=== PATIENT | female | born 1960 | race Caucasian/White ===

== ENCOUNTER 2018-07-21 08:32 | Emergency (ER) | payer BC ==
--- OUTSIDE RECORDS SUMMARY | 2018-07-21 08:48 | XMS REPORT | Clinical Summary ---
:1960 Author Organization [facility] Address [address] [place] [address] Care Team Providers Name Role Phone Joshua Garcia MD Primary Care Provider Allergies Active Allergy Reactions Severity Noted Date Comments Cephalosporins Anaphylaxis High 03/02/2016 Most likely Keflex 500mg per patient. Facial rash, hives, admitted to ICU Codeine Itching 03/02/2016 Latex 01/22/2017 blisters Eszopiclone 01/22/2017 Metallic taste in mouth, tachycardia Penicillins Rash Low 03/02/2016 Tetracycline Anaphylaxis High 03/02/2016 Current Medications Prescription Sig. Disp. Refills Start Date End Date Status zolpidem (AMBIEN) 10 mg Take 10 mg by Active tablet mouth nightly as needed for sleep. zolpidem 10 mg tablet traZODone (DESYREL) 100 Take 150 mg by Active MG tablet mouth nightly. traMADol (ULTRAM) 50 mg Take 50 mg by Active tablet mouth every 6 (six) hours as needed for moderate pain. tiotropium (SPIRIVA) 18 Place 1 capsule Active mcg per inhalation into inhaler and capsule inhale daily as needed. montelukast (SINGULAIR) Take 10 mg by Active 10 mg tablet mouth every evening. dexmethylphenidate Take 20 mg by Active (FOCALIN) 10 MG tablet mouth daily. At 2pm buPROPion XL (WELLBUTRIN Take 150 mg by Active XL) 300 MG 24 hr tablet mouth every morning. ursodiol (ACTIGALL) 300 Take 300 mg by 1 02/21/2016 Active mg capsule mouth 2 (two) times a day. ARIPiprazole (ABILIFY) 5 Take 5 mg by Active MG tablet mouth daily. clonAZEPAM (KlonoPIN) 1 Take 1 mg by Active MG tablet mouth 2 (two) times a day as needed for anxiety. dexmethylphenidate XR Take 40 mg by Active (FOCALIN XR) 40 mg 24 hr mouth every capsule morning. DULoxetine (CYMBALTA) 60 Take 60 mg by Active MG capsule mouth daily. fluticasone (FLONASE) 50 2 sprays by Each Active mcg/actuation nasal Nare route spray daily. hydroxychloroquine Take 200 mg by Active (PLAQUENIL) 200 mg mouth 2 (two) tablet times a day. levothyroxine Take 100 mcg by Active (SYNTHROID, LEVOXYL) 100 mouth every mcg tablet evening. 50mg omeprazole (PriLOSEC) 40 Take 40 mg by Active MG capsule mouth daily. sulfamethoxazole-trimeth Take 1 tablet by Active oprim (BACTRIM SS) mouth 2 (two) 400-80 mg per tablet times a day with meals. BYSTOLIC 10 mg tablet 5 mg daily. Pt 5 03/11/2017 Active was prescribed 10 mg but when pressure or heart rate is low pt takes 5 mg prazosin (MINIPRESS) 1 1 mg. 3x nightly 1 03/11/2017 Active MG capsule SODIUM OXYBATE (XYREM Take by mouth. Active ORAL) azithromycin (ZITHROMAX) Take 1 packet (1 1 packet 0 08/15/2017 1 gram powder g total) by 7 mouth once for 1 dose. hydrocortisone Insert into the 30 g 0 09/26/2017 (PROCTOZONE-HC) 2.5 % rectum 2 (two) 7 rectal cream times a day for 10 days. 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 PTSD (post-traumatic stress disorder) 03/08/2016 HLD (hyperlipidemia) 03/08/2016 Hypertension 03/02/2016 Hypothyroidism 03/02/2016 GERD (gastroesophageal reflux disease) Encounters Date Type Specialty Care Team Description 11/24/2017 Emergency Emergency Medicine 09/26/2017 Office Visit General Surgery Alagugurusamy, Internal hemorrhoids without complication (Primary Dx); Key Hickey, Condyloma acuminata INTEGRATION TECHNICIAN-C 08/15/2017 Office Visit General Surgery Ceja, Noe Internal hemorrhoids without complication (Primary Dx); MD Daniel Condyloma acuminata; Alagugurusamy, Drug-induced constipation Key Hickey, INTEGRATION TECHNICIAN-C 08/01/2017 Telephone Cardiology Carroll Avendano MA Results (holter monitor) 07/25/2017 Office Visit Cardiology Royce Escobar MD Palpitations ( Primary Dx) after 07/20/2017 Family History Medical History Relation Name Comments Drug abuse Brother Tee Tomas Cancer Father Lupillo tomas Diabetes Maternal Grandfather VERONA Depression Mother [place] COPD Paternal Grandfather Lupillo D Kevin Hypertension Paternal Grandmother Syeda Tomas Relation Name Status Comments Brother Tee Tomas Father Lupillo tomas Maternal Grandfather VERONA Mother [place] Paternal Grandfather Lupillo Evelio Kevin Paternal Grandmother Syeda Tomas Social History Tobacco Use Types Packs/Day Years Used Date Never Smoker Alcohol Use Drinks/Week oz/Week Comments No Sex Assigned at Date Recorded Not on file Last Filed Vital Signs Vital Sign Reading Time Taken Blood Pressure 159/118 11/24/2017 4:44 PM CLERICAL ADMINISTRATIVE ASSISTANT Pulse 102 11/24/2017 4:44 PM CLERICAL ADMINISTRATIVE ASSISTANT Temperature 37.1 C (98.7 F) 11/24/2017 4:44 PM CLERICAL ADMINISTRATIVE ASSISTANT Respiratory Rate 16 11/24/2017 4:44 PM CLERICAL ADMINISTRATIVE ASSISTANT Oxygen Saturation 99% 11/24/2017 4:44 PM CLERICAL ADMINISTRATIVE ASSISTANT Inhaled Oxygen Concentration - - Weight 89.8 kg (198 lb) 07/25/2017 9:12 AM CDT Height 170.2 cm (5' 7") 11/24/2017 4:44 PM CLERICAL ADMINISTRATIVE ASSISTANT Body Mass Index 31.01 07/25/2017 9:12 AM CDT Plan of Treatment Date Type Specialty Care Team Description 07/24/2018 Office Visit Cardiology Royce Escobar MD [address] [place], [place] [id number] 09/24/2018 Office Visit General Surgery Noe Ceja MD [address] [place] [address] Health Maintenance Due Date Last Done Comments COLON CANCER SCREENING 2010 SHINGRIX VACCINE (#1) 2010 BREAST CANCER SCREENING 11/10/2015 11/10/2013 CERVICAL CANCER SCREENING 11/10/2016 11/10/2013 INFLUENZA VACCINE 06/10/2018 Procedures Procedure Name Priority Date/Time Associated Comments Diagnosis ESTIMATED GFR STAT 11/24/2017 4:48 Results for this PM CLERICAL ADMINISTRATIVE ASSISTANT procedure are in the results section. PARTIAL THROMBOPLASTIN STAT 11/24/2017 4:48 Results for this TIME (PTT) PM CLERICAL ADMINISTRATIVE ASSISTANT procedure are in the results section. PROTHROMBIN TIME WITH STAT 11/24/2017 4:48 Results for this INR PM CLERICAL ADMINISTRATIVE ASSISTANT procedure are in the results section. COMPREHENSIVE METABOLIC STAT 11/24/2017 4:48 Results for this PANEL PM CLERICAL ADMINISTRATIVE ASSISTANT procedure are in the results section. HC COMPLETE BLD COUNT STAT 11/24/2017 4:48 Results for this W/AUTO DIFF PM CLERICAL ADMINISTRATIVE ASSISTANT procedure are in the results section. ECG 12-LEAD STAT 11/24/2017 4:19 Results for this PM CLERICAL ADMINISTRATIVE ASSISTANT procedure are in the results section. after 07/20/2017 Results Estimated GFR (11/24/2017 4:48 PM) GFR Non Af Amer 51 (A) mL/min/1.73 m2 [facility] DEPARTMENT OF PATHOLOGY AND GENOMIC MEDICINE GFR Af Amer 62 mL/min/1.73 m2 [facility] DEPARTMENT OF Comment: PATHOLOGY AND GENOMIC Chronic kidney disease: <60 mL/min/1.73m2 MEDICINE Kidney failure: <15 mL/min/1.73m2 The estimated GFR is calculated from the IDMS-traceable Modification of Diet in Renal Disease Equation. The accuracy of the calculation is poor when the creatinine is normal. Calculated values >90 mL/min/1.73m2 are not reported. This equation has not been validated in children (<18 years), women, the elderly (>70 years), or ethnic groups other than Caucasians and Americans. Specimen Plasma specimen Performing Organization Address City/[facility] Phone Number [facility] DEPARTMENT OF PATHOLOGY AND [address] [place] [address] Partial thromboplastin time, activated (11/24/2017 4:48 PM) PTT 27.9 23.0 - 36.0 sec [facility] DEPARTMENT OF PATHOLOGY Comment: AND [facility] PTT therapeutic range for unfractionated heparin is 61.0-112.0 seconds which corresponds to Anti-Xa 0.3-0.7 U/ml. Specimen Blood Performing Organization Address City/[facility] Phone Number [facility] DEPARTMENT OF PATHOLOGY AND [address] [place], [place] [phone] [facility] Prothrombin time with INR (11/24/2017 4:48 PM) Prothrombin time 13.5 12.0 - 15.0 sec [facility] DEPARTMENT OF PATHOLOGY AND GENOMIC MEDICINE INR 1.0 [facility] DEPARTMENT OF Comment: PATHOLOGY AND GENOMIC The International Normalized Ratio (INR) is a therapeutic MEDICINE monitoring tool for patients who are stable on oral anticoagulant therapy. An INR of 2.0-3.0 is suggested for deep vein thrombosis/pulmonary embolism. Specimen Blood Performing Organization Address [facility] Phone Number [facility] DEPARTMENT OF PATHOLOGY AND [address] [place] [address] CBC with platelet and differential (11/24/2017 4:48 PM) WBC 7.59 4.50 - 11.00 k/uL [facility] DEPARTMENT OF PATHOLOGY AND GENOMIC MEDICINE RBC 4.24 4.20 - 5.50 m/uL [facility] DEPARTMENT OF PATHOLOGY AND GENOMIC MEDICINE HGB 13.4 12.0 - 16.0 g/dL [facility] DEPARTMENT OF PATHOLOGY AND GENOMIC MEDICINE HCT 40.0 37.0 - 47.0 % [facility] DEPARTMENT OF PATHOLOGY AND GENOMIC MEDICINE MCV 94.3 82.0 - 100.0 fL [facility] DEPARTMENT OF PATHOLOGY AND GENOMIC MEDICINE MCH 31.6 27.0 - 34.0 pg [facility] DEPARTMENT OF PATHOLOGY AND GENOMIC MEDICINE MCHC 33.5 31.0 - 37.0 g/dL [facility] DEPARTMENT OF PATHOLOGY AND GENOMIC MEDICINE RDW - SD 42.8 37.0 - 55.0 fL [facility] DEPARTMENT OF PATHOLOGY AND GENOMIC MEDICINE MPV 10.2 8.8 - 13.2 fL [facility] DEPARTMENT OF PATHOLOGY AND GENOMIC MEDICINE Platelet count 218 150 - 400 k/uL [facility] DEPARTMENT OF PATHOLOGY AND GENOMIC MEDICINE Nucleated RBC 0.00 /100 WBC [facility] DEPARTMENT OF PATHOLOGY AND GENOMIC MEDICINE Neutrophils 64.2 39.0 - 69.0 % [facility] DEPARTMENT OF PATHOLOGY AND GENOMIC MEDICINE Lymphocytes 27.9 25.0 - 45.0 % [facility] DEPARTMENT OF PATHOLOGY AND GENOMIC MEDICINE Monocytes 5.3 0.0 - 10.0 % [facility] DEPARTMENT OF PATHOLOGY AND GENOMIC MEDICINE Eosinophils 1.1 0.0 - 5.0 % [facility] DEPARTMENT OF PATHOLOGY AND GENOMIC MEDICINE Basophils 0.7 0.0 - 1.0 % [facility] DEPARTMENT OF PATHOLOGY AND GENOMIC MEDICINE Immature granulocytes 0.8Comment: 0.0 - 1.0 % [facility] DEPARTMENT OF "Immature PATHOLOGY AND GENOMIC granulocytes" MEDICINE (promyelocytes, myelocytes, metamyelocytes) Specimen Blood Performing Organization Address City/State/Zipcode Phone Number [facility] DEPARTMENT OF PATHOLOGY [address] [address] GENOMIC MEDICINE Comprehensive metabolic panel (11/24/2017 4:48 PM) Sodium 139 135 - 148 mEq/L [facility] DEPARTMENT OF PATHOLOGY AND GENOMIC MEDICINE Potassium 3.7 3.5 - 5.0 mEq/L [facility] DEPARTMENT OF PATHOLOGY AND GENOMIC MEDICINE Chloride 96 (L) 98 - 112 mEq/L [facility] DEPARTMENT OF PATHOLOGY AND GENOMIC MEDICINE CO2 30 24 - 31 mEq/L [facility] DEPARTMENT OF PATHOLOGY AND GENOMIC MEDICINE Anion gap 13 7 - 15 mEq/L [facility] DEPARTMENT OF Comment: PATHOLOGY AND GENOMIC Starting from February , anion gap calculation MEDICINE no longer incorporates potassium. Please note the change. BUN 9 6 - 20 mg/dL [facility] DEPARTMENT OF PATHOLOGY AND GENOMIC MEDICINE Creatinine 1.1 (H) 0.5 - 0.9 mg/dL [facility] DEPARTMENT OF PATHOLOGY AND GENOMIC MEDICINE Glucose 82 65 - 99 mg/dL [facility] DEPARTMENT OF PATHOLOGY AND GENOMIC MEDICINE Calcium 9.8 8.3 - 10.2 mg/dL [facility] DEPARTMENT OF PATHOLOGY AND GENOMIC MEDICINE Protein 8.0 6.3 - 8.3 g/dL [facility] DEPARTMENT OF Comment: PATHOLOGY AND GENOMIC 4.6-7.0 g/dL MEDICINE 1 week 4.4-7.6 g/dL 7 months-1year5.1-7.3 g/dL 1-2 years5.6-7.5 g/dL >3 years6.0-8.0 g/dL 18-150 6.3-8.3 g/dL Albumin 4.1 3.5 - 5.0 g/dL [facility] DEPARTMENT OF PATHOLOGY AND GENOMIC MEDICINE A/G ratio 1.1 0.7 - 3.8 [facility] DEPARTMENT OF PATHOLOGY AND GENOMIC MEDICINE Alkaline phosphatase 122 (H) 35 - 104 U/L [facility] DEPARTMENT OF PATHOLOGY AND GENOMIC MEDICINE AST 26 10 - 35 U/L [facility] DEPARTMENT OF PATHOLOGY AND GENOMIC MEDICINE ALT 23 5 - 50 U/L [facility] DEPARTMENT OF PATHOLOGY AND GENOMIC MEDICINE Total bilirubin 0.4 0.0 - 1.2 mg/dL [facility] DEPARTMENT OF PATHOLOGY AND GENOMIC MEDICINE Specimen Plasma specimen Performing Organization Address City/[facility] Phone Number [facility] DEPARTMENT OF PATHOLOGY AND [address] [place] [address] [facility] ECG 12 lead (11/24/2017 4:19 PM) Ventricular rate 110 [facility] Atrial rate 110 [facility] [place] interval 168 [facility] QRSD interval 76 [facility] QT interval 320 [facility] QTC interval 433 [facility] P axis 1 52 [facility] QRS axis 1 17 [facility] T wave axis 34 [facility] EKG impression Sinus tachycardia-Otherwise normal ECG-In [facility] automated comparison with ECG of 14-FEB-2017 08:57,-Vent. rate has increased BY 43 BPM-Questionable change in QRS axis- Performing Organization Address City/[facility] Phone Number [facility] [place] [place] [address] [place] [address] after 07/20/2017 Insurance Payer Benefit Plan / Group Subscriber ID Type Phone Address BCBS BCBS CHOICE PPO/F[employer]ER[employer] EMPL PPO xxxxxxxxxxxx PPO Home: [id number] [phone] [address]
--- NOTE | 2018-07-21 09:42 | RAD REPORT ---
EXAM DESCRIPTION: CT - Head Brain Wo Cont - 07/21/2018 9:34 am CLINICAL HISTORY: PAIN Headache COMPARISON: No comparisons TECHNIQUE: All CT scans are performed using dose optimization technique as appropriate and may inclu de automated exposure control or mA/KV adjustment according to patient size. FINDINGS: No intracranial hemorrhage, hydrocephalus or extra-axial fluid collection.Mild generalized brain atrophy is present with mild periventricular and deep white matter chronic microvascular ische pradip changes.No areas of brain edema or evidence of midline shift. The paranasal sinuses and mastoids are clear. The calvarium is intact. IMPRESSION: No acute intracranial abnormality.
[2018-07-21 10:02] LABS: Absolute Lymphocytes (CBC) 1.4 K/uL (0.7-4.9); Absolute Monocytes 0.3 K/uL (0.1-1.3); Basophils % 0.3 % (0-1.3); Eosinophils % 0.7 % (0-4.4); Hematocrit 39.2 % (36.0-45.0); MCH 32.2 pg (27.0-35.0); MCV 94.8 fL (80-100); MPV 7.4 fL (7.6-11.3); Monocytes % 4.8 % (3.3-12.3); RBC Red Blood Cell Count 4.13 M/uL (3.86-4.86)
[2018-07-21 10:06] LABS: Protime INR 0.97
--- NOTE | 2018-07-21 10:11 | RAD REPORT ---
EXAM DESCRIPTION: Tracy Single View07/21/2018 9:59 am CLINICAL HISTORY: Chest pain COMPARISON: 2016 FINDINGS: The lungs appear clear of acute infiltrate. The heart is normal size IMPRESSION: No acute abnormalities displayed
[2018-07-21 10:18] LABS: ALT/SGPT 25 U/L (12-78); AST/SGOT 17 U/L (15-37); Albumin 3.8 g/dL (3.4-5.0); Alkaline Phosphatase 89 U/L (45-117); BUN Blood Urea Nitrogen 13 mg/dL (7-18); Bicarbonate 31 mmol/L (21-32); Bilirubin Direct 0.2 mg/dL (0-0.2); Bilirubin Total 0.5 mg/dL (0.2-1.0); CKMB Creatine Kinase MB 1.3 ng/mL (0.3-3.6); Creatine Phosphokinase 159 U/L (26-192); Glucose Level 87 mg/dL (74-106); Magnesium 2.4 mg/dL (1.8-2.4); NT PRO-BNP 22 pg/mL (<125); Potassium 4.3 mmol/L (3.5-5.1); Protein, Total 7.2 g/dL (6.4-8.2); Sodium Level 143 mmol/L (136-145); Troponin (Emerg Dept Use Only) < 0.02 ng/mL (0.0-0.045)
[2018-07-21 10:38] LABS: Urine Blood NEGATIVE (NEG); Urine Glucose NEGATIVE (NEG); Urine Protein NEGATIVE (NEG); Urine pH 8.5 (5.0-7.0)
--- NOTE | 2018-07-21 11:00 | EKG ---
Test Date: 2018-07-21 Test Time: 09:20:00 Movable [employer] Installer: RIANA MEASUREMENT RESULTS: Intervals: Rate: 64 MS: 196 QRSD: 84 QT: 390 QTc: 402 [place]: P: 57 MS: 196 QRS: 20 T: 28 INTERPRETIVE STATEMENTS: Normal sinus rhythm Normal ECG Compared to ECG 11/11/2003 16:34:00 No significant changes Electronically Signed On 07-21-18 10:59:51 CDT by Elliott Moon
--- NOTE | 2018-07-21 12:35 | RAD REPORT ---
EXAM DESCRIPTION: MRI - Brain Wo Cont - 07/21/2018 11:19 am CLINICAL HISTORY: Right numbness COMPARISON: 2011 TECHNIQUE: Axial, sagittal, and coronal magnetic resonance images of the brain were obtained. Contra st was not requested FINDINGS: No abnormal signal is present within the brain. Diffusion-weighted/ADC mapping does not reveal evidence of acute infarction. The ventricles are normal caliber. An extra-axial fluid collection is not present The sinuses and mastoids are clear. IMPRESSION: Unremarkable unenhanced brain MRI
--- NOTE | 2018-07-21 12:49 | EDPHYS ---
Physician Documentation [facility] Name: Lydia Hanson Age: 58 yrs Sex: Female : 1960 Arrival Date: 07/21/2018 Time: 08:37 Bed 6 Private MD: Joshua Garcia ED Physician Cipriano Resendez HPI: 07/21 10:00 This 58 yrs old Female presents to ER via Wheelchair with complaints of pm1 Shoulder Pain, Leg Pain, Facial Swelling. 10:00 The patient presents to the emergency department with right shoulder and right rib pm1 pain, right root pain and numbness, and right facial swelling. Onset: The symptoms/episode began/occurred this morning, at 05:00. Context: occurred at home, occurred while the patient was woke up with pain to right rib shoulder and foot. Associated signs and symptoms: Pertinent negatives: fever, headache, loss of vision, weakness, chest pain, shortness of breath. Patient's baseline: Neuro: alert and fully oriented, Motor: no deficits, Ambulation: walks without assistance, Speech: normal. The patient has not experienced similar symptoms in the past. The patient has not recently seen a physician, the patient's primary care provider is Dr. Garcia. Historical: - Allergies: 09:01 CEPHALOSPORINS; iw 09:01 TETRACYCLINES; iw 09:01 PENICILLINS; iw 09:01 Latex, Natural Rubber; iw - PMHx: 09:55 V-tach; Hypertension; Hyperlipidemia; Thyroid problem; Narcolepsy; Depression; aa5 - PSHx: 09:55 Hysterectomy; Appendectomy; Cholecystectomy; breast augmentation; Carpal Tunnel Repair; aa5 L hand; - Ebola Screening: : Patient negative for fever greater than or equal to 101.5 degrees Fahrenheit, and additional compatible Ebola Virus Disease symptoms Patient denies exposure to infectious person Patient denies travel to an Ebola-affected area in the 21 days before illness onset No symptoms or risks identified at this time. ROS: 10:00 Constitutional: Negative for fever, chills, and weight loss, Eyes: Negative for injury, pm1 pain, redness, and discharge, ENT: Negative for injury, pain, and discharge, Neck: Negative for injury, pain, and swelling, Cardiovascular: Negative for palpitations, and edema, Positive for right lateral righ pain Respiratory: Negative for shortness of breath, cough, wheezing, and pleuritic chest pain, Abdomen/GI: Negative for abdominal pain, nausea, vomiting, diarrhea, and constipation, Back: Negative for injury and pain. 10:00 : Negative for injury, bleeding, discharge, and swelling. 10:00 Skin: Negative for injury, rash, and discoloration. 10:00 MS/extremity: Positive for right foot pain. 10:00 Neuro: Positive for numbness, of the right foot. Exam: 10:00 Constitutional: This is a well developed, well nourished patient who is awake, alert, pm1 and in no acute distress. Head/Face: Normocephalic, atraumatic. Eyes: Pupils equal round and reactive to light, extra-ocular motions intact. Lids and lashes normal. Conjunctiva and sclera are non-icteric and not injected. Cornea within normal limits. Periorbital areas with no swelling, redness, or edema. 10:00 Neuro: Orientation: is normal, Mentation: is normal, Memory: is normal, Cranial nerves: CN II- XII are normal as tested, Cerebellar function: normal finger to nose testing, bilateral, heel to rondon testing is normal, bilateral, Motor: moves all fours, strength is normal, strength is 5/5 in all extremities, Sensation: is normal, no obvious gross deficits. Vital Signs: 09:00 BP 154 / 96; Pulse 64; Resp 16; Temp 98.2; Pulse Ox 100% on R/A; Pain 5/10; iw 10:39 BP 139 / 81; Pulse 63; Resp 16; Pulse Ox 100% on R/A; Pain 5/10; sg 12:06 BP 130 / 79; Pulse 62; Resp 20 S; Pulse Ox 98% on R/A; Pain 3/10; aa5 NIH Stroke Scale Scores: 09:12 NIHSS Score: 1 aa5 10:00 NIHSS Score: 0 pm1 MDM: 08:53 Patient medically screened. pm1 12:45 ED course: Patient was not administered TPA due to patient not having a CVA. Patient pm1 presented to ER after 3 hours of onset of symptoms. 12:47 Data reviewed: vital signs. Data interpreted: Pulse oximetry: on room air is 98 %. pm1 Interpretation: normal. Counseling: I had a detailed discussion with the patient and/or guardian regarding: the historical points, exam findings, and any diagnostic results supporting the discharge/admit diagnosis, lab results, radiology results, the need for outpatient follow up, to return to the emergency department if symptoms worsen or persist or if there are any questions or concerns that arise at home. 07/21 09:10 Order name: Basic Metabolic Panel pm07/21 09:10 Order name: CBC with Diff pm1 07/21 09:10 Order name: Ckmb; Complete Time: 10:20 pm07/21 09:10 Order name: CPK; Complete Time: 10:20 pm07/21 09:10 Order name: LFT's; Complete Time: 10:20 pm07/21 09:10 Order name: Magnesium; Complete Time: 10:20 pm07/21 09:10 Order name: NT PRO-BNP; Complete Time: 10:20 pm07/21 09:10 Order name: PT-INR; Complete Time: 10:20 pm07/21 09:10 Order name: Ptt, Activated; Complete Time: 10:20 pm07/21 09:10 Order name: Troponin (emerg Dept Use Only); Complete Time: 10:20 pm07/21 09:10 Order name: XRAY Chest (1 view); Complete Time: 10:20 pm07/21 09:10 Order name: Basic Metabolic Panel; Complete Time: 10:20 EDMS 07/21 09:10 Order name: CBC with Automated Diff; Complete Time: 10:20 EDMS 07/21 10:12 Order name: Urine Dipstick--Ancillary (enter results); Complete Time: 10:49 bd 07/21 09:10 Order name: EKG; Complete Time: :11 pm07/21 09:10 Order name: Cardiac monitoring; Complete Time: 09:12 pm07/21 09:10 Order name: EKG - Nurse/Tech; Complete Time: :22 pm07/21 09:10 Order name: IV Saline Lock; Complete Time: :30 pm07/21 09:10 Order name: Labs collected and sent; Complete Time: 09:30 pm1 07/21 09:10 Order name: O2 Per Protocol; Complete Time: 09:12 pm07/21 09:10 Order name: O2 Sat Monitoring; Complete Time: :12 pm07/21 09:10 Order name: Urine Dipstick-Ancillary (obtain specimen); Complete Time: 10:33 pm1 07/21 09:10 Order name: CT Head Brain wo Cont; Complete Time: 09:59 pm1 07/21 11:09 Order name: Brain Wo Cont; Complete Time: 12:36 EDMS Administered Medications: No medications were administered Disposition: 07/22 06:52 Co-signature as Attending Physician, Cipriano Resendez MD I agree with the assessment and danilo plan of care. Disposition: 07/21/18 12:48 Discharged to Home. Impression: Paresthesia of skin. - Condition is Stable. - Discharge Instructions: Paresthesia. - Medication Reconciliation Form, Thank You Letter, Antibiotic Education form. - Follow up: Emergency Department; When: As needed; Reason: Worsening of condition. Follow up: Private Physician; When: 2 - 3 days; Reason: Recheck today's complaints, Continuance of care, Re-evaluation by your physician. - Problem is new. - Symptoms have improved. NIH Stroke Scale - NIH Stroke Score Date: 07/21/2018 Time: 09:12 Total Score = 1 1a. Level of Consciousness (LOC) - 0(Alert) 1b. Level of Consciousness (LOC) (Year \T\ Age) - 0(Both) 1c. LOC Commands (Open \T\ Closes Eyes/Tandem Mill Sticker) - 0(Both) 2. Best Gaze (Lateral Gaze Paresis) - 0(Normal) 3. Visual Field Loss - 0(No visual loss) 4. Facial Palsy - 0(Normal) 5a. Left Arm: Motor (10-second hold) - 0(No drift) 5b. Right Arm: Motor (10-second hold) - 0(No drift) 6a. Left Leg: Motor (5-second hold - always test supine) - 0(No drift) 6b. Right Leg: Motor (5-second hold - always test supine) - 0(No drift) 7. Limb Ataxia (finger/nose \T\ heel/rondon - test with eyes open) - 0(Absent) 8. Sensory Loss (pinprick arms/legs/face) - 1(Mild to moderate loss) 9. Best Language: Aphasia (description/naming/reading) - 0(No aphasia) 10. Dysarthria (speech clarity - read or repeat words) - 0(Normal) 11. Extinction and Inattention (visual/tactile/auditory/spatial/personal) - 0(No abnormality) Initials: aa5 NIH Stroke Scale - NIH Stroke Score Date: 07/21/2018 Time: 10:00 Total Score = 0 1a. Level of Consciousness (LOC) - 0(Alert) 1b. Level of Consciousness (LOC) (Year \T\ Age) - 0(Both) 1c. LOC Commands (Open \T\ Closes Eyes/Tandem Mill Sticker) - 0(Both) 2. Best Gaze (Lateral Gaze Paresis) - 0(Normal) 3. Visual Field Loss - 0(No visual loss) 4. Facial Palsy - 0(Normal) 5a. Left Arm: Motor (10-second hold) - 0(No drift) 5b. Right Arm: Motor (10-second hold) - 0(No drift) 6a. Left Leg: Motor (5-second hold - always test supine) - 0(No drift) 6b. Right Leg: Motor (5-second hold - always test supine) - 0(No drift) 7. Limb Ataxia (finger/nose \T\ heel/rondon - test with eyes open) - 0(Absent) 8. Sensory Loss (pinprick arms/legs/face) - 0(Normal) 9. Best Language: Aphasia (description/naming/reading) - 0(No aphasia) 10. Dysarthria (speech clarity - read or repeat words) - 0(Normal) 11. Extinction and Inattention (visual/tactile/auditory/spatial/personal) - 0(No abnormality) Initials: pm1 Signatures: Dispatcher [employer] [facility] Valerie Andrews RN RN dm5 Cipriano Resendez MD MD cha Williams, Irene, RN RN iw Calderon, Audri, RN RN aa5 Baljeet De La Rosa, TREV ENVIRONMENTAL SCIENCE PROFESSOR pm1 Corrections: (The following items were deleted from the chart) 07/21 10:33 09:10 Urine Test ordered. pm1 aa5 11:09 10:25 MR STROKE PROTOCOL+MRI.RAD.SPENCER ordered. [facility] 13:23 12:48 07/21/2018 12:48 Discharged to Home. Impression: Paresthesia of skin. dm5 Condition is Stable. Forms are Medication Reconciliation Form, Thank You Letter, Antibiotic Education, Prescription Opioid Use. Follow up: Emergency Department; When: As needed; Reason: Worsening of condition. Follow up: Private Physician; When: 2 - 3 days; Reason: Recheck today's complaints, Continuance of care, Re-evaluation by your physician. Problem is new. Symptoms have improved. pm1
--- NOTE | 2018-07-21 12:49 | ER ---
Nurse's Notes [facility] Name: Lydia Hanson Age: 58 yrs Sex: Female : 1960 Arrival Date: 07/21/2018 Time: 08:37 Bed 6 Private MD: Joshua Garcia Diagnosis: Paresthesia of skin Presentation: 07/21 08:56 Presenting complaint: Patient states: woke up with pain to right shoulder blade, pain iw radiates to right ribs, felt like she couldn't breathe, pain moved to right leg and bottom of her foot felt numb, also feel like her right side of her face is swollen and droopy, also had midsternal chest pain that has gotten better, pt states she has hx of Vtach, states her watch showed that her HR was up to 170s this morning. HR=64 SR on monitor. Transition of care: patient was not received from another setting of care. Onset of symptoms was July 21, 2018. Risk Assessment: Do you want to hurt yourself or someone else? Patient reports no desire to harm self or others. Initial Sepsis Screen: Does the patient meet any 2 criteria? No. Patient's initial sepsis screen is negative. Does the patient have a suspected source of infection? No. Patient's initial sepsis screen is negative. Care prior to arrival: None. 08:56 Method Of Arrival: Wheelchair iw 08:56 Acuity: RIA 3 iw Historical: - Allergies: 09:01 CEPHALOSPORINS; iw 09:01 TETRACYCLINES; iw 09:01 PENICILLINS; iw 09:01 Latex, Natural Rubber; iw - PMHx: 09:55 V-tach; Hypertension; Hyperlipidemia; Thyroid problem; Narcolepsy; Depression; aa5 - PSHx: 09:55 Hysterectomy; Appendectomy; Cholecystectomy; breast augmentation; Carpal Tunnel Repair; aa5 L hand; - Ebola Screening: : Patient negative for fever greater than or equal to 101.5 degrees Fahrenheit, and additional compatible Ebola Virus Disease symptoms Patient denies exposure to infectious person Patient denies travel to an Ebola-affected area in the 21 days before illness onset No symptoms or risks identified at this time. Screenin:12 Abuse screen: Denies threats or abuse. Nutritional screening: No deficits noted. aa5 Tuberculosis screening: No symptoms or risk factors identified. Fall Risk None identified. Assessment: 09:12 General: Appears comfortable, Behavior is calm, cooperative. Pain: Complains of pain in aa5 right shoulder, right hip and mid-sternal area Pain currently is 5 out of 10 on a pain scale. Pain began Pt states "I woke up with the pain" Is continuous. Neuro: Level of Consciousness is awake, alert, obeys commands, Oriented to person, place, time, situation, Appropriate for age Bulk System Operator are equal bilaterally Moves all extremities. Speech is normal, Facial symmetry appears normal, Pupils are PERRLA, Pt reports numbness to bottom of right foot, pt denies numbness or tingling to arms or legs. Pt states "my right leg just feels weird you touch it and the right side of my face as well". Pt states "I woke up and saw that the right side of my face is droopy". . Denies weakness dizziness, headache. Cardiovascular: Reports chest pain, Heart tones S1 S2 present Rhythm is sinus rhythm. Respiratory: Reports cough that is non-productive, since 3 days ago. Pt reports SOB when she woke up today, currently denies SOB. Airway is patent Respiratory effort is even, unlabored, Respiratory pattern is regular, symmetrical, Breath sounds are clear bilaterally. GI: Abdomen is round non-distended, Bowel sounds present X 4 quads. Abd is soft and non tender X 4 quads. Patient currently denies nausea, vomiting. : No signs and/or symptoms were reported regarding the genitourinary system. EENT: No signs and/or symptoms were reported regarding the EENT system. Derm: Skin is pink, warm \\T\\ dry. Musculoskeletal: Range of motion: intact in all extremities. 10:12 Reassessment: Patient and/or family updated on plan of care and expected duration. Pain aa5 level reassessed. Patient is alert, oriented x 3, equal unlabored respirations, skin warm/dry/pink. Patient states symptoms have not improved. Pain: Pain currently is 5 out of 10 on a pain scale. 10:12 Cardiovascular: Rhythm is sinus rhythm. aa5 10:45 Reassessment: Patient is alert, oriented x 3, equal unlabored respirations, skin aa5 warm/dry/pink. Pt taken to MRI . 12:00 Reassessment: Patient and/or family updated on plan of care and expected duration. Pain aa5 level reassessed. Patient is alert, oriented x 3, equal unlabored respirations, skin warm/dry/pink. Patient states feeling better. Pain: Pain currently is 3 out of 10 on a pain scale. Cardiovascular: Rhythm is sinus rhythm. 13:20 Reassessment: Patient is alert, oriented x 3, equal unlabored respirations, skin aa5 warm/dry/pink. Vital Signs: 09:00 BP 154 / 96; Pulse 64; Resp 16; Temp 98.2; Pulse Ox 100% on R/A; Pain 5/10; iw 10:39 BP 139 / 81; Pulse 63; Resp 16; Pulse Ox 100% on R/A; Pain 5/10; sg 12:06 BP 130 / 79; Pulse 62; Resp 20 S; Pulse Ox 98% on R/A; Pain 3/10; aa5 NIH Stroke Scale Scores: 09:12 NIHSS Score: 1 aa5 10:00 NIHSS Score: 0 pm1 ED Course: 08:37 Patient arrived in ED. mr 08:37 Joshua Garcia MD is Private Physician. mr 08:51 Baljeet De La Rosa NP is PHCP. pm1 08:51 Cipriano Resendez MD is Attending Physician. pm1 09:00 Triage completed. iw 09:00 Arm band placed on. iw 09:08 Michelle Arauz, MARITA is Primary Nurse. aa5 09:10 Patient has correct armband on for positive identification. Placed in gown. Bed in low aa5 position. Call light in reach. Side rails up X2. playground monitor on. Pulse ox on. NIBP on. 09:10 Initial lab(s) drawn, by co, sent to lab. Inserted saline lock: 20 gauge in right aa5 antecubital area, using aseptic technique. Blood collected. 09:24 EKG done, by environmental engineering technician. reviewed by Baljeet De La Rosa NP. at1 09:32 CT completed. Patient tolerated procedure well. Patient moved to CT via stretcher. jg6 Patient moved back from CT. 09:34 CT Head Brain wo Cont In Process Unspecified. EDMS 09:55 X-ray completed. Portable x-ray completed in exam room. jr1 09:57 XRAY Chest (1 view) In Process Unspecified. EDMS 10:38 Urine collected: clean catch specimen, clear, sabine colored. jb1 10:45 Patient moved to MRI. sg 11:09 Brain Wo Cont In Process Unspecified. EDMS 11:18 MRI completed. Patient tolerated well. Patient moved back from MRI. em2 12:35 Basic Metabolic Panel Sent. dm5 12:35 CBC with Diff Sent. dm5 13:22 No provider procedures requiring assistance completed. IV discontinued, intact, dm5 bleeding controlled, No redness/swelling at site. Pressure dressing applied. Administered Medications: No medications were administered Outcome: 12:48 Discharge ordered by MD. pm1 13:20 Discharged to home ambulatory, with family. aa5 13:20 Condition: stable 13:20 Discharge instructions given to patient, Instructed on discharge instructions, follow up and referral plans. Demonstrated understanding of instructions, follow-up care. 13:23 Patient left the ED. dm5 NIH Stroke Scale - NIH Stroke Score Date: 07/21/2018 Time: 09:12 Total Score = 1 1a. Level of Consciousness (LOC) - 0(Alert) 1b. Level of Consciousness (LOC) (Year \\T\\ Age) - 0(Both) 1c. LOC Commands (Open \\T\\ Closes Eyes/Solution Engineer) - 0(Both) 2. Best Gaze (Lateral Gaze Paresis) - 0(Normal) 3. Visual Field Loss - 0(No visual loss) 4. Facial Palsy - 0(Normal) 5a. Left Arm: Motor (10-second hold) - 0(No drift) 5b. Right Arm: Motor (10-second hold) - 0(No drift) 6a. Left Leg: Motor (5-second hold - always test supine) - 0(No drift) 6b. Right Leg: Motor (5-second hold - always test supine) - 0(No drift) 7. Limb Ataxia (finger/nose \\T\\ heel/rondon - test with eyes open) - 0(Absent) 8. Sensory Loss (pinprick arms/legs/face) - 1(Mild to moderate loss) 9. Best Language: Aphasia (description/naming/reading) - 0(No aphasia) 10. Dysarthria (speech clarity - read or repeat words) - 0(Normal) 11. Extinction and Inattention (visual/tactile/auditory/spatial/personal) - 0(No abnormality) Initials: aa5 NIH Stroke Scale - NIH Stroke Score Date: 07/21/2018 Time: 10:00 Total Score = 0 1a. Level of Consciousness (LOC) - 0(Alert) 1b. Level of Consciousness (LOC) (Year \\T\\ Age) - 0(Both) 1c. LOC Commands (Open \\T\\ Closes Eyes/Solution Engineer) - 0(Both) 2. Best Gaze (Lateral Gaze Paresis) - 0(Normal) 3. Visual Field Loss - 0(No visual loss) 4. Facial Palsy - 0(Normal) 5a. Left Arm: Motor (10-second hold) - 0(No drift) 5b. Right Arm: Motor (10-second hold) - 0(No drift) 6a. Left Leg: Motor (5-second hold - always test supine) - 0(No drift) 6b. Right Leg: Motor (5-second hold - always test supine) - 0(No drift) 7. Limb Ataxia (finger/nose \\T\\ heel/rondon - test with eyes open) - 0(Absent) 8. Sensory Loss (pinprick arms/legs/face) - 0(Normal) 9. Best Language: Aphasia (description/naming/reading) - 0(No aphasia) 10. Dysarthria (speech clarity - read or repeat words) - 0(Normal) 11. Extinction and Inattention (visual/tactile/auditory/spatial/personal) - 0(No abnormality) Initials: pm1 Signatures: Dispatcher [employer] Drew Molina jb1 Valerie Andrews, MARITA KIRKLAND dm5 Kevan Quiñones, RN RN sg Florence Raines mr Tez, Gissel jr1 Graciela Jackson, Michelle Galvez RN, RN RN aa5 Gomez Rose em2 Emilie Benoit, ict teacher EKG Tat1 Baljeet De La Rosa, TREV ASSISTANT PURCHASING MANAGER pm1 Lolly Markham6
[2018-07-21 13:39] VITALS: TEMP 98.2
[2018-07-21 13:43] VITALS: BP 130/79; O2SAT 98
== END 2018-07-21 13:23 | disposition home or self-care (01) ==
LOC: ER 08:32
DX: R20.2 Paresthesia of skin (principal); I10 Essential (primary) hypertension; Z88.0 Allergy status to penicillin; Z88.3 Allergy status to other anti-infective agents; Z91.040 Latex allergy status; Z91.048 Other nonmedicinal substance allergy status; Z98.82 Breast implant status
CPT/HCPCS: 36415; 70450; 70551; 71045; 80048; 80076; 81003; 82550; 82553; 83735; 83880; 84484; 85025; 85610; 85730; 93005; 99285

== ENCOUNTER 2018-08-10 11:01 | Observation (INO) | payer BC ==
--- OUTSIDE RECORDS SUMMARY | 2018-08-10 11:05 | XMS REPORT | Clinical Summary ---
:1960 Author Organization [facility] Address [address] [place] [address] Care Team Providers Name Role Phone Joshua [...] Current Medications Prescription Sig. Disp. Refills Start End Date Status Date zolpidem (AMBIEN) 10 mg Take 10 mg by Active tablet mouth nightly as needed for sleep. zolpidem 10 mg tablet tiotropium (SPIRIVA) 18 Place 1 capsule Active mcg per inhalation into inhaler capsule and inhale daily as needed. montelukast (SINGULAIR) Take 10 mg by Active 10 mg tablet mouth every evening. ursodiol (ACTIGALL) 300 Take 300 mg by 1 Active mg capsule mouth 2 (two) 6 times a day. ARIPiprazole (ABILIFY) Take 5 mg by Active 5 MG tablet mouth daily. clonAZEPAM (KlonoPIN) 1 Take 1 mg by Active MG tablet mouth 2 (two) times a day as needed for anxiety. dexmethylphenidate XR Take 40 mg by Active (FOCALIN XR) 40 mg 24 mouth every hr capsule morning. DULoxetine (CYMBALTA) Take 60 mg by Active 60 MG capsule mouth daily. hydroxychloroquine Take 200 mg by Active (PLAQUENIL) 200 mg mouth 2 (two) tablet times a day. omeprazole (PriLOSEC) Take 40 mg by Active 40 MG capsule mouth daily. BYSTOLIC 10 mg tablet 5 mg daily. Pt 5 Active was prescribed 7 10 mg but when pressure or heart rate is low pt takes 5 mg prazosin (MINIPRESS) 1 1 mg. 3x 1 Active MG capsule nightly 7 SODIUM OXYBATE (XYREM Take by mouth. Active ORAL) valsartan-hydrochloroth Take 1 tablet 3 Active iazide (DIOVAN-HCT) by mouth daily. 8 80-12.5 mg per tablet CRESTOR 5 mg tablet Take 5 mg by 3 Active mouth daily. 8 levothyroxine Take 50 mcg by 6 Active (SYNTHROID, LEVOXYL) 50 mouth daily. 8 mcg tablet DULoxetine (CYMBALTA) Take 90 mg by 2 Active 30 MG capsule mouth daily. 8 dexmethylphenidate XR TAKE 1 CAPSULE 0 Active (FOCALIN XR) 20 MG 24 BY MOUTH EVERY 8 hr capsule AFTERNOON RESTASIS MULTIDOSE 0.[address] 1 DROP IN 11 Active % drops EACH EYE TWICE 8 DAILY buPROPion XL TAKE 1 TABLET 2 Active (WELLBUTRIN XL) 150 MG BY MOUTH EACH 8 24 hr tablet MORNING. traZODone (DESYREL) 100 Take 150 mg by 07/31/20 Discontinued MG tablet mouth nightly. 18 traMADol (ULTRAM) 50 mg Take 50 mg by 07/31/20 Discontinued tablet mouth every 6 18 (six) hours as needed for moderate pain. dexmethylphenidate Take 20 mg by 07/31/20 Discontinued (FOCALIN) 10 MG tablet mouth daily. At 18 2pm buPROPion XL Take 150 mg by 07/31/20 Discontinued (WELLBUTRIN XL) 300 MG mouth every 18 24 hr tablet morning. fluticasone (FLONASE) 2 sprays by 07/31/20 Discontinued 50 mcg/actuation nasal Each Nare route 18 spray daily. levothyroxine Take 100 mcg by 07/31/20 Discontinued (SYNTHROID, LEVOXYL) mouth every 18 100 mcg tablet evening. 50mg sulfamethoxazole-trimet Take 1 tablet 07/31/20 Discontinued hoprim (BACTRIM SS) by mouth 2 18 400-80 mg per tablet (two) times a day with meals. azithromycin Take 1 packet 1 packet 0 08/15/20 (ZITHROMAX) 1 gram (1 g total) by 7 17 powder mouth once for 1 dose. hydrocortisone Insert into the 30 g 0 10/06/20 (PROCTOZONE-HC) 2.5 % rectum 2 (two) 7 17 rectal cream times a day for 10 days. 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+ Under the a=care of Dr Ceja Chronic kidney disease, stage III (moderate) (HCC) 03/08/2016 Gastroparesis 03/08/2016 Major depressive disorder, recurrent episode, moderate (HCC) 03/08/2016 Overview: Depression for most of her [...] Encounters Date Type Specialty Care Team Description 07/31/2018 Office Visit Cardiology Royce Escobar MD Essential hypertension (Primary Dx); Palpitations 11/24/2017 Emergency Emergency Medicine 09/26/2017 Office Visit General Surgery Alagugurusamy, Internal hemorrhoids without complication (Primary Dx); Key Hickey, Condyloma acuminata CYCLE REPAIRER-C 08/15/2017 Office Visit General Surgery Noe Ceja Internal hemorrhoids without complication (Primary Dx); MD Daniel Condyloma acuminata; Alagugurusamy, Drug-induced constipation Key Hickey NP-C after 08/09/2017 Family History Medical History Relation Name Comments Drug abuse Brother Tee Tomas Cancer Father Lupillo tomas Diabetes Maternal Grandfather VERONA Depression Mother [place] COPD Paternal Grandfather Lupillo Tomas Hypertension Paternal Grandmother Syeda Tomas Relation Name Status Comments Brother Tee Tomas Father Lupillo tomas Maternal Grandfather VERONA Mother [place] Paternal Grandfather Lupillo Tomas Paternal Grandmother Syeda Tomas Social History Tobacco Use Types Packs/Day Years Used Date Never Smoker Smokeless Tobacco: Never Used Alcohol Use Drinks/Week oz/Week Comments No Sex Assigned at Date Recorded Not on file Last Filed Vital Signs Vital Sign Reading Time Taken Blood Pressure 137/63 07/31/2018 9:58 AM CDT Pulse 64 07/31/2018 9:58 AM CDT Temperature 37.1 C (98.7 F) 11/24/2017 4:44 PM [employer]M BUILDING SUPER[employer]OR Respiratory Rate 18 07/31/2018 9:58 AM CDT Oxygen Saturation 99% 11/24/2017 4:44 PM [employer]M BUILDING SUPERVISOR Inhaled Oxygen Concentration - - Weight 85.7 kg (189 lb) 07/31/2018 9:58 AM CDT Height 170.2 cm (5' 7") 07/31/2018 9:58 AM CDT Body Mass Index 29.6 07/31/2018 9:58 AM CDT Plan of Treatment Date Type Specialty Care Team Description 09/24/2018 Office Visit General Surgery Noe Ceja MD [address] [address] Health Maintenance Due Date Last Done Comments COLON CANCER SCREENING 2010 SHINGRIX VACCINE (#1) 2010 BREAST CANCER SCREENING 11/10/2015 11/10/2013 CERVICAL CANCER SCREENING 11/10/2016 11/10/2013 INFLUENZA VACCINE 06/10/2018 Procedures Procedure Name Priority Date/Time Associated Diagnosis Comments ECG 12-LEAD Routine 07/31/2018 9:50 Essential Results for this AM CDT hypertension procedure are in the results section. ZZESTIMATED GFR STAT 11/24/2017 4:48 Results for this PM [employer] BUILDING [employer]PERVISOR procedure are in the results section. PARTIAL THROMBOPLASTIN STAT 11/24/2017 4:48 Results for this TIME (PTT) PM [employer]M BUILDING SUPERVISOR procedure are in the results section. PROTHROMBIN TIME WITH STAT 11/24/2017 4:48 Results for this INR PM [employer]M BUILDING SUPERVISOR procedure are in the results section. COMPREHENSIVE STAT 11/24/2017 4:48 Results for this METABOLIC PANEL PM [employer]M BUILDING SUPERVISOR procedure are in the results section. HC COMPLETE BLD COUNT STAT 11/24/2017 4:48 Results for this W/AUTO DIFF PM [employer]M BUILDING SUPERVISOR procedure are in the results section. ECG 12-LEAD STAT 11/24/2017 4:19 Results for this PM [employer]M BUILDING SUPERVISOR procedure are in the results section. after 08/09/2017 Results ECG 12 lead (07/31/2018 9:50 AM)Only the most recent of2 resultswithin the time period is included. Ventricular rate 62 [facility] Atrial rate 62 [facility] TN interval 200 [facility] QRSD interval 84 [facility] QT interval 390 [facility] QTC interval 395 [facility] P axis 1 73 [facility] QRS axis 1 70 [facility] T wave axis 68 [facility] EKG impression Normal sinus rhythm-Normal ECG-In automated [facility] MUSE comparison with ECG of 24-NOV-2017 16:19,-Vent. rate has decreased BY 48 BPM- Performing Organization Address City/[facility] Phone Number [facility] MUSE [address] [place] [address] Estimated GFR (11/24/2017 4:48 PM) GFR Non Af Amer 51 (A) mL/min/1.73 m2 [facility] DEPARTMENT OF PATHOLOGY AND GENOMIC MEDICINE GFR Af Amer 62 mL/min/1.73 m2 [facility] DEPARTMENT OF Comment: PATHOLOGY AND GENOMIC [...] Americans. Specimen Plasma specimen Performing Organization Address City/[facility]/Zipcode Phone Number [facility] DEPARTMENT OF PATHOLOGY AND [address] [place] [address] [facility] Partial thromboplastin time, activated (11/24/2017 4:48 PM) PTT 27.9 23.0 - 36.0 sec [facility] DEPARTMENT OF PATHOLOGY Comment: AND GENOMIC MEDICINE PTT therapeutic range for unfractionated heparin is 61.0-112.0 seconds which corresponds to Anti-Xa 0.3-0.7 U/ml. Specimen Blood Performing Organization Address [facility]ode Phone Number [facility] DEPARTMENT OF PATHOLOGY AND [address] [place] [address] Prothrombin time with INR (11/24/2017 4:48 PM) Prothrombin time 13.5 12.0 - 15.0 sec [facility] DEPARTMENT OF PATHOLOGY AND GENOMIC MEDICINE INR 1.0 [facility] DEPARTMENT OF Comment: PATHOLOGY AND GENOMIC The International Normalized Ratio (INR) is a therapeutic MEDICINE monitoring tool for patients who are stable on oral anticoagulant therapy. An INR of 2.0-3.0 is suggested for deep vein thrombosis/pulmonary embolism. Specimen Blood Performing Organization Address [facility] Phone Number [facility] OF PATHOLOGY AND [address] [place] [address] CBC with platelet and differential (11/24/2017 4:48 PM) WBC 7.59 4.50 - 11.00 k/uL [facility] DEPARTMENT OF PATHOLOGY AND GENOMIC MEDICINE RBC 4.24 4.20 - 5.50 m/uL [facility] DEPARTMENT OF PATHOLOGY AND GENOMIC MEDICINE HGB 13.4 12.0 - 16.0 g/dL [facility] DEPARTMENT OF PATHOLOGY AND GENOMIC MEDICINE HCT 40.0 37.0 - 47.0 % [facility] DEPARTMENT OF PATHOLOGY AND GENOMIC MEDICINE MCV 94.3 82.0 - 100.0 fL [facility] DEPARTMENT OF PATHOLOGY AND GENOMIC MEDICINE MCH 31.6 27.0 - 34.0 pg [facility] DEPARTMENT OF PATHOLOGY AND GENOMIC MEDICINE MCHC 33.5 31.0 - 37.0 g/dL [facility] DEPARTMENT OF PATHOLOGY AND GENOMIC MEDICINE RDW - SD 42.8 37.0 - 55.0 fL [facility] DEPARTMENT OF PATHOLOGY AND GENOMIC MEDICINE MPV 10.2 8.8 - 13.2 fL [facility] DEPARTMENT OF PATHOLOGY AND GENOMIC MEDICINE Platelet count 218 150 - 400 k/uL [facility] DEPARTMENT OF PATHOLOGY AND GENOMIC MEDICINE Nucleated RBC 0.00 /100 WBC [facility] DEPARTMENT OF PATHOLOGY AND GENOMIC MEDICINE Neutrophils 64.2 39.0 - 69.0 % [facility] DEPARTMENT OF PATHOLOGY AND GENOMIC MEDICINE Lymphocytes 27.9 25.0 - 45.0 % [facility] DEPARTMENT OF PATHOLOGY AND GENOMIC MEDICINE Monocytes 5.3 0.0 - 10.0 % [facility] DEPARTMENT OF PATHOLOGY AND GENOMIC MEDICINE Eosinophils 1.1 0.0 - 5.0 % [facility] DEPARTMENT OF PATHOLOGY AND GENOMIC MEDICINE Basophils 0.7 0.0 - 1.0 % [facility] DEPARTMENT OF PATHOLOGY AND GENOMIC MEDICINE Immature granulocytes 0.8Comment: 0.0 - 1.0 % [facility] DEPARTMENT OF "Immature PATHOLOGY AND GENOMIC granulocytes" MEDICINE (promyelocytes, myelocytes, metamyelocytes) Specimen Blood Performing Organization Address City/State/Zipcode Phone Number [facility] DEPARTMENT OF PATHOLOGY AND [address] [place] [address] GENOMIC MEDICINE Comprehensive metabolic panel (11/24/2017 4:48 PM) Sodium 139 135 - 148 mEq/L [facility] DEPARTMENT OF PATHOLOGY AND GENOMIC MEDICINE Potassium 3.7 3.5 - 5.0 mEq/L [facility] DEPARTMENT OF PATHOLOGY AND GENOMIC MEDICINE Chloride 96 (L) 98 - 112 mEq/L [facility] DEPARTMENT OF PATHOLOGY AND GENOMIC MEDICINE CO2 30 24 - 31 mEq/L [facility] DEPARTMENT OF PATHOLOGY AND GENOMIC MEDICINE Anion gap 13 7 - 15 mEq/L [facility] DEPARTMENT OF Comment: PATHOLOGY AND GENOMIC Starting from February , anion gap calculation MEDICINE no longer incorporates potassium. Please note the change. BUN 9 6 - 20 mg/dL [facility] DEPARTMENT OF PATHOLOGY AND GENOMIC MEDICINE Creatinine 1.1 (H) 0.5 - 0.9 mg/dL [facility] DEPARTMENT OF PATHOLOGY AND GENOMIC MEDICINE Glucose 82 65 - 99 mg/dL [facility] DEPARTMENT OF PATHOLOGY AND GENOMIC MEDICINE Calcium 9.8 8.3 - 10.2 mg/dL [facility] DEPARTMENT OF PATHOLOGY AND GENOMIC MEDICINE Protein 8.0 6.3 - 8.3 g/dL [facility] DEPARTMENT OF Comment: PATHOLOGY AND GENOMIC 4.6-7.0 g/dL MEDICINE 1 week 4.4-7.6 g/dL 7 months-1year5.1-7.3 g/dL 1-2 years5.6-7.5 g/dL >3 years6.0-8.0 g/dL 18-150 6.3-8.3 g/dL Albumin 4.1 3.5 - 5.0 g/dL [facility] DEPARTMENT OF PATHOLOGY AND GENOMIC MEDICINE A/G ratio 1.1 0.7 - 3.8 [facility] DEPARTMENT OF PATHOLOGY AND GENOMIC MEDICINE Alkaline phosphatase 122 (H) 35 - 104 U/L [facility] DEPARTMENT OF PATHOLOGY AND GENOMIC MEDICINE AST 26 10 - 35 U/L [facility] DEPARTMENT OF PATHOLOGY AND GENOMIC MEDICINE ALT 23 5 - 50 U/L [facility] DEPARTMENT OF PATHOLOGY AND GENOMIC MEDICINE Total bilirubin 0.4 0.0 - 1.2 mg/dL [facility] DEPARTMENT OF PATHOLOGY AND GENOMIC MEDICINE Specimen Plasma specimen Performing Organization Address City/State/Zipcode Phone Number [facility] DEPARTMENT OF PATHOLOGY AND [address] [place] [id number] [employer] MEDICINE after 08/09/2017 Insurance Payer Benefit Plan / Group Subscriber ID Type Phone Address BCBS BCBS CHOICE PPO/FEDERAL EMPL PPO xxxxxxxxxxxx PPO Home: [id number] [phone] [address]
[2018-08-10] MEDS ORDERED: LEVALBUTEROL 1.25 MG/3 ML NEB ONE (11:46)
[2018-08-10 12:39] LABS: Absolute Lymphocytes (CBC) 1.5 K/uL (0.7-4.9); Absolute Monocytes 0.4 K/uL (0.1-1.3); Absolute Neutrophil 6.1 K/uL (1.8-8.0); Basophils % 0.4 % (0-1.3); Eosinophils % 0.7 % (0-4.4); Hematocrit 34.6 % (36.0-45.0); Lymphocytes % 18.9 % (15.3-44.8); MCH 32.8 pg (27.0-35.0); MCV 93.5 fL (80-100); MPV 7.6 fL (7.6-11.3); Monocytes % 4.7 % (3.3-12.3)
[2018-08-10 12:52] LABS: Potassium 3.9 mmol/L (3.5-5.1)
--- NOTE | 2018-08-10 13:14 | EKG ---
Test Date: 2018-08-10 Test Time: 11:49:56 Script Supervisor: RIANA MEASUREMENT RESULTS: Intervals: Rate: 78 SC: 178 QRSD: 82 QT: 364 QTc: 414 [place]: P: 52 SC: 178 QRS: 16 T: 22 INTERPRETIVE STATEMENTS: Normal sinus rhythm Normal ECG Compared to ECG 07/21/2018 09:20:00 No significant changes Electronically Signed On 08-10-18 13:13:42 CDT by Kayode Ortiz
--- NOTE | 2018-08-10 13:35 | RAD REPORT ---
EXAM DESCRIPTION: CT - Chest For Pe Angio - 08/10/2018 1:25 pm CLINICAL HISTORY: Dyspnea, fever, shortness of breath, recent shoulder surgery COMPARISON: Chest films same date TECHNIQUE: Dynamically enhanced 3 mm thick images of the chest were obtained during administration o f approximately 150mL Isovue 370 IV contrast. Coronal and oblique MIP reconstruction images were gene rated and reviewed. Exam utilizes a protocol to evaluate the pulmonary arterial tree. All CT scans are performed using dose optimization technique as appropriate and may include automated exposure control or mA/KV adjustment according to patient size. FINDINGS: No pulmonary emboli are identified. The aorta as imaged shows no acute or suspicious finding. No pericardial thickening or effusion. Trace amounts of bilateral pleural effusion present. There is atelectasis change in each posterior gu tter. Minimal prominence of the interstitial markings in the mid and lower right lung field. Patient has interstitial prominence on the left as well. Airspace opacities are present in the left upper lob e and in the superior aspect of the left lower lobe. No pneumothorax. No pleural based mass. No endo bronchial lesion. No mediastinal or hilar suspicious masses. No chest wall masses or abnormal axillary lymphadenopathy. Bilateral breast implants are in place. There is evidence for postsurgical change around the left sh oulder that is not fully imaged on this study. IMPRESSION: No pulmonary emboli identified. Left lung parenchymal opacification suspicious for pneumonia. This could be infectious or aspiration related given the proximity to surgery. Asymmetric atelectasis is unlikely. No cavitation or other aggressive lung parenchymal process.
--- NOTE | 2018-08-10 13:49 | RAD REPORT ---
EXAM DESCRIPTION: RAD - Chest Single View - 08/10/2018 1:00 pm CLINICAL HISTORY: Shortness of breath, fever, recent left shoulder surgery COMPARISON: July 21 TECHNIQUE: AP portable chest image was obtained 1246 hours . FINDINGS: Inspiratory effort is shallow compared to the prior study. Interstitial and alveolar opaci ties are present in the mid and lower left lung field and minimally at the right base. Pulmonary vasc ulature is within normal limits. Accentuated heart size is believed to be portable technique, shallow inspiration and body habitus artifact rather than failure. Early pneumonia changes should be conside red. Asymmetric alveolar edema or atelectasis would be possible. No measurable pleural effusion and n o pneumothorax. No gross bony abnormality seen. No acute aortic findings suspected. IMPRESSION: Minimal lower left lung field interstitial and alveolar opacification and right base opa cification. Findings are concerning for early pneumonia. Asymmetric alveolar edema or atelectasis are lesser cons iderations.
[2018-08-10] MEDS ORDERED: Levofloxacin 750mg IV 750 MG/150 ML BAG IV ONE (14:23)
--- NOTE | 2018-08-10 15:33 | ER ---
Nurse's Notes [facility] Name: Lydia Hanson Age: 58 yrs Sex: Female : 1960 Arrival Date: 08/10/2018 Time: 11:07 Bed 6 Private MD: Joshua Garcia Diagnosis: Pneumonia Presentation: 08/10 11:10 Presenting complaint: Patient states: Worsening SOB and fever x 3 days. TMAX 100.7. Pt hb is 4 days s/p left shoulder surgery, told by Dr. Green to come to ED. Transition of care: patient was not received from another setting of care. Onset of symptoms was August 10, 2018. Risk Assessment: Do you want to hurt yourself or someone else? Patient reports no desire to harm self or others. Care prior to arrival: None. 11:10 Method Of Arrival: Ambulatory hb 11:10 Acuity: RIA 3 hb 11:35 Initial Sepsis Screen: Does the patient meet any 2 criteria? RR > 20 per min. Does the sg patient have a suspected source of infection? No. Patient's initial sepsis screen is negative. Historical: - Allergies: 11:14 CEPHALOSPORINS; hb 11:14 Latex, Natural Rubber; hb 11:14 PENICILLINS; hb 11:14 TETRACYCLINES; hb 11:14 Codeine; hb - PMHx: 11:14 Depression; Hyperlipidemia; Hypertension; narcolepsy; Thyroid problem; V-tach; hb - PSHx: 11:14 Hysterectomy; Appendectomy; Cholecystectomy; breast augmentation; Carpal Tunnel Repair; hb L hand; Shoulder - Left; - Immunization history:: Adult Immunizations up to date. - Social history:: Smoking status: Patient/guardian denies using tobacco. - Ebola Screening: : No symptoms or risks identified at this time. - Family history:: not pertinent. - Hospitalizations: : No recent hospitalization is reported. Screenin:00 Abuse screen: Denies threats or abuse. Denies injuries from another. Nutritional sg screening: No deficits noted. Tuberculosis screening: No symptoms or risk factors identified. Never had TB. Fall Risk None identified. Assessment: 11:35 General: Appears in no apparent distress. comfortable, well groomed, well developed, sg well nourished, Behavior is calm, cooperative, appropriate for age. Pain: Complains of pain in anterior aspect of left shoulder and posterior aspect of left shoulder Quality of pain is described as pt reports having hurt her left shoulder lifting weights several weeks ago, a shoulder immobilizer remains in place per order pt reports. Neuro: Level of Consciousness is awake, alert, obeys commands, Oriented to person, place, time, Network Professional are equal bilaterally Moves all extremities. Full function Speech is normal. Cardiovascular: Patient's skin is warm and dry. Respiratory: Reports shortness of breath at rest Airway is patent Respiratory effort is even, labored, Respiratory pattern is regular, symmetrical, Breath sounds with wheezes. GI: Abdomen is flat, non-distended. : No signs and/or symptoms were reported regarding the genitourinary system. EENT: No signs and/or symptoms were reported regarding the EENT system. Derm: Skin is pink, warm \T\ dry. 13:00 Reassessment: Patient appears in no apparent distress at this time. Patient and/or sg family updated on plan of care and expected duration. Pain level reassessed. Patient is alert, oriented x 3, equal unlabored respirations, skin warm/dry/pink. 14:00 Reassessment: Patient appears in no apparent distress at this time. Patient and/or sg family updated on plan of care and expected duration. Pain level reassessed. Patient is alert, oriented x 3, equal unlabored respirations, skin warm/dry/pink. 15:00 Reassessment: Patient appears in no apparent distress at this time. Patient and/or sg family updated on plan of care and expected duration. Pain level reassessed. Patient is alert, oriented x 3, equal unlabored respirations, skin warm/dry/pink. awaiting dispo orders at this time, pt and pt family remain in the room at bedside, no new orders received, IV infusion of abx continues, no IV related issues noted, will continue to monitor. 15:46 Reassessment: Patient appears in no apparent distress at this time. Patient is alert, sg oriented x 3, equal unlabored respirations, skin warm/dry/pink. pt assisted to the ER restroom, even steady gait, pt reports increased shortness of breath with ambulation to restroom, pt assisted back to ER stretcher, pt reports feeling hungry, an order for dietary has been submitted, pt stated understanding. Vital Signs: 11:13 BP 161 / 81; Pulse 82; Resp 20; Temp 99.5(TE); Pulse Ox 99% on R/A; Pain 5/10; hb 15:48 BP 133 / 79; Pulse 80; Resp 19; Pulse Ox 99% on R/A; sg 16:53 BP 121 / 85; Pulse 82; Resp 19; Temp 99.0; Pulse Ox 95% on R/A; Pain 6/10; sg 16:53 pt reports it is past time for her PO demerol, pt family bringing home medications at this time ED Course: 11:07 Patient arrived in ED. sb2 11:07 Joshua Garcia MD is Private Physician. sb2 11:13 Triage completed. hb 11:14 Arm band placed on right wrist. hb 11:25 Michi Diaz MD is Attending Physician. rn 11:38 Kevan Quiñones RN is Primary Nurse. sg 12:12 EKG done, by unit aide tech. reviewed by Michi Diaz MD. at1 12:57 X-ray completed. Portable x-ray completed in exam room. Patient tolerated procedure mh1 well. 13:00 Chest Single View In Process Unspecified. EDMS 13:22 Note: UPON ARRIVING AT PT ED ROOM PT WAS NOT CONNECTED TO ANYTHING (BP CUFF, O2, OR sw HEART MONITOR) . Patient moved to CT via stretcher. 13:26 CT Chest For PE Angio In Process Unspecified. EDMS 13:35 Patient has correct armband on for positive identification. Bed in low position. Call sg light in reach. Side rails up X2. 15:32 Joshua Garcia MD is Hospitalizing Provider. rn 17:18 No provider procedures requiring assistance completed. Patient admitted, IV remains in sg place. intact, No redness/swelling at site. 17:18 Initial lab(s) drawn, by hi, sent to lab. Blood cultures obtained prior to abx sg administration. 17:22 Flu and/or RSV swab sent to lab. Strep swab sent to lab. sg Administered Medications: 11:43 Drug: Xopenex 1.25 mg Route: Inhalation; sg 14:26 Drug: LevaQUIN 750 mg Volume: 150 ml; Route: IVPB; Infused Over: 90 mins; Site: right sg antecubital; 15:50 Follow up: Response: No adverse reaction; IV Status: Completed infusion sg Outcome: 15:32 Decision to Hospitalize by Provider. rn 17:18 Admitted to Med/surg accompanied by tech, family with patient, via wheelchair, room sg 228, with chart, Report called to Marcos KIRKLAND 17:18 Condition: stable 17:18 Instructed on the need for admit, safety practices, Demonstrated understanding of instructions. 17:36 Patient left the ED. Signatures: Dispatcher [employer] EDMS Kevan Quiñones RN RN Raiza Rodriguez 1 Michi Diaz MD MD rn Smirch, Shelby, RN RN Emilie Benoit, rubber goods tester EKG Tat1 Corrina Melvin Heather, RN RN hb Billeau, Sheri sb2 Corrections: (The following items were deleted from the chart) 19:26 15:30 Response: No adverse reaction; IV Status: Completed [facility]
--- NOTE | 2018-08-10 15:33 | EDPHYS ---
Physician Documentation [facility] Name: Lydia Hanson Age: 58 yrs Sex: Female : 1960 Arrival Date: 08/10/2018 Time: 11:07 Bed 6 Private MD: Joshua Garcia ED Physician Michi Diaz HPI: 08/10 11:37 This 58 yrs old Female presents to ER via Ambulatory with complaints of rn Shortness Of Breath, Postsurgical swelling, fever. 11:37 Onset: The symptoms/episode began/occurred 3 day(s) ago. Duration: The symptoms are rn intermittent. The patient's shortness of breath is aggravated by nothing, is alleviated by nothing. Severity of symptoms: At their worst the symptoms were moderate in the emergency department the symptoms have improved. The patient has not experienced similar symptoms in the past. The patient has been recently seen by a physician:. Reports 4 days post-op from elective shoulder surgery, shoulder feels fine, reports cough/sob/low grade fever, + hx of asthma, no hx of blood clots, sent by her doctor for eval. Has stayed in circumferential brace around her chest since surgery. . Historical: - Allergies: 11:14 CEPHALOSPORINS; hb 11:14 Latex, Natural Rubber; hb 11:14 PENICILLINS; hb 11:14 TETRACYCLINES; hb 11:14 Codeine; hb - PMHx: 11:14 Depression; Hyperlipidemia; Hypertension; narcolepsy; Thyroid problem; V-tach; hb - PSHx: 11:14 Hysterectomy; Appendectomy; Cholecystectomy; breast augmentation; Carpal Tunnel Repair; hb L hand; Shoulder - Left; - Immunization history:: Adult Immunizations up to date. - Social history:: Smoking status: Patient/guardian denies using tobacco. - Ebola Screening: : No symptoms or risks identified at this time. - Family history:: not pertinent. - Hospitalizations: : No recent hospitalization is reported. ROS: 11:39 Constitutional: + fever Eyes: Negative for injury, pain, redness, and discharge, Neck: rn Negative for injury, pain, and swelling, Cardiovascular: Negative for chest pain, palpitations, and edema, Respiratory: + cough and sob Abdomen/GI: Negative for abdominal pain, nausea, vomiting, diarrhea, and constipation, Back: Negative for injury and pain, MS/Extremity: + post surgical pain of left shoulder Neuro: Negative for headache, weakness, numbness, tingling, and seizure. Exam: 11:39 Constitutional: This is a well developed, well nourished patient who is awake, alert, rn and in no acute distress., ambulated to room without difficulty Head/Face: Normocephalic, atraumatic. Eyes: Pupils equal round and reactive to light, extra-ocular motions intact. Lids and lashes normal. Conjunctiva and sclera are non-icteric and not injected. Cornea within normal limits. Periorbital areas with no swelling, redness, or edema. ENT: no stridor Cardiovascular: Regular rate and rhythm with a normal S1 and S2. No gallops, murmurs, or rubs. Normal PMI, no JVD. No pulse deficits. Respiratory: mild tachypnea, diminished breath sounds laterally and at bases, no wheezing Skin: Warm, dry with normal turgor. Normal color with no rashes, no lesions, and no evidence of cellulitis. MS/ Extremity: Pulses equal, no cyanosis. Neurovascular intact. Left shoulder with appropriate post-op pain, no swelling no skin changes. Neuro: Awake and alert, GCS 15, oriented to person, place, time, and situation. Cranial nerves II-XII grossly intact. Motor strength 5/5 in all extremities. Sensory grossly intact. Cerebellar exam normal. Normal gait. Vital Signs: 11:13 BP 161 / 81; Pulse 82; Resp 20; Temp 99.5(TE); Pulse Ox 99% on R/A; Pain 5/10; hb 15:48 BP 133 / 79; Pulse 80; Resp 19; Pulse Ox 99% on R/A; sg 16:53 BP 121 / 85; Pulse 82; Resp 19; Temp 99.0; Pulse Ox 95% on R/A; Pain 6/10; sg 16:53 pt reports it is past time for her PO demerol, pt family bringing home medications at this time MDM: 11:25 Patient medically screened. rn 15:32 Differential diagnosis: pneumonia, Pneumothorax pulmonary edema, Pulmonary Embolism. rn Data reviewed: vital signs, nurses notes, lab test result(s), EKG, radiologic studies, CT scan, plain films, and as a result, I will admit patient. Counseling: I had a detailed discussion with the patient and/or guardian regarding: the historical points, exam findings, and any diagnostic results supporting the discharge/admit diagnosis, lab results, radiology results, the need for further work-up and treatment in the hospital. Response to treatment: the patient's symptoms have mildly improved after treatment. Admission orders: after a detailed discussion of the patient's condition and case, the admit orders are written by me. 08/10 11:36 Order name: CBC with Diff rn 08/10 11:36 Order name: Basic Metabolic Panel; Complete Time: 12:52 rn 08/10 11:36 Order name: D-Dimer; Complete Time: 13:04 rn 08/10 11:36 Order name: Procalcitonin; Complete Time: 13:37 rn 08/10 11:36 Order name: Strep; Complete Time: 13:37 rn 08/10 11:36 Order name: Flu; Complete Time: 13:37 rn 08/10 11:36 Order name: CBC with Automated Diff; Complete Time: 13:04 EDOH 08/10 11:39 Order name: Blood Culture Adult (2) rn 08/10 12:59 Order name: Chest Single View; Complete Time: 14:18 EDOH 08/10 13:05 Order name: CT Chest For PE Angio; Complete Time: 13:37 rn 08/10 13:15 Order name: Throat Culture EDOH 08/10 15:46 Order name: Urine Dipstick--Ancillary (enter results) bd 08/10 11:36 Order name: IV Start; Complete Time: 14:27 rn 08/10 11:36 Order name: EKG; Complete Time: 11:37 rn 08/10 11:36 Order name: EKG - Nurse/Tech; Complete Time: 14:09 rn 08/10 15:35 Order name: Diet Regular; Complete Time: 15:35 ss Administered Medications: 11:43 Drug: Xopenex 1.25 mg Route: Inhalation; sg 14:26 Drug: LevaQUIN 750 mg Volume: 150 ml; Route: IVPB; Infused Over: 90 mins; Site: right sg antecubital; 15:50 Follow up: Response: No adverse reaction; IV Status: Completed infusion sg Disposition: 08/10/18 15:32 Hospitalization ordered by Joshua Garcia for Inpatient Admission. Preliminary diagnosis is Pneumonia. - Bed requested for Telemetry/MedSurg (Inpatient). - Status is Inpatient Admission. ss - Condition is Stable. - Problem is new. - Symptoms have improved. UTI on Admission? No Signatures: Dispatcher [employer] [facility] Masha Hendrickson, RN RN Kevan Quiñones, RN MARITA Michi Diaz MD MD rn Smirch, Shelby, RN RN Rolanda Darden, RN MARITA Corrections: (The following items were deleted from the chart) 12:59 11:37 Chest Pa And Lat (2 Views)+[email or web address] ordered. [facility] 16:38 15:32 Hospitalization Ordered by Joshua Garcia MD for Inpatient Admission. Preliminary dw diagnosis is Pneumonia. Bed requested for Telemetry/MedSurg (Inpatient). Status is Inpatient Admission. Condition is Stable. Problem is new. Symptoms have improved. UTI on Admission? No. rn 16:39 16:38 08/10/2018 15:32 Hospitalization Ordered by Joshua Garcia MD for Inpatient dw Admission. Preliminary diagnosis is Pneumonia. Bed requested for Telemetry/MedSurg (Inpatient). Status is Inpatient Admission. Condition is Stable. Problem is new. Symptoms have improved. UTI on Admission? No. dw 17:36 16:39 08/10/2018 15:32 Hospitalization Ordered by Joshua Garcia MD for Inpatient ss Admission. Preliminary diagnosis is Pneumonia. Bed requested for Telemetry/MedSurg (Inpatient). Status is Inpatient Admission. Condition is Stable. Problem is new. Symptoms have improved. UTI on Admission? No. dw
[2018-08-10] MEDS ORDERED: ALBUTEROL 2.5 MG/3 ML NEB SOL NEB PRN (17:43)
[2018-08-10] MEDS ORDERED: ACETAMINOPHEN 500 MG TAB PO PRN (17:43)
[2018-08-10] MEDS ORDERED: ONDANSETRON 4 MG/2 ML VIAL IV PRN (17:43)
[2018-08-10 18:07] VITALS: BMI 27.8
[2018-08-10] MEDS: ALBUTEROL 2.5 MG/3 ML NEB SOL NEB PRN (20:41)
[2018-08-10] MEDS: IPRATROPIUM BROM 0.5MG/2.5ML NEB PRN (20:41)
[2018-08-10 20:48] VITALS: O2SAT 98
[2018-08-10] MEDS ORDERED: CLONAZEPAM 1 MG PO PRN (21:27)
[2018-08-10] MEDS ORDERED: MEPERIDINE HCL 50 MG PO PRN (21:27)
[2018-08-11] MEDS: IPRATROPIUM BROM 0.5MG/2.5ML NEB PRN (05:38)
[2018-08-11] MEDS: ALBUTEROL 2.5 MG/3 ML NEB SOL NEB PRN (05:38)
[2018-08-11] MEDS ORDERED: HOME MED 1 EA UNK (Levothyroxine [Synthroid*] 50 MCG) PO SCH (06:00)
[2018-08-11 06:05] LABS: Absolute Lymphocytes (CBC) 1.2 K/uL (0.7-4.9); Absolute Monocytes 0.5 K/uL (0.1-1.3); Absolute Neutrophil 5.1 K/uL (1.8-8.0); Basophils % 0.3 % (0-1.3); Eosinophils % 0.5 % (0-4.4); Hematocrit 29.4 % (36.0-45.0); Lymphocytes % 17.6 % (15.3-44.8); MCV 93.7 fL (80-100); MPV 7.3 fL (7.6-11.3); Monocytes % 6.6 % (3.3-12.3); RBC Red Blood Cell Count 3.13 M/uL (3.86-4.86)
[2018-08-11] MEDS ORDERED: VITAMIN E PO SCH (09:00)
[2018-08-11] MEDS ORDERED: VALSARTAN PO SCH (09:00)
[2018-08-11] MEDS ORDERED: HOME MED 1 EA UNK (Omeprazole [Prilosec] 40 MG) PO SCH (09:00)
[2018-08-11] MEDS ORDERED: ARIPIPRAZOLE 5 MG PO SCH (09:00)
[2018-08-11] MEDS ORDERED: NEBIVOLOL HCL 5 MG PO SCH (09:00)
[2018-08-11] MEDS ORDERED: BUPROPION HCL 150 MG PO SCH (09:00)
[2018-08-11] MEDS ORDERED: IBUPROFEN 800 MG PO SCH (09:00)
[2018-08-11] MEDS ORDERED: HYDROCHLOROTHIAZIDE PO SCH (09:00)
[2018-08-11] MEDS ORDERED: [UNRECOGNIZED DRUG - OTHER] PO SCH (09:00)
[2018-08-11] MEDS ORDERED: DULOXETINE HCL 90 MG PO SCH (09:00)
[2018-08-11] MEDS ORDERED: HYDROXYCHLOROQUINE 200 MG PO SCH (09:00)
[2018-08-11] MEDS ORDERED: HOME MED 1 EA UNK (Montelukast [Singulair*] 10 MG) PO SCH (09:00)
[2018-08-11] MEDS ORDERED: UBIDECARENONE PO SCH (09:00)
[2018-08-11] MEDS ORDERED: DEXMETHYLPHENIDATE HCL 40 MG PO SCH (09:00)
[2018-08-11] MEDS ORDERED: URSODIOL 300 MG PO SCH (09:00)
[2018-08-11] MEDS ORDERED: HOME MED 1 EA UNK (Rosuvastatin [Crestor*] 5 MG) PO SCH (09:00)
[2018-08-11] MEDS ORDERED: Levofloxacin500mg IV 500 MG/100 ML BAG IV SCH (14:00)
[2018-08-11 17:49] VITALS: BP 130/66; TEMP 97.7
[2018-08-11] MEDS ORDERED: DEXMETHYLPHENIDATE HCL 20 MG PO SCH (18:00)
[2018-08-11] MEDS ORDERED: SODIUM OXYBATE PO SCH (21:00)
[2018-08-11] MEDS ORDERED: ONDANSETRON 4 MG PO SCH (21:00)
[2018-08-11] MEDS ORDERED: HOME MED 1 EA UNK (Zolpidem Tartrate [Ambien*] 10 MG) PO SCH (21:00)
[2018-08-11] MEDS ORDERED: PRAZOSIN HCL 3 MG PO SCH (21:00)
== END 2018-08-11 12:28 | disposition home or self-care (01) ==
LOC: ER 11:01 → INTOOBSV 15:37 → ERHOLD 15:37 → 2ND 17:08
PROVIDERS: ADMIT Internal Medicine; ATTEND Internal Medicine
DX: J18.9 Pneumonia, unspecified organism (principal); I10 Essential (primary) hypertension; F32.9 Major depressive disorder, single episode, unspecified; Z88.0 Allergy status to penicillin; Z91.040 Latex allergy status
CPT/HCPCS: 36415; 71045; 71275; 80048; 84145; 85025; 85379; 87040; 87070; 87081; 87804; 93005; 94760; 96365; 99285; G0378; Q9967

== ENCOUNTER 2019-01-13 08:28 | Inpatient (IN) | payer BC ==
--- OUTSIDE RECORDS SUMMARY | 2019-01-13 08:31 | XMS REPORT | Clinical Summary ---
:1960 Author Organization [facility] Address [address] [place] [address] Care Team Providers Name Role Phone Joshua Garcia MD Primary Care Provider Allergies Active Allergy Reactions Severity Noted Date Comments Cephalosporins Anaphylaxis High 03/02/2016 Most likely Keflex 500mg per patient. Facial rash, hives, admitted to ICU Codeine Itching 03/02/2016 Latex 01/22/2017 blisters Eszopiclone 01/22/2017 Metallic taste in mouth, tachycardia Penicillins Rash Low 03/02/2016 Tetracycline Anaphylaxis High 03/02/2016 Medications Medication Sig Dispensed Refills Start End Date Status Date zolpidem (AMBIEN) 10 mg Take 10 mg by 0 Active tablet mouth nightly as needed for sleep. zolpidem 10 mg tablet tiotropium (SPIRIVA) 18 Place 1 0 Active mcg per inhalation capsule into capsule inhaler and inhale daily as needed. montelukast (SINGULAIR) Take 10 mg by 0 Active 10 mg tablet mouth every evening. ursodiol (ACTIGALL) 300 Take 300 mg by 1 Active mg capsule mouth 2 (two) 6 times a day. ARIPiprazole (ABILIFY) Take 5 mg by 0 Active 5 MG tablet mouth daily. clonAZEPAM (KlonoPIN) 1 Take 1 mg by 0 Active MG tablet mouth 2 (two) times a day as needed for anxiety. dexmethylphenidate XR Take 40 mg by 0 Active (FOCALIN XR) 40 mg 24 mouth every hr capsule morning. DULoxetine (CYMBALTA) Take 60 mg by 0 Active 60 MG capsule mouth daily. hydroxychloroquine Take 200 mg by 0 Active (PLAQUENIL) 200 mg mouth 2 (two) tablet times a day. omeprazole (PriLOSEC) Take 40 mg by 0 Active 40 MG capsule mouth daily. BYSTOLIC 10 mg tablet 5 mg daily. Pt 5 Active was prescribed 7 10 mg but when pressure or heart rate is low pt takes 5 mg prazosin (MINIPRESS) 1 1 mg. 3x 1 Active MG capsule nightly 7 SODIUM OXYBATE (XYREM Take by mouth. 0 Active ORAL) valsartan-hydrochloroth Take 1 tablet 3 Active iazide (DIOVAN-HCT) by mouth 8 80-12.5 mg per tablet daily. CRESTOR 5 mg tablet Take 5 mg [...] AFTERNOON RESTASIS MULTIDOSE 0.[address] 1 DROP 11 Active % drops IN EACH EYE 8 TWICE DAILY buPROPion XL TAKE 1 TABLET 2 Active (WELLBUTRIN XL) 150 MG BY MOUTH EACH 8 24 hr tablet MORNING. traZODone (DESYREL) 100 Take 150 mg by 0 07/31/20 Discontinued MG tablet mouth nightly. 18 traMADol (ULTRAM) 50 mg Take 50 mg by 0 07/31/20 Discontinued tablet mouth every 6 18 (six) hours as needed for moderate pain. dexmethylphenidate Take 20 mg by 0 07/31/20 Discontinued (FOCALIN) 10 MG tablet mouth daily. 18 At 2pm buPROPion XL Take 150 mg by 0 07/31/20 Discontinued (WELLBUTRIN XL) 300 MG mouth every 18 24 hr tablet morning. fluticasone (FLONASE) 2 sprays by 0 07/31/20 Discontinued 50 mcg/actuation nasal Each Nare 18 spray route daily. levothyroxine Take 100 mcg 0 07/31/20 Discontinued (SYNTHROID, LEVOXYL) by mouth every 18 100 mcg tablet evening. 50mg sulfamethoxazole-trimet Take 1 tablet 0 07/31/20 Discontinued hoprim (BACTRIM SS) by mouth 2 18 400-80 mg per tablet (two) times a day with meals. Active Problems Problem Noted Date Palpitations 07/28/2017 [...] 2008) Dr Sherine Umaña therapist Dr Corrina Brown LILIA on CPAP 03/08/2016 Hypersomnolence 03/08/2016 Bronchospasm 03/08/2016 Overview: About 6 months ago when she has an infections bronchitis; she was dx with "asthma" and was given spiriva and singulair, no pft's done. PTSD (post-traumatic stress disorder) 03/08/2016 HLD (hyperlipidemia) 03/08/2016 Hypertension 03/02/2016 Hypothyroidism 03/02/2016 GERD (gastroesophageal reflux disease) Encounters Date Type Specialty Care Team Description 10/20/2018 Orders Only Cardiology Royce Escobar MD Tachycardia (Primary Dx) 09/30/2018 Office Visit General Surgery Noe Ceja, Condyloma acuminata (Primary Dx) [place], [employer] 07/31/2018 Office Visit Cardiology Royce Escobar MD Essential hypertension (Primary Dx); Palpitations after 01/12/2018 Family History Medical History Relation Name Comments Drug abuse Brother Tee Brown Cancer Father Lupillo brown Diabetes Maternal Grandfather VERONA Depression Mother [place] COPD Paternal Grandfather Lupillo Barnes Brown Hypertension Paternal Grandmother Syeda Brown Relation Name Status Comments Brother Tee Brown Father Lup[place] brown Maternal Grandfather [place]ONA Mother [place] Paternal Grandfather Lupillo D Brown Paternal Grandmother Syeda Brown Social History Tobacco Use Types Packs/Day Years Used Date Never Smoker Smokeless Tobacco: Never Used Alcohol Use Drinks/Week oz/Week Comments No Sex Assigned at Date Recorded Not on file Job Start Date Occupation Industry Not on file Not on file Not on file Travel History Travel Start Travel End No recent travel history available. Last Filed Vital Signs Vital Sign Reading Time Taken Blood Pressure 139/94 09/30/2018 11:06 AM DESIGN AGENT Pulse 64 09/30/2018 11:06 AM DESIGN AGENT Temperature - - Respiratory Rate 18 07/31/2018 9:58 AM CDT Oxygen Saturation - - Inhaled Oxygen Concentration - - Weight 85.7 kg (189 lb) 07/31/2018 9:58 AM CDT Height 170.2 cm (5' 7") 07/31/2018 9:58 AM CDT Body Mass Index 29.6 07/31/2018 9:58 AM CDT Plan of Treatment Date Type Specialty Care Team Description 10/06/2019 Office Visit General Surgery [place], TREV-C [id number] [address] Health Maintenance Due Date Last Done Comments COLON CANCER SCREENING 2010 SHINGLES VACCINES (#1) 2010 BREAST CANCER SCREENING 11/10/2015 11/10/2013 CERVICAL CANCER SCREENING 11/10/2016 11/10/2013 INFLUENZA VACCINE 06/10/2018 Procedures Procedure Name Priority Date/Time Associated Diagnosis Comments ECG 12-LEAD Routine 07/31/2018 9:50 AM Essential hypertension Results for this CDT procedure are in the results section. after 01/12/2018 Results ECG 12 lead (07/31/2018 9:50 AM CDT) Ventricular rate 62 [facility] Atrial rate 62 [facility] TN interval 200 [facility] QRSD interval 84 [facility] QT interval 390 [facility] QTC interval 395 [facility] P axis 1 73 [facility] QRS axis 1 70 [facility] T wave axis 68 [facility] EKG impression Normal sinus rhythm-Normal ECG-In automated [facility] comparison with ECG of 24-NOV-2017 16:19,-Vent. rate has decreased BY 48 BPM- Performing Organization Address City/State/Zipcode Phone Number [facility] [address] [place] [address] after 01/12/2018 Insurance Payer Benefit Plan / Group Subscriber ID Type Phone Address BCBS BCBS CHOICE PPO/FEDERAL EMPL PPO xxxxxxxxxxxx PPO Advance Directives Patient has advance care planning documents, and code status on file. For more information, please contact:Baldemar Willett[address] [place] [address] Code Status Date Activated Date Inactivated Comments Full Code 01/22/2017 6:05 PM 01/24/2017 7:39 PM Code Status decision reached by: Patient
--- NOTE | 2019-01-13 09:06 | RAD REPORT ---
EXAM DESCRIPTION: RAD - Chest Single View - 01/13/2019 8:54 am CLINICAL HISTORY: DYSPNEA Chest pain. COMPARISON: Chest Pa And Lat (2 Views) dated 08/14/2018; Chest Single View dated 08/10/2018; Chest Sin gle View dated 07/21/2018; CHEST PA AND LAT 2 VIEW dated 01/20/2016 FINDINGS: Portable technique limits examination quality. Moderately severe bilateral pulmonary opacities are present, greater on the left which may represent pneumonia or pulmonary edema. The heart is mildly enlarged in size. No displaced fractures.
[2019-01-13 09:07] LABS: Arterial Blood Carboxyhemoglob 1.1 % (0-1.5); Blood O2 Saturation 97.8 % (92-98.5)
[2019-01-13 09:10] LABS: Absolute Lymphocytes (CBC) 0.5 K/uL (0.7-4.9); Absolute Monocytes 0.1 K/uL (0.1-1.3); Absolute Neutrophil 5.6 K/uL (1.8-8.0); Basophils % 0.3 % (0-1.3); Hematocrit 40.7 % (36.0-45.0); Lymphocytes % 8.5 % (15.3-44.8); MPV 8.5 fL (7.6-11.3); Monocytes % 1.9 % (3.3-12.3); RBC Red Blood Cell Count 4.37 M/uL (3.86-4.86)
[2019-01-13] MEDS ORDERED: VANCOMYCIN/NS 1 gm 1 GM/250 ML BAG IV ONE (09:15)
[2019-01-13 09:17] LABS: Protime INR 1.2
[2019-01-13] MEDS ORDERED: Levofloxacin500mg IV 500 MG/100 ML BAG IV ONE (09:21)
[2019-01-13 09:35] LABS: Blood Morphology Comment NOT SEEN (NOT SEEN); Platelet Estimate DECR; Urine White Blood Cell Casts OK
[2019-01-13 10:34] LABS: Albumin 3.4 g/dL (3.4-5.0); Bilirubin Direct 0.2 mg/dL (0-0.2); Bilirubin Total 0.6 mg/dL (0.2-1.0); CKMB Creatine Kinase MB 3.1 ng/mL (0.3-3.6); Potassium 3.2 mmol/L (3.5-5.1); Protein, Total 6.9 g/dL (6.4-8.2); Troponin (Emerg Dept Use Only) 0.03 ng/mL (0.0-0.045)
[2019-01-13] MEDS ORDERED: NA CHLORIDE 0.9% 1,000 ML ONE (10:39)
--- NOTE | 2019-01-13 11:19 | RAD REPORT ---
EXAM DESCRIPTION: CT - Chest For Pe Angio - 01/13/2019 11:04 am CLINICAL HISTORY: sob COMPARISON: January 13, 2019 chest x-ray TECHNIQUE: Dynamically enhanced axial 3 mm thick images of the chest were obtained during administra tion of <100> mL Isovue 370 IV contrast. Coronal and oblique reconstruction images were generated and reviewed. Exam utilizes a protocol for optimal evaluation of pulmonary arterial tree. Maximum intensity projections 3D imaging was utilized All CT scans are performed using dose optimization technique as appropriate and may include automated exposure control or mA/KV adjustment according to patient size. FINDINGS: A pulmonary embolus is not seen. A thoracic aortic aneurysm is not noted. A minimal left pleural effusion is present. A pericardial effusion is not seen. Extensive bilateral alveolar lung opacities 11 millimeter right thyroid nodule IMPRESSION: Negative for a pulmonary embolism. Extensive bilateral alveolar lung opacities probably represent pneumonia 11 millimeter right thyroid nodule. Nonemergent ultrasound recommended
--- NOTE | 2019-01-13 11:44 | EDPHYS ---
Physician Documentation [facility] Name: Lydia Hanson Age: 58 yrs Sex: Female : 1960 Arrival Date: 01/13/2019 Time: 08:34 Bed 2 Private MD: ED Physician Akil Bull HPI: 01/13 10:29 This 58 yrs old Female presents to ER via Wheelchair with complaints of jr8 Shortness Of Breath, Respiratory Distress. 10:29 The patient has shortness of breath at rest. Onset: The symptoms/episode began/occurred jr8 acutely, today. Duration: The symptoms are continuous. The patient's shortness of breath is aggravated by talking, walking. Associated signs and symptoms: Pertinent positives: non-productive cough, fever. Severity of symptoms: At their worst the symptoms were moderate in the emergency department the symptoms are unchanged. The patient has not experienced similar symptoms in the past. The patient has been recently seen by a physician:. Patient recently seen by PCP and diagnosed with influenza. Was started on Tamiflu. Came to ED today for severe sudden onset shortness of breath . Historical: - Allergies: 08:40 CEPHALOSPORINS; iw 08:40 Codeine; iw 08:40 Latex, Natural Rubber; iw 08:40 PENICILLINS; iw 08:40 TETRACYCLINES; iw - Home Meds: 08:55 montelukast 10 mg oral tab 1 tab once daily [Active]; levothyroxine 50 mcg tab 1 tab 6 iw days per week, skip 7th day [Active]; Bystolic 5 mg oral tab 1 tab once daily [Active]; prazosin 1 mg Oral cap 1 cap 3 times per day [Active]; ursodiol 300 mg Oral cap 3 times per day [Active]; Ambien 10 mg Oral tab 1 tab once daily [Active]; duloxetine oral 90 mg oral once daily [Active]; aripiprazole 5 mg oral tab 1 tab once daily [Active]; bupropion HCl 150 mg Oral TbER 1 tab once daily [Active]; omeprazole 40 mg Oral cpDR 1 cap once daily [Active]; dexmethylphenidate 20 mg oral BP50 1 cap once daily [Active]; ondansetron HCl 4 mg Oral tab nightly [Active]; Xyrem oral 4.5 GM oral 2 times per day [Active]; Co Q-10 oral oral daily [Active]; Crestor 5 mg oral tab 1 tab once daily [Active]; clonazepam 1 mg Oral tab as needed [Active]; hydroxychloroquine 200 mg oral tab 2 tabs once daily [Active]; valsartan-hydrochlorothiazide 80-12.5 mg oral tab 1 tab once daily [Active]; Restasis 0.05 % ophthalmic dpet 1 drop 2 times per day [Active]; - PMHx: 08:40 Depression; Hyperlipidemia; Hypertension; narcolepsy; Thyroid problem; V-tach; iw - Immunization history:: Adult Immunizations up to date. - Ebola Screening: : Patient negative for fever greater than or equal to 101.5 degrees Fahrenheit, and additional compatible Ebola Virus Disease symptoms Patient denies exposure to infectious person Patient denies travel to an Ebola-affected area in the 21 days before illness onset No symptoms or risks identified at this time. - Social history:: Smoking status: unknown. ROS: 10:29 Eyes: Negative for injury, pain, redness, and discharge, ENT: Negative for injury, jr8 pain, and discharge, Neck: Negative for injury, pain, and swelling, Cardiovascular: Negative for chest pain, palpitations, and edema, Abdomen/GI: Negative for abdominal pain, nausea, vomiting, diarrhea, and constipation, Back: Negative for injury and pain, MS/Extremity: Negative for injury and deformity, Skin: Negative for injury, rash, and discoloration, Neuro: Negative for headache, weakness, numbness, tingling, and seizure. 10:29 Constitutional: Positive for fever. 10:29 Respiratory: Positive for cough, dyspnea on exertion, orthopnea, shortness of breath. Exam: 10:29 Eyes: Pupils equal round and reactive to light, extra-ocular motions intact. Lids and jr8 lashes normal. Conjunctiva and sclera are non-icteric and not injected. Cornea within normal limits. Periorbital areas with no swelling, redness, or edema. ENT: Nares patent. No nasal discharge, no septal abnormalities noted. Tympanic membranes are normal and external auditory canals are clear. Oropharynx with no redness, swelling, or masses, exudates, or evidence of obstruction, uvula midline. Mucous membranes moist. Neck: Trachea midline, no thyromegaly or masses palpated, and no cervical lymphadenopathy. Supple, full range of motion without nuchal rigidity, or vertebral point tenderness. No Meningismus. Cardiovascular: Regular rate and rhythm with a normal S1 and S2. No gallops, murmurs, or rubs. Normal PMI, no JVD. No pulse deficits. Abdomen/GI: Soft, non-tender, with normal bowel sounds. No distension or tympany. No guarding or rebound. No evidence of tenderness throughout. Back: No spinal tenderness. No costovertebral tenderness. Full range of motion. MS/ Extremity: Pulses equal, no cyanosis. Neurovascular intact. Full, normal range of motion. Neuro: Awake and alert, GCS 15, oriented to person, place, time, and situation. Cranial nerves II-XII grossly intact. Motor strength 5/5 in all extremities. Sensory grossly intact. Cerebellar exam normal. Normal gait. 10:29 Respiratory: severe repiratory distress is noted, Respirations: labored breathing, tachypnea, Breath sounds: rales, that are mild, are located in both bases, Respiratory rate: 40 10:29 Skin: Appearance: Color: dusky, pale, Temperature: cool, Moisture: diaphoretic. Vital Signs: 08:35 BP 140 / 87; Pulse 117; Resp 40 S; Pulse Ox 37% on R/A; Weight 87.54 kg; bp 08:44 BP 120 / 64; Pulse 89; Resp 34; Pulse Ox 100% on BiPAP; bp 09:10 Temp 98.9(TE); iw 09:15 BP 121 / 59; Pulse 88; Resp 38; Pulse Ox 97% ; bp 09:30 BP 118 / 61; Pulse 89; Resp 20; Pulse Ox 98% on BiPAP; bp 10:00 BP 105 / 54; Pulse 85; Resp 30; Pulse Ox 92% on BiPAP; bp 11:00 BP 115 / 53; Pulse 82; Resp 29; Pulse Ox 93% on BiPAP; bp 13:00 BP 133 / 60; Pulse 83; Resp 38; Pulse Ox 92% ; bp MDM: 08:40 Patient medically screened. [facility] 11:41 Data reviewed: vital signs, nurses notes, lab test result(s), EKG, radiologic studies, jr8 CT scan, plain films, ultrasound, and as a result, I will admit patient. Data interpreted: Pulse oximetry: on room air is 37 %. Interpretation: hypoxia. Plan: O2 by Mask applied. Counseling: I had a detailed discussion with the patient and/or guardian regarding: the historical points, exam findings, and any diagnostic results supporting the discharge/admit diagnosis, lab results, radiology results, the need for further work-up and treatment in the hospital. Response to treatment: the patient's symptoms have mildly improved after treatment. Physician consultation: A Radha SCHMIDT was called at 11:41, was contacted at 11:41, regarding admission, to the ICU, consult, patient's condition, and will see patient. 03 08:41 Order name: ABG; Complete Time: 10:04 01/13 08:41 Order name: Basic Metabolic Panel 01/13 08:41 Order name: Blood Culture Adult (2) 01/13 08:41 Order name: CBC with Diff; Complete Time: 10:04 01/13 08:41 Order name: Ckmb; Complete Time: 10:41 01/13 08:41 Order name: CPK; Complete Time: 10:41 01/13 08:41 Order name: Lactate; Complete Time: 10:23 01/13 08:41 Order name: LFT's; Complete Time: 10:41 01/13 08:41 Order name: Lipase; Complete Time: 10:41 01/13 08:41 Order name: Procalcitonin; Complete Time: 10:04 01/13 08:41 Order name: Protime (+inr); Complete Time: 10:04 01/13 08:41 Order name: Ptt, Activated; Complete Time: 10:04 01/13 08:41 Order name: Troponin (emerg Dept Use Only); Complete Time: 10:41 01/13 08:41 Order name: Urine Microscopic Only 01/13 08:41 Order name: Chest Single View XRAY; Complete Time: 09:13 01/13 08:41 Order name: Accucheck; Complete Time: 08:52 jr01/13 08:41 Order name: Flu; Complete Time: 09:24 jr01/13 08:41 Order name: BIPAP 01/13 08:42 Order name: Basic Metabolic Panel; Complete Time: 10:41 EDMS 01/13 08:56 Order name: Echo w/ Doppler 8 01/13 09:11 Order name: CBC Smear Scan; Complete Time: 10:04 EDID 01/13 10:42 Order name: BNP; Complete Time: 11:12 8 01/13 10:43 Order name: CT Chest For PE Angio; Complete Time: 11:28 jr8 01/13 11:28 Order name: Lactate; Complete Time: 12:12 8 01/13 11:48 Order name: CONS Physician Consult EDID 01/13 08:41 Order name: Cardiac monitoring; Complete Time: 08:52 jr8 01/13 08:41 Order name: EKG - Nurse/Tech; Complete Time: 08:52 jr8 01/13 08:41 Order name: IV Saline Lock - Large Bore; Complete Time: 08:52 jr8 01/13 08:41 Order name: Labs collected and sent; Complete Time: 08:52 jr8 01/13 08:41 Order name: O2 Per Protocol; Complete Time: 08:52 8 01/13 08:41 Order name: O2 Sat Monitoring; Complete Time: 08:52 Administered Medications: 08:42 CANCELLED (Physician Discretion): NS 0.9% (30 ml/kg) 30 ml/kg IV at bolus once; Sepsis [facility] Protocol 09:00 Drug: LevaQUIN 500 mg Volume: 100 ml; Route: IVPB; Infused Over: 60 mins; Site: right bp antecubital; 10:00 Follow up: IV Status: Completed infusion; IV Intake: 100ml bp 10:00 Drug: vancoMYCIN 1 grams Route: IVPB; Infused Over: 2 hrs; Site: right antecubital; bp 12:00 Follow up: IV Status: Completed infusion; IV Intake: 250ml bp 10:30 Drug: NS 0.9% 1000 ml Route: IV; Rate: 1000 ml; Site: right antecubital; bp 11:30 Follow up: IV Status: Completed infusion; IV Intake: 1000ml bp 11:45 Drug: NS 0.9% (30 ml/kg) 30 ml/kg Route: IV; Rate: bolus; Site: right antecubital; bp 14:01 Follow up: IV Status: Infusion continued upon admission bp Disposition: 01/14 07:23 Co-signature as Attending Physician, Akil Bull MD I agree with the assessment and kdr plan of care. Disposition: 01/13/19 11:42 Hospitalization ordered by Santosh Garcia for Inpatient Admission. Preliminary diagnosis are Pneumonia due to other specified bacteria, Sepsis, Influenza due to identified novel influenza A virus, Acute respiratory failure with hypoxia. - Bed requested for Intensive Care Unit. - Status is Inpatient Admission. bp - Condition is Fair. - Problem is new. - Symptoms have improved. UTI on Admission? No Signatures: Dispatcher [employer] EDMS Cipriano Resendez MD MD cha Rittger, Kevin, MD MD kdr Williams, Irene, MARITA RN Noe Adrian em1 David Landaverde PA PA jr8 Ziyad Zamora, RN RN bp Corrections: (The following items were deleted from the chart) 03 08:42 08:41 NS 0.9% (30 ml/kg) 30 ml/kg IV at bolus once; Sepsis Protocol ordered. jr8 jr8 12:06 11:42 Hospitalization Ordered by A Radha SCHMIDT for Inpatient Admission. Preliminary em1 diagnosis is Pneumonia due to other specified bacteria; Sepsis; Influenza due to identified novel influenza A virus; Acute respiratory failure with hypoxia. Bed requested for Intensive Care Unit. Status is Inpatient Admission. Condition is Fair. Problem is new. Symptoms have improved. UTI on Admission? No. jr8 14:17 12:06 01/13/2019 11:42 Hospitalization Ordered by A Radha SCHMIDT for Inpatient Admission. bp Preliminary diagnosis is Pneumonia due to other specified bacteria; Sepsis; Influenza due to identified novel influenza A virus; Acute respiratory failure with hypoxia. Bed requested for Intensive Care Unit. Status is Inpatient Admission. Condition is Fair. Problem is new. Symptoms have improved. UTI on Admission? No. em1
--- NOTE | 2019-01-13 11:44 | ER ---
Nurse's Notes [facility] Name: Lydia Hanson Age: 58 yrs Sex: Female : 1960 Arrival Date: 01/13/2019 Time: 08:34 Bed 2 Private MD: Diagnosis: Pneumonia due to other specified bacteria;Sepsis;Influenza due to identified novel influenza A virus;Acute respiratory failure with hypoxia Presentation: 01/13 08:32 Presenting complaint: Patient states: was diagnosed with flu yesterday, today was iw extremely SOB, weak, fever, pt arrives to ER, pale , tachypneic 37% on RA, RT called to bedside for BiPAP, pt placed on NRB up to 90%, MICHELLE Hernandez at beside. Transition of care: patient was not received from another setting of care. Onset of symptoms was January 12, 2019. Risk Assessment: Do you want to hurt yourself or someone else? Patient reports no desire to harm self or others. Initial Sepsis Screen: Does the patient meet any 2 criteria? RR > 20 per min. HR > 90 bpm. Yes. Care prior to arrival: None. 08:32 Method Of Arrival: Wheelchair iw 08:32 Acuity: RIA 2 iw 08:40 Initial Sepsis Screen: Does the patient have a suspected source of infection? Yes: bp Productive cough/pneumonia If YES to both, name of provider notified: David MARTINEZ. Triage Assessment: 08:40 General: Appears distressed, uncomfortable, obese, Behavior is appropriate for age. bp Respiratory: Reports shortness of breath cough that is Onset: The symptoms/episode began/occurred this morning, the patient has severe shortness of breath. Historical: - Allergies: 08:40 CEPHALOSPORINS; iw 08:40 Codeine; iw 08:40 Latex, Natural Rubber; iw 08:40 PENICILLINS; iw 08:40 TETRACYCLINES; iw - Home Meds: 08:55 montelukast 10 mg oral tab 1 tab once daily [Active]; levothyroxine 50 mcg tab 1 tab 6 iw days per week, skip day [Active]; Bystolic 5 mg oral tab 1 tab once daily [Active]; prazosin 1 mg Oral cap 1 cap 3 times per day [Active]; ursodiol 300 mg Oral cap 3 times per day [Active]; Ambien 10 mg Oral tab 1 tab once daily [Active]; duloxetine oral 90 mg oral once daily [Active]; aripiprazole 5 mg oral tab 1 tab once daily [Active]; bupropion HCl 150 mg Oral TbER 1 tab once daily [Active]; omeprazole 40 mg Oral cpDR 1 cap once daily [Active]; dexmethylphenidate 20 mg oral BP50 1 cap once daily [Active]; ondansetron HCl 4 mg Oral tab nightly [Active]; Xyrem oral 4.5 GM oral 2 times per day [Active]; Co Q-10 oral oral daily [Active]; Crestor 5 mg oral tab 1 tab once daily [Active]; clonazepam 1 mg Oral tab as needed [Active]; hydroxychloroquine 200 mg oral tab 2 tabs once daily [Active]; valsartan-hydrochlorothiazide 80-12.5 mg oral tab 1 tab once daily [Active]; Restasis 0.05 % ophthalmic dpet 1 drop 2 times per day [Active]; - PMHx: 08:40 Depression; Hyperlipidemia; Hypertension; narcolepsy; Thyroid problem; V-tach; iw - Immunization history:: Adult Immunizations up to date. - Ebola Screening: : Patient negative for fever greater than or equal to 101.5 degrees Fahrenheit, and additional compatible Ebola Virus Disease symptoms Patient denies exposure to infectious person Patient denies travel to an Ebola-affected area in the 21 days before illness onset No symptoms or risks identified at this time. - Social history:: Smoking status: unknown. Screenin:44 Abuse screen: Denies threats or abuse. Denies injuries from another. Nutritional bp screening: No deficits noted. On no prescribed diet. Tuberculosis screening: No symptoms or risk factors identified. Fall Risk None identified. Assessment: 08:40 General: Appears distressed, uncomfortable, obese, Behavior is cooperative, appropriate bp for age, drowsy. Pain: Denies pain. Neuro: Level of Consciousness is obeys commands, lethargic, Oriented to person, place, time, situation, Appropriate for age. Cardiovascular: Capillary refill is > 3 seconds Rhythm is sinus rhythm. Respiratory: Airway is patent Respiratory effort is labored, Respiratory pattern is tachypnea Breath sounds are coarse Breath sounds with crackles. GI: No signs and/or symptoms were reported involving the gastrointestinal system. : No signs and/or symptoms were reported regarding the genitourinary system. EENT: No deficits noted. Derm: Skin is clammy, Skin is pale, Skin temperature is cool. Musculoskeletal: Circulation, motion, and sensation intact. Range of motion: intact in all extremities. 09:15 Reassessment: ECHO AT B/S. bp 10:58 Reassessment: PT TO RADIOLOGY ON NRB. bp 11:12 Reassessment: PT RETURNED FROM CT, ALL CURRENT ORDERS COMPLETED, BIPAP IN PLACE. bp Vital Signs: 08:35 BP 140 / 87; Pulse 117; Resp 40 S; Pulse Ox 37% on R/A; Weight 87.54 kg; bp 08:44 BP 120 / 64; Pulse 89; Resp 34; Pulse Ox 100% on BiPAP; bp 09:10 Temp 98.9(TE); iw 09:15 BP 121 / 59; Pulse 88; Resp 38; Pulse Ox 97% ; bp 09:30 BP 118 / 61; Pulse 89; Resp 20; Pulse Ox 98% on BiPAP; bp 10:00 BP 105 / 54; Pulse 85; Resp 30; Pulse Ox 92% on BiPAP; bp 11:00 BP 115 / 53; Pulse 82; Resp 29; Pulse Ox 93% on BiPAP; bp 13:00 BP 133 / 60; Pulse 83; Resp 38; Pulse Ox 92% ; bp ED Course: 08:34 Patient arrived in ED. em1 08:40 Triage completed. iw 08:40 Ziyad Zamroa, RN is Primary Nurse. bp 08:40 David Landaverde PA is PHCP. jr8 08:40 Akil Bull MD is Attending Physician. jr8 08:44 Patient has correct armband on for positive identification. Placed in gown. Bed in low bp position. Call light in reach. Side rails up X2. 08:44 Inserted saline lock: 20 gauge in right antecubital area, using aseptic technique. bp Blood collected. 08:47 X-ray completed. Portable x-ray completed in exam room. Patient tolerated procedure jb2 well. 08:47 Chest Single View XRAY In Process Unspecified. EDMS 09:05 EKG done, by aircraft engine technician. reviewed by David MARTINEZ. at1 10:07 Notified Nurse Practitioner and/or Physician [employer] Experimental Mechanic of a critical lab result(s), iw Lactate=7.9. 11:01 CT completed. Patient tolerated procedure well. Patient moved to CT via stretcher. sj Patient moved back from CT. 11:05 CT Chest For PE Angio In Process Unspecified. EDMS 11:42 Santosh Garcia MD is Hospitalizing Provider. jr8 13:36 No provider procedures requiring assistance completed. Patient admitted, IV remains in bp place. 13:38 Arm band placed on. bp Administered Medications: 08:42 CANCELLED (Physician Discretion): NS 0.9% (30 ml/kg) 30 ml/kg IV at bolus once; Sepsis jr8 Protocol 09:00 Drug: LevaQUIN 500 mg Volume: 100 ml; Route: IVPB; Infused Over: 60 mins; Site: right bp antecubital; 10:00 Follow up: IV Status: Completed infusion; IV Intake: 100ml bp 10:00 Drug: vancoMYCIN 1 grams Route: IVPB; Infused Over: 2 hrs; Site: right antecubital; bp 12:00 Follow up: IV Status: Completed infusion; IV Intake: 250ml bp 10:30 Drug: NS 0.9% 1000 ml Route: IV; Rate: 1000 ml; Site: right antecubital; bp 11:30 Follow up: IV Status: Completed infusion; IV Intake: 1000ml bp 11:45 Drug: NS 0.9% (30 ml/kg) 30 ml/kg Route: IV; Rate: bolus; Site: right antecubital; bp 14:01 Follow up: IV Status: Infusion continued upon admission bp Intake: 10:00 IV: 100ml; Total: 100ml. bp 11:30 IV: 1000ml; Total: 1100ml. bp 12:00 IV: 250ml; Total: 1350ml. bp Outcome: 11:42 Decision to Hospitalize by Provider. jr8 13:36 Admitted to ICU accompanied by nurse, accompanied by tech, family with patient, via bp stretcher, room 1, with oxygen, on monitor, with chart, Report called to MADISON GARCIA RN 13:37 Condition: stable bp 13:37 Instructed on the need for admit. 14:17 Patient left the ED. bp Signatures: Dispatcher [employer] EDMS Russell Forrester Susan sj Williams, Irene, RN RN Noe Adrian em1 David Landaverde, MICHELLE PA jr8 Emilie Benoit, dynamics ax technical architect EKG Tat1 Sera, Ziyad, RN RN bp Corrections: (The following items were deleted from the chart) 08:50 08:35 BP 140 / 87; Pulse 117bpm; Resp 40bpm; Spontaneous; Pulse Ox 37% RA; iw bp 08:50 08:44 BP 120 / 64; Pulse 87bpm; Resp 37bpm; Spontaneous; Pulse Ox 100% BiPAP; iw bp 08:50 08:44 BP 120 / 64; Pulse 89bpm; Resp 34bpm; Pulse Ox 100%; bp bp
--- NOTE | 2019-01-13 11:48 | ECHO ---
HEIGHT: 5 ft 7 in WEIGHT: 193 lb oz DATE OF STUDY: 01/13/[address]: Cecil Landaverde 2-DIMENSIONAL: YES M.MODE: YES DOPPLER: YES COLOR FLOW: YES TDS: NO PORTABLE: YES DEFINITY: NO BUBBLE STUDY: NO DIAGNOSIS: NEW ONSET HEART FAILURE CARDIAC HISTORY: CATHERIZATION: NO SURGERY: NO PROSTHETIC VALVE: NO PACEMAKER: NO MEASUREMENTS (cm) DIASTOLIC (NORMALS) SYSTOLIC (NORMALS) IVSd 1.2 (0.6-1.2) LA Diam (1.9-4.0) LVEF 77% LVIDd 3.6 (3.5-5.7) LVIDs 2.0 (2.0-3.5) %FS 45% LVPWd 1.3 (0.6-1.2) Ao Diam 2.5 (2.0-3.7) 2 DIMENSIONAL ASSESSMENT: RIGHT ATRIUM: NORMAL LEFT ATRIUM: NORMAL RIGHT VENTRICLE: NORMAL LEFT VENTRICLE: NORMAL TRICUSPID VALVE: NORMAL MITRAL VALVE: NORMAL PULMONIC VALVE: NORMAL AORTIC VALVE: NORMAL PERICARDIAL EFFUSION: NONE AORTIC ROOT: NORMAL LEFT VENTRICULAR WALL MOTION: NORMAL. DOPPLER/COLOR FLOW: NORMAL. COMMENTS: NORMAL 2D ECHO WITH DOPPLER. TECHNOLOGIST: ALMA MCKEE
[2019-01-13] MEDS ORDERED: NA CHLORIDE 0.9% 2,000 ML ONE (11:50)
[2019-01-13] MEDS ORDERED: ONDANSETRON 4 MG/2 ML VIAL IV PRN (13:33)
[2019-01-13] MEDS ORDERED: ACETAMINOPHEN 500 MG TAB PO PRN (13:33)
[2019-01-13] MEDS ORDERED: NA CHLORIDE 0.9% 1,000 ML IV SCH (13:33)
[2019-01-13] MEDS ORDERED: MORPHINE 2 MG/ML SYR IV PRN (13:33)
[2019-01-13] MEDS ORDERED: VANCOMYCIN 500 MG in NA CHLORIDE 0.9% 100 ML IVPB ONE (15:00)
[2019-01-13] MEDS ORDERED: FUROSEMIDE 20 MG/ 2ML VIAL IV ONE (16:00)
[2019-01-13] MEDS: OSELTAMIVIR 75 MG CAP PO SCH ×2 (16:04→21:00)
[2019-01-13] MEDS: METHYLPREDNISOLONE 40 MG INJ IV SCH (16:11)
--- NOTE | 2019-01-13 17:20 | P.CNS ---
Date of Consult: 01/13/19 Chief Complaint: Respiratory failure pneumonia History of Present Illness: Patient is 58 years of age well known to me with a history of asthma and sleep apnea in addition to possible narcolepsy admitted with a 4 day history of influenza a became progressively worse admitted here was hypoxic currently on BiPAP she complains of some chest discomfort diarrhea dry cough and was found to have bilateral pulmonary infiltrates Allergies codeine Allergy (Verified 01/19/16 14:48) Itching/Hives/Rash Cephalosporins Adverse Reaction (Verified 01/19/16 14:48) Anaphylaxis Penicillins Adverse Reaction (Verified 01/19/16 14:34) Itching/Hives/Rash tetracycline Adverse Reaction (Verified 01/19/16 14:48) Anaphylaxis Home Medications: Dexmethylphenidate HCl [Dexmethylphenidate HCl ER] 20 mg PO SEECOM 01/19/16 Dexmethylphenidate HCl [Dexmethylphenidate HCl Xr] 40 mg PO DAILY 01/19/16 ARIPiprazole [Abilify] 5 mg PO DAILY 08/10/18 Duloxetine HCl [Cymbalta] 90 mg PO DAILY 08/10/18 Hydroxychloroquine [Plaquenil] 400 mg PO DAILY 08/10/18 Levothyroxine [Synthroid] 50 mcg PO [id number] 08/10/18 Montelukast [Singulair] 10 mg PO DAILY 08/10/18 Nebivolol HCl [Bystolic] 5 mg PO BID 08/10/18 Omeprazole [Prilosec] 40 mg PO DAILY 08/10/18 Ondansetron [Zofran] 4 mg PO BEDTIME PRN 08/10/18 Prazosin HCl [Minipress] 3 mg PO BEDTIME 08/10/18 Rosuvastatin [Crestor] 5 mg PO DAILY 08/10/18 Sodium Oxybate [Xyrem] 4.5 gm PO BEDTIME 08/10/18 Ubidecarenone/Vitamin E [Co Q-10 50 mg Softgel] 1 each PO DAILY 08/10/18 Ursodiol [Actigall] 300 mg PO BID 08/10/18 Valsartan/Hydrochlorothiazide [Valsartan-Hctz 80-12.5 mg Tab] 1 each PO DAILY Zolpidem Tartrate [Ambien] 10 mg PO BEDTIME 08/10/18 buPROPion HCl [Bupropion HCl Sr] 150 mg PO DAILY 08/10/18 clonazePAM [Klonopin] 1 mg PO TIDP PRN 08/10/18 Oseltamivir [Tamiflu] 75 mg PO BID 01/13/19 - Past Medical/Surgical History Diabetic: No -: depression -: reflux -: high cholesterol -: htn -: ckd #3 -: Sleep apnea -: breast implants -: cholecystectomy -: hysterectomy -: carpal tunnel surgery - Family History Mother Medical History: Diabetes, Cancer Father Medical History: Heart disease, Other (see notes) Notes: asbestosis exposure, of mesothelioma - Social History Smoking Status: Unknown if ever smoked Alcohol use: Yes CD- Drugs: No Caffeine use: Yes Place of Residence: Home Review of Systems General: Weakness Respiratory: Cough, Shortness of Breath Gastrointestinal: Diarrhea Physical Examination Temp Pulse Resp BP Pulse Ox 98.9 F 81 26 H 111/54 L 98 01/13/19 09:10 01/13/19 16:11 01/13/19 16:00 01/13/19 16:11 01/13/19 16:00 General: Alert, Oriented x3 HEENT: Atraumatic Neck: Supple Respiratory: Clear to auscultation bilaterally Cardiovascular: No edema, Regular rate/rhythm, Normal S1 S2 Gastrointestinal: Normal bowel sounds, Soft and benign Laboratory Data (last 24 hrs) 01/13/19 08:50: PT 14.1 H, INR 1.20, APTT 31.7 01/13/19 08:50: WBC 6.2, Hgb 13.8, Hct 40.7, Plt Count 136 L 01/13/19 08:50: Sodium 137, Potassium 3.2 L, BUN 13, Creatinine 1.32 H, Glucose 131 H, Total Bilirubin 0.6, AST 94 H, ALT 32, Alkaline Phosphatase 84, Lipase 81 - Problems (1) ARDS (adult respiratory distress syndrome) Current Visit: Yes Status: Acute Plan: Patient is 58 years of age admitted with influenza infection and by bilateral pulmonary infiltrates ARDS continue with antibiotics I have adjusted her BiPAP machine Dc IV fluids at Lasix steroids patient's white count is normal patient is influenza A positive blood cultures pending patient has a history of obstructive airways disease
[2019-01-13] MEDS: ENOXAPARIN 40 MG/0.4 ML SQ SCH (17:36)
[2019-01-13 17:40] LABS: Urine Appearance CLEAR; Urine Bilirubin NEGATIVE (NEG); Urine Blood 3+ (NEG); Urine Color YELLOW; Urine Glucose NEGATIVE (NEG); Urine Protein TRACE (NEG); Urine Specific Gravity 1.015 (1.005-1.030); Urine Urobilinogen 0.2 mg/dL (0.2-1.0); Urine pH 6.5 (5.0-7.0)
[2019-01-13 17:59] LABS: Troponin I 0.09 ng/mL (0.0-0.045)
[2019-01-13 18:02] VITALS: BMI 30.2
[2019-01-13 18:36] LABS: Urine Bacteria <20 /HPF (<20); Urine Culture Reflex Order NOT NEEDED
--- NOTE | 2019-01-13 19:09 | EKG ---
Test Date: 2019-01-13 Test Time: 08:42:26 Multifocal Lens Assembler: RIANA MEASUREMENT RESULTS: Intervals: Rate: 86 UT: 154 QRSD: 82 QT: 342 QTc: 409 [place]: P: 53 UT: 154 QRS: 43 T: 34 INTERPRETIVE STATEMENTS: Normal sinus rhythm Nonspecific ST and T wave abnormality Abnormal ECG Compared to ECG 08/10/2018 11:49:56 ST (T wave) deviation now present Electronically Signed On 01-13-19 19:08:19 WAGE ADJUSTER by Kayode Ortiz
[2019-01-13 19:45] LABS: Magnesium 1.5 mg/dL (1.8-2.4); Potassium 3.2 mmol/L (3.5-5.1)
[2019-01-13] MEDS: ARFORMOTEROL TARTRATE 15 MCG/2 ML VIAL.NEB NEB SCH (20:18)
[2019-01-13] MEDS: IPRATROPIUM BROM 0.5MG/2.5ML NEB PRN (20:18)
[2019-01-13] MEDS: ALBUTEROL 2.5 MG/3 ML NEB SOL NEB PRN (20:18)
[2019-01-13] MEDS ORDERED: VANCOMYCIN/NS 1 gm 1 GM/250 ML BAG IVPB SCH (23:00)
[2019-01-14] MEDS: METHYLPREDNISOLONE 40 MG INJ IV SCH ×3 (01:51→17:28)
[2019-01-14] MEDS: ALBUTEROL 2.5 MG/3 ML NEB SOL NEB PRN ×3 (04:04→14:00)
[2019-01-14] MEDS: IPRATROPIUM BROM 0.5MG/2.5ML NEB PRN ×3 (04:04→14:00)
[2019-01-14 05:19] LABS: Absolute Lymphocytes (CBC) 0.3 K/uL (0.7-4.9); Absolute Monocytes 0.1 K/uL (0.1-1.3); Hematocrit 33.2 % (36.0-45.0); Lymphocytes % 7.7 % (15.3-44.8); Monocytes % 3.3 % (3.3-12.3); RBC Red Blood Cell Count 3.62 M/uL (3.86-4.86)
[2019-01-14 05:36] LABS: Potassium 3.2 mmol/L (3.5-5.1)
--- NOTE | 2019-01-14 06:21 | HP ---
Date of Admission: 01/13/2019 Chief Complaint: Shortness of breath. History Of Present Illness: DICTATION ENDS HERE INDER/MODL Voice ID: [id number]
--- NOTE | 2019-01-14 06:42 | HP ---
Date of Admission: 01/13/2019 Chief Complaint: Shortness of breath and diarrhea. History Of Present Illness: This is a 58-year-old female patient, who came in to see me yesterday evening at the office with complaints of not feeling good. She was out of town and came back home last week on Friday and as of Friday, she started to have problem with cough, sore throat, clear nasal discharge, fevers, chills. No vomiting. No diarrhea. No abdominal pain. No shortness of breath. After I evaluated her at office, I determined that the patient had signs and symptoms of influenza and she was started on Tamiflu 75 mg twice a day and the patient did start to take this medication yesterday evening and was advised to take [id number]-hszkext cough medicine and Tylenol and/or Motrin for fever or body ache. The patient was also advised to drink 1 bottle of Gatorade yesterday evening and another bottle today on top of her other food and liquids to avoid any problem with dehydration. The patient came into emergency room this morning with shortness of breath and diarrhea after she was evaluated in the emergency room. She was admitted to intensive care unit with ARDS problem. The patient was placed on BiPAP after her evaluation in the ER and she has responded well to BiPAP. She had significant hypoxia when she came into the emergency room this morning. When I saw her, hemodynamically, she was stable. Oxygen saturation around 94% on BiPAP. She received 1 dose of Lasix IV after she came into ICU per Dr. Hagen and she has already diuresed about 1400 cc of urine after this 20 mg of Lasix and there is another approximately 400 cc of urine present in the bag. She is feeling better this evening compared to earlier this morning when she came in. Her and sister were present at bedside. Medications: List reviewed. Review of Systems: Respiratory: As mentioned above. Constitutional: As mentioned above. GI: As mentioned above. All other systems reviewed and negative. Allergies: SHE IS LISTED ALLERGIC TO CEPHALOSPORIN, CODEINE, MINOCYCLINE, PENICILLIN, NUCYNTA AND TETRACYCLINE. Family History: Significant for hyperlipidemia and lupus. Social History: Negative for smoking and alcohol use. Past Surgical History: Breast augmentation, cholecystectomy, hysterectomy, and tonsillectomy. Past Medical History: Significant for anxiety, depression, hyperlipidemia, hypothyroidism, thrombocytopenia, sleep apnea, hypertension and narcolepsy. Physical Examination: Vital Signs: Height 5 feet 7 inches, weight 192 pounds, respiratory rate 40, blood pressure 140/87, pulse 117, oxygen saturation 37%. General: Awake, alert, oriented, not in distress. HEENT: Head atraumatic, normocephalic. Conjunctivae nonerythematous. Sclerae white. Mouth, no thrush or edema noted. Ears/Nose, no mass, lesion, discharge noted. Neck: Supple. No JVD, lymph nodes, bruit, thyromegaly noted. Lungs: Bilateral good equal air entry. Presence of diminished air entry in lower lung draper with some rales in lower lung draper. Heart: Normal heart sounds, no murmur or gallop. Abdomen: Soft, bowel sounds normal. No guarding, rigidity, tenderness, mass, hepatosplenomegaly, distention, or bruit noted. Extremities: No leg edema. No calf tenderness. Skin: No rash, ulcer, cellulitis. Lymphatics: No lymph node enlargement in neck, supraclavicular, infraclavicular region. Neuro: No focal neurological deficit. Chest: Unremarkable. External Genitalia: Deferred. Rectal: Deferred. Laboratory Data: White count 6.2, hemoglobin 13.8, platelets 136. Blood gas; pH 7.46, pCO2 33.9, pO2 104, saturation 97% on 100% FiO2. Sodium 137, potassium 3.2, chloride 100, bicarb 22, BUN 13, creatinine 1.32, glucose 131, lactic acid 7.9, SGOT 94, SGPT 32. CPK 1712. Procalcitonin 0.74. Lipase 81. Urinalysis, 5-10 rbc, leukocyte esterase negative, bacteria less than 20. Chest x-ray, moderate to severe bilateral pulmonary opacities, greater on the left than the right side. CT scan of the chest per PE protocol, negative for pulmonary embolism, 11 mm right thyroid nodule, extensive bilateral pulmonary opacity. EKG, sinus rhythm, nonspecific ST-T changes. Echocardiogram showed normal ejection fraction 77%. Normal echocardiogram. Impression: 1. Acute respiratory distress syndrome. 2. Influenza type A with pneumonia. 3. Hypertension. 4. Hyperlipidemia. 5. Hypothyroidism. 6. Narcolepsy. 7. Sleep apnea. 8. Anxiety. 9. Depression. 10. Thrombocytopenia. Plan: Admit the patient to hospital for further evaluation and management of this problem. The patient is appropriate for inpatient and is expected to spend 2 midnights in hospital. DVT prophylaxis with Lovenox will be given. Empiric antibiotics will be given at this point until at least for next couple of days or so and maybe longer depending on her condition. At this point, the patient's ARDS problem that we see is due to underlying influenza type A and she has taken so far 3 doses of Tamiflu, 1 dose last night, 1 dose this morning before she came into the ER and 3rd dose was given in ICU. We will continue Tamiflu. Pulmonary consultation from Dr. Hagen was requested and he has evaluated the patient as well and will continue to follow up with him. Mejía catheter was placed. Intake and output records will be monitored. We will repeat blood work this evening for followup on electrolytes and replace electrolyte per protocol. Today, she was not able to take the BiPAP off long enough to eat and drink anything. We are hoping that once her condition improves, maybe by tomorrow, then she might be able to tolerate some diet by mouth. We will keep her in ICU until her condition improves. Details and plan of treatment discussed with the patient and her family members. INDER/MARIA Voice ID: [id number]
[2019-01-14] MEDS ORDERED: FUROSEMIDE 20 MG/ 2ML VIAL IV ONE (07:43)
--- NOTE | 2019-01-14 08:02 | RAD REPORT ---
EXAM DESCRIPTION: RAD - Chest Single View - 01/14/2019 6:48 am CLINICAL HISTORY: Respiratory failure COMPARISON: January 13 TECHNIQUE: AP portable chest image was obtained 0642 hours . FINDINGS: Lung volumes remain relatively low. Pulmonary edema pattern has progressed with worsening alveolar opacification throughout the lung draper. Heart size is stable. Trachea is midline. No pneum othorax or large pleural effusion. No acute bony abnormality seen. No acute aortic findings suspected . IMPRESSION: Worsening of the pulmonary edema pattern since prior imaging.
[2019-01-14] MEDS: ARFORMOTEROL TARTRATE 15 MCG/2 ML VIAL.NEB NEB SCH ×2 (08:05→20:00)
--- NOTE | 2019-01-14 08:15 | P.PN ---
Subjective Date of Service: 01/14/19 Chief Complaint: Respiratory failure pneumonia Subjective: Improving (Patient is doing better still requiring BiPAP significant desaturation off BiPAP patient still has diarrhea) Review of Systems Respiratory: Cough, Shortness of Breath Physical Examination - Vital Signs Temperature: 98.4 F Blood Pressure: 128/65 Pulse: 75 Respirations: 31 Pulse Ox (%): 91 - Physical Exam General: Alert, Mild distress Respiratory: Clear to auscultation bilaterally Cardiovascular: No edema, Regular rate/rhythm - Studies Laboratory Data (last 24 hrs) 01/13/19 08:50: PT 14.1 H, INR 1.20, APTT 31.7 01/13/19 08:50: WBC 6.2, Hgb 13.8, Hct 40.7, Plt Count 136 L 01/13/19 08:50: Sodium 137, Potassium 3.2 L, BUN 13, Creatinine 1.32 H, Glucose 131 H, Total Bilirubin 0.6, AST 94 H, ALT 32, Alkaline Phosphatase 84, Lipase 81 Microbiology Data (last 24 hrs): 01/13/19 08:50 Nasopharnyx Influenza Type A Antigen Screen - Final 01/13/19 08:50 Nasopharnyx Influenza Type B Antigen Screen - Final Assessment & Plan - Problems (Diagnosis) (1) ARDS (adult respiratory distress syndrome) Current Visit: Yes Status: Acute Plan: Patient is improving chest x-ray looks better Tor[place] to wean off the BiPAP I have added vitamin-C thiamin continue with steroids Dc vancomycin increase levofloxacin to 750 mg daily CRP level
[2019-01-14 08:31] LABS: Magnesium 1.8 mg/dL (1.8-2.4); Phosphorus 2.3 mg/dL (2.5-4.9)
[2019-01-14] MEDS: ENOXAPARIN 40 MG/0.4 ML SQ SCH (08:31)
[2019-01-14] MEDS: ASCORBIC ACID 500 MG TABLET PO SCH ×2 (08:33→21:04)
[2019-01-14] MEDS: OSELTAMIVIR 75 MG CAP PO SCH ×2 (08:33→21:02)
[2019-01-14] MEDS: Levofloxacin 750mg IV 750 MG/150 ML BAG IV SCH (08:35)
[2019-01-14] MEDS ORDERED: Levofloxacin500mg IV 500 MG/100 ML BAG IV SCH (09:00)
[2019-01-14 09:29] LABS: Arterial Blood Carboxyhemoglob 1.3 % (0-1.5); Blood Gas Oxyhemoglobin 78.3 % (94-97); Blood O2 Saturation 79.6 % (92-98.5)
[2019-01-14] MEDS ORDERED: MAGNESIUM SULFATE 1 gm IVPB 1 GM/100 ML BAG IV ONE (09:51)
[2019-01-14] MEDS ORDERED: POTASSIUM CL SA 10 MEQ TAB PO ONE (09:51)
[2019-01-14] MEDS: ENSURE ENLIVE 237 ML CAN PO SCH ×2 (10:30→21:02)
[2019-01-14] MEDS: POTASS/SODIUM PHOSPHATE 1 PKT POWD.PACK PO SCH ×3 (10:41→15:34)
[2019-01-14] MEDS: THIAMINE 200 MG/2 ML INJ IVP SCH ×2 (10:41→21:03)
[2019-01-14] MEDS ORDERED: VANCOMYCIN 1.5 GM in NA CHLORIDE 0.9% 500 ML IVPB SCH (15:00)
[2019-01-14] MEDS: clonazePAM 1 MG TAB PO PRN ×2 (15:34→21:04)
[2019-01-14] MEDS: DIPHENOX/ATROP SULF 1 TAB PO PRN (17:45)
[2019-01-14] MEDS ORDERED: POTASSIUM 25 MEQ EFFERV TAB PO ONE (23:18)
[2019-01-14] MEDS ORDERED: KCL 20 MEQ/100 mL IVPB 20 MEQ/100 ML BAG IV SCH (23:45)
[2019-01-15] MEDS: METHYLPREDNISOLONE 40 MG INJ IV SCH ×3 (00:12→16:51)
[2019-01-15] MEDS: LEVOTHYROXINE SOD 0.05 MG TABLET PO SCH (05:35)
[2019-01-15 05:50] LABS: Magnesium 2.4 mg/dL (1.8-2.4); Phosphorus 2.5 mg/dL (2.5-4.9); Potassium 3.9 mmol/L (3.5-5.1)
[2019-01-15] MEDS: ARFORMOTEROL TARTRATE 15 MCG/2 ML VIAL.NEB NEB SCH ×2 (07:51→20:50)
[2019-01-15] MEDS ORDERED: POTASSIUM CL SA 10 MEQ TAB PO ONE (08:00)
--- NOTE | 2019-01-15 08:23 | RAD REPORT ---
EXAM DESCRIPTION: RAD - Chest Single View - 01/15/2019 6:36 am CLINICAL HISTORY: Respiratory failure Chest pain. COMPARISON: Chest Single View dated 01/14/2019; Chest Single View dated 01/13/2019; Chest Pa And Lat (2 Views) dated 08/14/2018; Chest Single View dated 08/10/2018; Chest For Pe Angio dated 01/13/2019 FINDINGS: Portable technique limits examination quality. Mild improvement in the bilateral pulmonary opacities noted since the comparative study, particularly on the right. The heart is upper limit of normal in size. No displaced fractures. IMPRESSION: Mild improvement lung aeration is noted since comparative study, particularly on the rig ht.
--- NOTE | 2019-01-15 10:05 | P.PN ---
Subjective Date of Service: 01/15/19 Chief Complaint: Respiratory failure pneumonia Subjective: Improving (Patient's condition is steadily improving very alert responsive cooperative still on a BiPAP) Review of Systems General: Weakness Respiratory: Shortness of Breath Physical Examination - Vital Signs Temperature: 96.7 F Blood Pressure: 126/58 Pulse: 62 Respirations: 21 Pulse Ox (%): 99 - Physical Exam General: Alert, Oriented x3 Neck: Supple Respiratory: Clear to auscultation bilaterally, Diminished Cardiovascular: No edema, Normal S1 S2 Assessment & Plan - Problems (Diagnosis) (1) ARDS (adult respiratory distress syndrome) Current Visit: Yes Status: Acute Plan: Patient admitted with ARDS presume secondary to influenza continue with steroids home medications reconciled cultures and negative C. difficile is negative continue with levofloxacin titrate sat to 90% do ABGs advanced nutrition chest x-ray shows slight improvement echocardiogram normal
[2019-01-15] MEDS: THIAMINE 200 MG/2 ML INJ IVP SCH ×2 (10:15→20:06)
[2019-01-15] MEDS: POTASS/SODIUM PHOSPHATE 1 PKT POWD.PACK PO SCH ×3 (10:15→13:19)
[2019-01-15] MEDS: ENOXAPARIN 40 MG/0.4 ML SQ SCH (10:15)
[2019-01-15] MEDS: ASCORBIC ACID 500 MG TABLET PO SCH ×2 (10:15→20:07)
[2019-01-15] MEDS: ENSURE ENLIVE 237 ML CAN PO SCH ×3 (10:16→20:06)
[2019-01-15] MEDS: Levofloxacin 750mg IV 750 MG/150 ML BAG IV SCH (10:16)
[2019-01-15] MEDS: OSELTAMIVIR 75 MG CAP PO SCH ×2 (10:16→20:06)
[2019-01-15 10:51] LABS: Arterial Blood Carboxyhemoglob 1.4 % (0-1.5); Blood Gas Oxyhemoglobin 85.2 % (94-97); Blood O2 Saturation 86.8 % (92-98.5)
[2019-01-15] MEDS: BUPROPRION HCL S.R. 150MG TAB PO SCH (10:51)
[2019-01-15] MEDS: DIPHENOX/ATROP SULF 1 TAB PO PRN (10:52)
[2019-01-15] MEDS: ARIPiprazole 5 MG TAB PO SCH (10:52)
[2019-01-15] MEDS: DULOXETINE 30 MG CAP PO SCH (10:52)
[2019-01-15] MEDS: clonazePAM 1 MG TAB PO PRN ×2 (12:39→20:07)
--- NOTE | 2019-01-15 13:06 | PN ---
Date of Progress Note: 01/14/2019 Subjective: The patient was seen this morning for followup. She was lying in bed in ICU, not in dis tress, was on BiPAP with 60% oxygen. Diarrhea continues. No nausea. No vomiting. No abdominal criss n. Objective: Vital signs: Reviewed. HEENT: Unremarkable. Lungs: Bilateral equal entry. Rales in the lower lung field, unchanged from yesterday. Heart: Sounds normal. Abdomen: Soft. Bowel sounds normal. No guarding, rigidity, tenderness, or distention. Extremities: No leg edema. Laboratory Data: White count 3.3, hemoglobin 11.4, platelets 117. Sodium 143, potassium 3.2, chlori de 109, bicarb 26, BUN 14, creatinine 0.88, glucose 182. Impression: 1.Acute respiratory distress syndrome. 2.Acute respiratory failure. 3.Influenza type A. 4.Diarrhea. Plan: We will go ahead and continue current support with BiPAP oxygen, nebulizer treatment, and cont inue to follow up with Dr. Hagen. We will continue current Levaquin. The patient is on IV steroi d, IV thiamine. We will go ahead and start her anxiety medication and thyroid medications per order, and consider to start her other antidepressant medication either today or tomorrow. The patient is currently critically ill, but stable. Chest x-ray today shows worsening of lung infiltrate compared to yesterday. I did talk to her about nutritional support and she is not able to keep the BiPAP off long enough to finish a meal, so we will try to give her Ensure 1 can 3 times a day to see if she can at least get that to get some nutritional support. Details were discussed with nursing staff to help her with that. INDER/MODL Voice ID: [id number] Report ID: [id number]
[2019-01-15] MEDS: ZOLPIDEM TARTRATE 10 MG TABLET PO SCH (20:07)
[2019-01-15] MEDS: ALBUTEROL 2.5 MG/3 ML NEB SOL NEB PRN (20:50)
[2019-01-15] MEDS: IPRATROPIUM BROM 0.5MG/2.5ML NEB PRN (20:50)
--- NOTE | 2019-01-15 22:52 | PN ---
Date of Progress Note: 01/15/2019 Subjective: The patient was seen this morning for followup. She was lying in bed, not in any distre ss. Her was with her at bedside. She was on BiPAP with 45% FiO2 this morning. Yesterday, s he was on 60% FiO2. Objective: Vital Signs: Reviewed. HEENT Examination: Unremarkable. Lungs: Bilateral equal air entry. No rales. No rhonchi. Heart: Sounds normal. Abdomen: Soft. Bowel sounds normal. No guarding, rigidity, tenderness, or distention. Extremities: No leg edema. Laboratory Data: Sodium 142, potassium 3.9, chloride 106, bicarb 29, BUN 20, creatinine 0.82, glucos e 195. Chest x-ray shows improvement in bilateral pulmonary infiltrate. Impression: 1.Acute respiratory distress syndrome. 2.Acute respiratory failure. 3.Influenza. 4.Diarrhea. 5.Depression. 6.Anxiety. Plan: Patient is requesting some of her home medications to be resumed. Yesterday, we started her o n anxiety and thyroid medication. Today, we will start her on antidepressant medication. Lovenox wi ll be continued per order for DVT prophylaxis. We will continue Levaquin and Tamiflu. Dr. Hagen is managing the patient's pulmonary condition and today, after I saw her, Dr. Hagen was able to we an her off the BiPAP and she is on oxygen per face mask. She is tolerating that well. Yesterday, sh e tolerated Ensure very well and we will continue diet and nutritional supplement with Ensure. Physi nikos therapy consultation was requested today. Chest x-ray shows improvement and details were discuss ed with the patient's . Depending on her condition and x-ray tomorrow, we will decide if we can move her out of ICU to regula r room or not. INDER/MODL Voice ID: [id number] Report ID: [id number]
[2019-01-16] MEDS: METHYLPREDNISOLONE 40 MG INJ IV SCH ×3 (01:34→16:17)
[2019-01-16] MEDS: ALBUTEROL 2.5 MG/3 ML NEB SOL NEB PRN (01:55)
[2019-01-16] MEDS: IPRATROPIUM BROM 0.5MG/2.5ML NEB PRN (01:55)
[2019-01-16] MEDS: PANTOPRAZOLE 40MG TABLET PO SCH (06:10)
[2019-01-16] MEDS: clonazePAM 1 MG TAB PO PRN ×3 (06:10→20:22)
[2019-01-16] MEDS: LEVOTHYROXINE SOD 0.05 MG TABLET PO SCH (06:11)
[2019-01-16 06:45] LABS: Magnesium 2.3 mg/dL (1.8-2.4); Phosphorus 2.6 mg/dL (2.5-4.9); Potassium 4.4 mmol/L (3.5-5.1)
--- NOTE | 2019-01-16 08:02 | RAD REPORT ---
EXAM DESCRIPTION: RAD - Chest Single View - 01/16/2019 6:28 am CLINICAL HISTORY: Respiratory failure COMPARISON: January 15 TECHNIQUE: AP portable chest image was obtained 0536 hours . FINDINGS: Lung volumes are slightly shallow compared to prior imaging. Interstitial and alveolar opa cification similar to prior imaging. Heart and vasculature are normal. No measurable pleural effusion and no pneumothorax. No acute bony abnormality seen. No acute aortic findings suspected. IMPRESSION: Lung parenchymal opacification stable from prior day study. No new or progressive findin g.
[2019-01-16] MEDS: ENSURE ENLIVE 237 ML CAN PO SCH ×3 (09:00→20:22)
[2019-01-16] MEDS: ARIPiprazole 5 MG TAB PO SCH (09:23)
[2019-01-16] MEDS: BUPROPRION HCL S.R. 150MG TAB PO SCH (09:23)
[2019-01-16] MEDS: ENOXAPARIN 40 MG/0.4 ML SQ SCH (09:24)
[2019-01-16] MEDS: ASCORBIC ACID 500 MG TABLET PO SCH ×2 (09:24→20:22)
[2019-01-16] MEDS: Levofloxacin 750mg IV 750 MG/150 ML BAG IV SCH (09:24)
[2019-01-16] MEDS: OSELTAMIVIR 75 MG CAP PO SCH ×2 (09:24→20:21)
[2019-01-16] MEDS: DULOXETINE 30 MG CAP PO SCH (09:24)
[2019-01-16] MEDS: THIAMINE 200 MG/2 ML INJ IVP SCH ×2 (09:26→21:26)
[2019-01-16 09:37] LABS: Absolute Lymphocytes (CBC) 0.4 K/uL (0.7-4.9); Absolute Monocytes 0.3 K/uL (0.1-1.3); Absolute Neutrophil 4.5 K/uL (1.8-8.0); Basophils % 0.1 % (0-1.3); Hematocrit 32.4 % (36.0-45.0); Lymphocytes % 7.6 % (15.3-44.8); MPV 8.4 fL (7.6-11.3); Monocytes % 5.2 % (3.3-12.3); RBC Red Blood Cell Count 3.53 M/uL (3.86-4.86)
[2019-01-16] MEDS: ARFORMOTEROL TARTRATE 15 MCG/2 ML VIAL.NEB NEB SCH ×2 (10:10→20:00)
[2019-01-16] MEDS ORDERED: OXYBUTYNIN CHLORIDE 5 MG TAB PO ONE (10:27)
--- NOTE | 2019-01-16 17:35 | PN ---
Date of Progress Note: 01/16/2019 Subjective: The patient was seen this morning for followup. No new complaints or problems reported by the patient. She was lying in bed in ICU, not in any distress. She appears little depressed this morning. She is tolerating diet well. Diarrhea has improved. She is complaining of some left lowe r quadrant discomfort when she has bowel movement, otherwise, no abdominal pain, no nausea, no vomiti ng. She is tolerating diet well. She is no longer on BiPAP. Currently, she is on oxygen per nasal cannula, maintaining adequate amount of oxygenation. Intake and output records reviewed. Objective: Vital Signs: Reviewed. HEENT: Unremarkable. Lungs: Clear to auscultation. Heart: Sounds normal. Abdomen: Soft. Bowel sounds normal. No guarding, rigidity, tenderness, or distention. Extremities: No leg edema. Laboratory Data: Sodium 138, potassium 4.4, chloride 100, bicarb 21, creatinine 0.90, glucose 209. CBC, pending. Chest x-ray, unchanged from yesterday. Impression: 1.Acute respiratory distress syndrome. 2.Acute respiratory failure. 3.Influenza. 4.Anxiety. 5.Depression. 6.Hypertension. Plan: The patient's blood pressure was around 140/60 range today. She is maintaining adequate amoun t of oxygenation with nasal cannula oxygen, not in any respiratory distress. The patient has not amb ulated. Physical therapy consultation was requested yesterday, but as I understand from nursing floraf f, therapist has not started working with the patient yet. I have advised ICU nurse to go ahead and assist the patient to get out of bed, to sit at bedside in the chair and have therapist work with her . Remove Mejía catheter and the patient is requesting some medication prior to removal of Mejía to a void bladder spasm problem. Oxybutynin 5 mg 1 time dose was ordered for that reason. I will see her tomorrow for followup and we will consider transfer out of ICU to regular room either later today or tomorrow. Details, plan of treatment discussed with the patient and her . INDER/MODL Voice ID: [id number] Report ID: [id number]
[2019-01-16] MEDS: ZOLPIDEM TARTRATE 10 MG TABLET PO SCH (20:22)
[2019-01-17] MEDS: METHYLPREDNISOLONE 40 MG INJ IV SCH ×2 (00:40→09:02)
[2019-01-17] MEDS: LEVOTHYROXINE SOD 0.05 MG TABLET PO SCH (06:39)
[2019-01-17] MEDS: clonazePAM 1 MG TAB PO PRN ×3 (06:39→20:49)
[2019-01-17] MEDS: PANTOPRAZOLE 40MG TABLET PO SCH (06:39)
[2019-01-17] MEDS: ARFORMOTEROL TARTRATE 15 MCG/2 ML VIAL.NEB NEB SCH ×2 (08:02→19:15)
[2019-01-17] MEDS: Levofloxacin 750mg IV 750 MG/150 ML BAG IV SCH (08:52)
[2019-01-17] MEDS: ENSURE ENLIVE 237 ML CAN PO SCH ×3 (08:57→20:51)
[2019-01-17] MEDS: BUPROPRION HCL S.R. 150MG TAB PO SCH (08:58)
[2019-01-17] MEDS: ARIPiprazole 5 MG TAB PO SCH (08:59)
[2019-01-17] MEDS ORDERED: VALSARTAN PO SCH (09:00)
[2019-01-17] MEDS ORDERED: HYDROCHLOROTHIAZIDE PO SCH (09:00)
[2019-01-17] MEDS ORDERED: [UNRECOGNIZED DRUG - OTHER] PO SCH (09:00)
[2019-01-17] MEDS: DULOXETINE 30 MG CAP PO SCH (09:01)
[2019-01-17] MEDS: ASCORBIC ACID 500 MG TABLET PO SCH ×2 (09:01→20:50)
[2019-01-17] MEDS: ENOXAPARIN 40 MG/0.4 ML SQ SCH (09:02)
[2019-01-17] MEDS: OSELTAMIVIR 75 MG CAP PO SCH ×2 (09:02→20:49)
[2019-01-17] MEDS: NEBIVOLOL HCL 5 MG TAB PO SCH ×2 (09:17→20:50)
--- NOTE | 2019-01-17 11:18 | RAD REPORT ---
EXAM DESCRIPTION: RAD - Chest Single View - 01/17/2019 10:50 am CLINICAL HISTORY: ARDS Chest pain. COMPARISON: Chest Single View dated 01/16/2019; Chest Single View dated 01/15/2019; Chest Single View da holley 01/14/2019; Chest Single View dated 01/13/2019 FINDINGS: Portable technique limits examination quality. Bilateral pulmonary opacities are again noted, unchanged since comparative study. The heart is mildly prominent size. No displaced fractures. IMPRESSION: Stable chest since 01/16/2019 study.
--- NOTE | 2019-01-17 11:24 | P.PN ---
Subjective Date of Service: 01/17/19 Chief Complaint: Respiratory failure pneumonia Subjective: Improving (Patient is doing much better still complaining of some shortness of breath has been stable) Review of Systems General: Weakness Respiratory: Cough, Shortness of Breath Physical Examination - Vital Signs Temperature: 97.8 F Blood Pressure: 166/72 Pulse: 61 Respirations: 21 Pulse Ox (%): 93 - Physical Exam General: Alert, In no apparent distress, Oriented x3 Respiratory: Clear to auscultation bilaterally Cardiovascular: No edema, Regular rate/rhythm Assessment & Plan - Problems (Diagnosis) (1) ARDS (adult respiratory distress syndrome) Current Visit: Yes Status: Acute Plan: Patient is 58 years of age admitted with ARDS presume secondary to an influenza a infection currently doing much better off BiPAP chest x-rays also improved reduce dose of steroids exchange underwriting consultant to p.o. levofloxacin give her 1 dose of Lasix today stable to be transferred to the floor titrate sat to 90 per
[2019-01-17] MEDS: levoFLOXacin 500 MG TAB PO SCH (12:00)
[2019-01-17] MEDS ORDERED: FUROSEMIDE 20 MG/ 2ML VIAL IV ONE (12:00)
[2019-01-17] MEDS: VALSARTAN 80 MG TAB PO SCH (12:47)
[2019-01-17] MEDS: predniSONE 20 MG TAB PO SCH ×2 (12:48→20:49)
[2019-01-17] MEDS: THIAMINE 200 MG/2 ML INJ IVP SCH ×2 (13:27→20:47)
--- NOTE | 2019-01-17 15:58 | PN ---
Date of Progress Note: 01/17/2019 Subjective: Patient was seen this morning for followup. No new complaints or problems reported by h er. She is on nasal cannula oxygen. Her is present with her at bedside. Overall feeling mu ch better. Yesterday, she did get out of bed and was sitting in the chair. Has not ambulated yet in ICU. Had a bowel movement yesterday. Denies any nausea, vomiting. She does have hiccups, which is still going on for last 2-3 days. She is tolerating diet well. Objective: Vital Signs: Reviewed. HEENT: Examination unremarkable. Lungs: Clear to auscultation. Heart: No rhonchi. No rales. Improved air entry. Heart sounds normal. Abdomen: Soft. Bowel sounds normal. No guarding, rigidity, tenderness, or distention. Extremities: No leg edema. Laboratory Data: Chest x-ray ordered, results pending from today. Yesterday's blood work results re viewed. Impression: 1.Acute respiratory distress syndrome. 2.Acute respiratory failure. 3.Influenza. 4.Hypertension. 5.Depression. 6.Anxiety. 7.Hiccups. Plan: We will go ahead and continue current medications, which is current antibiotic Levaquin and Ta miflu. We will restart her antihypertensive medication today which is her Bystolic, prazosin, and va lsartan/HCTZ. Continue her current anxiety and depression medications. Continue DVT prophylaxis usi ng Lovenox per order. I did talk to Dr. Hagen and he has given me his okay to transfer patient to floor. I will make that decision regarding transfer after reviewing her today's chest x-ray results . Details and plan of treatment discussed with the patient and her . She is improving well a nd we expect her to continue to improve over a period of next few days in order for her to return ricardo pilo INDER/MODL Voice ID: [id number] Report ID: [id number]
[2019-01-17] MEDS: IPRATROPIUM BROM 0.5MG/2.5ML NEB PRN (19:15)
[2019-01-17] MEDS: ALBUTEROL 2.5 MG/3 ML NEB SOL NEB PRN (19:15)
[2019-01-17] MEDS: PRAZOSIN HCL 1 MG CAP PO SCH (20:48)
[2019-01-17] MEDS: ZOLPIDEM TARTRATE 10 MG TABLET PO SCH (20:49)
[2019-01-17] MEDS ORDERED: THIAMINE 200 MG/2 ML INJ ONE (20:50)
[2019-01-18] MEDS: LEVOTHYROXINE SOD 0.05 MG TABLET PO SCH (05:07)
[2019-01-18 05:35] LABS: Absolute Lymphocytes (CBC) 0.7 K/uL (0.7-4.9); Absolute Monocytes 0.5 K/uL (0.1-1.3); Absolute Neutrophil 8.1 K/uL (1.8-8.0); Basophils % 0.2 % (0-1.3); Eosinophils % 0.1 % (0-4.4); Lymphocytes % 7.9 % (15.3-44.8); MPV 8.1 fL (7.6-11.3); RBC Red Blood Cell Count 3.65 M/uL (3.86-4.86)
[2019-01-18 05:46] LABS: Magnesium 2.5 mg/dL (1.8-2.4)
[2019-01-18] MEDS: PANTOPRAZOLE 40MG TABLET PO SCH (05:49)
[2019-01-18 06:41] LABS: Blood Morphology Comment NOT SEEN (NOT SEEN); Platelet Estimate ADEQ
[2019-01-18] MEDS: FUROSEMIDE 20 MG/ 2ML VIAL IV ONE ×2 (07:44→09:43)
[2019-01-18] MEDS: ARFORMOTEROL TARTRATE 15 MCG/2 ML VIAL.NEB NEB SCH ×2 (08:07→20:00)
--- NOTE | 2019-01-18 08:25 | RAD REPORT ---
EXAM DESCRIPTION: RAD - Chest Single View - 01/18/2019 6:27 am CLINICAL HISTORY: ARDS Chest pain. COMPARISON: Chest Single View dated 01/17/2019; Chest Single View dated 01/16/2019; Chest Single View d ated 01/15/2019; Chest Single View dated 01/14/2019 FINDINGS: Portable technique limits examination quality. Mild improvement is seen in bilateral pulmonary opacities since preceding day's examination. The hear t is upper limit normal in size. No displaced fractures. IMPRESSION: Mild improvement lung aeration since preceding day's study.
[2019-01-18] MEDS ORDERED: VALSARTAN PO SCH (09:00)
[2019-01-18] MEDS: THIAMINE 200 MG/2 ML INJ IVP SCH ×2 (09:00→21:00)
[2019-01-18] MEDS ORDERED: HYDROCHLOROTHIAZIDE PO SCH (09:00)
[2019-01-18] MEDS ORDERED: [UNRECOGNIZED DRUG - OTHER] PO SCH (09:00)
[2019-01-18] MEDS: OSELTAMIVIR 75 MG CAP PO SCH (09:00)
[2019-01-18] MEDS: ASCORBIC ACID 500 MG TABLET PO SCH ×2 (09:44→20:31)
[2019-01-18] MEDS: NEBIVOLOL HCL 5 MG TAB PO SCH ×2 (09:44→20:30)
[2019-01-18] MEDS: hydroCHLOROthiazide 12.5 MG CAP PO SCH (09:44)
[2019-01-18] MEDS: levoFLOXacin 500 MG TAB PO SCH (09:45)
[2019-01-18] MEDS: ENOXAPARIN 40 MG/0.4 ML SQ SCH (09:45)
[2019-01-18] MEDS: predniSONE 20 MG TAB PO SCH ×2 (09:45→20:30)
[2019-01-18] MEDS: ARIPiprazole 5 MG TAB PO SCH (09:45)
[2019-01-18] MEDS: VALSARTAN 80 MG TAB PO SCH (09:46)
[2019-01-18] MEDS: DULOXETINE 30 MG CAP PO SCH (09:46)
[2019-01-18] MEDS: BUPROPRION HCL S.R. 150MG TAB PO SCH (09:46)
[2019-01-18] MEDS: ENSURE ENLIVE 237 ML CAN PO SCH ×3 (09:49→21:00)
[2019-01-18] MEDS ORDERED: FUROSEMIDE 40 MG TABLET PO ONE (11:07)
--- NOTE | 2019-01-18 12:10 | PN ---
Date of Progress Note: 01/18/2019 Subjective: The patient was seen this morning for followup. No new complaints or problems reported by the patient, lying in bed, not in any distress, on nasal cannula oxygen, in ICU. Denied any nause a or vomiting. Tolerating diet well. Objective: Vital Signs: Reviewed. HEENT: Unremarkable. Lungs: Bilateral good equal air entry. Presence of rales noted in the right lung base, not using an y accessory muscles of respiration. Heart: Sounds normal. Abdomen: Soft. Bowel: Sounds normal. No guarding, rigidity, tenderness, distention. Extremities: No leg edema. Laboratory Data: White count 9.3, hemoglobin 11.5, platelets 232, sodium 138, potassium 4, chloride 101, bicarb 30, BUN 17, creatinine 0.82, glucose 197, magnesium 2.5. Impression: 1.Acute respiratory distress syndrome. 2.Acute respiratory failure, resolved. 3.Influenza. 4.Hypertension. 5.Anxiety. 6.Depression. Plan: We will go ahead and move the patient out of ICU to regular room. Chest x-ray, reviewed, done this morning, and still has bilateral opacity, unchanged. Official Radiology report is pending. Th e patient is clinically doing much better. We will go ahead and plan to transfer her out of ICU to r egular room today, and I have instructed her to limit her fluid intake up to 1500 cc per day. Lasix 20 mg IV will be given x1 dose today, and she did receive Lasix yesterday as well. We will continue the current medical management, and I will see her tomorrow for followup. INDER/MODL Voice ID: [id number] Report ID: [id number]
[2019-01-18] MEDS: clonazePAM 1 MG TAB PO PRN (17:32)
[2019-01-18] MEDS: PRAZOSIN HCL 1 MG CAP PO SCH (20:31)
--- NOTE | 2019-01-18 21:19 | RAD REPORT ---
EXAM DESCRIPTION: RAD - Chest Single View - 01/18/2019 8:58 pm CLINICAL HISTORY: PICC line placement COMPARISON: Margin left FINDINGS: Portable chest was obtained following placement of a left upper extremity PICC line. The c atheter tip is in the mid SVC.
[2019-01-18] MEDS ORDERED: IBUPROFEN 400 MG TAB PO ONE (22:16)
[2019-01-18] MEDS: ZOLPIDEM TARTRATE 10 MG TABLET PO SCH (22:25)
[2019-01-19 04:41] LABS: Absolute Lymphocytes (CBC) 0.8 K/uL (0.7-4.9); Absolute Monocytes 0.3 K/uL (0.1-1.3); Absolute Neutrophil 6.2 K/uL (1.8-8.0); Basophils % 0.2 % (0-1.3); Hematocrit 34.9 % (36.0-45.0); Lymphocytes % 11.1 % (15.3-44.8); MPV 7.6 fL (7.6-11.3); Monocytes % 4.2 % (3.3-12.3); RBC Red Blood Cell Count 3.85 M/uL (3.86-4.86)
[2019-01-19 05:08] LABS: Magnesium 2.5 mg/dL (1.8-2.4); Potassium 3.8 mmol/L (3.5-5.1)
[2019-01-19] MEDS: LEVOTHYROXINE SOD 0.05 MG TABLET PO SCH (05:29)
[2019-01-19] MEDS: PANTOPRAZOLE 40MG TABLET PO SCH (05:29)
[2019-01-19] MEDS: ARFORMOTEROL TARTRATE 15 MCG/2 ML VIAL.NEB NEB SCH ×2 (08:30→20:00)
[2019-01-19] MEDS: ENSURE ENLIVE 237 ML CAN PO SCH ×3 (09:00→20:35)
[2019-01-19] MEDS: DULOXETINE 30 MG CAP PO SCH (09:37)
[2019-01-19] MEDS: levoFLOXacin 500 MG TAB PO SCH (09:37)
[2019-01-19] MEDS: ENOXAPARIN 40 MG/0.4 ML SQ SCH (09:37)
[2019-01-19] MEDS: VALSARTAN 80 MG TAB PO SCH (09:38)
[2019-01-19] MEDS: ASCORBIC ACID 500 MG TABLET PO SCH ×2 (09:38→20:32)
[2019-01-19] MEDS: predniSONE 20 MG TAB PO SCH ×2 (09:38→20:34)
[2019-01-19] MEDS: BUPROPRION HCL S.R. 150MG TAB PO SCH (09:39)
[2019-01-19] MEDS: hydroCHLOROthiazide 12.5 MG CAP PO SCH (09:39)
[2019-01-19] MEDS: ARIPiprazole 5 MG TAB PO SCH (09:39)
[2019-01-19] MEDS: CLOTRIMAZOLE 1% CREAM 15 GM TOP SCH ×2 (09:41→20:35)
[2019-01-19] MEDS: ACETAMINOPHEN 500 MG TAB PO SCH ×3 (09:45→20:32)
[2019-01-19] MEDS: NEBIVOLOL HCL 5 MG TAB PO SCH ×2 (09:48→20:33)
[2019-01-19 11:30] LABS: Arterial Blood Carboxyhemoglob 1.7 % (0-1.5); Blood Gas Oxyhemoglobin 89.8 % (94-97); Blood O2 Saturation 91.8 % (92-98.5)
[2019-01-19] MEDS: ACYCLOVIR 400 MG TABLET PO SCH ×3 (12:09→20:33)
[2019-01-19] MEDS: IBUPROFEN 200 MG TAB PO SCH ×2 (12:10→16:53)
--- NOTE | 2019-01-19 12:34 | P.PN ---
Subjective Date of Service: 01/19/19 Chief Complaint: Respiratory failure pneumonia Subjective: Improving (The doing much better wants to go home oxygen a rondon satisfactory) Review of Systems General: Weakness Respiratory: Cough, Shortness of Breath Physical Examination - Vital Signs Temperature: 97.6 F Blood Pressure: 104/59 Pulse: 60 Respirations: 22 Pulse Ox (%): 95 - Physical Exam General: Alert, In no apparent distress, Oriented x3 Respiratory: Clear to auscultation bilaterally - Studies Microbiology Data (last 24 hrs): 01/13/19 08:50 Blood - Blood Aerobic Blood Culture - Final No growth in 5 days. 01/13/19 08:50 Blood - Blood Anaerobic Blood Culture - Final No growth in 5 days. 01/13/19 08:50 Blood - Blood Aerobic Blood Culture - Final No growth in 5 days. 01/13/19 08:50 Blood - Blood Anaerobic Blood Culture - Final No growth in 5 days. Assessment & Plan - Problems (Diagnosis) (1) ARDS (adult respiratory distress syndrome) Current Visit: Yes Status: Resolved Plan: Patient is 58 years of age admitted with ARDS presume secondary to an influenza a infection currently doing much better off BiPAP chest x-rays also improved reduce dose of steroids twisting frame changer to p.o. levofloxacin give her 1 dose of Lasix today stable to be transferred to the floor titrate sat to 90 per (2) Pneumonia Onset Date: 08/11/18 Current Visit: No Status: Acute Plan: Patient is 58 years of age admitted with the ARDS which has improved this packed viral pneumonia she is currently doing better patient can be discharged home on prednisone 10 mg twice a day and some levofloxacin he does not qualify for home O2 follow-up with me in 2 weeks Qualifiers: Pneumonia type: due to unspecified organism
[2019-01-19] MEDS: THIAMINE 200 MG/2 ML INJ IVP SCH ×2 (12:44→20:34)
--- NOTE | 2019-01-19 14:20 | PN ---
Date of Progress Note: 01/19/2019 Subjective: The patient was seen this morning for followup. Last night nurse contacted me, informed me that the patient was breaking out with rash that she normally gets with her herpes lesions breako ut in the right posterior upper buttock area and she was complaining of pain. She is allergic to cod eine, and Tylenol was given and 1 dose of Motrin 600 mg was given. This morning, she tells me this m edications did help her pain. Overall, her breathing is better. She was noted to be on 2 L nasal ca nnula oxygen and about couple of days ago she was on 5 L nasal cannula oxygen. Yesterday, she did am bulate well. She had a bowel movement this morning. Denies any abdominal pain, nausea, vomiting. Objective: Vital signs: Reviewed. HEENT: Unremarkable. Lungs: Clear to auscultation. Very good air entry in the left lung field. Clear to auscultation. Right lung air entry is very good with minimum rales in the right lung basal region. Heart: Sounds normal. Abdomen: Soft. Bowel sounds normal. No guarding, rigidity, tenderness, distention. Extremities: No leg edema. Skin: The patient has 2 type of rash on her buttocks, 1 is a pink macular rash on both buttocks. Th is is likely due to some contact dermatitis type of problem and she has a small blister type of rash. Most of the blisters have healed up. This is in the right upper posterior buttock and this is what she gets from time to time. Laboratory Data: White count 7.4, hemoglobin 12, platelets 293. Sodium 139, potassium 3.8, chloride 99, bicarb 33, BUN 20, creatinine 0.79, glucose 143. Impression: 1.Herpes simplex, recurrent. 2.Contact dermatitis. 3.Acute respiratory distress syndrome, improved. 4.Acute respiratory failure, resolved. 5.Influenza, type A. 6.Hypertension. 7.Depression. 8.Anxiety. Plan: We will go ahead and start acyclovir per order. Give Tylenol and Motrin 3 times a day with fo od per order for pain. We will also use some Lotrisone cream topically for contact dermatitis type o f rash. The patient remains on oral prednisone and oral antibiotics. Oxygen is at 2 L/minute. Hope fully, we can continue to wean her off oxygen and possible discharge to go home this week probably ne xt 2-3 days depending on her condition. I will see her tomorrow for followup and we will continue cu rrent antihypertensive medications. INDER/MODL Voice ID: [id number] Report ID: [id number]
[2019-01-19] MEDS: ZOLPIDEM TARTRATE 10 MG TABLET PO SCH (20:32)
[2019-01-19] MEDS: PRAZOSIN HCL 1 MG CAP PO SCH (20:34)
[2019-01-20 04:47] LABS: Absolute Lymphocytes (CBC) 0.6 K/uL (0.7-4.9); Absolute Monocytes 0.2 K/uL (0.1-1.3); Absolute Neutrophil 5.2 K/uL (1.8-8.0); Basophils % 0.3 % (0-1.3); Eosinophils % 0.6 % (0-4.4); Hematocrit 36.9 % (36.0-45.0); Lymphocytes % 9.7 % (15.3-44.8); MPV 7.1 fL (7.6-11.3); RBC Red Blood Cell Count 4.06 M/uL (3.86-4.86)
[2019-01-20 05:00] LABS: Magnesium 2.2 mg/dL (1.8-2.4); Potassium 3.8 mmol/L (3.5-5.1)
[2019-01-20] MEDS ORDERED: POTASSIUM 25 MEQ EFFERV TAB PO ONE (05:06)
[2019-01-20] MEDS: LEVOTHYROXINE SOD 0.05 MG TABLET PO SCH (05:32)
[2019-01-20] MEDS: PANTOPRAZOLE 40MG TABLET PO SCH (05:32)
[2019-01-20] MEDS: ARFORMOTEROL TARTRATE 15 MCG/2 ML VIAL.NEB NEB SCH (08:22)
--- NOTE | 2019-01-20 08:23 | RAD REPORT ---
EXAM DESCRIPTION: RAD - Chest Pa And Lat (2 Views) - 01/20/2019 8:18 am CLINICAL HISTORY: ARDS Chest pain. COMPARISON: Chest Single View dated 01/18/2019; Chest Single View dated 01/18/2019; Chest Single View dated 01/17/2019; Chest Single View dated 01/16/2019 FINDINGS: Mild bilateral interstitial pulmonary opacities appear unchanged since comparative study. The heart is upper limit normal in size. Left-sided PICC line remains unchanged in position. IMPRESSION: Stable chest since 01/18/2019.
[2019-01-20 08:49] VITALS: TEMP 97.9
[2019-01-20] MEDS: ENSURE ENLIVE 237 ML CAN PO SCH (09:00)
[2019-01-20] MEDS: VALSARTAN 80 MG TAB PO SCH (09:00)
[2019-01-20] MEDS: hydroCHLOROthiazide 12.5 MG CAP PO SCH (09:00)
[2019-01-20] MEDS: NEBIVOLOL HCL 5 MG TAB PO SCH (09:00)
[2019-01-20] MEDS: THIAMINE 200 MG/2 ML INJ IVP SCH (09:03)
[2019-01-20] MEDS: ACETAMINOPHEN 500 MG TAB PO SCH (09:03)
[2019-01-20] MEDS: DULOXETINE 30 MG CAP PO SCH (09:03)
[2019-01-20] MEDS: IBUPROFEN 200 MG TAB PO SCH ×2 (09:03→12:47)
[2019-01-20] MEDS: ASCORBIC ACID 500 MG TABLET PO SCH (09:04)
[2019-01-20] MEDS: ACYCLOVIR 400 MG TABLET PO SCH (09:04)
[2019-01-20] MEDS: levoFLOXacin 500 MG TAB PO SCH (09:04)
[2019-01-20] MEDS: ENOXAPARIN 40 MG/0.4 ML SQ SCH (09:04)
[2019-01-20] MEDS: BUPROPRION HCL S.R. 150MG TAB PO SCH (09:05)
[2019-01-20] MEDS: predniSONE 20 MG TAB PO SCH (09:05)
[2019-01-20] MEDS: ARIPiprazole 5 MG TAB PO SCH (09:06)
[2019-01-20] MEDS: CLOTRIMAZOLE 1% CREAM 15 GM TOP SCH (09:09)
[2019-01-20] MEDS ORDERED: NA CHLORIDE 0.9% 250 ML IV ONE (10:36)
[2019-01-20] MEDS ORDERED: NA CHLORIDE 0.9% 0 ML ONE (10:52)
[2019-01-20 11:12] VITALS: O2SAT 91
[2019-01-20 11:39] VITALS: BP 107/84
--- NOTE | 2019-01-25 02:42 | DS ---
Date of Discharge: 01/20/2019 Disposition: Discharged to go home. Physical Examination: HEENT: Unremarkable except presence of thrush in the mouth present. Lungs: Clear to auscultation. Heart: Sounds normal. Abdomen: Soft. Bowel sounds normoactive. No guarding, rigidity, tenderness, or distention. Extremities: No leg edema. Discharge Medications And Instructions: Continue all prior home medication. Follow up at my office in 2 weeks. Take new medications as below: 1.Levaquin 500 mg p.o. daily for 1 week. 2.Acyclovir 800 mg 3 times a day for 1 week. 3.Mycelex Robin 10 mg, take 1 tablet by mouth 4 times a day for 10 days, suck on this tablet in mary jo th until it is dissolved. 4.Prednisone 10 mg, take 1 tablet by mouth 2 times a day for 5 days, then 1 tablet by mouth daily fo r 5 days, then half tablet by mouth daily for 5 days, then half tab by mouth every other day for 5 da ys, then stop. 5.Use [id number] Tylenol 500 mg 3 times a day and Motrin 200 mg 3 tablets by mouth 3 times a d ay with food as needed for back pain, take it for 1 to 2 weeks. Hospital Course: This is a 58-year-old pleasant female patient who came into emergency room with com plaints of shortness of breath and diarrhea. Please see dictated H and P for more information. Afte r patient was evaluated in the emergency room, she was admitted to hospital with significant hypoxia problem. She was admitted to intensive care unit with ARDS problem. She had significant bilateral p ulmonary infiltrate type of changes and this was thought to be due to influenza type A. Her influenz a type A test was positive, which was done in the emergency room. In fact, the patient saw me a day before she came into emergency room at office with flu-like illness and she was started on Tamiflu, s o she had already taken 2 doses of Tamiflu but then her condition deteriorated with onset of shortnes s of breath problem and diarrhea so that is why she came into emergency room with worsening condition . The patient did not require ventilator support but she stayed on BiPAP and Pulmonary consultation was obtained from Dr. Hagen. Dr. Hagen started her on thiamine and IV steroids. Empiric IV an tibiotics were given. Tamiflu was continued. The patient's condition slowly improved in ICU and as her ARDS improved, chest x-ray started to show improvement. Her hypoxia improved and we were able to discontinue BiPAP and she was placed on oxygen, and we were able to reduce oxygen delivery as her re quirement kept on getting better. Once her condition was stable, we transferred [facility] where her condition remained stable. She started ambulating well, started tolerating diet very well and the patient was discharged to go home in stable condition. Her diarrhea problem had r esolved. Final Diagnoses: 1.Acute respiratory distress syndrome. 2.Acute respiratory failure. 3.Influenza type A with pneumonia. 4.Hypertension. 5.Hyperlipidemia. 6.Hypothyroidism. 7.Narcolepsy. 8.Sleep apnea. 9.Anxiety. 10.Depression. 11.Thrombocytopenia. Laboratory Data: Labs done during this hospitalization: Initial white count 6.2, hemoglobin 13.8, p latelets 136. Last white count on day of discharge 6.1, hemoglobin 12.6, platelets 285. Initial blo od gas pH 7.46, pCO2 of 33.9, pO2 of 104, saturation 97% on 100% FiO2. Last blood gas pH 7.50, pCO2 was 39.4, PO2 was 61 on room air with 91% saturation. Last chemistry on day of discharge; sodium 136, potassium 3.8, chloride 99, bicarb 28, BUN 20, creati nine 0.86, glucose 198, magnesium 2.2. Her lowest potassium was 3.2 when she came in and creatinine was 1.32 when she came in. Blood culture remained negative. Stool C. diff was negative a nd stool culture was negative. INDER/MODL Voice ID: [id number] Report ID: [id number]
== END 2019-01-20 13:34 | disposition home or self-care (01) | DRG 193 ==
LOC: ER 08:28 → ERHOLD 11:46 → 3RD-ICU 13:36 → 4TH 01-18 20:50
PROVIDERS: ADMIT Internal Medicine; ATTEND Internal Medicine
PROC: 5A09457 Assistance with Respiratory Ventilation, 24-96 Consecutive Hours, Continuous Positive Airway Pressure (ICD-10-PCS; 2019-01-13)
PROC: 02HV33Z Insertion of Infusion Device into Superior Vena Cava, Percutaneous Approach (ICD-10-PCS; principal; 2019-01-18)
PROC: B548ZZA Ultrasonography of Superior Vena Cava, Guidance (ICD-10-PCS; 2019-01-18)
DX: J09.X1 Influenza due to identified novel influenza A virus with pneumonia (principal); J96.01 Acute respiratory failure with hypoxia; J80 Acute respiratory distress syndrome; J18.8 Other pneumonia, unspecified organism; E78.5 Hyperlipidemia, unspecified; E03.9 Hypothyroidism, unspecified; G47.30 Sleep apnea, unspecified; F41.9 Anxiety disorder, unspecified; F32.9 Major depressive disorder, single episode, unspecified; D69.6 Thrombocytopenia, unspecified; I10 Essential (primary) hypertension; G47.419 Narcolepsy without cataplexy; R19.7 Diarrhea, unspecified; R06.6 Hiccough; J12.9 Viral pneumonia, unspecified; B00.9 Herpesviral infection, unspecified; L25.9 Unspecified contact dermatitis, unspecified cause
CPT/HCPCS: 36415; 71045; 71046; 71275; 80048; 80076; 81001; 82550; 82553; 82805; 83605; 83690; 83735; 83880; 84100; 84132; 84145; 84484; 85025; 85610; 85730; 86140; 87040; 87045; 87046; 87086; 87088; 87493; 87804; 93005; 93306; 94660; 94760; 96365; 96366; 96367; 96368; 97116; 97163; 97530; 99285; J1650; J1940; J2270; J2405; J2920; J3370; J3411; J3475; J7030; J7512; J7605; Q9967

== ENCOUNTER 2019-08-03 20:43 | Emergency (ER) | payer BC, OTHER ==
[2019-08-03] MEDS ORDERED: LEVALBUTEROL 1.25 MG/3 ML NEB ONE (21:33)
[2019-08-03] MEDS ORDERED: FUROSEMIDE 40 MG/4 ML VIAL ONE (21:33)
[2019-08-03] MEDS ORDERED: MEPERIDINE HCL 25 MG/0.5 ML ONE (22:28)
[2019-08-03 22:31] LABS: Absolute Lymphocytes (CBC) 2.1 K/uL (0.7-4.9); Basophils % 0.9 % (0-1.3); Hematocrit 33.2 % (36.0-45.0); Lymphocytes % 44.6 % (15.3-44.8); MPV 7.6 fL (7.6-11.3); RBC Red Blood Cell Count 3.56 M/uL (3.86-4.86)
[2019-08-03 22:44] LABS: ALT/SGPT 35 U/L (12-78); AST/SGOT 26 U/L (15-37); Albumin 3.9 g/dL (3.4-5.0); Alkaline Phosphatase 93 U/L (45-117); BUN Blood Urea Nitrogen 15 mg/dL (7-18); Bicarbonate 26 mmol/L (21-32); Bilirubin Direct 0.1 mg/dL (0-0.2); Bilirubin Total 0.4 mg/dL (0.2-1.0); Glucose Level 102 mg/dL (74-106); NT PRO-BNP 229 pg/mL (<125); Potassium 3.6 mmol/L (3.5-5.1); Protein, Total 6.6 g/dL (6.4-8.2); Sodium Level 144 mmol/L (136-145); Troponin (Emerg Dept Use Only) < 0.02 ng/mL (0.0-0.045)
--- NOTE | 2019-08-04 00:59 | EDPHYS ---
Physician Documentation [facility] Name: Lydia Hanson Age: 59 yrs Sex: Female : 1960 Arrival Date: 08/03/2019 Time: 20:48 Bed 4 Private MD: ED Physician Michi Diaz HPI: 08/03 21:23 This 59 yrs old Female presents to ER via Wheelchair with complaints of rn Shortness Of Breath, body swelling. 21:23 The patient has shortness of breath with light activity. rn 21:24 Onset: The symptoms/episode began/occurred 5 day(s) ago. Duration: The symptoms are rn continuous. The patient's shortness of breath is aggravated by exertion, light activity, supine position. Severity of symptoms: in the emergency department the symptoms are unchanged. The patient has experienced similar episodes in the past. The patient has not recently seen a physician. 21:24 Reports fever, productive cough with pink sputum, and generalized swelling. Takes 120mg rn lasix at home. States has never been this swollen in past. . Historical: - Allergies: 21:00 PENICILLINS; lp1 21:00 CEPHALOSPORINS; lp1 21:00 TETRACYCLINES; lp1 21:00 Codeine; lp1 21:00 Latex, Natural Rubber; lp1 - Home Meds: 21:00 Lasix 60 mg Oral 2 times per day [Active]; Ambien 10 mg Oral tab 1 tab once daily lp1 [Active]; aripiprazole 5 mg Oral tab 1 tab once daily [Active]; bupropion HCl 150 mg Oral TbER 1 tab once daily [Active]; Bystolic 5 mg Oral tab 1 tab once daily [Active]; clonazepam 1 mg Oral tab as needed [Active]; Co Q-10 Oral daily [Active]; Crestor 5 mg Oral tab 1 tab once daily [Active]; dexmethylphenidate 20 mg Oral BP50 1 cap once daily [Active]; duloxetine 90 mg Oral once daily [Active]; hydroxychloroquine 200 mg Oral tab 2 tabs once daily [Active]; levothyroxine 50 mcg tab 1 tab 6 days per week, skip 7th day [Active]; montelukast 10 mg Oral tab 1 tab once daily [Active]; omeprazole 40 mg Oral cpDR 1 cap once daily [Active]; ondansetron HCl 4 mg Oral tab nightly [Active]; prazosin 1 mg Oral cap 1 cap 3 times per day [Active]; Restasis 0.05 % ophthalmic dpet 1 drop 2 times per day [Active]; ursodiol 300 mg Oral cap 3 times per day [Active]; valsartan-hydrochlorothiazide 80-12.5 mg Oral tab 1 tab once daily [Active]; Xyrem 4.5 GM Oral 2 times per day [Active]; - PMHx: 21:00 Sleep Apnea; Depression; Hyperlipidemia; Hypertension; narcolepsy; Thyroid problem; lp1 V-tach; - PSHx: 21:00 Hysterectomy; breast augmentation; carpel tunnel; nephrectomy; Tonsillectomy; lp1 Cholecystectomy; - Immunization history:: Adult Immunizations up to date. - Social history:: Smoking status: Patient/guardian denies using tobacco. - Ebola Screening: : No symptoms or risks identified at this time. - Family history:: not pertinent. - Hospitalizations: : No recent hospitalization is reported. ROS: 21:24 Constitutional: Negative for fever, chills, and weight loss, Eyes: Negative for injury, rn pain, redness, and discharge, Neck: Negative for injury, pain, and swelling, Cardiovascular: Negative for chest pain, palpitations Respiratory: Negative for pleuritic chest pain, Abdomen/GI: Negative for abdominal pain, nausea, vomiting, diarrhea, and constipation, MS/Extremity: Negative for injury and deformity, Skin: Negative for injury, rash, and discoloration, Neuro: Negative for headache, numbness, tingling, and seizure. Exam: 21:26 Constitutional: This is a well developed, well nourished patient who is awake, alert, rn mild tachypnea Head/Face: Normocephalic, atraumatic. Eyes: Pupils equal round and reactive to light, extra-ocular motions intact. Lids and lashes normal. Conjunctiva and sclera are non-icteric and not injected. Cornea within normal limits. Periorbital areas with no swelling, redness, or edema. Neck: Trachea midline, no thyromegaly or masses palpated, and no cervical lymphadenopathy. Supple, full range of motion without nuchal rigidity, or vertebral point tenderness. No Meningismus. Cardiovascular: Regular rate and rhythm. No pulse deficits. Respiratory: + mild tachypnea, diminished breath sounds left lung base Abdomen/GI: soft, non-tender MS/ Extremity: Pulses equal, no cyanosis. Neurovascular intact. Full, normal range of motion. Equal circumference. 2+ pitting edema bilateral lower ext Neuro: Awake and alert, GCS 15, oriented to person, place, time, and situation. Cranial nerves II-XII grossly intact. Motor strength 5/5 in all extremities. Sensory grossly intact. Cerebellar exam normal. 22:07 ECG was reviewed by the Attending Physician. rn Vital Signs: 20:57 BP 154 / 75; Pulse 77; Resp 18; Temp 98.2(O); Pulse Ox 99% on R/A; Weight 94.35 kg (R); lp1 Height 5 ft. 7 in. (170.18 cm); Pain 7/10; 22:16 BP 119 / 52; Pulse 78; Resp 17 S; Pulse Ox 100% on R/A; Pain 7/10; jd3 23:02 BP 120 / 61; Pulse 74; Resp 15 S; Pulse Ox 96% on R/A; Pain 4/10; jd3 08/04 00:18 BP 113 / 64; Pulse 72; Resp 16 S; Pulse Ox 99% on R/A; Pain 4/10; jd3 08/03 20:57 Body Mass Index 32.58 (94.35 kg, 170.18 cm) lp1 MDM: 08/03 21:09 Patient medically screened. rn 08/04 00:54 Differential diagnosis: Anxiety Reaction Bronchitis CHF exacerbation, Myocardial rn Infarction pneumonia, Pneumothorax pulmonary edema, Pulmonary Embolism. Data reviewed: vital signs, nurses notes, lab test result(s), EKG, radiologic studies, CT scan, plain films, and as a result, I will discharge patient. Counseling: I had a detailed discussion with the patient and/or guardian regarding: the historical points, exam findings, and any diagnostic results supporting the discharge/admit diagnosis, lab results, radiology results, the need for outpatient follow up, to return to the emergency department if symptoms worsen or persist or if there are any questions or concerns that arise at home. Response to treatment: the patient's symptoms have markedly improved after treatment, and as a result, I will discharge patient. ED course: Pt improved, 100% oxygen on RA, stable vitals, trop neg, No ischemia on ECG. Patient more concerned about swelling of legs and body. Recommend increasing her lasix for next 3 days and f/u with her pcp and trackman. BNP WNL. . 08/03 21:22 Order name: Blood Culture Adult (2) rn 08/03 21:22 Order name: BMP; Complete Time: 22:47 rn 08/03 21:22 Order name: CBC with Diff; Complete Time: 22:40 rn 08/03 21:22 Order name: Hepatic Function; Complete Time: 22:47 rn 08/03 21:22 Order name: NT PRO-BNP; Complete Time: 22:47 rn 08/03 21:22 Order name: Troponin (emerg Dept Use Only); Complete Time: 22:47 rn 08/03 21:22 Order name: XRAY CXR (1 view) rn 08/03 21:22 Order name: Flu; Complete Time: 22:40 rn 08/03 21:22 Order name: Procalcitonin; Complete Time: 23:06 rn 08/03 21:22 Order name: Lactate; Complete Time: 22:47 rn 08/03 23:03 Order name: CT Chest For PE Angio rn 08/03 21:22 Order name: EKG; Complete Time: 21:24 rn 08/03 21:22 Order name: Cardiac monitoring; Complete Time: 21:28 rn 08/03 21:22 Order name: EKG - Nurse/Tech; Complete Time: 21:29 rn 08/03 21:22 Order name: IV Saline Lock; Complete Time: 22:15 rn 08/03 21:22 Order name: Labs collected and sent; Complete Time: 22:15 rn 08/03 21:22 Order name: O2 Per Protocol; Complete Time: 21:29 rn 08/03 21:22 Order name: O2 Sat Monitoring; Complete Time: 21:29 rn EC/24 22:07 Rate is 74 beats/min. Rhythm is regular. QRS [place] is Normal. CT interval is normal. QRS rn interval is normal. QT interval is normal. No Q waves. T waves are Normal. No ST changes noted. Clinical impression: Normal ECG. Interpreted by me. Reviewed by me. Administered Medications: 21:37 Drug: Xopenex 1.25 mg Route: Inhalation; jd3 22:15 Follow up: Response: No adverse reaction jd3 22:15 Drug: Lasix 40 mg Route: IVP; Site: right antecubital; jd3 23:15 Follow up: Response: No adverse reaction jd3 22:28 Drug: Demerol 25 mg Route: IVP; Site: right antecubital; jd3 23:25 Follow up: Response: No adverse reaction; RASS: Alert and Calm (0) jd3 Disposition: 08/04/19 00:56 Discharged to Home. Impression: Dyspnea, unspecified, Edema, unspecified. - Condition is Stable. - Discharge Instructions: Edema, Shortness of Breath, Peripheral Edema. - Medication Reconciliation Form, Thank You Letter, Antibiotic Education, Prescription Opioid Use form. - Follow up: Private Physician; When: 2 - 3 days; Reason: Recheck today's complaints, Re-evaluation by your physician. - Problem is new. - Symptoms have improved. Signatures: Dispatcher [employer] EDMS Michi Diaz MD MD rn Odalys Franks RN RN lp1 Roel Nguyen RN RN jd3 Corrections: (The following items were deleted from the chart) 21:26 21:24 Constitutional: Negative for fever, chills, and weight loss, rn rn 08/04 01:08 00:56 08/04/2019 00:56 Discharged to Home. Impression: Dyspnea, unspecified; Edema, jd3 unspecified. Condition is Stable. Forms are Medication Reconciliation Form, Thank You Letter, Antibiotic Education, Prescription Opioid Use. Follow up: Private Physician; When: 2 - 3 days; Reason: Recheck today's complaints, Re-evaluation by your physician. Problem is new. Symptoms have improved. rn
--- NOTE | 2019-08-04 00:59 | ER ---
Nurse's Notes [facility] Name: Lydia Hanson Age: 59 yrs Sex: Female : 1960 Arrival Date: 08/03/2019 Time: 20:48 Bed 4 Private MD: Diagnosis: Dyspnea, unspecified;Edema, unspecified Presentation: 08/03 20:56 Presenting complaint: Patient states: Shortness of breath, arm and leg swelling that lp1 she noticed on , worsening; States cannot lay flat at night without feeling short of breath. Transition of care: patient was not received from another setting of care. Onset of symptoms was August 03, 2019. Risk Assessment: Do you want to hurt yourself or someone else? Patient reports no desire to harm self or others. Initial Sepsis Screen: Does the patient meet any 2 criteria? No. Patient's initial sepsis screen is negative. Does the patient have a suspected source of infection? No. Patient's initial sepsis screen is negative. Care prior to arrival: None. 20:56 Method Of Arrival: Wheelchair lp1 20:56 Acuity: RIA 3 lp1 Triage Assessment: 21:22 Respiratory: Onset: The symptoms/episode began/occurred X5 days ago, the patient has jd3 mild shortness of breath. Historical: - Allergies: 21:00 PENICILLINS; lp1 21:00 CEPHALOSPORINS; lp1 21:00 TETRACYCLINES; lp1 21:00 Codeine; lp1 21:00 Latex, Natural Rubber; lp1 - Home Meds: 21:00 Lasix 60 mg Oral 2 times per day [Active]; Ambien 10 mg Oral tab 1 tab once daily lp1 [Active]; aripiprazole 5 mg Oral tab 1 tab once daily [Active]; bupropion HCl 150 mg Oral TbER 1 tab once daily [Active]; Bystolic 5 mg Oral tab 1 tab once daily [Active]; clonazepam 1 mg Oral tab as needed [Active]; Co Q-10 Oral daily [Active]; Crestor 5 mg Oral tab 1 tab once daily [Active]; dexmethylphenidate 20 mg Oral BP50 1 cap once daily [Active]; duloxetine 90 mg Oral once daily [Active]; hydroxychloroquine 200 mg Oral tab 2 tabs once daily [Active]; levothyroxine 50 mcg tab 1 tab 6 days per week, skip day [Active]; montelukast 10 mg Oral tab 1 tab once daily [Active]; omeprazole 40 mg Oral cpDR 1 cap once daily [Active]; ondansetron HCl 4 mg Oral tab nightly [Active]; prazosin 1 mg Oral cap 1 cap 3 times per day [Active]; Restasis 0.05 % ophthalmic dpet 1 drop 2 times per day [Active]; ursodiol 300 mg Oral cap 3 times per day [Active]; valsartan-hydrochlorothiazide 80-12.5 mg Oral tab 1 tab once daily [Active]; Xyrem 4.5 GM Oral 2 times per day [Active]; - PMHx: 21:00 Sleep Apnea; Depression; Hyperlipidemia; Hypertension; narcolepsy; Thyroid problem; lp1 V-tach; - PSHx: 21:00 Hysterectomy; breast augmentation; carpel tunnel; nephrectomy; Tonsillectomy; lp1 Cholecystectomy; - Immunization history:: Adult Immunizations up to date. - Social history:: Smoking status: Patient/guardian denies using tobacco. - Ebola Screening: : No symptoms or risks identified at this time. - Family history:: not pertinent. - Hospitalizations: : No recent hospitalization is reported. Screenin:00 Abuse screen: Denies threats or abuse. Denies injuries from another. Nutritional lp1 screening: No deficits noted. Tuberculosis screening: No symptoms or risk factors identified. Fall Risk None identified. Assessment: 21:20 General: Appears in no apparent distress. uncomfortable, Behavior is cooperative, jd3 appropriate for age, anxious. Pain: Complains of pain in right leg and left leg Quality of pain is described as crampy, pressure. Neuro: Level of Consciousness is awake, alert, obeys commands, Oriented to person, place, time, situation. Cardiovascular: Heart tones S1 S2 present Capillary refill < 3 seconds Patient's skin is warm and dry. Rhythm is regular. Respiratory: Reports shortness of breath at rest cough that is non-productive, Airway is patent Respiratory effort is even, unlabored, Respiratory pattern is regular, symmetrical, Breath sounds are clear bilaterally. GI: No signs and/or symptoms were reported involving the gastrointestinal system. Patient currently denies diarrhea, nausea, vomiting. : No signs and/or symptoms were reported regarding the genitourinary system. EENT: No signs and/or symptoms were reported regarding the EENT system. Derm: Skin is intact, Skin is dry, Skin is normal, Skin temperature is warm. Musculoskeletal: Circulation, motion, and sensation intact. Range of motion: intact in all extremities, Swelling present in right foot, left foot, right leg and left leg. 22:16 Reassessment: Patient appears in no apparent distress at this time. No changes from jd3 previously documented assessment. Patient and/or family updated on plan of care and expected duration. Pain level reassessed. Patient is alert, oriented x 3, equal unlabored respirations, skin warm/dry/pink. 23:02 Reassessment: Patient appears in no apparent distress at this time. Patient and/or jd3 family updated on plan of care and expected duration. Pain level reassessed. Patient is alert, oriented x 3, equal unlabored respirations, skin warm/dry/pink. awaiting results. pt reported minor relief from pain medication. 08/04 00:18 Reassessment: Patient appears in no apparent distress at this time. No changes from jd3 previously documented assessment. Patient and/or family updated on plan of care and expected duration. Pain level reassessed. Patient is alert, oriented x 3, equal unlabored respirations, skin warm/dry/pink. 01:07 Reassessment: Patient appears in no apparent distress at this time. Patient and/or jd3 family updated on plan of care and expected duration. Pain level reassessed. Patient is alert, oriented x 3, equal unlabored respirations, skin warm/dry/pink. reported understanding of discharge instructions. Patient states feeling better. Vital Signs: 08/03 20:57 BP 154 / 75; Pulse 77; Resp 18; Temp 98.2(O); Pulse Ox 99% on R/A; Weight 94.35 kg (R); lp1 Height 5 ft. 7 in. (170.18 cm); Pain 7/10; 22:16 BP 119 / 52; Pulse 78; Resp 17 S; Pulse Ox 100% on R/A; Pain 7/10; jd3 23:02 BP 120 / 61; Pulse 74; Resp 15 S; Pulse Ox 96% on R/A; Pain 4/10; jd3 08/04 00:18 BP 113 / 64; Pulse 72; Resp 16 S; Pulse Ox 99% on R/A; Pain 4/10; jd3 08/03 20:57 Body Mass Index 32.58 (94.35 kg, 170.18 cm) lp1 ED Course: 08/03 20:48 Patient arrived in ED. mr 20:57 Triage completed. lp1 20:57 Arm band placed on left wrist. lp1 21:08 Michi Diaz MD is Attending Physician. rn 21:09 Roel Nguyen RN is Primary Nurse. jd3 21:22 Patient has correct armband on for positive identification. Placed in gown. Bed in low jd3 position. Call light in reach. Side rails up X2. 21:57 XRAY CXR (1 view) In Process Unspecified. EDMS 22:15 Accessed peripheral vein via ultrasound, utilizing dynamic ultrasound technique Blood jd3 collected. using ,sterile technique, Clean \T\ dry. Dressing intact. Good blood return. Flushes easily. placed by Tracy KIRKLAND. 22:15 First set of blood cultures drawn by me. bb 23:55 CT completed. Patient tolerated procedure well. Patient moved to CT via stretcher. Patient moved back from CT. 08/04 00:16 CT Chest For PE Angio In Process Unspecified. EDMS 01:06 No provider procedures requiring assistance completed. IV discontinued, intact, jd3 bleeding controlled, No redness/swelling at site. Pressure dressing applied. Administered Medications: 08/03 21:37 Drug: Xopenex 1.25 mg Route: Inhalation; jd3 22:15 Follow up: Response: No adverse reaction jd3 22:15 Drug: Lasix 40 mg Route: IVP; Site: right antecubital; jd3 23:15 Follow up: Response: No adverse reaction jd3 22:28 Drug: Demerol 25 mg Route: IVP; Site: right antecubital; jd3 23:25 Follow up: Response: No adverse reaction; RASS: Alert and Calm (0) jd3 Outcome: 08/04 00:56 Discharge ordered by . rn 01:06 Discharged to home ambulatory, with family. jd3 01:06 Condition: stable 01:06 Discharge instructions given to patient, Instructed on discharge instructions, follow up and referral plans. Demonstrated understanding of instructions, follow-up care. 01:08 Patient left the ED. jd3 Signatures: Dispatcher [employer] EDNY Lydia Raines mr AppleZhang campos Brenda, RN RN bb Michi Diaz MD MD rn FranksOdalys, RN RN lp1 Roel Nguyen RN RN jd3
[2019-08-04 03:23] VITALS: TEMP 98.2
[2019-08-04 03:26] VITALS: BP 113/64; O2SAT 99
--- NOTE | 2019-08-04 09:22 | EKG ---
Test Date: 2019-08-03 Test Time: 21:26:07 Explosive Man: JANINA MEASUREMENT RESULTS: Intervals: Rate: 74 IN: 174 QRSD: 82 QT: 400 QTc: 444 [place]: P: 47 IN: 174 QRS: 22 T: 27 INTERPRETIVE STATEMENTS: Normal sinus rhythm Normal ECG Compared to ECG 01/13/2019 08:42:26 ST (T wave) deviation no longer present Electronically Signed On 08-04-19 09:21:43 CDT by Kayode Ortiz
--- NOTE | 2019-08-04 10:43 | RAD REPORT ---
EXAM DESCRIPTION: Chest For Pe Angio CLINICAL HISTORY: 59 years Female DYSPNEA COMPARISON: Radiograph of the chest performed on the same day. TECHNIQUE: Images were obtained in axial, sagittal, and coronal planes. Intravenous contrast was adm inistered. Coronal oblique images also obtained. This exam was performed according to our departmental dose-optimization program which includes use of Automated Exposure Control, adjustment of the mA and/or kV according to patient size and/or use of i terative reconstruction technique. FINDINGS: No filling defects pulmonary arteries bilaterally. No aortic dissection or dilatation. Enlarged heart. No pericardial or pleural effusions bilaterally. Increased pulmonary vascularity. No lung parenchymal infiltrates or nodules seen. No acute osseous abnormality. Bilateral breast implants. No abnormality upper abdomen. 1.8 cm peripherally enhancing low-attenuation nodule inferior right lobe of thyroid. IMPRESSION: No evidence for pulmonary embolus. No aortic dissection or dilatation. Enlarged heart with marked increased pulmonary vascularity. Suspected 1.8 cm nodule inferior right lobe of thyroid. Correlation with ultrasound of the thyroid gl and needed for further characterization. Electronically signed by: Jessica Medina MD 08/04/2019 12:17 AM CDT Due to temporary technical issues with the PACS/Fluency reporting system, reports are being signed by the in house radiologist as a courtesy to ensure prompt reporting. The interpreting radiologist is f ully responsible for the content of the report.
--- NOTE | 2019-08-04 11:46 | RAD REPORT ---
EXAM DESCRIPTION: Chest Single View TECHNIQUE: Portable AP chest x-ray. Comparison: None. CLINICAL HISTORY: Cough;Dyspnea. Heart size: Borderline enlarged. No vascular congestion. Lungs: No acute consolidation. Pleura: No pleural effusion. No pneumothorax. Mediastinum and kimberly: Unremarkable. Skeletal: Resection or resorption distal left clavicle. Support tubings: None. IMPRESSION: 1. No acute findings in the chest. Electronically signed by: Jeremy Diego MD 08/03/2019 10:26 PM CDT Due to temporary technical issues with the PACS/Fluency reporting system, reports are being signed by the in house radiologist as a courtesy to ensure prompt reporting. The interpreting radiologist is f ully responsible for the content of the report.
== END 2019-08-04 01:08 | disposition home or self-care (01) ==
LOC: ER 20:43
DX: R60.9 Edema, unspecified (principal); I10 Essential (primary) hypertension; F32.9 Major depressive disorder, single episode, unspecified; E78.5 Hyperlipidemia, unspecified; E07.9 Disorder of thyroid, unspecified; Z98.82 Breast implant status; Z88.0 Allergy status to penicillin; Z88.3 Allergy status to other anti-infective agents; Z88.5 Allergy status to narcotic agent; Z91.040 Latex allergy status; Z91.048 Other nonmedicinal substance allergy status
CPT/HCPCS: 93005; 87040 ×2; 85025; 80048; 36415; 80076; 83605; 84484; 84145; 83880; 87804 ×2; 71275; 71045; 96375; 96374; 99285; Q9967; J1940; J2175

== ENCOUNTER 2019-09-18 18:24 | Emergency (ER) | payer BC, OTHER ==
[2019-09-18] MEDS ORDERED: HYDROCODONE/APAP 10/325 TAB ONE (19:20)
--- NOTE | 2019-09-18 20:18 | EDPHYS ---
Physician Documentation [facility] Name: Lydia Hanson Age: 59 yrs Sex: Female : 1960 Arrival Date: 09/18/2019 Time: 18:26 Bed 19 Private MD: Joshua Garcia ED Physician Cipriano Resendez HPI: 09/18 19:12 This 59 yrs old Female presents to ER via Ambulatory with complaints of Right pm1 Wrist Pain. 19:12 The patient or guardian reports pain. The complaints affect the right wrist diffusely. pm1 Context: resulted from diagnosed with carpal tunnel syndrome by Dr. Green and pending surgery once cleared medically by her PCP. Patient reports that her pain was worse last night to her right hand. She reports some swelling to there right hand and contacted Dr. Green over the phone. Dr Green told her to go to the ER because he was concerned that she might have a blood clot. Compartment Syndrome negative for numbness, tingling. Historical: - Allergies: 18:32 CEPHALOSPORINS; la1 18:32 Codeine; la1 18:32 Latex, Natural Rubber; la1 18:32 PENICILLINS; la1 18:32 TETRACYCLINES; la1 - PMHx: 18:32 Depression; Hyperlipidemia; Hypertension; narcolepsy; Sleep Apnea; Thyroid problem; la1 V-tach; - Immunization history:: Adult Immunizations up to date. - Social history:: Smoking status: Patient/guardian denies using tobacco. - Ebola Screening: : No symptoms or risks identified at this time. ROS: 19:12 Constitutional: Negative for fever, chills, and weight loss, Eyes: Negative for injury, pm1 pain, redness, and discharge, ENT: Negative for injury, pain, and discharge, Neck: Negative for injury, pain, and swelling, Cardiovascular: Negative for chest pain, palpitations, and edema, Respiratory: Negative for shortness of breath, cough, wheezing, and pleuritic chest pain, Abdomen/GI: Negative for abdominal pain, nausea, vomiting, diarrhea, and constipation, Back: Negative for injury and pain. 19:12 Skin: Negative for injury, rash, and discoloration, Neuro: Negative for headache, weakness, numbness, tingling, and seizure. 19:12 MS/extremity: Positive for pain, of the right wrist and right hand, Negative for decreased range of motion, deformity. Exam: 19:12 Hand exam: is negative for decreased range of motion, deformity, Exam is positive for pm1 Phalens Tinnels right wrist. 19:12 Constitutional: This is a well developed, well nourished patient who is awake, alert, and in no acute distress. Head/Face: Normocephalic, atraumatic. Neck: Trachea midline, no thyromegaly or masses palpated, and no cervical lymphadenopathy. Supple, full range of motion without nuchal rigidity, or vertebral point tenderness. No Meningismus. Chest/axilla: Normal chest wall appearance and motion. Nontender with no deformity. No lesions are appreciated. Cardiovascular: Regular rate and rhythm with a normal S1 and S2. No gallops, murmurs, or rubs. Normal PMI, no JVD. No pulse deficits. Respiratory: Lungs have equal breath sounds bilaterally, clear to auscultation and percussion. No rales, rhonchi or wheezes noted. No increased work of breathing, no retractions or nasal flaring. Back: No spinal tenderness. No costovertebral tenderness. Full range of motion. Skin: Warm, dry with normal turgor. Normal color with no rashes, no lesions, and no evidence of cellulitis. 19:12 Neuro: Orientation: is normal, Motor: is normal, moves all fours. Vital Signs: 18:32 BP 152 / 80; Pulse 64; Resp 16; Temp 98.6; Pulse Ox 100% on R/A; Weight 96.16 kg; la1 Height 5 ft. 7 in. (170.18 cm); 18:32 Body Mass Index 33.20 (96.16 kg, 170.18 cm) la1 MDM: 18:35 Patient medically screened. danilo 20:16 Data reviewed: vital signs. Data interpreted: Pulse oximetry: on room air is 100 %. pm1 Interpretation: normal. Counseling: I had a detailed discussion with the patient and/or guardian regarding: the historical points, exam findings, and any diagnostic results supporting the discharge/admit diagnosis, radiology results, the need for outpatient follow up, a hand specialist, a orthopedic surgeon, to return to the emergency department if symptoms worsen or persist or if there are any questions or concerns that arise at home. 09/18 18:53 Order name: Extremity Venous Uni Ltd pm1 Administered Medications: 19:23 Drug: Canterbury 10 mg-325 mg 1 tabs {Note: Pt states she is not alergic to NORCO RASS 0.} Route: PO; 20:37 Follow up: Response: Pain is decreased; RASS: Alert and Calm (0) lp1 Disposition: 09/19 13:26 Co-signature as Attending Physician, Cipriano Resendez MD I agree with the assessment and danilo plan of care. Disposition: 09/18/19 20:17 Discharged to Home. Impression: Carpal tunnel syndrome, right upper limb. - Condition is Stable. - Discharge Instructions: Carpal Tunnel Syndrome, Wrist Splint. - Prescriptions for Tramadol 50 mg Oral Tablet - take 1 tablet by ORAL route every 8 hours as needed; 12 tablet. - Medication Reconciliation Form, Thank You Letter, Antibiotic Education, Prescription Opioid Use form. - Follow up: Emergency Department; When: As needed; Reason: Worsening of condition. Follow up: Alexi Villatoro MD; When: 2 - 3 days; Reason: Recheck today's complaints, Continuance of care, Re-evaluation by your physician. - Problem is new. - Symptoms have improved. Signatures: Dispatcher [employer] EDCipriano Benjamin MD MD cha Pena, Laura RN RN lp1 Elvin Baca RN RN la1 Baljeet De La Rosa NP WASTEWATER ANALYST pm1 Nerissa Baird Corrections: (The following items were deleted from the chart) 09/18 20:36 20:17 09/18/2019 20:17 Discharged to Home. Impression: Carpal tunnel syndrome, right lp1 upper limb. Condition is Stable. Forms are Medication Reconciliation Form, Thank You Letter, Antibiotic Education, Prescription Opioid Use. Follow up: Emergency Department; When: As needed; Reason: Worsening of condition. Follow up: Alexi Villatoro; When: 2 - 3 days; Reason: Recheck today's complaints, Continuance of care, Re-evaluation by your physician. Problem is new. Symptoms have improved. pm1
--- NOTE | 2019-09-18 20:18 | ER ---
Nurse's Notes [facility] Name: Lydia Hanson Age: 59 yrs Sex: Female : 1960 Arrival Date: 09/18/2019 Time: 18:26 Bed 19 Private MD: Joshua Aragon Diagnosis: Carpal tunnel syndrome, right upper limb Presentation: 09/18 18:31 Presenting complaint: Patient states: I saw Dr sorto two weeks ago and he thinks I la1 have carpal tunnel in my right hand/wrist and I need to have sx but I am waiting for Dr aragon to send over my pre op stuff. My pain is much worse today. Transition of care: patient was not received from another setting of care. Onset of symptoms was September 18, 2019. Risk Assessment: Do you want to hurt yourself or someone else? Patient reports no desire to harm self or others. Initial Sepsis Screen: Does the patient meet any 2 criteria? No. Patient's initial sepsis screen is negative. Does the patient have a suspected source of infection? No. Patient's initial sepsis screen is negative. Care prior to arrival: None. 18:31 Method Of Arrival: Ambulatory la1 18:31 Acuity: RIA 4 la1 Historical: - Allergies: 18:32 CEPHALOSPORINS; la1 18:32 Codeine; la1 18:32 Latex, Natural Rubber; la1 18:32 PENICILLINS; la1 18:32 TETRACYCLINES; la1 - PMHx: 18:32 Depression; Hyperlipidemia; Hypertension; narcolepsy; Sleep Apnea; Thyroid problem; la1 V-tach; - Immunization history:: Adult Immunizations up to date. - Social history:: Smoking status: Patient/guardian denies using tobacco. - Ebola Screening: : No symptoms or risks identified at this time. Screenin:02 Abuse screen: Denies threats or abuse. Denies injuries from another. Nutritional lp1 screening: No deficits noted. Tuberculosis screening: No symptoms or risk factors identified. 20:35 Fall Risk None identified. lp1 Assessment: 19:15 General: Appears in no apparent distress. Behavior is calm, cooperative, appropriate lp1 for age. Pain: Complains of pain in right wrist Pain currently is 8 out of 10 on a pain scale. Aggravated by increased activity, repositioning. Neuro: No deficits noted. Cardiovascular: No deficits noted. Respiratory: No deficits noted. GI: No deficits noted. : No deficits noted. EENT: No signs and/or symptoms were reported regarding the EENT system. Derm: Skin is pink, warm \T\ dry. Musculoskeletal: Circulation, motion, and sensation intact. Reports pain in right wrist. 20:35 Reassessment: Patient appears in no apparent distress at this time. Some relief with lp1 medication administered Patient states symptoms have improved. Vital Signs: 18:32 BP 152 / 80; Pulse 64; Resp 16; Temp 98.6; Pulse Ox 100% on R/A; Weight 96.16 kg; la1 Height 5 ft. 7 in. (170.18 cm); 18:32 Body Mass Index 33.20 (96.16 kg, 170.18 cm) la1 ED Course: 18:26 Patient arrived in ED. mr 18:26 Joshua Aragon MD is Private Physician. mr 18:32 Triage completed. la1 18:32 Arm band placed on left wrist. la1 18:34 Baljeet Quintero NP is PHCP. pm1 18:34 Cipriano Resendez MD is Attending Physician. pm1 18:35 Ramon Agudelo LVN is Primary Nurse. em 20:17 Alexi Villatoro MD is Referral Physician. pm1 20:17 Ultrasound completed. Patient tolerated well. Notified OVERLOCK COLLAR SETTER/MICHELLE quintero. sg3 20:35 Patient has correct armband on for positive identification. lp1 20:35 No provider procedures requiring assistance completed. Patient did not have IV access lp1 during this emergency room visit. Administered Medications: 19:23 Drug: Josephine 10 mg-325 mg 1 tabs {Note: Pt states she is not alergic to NORCO RASS 0.} wh Route: PO; 20:37 Follow up: Response: Pain is decreased; RASS: Alert and Calm (0) lp1 Outcome: 20:17 Discharge ordered by MD. pm1 20:35 Discharged to home ambulatory. lp1 20:35 Condition: good 20:35 Discharge instructions given to patient, Instructed on discharge instructions, follow up and referral plans. medication usage, Demonstrated understanding of instructions, follow-up care, medications, Prescriptions given X 1. 20:36 Patient left the ED. lp1 Signatures: Lydia Raines mr Ramon Agudelo LVN LVN em Odalys Franks RN RN lp1 Elvin Baca RN RN la1 Baljeet Quintero, OVERLOCK COLLAR SETTER OVERLOCK COLLAR SETTER pm1 Nerissa Baird Sarah sg3 Corrections: (The following items were deleted from the chart) 18:33 18:31 Presenting complaint: Patient states: I saw Dr sorto two weeks ago and he la1 thinks I have carpal tunnel and I need to have sx but I am waiting for Dr aragon to send over my pre op stuff. My pain is much worse today. la1
--- NOTE | 2019-09-18 20:53 | RAD REPORT ---
EXAM DESCRIPTION: US - Extremity Venous Uni Ltd - 09/18/2019 8:17 pm CLINICAL HISTORY: Right arm pain and swelling COMPARISON: None. TECHNIQUE: Real-time sonographic evaluation of the right upper extremity deep venous systems was per formed. FINDINGS: Normal compressibility, flow augmentation, phasic flow and spontaneous flow are identified in the right upper extremity deep venous system. No intraluminal filling defects seen. Internal jugu lar and subclavian veins are normal as well. IMPRESSION: No DVT in the right upper extremity.
[2019-09-18 21:51] VITALS: BP 152/80; TEMP 98.6; O2SAT 100
== END 2019-09-18 20:36 | disposition home or self-care (01) ==
LOC: ER 18:24
DX: G56.01 Carpal tunnel syndrome, right upper limb (principal); I10 Essential (primary) hypertension; Z88.0 Allergy status to penicillin; Z88.1 Allergy status to other antibiotic agents; Z88.5 Allergy status to narcotic agent; Z91.040 Latex allergy status; Z91.048 Other nonmedicinal substance allergy status
CPT/HCPCS: 93971; 99283

== ENCOUNTER 2020-04-27 15:13 | Emergency (ER) | payer BC, OTHER ==
--- NOTE | 2020-04-27 17:11 | RAD REPORT ---
EXAM DESCRIPTION: Tracy Single View04/27/2020 4:57 pm CLINICAL HISTORY: sob COMPARISON: January 2020 FINDINGS: The lungs appear clear of acute infiltrate. The heart is normal size IMPRESSION: No acute abnormalities displayed
[2020-04-27] MEDS ORDERED: ALBUTEROL INHALER 60 PUFF/8 GM IH ONE (17:33)
[2020-04-27] MEDS ORDERED: METHYLPREDNISOLONE 125 MG INJ ONE (17:33)
[2020-04-27 17:50] LABS: Absolute Lymphocytes (CBC) 0.9 K/uL (0.7-4.9); Basophils % 0.8 % (0-1.3); Hematocrit 38.4 % (36.0-45.0); Lymphocytes % 34.8 % (15.3-44.8); MPV 7.5 fL (7.6-11.3); RBC Red Blood Cell Count 4.01 M/uL (3.86-4.86)
[2020-04-27 18:11] LABS: Protime INR 0.98
[2020-04-27 18:15] LABS: ALT/SGPT 37 U/L (12-78); AST/SGOT 26 U/L (15-37); Alkaline Phosphatase 121 U/L (45-117); BUN Blood Urea Nitrogen 8 mg/dL (7-18); Bicarbonate 26 mmol/L (21-32); Bilirubin Direct 0.1 mg/dL (0-0.2); Bilirubin Total 0.3 mg/dL (0.2-1.0); Glucose Level 83 mg/dL (74-106); Magnesium 2.1 mg/dL (1.8-2.4); NT PRO-BNP 75 pg/mL (<125); Potassium 4.2 mmol/L (3.5-5.1); Sodium Level 138 mmol/L (136-145); Troponin (Emerg Dept Use Only) < 0.02 ng/mL (0.0-0.045)
--- NOTE | 2020-04-27 18:44 | EDPHYS ---
Physician Documentation [facility] Name: Lydia Hanson Age: 59 yrs Sex: Female : 1960 Arrival Date: 04/27/2020 Time: 15:14 Bed 16 Private MD: ED Physician Akil Bull HPI: 04/27 17:26 This 59 yrs old Female presents to ER via Ambulatory with complaints of jr8 Shortness Of Breath, Cough, Fever, + COVID. 17:26 The patient has shortness of breath at rest, with light activity. Onset: The jr8 symptoms/episode began/occurred gradually, 2 day(s) ago. Duration: The symptoms are continuous. The patient's shortness of breath is aggravated by nothing, is alleviated by nothing. Associated signs and symptoms: Pertinent positives: non-productive cough, fever. Severity of symptoms: At their worst the symptoms were moderate in the emergency department the symptoms are unchanged. The patient has not experienced similar symptoms in the past. The patient has not recently seen a physician. Patient stated that she was tested for COVID for preop this past Friday. Came back Positive on Friday. Starting this past Friday started to become symptomatic with cough, fever. Now with chest tightness and shortness of breath . Historical: - Allergies: 15:20 CEPHALOSPORINS; ss 15:20 Codeine; ss 15:20 Latex, Natural Rubber; ss 15:20 PENICILLINS; ss 15:20 TETRACYCLINES; ss - PMHx: 15:20 Hyperlipidemia; Hypertension; narcolepsy; Sleep Apnea; Thyroid problem; V-tach; ss Depression; - Immunization history:: Adult Immunizations up to date. - Social history:: Smoking status: Patient denies any tobacco usage or history of. ROS: 17:26 Eyes: Negative for injury, pain, redness, and discharge, ENT: Negative for injury, jr8 pain, and discharge, Neck: Negative for injury, pain, and swelling, Abdomen/GI: Negative for abdominal pain, nausea, vomiting, diarrhea, and constipation, Back: Negative for injury and pain, MS/Extremity: Negative for injury and deformity, Skin: Negative for injury, rash, and discoloration, Neuro: Negative for headache, weakness, numbness, tingling, and seizure. 17:26 Cardiovascular: Positive for chest pain, Negative for edema, orthopnea, palpitations, paroxysmal nocturnal dyspnea. 17:26 Respiratory: Positive for cough, dyspnea on exertion, shortness of breath, wheezing. Exam: 17:26 Eyes: Pupils equal round and reactive to light, extra-ocular motions intact. Lids and jr8 lashes normal. Conjunctiva and sclera are non-icteric and not injected. Cornea within normal limits. Periorbital areas with no swelling, redness, or edema. ENT: Nares patent. No nasal discharge, no septal abnormalities noted. Tympanic membranes are normal and external auditory canals are clear. Oropharynx with no redness, swelling, or masses, exudates, or evidence of obstruction, uvula midline. Mucous membranes moist. Neck: Trachea midline, no thyromegaly or masses palpated, and no cervical lymphadenopathy. Supple, full range of motion without nuchal rigidity, or vertebral point tenderness. No Meningismus. Cardiovascular: Regular rate and rhythm with a normal S1 and S2. No gallops, murmurs, or rubs. Normal PMI, no JVD. No pulse deficits. Abdomen/GI: Soft, non-tender, with normal bowel sounds. No distension or tympany. No guarding or rebound. No evidence of tenderness throughout. Back: No spinal tenderness. No costovertebral tenderness. Full range of motion. Skin: Warm, dry with normal turgor. Normal color with no rashes, no lesions, and no evidence of cellulitis. MS/ Extremity: Pulses equal, no cyanosis. Neurovascular intact. Full, normal range of motion. Neuro: Awake and alert, GCS 15, oriented to person, place, time, and situation. Cranial nerves II-XII grossly intact. Motor strength 5/5 in all extremities. Sensory grossly intact. Cerebellar exam normal. Normal gait. 17:26 Respiratory: the patient does not display signs of respiratory distress, Respirations: normal, Breath sounds: wheezing: expiratory that is mild, is heard diffusely. Vital Signs: 15:18 BP 129 / 62; Pulse 68; Resp 16; Pulse Ox 99% on R/A; Weight 88 kg; Height 5 ft. 7 in. ss (170.18 cm); Pain 0/10; 17:49 BP 121 / 55; Pulse 59; Resp 18; Pulse Ox 99% on R/A; Pain 0/10; ls4 15:18 Body Mass Index 30.38 (88.00 kg, 170.18 cm) ss MDM: 15:30 Patient medically screened. jr8 18:40 Data reviewed: vital signs, nurses notes, lab test result(s), EKG, radiologic studies, jr8 plain films. Data interpreted: Pulse oximetry: on room air is 99 %. Interpretation: normal. Counseling: I had a detailed discussion with the patient and/or guardian regarding: the historical points, exam findings, and any diagnostic results supporting the discharge/admit diagnosis, lab results, radiology results, the need for outpatient follow up, a family practitioner, to return to the emergency department if symptoms worsen or persist or if there are any questions or concerns that arise at home. Response to treatment: the patient's symptoms have markedly improved after treatment. ED course: Patient feeling much better post treatment. Will send home on albuterol HFA and Decadron since it is COVID related. Explained to her that she needs to remain in isolation. If her breathing gets worse to come back. Otherwise would advise to get another nasal PCR done in 14 days. 04/27 16:25 Order name: Basic Metabolic Panel; Complete Time: 18:20 04/27 16:25 Order name: CBC with Diff 04/27 16:25 Order name: LFT's; Complete Time: 18:20 04/27 16:25 Order name: Magnesium; Complete Time: 18:20 04/27 16:25 Order name: NT PRO-BNP; Complete Time: 18:20 04/27 16:25 Order name: PT-INR; Complete Time: 18:25 04/27 16:25 Order name: Troponin (emerg Dept Use Only); Complete Time: 18:20 04/27 16:25 Order name: XRAY Chest (1 view); Complete Time: 17:26 04/27 16:25 Order name: EKG; Complete Time: 16:26 04/27 16:25 Order name: Cardiac monitoring; Complete Time: 17:46 04/27 16:25 Order name: EKG - Nurse/Tech; Complete Time: 19:12 04/27 16:25 Order name: DD; Complete Time: 18:25 04/27 16:25 Order name: IV Saline Lock; Complete Time: 17:46 04/27 16:25 Order name: Labs collected and sent; Complete Time: 17:46 jr8 04/27 16:25 Order name: O2 Per Protocol; Complete Time: 17:46 8 04/27 16:25 Order name: O2 Sat Monitoring; Complete Time: 17:46 8 Administered Medications: 17:40 Drug: Albuterol HFA Inhaler 2 puffs Route: Inhalation; ls4 18:11 Follow up: Response: No adverse reaction ls4 17:40 Drug: SOLU-Medrol 125 mg Route: IVP; Site: right antecubital; ls4 18:10 Follow up: Response: No adverse reaction; Marked relief of symptoms ls4 Disposition: 04/28 14:56 Co-signature as Attending Physician, Akil Bull MD I agree with the assessment and kdr plan of care. Disposition: 04/27/20 18:44 Discharged to Home. Impression: Acute bronchitis due to other specified organisms - COVID-19 Viral illness. - Condition is Stable. - Discharge Instructions: Acute Bronchitis, Adult, COVID-19. - Prescriptions for dexamethasone 4 mg Oral tablet - take 4 tablet by ORAL route once daily for 2 days; 8 tablet. Albuterol Sulfate 90 mcg/actuation Inhalation - inhale 2 puff by INHALATION route every 4-6 hours; 1 Inhaler. - Medication Reconciliation Form, Thank You Letter, Antibiotic Education, Prescription Opioid Use form. - Follow up: Private Physician; When: As needed; Reason: Recheck today's complaints, Continuance of care, Re-evaluation by your physician. - Problem is new. - Symptoms have improved. Signatures: Dispatcher [employer] EDFL Akil Bull MD MD [facility] Corinne Alfred RN RN David Camarillo PA PA jr8 Karie Woodward, RN RN ls4 Corrections: (The following items were deleted from the chart) 04/27 19:48 18:44 04/27/2020 18:44 Discharged to Home. Impression: Acute bronchitis due to other ls4 specified organisms - COVID-19 Viral illness. Condition is Stable. Forms are Medication Reconciliation Form, Thank You Letter, Antibiotic Education, Prescription Opioid Use. Follow up: Private Physician; When: As needed; Reason: Recheck today's complaints, Continuance of care, Re-evaluation by your physician. Problem is new. Symptoms have improved. jr8
--- NOTE | 2020-04-27 18:44 | ER ---
Nurse's Notes [facility] Name: Lydia Hanson Age: 59 yrs Sex: Female : 1960 Arrival Date: 04/27/2020 Time: 15:14 Bed 16 Private MD: Diagnosis: Acute bronchitis due to other specified [id number] Viral illness Presentation: 04/27 15:18 Chief complaint: Patient states: Recently tested positive for Covid. Pt reports she ss originally had no symptoms, but now she has chest tightness, cough and fever. Coronavirus screen: Surgical mask placed on patient. Patient moved to private room, placed in contact and droplet isolation with eye protection until further assessment. Ebola Screen: Patient denies exposure to infectious person. Patient denies travel to an Ebola-affected area in the 21 days before illness onset. Initial Sepsis Screen: Does the patient meet any 2 criteria? No. Patient's initial sepsis screen is negative. Does the patient have a suspected source of infection? No. Patient's initial sepsis screen is negative. Risk Assessment: Do you want to hurt yourself or someone else? Patient reports no desire to harm self or others. Onset of symptoms was April 25, 2020. 15:18 Method Of Arrival: Ambulatory ss 15:18 Acuity: RIA 3 ss Triage Assessment: 15:57 General: Appears in no apparent distress. Behavior is calm, cooperative. Respiratory: ls4 Reports shortness of breath at rest on exertion cough that is non-productive, dry, hacking, persistent Onset: The symptoms/episode began/occurred yesterday, the patient has mild shortness of breath. Historical: - Allergies: 15:20 CEPHALOSPORINS; ss 15:20 Codeine; ss 15:20 Latex, Natural Rubber; ss 15:20 PENICILLINS; ss 15:20 TETRACYCLINES; ss - PMHx: 15:20 Hyperlipidemia; Hypertension; narcolepsy; Sleep Apnea; Thyroid problem; V-tach; ss Depression; - Immunization history:: Adult Immunizations up to date. - Social history:: Smoking status: Patient denies any tobacco usage or history of. Screenin:57 Abuse screen: Denies threats or abuse. Denies injuries from another. Nutritional ls4 screening: No deficits noted. Tuberculosis screening: No symptoms or risk factors identified. Fall Risk None identified. Assessment: 15:55 General: Appears in no apparent distress. uncomfortable. Pain: Denies pain. Neuro: No ls4 deficits noted. Level of Consciousness is awake, alert, obeys commands, Oriented to person, place, time, situation. Cardiovascular: Denies diaphoresis, fatigue, lightheadedness, nausea, palpitations, syncope, vomiting, Heart tones S1 S2 Capillary refill < 3 seconds Patient's skin is warm and dry. Rhythm is regular Chest pain is denied. Respiratory: Reports shortness of breath on exertion cough that is non-productive, dry, hacking, persistent since 2 days Airway is patent Respiratory effort is even, unlabored, Respiratory pattern is regular, Breath sounds are clear bilaterally. GI: No deficits noted. No signs and/or symptoms were reported involving the gastrointestinal system. : No deficits noted. No signs and/or symptoms were reported regarding the genitourinary system. EENT: No deficits noted. No signs and/or symptoms were reported regarding the EENT system. Derm: No deficits noted. No signs and/or symptoms reported regarding the dermatologic system. Musculoskeletal: No deficits noted. No signs and/or symptoms reported regarding the musculoskeletal system. Vital Signs: 15:18 BP 129 / 62; Pulse 68; Resp 16; Pulse Ox 99% on R/A; Weight 88 kg; Height 5 ft. 7 in. ss (170.18 cm); Pain 0/10; 17:49 BP 121 / 55; Pulse 59; Resp 18; Pulse Ox 99% on R/A; Pain 0/10; ls4 15:18 Body Mass Index 30.38 (88.00 kg, 170.18 cm) ED Course: 15:14 Patient arrived in ED. ss 15:19 Triage completed. ss 15:20 Arm band placed on right wrist. ss 15:30 David Landaverde PA is PHCP. jr8 15:30 Akil Bull MD is Attending Physician. jr8 15:30 Karie Woodward, MARITA is Primary Nurse. ls4 15:57 No apparent distress. ls4 15:57 Patient has correct armband on for positive identification. Bed in low position. Call ls4 light in reach. Side rails up X 1. shipfitter on. Pulse ox on. NIBP on. Verbal reassurance given. Diet: Patient is NPO. 15:57 No provider procedures requiring assistance completed. ls4 16:57 XRAY Chest (1 view) In Process Unspecified. EDMS 17:40 No apparent distress. ls4 17:40 Initial lab(s) drawn, by me, held in ED. ls4 17:40 Inserted saline lock: 18 gauge in right antecubital area, using aseptic technique. ls4 Blood collected. Patient maintains SpO2 saturation greater than 95% on room air. Administered Medications: 17:40 Drug: Albuterol HFA Inhaler 2 puffs Route: Inhalation; ls4 18:11 Follow up: Response: No adverse reaction ls4 17:40 Drug: SOLU-Medrol 125 mg Route: IVP; Site: right antecubital; ls4 18:10 Follow up: Response: No adverse reaction; Marked relief of symptoms ls4 Outcome: 18:44 Discharge ordered by . isaak 19:48 Patient left the ED. ls4 Signatures: Dispatcher [employer] EDWI Corinne Alfred RN RN ss Roszak, Josh, PA PA jr8 Stewart, Lisa RN RN ls4
[2020-04-27 19:57] VITALS: O2SAT 99
[2020-04-27 19:58] VITALS: BP 121/55
[2020-04-27 20:26] LABS: Urine White Blood Cell Casts OK
[2020-04-27 20:27] LABS: Blood Morphology Comment NOT SEEN (NOT SEEN); Platelet Estimate DECR
--- NOTE | 2020-04-28 06:38 | EKG ---
Test Date: 2020-04-27 Test Time: 18:30:55 Media Developer: IVÁN MEASUREMENT RESULTS: Intervals: Rate: 63 FL: 196 QRSD: 82 QT: 404 QTc: 413 [place]: P: 57 FL: 196 QRS: 36 T: 46 INTERPRETIVE STATEMENTS: Normal sinus rhythm Normal ECG Compared to ECG 09/06/2019 11:03:45 No significant changes Electronically Signed On 04-28-20 06:37:36 CDT by Elliott Moon
== END 2020-04-27 19:48 | disposition home or self-care (01) ==
LOC: ER 15:13
DX: U07.1 COVID-19 (principal); J20.8 Acute bronchitis due to other specified organisms; I10 Essential (primary) hypertension; Z88.0 Allergy status to penicillin; Z88.1 Allergy status to other antibiotic agents; Z88.3 Allergy status to other anti-infective agents; Z88.5 Allergy status to narcotic agent; Z91.040 Latex allergy status; Z91.048 Other nonmedicinal substance allergy status
CPT/HCPCS: 93005; 85025; 80048; 36415; 83735; 85610; 85379; 80076; 84484; 83880; 71045; 96374; 99285; J2930

== ENCOUNTER 2020-04-30 18:52 | Emergency (ER) | payer BC, OTHER ==
--- OUTSIDE RECORDS SUMMARY | 2020-04-30 18:55 | XMS REPORT | Clinical Summary ---
:1960 Author Organization [facility] Address [address] [place] [address] Care Team Providers Name Role Phone Gio Garcia MD Primary Care Provider Allergies Active Allergy Reactions Severity Noted Date Comments Cephalosporins Anaphylaxis High 03/02/2016 Most likely K eflex 500mg per patient. Facial rash, hi ves, admitted to ICU Codeine Itching 03/02/2016 Latex 01/22/2017 blisters Eszopiclone 01/22/2017 Metallic taste in mouth, tachycardia Penicillins Rash Low 03/02/2016 Tetracycline Anaphylaxis High 03/02/2016 Medications Medication Sig Dispensed Refills Start Date End Date Status zolpidem (AMBIEN) 10 mg Take 10 mg by 0 Active tablet mouth nightly as needed for sleep. zolpidem 10 mg tablet tiotropium (SPIRIVA) 18 Place 1 capsule 0 Active mcg per inhalation into inhaler and capsule inhale daily as needed. montelukast (SINGULAIR) Take 10 mg by 0 Active 10 mg tablet mouth every evening. ursodiol (ACTIGALL) 300 Take 300 mg by 1 02/21/2016 Active mg capsule mouth 2 (two) times a day. ARIPiprazole (ABILIFY) 5 Take 5 mg by 0 Active MG tablet mouth daily. clonAZEPAM (KlonoPIN) 1 Take 1 mg by 0 Active MG tablet mouth 2 (two) times a day as needed for anxiety. dexmethylphenidate XR Take 40 mg by 0 Active (FOCALIN XR) 40 mg 24 hr mouth every capsule morning. DULoxetine (CYMBALTA) 60 Take 60 mg by 0 Active MG capsule mouth daily. hydroxychloroquine Take 200 mg by 0 Active (PLAQUENIL) 200 mg mouth 2 (two) tablet times a day. omeprazole (PriLOSEC) 40 Take 40 mg by 0 Active MG capsule mouth daily. BYSTOLIC 10 mg tablet 5 mg daily. Pt 5 03/11/2017 Active was prescribed 10 mg but when pressure or heart rate is low pt takes 5 mg prazosin (MINIPRESS) 1 1 mg. 3x nightly 1 03/11/2017 Active MG capsule SODIUM OXYBATE (XYREM Take by mouth. 0 Active ORAL) valsartan-hydrochlorothi Take 1 tablet by 3 05/07/20 18 Active azide (DIOVAN-HCT) mouth daily. 80-12.5 mg per tablet CRESTOR 5 mg tablet Take 5 mg by 3 05/07/2018 Active mouth daily. levothyroxine Take 50 mcg by 6 05/07/2018 Active (SYNTHROID, LEVOXYL) 50 mouth daily. mcg tablet DULoxetine (CYMBALTA) 30 Take 90 mg by 2 05/07/2018 Active MG capsule mouth daily. dexmethylphenidate XR TAKE 1 CAPSULE 0 07/06/2018 Active (FOCALIN XR) 20 MG 24 hr BY MOUTH EVERY capsule AFTERNOON RESTASIS MULTIDOSE 0.[address] 1 DROP IN 11 05/07/2018 Active % drops EACH EYE TWICE DAILY buPROPion XL (WELLBUTRIN TAKE 1 TABLET BY 2 05/07/20 18 Active XL) 150 MG 24 hr tablet MOUTH EACH MORNING. magnesium sulfate 100 mg Take 100 mg by 0 Active capsule mouth daily. potassium chloride Take 10 mEq by 0 Active (KLOR-CON) 10 MEQ CR mouth 2 (two) tablet times a day. furosemide (LASIX) 20 mg Take 20 mg by 0 Active tablet mouth 2 (two) times a day. levoFLOXacin (LEVAQUIN) Take 750 mg by 0 Active 750 MG tablet mouth daily. ondansetron ODT Take 4 mg by 0 A ctive (ZOFRAN-ODT) 4 MG mouth every 8 disintegrating tablet (eight) hours as needed for nausea or vomiting. 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 PTSD (post-traumatic stress disorder) 03/08/2016 HLD (hyperlipidemia) 03/08/2016 Hypertension 03/02/2016 Hypothyroidism 03/02/2016 GERD (gastroesophageal reflux disease) Encounters Date Type Specialty Care Team Description 04/24/2020 Travel 04/14/2020 Travel 09/29/2019 Office Visit General Surgery Noe Ceja Change in sinan wel habits (Primary Dx); MD Daniel HPV in female 09/15/2019 Telephone General Surgery Yesenia Lacy MA after 04/30/2019 Family History Medical History Relation Name Comments Drug abuse Brother Tee Tomas Cancer Father Lupillo tomas Diabetes Maternal Grandfather VERONA Depression Mother [place] COPD Paternal Grandfather Lupillo D Tomas Hypertension Paternal Grandmother Syeda Tomas Relation [...] Travel End No recent travel history available. COVID-19 Exposure Response Date Recorded In the last month, have you been in contact with Yes 04/24/2020 1:45 PM CDT someone who was confirmed or suspected to have Coronavirus / COVID-19? Last Filed Vital Signs Vital Sign Reading Time Taken Comments Blood Pressure 147/74 09/29/2019 8:10 AM [employer] Pulse 68 09/29/2019 8:10 AM [employer] Temperature 36.3 C (97.4 F) 09/29/2019 8:10 AM [employer] Respiratory Rate - - Oxygen Saturation - - Inhaled Oxygen Concentration - - Weight - - Height - - Body Mass Index - - Plan of Treatment Date Type Specialty Care Team Description 05/09/2020 Telemedicine Cardiology Royce Escobar [facility] [address] [facility] [address] [place], [place] [address] [phone] Health Maintenance Due Date Last Done Comments COLONOSCOPY SCREENING 2010 SHINGLES VACCINES (#1) 2010 BREAST CANCER SCREENING 11/10/2015 11/10/2013 INFLUENZA VACCINE 06/10/2020 08/24/2019 CERVICAL CANCER SCREENING 03/30/2022 03/30/2019, 11/10/2013 Results Not on fileafter 04/30/2019 Advance Directives For more information, please contact: [phone] Type Date Recorded Patient Psychologist Personnel Explanati on Advance Directives, Living Will 01/22/2017 9:47 AM and Medical Power of Green Chain Operator Code Status Date Activated Date Inactivated Comments Full Code 01/22/2017 6:05 PM 01/24/2017 7:39 PM Code Status decision reached by: Patient
--- OUTSIDE RECORDS SUMMARY | 2020-04-30 18:56 | XMS REPORT | Summary of Care ---
:1960 Author Name Paris Singh Address Unavailable Unavailable , Care Team Providers Name Role Phone YESY Cline Unavailable Unavailable MIKE SCHMIDT UT Unavailable Unavailable JACQUELIN SCHMIDT Unavailable Unavailable YESY SCHMIDT [place] Unavailable Unavailable Unavailable Unavailable Unavailable Functional Status Name Dates Details Functional status health issues are not documented Status: Name Dates Details Cognitive status health issues are not documented Status: Problems Name Dates Details Visit for screening mammogram (V76.12, Z12.31) Status: Active Right lower quadrant abdominal tenderness (789.63, R10.813) Status: Active Vaginal discharge (623.5, N89.8) Status: Active Breast mass (611.72, N63.0) Status: Acti ve Incontinence in female (625.6, R32) Stat us: Active Mixed stress and urge urinary incontinence (788.33, N39.46) Status: Active Urinary frequency (788.41, R35.0) Status : Active Urinary urgency (788.63, R39.15) Status: Active Vaginal atrophy (627.3, N95.2) Status: A ctive Breast pain in female (611.71, N64.4) St atus: Active Medications Name Dates Details Crestor 5 MG Oral Tablet Refills: 0 Active Bystolic 10 MG Oral Tablet Refills: 0 Active Prazosin HCl - 1 MG Oral Capsule Refills: 0 Active Montelukast Sodium 10 MG Oral Tablet Refills: 0 Active Levothyroxine Sodium 50 MCG Oral Tablet Refills: 0 Active Ambien 10 MG Oral Tablet Refills: 0 Active DULoxetine HCl - 60 MG Oral Capsule Delayed Release Particles Refills: 0 Active ARIPiprazole 10 MG Oral Tablet Disintegrating Refills: 0 Active Wellbutrin TABS Refills: 0 Active Dexmethylphenidate HCl ER 40 MG Oral Capsule Extended Release 24 Hour Refills: 0 Active Xyrem SOLN Refills: 0 Active Co Q 10 CAPS Refills: 0 Active clonazePAM 1 MG Oral Tablet Refills: 0 Active Hydroxychloroquine Sulfate 200 MG Oral Tablet Refills: 0 Active Ondansetron HCl - 4 MG Oral Tablet Refills: 0 Active Restasis EMUL Refills: 0 Active Urodol TABS Refills: 0 Active Allergies and Adverse Reactions Name Dates Details Cephalosporins (Allergy) Status: Active Codeine Derivatives (Allergy) Status: Ac tive Penicillins (Allergy) Status: Active tetracycline (Allergy) Status: Active Latex (Allergy) Status: Active Past Medical History Name Dates Details History of anxiety disorder (V11.8, Z86.59) Status: Resolved History of asthma (V12.69, Z87.09) Statu s: Resolved History of Benign hypertension with CKD (chronic kidney disease) stage III (403.10, I12.9) Status: Resolved History of depression (V11.8, Z86.59) St atus: Resolved History of Gastric reflux (530.81, K21.9) Status: Resolved History of High triglycerides (272.1, E78.1) Status: Resolved History of hyperlipidemia (V12.29, Z86.39) Status: Resolved History of hypertension (V12.59, Z86.79) Status: Resolved History of hyperthyroidism (V12.29, Z86.39) Status: Resolved History of kidney problems (V13.09, Z87.448) Status: Resolved History of pneumonia (V12.61, Z87.01) St atus: Resolved History of psychiatric treatment (V15.89, Z92.89) Status: Resolved History of rheumatoid arthritis (V13.4, Z87.39) Status: Resolved History of Skin cancer of face (V10.83, Z85.828) Status: Resolved Procedures Procedure Dates Details History of Total Abdominal Hysterectomy Completed History of Breast augmentation Completed History of Ostectomy of calcaneus for spur Completed History of Tonsillectomy Completed History of Adenoidectomy Completed History of Cholecystectomy Completed History of Shoulder Surgery Completed History of Complete Colonoscopy Complete d History of Colonic polypectomy Completed Immunization Name Dates Details Immunizations not documented Family History Name Dates Details Family history of diabetes mellitus (V18.0, Z83.3) Status: Active Name Dates Details Family history of Mesothelioma (199.1, C45.9) Status: Active Name Dates Details Family history of hypertension (V17.49, Z82.49) Status: Active Name Dates Details Family history of malignant melanoma (V16.8, Z80.8) Status: Active Family history of hypertension (V17.49, Z82.49) Status: Active Social History Name Dates Details - Status: Name Dates Details Never smoked tobacco (finding) Vital Signs Date Test Result Details 14-Apr-20208:32 Systolic blood pressure 138 mm[Hg] Status: Comments: Location: LUE; Position: Sitting Diastolic blood pressure 77 mm[Hg] Status: Comment s: Location: LUE; Position: Sitting Body height 67 in Status: Weight 200 lb Status: Body mass index (BMI) [Ratio] 31.32 kg/m2 Status: Body surface area Derived from formula 2.02 m2 S tatus: Body temperature 97.8 f Status: Comments: Me thod: Temporal Heart Rate 70 /min Status: Results Date Description Value Details Results not documented Plan of Care Name Dates Details Planned Observations Planned Goals not documented Planned Encounters Appointment; KARIN HAYWARD M.D. On: 17-Apr-2020 1 5:40 Instructions Name Dates Details Instructions not documented Encounters Appointment; LUCAS MCKEON M.D. On: 09-Aug-2019 10:30 Encounter Diagnosis: Problem not documented Appointment; ELIOT ROPER M.D. On: 18-Aug-2019 15:40 Encounter Diagnosis: Problem not documented Appointment; ELIOT ROPER M.D. On: 15-Sep-2019 11:20 Encounter Diagnosis: Problem not documented Appointment; ELIOT ROPER M.D. On: 16-Sep-2019 9:50 Encounter Diagnosis: Problem not documented Appointment; KARIN HAYWARD M.D. On: 14-Apr-2020 8 :30 Encounter Diagnosis: Problem not documented
--- OUTSIDE RECORDS SUMMARY | 2020-04-30 18:56 | XMS REPORT | Continuity of Care Document ---
:1960 Author Organization [facility] t Address [address] [place] [address] Care Team Providers Name Role Phone Gio Garcia MD Primary Care Physician YESY Attending Clinician Unavailable Daniel Ceja MD Attending Clinician JACQUELIN Attending Clinician Unavailable Regino CASTRO Attending Clinician Unavailable MIKE Attending Clinician Unavailable Payers Payer Name Policy Type Policy Number Effective Date Expiration Date S ree [id number] xxxxxxxxxxxx 2015 [place] CHOICE 00:00:00 [facility] PPO/FEDERAL EMPL PPOxxxxxxxxxxx x1 2014-Pre sentPPO Problems Condition Condition Condition Status Onset Resolution Last Treating Co mments Source Name Details Category Date Date Treatment Clinician Date Palpitatio Palpitatio Disease Active [place] ns ns 9-18 Methodi 00:00: st 00 SOB SOB Disease Active [place] (shortness (shortness 4-07 Me thodi of breath) of breath) 00:00: st 00 Tachycardi Tachycardi Disease Active [place] a a 3-15 Methodi 00:00: st 00 Disorder Disorder Disease Active [place] of liver of liver 3-15 Method i 00:00: st 00 Internal Internal Disease Active [place] hemorrhoid hemorrhoid - Me thodi s s 00:00: st 00 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 Methodi 00:00: grade st 00 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 pyHPV+Und er the a=care of Dr Ceja Chronic Chronic Disease Active [place] kidney kidney 4-29 Methodi disease, disease, 00:00: st stage III stage III 00 (moderate) (moderate) 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 03-08 Methodi 00:00: st 00 Major Major Disease Active Overview: [place] depressive depressive 03-08 Depressio Methodi disorder, disorder, 00:00: n for st recurrent recurrent 00 most of episode, episode, her life, moderate moderate initially diagnosed in 1988rechector ellison in 2008 2 prior suicide attempts (1984 and 2008)Dr Sherine Umaña therapist Dr Corrina Brown LILIA on LILIA on Disease Active [place] CPAP CPAP 03-08 Methodi 00:00: st 00 Hypersomno Hypersomno Disease Active [place] lence lence 03-08 Methodi 00:00: st 00 Bronchospa Bronchospa Disease Active Overview : [place] sm sm 03-08 About 6 Methodi 00:00: months st 00 ago when she has an infection s bronchiti s; she was dx with "asthma" and was given spiriva and singulair , no pft's done. PTSD PTSD Disease Active [place] (post-trau (post-trau 03-08 Me thodi matic matic 00:00: st stress stress 00 disorder) disorder) HLD HLD Disease Active [place] (hyperlipi (hyperlipi 03-08 Me thodi demia) demia) 00:00: st 00 Hypertensi Hypertensi Disease Active [place] on on 03-02 Methodi 00:00: st 00 Hypothyroi Hypothyroi Disease Active [place] dism dism 03-02 Methodi 00:00: st 00 LOW BACK Condition Active 2014-07-22 M emoria PAIN 07-22 08:35:31 l LOW BACK 00:00: Jairon n PAIN 00 Active 07/22/2014 Condition 4 [facility] LUMBAR Condition Active 2014-07-22 Mem oria RADICULOPA 07-22 08:35:31 l THY LUMBAR 00:00: Demarcus RADICULOPA 00 THY Active 07/22/2014 Condition 4 [facility] LUMBAR HNP Condition Active 2014-07-22 Memoria 07-22 08:35:31 l LUMBAR 00:00: Demarcus HNP 00 Active 07/22/2014 Condition 4 [facility] History of History of Problem Resolve Univers depression depression d it y of [place] [facility] ans History of History of Problem Resolve Univers asthma asthma d ity of [place] [facility] ans History of History of Problem Resolve Univers Benign Benign d ity of hypertensi hypertensi [place] with on with Physici CKD CKD ans (chronic (chronic kidney kidney disease) disease) stage III stage III History of History of Problem Resolve Univers Gastric Gastric d ity of reflux reflux [place] [facility] ans History of History of Problem Resolve Univers High High d ity of triglyceri triglyceri [place] rebekah rebekah Physici ans History of History of Problem Resolve Univers hyperthyro hyperthyro d it y of idism idism [place] [facility] ans History of History of Problem Resolve Univers hypertensi hypertensi d it y of on on [place] [facility] ans History of History of Problem Resolve Univers kidney kidney d ity of problems problems [place] [facility] History of History of Problem Resolve Univers pneumonia pneumonia d ity of [place] [facility] ans History of History of Problem Resolve Univers psychiatri psychiatri d it y of c c [place] treatment treatment Phys ici ans History of History of Problem Resolve Univers rheumatoid rheumatoid d [place] y of arthritis arthritis [place] Physici ans History of History of Problem Resolve Univers Skin 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 [place] face face Physici ans Visit for Visit for Problem Active Uni vers screening screening it[place] of mammogram mammogram [place] Right Right Problem Active Univers lower lower ity of quadrant quadrant [place] abdominal abdominal Phys ici tenderness tenderness an s Vaginal Vaginal Problem Active Univers discharge discharge ity of [place] Phys[facility] ans Breast Breast Problem Active Univers mass mass ity of [place] [facility] ans Incontinen Incontinen Problem Active U nivers ce in ce in ity of female female [place] [facility] ans Mixed Mixed Problem Active Univers stress and stress and it y of urge urge [place] urinary urinary Physici incontinen incontinen an s ce ce Urinary Urinary Problem Active Univers frequency frequency ity of [place] [facility] ans Urinary Urinary Problem Active Univers urgency urgency ity of [place] [facility] ans Vaginal Vaginal Problem Active Univers atrophy atrophy ity of [place] [facility] ans Breast Breast Problem Active Univers pain in pain in ity of female female [place] [facility] ans GERD GERD Disease Active [place] (gastroeso (gastroeso Me thodi phageal phageal st reflux reflux disease) disease) Allergies, Adverse Reactions, Alerts Allergy Allergy Status Severity Reaction(s) Onset Inactive Treating Comm ents Source Name Type Date Date Clinician Latex Propensi Active blisters [place] ty to 315 Methodi adverse 00:00: st reaction 00 s to drug Eszopicl Propensi Active Metallic [place] one ty to 01-22 taste in Methodi adverse 00:00: mouth, st reaction 00 tachycard s to ia drug Cephalos Propensi Active Anaphylaxis Most [place] porins ty to 03-02 likely Methodi adverse 00:00: Keflex st reaction 00 500mg per s to patient. drug Facial rash, hives, admitted to ICU Codeine Propensi Active Itching [place] ty to 03-02 Methodi adverse 00:00: st reaction 00 s to drug Penicill Propensi Active Rash [place] ins ty to 03-02 Methodi adverse 00:00: st reaction 00 s to drug Tetracyc Propensi Active Anaphylaxis [place] line ty to 03-02 Methodi adverse 00:00: st reaction 00 s to drug CODEINE CODEINE Active Memoria 9-12 l 00:00: Demarcus 00 Cephalos Allergy Active Univers porins to drug ity of (finding [place] ) Physici ans Codeine Allergy Active Univers Derivati to drug ity of ves (finding [place] ) Physici ans Penicill Allergy Active Univers ins to drug ity of (finding [place] ) Physici ans tetracyc Allergy Active Univers line to drug ity of (finding [place] ) Physici ans Latex Allergy Active Univers to ity of substanc [place] e Physici (finding ans ) Family History Family Member Diagnosis Comments Start Date Stop Date Source Mother Family history of Univers ity of diabetes mellitus [place] P hysicians Father Family history of Univers ity of Mesothelioma [place] Physic ians Brother Family history of Univers ity of malignant melanoma [place] [facility] Brother Family history of Univers ity of hypertension [place] Physic ians Sister Family history of Univers ity of hypertension [place] Physic ians Natural brother Drug abuse [place] M ethodist Natural father Cancer [place] Me thodist Maternal Diabetes [place] Method ist grandfather Natural mother Depression [place] Me thodist Paternal COPD [place] Method ist grandfather Paternal Hypertension [place] Meth odist grandmother Social History Social Habit Start Date Stop Date Quantity Comments Source Sex Assigned At [place] M ethodist Exposure to Yes [place] Metho dist SARS-CoV-2 (event) Alcohol intake 2019-09-29 2019-09-29 Current [place] Me thodist 00:00:00 00:00:00 non-drinker of alcohol (finding) Smoking Status Start Date Stop Date Source Never smoker [place] Methodis t Medications Ordered Filled Start Stop Current Ordering Indication Dosage Frequency Signature Comments Components Source Medication Medication Date Date Medication? Clinician (SIG) Name Name Nystatin-Tr Nystatin-Tr Yes SUBHRATHA APPLY [facility] iainolone 605 YESY SPARINGLY ity of 887469-7.1 [id number] 00:00: M.D. TO [place] UNIT/GM-% UNIT/GM-% 00 AFFECTED P hysici External External AREA(S) ans Cream Cream TWICE DAILY x 7 DAYS zolpidem Yes 10mg QD Take 10 mg Ranjana ston (AMBIEN) 10 5-21 by mouth Meth анна mg tablet 10:04: nightly as st 43 needed for sleep. zolpidem 10 mg tablet tiotropium Yes 1{capsu Q24H Place 1 [place] (SPIRIVA) 5-21 le} capsule Methodi 18 mcg per 10:04: into st inhalation 43 inhaler capsule and inhale daily as needed. montelukast Yes 10mg QD Take 10 mg [place] (SINGULAIR) 5-21 by mouth Meth анна 10 mg 10:04: every st tablet 43 evening. ARIPiprazol 2019 Yes 5mg QD Take 5 mg [place] e (ABILIFY) 5-21 by mouth Meth анна 5 MG tablet 10:04: daily. st 43 clonAZEPAM 2018-0 Yes 1mg Q.5D Take 1 mg [place] (KlonoPIN) 5-21 by mouth 2 Met hodi 1 MG tablet 10:04: (two) st 43 times a day as needed for anxiety. dexmethylph 2019- Yes 40mg QD Take 40 mg [place] enidate XR 5-21 by mouth Metho di (FOCALIN 10:04: every st XR) 40 mg 43 morning. 24 hr capsule DULoxetine 2019-0 Yes 60mg QD Take 60 mg [place] (CYMBALTA) 5-21 by mouth Metho di 60 MG 10:04: daily. st capsule 43 hydroxychlo 2019-0 Yes 200mg Q.5D Take 200 [place] roquine 5-21 mg by Methodi (PLAQUENIL) 10:04: mouth 2 st 200 mg 43 (two) tablet times a day. omeprazole 2019-0 Yes 40mg QD Take 40 mg [place] (PriLOSEC) 5-21 by mouth Metho di 40 MG 10:04: daily. st capsule 43 SODIUM 2019-0 Yes Take by [place] OXYBATE 5-21 mouth. Methodi (XYREM 10:04: st ORAL) 43 magnesium 2019-0 Yes 100mg QD Take 100 Ranjana ston sulfate 100 5-21 mg by Methodi mg capsule 10:04: mouth st 43 daily. potassium 2019-0 Yes 10meq Q.5D Take 10 [place] chloride 5-21 mEq by Methodi (KLOR-CON) 10:04: mouth 2 st 10 MEQ CR 43 (two) tablet times a day. furosemide 2019-0 Yes 20mg Q.5D Take 20 mg [place] (LASIX) 20 5-21 by mouth 2 Met hodi mg tablet 10:04: (two) st 43 times a day. levoFLOXaci 2019-0 Yes 750mg QD Take 750 [place] n 5-21 mg by Methodi (LEVAQUIN) 10:04: mouth st 750 MG 43 daily. tablet ondansetron 2019-0 Yes 4mg Q8H Take 4 mg [place] ODT 5-21 by mouth Methodi (ZOFRAN-ODT 10:04: every 8 st ) 4 MG 43 (eight) disintegrat hours as ing tablet needed for nausea or vomiting. dexmethylph 2017-0 Yes TAKE 1 [place] enidate XR 8-27 CAPSULE BY Met josefi (FOCALIN 00:00: MOUTH st XR) 20 MG 00 EVERY 24 hr AFTERNOON capsule valsartan-h 2018-0 Yes 1{tbl} QD Take 1 [place] ydrochlorot 6-28 tablet by Met jose fi hiazide 00:00: mouth st (DIOVAN-HCT 00 daily. ) 80-12.5 mg per tablet CRESTOR 5 2018-0 Yes 5mg QD Take 5 mg Ranjana ston mg tablet 6-28 by mouth Method i 00:00: daily. st 00 levothyroxi Yes 50ug QD Take 50 Ranjana ston ne 6-28 mcg by Methodi (SYNTHROID, 00:00: mouth st LEVOXYL) 50 00 daily. mcg tablet DULoxetine Yes 90mg QD Take 90 mg [place] (CYMBALTA) 6-28 by mouth Metho di 30 MG 00:00: daily. st capsule [address] 1 [place] MULTIDOSE 6- DROP IN Methodi 0.05 % 00:00: EACH EYE st drops 00 TWICE DAILY buPROPion Yes TAKE 1 [place] XL 6-28 TABLET BY Methodi (WELLBUTRIN 00:00: MOUTH EACH st XL) 150 MG 00 MORNING. 24 hr tablet BYSTOLIC 10 Yes 5mg QD 5 mg [place] mg tablet -02 daily. Pt Metho di 00:00: was st 00 prescribed 10 mg but when pressure or heart rate is low pt takes 5 mg prazosin Yes 1mg 1 mg. 3x [place] (MINIPRESS) 5-02 nightly Metho di 1 MG 00:00: st capsule 00 ursodiol Yes 300mg Q.5D Take 300 [place] (ACTIGALL) 4-13 mg by Methodi 300 mg 00:00: mouth 2 st capsule 00 (two) times a day. MOBIC 15 MG 2013-0 Yes 1 tab po Me moria TABS 9-12 qd l 00:00: Demarcus 00 LIDODERM 5 Yes apply to Mem oria % PTCH 9-12 affected l 00:00: area 12h Canones 00 on 12h off per 24h prn pain COMPOUND 2013-0 Yes apply 2-3 Reji zia PAIN CREAM 9-12 pumps to l 00:00: the 00 affected area 3-4 times daily. Prazosin Prazosin Yes Univers HCl - 1 MG HCl - 1 MG ity of Oral Oral [place] Capsule Capsule Physici ans Montelukast Montelukast Yes U nivers Sodium 10 Sodium 10 ity o f MG Oral MG Oral [place] Tablet Tablet Physici ans DULoxetine DULoxetine Yes Uni vers HCl - 60 MG HCl - 60 MG i ty of Oral Oral [place] Capsule Capsule Physici Delayed Delayed ans Release Release Particles Particles ARIPiprazol ARIPiprazol Yes U nivers e 10 MG e 10 MG ity of Oral Tablet Oral Tablet [place] Disintegrat Disintegrat P hysici ing ing ans Wellbutrin Wellbutrin Yes Uni vers TABS TABS ity of [place] Physici ans Xyrem SOLN Xyrem SOLN Yes Uni vers ity of [place] Physici ans Co Q 10 Co Q 10 Yes Univers CAPS CAPS ity of [place] ans Restasis Restasis Yes Univers EMUL EMUL ity of [place] [facility] ans Crestor 5 Crestor 5 Yes Unive rs MG Oral MG Oral ity of Tablet Tablet [place] [facility] ans Bystolic 10 Bystolic 10 Yes U nivers MG Oral MG Oral ity of Tablet Tablet [place] Physici ans Levothyroxi Levothyroxi Yes U nivers ne Sodium ne Sodium ity o f 50 MCG Oral 50 MCG Oral [place] Tablet Tablet Physici ans Ambien 10 Ambien 10 Yes Unive rs MG Oral MG Oral ity of Tablet Tablet [place] Physici ans Dexmethylph Dexmethylph Yes U nivers enidate HCl enidate HCl i ty of ER 40 MG ER 40 MG [place] Oral Oral Physici Capsule Capsule ans Extended Extended Release 24 Release 24 Hour Hour clonazePAM clonazePAM Yes Uni vers 1 MG Oral 1 MG Oral ity o f Tablet Tablet [place] Physici ans Hydroxychlo Hydroxychlo Yes U nivers roquine roquine ity of Sulfate 200 Sulfate 200 [place] MG Oral MG Oral Physici Tablet Tablet ans Ondansetron Ondansetron Yes U nivers HCl - 4 MG HCl - 4 MG ity of Oral Tablet Oral Tablet [place] Physici ans Urodol TABS Urodol TABS Yes U nivers ity of [place] Physici ans Vital Signs Vital Name Observation Time Observation Value Comments Source Systolic blood 2020-04-14 138 mm[Hg] Location: [facility] 08:32:00 Position: [place] Physician s Sitting Diastolic blood 2020-04-14 77 mm[Hg] Location: [facility] 08:32:00 Position: [place] Physician s Sitting Body height 2020-04-14 67 [in_us] [facility] 08:32:00 [place] Phys[place] s Weight 2020-04-14 200 [lb_av] [facility] 08:32:00 [place] Physician s Body mass index 2020-04-14 31.32 kg/m2 University o f (BMI) [Ratio] 08:32:00 [place] Physicia ns Body temperature 2020-04-14 97.8 [degF] Method: [facility] 08:32:00 Temporal [place] Physician s Heart Rate 2020-04-14 70 /min [facility] 08:32:00 [place] Phys[place] s Systolic blood 2019-09-29 147 mm[Hg] [place] pressure 08:10:00 [facility] Diastolic blood 2019-09-29 74 mm[Hg] [place] pressure 08:10:00 [facility] Heart rate 2019-09-29 68 /min [place] 08:10:00 [facility] Body temperature 2019-09-29 36.33 Kaylynn [place] 08:10:00 [facility] BP Systolic 2019-08-18 136 mm[Hg] Location: [facility] 15:52:00 Position: [place] Physician s Sitting BP Diastolic 2019-08-18 80 mm[Hg] Location: [facility] 15:52:00 Position: [place] Physician s Sitting Height 2019-08-18 67 [in_us] [facility] 15:52:00 [place] Physician s Weight 2019-08-18 216.375 [lb_av] University o 15:52:00 [place] Phys[facility] s Body Mass Index 2019-08-18 33.89 kg/m2 University o f Calculated 15:52:00 [place] Phys[place] s Temperature 2019-08-18 98.7 [degF] University 15:52:00 [place] Physician s BP Systolic 2019-08-09 119 mm[Hg] Location: [facility] 10:10:00 Position: [place] Physician s Sitting BP Diastolic 2019-08-09 74 mm[Hg] Location: [facility] 10:10:00 Position: [place] Physician s Sitting Height 2019-08-09 67 [in_us] University 10:10:00 [place] Phys[facility] s Weight 2019-08-09 214.375 [lb_av] University o f 10:10:00 [place] Phys[facility] s Body Mass Index 2019-08-09 33.58 kg/m2 University o f Calculated 10:10:00 [place] Phys[facility] s Weight 2014-07-22 Radha Casean n 13:35:31 Height 2014-07-22 [facility] Jairon n 13:35:31 Temperature Oral 2014-07-22 96.4 F [facility] Aidan moseley (F) 13:35:31 Respitory Rate 2014-07-22 [facility] Evie grady 13:35:31 Heart Rate 2014-07-22 [facility] Jairon n 13:35:31 Systolic (mm Hg) 2014-07-22 [facility] He rmann 13:35:31 Diastolic (mm Hg) 2014-07-22 [facility] H ermann 13:35:31 Procedures Procedure Date / Time Performing Clinician Source Performed [QL] TSH, 3RD GENERATION 2020-04-14 00:00:00 [facility] Phys[facility] [QL] PROLACTIN 2020-04-14 00:00:00 [facility] o f [place] [facility] MA Digital Mammo DX Elbert w 2020-04-14 00:00:00 [facility] ed [id number] [place] [id number] 2019-08-23 00:00:[address] [facility] Physicians [QLH] CULTURE, URINE, 2019-08-18 00:00:00 [facility] ROUTINE Physicians MA Digital Mammo DX [place] 2019-08-13 00:00:00 Univ [facility] [id number] Physicians US Breast Bilat [id number] 2019-08-13 00:00:00 [facility] MA Digital Mammo Screening 2019-08-09 00:00:00 [facility] [place] [id number] Physicians US Pelvis with Pelvis 2019-08-09 00:00:00 [facility] Transvaginal [id number] Physicians . [facility] - Affirm VPIII 2019-08-09 00:00:00 [facility] (BV Panel) Physicians . [facility] - GC/Chlamydia 2019-08-09 00:00:00 [facility] Physicians History of Total Abdominal Unive [facility] Hysterectomy Physicians History of Breast [facility] augmentation Physicians [facility] of [facility] for spur Physicians History of Tonsillectomy Univers [facility] Physicians History of Adenoidectomy [facility] Physicians History of Cholecystectomy Unive [facility] Physicians History of Shoulder University o f [place] Surgery Physicians History of Complete University o [facility] Colonoscopy Physicians History of Colonic [facility] polypectomy Physicians Plan of Care Planned Activity Planned Date Details Comments Source Future Scheduled 2022-03-30 Screening for [facility] thodist Test 00:00:00 malignant neoplasm of cervix (procedure) [code = 253046872] Future Scheduled 2020-06-10 INFLUENZA VACCINE [place] [facility] Test 00:00:00 [code = INFLUENZA VACCINE] Future Scheduled 2015-11-10 BREAST CANCER [place] Me thodist Test 00:00:00 SCREENING [code = BREAST CANCER SCREENING] Future Scheduled 2010 COLONOSCOPY SCREENING Rex murillo [facility] Test 00:00:00 [code = COLONOSCOPY SCREENING] Future Scheduled 2010 SHINGLES VACCINES [place] [facility] Test 00:00:00 (#1) [code = SHINGLES VACCINES (#1)] Encounters Start End Encounter Admission Attending Care Care Encounter Source Date/Time Date/Time Type Type Clinicians Facility Department ID 2020-04-14 2020-04-14 Appointmen FERNANDO HAYWARD [facility] [id number] Univers 08:30:00 08:30:00 t; Sonia FRAZIER M.D. [place] SUBHRATHA, Physi ci M.D. ans 2019-09-16 2019-09-16 Appointmen FERNANDO ROPER [id number] Univers 09:50:00 09:50:00 t; ELIOT ROPER [facility] M.D. Physici ans 2019-09-15 2019-09-15 Appointmen FERNANDO ROPER [facility] [id number] Univers 11:20:00 11:20:00 t; ELIOT ROPER ity of [place], M.D. [place] M.D. Physici ans 2019-08-18 2019-08-18 Appointmen FERNANDO ROPER [facility] [id number] Univers 15:40:00 15:40:00 t; ELIOT ROPER [facility] - ity of [place], M.D. [place] M.D. Physici ans 2019-08-09 2019-08-09 Appointmen FERNANDO MCKEON [facility] [id number] Univers 10:30:00 10:30:00 t; LUCAS MCKEON M.D. Center Kristi Padilla M.D. Physici ans Results Test Description Test Time Test Comments Results Result Sourc e Comments US Pelvis with 2019-08-10 STUDY: Pelvis w Unive rsity of Pelvis 4 Pelvis Transvaginal [place] Transvaginal 09:51:00 USCOMPARISON: Physician s [id number] None.HISTORY: - Right lower quadrant abdominal tenderness.FINDINGS: Transvaginal and transabdominal ultrasound images of the pelvis were obtained.Uterus: Has been removed.Ovaries: Have been removed.Pelvic fluid: None.IMPRESSION:Stat us post hysterectomy and bilateral salpingooophorectomy .Otherwise no significant abnormality.--Read by: Dixie Lewis MDDictated Date/time: 08/23/19 10:39Electronically Signed by: Dixie Lewis MD 08/23/1910:40FINAL REPORT US Breast [id number] 2019-08-10 COMPLETE ULTRASOUND [place] [id number] OF LEFT BREAST AND [place] 08:22:00 AXILLA: Physicians 08/23/2019CLINICAL: /N63.0 Unspecified Lump In Unspecified Breast. COMPARISON:Compariso n is made to exam dated: 08/23/2019 mammogram - [facility]. TECHNIQUE: Color flow and real-time ultrasound of the left breast fourquadrants and axilla regions were performed on the areas of interest. FINDINGS:No sonographic features of malignancy are identified in the area of initialpalpable concern in the upper outer quadrant left breast, which the patientstated was the area (as best she could remember) of the dimpling detected byher physician, nor remainder of the left breast.No lymphadenopathy seen. IMPRESSION: BENIGNRECOMMENDATION :Clinical follow-up for the area of palpable concern is recommended.Continue d breast self-examination is encouraged.There is no sonographic evidence of malignancy. A 1 year screening mammogram is recommended.( 020) These results were personally discussed with the patient. Professional services are provided by the [facility] [place] [facility] Anderson[facility]ision of Diagnostic Imaging.Bashir Esparza M.D. levi/:08/23/2019 09:14:30 Maintenance Manager(s): Alyx Almaraz RDMS, [facility] Imagingletter sent: BI-RADS 1/2 Ultrasound BI-RADS: 2 Benign--Read by: Bashir Esparza MDDictated Date/time: 08/23/19 09:14Electronically Signed by: Bashir Esparza MD 08/23/1909:14FINAL REPORT MA Digital Mammo 2019-08- BILATERAL DIGITAL U niversity of DX [place] w ed 4 DIAGNOSTIC MAMMOGRAM T cherie [id number] 07:40:00 3D/2D WITH CAD: Physician s 08/23/2019CLINICAL: N63.0 Unspecified Lump In Unspecified Breast/N63.0. Current study was evaluated with a Computer Aided Detection (CAD) system. COMPARISON:No previous mammograms available for comparison at time of imageinterpretation. These have been requested. TECHNIQUE: Digital Breast Tomosynthesis was performed and utilized forInterpretation. Current study was also evaluated with a Computer AidedDetection (CAD) system.FINDINGS:Ther e are scattered fibroglandular densities in both breasts. Bilateral prepectoral saline implants are present. The area of palpableconcern was dimpling in the left breast detected by the patient's caregiver,which the patient could not specifically point to at the technologist at thetime of the mammogram. No significant masses, calcifications, or other findings are seen in eitherbreast. IMPRESSION: INCOMPLETE: NEEDS ADDITIONAL IMAGING EVALUATIONRECOMMENDA TION:There is no abnormality seen in the left breast to correspond with the paincentral to the nipple, however, clinical correlation, clinical followup, andultrasound are recommended. The area of palpable concern was dimpling in the left breast detected by thepatient's caregiver, which the patient could not specifically point to thetechnologist at the time of the mammogram. There is no gross abnormality seenin the left breast to correspond with the palpable abnormality, however,clinical correlation, clinical followup, and ultrasound are recommended. Professional services are provided by the [facility] Son KingstonDivision of Diagnostic Imaging.Bashir Esparza M.D. levi/:08/23/2019 09:13:09 Maintenance Manager(s): Rad[facility] [facility] Imaging[facility] BI-RADS: 0 Indeterminate--Read by: Bashir Esparzaictated Date/time: 08/23/19 09:13Electronically Signed by: Bashir Esparza MD 08/23/1909:13FINAL REPORT [[facility]] CULTURE, URINE, ROUTINE 2019-08-18 16:33:01 Test Item Value Reference Range Interpretation Comme nts FINAL REPORT (test code = FINAL REPORT) No Growth [facility][O] Urine Dipstick (In Office)2019-08-18 16:32:00 Test Item Value Reference Range Interpretation Comments Glucose (test code = Glucose) neg N LEUKOCYTES (test code = LEUKOCYTES) neg N NITRITE; Normal (test code = 04603-5) neg N UROBILINOGEN; Normal (test code = 0.2 N 75866-7) PROTEIN; Normal (test code = 63960-2) neg N pH (test code = pH) 7.5 N URINE BLOOD; Normal (test code = neg N 41167-1) SPECIFIC GRAVITY; Normal (test code = 1.020 N 2965-2) KETONES; Normal (test code = 47058-6) neg N BILIRUBIN; Normal (test code = 56818-8) neg N [facility]. [facility] - Affirm VPIII (BV Panel)2019-08-09 00:00:00 Test Item Value Reference Range Interpretation Comments Affirm VPIII (BV Panel) REPORT See Comment (test code = Affirm VPIII (BV Panel) REPORT) [facility]. [facility] - GC/[id number] 00:00:00 Test Item Value Reference Range Interpretation Comments GC REPORT (test code = GC REPORT) Negative Chlamydia REPORT (test code = Negative 31061-0) [facility]
--- OUTSIDE RECORDS SUMMARY | 2020-04-30 18:57 | XMS REPORT | Summary of Care ---
[...] 0 Active Urodol TABS Refills: 0 Active Nystatin-Triamcinolone 338278-0.1 UNIT/GM-% External Cream APPLY SPARINGLY TO AFFECTED AREA(S) TWICE DAILY x 7 DAYS Quantity: 30 Refills: 0 YESY M.D., SUBHRATHA Start : 14-Apr-2020 Active Allergies and Adverse Reactions Name Dates [...] Z85.828) Status: Resolved Procedures Procedure Dates Details [QL] TSH, 3RD GENERATION W/REFLEX TO FT4 Date: 14-Apr-2020 [QL] PROLACTIN Date: 14-Apr-2020 MA Digital Mammo DX Elbert w ed G0204 Date: 14-Apr-2020 History of Total Abdominal Hysterectomy Completed History [...] KARIN HAYWARD M.D. On: 17-Apr-2020 1 5:40 Interventions Provided Labs/Procedures/Imaging[QL] PROLACTIN; To Be Done: 14 Apr 2020[QL] TSH, 3RD GENERATION W/REFLEX TO FT4; To Be Done: 14 Apr 2020MA Digital Mammo DX Elbert w ed G0204; To Be Done: 14 Apr 2020 Instructions Name Dates Details Instructions not documented [...]
--- OUTSIDE RECORDS SUMMARY | 2020-04-30 18:57 | XMS REPORT | Summary of Care ---
:1960 Author Name Artemio Singh Address Unavailable Unavailable , Care Team [...] Active Urodol TABS Refills: 0 Active Nystatin-Triamcinolone 787657-4.1 UNIT/GM-% External Cream APPLY SPARINGLY TO AFFECTED [...] ed G0204; To Be Done: 14 Apr 2020Discussion/[id number] F here for breast pain and discharge- dx mammo of R breast- TSH, PRL- Yeast infx of breast-- nystatin- triamcinolone cream rx- recommend avoiding diet supplements for a few days to see if this may be cause of pain- Tylenol, ice packs PRN- RTO PRN. Instructions Name Dates Details Instructions not documented [...]
--- OUTSIDE RECORDS SUMMARY | 2020-04-30 18:57 | XMS REPORT | Summary of Care ---
:1960 Author Name Artemio Singh Address Unavailable Unavailable , Care Team Providers Name Role Phone YESY Cline Unavailable Unavailable Artemio Singh Unavailable Unavailable MIKE SCHMIDT [place] Unavailable Unavailable [...] Active Urodol TABS Refills: 0 Active Nystatin-Triamcinolone 253456-2.1 UNIT/GM-% External Cream APPLY SPARINGLY TO AFFECTED [...] M.D. On: 17-Apr-2020 1 5:40 Interventions Provided Medication ChangesNystatin-Triamcinolone 672305-8.1 UNIT/GM-% External Cream - Start Instructions Name Dates Details Instructions not documented Encounters Appointment; LUCAS MCKEON M.D. On: 09-Aug-2019 10:30 Encounter Diagnosis: Problem not documented Appointment; ELIOT ROPER M.D. On: 18-Aug-2019 15:40 Encounter Diagnosis: Problem not documented Appointment; ELIOT ROPER M.D. On: 15-Sep-2019 11:20 Encounter Diagnosis: Problem not documented Appointment; ELIOT ROPER M.D. On: 16-Sep-2019 9:50 Encounter Diagnosis: Problem not documented
[2020-04-30] MEDS ORDERED: METHYLPREDNISOLONE 125 MG INJ ONE (20:22)
[2020-04-30] MEDS ORDERED: ALBUTEROL INHALER 60 PUFF/8 GM IH ONE (20:22)
--- NOTE | 2020-04-30 20:55 | RAD REPORT ---
EXAM DESCRIPTION: Tracy Single View04/30/2020 7:57 pm CLINICAL HISTORY: Chest pain COMPARISON: 04/27/2020 FINDINGS: The left lung base is mildly hazy Right lung appears clear. The heart is normal size IMPRESSION: Left lung base is mildly hazy suspicious for a mild pneumonia
[2020-04-30 20:57] LABS: Absolute Lymphocytes (CBC) 1.6 K/uL (0.7-4.9); Basophils % 0.5 % (0-1.3); Hematocrit 37.2 % (36.0-45.0); Lymphocytes % 19.7 % (15.3-44.8); MPV 7.4 fL (7.6-11.3); RBC Red Blood Cell Count 3.94 M/uL (3.86-4.86)
[2020-04-30 21:04] LABS: Protime INR 0.94
[2020-04-30 21:18] LABS: ALT/SGPT 44 U/L (12-78); AST/SGOT 25 U/L (15-37); Albumin 3.6 g/dL (3.4-5.0); Alkaline Phosphatase 106 U/L (45-117); BUN Blood Urea Nitrogen 15 mg/dL (7-18); Bicarbonate 27 mmol/L (21-32); Bilirubin Direct 0.1 mg/dL (0-0.2); Bilirubin Total 0.3 mg/dL (0.2-1.0); Glucose Level 113 mg/dL (74-106); NT PRO-BNP 216 pg/mL (<125); Potassium 3.1 mmol/L (3.5-5.1); Protein, Total 6.7 g/dL (6.4-8.2); Sodium Level 140 mmol/L (136-145); Troponin (Emerg Dept Use Only) < 0.02 ng/mL (0.0-0.045)
[2020-04-30] MEDS ORDERED: levoFLOXacin 750 MG TAB ONE (22:47)
--- NOTE | 2020-04-30 23:07 | ER ---
Nurse's Notes [facility] Name: Lydia Hanson Age: 59 yrs Sex: Female : 1960 Arrival Date: 04/30/2020 Time: 19:06 Bed 20 Private MD: Diagnosis: Pneumonia, unspecified organism Presentation: 04/30 19:31 Chief complaint: Patient states: I have a positive COVID result, I have been in isolation and taking care of myself at home for 2-3 days now and then earlier today I started having chest pain, increasingly getting worse. Reports cough that has been making the pain worse. Coronavirus screen: Prior COVID test positive but no documentation provided at this time. Ebola Screen: Patient negative for fever greater than or equal to 101.5 degrees Fahrenheit, and additional compatible Ebola Virus Disease symptoms Patient denies exposure to infectious person. Patient denies travel to an Ebola-affected area in the 21 days before illness onset. No symptoms or risks identified at this time. Initial Sepsis Screen: Does the patient meet any 2 criteria? No. Patient's initial sepsis screen is negative. Does the patient have a suspected source of infection? Yes: Productive cough/pneumonia. Risk Assessment: Do you want to hurt yourself or someone else? Patient reports no desire to harm self or others. Onset of symptoms was April 30, 2020. Care prior to arrival: None. 19:31 Method Of Arrival: Ambulatory 19:31 Acuity: RIA 3 Triage Assessment: 21:30 General: Appears in no apparent distress. comfortable, well groomed, well developed, ch2 well nourished, Behavior is calm, cooperative, appropriate for age. 21:30 Pain: Complains of pain in left lateral anterior chest Pain currently is 5 out of 10 on ch2 a pain scale. Quality of pain is described as aching. EENT: No deficits noted. No signs and/or symptoms were reported regarding the EENT system. Denies pain blurred vision nasal congestion, difficulty swallowing. Neuro: No deficits noted. Level of Consciousness is awake, alert, obeys commands, Oriented to person, place, time, Fabrication Welder are equal bilaterally Moves all extremities. Full function Gait is steady, Speech is normal, Facial symmetry appears normal, Pupils are PERRLA. Cardiovascular: No deficits noted. Reports chest pain, Denies nausea, palpitations, syncope, vomiting, Rhythm is regular. Respiratory: No deficits noted. Reports cough that is non-productive, dry, persistent. GI: No deficits noted. No signs and/or symptoms were reported involving the gastrointestinal system. : No deficits noted. No signs and/or symptoms were reported regarding the genitourinary system. Derm: No deficits noted. No signs and/or symptoms reported regarding the dermatologic system. Skin is intact, is healthy with good turgor, Skin is pink, warm \T\ dry. normal. Musculoskeletal: No deficits noted. No signs and/or symptoms reported regarding the musculoskeletal system. Amputation of Circulation, motion, and sensation intact. Range of motion: intact in all extremities. Historical: - Allergies: 19:35 CEPHALOSPORINS; sg 19:35 Codeine; sg 19:35 Latex, Natural Rubber; sg 19:35 PENICILLINS; sg 19:35 TETRACYCLINES; sg - PMHx: 19:35 Depression; Hyperlipidemia; Hypertension; narcolepsy; Sleep Apnea; Thyroid problem; sg V-tach; - Immunization history:: Adult Immunizations up to date. - Social history:: Smoking status: Patient denies any tobacco usage or history of. Screenin:20 Abuse screen: Denies threats or abuse. Denies injuries from another. Nutritional ch2 screening: No deficits noted. Tuberculosis screening: No symptoms or risk factors identified. Fall Risk None identified. No fall in past 12 months (0 pts). No secondary diagnosis (0 pts). IV access (20 points). Ambulatory Aid- None/Bed Rest/Nurse Assist (0 pts). Gait- Normal/Bed Rest/Wheelchair (0 pts) Mental Status- Oriented to own ability (0 pts). Assessment: 20:30 General: Appears in no apparent distress. uncomfortable, ill, well groomed, well ch2 developed, well nourished, Behavior is calm, cooperative, appropriate for age, Reports feeling ill for fatigue for 1-2 days. Pain: Complains of pain in left lateral anterior chest Pain does not radiate. Quality of pain is described as aching, Pain began 1 day ago. Aggravated by cough. Neuro: No deficits noted. Level of Consciousness is awake, alert, obeys commands, Oriented to person, place, time, situation, Appropriate for age Fabrication Welder are equal bilaterally Moves all extremities. Full function Gait is steady, Speech is normal, Facial symmetry appears normal, Pupils are PERRLA, Denies blurred vision dizziness, difficulty swallowing, numbness headache. 20:30 Cardiovascular: No deficits noted. Reports chest pain, Denies lightheadedness, nausea, ch2 palpitations, syncope, vomiting, Capillary refill < 3 seconds in bilateral fingers Patient's skin is warm and dry. Rhythm is regular. Respiratory: Reports shortness of breath on exertion pain with cough Airway is patent Trachea midline Respiratory effort is even, unlabored, Respiratory pattern is regular, symmetrical, Breath sounds with wheezes bilaterally. GI: No deficits noted. No signs and/or symptoms were reported involving the gastrointestinal system. : No deficits noted. No signs and/or symptoms were reported regarding the genitourinary system. EENT: No deficits noted. No signs and/or symptoms were reported regarding the EENT system. Derm: No deficits noted. No signs and/or symptoms reported regarding the dermatologic system. Skin is intact, is healthy with good turgor, Skin is dry, Skin is pink, warm \T\ dry. normal. Musculoskeletal: No deficits noted. No signs and/or symptoms reported regarding the musculoskeletal system. Circulation, motion, and sensation intact. Range of motion: intact in all extremities. 21:30 Reassessment: Patient appears in no apparent distress at this time. No changes from ch2 previously documented assessment. Patient and/or family updated on plan of care and expected duration. Pain level reassessed. Patient is alert, oriented x 3, equal unlabored respirations, skin warm/dry/pink. Patient states feeling better. Patient states symptoms have improved. 21:30 Respiratory: Respiratory effort is even, unlabored, Respiratory pattern is regular, ch2 symmetrical. 22:30 Reassessment: Patient appears in no apparent distress at this time. No changes from ch2 previously documented assessment. Patient and/or family updated on plan of care and expected duration. Pain level reassessed. Patient is alert, oriented x 3, equal unlabored respirations, skin warm/dry/pink. 23:30 Reassessment: Patient appears in no apparent distress at this time. No changes from ch2 previously documented assessment. Patient and/or family updated on plan of care and expected duration. Pain level reassessed. Patient is alert, oriented x 3, equal unlabored respirations, skin warm/dry/pink. Patient states feeling better. Patient states symptoms have improved. 23:30 Cardiovascular: Denies chest pain, shortness of breath. ch2 Vital Signs: 19:31 BP 140 / 77; Pulse 89; Resp 20; Temp 98.9; Pulse Ox 97% on R/A; Pain 6/10; sg 20:58 BP 130 / 64; Pulse 62; Resp 18; Pulse Ox 99% on R/A; Pain 4/10; ch2 21:00 BP 117 / 64; Pulse 61; Resp 20; Pulse Ox 98% on R/A; Pain 3/10; ch2 21:30 BP 112 / 64; Pulse 61; Resp 20; Pulse Ox 98% on R/A; ch2 22:00 BP 106 / 61; Pulse 64; Resp 18; Pulse Ox 100% on R/A; Pain 0/10; ch2 22:30 BP 106 / 60; Pulse 67; Resp 18; Pulse Ox 98% on R/A; Pain 0/10; ch2 23:00 BP 131 / 77; Pulse 64; Resp 18; Pulse Ox 98% on R/A; Pain 0/10; ch2 23:30 BP 137 / 57; Pulse 67; Resp 18; Pulse Ox 99% on R/A; Pain 0/10; ch2 Vitals: 23:30 Cardiac Rhythm Assessment Regular. ch2 ED Course: 19:06 Patient arrived in ED. ss 19:17 Baljeet De La Rosa NP is PHCP. pm1 19:34 Triage completed. sg 19:35 Arm band placed on. sg 19:59 XRAY Chest (1 view) In Process Unspecified. EDMS 20:52 Inserted saline lock: 22 gauge in left hand, using aseptic technique. Blood collected. ll1 20:56 Patient placed on clinical counselor, on pulse oximetry, Patient notified of wait time. ch2 EKG completed in triage. Results shown to MD. 20:57 Accessed Missed attempt(s): 20 gauge in left forearm. ch2 20:57 Missed attempt(s): 22 gauge in right forearm. ch2 21:17 Cipriano Resendez MD is Attending Physician. pm1 21:30 Patient has correct armband on for positive identification. Bed in low position. Call [facility] light in reach. Side rails up X 1. 21:30 laboratory monitor on. Pulse ox on. NIBP on. Door closed. Noise minimized. Lights dimmed. ch2 Warm blanket given. 23:23 No provider procedures requiring assistance completed. ch2 05/01 00:20 IV discontinued, intact, bleeding controlled, No redness/swelling at site. Pressure ch2 dressing applied. 00:31 Patient maintains SpO2 saturation greater than 95% on room air. ch2 Administered Medications: 04/30 20:55 Drug: Albuterol HFA Inhaler 2 puffs Route: Inhalation; ch2 20:55 Drug: SOLU-Medrol 125 mg Route: IVP; Site: left hand; ch2 22:09 CANCELLED (Physician Discretion; Aron): LevaQUIN 750 mg 150 ml IVPB once over 90 mins pm1 23:14 Drug: LevaQUIN 750 mg Route: PO; ch2 05/01 00:34 Follow up: Response: No adverse reaction ch2 Outcome: 04/30 23:06 Discharge ordered by . pm1 05/01 00:19 Discharged to home ambulatory. ch2 Condition: improved Discharge instructions given to patient, Instructed on discharge instructions, follow up and referral plans. medication usage, Demonstrated understanding of instructions, follow-up care, medications, Prescriptions given X 2. 00:35 Patient left the ED. ch2 Signatures: Dispatcher [employer] EDMS Kevan Quiñones RN RN sg Corinne Alfred RN RN ss Baljeet De La Rosa, TREV MANAGER ENROLLMENT pm1 Kindra Domingo RN RN ch2 Anastasiia Lagos RN RN ll1
--- NOTE | 2020-04-30 23:07 | EDPHYS ---
Physician Documentation [facility] Name: Lydia Hanson Age: 59 yrs Sex: Female : 1960 Arrival Date: 04/30/2020 Time: 19:06 Bed 20 Private MD: ED Physician Cipriano Resendez HPI: 04/30 19:41 This 59 yrs old Female presents to ER via Ambulatory with complaints of Chest pm1 Pain - COVID-19 Positive. 19:41 The patient or guardian reports chest pain that is located primarily in the left pm1 lateral anterior chest. Onset: 6 day(s) ago. The pain does not radiate. Associated signs and symptoms: Pertinent positives: cough, shortness of breath, wheezing, diarrhea, Pertinent negatives: abdominal pain, vomiting. The chest pain is described as sharp. Duration: The patient or guardian reports a single episode. Modifying factors: The symptoms are alleviated by nothing. the symptoms are aggravated by cough, deep breath. The patient has been recently seen at the [facility] Emergency Department, for similar complaints labs were performed, X-rays were performed, diagnosed with acute viral bronchitis. Patient with positive covid19 test and patient has been in quarantine at home. Patient reports same symptoms as prior ER visit 3 days ago but reports onset of left lateral chest pain today. Historical: - Allergies: 19:35 CEPHALOSPORINS; sg 19:35 Codeine; sg 19:35 Latex, Natural Rubber; sg 19:35 PENICILLINS; sg 19:35 TETRACYCLINES; sg - PMHx: 19:35 Depression; Hyperlipidemia; Hypertension; narcolepsy; Sleep Apnea; Thyroid problem; sg V-tach; - Immunization history:: Adult Immunizations up to date. - Social history:: Smoking status: Patient denies any tobacco usage or history of. ROS: 19:41 Constitutional: Negative for fever, chills, and weight loss, Eyes: Negative for injury, pm1 pain, redness, and discharge. 19:41 Neck: Negative for injury, pain, and swelling. 19:41 Back: Negative for injury and pain, : Negative for injury, bleeding, discharge, and swelling, MS/Extremity: Negative for injury and deformity, Skin: Negative for injury, rash, and discoloration, Neuro: Negative for headache, weakness, numbness, tingling, and seizure. 19:41 ENT: Positive for sore throat, Negative for ear pain, difficulty swallowing, difficulty handling secretions, hoarseness. 19:41 Cardiovascular: Positive for chest pain, Negative for edema, palpitations. 19:41 Respiratory: Positive for cough, shortness of breath, wheezing. 19:41 Abdomen/GI: Positive for diarrhea, Negative for abdominal pain, nausea and vomiting, constipation. Exam: 19:41 Constitutional: This is a well developed, well nourished patient who is awake, alert, pm1 and in no acute distress. Head/Face: Normocephalic, atraumatic. Eyes: Pupils equal round and reactive to light, extra-ocular motions intact. Lids and lashes normal. Conjunctiva and sclera are non-icteric and not injected. Cornea within normal limits. Periorbital areas with no swelling, redness, or edema. ENT: Nares patent. No nasal discharge, no septal abnormalities noted. Tympanic membranes are normal and external auditory canals are clear. Oropharynx with no redness, swelling, or masses, exudates, or evidence of obstruction, uvula midline. Mucous membranes moist. Neck: Trachea midline, no thyromegaly or masses palpated, and no cervical lymphadenopathy. Supple, full range of motion without nuchal rigidity, or vertebral point tenderness. No Meningismus. 19:41 Abdomen/GI: Soft, non-tender. No guarding or rebound. No evidence of tenderness throughout. Back: No spinal tenderness. No costovertebral tenderness. Full range of motion. Skin: Warm, dry with normal turgor. Normal color with no rashes, no lesions, and no evidence of cellulitis. MS/ Extremity: Pulses equal, no cyanosis. Neurovascular intact. Full, normal range of motion. 19:41 Chest/axilla: Inspection: normal, Palpation: crepitus, is not appreciated, tenderness, of the left lateral anterior chest, focal point mid axillary to the left of breast, that totally reproduces the patient's complaints. 19:41 Cardiovascular: Exam negative for acute changes, Rate: normal, Rhythm: regular, Pulses: no pulse deficits are appreciated. 19:41 Respiratory: Exam negative for acute changes, respiratory distress, shortness of breath. 19:41 Neuro: Exam negative for acute changes, Orientation: is normal, Mentation: is normal, Motor: is normal, moves all fours. Vital Signs: 19:31 BP 140 / 77; Pulse 89; Resp 20; Temp 98.9; Pulse Ox 97% on R/A; Pain 6/10; sg 20:58 BP 130 / 64; Pulse 62; Resp 18; Pulse Ox 99% on R/A; Pain 4/10; ch2 21:00 BP 117 / 64; Pulse 61; Resp 20; Pulse Ox 98% on R/A; Pain 3/10; ch2 21:30 BP 112 / 64; Pulse 61; Resp 20; Pulse Ox 98% on R/A; ch2 22:00 BP 106 / 61; Pulse 64; Resp 18; Pulse Ox 100% on R/A; Pain 0/10; ch2 22:30 BP 106 / 60; Pulse 67; Resp 18; Pulse Ox 98% on R/A; Pain 0/10; ch2 23:00 BP 131 / 77; Pulse 64; Resp 18; Pulse Ox 98% on R/A; Pain 0/10; ch2 23:30 BP 137 / 57; Pulse 67; Resp 18; Pulse Ox 99% on R/A; Pain 0/10; ch2 MDM: 19:17 Patient medically screened. pm1 21:18 Data reviewed: vital signs. Data interpreted: Pulse oximetry: on room air is 99 %. pm1 Interpretation: normal. 22:10 Special discussion: I discussed with the patient/guardian in detail that at this point pm1 there is no indication for admission to the hospital. It is understood, however, that if the symptoms persist or worsen the patient needs to return immediately for re-evaluation. 22:10 Counseling: I had a detailed discussion with the patient and/or guardian regarding: the pm1 historical points, exam findings, and any diagnostic results supporting the discharge/admit diagnosis, lab results, radiology results, the need for outpatient follow up, to return to the emergency department if symptoms worsen or persist or if there are any questions or concerns that arise at home. 22:15 ED course: Patient reports improvement in shortness of breath and pain with steroids. pm1 She also reported wheezing, therefore will prescribe the patient abx and steroids. No evidence on use of steroids for covid, however patient with wheezing and showed improvement in ER today and in prior visit. PSI port score = 49, class II, recommended outpatient treatment. 22:15 ED course: Patient without any supplemental oxygen requirements. pm04/30 19:41 Order name: Basic Metabolic Panel; Complete Time: 21:30 pm04/30 19:41 Order name: CBC with Diff; Complete Time: 21:10 pm04/30 19:41 Order name: LFT's; Complete Time: 21:30 pm04/30 19:41 Order name: Magnesium; Complete Time: 21:30 pm04/30 19:41 Order name: NT PRO-BNP; Complete Time: 21:30 pm04/30 19:41 Order name: PT-INR; Complete Time: 21:10 pm04/30 19:41 Order name: Troponin (emerg Dept Use Only); Complete Time: 21:30 pm04/30 19:41 Order name: XRAY Chest (1 view); Complete Time: 21:10 pm04/30 19:41 Order name: EKG; Complete Time: 19:42 pm04/30 21:32 Order name: Blood Culture Adult (2) pm04/30 19:41 Order name: Cardiac monitoring; Complete Time: 20:56 pm04/30 19:41 Order name: EKG - Nurse/Tech; Complete Time: 20:56 pm04/30 19:41 Order name: IV Saline Lock; Complete Time: 20:56 pm04/30 19:41 Order name: Labs collected and sent; Complete Time: 20:56 pm04/30 19:41 Order name: O2 Per Protocol pm04/30 19:41 Order name: O2 Sat Monitoring; Complete Time: 20:56 pm1 Administered Medications: 20:55 Drug: Albuterol HFA Inhaler 2 puffs Route: Inhalation; ch2 20:55 Drug: SOLU-Medrol 125 mg Route: IVP; Site: left hand; ch2 22:09 CANCELLED (Physician Discretion; Sharp): LevaQUIN 750 mg 150 ml IVPB once over 90 mins pm1 23:14 Drug: LevaQUIN 750 mg Route: PO; ch2 05/01 00:34 Follow up: Response: No adverse reaction ch2 Disposition: 07:38 Co-signature as Attending Physician, Cipriano Resendez MD I agree with the assessment and danilo plan of care. Disposition: 04/30/20 23:06 Discharged to Home. Impression: Pneumonia, unspecified organism. - Condition is Stable. - Discharge Instructions: Community-Acquired Pneumonia, Adult. - Prescriptions for Levaquin 750 mg Oral Tablet - take 1 tablet by ORAL route once daily for 10 days; 10 tablet. Medrol (Jethro) 4 mg Oral Tablets, Dose Pack - take 1 tablet by ORAL route as directed - follow package instructions; 1 packet. - Medication Reconciliation Form, Thank You Letter, Antibiotic Education, Prescription Opioid Use form. - Follow up: Emergency Department; When: As needed; Reason: Worsening of condition. Follow up: Private Physician; When: 2 - 3 days; Reason: Recheck today's complaints, Continuance of care, Re-evaluation by your physician. - Problem is new. - Symptoms have improved. Signatures: Dispatcher [employer] EDMS Kevan Quiñones RN RN sg Cipriano Resendez MD MD cha Marinas, Patrick, NP VENDING MANAGER pm1 Kindra Domingo RN RN ch2 Corrections: (The following items were deleted from the chart) 04/30 22:09 21:32 LevaQUIN 750 mg 150 ml IVPB once over 90 mins ordered. pm1 pm1 05/01 00:35 04/30 23:06 04/30/2020 23:06 Discharged to Home. Impression: Pneumonia, unspecified ch2 organism. Condition is Stable. Forms are Medication Reconciliation Form, Thank You Letter, Antibiotic Education, Prescription Opioid Use. Follow up: Emergency Department; When: As needed; Reason: Worsening of condition. Follow up: Private Physician; When: 2 - 3 days; Reason: Recheck today's complaints, Continuance of care, Re-evaluation by your physician. Problem is new. Symptoms have improved. pm1
[2020-05-01 00:42] VITALS: TEMP 98.9
[2020-05-01 00:52] VITALS: BP 137/57; O2SAT 99
== END 2020-05-01 00:35 | disposition home or self-care (01) ==
LOC: ER 18:52
DX: J18.9 Pneumonia, unspecified organism (principal); U07.1 COVID-19; I10 Essential (primary) hypertension; Z88.0 Allergy status to penicillin; Z88.1 Allergy status to other antibiotic agents; Z88.5 Allergy status to narcotic agent; Z91.040 Latex allergy status; Z91.048 Other nonmedicinal substance allergy status
CPT/HCPCS: 93005; 87040; 85025; 80048; 36415; 83735; 85610; 80076; 84484; 83880; 71045; 96374; 99285; J2930

== ENCOUNTER 2020-05-04 13:09 | Inpatient (IN) | payer BC, OTHER ==
[2020-05-04] MEDS ORDERED: Levofloxacin500mg IV 500 MG/100 ML BAG IV ONE (14:08)
[2020-05-04 14:17] LABS: Protime INR 1.12
[2020-05-04 14:24] LABS: ALT/SGPT 50 U/L (12-78); AST/SGOT 26 U/L (15-37); Albumin 3.6 g/dL (3.4-5.0); Alkaline Phosphatase 117 U/L (45-117); Amylase 36 U/L (25-115); BUN Blood Urea Nitrogen 15 mg/dL (7-18); Bicarbonate 25 mmol/L (21-32); Bilirubin Direct 0.1 mg/dL (0-0.2); Bilirubin Total 0.5 mg/dL (0.2-1.0); CKMB Creatine Kinase MB < 1.0 ng/mL (0.3-3.6); Creatine Phosphokinase 57 U/L (26-192); Glucose Level 89 mg/dL (74-106); Lipase 87 U/L (73-393); Potassium 3.8 mmol/L (3.5-5.1); Protein, Total 7.6 g/dL (6.4-8.2); Sodium Level 136 mmol/L (136-145); Troponin (Emerg Dept Use Only) < 0.02 ng/mL (0.0-0.045)
[2020-05-04 14:36] LABS: Absolute Lymphocytes (CBC) 0.8 K/uL (0.7-4.9); Basophils % 0.2 % (0-1.3); Lymphocytes % 10.9 % (15.3-44.8); MPV 7.5 fL (7.6-11.3)
--- NOTE | 2020-05-04 14:38 | RAD REPORT ---
[facility]14 pm CLINICAL HISTORY: Cough COMPARISON: April 30, 2020 FINDINGS: Lung bases are hazy Upper lobes are clear. . The heart is normal size IMPRESSION: Lung bases are hazy. This could be secondary to overlying soft tissue or infiltrates. PA and lateral chest series recommended
[2020-05-04] MEDS ORDERED: ACETAMINOPHEN 500 MG TAB ONE (14:48)
--- OUTSIDE RECORDS SUMMARY | 2020-05-04 15:04 | XMS REPORT | Clinical Summary ---
:1960 Author Organization [facility] Address [address] [place] [address] Care Team Providers Name Role Phone Gio [...] Telephone General Surgery Yesenia Lacy MA after 05/04/2019 Family History Medical History Relation Name Comments Drug abuse Brother eTe Tomas Cancer Father Lupillo tomas Diabetes Maternal [...] Comments Blood Pressure 147/74 09/29/2019 8:10 AM [place] Pulse 68 09/29/2019 8:10 AM [place] Temperature 36.3 C (97.4 F) 09/29/2019 8:10 AM [place] Respiratory Rate - - Oxygen Saturation - - Inhaled Oxygen Concentration - - Weight - - Height - - Body Mass Index - - Plan of Treatment Date Type Specialty Care Team Description 05/15/2020 Telemedicine Cardiology Royce Escobar [facility] [address] [facility] [address] [place], [place] [address] [phone] Health Maintenance Due Date Last Done Comments COLONOSCOPY SCREENING 2010 SHINGLES VACCINES (#1) 2010 BREAST CANCER SCREENING 11/10/2015 11/10/2013 INFLUENZA VACCINE 06/10/2020 08/24/2019 CERVICAL CANCER SCREENING 03/30/2022 03/30/2019, 11/10/2013 Results Not on fileafter 05/04/2019 Advance Directives For more information, please contact: [phone] Type Date Recorded Patient Chief Controller Tower Explanati on Advance Directives, Living Will 01/22/2017 9:47 AM and Medical Power of Patternmaker Code Status Date Activated Date Inactivated Comments Full Code 01/22/2017 6:05 PM 01/24/2017 7:39 PM Code Status decision reached by: Patient
--- OUTSIDE RECORDS SUMMARY | 2020-05-04 15:05 | XMS REPORT | Continuity of Care Document ---
:1960 Author Organization [facility] t Address [address] [place] [address] Care Team Providers Name Role Phone Gio Garcia MD Primary Care Physician YESY Attending Clinician Unavailable Daniel Ceja MD Attending Clinician JACQUELIN Attending Clinician Unavailable Regino CASTRO Attending Clinician Unavailable MIKE Attending Clinician Unavailable Payers Payer Name Policy Type Policy Number Effective Date Expiration Date S ree [id number] xxxxxxxxxxxx 2015 [facility] CHOICE 00:00:00 [employer] PPO/[employer]ER[employer]PL PPOxxxxxxxxxxx x1 2014-Pre sentPPO Problems Condition Condition Condition Status Onset Resolution Last Treating Co mments Source Name Details Category Date Date Treatment Clinician Date Palpitatio Palpitatio Disease Active [facility] ns ns 9-18 Methodi 00:00: st 00 SOB SOB Disease Active [facility] (shortness (shortness 4-07 Me thodi of breath) of breath) 00:00: st 00 Tachycardi Tachycardi Disease Active [place] a a 3-15 Methodi 00:00: st 00 Disorder Disorder Disease Active [place] of liver of liver 3-15 Method i 00:00: st 00 Internal Internal Disease Active [place] hemorrhoid hemorrhoid - Me thodi s s 00:00: st 00 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 03-08 High Methodi 00:00: grade st 00 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 pyHPV+Und er the a=care of Dr Ceja Chronic Chronic Disease Active [facility] kidney kidney 4-29 [facility] disease, disease, 00:00: st stage III stage III 00 (moderate) (moderate) 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 03-08 Methodi 00:00: st 00 Major Major Disease Active Overview: Cristin[place] n depressive depressive 03-08 Depressio Methodi disorder, disorder, 00:00: n for st recurrent recurrent 00 most of episode, episode, her life, moderate moderate initially diagnosed in 1988rechector ellison in 2008 2 prior suicide attempts (1984 and 2008)Dr Sherine Umaña therapist Dr Corrina Brown LILIA on LILIA on Disease Active [facility] CPAP CPAP 03-08 Methodi 00:00: st 00 Hypersomno Hypersomno Disease Active [facility] lence lence 03-08 [facility]i 00:00: st 00 Bronchospa Bronchospa Disease Active Overview : [facility] sm sm 03-08 About 6 Methodi 00:00: months st 00 ago when she has an infection s bronchiti s; she was dx with "asthma" and was given spiriva and singulair , no pft's done. PTSD PTSD Disease Active [facility] (post-trau (post-trau 03-08 Me [facility] matic matic 00:00: st stress stress 00 disorder) disorder) HLD HLD Disease Active [facility] (hyperlipi (hyperlipi 03-08 Me thodi demia) demia) 00:00: st 00 Hypertensi Hypertensi Disease Active H [place] on on 03-02 Methodi 00:00: st 00 Hypothyroi Hypothyroi Disease Active [facility] dism dism 03-02 Methodi 00:00: st 00 LOW BACK Condition Active 2014-07-22 M emoria PAIN 07-22 08:35:31 l LOW BACK 00:00: Jairno n PAIN 00 Active 07/22/2014 Condition 4 [facility] LUMBAR Condition Active 2014-07-22 Mem oria RADICULOPA 07-22 08:35:31 l THY LUMBAR 00:00: [place] RADICULOPA 00 THY Active 07/22/2014 Condition 4 [...] Resolve Univers pneumonia pneumonia d ity of [place] Physici ans History of History of Problem Resolve Univers psychiatri psychiatri d it y of c c [place] treatment treatment Phys ici ans History of [...] Univers lower lower ity of quadrant quadrant [place] abdominal abdominal Phys ici tenderness tenderness an s Vaginal Vaginal Problem Active Univers discharge discharge ity of [place] Physici ans Breast Breast Problem Active Univers mass mass ity of [place] Physici ans Incontinen Incontinen Problem Active U nivers ce in ce in ity of female female [place] Physici ans Mixed Mixed Problem Active Univers stress and stress and it y of urge urge [place] urinary urinary Physici incontinen incontinen an s [...] [place] Physici [facility] GERD GERD Disease Active [facility] (gastroeso (gastroeso Me thodi phageal phageal st [...] Propensi Active Itching [place] ty to 4 Methodi adverse 00:00: st reaction 00 s [...] Univers porins to drug ity of (finding [place] ) Physici ans Codeine Allergy Active Univers Derivati to drug ity of ves (finding [place] ) Physici ans Penicill Allergy Active Univers ins to drug ity of (finding [place] ) Physici ans tetracyc Allergy Active Univers line to drug ity of (finding [place] ) Physici ans Latex Allergy Active Univers to ity of substanc [place] e Physici (finding ans ) Family History Family Member Diagnosis Comments Start Date Stop Date Source Mother Family history of Univers ity of diabetes mellitus [place] P hysicians Father Family history of Univers ity of Mesothelioma [place] Physic ians Brother Family history of Univers ity of malignant melanoma [place] Phys[facility] Brother Family history of Univers ity of hypertension [place] Physic ians Sister Family history of Univers ity of hypertension [place] Physic ians Natural brother Drug abuse [facility] M ethodist Natural father Cancer [facility] Me thodist Maternal Diabetes [facility] Method ist grandfather Natural mother Depression [facility] Me thodist Paternal COPD [facility] Method ist grandfather Paternal Hypertension [facility] Meth odist grandmother Social History Social Habit Start Date Stop Date Quantity Comments Source Sex Assigned At [facility] M ethodist Exposure to Yes [place] Metho dist SARS-CoV-2 (event) Alcohol intake 2019-09-29 2019-09-29 Current [facility] Me thodist 00:00:00 00:00:00 non-drinker of alcohol (finding) Smoking Status Start Date Stop Date Source Never smoker [facility] Methodis t Medications Ordered Filled Start Stop Current Ordering Indication Dosage Frequency Signature Comments Components Source Medication Medication Date Date Medication? Clinician (SIG) Name Name Nystatin-Tr Nystatin-Tr Yes SUBHRATHA APPLY Univers [facility] iainolone 6-05 YESY SPARINGLY ity of 601060-6.1 994794-2.1 00:00: M.D. TO [place] UNIT/GM-% UNIT/GM-% [...] MG tablet 10:04: daily. st 43 clonAZEPAM 2018- Yes 1mg Q.5D Take 1 mg [place] (KlonoPIN) 5-21 by mouth 2 Met hodi 1 MG tablet 10:04: (two) st 43 times a day as needed for anxiety. dexmethylph 2019 Yes 40mg QD Take 40 mg [place] [...] ton enidate XR 8-27 CAPSULE BY Met hodi (FOCALIN 00:00: MOUTH st XR) 20 MG 00 EVERY 24 hr AFTERNOON capsule valsartan-h 2017-0 Yes 1{tbl} QD Take 1 [place] ydrochlorot 6-28 tablet by Met hodi hiazide 00:00: mouth st (DIOVAN-HCT 00 daily. [...] RESTASIS Yes PLACE 1 [place] MULTIDOSE 6-28 DROP IN Methodi 0.05 % 00:00: EACH EYE st drops 00 TWICE DAILY buPROPion Yes TAKE 1 [place] XL 6-28 TABLET BY Methodi (WELLBUTRIN 00:00: MOUTH EACH st XL) 150 MG 00 MORNING. 24 hr tablet BYSTOLIC 10 Yes 5mg QD 5 mg [place] mg tablet 5-02 daily. Pt Metho di 00:00: was st [...] Me moria TABS 9-12 qd l 00:00: 00 LIDODERM 5 Yes apply to Mem oria % PTCH 9-12 affected l 00:00: area 12h [place] 00 on 12h off per 24h prn pain COMPOUND 2013-0 Yes apply 2-3 Reji zia PAIN CREAM 9-12 pumps to l 00:00: the affected area 3-4 times daily. Prazosin Prazosin [...] Yes Uni vers TABS TABS ity of [place] Physici ans Xyrem SOLN Xyrem SOLN Yes Uni vers ity of [place] Physici ans Co Q 10 Co Q 10 Yes Univers CAPS CAPS ity of [place] [facility]ici ans Restasis Restasis Yes Univers EMUL EMUL ity of [place] Physici ans Crestor 5 Crestor 5 Yes [...] Oral MG Oral ity of Tablet Tablet [place] Physici ans Dexmethylph Dexmethylph Yes U nivers enidate HCl enidate HCl i ty of ER 40 MG ER 40 MG [place] Oral Oral Physici Capsule Capsule ans Extended Extended Release 24 Release 24 Hour Hour clonazePAM clonazePAM Yes Uni vers 1 MG Oral 1 MG Oral ity o f Tablet Tablet [place] Physici ans Hydroxychlo Hydroxychlo Yes U nivers roquine roquine ity of Sulfate 200 Sulfate 200 [place] MG Oral MG Oral Physici Tablet Tablet ans Ondansetron Ondansetron Yes U nivers HCl - 4 MG HCl - 4 MG ity of Oral Tablet Oral Tablet [place] Physici ans Urodol TABS Urodol TABS Yes U nivers ity of [place] Physic ans Vital Signs Vital Name Observation Time Observation Value Comments Source Systolic blood 2020-04-14 138 mm[Hg] Location: [facility] 08:32:00 Position: [place] Physician s Sitting Diastolic blood 2020-04-14 77 mm[Hg] Location: [facility] 08:32:00 Position: [place] Physician s Sitting Body height 2020-04-14 67 [in_us] [facility] 08:32:00 [place] Physician s Weight 2020-04-14 200 [lb_av] [facility] 08:32:00 [place] Physician s Body mass index 2020-04-14 31.32 kg/m2 University o f (BMI) [Ratio] 08:32:00 [place] Physicia ns Body temperature 2020-04-14 97.8 [degF] Method: [facility] 08:32:00 Temporal [place] Physician s Heart Rate 2020-04-14 70 /min [facility] 08:32:00 [place] Physician s Systolic blood 2019-09-29 147 mm[Hg] [facility] pressure 08:10:00 [facility] Diastolic blood 2019-09-29 74 mm[Hg] [facility] pressure 08:10:00 [facility] Heart rate 2019-09-29 68 /min [facility] 08:10:00 [facility] Body temperature 2019-09-29 36.33 Kaylynn [facility] 08:10:00 [facility] BP Systolic 2019-08-18 136 mm[Hg] Location: [facility] 15:52:00 Position: [place] Physician s Sitting BP Diastolic 2019-08-18 80 mm[Hg] Location: [facility] 15:52:00 Position: [place] Physician s Sitting Height 2019-08-18 67 [in_us] University 15:52:00 [place] Physician s Weight 2019-08-18 216.375 [lb_av] University o 15:52:00 [place] Physician s Body Mass Index 2019-08-18 33.89 kg/m2 University o f Calculated 15:52:00 [place] Physician s Temperature 2019-08-18 98.7 [degF] University 15:52:00 [place] Physician s BP Systolic 2019-08-09 119 mm[Hg] Location: [facility] 10:10:00 Position: [place] Physician s Sitting BP Diastolic 2019-08-09 74 mm[Hg] Location: [facility] 10:10:00 Position: [place] Physician s Sitting Height 2019-08-09 67 [in_us] University 10:10:00 [place] Physician s Weight 2019-08-09 214.375 [lb_av] University o f 10:10:00 [place] Physician s Body Mass Index 2019-08-09 33.58 kg/m2 University o f Calculated 10:10:00 [place] Physician s Weight 2014-07-22 [facility] 13:35:31 Height 2014-07-22 [facility] 13:35:31 Temperature Oral 2014-07-22 96.4 F [facility] lorelei (F) 13:35:31 Respitory Rate 2014-07-22 [facility] Evie grady 13:35:31 Heart Rate 2014-07-22 [facility] 13:35:31 Systolic (mm Hg) 2014-07-22 [facility] He rmann 13:35:31 Diastolic (mm Hg) 2014-07-22 [facility] H ermann 13:35:31 Procedures Procedure Date / Time Performing Clinician Source Performed [QL] TSH, 3RD GENERATION 2020-04-14 00[facility]00[facility] Phys[facility] [QL] PROLACTIN 2020-04-14 00:00:00 [facility] [place] Physicians MA Digital Mammo DX Elbert w 2020-04-14 00:00:00 U [facility] ed [id number] [place] [id number] 2019-08-23 00:00:00 Unive [facility] Physicians [QLH] CULTURE, URINE, 2019-08-18 00:00:00 [facility] ROUTINE Physicians MA Digital Mammo DX Elbert 2019-08-13 00:00:00 [id number] US Breast Bilat [id number] 2019-08-13 00:00:00 [facility] MA Digital Mammo Screening 2019-08-09 00:00:00 U [facility] Elbert G0202 Physicians US Pelvis with Pelvis 2019-08-09 00:00:00 [facility] Transvaginal [id number] Physicians . [facility] - Affirm VPIII 2019-08-09 00:00:00 [facility] (BV Panel) Physicians . [facility] - GC/Chlamydia 2019-08-09 00:00:00 Univ [facility] Physicians History of Total Abdominal Unive [facility] Hysterectomy Physicians History of Breast [facility] augmentation Physicians History of [facility] [place] calcaneus for spur Physicians History of [facility] Physicians History of [facility] Physicians History of Cholecystectomy Unive [facility] Physicians History of Shoulder University o f [place] Surgery Physicians History of Complete University o [facility] Colonoscopy Physicians History of Colonic University [facility] polypectomy Physicians Plan of Care Planned Activity Planned Date Details Comments Source Future Scheduled 2022-03-30 Screening for [facility] thodist Test 00:00:00 malignant neoplasm of cervix (procedure) [code = 484966654] Future Scheduled 2020-06-10 INFLUENZA VACCINE [place] [facility] Test 00:00:00 [code = INFLUENZA VACCINE] Future Scheduled 2015-11-10 BREAST CANCER [place] [facility] thodist Test 00:00:00 SCREENING [code = BREAST CANCER SCREENING] Future Scheduled 2010 COLONOSCOPY SCREENING Rex murillo [facility] Test 00:00:00 [code = COLONOSCOPY SCREENING] Future Scheduled 2010 SHINGLES VACCINES [place] [facility] Test 00:00:00 (#1) [code = SHINGLES VACCINES (#1)] Encounters Start End Encounter Admission Attending Care Care Encounter Source Date/Time Date/Time Type Type Clinicians Facility Department ID 2020-04-14 2020-04-14 Appointmen YESY [facility] Women's [id number] Univers 08:30:00 08:30:00 t; Sonia FRAZIER M.D. [place] SUBHRATHA, Physi ci M.D. ans 2019-09-16 2019-09-16 Appointmen FERNANDO ROPER [facility] [id number] Univers 09:50:00 09:50:00 t; ELIOT ROPER [facility] Son Cota M.D. Physici ans 2019-09-15 2019-09-15 Appointmen FERNANDO ROPER [facility] [id number] Univers 11:20:00 11:20:00 t; ELIOT ROPER ity of [place], M.D. [place] M.D. Physici ans 2019-08-18 2019-08-18 Appointmen FERNANDO ROPER [facility]ne[facility] [id number] Univers 15:40:00 15:40:00 t; ELIOT ROPER gy Center - ity [place], M.D. [place] M.D. Physici ans 2019-08-09 2019-08-09 Appointmen FERNANDO MCKEON Women's [id number] Univers 10:30:00 10:30:00 t; LUCAS MCKEON M.D. Center Kristi Padilla M.D. Physici ans Results Test Description Test Time Test Comments Results Result Sourc e Comments US Pelvis with 2019-08-10 STUDY: Pelvis w Unive rsity of Pelvis 4 Pelvis Transvaginal [place] Transvaginal 09:51:00 USCOMPARISON: Physician s [id number] None.HISTORY: - Right lower quadrant abdominal tenderness.FINDINGS: Transvaginal and transabdominal ultrasound images of the pelvis were obtained.Uterus: Has been removed.Ovaries: Have been removed.Pelvic fluid: None.IMPRESSION:Stat us post hysterectomy and bilateral salpingooophorectomy .Otherwise no significant abnormality.--Read by: Dixie Lewis MDDictated Date/time: 08/23/19 10:39Electronically Signed by: Dixie Lewis MD 08/23/1910:40FINAL REPORT US Breast [id number] 2019-08-10 COMPLETE ULTRASOUND [place] [id number] OF LEFT BREAST AND [place] 08:22:00 AXILLA: Physicians 08/23/2019CLINICAL: /N63.0 Unspecified Lump In Unspecified Breast. COMPARISON:Compariso n is made to exam dated: 08/23/2019 mammogram - [facility]. TECHNIQUE: Color flow and real-time [...] of Diagnostic Imaging.Bashir Esparza M.D. levi/:08/23/2019 09:14:30 Loading Dock Helper(s): Alyx Almaraz RDMS, [facility] Imagingletter sent: BI-RADS 1/2 Ultrasound BI-RADS: 2 Benign--Read by: Bashir Esparza MDDictated Date/time: 08/23/19 09:14Electronically Signed by: Bashri Esparza MD 08/23/1909:14FINAL REPORT MA Digital Mammo [...] recommended. Professional services are provided by the University [facility] Son NewportDivision of Diagnostic Imaging.Bashir Esparza M.D. levi/:08/23/2019 09:13:09 Loading Dock Helper(s): Radha Bernard [facility] BI-RADS: 0 Indeterminate--Read by: Bashir Esparzaictated Date/time: 08/23/19 09:13Electronically Signed by: Bashir Esparza MD 08/23/1909:13FINAL REPORT [[facility]] CULTURE, URINE, ROUTINE 2019-08-18 16:33:01 Test Item Value Reference Range Interpretation Comme nts FINAL REPORT (test code = FINAL REPORT) No Growth [facility] Physicians[O] Urine Dipstick (In Office)2019-08-18 16:32:00 Test Item Value Reference Range Interpretation Comments Glucose (test code = Glucose) neg N LEUKOCYTES (test code = LEUKOCYTES) neg N NITRITE; Normal (test code = 41210-0) neg N UROBILINOGEN; Normal (test code = 0.2 N 95207-3) PROTEIN; Normal (test code = 34696-4) neg N pH (test code = pH) 7.5 N URINE BLOOD; Normal (test code = neg N 01369-1) SPECIFIC GRAVITY; Normal (test code = 1.020 N 2965-2) KETONES; Normal (test code = 19933-6) neg N BILIRUBIN; Normal (test code = 05539-6) neg N [facility] Physicians. [facility] - Affirm VPIII (BV Panel)2019-08-09 00:00:00 Test Item Value Reference Range Interpretation Comments Affirm VPIII (BV Panel) REPORT See Comment (test code = Affirm VPIII (BV Panel) REPORT) [facility] Physicians. [facility] - GC/[id number] 00:00:00 Test Item Value Reference Range Interpretation Comments GC REPORT (test code = GC REPORT) Negative Chlamydia REPORT (test code = Negative 59356-2) [facility] Physicians
--- NOTE | 2020-05-04 15:11 | EDPHYS ---
Physician Documentation [facility] Name: Lydia Hanson Age: 59 yrs Sex: Female : 1960 Arrival Date: 05/04/2020 Time: 13:12 Bed 7 Private MD: ED Physician Larry Guzman HPI: 05/04 16:33 This 59 yrs old Female presents to ER via Ambulatory with complaints of jr8 Cough, Breathing Difficulty, Covid positive. 16:33 The patient or guardian reports cough, that is intermittent, described as moderate, jr8 difficulty breathing. Onset: The symptoms/episode began/occurred gradually, 1 week(s) ago, and became worse and became persistent. Severity of symptoms: At their worst the symptoms were moderate, in the emergency department the symptoms are unchanged. Modifying factors: The symptoms are alleviated by nothing, the symptoms are aggravated by exertion. Associated signs and symptoms: Pertinent positives: fever. The patient has not experienced similar symptoms in the past. The patient has been recently seen by a physician:. Patient diagnosed with COVID about a week ago. Third time coming to hospital since then for increased breathing problems. Stated that its to the point now where she cannot get around the house without becoming dizzy and with moderate difficulty with breathing . Historical: - Allergies: 13:22 CEPHALOSPORINS; ll1 13:22 Codeine; ll1 13:22 PENICILLINS; ll1 13:22 TETRACYCLINES; ll1 13:22 Latex, Natural Rubber; ll1 - Home Meds: 13:22 dexmethylphenidate 20 mg Oral BP50 1 cap once daily [Active]; ll1 - PMHx: 13:22 Thyroid problem; narcolepsy; Hypertension; Hyperlipidemia; Depression; Sleep Apnea; ll1 V-tach; - Immunization history:: Flu vaccine is not up to date. - Social history:: Smoking status: Patient denies any tobacco usage or history of. Patient/guardian denies using alcohol, street drugs, tobacco products. ROS: 16:33 Eyes: Negative for injury, pain, redness, and discharge, ENT: Negative for injury, jr8 pain, and discharge, Neck: Negative for injury, pain, and swelling, Cardiovascular: Negative for chest pain, palpitations, and edema, Abdomen/GI: Negative for abdominal pain, nausea, vomiting, diarrhea, and constipation, Back: Negative for injury and pain, MS/Extremity: Negative for injury and deformity, Skin: Negative for injury, rash, and discoloration, Neuro: Negative for headache, weakness, numbness, tingling, and seizure. 16:33 Constitutional: Positive for body aches, chills, fever. 16:33 Respiratory: Positive for cough, shortness of breath. Exam: 16:33 Eyes: Pupils equal round and reactive to light, extra-ocular motions intact. Lids and jr8 lashes normal. Conjunctiva and sclera are non-icteric and not injected. Cornea within normal limits. Periorbital areas with no swelling, redness, or edema. ENT: Nares patent. No nasal discharge, no septal abnormalities noted. Tympanic membranes are normal and external auditory canals are clear. Oropharynx with no redness, swelling, or masses, exudates, or evidence of obstruction, uvula midline. Mucous membranes moist. Neck: Trachea midline, no thyromegaly or masses palpated, and no cervical lymphadenopathy. Supple, full range of motion without nuchal rigidity, or vertebral point tenderness. No Meningismus. Cardiovascular: Regular rate and rhythm with a normal S1 and S2. No gallops, murmurs, or rubs. Normal PMI, no JVD. No pulse deficits. Respiratory: Lungs have equal breath sounds bilaterally, clear to auscultation and percussion. No rales, rhonchi or wheezes noted. No increased work of breathing, no retractions or nasal flaring. Abdomen/GI: Soft, non-tender, with normal bowel sounds. No distension or tympany. No guarding or rebound. No evidence of tenderness throughout. Back: No spinal tenderness. No costovertebral tenderness. Full range of motion. Skin: Warm, dry with normal turgor. Normal color with no rashes, no lesions, and no evidence of cellulitis. MS/ Extremity: Pulses equal, no cyanosis. Neurovascular intact. Full, normal range of motion. Neuro: Awake and alert, GCS 15, oriented to person, place, time, and situation. Cranial nerves II-XII grossly intact. Motor strength 5/5 in all extremities. Sensory grossly intact. Cerebellar exam normal. Normal gait. Vital Signs: 13:19 BP 151 / 88; Pulse 91; Resp 20; Temp 102.9; Pulse Ox 93% ; Pain 8/10; ll1 14:20 BP 133 / 84; Pulse 82; Resp 26; Pulse Ox 97% on R/A; Weight 88 kg; Height 5 ft. 7 in. sv (170.18 cm); 14:45 BP 133 / 93; Pulse 82; Resp 28; Pulse Ox 96% ; sv 15:38 BP 107 / 84; Pulse 75; Resp 22; Pulse Ox 96% on R/A; sv 16:15 BP 120 / 80; Pulse 68; Resp 18; Pulse Ox 97% on 2 lpm NC; sv 17:21 BP 126 / 78; Pulse 65; Resp 20; Temp 100.5(O); Pulse Ox 98% on 2 lpm NC; mh5 17:45 BP 109 / 71; Pulse 75; Resp 20; Pulse Ox 96% on 2 lpm NC; sv 18:29 BP 123 / 77; Pulse 72; Resp 24; Pulse Ox 97% on 2 lpm NC; sv 19:30 BP 109 / 72; Pulse 70; Resp 19; Temp 100; Pulse Ox 100% 2 lpm ; rr5 20:47 BP 109 / 72; Pulse 70; Resp 23; Pulse Ox 99% on 2 lpm NC; rr5 14:20 Body Mass Index 30.39 (88.00 kg, 170.18 cm) sv 15:38 David MARTINEZ wanted pt on 2L NC. Placed on pt. sv MDM: 13:29 Patient medically screened. jr8 15:04 Data reviewed: vital signs, nurses notes, lab test result(s), EKG, radiologic studies, jr8 plain films. Data interpreted: Pulse oximetry: on room air is 92 %. Interpretation: borderline. Counseling: I had a detailed discussion with the patient and/or guardian regarding: the historical points, exam findings, and any diagnostic results supporting the discharge/admit diagnosis, lab results, radiology results, the need for further work-up and treatment in the hospital. Physician consultation: A Radha SCHMIDT was called at 15:05, was contacted at 15:05, regarding admission, to the telemetry unit. consult, patient's condition, and will see patient in inpatient room. 05/04 13:26 Order name: Amylase, Serum; Complete Time: 14:36 sv 05/04 13:26 Order name: Basic Metabolic Panel; Complete Time: 14:36 sv 05/04 13:26 Order name: Blood Culture Adult (2) sv 05/04 13:26 Order name: CBC with Diff; Complete Time: 16:22 sv 05/04 13:26 Order name: Ckmb; Complete Time: 14:36 sv 05/04 13:26 Order name: CPK; Complete Time: 14:36 sv 05/04 13:26 Order name: Lactate; Complete Time: 14:57 sv 05/04 13:26 Order name: LFT's; Complete Time: 14:36 sv 05/04 13:26 Order name: Lipase; Complete Time: 14:36 sv 05/04 13:26 Order name: Procalcitonin; Complete Time: 15:00 sv 05/04 13:26 Order name: Protime (+inr); Complete Time: 14:36 sv 05/04 13:26 Order name: Ptt, Activated; Complete Time: 14:36 sv 05/04 13:26 Order name: Troponin (emerg Dept Use Only); Complete Time: 14:36 05/04 13:26 Order name: Urine Microscopic Only 05/04 13:26 Order name: Chest Single View XRAY; Complete Time: 14:57 sv 05/04 13:26 Order name: Cardiac monitoring; Complete Time: 13:55 sv 05/04 13:26 Order name: EKG - Nurse/Tech; Complete Time: 13:55 sv 05/04 13:26 Order name: IV Saline Lock - Large Bore; Complete Time: 13:55 sv 05/04 13:26 Order name: Labs collected and sent; Complete Time: 13:55 sv 05/04 13:26 Order name: O2 Per Protocol; Complete Time: 13:56 05/04 13:57 Order name: COVID-19 05/04 13:58 Order name: Ferritin; Complete Time: 16:22 sv 05/04 13:58 Order name: LDH; Complete Time: 16:22 sv 05/04 13:58 Order name: Fibrinogen; Complete Time: 14:36 sv 05/04 13:58 Order name: C-Reactive Protein; Complete Time: 16:22 sv 05/04 15:23 Order name: CONS Physician Consult; Complete Time: 17:45 EDMS 05/04 15:32 Order name: Manual Differential; Complete Time: 16:22 EDMS 05/04 16:37 Order name: Diet Heart Healthy; Complete Time: 16:38 sv 05/04 13:26 Order name: O2 Sat Monitoring; Complete Time: 13:56 sv Administered Medications: 14:19 Drug: LevaQUIN 500 mg Volume: 100 ml; Route: IVPB; Infused Over: 60 mins; Site: right sv wrist; 15:30 Follow up: Response: No adverse reaction; IV Status: Completed infusion; IV Intake: sv 100ml 19:50 Drug: Tylenol 1000 mg Route: PO; rr5 20:40 Follow up: Response: No adverse reaction rr5 Disposition: 05/04/20 15:10 Hospitalization ordered by Santosh Garcia for Inpatient Admission. Preliminary diagnosis are COVID-19, Dyspnea, Acute respiratory failure with hypoxia. - Bed requested for Telemetry/MedSurg (Inpatient). - Status is Inpatient Admission. rr5 - Condition is Stable. - Problem is new. - Symptoms have improved. Addendum: 05/06/2020 05:35 Co-signature as Attending Physician, Larry Guzman MD. m Signatures: Dispatcher [employer] Cortney Smith RN MARITA Ramon Agudelo RN RN em Roszak, Josh, PA PA jr8 Trupti Markham RN RN Yudelka Vergara Raymond RN RN rr5 Anastasiia Lagos RN RN ll1 Larry Guzman MD MD 7 Corrections: (The following items were deleted from the chart) 05/04 18:49 15:10 Hospitalization Ordered by A Radha SCHMIDT for Inpatient Admission. Preliminary eb diagnosis is COVID-19; Dyspnea; Acute respiratory failure with hypoxia. Bed requested for Telemetry/MedSurg (Inpatient). Status is Inpatient Admission. Condition is Stable. Problem is new. Symptoms have improved. jr8 19:20 18:49 05/04/2020 15:10 Hospitalization Ordered by A Radha SCHMITD for Inpatient Admission. cg Preliminary diagnosis is COVID-19; Dyspnea; Acute respiratory failure with hypoxia. Bed requested for Telemetry/MedSurg (Inpatient). Status is Inpatient Admission. Condition is Stable. Problem is new. Symptoms have improved. eb 20:34 19:20 05/04/2020 15:10 Hospitalization Ordered by A Radha SCHMIDT for Inpatient Admission. cg Preliminary diagnosis is COVID-19; Dyspnea; Acute respiratory failure with hypoxia. Bed requested for Telemetry/MedSurg (Inpatient). Status is Inpatient Admission. Condition is Stable. Problem is new. Symptoms have improved. cg 21:12 20:34 05/04/2020 15:10 Hospitalization Ordered by A Radha SCHMIDT for Inpatient Admission. rr5 Preliminary diagnosis is COVID-19; Dyspnea; Acute respiratory failure with hypoxia. Bed requested for Telemetry/MedSurg (Inpatient). Status is Inpatient Admission. Condition is Stable. Problem is new. Symptoms have improved. cg
--- NOTE | 2020-05-04 15:11 | ER ---
Nurse's Notes [facility] Name: Lydia Hanson Age: 59 yrs Sex: Female : 1960 Arrival Date: 05/04/2020 Time: 13:12 Bed 7 Private MD: Diagnosis: COVID-19;Dyspnea;Acute respiratory failure with hypoxia Presentation: 05/04 13:19 Chief complaint: Patient states: SOB and cough for 3 days. Covid positive and ll1 15th. High fever with chills. Coronavirus screen: Surgical mask placed on patient. Patient moved to private room, placed in contact and droplet isolation with eye protection until further assessment. Patient reports a cough. Patient reports shortness of breath or difficulty breathing. Patient reports a measured and/or subjective temperature greater than 100.4F. Patient denies travel on a cruise ship or to a country the [facility] currently lists as an affected area. Patient denies contact with known and/or suspected case of COVID-19. Ebola Screen: Patient denies travel to an Ebola-affected area in the 21 days before illness onset. Initial Sepsis Screen: Does the patient meet any 2 criteria? RR > 20 per min. Temp <36.0*C (96.8*F)) or > 38.3*C (100.9*F). Yes Does the patient have a suspected source of infection? Yes: Productive cough/pneumonia. Risk Assessment: Do you want to hurt yourself or someone else? Patient reports no desire to harm self or others. Onset of symptoms was April 25, 2020. 13:19 Method Of Arrival: Ambulatory ll1 13:19 Acuity: RIA 2 ll1 Historical: - Allergies: 13:22 CEPHALOSPORINS; ll1 13:22 Codeine; ll1 13:22 PENICILLINS; ll1 13:22 TETRACYCLINES; ll1 13:22 Latex, Natural Rubber; ll1 - Home Meds: 13:22 dexmethylphenidate 20 mg Oral BP50 1 cap once daily [Active]; ll1 - PMHx: 13:22 Thyroid problem; narcolepsy; Hypertension; Hyperlipidemia; Depression; Sleep Apnea; ll1 V-tach; - Immunization history:: Flu vaccine is not up to date. - Social history:: Smoking status: Patient denies any tobacco usage or history of. Patient/guardian denies using alcohol, street drugs, tobacco products. Screenin:56 Abuse screen: Denies threats or abuse. Denies injuries from another. Nutritional sv screening: No deficits noted. Tuberculosis screening: No symptoms or risk factors identified. Fall Risk None identified. Assessment: 13:25 Reassessment: Code Sepsis called. sv 13:40 General: Appears in no apparent distress. uncomfortable, well developed, Behavior is sv calm, cooperative, appropriate for age. Pain: Complains of pain in anterior aspect of left upper chest, left lateral anterior chest and left breast Pain currently is 8 out of 10 on a pain scale. Quality of pain is described as sharp, Is intermittent, episodic, Aggravated by increased activity, coughing or deep breathing Also complains of sleeplessness, shortness of breath. Neuro: Level of Consciousness is awake, alert, obeys commands, Oriented to person, place, time, situation, Moves all extremities. Full function Gait is steady. Cardiovascular: Patient's skin is warm and dry. Rhythm is sinus rhythm. Respiratory: Reports shortness of breath at rest on exertion cough that is non-productive, persistent Airway is patent Respiratory effort is even, unlabored, Respiratory pattern is symmetrical, tachypnea. Derm: Skin is pink, warm \T\ dry. Musculoskeletal: Range of motion: intact in all extremities. 14:19 Reassessment: Patient appears in no apparent distress at this time. No changes from sv previously documented assessment. Patient and/or family updated on plan of care and expected duration. Pain level reassessed. Patient is alert, oriented x 3, equal unlabored respirations, skin warm/dry/pink. 15:30 Reassessment: Patient appears in no apparent distress at this time. Patient and/or sv family updated on plan of care and expected duration. Pain level reassessed. Patient is alert, oriented x 3, equal unlabored respirations, skin warm/dry/pink. 17:32 Reassessment: Patient appears in no apparent distress at this time. Patient and/or sv family updated on plan of care and expected duration. Pain level reassessed. Patient is alert, oriented x 3, equal unlabored respirations, skin warm/dry/pink. 18:20 Reassessment: Patient appears in no apparent distress at this time. Patient and/or sv family updated on plan of care and expected duration. Pain level reassessed. Patient is alert, oriented x 3, equal unlabored respirations, skin warm/dry/pink. 19:30 General: Appears in no apparent distress. uncomfortable, Behavior is calm, cooperative, rr5 appropriate for age, for transfer to 4th floor awaiting for acceptance. 19:30 Pain: Complains of pain in head. Neuro: Level of Consciousness is awake, alert, obeys rr5 commands, Oriented to person, place, time, situation. Respiratory: Reports shortness of breath at rest on exertion cough that is non-productive, persistent Airway is patent Respiratory effort is even, unlabored, Respiratory pattern is regular, symmetrical. GI: No signs and/or symptoms were reported involving the gastrointestinal system. Musculoskeletal: Circulation, motion, and sensation intact. Capillary refill < 3 seconds. 20:47 Reassessment: Patient appears in no apparent distress at this time. Patient is alert, rr5 oriented x 3, equal unlabored respirations, skin warm/dry/pink. for transfer to 4th floor awake conscious and coherent with IV cannula intact. vitally stable. 21:00 Reassessment: dr aragon seen and examined the patient at bedside. rr5 Vital Signs: 13:19 BP 151 / 88; Pulse 91; Resp 20; Temp 102.9; Pulse Ox 93% ; Pain 8/10; ll1 14:20 BP 133 / 84; Pulse 82; Resp 26; Pulse Ox 97% on R/A; Weight 88 kg; Height 5 ft. 7 in. sv (170.18 cm); 14:45 BP 133 / 93; Pulse 82; Resp 28; Pulse Ox 96% ; sv 15:38 BP 107 / 84; Pulse 75; Resp 22; Pulse Ox 96% on R/A; sv 16:15 BP 120 / 80; Pulse 68; Resp 18; Pulse Ox 97% on 2 lpm NC; sv 17:21 BP 126 / 78; Pulse 65; Resp 20; Temp 100.5(O); Pulse Ox 98% on 2 lpm NC; mh5 17:45 BP 109 / 71; Pulse 75; Resp 20; Pulse Ox 96% on 2 lpm NC; sv 18:29 BP 123 / 77; Pulse 72; Resp 24; Pulse Ox 97% on 2 lpm NC; sv 19:30 BP 109 / 72; Pulse 70; Resp 19; Temp 100; Pulse Ox 100% 2 lpm ; rr5 20:47 BP 109 / 72; Pulse 70; Resp 23; Pulse Ox 99% on 2 lpm NC; rr5 14:20 Body Mass Index 30.39 (88.00 kg, 170.18 cm) sv 15:38 David MARTINEZ wanted pt on 2L NC. Placed on pt. sv ED Course: 13:12 Patient arrived in ED. mr 13:21 Triage completed. ll1 13:22 Arm band placed on Patient placed in an exam room, on a stretcher. ll1 13:24 Cortney Mena, MARITA is Primary Nurse. sv 13:29 David Landaverde PA is PHCP. jr8 13:29 Larry Guzman MD is Attending Physician. jr8 13:35 Patient has correct armband on for positive identification. Placed in gown. Bed in low sv position. Call light in reach. Adult w/ patient. wedding day coordinator on. Pulse ox on. NIBP on. Door closed. Head of bed elevated. 13:40 First set of blood cultures drawn by lab staff. sv 13:45 Second set of blood cultures drawn by me. Inserted saline lock: 22 gauge in right sv wrist, using aseptic technique. Blood collected. Flushed right with 5 ml normal saline. 13:55 X-ray(s) taken. sv 14:14 Chest Single View XRAY In Process Unspecified. EDMS 14:27 Awaiting lab results, Awaiting radiology results. Awaiting re-evaluation by ER provider.sv 14:40 EKG done, by ED staff, reviewed by David MARTINEZ COVID-19. mh5 14:49 Nurse Practitioner and/or Physician [employer] Developer to see patient. sv 15:05 Santosh Aragon MD is Hospitalizing Provider. jr8 18:28 Awaiting bed assignment. sv 19:04 Report given to Wang KIRKLAND and Fareed KIRKLAND. sv 19:05 Primary Nurse role handed off by Cortney Mena RN sv 19:11 Fareed Mcmullen RN is Primary Nurse. rr5 20:29 No provider procedures requiring assistance completed. Patient admitted, IV remains in rr5 place. intact, No redness/swelling at site. Administered Medications: 14:19 Drug: LevaQUIN 500 mg Volume: 100 ml; Route: IVPB; Infused Over: 60 mins; Site: right sv wrist; 15:30 Follow up: Response: No adverse reaction; IV Status: Completed infusion; IV Intake: sv 100ml 19:50 Drug: Tylenol 1000 mg Route: PO; rr5 20:40 Follow up: Response: No adverse reaction rr5 Intake: 15:30 IV: 100ml; Total: 100ml. sv Outcome: 15:10 Decision to Hospitalize by Provider. jr8 20:48 Admitted to Tele accompanied by tech, via stretcher, room 415, with oxygen, with chart, rr5 Report called to marshal 20:48 Condition: stable 20:48 Instructed on the need for admit. 21:12 Patient left the ED. rr5 Signatures: Dispatcher [employer] EDMS Cortney Mena RN RN sv Olu, Lydia mr Akhil, MICHELLE Hernandez PA jr8 Florence Oakes Fareed Howard RN RN rr5 Anastasiia Lagos RN RN ll1 Corrections: (The following items were deleted from the chart) 14:34 14:20 BP 133 / 84; Pulse 82bpm; Resp 26bpm; Pulse Ox 97% RA; sv sv 15:22 14:41 Tylenol 1000 mg PO sv sv
[2020-05-04 15:31] LABS: Platelet Estimate ADEQ
[2020-05-04 15:32] LABS: Blood Morphology Comment NOT SEEN (NOT SEEN)
[2020-05-04 15:33] LABS: C-Reactive Protein 32.7 mg/L (<3.00); Ferritin 116.3 ng/mL (8-388)
[2020-05-04] MEDS ORDERED: ONDANSETRON 4 MG/2 ML VIAL IV PRN (21:41)
[2020-05-04] MEDS: dexAMETHasone 10 MG/ML VIAL IV SCH (21:41)
[2020-05-04] MEDS ORDERED: ACETAMINOPHEN 500 MG TAB PO PRN (21:41)
[2020-05-05] MEDS: dexAMETHasone 10 MG/ML VIAL IV SCH ×2 (00:25→07:58)
[2020-05-05 02:15] VITALS: BMI 30.4
[2020-05-05 06:29] LABS: Absolute Lymphocytes (CBC) 0.7 K/uL (0.7-4.9); Basophils % 0.2 % (0-1.3); Hematocrit 41.6 % (36.0-45.0); Lymphocytes % 15.2 % (15.3-44.8); MPV 7.2 fL (7.6-11.3)
[2020-05-05 06:45] LABS: Potassium 3.7 mmol/L (3.5-5.1)
--- NOTE | 2020-05-05 09:21 | RAD REPORT ---
EXAM DESCRIPTION: RAD - Chest Single View - 05/05/2020 9:10 am CLINICAL HISTORY: COVID 19, fever COMPARISON: Portable May 04 TECHNIQUE: AP portable chest image was obtained 05/05/2020 9:10 am . FINDINGS: Lung volumes are improved but still low. Patchy alveolar opacities are scattered in both l zuleyka draper. This is a pattern consistent with the COVID-19 infection history. No diffuse pulmonary ed clare. Heart and vasculature are normal. No measurable pleural effusion and no pneumothorax. No acute bony abnormality seen. No acute aortic findings suspected. IMPRESSION: Patchy bilateral airspace disease consistent with the history of COVID-19 infection. Lung findings may be slightly worse. The prior study was very limited making comparison difficult.
[2020-05-05] MEDS ORDERED: ONDANSETRON 4 MG (ODT) TAB PO PRN (09:30)
[2020-05-05] MEDS ORDERED: clonazePAM 1 MG TAB PO PRN (09:30)
[2020-05-05] MEDS ORDERED: HYDROXYCHLOROQUINE 200MG TAB PO SCH (10:00)
[2020-05-05 11:02] VITALS: O2SAT 97
--- NOTE | 2020-05-05 11:11 | P.CNS ---
Date of Consult: 05/05/20 Reason for Consult: ISABEL ramirezonia Chief Complaint: SOB History of Present Illness: Pt is 59 yrs of age with asthma using albuterol prn .rested COVID pos 12 days ago AW SOB cough and fever for 3 days. Febrile. feels fine now. SOb has improved. No diarhea or vomiting Allergies codeine Allergy (Verified 05/05/20 02:42) Itching/Hives/Rash Latex, Natural Rubber Allergy (Verified 05/05/20 02:42) Itching/Hives/Rash Cephalosporins Adverse Reaction (Verified 05/05/20 02:42) Anaphylaxis Penicillins Adverse Reaction (Verified 05/05/20 02:42) Itching/Hives/Rash tetracycline Adverse Reaction (Verified 05/05/20 02:42) Anaphylaxis Home Medications: Dexmethylphenidate HCl [Dexmethylphenidate HCl Xr] 40 mg PO DAILY 01/19/16 ARIPiprazole [Abilify] 5 mg PO DAILY 08/10/18 Duloxetine HCl [Cymbalta] 120 mg PO DAILY 08/10/18 Hydroxychloroquine [Plaquenil] 200 mg PO BID 08/10/18 Levothyroxine [Synthroid] 50 mcg PO [id number] 08/10/18 Montelukast [Singulair] 10 mg PO DAILY 08/10/18 Nebivolol HCl [Bystolic] 10 mg PO BID 08/10/18 Omeprazole [Prilosec] 40 mg PO DAILY 08/10/18 Ondansetron [Zofran] 4 mg PO BEDTIME PRN 08/10/18 Prazosin HCl [Minipress] 3 mg PO BEDTIME 08/10/18 Rosuvastatin [Crestor] 5 mg PO DAILY 08/10/18 Sodium Oxybate [Xyrem] 4.5 gm PO BEDTIME 08/10/18 Ubidecarenone/Vitamin E [Co Q-10 50 mg Softgel] 1 each PO DAILY 08/10/18 Zolpidem Tartrate [Ambien] 10 mg PO BEDTIME 08/10/18 clonazePAM [Klonopin] 1 mg PO TIDP PRN 08/10/18 ursodioL [Actigall] 300 mg PO TID 08/10/18 Cyclosporine [Restasis] 1 drop OPTH BID 05/05/20 Furosemide [Lasix*] 80 mg PO BID 05/05/20 - Past Medical/Surgical History Diabetic: No -: depression -: reflux -: HLD -: HTN -: CKD 3 -: Sleep apnea -: RA -: narcolepsy on Xyrem -: anxiety -: hypothyroidism -: Asthma -: breast implants -: cholecystectomy -: hysterectomy -: carpal tunnel surgery - Family History Mother Medical History: Diabetes, Cancer Father Medical History: Heart disease, Other (see notes) Notes: asbestosis exposure, of mesothelioma - Social History Smoking Status: Unknown if ever smoked Alcohol use: Yes CD- Drugs: No Caffeine use: Yes Place of Residence: Home Review of Systems 10-point ROS is otherwise unremarkable General: Weakness Respiratory: Cough, Shortness of Breath Physical Examination Temp Pulse Resp BP Pulse Ox 96.9 F 57 18 131/64 93 05/05/20 07:51 05/05/20 10:10 05/05/20 07:51 05/05/20 10:10 05/05/20 07:51 General: Alert, In no apparent distress, Oriented x3 Neck: Supple Respiratory: Clear to auscultation bilaterally Cardiovascular: No edema, Regular rate/rhythm, Normal S1 S2 Gastrointestinal: Normal bowel sounds, Soft and benign Laboratory Data (last 24 hrs) 05/04/20 13:45: PT 13.2 H, INR 1.12, APTT 27.6 05/04/20 13:45: WBC 7.2 D, Hgb 15.1 H, Hct 44.0 D, Plt Count 168 05/04/20 13:45: Sodium 136, Potassium 3.8, BUN 15, Creatinine 1.20, Glucose 89, Total Bilirubin 0.5, AST 26, ALT 50, Alkaline Phosphatase 117, Amylase 36, Lipase 87 - Problems (1) COVID-19 virus infection Current Visit: Yes Status: Acute Plan: pt is 59 yrs of age with asthma and narcolepsy AW COVID 19 infection. Duing well. Hxof asthma CXRY mild ILD. Can D/C ricardo daniel pred 10 mg BID for 10 days. No Ab needed. NE of bacterial sepsis. ALbs rev. SAt's normal on RA. Add Advair VS stable,
[2020-05-05 13:28] VITALS: BP 114/64; TEMP 98.7
[2020-05-05] MEDS ORDERED: ursodioL 300 MG CAP PO SCH (14:00)
[2020-05-05] MEDS ORDERED: FUROSEMIDE 40 MG TABLET PO SCH (17:00)
--- NOTE | 2020-05-05 18:15 | EKG ---
Test Date: 2020-05-04 Test Time: 13:49:52 Personnel Worker: MIKEY MEASUREMENT RESULTS: Intervals: Rate: 84 MT: 158 QRSD: 82 QT: 344 QTc: 406 [place]: P: 51 MT: 158 QRS: 36 T: 50 INTERPRETIVE STATEMENTS: Normal sinus rhythm with sinus arrhythmia Normal ECG Compared to ECG 04/30/2020 20:40:20 T-wave abnormality no longer present Electronically Signed On 05-05-20 18:12:54 CDT by Elliott Moon
[2020-05-05] MEDS ORDERED: dexAMETHasone 10 MG/ML VIAL IV SCH (19:00)
[2020-05-05] MEDS ORDERED: SODIUM OXYBATE PO SCH (21:00)
[2020-05-05] MEDS ORDERED: HOME MED 1 EA UNK (Cyclosporine [Restasis] 1 DROP) OPTH SCH (21:00)
[2020-05-05] MEDS ORDERED: NEBIVOLOL HCL 5 MG TAB PO SCH ×2 (21:00)
[2020-05-05] MEDS ORDERED: ZOLPIDEM TARTRATE 10 MG TABLET PO SCH (21:00)
--- NOTE | 2020-05-05 23:43 | HP ---
Date of Admission: 05/04/2020 Chief Complaint: Fever, shortness of breath, cough. History Of Present Illness: This is a 59-year-old pleasant female patient with multiple medical problems, was diagnosed as having COVID-19 about 10 days ago. Patient has been having some cough with this, but in last 2-3 days she is having increasing symptoms with cough associated shortness of breath and fever. She came into emergency room. Her initial temperature was 102.9. After she was evaluated in the ER, her COVID test was repeated, chest x-ray, blood work were done and the patient was admitted to the hospital. Her oxygen saturation when she came into emergency room was 93%. I saw her in the emergency room. She was lying in bed not in distress. Allergies: TO PENICILLIN, TETRACYCLINE, CODEINE, NUCYNTA AND CEPHALEXIN. PENICILLIN CAUSING RASH AND CEPHALEXIN CAUSING RASH AND ITCHING. TETRACYCLINE CAUSING RASH. CODEINE CAUSING ITCHING AND NUCYNTA CAUSING RASH AND ITCHING. Medications: List reviewed. Review of Systems: Respiratory: As mentioned above. Constitutional: As mentioned above. All other systems reviewed and negative. Past Medical History: SIGNIFICANT FOR HYPOTHYROIDISM, ASTHMA, OBSTRUCTIVE SLEEP APNEA, HYPERTENSION, HYPERLIPIDEMIA, LEG EDEMA, CHRONIC KIDNEY DISEASE STAGE 2 TO STAGE 3, RHEUMATOID ARTHRITIS, THROMBOCYTHEMIA, DEPRESSION. Past Surgical History: Tonsillectomy, cholecystectomy, hysterectomy, removal of squamous cell carcinoma, and breast augmentation. Family History: Father due to mesothelioma. Brother with hyperlipidemia. Sister with hyperlipidemia and lupus. Social History: Negative for smoking and negative for alcohol use. Physical Examination: Vital Signs: Blood pressure 151/88, pulse 91, respiratory rate 20, temperature 102.9, oxygen saturation 93%. Weight 88 kg, height 5 feet 7 inches. General: Awake, alert, oriented, not in distress. HEENT: Head atraumatic, normocephalic. Conjunctivae nonerythematous. Sclerae white. Mouth, no thrush or edema noted. Ears/Nose, no mass, lesion, discharge noted. Neck: Supple. No JVD, lymph nodes, bruit, thyromegaly noted. Lungs: Bilateral good equal air entry. Clear to auscultation. No rhonchi. No rales. Heart: Normal heart sounds, no murmur or gallop. Abdomen: Soft, bowel sounds normal. No guarding, rigidity, tenderness, mass, hepatosplenomegaly, distention, or bruit noted. Extremities: No leg edema. No calf tenderness. Skin: No rash, ulcer, cellulitis. Lymphatics: No lymph node enlargement in neck, supraclavicular, infraclavicular region. Neuro: No focal neurological deficit. Chest: Unremarkable. External Genitalia: Deferred. Rectal: Deferred. Laboratory Data: White count 7.2, hemoglobin 15.1, platelets 168. Sodium 136, potassium 3.8, chloride 101, bicarb 25, BUN 15, creatinine 1.20, glucose 89. Liver function tests unremarkable. Lactic acid 1.4. Procalcitonin less than 0.05. Troponin less than 0.02. C-reactive protein 32.7, LDH 360. INR 1.12. Fibrinogen 473. Chest x-ray show some increase marking in the left lung base. Impression: 1. Coronavirus disease 2019 with lower respiratory tract infection. 2. Mild persistent asthma. 3. Hypertension. 4. Hypothyroidism. 5. Obstructive sleep apnea. 6. Hyperlipidemia. 7. Rheumatoid arthritis. 8. Depression. Plan: Patient will be admitted to the hospital for further evaluation, management of this problem. We will keep her in isolation for COVID19. Consult Dr. Hagen from Pulmonary. Home medications will be continued per order. We will continue oxygen. Monitor vital signs, oxygen saturation, and followup. Details of plan of treatment discussed with the patient. We will give IV steroid to oral dexamethasone as per order. Patient was taking IV Solu-Medrol which was prescribed to her during her recent ER visit since the diagnosis of COVID-19. INDER/MODL Voice ID: [id number] [facility]
--- NOTE | 2020-05-06 00:13 | DS ---
Date of Discharge: 05/05/2020 Disposition: Discharged to go home. Final Diagnoses: 1.Coronavirus disease 2019 with lower respiratory infection. 2.Mild persistent asthma. 3.Hypertension. 4.Hyperlipidemia. 5.Hypothyroidism. 6.Depression. 7.Obstructive sleep apnea. 8.Rheumatoid arthritis. 9.Depression. Hospital Course: A 59-year-old very pleasant female patient who was admitted to the hospital. Deysi corbin see dictated H and P for more information. Patient was diagnosed as having COVID-19 about 10-11 da ys ago and she came into emergency room with worsening of symptoms with cough, shortness of breath an d fever of 102.9 in the emergency room. After she was evaluated, she was admitted to the hospital. Overnight, she remained in isolation and her temperature has remained normal. This morning, no other complaints reported by her. Dr. Hagen evaluated her and after he evaluated, he noted the patient was stable for discharge. Medically, she was stable. I evaluated the patient today through telemed icine through video conferencing and details were discussed with her. Patient did not have any other new complaints. She appeared to be in no respiratory distress. Dr. Hagen recommended for minnie garcia to go home with oral prednisone and Advair type of inhaler and prescription was sent to her pharmac y. Patient was advised to continue all her previous home medication except steroid medication that s he was taking at home. She was instructed not to take that and to start a new prescription for predn isone was prescribed today. New medication includes 1.Prednisone 10 mg, patient to take 3 tablets by mouth daily for 3 days, then 2 tablets by mouth sanya ly for 3 days then 1 tablet by mouth daily for 3 days then stop. 2.Advair 250/50 one puff by mouth 2 times a day. 3.Patient to follow up at my office next week on Friday and the patient will call for appointment a nd I did call the patient's and details were discussed with him as well on the phone today. Patient's is asymptomatic. He informs me that he was tested negative already a week ago or s o and I have advised him to get retested next week. INDER/MODL Voice ID: [id number] Report ID: [id number]
[2020-05-06] MEDS ORDERED: LEVOTHYROXINE SOD 0.05 MG TABLET PO SCH (06:00)
[2020-05-06] MEDS ORDERED: MONTELUKAST 10 MG TAB PO SCH (09:00)
[2020-05-06] MEDS ORDERED: ARIPiprazole 5 MG TAB PO SCH (09:00)
[2020-05-06] MEDS ORDERED: PANTOPRAZOLE 40MG TABLET PO SCH (09:00)
[2020-05-06] MEDS ORDERED: ROSUVASTATIN 10 MG TAB PO SCH (09:00)
[2020-05-06] MEDS ORDERED: DULOXETINE 30 MG CAP PO SCH (09:00)
[2020-05-06] MEDS ORDERED: HOME MED 1 EA UNK (Omeprazole [Prilosec] 40 MG) PO SCH (09:00)
== END 2020-05-05 14:19 | disposition home or self-care (01) | DRG 178 ==
LOC: ER 13:09 → ERHOLD 15:21 → 4TH 20:42
PROVIDERS: ADMIT Internal Medicine; ATTEND Internal Medicine
PROC: 8E0ZXY6 Isolation (ICD-10-PCS; principal; 2020-05-04)
DX: U07.1 COVID-19 (principal); J84.9 Interstitial pulmonary disease, unspecified; J45.30 Mild persistent asthma, uncomplicated; E78.5 Hyperlipidemia, unspecified; E03.9 Hypothyroidism, unspecified; N18.3 Chronic kidney disease, stage 3 (moderate); I12.9 Hypertensive chronic kidney disease with stage 1 through stage 4 chronic kidney disease, or unspecified chronic kidney disease; F32.9 Major depressive disorder, single episode, unspecified; G47.33 Obstructive sleep apnea (adult) (pediatric); J22 Unspecified acute lower respiratory infection; K21.9 Gastro-esophageal reflux disease without esophagitis; M06.9 Rheumatoid arthritis, unspecified; Z88.5 Allergy status to narcotic agent; Z88.0 Allergy status to penicillin; Z90.49 Acquired absence of other specified parts of digestive tract; Z90.710 Acquired absence of both cervix and uterus; Z98.82 Breast implant status; Z91.040 Latex allergy status; Z79.890 Hormone replacement therapy; Z79.899 Other long term (current) drug therapy
CPT/HCPCS: 36415; 71045; 80048; 80076; 82150; 82550; 82553; 82728; 83605; 83615; 83690; 84145; 84484; 85025; 85384; 85610; 85730; 86140; 87040; 93005; 94760; 96365; 99285; J1100; U0002

== ENCOUNTER 2020-05-15 14:41 | Emergency (ER) | payer BC, OTHER ==
--- OUTSIDE RECORDS SUMMARY | 2020-05-15 16:18 | XMS REPORT | Clinical Summary ---
:1960 Author Organization [facility] Address [address] [place] [address] Care Team Providers Name Role Phone Gio [...] Telephone General Surgery Yesenia Lacy MA after 05/15/2019 Family History Medical History Relation Name Comments [...] Comments Blood Pressure 147/74 09/29/2019 8:10 AM LIAISON ENGINEER Pulse 68 09/29/2019 8:10 AM LIAISON ENGINEER Temperature 36.3 C (97.4 F) 09/29/2019 8:10 AM LIAISON ENGINEER Respiratory Rate - - Oxygen Saturation - - Inhaled Oxygen Concentration - - Weight - - Height - - Body Mass Index - - Plan of Treatment Health Maintenance Due Date Last Done Comments COLONOSCOPY SCREENING 2010 SHINGLES VACCINES (#1) 2010 BREAST CANCER SCREENING 11/10/2015 11/10/2013 INFLUENZA VACCINE 06/10/2020 08/24/2019 CERVICAL CANCER SCREENING 03/30/2022 03/30/2019, 11/10/2013 Results Not on fileafter 05/15/2019 Advance Directives For more information, please contact: [phone] Type Date Recorded Patient Safety Analyst Explanati on Advance Directives, Living Will 01/22/2017 9:47 AM and Medical Power of Rn Circulating Code Status Date Activated Date Inactivated Comments Full Code 01/22/2017 6:05 PM 01/24/2017 7:39 PM Code Status decision reached by: Patient
--- OUTSIDE RECORDS SUMMARY | 2020-05-15 16:20 | XMS REPORT | Continuity of Care Document ---
:1960 Author Organization [facility] t Address [address] [place] [address] Care Team Providers Name Role Phone Gio Garcia MD Primary Care Physician YESY Attending Clinician Unavailable Daniel Ceja MD Attending Clinician JACQUELIN Attending Clinician Unavailable Regino CASTRO Attending Clinician Unavailable MIKE Attending Clinician Unavailable Payers Payer Name Policy Type Policy Number Effective Date Expiration Date S ree [id number] xxxxxxxxxxxx 2015 [place] CHOICE 00:00:00 [facility] PPO/[employer] PPOxxxxxxxxxxx x1 2014-Pre sentPPO Problems Condition Condition Condition Status Onset Resolution Last Treating Co mments Source Name Details Category Date Date Treatment Clinician Date Palpitatio Palpitatio Disease Active [place] ns 9-18 Methodi 00:00: st 00 SOB SOB Disease Active [place] (shortness (shortness 4-07 Me thodi of breath) of breath) 00:00: st 00 Tachycardi Tachycardi Disease Active [place] a a 3-15 Methodi 00:00: st 00 Disorder Disorder Disease Active [place] of liver of liver 3-15 Method i 00:00: st 00 Internal Internal Disease Active [place] hemorrhoid hemorrhoid - Me thodi s s 00:00: st 00 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 PTSD PTSD Disease Active [place] (post-trau (post-trau 03-08 Me thodi matic matic 00:00: st stress stress 00 disorder) disorder) HLD HLD Disease Active [place] (hyperlipi (hyperlipi 03-08 Me thodi demia) demia) [...] Resolve Univers pneumonia pneumonia d [facility]y of [place] Physici ans History of History of Problem Resolve Univers psychiatri psychiatri d it y of c c [place] treatment treatment Phys ici ans History of [...] Univers lower lower ity of quadrant quadrant [place] abdominal abdominal Phys ici tenderness tenderness an s Vaginal Vaginal Problem Active Univers discharge discharge ity of [place] Physici ans Breast Breast Problem Active Univers mass mass ity of [place] [facility] ans Incontinen Incontinen Problem Active U nivers ce in ce in ity of female female [place] Physici ans Mixed Mixed Problem Active Univers stress and stress and it y of urge urge [place] urinary urinary Physici incontinen incontinen an s [...] [place] [facility] GERD GERD Disease Active [place] (gastroeso (gastroeso Me thodi phageal phageal st [...] Univers porins to drug ity of (finding [place] ) Physici ans Codeine Allergy Active Univers Derivati to drug ity of ves (finding [place] ) Physici ans Penicill Allergy Active Univers ins to drug ity of (finding [place] ) Physici ans tetracyc Allergy Active Univers line to drug ity of (finding [place] ) Physici ans Latex Allergy Active Univers to ity of substanc [place] e Physici (finding ans ) Family History Family Member Diagnosis Comments Start Date Stop Date Source Mother Family history of Univers ity of diabetes mellitus [place] P hysicians Father Family history of Univers ity of Mesothelioma [place] Physic ians Brother Family history of Univers ity of malignant melanoma [place] [facility] Brother Family history of Univers ity of hypertension [place] Physic ians Sister Family history of Univers ity of hypertension [place] Physic ians Natural brother Drug abuse [place] M ethodist Natural father Cancer [place] Me thodist Maternal Diabetes [place] Method ist grandfather Natural mother Depression [place] Me thodist Paternal COPD [place] Method ist grandfather Paternal Hypertension [place] Meth odist grandmother Social History Social Habit Start Date Stop Date Quantity Comments Source Sex Assigned At [place] M ethodist Exposure to Yes [facility] SARS-CoV-2 (event) Alcohol intake 2019-09-29 2019-09-29 Current [place] Me thodist 00:00:00 00:00:00 non-drinker of alcohol (finding) Smoking Status Start Date Stop Date Source Never smoker [place] Methodis t Medications Ordered Filled Start Stop Current Ordering Indication Dosage Frequency Signature Comments Components Source Medication Medication Date Date Medication? Clinician (SIG) Name Name Nystatin-Tr Nystatin-Tr Yes SUBHRATHA APPLY Univers [facility] iainolone 605 YESY SPARINGLY ity of 652726-3.1 462231-3.1 00:00: M.D. TO [place] UNIT/GM-% UNIT/GM-% [...] ton enidate XR 8-27 CAPSULE BY Met jose fi (FOCALIN 00:00: MOUTH st XR) 20 MG [...] PTCH 9-12 affected l 00:00: area 12h [place] 00 on 12h off per 24h prn [...] Yes Uni vers TABS TABS [facility] [place] [facility] Xyrem SOLN Xyrem SOLN Yes Uni vers it[facility] [place] [facility] ans Co Q 10 Co Q [...] Oral MG Oral ity of Tablet Tablet [place] Physici ans Dexmethylph Dexmethylph Yes U nivers enidate HCl enidate HCl i ty of ER 40 MG ER 40 MG [place] Oral Oral Physici Capsule Capsule ans Extended Extended Release 24 Release 24 Hour Hour clonazePAM clonazePAM Yes Uni vers 1 MG Oral 1 MG Oral ity o f Tablet Tablet [place] Physici ans Hydroxychlo Hydroxychlo Yes U nivers roquine roquine ity of Sulfate 200 Sulfate 200 [place] MG Oral MG Oral Physici Tablet Tablet ans Ondansetron Ondansetron Yes U nivers HCl - 4 MG HCl - 4 MG ity of Oral Tablet Oral Tablet [place] Physici ans Urodol TABS Urodol TABS Yes U nivers it[facility] of [place] Physici ans Vital Signs Vital Name Observation Time Observation Value Comments Source Systolic blood 2020-04-14 138 mm[Hg] Location: [facility] 08:32:00 Position: [place] Physician s Sitting Diastolic blood 2020-04-14 77 mm[Hg] Location: [facility] 08:32:00 Position: [place] Physician s Sitting Body height 2020-04-14 67 [in_us] [facility] 08:32:00 [place] Physician s Weight 2020-04-14 200 [lb_av] [facility] 08:32:00 [place] Physician s Body mass index 2020-04-14 31.32 kg/m2 University o f (BMI) [Ratio] 08:32:00 [place] Physicia ns Body temperature 2020-04-14 97.8 [degF] Method: [facility] 08:32:00 Temporal [place] Physician s Heart Rate 2020-04-14 70 /min [facility] 08:32:00 [place] Physician s Systolic blood 2019-09-29 147 mm[Hg] [place] pressure 08:10:00 [facility] Diastolic blood 2019-09-29 74 mm[Hg] [place] pressure 08:10:00 [facility] Heart rate 2019-09-29 68 /min [place] 08:10:00 [facility] Body temperature 2019-09-29 36.33 Kaylynn [place] 08:10:00 [facility] BP Systolic 2019-08-18 136 mm[Hg] Location: [facility] 15:52:00 Position: [place] Physician s Sitting BP Diastolic 2019-08-18 80 mm[Hg] Location: [facility] 15:52:00 Position: [place] Physician s Sitting Height 2019-08-18 67 [in_us] [facility] 15:52:00 [place] Physician s Weight 2019-08-18 216.375 [lb_av] University o 15:52:00 [place] Phys[facility] s Body Mass Index 2019-08-18 33.89 kg/m2 University o f Calculated 15:52:00 [place] Physician s Temperature 2019-08-18 98.7 [degF] University 15:52:00 [place] Physician s BP Systolic 2019-08-09 119 mm[Hg] Location: [facility] 10:10:00 Position: [place] Physician s Sitting BP Diastolic 2019-08-09 74 mm[Hg] Location: [facility] 10:10:00 Position: [place] Physician s Sitting Height 2019-08-09 67 [in_us] University 10:10:00 [place] Physician s Weight 2019-08-09 214.375 [lb_av] University o f 10:10:00 [place] [facility] s Body Mass Index 2019-08-09 33.58 kg/m2 University o f Calculated 10:10:00 [place] Physician s Weight 2014-07-22 Radha Casean n 13:35:31 Height 2014-07-22 [facility] Jairon n 13:35:31 Temperature Oral 2014-07-22 96.4 F [facility] Aidan moseley (F) 13:35:31 Respitory Rate 2014-07-22 [facility] Evie grady 13:35:31 Heart Rate 2014-07-22 [facility] Jairon n 13:35:31 Systolic (mm Hg) 2014-07-22 [facility] He rmann 13:35:31 Diastolic (mm Hg) 2014-07-22 [facility] H ermann 13:35:31 Procedures Procedure Date / Time Performing Clinician Source Performed [QL] TSH, 3RD GENERATION 2020-04-14 [facility]00[facility] [QL] PROLACTIN 2020-04-14 00:00:00 [facility] [place] [facility] MA Digital Mammo DX Elbert w 2020-04-14 00:00:00 U [facility] ed [id number] [place] [id number] 2019-08-23 00:00:00 Unive [facility] Physicians [QLH] CULTURE, URINE, 2019-08-18 00:00:00 [facility] ROUTINE Physicians MA Digital Mammo DX Elbert 2019-08-13 00:00:00 Univ [facility] [id number] Physicians US Breast Bilat [id number] 2019-08-13 00:00[facility] Digital Mammo Screening 2019-08-09 00:00:00 U [facility] Elbert G0202 Physicians US Pelvis with Pelvis 2019-08-09 00:00:00 [facility] Transvaginal [id number] Physicians . [facility] - Affirm VPIII 2019-08-09 00:00:00 [facility] (BV Panel) Physicians . [facility] - GC/Chlamydia 2019-08-09 00:00:00 Univ [facility] Physicians History of Total Abdominal Unive [facility] Hysterectomy Physicians History of Breast [facility] augmentation Physicians [facility] calcane[facility] for spur Physicians History of Tonsillectomy Univers [facility] Physicians History of Adenoidectomy [facility] Physicians History of Cholecystectomy Unive [facility] Physicians History of Shoulder [facility] o [facility] [place] [facility] Physicians History of Complete University o [facility] Colonoscopy Physicians History of Colonic [facility] polypectomy Physicians Plan of Care Planned Activity Planned Date Details Comments Source Future Scheduled 2022-03-30 Screening for [facility] thodist Test 00:00:00 malignant neoplasm of cervix (procedure) [code = 654963174] Future Scheduled 2020-06-10 INFLUENZA VACCINE [place] [facility] Test 00:00:00 [code = INFLUENZA VACCINE] Future Scheduled 2015-11-10 BREAST CANCER [place] thodist Test 00:00:00 SCREENING [code = BREAST CANCER SCREENING] Future Scheduled 2010 COLONOSCOPY SCREENING Rex murillo [facility] Test 00:00:00 [code = COLONOSCOPY SCREENING] Future Scheduled 2010 SHINGLES VACCINES [place] [facility] Test 00:00:00 (#1) [code = SHINGLES VACCINES (#1)] Encounters Start End Encounter Admission Attending Care Care Encounter Source Date/Time Date/Time Type Type Clinicians Facility Department ID 2020-04-14 2020-04-14 Appointmen FERNANDO HAYWARD [facility] [id number] Univers 08:30:00 08:30:00 t; Sonia FRAZIER M.D. [place] SUBHRATHA, Physi ci M.D. ans 2019-09-16 2019-09-16 Appointmen FERNANDO ROPER [facility] [id number] Univers 09:50:00 09:50:00 t; ELIOT ROPER [facility] M.D. Physici ans 2019-09-15 2019-09-15 Appointmen FERNANDO ROPER [facility] [id number] Univers 11:20:00 11:20:00 t; ELIOT ROPER ity of [place], M.D. [place] M.D. Physici ans 2019-08-18 2019-08-18 Appointmen FERNANDO ROPER Urogynecolo [id number] Univers 15:40:00 15:40:00 t; ELIOT ROPER gy Center - ity [facility] [place], [place].D. [place] M.D. Physici ans 2019-08-09 2019-08-09 Appointmen FERNANDO MCKEON [facility] [id number] Univers 10:30:00 10:30:00 t; LUCAS MCKEON M.D. Center Kristi Padilla M.D. Physici ans Results Test Description Test Time Test Comments Results Result Sourc e Comments US Pelvis with 2019-08-10 STUDY: Pelvis w Unive rsity of Pelvis 4 Pelvis Transvaginal [place] Transvaginal 09:51:00 USCOMPARISON: Physician s [id number] None.HISTORY: - Right lower quadrant abdominal tenderness.FINDINGS: Transvaginal and transabdominal ultrasound images of the pelvis were obtained.Uterus: Has been removed.Ovaries: Have been removed.Pelvic fluid: None.IMPRESSION:Stat us post hysterectomy and bilateral salpingooophorectomy .Otherwise no significant abnormality.--Read by: Dixie Lewis MDDictated Date/time: 08/23/19 10:39Electronically Signed by: Dixie Lewis MD 08/23/1910:40FINAL [place]PORT [place] Breast [id number] 2019-08-10 COMPLETE ULTRASOUND [place] [id number] OF LEFT BREAST AND [place] 08:22:00 AXILLA: Physicians 08/23/2019CLINICAL: /N63.0 Unspecified Lump In Unspecified Breast. COMPARISON:Compariso n is made to exam dated: 08/23/2019 mammogram - [facility] [place] [facility]. TECHNIQUE: Color flow and real-time ultrasound [...] of Diagnostic Imaging.Bashir Esparza M.D. levi/:08/23/2019 09:14:30 Professor Of Special Education(s): Alyx Almaraz RDMS, [place] [facility] Imagingletter sent: BI-RADS 1/2 Ultrasound BI-RADS: 2 [...] recommended. Professional services are provided by the [facility] Son DexterDivision of Diagnostic Imaging.Bashir Esparza M.D. levi/:08/23/2019 09:13:09 Professor Of Special Education(s): [facility] ImagingMammogram BI-RADS: 0 Indeterminate--Read by: Bashir Esparzaictated Date/time: 08/23/19 09:13Electronically Signed by: Bashir Esparza MD 08/23/1909:13FINAL REPORT [[facility]] CULTURE, URINE, ROUTINE 2019-08-18 16:33:01 Test Item Value Reference Range Interpretation Comme nts FINAL REPORT (test code = FINAL REPORT) No Growth [facility] Physicians[O] Urine Dipstick (In Office)2019-08-18 16:32:00 Test Item Value Reference Range Interpretation Comments Glucose (test code = Glucose) neg N LEUKOCYTES (test code = LEUKOCYTES) neg N NITRITE; Normal (test code = 72355-1) neg N UROBILINOGEN; Normal (test code = 0.2 N 77862-8) PROTEIN; Normal (test code = 95448-5) neg N pH (test code = pH) 7.5 N URINE BLOOD; Normal (test code = neg N 05417-0) SPECIFIC GRAVITY; Normal (test code = 1.020 N 2965-2) KETONES; Normal (test code = 28137-0) neg N BILIRUBIN; Normal (test code = 28210-4) neg N [facility] Physicians. [facility] - Affirm VPIII (BV Panel)2019-08-09 00:00:00 Test Item Value Reference Range Interpretation Comments Affirm VPIII (BV Panel) REPORT See Comment (test code = Affirm VPIII (BV Panel) REPORT) [facility] Physicians. [facility] - GC/[id number] 00:00:00 Test Item Value Reference Range Interpretation Comments GC REPORT (test code = GC REPORT) Negative Chlamydia REPORT (test code = Negative 05443-6) [facility] Physicians
[2020-05-15] MEDS ORDERED: ONDANSETRON 4 MG/2 ML VIAL ONE (18:25)
[2020-05-15] MEDS ORDERED: FENTANYL CITR 100 MCG/2 ML ONE (18:25)
[2020-05-15 18:47] LABS: Absolute Lymphocytes (CBC) 1.8 K/uL (0.7-4.9); Basophils % 1.1 % (0-1.3); Hematocrit 40.7 % (36.0-45.0); Lymphocytes % 31.4 % (15.3-44.8); RBC Red Blood Cell Count 4.32 M/uL (3.86-4.86)
[2020-05-15 18:56] LABS: Protime INR 0.88
[2020-05-15 19:15] LABS: BUN Blood Urea Nitrogen 17 mg/dL (7-18); Bicarbonate 31 mmol/L (21-32); Glucose Level 93 mg/dL (74-106); NT PRO-BNP 40 pg/mL (<125); Potassium 4.1 mmol/L (3.5-5.1); Sodium Level 142 mmol/L (136-145); Troponin (Emerg Dept Use Only) < 0.02 ng/mL (0.0-0.045)
--- NOTE | 2020-05-15 19:54 | RAD REPORT ---
EXAM DESCRIPTION: RAD - Chest Single View - 05/15/2020 7:43 pm CLINICAL HISTORY: CHEST PAIN COMPARISON: Portable May 05 TECHNIQUE: AP portable chest image was obtained 05/15/2020 7:43 pm . FINDINGS: Lung volumes are relatively low. No dense mass or consolidation. The patchy alveolar opaci ty seen on the May 05 study are partially resolved. No progressive process. No failure or volume ove rload. Heart size is upper normal. Vasculature within normal limits. No measurable pleural effusion and no pneumothorax. No acute bony abnormality seen. No acute aortic findings suspected. IMPRESSION: Limited low lung volume examination shows partial resolution of the lung parenchymal opa city seen May 05. No new or progressive finding identifiable.
--- NOTE | 2020-05-15 20:16 | RAD REPORT ---
EXAM DESCRIPTION: CT - Chest For Pe Angio - 05/15/2020 8:08 pm CLINICAL HISTORY: Chest pain;Dyspnea, history of 2 positive COVID-19 tests April 21 and April 29 COMPARISON: Chest For Pe Angio dated 08/03/2019; Chest Single View dated 05/15/2020; Chest Single View dated 05/05/2020; Chest Single View dated 05/04/2020 TECHNIQUE: Dynamically enhanced 3 mm thick images of the chest were obtained during administration o f approximately 150mL Isovue 370 IV contrast. Coronal and oblique MIP reconstruction images were gene rated and reviewed. Exam utilizes a protocol to evaluate the pulmonary arterial tree. All CT scans are performed using dose optimization technique as appropriate and may include automated exposure control or mA/KV adjustment according to patient size. FINDINGS: No pulmonary emboli are identified. The aorta as imaged shows no acute or suspicious finding. No pericardial thickening or effusion. Scattered ground-glass opacities are present in the mid and lower lung draper. Upper lung draper are mostly spared. No dense consolidation. Lung parenchymal pattern is consistent with a COVID-19 pneumon ia. No pleural effusion or pleural thickening. Small mediastinal and hilar reactive type lymph nodes are present. No chest wall masses or abnormal a xillary lymphadenopathy. Bilateral breast implants in place. No acute bone findings seen. IMPRESSION: No pulmonary emboli identified. Mid and lower lung field bilateral airspace opacities consistent with COVID-19 pneumonia. Bilateral hilar lymphadenopathy typical for reactive lymph nodes.
--- NOTE | 2020-05-15 20:43 | ER ---
Nurse's Notes [facility] Name: Lydia Hanson Age: 59 yrs Sex: Female : 1960 Arrival Date: 05/15/2020 Time: 14:45 Bed 15 Private MD: Santosh Garcia C Diagnosis: Pleurisy Presentation: 05/15 15:02 Chief complaint: Patient states: SOB x 36 hours ago, reports she had pneumonia a few sv weeks ago. "I feel like something is stabbing me in the left side. I think I have pleurisy." c/o non-productive cough, fever Tmax 100.8. Coronavirus screen: Prior COVID test collected on: 04/21/20, COVID +, tested here again on 04/29/20 and was still +. Maude Adler. Ebola Screen: No symptoms or risks identified at this time. Risk Assessment: Do you want to hurt yourself or someone else? Patient reports no desire to harm self or others. Onset of symptoms was May 13, 2020. 15:02 Method Of Arrival: Ambulatory sv 15:02 Acuity: RIA 3 sv 15:06 Initial Sepsis Screen: Does the patient meet any 2 criteria? No. Patient's initial sv sepsis screen is negative. Does the patient have a suspected source of infection? No. Patient's initial sepsis screen is negative. Historical: - Allergies: 15:06 CEPHALOSPORINS; sv 15:06 Codeine; sv 15:06 Latex, Natural Rubber; sv 15:06 PENICILLINS; sv 15:06 TETRACYCLINES; sv - PMHx: 15:06 Depression; Sleep Apnea; Hyperlipidemia; Thyroid problem; Hypertension; narcolepsy; sv V-tach; - Immunization history:: Adult Immunizations up to date. - Social history:: Smoking status: Patient denies any tobacco usage or history of. Screenin:27 Abuse screen: Denies threats or abuse. Denies injuries from another. Nutritional ca1 screening: No deficits noted. Tuberculosis screening: No symptoms or risk factors identified. Fall Risk IV access (20 points). Assessment: 17:35 General: Appears in no apparent distress. comfortable, Behavior is calm, cooperative, ca1 appropriate for age. Pain: Complains of pain in right lateral posterior chest and right lateral anterior chest Pain radiates to back Pain currently is 6 out of 10 on a pain scale. Pain began 2-3 days ago. Is intermittent. Neuro: Level of Consciousness is awake, alert, obeys commands, Oriented to person, place, time, situation, Appropriate for age. Cardiovascular: Heart tones S1 S2 present Capillary refill < 3 seconds Patient's skin is warm and dry. Rhythm is. Respiratory: Reports shortness of breath at rest cough that is Airway is patent Respiratory effort is even, unlabored, Respiratory pattern is regular, symmetrical, Breath sounds are clear bilaterally. GI: Abdomen is round non-distended, Bowel sounds present X 4 quads. Abd is soft and non tender X 4 quads. : No signs and/or symptoms were reported regarding the genitourinary system. EENT: No signs and/or symptoms were reported regarding the EENT system. Derm: Skin is intact, is healthy with good turgor, Skin is pink, warm \\T\\ dry. Musculoskeletal: Circulation, motion, and sensation intact. Capillary refill < 3 seconds. 18:30 Reassessment: Patient appears in no apparent distress at this time. Patient and/or ca1 family updated on plan of care and expected duration. Pain level reassessed. Patient is alert, oriented x 3, equal unlabored respirations, skin warm/dry/pink. 19:06 Reassessment: CRITICAL LAB: [id number]. Notified provider. ca1 20:13 Reassessment: Patient appears in no apparent distress at this time. Patient and/or ca1 family updated on plan of care and expected duration. Pain level reassessed. Patient is alert, oriented x 3, equal unlabored respirations, skin warm/dry/pink. 21:03 Reassessment: Patient appears in no apparent distress at this time. Patient is alert, ca1 oriented x 3, equal unlabored respirations, skin warm/dry/pink. Vital Signs: 15:06 BP 116 / 81; Pulse 80; Resp 20; Temp 98.7(O); Pulse Ox 99% ; Weight 87.09 kg; Height 5 sv ft. 7 in. (170.18 cm); 18:30 BP 104 / 69; Pulse 70; Resp 18 S; Pulse Ox 95% on R/A; ca1 19:30 BP 119 / 66; Pulse 64; Resp 15 S; Pulse Ox 96% on R/A; ca1 20:13 BP 104 / 55; Pulse 66; Resp 14 S; Pulse Ox 99% on R/A; ca1 21:03 BP 116 / 67; Pulse 75; Resp 15 S; Pulse Ox 100% on R/A; ca1 15:06 Body Mass Index 30.07 (87.09 kg, 170.18 cm) sv ED Course: 14:45 Patient arrived in ED. as 14:45 Santosh Garcia MD is Private Physician. as 15:02 Arm band placed on. sv 15:05 Triage completed. sv 17:25 David Landaverde PA is PHCP. jr8 17:25 Cipriano Resendez MD is Attending Physician. jr8 17:26 Anastasiya Gee, MARITA is Primary Nurse. ca1 17:27 Patient has correct armband on for positive identification. Placed in gown. Bed in low ca1 position. Call light in reach. Side rails up X 1. pvc monitor on. Pulse ox on. NIBP on. Warm blanket given. 18:18 No provider procedures requiring assistance completed. Initial lab(s) drawn, by ok, ca1 sent to lab. Inserted saline lock: 20 gauge in right antecubital area, using aseptic technique. Blood collected. 19:43 XRAY Chest (1 view) In Process Unspecified. EDMS 20:08 CT Chest For PE Angio In Process Unspecified. EDMS 20:42 Santosh Garcia MD is Referral Physician. jr8 21:03 IV discontinued, intact, bleeding controlled, No redness/swelling at site. Pressure ca1 dressing applied. Administered Medications: 18:20 Drug: Zofran (Ondansetron) 4 mg Route: IVP; Site: right antecubital; ca1 19:30 Follow up: Response: No adverse reaction; Nausea is decreased ca1 18:22 Drug: fentaNYL (PF) 50 mcg {Note: rass 0.} Route: IVP; Site: right antecubital; ca1 19:30 Follow up: Response: No adverse reaction; Pain is decreased; RASS: Alert and Calm (0) ca1 Outcome: 20:43 Discharge ordered by . jr8 21:03 Discharged to home ambulatory. ca1 21:03 Condition: stable 21:03 Discharge instructions given to patient, Instructed on discharge instructions, follow up and referral plans. no drinking with medication, no driving heavy equipment, medication usage, Demonstrated understanding of instructions, follow-up care, medications, Prescriptions given X 1. 21:04 Patient left the ED. ca1 Signatures: Dispatcher [employer] Cortney Smith, MARITA RN Luzmaria Diaz Josh, PA PA jr8 Anastasiya Gee RN RN ca1
--- NOTE | 2020-05-15 20:44 | EDPHYS ---
Physician Documentation [facility] Name: Lydia Hanson Age: 59 yrs Sex: Female : 1960 Arrival Date: 05/15/2020 Time: 14:45 Bed 15 Private MD: Santosh Garcia C ED Physician Cipriano Resendez HPI: 05/15 18:26 This 59 yrs old Female presents to ER via Ambulatory with complaints of Lung jr8 Pain, Shortness Of Breath. 18:26 The patient or guardian reports chest pain that is located primarily in the anterior jr8 chest wall, left. Onset: gradually, 2 day(s) ago. The pain does not radiate. Associated signs and symptoms: Pertinent positives: shortness of breath. The chest pain is described as burning, stabbing. Duration: The patient or guardian reports multiple episodes, that are intermittent. Modifying factors: The symptoms are alleviated by nothing. the symptoms are aggravated by deep breath. Severity of pain: At its worst the pain was moderate in the emergency department the pain is unchanged. The patient has not experienced similar symptoms in the past. The patient has been recently seen by a physician:. Patient admitted last week for Shortness of breath secondary to COVID 19. Stated that she has been doing better but now having significant chest pain on left side. Historical: - Allergies: 15:06 CEPHALOSPORINS; sv 15:06 Codeine; sv 15:06 Latex, Natural Rubber; sv 15:06 PENICILLINS; sv 15:06 TETRACYCLINES; sv - PMHx: 15:06 Depression; Sleep Apnea; Hyperlipidemia; Thyroid problem; Hypertension; narcolepsy; sv V-tach; - Immunization history:: Adult Immunizations up to date. - Social history:: Smoking status: Patient denies any tobacco usage or history of. ROS: 18:26 Eyes: Negative for injury, pain, redness, and discharge, ENT: Negative for injury, jr8 pain, and discharge, Neck: Negative for injury, pain, and swelling, Abdomen/GI: Negative for abdominal pain, nausea, vomiting, diarrhea, and constipation, Back: Negative for injury and pain, MS/Extremity: Negative for injury and deformity, Skin: Negative for injury, rash, and discoloration, Neuro: Negative for headache, weakness, numbness, tingling, and seizure. 18:26 Cardiovascular: Positive for chest pain, Negative for edema, orthopnea, palpitations, paroxysmal nocturnal dyspnea. 18:26 Respiratory: Positive for shortness of breath. Exam: 18:29 Eyes: Pupils equal round and reactive to light, extra-ocular motions intact. Lids and jr8 lashes normal. Conjunctiva and sclera are non-icteric and not injected. Cornea within normal limits. Periorbital areas with no swelling, redness, or edema. ENT: Nares patent. No nasal discharge, no septal abnormalities noted. Tympanic membranes are normal and external auditory canals are clear. Oropharynx with no redness, swelling, or masses, exudates, or evidence of obstruction, uvula midline. Mucous membranes moist. Neck: Trachea midline, no thyromegaly or masses palpated, and no cervical lymphadenopathy. Supple, full range of motion without nuchal rigidity, or vertebral point tenderness. No Meningismus. Cardiovascular: Regular rate and rhythm with a normal S1 and S2. No gallops, murmurs, or rubs. Normal PMI, no JVD. No pulse deficits. Respiratory: Lungs have equal breath sounds bilaterally, clear to auscultation and percussion. No rales, rhonchi or wheezes noted. No increased work of breathing, no retractions or nasal flaring. Abdomen/GI: Soft, non-tender, with normal bowel sounds. No distension or tympany. No guarding or rebound. No evidence of tenderness throughout. Back: No spinal tenderness. No costovertebral tenderness. Full range of motion. Skin: Warm, dry with normal turgor. Normal color with no rashes, no lesions, and no evidence of cellulitis. MS/ Extremity: Pulses equal, no cyanosis. Neurovascular intact. Full, normal range of motion. Neuro: Awake and alert, GCS 15, oriented to person, place, time, and situation. Cranial nerves II-XII grossly intact. Motor strength 5/5 in all extremities. Sensory grossly intact. Cerebellar exam normal. Normal gait. 18:29 Chest/axilla: Palpation: tenderness, that is mild, of the anterior aspect of left upper chest, left lateral anterior chest and left breast, that does not reproduce the patient's complaints. Vital Signs: 15:06 BP 116 / 81; Pulse 80; Resp 20; Temp 98.7(O); Pulse Ox 99% ; Weight 87.09 kg; Height 5 sv ft. 7 in. (170.18 cm); 18:30 BP 104 / 69; Pulse 70; Resp 18 S; Pulse Ox 95% on R/A; ca1 19:30 BP 119 / 66; Pulse 64; Resp 15 S; Pulse Ox 96% on R/A; ca1 20:13 BP 104 / 55; Pulse 66; Resp 14 S; Pulse Ox 99% on R/A; ca1 21:03 BP 116 / 67; Pulse 75; Resp 15 S; Pulse Ox 100% on R/A; ca1 15:06 Body Mass Index 30.07 (87.09 kg, 170.18 cm) sv MDM: 17:27 Patient medically screened. jr8 20:21 Data reviewed: vital signs, nurses notes, lab test result(s), EKG, radiologic studies, [facility] CT scan, plain films, and as a result, I will discharge patient. Data interpreted: Pulse oximetry: on room air is 99 %. Interpretation: normal. Counseling: I had a detailed discussion with the patient and/or guardian regarding: the historical points, exam findings, and any diagnostic results supporting the discharge/admit diagnosis, lab results, radiology results, the need for outpatient follow up, a family practitioner, to return to the emergency department if symptoms worsen or persist or if there are any questions or concerns that arise at home. ED course: Discussed case with Dr. Garcia. Both of us agree patient is able to go home and stable to go home. Will have her f/u. If worse knows to come back . 05/15 18:02 Order name: Basic Metabolic Panel; Complete Time: 19:38 05/15 18:02 Order name: CBC with Diff; Complete Time: 18:54 05/15 18:02 Order name: NT PRO-BNP; Complete Time: 19:38 05/15 18:02 Order name: Troponin (emerg Dept Use Only); Complete Time: 19:38 05/15 18:28 Order name: DD; Complete Time: 19:13 05/15 18:02 Order name: XRAY Chest (1 view); Complete Time: 20:06 05/15 18:02 Order name: EKG; Complete Time: 18:03 05/15 18:02 Order name: Cardiac monitoring; Complete Time: 18:56 05/15 18:02 Order name: EKG - Nurse/Tech; Complete Time: 18:56 [facility] 05/15 18:50 Order name: Protime (+INR); Complete Time: 19:13 [facility] 05/15 19:13 Order name: CT Chest For PE Angio; Complete Time: 20:18 [facility] 05/15 18:02 Order name: IV Saline Lock; Complete Time: 18:56 [facility] 05/15 18:02 Order name: Labs collected and sent; Complete Time: 18:56 [facility] 05/15 18:02 Order name: O2 Per Protocol; Complete Time: 18:56 [facility] 05/15 18:02 Order name: O2 Sat Monitoring; Complete Time: 18:56 [facility] Administered Medications: 18:20 Drug: Zofran (Ondansetron) 4 mg Route: IVP; Site: right antecubital; ca1 19:30 Follow up: Response: No adverse reaction; Nausea is decreased ca1 18:22 Drug: fentaNYL (PF) 50 mcg {Note: rass 0.} Route: IVP; Site: right antecubital; ca1 19:30 Follow up: Response: No adverse reaction; Pain is decreased; RASS: Alert and Calm (0) ca1 Disposition: 05/15/20 20:43 Discharged to Home. Impression: Pleurisy. - Condition is Stable. - Discharge Instructions: Pleurisy. - Prescriptions for Tramadol 50 mg Oral Tablet - take 1 tablet by ORAL route every 8 hours as needed; 20 tablet. - Medication Reconciliation Form, Thank You Letter, Antibiotic Education, Prescription Opioid Use form. - Follow up: Santosh Garcia MD; When: 7 - 10 days; Reason: Recheck today's complaints, Continuance of care, Re-evaluation by your physician. - Problem is new. - Symptoms have improved. Addendum: 05/18/2020 06:01 Co-signature as Attending Physician, Cipriano Resendez MD I agree with the assessment and c short plan of care. Signatures: Dispatcher [employer] [facility] Cortney Mena, RN RN Cipriano Mosquera MD MD cha Roszak, Josh, PA PA jr8 Anastasiya Gee RN RN ca1 Corrections: (The following items were deleted from the chart) 05/15 18:52 18:03 PROTIME (+INR)+COAG.LAB.BRZ ordered. EDMS EDMS 21:04 20:43 05/15/2020 20:43 Discharged to Home. Impression: Pleurisy. Condition is Stable. ca1 Forms are Medication Reconciliation Form, Thank You Letter, Antibiotic Education, Prescription Opioid Use. Follow up: Santosh Garcia; When: 7 - 10 days; Reason: Recheck today's complaints, Continuance of care, Re-evaluation by your physician. Problem is new. Symptoms have improved. jr8
[2020-05-15 21:15] VITALS: TEMP 98.7
[2020-05-15 21:36] VITALS: BP 116/67; O2SAT 100
--- NOTE | 2020-05-16 10:56 | EKG ---
Test Date: 2020-05-15 Test Time: 18:24:31 Shake Out Worker: DENA MEASUREMENT RESULTS: Intervals: Rate: 66 CT: 174 QRSD: 92 QT: 382 QTc: 400 [place]: P: 53 CT: 174 QRS: 39 T: 49 INTERPRETIVE STATEMENTS: Normal sinus rhythm Normal ECG Compared to ECG 05/04/2020 13:49:52 Sinus arrhythmia no longer present Electronically Signed On 05-16-20 10:53:59 CDT by Elliott Moon
== END 2020-05-15 21:04 | disposition home or self-care (01) ==
LOC: ER 14:41
DX: R09.1 Pleurisy (principal); I10 Essential (primary) hypertension; Z88.0 Allergy status to penicillin; Z88.1 Allergy status to other antibiotic agents; Z88.3 Allergy status to other anti-infective agents; Z88.5 Allergy status to narcotic agent; Z91.040 Latex allergy status; Z91.048 Other nonmedicinal substance allergy status
CPT/HCPCS: 93005; 85025; 80048; 36415; 85610; 85379; 84484; 83880; 71275; 71045; 96375; 96374; 99284; Q9967; J3010; J2405

== ENCOUNTER 2021-01-23 03:00 | Emergency (ER) | payer BC, OTHER ==
--- OUTSIDE RECORDS SUMMARY | 2021-01-23 03:05 | XMS REPORT | Continuity of Care Document ---
:1960 Author Organization [facility] t Address [address] [place] [address] Care Team Providers Name Role Phone WOOD Attending Clinician Unavailable ROMERO Attending Clinician Unavailable Lab, Fam Pob I Attending Clinician Unavailable Doctor Unassigned, Name Attending Clinician Unavailable MIKE Attending Clinician Unavailable EDWIGE Attending Clinician Unavailable OBIE Attending Clinician Unavailable YESY Attending Clinician Unavailable JACQUELIN Attending Clinician Unavailable EDWIGE Admitting Clinician Unavailable Problems Condition Condition Condition Status Onset Resolution Last Treating Co mments Source Name Details Category Date Date Treatment Clinician Date LOW BACK Condition Active 2014-07-22 M emoria [...] Resolve Univers pneumonia pneumonia d ity of [place] Physici ans History of History of Problem Resolve Univers psychiatri psychiatri d it y of c c [place] treatment treatment Phys ici ans History of History of Problem Resolve Univers rheumatoid rheumatoid d it y of arthritis arthritis Carlos duncan Physici ans History of History of Problem Resolve Univers Skin 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 [place] duncan face face Physici ans Visit for Visit for Problem Active Uni vers screening screening ity of mammogram mammogram [place] duncan Physici ans Right Right Problem Active Univers lower lower ity of quadrant quadrant [place] abdominal abdominal Phys ici tenderness tenderness an s Vaginal Vaginal Problem Active Univers discharge discharge ity of [place] Physici ans Breast Breast Problem Active Univers mass mass ity of [place] Physici ans Incontinen Incontinen Problem Active U nivers ce in ce in ity of female female [place] Physici ans Mixed Mixed Problem Active Univers stress and stress and it y of urge urge [place] urinary urinary Physici incontinen incontinen an s ce ce Urinary Urinary Problem Active Univers frequency frequency ity of [place] Physici ans Urinary Urinary Problem Active Univers urgency urgency ity of [place] Physici ans Vaginal Vaginal Problem Active Univers atrophy atrophy ity of [place] Physici ans Breast Breast Problem Active Univers pain in pain in ity of female female [place] Physici ans Well Well Problem Active Univers female female ity of exam with exam with [facility] routine routine Physici gynecologi gynecologi an s nikos exam nikos exam Allergies, Adverse Reactions, Alerts Allergy Allergy Status Severity Reaction(s) Onset Inactive Treating Comm ents Source Name Type Date Date Clinician CODEINE CODEINE Active Memoria 07-22 l 00:00: [place] 00 Cephalos Allergy Active Univers porins to drug ity of (finding [place] ) Physici ans Codeine Allergy Active Univers Derivati to drug ity of ves (finding [place] ) Physici ans Penicill Allergy Active Univers ins to drug ity of (finding [place] ) Physici ans Latex Allergy Active Univers to ity of substanc [place] e Physici (finding ans ) tetracyc Allergy Active Univers line to drug ity of (finding [place] ) Physici ans Family History Family Member Diagnosis Comments Start Date Stop Date Source Mother Family history of Univers ity of [place] diabetes mellitus Physici ans Father Family history of Univers ity of [place] Mesothelioma Physicians Brother Family history of Univers ity of [place] malignant melanoma Physic ians Brother Family history of Univers ity of [place] hypertension Physicians Sister Family history of Univers ity of [place] hypertension Physicians Social History Smoking Status Start Date Stop Date Source Never smoked tobacco (finding) U [facility] Physicians Medications Ordered Filled Start Stop Current Ordering Indication Dosage Frequency Signature Comments Components Source Medication Medication Date Date Medication? Clinician (SIG) Name Name Nystatin-Tr Nystatin-Tr 0 Yes SUBHRATHA APPLY Univers iamcinolone iamcinolone 6-05 YESY SPARINGLY ity of 675208-3.1 223876-1.1 00:00: M.D. [place] UNIT/GM-% UNIT/GM-% 00 AFFECTED P hysici External External AREA(S) ans Cream Cream TWICE DAILY X 10 DAYS MOBIC 15 MG Yes 1 tab po Me moria TABS 9-12 qd l 00:00: [place] 00 LIDODERM 5 Yes apply to Mem oria % PTCH 9-12 affected l 00:00: area 12h [place] 00 on 12h off per 24h prn pain COMPOUND Yes apply 2-3 Reji zia PAIN CREAM 9-12 pumps to l 00:00: the [place] 00 affected area 3-4 times daily. MOBIC 15 MG Yes 1 tab po Me moria TABS 9-12 qd l 00:00: [place] 00 LIDODERM 5 Yes apply to Mem oria % PTCH 9-12 affected l 00:00: area 12h Demarcus 00 on 12h off per 24h prn pain COMPOUND Yes apply 2-3 Reji zia PAIN CREAM 9-12 pumps to l 00:00: the [place] 00 affected area 3-4 times daily. Prazosin Prazosin Yes M.A. Univers HCl - 1 MG HCl - 1 MG ity of Oral Oral [place] Capsule Capsule Physici ans Montelukast Montelukast Yes M.A. U nivers Sodium 10 Sodium 10 ity o f MG Oral MG Oral [place] Tablet Tablet Physici ans DULoxetine DULoxetine Yes M.A. Uni vers HCl - 60 MG HCl - 60 MG i ty of Oral Oral [place] Capsule Capsule Physici Delayed Delayed ans Release Release Particles Particles ARIPiprazol ARIPiprazol Yes M.A. U nivers e 10 MG e 10 MG ity of Oral Tablet Oral Tablet [place] Disintegrat Disintegrat P hysici ing ing ans Wellbutrin Wellbutrin Yes M.A. Uni vers TABS TABS ity of [facility] ans Co Q 10 Co Q 10 Yes M.A. Univers CAPS CAPS ity of [facility] ans Restasis Restasis Yes M.A. [facility] EMUL EMUL ity of [facility] ans Crestor 5 Crestor 5 Yes M.A. Unive rs MG Oral MG Oral ity of Tablet Tablet [facility] ans Bystolic 10 Bystolic 10 Yes M.A. U nivers MG Oral MG Oral ity [facility] Levothyroxi Levothyroxi Yes M.A. U nivers ne Sodium ne Sodium ity o f 50 MCG Oral 50 MCG Oral [place] Tablet Tablet Physic ans Ambien 10 Ambien 10 Yes M.A. Unive rs MG Oral MG Oral ity of Tablet Tablet [facility] ans Dexmethylph Dexmethylph Yes M.A. U nivers enidate HCl enidate HCl i ty of ER 40 MG ER 40 MG [place] Oral Oral Physici Capsule Capsule ans Extended Extended Release 24 Release 24 Hour Hour clonazePAM clonazePAM Yes M.A. Uni vers 1 MG Oral 1 MG Oral ity o f Tablet [facility] ans Hydroxychlo Hydroxychlo Yes M.A. U nivers roquine roquine ity of Sulfate 200 Sulfate 200 [place] MG Oral MG Oral Physici Tablet Tablet ans Ondansetron Ondansetron Yes M.A. U nivers HCl - 4 MG HCl - 4 MG ity of Oral Tablet Oral Tablet [place] [facility] Urodol TABS Urodol TABS Yes M.A. U nivers ity of [facility] ans Xyrem SOLN Xyrem SOLN Yes M.A. Uni vers ity of [facility] ans Immunizations Ordered Immunization Filled Immunization Date Status Commen ts Source Name Name Flublok Quadrivalent 2020-07-11 Completed Univ ersity of 0.5 ML Intramuscular 00:00:00 [place] [facility] Solution Prefilled Syringe Vital Signs Vital Name Observation Time Observation Value Comments Source Systolic blood 2020-09-25 127 mm[Hg] Location: JACK; [facility] 09:23:00 Position: [place] Physician s Sitting Diastolic blood 2020-09-25 80 mm[Hg[facility] Position: [place] Physician s Sitting Body height 2020-09-25 67 [in_us] University 09:23:00 [place] Physician s Weight 2020-09-25 218.375 [lb_av] University o f 09:23:00 [place] Physician s Body mass index 2020-09-25 34.2 kg/m2 University o f (BMI) [Ratio] 09:23:00 [place] Physicia ns Body temperature 2020-09-25 96.3 [degF] Method: [facility] 09:23:00 Temporal [place] Physician s Systolic blood 2020-04-14 138 mm[Hg] Location: NATTY [facility] 08:32:00 Position: [place] Physician s Sitting Diastolic blood 2020-04-14 77 mm[Hg] [facility] 08:32:[facility] Position: [place] Physician s Sitting Body height 2020-04-14 67 [in_us] [facility] 08:32:00 [place] Physician s Weight 2020-04-14 200 [lb_av] [facility] 08:32:00 [place] Physician s Body mass index 2020-04-14 31.32 kg/m2 University o f (BMI) [Ratio] 08:32:00 [place] Physicia ns Body temperature 2020-04-14 97.8 [degF] Method: [facility] 08:32:00 Temporal [place] Physician s Heart Rate 2020-04-14 70 /min [facility] 08:32:00 [place] Physician s BP Systolic 2019-08-18 136 mm[Hg] [facility] Position: [place] Physician s Sitting BP Diastolic 2019-08-18 80 mm[Hg] Location: JACK; [facility] 15:52:00 Position: [place] Physician s Sitting Height 2019-08-18 67 [in_us] [facility] 15:52:00 [place] Physician s Weight 2019-08-18 216.375 [lb_av] University o f 15:52:00 [place] Physician s Body Mass Index 2019-08-18 33.89 kg/m2 University o Calculated 15:52:00 [place] Physician s Temperature 2019-08-18 98.7 [degF] [facility] 15:52:00 [place] Physician s BP Systolic 2019-08-09 119 mm[Hg] [facility] 10:10:00 Position: [place] Physician s Sitting BP Diastolic 2019-08-09 74 mm[Hg] [facility] 10:10:00 Position: [place] Physician s Sitting Height 2019-08-09 67 [in_us] [facility] 10:10:00 [place] Physician s Weight 2019-08-09 214.375 [lb_av] Theodore o 10:10:00 [place] Physician s Body Mass Index 2019-08-09 33.58 kg/m2 Theodore o Calculated 10:10:00 [place] Physician s Weight 2014-07-22 Radha Casean n 13:35:31 Height 2014-07-22 [facility] Jairon n 13:35:31 Temperature Oral 2014-07-22 96.4 F [facility] rmann (F) 13:35:31 Respitory Rate 2014-07-22 [facility] Herm grady 13:35:31 Heart Rate 2014-07-22 [facility] Jairon n 13:35:31 Systolic (mm Hg) 2014-07-22 [facility] rmann 13:35:31 Diastolic (mm Hg) 2014-07-22 [facility] ermann 13:35:31 Procedures Procedure Date / Time Performing Clinician Source Performed [place] Digital Mammo Screening 2020-09-25 00:00[facility] [QL] TSH, 3RD GENERATION 2020-04-14 00:00[facility] Phys[facility] [QL] PROLACTIN 2020-04-14 00:00:00 University o f [place] Physicians MA Digital Mammo DX [place] w 2020-04-14 00:00[facility]00 [facility] G[facility]4 [place] [id number] 2019-08-23 00:00[facility]00 [facility] [QLH] CULTURE, URINE, 2019-08-18 00:00:00 Univer zeferinoy [facility] ROUTINE Physicians MA Digital Mammo DX [place] 2019-08-13 00:00:00 Univ ersity [facility] G0204 Physicians US Breast Bilat [id number] 2019-08-13 00:00:00 Unive [facility] Physicians MA Digital Mammo Screening 2019-08-09 00:00:00 [facility] [place] G[facility] Phys[facility] US Pelvis with Pelvis 2019-08-09 00:00:00 Univer [facility] Transvaginal [id number] Physicians . [facility] - Affirm VPIII 2019-08-09 00:00:00 Univ [facility] (BV Panel) Physicians . [facility] - GC/Chlamydia 2019-08-09 00:00:00 Univ [facility] Physicians History of Total Abdominal Unive [facility] Hysterectomy Physicians History of Breast [facility] augmentation Physicians History of Ostectomy of [facility] calcaneus for spur Physicians History of Tonsillectomy [facility] Physicians History of Adenoidectomy [facility] Physicians History of Cholecystectomy Unive [facility] Physicians History of Shoulder University o f [place] Surgery Physicians History of Complete University o f [place] Colonoscopy Physicians History of Colonic [facility] polypectomy Physicians Encounters Start End Encounter Admission Attending Care Care Encounter Source Date/Time Date/Time Type Type Clinicians Facility Department ID 2021-01-22 2021-01-22 Outpatient [facility] [id number] [place] 00:00:00 00:00:00 067 Method i 2021-01-22 2021-01-22 Outpatient [facility] [id number] [place] 00:00:00 00:00:00 WOJCIECH 510 Method i 2021-01-22 2021-01-22 Outpatient [facility] [id number] [place] 00:00:00 00:00:00 WOJCIECH 539 Method i 2021-01-20 2021-01-20 Emergency ROMERO, [facility] [id number] [place] 00:00:00 00:00:00 UVALDO [address] 2020-10-16 2020-10-16 Laboratory Lab, [facility] [id number] 16:55:10 17:15:10 Only Fam Pob I Health [id number] [place] [id number] Professio [id number] nal [address] One 2020-10-16 2020-10-16 Letter Doctor BENY [id number] 00:00:00 00:00:00 (Out) Unassigned, TERESA [id number] [facility] [id number] 2020-09-25 2020-09-25 Appointmen MIKE [facility] Women's [id number] Univers 09:00:00 09:00:00 t; LUCAS MCKEON M.D. Center - ity of BRIAN, [place] M.D. Physici ans 2020-08-03 2020-08-03 Outpatient GIBBONS, [facility] [id number] [place] 00:00:00 00:00:00 LIUDMILA 912 Method i 2020-08-02 2020-08-02 Outpatient GIBBONS, [facility] [id number] [place] 00:00:00 00:00:[address] LIUD[address]IL[address] 2020-08-01 2020-08-01 Outpatient GIBBONS, [facility] [id number] [place] 00:00:00 00:00:00 LIUDMILA 442 Method i 2020-08-01 2020-08-01 Outpatient GIBBONS, [facility] [id number] [place] 00:00:00 00:00:00 LIUDMILA 703 Method i 2020-07-31 2020-07-31 Outpatient GIBBONS, [facility] [id number] [place] 00:00:00 00:00:00 LIUDMILA 438 Method i 2020-07-25 2020-07-25 Outpatient GIBBONS, [facility] [id number] [place] 00:00:00 00:00:00 LIUDMILA 149 Method i 2020-06-22 2020-06-22 Outpatient STADNYK, [facility] [id number] [place] 00:00:00 00:00:00 SIL [address] 2020-04-17 2020-04-17 Appointmen YESY [facility] [id number] Univers 15:40:00 15:40:00 t; Ty FRAZIER M.D. [place] SUBHRATHA, Physi ci M.D. ans 2020-04-14 2020-04-14 Veronicamen YESY [facility] Women's [id number] Univers 08:30:00 08:30:00 t; Sonia FRAZIER M.D. [place] SUBHRATHJaskaran Frost Son ans 2019-09-16 2019-09-16 Appointmen FERNANDO ROPER Urogynecolo [id number] Univers 09:50:00 09:50:00 t; ELIOT ROPER gy [facility] Son MCCABE M.D. Physici ans 2019-09-15 2019-09-15 Appointmen FERNANDO ROPER [facility] [id number] Univers 11:20:00 11:20:00 t; ELIOT ROPER Son [place] M.D. Physici ans 2019-08-18 2019-08-18 Appointmen FERNANDO ROPER Urogynecolo [id number] Univers 15:40:00 15:40:00 t; ELIOT ROPER gy [facility] Son MCCABE M.D. Physici ans 2019-08-09 2019-08-09 Appointmen FERNANDO MCKEON Women's [id number] Univers 10:30:00 10:30:00 t; LUCAS MCKEON M.D. [facility] Kristi ZAVALA M.D. Physici ans Results Test Description Test Time Test Comments Results Result Sour e Comments US Pelvis with 2019-08-10 STUDY: Pelvis w Unive rsity of Pelvis 4 Pelvis Transvaginal [place] Transvaginal 09:51:00 USCOMPARISON: Physician s [id number] None.HISTORY: - Right lower quadrant abdominal tenderness.FINDINGS: Transvaginal and transabdominal ultrasound images of the pelvis were obtained.Uterus: Has been removed.Ovaries: Have been removed.Pelvic fluid: None.IMPRESSION:Stat us post hysterectomy and bilateral salpingooophorectomy .Otherwise no significant abnormality.--Read by: Dixie Lewis MDDictated Date/time: 08/23/19 10:39Electronically Signed by: Dixie Lewis MD 08/23/1910:40FINAL [place] Breast [id number] 2019-08-10 COMPLETE ULTRASOUND [facility] OF LEFT BREAST AND [place] 08:22:00 AXILLA: Physicians 08/23/2019CLINICAL: /N63.0 Unspecified Lump In Unspecified Breast. COMPARISON:Compariso n is made to exam dated: 08/23/2019 mammogram - [facility]. TECHNIQUE: Color flow and real-time ultrasound [...] patient. Professional services are provided by the [facility] [place]enin [place].Bashir Esparza M.D. levi/:08/23/2019 09:14:30 Store Stock Help(s): Alyx Almaraz RDMS, [facility]ney[facility] Imagingletter sent: BI-RADS 1/2 Ultrasound BI-RADS: 2 Benign--Read by: Bashir Esparza MDDictated Date/time: 08/23/19 09:14Electronically Signed by: Bashir Esparza MD 08/23/1909:14FINAL REPORT MA Digital Mammo 2018--1 BILATERAL DIGITAL U niversity of DX [place] w ed 4 DIAGNOSTIC MAMMOGRAM [place] G0204 07:40:00 3D/2D WITH CAD: Physician s [...] provided by the [facility] Ashok Cline [place].Bashir Esparza M.D. levi/:08/23/2019 09:13:09 Store Stock Help(s): Viky Paige [facility] ImagingMammogram BI-RADS: 0 Indeterminate--Read by: Bashir Esparzaictated Date/time: 08/23/19 09:13Electronically Signed by: Bashir Esparza MD 08/23/1909:13FINAL REPORT [QL] CULTURE, URINE, ROUTINE 2019-08-18 16:33:01 Test Item Value Reference Range Interpretation Comme nts FINAL REPORT (test code = FINAL REPORT) No Growth [facility] Physicians[O] Urine Dipstick (In Office)2019-08-18 16:32:00 Test Item Value Reference Range Interpretation Comments Glucose (test code = Glucose) neg N LEUKOCYTES (test code = LEUKOCYTES) neg N NITRITE; Normal (test code = 45780-8) neg N UROBILINOGEN; Normal (test code = 0.2 N 04405-5) PROTEIN; Normal (test code = 62326-2) neg N pH (test code = pH) 7.5 N URINE BLOOD; Normal (test code = neg N 22005-4) SPECIFIC GRAVITY; Normal (test code = 1.020 N 2965-2) KETONES; Normal (test code = 44576-9) neg N BILIRUBIN; Normal (test code = 74612-4) neg N [facility] Physicians. [facility] - Affirm VPIII (BV Panel)2019-08-09 00:00:00 Test Item Value Reference Range Interpretation Comments Affirm VPIII (BV Panel) REPORT See Comment (test code = Affirm VPIII (BV Panel) REPORT) [facility] Physicians. [facility] - GC/[id number] 00:00:00 Test Item Value Reference Range Interpretation Comments GC REPORT (test code = GC REPORT) Negative Chlamydia REPORT (test code = Negative 85478-8) [facility] Physicians
[2021-01-23] MEDS ORDERED: TRAMADOL HCL 50 MG TAB ONE ×2 (06:32→09:43)
--- NOTE | 2021-01-23 07:30 | ER ---
Nurse's Notes [facility] Name: Lydia Hanson Age: 60 yrs Sex: Female : 1960 Arrival Date: 01/23/2021 Time: 03:05 Bed 5 Private MD: Diagnosis: Strain of muscle, fascia and tendon of left hip Presentation: 01/23 04:40 Chief complaint: Patient states: Left leg and left groin pain x 1 week. states the pain sg feels like a tourniquet has been applied to the leg for several hours, states has no known hx of DVT or vascular problems. 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 Coronavirus screen: Client denies travel out of the [place] in the last 14 days. Initial Sepsis Screen: Does the patient meet any 2 criteria? Does the patient have a suspected source of infection?. Onset of symptoms was January 23, 2021. Care prior to arrival: None. Transition of care: patient was not received from another setting of care. 04:40 Method Of Arrival: Ambulatory sg 04:40 Acuity: RIA 3 sg 04:49 Ebola Screen: No symptoms or risks identified at this time. ea 04:50 Initial Sepsis Screen: Does the patient meet any 2 criteria? No. Patient's initial ea sepsis screen is negative. Does the patient have a suspected source of infection? No. Patient's initial sepsis screen is negative. 04:50 Coronavirus screen: At this time, the client does not indicate any symptoms associated ea with coronavirus-19. 04:50 Method Of Arrival: Ambulatory ea 04:50 Risk Assessment: Do you want to hurt yourself or someone else? Patient reports no ea desire to harm self or others. Historical: - Allergies: 03:35 CEPHALOSPORINS; sg 03:35 Codeine; sg 03:35 Latex, Natural Rubber; sg 03:35 PENICILLINS; sg 03:35 TETRACYCLINES; sg - PMHx: 03:35 Depression; Hyperlipidemia; Hypertension; narcolepsy; Sleep Apnea; Thyroid problem; sg V-tach; - Immunization history:: Adult Immunizations unknown. - Social history:: Smoking status: unknown. Screenin:49 Abuse screen: Denies threats or abuse. Nutritional screening: No deficits noted. ea Tuberculosis screening: No symptoms or risk factors identified. Fall Risk IV access (20 points). Assessment: 05:22 Reassessment: Provider at bedside updating pt on plan of care. ea 06:50 Reassessment: Patient and/or family updated on plan of care and expected duration. Pain ea level reassessed. Patient is alert, oriented x 3, equal unlabored respirations, skin warm/dry/pink. 08:00 Reassessment: Attempted to discharge pt, pt reports no results have been relayed to her jl7 and would like an update and reports pain is unchanged. ERD notified. 09:10 Reassessment: Dr. Bull at bedside discussing results and POC. jl7 Vital Signs: 04:56 BP 96 / 45; Pulse 63; Resp 18; Temp 97.6; Pulse Ox 100% ; ea 07:33 BP 96 / 57; Pulse 59; Resp 17; Pulse Ox 100% on R/A; tw2 09:30 BP 108 / 71; Pulse 60; Resp 15; Pulse Ox 100% ; jl7 ED Course: 03:05 Patient arrived in ED. ag3 03:35 Arm band placed on. sg 04:48 Phi Gomez MD is Attending Physician. tw4 04:49 Vida Lockett, MARITA is Primary Nurse. ea 04:50 Patient has correct armband on for positive identification. Bed in low position. Call ea light in reach. 04:51 Triage completed. sg 06:57 Extremity Venous Uni Ltd US In Process Unspecified. EDMS 09:30 No provider procedures requiring assistance completed. Patient did not have IV access jl7 during this emergency room visit. Administered Medications: 06:29 Drug: traMADol 50 mg Route: PO; em 07:00 Follow up: Response: No adverse reaction jl7 09:25 Drug: predniSONE 60 mg Route: PO; jl7 09:34 Follow up: Response: Medication administered at discharge. jl7 09:25 Drug: Pepcid 20 mg Route: PO; jl7 09:34 Follow up: Response: Medication administered at discharge. jl7 09:25 Drug: traMADol 50 mg Route: PO; jl7 09:34 Follow up: Response: Medication administered at discharge. jl7 09:25 Drug: Robaxin 750 mg Route: PO; jl7 09:34 Follow up: Response: Medication administered at discharge. jl7 Outcome: 07:30 Discharge ordered by . tw4 09:30 Discharged to home ambulatory, with family. jl7 09:30 Condition: stable 09:30 Discharge instructions given to patient, Instructed on discharge instructions, follow up and referral plans. medication usage, Demonstrated understanding of instructions, follow-up care, medications, Prescriptions given X 4. 09:40 Patient left the ED. jl7 Signatures: Dispatcher [employer] Kevan Newman RN RN Ramon Agudelo RN Afshan Piña RN RN tw2 Roberto Singh RN RN jl7 Vida Lockett RN RN ea Wadley, Terrence, MD MD tw4 Ada Durham3
--- NOTE | 2021-01-23 07:30 | EDPHYS ---
Physician Documentation [facility] Name: Lydia Hanson Age: 60 yrs Sex: Female : 1960 Arrival Date: 01/23/2021 Time: 03:05 Bed 5 Private MD: ED Physician Phi Gomez HPI: 01/23 05:57 This 60 yrs old Female presents to ER via Ambulatory with complaints of Leg tw4 Pain. 05:57 The patient presents with pain. The complaints affect the left upper thigh. Context: tw4 The problem was sustained at home. Onset: The symptoms/episode began/occurred 1 week(s) ago. Modifying factors: The symptoms are alleviated by nothing. the symptoms are aggravated by nothing. Severity of symptoms: At their worst the symptoms were moderate, in the emergency department the symptoms are unchanged. The patient has not experienced similar symptoms in the past. Historical: - Allergies: 03:35 CEPHALOSPORINS; sg 03:35 Codeine; sg 03:35 Latex, Natural Rubber; sg 03:35 PENICILLINS; sg 03:35 TETRACYCLINES; sg - PMHx: 03:35 Depression; Hyperlipidemia; Hypertension; narcolepsy; Sleep Apnea; Thyroid problem; sg V-tach; - Immunization history:: Adult Immunizations unknown. - Social history:: Smoking status: unknown. ROS: 05:57 Constitutional: Negative for fever, chills, and weight loss, Cardiovascular: Negative tw4 for chest pain, palpitations, and edema, Respiratory: Negative for shortness of breath, cough, wheezing, and pleuritic chest pain, Abdomen/GI: Negative for abdominal pain, nausea, vomiting, diarrhea, and constipation, Back: Negative for injury and pain. 05:57 MS/extremity: Positive for pain, swelling, tenderness. Exam: 06:00 Constitutional: This is a well developed, well nourished patient who is awake, alert, tw4 and in no acute distress. Head/Face: Normocephalic, atraumatic. Chest/axilla: Normal chest wall appearance and motion. Nontender with no deformity. No lesions are appreciated. Cardiovascular: Regular rate and rhythm with a normal S1 and S2. No gallops, murmurs, or rubs. Normal PMI, no JVD. No pulse deficits. Respiratory: Lungs have equal breath sounds bilaterally, clear to auscultation and percussion. No rales, rhonchi or wheezes noted. No increased work of breathing, no retractions or nasal flaring. Abdomen/GI: Soft, non-tender, with normal bowel sounds. No distension or tympany. No guarding or rebound. No evidence of tenderness throughout. Back: No spinal tenderness. No costovertebral tenderness. Full range of motion. Skin: Warm, dry with normal turgor. Normal color with no rashes, no lesions, and no evidence of cellulitis. 06:00 Musculoskeletal/extremity: Extremities: noted in the left upper thigh and left quadriceps: Vital Signs: 04:56 BP 96 / 45; Pulse 63; Resp 18; Temp 97.6; Pulse Ox 100% ; ea 07:33 BP 96 / 57; Pulse 59; Resp 17; Pulse Ox 100% on R/A; tw2 09:30 BP 108 / 71; Pulse 60; Resp 15; Pulse Ox 100% ; jl7 MDM: 07:30 Patient medically screened. tw4 09:20 Data reviewed: vital signs, nurses notes, radiologic studies. Counseling: I had a kdr detailed discussion with the patient and/or guardian regarding: the historical points, exam findings, and any diagnostic results supporting the discharge/admit diagnosis, radiology results, the need for outpatient follow up. 01/23 04:49 Order name: Extremity Venous Uni Ltd ; Complete Time: 09:03 tw4 Administered Medications: 06:29 Drug: traMADol 50 mg Route: PO; em 07:00 Follow up: Response: No adverse reaction jl7 09:25 Drug: predniSONE 60 mg Route: PO; jl7 09:34 Follow up: Response: Medication administered at discharge. jl7 09:25 Drug: Pepcid 20 mg Route: PO; jl7 09:34 Follow up: Response: Medication administered at discharge. jl7 09:25 Drug: traMADol 50 mg Route: PO; jl7 09:34 Follow up: Response: Medication administered at discharge. jl7 09:25 Drug: Robaxin 750 mg Route: PO; jl7 09:34 Follow up: Response: Medication administered at discharge. jl7 Disposition: 01/23/21 07:30 Discharged to Home. Impression: Strain of muscle, fascia and tendon of left hip. - Condition is Stable. - Discharge Instructions: Adductor Muscle Strain, Lumbosacral Radiculopathy, Muscle Strain, Sciatica, Hip Pain. - Prescriptions for Pepcid 20 mg Oral Tablet - take 1 tablet by ORAL route every 12 hours for 10 days; 20 tablet. Cyclobenzaprine 10 mg Oral Tablet - take 1 tablet by ORAL route every 8 hours As needed; 30 tablet. Tramadol 50 mg Oral Tablet - take 1 tablet by ORAL route every 8 hours as needed; 12 tablet. Medrol (Jethro) 4 mg Oral Tablets, Dose Pack - take 1 tablet by ORAL route as directed - follow package instructions; 1 packet. - Medication Reconciliation Form, Thank You Letter, Prescription Opioid Use form. - Follow up: Private Physician; When: Upon discharge from the Emergency Department; Reason: Recheck today's complaints, Continuance of care, Re-evaluation by your physician. - Problem is an ongoing problem. - Symptoms have improved. Signatures: Dispatcher [employer] EDKevan Tomas RN RN sg Rittger, Kevin, MD MD kdr Munoz, Edgar RN Roberto Kang RN RN jl7 Vida Lockett RN Phi العلي ea, MD MD tw4 Corrections: (The following items were deleted from the chart) 09:40 07:30 01/23/2021 07:30 Discharged to Home. Impression: Strain of muscle, fascia and jl7 tendon of left hip. Condition is Stable. Forms are Medication Reconciliation Form, Thank You Letter, Antibiotic Education, Prescription Opioid Use. Follow up: Private Physician; When: Upon discharge from the Emergency Department; Reason: Recheck today's complaints, Continuance of care, Re-evaluation by your physician. Problem is an ongoing problem. Symptoms have improved. tw4
--- NOTE | 2021-01-23 08:11 | RAD REPORT ---
EXAM DESCRIPTION: USExtremity Venous Uni Ltd01/23/2021 6:58 am CLINICAL HISTORY: left leg pain COMPARISON: None. FINDINGS: Left common femoral, superficial femoral, popliteal and posterior tibial veins are compre ssible and demonstrate augmentation. Doppler demonstrates good flow. IMPRESSION: No evidence of deep venous thrombosis involving the left lower extremity.
[2021-01-23] MEDS ORDERED: methocarbamoL 500 MG TAB ONE (09:40)
[2021-01-23] MEDS ORDERED: predniSONE 20 MG TAB ONE (09:40)
[2021-01-23] MEDS ORDERED: FAMOTIDINE 20 MG TAB ONE (09:41)
[2021-01-23 09:45] VITALS: TEMP 97.6; O2SAT 100
[2021-01-23 09:48] VITALS: BP 108/71
== END 2021-01-23 09:40 | disposition home or self-care (01) ==
LOC: ER 03:00
DX: S76.012A Strain of muscle, fascia and tendon of left hip, initial encounter (principal); I10 Essential (primary) hypertension; Z88.0 Allergy status to penicillin; Z88.1 Allergy status to other antibiotic agents; Z88.3 Allergy status to other anti-infective agents; Z88.5 Allergy status to narcotic agent; Z91.040 Latex allergy status; Z91.048 Other nonmedicinal substance allergy status
CPT/HCPCS: 93971; 99283; J7512

== ENCOUNTER 2021-02-05 06:56 | Inpatient (IN) | payer BC, OTHER ==
--- OUTSIDE RECORDS SUMMARY | 2021-02-05 06:59 | XMS REPORT | Continuity of Care Document ---
:1960 Author Organization [facility] t Address [address] [place] [address] Care Team Providers Name Role Phone WOOD [...] psychiatri d it y of c c [place] treatment treatment Phys ici ans History of [...] Univers lower lower ity of quadrant quadrant [place] abdominal abdominal Phys ici tenderness tenderness an s Vaginal Vaginal Problem Active Univers discharge discharge ity of [place] Physici ans Breast Breast Problem Active Univers mass mass ity of [place] Physici ans Incontinen Incontinen Problem Active U nivers ce in ce in ity of female female [place] Physici ans Mixed Mixed Problem Active Univers stress and stress and it y of urge urge [place] urinary urinary Physici incontinen incontinen an s ce ce Urinary Urinary Problem Active Univers frequency frequency ity of [place] Physici ans Urinary Urinary Problem Active Univers urgency urgency ity of [place] Physici ans Vaginal Vaginal Problem Active Univers atrophy atrophy ity of [place] Physici ans Breast Breast Problem Active Univers pain in pain in ity of female female [place] Physici ans Well Well Problem Active Univers female female ity of exam with exam with [facility] routine routine Physici gynecologi gynecologi an s nikos exam nikos exam Allergies, Adverse Reactions, Alerts Allergy Allergy Status Severity Reaction(s) Onset Inactive Treating Comm ents Source Name Type Date Date Clinician CODEINE CODEINE Active Memoria 07-22 l 00:00: Cable 00 Cephalos Allergy Active Univers porins to drug ity of (finding [place] ) Physici ans Codeine Allergy Active Univers Derivati to drug ity of ves (finding [place] ) Physici ans Penicill Allergy Active Univers ins to drug ity of (finding [place] ) Physici ans Latex Allergy Active Univers to ity of substanc [place] e Physici (finding ans ) tetracyc Allergy Active Univers line to drug ity of (finding [place] ) Physici ans Family History Family Member Diagnosis Comments Start Date Stop Date Source Mother Family history of Univers ity of [place] diabetes mellitus Physici ans Father Family history of Univers ity of [place] Mesothelioma Physicians Brother Family history of Univers ity of [place] malignant melanoma Physic ians Brother Family history of Univers ity of [place] hypertension Physicians Sister Family history of Univers ity of [place] hypertension Physicians Social History Smoking Status Start Date Stop Date Source Never smoked tobacco (finding) U [facility] Physicians Medications Ordered Filled Start Stop Current Ordering Indication Dosage Frequency Signature Comments Components Source Medication Medication Date Date Medication? Clinician (SIG) Name Name Nystatin-Tr Nystatin-Tr 0 Yes SUBHRATHA APPLY Univers iamcinolone iamcinolone 6-05 YESY SPARINGLY ity of 584744-6.1 997027-4.1 00:00: M.D. [place] UNIT/GM-% UNIT/GM-% 00 AFFECTED P hysici External External AREA(S) ans Cream Cream TWICE DAILY X 10 DAYS MOBIC 15 MG Yes 1 tab po Me moria TABS 9-12 qd l 00:00: Demarcus 00 LIDODERM 5 Yes apply to Mem oria % PTCH 9-12 affected l 00:00: area 12h Cable 00 on 12h off per 24h prn pain COMPOUND Yes apply 2-3 Reji zia PAIN CREAM 9-12 pumps to l 00:00: the Cable 00 affected area 3-4 times daily. MOBIC 15 MG Yes 1 tab po Me moria TABS 9-12 qd l 00:00: Cable 00 LIDODERM 5 Yes apply to Mem oria % PTCH 9-12 affected l 00:00: area 12h Demarcus 00 on 12h off per 24h prn pain COMPOUND Yes apply 2-3 Reji zia PAIN CREAM 9-12 pumps to l 00:00: the Cable 00 affected area 3-4 times daily. Prazosin [...] M.A. Uni vers TABS TABS ity of [facility] ans Co Q 10 Co Q 10 Yes M.A. Univers CAPS CAPS ity of [facility] ans Restasis Restasis Yes M.A. [facility] EMUL EMUL ity of [facility] ans Crestor 5 Crestor 5 Yes M.A. Unive rs MG Oral MG Oral ity of Tablet Tablet [facility] ans Bystolic 10 Bystolic 10 Yes M.A. U nivers MG Oral MG Oral ity [facility] Table[facility] ans Levothyroxi Levothyroxi Yes M.A. U nivers ne Sodium ne Sodium ity o f 50 MCG Oral 50 MCG Oral [place] Tablet Tablet Physic ans Ambien 10 Ambien 10 Yes M.A. Unive rs MG Oral MG Oral ity of Tablet Tablet [facility] ans Dexmethylph Dexmethylph Yes M.A. U nivers enidate HCl enidate HCl i ty of ER 40 MG ER 40 MG [place] Oral Oral Physici Capsule Capsule ans Extended Extended Release 24 Release 24 Hour Hour clonazePAM clonazePAM Yes M.A. Uni vers 1 MG Oral 1 MG Oral ity o f Tablet Tablet [facility] ans Hydroxychlo Hydroxychlo Yes M.A. U nivers roquine roquine ity of Sulfate 200 Sulfate 200 [place] MG Oral MG Oral Physici Tablet Tablet ans Ondansetron Ondansetron Yes M.A. U nivers HCl - 4 MG HCl - 4 MG ity of Oral Tablet Oral Tablet [place] [facility] ans Urodol TABS Urodol TABS Yes M.A. U nivers ity of [facility] ans Xyrem SOLN Xyrem SOLN Yes M.A. Uni vers ity of [facility] ans Immunizations Ordered Immunization Filled Immunization Date Status Commen ts Source Name Name Flublok Quadrivalent 2020-07-11 Completed Univ ersity of 0.5 ML Intramuscular 00:00:00 [place] [facility]icians Solution Prefilled Syringe Vital Signs Vital Name Observation Time Observation Value Comments Source Systolic blood 2020-09-25 127 mm[Hg] Location: JACK; [facility] 09:23:00 Position: [place] Physician s Sitting Diastolic blood 2020-09-25 80 mm[Hg] [facility] Position[facility] [place] Physician s Sitting Body height 2020-09-25 67 [in_us] University 09:23:00 [place] Physician s Weight 2020-09-25 218.375 [lb_av] University o f 09:23:00 [place] Physician s Body mass index 2020-09-25 34.2 kg/m2 University o f (BMI) [Ratio] 09:23:00 [place] Physicia ns Body temperature 2020-09-25 96.3 [degF] Method: [facility] 09:23:00 Temporal [place] Physician s Systolic blood 2020-04-14 138 mm[Hg] Location: NATTY [facility] 08:32:00 Position: [place] Physician s Sitting Diastolic blood 2020-04-14 77 mm[Hg] [facility] 08:[facility] Position: [place] Physician s Sitting Body height 2020-04-14 67 [in_us] [facility] 08:32:00 [place] Physician s Weight 2020-04-14 200 [lb_av] [facility] 08:32:00 [place] Physician s Body mass index 2020-04-14 31.32 kg/m2 University o f (BMI) [Ratio] 08:32:00 [place] Physicia ns Body temperature 2020-04-14 97.8 [degF] Method: [facility] 08:32:00 Temporal [place] Physician s Heart Rate 2020-04-14 70 /min [facility] 08:32:00 [place] Physician s BP Systolic 2019-08-18 136 mm[Hg] [facility] 15:[facility] Position: [place] Physician s Sitting BP Diastolic 2019-08-18 80 mm[Hg] Location: JACK; [facility] 15:52:00 Position: [place] Physician s Sitting Height 2019-08-18 67 [in_us] [facility] 15:52:00 [place] Physician s Weight 2019-08-18 216.375 [lb_av] University o f 15:52:00 [place] Physician s Body Mass Index 2019-08-18 33.89 kg/m2 University o Calculated 15:52:00 [place] Physician s Temperature 2019-08-18 98.7 [degF] [facility] 15:52:00 [place] Physician s BP Systolic 2019-08-09 119 mm[Hg] Location: [facility] 10:10:00 Position: [place] Physician s Sitting BP Diastolic 2019-08-09 74 mm[Hg] Location: [facility] 10:10:00 Position: [place] Physician s Sitting Height 2019-08-09 67 [in_us] [facility] 10:10:00 [place] Physician s Weight 2019-08-09 214.375 [lb_av] [place] o 10:10:00 [place] Physician s Body Mass Index 2019-08-09 33.58 kg/m2 [place] o Calculated 10:10:00 [place] Physician s Weight 2014-07-22 Radha Casean n 13:35:31 Height 2014-07-22 [facility] Jairon n 13:35:31 Temperature Oral 2014-07-22 96.4 F [facility] rmann (F) 13:35:31 Respitory Rate 2014-07-22 [facility] Herm grady 13:35:31 Heart Rate 2014-07-22 [facility] Jairon n 13:35:31 Systolic (mm Hg) 2014-07-22 [facility] rmann 13:35:31 Diastolic (mm Hg) 2014-07-22 [facility] ermann 13:35:31 Procedures Procedure Date / Time Performing Clinician Source Performed [place] Digital Mammo Screening 2020-09-25 [facility]00[id number] [QL] TSH, 3RD GENERATION 2020-04-14 00:00[facility]00 [facility] Physicians [QL] PROLACTIN 2020-04-14 00:00:00 University o f [place] Physicians MA Digital Mammo DX [place] w 2020-04-14 00:00:00 [facility] ed G0204 [place] [id number] 2019-08-23 00:00:00 [facility] [QLH] CULTURE, URINE, 2019-08-18 00:00:00 Univer zeferinoy [facility] ROUTINE Physicians MA Digital Mammo DX [place] 2019-08-13 00:00:00 Univ ersity [facility] G0204 Physicians US Breast Bilat [id number] 2019-08-13 00:00:00 Unive [facility] Physicians MA Digital Mammo Screening 2019-08-09 00:00[facility] [place] G[facility] Physicians US Pelvis with Pelvis 2019-08-09 00:00:00 Univer [facility] Transvaginal [id number] Physicians . [facility] - Affirm VPIII 2019-08-09 00:00:00 Univ [facility] (BV Panel) Physicians . [facility] - GC/Chlamydia 2019-08-09 00:00:00 Univ [facility] Physicians History of Total Abdominal Unive [facility] Hysterectomy Physicians History of Breast [facility] augmentation Physicians History of Ostectomy of [facility] calcaneus for spur Physicians History of Tonsillectomy [facility] Physicians History of Adenoidectomy [facility] Physicians History of Cholecystectomy Unive [facility] Physicians History of Shoulder [facility] [place] Surgery Physicians History of Complete [facility] [place] Colonoscopy Physicians History of Colonic [facility] polypectomy Physicians Encounters Start End Encounter Admission Attending Care Care Encounter Source Date/Time Date/Time Type Type Clinicians Facility Department ID 2021-01-22 2021-01-22 Outpatient [facility] [id number] [place] 00:00:00 00:00:00 067 Method i 2021-01-22 2021-01-22 Outpatient [facility] [id number] [place] 00:00:00 00:00:00 WOJCIECH 510 Method i 2021-01-22 2021-01-22 Outpatient [facility] [id number] [place] 00:00:00 00:00:00 WOJCIECH 539 Method i 2021-01-20 2021-01-20 Emergency ROMERO, [facility] [id number] [place] 00:00:00 00:00:00 UVALDO [address] 2020-10-16 2020-10-16 Laboratory Lab, [facility] [id number] 16:55:10 17:15:10 Only Fam Pob I Health [id number] [place] [id number] Professio [id number] nal 0[address] One 2020-10-16 2020-10-16 Letter Doctor BENY [id number] 00:00:00 00:00:00 (Out) Unassigned, TERESA [id number] [facility] [id number] 2020-09-25 2020-09-25 Appointmen MIKE [facility] Women's [id number] Univers 09:00:00 09:00:00 t; LUCAS MCKEON M.D. Center - ity of B[place]AN, [place] M.D. Physici ans 2020-08-03 2020-08-03 Outpatient GIBBONS, [facility] [id number] [place] 00:00:00 00:00:00 LIUDMILA 912 Method i 2020-08-02 2020-08-02 Outpatient GIBBONS, [facility] [id number] [place] 00:00:00 00:00:[address] LIUD[address]IL[address] 2020-08-01 2020-08-01 Outpatient GIBBONS, [facility] [id number] [place] 00:00:00 00:00:00 LIUDMILA 442 Method i 2020-08-01 2020-08-01 Outpatient GIBBONS, [facility] [id number] [place] 00:00:00 00:00:00 LIUDMILA 703 Method i 2020-07-31 2020-07-31 Outpatient GIBBONS, [facility] [id number] [place] 00:00:00 00:00:00 LIUDMILA 438 Method i 2020-07-25 2020-07-25 Outpatient GIBBONS, [facility] [id number] [place] 00:00:00 00:00:00 LIUDMILA 149 Method i 2020-06-22 2020-06-22 Outpatient STADNYK, [facility] [id number] [place] 00:00:00 00:00:00 SIL [address] 2020-04-17 2020-04-17 Appointmen YESY [facility] [id number] Univers 15:40:00 15:40:00 t; Ty FRAZIER M.D. [place] SUBHRATHA, Physi ci M.D. ans 2020-04-14 2020-04-14 Veronicamen YESY [facility] Women's [id number] Univers 08:30:00 08:30:00 t; Sonia FRAZIER M.D. [place] SUBHRATHJaskaran Frost Son ans 2019-09-16 2019-09-16 Appointmen FERNANDO ROPER Urogynecolo [id number] Univers 09:50:00 09:50:00 t; ELIOT ROPER gy [facility] Son MCCABE M.D. Physici ans 2019-09-15 2019-09-15 Appointmen FERNANDO ROPER [facility] [id number] Univers 11:20:00 11:20:00 t; ELIOT ROPER Son [place] M.D. Physici ans 2019-08-18 2019-08-18 Appointmen FERNANDO ROPER Urogynecolo [id number] Univers 15:40:00 15:40:00 t; ELIOT ROPER gy [facility] Son MCCABE M.D. Physici ans 2019-08-09 2019-08-09 Appointmen FERNANDO MCKEON Women's [id number] Univers 10:30:00 10:30:00 t; LUCAS MCKEON M.D. [facility] Kristi ZAVALA M.D. Physici ans Results Test Description Test Time Test Comments Results Result Sour e Comments US Pelvis with 2019-08-10 STUDY: Pelvis w Unive rsity of Pelvis 4 Pelvis Transvaginal [place] Transvaginal 09:51:00 USCOMPARISON: Physician s [id number] None.HISTORY: - Right lower quadrant abdominal tenderness.FINDINGS: Transvaginal and transabdominal ultrasound images of the pelvis were obtained.Uterus: Has been removed.Ovaries: Have been removed.Pelvic fluid: None.IMPRESSION:Stat us post hysterectomy and bilateral salpingooophorectomy .Otherwise no significant abnormality.--Read by: Dixie Lewis MDDictated Date/time: 08/23/19 10:39Electronically Signed by: Dixie Lewis MD 08/23/1910:40FINAL REPORT US Breast [id number] 2019-08-10 COMPLETE ULTRASOUND [facility] OF LEFT BREAST AND [place] 08:22:00 AXILLA: Physicians 08/23/2019CLINICAL: /N63.0 Unspecified Lump In Unspecified Breast. COMPARISON:Compariso n is made to exam dated: 08/23/2019 mammogram - [facility]. TECHNIQUE: Color flow and real-time [...] patient. Professional services are provided by the [facility] MLenin [place] [facility].Bashir Esparza M.D. levi/:08/23/2019 09:14:30 Pizza Chef(s): Alyx Almaraz RDMS, [facility] Planopatient Imagingletter sent: BI-RADS 1/2 Ultrasound BI-RADS: 2 [...] recommended. Professional services are provided by the [facility] Ashok Cline [place] [facility].Bashir Esparza M.D. levi/:08/23/2019 09:13:09 Pizza Chef(s): Viky Paige [facility] Planopatient ImagingMammogram BI-RADS: 0 Indeterminate--Read by: Bashir Esparzaictated Date/time: 08/23/19 09:13Electronically Signed by: Bashir Esparza MD 08/23/1909:13FINAL REPORT [QL] CULTURE, URINE, ROUTINE 2019-08-18 16:33:01 Test Item Value Reference Range Interpretation Comme nts FINAL REPORT (test code = FINAL REPORT) No Growth [facility] Physicians[O] Urine Dipstick (In Office)2019-08-18 16:32:00 Test Item Value Reference Range Interpretation Comments Glucose (test code = Glucose) neg N LEUKOCYTES (test code = LEUKOCYTES) neg N NITRITE; Normal (test code = 39902-8) neg N UROBILINOGEN; Normal (test code = 0.2 N 08244-1) PROTEIN; Normal (test code = 22276-4) neg N pH (test code = pH) 7.5 N URINE BLOOD; Normal (test code = neg N 81154-7) SPECIFIC GRAVITY; Normal (test code = 1.020 N 2965-2) KETONES; Normal (test code = 42810-4) neg N BILIRUBIN; Normal (test code = 45222-6) neg N [facility] Physicians. [facility] - Affirm VPIII (BV Panel)2019-08-09 00:00:00 Test Item Value Reference Range Interpretation Comments Affirm VPIII (BV Panel) REPORT See Comment (test code = Affirm VPIII (BV Panel) REPORT) [facility] Physicians. [facility] - GC/[id number] 00:00:00 Test Item Value Reference Range Interpretation Comments GC REPORT (test code = GC REPORT) Negative Chlamydia REPORT (test code = Negative 47820-2) [facility] Physicians
[2021-02-05] MEDS ORDERED: NA CHLORIDE 0.9% 1,000 ML ONE (07:53)
[2021-02-05 08:13] LABS: Absolute Lymphocytes (CBC) 1.7 K/uL (0.7-4.9); Basophils % 0.7 % (0-1.3); Hematocrit 35.9 % (36.0-45.0); Lymphocytes % 28.3 % (15.3-44.8); RBC Red Blood Cell Count 3.67 M/uL (3.86-4.86)
[2021-02-05 08:32] LABS: Albumin 3.8 g/dL (3.4-5.0); Bilirubin Total 0.5 mg/dL (0.2-1.0); Protein, Total 7.1 g/dL (6.4-8.2)
[2021-02-05] MEDS ORDERED: CIPROFLOXACIN 400mg IV 400 MG/200 ML BAG IV ONE (08:51)
[2021-02-05 08:57] LABS: Urine Bacteria <20 /HPF (<20)
[2021-02-05 09:01] LABS: Calcium Oxalate Crystals- Ur FEW (NONE SEEN)
--- NOTE | 2021-02-05 09:07 | ER ---
Nurse's Notes [facility] Name: Lydia Hanson Age: 60 yrs Sex: Female : 1960 Arrival Date: 02/05/2021 Time: 06:58 Bed 4 Private MD: Diagnosis: Dehydration-with HANNAH;Acute cystitis without hematuria;Hypokalemia Presentation: 02/05 07:14 Chief complaint: Patient states: over the last 2-3 days has been very thirsty and going iw to the bathroom a lot, is on a diet for fatty liver, it's just shakes , BS reading this morning was 360 and her urine was tea colored, pt is not diabetic. Coronavirus screen: At this time, the client does not indicate any symptoms associated with coronavirus-19. Ebola Screen: Patient negative for fever greater than or equal to 101.5 degrees Fahrenheit, and additional compatible Ebola Virus Disease symptoms Patient denies exposure to infectious person. Patient denies travel to an Ebola-affected area in the 21 days before illness onset. No symptoms or risks identified at this time. Initial Sepsis Screen: Does the patient meet any 2 criteria? No. Patient's initial sepsis screen is negative. Does the patient have a suspected source of infection? No. Patient's initial sepsis screen is negative. Risk Assessment: Do you want to hurt yourself or someone else? Patient reports no desire to harm self or others. Onset of symptoms was February 01, 2021. 07:14 Method Of Arrival: Ambulatory iw 07:14 Acuity: RIA 3 iw Historical: - Allergies: 07:23 CEPHALOSPORINS; iw 07:23 Codeine; iw 07:23 Latex, Natural Rubber; iw 07:23 PENICILLINS; iw 07:23 TETRACYCLINES; iw - Home Meds: 07:23 Abilify 15 mg oral tab 1 tab once daily [Active]; Focalin XR 40 mg oral BP50 1 cap once iw daily [Active]; duloxetine 60 mg oral cpDR 1 cap once daily [Active]; bupropion HCl 300 mg Oral Tb24 1 tab once daily [Active]; omeprazole 40 mg Oral cpDR 1 cap once daily [Active]; valsartan-hydrochlorothiazide 80-12.5 mg oral tab 1 tab once daily [Active]; Prazosin Oral 3 times per day [Active]; ursodiol 300 mg Oral cap 1 cap 2 times per day [Active]; trazodone 100 mg Oral tab 2 tabs nightly [Active]; Bystolic 5 mg oral tab 1 tab once daily [Active]; hydroxychloroquine 200 mg oral tab 2 tabs once daily [Active]; levothyroxine 50 mcg tab 1 tab once daily [Active]; montelukast 10 mg oral tab 1 tab once daily [Active]; amlodipine oral once daily [Active]; Hydralazine Oral [Active]; dexmethylphenidate 40 mg oral BP50 1 cap once daily [Active]; valacyclovir Oral [Active]; aripiprazole 15 mg oral TbDL 1 tab once daily [Active]; - PMHx: 07:23 Depression; Hyperlipidemia; Hypertension; narcolepsy; Sleep Apnea; Thyroid problem; iw V-tach; - Immunization history:: Adult Immunizations up to date, Client reports receiving the 2nd dose of the Covid vaccine. - Social history:: Smoking status: Patient denies any tobacco usage or history of. Patient/guardian denies using alcohol, street drugs, The patient lives with family. - Family history:: not pertinent. Screenin:22 Abuse screen: Denies threats or abuse. Denies injuries from another. Nutritional ld1 screening: No deficits noted. Tuberculosis screening: No symptoms or risk factors identified. Fall Risk IV access (20 points). Total Gallagher Fall Scale indicates No Risk (0-24 pts). Assessment: 08:13 General: Appears in no apparent distress. comfortable, well groomed, Behavior is calm, ld1 cooperative, appropriate for age, Reports fatigue for. Pain: Denies pain. Neuro: Level of Consciousness is awake, alert, obeys commands, Oriented to person, place, time, situation, Reports blurred vision Reported blurred vision this morning at home around 0400. Denies current blurred vision. Cardiovascular: Denies chest pain, Patient's skin is warm and dry. Respiratory: Airway is patent Respiratory effort is even, unlabored, Respiratory pattern is regular, symmetrical, Denies shortness of breath. : Urine is clear, Reports urinary frequency. Derm: Skin is pink, warm \T\ dry. 09:15 Reassessment: Dr. Garcia at bedside assessing patient. ld1 10:42 Reassessment: Patient appears in no apparent distress at this time. No changes from jl7 previously documented assessment. Patient and/or family updated on plan of care and expected duration. Pain level reassessed. Patient is alert, oriented x 3, equal unlabored respirations, skin warm/dry/pink. Vital Signs: 07:14 BP 112 / 71; Pulse 72; Resp 16; Temp 98.1; Pulse Ox 100% on R/A; Weight 87.09 kg; iw Height 5 ft. 7 in. (170.18 cm); 08:17 BP 109 / 66; Pulse 70; Resp 18; Pulse Ox 100% ; Pain 0/10; ld1 09:30 BP 126 / 67; Pulse 67; Resp 18; Pulse Ox 100% ; Pain 00/10; ld1 10:42 BP 114 / 68; Pulse 60; Resp 17; Pulse Ox 99% ; jl7 10:43 BP 114 / 68; Pulse 62; Resp 17; Pulse Ox 100% ; Pain 0/10; ld1 07:14 Body Mass Index 30.07 (87.09 kg, 170.18 cm) iw ED Course: 06:58 Patient arrived in ED. as 07:17 Triage completed. iw 07:24 Arm band placed on. iw 07:27 Halie Olvera RN is Primary Nurse. ld1 07:30 Cooper Luong MD is Attending Physician. ma2 08:00 Initial lab(s) drawn, by ED staff, sent to lab. Urine collected: clean catch specimen, ld1 clear. Inserted saline lock: 24 gauge in right wrist, using aseptic technique. Blood collected. Inserted by MARITA Mejia. 08:22 Patient has correct armband on for positive identification. Placed in gown. Bed in low ld1 position. Call light in reach. Side rails up X 1. Pulse ox on. NIBP on. Warm blanket given. 08:30 Hemoglobin A1c Sent. ld1 09:06 Joshua Garcia MD is Hospitalizing Provider. ma2 09:12 First set of blood cultures drawn by ne. ld1 09:21 Accessed Port-a-Cath. using accessed w/ # 20 Mckee needle, ,sterile technique, per [facility] hospital protocol. Clean \T\ dry. Dressing intact. Good blood return. Flushes easily. 09:47 COVID swab sent to lab. jl7 12:20 No provider procedures requiring assistance completed. Patient admitted, IV remains in jl7 place. intact, No redness/swelling at site. Administered Medications: 08:29 Not Given (Other Intervention Used): NS 0.9% 1000 ml IV at 125 ml/hr continuous ld1 08:29 Drug: NS 0.9% 1000 ml Route: IV; Rate: 1 bolus; Site: right wrist; ld1 10:23 Follow up: Response: No adverse reaction; IV Status: Completed infusion; IV Intake: ld1 1000ml 08:40 Drug: Ciprofloxacin 400 mg Volume: 200 ml; Route: IVPB; Infused Over: 60 mins; Site: ld1 right wrist; 09:40 Follow up: IV Status: Completed infusion ld1 10:44 Follow up: Response: No adverse reaction ld1 09:23 Drug: Potassium Chloride 20 mEq Route: IV; Rate: calculated rate; Site: Port-a-cath; ld1 10:23 Follow up: IV Status: Completed infusion ld1 10:43 Follow up: BP 114 / 68; Pulse 62 bpm; Resp 17 bpm; Pulse Ox 100% ; Pain 0/10 Adult ld1 10:44 Follow up: Response: No adverse reaction ld1 10:45 Follow up: Response: No adverse reaction ld1 Intake: 10:23 IV: 1000ml; Total: 1000ml. ld1 Outcome: 09:06 Decision to Hospitalize by Provider. ma2 12:20 Admitted to Tele accompanied by tech, via wheelchair, room 221, with chart, Report jl7 called to MARITA ORTEGA 12:20 Condition: stable 12:20 Discharge instructions given to patient, Instructed on the need for admit, Demonstrated understanding of instructions. 12:21 Patient left the ED. jl7 Signatures: Luzmaria Oakes Irene, RN MARITA Roberto Singh RN RN jl7 Cooper Luong MD MD ok2 Halie Olvera RN RN ld1
--- NOTE | 2021-02-05 09:07 | EDPHYS ---
Physician Documentation [facility] Name: Lydia Hanson Age: 60 yrs Sex: Female : 1960 Arrival Date: 02/05/2021 Time: 06:58 Bed 4 Private MD: ED Physician Cooper Luong HPI: 02/05 09:03 This 60 yrs old Female presents to ER via Ambulatory with complaints of High ma2 Blood Sugar. 09:03 This 60 yrs old Female presents to ER via Ambulatory with complaints of High ma2 Blood Sugar. 09:03 This 60 yrs old Female presents to ER via Ambulatory with complaints of High ma2 Blood Sugar. 09:03 Onset: The symptoms/episode began/occurred gradually, 1 day(s) ago. Associated signs ma2 and symptoms: Pertinent negatives: anorexia, diarrhea, hair loss, ketones in urine. The patient has not experienced similar symptoms in the past. Historical: - Allergies: 07:23 CEPHALOSPORINS; iw 07:23 Codeine; iw 07:23 Latex, Natural Rubber; iw 07:23 PENICILLINS; iw 07:23 TETRACYCLINES; iw - Home Meds: 07:23 Abilify 15 mg oral tab 1 tab once daily [Active]; Focalin XR 40 mg oral BP50 1 cap once iw daily [Active]; duloxetine 60 mg oral cpDR 1 cap once daily [Active]; bupropion HCl 300 mg Oral Tb24 1 tab once daily [Active]; omeprazole 40 mg Oral cpDR 1 cap once daily [Active]; valsartan-hydrochlorothiazide 80-12.5 mg oral tab 1 tab once daily [Active]; Prazosin Oral 3 times per day [Active]; ursodiol 300 mg Oral cap 1 cap 2 times per day [Active]; trazodone 100 mg Oral tab 2 tabs nightly [Active]; Bystolic 5 mg oral tab 1 tab once daily [Active]; hydroxychloroquine 200 mg oral tab 2 tabs once daily [Active]; levothyroxine 50 mcg tab 1 tab once daily [Active]; montelukast 10 mg oral tab 1 tab once daily [Active]; amlodipine oral once daily [Active]; Hydralazine Oral [Active]; dexmethylphenidate 40 mg oral BP50 1 cap once daily [Active]; valacyclovir Oral [Active]; aripiprazole 15 mg oral TbDL 1 tab once daily [Active]; - PMHx: 07:23 Depression; Hyperlipidemia; Hypertension; narcolepsy; Sleep Apnea; Thyroid problem; iw V-tach; - Immunization history:: Adult Immunizations up to date, Client reports receiving the 2nd dose of the Covid vaccine. - Social history:: Smoking status: Patient denies any tobacco usage or history of. Patient/guardian denies using alcohol, street drugs, The patient lives with family. - Family history:: not pertinent. ROS: 09:03 Constitutional: Negative for fever, chills, and weight loss, Cardiovascular: Negative ma2 for chest pain, palpitations, and edema, Respiratory: Negative for shortness of breath, cough, wheezing, and pleuritic chest pain, Abdomen/GI: Negative for abdominal pain, nausea, diarrhea, and constipation. 09:03 All other systems are negative. Exam: 09:03 Constitutional: This is a well developed, well nourished patient who is awake, alert, ma2 and in no acute distress. Neck: Trachea midline, no thyromegaly or masses palpated, and no cervical lymphadenopathy. Supple, full range of motion without nuchal rigidity, or vertebral point tenderness. No Meningismus. Chest/axilla: Normal chest wall appearance and motion. Nontender with no deformity. No lesions are appreciated. Cardiovascular: Regular rate and rhythm with a normal S1 and S2. No gallops, murmurs, or rubs. Normal PMI, no JVD. No pulse deficits. Respiratory: Lungs have equal breath sounds bilaterally, clear to auscultation and percussion. No rales, rhonchi or wheezes noted. No increased work of breathing, no retractions or nasal flaring. Abdomen/GI: Soft, non-tender, with normal bowel sounds. No distension or tympany. No guarding or rebound. No evidence of tenderness throughout. Skin: Warm, dry with normal turgor. Normal color with no rashes, no lesions, and no evidence of cellulitis. Neuro: Awake and alert, GCS 15, oriented to person, place, time, and situation. Cranial nerves II-XII grossly intact. Motor strength 5/5 in all extremities. Sensory grossly intact. Cerebellar exam normal. Normal gait. Vital Signs: 07:14 BP 112 / 71; Pulse 72; Resp 16; Temp 98.1; Pulse Ox 100% on R/A; Weight 87.09 kg; iw Height 5 ft. 7 in. (170.18 cm); 08:17 BP 109 / 66; Pulse 70; Resp 18; Pulse Ox 100% ; Pain 0/10; ld1 09:30 BP 126 / 67; Pulse 67; Resp 18; Pulse Ox 100% ; Pain 00/10; ld1 10:42 BP 114 / 68; Pulse 60; Resp 17; Pulse Ox 99% ; jl7 10:43 BP 114 / 68; Pulse 62; Resp 17; Pulse Ox 100% ; Pain 0/10; ld1 07:14 Body Mass Index 30.07 (87.09 kg, 170.18 cm) iw MDM: 07:30 Patient medically screened. ny2 09:03 Differential diagnosis: hyperglycemia, new onset diabetes, has uti on UA, and HANNAH and ma2 hypokalemia. Data reviewed: vital signs, nurses notes. Counseling: I had a detailed discussion with the patient and/or guardian regarding: the historical points, exam findings, and any diagnostic results supporting the discharge/admit diagnosis, the presence of at least one elevated blood pressure reading (>120/80) during this emergency department visit, the need for further work-up and treatment in the hospital. Admission orders: after a detailed discussion of the patient's condition and case, the admit orders are written by me. 02/05 07:12 Order name: CBC with Diff; Complete Time: 08:39 [facility] 02/05 07:12 Order name: CMP; Complete Time: 08:39 [facility] 02/05 07:43 Order name: Glucose, Ancillary Testing; Complete Time: 08:39 [facility] 02/05 08:13 Order name: Urine Microscopic Only aa5 02/05 08:17 Order name: Hemoglobin A1c [facility] 02/05 08:42 Order name: Blood Culture Adult (2) ny2 02/05 08:42 Order name: Lactate [facility] 02/05 08:44 Order name: Urine Dipstick--Ancillary (enter results) 02/05 09:02 Order name: Urine Culture [facility] 02/05 09:32 Order name: COVID-19 : Document "Date of Symptom Onset" if Symptomatic. 02/05 09:57 Order name: CORONAVIRUS [facility] 02/05 10:48 Order name: SARS-COV-2 RT PCR [facility] 02/05 07:12 Order name: Urine Dipstick-Ancillary (obtain specimen); Complete Time: 08:10 ma2 Administered Medications: : Not Given (Other Intervention Used): NS 0.9% 1000 ml IV at 125 ml/hr continuous ld1 08:29 Drug: NS 0.9% 1000 ml Route: IV; Rate: 1 bolus; Site: right wrist; ld1 10:23 Follow up: Response: No adverse reaction; IV Status: Completed infusion; IV Intake: ld1 1000ml 08:40 Drug: Ciprofloxacin 400 mg Volume: 200 ml; Route: IVPB; Infused Over: 60 mins; Site: ld1 right wrist; 09:40 Follow up: IV Status: Completed infusion ld1 10:44 Follow up: Response: No adverse reaction ld1 09:23 Drug: Potassium Chloride 20 mEq Route: IV; Rate: calculated rate; Site: Port-a-cath; ld1 10:23 Follow up: IV Status: Completed infusion ld1 10:43 Follow up: BP 114 / 68; Pulse 62 bpm; Resp 17 bpm; Pulse Ox 100% ; Pain 0/10 Adult ld1 10:44 Follow up: Response: No adverse reaction ld1 10:45 Follow up: Response: No adverse reaction ld1 Disposition: 02/05/21 09:06 Hospitalization ordered by Joshua Garcia for Inpatient Admission. Preliminary diagnosis are Dehydration - with HANNAH, Acute cystitis without hematuria, Hypokalemia. - Bed requested for Telemetry/MedSurg (Inpatient). - Status is Inpatient Admission. jl7 - Condition is Stable. - Problem is new. - Symptoms are unchanged. Signatures: Dispatcher [employer] [facility] Masha Hendrickson RN RN dw Graciela Jackson RN RN iw Leal, Jahala, RN RN jl7 Cooper Luong MD MD ma2 Halie Olvera RN RN ld1 Corrections: (The following items were deleted from the chart) 07:42 07:42 HEMOGLOBIN A1C+CHEM A1C.LAB.BRZ ordered. [facility] 11:24 09:06 Hospitalization Ordered by Joshua Garcia MD for Inpatient Admission. Preliminary dw diagnosis is Dehydration - with HANNAH; Acute cystitis without hematuria; Hypokalemia. Bed requested for Telemetry/MedSurg (Inpatient). Status is Inpatient Admission. Condition is Stable. Problem is new. Symptoms are unchanged. ma2 12:21 11:24 02/05/2021 09:06 Hospitalization Ordered by Joshua Garcia MD for Inpatient jl7 Admission. Preliminary diagnosis is Dehydration - with HANNAH; Acute cystitis without hematuria; Hypokalemia. Bed requested for Telemetry/MedSurg (Inpatient). Status is Inpatient Admission. Condition is Stable. Problem is new. Symptoms are unchanged. dw
[2021-02-05] MEDS ORDERED: KCL 20 MEQ/100 mL IVPB 20 MEQ/100 ML BAG IV ONE (09:10)
[2021-02-05] MEDS: D5.45NS W/KCL 20MEQ 1,000 ML IV SCH ×2 (10:00→12:50)
[2021-02-05 12:28] VITALS: BMI 29.6
--- NOTE | 2021-02-05 14:28 | HP ---
Date of Admission: 02/05/2021 Chief Complaint: High blood sugar and low blood pressure. History Of Present Illness: This is a 60-year-old very pleasant female patient, who has lost approximately 30 pounds with strict diet control as recommended by her missile control pilot, Dr. Kelly and that actually has helped her to improve her chronic leg swelling problem. She was doing fine in her normal usual state of health until early this morning she checked her blood sugar was 300 and she is not diabetic, not on any diabetes medication and her blood pressure was 80/40 at home, so she came to emergency room. After she was evaluated in the ER, she was admitted to the hospital when I saw her in the emergency room. The patient was noted to have urinary tract infection with acute kidney injury. When I saw her in the ER, she denied any nausea, vomiting, diarrhea. No fever. No chills. No bleeding. Allergies: TO PENICILLIN CAUSING RASH, CEPHALEXIN CAUSING RASH AND ITCHING, TETRACYCLINE CAUSING RASH, CODEINE CAUSING ITCHING, AND NUCYNTA CAUSING RASH. Medications: List reviewed. Review of Systems: Endocrine: As mentioned above. Constitutional: As mentioned above. All other systems reviewed and negative. Past Medical History: Significant for hypothyroidism, asthma, obstructive sleep apnea, hypertension, hyperlipidemia, leg edema, rheumatoid arthritis, thrombocytopenia, and depression. Past Surgical History: Tonsillectomy, cholecystectomy, hysterectomy, removal of squamous cell carcinoma, and breast augmentation. Family History: Father due to mesothelioma. Brother has hyperlipidemia. Sister hyperlipidemia and lupus. Social History: Negative for smoking and alcohol. Physical Examination: Vital Signs: Her blood pressure 109/66, pulse 70, respiratory rate 18, oxygen saturation 100%. Weight 87.09 kg, height 5 feet 7 inches. General: Awake, alert, oriented, not in distress. HEENT: Head atraumatic, normocephalic. Conjunctivae nonerythematous. Sclerae white. Mouth, no thrush or edema noted. Ears/Nose, no mass, lesion, discharge noted. Neck: Supple. No JVD, lymph nodes, bruit, thyromegaly noted. Lungs: Bilateral good equal air entry. Clear to auscultation. No rhonchi. No rales. Heart: Normal heart sounds, no murmur or gallop. Abdomen: Soft, bowel sounds normal. No guarding, rigidity, tenderness, mass, hepatosplenomegaly, distention, or bruit noted. Extremities: No leg edema. No calf tenderness. Skin: No rash, ulcer, cellulitis. Lymphatics: No lymph node enlargement in neck, supraclavicular, infraclavicular region. Neuro: No focal neurological deficit. Chest: Unremarkable. External Genitalia: Deferred. Rectal: Deferred. Laboratory Data: Urinalysis; 10-20 WBC, nitrite negative, leukocyte esterase 3+, bacteria less than 20, and RBC 5-10. White count 6.10, hemoglobin 12.4, platelets 180. Sodium 138, potassium 3, chloride 97, bicarb 34, BUN 30, creatinine 1.70, glucose 88. Liver function tests unremarkable. Alkaline phosphatase 123. Impression: 1. Acute kidney injury. 2. Urinary tract infection. 3. Hypothyroidism. 4. Asthma. 5. Obstructive sleep apnea. 6. Hypertension. 7. Hyperlipidemia. 8. Rheumatoid arthritis. 9. Thrombocytopenia. 10. Depression. Plan: Admit the patient to hospital for further evaluation and management of this problem. The patient is appropriate for inpatient and is expected to spend 2 midnights in hospital. We will go ahead and continue home medications per order. IV fluid bolus was given in the emergency room and then we will continue IV fluid at 100 cc/hour. Empiric antibiotic, Cipro was started. We will continue that. Follow up on urine culture results and depending on the culture results, we will decide about any culture specific antibiotics. DVT prophylaxis will be given per order and we will repeat blood work tomorrow. Details and plan of treatment discussed with her. The patient reports that she had asbestosis screening done through some outside farm and she was told to have a spot in her lung or enlarged mediastinal node, she is not quite clear on that. We will go ahead and get a CAT scan of the chest without contrast for evaluation. She reports that she had such tests done, but she does not know the results on that. I will see her tomorrow for followup. INDER/MARIA Voice ID: [id number] JASVIR
[2021-02-05 15:56] LABS: Urine Blood TRACE (Negative); Urine Glucose NEGATIVE (Negative); Urine Protein NEGATIVE (NEG); Urine pH 5.5 (5.0-7.0)
[2021-02-05] MEDS ORDERED: CLONAZEPAM 1 MG PO PRN (16:51)
[2021-02-05] MEDS: TRAMADOL HCL 50 MG PO SCH (17:00)
[2021-02-05] MEDS: NA CHLORIDE 0.9% 1,000 ML IV SCH (17:41)
[2021-02-05] MEDS: POTASSIUM 25 MEQ EFFERV TAB PO SCH (20:22)
[2021-02-05] MEDS: CYCLOBENZAPRINE 10 MG PO SCH (20:26)
[2021-02-05] MEDS: Levofloxacin 750mg IV 750 MG/150 ML BAG IV SCH (20:28)
[2021-02-05] MEDS: Gabapentin 300 MG Capsule PO SCH (20:29)
[2021-02-05] MEDS: NEBIVOLOL HCL 5 MG PO SCH (20:30)
[2021-02-05] MEDS: Omeprazole [Prilosec] 40 MG Capsule.Dr PO SCH (20:31)
[2021-02-05] MEDS: SODIUM OXYBATE PO SCH (20:33)
[2021-02-05] MEDS: PREGABALIN 75 MG PO SCH (20:33)
[2021-02-05] MEDS: HYDROXYCHLOROQUINE 200 MG PO SCH (20:34)
[2021-02-05] MEDS: CYCLOSPORINE OPTH SCH (20:37)
[2021-02-05] MEDS: ZOLPIDEM TARTRATE 10 MG PO SCH (21:00)
[2021-02-06] MEDS: TRAMADOL HCL 50 MG PO SCH ×4 (00:14→16:42)
[2021-02-06 01:50] VITALS: O2SAT 97
[2021-02-06] MEDS: LEVOTHYROXINE 0.05 MG PO SCH (05:39)
[2021-02-06 07:50] LABS: Absolute Lymphocytes (CBC) 1.4 K/uL (0.7-4.9); Basophils % 0.8 % (0-1.3); Lymphocytes % 39.8 % (15.3-44.8); MPV 7.4 fL (7.6-11.3); RBC Red Blood Cell Count 3.09 M/uL (3.86-4.86)
[2021-02-06 08:05] LABS: Magnesium 1.9 mg/dL (1.8-2.4); Potassium 3.9 mmol/L (3.5-5.1)
[2021-02-06] MEDS: PREGABALIN 75 MG PO SCH ×2 (09:00→20:50)
[2021-02-06] MEDS ORDERED: MONTELUKAST 10 MG PO SCH (09:00)
[2021-02-06] MEDS: POTASSIUM 25 MEQ EFFERV TAB PO SCH ×2 (09:00→20:55)
[2021-02-06] MEDS: CYCLOBENZAPRINE 10 MG PO SCH ×3 (09:00→21:16)
[2021-02-06] MEDS ORDERED: VALACYCLOVIR 500 MG PO SCH (09:00)
[2021-02-06] MEDS ORDERED: ENOXAPARIN 40 MG/0.4 ML SQ SCH (09:00)
[2021-02-06] MEDS ORDERED: DEXMETHYLPHENIDATE HCL 40 MG PO SCH (09:00)
[2021-02-06] MEDS: NEBIVOLOL HCL 5 MG PO SCH ×2 (09:00→20:49)
[2021-02-06] MEDS: SODIUM OXYBATE PO SCH ×2 (09:00→21:00)
[2021-02-06] MEDS: Gabapentin 300 MG Capsule PO SCH ×2 (09:00→21:18)
[2021-02-06] MEDS ORDERED: POTASSIUM CL 8 MEQ PO SCH (09:00)
[2021-02-06] MEDS ORDERED: ROSUVASTATIN 10 MG PO SCH (09:00)
[2021-02-06] MEDS: CYCLOSPORINE OPTH SCH ×2 (09:00→21:00)
[2021-02-06] MEDS: Omeprazole [Prilosec] 40 MG Capsule.Dr PO SCH ×2 (09:00→21:00)
[2021-02-06] MEDS ORDERED: DULOXETINE HCL 30 MG PO SCH (09:00)
[2021-02-06] MEDS ORDERED: BUPROPION 150 MG PO SCH (09:00)
[2021-02-06] MEDS ORDERED: ARIPIPRAZOLE 5 MG PO SCH (09:00)
[2021-02-06 09:39] LABS: Blood Morphology Comment NOT SEEN (NOT SEEN); Platelet Estimate DECR
[2021-02-06] MEDS: HYDROXYCHLOROQUINE 200 MG PO SCH ×2 (14:07→21:16)
[2021-02-06] MEDS: NA CHLORIDE 0.9% 1,000 ML IV SCH ×2 (14:20→21:34)
[2021-02-06] MEDS: Levofloxacin 750mg IV 750 MG/150 ML BAG IV SCH (20:56)
[2021-02-06] MEDS: ZOLPIDEM TARTRATE 10 MG PO SCH (21:17)
[2021-02-07] MEDS: TRAMADOL HCL 50 MG PO SCH (01:00)
[2021-02-07] MEDS: LEVOTHYROXINE 0.05 MG PO SCH (06:00)
--- NOTE | 2021-02-07 07:02 | PN ---
Date of Progress Note: 02/06/2021 Subjective: Patient was seen this morning for followup. No new complaints or problems reported by h er. No nausea, vomiting. No abdominal pain. Objective: VITAL SIGNS: Reviewed. HEENT: Unremarkable. LUNGS: Clear to auscultation. CARDIAC: Heart sounds normal. ABDOMEN: Soft. Bowel sounds normal. No guarding, rigidity, tenderness, or distention. EXTREMITIES: No leg edema. Laboratory Data: White count 3.5, hemoglobin 10.4 platelets 140. Sodium 144, potassium 3.9, chlorid e 110, bicarb 30, BUN 15, creatinine 0.90, glucose 100, magnesium 1.9. Blood culture negative. Urin e culture pending. Impression: 1.Urinary tract infection. 2.Anemia, unspecified. 3.Hypertension. Plan: We will continue current medication. Continue current empiric antibiotic. Once we get the fi nal results on the urine culture, then we will decide about discharging home with culture specific an tibiotics. Continue current medical management and DVT prophylaxis. I will see her tomorrow for fol lowup, possible discharge tomorrow. INDER/MODL Voice ID: [id number] Report ID: [id number]
[2021-02-07 08:49] VITALS: BP 110/56; TEMP 97.4
--- NOTE | 2021-02-07 20:47 | DS ---
Date of Discharge: 02/07/2021 Disposition: Discharged to go home. Physical Examination: HEENT: Unremarkable. Lungs: Clear to auscultation. Heart: Sounds normal. Abdomen: Soft. Bowel sounds normal. No guarding, rigidity, tenderness, distention. Extremities: No leg edema. Discharge Medications And Instructions: Continue all prior home medications except do not take any losartan and do not take any Bystolic. Check blood pressure 2 to 3 times a day and bring home blood pressure machine and readings to office at the time of followup visit and patient to follow up at my office next week on Friday, which is 02/13/2021. The patient to take Bystolic 10 mg and patient to take half a tablet by mouth once a day only if systolic blood pressure is higher than 130. Take Levaquin 500 mg daily for 1 week. Hospital Course: A 60-year-old pleasant female patient admitted to hospital with low blood sugar and low blood pressure. Please see dictated H and P for more information. The patient was evaluated in ER. She was admitted to the hospital with acute kidney injury and urinary tract infection. She was given IV fluid. Her renal function improved. Urinalysis showed evidence of urinary tract infection and empiric antibiotic was started Levaquin. Urine culture and blood culture were done. Blood culture remained negative. Urine culture came back no growth. Symptomatically, patient has improved very well. She is feeling much better. Her blood pressure has remained either normal or on lower side with systolic blood pressure around 100 to 110 range. She has lost weight with some diet program that she is following, and I have instructed her to discontinue losartan completely and not to take her Bystolic that she takes normally 10 mg 2 times a day and instead of that she will monitor her blood pressure and if systolic blood pressure is higher than 130, then on that particular day she will take only 5 mg dose of Bystolic. I will see her at office next week for followup. Final Diagnoses: 1. Acute kidney injury. 2. Urinary tract infection. 3. Hypertension. 4. Hypothyroidism. 5. Asthma, mild, intermittent. 6. Obstructive sleep apnea. 7. Hyperlipidemia. 8. Rheumatoid arthritis. 9. Thrombocytopenia. 10. Depression. Laboratory Data: Urinalysis; 10-20 WBC, nitrite negative, leukocyte esterase 3+, bacteria less than 20, and RBC 5-10. White count 6.10, hemoglobin 12.4, platelets 180. Sodium 138, potassium 3, chloride 97, bicarb 34, BUN 30, creatinine 1.70, glucose 88. Liver function tests unremarkable. Alkaline phosphatase 123. INDER/MODL Voice ID: [id number] Report ID: [id number]
== END 2021-02-07 09:56 | disposition home or self-care (01) | DRG 683 ==
LOC: ER 06:56 → ERHOLD 09:08 → 2ND 12:02
PROVIDERS: ADMIT Internal Medicine; ATTEND Internal Medicine
DX: N17.9 Acute kidney failure, unspecified (principal); N39.0 Urinary tract infection, site not specified; E78.5 Hyperlipidemia, unspecified; I10 Essential (primary) hypertension; F32.9 Major depressive disorder, single episode, unspecified; D69.6 Thrombocytopenia, unspecified; M06.9 Rheumatoid arthritis, unspecified; G47.33 Obstructive sleep apnea (adult) (pediatric); J45.909 Unspecified asthma, uncomplicated; D64.9 Anemia, unspecified; E03.9 Hypothyroidism, unspecified; Z88.0 Allergy status to penicillin; Z88.8 Allergy status to other drugs, medicaments and biological substances; Z88.1 Allergy status to other antibiotic agents; Z91.040 Latex allergy status; Z88.5 Allergy status to narcotic agent; Z79.890 Hormone replacement therapy; Z79.899 Other long term (current) drug therapy; Z90.49 Acquired absence of other specified parts of digestive tract; Z90.710 Acquired absence of both cervix and uterus; Z20.822 Contact with and (suspected) exposure to COVID-19
CPT/HCPCS: 36415; 80048; 80053; 81003; 81015; 82947; 83036; 83605; 83735; 85025; 87040; 87086; 87088; 99285; J0744; J1650; J3480; J7030; U0003

== ENCOUNTER 2021-02-10 19:41 | Emergency (ER) | payer BC, OTHER ==
--- OUTSIDE RECORDS SUMMARY | 2021-02-10 19:45 | XMS REPORT | Continuity of Care Document ---
:[address] [facility] t Address [address] [place] [address] Care Team Providers Name Role Phone WOOD [...] 2014-07-22 Memoria 07-22 08:35:31 l LUMBAR 00:00: [place] HNP 00 Active 07/22/2014 Condition 4 Mischer [...] psychiatri d it y of c c [place] treatment treatment Phys ici ans History of [...] Univers lower lower ity of quadrant quadrant [place] abdominal abdominal Phys ici tenderness tenderness an s Vaginal Vaginal Problem Active Univers discharge discharge ity of [place] Physici ans Breast Breast Problem Active Univers mass mass ity of [place] Physici ans Incontinen Incontinen Problem Active U nivers ce in ce in ity of female female [place] Physici ans Mixed Mixed Problem Active Univers stress and stress and it y of urge urge [place] urinary urinary Physici incontinen incontinen an s ce ce Urinary Urinary Problem Active Univers frequency frequency ity of [place] Physici ans Urinary Urinary Problem Active Univers urgency urgency ity of [place] Physici ans Vaginal Vaginal Problem Active Univers atrophy atrophy ity of [place] Physici ans Breast Breast Problem Active Univers pain in pain in ity of female female [place] Physici ans Well Well Problem Active Univers female female ity of exam [facility] routine routine Physici gynecologi gynecologi an s nikos exam nikos exam Allergies, Adverse Reactions, Alerts Allergy Allergy Status Severity Reaction(s) Onset Inactive Treating Comm ents Source Name Type Date Date Clinician CODEINE CODEINE Active Memoria 07-22 l 00:00: Demarcus 00 Cephalos Allergy Active Univers porins to drug ity of (finding [place] ) Physici ans Codeine Allergy Active Univers Derivati to drug ity of ves (finding [place] ) Physici ans Penicill Allergy Active Univers ins to drug ity of (finding [place] ) Physici ans Latex Allergy Active Univers to ity of substanc [place] e Physici (finding ans ) tetracyc Allergy Active Univers line to drug ity of (finding [place] ) Physici ans Family History Family Member Diagnosis Comments Start Date Stop Date Source Mother Family history of Univers ity of [place] diabetes mellitus Physici ans Father Family history of Univers ity of [place] Mesothelioma Physicians Brother Family history of Univers ity of [place] malignant melanoma Physic ians Brother Family history of Univers ity of [place] hypertension Physicians Sister Family history of Univers ity of [place] hypertension Physicians Social History Social Habit Start Date Stop Date Quantity Comments Source Sex Assigned At [facility] Smoking Status Start Date Stop Date Source Never smoked tobacco (finding) [facility] Medications Ordered Filled Start Stop Current Ordering Indication Dosage Frequency Signature Comments Components Source Medication Medication Date Date Medication? Clinician (SIG) Name Name Nystatin-Tr Nystatin-Tr 2019-0 Yes SUBHRATHA APPLY Univers iamcinolone iamcinolone 6-05 YESY SPARINGLY ity of 357608-1.1 747930-7.1 00:00: M.D. TO [place] UNIT/GM-% UNIT/GM-% [...] CREAM 9-12 pumps to l 00:00: the Demarcus 00 affected area 3-4 times daily. MOBIC 15 MG Yes 1 tab po Me moria TABS 9-12 qd l 00:00: Demarcus 00 LIDODERM 5 Yes apply to Mem oria % PTCH 9-12 affected l 00:00: area 12h Demarcus 00 on 12h off per 24h prn pain COMPOUND Yes apply 2-3 Reji zia PAIN CREAM 9-12 pumps to l 00:00: the [place] 00 affected area 3-4 times daily. Prazosin [...] M.A. Uni vers TABS TABS ity of [facility] [place] ans Co Q 10 Co Q 10 Yes M.A. Univers CAPS CAPS ity of [facility] [place] ans Restasis Restasis Yes M.A. Univers EMUL EMUL ity of [facility] [place] ans Crestor 5 Crestor 5 Yes M.A. Unive rs MG Oral MG Oral ity of Tablet Tablet [facility] [place] ans Bystolic 10 Bystolic 10 Yes M.A. U nivers MG Oral MG Oral ity of Tablet Tablet [facility] ans Levothyroxi Levothyroxi Yes M.A. U nivers ne Sodium ne Sodium ity o f 50 MCG Oral 50 MCG Oral [place] Tablet Tablet [facility] ans Ambien 10 Ambien 10 Yes M.A. Unive rs MG Oral MG Oral ity of Tablet Tablet [facility] [place] ans Dexmethylph Dexmethylph Yes M.A. U nivers enidate HCl enidate HCl i ty of ER 40 MG ER 40 MG [place] Oral Oral [facility] Capsule Capsule ans Extended Extended Release 24 Release 24 Hour Hour clonazePAM clonazePAM Yes M.A. Uni vers 1 MG Oral 1 MG Oral ity o f Tablet Tablet [facility] ans Hydroxychlo Hydroxychlo Yes M.A. U nivers roquine roquine ity of Sulfate 200 Sulfate 200 [place] MG Oral MG Oral Physic Tablet Tablet ans Ondansetron Ondansetron Yes M.A. U nivers HCl - 4 MG HCl - 4 MG ity of Oral Tablet Oral Tablet [place] Physici ans Urodol TABS Urodol TABS Yes M.A. U nivers ity of [facility] [place] ans Xyrem SOLN Xyrem SOLN Yes M.A. Uni vers ity of [place] Physici ans Immunizations Ordered Immunization Filled Immunization Date Status Commen ts Source Name Name Amos Quadrivalent 2020-07-11 Completed Univ ersity of 0.5 ML Intramuscular 00:00:00 Carlos duncan Physicians Solution Prefilled Syringe Vital Signs Vital Name Observation Time Observation Value Comments Source Systolic blood 2020-09-25 127 mm[Hg] Location: JACK; [facility] 09:23:00 Position: [place] Physician s Sitting Diastolic blood 2020-09-25 80 mm[Hg] [facility] 09:23:00 Position: [place] Physician s Sitting Body height 2020-09-25 67 [in_us] [facility] 09:23:00 [place] Physician s Weight 2020-09-25 218.375 [lb_av] University o f 09:23:00 [place] Physician s Body mass index 2020-09-25 34.2 kg/m2 University o f (BMI) [Ratio] 09:23:00 [place] Physicnc ns Body temperature 2020-09-25 96.3 [degF] Method: [facility] 09:23:00 Temporal [place] Physician s Systolic blood 2020-04-14 138 mm[Hg] [facility] 08:32:00 Position: [place] Physician s Sitting Diastolic blood 2020-04-14 77 mm[Hg] [facility] 08:[facility] Position: [place] Physician s Sitting Body height 2020-04-14 67 [in_us] [facility] 08:32:00 [place] Physician s Weight 2020-04-14 200 [lb_av] [facility] 08:32:00 [place] Physician s Body mass index 2020-04-14 31.32 kg/m2 University o f (BMI) [Ratio] 08:32:00 [place] Physicia ns Body temperature 2020-04-14 97.8 [degF] Method: [facility] 08:32:00 Temporal [place] Physician s Heart Rate 2020-04-14 70 /min [facility] 08:32:00 [place] Physician s BP Systolic 2019-08-18 136 mm[Hg] [facility] Position: [place] Physician s Sitting BP Diastolic 2019-08-18 80 mm[Hg] Location: JACK; [facility] 15:52:00 Position: [place] Physician s Sitting Height 2019-08-18 67 [in_us] [facility] 15:52:00 [place] Physician s Weight 2019-08-18 216.375 [lb_av] University o 15:52:00 [place] Physician s Body Mass Index 2019-08-18 33.89 kg/m2 University o Calculated 15:52:00 [place] Physician s Temperature 2019-08-18 98.7 [degF] [facility] 15:52:00 [place] Physician s BP Systolic 2019-08-09 119 mm[Hg] Location: [facility] 10:10:00 Position: [place] Physician s Sitting BP Diastolic 2019-08-09 74 mm[Hg] Location: [facility] 10:10:00 Position: [place] Physician s Sitting Height 2019-08-09 67 [in_us] [facility] 10:10:00 [place] Physician s Weight 2019-08-09 214.375 [lb_av] [place] o 10:10:00 [place] Physician s Body Mass Index 2019-08-09 33.58 kg/m2 [place] o Calculated 10:10:00 [place] Physician s Weight 2014-07-22 [facility] Jairon n 13:35:31 Height 2014-07-22 [facility] Jairon n 13:35:31 Temperature Oral 2014-07-22 96.4 F [facility] rmann (F) 13:35:31 Respitory Rate 2014-07-22 [facility] grady 13:35:31 Heart Rate 2014-07-22 [facility] Jairon n 13:35:31 Systolic (mm Hg) 2014-07-22 [facility] rmann 13:35:31 Diastolic (mm Hg) 2014-07-22 [facility] ermann 13:35:31 Procedures Procedure Date / Time Performing Clinician Source Performed [place] Digital Mammo Screening 2020-09-25 00:00:00 [facility] Elbert G0202 Physicians SARS-COV2/RT-PCR ([facility] & 2020-05-04 14:00:00 [facility] - REF LABS) [facility] [QL] TSH, 3RD GENERATION 2020-04-14 00:00:00 Uni versity of [place] W/REFLEX TO FT4 Physicians [QL] PROLACTIN 2020-04-14 00:00:00 University o f [place] Physicians [place] Digital Mammo DX Elbert w 2020-04-14 00:00:00 [facility] ed G0204 [place] [id number] 2019-08-23 00:00:00 Unive rsity [facility] Physicians [QLH] CULTURE, URINE, 2019-08-18 00:00:00 [facility] ROUTINE Physicians [place] Digital Mammo DX El[place] 2019-08-13 00:00:00 Univ [facility] G0204 Physicians US Breast Bilat [id number] 2019-08-13 00:00:00 Unive [facility] Physicians [place] Digital Mammo Screening 2019-08-09 00:00[facility] G[facility]2 Physicians US Pelvis with Pelvis 2019-08-09 00:00:00 [facility] Transvaginal [id number] Physicians . [facility] - Affirm VPIII 2019-08-09 00:00:00 [facility] (BV Panel) Physicians . [facility] - GC/Chlamydia 2019-08-09 00:00:00 [facility] Physicians History of Total Abdominal Unive [facility] Hysterectomy Physicians History of Breast [facility] augmentation Physicians History of Ostectomy of [facility] calcaneus for spur Physicians History of Tonsillectomy [facility] Physicians History of Adenoidectomy [facility] Physicians History of Cholecystectomy Unive [facility] Physicians History of Shoulder University o f [place] Surgery Physicians History of Complete University o f [place] Colonoscopy Physicians History of Colonic [facility] polypectomy Physicians Encounters Start End Encounter Admission Attending Care Care Encounter Source Date/Time Date/Time Type Type Clinicians Facility Department ID 2021-01-22 2021-01-22 Outpatient [facility] [id number] 00:00:00 00:00:00 067 Method i 2021-01-22 2021-01-22 Outpatient [facility] [id number] 00:00:00 00:00:00 WOJCIECH 510 Method i 2021-01-22 2021-01-22 Outpatient [facility] [id number] 00:00:00 00:00:00 WOJCIECH 539 Method i 2021-01-20 2021-01-20 Emergency [facility], [facility] [id number] [place] 00:00:00 00:00:00 UVALDO [address] 2020-10-16 2020-10-16 Laboratory Lab, Adc RUST [id number] 16:55:10 17:15:10 Only Fam Pob I [facility] [id number] [place] [id number] [place] [id number] nal [address] 2020-10-16 2020-10-16 Letter Doctor BENY [id number] 00:00:00 00:00:00 (Out) Unassigned, TERESA [id number] [place] [facility] [id number] 2020-09-25 2020-09-25 Appointmen FERNANDO MCKEON Women's [id number] Univers 09:00:00 09:00:00 t; LUCAS MCKEON M.D. [facility] stacy Kristi ZAVALA M.D. Physici ans 2020-08-03 2020-08-03 Outpatient GIBBONS, [facility] [id number] 00:00:00 00:00:00 LIUDMILA [address] 2020-08-02 2020-08-02 Outpatient [place], [facility] [id number] [place] 00:00:00 00:00:00 LIUDMILA [address] 2020-08-01 2020-08-01 Outpatient [place], [facility] [id number] 00:00:00 00:00:00 LIUDMILA [address] 2020-08-01 2020-08-01 Outpatient [place], [facility] [id number] 00:00:00 00:00:00 LIUDMILA [address] 2020-07-31 2020-07-31 Outpatient [place], [facility] [id number] [place] 00:00:00 00:00:00 LIUDMILA [address] 2020-07-25 2020-07-25 Outpatient [place], [facility] [id number] [place] 00:00:00 00:00:00 LIUDMILA [address] 2020-06-22 2020-06-22 Outpatient STADNYK, [facility] [id number] 00:00:00 00:00:00 SIL [address] 2020-04-17 2020-04-17 Appointmen FERNANDO HAYWARD UTP [id number] Univers 15:40:00 15:40:00 t; Ty FRAZIER M.D. [place] Jaskaran FRAZIER M.D. ans 2020-04-14 2020-04-14 Appointmen FERNANDO HAYWARD Women's [id number] Univers 08:30:00 08:30:00 t; KARIN [facility] y lorena HAYWARD M.D. Kristi Gonzalez s KARIN [facility] Son ans 2019-09-16 2019-09-16 Appointmen FERNANDO ROPER Urogynecolo [id number] Univers 09:50:00 09:50:00 t; ELIOT ROPER gy [facility] lorena MCCABE M.D. [place] [facility] Son Physici ans 2019-09-15 2019-09-15 Appointmen FERNANDO ROPER [facility] [id number] Univers 11:20:00 11:20:00 t; ELIOT ROPER ity of [place], M.D. [place] M.D. Physici ans 2019-08-18 2019-08-18 Appointmen JACQUELIN, FERNANDO Urogynecolo [id number] Univers 15:40:00 15:40:00 t; ELIOT ROPER gy [facility] Son [place] Carlos duncan M.D. Physici ans 2019-08-09 2019-08-09 Appointmen MIKEFERNANDO Women's [id number] Univers 10:30:00 10:30:00 t; LUCAS MCKEON M.D. [facility] Kristi ZAVALA M.D. Physici [facility] Results Test Description Test Time Test Comments Results Result Comments Source SARS-CoV2/RT-PCR ([facility] & Ref Labs) 2020-05-04 18:46:00 Test Item Value Reference Range Interpretation Comme nts SARS-COV2/RT-PCR (test code = Detected Not Detected, Negative A A 96130-6) SARS-COV-2 PERFORMING LAB [facility] (test code = 67606-5) MIKAYLA (test code = MIKAYLA) Results are for the detection of SARS-CoV-2 RNA. The SARS-CoV-2 RNA is generally detectable in nasopharyngeal swab specimens during the acute phase of infection. Positive results are indicative of active infection with SARS-CoV-2; clinical correlation with patient history and other diagnostic information is necessary to determine patient infection status. Positive results do not rule out bacterial infection or co-infection with other viruses. The agent detected may not be the definite cause of disease. The limit of detection for this assay is 250 copies/mL. This SARS CoV-2 test is a rapid, real-time RT-PCR test intended for the qualitative detection of nucleic acid from SARS-CoV-2 in a nasopharyngeal swab specimen collected from individuals suspected of COVID-19 by their healthcare provider. This test has not been Food and Drug Administration (FDA) cleared or approved and has been authorized by FDA under an Emergency Use Authorization (EUA). This EUA will be effective until the declaration that circumstances exist justifying the authorization of the emergency use of in vitro diagnostic tests for detection and/or diagnosis of COVID-19 is terminated under Section 564(b)(2) of the Act or the EUA is revoked under Section 564(g) of the Act. Fact Sheet for Healthcare Providers:https://www.otelz.com/Documents/Xpert%20Xpre ss%20SARS%20CoV-2/Fact%20She ets/3023802%26FSLP-GDU-3%20 HEALTHCARE%20PROVIDERS%20FAC T%20SHEET.pdf Fact Sheet for Healthcare Patients:https://www.ScoreStream/Documents/Xpert%20Xpres s%20SARS%20CoV-2/Fact%20Shee ts/3023801%21RLPS-KOQ-7%20P ATIENT%20FACT%20SHEET.pdf Performing Laboratory:[facility] [place] [address] Lab Interpretation (test code Abnormal = 37378-7) [facility] & REF LABS)2020-05-04 18:46:00 Test Item Value Reference Range Interpretation Comments SARS-COV2/RT-PCR (test code = Detected Not Detected, Negative A A 1060768) SARS-COV-2 PERFORMING LAB [facility] (test code = 7585013) Results are for the detection of SARS-CoV-2 RNA. The SARS-CoV-2 RNA is generally detectable in nasopharyngeal swab specimens during the acute phase of infection. Positive results are indicative of active infection with SARS-CoV-2; clinical correlation with patient history and other diagnostic information is necessary to determine patient infection status. Positive results do not rule out bacterial infection or co-infection with other viruses. The agent detected may not be the definite cause of disease. The limit of detection for this assay is 250 copies/mL.This SARS CoV-2 test is a rapid, rckg-kwqxPN-VGA test intended for the qualitative detection of nucleic acid from SARS-CoV-2 in a nasopharyngea l swab specimen collected from individuals suspected of COVID-19 by their healthcare provider.This test has not been Food and Drug Administration (FDA) cleared or approved and has been authorized by FDA under an Emergency Use Authorization (EUA). This EUA will be effective until the declaration that ci rcumstances exist justifying the authorization of the emergency use of in vitro diagnostic tests fordetection and/or diagnosis of COVID-19 is terminated under Section 564(b)(2) of the Act or the EUA is revoked under Section 564(g) of the Act.Fact Sheet for Healthcare Providers:https://www.Social Games Herald/ Documents/Xpert%20Xpress%20SARS%20CoV-2/Fact%20Sheets/302-3802%98PYKL-FKJ-4%20HE ALTHCARE%20PROVIDERS%20FACT%20SHEET.pdfFact Sheet for Healthcare Patients:https://www.Social Games Herald/Documents/Xpert%20Xpress %20SARS%20CoV-2/Fact%20Sheets/302-3801%18BXIT-LPK-6%20PATIENT%20FACT%20SHEET.pdf Performing Laboratory:[facility], [place] [address]QC Pelvis with Pelvis Transvaginal [id number] 09:51:00STUDY: Pelvis w Pelvis Transvaginal USCOMPARISON: None.HISTORY: - Right lower quadrant abdominal tenderness.FINDINGS:Transvaginal and transabdominal ultrasound images of the pelvis were obtained.Uterus: Has been removed.Ovaries: Have been removed.Pelvic fluid: None.IMPRESSION:Status post hysterectomy and bilateral salpingooophorectomy.Otherwise no significant abnormality.--Read by: Kelvin Lewis MDDictated Date/time: 08/23/19 10:39Electronically Signed by: Yuecandis Dixieprakash Bull 08/23/1910:40FINAL REPORTUnDavis Hospital and Medical Center PhysiciansUS Breast [id number] 08:22:00COMPLETE ULTRASOUND OF LEFT BREAST AND AXILLA: 08/23/2019CLINICAL: /N63.0 Unspecified Lump In Unspecified Breast. COMPARISON:Comparison is made to exam dated: 08/23/2019 mammogram - [place] [facility]. TECHNIQUE: Color flow and real- time ultrasound of the left breast fourquadrants and axilla regions were performed on the areas of interest. FINDINGS:No sonographic features of malignancy are identified in the area of initialpalpable concern in the upper outer quadrant left breast, which the patientstated was the area (as best she could remember) of the dimpling detected byher physician, nor remainder of the left breast.No lymphadenopathy seen. IMPRESSION: BENIGNRECOMMENDATION:Clinical follow-up for the area of palpable concern is recommended.Continued breast self-examination is encouraged.There is no sonographic evidence of malignancy. A 1 year screening mammogram is recommended.(08/23/2020) These results were personally discussed with the patient. Professional services are provided by the [facility].Bashir Esparza M.D. levi/:08/23/2019 09:14:30 Spare Person(s): Alyx Almaraz RDMS, [facility] Imagingletter sent: BI-RADS 1/2 Ultrasound BI-RADS: 2 Benign--Read by: Bashir Esparzaictated Date/time: 08/23/19 09:14Electronically Signed by: Bashir Esparza MD 08/23/1909:14FINAL REPORT [facility] Digital Mammo DX Elbert w ed [id number] 07:40:00BILATERAL DIGITAL DIAGNOSTIC MAMMOGRAM 3D/2D WITH CAD: 08/23/2019CLINICAL: N63.0 Unspecified Lump InUnspecified Breast/N63.0. Current study was evaluated with a Computer Aided Detection (CAD) system. COMPARISON:No previous mammograms available for comparison at time of imageinterpretation. These have been requested. TECHNIQUE: Digital Breast Tomosynthesis was performed and utilized forInterpretation. Current study was also evaluated with a Computer AidedDetection (CAD) system.FINDINGS:There are scattered fibroglandular densities in both breasts. Bilateral prepectoral saline implants are present. The area of palpableconcern was dimpling in the left breast detected by the patient's caregiver,which the patient could not specifically point to at the technologist at thetime of the mammogram. No significant masses, calcifications, or other findings are seen in eitherbreast. IMPRESSION: INCOMPLETE:NEEDS ADDITIONAL IMAGING EVALUATIONRECOMMENDATION:There is no abnormality seen in the left breast tocorrespond with the paincentral to the nipple, however, clinical correlation, clinical followup, andultrasound are recommended. The area of palpable concern was dimpling in the left breast detected by thepatient's caregiver, which the patient could not specifically point to thetechnologist at the timeof the mammogram. There is no gross abnormality seenin the left breast to correspond with the palpable abnormality, however,clinical correlation, clinical followup, and ultrasound are recommended. Professional services are provided by the [facility] of Diagnostic Imaging.Bashir Esparza M.D. levi/:08/23/2019 09:13:09 Spare Person(s): [facility] ImagingMammogram BI-RADS: 0 Indeterminate--Read by: Bashir Esparza MDDictated Date/time: 08/23/19 09:13Electronically Signed by: Bashir Esparza NV9:13FINAL REPORTUnDavis Hospital and Medical Center Physicians[[facility]] CULTURE, URINE, [id number] 16:33:01 Test Item Value Reference Range Interpretation Comments FINAL REPORT (test code = FINAL No Growth REPORT) [facility] Physicians[O] Urine Dipstick (In Office)2019-08-18 16:32:00 Test Item Value Reference Range Interpretation Comments Glucose (test code = Glucose) neg N LEUKOCYTES (test code = LEUKOCYTES) neg N NITRITE; Normal (test code = 09634-6) neg N UROBILINOGEN; Normal (test code = 0.2 N 52167-2) PROTEIN; Normal (test code = 23133-3) neg N pH (test code = pH) 7.5 N URINE BLOOD; Normal (test code = neg N 33014-0) SPECIFIC GRAVITY; Normal (test code = 1.020 N 2965-2) KETONES; Normal (test code = 61719-5) neg N BILIRUBIN; Normal (test code = 34019-5) neg N [facility] Physicians. [facility] - Affirm VPIII (BV Panel)2019-08-09 00:00:00 Test Item Value Reference Range Interpretation Comments Affirm VPIII (BV Panel) REPORT See Comment (test code = Affirm VPIII (BV Panel) REPORT) [facility] Physicians. [facility] - GC/[id number] 00:00:00 Test Item Value Reference Range Interpretation Comments GC REPORT (test code = GC REPORT) Negative Chlamydia REPORT (test code = Negative 98704-2) [facility] Physicians
[2021-02-10] MEDS ORDERED: NA CHLORIDE 0.9% 1,000 ML ONE (20:14)
[2021-02-10 20:15] LABS: Urine Blood Negative (Negative); Urine Glucose Negative (Negative); Urine Protein Negative (Negative)
[2021-02-10 20:29] LABS: Absolute Lymphocytes (CBC) 2.1 K/uL (0.7-4.9); Basophils % 0.5 % (0-1.3); Hematocrit 33.8 % (36.0-45.0); Lymphocytes % 30.2 % (15.3-44.8); MPV 7.5 fL (7.6-11.3); RBC Red Blood Cell Count 3.46 M/uL (3.86-4.86)
[2021-02-10] MEDS ORDERED: MORPHINE 4 MG/ML SYR ONE (20:33)
[2021-02-10] MEDS ORDERED: ONDANSETRON 4 MG/2 ML VIAL ONE (20:33)
[2021-02-10 20:39] LABS: Albumin 3.7 g/dL (3.4-5.0); Bilirubin Direct 0.1 mg/dL (0-0.2); Bilirubin Total 0.4 mg/dL (0.2-1.0); Potassium 3.6 mmol/L (3.5-5.1); Protein, Total 7.2 g/dL (6.4-8.2)
--- NOTE | 2021-02-10 21:05 | EDPHYS ---
Physician Documentation [facility] Name: Lydia Hanson Age: 60 yrs Sex: Female : 1960 Arrival Date: 02/10/2021 Time: 19:45 Bed 23 Private MD: Joshua Garcia ED Physician Phi Gomez HPI: 02/10 20:18 This 60 yrs old Female presents to ER via Ambulatory with complaints of tw4 Kidney infection. 20:18 The patient presents with pain that is acute. The symptoms are located in the left low tw4 back and left mid back. Onset: The symptoms/episode began/occurred yesterday. The pain radiates to the left gluteal fold and left hamstring. Associated signs and symptoms: Pertinent positives: abdominal pain, fever, nausea, Pertinent negatives: chest pain, constipation, dysuria, headache, hematuria, incontinence, numbness, tingling, urinary retention, vomiting, weakness. The problem was sustained from unknown cause. Severity of symptoms: At their worst the symptoms were moderate, in the emergency department the symptoms are unchanged. The patient has experienced a previous episode. The patient has been recently been admitted at [facility], was discharged last week. 20:18 The patient has been recently been admitted at [facility], for tw4 similar complaints, but despite evaluation and treatment the patient now has worsening symptoms, and was told to return for re-evaluation. Historical: - Allergies: 19:51 CEPHALOSPORINS; ca1 19:51 Codeine; ca1 19:51 Latex, Natural Rubber; ca1 19:51 PENICILLINS; ca1 19:51 TETRACYCLINES; ca1 - PMHx: 19:51 Depression; Hyperlipidemia; Hypertension; narcolepsy; Sleep Apnea; Thyroid problem; ca1 V-tach; 19:51 CKD; ca1 - PSHx: 19:51 Hysterectomy; Cholecystectomy; Appendectomy; ca1 19:51 Carpal Tunnel Repair; ca1 - Immunization history:: Adult Immunizations up to date, Client reports receiving the 2nd dose of the Covid vaccine, Client reports receiving the 1st dose of the Covid vaccine, Pneumococcal vaccine is up to date, Flu vaccine is up to date. - Social history:: Smoking status: Patient denies any tobacco usage or history of. ROS: 20:18 Constitutional: Negative for fever, chills, and weight loss, Eyes: Negative for injury, tw4 pain, redness, and discharge, Cardiovascular: Negative for chest pain, palpitations, and edema, Respiratory: Negative for shortness of breath, cough, wheezing, and pleuritic chest pain, Abdomen/GI: Negative for abdominal pain, nausea, vomiting, diarrhea, and constipation, MS/Extremity: Negative for injury and deformity, Skin: Negative for injury, rash, and discoloration, Neuro: Negative for headache, weakness, numbness, tingling, and seizure. 20:18 Back: Positive for pain at rest, pain with movement, flank pain, radiated pain, Negative for injury or acute deformity. Exam: 20:18 Constitutional: This is a well developed, well nourished patient who is awake, alert, tw4 and in no acute distress. Head/Face: Normocephalic, atraumatic. Chest/axilla: Normal chest wall appearance and motion. Nontender with no deformity. No lesions are appreciated. Cardiovascular: Regular rate and rhythm with a normal S1 and S2. No gallops, murmurs, or rubs. Normal PMI, no JVD. No pulse deficits. Respiratory: Lungs have equal breath sounds bilaterally, clear to auscultation and percussion. No rales, rhonchi or wheezes noted. No increased work of breathing, no retractions or nasal flaring. Abdomen/GI: Soft, non-tender, with normal bowel sounds. No distension or tympany. No guarding or rebound. No evidence of tenderness throughout. Skin: Warm, dry with normal turgor. Normal color with no rashes, no lesions, and no evidence of cellulitis. MS/ Extremity: Pulses equal, no cyanosis. Neurovascular intact. Full, normal range of motion. Neuro: Awake and alert, GCS 15, oriented to person, place, time, and situation. Cranial nerves II-XII grossly intact. Motor strength 5/5 in all extremities. Sensory grossly intact. Cerebellar exam normal. Normal gait. 20:18 Back: pain, that is mild, ROM is painful. Vital Signs: 19:47 Pulse 80; Resp 16 S; Temp 99.6(O); Pulse Ox 100% on R/A; Weight 86.64 kg (R); Height 5 ca1 ft. 7 in. (170.18 cm) (R); Pain 6/10; 19:51 BP 120 / 69; ca1 20:51 BP 107 / 53; Pulse 75; Resp 18; Pulse Ox 98% ; rr5 21:26 BP 115 / 62; Pulse 70; Resp 16; Pulse Ox 98% ; rr5 19:47 Body Mass Index 29.91 (86.64 kg, 170.18 cm) ca1 MDM: 21:05 Patient medically screened. 4 02/11 03:48 Data reviewed: vital signs, nurses notes. Data interpreted: Pulse oximetry: tw4 Interpretation: normal. Counseling: I had a detailed discussion with the patient and/or guardian regarding: the historical points, exam findings, and any diagnostic results supporting the discharge/admit diagnosis, lab results, radiology results. Medication response: Response to treatment: and as a result, I will discharge patient. Special discussion: I discussed with the patient/guardian in detail that at this point there is no indication for admission to the hospital. It is understood, however, that if the symptoms persist or worsen the patient needs to return immediately for re-evaluation. 02/10 19:54 Order name: Basic Metabolic Panel [facility] 02/10 19:54 Order name: CBC with Diff [facility] 02/10 19:54 Order name: Hepatic Function 4 02/10 19:54 Order name: Lipase [facility] 02/10 19:55 Order name: Basic Metabolic Panel; Complete Time: 20:59 EDMS 02/10 20:59 Interpretation: Normal except: GLUC 73; NA 135; GFR 50. 4 02/10 19:55 Order name: CBC with Automated Diff; Complete Time: 20:59 EDMS 02/10 21:00 Interpretation: Normal except: WBC 7.10; RBC 3.46; HCT 33.8; PLT 235; MPV 7.5. [facility] 02/10 19:55 Order name: Liver (Hepatic) Function; Complete Time: 20:59 EDMS 02/10 21:00 Interpretation: Normal except: ALK 129. [facility] 02/10 19:55 Order name: Lipase; Complete Time: 20:59 EDMS 02/10 21:00 Interpretation: Within normal limits: LIP 66. 02/10 20:15 Order name: Urine Dipstick-Ancillary; Complete Time: 20:59 EDMS 02/10 21:00 Interpretation: Within normal limits. 02/10 20:17 Order name: Urine --Ancillary; Complete Time: 20:59 EDNV 02/10 20:20 Order name: Urine Microscopic Only rr5 02/10 19:54 Order name: IV Saline Lock; Complete Time: 20:21 tw4 02/10 19:54 Order name: Labs collected and sent; Complete Time: 20:21 tw4 02/10 19:54 Order name: Urine Dipstick-Ancillary (obtain specimen); Complete Time: 20:21 tw4 Administered Medications: 02/10 20:15 Drug: NS 0.9% 1000 ml Route: IV; Rate: 1 bolus; Site: right forearm; rr5 21:25 Follow up: Response: No adverse reaction; IV Status: Completed infusion; IV Intake: rr5 1000ml 20:15 Drug: Zofran (Ondansetron) 4 mg Route: IVP; Site: right forearm; rr5 21:10 Follow up: Response: No adverse reaction rr5 20:17 Drug: morphine 4 mg {Note: rass 0.} Route: IVP; Site: right forearm; rr5 21:10 Follow up: Response: No adverse reaction; Pain is decreased; RASS: Alert and Calm (0) rr5 21:10 Drug: fentaNYL (PF) 25 mcg {Note: rass 0.} Route: IVP; Site: right forearm; rr5 21:28 Follow up: Response: No adverse reaction; Pain is decreased; RASS: Alert and Calm (0) rr5 Disposition: 02/10/21 21:05 Discharged to Home. Impression: Sciatica, left side, Chronic back pain. - Condition is Stable. - Discharge Instructions: Sciatica, Microdiskectomy, Care After, Radicular Pain. - Prescriptions for Tramadol 50 mg Oral Tablet - take 1 tablet by ORAL route every 8 hours as needed; 12 tablet. Cyclobenzaprine 5 mg Oral Tablet - take 1 tablet by ORAL route 3 times per day As needed; 15 tablet. - Medication Reconciliation Form, Thank You Letter, Antibiotic Education, Prescription Opioid Use form. - Follow up: Joshua Garcia MD; When: Upon discharge from the Emergency Department; Reason: Recheck today's complaints, Continuance of care, Re-evaluation by your physician. - Problem is an ongoing problem. - Symptoms have improved. Signatures: Dispatcher [employer] [facility] Phi Gomez MD MD tw4 Fareed Mcmullen RN RN rr5 Anastasiya Gee RN RN ca1 Corrections: (The following items were deleted from the chart) 21:28 21:05 02/10/2021 21:05 Discharged to Home. Impression: Sciatica, left side; Chronic rr5 back pain. Condition is Stable. Forms are Medication Reconciliation Form, Thank You Letter, Antibiotic Education, Prescription Opioid Use. Follow up: Joshua Garcia; When: Upon discharge from the Emergency Department; Reason: Recheck today's complaints, Continuance of care, Re-evaluation by your physician. Problem is an ongoing problem. Symptoms have improved. tw4
--- NOTE | 2021-02-10 21:05 | ER ---
Nurse's Notes [facility] Name: Lydia Hanson Age: 60 yrs Sex: Female : 1960 Arrival Date: 02/10/2021 Time: 19:45 Bed 23 Private MD: Joshua Garcia Diagnosis: Sciatica, left side;Chronic back pain Presentation: 02/10 19:47 Chief complaint: Patient states: Was admitted here for kidney infection, was discharged ca1 and feeling better . Yesterday, I started hurting in my back again, it hurts to walk and it feels like just the way it did when I first got here. Coronavirus screen: Client denies travel out of the [place] in the last 14 days. At this time, the client does not indicate any symptoms associated with coronavirus-19. Ebola Screen: Patient negative for fever greater than or equal to 101.5 degrees Fahrenheit, and additional compatible Ebola Virus Disease symptoms Patient denies exposure to infectious person. Patient denies travel to an Ebola-affected area in the 21 days before illness onset. No symptoms or risks identified at this time. Initial Sepsis Screen: Does the patient meet any 2 criteria? No. Patient's initial sepsis screen is negative. Does the patient have a suspected source of infection? No. Patient's initial sepsis screen is negative. Risk Assessment: Do you want to hurt yourself or someone else? Patient reports no desire to harm self or others. Onset of symptoms was February 10, 2021. 19:47 Method Of Arrival: Ambulatory ca1 19:47 Acuity: RIA 3 ca1 Historical: - Allergies: 19:51 CEPHALOSPORINS; ca1 19:51 Codeine; ca1 19:51 Latex, Natural Rubber; ca1 19:51 PENICILLINS; ca1 19:51 TETRACYCLINES; ca1 - PMHx: 19:51 Depression; Hyperlipidemia; Hypertension; narcolepsy; Sleep Apnea; Thyroid problem; ca1 V-tach; 19:51 CKD; ca1 - PSHx: 19:51 Hysterectomy; Cholecystectomy; Appendectomy; ca1 19:51 Carpal Tunnel Repair; ca1 - Immunization history:: Adult Immunizations up to date, Client reports receiving the 2nd dose of the Covid vaccine, Client reports receiving the 1st dose of the Covid vaccine, Pneumococcal vaccine is up to date, Flu vaccine is up to date. - Social history:: Smoking status: Patient denies any tobacco usage or history of. Screenin:10 Abuse screen: Denies threats or abuse. Denies injuries from another. Nutritional rr5 screening: No deficits noted. Tuberculosis screening: No symptoms or risk factors identified. Fall Risk IV access (20 points). Total Gallagher Fall Scale indicates No Risk (0-24 pts). Assessment: 20:05 General: Appears in no apparent distress. uncomfortable, Behavior is calm, cooperative, rr5 appropriate for age. 20:05 Pain: Complains of pain in back and left leg and left hamstring and left gluteal fold rr5 and left mid back and left low back Pain radiates to left leg Pain currently is 6 out of 10 on a pain scale. Quality of pain is described as aching, Pain began gradually, Is intermittent. Neuro: Level of Consciousness is awake, alert, obeys commands, Oriented to person, place, time, situation. Cardiovascular: Capillary refill < 3 seconds Patient's skin is warm and dry. Respiratory: Airway is patent Respiratory effort is even, unlabored, Respiratory pattern is regular, symmetrical. GI: No signs and/or symptoms were reported involving the gastrointestinal system. : Reports have kidney infection. EENT: No signs and/or symptoms were reported regarding the EENT system. Derm: Skin is intact, is healthy with good turgor, Skin temperature is warm. Musculoskeletal: Capillary refill < 3 seconds, Reports pain in back. 21:15 Reassessment: Patient appears in no apparent distress at this time. Patient is alert, rr5 oriented x 3, equal unlabored respirations, skin warm/dry/pink. Patient states symptoms have improved. 21:26 Reassessment: Patient appears in no apparent distress at this time. discharge rr5 instruction given and explained without complaints made Patient states feeling better. Patient states symptoms have improved. Vital Signs: 19:47 Pulse 80; Resp 16 S; Temp 99.6(O); Pulse Ox 100% on R/A; Weight 86.64 kg (R); Height 5 ca1 ft. 7 in. (170.18 cm) (R); Pain 6/10; 19:51 BP 120 / 69; ca1 20:51 BP 107 / 53; Pulse 75; Resp 18; Pulse Ox 98% ; rr5 21:26 BP 115 / 62; Pulse 70; Resp 16; Pulse Ox 98% ; rr5 19:47 Body Mass Index 29.91 (86.64 kg, 170.18 cm) ca1 ED Course: 19:45 Patient arrived in ED. es 19:45 Joshua Garcia MD is Private Physician. es 19:49 Triage completed. ca1 19:51 Arm band placed on right wrist. ca1 19:53 Phi Gomez MD is Attending Physician. tw4 19:55 Fareed Mcmullen, MARITA is Primary Nurse. rr5 20:15 Inserted saline lock: 20 gauge in right forearm, using aseptic technique. Blood rr5 collected. 20:21 Urine collected: clean catch specimen, clear. rr5 20:50 Allergy band placed. Bed in low position. Call light in reach. Pulse ox on. NIBP on. rr5 21:04 Joshua Garcia MD is Referral Physician. tw4 21:26 No provider procedures requiring assistance completed. IV discontinued, intact, rr5 bleeding controlled, No redness/swelling at site. Pressure dressing applied. Administered Medications: 20:15 Drug: NS 0.9% 1000 ml Route: IV; Rate: 1 bolus; Site: right forearm; rr5 21:25 Follow up: Response: No adverse reaction; IV Status: Completed infusion; IV Intake: rr5 1000ml 20:15 Drug: Zofran (Ondansetron) 4 mg Route: IVP; Site: right forearm; rr5 21:10 Follow up: Response: No adverse reaction rr5 20:17 Drug: morphine 4 mg {Note: rass 0.} Route: IVP; Site: right forearm; rr5 21:10 Follow up: Response: No adverse reaction; Pain is decreased; RASS: Alert and Calm (0) rr5 21:10 Drug: fentaNYL (PF) 25 mcg {Note: rass 0.} Route: IVP; Site: right forearm; rr5 21:28 Follow up: Response: No adverse reaction; Pain is decreased; RASS: Alert and Calm (0) rr5 Intake: 21:25 IV: 1000ml; Total: 1000ml. rr5 Outcome: 21:05 Discharge ordered by . tw4 21:26 Discharged to home via wheelchair. rr5 21:26 Condition: stable 21:26 Discharge instructions given to patient, Instructed on discharge instructions, follow up and referral plans. medication usage, Demonstrated understanding of instructions, follow-up care, medications, Prescriptions given X 2. 21:28 Patient left the ED. rr5 Signatures: Gracie Goodman Terrence, MD MD tw4 Fareed Mcmullen RN RN rr5 Anastasiya Gee RN RN ca1
[2021-02-10 21:11] LABS: Urine Bacteria <20 /HPF (<20); Urine RBC <5 /HPF (NONE SEEN)
[2021-02-10] MEDS ORDERED: FENTANYL CITR 100 MCG/2 ML ONE (21:25)
[2021-02-11 00:33] VITALS: TEMP 99.6
[2021-02-11 00:35] VITALS: O2SAT 98
[2021-02-11 00:37] VITALS: BP 115/62
== END 2021-02-10 21:28 | disposition home or self-care (01) ==
LOC: ER 19:41
DX: M54.32 Sciatica, left side (principal); G89.29 Other chronic pain; I10 Essential (primary) hypertension; Z88.0 Allergy status to penicillin; Z88.1 Allergy status to other antibiotic agents; Z88.3 Allergy status to other anti-infective agents; Z88.5 Allergy status to narcotic agent; Z91.040 Latex allergy status; Z91.048 Other nonmedicinal substance allergy status
CPT/HCPCS: 96361; 85025; 80048; 36415; 81025; 80076; 83690; 96375; 96374; 99284; J3010; J7030; J2405; 81003; 81015

== ENCOUNTER 2021-04-06 16:09 | Emergency (ER) | payer BC, OTHER ==
--- OUTSIDE RECORDS SUMMARY | 2021-04-06 16:14 | XMS REPORT | Continuity of Care Document ---
:1960 Author Organization [facility] t Address [address] [place] [address] Care Team Providers Name Role Phone Gio Garcia MD Primary Care Physician Kristian SCHMIDT Attending Clinician ADULT Attending Clinician Unavailable Arpan SCHMIDT, B. Attending Clinician Monika Gamboa Attending Clinician Jena SCHMIDT Attending Clinician Provider Attending Clinician Unavailable Lab, Fam Pob I Attending Clinician Unavailable Doctor Unassigned, Name Attending Clinician Unavailable HEAPS Attending Clinician Unavailable Edwige SCHMIDT, R. Attending Clinician Romana CASTRO Attending Clinician Unavailable Belem SCHMIDT, N. Attending Clinician YESY Attending Clinician Unavailable JACQUELIN Attending Clinician Unavailable EDWIGE Admitting Clinician Unavailable Payers Payer Name Policy Type Policy Effective Date Expiration Date Sour ce Number BCBSBCBS CHOICE [id number] [facility] EM[facility] [id number] 2015-Ervin ntPPO Problems Condition Condition Condition Status Onset Resolution Last Treating Co mments Source Name Details Category Date Date Treatment Clinician Date Angina Angina Disease Active Overview: [place] pectoris pectoris 08-01 Formattin Met redd 00:00: g of this note might be different from the original. 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 Depressio n for most of her life, initially diagnosed in 1988recur terra in 2008 2 prior suicide attempts (1984 and 2008)Dr Sherine Umaña therapist Dr Corrina Brown LILIA on LILIA on Disease Active [place] CPAP CPAP 03-08 Methodi 00:00: st 00 Hypersomno Hypersomno Disease Active [facility] lence lence 03-08 Methodi 00:00: st 00 Bronchospa Bronchospa Disease Active Overview : [place] sm sm 03-08 Formattin Methodi 00:00: g of this note might be different from the original. About 6 months ago when she has an infection s bronchiti s; she was dx with "asthma" and was given spiriva and singulair , no pft's done. PTSD PTSD Disease Active [place] (post-trau (post-trau 03-08 Me giovani webb matic 00:00: st stress stress 00 disorder) disorder) HLD HLD Disease Active [place] (hyperlipi (hyperlipi 03-08 Me giovani demia) demia) 00:00: st 00 Hypertensi Hypertensi Disease Active [place] on on 03-02 Methodi 00:00: st 00 Hypothyroi Hypothyroi Disease Active [place] dism dism 03-02 Methodi 00:00: st 00 [...] Univers depression depression d it y of [place] Phys[facility] ans History of History of Problem Resolve Univers asthma asthma d ity of [place] [facility] History of History of Problem [...] hyperthyro d it y of idism idism [place] [facility] History of History of Problem Resolve Univers hypertensi hypertensi d it y of on on [place] [facility] History of History of Problem Resolve Univers kidney kidney d ity of problems problems [place] [facility] History of History of Problem Resolve Univers pneumonia pneumonia d ity of [place] [facility] ans History of History of Problem Resolve Univers psychiatri psychiatri d it y of c c [place] treatment treatment Phys ici ans History of History of Problem Resolve Univers Skin 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 [place] s face face Physici ans History of History of Problem Resolve Univers Mixed Mixed d ity of stress [place] urge urge Physici urinary urinary ans incontinen incontinen ce ce History of History of Problem Resolve Univers Vaginal Vaginal d ity of atrophy atrophy [place] [facility] Rheumatoid Rheumatoid Problem Active U nivers arthritis arthritis ity of [place] [facility] ans CKD CKD Problem Active Univers (chronic (chronic ity of kidney kidney [place] disease), disease), Phys ici stage III stage III ans 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 infection [place] Phys[place] History of History of Problem Resolve Univers breast breast d ity of lump lump [place] [facility] History of History of Problem Active U nivers DVT of DVT of ity of lower lower [place] extremity extremity Phys ici ans History of History of Problem Resolve Univers 3 3 d ity of para 3 para 3 [place] [facility] History of History of Problem Resolve Univers iron iron d [place] of deficiency deficiency [place] anemia anemia Physici ans History of History of Problem Resolve Univers Narcolepsy Narcolepsy d it y of [place] [facility] 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 [place] [facility] GERD GERD Disease Active [place] (gastroeso (gastroeso Me thodi phageal phageal st reflux reflux disease) disease) Allergies, Adverse Reactions, Alerts Allergy Allergy Status Severity Reaction(s) Onset Inactive Treating Comm ents Source Name Type Date Date Clinician Penicill DA Active [facility] ins 03-15 [facility]: [facility]ope [facility] Cephalos DA Active [facility] porins 03-15 [place] 00:00: Orthope 00 [facility] codeine DA Active [facility] 03-15 [place] 00:00: Orthope 00 [facility] tetracyc DA Active [facility] line 03-15 [place] 00:00: Orthope 00 dic Hospita l latex DA Active MO 0 [facility] 5- [place] 00:00: Orthope 00 [facility] Hosp[facility] Cephalos DA Active [facility] porins 4-30 Clear 00:00: Saleem [address] [facility] tetracyc DA Active [facility] line 4-30 Clear 00:00: Saleem 00 [facility] latex DA Active [facility] 4-30 Clear 00:00: Saleem [facility] Latex Propensi Active Other (See blisters [place] ty to Comments) 3-15 Methodi adverse 00:00: st reaction 00 s to drug Eszopicl Propensi Active Other (See Metallic [place] one ty to Comments) 3-15 taste in Metho di adverse 00:00: mouth, st reaction 00 tachycard s to ia drug Cephalos Propensi Active Anaphylaxis Most [place] porins ty to 423 likely Methodi adverse 00:00: Keflex st reaction 00 500mg per s to patient. drug Facial rash, hives, admitted to ICU Codeine Propensi Active Itching [place] ty to 423 Methodi adverse 00:00: st reaction 00 s to drug Penicill Propensi Active Itching, [place] ins ty to Rash 03-02 Methodi adverse 00:00: st reaction 00 s to drug Tetracyc Propensi Active Anaphylaxis [place] line ty to 4 Methodi adverse 00:00: st reaction 00 s to drug CODEINE CODEINE Active [place] 9-12 l 00:00: [place] 00 Penicill DA Active [facility] ins 9-27 Clear 00:00: Saleem 00 [facility] codeine DA Active [facility] 9-27 Clear 00:00: Saleem 00 [facility] Cephalos Allergy Active Univers porins to drug ity of (finding [place] ) Physici ans Codeine Allergy Active Univers Derivati to drug ity of ves (finding [place] ) Physici ans Penicill Allergy Active Univers ins to drug ity of (finding [place] ) Physici ans Latex Allergy Active Univers to ity of substanc [place] e Physici (finding ans ) tetracyc Allergy Active Univers line to drug ity of (finding [place] ) Physici ans Family History Family Member Diagnosis Comments Start Date Stop Date Source Mother Family history of Univers ity of diabetes mellitus [place] P hysicians Father Family history of Univers ity of Mesothelioma [place] Physic ians Brother Family history of Univers ity of malignant melanoma [place] [facility] Brother Family history of Univers ity of hypertension [place] [facility] ians Sister Family history of Univers ity of hypertension [place] [facility]ic ians Sister Family history of Univers ity of systemic lupus [place] [facility] erythematosus Sister Family history of Univers ity of deep venous [place] [facility] thrombosis Natural brother Drug abuse [facility] Rojas ethodist Natural father Cancer [place] Me thodist Maternal Diabetes [place] Method ist grandfather Natural mother Depression [place] Me thodist Paternal COPD [place] Method ist grandfather Paternal Hypertension [place] Meth odist grandmother Social History Social Habit Start Date Stop Date Quantity Comments Source Exposure to Not sure [place] Metho dist SARS-CoV-2 (event) Tobacco use and 2021-01-23 2021-01-23 Never used [facility]emar Rojas ethodist exposure 00:00:00 00:00:00 Alcohol intake 2021-01-23 2021-01-23 Current [place] Me thodist 00:00:00 00:00:00 non-drinker of alcohol (finding) Sex [birth year] At [birth year] Baldemar Rojas ethodist 00:00:00 00:00:00 Smoking Status Start Date Stop Date Source Never smoker [place] Methodis t Medications Ordered Filled Start Stop Current Ordering Indication Dosage Frequency Signature Comments Components Source Medication Medication Date Date Medication? Clinician (SIG) Name Name gabapentin 2020- No Degeneratio 300mg Q.5D Take 1 [place] (NEURONTIN) 3-19 04-18 n of L4-L5 capsule Methodi 300 mg 00:00: 23:59 interverteb ([address] capsule 00 :00 ral disc total) by mouth 2 (two) times a day for 30 days. meloxicam 2020- No [facility]D [facility] 3-15 04-14 tablet (15 Me thodi mg tablet 00:00: 23:59 mg total) st 00 :00 by mouth daily for 30 days. Start after medrol dosepack. traMADoL 2020- No acute pain 25mg Q6H Take 0.5 Baldemar (ULTRAM) 50 3-13 03-18 tablets Meth анна mg tablet 00:00: 23:59 ([address] 00 :00 total) by mouth every 6 (six) hours as needed for moderate pain for up to 5 days .acute pain. methylPREDN 2020- No follow Ranjana ston ISolone 3-13 03-18 package Methodi (MEDROL 00:00: 23:[address] DOSEPAK) 4 00 :00 mg tablet omeprazole 2020-0 Yes 40mg QD Take 40 mg [place] (PriLOSEC) 9-24 by mouth Metho di 40 MG 20:04: daily. st capsule 22 SODIUM 2020-0 Yes Take by [place] OXYBATE 9-24 mouth. 4.5 Method i (XYREM 20:04: grams at st ORAL) 22 2100 and 4.5 grams at 0100 potassium 2020-0 Yes 10meq Q.5D Take 10 [place] chloride 9-24 mEq by Methodi (KLOR-CON) 20:04: mouth 2 st 10 MEQ CR 22 (two) tablet times a day. ondansetron 2020-0 Yes 4mg Q8H Take 4 mg [place] ODT 9-24 by mouth Methodi (ZOFRAN-ODT 20:04: every 8 st ) 4 MG 22 (eight) disintegrat hours as ing tablet needed for nausea or vomiting. furosemide 2020-0 Yes 80mg Q.5D Take 80 mg [place] (LASIX) 80 9-24 by mouth 2 Met hodi mg tablet 20:04: (two) st 22 times a day. albuterol 2020-0 Yes 2{puff} Q6H Inhale 2 [place] (Ventolin 9-24 puffs Methodi HFA) 90 20:04: every 6 st mcg/actuati 22 (six) on inhaler hours as needed for wheezing. zolpidem 2020-0 Yes 10mg QD Take 10 mg Rajnana ston (AMBIEN) 10 9-24 by mouth Meth анна mg tablet 20:04: nightly. st 22 zolpidem 10 mg tablet tiotropium 2020-0 Yes 1{capsu Q24H Place 1 [place] (SPIRIVA) 9-24 le} capsule Methodi 18 mcg per 20:04: into st inhalation 22 inhaler capsule and inhale daily as needed. montelukast 2020-0 Yes 10mg QD Take 10 mg [place] (SINGULAIR) 9-24 by mouth Meth анна 10 mg 20:04: every st tablet 22 evening. ARIPiprazol 2020-0 Yes 15mg QD Take 15 mg [place] e (ABILIFY) 9-24 by mouth Meth анна 15 MG 20:04: daily. st tablet 22 clonAZEPAM 2020-0 Yes 1mg Q.5D Take 1 mg [place] (KlonoPIN) -24 by mouth 2 Met hodi 1 MG tablet 20:04: (two) st 22 times a day as needed for anxiety. dexmethylph 2020-0 Yes 40mg QD Take 40 mg [place] enidate XR 24 by mouth Metho di (FOCALIN 20:04: every st XR) 40 mg 22 morning. 24 hr capsule hydroxychlo 2020-0 Yes 200mg QD Take 200 [place] roquine 9-24 mg by Methodi (PLAQUENIL) 20:04: mouth st 200 mg 22 daily. tablet magnesium 2020-0 2020- No 100mg QD Take 100 [place] sulfate 100 08-02- mg by Method i mg capsule 13:07: 00:[address] 03 :00 daily. levoFLOXaci 2020-0 2020- No 750mg QD Take 750 [place] n 08-02- mg by Methodi (LEVAQUIN) 13:03: 00:[address] 750 MG 47 :00 daily. tablet furosemide 2020-0 2020- No 20mg Q.5D Take 20 mg [place] (LASIX) 20 08-01 by mouth 2 Me thodi mg tablet 13:25: 00:00 (two) st 19 :00 times a day. DULoxetine 2019-0 2020- No 60mg QD Take 60 mg [place] (CYMBALTA) 08-01 by mouth Meth анна 60 MG 13:25: 00:[address] capsule 19 :00 Nystatin-Tr Nystatin-Tr 2019-0 Yes SUBHRATHA APPLY [facility] 04-14 YESY SPARINGLY ity of 440680-4.1 [id number] 00:00: M.D. TO [place] UNIT/GM-% UNIT/GM-% 00 AFFECTED P hysici External External AREA(S) ans Cream Cream TWICE DAILY X 10 DAYS duloxetine 2017-11 Yes 120mg QD Take 120 [place] HCl 0-01 mg by Methodi (DULOXETINE 00:00: mouth st ORAL) 00 daily. sodium 2017-11 2020- No AT BEDTIME [place] oxybate 500 0-01 09-23 Methodi mg/mL 00:00: 00:00 st solution 00 :00 dexmethylph 2020- No TAKE 1 Ranjana ston enidate XR 07-06 CAPSULE BY Me matute (FOCALIN 00:00: 00:[address] XR) 20 MG 00 :00 EVERY 24 hr AFTERNOON capsule CRESTOR 5 Yes 5mg QD Take 5 mg Ranjana ston mg tablet 05-07 by mouth Method i 00:00: daily. st 00 levothyroxi Yes 50ug QD Take 50 Ranjana ston ne 6-28 mcg by Methodi (SYNTHROID, 00:00: mouth st LEVOXYL) 50 00 daily. mcg tablet RESTASIS Yes 1[drp] Q.5D Administer [place] MULTIDOSE 05-07 1 drop to Metho di 0.05 % 00:00: both eyes st drops 00 2 (two) times a day. buPROPion Yes 150mg QD Take 150 Ranjana ston XL 6-28 mg by Methodi (WELLBUTRIN 00:00: mouth st XL) 150 MG 00 every 24 hr morning. tablet valsartan-h 2020- No 1{tbl} QD Take 1 [place] ydrochlorot 05-07 tablet by Me matute hiazide 00:00: 00:[address] (DIOVAN-HCT 00 :00 daily. ) 80-12.5 mg per tablet DULoxetine 2019- No 90mg QD Take 90 mg [place] (CYMBALTA) 05-07 by mouth Meth анна 30 MG 00:00: 00:[address] capsule 00 :00 BYSTOLIC 10 Yes 10mg QD Take 10 mg [place] mg tablet - by mouth Method i 00:00: daily. st 00 prazosin Yes 3mg QD Take 3 mg [place] (MINIPRESS) 5-02 by mouth Meth анна 1 MG 00:00: nightly. st capsule 00 3x nightly ursodiol Yes 300mg Q.5D Take 300 [place] (ACTIGALL) 4-13 mg by Methodi 300 mg 00:00: mouth 2 st capsule 00 (two) times a day. MOBIC 15 MG 2013- Yes 1 tab po Me moria TABS 9-12 qd l 00:00: [place] 00 LIDODERM 5 Yes apply to Mem oria % PTCH 9-12 affected l 00:00: area 12h on 12h off per 24h prn pain COMPOUND Yes apply 2-3 Reji zia PAIN CREAM 9-12 pumps to l 00:00: the affected area 3-4 times daily. MOBIC 15 MG Yes 1 tab po Me moria TABS 9-12 qd l 00:00: LIDODERM 5 Yes apply to Mem oria % PTCH 9-12 affected l 00:00: area 12h on 12h off per 24h prn pain [...] Yes Uni vers TABS TABS ity of [place] [facility]ici ans Co Q 10 Co Q 10 Yes Univers CAPS CAPS ity of [place] [facility] Restasis Restasis Yes Univers EMUL EMUL ity of [place] [facility] Crestor 5 Crestor 5 Yes Unive rs MG Oral MG Oral ity of Tablet Tablet [place] [facility] Bystolic 10 Bystolic 10 Yes U nivers MG Oral MG Oral ity of Tablet Tablet [place] [facility] Levothyroxi Levothyroxi Yes U nivers ne Sodium ne Sodium ity o f 50 MCG Oral 50 MCG Oral [place] Tablet Tablet Physici ans Ambien 10 Ambien 10 Yes Unive rs MG Oral MG Oral ity of Tablet Tablet [place] [facility]ici ans Dexmethylph Dexmethylph Yes U nivers enidate HCl enidate HCl i ty of ER 40 MG ER 40 MG [place] Oral Oral Physici Capsule Capsule ans Extended Extended Release 24 Release 24 Hour Hour clonazePAM clonazePAM Yes Uni vers 1 MG Oral 1 MG Oral ity o f Tablet Tablet [place] [facility]ici ans Hydroxychlo Hydroxychlo Yes U nivers roquine roquine ity of Sulfate 200 Sulfate 200 [place] MG Oral MG Oral Physici Tablet Tablet ans Ondansetron Ondansetron Yes U nivers HCl - 4 MG HCl - 4 MG ity of Oral Tablet Oral Tablet [place] Physici ans Urodol TABS Urodol TABS Yes U nivers ity of [place] [facility]ici ans Xyrem SOLN Xyrem SOLN Yes Uni vers ity of [place] [facility] Immunizations Ordered Immunization Filled Immunization Date Status Commen ts Source Name Name Flublok Quadrivalent 2020-07-11 Completed Univ ersity of 0.5 ML Intramuscular 00:00:00 [place] [facility] Prefilled Syringe Vital Signs Vital Name Observation Time Observation Value Comments Source Systolic blood 2021-03-13 118 mm[Hg] [facility] 13:26:00 [place] [facility] Diastolic blood 2021-03-13 75 mm[Hg] University o f pressure 13:26:00 [place] [facility] Body height 2021-03-13 67 [in_us] [facility] 13:26:00 [place] [facility] s Weight 2021-03-13 92.08 kg [facility] 13:26:00 [place] [facility] Body mass index 2021-03-13 31.79 kg/m2 [place] o (BMI) [Ratio] 13:26:00 [facility] Body temperature 2021-03-13 97.7 [degF] [facility] 13:26:00 [place] [facility] Heart Rate 2021-03-13 82 /min [facility] 13:26:00 [place] [facility] Respiratory rate 2021-03-13 18 /min [facility] 13:26:00 [place] [facility] s Body height 2021-01-23 170.2 cm [place] 18:53:00 Religion Body weight 2021-01-23 89.359 kg [place] 18:53:00 Religion BMI 2021-01-23 30.85 kg/m2 [place] 18:53:00 Religion Body temperature 2021-01-20 36.5 Kaylynn [place] 16:22:00 Religion Systolic blood 2021-01-20 144 mm[Hg] [place] pressure 16:17:00 Religion Diastolic blood 2021-01-20 81 mm[Hg] [place] pressure 16:17:00 Religion Heart rate 2021-01-20 66 /min [place] 16:17:00 Religion Respiratory rate 2021-01-20 13 /min [place] 16:17:00 Religion Oxygen saturation 2021-01-20 100 /min [place] in Arterial blood 16:17:00 Religion by Pulse oximetry Systolic blood 2020-09-25 127 mm[Hg] Location: [facility]; [facility] 09:23:00 Position: [place] Physician s Sitting Diastolic blood 2020-09-25 80 mm[Hg] Location: [facility]; [facility] 09:23:00 Position: [place] Physician s Sitting Body height 2020-09-25 67 [in_us] [facility] 09:23:00 [place] Physician s Weight 2020-09-25 218.375 [lb_av] University o f 09:23:00 [place] [facility] s Body mass index 2020-09-25 34.2 kg/m2 University o f (BMI) [Ratio] 09:23:00 [place] [facility] Body temperature 2020-09-25 96.3 [degF] Method: [facility] 09:23:00 Temporal [place] [facility] s Systolic blood 2020-04-14 138 mm[Hg] Location: [facility]; [facility] 08:32:00 Position: [place] Physician s Sitting Diastolic blood 2020-04-14 77 mm[Hg] Location: [facility]; [facility] 08:32:00 Position: [place] Physician s Sitting Body height 2020-04-14 67 [in_us] [facility] 08:32:00 [place] Physician s Weight 2020-04-14 200 [lb_av] [facility] 08:32:00 [place] [facility] s Body mass index 2020-04-14 31.32 kg/m2 University o f (BMI) [Ratio] 08:32:00 [place] Physicia ns Body temperature 2020-04-14 97.8 [degF] Method: [facility] 08:32:00 Temporal [place] [facility] s Heart Rate 2020-04-14 70 /min [facility] 08:32:00 [place] Physician s BP Systolic 2019-08-18 136 mm[Hg] Location: [facility]; [facility] 15:52:00 Position: [place] Physician s Sitting BP Diastolic 2019-08-18 80 mm[Hg] Location: [facility]; [facility] 15:52:00 Position: [place] Physician s Sitting Height 2019-08-18 67 [in_us] [facility] 15:52:00 [place] Physician s Weight 2019-08-18 216.375 [lb_av] University o f 15:52:00 [place] Physician s Body Mass Index 2019-08-18 33.89 kg/m2 University o Calculated 15:52:00 [place] Physician s Temperature 2019-08-18 98.7 [degF] [facility] 15:52:00 [place] Physician s BP Systolic 2019-08-09 119 mm[Hg] Location: [facility] 10:10:00 Position: [place] Physician s Sitting BP Diastolic 2019-08-09 74 mm[Hg] Location: [facility] 10:10:00 Position: [place] Physician s Sitting Height 2019-08-09 67 [in_us] [facility] 10:10:00 [place] Physician s Weight 2019-08-09 214.375 [lb_av] University o f 10:10:00 [place] [facility] s Body Mass Index 2019-08-09 33.58 kg/m2 University o f Calculated 10:10:00 [place] Phys[facility] s Weight 2014-07-22 [facility] Jairon n 13:35:31 [facility] 2014[facility]07[facility]22 [facility] 13:35:31 Temperature Oral 2014-07-22 96.4 F [facility] rmann (F) 13:35:31 Respitory Rate 2014-07-22 [facility] grady 13:35:31 Heart Rate 2014-07-22 [facility] Jairon n 13:35:31 Systolic (mm Hg) 2014-07-22 [facility] rmann 13:35:31 Diastolic (mm Hg) 2014-07-22 [facility] ermann 13:35:31 Procedures Procedure Date / Time Performing Clinician Source Performed [QL] CBC (INCLUDES 2021-03-13 [facility] DIFF/PLT) Physicians [Q] PATHOLOGIST REVIEW OF 2021-03-13 00:00:00 [facility] PERIPHERAL S[facility]AR Physicians [QL] PROTEIN, TOTAL AND 2021-03-13 00:00:00 [facility] PROTEIN ELECTROPHORESIS Physicia ns [QL] IMMUNOGLOBULINS 2021-03-13 00:00:00 [facility] ity [facility] Physicians [QL] BETA 2 GLYCOPROTEIN I 2021-03-13 00:00:00 [facility] AB (IGG,IGA,IGM) Physicians [QL] CARDIOLIPIN AB 2021-03-13 00:00:00 [facility] (IGA,IGG,IGM) Physicians [Q] MISCELLANEOUS REFERRAL 2021-03-13 00:00:00 U [facility] Physicians [QL] FACTOR V (LEIDEN) 2021-03-13 00:00:00 Unive [facility] MUTATION ANALYSIS Physicians [QL] PROTHROMBIN (FACTOR 2021-03-13 00:00:00 Uni [facility] II) [id number] MUTATION Physicians ANALYSIS MRI SPINE EXTERNAL STUDY 2021-01-08 17:18:00 Robert Antony MA Digital Mammo Screening 2020-09-25 00:00:00 U [facility] Elbert [id number] Physicians POTASSIUM LEVEL 2020-08-03 18:10:00 Royce Gbibons CV LEFT HEART CATH 2020-08-03 17:03:02 Royce Gibbons ethodist ESTIMATED GFR 2020-08-03 13:13:00 Royce Gibbons POC PANEL 2020-08-03 13:13:00 Royce Gibbons BASIC METABOLIC PANEL 2020-08-03 01:10:00 Royce Gibbons ESTIMATED GFR 2020-08-03 01:10:00 Royce Gibbons COVID-19 QUALITATIVE PCR 2020-08-02 14:13:00 Royce Gibbons CBC WITH PLATELET AND 2020-08-01 14:10:00 Royce Gibbons DIFFERENTIAL PT AND PTT 2020-08-01 14:10:00 Royce Gibbons COMPREHENSIVE METABOLIC 2020-08-01 14:10:00 Royce Gibbons Religion PANEL PARTIAL THROMBOPLASTIN 2020-08-01 14:10:00 Royce Gibbons on Religion TIME (PTT) ECG 12-LEAD 2020-08-01 01:14:48 Royce Gibbons TTE COMPLETE, WO CONTRAST, 2020-07-31 11:58:28 Royce Gibbons W DOPPLER ([id number]) ANTIBODY SCREEN (GEL) 2020-06-22 12:27:00 Som Patricia N. SARS-COV2/RT-PCR ([facility] & 2020-05-04 14:00:[address] [facility] - REF LABS) [facility] [QL] TSH, 3RD GENERATION 2020-04-14 00:00:00 [facility] W/REFLEX TO FT4 Physicians [QL] PROLACTIN 2020-04-14 00:00:00 University o f [place] Physicians MA Digital Mammo DX [place] w 2020-04-14 00:00:00 [facility] [id number] [place] [id number] 2019-08-23 00:00:00 [facility] Phys[facility] [QLH] CULTURE, URINE, 2019-08-18 00:00:00 [facility] MA Digital Mammo DX [place] 2019-08-13 00:00:00 [facility] [id number] Physicians US Breast Bilat [id number] 2019-08-13 00:00:00 [facility] MA Digital Mammo Screening 2019-08-09 00:00:00 U [facility] Elbert [id number] Physicians US Pelvis with Pelvis 2019-08-09 00:00:00 [facility] Transvaginal 10053 Physicians . [facility] - Affirm VPIII 2019-08-09 00:00:00 [facility] (BV Panel) Physicians . [facility] - GC/Chlamydia 2019-08-09 00:00:00 Univ [facility] Physicians History of Total Abdominal Unive [facility] Hysterectomy Physicians History of Breast [facility] augmentation Physicians History of Ostectomy of [facility] calcaneus for spur Physicians History of Tonsillectomy Univers [facility] Physicians History of Adenoidectomy [facility] Physicians History of Cholecystectomy Unive [facility] Physicians History of Shoulder [facility] [place] [facility] Physicians History of Complete [facility] [place] Colonoscopy Physicians History of Colonic [facility] polypectomy Physicians Plan of Care Planned Activity Planned Date Details Comments Source Future Scheduled 2022-03-30 Screening for [facility] thodist Test 00:00:00 malignant neoplasm of cervix (procedure) [code = 558829222] Future Scheduled 2021-06-10 INFLUENZA VACCINE [place] [facility] 00:00:00 [code = INFLUENZA VACCINE] Future Scheduled 2015-11-10 BREAST CANCER [facility] thodist Test 00:00:00 SCREENING [code = BREAST CANCER SCREENING] Future Scheduled 2010 COLONOSCOPY SCREENING [place] [facility] 00:00:00 [code = COLONOSCOPY SCREENING] Future Scheduled 2010 SHINGLES VACCINES [place] [facility] 00:00:00 (#1) [code = SHINGLES VACCINES (#1)] Future Scheduled 1978 Hepatitis C screening [place] [facility] 00:00:00 (procedure) [code = 441109157] Future Scheduled 1972 COVID-19 VACCINE (1) Ranjanamarah baxter [facility] Test 00:00:00 [code = COVID-19 VACCINE (1)] Encounters Start End Encounter Admission Attending Care Care Encounter Source Date/Time Date/Time Type Type Clinicians Facility Department ID 2021-04-03 2021-04-03 Telephone Townsend, [facility] 4 [id number] 00:00:00 00:00:00 Steve [id number] 4 2021-03-13 2021-03-13 Appointmen ADULT, UTP [facility] [id number] [facility] 13:00:00 13:00:00 t; ADULT, THROMBOSIS Hemophilia ity of THROMBOSIS and [place] Thrombophil Phys ici ia Center - ans [facility] 2021-01-22 2021-01-22 Outpatient [facility] [id number] [address] [place] 00:00:00 00:00:00 067 Method i 2021-01-22 2021-01-22 Outpatient [facility] [id number] [address] [place] 00:00:00 00:00:00 ROBERT 510 Method i 2021-01-22 2021-01-22 Outpatient [facility] [id number] [address] [place] 00:00:00 00:00:00 ROBERT 539 Method i 2021-01-20 2021-01-20 Emergency ROMERO, [facility] [id number] [place] 00:00:00 00:00:00 UVALDO 109 Method i 2020-10-16 2020-10-16 Laboratory Lab, [facility] [id number] 16:55:10 17:15:10 Only Fam Pob I Health 350.1.13.10 [place] [id number] Profted [id number] nal [address] One 2020-10-16 2020-10-16 Letter Doctor BENY [id number] 00:00:00 00:00:00 (Out) Unassigned, TERESA 350.1.13.10 [facility] [id number] [id number] 044 2020-09-25 2020-09-25 Appointmen FERNANDO MCKEON Women's [id number] Univers 09:00:00 09:00:00 t; LUCAS MCKEON M.D. [facility] Kristi Padilla M.D. Physici ans 2020-08-03 2020-08-03 Outpatient GIBBONS, [facility] [id number] [address] [place] 00:00:00 00:00:00 ROYCE 912 Method i 2020-08-02 2020-08-02 Outpatient GIBBONS, [facility] [id number] [address] [place] 00:00:00 00:00:00 ROYCE 863 Method i 2020-08-01 2020-08-01 Outpatient GIBBONS, [facility] [id number] [address] [place] 00:00:00 00:00:00 ROYCE 442 Method i 2020-08-01 2020-08-01 Outpatient GIBBONS, [facility] [id number] [address] [place] 00:00:00 00:00:00 ROYCE [address] 2020-07-31 2020-07-31 Outpatient GIBBONS, [facility] [id number] [address] [place] 00:00:00 00:00:00 ROYCE 438 Method i 2020-07-25 2020-07-25 Outpatient GIBBONS, [facility] [id number] [address] [place] 00:00:00 00:00:00 ROYCE [address] 2020-06-22 2020-06-22 Outpatient STAYVONNE, [facility] [id number] [place] 00:00:00 00:00:00 SOM [address] 2020-04-17 2020-04-17 Appointmen FERNANDO HAYWARD UTP [id number] 60 Univers 15:40:00 15:40:00 t; Ty FRAZIER M.D. [place] Jaskaran FRAZIER M.D. ans 2020-04-14 2020-04-14 Appointmen YESY [facility] Women's [id number] 95 Univers 08:30:00 08:30:00 t; Sonia FRAZIER - it y lorena HAYWARD M.D. [place] Physi min M.Michael ans 2019-09-16 2019-09-16 Appointmen FERNANDO ROPER [facility] [id number] Univers 09:50:00 09:50:00 t; ELIOT ROPER gy [facility] Son Vasquez M.D. Physici ans 2019-09-15 2019-09-15 Appointmen FERNANDO ROPER [facility] [id number] Univers 11:20:00 11:20:00 t; ELIOT ROPER ity of [place], M.D. [place] M.D. Physici ans 2019-08-18 2019-08-18 Appointmen FERNANDO ROPER [facility] [id number] Univers 15:40:00 15:40:00 t; ELIOT ROPER gy [facility] lorena MCCABE M.D. LymanJoselo duncan M.D. Physici ans 2019-08-09 2019-08-09 Appointmen FERNANDO MCKEON Women's [id number] Univers 10:30:00 10:30:00 t; LUCAS MCKEON M.D. [facility] Kristi Huizar M.D. Physici ans Results Test Description Test Time Test Comments Results Result [facility] e Comments - XR PELVIS 11/112021-03-16 VIEWS 14:31:00 [facility] : 1960 Sex: F Patient Name: YIN IBRAHIM Unit No: [id number] EXAMS: CPT CODE: [id number] XR PELVIS 1/2 VIEWS 05255 AP VIEW OF THE PELVIS. COMMENT: In progress total left hip arthroplasty. AP view of the pelvis COMMENT: COMPARISON: No prior exams available. Completed total left hip arthroplasty. Prosthesis appears to be in good position. at 1431 Reported and signed by: Jeremy Seth M.D. CC: Yahir Hendrix MD Technologist: Robert Aiken(R) Transcribed D/ (0311) Dinah [facility] NAME: YIN IBRAHIM [address] [place] [address] PHYS: MATZAK.Arianna - Yahir Hendrix : 1960 AGE: 60 SEX: F [place] [address] LOC: Y.307 A PHONE #: [phone] EXAM DATE: 03/15/2021 STATUS: DIS IN FAX #: [phone] RAD #: D/C DT 03/16/2021 PAGE 1 Signed Report Patient Name: YIN IBRAHIM Unit No: [id number] EXAMS: CPT CODE: [id number] XR PELVIS 1/2 VIEWS 75771 <Continued> Orig Print D/T: S: 03/16/2021 (6734) [facility] NAME: YIN IBRAHIM [address] [place] [address] PHYS: MATZAK.01 - Yahir Hendrix : 1960 AGE: 60 SEX: F [place] [address] LOC: Y.307 A PHONE #: [phone] EXAM DATE: 03/15/2021 STATUS: DIS IN FAX #: [phone] RAD #: D/C DT 03/16/2021 PAGE 2 Signed Report - XR PELVIS 1/2 2021-03-16 VIEWS 14:31:00 [facility] 1960 Sex: F Patient Name: YIN IBRAHIM Unit No: [id number] EXAMS: CPT CODE: [id number] XR PELVIS 1/2 VIEWS 72658 AP VIEW OF THE PELVIS. COMMENT: In progress total left hip arthroplasty. AP view of the pelvis COMMENT: COMPARISON: No prior exams available. Completed total left hip arthroplasty. Prosthesis appears to be in good position. at 1431 Reported and signed by: Jeremy Seth M.D. CC: Yahir Hendrix MD Technologist: CONOR DALTON (RT.R) Transcribed D/ (1431) AntonySLJ [facility] NAME: YIN IBRAHIM [address] [facility] PHYS: Yahir Nix : 1960 AGE: 60 SEX: F [place] [address] LOC: Y.307 A PHONE #: [phone] EXAM DATE: 03/15/2021 STATUS: DIS IN FAX #: [phone] RAD #: D/C DT 03/16/2021 PAGE 1 Signed Report Patient Name: YIN IBRAHIM Unit No: [id number] EXAMS: CPT CODE: [id number] XR PELVIS 1/2 VIEWS 06269 <Continued> Orig Print D/T: S: 03/16/2021 (1434) [facility] NAME: YIN IBRAHIM [address] [facility] PHYS: Arianna - Yahir Hendrix Crystal : 1960 AGE: 60 SEX: F [place] [address] LOC: Y.307 A PHONE #: [phone] EXAM DATE: 03/15/2021 STATUS: DIS IN FAX #: [phone] RAD #: D/C DT 03/16/2021 PAGE 2 Signed Report BASIC METABOLIC PANEL 2021-03-16 06:32:00 Test Item Value Reference Range Interpretation Comme nts SODIUM (test code = NA) 139 mmol/L 136-145 N POTASSIUM (test code = K) 4.3 mmol/L 3.5-5.1 N CHLORIDE (test code = CL) 102.0 mmol/L 98-107 N CARBON DIOXIDE (test code = 26.0 mmol/L 21-32 N CO2) GLUCOSE (test code = GLU) 133 mg/dL 70-110 H BLOOD UREA NITROGEN (test code 14 mg/dL 7-18 N = BUN) GLOMERULAR FILTRATION RATE 54.7 >60 U nit of measure: (test code = GFR) mL/min/1.7 3 [id number] Range:Healthy A dults >90 mL/min/1.73 m2 For Chronic Kidney Disease: Stage II Mi ld Decrease in GFR 60-9 0 Stage III Moderate Decrease in GFR 30-59 Stage IV Severe Decrease in GFR 15-29 Stage V Kidney Failure <15 CREATININE (test code = CREAT) 1.03 mg/dL 0.55-1.30 N CALCIUM (test code = CA) 8.2 mg/dL 8.2-10.1 N HGB [id number] 06:07:00 Test Item Value Reference Range Interpretation Comments HEMOGLOBIN (test code = HGB) 9.9 g/dL 12-16 L HEMATOCRIT (test code = HCT) 29.0 % 37-47 L SPECIMEN COMMENT: POD #1[QL] CBC (INCLUDES DIFF/PLT)2021-03-13 14:49:00 Test Item Value Reference Range Interpretation Comments WBC (test code = WBC) 6.7 {K/CMM} 3.7-10.4 RBC (test code = RBC) 3.57 {M/CMM} 4.20-5.40 HGB (test code = HGB) 12.0 g/dl 12.0-16.0 HCT (test code = HCT) 35.2 % 36.0-48.0 MCV (test code = MCV) 98.7 fL 80.0-98.0 MCH (test code = MCH) 33.5 pg 27.0-31.0 MCHC (test code = MCHC) 34.0 g/dl 32.0-36.0 RDW (test code = RDW) 13.8 % 11.5-14.5 PLATELET (test code = PLATELET) 180 {K/CMM} 133-450 MPV (test code = MPV) 7.2 fL 7.4-10.4 SEGS (test code = SEGS) 66.4 % 45.0-75.0 MONOCYTES (test code = 5.8 % 2.0-12.0 MONOCYTES) LYMPHOCYTES (test code = 26.2 % 20.0-40.0 LYMPHOCYTES) EOSINOPHILS (test code = 1.3 % 0.0-4.0 EOSINOPHILS) BASOPHILS (test code = 0.3 % 0.0-1.0 BASOPHILS) NEUTROPHILS # (test code = 4.5 {K/CMM} 1.5-8.1 NEUTROPHILS #) LYMPHOCYTES # (test code = 1.8 {K/CMM} 1.0-5.5 LYMPHOCYTES #) MONOCYTES # (test code = 0.4 {K/CMM} 0.0-0.8 MONOCYTES #) EOSINOPHILS # (test code = 0.1 {K/CMM} 0.0-0.5 EOSINOPHILS #) [facility] Physicians[QL] [id number] 14:49:00 Test Item Value Reference Range Interpretation Comments IMMUNOGLOBULIN A (test code = 137 mg/dl 47-310 N IMMUNOGLOBULIN A) IMMUNOGLOBULIN G (test code = 708 mg/dl 600-1640 N IMMUNOGLOBULIN G) IMMUNOGLOBULIN M (test code = 68 mg/dl 50-300 N IMMUNOGLOBULIN M) [facility] Physicians[QL] PROTEIN, TOTAL AND PROTEIN ELECTROPHORESIS 2021-03-13 14:49:00 Test Item Value Reference Range Interpretation Comments PROTEIN, TOTAL (test 6.5 g/dl 6.1-8.1 N code = PROTEIN, TOTAL) ALBUMIN (test code = 3.9 g/dl 3.8-4.8 N ALBUMIN) IMERA-4-UIDCRCTSV 0.4 g/dl 0.2-0.3 (test code = YVKEZ-2-EGYSELTLI) [id number]-7-[id number] 0.9 g/dl 0.5-0.9 N (test code = TUGLI-4-PPZTPZAQN) BETA 1 GLOBULIN (test 0.4 g/dl 0.4-0.6 N code = BETA 1 GLOBULIN) BETA 2 GLOBULIN (test 0.3 g/dl 0.2-0.5 N code = BETA 2 GLOBULIN) GAMMA GLOBULINS (test 0.7 g/dl 0.8-1.7 code = GAMMA GLOBULINS) INTERPRETATION (test See Comment Consist ent with code = hypogammaglobul inemia INTERPRETATION) . Serum free light chains or urine immunofixation should be considered i f plasma cell dyscrasias are a possible clinic al diagnosis. Alp short-1 globulin increa se noted. [facility] Coronavirus 2018 [id number] 11:21:00 Test Item Value Reference Range Interpretation Comments Novel Coronavirus Negative Negative Positive r esults are 2019 Inhouse (test indicativ e of the presence code = COVNONPUI) ofSARS-CoV -2 RNA, clinical correlation wit h patient historyand othe r diagnostic info rmation is necessary to determinepatien t infection status. Positiv e results do not rule out bacterial infection or co -infection with other viru ses. Negative result s do not preclude SARS-C oV-2 infection andsh ould not be used as the samreen e basis for patient managementdecis ions. Negative result s must be combined with otherclinical observations, p atient history, and epidemiological information . Detection of SARS-CoV-2 RNA may be affe cted bysample collec tion methods, storag e conditions, and /or stageof infection. Viktoria l RNA mutations, vacc inations, antiviraltherap eutics, antibiotics, chemotherapeuti c orimmunosuppres jaime drugs have not been e valuated for effectson d etection. Results are for the identification of SARS-CoV-2 RNA usingthe [employer] M2000 Sy stem under the FDA Emergen cy UseAuthorizatio n. The testing is perf ormed by personneltrachucky d in the procedures for the [employer]ardo M2000 molecular diagnostic SARS-CoV-2 assa y in vitro. Novel Coronavirus 2018 [id number] 11:21:00 Test Item Value Reference Range Interpretation Comments Novel Coronavirus Negative Negative Positive r esults are 2019 Inhouse (test indicativ e of the presence code = COVNONPUI) ofSARS-CoV -2 RNA, clinical correlation wit h patient historyand othe r diagnostic info rmation is necessary to determinepatien t infection status. Positiv e results do not rule out bacterial infection or co -infection with other viru ses. Negative result s do not preclude SARS-C oV-2 infection andsh ould not be used as the samreen e basis for patient managementdecis ions. Negative result s must be combined with otherclinical observations, p atient history, and epidemiological information . Detection of SARS-CoV-2 RNA may be affe cted bysample collec tion methods, storag e conditions, and /or stageof infection. Viktoria l RNA mutations, vacc inations, antiviraltherap eutics, antibiotics, chemotherapeuti c orimmunosuppres jaime drugs have not been e valuated for effectson d etection. Results are for the identification of SARS-CoV-2 RNA usingthe [employer] M2000 Sy stem under the FDA Emergen cy UseAuthorizatio n. The testing is perf ormed by personneltraine d in the procedures for the [employer] M2000 molecular diagnostic SARS-CoV-2 assa y in vitro. AB HIV 1 16:09:00 Test Item Value Reference Range Interpretation Comments AB HIV 1 2 (test NONREACTIVE NONREACTIVE Done by Janis Castro code = FSF75GG) 4th Gen HIV Ag/Ab Combo Screen AB HIV 16:09:00 Test Item Value Reference Range Interpretation Comments AB HIV 1 (test code NONREACTIVE NONREACTIVE DONE AT: [facility] = HIV1AB) [place] [id number] [place], [place] [address]Done by [employer] 4th Gen HIV Ag/Ab C ombo Screen COMPREHENSIVE METABOLIC [id number] 13:20:00 Test Item Value Reference Range Interpretation Comments SODIUM (test code = 140 mmol/L 136-145 N NA) POTASSIUM (test code = 4.5 mmol/L 3.5-5.1 N K) CHLORIDE (test code = 102.0 mmol/L 98-107 N CL) CARBON DIOXIDE (test 31.1 mmol/L 21-32 N code = CO2) GLUCOSE (test code = 119 mg/dL 70-110 H GLU) BLOOD UREA NITROGEN 25 mg/dL 7-18 H (test code = BUN) GLOMERULAR FILTRATION 46.7 >60 Unit o f measure: RATE (test code = GFR) mL/mi n/1.73 [id number] Range:Healthy Adults >90 mL/min/1.73 m2 For Chronic Kidney Disease: St age II Mild Decrease in GFR 60-90 St age III Moderate Decrease in GFR 30-59 Stage IV Severe Decre ase in GFR 15- 29 Stage V Kidney Failure <15 CREATININE (test code 1.18 mg/dL 0.55-1.30 N = CREAT) TOTAL PROTEIN (test 6.4 g/dL 6.4-8.2 N code = PROT) ALBUMIN (test code = 3.5 g/dL 3.4-5.0 N ALB) GLOBULIN (test code = 2.9 g/dL 2.2-4.2 N GLOB) ALBUMIN/GLOBULIN RATIO 1.2 0.7-2.0 N (test code = A/G) CALCIUM (test code = 8.7 mg/dL 8.2-10.1 N CA) BILIRUBIN TOTAL (test 0.30 mg/dL 0.2-1.00 N code = BILT) SGOT/AST (test code = 15.0 U/L 15-37 N AST) SGPT/ALT (test code = 45.0 U/L 12-78 N Please note new ALT) normal range. ALKALINE PHOSPHATASE 141 U/L 46-116 H TOTAL (test code = ALKP) PROTHROMBIN [id number] 13:20:00 Test Item Value Reference Range Interpretation Comments PROTHROMBIN TIME 10.8 secs 10.1-12.5 N PATIENT (test code = PTP) INTERNATIONAL NORMAL 0.95 <2.0 RECOMME NDED THERAPEUTIC RATIO (test code = RANGE FOR ORAL INR) ANTICOAGULANTTR EATMENT: CONDI TION INRProphylaxis of venous thrombos is in 2.0 - 3.0 high-risk medic al or surgical patientsTreatme nt of venous thrombos is 2.0 - 3.0Prevention o f embolism 2.0 - 3.0Prevention o f recurrent embol ism, or 3.0 - 4. 5 patients with mechanical pros thetic intravascular v dempsey IS PATIENT ON ANTICOAGULANTS ? NHas Lab been notified if Patient is on Heparin Drip? NOIf Yes, orderCBC, OCCULT BLOOD, PT every other day NTHROMBOPLASTIN TIME [id number] 13:20:00 Test Item Value Reference Range Interpretation Comments PTT ACTIVATED (test code = APTT) 31.1 secs 24.9-37.0 N IS PATIENT ON ANTICOAGULANTS ? NVas Lab been notified if Patient is on Heparin Drip? NOIf Yes, orderCBC, OCCULT BLOOD, PT every other day NCBC W/AUTO DIFF 2021-03-09 13:03:00 Test Item Value Reference Range Interpretation Comments WHITE BLOOD CELL (test code = WBC) 8.8 K/mm3 5.8-11.0 N RED BLOOD CELL (test code = RBC) 3.62 M/mm3 4.2-5.4 L HEMOGLOBIN (test code = HGB) 12.1 g/dL 12-16 N HEMATOCRIT (test code = HCT) 36.3 % 37-47 L MEAN CELL VOLUME (test code = MCV) 100 fL 80-98 H MEAN CELL HGB (test code = MCH) 33.4 pg 27-34 N MEAN CELL HGB CONCENTRATION (test 33.3 g/dL 30.8-34.1 N code = MCHC) RED CELL DISTRIBUTION WIDTH (test 12.8 % 11-16 N code = RDW) PLT (test code = PLT) 180 K/mm3 130-400 N MEAN PLATELET VOLUME (test code = 9.2 fL 8.9-12.1 N MPV) NEUTROPHIL % (test code = NT%) 59.6 % 45-70 N LYMPHOCYTE % (test code = LY%) 28.7 % 20-40 N MONOCYTE % (test code = MO%) 3.9 % 3-10 N EOSINOPHIL % (test code = EO%) 1.9 % 1-5 N BASOPHIL % (test code = BA%) 0.9 % 0.0-1.1 N NEUTROPHIL # (test code = NT#) 5.27 K/mm3 2.00-7.50 N LYMPHOCYTE # (test code = LY#) 2.53 K/mm3 1.50-4.00 N MONOCYTE # (test code = MO#) 0.34 K/mm3 0.2-0.8 N EOSINOPHIL # (test code = EO#) 0.17 K/mm3 0.04-0.4 N BASOPHIL # (test code = BA#) 0.08 K/mm3 0.02-0.10 N MANUAL DIFF REQUIRED (test code = NO MANUAL DIFF MDIFF) NUCLEATED RED BLOOD CELL (test 0 % 0-0 N code = NRBC) - MRI JNT W/O CONT [id number] 08:45:00 [facility] : 1960 Sex: F Patient Name: YIN IBRAHIM Unit No: [id number] EXAMS: CPT CODE: [id number] MRI [facility] W/O CONT [id number] TECHNIQUE: Multiplanar, multisequence MRI of the pelvis/left hip without contrast. COMPARISON: None available. 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 There is collapse of the articular surface by approximately 2 m m with severe bone marrow edema extending throughout the femoral head and neck. A left hip joint effusion is present. Avascular necrosis is also visualized throughout the right femoral head. No definite articular surface collapse is visualized. No significant adjacent edema. The gluteal and hamstring tendons are within normal limits. Musculature is normal in size and signal intensity. Lower lumbar facet hypertrophy is noted. The sacroiliac joints are within normal limits. IMPRESSION: 1. Avascular necrosis of the left femoral head with collapse of the articular surface and pronounced adjacent edema. 2. Additional avascular necrosis of the right femoral head without definite articular surface collapse. at 0845 Reported and signed by:Jeremy Seth M.D. CC: Felix Bliss MD Technologist: EVAN TIM.MRI,CT Transcribed D/ (0845) AntonySLJ [facility] NAME: YIN IBRAHIM [address] [facility] PHYS: Felix Das : 1960 AGE: 60 SEX: F [place], [place] [address] LOC: Y.MRI PHONE #: [phone] EXAM DATE: 03/06/2021 STATUS: DEP CLI FAX #: [phone] RAD #: D/C DT PAGE 1 Signed Report Patient Name: YIN IBRAHIM Unit No: [id number] EXAMS: CPT CODE: [id number] MRI LW JNT W/[place] [address] <Continued> Orig Print D/T: S: 03/07/2021 (0848) [facility] NAME: YIN IBRAHIM [address] [facility] PHYS: Felix Das : 1960 AGE: 60 SEX: F [place] [address] LOC: Y.MRI PHONE #: [phone] EXAM DATE: 03/06/2021 STATUS: DEP CLI FAX #: [phone] RAD #: D/C DT PAGE 2 Signed ReportI Spine External [id number] 17:19:00This exam was not acquired at a Religion facility and has not been interpreted by a Religion Provider. The exam was imported into our imaging system.[place] [facility] [id number] 06:28:48FINDINGS:LM: Angiographically free of significant disease. LAD: Proximal LAD 30% stenosis. Diagonal branches are patent. LAD wraps around the apex. LCx: Left dominant circulation. Angiographically freeof significant stenosis. Large OM branches are patent. RCA: Small caliber, non-dominant vessel. Angio graphically free of significant stenosis. LVEDP: 10 mm Hg. No gradient on pull- back. CONCLUSION:- Non-obstructive coronary artery disease. RECOMMENDATIONS:1. Aspirin 81mg daily and high intensity statin. 2. Cardiac medical therapy and aggressive risk factor modification. 3. Transferred in stable condition PROCEDURE DETAILS:ATTENDING: Dr. Royce Gibbons MD EQUIPMENT/ANTICOAGULATION: Right Radial Artery 6Fr SheathFL3.5 Catheter FR4 CatheterJ wire PROCEDURAL DETAILS: The patient was brought to the cardiac catheterization laboratory in a fasting state. Informed consent was obtained prior to procedure.The patient was prepped and draped in the usual sterile fashion. Intravenous Midazolam and Fentanyl were administered for conscious sedation. Skin was infiltrated with 1% lidocaine for local anesthesia. Arterial access was obtained using modified Seldinger technique. 6 Fr sheath was inserted into the right radial artery. Selective coronary angiogram was performed thereafter in a standard fashion using FL 3.5 and FR 4 catheters. The catheter crossed the Aortic Valve so LVEDP was measured. The patient tolerated the procedure well and there were no immediate complications. HEMOSTASIS: TR Band inflated to 12ccs ANESTHESIA:Under my supervision, 4 mg of Midazolam was administered intravenously for moderate sedation. Pulse oximetry, heart rate and blood pressure were continuously measured by an independent trained observer present. I spent 22 minutes of face to face attendance time with the patientduring sedation. ATTENDING:I was scrubbed and present for the entire procedure and agree with the note as documented above.[facility] [id number] 04:14:00 Test Item Value Reference Interpretation Comments Range Glucose (test code 116 mg/dL 65-99 H Fasting = 2345-7) reference inter angella For someone wit hout known diabetes, a glucose valuebe tween 100 and 125 mg/ dL is consistent withprediabetes and should be confi rmed with afollow-up test. BUN (test code = 14 mg/dL 7-25 3094-0) Creatinine (test 1.07 mg/dL 0.50-0.99 H For patient s >49 code = 2160-0) years of age, the reference limit for Creatinine is approximately 1 3% higher for peopleidentifie d as -Emily n. EGFR Non-Afr. 56 See_Comment L [Automated me ssage] Macedonian (test code The syst em which = 8915) generated this result transmit holley reference range : > OR = 60 mL/min/1.73m2. The reference range was not used to interpret this result as normal/abnormal . EGFR 65 See_Comment [Automated mes luz] Macedonian (test code The syst em which = 75669-1) generated this result transmit holley reference range : > OR = 60 mL/min/1.73m2. The reference range was not used to interpret this result as normal/abnormal . BUN/creatinine 13 See_Comment [Automated m essage] ratio (test code = The syste m which 3097-3) generated this result transmit holley reference range : 6 - 22 (calc). The reference range was not used to interpret this result as normal/abnormal . Sodium (test code = 141 mmol/L 167-706 8062-2) Potassium (test 3.0 mmol/L 3.5-5.3 L code = 2823-3) Chloride (test code 95 mmol/L 98-110 L = 2075-0) CO2 (test code = 37 mmol/L 20-32 H 8-9) Calcium (test code 9.8 mg/dL 8.6-10.4 = 70455-7) Protein (test code 7.2 g/dL 6.1-8.1 = 2885-2) Albumin, S (test 4.5 g/dL 3.6-5.1 code = 1751-7) Globulin, total 2.7 See_Comment [Automated message] (test code = The [place] [facility] [place] [address]-3) generated this result transmit holley reference range : 1.9 - 3.7 g/dL (nikos c). The reference r lyudmila was not used to interpret this result as normal/abnormal . Albumin/globulin 1.7 See_Comment [Automated message] ratio (test code = The [employer] which 1759-0) generated this result transmit holley reference range : 1.0 - 2.5 (calc). T he reference range was not used to interpret this result as normal/abnormal . Total bilirubin 0.4 mg/dL 0.2-1.2 (test code = 1974-2) Alkaline 131 U/L 37-153 phosphatase (test code = 6768-6) AST (test code = 24 U/L 10-35 1920-8) ALT (test code = 23 U/L - 1742-6) RAC (test code = Performing RAC) Organization Information: Site ID: RGA Name: [facility] Address: [address] [place] [phone] Director: Peter Valencia Lab Interpretation Abnormal (test code = 69195-9) [facility] with platelet and [id number] 04:14:00 Test Item Value Reference Range Interpretation Comments WBC (test code = 5.9 See_Comment [Automated 6690-2) message] The system which generated this result transmitted reference range : 3.8 - 10.8 Thousand/uL. Th e reference range was not used to interpret this result as normal/abnormal . RBC (test code = 4.28 See_Comment [Automated 789-8) message] The system which generated this result transmitted reference range : 3.80 - 5.10 Million/uL. The reference range was not used to interpret this result as normal/abnormal . HGB (test code = 13.9 g/dL 11.7-15.5 718-7) HCT (test code = 39.8 % 35.0-45.0 4544-3) MCV (test code = 93.0 fL 80.0-100.0 787-2) MCH (test code = 32.5 pg 27.0-33.0 785-6) MCHC (test code = 34.9 g/dL 32.0-36.0 786-4) RDW (test code = 12.4 % 11.0-15.0 788-0) Platelet count 241 See_Comment [Automated (test code = message] The 777-3) system which generated this result transmitted reference range : 140 - 400 Thousand/uL. Th e reference range was not used to interpret this result as normal/abnormal . MPV (test code = 9.3 fL 7.5-12.5 776-5) Neutrophils, 3334 See_Comment [Automated absolute (test message] The code = 751-8) system which generated this result transmitted reference range : 1,500 - 7,800 cells/uL. The reference range was not used to interpret this result as normal/abnormal . Lymphocytes, 2083 See_Comment [Automated absolute (test message] The code = 731-0) system which generated this result transmitted reference range : 850 - 3,900 cells/uL. The reference range was not used to interpret this result as normal/abnormal . Monocytes, 330 See_Comment [Automated absolute (test message] The code = 742-7) system which generated this result transmitted reference range : 200 - 950 cells/uL. The reference range was not used to interpret this result as normal/abnormal . Eosinophils, 112 See_Comment [Automated absolute (test message] The code = 711-2) system which generated this result transmitted reference range : 15 - 500 cells/uL. The reference range was not used to interpret this result as normal/abnormal . Basophils, 41 See_Comment [Automated absolute (test message] The code = 704-7) system which generated this result transmitted reference range : 0 - 200 cells/u L. The reference range was not used to interpr et this result as normal/abnormal . Neutrophils (test 56.5 % code = 770-8) Lymphocytes (test 35.3 % code = 736-9) Monocytes (test 5.6 % code = 5905-5) Eosinophils (test 1.9 % code = 713-8) Basophils + RC 0.7 % (test code = 706-2) RAC (test code = Performing RAC) Organization Information: Site ID: RGA [facility]: [facility] Address: [address] [place] [phone] Director: Peter Mcdermott MethodistPT and [id number] 04:14:00 Test Item Value Reference Interpretation Comments Range PTT (test code 27 See_Comment This test short s not been = 91265-3) validated for monitoringunfra ctionated heparin therapy . For testing thatis validated for this type o f therapy, please referto the Heparin Anti-Xa assay ( test code 63363). For add itional information, pl ease refer tohttp://educat ion.Concept.io/fa q/DUH342(Thi s link is being provided for informational/e ducational purposes only.) [Automated message] The sy stem which generated this result transmitted ref erence range: 22 - 34 sec. The reference range was not used to interpr et this result as noel l/abnormal. INR (test code 1.0 Reference Ran ge = 6301-6) 0.9-1.1Moderate -intensity Warfarin Therap y 2.0-3.0Higher-i ntensity Warfarin Therap y 3.0-4.0 Prothrombin 10.1 See_Comment [Automated mes luz] The time (test code system which generated this = 5902-2) result transmit holley reference range : 9.0 - 11.5 sec. The refere nce range was not used to interpret this result as normal/abnormal . RAC (test code Performing = RAC) Organization Information: Site ID: [facility] Name: [facility] Address: [address] [place] [phone] Director: Peter Mcdermott MethodistProthrombin time with [id number] 04:12:00 Test Item Value Reference Range Interpretation Comments INR (test code = 1.0 Reference R lyudmila 6301-6) 0.9-1.1Moderate -i ntensity Warfar in Therapy 2.0-3.0Higher-i nt ensity Warfarin Therapy 3.0-4 .0 Prothrombin time 10.1 See_Comment [Automated (test code = message] The 5902-2) system which generated this result transmitted reference range : 9.0 - 11.5 sec. The reference range was not used to interpr et this result as normal/abnormal . RAC (test code = Performing RAC) Organization Information: Site ID: [facility] Name: [facility] Address: [address] [place] [address] Director: Peter Valencia [place] MethodistPartial thromboplastin time, [id number] 04:12:00 Test Item Value Reference Interpretation Comments Range PTT (test 27 See_Comment This test has not been code = [place] [address]-4) monitoringunfra ctionated heparin therapy . For testing thatis validate d for this type of therapy , please referto the Hep lenin Anti-Xa assay (test [place] e [address]). For additional info rmation, please refer tohttp://educat ion.[employer].Dynamighty/faq/ VIK057(This link is being p rovided for informational/e ducational purposes only.) [Automated message] The sy stem which generated this result transmitted ref erence range: 22 - 34 sec. Th e reference range was not u sed to interpret this result as normal/abnormal . RAC (test Performing code = Organization RAC) Information: Site ID: [place] Name: [facility] Address: [address] [place] [phone] Director: Peter Valencia [place] MethodistECG 12 [id number] 20:15:27 Test Item Value Reference Range Interpretation Comments Ventricular rate (test 64 code = 253) Atrial rate (test code 64 = 255) ME interval (test code 184 = 266) QRSD interval (test 88 code = 260) QT interval (test code 432 = 264) QTC interval (test code 445 = 265) P axis 1 (test code = 72 267) QRS axis 1 (test code = 58 268) T wave axis (test code 54 = 270) EKG impression (test Normal sinus code = 273) rhythm-Normal ECG-In automated comparison with ECG of 08-MAR-2019 15:49,-No significant change was found- Baldemar KennyARS-CoV2/RT-PCR ([facility])2020-05-04 18:46:00 Test Item Value Reference Range Interpretation Comments SARS-COV2/RT-PCR (test Detected Not Detected, AA code = 36245-4) Negative SARS-COV-2 PERFORMING [facility] (test code = 63467-8) MIKAYLA (test code = MIKAYLA) Results are [...] of the Act. Fact Sheet for Healthcare Providers:https://www. Mavent/Documents/ Xpert%20Xpress%20SARS% 20CoV-2/Fact%20Sheets/ 302-3802%71OLQZ-HBN-9% 20HEALTHCARE%20PROVIDE RS%20FACT%20SHEET.pdf Fact Sheet for Healthcare Patients:https://www.CrowdStar/Documents/X pert%20Xpress%20SARS%2 0CoV-2/Fact%20Sheets/3 02-3801%78EDUE-ATN-3%2 0PATIENT%20FACT%20SHEE T.pdf Performing Laboratory:[place] [address] [place] [address] Lab Interpretation Abnormal (test code = 07522-2) [facility])2020-05-04 18:46:00 Test Item Value Reference Range Interpretation Comments SARS-COV2/RT-PCR (test code = Detected Not Detected, Negative A A 7063339) SARS-COV-2 PERFORMING LAB [facility] (test code = 1605265) Results are for the detection of SARS-CoV-2 [...] copies/mL.This SARS CoV-2 test is a rapid, pwhj-uruwIZ-BXO test intended for the qualitative detection of [...] 564(g) of the Act.Fact Sheet for Healthcare Providers:https://www.Mavent/ Documents/Xpert%20Xpress%20SARS%20CoV-2/Fact%20Sheets/3023802%56XLLB-FXS-8%20HE ALTHCARE%20PROVIDERS%20FACT%20SHEET.pdfFact Sheet for Healthcare Patients:https://www.Mavent/Documents/Xpert%20Xpress %20SARS%20CoV-2/Fact%20Sheets/3023801%41WIHU-KXY-7%20PATIENT%20FACT%20SHEET.pdf Performing Laboratory:[facility], [place] [address]ZM Pelvis with Pelvis Transvaginal [id number] 09:51:00STUDY: Pelvis w Pelvis Transvaginal USCOMPARISON: None.HISTORY: - Right lower quadrant abdominal tenderness.FINDINGS:Transvaginal and transabdominal ultrasound images of the pelvis were obtained.Uterus: Has been removed.Ovaries: Have been removed.Pelvic fluid: None.IMPRESSION:Status post hysterectomy and bilateral salpingooophorectomy.Otherwise no significant abnormality.--Read by: Kelvin Lewis MDDictated Date/time: 08/23/19 10:39Electronically Signed by: Dixie Lewis 08/23/1910:40FINAL REPORTUnMoab Regional Hospital PhysiciansUS Breast [id number] 08:22:00COMPLETE ULTRASOUND OF LEFT BREAST AND AXILLA: [...] are provided by the [facility]Division of Diagnostic Imaging.Bashir Esparza M.D. levi/:08/23/2019 09:14:30 Waste Examiner(s): Alyx Almaraz RDMS, [facility] Imagingletter sent: BI-RADS 1/2 Ultrasound BI-RADS: 2 Benign--Read by: Bashir Esparza MDDictated Date/time: 08/23/19 09:14Electronically Signed by: Bashir Esparza MD 08/23/1909:14FINAL REPORT [facility] Digital Mammo DX Elbert w ed [id number] 07:40:00BILATERAL DIGITAL DIAGNOSTIC MAMMOGRAM 3D/2D WITH CAD: [...] recommended. Professional services are provided by the [facility].Bashir Esparza M.D. levi/:08/23/2019 09:13:09 Waste Examiner(s): [facility] ImagingMammogram BI-RADS: 0 Indeterminate--Read by: Bashir Esparza MDDictated Date/time: 08/23/19 09:13Electronically Signed by: Bashir Esparza MD9:13FINAL REPORTUnMoab Regional Hospital Physicians[[facility]] CULTURE, URINE, [id number] 16:33:01 Test Item Value Reference Range Interpretation Comments FINAL REPORT (test code = FINAL No Growth REPORT) [facility][O] Urine Dipstick (In Office)2019-08-18 16:32:00 Test Item Value Reference Range Interpretation Comments Glucose (test code = Glucose) neg N LEUKOCYTES (test code = LEUKOCYTES) neg N NITRITE; Normal (test code = 42145-4) neg N UROBILINOGEN; Normal (test code = 0.2 N 08026-0) PROTEIN; Normal (test code = 26902-0) neg N pH (test code = pH) 7.5 N URINE BLOOD; Normal (test code = neg N 97460-2) SPECIFIC GRAVITY; Normal (test code = 1.020 N 2965-2) KETONES; Normal (test code = 02054-2) neg N BILIRUBIN; Normal (test code = 90554-2) neg N [facility]. [facility] - Affirm VPIII (BV Panel)2019-08-09 00:00:00 Test Item Value Reference Range Interpretation Comments Affirm VPIII (BV Panel) REPORT See Comment (test code = Affirm VPIII (BV Panel) REPORT) [facility]. [facility] - GC/[id number] 00:00:00 Test Item Value Reference Range Interpretation Comments GC REPORT (test code = GC REPORT) Negative Chlamydia REPORT (test code = Negative 26052-7) [facility]
--- NOTE | 2021-04-06 17:39 | RAD REPORT ---
EXAM DESCRIPTION: USExtrem Venous W Compress Bil04/06/2021 5:24 pm CLINICAL HISTORY: Leg swelling COMPARISON: January 2021 FINDINGS: The common femoral, superficial femoral, popliteal and posterior tibial veins bilaterally are compressible and demonstrate augmentation. Doppler demonstrates good flow. IMPRESSION: No evidence of deep venous thrombosis involving either lower extremity.
--- NOTE | 2021-04-06 17:49 | RAD REPORT ---
EXAM DESCRIPTION: Tracy Single View04/06/2021 5:30 pm CLINICAL HISTORY: Shortness of breath COMPARISON: 2019 FINDINGS: The lungs appear clear of acute infiltrate. The heart is normal size. 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
[2021-04-06] MEDS ORDERED: FUROSEMIDE 100 MG/10 ML VIAL IV ONE (19:07)
[2021-04-06 19:27] LABS: Absolute Lymphocytes (CBC) 1.9 K/uL (0.7-4.9); Hematocrit 25.9 % (36.0-45.0); Lymphocytes % 24.7 % (15.3-44.8); MPV 6.7 fL (7.6-11.3); RBC Red Blood Cell Count 2.79 M/uL (3.86-4.86)
[2021-04-06 19:33] LABS: Protime INR 1.04
[2021-04-06 19:41] LABS: Urine Blood Negative (Negative); Urine Glucose Negative (Negative); Urine Protein Negative (Negative); Urine Specific Gravity 1.015 (1.005-1.030)
[2021-04-06 19:49] LABS: ALT/SGPT 21 U/L (12-78); AST/SGOT 17 U/L (15-37); Albumin 3.1 g/dL (3.4-5.0); Alkaline Phosphatase 137 U/L (45-117); BUN Blood Urea Nitrogen 11 mg/dL (7-18); Bicarbonate 27 mmol/L (21-32); Bilirubin Direct < 0.1 mg/dL (0-0.2); Bilirubin Total 0.2 mg/dL (0.2-1.0); Glucose Level 127 mg/dL (74-106); NT PRO-BNP 221 pg/mL (<125); Potassium 3.5 mmol/L (3.5-5.1); Protein, Total 6.2 g/dL (6.4-8.2); Sodium Level 141 mmol/L (136-145); Troponin (Emerg Dept Use Only) < 0.02 ng/mL (0.0-0.045)
--- NOTE | 2021-04-06 21:20 | EDPHYS ---
Physician Documentation [facility] Name: Lydia Hanson Age: 60 yrs Sex: Female : 1960 Arrival Date: 04/06/2021 Time: 16:11 Bed 4 Private MD: ED Physician Larry Guzman HPI: 04/06 18:29 This 60 yrs old Female presents to ER via Ambulatory with complaints of kdr Shortness Of Breath, Feet Swelling. 18:29 The patient has shortness of breath with light activity. Onset: The symptoms/episode kdr began/occurred gradually, yesterday. Duration: The symptoms are continuous, and are steadily getting worse. The patient's shortness of breath is aggravated by exertion, is alleviated by prescription meds. Associated signs and symptoms: Pertinent positives: bilateral lower extremity swelling. Severity of symptoms: At their worst the symptoms were mild moderate just prior to arrival, in the emergency department the symptoms are unchanged. The patient has experienced similar episodes in the past, multiple times, Occurs every 4-6 months. The patient has not recently seen a physician. Historical: - Allergies: 16:29 CEPHALOSPORINS; ll1 16:29 Codeine; ll1 16:29 Latex, Natural Rubber; ll1 16:29 PENICILLINS; ll1 16:29 TETRACYCLINES; ll1 16:29 Adhesives; ll1 - PMHx: 16:29 CKD; V-tach; Sleep Apnea; narcolepsy; Hyperlipidemia; Hypertension; Thyroid problem; ll1 Depression; L hip replacement; - PSHx: 16:29 Hysterectomy; Cholecystectomy; Appendectomy; Carpal Tunnel Repair; ll1 - Immunization history:: Client reports receiving the 2nd dose of the Covid vaccine, Flu vaccine is up to date. - Social history:: Smoking status: Patient denies any tobacco usage or history of. ROS: 18:29 Constitutional: Negative for fever, chills, and weight loss, Eyes: Negative for injury, kdr pain, redness, and discharge, ENT: Negative for injury, pain, and discharge, Neck: Negative for injury, pain, and swelling, Cardiovascular: Negative for chest pain, palpitations, and edema, Abdomen/GI: Negative for abdominal pain, nausea, vomiting, diarrhea, and constipation, Back: Negative for injury and pain, : Negative for injury, bleeding, discharge, and swelling, MS/Extremity: Negative for injury and deformity, Skin: Negative for injury, rash, and discoloration. 18:29 Neuro: Negative for headache, weakness, numbness, tingling, and seizure activity. Psych: Negative for depression, anxiety, suicide ideation, homicidal ideation, and hallucinations, Allergy/Immunology: Negative for hives, rash, and allergies, Endocrine: Negative for neck swelling, polydipsia, polyuria, polyphagia, and marked weight changes. 18:29 Cardiovascular: Positive for edema. 18:29 Respiratory: Positive for shortness of breath, on exertion. Exam: 18:29 Constitutional: This is a well developed, well nourished patient who is awake, alert, kdr and in no acute distress. Head/Face: Normocephalic, atraumatic. Eyes: Pupils equal round and reactive to light, extra-ocular motions intact. Lids and lashes normal. Conjunctiva and sclera are non-icteric and not injected. Cornea within normal limits. Periorbital areas with no swelling, redness, or edema. Neck: Trachea midline, no thyromegaly or masses palpated, and no cervical lymphadenopathy. Supple, full range of motion without nuchal rigidity, or vertebral point tenderness. No Meningismus. Chest/axilla: Normal chest wall appearance and motion. Nontender with no deformity. No lesions are appreciated. Cardiovascular: Regular rate and rhythm with a normal S1 and S2. No gallops, murmurs, or rubs. Normal PMI, no JVD. No pulse deficits. Abdomen/GI: Soft, non-tender, with normal bowel sounds. No distension or tympany. No guarding or rebound. No evidence of tenderness throughout. Back: No spinal tenderness. No costovertebral tenderness. Full range of motion. Skin: Warm, dry with normal turgor. Normal color with no rashes, no lesions, and no evidence of cellulitis. MS/ Extremity: Pulses equal, no cyanosis. Neurovascular intact. Full, normal range of motion. Neuro: Awake and alert, GCS 15, oriented to person, place, time, and situation. Cranial nerves II-XII grossly intact. Motor strength 5/5 in all extremities. Sensory grossly intact. Cerebellar exam normal. Normal gait. Psych: Awake, alert, with orientation to person, place and time. Behavior, mood, and affect are within normal limits. 18:29 Cardiovascular: Edema: 3+ edema to level of left upper thigh, left lower thigh, left knee, left midcalf, left ankle, right upper thigh, right lower thigh, right knee, right midcalf, right ankle, right foot and right toes, pedal edema, that is moderate, that is marked. 18:29 Respiratory: the patient does not display signs of respiratory distress, Respirations: normal, Breath sounds: rales, that are mild, are located in both bases. 21:15 Abdomen/GI: Rectal exam: rectal tone normal, Stool: brown, guaiac negative, mh7 hemorrhoid(s), are not appreciated, mass, is not appreciated, swelling, is not appreciated, tenderness, is not appreciated, fecal impaction, is not appreciated, the exam is chaperoned by the nurse. Vital Signs: 16:25 BP 136 / 75; Pulse 110; Resp 18; Temp 99.5; Pulse Ox 99% ; Weight 88.45 kg; Height 5 ll1 ft. 7 in. (170.18 cm); Pain 4/10; 19:00 BP 114 / 63; Pulse 91; Resp 21; Pulse Ox 99% ; bp 19:42 BP 127 / 89; Pulse 75; Resp 18; Pulse Ox 99% ; rr5 20:30 BP 131 / 89; Pulse 76; Resp 16; Pulse Ox 99% ; rr5 21:10 BP 125 / 89; Pulse 70; Resp 16; Pulse Ox 98% ; rr5 21:59 BP 116 / 89; Pulse 79; Resp 18; Pulse Ox 100% ; rr5 16:25 Body Mass Index 30.54 (88.45 kg, 170.18 cm) ll1 MDM: 21:15 Differential diagnosis: Anemia Anxiety Reaction asthma, Bronchitis CHF exacerbation, mh7 Chronic Obstructive Pulmonary Disease Myocardial Infarction pneumonia, Pneumothorax Psychogenic pulmonary edema, reactive airway disease, pedal edema. Data reviewed: vital signs, nurses notes, old medical records, lab test result(s), cardiac enzymes, CBC, electrolytes, urinalysis, EKG, radiologic studies, plain films, ultrasound. Data interpreted: Pulse oximetry: on room air is 99 %. Interpretation: normal. Counseling: I had a detailed discussion with the patient and/or guardian regarding: the historical points, exam findings, and any diagnostic results supporting the discharge/admit diagnosis, lab results, radiology results, to return to the emergency department if symptoms worsen or persist or if there are any questions or concerns that arise at home. Refusal of service: The patient/guardian displays adequate decision making capability and despite a detailed discussion of alternatives, benefits, risks, and consequences refuses: Admission to the hospital for further work-up and treatment. 21:19 Patient medically screened. 7 04/06 16:13 Order name: CBC with Diff; Complete Time: 19:43 [facility] 04/06 17:10 Order name: LFT's [facility] 04/06 17:10 Order name: Magnesium [facility] 04/06 17:10 Order name: NT PRO-BNP [facility] 04/06 17:10 Order name: PT-INR; Complete Time: 19:43 [facility] 04/06 16:13 Order name: US Extremity Venous W Compression Elbert; Complete Time: 18:57 [facility] 04/06 17:10 Order name: Troponin (emerg Dept Use Only); Complete Time: 20:47 [facility] 04/06 17:10 Order name: XRAY Chest (1 view); Complete Time: 18:57 [facility] 04/06 17:11 Order name: Liver (Hepatic) Function; Complete Time: 19:52 [facility] 04/06 17:11 Order name: Magnesium; Complete Time: 20:47 [facility] 04/06 17:11 Order name: NT PRO-BNP; Complete Time: 20:47 [facility] 04/06 19:24 Order name: Basic Metabolic Panel; Complete Time: 19:51 [facility] 04/06 19:40 Order name: Urine Dipstick-Ancillary; Complete Time: 19:43 [facility] 04/06 17:10 Order name: EKG; Complete Time: 17:11 [facility] 04/06 17:10 Order name: Cardiac monitoring; Complete Time: 18:31 [facility] 04/06 17:10 Order name: EKG - Nurse/Tech; Complete Time: 18:31 [facility] 04/06 17:10 Order name: IV Saline Lock; Complete Time: 19:15 [facility] 04/06 17:10 Order name: Labs collected and sent; Complete Time: 19:15 [facility] 04/06 17:10 Order name: O2 Per Protocol; Complete Time: 18:36 [facility] 04/06 17:10 Order name: O2 Sat Monitoring; Complete Time: 18:36 [facility] 04/06 19:44 Order name: Urine Dipstick-Ancillary (obtain specimen); Complete Time: 19:44 rr5 Administered Medications: 19:10 Drug: Lasix (furosemide) 100 mg Route: IVP; Site: Port-a-cath; bp 20:15 Follow up: Response: No adverse reaction rr5 21:35 Drug: HEParin Flush (100 units/mL) 500 units Route: IVP; Site: Port-a-cath; rr5 21:57 Follow up: Response: No adverse reaction rr5 Point of Care Testing: Guaiac: 21:10 Stool Guaiac: Negative; Stool Hemoccult Control: Pass; rr5 Disposition: 04/06/21 21:19 Discharged to Home. Impression: Dyspnea on Exertion, Pedal Edema, Anemia. - Condition is Stable. - Discharge Instructions: Anemia, Nonspecific, Shortness of Breath, Esfw-fp-[id number], Peripheral Edema. - Prescriptions for Lasix 40 mg Oral Tablet - take 1 tablet by ORAL route 2 times per day .; 10 tablet. - Medication Reconciliation Form, Thank You Letter, Antibiotic Education, Prescription Opioid Use form. - Follow up: Private Physician; When: 1 - 2 days; Reason: Worsening of condition, Recheck today's complaints, Continuance of care, Re-evaluation by your physician. - Problem is an acute exacerbation. - Symptoms are resolved. Signatures: Dispatcher [employer] [facility] Akil Bull MD MD [facility] Elvin Baca, [employer] ASSEMBLER-C [employer] ASSEMBLER-Cla1 Ziyad Zamora, RN RN bp Fareed Mcmullen RN RN rr5 Anastasiia Lagos RN RN ll1 Larry Guzman MD MD 7 Corrections: (The following items were deleted from the chart) 19:23 16:13 BASIC METABOLIC PANEL+C.LAB.BRZ ordered. [facility] 22:00 21:19 04/06/2021 21:19 Discharged to Home. Impression: Dyspnea on Exertion; Pedal rr5 Edema; Anemia. Condition is Stable. Forms are Medication Reconciliation Form, Thank You Letter, Antibiotic Education, Prescription Opioid Use. Follow up: Private Physician; When: 1 - 2 days; Reason: Worsening of condition, Recheck today's complaints, Continuance of care, Re-evaluation by your physician. Problem is an acute exacerbation. Symptoms are resolved. 7
--- NOTE | 2021-04-06 21:20 | ER ---
Nurse's Notes [facility] Name: Lydia Hanson Age: 60 yrs Sex: Female : 1960 Arrival Date: 04/06/2021 Time: 16:11 Bed 4 Private MD: Diagnosis: Dyspnea on Exertion;Pedal Edema;Anemia Presentation: 04/06 16:25 Chief complaint: Patient states: SOB for 2 days. Bilateral leg swelling for 2 days. Low ll1 grade fever for 2 days. Had L hip replacement 1 month ago. Coronavirus screen: Client denies travel out of the [place] in the last 14 days. cough unrelated to allergies, difficulty breathing, fever, Client presents with at least one sign or symptom that may indicate coronavirus-19. Standard/surgical mask placed on the client. Ebola Screen: Patient denies travel to an Ebola-affected area in the 21 days before illness onset. Initial Sepsis Screen: Does the patient meet any 2 criteria? No. Patient's initial sepsis screen is negative. Does the patient have a suspected source of infection? No. Patient's initial sepsis screen is negative. Risk Assessment: Do you want to hurt yourself or someone else? Patient reports no desire to harm self or others. Onset of symptoms was April 05, 2021. 16:25 Method Of Arrival: Ambulatory 1 16:25 Acuity: RIA 3 ll1 Triage Assessment: 18:00 General: Appears in no apparent distress. uncomfortable, Behavior is cooperative, bp appropriate for age, anxious. Pain: Complains of pain in right leg and left leg. EENT: No deficits noted. Neuro: No deficits noted. Cardiovascular: Rhythm is sinus tachycardia. Respiratory: Reports shortness of breath Airway is patent Respiratory effort is even, labored, Onset: The symptoms/episode began/occurred yesterday, the patient has mild shortness of breath. GI: No signs and/or symptoms were reported involving the gastrointestinal system. : No signs and/or symptoms were reported regarding the genitourinary system. Derm: No deficits noted. Musculoskeletal: Swelling present in right leg and left leg. Historical: - Allergies: 16:29 CEPHALOSPORINS; ll1 16:29 Codeine; ll1 16:29 Latex, Natural Rubber; ll1 16:29 PENICILLINS; ll1 16:29 TETRACYCLINES; ll1 16:29 Adhesives; ll1 - PMHx: 16:29 CKD; V-tach; Sleep Apnea; narcolepsy; Hyperlipidemia; Hypertension; Thyroid problem; ll1 Depression; L hip replacement; - PSHx: 16:29 Hysterectomy; Cholecystectomy; Appendectomy; Carpal Tunnel Repair; ll1 - Immunization history:: Client reports receiving the 2nd dose of the Covid vaccine, Flu vaccine is up to date. - Social history:: Smoking status: Patient denies any tobacco usage or history of. Screenin:00 Abuse screen: Denies threats or abuse. Denies injuries from another. Nutritional bp screening: No deficits noted. Tuberculosis screening: No symptoms or risk factors identified. Fall Risk None identified. Assessment: 18:00 General: SEE TRIAGE NOTE. bp 19:40 General: Appears in no apparent distress. comfortable, Behavior is calm, cooperative, rr5 appropriate for age, went to restroom steady gait noted. Pain: Denies pain. Neuro: Level of Consciousness is awake, alert, obeys commands, Oriented to person, place, time. Cardiovascular: Capillary refill < 3 seconds Patient's skin is warm and dry. Edema lower extremities. Cardiovascular: Reports shortness of breath. Respiratory: Reports shortness of breath Airway is patent Respiratory effort is Respiratory pattern is regular, symmetrical, GI: Abdomen is round. : No signs and/or symptoms were reported regarding the genitourinary system. EENT: No signs and/or symptoms were reported regarding the EENT system. Derm: Skin is intact, is healthy with good turgor, Skin temperature is warm. Musculoskeletal: Capillary refill < 3 seconds. 21:00 Reassessment: Patient appears in no apparent distress at this time. Patient is alert, rr5 oriented x 3, equal unlabored respirations, skin warm/dry/pink. awaiting for review. 21:57 Reassessment: Patient appears in no apparent distress at this time. Patient is alert, rr5 oriented x 3, equal unlabored respirations, skin warm/dry/pink. discharge instruction given and explained without complaints made. Vital Signs: 16:25 BP 136 / 75; Pulse 110; Resp 18; Temp 99.5; Pulse Ox 99% ; Weight 88.45 kg; Height 5 ll1 ft. 7 in. (170.18 cm); Pain 4/10; 19:00 BP 114 / 63; Pulse 91; Resp 21; Pulse Ox 99% ; bp 19:42 BP 127 / 89; Pulse 75; Resp 18; Pulse Ox 99% ; rr5 20:30 BP 131 / 89; Pulse 76; Resp 16; Pulse Ox 99% ; rr5 21:10 BP 125 / 89; Pulse 70; Resp 16; Pulse Ox 98% ; rr5 21:59 BP 116 / 89; Pulse 79; Resp 18; Pulse Ox 100% ; rr5 16:25 Body Mass Index 30.54 (88.45 kg, 170.18 cm) ll1 ED Course: 16:11 Patient arrived in ED. bp1 16:12 Akil Bull MD is Attending Physician. kdr 16:28 Triage completed. ll1 16:29 Arm band placed on. ll1 17:24 US Extremity Venous W Compression Elbert In Process Unspecified. EDMS 17:29 XRAY Chest (1 view) In Process Unspecified. EDMS 18:00 Patient has correct armband on for positive identification. Bed in low position. Call bp light in reach. Side rails up X2. 18:24 Ziyad Zamora, MARITA is Primary Nurse. bp 18:31 Patient has correct armband on for positive identification. Fall risk band placed. mh5 Placed in gown. Side rails up X2. Adult w/ patient. Warm blanket given. Pillow given. night monitor on. Pulse ox on. NIBP on. 18:43 Initial lab(s) drawn, by ED staff, sent to lab. EKG done, by ED staff, reviewed by [facility] Akil Bull MD. 18:52 Missed attempt(s): 22 gauge in right antecubital area. Bleeding controlled, band aid ca1 applied, catheter tip intact. 19:07 Attending Physician role handed off by Akil Bull MD [facility] 19:07 Larry Guzman MD is Attending Physician. [facility] 19:10 Accessed Port-a-Cath. using accessed w/ #19 Mckee needle, ,sterile technique, per hospital protocol. Clean \T\ dry. Dressing intact. Good blood return. Flushes easily. 21:56 No provider procedures requiring assistance completed. IV discontinued, intact, rr5 bleeding controlled, No redness/swelling at site. Pressure dressing applied. Administered Medications: 19:10 Drug: Lasix (furosemide) 100 mg Route: IVP; Site: Port-a-cath; bp 20:15 Follow up: Response: No adverse reaction rr5 21:35 Drug: HEParin Flush (100 units/mL) 500 units Route: IVP; Site: Port-a-cath; rr5 21:57 Follow up: Response: No adverse reaction rr5 Point of Care Testing: Guaiac: 21:10 Stool Guaiac: Negative; Stool Hemoccult Control: Pass; rr5 Intake: 19:44 voided post lasix rr5 Output: 19:44 Other: 1; Total: 0ml. rr5 19:44 voided post lasix rr5 Outcome: 21:19 Discharge ordered by . edinson 21:56 Discharged to home ambulatory. rr5 21:56 Condition: stable 21:56 Discharge instructions given to patient, Instructed on discharge instructions, follow up and referral plans. medication usage, Demonstrated understanding of instructions, follow-up care, medications, Prescriptions given X 1. 22:00 Patient left the ED. rr5 Signatures: Dispatcher [employer] EDMS Akil Bull MD MD kdr Martinez, Maria 5 Ziyad Zamora, RN RN bp Fareed Mcmullen RN RN rr5 Anastasiya Gee RN RN ca1 Anastasiia Lagos RN RN ll1 Elham Stout Maurice, MD MD 7
[2021-04-06] MEDS ORDERED: HEPARIN 500 UNIT/5 ML SYR IV ONE (21:53)
[2021-04-06 22:07] VITALS: TEMP 99.5
[2021-04-06 22:13] VITALS: BP 116/89; O2SAT 100
--- NOTE | 2021-04-07 07:47 | EKG ---
Test Date: 2021-04-06 Test Time: 18:38:55 Shape Brick Molder: MIKEY MEASUREMENT RESULTS: Intervals: Rate: 85 DC: 192 QRSD: 84 QT: 362 QTc: 430 [place]: P: 55 DC: 192 QRS: 33 T: 42 INTERPRETIVE STATEMENTS: Normal sinus rhythm Low voltage QRS Borderline ECG Compared to ECG 05/15/2020 18:24:31 Low QRS voltage now present Electronically Signed On 04-07-21 07:46:17 CDT by Elliott Moon
== END 2021-04-06 22:00 | disposition home or self-care (01) ==
LOC: ER 16:09
DX: R60.9 Edema, unspecified (principal); D64.9 Anemia, unspecified; I12.9 Hypertensive chronic kidney disease with stage 1 through stage 4 chronic kidney disease, or unspecified chronic kidney disease; N18.9 Chronic kidney disease, unspecified; Z88.0 Allergy status to penicillin; Z88.1 Allergy status to other antibiotic agents; Z88.3 Allergy status to other anti-infective agents; Z88.5 Allergy status to narcotic agent; Z91.040 Latex allergy status; Z91.048 Other nonmedicinal substance allergy status
CPT/HCPCS: 93005; 85025; 80048; 36415; 83735; 85610; 80076; 81003; 84484; 83880; 71045; 93970; 96375; 96374; 99285; J1642

== ENCOUNTER 2021-08-03 17:33 | Emergency (ER) | payer BC, OTHER ==
[2021-08-03 18:49] LABS: Protime INR 1.2
[2021-08-03 19:14] LABS: ALT/SGPT 19 U/L (12-78); AST/SGOT 26 U/L (15-37); Albumin 3.1 g/dL (3.4-5.0); Alkaline Phosphatase 143 U/L (45-117); BUN Blood Urea Nitrogen 22 mg/dL (7-18); Bicarbonate 27 mmol/L (21-32); Bilirubin Direct 0.1 mg/dL (0-0.2); Bilirubin Total 0.5 mg/dL (0.2-1.0); Glucose Level 80 mg/dL (74-106); NT PRO-BNP 1629 pg/mL (<125); Potassium 4.5 mmol/L (3.5-5.1); Protein, Total 6.5 g/dL (6.4-8.2); Sodium Level 139 mmol/L (136-145); Troponin (Emerg Dept Use Only) < 0.02 ng/mL (0.0-0.045)
--- NOTE | 2021-08-03 19:14 | RAD REPORT ---
EXAM DESCRIPTION: RAD - Chest Single View - 08/03/2021 6:54 pm CLINICAL HISTORY: dizziness COMPARISON: Chest Single View dated 04/06/2021; Chest Pa And Lat (2 Views) dated 09/21/2020; Chest Si ngle View dated 05/15/2020; Chest Single View dated 05/05/2020 FINDINGS: Lines: Right IJ approach Port-A-Cath with tip overlying the right atrium. Lungs: Diffuse increased prominence of the pulmonary interstitium. Pleural: No significant pleural effusions or pneumothorax. Cardiac: Cardiomegaly appear Bones: No acute fractures. Other: IMPRESSION: Mild pulmonary edema.
--- NOTE | 2021-08-03 19:15 | RAD REPORT ---
EXAM DESCRIPTION: CT - Head Brain Wo Cont - 08/03/2021 7:02 pm CLINICAL HISTORY: DIZZINESS COMPARISON: Head Brain Wo Cont dated 07/21/2018 TECHNIQUE: All CT scans are performed using dose optimization technique as appropriate and may inclu de automated exposure control or mA/KV adjustment according to patient size. FINDINGS: No intracranial hemorrhage, hydrocephalus or extra-axial fluid collection.No areas of brai n edema or evidence of midline shift. Chronic small vessel ischemic changes. The paranasal sinuses and mastoids are clear. The calvarium is intact. IMPRESSION: No acute intracranial abnormality.
[2021-08-03] MEDS ORDERED: NA CHLORIDE 0.9% 500 ML ONE ×2 (20:12→21:29)
[2021-08-03 20:14] LABS: Absolute Lymphocytes (CBC) 1.4 K/uL (0.7-4.9); Basophils % 0.4 % (0-1.3); Hematocrit 25.3 % (36.0-45.0); Lymphocytes % 27.8 % (15.3-44.8); MPV 7.3 fL (7.6-11.3); RBC Red Blood Cell Count 2.92 M/uL (3.86-4.86)
[2021-08-03 20:17] LABS: Urine Blood Negative (Negative); Urine Glucose Negative (Negative); Urine Protein Negative (Negative); Urine Specific Gravity 1.015 (1.005-1.030)
[2021-08-03] MEDS ORDERED: KETOROLAC 30 MG/ML INJ ONE (20:18)
[2021-08-03 20:56] LABS: Urine Bacteria 20-50 /HPF (<20)
[2021-08-03 20:57] LABS: Urine Mucus 1+ /HPF (NONE SEEN)
--- NOTE | 2021-08-03 23:10 | ER ---
Nurse's Notes [facility] Name: Lydia Hanson Age: 61 yrs Sex: Female : 1960 Arrival Date: 08/03/2021 Time: 17:47 Bed 18 Private MD: Diagnosis: Volume depletion, unspecified;UTI/ Urinary tract infection, site not specified;Pain in right hip Presentation: 08/03 18:09 Chief complaint: Patient states: weakness, rt hip pain. rt hip replacement revision 3 tc5 weeks ago due to infection. pt reports she has been dizzy and feels like her equalibrium is off. 18:09 Method Of Arrival: EMS tc5 18:12 Coronavirus screen: Vaccine status: Patient reports receiving the 2nd dose of the covid tc5 vaccine. moderna. Ebola Screen: Patient negative for fever greater than or equal to 101.5 degrees Fahrenheit, and additional compatible Ebola Virus Disease symptoms Patient denies exposure to infectious person. Patient denies travel to an Ebola-affected area in the 21 days before illness onset. No symptoms or risks identified at this time. Risk Assessment: Do you want to hurt yourself or someone else? Patient reports no desire to harm self or others. 18:12 Acuity: RIA 3 tc5 18:13 Onset of symptoms was August 01, 2021. tc5 19:30 Initial Sepsis Screen: Does the patient meet any 2 criteria? No. Patient's initial dc2 sepsis screen is negative. 19:30 Initial Sepsis Screen: Does the patient have a suspected source of infection? No. dc2 Patient's initial sepsis screen is negative. Triage Assessment: 18:21 General: Appears distressed, obese, well groomed, Behavior is calm, cooperative, tc5 appropriate for age, drowsy. Pain: Complains of pain in pelvis Quality of pain is described as 7/10. Historical: - Allergies: 19:30 Adhesives; dc2 19:30 Codeine; dc2 19:30 Latex, Natural Rubber; dc2 19:30 CEPHALOSPORINS; dc2 19:30 TETRACYCLINES; dc2 19:30 PENICILLINS; dc2 - PMHx: 19:30 CKD; Depression; Hyperlipidemia; Hypertension; L hip replacement; Sleep Apnea; dc2 narcolepsy; Thyroid problem; V-tach; - Immunization history:: Adult Immunizations up to date, Client reports receiving the 2nd dose of the Covid vaccine, Last tetanus immunization: up to date. - Social history:: Smoking status: Patient/guardian denies using tobacco products. Screenin:22 Abuse screen: Denies threats or abuse. Denies injuries from another. Nutritional tc5 screening: No deficits noted. Tuberculosis screening: No symptoms or risk factors identified. Fall Risk Fall in past 12 months (25 points). IV access (20 points). Ambulatory Aid- Crutches/Cane/Walker (15 pts). Assessment: 20:21 Reassessment: 15 mg of toradol was administered, prior to cancelling, Provider notified.lh3 21:30 Reassessment: Patient appears in no apparent distress at this time. Patient states dc2 feeling better. Patient states symptoms have improved. 22:45 Reassessment: Walker obtained and pt demonstrate ambulation in room with walker. Pt dc2 states she feels that she will be ok to go home. Will notify provider. Vital Signs: 18:11 BP 97 / 52; Pulse 79; Resp 22; Temp 98.4; Pulse Ox 99% ; Weight 92.99 kg; Height 5 ft. tc5 7 in. (170.18 cm); Pain 7/10; 18:13 BP 103 / 56; Pulse 72; Resp 16; Temp 98.4; Pulse Ox 99% ; Weight 92.99 kg; Height 5 ft. tc5 7 in. (170.18 cm); Pain 7/10; 19:45 BP 110 / 52; Pulse 61; Resp 17; Pulse Ox 98% on R/A; Pain 7/10; dc2 21:00 BP 110 / 55; Pulse 67; Resp 18; Temp 98.1; Pulse Ox 97% ; Pain 2/10; dc2 23:00 BP 107 / 52; Pulse 62; Resp 18; Pulse Ox 97% on R/A; Pain 4/10; dc2 23:30 BP 111 / 57; Pulse 67; Resp 17; Temp 97.5; Pulse Ox 99% on R/A; Pain 4/10; dc2 18:13 Body Mass Index 32.11 (92.99 kg, 170.18 cm) tc5 ED Course: 17:47 Patient arrived in ED. ss 17:49 Serenity Emery, RN is Primary Nurse. tc5 17:49 Serenity Emery, RN is Primary Nurse. tc5 17:58 Cipriano Hernandez PA is PHCP. cp 17:58 Akil Bull MD is Attending Physician. cp 18:13 Triage completed. tc5 18:36 Inserted saline lock: 20 gauge in right forearm, using aseptic technique. tc5 18:54 XRAY Chest (1 view) In Process Unspecified. EDMS 19:02 CT Head Brain wo Cont In Process Unspecified. EDMS 19:18 Report given to loida KIRKLAND. tc5 19:30 Arm band placed on. dc2 19:30 Patient has correct armband on for positive identification. Allergy band placed. Fall dc2 risk band placed. Bed in low position. Side rails up X 1. monitor worker on. Pulse ox on. NIBP on. Door closed. Lights dimmed. 23:30 IV discontinued, intact, bleeding controlled, No redness/swelling at site. Pressure dc2 dressing applied. 23:30 No provider procedures requiring assistance completed. dc2 Administered Medications: 19:49 Drug: NS 0.9% 500 ml Route: IV; Rate: bolus; Site: right forearm; lh3 20:00 CANCELLED (Patient ): Ketorolac 15 mg IVP once cp 20:36 CANCELLED (Physician Discretion): fentaNYL (PF) 25 mcg IVP once; RASS on ADMIN: cp Combtv4, Very Agttd3, Agttd2, Rstlss1, AlertClm0, Drwsy-1, Lt Sdtn-2, Mod Sdtn-3, Dp Sdtn-4, UnArsble-5 21:15 Drug: NS 0.9% 500 ml Route: IV; Rate: bolus; Infused Over: 30 mins; Site: right dc2 antecubital; Delivery: Primary tubing; 23:38 Follow up: IV Status: Completed infusion dc2 23:10 Drug: Rocephin (cefTRIAXone) 1 grams Route: IV; Rate: calculated rate; Site: right dc2 forearm; 23:35 Follow up: IV Status: Completed infusion dc2 Outcome: 23:10 Discharge ordered by . cp 23:36 Discharged to home via wheelchair. dc2 23:36 Condition: improved 23:36 Discharge instructions given to patient, Demonstrated understanding of instructions, medications, Prescriptions given X 1. 23:39 Patient left the ED. dc2 Signatures: Dispatcher [employer] EDCorinne Browne RN RN ss Cipriano Hernandez PA PA cp Hardee, Latisha, RN RN 3 Loida Chou RN RN dc2 Serenity Emery RN RN tc5 Corrections: (The following items were deleted from the chart) 23:58 00:00 BP 111 / 57; Pulse 67bpm; Resp 17bpm; Pulse Ox 99% RA; Temp 97.5F; Pain 4/10; dc2 dc2
--- NOTE | 2021-08-03 23:11 | EDPHYS ---
Physician Documentation [facility] Name: Lydia Hanson Age: 61 yrs Sex: Female : 1960 Arrival Date: 08/03/2021 Time: 17:47 Bed 18 Private MD: ED Physician Akil Bull HPI: 08/03 18:20 This 61 yrs old Female presents to ER via EMS with complaints of Weakness, cp Hip Pain. 18:20 The patient presents to the emergency department with weakness of the entire body, cp generalized weakness, difficult walking, increased pain to right hip. 18:20 Onset: The symptoms/episode began/occurred today. cp 18:20 Associated signs and symptoms: Pertinent positives: dizziness, Pertinent negatives: cp altered mental status, fever, headache, syncope. Patient's baseline: Neuro: alert and fully oriented, Motor: no deficits, Ambulation: walks with assist only, uses walker, Speech: normal. Patient reports she is currently receiving IV Vancomycin for right hip infection after hip replacement surgery. Patient reports second surgery to right hip occurred 3 weeks ago. Historical: - Allergies: 19:30 Adhesives; dc2 19:30 Codeine; dc2 19:30 Latex, Natural Rubber; dc2 19:30 CEPHALOSPORINS; dc2 19:30 TETRACYCLINES; dc2 19:30 PENICILLINS; dc2 - PMHx: 19:30 CKD; Depression; Hyperlipidemia; Hypertension; L hip replacement; Sleep Apnea; dc2 narcolepsy; Thyroid problem; V-tach; - Immunization history:: Adult Immunizations up to date, Client reports receiving the 2nd dose of the Covid vaccine, Last tetanus immunization: up to date. - Social history:: Smoking status: Patient/guardian denies using tobacco products. ROS: 18:30 Constitutional: Negative for body aches, chills, fever, poor PO intake. cp 18:30 Eyes: Negative for injury, pain, redness, and discharge. cp 18:30 ENT: Negative for ear pain, sore throat, difficulty swallowing, difficulty handling secretions. 18:30 Cardiovascular: Positive for edema, Negative for chest pain, palpitations. 18:30 Respiratory: Negative for cough, shortness of breath, wheezing. 18:30 Abdomen/GI: Negative for abdominal pain, nausea, vomiting, and diarrhea, constipation, black/tarry stool, rectal bleeding. 18:30 Back: Negative for pain at rest, pain with movement. 18:30 MS/extremity: Positive for pain, of the right hip. 18:30 Neuro: Positive for dizziness, weakness, Negative for altered mental status, headache, syncope. 18:30 All other systems are negative. Exam: 18:33 Constitutional: The patient appears in no acute distress, alert, awake, cp non-diaphoretic, non-toxic, well developed, well nourished, obese. 18:33 Head/Face: Normocephalic, atraumatic. cp 18:33 Eyes: Periorbital structures: appear normal, Pupils: equal, round, and reactive to light and accomodation, Extraocular movements: intact throughout, Conjunctiva: normal, no exudate, no injection, Sclera: no appreciated abnormality, Lids and lashes: appear normal, bilaterally. 18:33 ENT: External ear(s): are unremarkable, Nose: is normal, Mouth: Lips: dry, Oral mucosa: moist, Posterior pharynx: Airway: no evidence of obstruction, patent. 18:33 Neck: ROM/movement: is normal, is supple, without pain, no range of motions limitations. 18:33 Chest/axilla: Inspection: normal, Palpation: is normal, no crepitus, no tenderness. 18:33 Cardiovascular: Rate: normal, Rhythm: regular, Edema: ankle edema, that is mild, JVD: is not appreciated. 18:33 Respiratory: the patient does not display signs of respiratory distress, Respirations: normal, no use of accessory muscles, no retractions, labored breathing, is not present, Breath sounds: are clear throughout, no decreased breath sounds, no stridor, no wheezing. 18:33 Abdomen/GI: Inspection: abdomen appears normal, Palpation: abdomen is soft and non-tender, in all quadrants. 18:33 Skin: surgical incision of right hip appears w/o erythema, swelling and/or dehiscence. Emily in place. 18:33 Neuro: Orientation: to person, place \T\ time. Mentation: able to follow commands, slow to respond, Motor: moves all fours, general weakness with no focal deficits, Sensation: no obvious gross deficits. Vital Signs: 18:11 BP 97 / 52; Pulse 79; Resp 22; Temp 98.4; Pulse Ox 99% ; Weight 92.99 kg; Height 5 ft. tc5 7 in. (170.18 cm); Pain 7/10; 18:13 BP 103 / 56; Pulse 72; Resp 16; Temp 98.4; Pulse Ox 99% ; Weight 92.99 kg; Height 5 ft. tc5 7 in. (170.18 cm); Pain 7/10; 19:45 BP 110 / 52; Pulse 61; Resp 17; Pulse Ox 98% on R/A; Pain 7/10; dc2 21:00 BP 110 / 55; Pulse 67; Resp 18; Temp 98.1; Pulse Ox 97% ; Pain 2/10; dc2 23:00 BP 107 / 52; Pulse 62; Resp 18; Pulse Ox 97% on R/A; Pain 4/10; dc2 23:30 BP 111 / 57; Pulse 67; Resp 17; Temp 97.5; Pulse Ox 99% on R/A; Pain 4/10; dc2 18:13 Body Mass Index 32.11 (92.99 kg, 170.18 cm) tc5 MDM: 18:00 Patient medically screened. cp 23:10 Data reviewed: vital signs, nurses notes, lab test result(s), radiologic studies, CT cp scan, plain films. 23:10 Test interpretation: by ED physician or midlevel provider: plain radiologic studies. cp Counseling: I had a detailed discussion with the patient and/or guardian regarding: the historical points, exam findings, and any diagnostic results supporting the discharge/admit diagnosis, lab results, radiology results, to return to the emergency department if symptoms worsen or persist or if there are any questions or concerns that arise at home. ED course: VSS. Patient reports symptoms markedly improved and observed ambulating in ED with use of walker. Will discharge to home for continued monitoring. 08/03 18:16 Order name: Basic Metabolic Panel; Complete Time: 19:17 cp 08/03 19:17 Interpretation: Normal except: BUN 22; CRE 1.72; GFR 30. cp 08/03 18:16 Order name: CBC with Diff; Complete Time: 20:37 cp 08/03 20:37 Interpretation: Normal except: RBC 2.92; HGB 8.3; HCT 25.3; MCV 86.5; MCH 28.5; RDW cp 15.3; MPV 7.3. 08/03 18:16 Order name: LFT's; Complete Time: 19:17 cp 08/03 21:51 Interpretation: Normal except: ALK 143; ALB 3.1; A/G 0.9. 08/03 18:16 Order name: Magnesium; Complete Time: 19:17 08/03 18:16 Order name: NT PRO-BNP; Complete Time: 19:17 08/03 19:18 Interpretation: Abnormal: NT PRO-BNP 1629. 08/03 18:16 Order name: PT-INR; Complete Time: 19:17 08/03 21:51 Interpretation: Abnormal: PT 13.8. 08/03 18:16 Order name: CT Head Brain wo Cont; Complete Time: 19:17 08/03 18:16 Order name: Troponin (emerg Dept Use Only); Complete Time: 19:17 08/03 18:16 Order name: XRAY Chest (1 view); Complete Time: 19:17 08/03 18:16 Order name: Procalcitonin; Complete Time: 19:48 08/03 18:16 Order name: Urine Microscopic Only; Complete Time: 21:49 08/03 21:49 Interpretation: Normal except: UWBC 5-10; URBC 5-10; UBACT 20-50. 08/03 20:17 Order name: Urine Dipstick-Ancillary; Complete Time: 20:37 EDPA 08/03 20:58 Order name: Urine Culture [facility] 08/03 18:16 Order name: EKG; Complete Time: 18:17 08/03 18:16 Order name: Cardiac monitoring 08/03 18:16 Order name: EKG - Nurse/Tech 08/03 18:16 Order name: IV Saline Lock; Complete Time: 18:36 08/03 18:16 Order name: Labs collected and sent; Complete Time: 18:36 08/03 18:16 Order name: O2 Per Protocol 08/03 18:16 Order name: O2 Sat Monitoring 08/03 18:16 Order name: Cath; Complete Time: 20:20 08/03 18:16 Order name: Urine Dipstick-Ancillary (obtain specimen); Complete Time: 20:20 08/03 18:50 Order name: Labs - recollect needed; Complete Time: 19:48 mn 08/03 21:48 [place] [facility] [place] ambulate patient; Complete Time: 23:19 cp Administered Medications: 19:49 Drug: NS 0.9% 500 ml Route: IV; Rate: bolus; Site: right forearm; 3 20:00 CANCELLED (Patient ): Ketorolac 15 mg IVP once cp 20:36 CANCELLED (Physician Discretion): fentaNYL (PF) 25 mcg IVP once; RASS on ADMIN: cp Combtv4, Very Agttd3, Agttd2, Rstlss1, AlertClm0, Drwsy-1, Lt Sdtn-2, Mod Sdtn-3, Dp Sdtn-4, UnArsble-5 21:15 Drug: NS 0.9% 500 ml Route: IV; Rate: bolus; Infused Over: 30 mins; Site: right dc2 antecubital; Delivery: Primary tubing; 23:38 Follow up: IV Status: Completed infusion dc2 23:10 Drug: Rocephin (cefTRIAXone) 1 grams Route: IV; Rate: calculated rate; Site: right dc2 forearm; 23:35 Follow up: IV Status: Completed infusion dc2 Disposition: 08/04 17:02 Co-signature as Attending Physician, Akil Bull MD I agree with the assessment and kdr plan of care. Disposition Summary: 08/03/21 23:10 Discharge Ordered Location: Home cp Problem: new cp Symptoms: have improved cp Condition: Stable cp Diagnosis - Volume depletion, unspecified cp - UTI/ Urinary tract infection, site not specified cp - Pain in right hip cp Followup: cp - With: Private Physician - When: 2 - 3 days - Reason: Recheck today's complaints Discharge Instructions: - Discharge Summary Sheet cp - Dehydration, Adult cp - Urinary Tract Infection, Adult cp - Hip Pain cp Forms: - Medication Reconciliation Form cp - Thank You Letter cp - Antibiotic Education cp - Prescription Opioid Use cp Prescriptions: - cefpodoxime 200 mg Oral Tablet - take 1 tablet by ORAL route every 12 hours for 7 days with food; 14 tablet; cp Refills: 0, Product Selection Permitted Signatures: Dispatcher [employer] Akil Gant MD MD kdr Page, Corey, PA PA cp Thompson, Moriah mt Hardee, Latisha, RN RN 3 Jovanna Chou RN RN wa2 Serenity Emery RN RN tc5 Corrections: (The following items were deleted from the chart) 08/03 20:00 19:49 Ketorolac 15 mg IVP once ordered. cp cp 20:36 20:01 fentaNYL (PF) 25 mcg IVP once; RASS on ADMIN: Combtv4, Very Agttd3, Agttd2, cp Rstlss1, AlertClm0, Drwsy-1, Lt Sdtn-2, Mod Sdtn-3, Dp Sdtn-4, UnArsble-5 ordered. cp
[2021-08-03] MEDS ORDERED: CEFTRIAXONE 1000 MG/VIAL ONE (23:31)
[2021-08-03] MEDS ORDERED: NA CHLORIDE 0.9% 50 ML ONE (23:32)
[2021-08-04 00:28] VITALS: TEMP 98.1; O2SAT 97
[2021-08-04 00:29] VITALS: BP 107/52
== END 2021-08-03 23:39 | disposition home or self-care (01) ==
LOC: ER 17:33
DX: E86.9 Volume depletion, unspecified (principal); N39.0 Urinary tract infection, site not specified; M25.551 Pain in right hip; I10 Essential (primary) hypertension; Z88.0 Allergy status to penicillin; Z88.1 Allergy status to other antibiotic agents; Z88.3 Allergy status to other anti-infective agents; Z88.5 Allergy status to narcotic agent; Z91.040 Latex allergy status; Z91.048 Other nonmedicinal substance allergy status
CPT/HCPCS: 96365; 96361; 87088; 85025; 87086; 80048; 36415; 83735; 85610; 80076; 84484; 84145; 83880; 70450; 71045; 99284; J7040 ×2; 81003; 81015

== ENCOUNTER 2021-08-04 07:36 | Emergency (ER) | payer BC, OTHER ==
[2021-08-04] MEDS ORDERED: MORPHINE 4 MG/ML SYR ONE ×3 (08:34→13:30)
[2021-08-04] MEDS ORDERED: ONDANSETRON 4 MG/2 ML VIAL ONE ×2 (08:34→13:30)
--- NOTE | 2021-08-04 09:49 | RAD REPORT ---
EXAM DESCRIPTION: RAD - Pelvis - 08/04/2021 9:13 am CLINICAL HISTORY: right hip pain Fall, hip pain and swelling COMPARISON: Hip Bilateral With Pelvis dated 08/24/2018; Knee Right 3 View dated 08/04/2021; Hip Right 2 View dated 08/04/2021 FINDINGS: Bilateral total hip arthroplasties are present. No evidence of hardware loosening or infec tion. Skin shaan are present on the right. Obliquely oriented fracture of the proximal right femur is seen. This is better visualized on the dedicated right hip radiographs.
--- NOTE | 2021-08-04 09:51 | RAD REPORT ---
EXAM DESCRIPTION: RAD - Knee Right 3 View - 08/04/2021 8:50 am CLINICAL HISTORY: PAIN COMPARISON: No comparisons FINDINGS: Limited examination in nonstandard anatomic positioning are submitted. No fracture or disl ocation of the knee. No joint effusion.
--- NOTE | 2021-08-04 09:52 | RAD REPORT ---
EXAM DESCRIPTION: RAD - Hip Right 2 View - 08/04/2021 8:50 am CLINICAL HISTORY: PAIN COMPARISON: No comparisons FINDINGS: Oblique fracture of the proximal right femur is present with moderate angulation. Right to bernadette hip hardware is in place. Skin shaan are present laterally.
--- NOTE | 2021-08-04 10:18 | ER ---
Nurse's Notes [facility] Name: Lydia Hanson Age: 61 yrs Sex: Female : 1960 Arrival Date: 08/04/2021 Time: 07:37 Bed 27 Private MD: Diagnosis: Closed oblique fracture of right femur Presentation: 08/04 07:49 Chief complaint: Patient states: c/o right hip pain s/p fall today. denies loc. states kh1 just recently had bilateral hip repalcement. Care prior to arrival: Medication(s) given: 100 mcg fentyal. Mechanism of Injury: Fall from standing position. 07:49 Acuity: RIA 3 07:49 Method Of Arrival: EMS: [facility] 12:07 Coronavirus screen: Vaccine status: Patient reports receiving the 2nd dose of the covid kh1 vaccine. Ebola Screen: No symptoms or risks identified at this time. Initial Sepsis Screen: Does the patient meet any 2 criteria? No. Patient's initial sepsis screen is negative. Does the patient have a suspected source of infection? No. Patient's initial sepsis screen is negative. Risk Assessment: Do you want to hurt yourself or someone else? Patient reports no desire to harm self or others. Onset of symptoms was August 04, 2021. Historical: - Allergies: 07:54 Adhesives; ss 07:54 CEPHALOSPORINS; ss 07:54 Codeine; ss 07:54 Latex, Natural Rubber; ss 07:54 PENICILLINS; ss 07:54 TETRACYCLINES; ss - PMHx: 07:54 CKD; Depression; Hyperlipidemia; Hypertension; L hip replacement; narcolepsy; Sleep ss Apnea; Thyroid problem; V-tach; - Immunization history:: Adult Immunizations up to date. - Immunization history: Last tetanus immunization: - up to date. - Social history:: Smoking status: Patient denies any tobacco usage or history of. Patient/guardian denies using alcohol, street drugs, tobacco products. - Code Status:: Full code. Screenin:00 Abuse screen: Denies threats or abuse. Tuberculosis screening: No symptoms or risk [facility] factors identified. 12:11 Nutritional screening: No deficits noted. Fall Risk Fall in past 12 months (25 points). kh1 Secondary diagnosis (15 points) impaired mobility, IV access (20 points). Ambulatory Aid- Crutches/Cane/Walker (15 pts). Gait- Weak (10 pts.). Primary Survey: 07:58 NO uncontrolled hemorrhage observed. Breathing/Chest: Respiratory pattern: regular, kh1 Respiratory effort: spontaneous, Breath sounds: clear, Chest inspection: symmetrical rise and fall of the chest. Circulation: Cardiac rhythm: sinus rhythm Heart tones present. Pulses: palpable right radial artery, right posterior tibial artery, left radial artery and left posterior tibial artery. Disability Alert. Exposure/Environment: All clothing and personal items were removed. Forensic evidence collection is not deemed to be indicated at this time. Items placed in patient belonging bag. 12:07 Reassessment Breathing/Chest Respiratory pattern Regular Respiratory effort Spontaneous kh1 Unlabored Breath sounds Clear Chest inspection Symmetrical. Assessment: 07:56 General: Appears in no apparent distress. uncomfortable, Behavior is cooperative, kh1 appropriate for age, crying. Pain: Complains of pain in right hip pain. Neuro: Level of Consciousness is awake, alert, obeys commands, Oriented to person, place, time, situation, Cotton Picker are equal bilaterally Cardiovascular: Reports None. Respiratory: No deficits noted. Reports Airway is patent Respiratory effort is even, unlabored, Respiratory pattern is regular. Musculoskeletal: Tenderness present in right hip Reports pain in right hip. 09:09 Reassessment: Patient appears in no apparent distress at this time. No changes from [facility] previously documented assessment. Patient and/or family updated on plan of care and expected duration. Pain level reassessed. Patient is alert, oriented x 3, equal unlabored respirations, skin warm/dry/pink. Vital Signs: 07:59 BP 123 / 62; Pulse 83 MON; Resp 18 S; Temp 98.3; Pulse Ox 100% on R/A; Weight 92.99 kg; 1 Height 5 ft. 7 in. (170.18 cm); Pain 10/10; 09:09 BP 115 / 61; Pulse 80; Resp 20; Pulse Ox 95% ; kh1 12:05 BP 121 / 64; Pulse 84; Resp 18; Temp 98.1; Pulse Ox 92% on R/A; 1 07:59 Body Mass Index 32.11 (92.99 kg, 170.18 cm) [facility] [place] Coma Score: 07:59 Eye Response: spontaneous(4). Verbal Response: oriented(5). Motor Response: obeys kh1 commands(6). Total: 15. Trauma Score (Adult): 07:59 Eye Response: spontaneous(1); Verbal Response: oriented(1); Motor Response: obeys kh1 commands(2); Systolic BP: > 89 mm Hg(4); Respiratory Rate: 10 to 29 per min(4); Arlet Score: 15; Trauma Score: 12 ED Course: 07:37 Patient arrived in ED. ss 07:39 Baljeet De La Rosa NP is PHCP. pm1 07:39 Cooper Luong MD is Attending Physician. pm1 07:49 Dariana Ortiz is Primary Nurse. kh1 07:55 Triage completed. kh1 08:00 Patient has correct armband on for positive identification. Fall risk band placed. kh1 Placed in gown. Bed in low position. Call light in reach. Side rails up X2. 08:00 Patient maintains SpO2 saturation greater than 95% on room air. kh1 08:50 Hip Right 2 View XRAY In Process Unspecified. EDMS 08:50 Knee Right 3 View XRAY In Process Unspecified. EDMS 09:[address] Yahir Hendrix paged at [phone]/ per answering service if the instructor of education eb does not call back within 15 minutes to call back. 09:[address] Hendrix at [phone]. eb 09:13 Pelvis XRAY In Process Unspecified. EDMS 09:16 connected Enid the instructor of education for Dr. Hendrix with Baljeet Lyon for patient consultation. eb 10:06 initiated a transfer with Donita from the [facility] transfer center. eb 11:30 administrative approval given by Heike Castillo Supervisor/ patient has been eb accepted to the [facility] Rm 515/ Dr. Lydia Hendrix has accepted the patient in transfer/ report to be called to [phone]. 12:06 Assist provider with fracture care Immobilized with splint traction. kh1 12:13 Splint/sling/ice applied as appropriate. EKG completed in triage. Results shown to . kh1 12:13 Thermoregulation: none. kh1 Administered Medications: 08:15 Drug: Zofran (Ondansetron) 4 mg Route: IVP; Site: PICC; kh1 08:35 Drug: morphine 4 mg Route: IVP; Site: PICC; [facility] 09:38 Drug: morphine 4 mg Route: IVP; Site: PIC; [facility] 12:50 Drug: morphine 4 mg Route: IVP; Site: PICC; [facility] 12:50 Drug: NS 0.9% 1000 ml Route: IV; Rate: 100 ml/hr; Site: PICC; [facility] 12:50 Drug: Zofran (Ondansetron) 4 mg Route: IVP; Site: PIC; [facility] Outcome: 10:17 ER care complete, transfer ordered by . pm1 12:12 Patient's length of stay was not longer than 2 hours. Patient's length of stay in the [facility] Emergency Department was greater than 2 hours. transferring to other facilityPatient's length of stay extended due to 13:34 Patient left the ED. [facility] 13:35 Transferred by ground EMS X-rays sent w/ patient. Note: [place] [id number] 13:36 Condition: stable [facility] Signatures: Dispatcher [employer] EDMS Corinne Alfred RN RN Baljeet Betancourt NP MANAGER [employer] pm1 Yudelka Vergara [facility] Corrections: (The following items were deleted from the chart) 11:39 10:51 CORONAVIRUS+ drawn and sent. [facility] EDWI
--- NOTE | 2021-08-04 10:18 | EDPHYS ---
Physician Documentation [facility] Name: Lydia Hanson Age: 61 yrs Sex: Female : 1960 Arrival Date: 08/04/2021 Time: 07:37 Bed 27 Private MD: ED Physician Cooper Luong HPI: 08/04 07:51 This 61 yrs old Female presents to ER via EMS with complaints of Fall Injury, pm1 Hip Pain. 07:51 Details of fall: The patient fell from an upright position, while walking, and struck a pm1 concrete surface. Onset: The symptoms/episode began/occurred just prior to arrival. Associated injuries: The patient sustained right hip . Severity of symptoms: in the emergency department the symptoms are unchanged. The patient has been recently seen at the [facility] Emergency Department, yesterday, dizziness and weakness, discharged home with dx of UTI, dehydration and prescribed antibiotics, vantin. Patient presenting to ER today with complaints of right hip pain status post fall while using walker in the garage. Patient reports losing her balance and falling backwards. She landed on her right hip area. No headache, head injury, neck pain, LOC. Historical: - Allergies: 07:54 Adhesives; ss 07:54 CEPHALOSPORINS; ss 07:54 Codeine; ss 07:54 Latex, Natural Rubber; ss 07:54 PENICILLINS; ss 07:54 TETRACYCLINES; ss - PMHx: 07:54 CKD; Depression; Hyperlipidemia; Hypertension; L hip replacement; narcolepsy; Sleep ss Apnea; Thyroid problem; V-tach; - Immunization history:: Adult Immunizations up to date. - Immunization history: Last tetanus immunization: - up to date. - Social history:: Smoking status: Patient denies any tobacco usage or history of. Patient/guardian denies using alcohol, street drugs, tobacco products. - Code Status:: Full code. ROS: 07:59 Constitutional: Negative for fever, chills, and weight loss, Neck: Negative for injury, pm1 pain, and swelling, Cardiovascular: Negative for chest pain, palpitations, and edema, Respiratory: Negative for shortness of breath, cough, wheezing, and pleuritic chest pain, Abdomen/GI: Negative for abdominal pain, nausea, vomiting, diarrhea, and constipation, Back: Negative for injury and pain. 07:59 Skin: Negative for injury, rash, and discoloration, Neuro: Negative for headache, weakness, numbness, tingling, and seizure. 07:59 MS/extremity: Positive for pain, of the lateral aspect of right thigh and right hip. 07:59 All other systems are negative. Exam: 07:59 Constitutional: This is a well developed, well nourished patient who is awake, alert, pm1 and in no acute distress. Head/Face: Normocephalic, atraumatic, nontender Chest/axilla: Normal chest wall appearance and motion. Nontender with no deformity. No lesions are appreciated. 07:59 Skin: Warm, dry with normal turgor. Normal color with no rashes, no lesions, and no evidence of cellulitis. 07:59 Neck: External neck: no acute changes, C-spine: vertebral tenderness, is not appreciated, ROM/movement: no acute changes. 07:59 Cardiovascular: Rate: normal, Rhythm: regular, Pulses: no pulse deficits are appreciated, Heart sounds: normal, Edema: pedal edema, that is moderate, bilaterallu. 07:59 Respiratory: Exam negative for acute changes, the patient does not display signs of respiratory distress, Respirations: normal, Breath sounds: are clear throughout. 07:59 Abdomen/GI: Inspection: obese Palpation: abdomen is soft and non-tender, in all quadrants. 07:59 Musculoskeletal/extremity: Extremities: grossly normal except: noted in the right hip pm1 and right distal lateral femur tenderness: There is no evidence of laceration, puncture, the right foot Sensation intact. 07:59 Neuro: Exam negative for acute changes, Orientation: is normal, Mentation: is normal, Sensation: is normal, no obvious gross deficits. Vital Signs: 07:59 BP 123 / 62; Pulse 83 MON; Resp 18 S; Temp 98.3; Pulse Ox 100% on R/A; Weight 92.99 kg; 1 Height 5 ft. 7 in. (170.18 cm); Pain 10/10; 09:09 BP 115 / 61; Pulse 80; Resp 20; Pulse Ox 95% ; kh1 12:05 BP 121 / 64; Pulse 84; Resp 18; Temp 98.1; Pulse Ox 92% on R/A; kh1 07:59 Body Mass Index 32.11 (92.99 kg, 170.18 cm) kh1 Arlet Coma Score: 07:59 Eye Response: spontaneous(4). Verbal Response: oriented(5). Motor Response: obeys kh1 commands(6). Total: 15. Trauma Score (Adult): 07:59 Eye Response: spontaneous(1); Verbal Response: oriented(1); Motor Response: obeys kh1 commands(2); Systolic BP: > 89 mm Hg(4); Respiratory Rate: 10 to 29 per min(4); Braithwaite Score: 15; Trauma Score: 12 Procedures: 09:50 Performed Martinez's Traction placed to right leg. Patient tolerated procedure well and pm1 reported some relief in pain. MDM: 07:44 Patient medically screened. pm1 07:47 ED course: Patient and refusing blood work since she was discharge here from pm1 the hospital yesterday at approximately 11:30 PM. 08:35 Counseling: I had a detailed discussion with the patient and/or guardian regarding: the pm1 historical points, exam findings, and any diagnostic results supporting the discharge/admit diagnosis, radiology results, the need to transfer to another facility, for higher level of care, Patient and family request transfer to her orthopedic surgeon, Yahir Hendrix MD. Right Hip surgery 3 weeks ago. 08:45 ED course: Discussed case with attending physician, Dr. Leyva. Recommended martinez's pm1 traction and transfer to her orthopedic surgeon. 08:45 ED course: Patient and family continued refusal of blood work. Discussed with attending pm1 MD. Prior labs reviewed with MD. Since patient with recent labs drawn in ER should be sufficient for transfer. 09:11 Data reviewed: vital signs. Data interpreted: Pulse oximetry: on room air is 100 %. pm1 Interpretation: normal. 09:20 ED course: Discuss case with Enid RN, RN for Dr. Hendrix, and sent xray results. She pm1 will contact Dr. Hendrix and call us back. 10:09 ED course: Enid called back and has contacted Dr. Hendrix. Patient to be accepted to [address] We will need to contact transfer center and fax patient information. 08/04 08:33 Order name: CMP pm1 08/04 07:47 Order name: Hip Right 2 View XRAY; Complete Time: 10:17 pm1 08/04 07:47 Order name: Knee Right 3 View XRAY; Complete Time: 10:17 pm1 08/04 12:34 Order name: SARS-COV-2 RT PCR; Complete Time: 12:59 EDMS 08/04 08:33 Order name: EKG; Complete Time: 08:33 pm1 08/04 08:45 Order name: Pelvis XRAY; Complete Time: 09:50 pm1 08/04 07:47 Order name: IV Saline Lock pm1 08/04 08:33 Order name: EKG - Nurse/Tech; Complete Time: 08:50 pm1 08/04 08:45 Order name: Traction Splint-Apply; Complete Time: 11:20 pm1 08/04 08:46 Order name: NPO; Complete Time: 09:17 pm1 Administered Medications: 08:15 Drug: Zofran (Ondansetron) 4 mg Route: IVP; [facility] 08:35 Drug: morphine 4 mg Route: IVP; [facility]: PICC; [facility] 09:38 Drug: morphine 4 mg Route: IVP; Site: PICC; [facility] 12:50 Drug: morphine 4 mg Route: IVP; Site: PICC; [facility] 12:50 Drug: NS 0.9% 1000 ml Route: IV; Rate: 100 ml/hr; Site: PICC; [facility] hospital 12:50 Drug: Zofran (Ondansetron) 4 mg Route: IVP; Site: PICC; [facility] hospital Disposition: 17:42 Co-signature as Attending Physician, Cooper Luong MD PA/SUPERVISOR [employer]'s history reviewed, ma2 patient interviewed, and examined. I agree with assessment and care plan and confirm the diagnosis (es) above. Disposition Summary: 08/04/21 10:17 Transfer Ordered Transfer Location: Other Acute Care Facility pm1 Reason: Higher level of care pm1 Condition: Stable pm1 Problem: new pm1 Symptoms: have improved pm1 Accepting Physician: Dr. Hendrix(08/04/21 13:34) greg1 Diagnosis - Closed oblique fracture of right femur pm1 Forms: - Medication Reconciliation Form pm1 - SBAR form pm1 Signatures: Dispatcher [employer] EDMS Corinne Alfred RN RN Baljeet Betancourt, SUPERVISOR [employer]AD[employer] SUPERVISOR [employer] pm1 Cooper Luong MD MD ma2 [facility] Corrections: (The following items were deleted from the chart) 11:39 09:40 CORONAVIRUS+MR.LAB.SPENCER ordered. EDMS EDMS 13:12 08:33 CBC+H.LAB.SPENCER ordered. EDMS EDMS 13:34 10:17 Dr. Hendrix pm1 kh1
[2021-08-04] MEDS ORDERED: NA CHLORIDE 0.9% 1,000 ML ONE (13:30)
[2021-08-04 13:57] VITALS: BP 121/64; TEMP 98.1; O2SAT 92
== END 2021-08-04 13:34 ==
LOC: ER 07:36
DX: S72.91XA Unspecified fracture of right femur, initial encounter for closed fracture (principal); W18.30XA Fall on same level, unspecified, initial encounter; Y93.9 Activity, unspecified; Y92.9 Unspecified place or not applicable; Z88.0 Allergy status to penicillin; Z88.6 Allergy status to analgesic agent; Z91.040 Latex allergy status
CPT/HCPCS: 93005; 72170; 73502; 73562; 96375; 96374; 99285; U0003; J7030; J2405 ×2

== ENCOUNTER 2022-02-09 15:30 | Emergency (ER) | payer BC, OTHER ==
--- OUTSIDE RECORDS SUMMARY | 2022-02-09 15:38 | XMS REPORT | Continuity of Care Document ---
:1960 Author Organization [facility] t Address [address] [place] [address] Dr. Lozano [address] [place] [address] Care Team Providers Name Role Phone Gio Garcia Primary Care Physician FRANCOIS Attending Clinician Unavailable Simeon Attending Clinician Unavailable Abbie Epperson Attending Clinician Unavailable Ag CASTRO Attending Clinician Unavailable Crystal Langford MD. Attending Clinician Elvin Epperson MD Attending Clinician Lina Oneal Attending Clinician Helga Burks MD Attending Clinician Romana CASTRO Attending Clinician Unavailable Gabriele Escobar MD Attending Clinician Kristian SCHMIDT Attending Clinician ADULT Attending Clinician Unavailable Vasyl Bliss Attending Clinician Unavailable Chilango Antony MD Attending Clinician Monika Gamboa Attending Clinician Jena SCHMIDT Attending Clinician Provider Attending Clinician Unavailable Lab, Fam Pob I Attending Clinician Unavailable Andrea FIELD MARKETING DIRECTOR Attending Clinician GREEN Attending Clinician Unavailable Doctor Unassigned, Name Attending Clinician Unavailable HELOUANN Attending Clinician Unavailable YESY Attending Clinician Unavailable JACQUELIN Attending Clinician Unavailable Simeon Admitting Clinician Unavailable Abbie Epperson Admitting Clinician Unavailable ANASTASIYA Admitting Clinician Unavailable UNDEFINED Admitting Clinician Unavailable Payers Payer Name Policy Type Policy Number Effective Date Expiration Date Janis keenan BCBSTX PPO [id number] 2016 00:00:00 Problems Condition Condition Condition Status Onset Resolution Last Treating Co mments Source Name Details Category Date Date Treatment Clinician Date Periprosth Periprosth Disease Active M ethodi etic etic 08-06 st fracture fracture 00:00: Hospit a of shaft of shaft 00 l of femur of femur CAD in CAD in Disease Active Methodi iroquois iroquois 04-24 st artery artery 00:00: Hospita 00 l Angina Angina Disease Active Overview: Method i pectoris pectoris 08-[address] 00:00: g of this Hospita 00 note l might be different from the original. Added automatic ally from request for surgery [id number] Palpitatio Palpitatio Disease Active M ethodi ns ns 07-28 st 00:00: Hospita 00 l SOB SOB Disease Active Methodi (shortness (shortness 02-14 st of breath) of breath) 00:00: Ho spita 00 l Tachycardi Tachycardi Disease Active M ethodi a a 01-22 00:00: Hospita 00 l Disorder Disorder Disease Active Metho di of liver of liver 01-22 00:00: Hospita 00 l Internal Internal Disease Active Metho di hemorrhoid hemorrhoid 03-08 st s s 00:00: Hospita 00 l Dysplasia Dysplasia Disease Active Overview: Methodi of anus of anus 03-[address] 00:00: g of this Hospita 00 note l might be different from the original. 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 Depressmichele n for most of her life, initially diagnosed in 1988recur terra in 2008 2 prior suicide attempts (1984 and 2008)Dr Sherine Umaña therapist Dr Corrina Brown LILIA on LILIA on Disease Active Methodi CPAP CPAP 03-08 00:00: Hospita 00 l Hypersomno Hypersomno Disease Active M ethodi lence lence 03-08 00:00: Hospita 00 l Bronchospa Bronchospa Disease Active Overview : Methodi sm sm 03-[address] 00:00: g of this Hospita 00 note l might be different from the original. About 6 months ago when she has an infection s bronchiti s; she was dx with "asthma" and was given spiriva and singulair , no pft's done. PTSD PTSD Disease Active Methodi (post-trau (post-trau 03-08 matic matic 00:00: Hospita stress stress 00 l disorder) disorder) HLD HLD Disease Active Methodi (hyperlipi (hyperlipi 03-08 demia) demia) 00:00: Hospita 00 l Hypertensi Hypertensi Disease Active M ethodi on on 03-02 00:00: Hospita 00 l Hypothyroi Hypothyroi Disease Active M ethodi dism dism 03-02 00:00: Hospita 00 l History of History of Problem Resolve Univers [...] hyperthyro hyperthyro d it y of idism idi [place] [facility] History of History of [...] psychiatri d it y of c c [place] treatment treatment Phys ici ans History of History of Problem Resolve Univers Skin 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 Carlos s face face Physici ans History of [...] Univers (chronic (chronic ity of kidney kidney [place] disease), disease), Phys ici stage III stage III ans 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 infection [facility] s Physici ans History of History of Problem Resolve Univers breast breast d ity of lump lump [place] [facility] History of History of Problem Active U nivers DVT of DVT of ity of lower lower [place] extremity extremity Phys ici ans History of [...] [place] [facility] GERD GERD Disease Active Methodi (gastroeso (gastroeso st phageal phageal Hospita reflux reflux l disease) disease) Allergies, Adverse Reactions, Alerts Allergy Allergy Status Severity Reaction(s) Onset Inactive Treating Comm ents Source Name Type Date Date Clinician Penicill DA Active SV [facility] ins 8 [facility] 00:[facility]: [facility] [place] Cephalos DA Active SV [facility] porins 07-09 [facility] 00:[facility]: [facility] [place] codeine DA Active SV [facility] 830 [facility] 00[facility]00: [facility] [place] tetracyc DA Active SV 2021-0 [facility] line 8-30 [facility] 00:00: [facility]ospita 00 l [facility] [place] adhesive DA Active SV 1-0 H[facility] tape 8-30 [facility] 00:00: [facility]ospita 00 [facility] [place] latex DA Active MO 2021-0 [facility] 8-30 [facility] 00:00: [facility] 00 [facility] [place] Penicill DA Active SV RASH 1-0 [facility] ins 8-30 [facility] 00:00: [facility]ospita 00 [facility] [place] Cephalos DA Active SV ANAPHYLAXIS 1-0 H[facility] porins 8-30 [facility] 00:00: [facility]ospita 00 l [facility] [place] codeine DA Active SV ITCHING 1-0 HCA 8-30 [facility] 00:00: [facility]ita 00 [facility] [place] tetracyc DA Active SV ANAPHYLAXIS 1-0 H[facility] line 8-30 Woman[facility] 00:00: [facility]ospita 00 l of [place] adhesive DA Active SV RASH,BLISTER 1-0 HC A tape S 8-30 Woman[facility] 00:00: [facility]ospita 00 l of [place] latex DA Active MO BLISTERING; 1-0 HCA RASH 8-30 [facility] 00:00: [facility]ita 00 [facility] [place] STEROID DA Active SV DEPRESSION 1-0 HCA 8-26 [facility] 00:00: [facility]ospita 00 [facility] [place] Penicill DA Active SV 1-0 H[facility] ins 7-12 Clear 00:00: Saleem 00 [facility] Cephalos DA Active SV 1-0 HCA porins 7-12 Clear 00:00: Saleem 00 [facility] codeine DA Active SV 1-0 HCA 7-12 Clear 00:00: Saleem 00 [facility] tetracyc DA Active SV 1-0 HCA line 7-12 Clear 00:00: Saleem 00 [facility] adhesive DA Active SV 1-0 HCA tape 7-12 Clear 00:00: Saleem 00 [facility] Penicill DA Active SV RASH 1-0 H[facility] ins 7-12 Clear 00:00: Saleem 00 [facility] Cephalos DA Active SV ANAPHYLAXIS 1-0 HCA porins 7-12 Clear 00:00: Saleem 00 [facility] codeine DA Active SV ITCHING 1-0 HCA 7-12 Clear 00:00: Saleem 00 [facility] tetracyc DA Active SV ANAPHYLAXIS 1-0 HCA line 7-12 Clear 00:00: Saleem 00 [facility] adhesive DA Active SV RASH,BLISTER 2020-0 HC A tape S 7-12 Clear 00:00: [facility] adhesive DA Active SV 2020-0 HCA tape 6-18 Clear 00:00: [facility] STEROID DA Active SV MENTAL 2020-0 [facility] ISSUES 6-18 Clear 00:00: [facility] adhesive DA Active SV RASH,BLISTER 2020-0 HC A tape S 6-18 Clear 00:00: [facility] Penicill DA Active SV 2020-0 [facility] ins 5-06 Clear 00:00: [facility] Cephalos DA Active SV 2020-0 [facility] porins 5-06 Clear 00:00: [facility] codeine DA Active SV 2020-0 HCA 5-06 Clear 00:00: [facility] tetracyc DA Active SV 2020-0 H[facility] line 5-06 Clear 00:00: [facility] latex DA Active MO 2020-0 HCA 5-06 Clear 00:00: [facility] Penicill DA Active SV RASH 2020-0 [facility] ins 5-06 Clear 00:00: [facility] Cephalos DA Active SV ANAPHYLAXIS 2020-0 HCA porins 5-06 Clear 00:00: [facility] codeine DA Active SV ITCHING 2020-0 HCA 5-06 Clear 00:00: [facility] tetracyc DA Active SV ANAPHYLAXIS 2020-0 HCA line 5-06 Clear 00:00: [facility] latex DA Active MO BLISTERING; 2020-0 HCA RASH 5-06 Clear 00:00: [facility] Cephalos DA Active SV 2020-0 HCA porins 4-30 Clear 00:00: [facility] Cephalos DA Active SV ANAPHYLAXIS 2020-0 HCA porins 4-30 Clear 00:00: [facility] tetracyc DA Active SV ANAPHYLAXIS 2020-0 HCA line 4-30 Clear 00:00: [facility] latex DA Active MO BLISTERING; 2020-0 H[facility] RASH 4-30 Clear 00:00: [facility] tetracyc DA Active SV 2021-0 HCA line 4-30 Clear 00:00: Sale[facility] latex DA Active MO HCA 4-30 Clear 00:00: [facility] Latex Propensi Active Other (See blisters Me thodi ty to Comments) 3-15 st adverse 00:00: Hospita reaction 00 l s to drug Eszopicl Propensi Active Other (See Metallic Methodi one ty to Comments) 3-[address] adverse 00:00: mouth, Hospita reaction 00 tachycard l s to ia drug Cephalos Propensi Active Anaphylaxis Most M ethodi porins ty to 03-[address] adverse 00:00: Keflex Hospita reaction 00 500mg per l s to patient. drug Facial rash, hives, admitted to ICU Codeine Propensi Active Itching Method i ty to 03-02 st adverse 00:00: Hospita reaction 00 l s to drug Penicill Propensi Active Rash Method i ins ty to 03-02 adverse 00:00: Hospita reaction 00 l s to drug Tetracyc Propensi Active Anaphylaxis M ethodi line ty to 03-02 adverse 00:00: Hospita reaction 00 l s to drug Penicill DA Active SV [facility] ins 9-27 Clear 00:00: [facility] Penicill DA Active SV RASH HCA ins 9-27 Clear 00:00: [facility] codeine DA Active SV ITCHING HCA 9-27 Clear 00:00: [facility] codeine DA Active SV HCA 9-27 Clear 00:00: Saleem [facility] NO KNOWN Drug Active Univers ALLERGIE Class ity of S [facility] Cephalos Allergy Active Univers porins to [...] history of Univers ity of deep venous [place] [facility] thrombosis [facility] father Cancer [facility] M[facility] Natural mother Depression [facility] Paternal COPD [facility]ension [facility] Social History Social Habit Start Date Stop Date Quantity Comments Source Exposure to Not sure [facility] of SARS-CoV-2 [place] [facility] (event) Branch History SDOH Buddhism Alcohol Frequency Hospita l History SDOH [facility] Alcohol Std Hospital Drinks History SDOH [facility] Alcohol Binge Hospital Alcohol intake 2021-08-24 2021-08-24 Current drinker Metho dist 00:00:00 00:00:00 of [facility] (finding) Alcohol Comment 2021-08-06 2021-08-06 pt states about 4 [facility] 00:00:00 00:00:00 drinks a month Hospital Tobacco use and 2016-02-12 2016-02-12 Smokeless tobacco [facility] exposure 00:00:00 00:00:00 non-user Hospital Sex Assigned At [birth year] [facility] 00:00:00 00:00:00 Hospital Smoking Status Start Date Stop Date Source Tobacco smoking consumption unknown [facility] Never smoked tobacco [facility] H ospital Medications Ordered Filled Start Stop Current Ordering Indication Dosage Frequency Signature Comments Components Source Medication Medication Date Date Medication? Clinician (SIG) Name Name zolpidem 2020-11 No 10mg QD Take 10 mg Me thodi (AMBIEN) 10 0-07 10-[address] mg tablet 15:08: 00:00 nightly. [facility] 58 :00 zolpidem l 10 mg tablet dexmethylph 2020-11 No 40mg QD Take 40 mg Methodi enidate XR 0-07 10-[address] (FOCALIN 15:08: 00:00 every Hospita XR) 40 mg 58 :00 morning. l 24 hr capsule SODIUM 2020-11- No Take by Methodi OXYBATE 0-07 10-[address] (XYREM 15:08: 00:00 grams at Hospit a ORAL) 58 :00 2100 and l 4.5 grams at 0100 montelukast 2020-11 Yes 10mg QD Take 10 mg Methodi (SINGULAIR) 0-[address] 10 mg 15:08: every Hospita tablet 53 evening. l ARIPiprazol 2020-11 Yes 15mg QD Take 15 mg Methodi e (ABILIFY) 0-[address] 15 MG 15:08: daily. Hospita tablet 53 l clonAZEPAM 2020-11 Yes 1mg Q.5D Take 1 mg Me thodi (KlonoPIN) 0-[address] 1 MG tablet 15:08: (two) Hospi ta 53 times a l day as needed for anxiety. hydroxychlo 2020-11 Yes 200mg QD Take 200 M ethodi roquine 0-[address] (PLAQUENIL) 15:08: mouth Hospi ta 200 mg 53 daily. l tablet omeprazole 2020-11 Yes 40mg QD Take 40 mg M ethodi (PriLOSEC) 0-[address] 40 MG 15:08: daily. Hospita capsule 53 l potassium 2020-11 Yes 10meq Q.5D Take 10 Meth анна chloride 0-[address] (KLOR-CON) 15:08: mouth 2 Hosp symone 10 MEQ CR 53 (two) l tablet times a day. ondansetron 2020-11 Yes 4mg Q8H Take 4 mg M ethodi ODT 0-[address] (ZOFRAN-ODT 15:08: every 8 [facility] ) 4 MG 53 (eight) l disintegrat hours as ing tablet needed for nausea or vomiting. albuterol 2020-11 Yes 2{puff} Q6H Inhale 2 M ethodi (Ventolin 0-[address] HFA) 90 15:08: every 6 Hospita mcg/actuati 53 (six) l on inhaler hours as needed for wheezing. salmeteroL 2020-11 Yes 1{puff} Q.5D Inhale 1 Methodi (Serevent 0-[address] Diskus) 50 00:00: (two) Hospit a mcg/dose 00 times a l diskus day. inhaler ipratropium 2020-11 Yes [id number] .5mg Q.[id number] Take 2.5 Methodi (ATROVENT) 0 [id number] mL (0.[address] 0.02 % 00:00: 3D total) by Hospit a nebulizer 00 nebulizati l solution on 3 (three) times a day. budesonide 2020-11 No [id number] .5mg QD Take 2 mL Methodi (PULMICORT) 09-16 (0.[address] 0.5 mg/2 mL 00:00: 04:59 total) by Hospita nebulizer 00 :00 nebulizati l solution on once daily for 30 days. ondansetron 2020-11 No 4mg Q8H Take 1 Met hodi ODT 09-16 tablet (4 st (ZOFRAN-ODT 00:00: 04:59 mg total) Hospita ) 4 MG 00 :00 by mouth l disintegrat every 8 ing tablet (eight) hours as needed for nausea or vomiting for up to 30 days. sennosides- 2020-11- No 1{tbl} Q.5D Take 1 M ethodi docusate 09-[address] sodium 00:00: 04:59 mouth 2 Hospita (SENOKOT-S) 00 :00 (two) l 8.6-50 mg times a per tablet day for 30 days. modafiniL 2020-11 No 200mg QD Take 1 Meth анна (PROVIGIL) 009-[address] 200 MG 00:00: 04:59 (200 mg Hospita tablet 00 :00 total) by l mouth daily for 30 days. gabapentin 2020-11- No 100mg Q.5D Take 1 Met hodi (NEURONTIN) 009-[address] 100 mg 00:00: 04:59 (100 mg Hospita capsule 00 :00 total) by l mouth 2 (two) times a day for 30 days. fexofenadin 2020-11- No 60mg Q.5D Take 1 Met hodi e (MARTHA) 009-16 tablet (60 s t 60 MG 00:00: 04:59 mg total) Hospit a tablet 00 :00 by mouth 2 l (two) times a day as needed (itching) for up to 30 days. aztreonam 2020-11 No 500mg Q8H Infuse 500 Methodi 500 mg in 0 10-[address] dextrose 5% 00:00: 04:59 venous [facility] 50 mL IVPB 00 :00 catheter l every 8 (eight) hours for 40 doses. zolpidem 2020-11 No 5mg QD Take 1 Method i (AMBIEN) 5 -18 tablet (5 st MG tablet 00:00: 04:59 mg total) Ho spita 00 :00 by mouth l nightly as needed for sleep for up to 10 days. HYDROcodone 2020-11 No [id number] 1{tbl} Q4H Take 1 Methodi -acetaminop 0-[address] hen (NORCO) 00:00: 04:59 mouth Hosp symone 10-325 mg 00 :00 every 4 l per tablet (four) hours as needed for severe pain for up to 10 days .acute pain. Max Daily Amount: 6 tablets clindamycin 2020-11- No 300mg Q.[id number] Take 1 Methodi (CLEOCIN) 0-[id number] 300 MG 00:00: 04:59 3D (300 mg Hospita capsule 00 :00 total) by l mouth 3 (three) times a day for 10 days. vancomycin 2020-11- No 1000mg Q24H Infuse Me thodi 1,000 mg in 0 10-14 1,[address] sodium 00:00: 04:59 into a Hospita chloride 00 :00 venous l 0.9% 250 mL catheter IVPB daily for 6 days. tiotropium 2020- No 1{capsu Q24H Place 1 Methodi (SPIRIVA) 04-24 06-15 le} capsule st 18 mcg per 09:01: 00:00 into Hospit a inhalation 43 :00 inhaler l capsule and inhale daily as needed. furosemide 2020- No 80mg Q.5D Take 80 mg Methodi (LASIX) 80 6-15 06-[address] mg tablet 09:01: 00:00 (two) Hospit a 43 :00 times a l day. gabapentin 2020- No [id number] 300mg Q.5D Take 1 Methodi (NEURONTIN) 01-[address] 300 mg 00:00: 04:59 (300 mg Hospita capsule 00 :00 total) by l mouth 2 (two) times a day for 30 days. meloxicam 2020- No 15mg QD Take 1 Metho di (MOBIC) 15 01-22 tablet (15 st mg tablet 00:00: 04:59 mg total) Ho spita 00 :00 by mouth l daily for 30 days. Start [place] [id number] 25mg Q6H Take 0.5 Met hodi (ULTRAM) 50 01-[address] mg tablet 00:00: 04:59 (25 mg Hospi ta 00 :00 total) by l mouth every 6 (six) hours as needed for moderate pain for up to 5 days .acute pain. methylPREDN 2020- No follow Met hodi ISolone 01-[address] (MEDROL 00:00: 04:59 directions [facility] DOSEPAK) 4 00 :00 l mg tablet Nystatin-Tr Nystatin-Tr Yes SUBHRATHA APPLY [facility] YESY SPARINGLY ity of 142843-0.1 822024-5.1 00:00: M.D. TO [place] UNIT/GM-% UNIT/GM-% 00 AFFECTED P hysici External External AREA(S) ans Cream Cream TWICE DAILY X 10 DAYS duloxetine 2017-11 Yes 120mg QD Take 120 Me thodi HCl 0-[address] (DULOXETINE 00:00: mouth Hospi ta ORAL) 00 daily. l CRESTOR 5 Yes 5mg QD Take 5 mg Met hodi mg tablet 6-[address] 00:00: daily. Hospita 00 l levothyroxi Yes 50ug QD Take 50 Met hodi ne 6-[address] (SYNTHROID, 00:00: mouth Hospi ta LEVOXYL) 50 00 daily. l mcg tablet RESTASIS Yes 1[drp] Q.5D Administer M ethodi MULTIDOSE 6-[address] 0.05 % 00:00: both eyes Hospit a drops 00 2 (two) l times a day. buPROPion Yes 150mg QD Take 150 Met hodi XL 6-[address] (WELLBUTRIN 00:00: mouth Hospi ta XL) 150 MG 00 every l 24 hr morning. tablet prazosin No 3mg QD Take 3 mg Met hodi (MINIPRESS) 03-11-[address] 1 MG 00:00: 00:00 nightly. Hospita capsule 00 :00 3x nightly l BYSTOLIC 10 No 10mg QD Take 10 mg Methodi mg tablet 03-[address] 00:00: 00:00 daily. Hospita 00 :00 l ursodiol Yes 300mg Q.5D Take 300 Meth анна (ACTIGALL) 4-[address] 300 mg 00:00: mouth 2 Hospita capsule 00 (two) l times a day. Prazosin Prazosin Yes Univers HCl - 1 [...] Yes Uni vers TABS TABS [facility] [place] [facility] Co Q 10 Co Q 10 Yes Univers CAPS CAPS [facility] [place] [facility] Restasis Restasis Yes Univers EMUL EMUL [facility] [place] [facility] Crestor 5 Crestor 5 Yes Unive rs MG Oral MG Oral ity of Tablet Tablet [place] [facility] Bystolic 10 Bystolic 10 Yes [...] Name Observation Time Observation Value Comments Source Heart rate 2021-08-16 89 /min [facility] 18:49:00 [facility] Respiratory rate 2021-08-16 18 /min [facility] 18:49:00 [facility] Oxygen saturation 2021-08-16 93 /min [facility] in Arterial blood 18:39:00 Hospital by Pulse oximetry Systolic blood 2021-08-16 132 mm[Hg] [facility] pressure 17:02:17 [facility] Diastolic blood 2021-08-16 63 mm[Hg] [facility] pressure 17:02:17 Hospital Body temperature 2021-08-16 36.06 Kaylynn [facility] 17:02:17 [facility] Body weight 2021-08-15 91 kg [facility] 11:00:00 Hospital BMI 2021-08-15 31.42 kg/m2 [facility] 11:00:00 Hospital Body height 2021-04-24 170.2 cm [facility] 14:01:00 [facility] Systolic blood 2021-03-13 118 mm[Hg] University of pressure 13:26:00 [place] [facility] Diastolic blood 2021-03-13 75 mm[Hg] University o f pressure 13:26:00 [place] [facility] Body height 2021-03-13 67 [in_us] [facility] 13:26:00 [place] [facility] Weight 2021-03-13 92.08 kg [facility] 13:26:00 [place] [facility] Body mass index 2021-03-13 31.79 kg/m2 University o f (BMI) [Ratio] 13:26:00 [place] [facility] Body temperature 2021-03-13 97.7 [degF] [facility] 13:26:00 [place] [facility] Heart Rate 2021-03-13 82 /min University 13::00 [place] [facility] Respiratory rate 2021-03-13 18 /min [facility] 13:26:00 [place] [facility] Systolic blood 2020-09-25 127 mm[Hg] Location: HÉCTOR; [facility] 09:23:00 Position: [place] [facility] Sitting Diastolic blood 2020-09-25 80 mm[Hg] Location: JACK; [facility] 09:23:00 Position: [place] [facility] Sitting Body height 2020-09-25 67 [in_us] [facility] 09:23:00 [place] [facility] Weight 2020-09-25 218.375 [lb_av] University o f 09:23:00 [place] [facility] Body mass index 2020-09-25 34.2 kg/m2 University o f (BMI) [Ratio] 09:23:00 [place] [facility] Body temperature 2020-09-25 96.3 [degF] Method: [facility] 09:23:00 Temporal [place] [facility] Systolic blood 2020-04-14 138 mm[Hg] [facility]: [place] [facility] Diastolic blood 2020-04-14 77 mm[Hg] [facility] Position: [place] [facility] S[facility] Body height 2020-04-14 67 [in_us] [facility] 08:32:00 [place] [facility] Weight 2020-04-14 200 [lb_av] [facility] 08:32:00 [place] [facility] Body mass index 2020-04-14 31.32 kg/m2 University o f (BMI) [Ratio] 08:32:00 [place] [facility] Body temperature 2020-04-14 97.8 [degF] Method: [facility] 08:32:00 Temporal [place] [facility] Heart Rate 2020-04-14 70 /min [facility] 08:32:00 [place] [facility] BP Systolic 2019-08-18 136 mm[Hg] [facility] Position: [place] [facility] S[facility] BP Diastolic 2019-08-18 80 mm[Hg] [facility] Position: [place] [facility] S[facility] Height 2019-08-18 67 [in_us] University 15:52:00 [place] [facility] Weight 2019-08-18 216.375 [lb_av] University o f 15:52:00 [place] [facility] Body Mass Index 2019-08-18 33.89 kg/m2 University o f Calculated 15:52:00 [place] [facility] Temperature 2019-08-18 98.7 [degF] University 15:52:00 [place] [facility] BP Systolic 2019-08-09 119 mm[Hg] [facility] Position: [place] [facility] Sitting BP Diastolic 2019-08-09 74 mm[Hg] [facility] Position: [place] [facility] Sitting Height 2019-08-09 67 [in_us] University 10:10:00 [place] [facility] Weight 2019-08-09 214.375 [lb_av] University o 10:10:00 [place] [facility] Body Mass Index 2019-08-09 33.58 kg/m2 University o Calculated 10:10:00 [place] [facility] Procedures Procedure Date / Time Performing Clinician Source Performed CBC WITH PLATELET AND 2021-08-16 10:40:00 Adam Blake [facility] DIFFERENTIAL COMPREHENSIVE METABOLIC 2021-08-16 10:40:00 Adam Blake [facility] PANEL MAGNESIUM LEVEL 2021-08-16 10:40:00 Adam Blake [facility] PHOSPHORUS LEVEL 2021-08-16 10:40:00 Adam Blake [facility] B NATRIURETIC PEPTIDE 2021-08-16 10:40:00 Mayco Langford [facility] ESTIMATED GFR 2021-08-16 10:40:00 Adam Blake [facility] MANUAL DIFFERENTIAL 2021-08-16 10:40:00 Adam Blake [facility] CBC WITH PLATELET AND 2021-08-15 11:36:00 Adam Blake [facility] DIFFERENTIAL COMPREHENSIVE METABOLIC 2021-08-15 11:36:00 Adam Blake [facility] PANEL MAGNESIUM LEVEL 2021-08-15 11:36:00 Adam Blake [facility] PHOSPHORUS LEVEL 2021-08-15 11:36:00 Adam Blake [facility] ESTIMATED GFR 2021-08-15 11:36:00 Adam Blake [facility] MANUAL DIFFERENTIAL 2021-08-15 11:36:00 Adam Blake [facility] COMPREHENSIVE METABOLIC 2021-08-14 14:58:00 Adam Blake [facility] PANEL ESTIMATED GFR 2021-08-14 14:58:00 Adam Blake [facility] CBC WITH PLATELET AND 2021-08-14 09:59:00 OMayco Schroeder [facility] DIFFERENTIAL B NATRIURETIC PEPTIDE 2021-08-14 09:59:00 Mayco Langford [facility] BASIC METABOLIC PANEL 2021-08-14 09:59:00 OMayco Schroeder [facility] ESTIMATED GFR 2021-08-14 09:59:00 Mayco Langford [facility] MANUAL DIFFERENTIAL 2021-08-14 09:59:00 OMayco Schroeder [facility] XR CHEST 1 VW PORTABLE 2021-08-13 19:39:00 [facility] R POC GLUCOSE 2021-08-13 19:08:00 [facility] ARTERIAL BLOOD GAS 2021-08-13 18:38:00 [facility] R HEMOGLOBIN & HEMATOCRIT 2021-08-13 18:38:00 Jeremy Bills [facility] Maximino POC GLUCOSE 2021-08-13 18:08:00 OElda [facility] XR FEMUR 2 VW RIGHT 2021-08-13 17:55:00 [facility] XR PELVIS 1 OR 2 VW 2021-08-13 17:40:00 [facility] SURGICAL PATHOLOGY REQUEST 2021-08-13 17:14:00 O'Corina [facility] POC GLUCOSE 2021-08-13 17:13:00 O'Corina [facility] OR FL > 1 HOUR 2021-08-13 16:07:00 Jonathan Meng spital XR PELVIS 1 OR 2 VW 2021-08-13 16:01:00 [facility] C[facility] 2021-08-13 15:03:00 [facility] SODIUM LEVEL, SYRINGE 2021-08-13 15:03:00 [facility] ARTERIAL BLOOD GAS, 2021-08-13 15:03:00 O'Mayco Arriaga [facility] CORRECTED HEMOGLOBIN, SYRINGE 2021-08-13 15:03:00 O'Mayco Arriaga [facility] POTASSIUM, SYRINGE 2021-08-13 15:03:00 O'Mayco Arriaga [facility] IONIZED CALCIUM, ARTERIAL 2021-08-13 15:03:00 O'Corina [facility] GLUCOSE LEVEL, SYRINGE 2021-08-13 15:03:00 [facility] LEVEL 2021-08-13 15:03:00 O'Corina [facility] TRANSFUSE RED BLOOD CELLS 2021-08-13 15:03:00 Chip Oneal [facility] [employer] CULTURE 2021-08-13 14:50:00 [facility] 2 VW 2021-08-13 14:50:00 [facility] C[facility] 2021-08-13 14:41:00 [facility] 2021-08-13 14:35:00 [facility] 2021-08-13 14:30:00 [facility] ARTERIAL BLOOD GAS, 2021-08-13 14:07:00 O'Mayco Arriaga [facility] CORRECTED SODIUM LEVEL, SYRINGE 2021-08-13 14:07:00 [facility] [place] HEMOGLOBIN, SYRINGE 2021-08-13 14:07:00 O'Mayco Arriaga [facility] POTASSIUM, SYRINGE 2021-08-13 14:07:00 O'Mayco Arriaga [facility] IONIZED CALCIUM, ARTERIAL 2021-08-13 14:07:00 Corina [facility] GLUCOSE LEVEL, SYRINGE 2021-08-13 14:07:00 Mayco Arriaga [facility] MAGNESIUM LEVEL 2021-08-13 14:07:00 [facility] ANAEROBIC CULTURE 2021-08-13 14:03:00 [facility] 2021-08-13 14:03[facility] 2021-08-13 14:03[facility]00 [facility] ST[facility] 2021-08-13 14:03:00 [facility] TISSUE C[facility] 2021-08-13 14:03:00 [facility] ANAEROBIC C[facility] 2021-08-13 13:50:00 [facility] FUN[facility] 2021-08-13 13:50:00 [facility] FUN[facility]US SMEAR 2021-08-13 13:50:00 [facility] ST[facility] 2021-08-13 13:50:00 [facility] TISSUE CULT[facility] 2021-08-13 13:50:00 [facility] ANAEROBIC CULTURE 2021-08-13 13:41:00 [facility] FUN[facility]US [facility] 2021-08-13 13:41:00 [facility] GR[facility] STAIN 2021-08-13 13:41:00 [facility] ST[facility] 2021-08-13 13:41:00 [facility] TISSUE CULTURE 2021-08-13 13:41:00 [facility] ANAEROBIC CULTURE 2021-08-13 13:35:00 [facility] FUNGUS C[facility] 2021-08-13 13:35:00 [facility] GR[facility] STAIN 2021-08-13 13:35:00 [facility] ST[facility] 2021-08-13 13:35:00 [facility] TISSUE CULTURE 2021-08-13 13:35:00 [facility] ANAEROBIC CULTURE 2021-08-13 13:30:00 Zhou, [facility] FUNGUS CULTURE 2021-08-13 13:30:00 Zhou, [facility] GRAM STAIN 2021-08-13 13:30:00 Zhou, [facility] [employer] STAIN 2021-08-13 13:30:00 Zhou, [facility] TISSUE CULTURE 2021-08-13 13:30:00 Zhou, [facility] ARTERIAL BLOOD GAS, 2021-08-13 13:21:00 Mayco Langford [facility] CORRECTED POTASSIUM, SYRINGE 2021-08-13 13:21:00 RaúlCorina [facility] SODIUM LEVEL, SYRINGE 2021-08-13 13:21:00 [facility] [place] IONIZED CALCIUM, ARTERIAL 2021-08-13 13:21:00 Anastasiya [facility] HEMOGLOBIN, SYRINGE 2021-08-13 13:21:00 Mayco Langford [facility] GLUCOSE LEVEL, SYRINGE 2021-08-13 13:21:00 Mayco Langford [facility] ARTERIAL LINE 2021-08-13 13:05:10 [facility] R DC AN ELECTIVE 2021-08-13 13:04:21 [facility] ENDOTRACHEAL AIRWAY R REVISION, ARTHROPLASTY, 2021-08-13 12:19:00 Zhou [facility] HIP CLOSURE, WOUND, LOWER 2021-08-13 12:19:00 Jonathan Meng [facility] EXTREMITY, USING ROTATION FLAP POC GLUCOSE 2021-08-13 11:40:00 O'Corina [facility] HC COMPLETE BLD COUNT 2021-08-13 08:03:00 Raúl'Mayco Arriaga [facility] W/AUTO DIFF XR FEMUR 2 VW RIGHT 2021-08-13 05:48:17 Zhou [facility] XR HIPS BILATERAL AP 2021-08-13 05:47:01 [facility] LATERAL W AP PELVIS TYPE AND SCREEN 2021-08-12 21:57:[address] [facility] PREPARE RBC 2021-08-12 18:37:00 Jeremy Bills ospibernadette [facility] BASIC METABOLIC PANEL 2021-08-12 12:59:00 Yusra [facility] ESTIMATED GFR 2021-08-12 12:59:[address] [facility] B NATRIURETIC PEPTIDE 2021-08-12 10:19:00 [facility] HC COMPLETE BLD COUNT 2021-08-12 10:19:00 [facility] W/AUTO DIFF [facility] BASIC METABOLIC PANEL 2021-08-12 01:21:00 Yusra [facility] ESTIMATED GFR 2021-08-12 01:21:00 [facility] CBC WITH PLATELET AND 2021-08-11 09:08:00 [facility] DIFFERENTIAL [facility] BASIC METABOLIC PANEL 2021-08-11 09:08:00 Mayco Arriaga [facility] B NATRIURETIC PEPTIDE 2021-08-11 09:08:00 [facility] [place] ESTIMATED GFR 2021-08-11 09:08:00 [facility] MAGNESIUM LEVEL 2021-08-11 01:16:00 Jonathan Meng spital BASIC METABOLIC PANEL 2021-08-11 01:16:00 [facility] ESTIMATED GFR 2021-08-11 01:16:00 [facility] CBC WITH PLATELET AND 2021-08-10 09:31:00 Mayco Arriaga [facility] DIFFERENTIAL BASIC METABOLIC PANEL 2021-08-10 09:31:00 [facility] buck [facility] HEPATIC FUNCTION PANEL 2021-08-10 09:31:00 [facility] ESTIMATED GFR 2021-08-10 09:31:00 [facility] MAGNESIUM LEVEL 2021-08-10 04:07:00 Jonathan Meng spital BASIC METABOLIC PANEL 2021-08-10 04:07:00 Jonathan Meng [facility] ESTIMATED GFR 2021-08-10 04:07:00 [facility]ST 1 VW PORTABLE 2021-08-09 17:42:43 [facility] BASIC METABOLIC PANEL 2021-08-09 15:29:00 [facility] MAGNESIUM LEVEL 2021-08-09 15:29:00 Jonathan Meng spital ESTIMATED GFR 2021-08-09 15:29:[address] [facility] CBC WITH PLATELET AND 2021-08-09 08:56:00 [facility] DIFFERENTIAL [facility] CREATINE KINASE, TOTAL 2021-08-09 08:56:00 [facility] Poly COMPREHENSIVE METABOLIC 2021-08-09 08:56:00 [facility] PANEL B NATRIURETIC PEPTIDE 2021-08-09 08:56:00 [facility] [place] ESTIMATED GFR 2021-08-09 08:56:[address] [facility] TROPONIN 2021-08-09 05:22:00 [facility] ANTI-NEUTROPHILIC 2021-08-09 05:22:00 [facility] CYTOPLASMIC ABS PANEL Poly RHEUMATOID FACTOR 2021-08-09 05:22:00 [facility] Poly BASIC METABOLIC PANEL 2021-08-09 01:55:00 [facility] MAGNESIUM LEVEL 2021-08-09 01:55:00 Jonathan Meng Ho spital ESTIMATED GFR 2021-08-09 01:55:[address] [facility] BASIC METABOLIC PANEL 2021-08-08 23:41:00 [facility] MAGNESIUM LEVEL 2021-08-08 23:41:00 Jonathan Meng Buddhism Ho spital TROPONIN 2021-08-08 23:41:00 CalistaFormerly [facility] HIV AG/AB COMBINATION 2021-08-08 23:41:00 Mayra Kellyugo [facility] Poly ESTIMATED GFR 2021-08-08 23:41:00 Mayco Langford [facility] US CAROTID DUPLEX 2021-08-08 21:10:00 Gerardo Rivas [facility] RESPIRATORY PATHOGEN PANEL 2021-08-08 19:41:00 [facility] WITH COVID-19 RT-PCR [facility] VANCOMYCIN LEVEL, TROUGH 2021-08-08 19:36:00 Shannan Escobar [facility] TROPONIN 2021-08-08 19:36:00 Calista [facility] LACTIC ACID LEVEL 2021-08-08 19:36:00 Jose Grigsby [facility] ECG 12-LEAD 2021-08-08 18:54:16 Calista [facility] XR CHEST 1 VW PORTABLE 2021-08-08 16:55:00 Jose Grigsby [facility] ARTERIAL BLOOD GAS 2021-08-08 13:50:00 Anyi Ruby [facility] ECG 12-LEAD 2021-08-08 13:40:55 Calista [facility] RHEUMATOID FACTOR 2021-08-08 13:40:00 Calista [facility] ALY 2021-08-08 13:40:00 Calista [facility] CYCLIC CITRULLINATED 2021-08-08 13:40:00 Jose Grigsby [facility] PEPTIDE AB, IGG [facility] LACTIC ACID LEVEL 2021-08-08 13:37:00 Calista [facility] HEPATIC FUNCTION PANEL 2021-08-08 13:37:00 Jose Grigsby [facility] TROPONIN 2021-08-08 13:37:00 [facility] T4, FREE 2021-08-08 13:37:00 [facility] T3 2021-08-08 13:37:00 [facility] POC GLUCOSE 2021-08-08 13:30:00 Mayco Langford [facility] B NATRIURETIC PEPTIDE 2021-08-08 09:28:00 Macyo Langford [facility] FOLATE LEVEL 2021-08-08 09:28:00 [facility] HEMOGLOBIN A1C 2021-08-08 09:28:00 [facility] VITAMIN B12 LEVEL 2021-08-08 09:28:00 [facility] VITAMIN D 25 HYDROXY LEVEL 2021-08-08 09:28:00 [facility] BASIC METABOLIC PANEL 2021-08-08 09:28:00 [facility] COMPLETE BLD COUNT 2021-08-08 09:28:00 [facility] W/AUTO DIFF [facility] MAGNESIUM LEVEL 2021-08-08 09:28:00 [facility] ESTIMATED GFR 2021-08-08 09:28:00 [facility] POC GLUCOSE 2021-08-08 05:02:[address] [facility] CT LOWER EXTREMITY WO 2021-08-08 01:40:14 Cecilia Robison [facility] CONTRAST RIGHT MAGNESIUM LEVEL 2021-08-08 01:00:00 [facility] BASIC METABOLIC PANEL 2021-08-08 01:00:00 [facility] ESTIMATED GFR 2021-08-08 01:00:00 [facility] US DUPLEX VENOUS LOWER 2021-08-07 19:45:00 Patti Ratliff [facility] EXTREMITY LEFT Amber TTE COMPLETE, W CONTRAST, 2021-08-07 19:19:00 Mayco Langford [facility] W DOPPLER ([id number]) COVID-19 QUALITATIVE 2021-08-07 19:04:00 Unique Burks [facility] RT-PCR Helga CT ANGIOGRAM PE CHEST 2021-08-07 17:34:00 Geetha Ratliff [facility] HC COMPLETE BLD COUNT 2021-08-07 10:35:00 Mayco Langford [facility] W/AUTO DIFF BASIC METABOLIC PANEL 2021-08-07 10:35:00 OMayco Schroeder [facility] B NATRIURETIC PEPTIDE 2021-08-07 10:35:00 Mayco Langford [facility] THYROID STIMULATING 2021-08-07 10:35:00 Mayco Langford [facility] HORMONE TYPE AND SCREEN 2021-08-07 10:35:00 Mayco Langford [facility] ESTIMATED GFR 2021-08-07 10:35:00 Mayco Langford [facility] XR CHEST 1 VW PORTABLE 2021-08-07 06:40:28 Mayco Langford [facility] COVID-19 ANTI-SPIKE IGG 2021-08-07 06:14:00 May[facility] ANTIBODY TITER COVID-19 SEROLOGY PATIENT 2021-08-07 06:14:00 Mayco Langford [facility] SURVEILLANCE CBC WITH PLATELET AND 2021-08-07 06:14:00 Mayco Langford [facility] DIFFERENTIAL PROTHROMBIN TIME WITH INR 2021-08-07 06:14:00 Anastasiya [facility] BASIC METABOLIC PANEL 2021-08-07 06:14:00 Mayco Langford [facility] MAGNESIUM LEVEL 2021-08-07 06:14:00 Mayco Langford [facility] TROPONIN 2021-08-07 06:14:00 Brennon Tate spibernadette Hammer A PHOSPHORUS LEVEL 2021-08-07 06:14:00 Brennon Tate ospital Jose ESTIMATED GFR 2021-08-07 06:14:00 Mayco Langford [facility] ECG 12-LEAD 2021-08-07 05:43:53 Mayco Langford [facility] [id number] 2021-07-10 00:00:00 JONST.02 [facility] [id number] 2021-07-09 00:00:00 MATVA.01 [facility] [id number] 2021-07-09 00:00:00 MATVA.01 [facility] [id number] 2021-07-09 00:00:00 MATVA.01 [facility] [id number] 2021-07-09 00:00:00 AGUSTINA [facility] [id number] 2021-07-09 00:00:00 AGUSTINA [facility] [id number] 2021-05-21 00:00:00 MATVA.01 [facility] US DUPLEX ARTERIAL LOWER 2021-05-15 21:18:49 Royce Escobar [facility] EXTREMITY BILATERAL [id number] 2021-03-15 00:00:00 MATVA.01 [facility] [QL] CBC (INCLUDES 2021-03-13 00:00:00 [facility] DIFF/PLT) Physicians [Q] PATHOLOGIST REVIEW OF 2021-03-13 00:00[facility]00 [facility] [QL] PROTEIN, TOTAL AND 2021-03-13 00:00:00 [facility] PROTEIN ELECTROPHORESIS Physicia ns [QL] IMMUNOGLOBULINS 2021-03-13 00:00:00 [facility] Physicians [QL] BETA 2 GLYCOPROTEIN I 2021-03-13 00:00:00 U [facility] AB (IGG,IGA,IGM) Physicians [QL] CARDIOLIPIN AB 2021-03-13 00:00:00 [facility] (IGA,IGG,IGM) Physicians [Q] MISCELLANEOUS REFERRAL 2021-03-13 00:00:00 U [facility] Physicians [QL] FACTOR V (LEIDEN) 2021-03-13 00:00:00 Unive [facility] MUTATION ANALYSIS Physicians [QL] PROTHROMBIN (FACTOR 2021-03-13 00:00:00 Uni [facility] II) [id number]>A MUTATION Physicians ANALYSIS MRI SPINE EXTERNAL STUDY 2021-01-08 23:18:00 Robert Antony [facility] MA Digital Mammo Screening 2020-09-25 00:00:00 U [facility] Elbert G0202 Physicians [QL] TSH, 3RD GENERATION 2020-04-14 00:00:00 Uni [facility] W/REFLEX TO FT4 Physicians [QL] PROLACTIN 2020-04-14 00:00:00 [facility] MA Digital Mammo DX Elbert w 2020-04-14 00:00:00 U [facility] ed G0204 [place] [id number] 2019-08-23 00:00:00 Unive [facility] Physicians [QLH] CULTURE, URINE, 2019-08-18 00:00[facility] MA Digital Mammo DX Elbert 2019-08-13 00:00:00 Univ [facility] G0204 Physicians US Breast Bilat [id number] 2019-08-13 00:00:00 Unive [facility] Physicians MA Digital Mammo Screening 2019-08-09 00:00:00 U [facility] Elbert G0202 Physicians US Pelvis with Pelvis 2019-08-09 00:00:00 [facility] Transvaginal [id number] Physicians . [facility] - Affirm VPIII 2019-08-09 00:00:00 [facility] (BV Panel) Physicians . [facility] - GC/Chlamydia 2019-08-09 00:00:00 Univ [facility] Physicians History of Total Abdominal Unive [facility] Hysterectomy Physicians History of Breast [facility] augmentation Physicians History of Ostectomy of [facility] calcaneus for spur Physicians History of Tonsillectomy [facility] Physicians History of Adenoidectomy [facility] Physicians History of Cholecystectomy Unive [facility] Physicians History of Shoulder [facility] Physicians History of Complete [facility] Colonoscopy Physicians History of [facility] polypectomy Physicians Plan of Care Planned Activity Planned Date Details Comments Source Future Scheduled 2021-12-12 Hepatitis C screening [facility] Test 09:07:24 (procedure) [code = 299369759] Future Scheduled 2021-12-12 COLONOSCOPY SCREENING [facility] Test 09:07:24 [code = COLONOSCOPY SCREENING] Future Scheduled 2021-12-12 SHINGLES VACCINES Method [facility] Test 09:07:24 (#1) [code = SHINGLES VACCINES (#1)] Future Scheduled 2021-12-12 BREAST CANCER [facility] Test 09:07:24 SCREENING [code = BREAST CANCER SCREENING] Future Scheduled 2021-12-12 INFLUENZA VACCINE Method [facility] Test 09:07:24 [code = INFLUENZA VACCINE] Future Scheduled 2021-12-12 COVID-19 VACCINE (3 - Me [facility] Test 09:07:24 Booster for Moderna series) [code = COVID-19 VACCINE (3 - Booster for Moderna series)] Future Scheduled 2021-12-12 Screening for [facility] Test 09:07:24 malignant neoplasm of cervix (procedure) [code = 255966359] Encounters Start End Encounter Admission Attending Care Care Encounter Source Date/Time Date/Time Type Type Clinicians Facility Department ID 2021-11-16 Outpatient [facility] [id number] [place] 15:45:02 [facility] 2021-08-04 Inpatient SANTI Hendrix, LIA ADMI [id number] [facility] 14:51:00 [facility]ahir [id number] [facility] 2021-03-19 Inpatient SANTI Hendrix, LIA ADMI [id number] [facility] 11:36:00 Yahir [id number] [facility] 2021-03-15 Inpatient SANTI Hendrix, NADINETO SURG [id number] [facility] 11:41:00 Yahir [id number] [facility] 2021-11-20 2021-11-20 Outpatient YANIRA Epperson LABO [id number] [facility] 18:40:00 18:40:00 [place] [id number] [facility] 2021-11-20 2021-11-20 Outpatient LIA Abreu [id number] [facility] 13:14:00 13:14:00 [place] 64 [facility] 2021-11-20 2021-11-20 Outpatient LIA Abreu RADI [id number] [facility] 13:14:00 13:14:00 [place] [id number] [facility] 2021-08-21 2021-08-21 Telephone Akiko Luong 6410 1.2.840. 114 [id number] [place] 00:00:00 00:00:[address] [id number] [facility] [id number] [id number] 2021-08-06 2021-08-16 [facility], 1.2.840.1 [id number] Methodi 20:50:00 15:08:00 Encounter Mayco Keenan 73164.1.[address] 3.430.2.7 Hospit a .3.212468 l .8 2021-08-13 2021-08-13 Surgery Zhou, 1.2.840.1 [id number] Methodi 07:15:00 12:35:00 [place] Elvin 84357.1.[address] 3.430.2.7 Hospit a .3.379768 l .8 2021-08-13 2021-08-13 Anesthesia Deny Oneal 1.2.840. 1 [id number] Methodi 07:20:00 12:14:00 Event Unique Burks 73593.1.[address] 3.430.2.7 Hospit a .3.536838 l .8 2021-08-04 2021-08-06 Inpatient LIA Zheng ADMI [id number] [facility] 14:51:00 20:45:00 Yahir 52 [facility] 2021-08-04 2021-08-04 Outpatient NADINE HendrixWH SIST [id number] [facility] 22:10:00 22:10:00 Yahir [id number] [facility] 2021-07-09 2021-07-13 Inpatient LIA Zheng SURG [id number] [facility] 09:31:00 19:36:00 Yahir [id number] [facility] 2021-07-09 2021-07-13 Inpatient NADINE ZhengTO SURG [id number] [facility] 09:31:00 19:36:00 Yahir 66 [facility] 2021-07-05 2021-07-05 Outpatient NADINE HendrixCL LABO [id number] [facility] 18:29:00 18:29:00 Yahir [id number] [facility] 2021-07-05 2021-07-05 Outpatient NADINE ZhengCL LABO [id number] [facility] 18:29:00 18:29:00 Yahir 89 [facility] 2021-07-05 2021-07-05 Inpatient NADINE ZhengTO SURG [id number] [facility] 08:10:00 08:10:00 Yahir [id number] [facility] 2021-06-27 2021-06-27 Telephone Carroll Avendano 1.2.840.1 [id number] Methodi 00:00:00 00:00:[address] 3.430.2.7 Hospit a .3.836359 l .8 2021-06-22 2021-06-22 Outpatient Simeon HCACL LABO [id number] [facility] 18:09:00 18:09:00 Yahir [id number] [facility] 2021-06-22 2021-06-22 Outpatient NADINE ZhengCL LABO [id number] [facility] 18:09:00 18:09:00 Yahir 07 [facility] 2021-06-22 2021-06-22 Outpatient SANTI Hendrix HCATO RADI [id number] [facility] 10:16:00 10:16:00 Yahir [id number] [facility] 2021-06-22 2021-06-22 Outpatient SANTI Hendrix HCATO RADI [id number] [facility] 10:16:00 10:16:00 Yahir 84 [facility] 2021-05-21 2021-05-22 Inpatient NADINE ZhengTO ADMI [id number] [facility] 10:04:00 13:24:00 Yahir [id number] [facility] 2021-05-17 2021-05-17 Telephone Shawn 1.2.840.1 [id number] Methodi 00:00:00 00:00:00 Royce Suazo [address].1.[address] 3.430.2.7 Hospit a .3.193714 l .8 2021-05-15 2021-05-15 Travel 1.2.840.1 [id number] [id number] Methodi 00:00:00 00:00:[address] 3.430.2.7 0.2.7.3.698 Ho spita .3.267887 084.8 l .8 2021-04-27 2021-04-27 Outpatient YANIRA Hendrix LABO [id number] [facility] 18:17:00 18:17:00 Yahir [id number] [facility] 2021-04-24 2021-04-24 Office Escobar 1.2.840.1 [id number] Methodi 08:55:49 11:43:07 Visit Royce Suazo 69698.1.[address] 3.430.2.7 Hospit a .3.614167 l .8 2021-04-24 2021-04-24 Travel 1.2.840.1 [id number] [id number] Methodi 00:00:00 00:00:[address] 3.430.2.7 0.2.7.3.698 Ho spita .3.035858 084.8 l .8 2021-04-19 2021-04-19 Outpatient LIA Zheng RADI [id number] 2-20 [facility] 10:32:00 10:32:00 Yahir [id number] [place] [facility] [facility] 2021-04-03 2021-04-03 Telephone FERNANDO Townsend [facility] 4 1.2.840.114 1 [id number] 00:00:00 00:00:00 Steve 350.1.13.58 9.2.7.2.686 [id number] 4 2021-04-03 2021-04-03 Telephone Townsend, [facility] 4 1.2.840.114 1 [id number] [place] 00:00:00 00:00:00 Steve 350.1.13.58 He alth 9.2.7.2.686 [id number] 4 2021-03-30 2021-03-30 Travel 1.2.840.1 1.2.608.732 4457 [id number] Methodi 00:00:00 00:00:[address] 3.430.2.7 0.2.7.3.698 Ho spita .3.266895 084.8 l .8 2021-03-13 2021-03-13 Appointmen ADULT, UTP [facility] [id number] [id number] [facility] 13:00:00 13:00:00 t; ADULT, THROMBOSIS Hemophilia ity of THROMBOSIS and [place] [facility] - [facility] 2021-03-09 2021-03-09 Outpatient YANIRA Hendrix LABO [id number] 2-20 [facility] 17:53:00 17:53:00 Yahir [id number] [facility] 2021-03-09 2021-03-09 Outpatient NADINE Hendrix SIST [id number] 2-20 [facility] 13:36:00 13:36:00 Yahir [id number] [facility] 2021-03-06 2021-03-06 Outpatient LIA Bliss RADI [id number] 2-20 [facility] 15:00:00 15:00:00 Felix [id number] [facility] 2021-01-26 2021-01-26 [facility], 1.2.840.1 [id number] 0531 Methodi 00:00:00 00:00:00 Only Robert Kee 74269.1.1 082 s t 3.430.2.7 Hospit a .3.779109 l .8 2021-01-22 2021-01-22 Aliyah Antony, 1.2.840.1 [id number] 79138 84115 Methodi 17:08:49 23:59:00 Encounter Robert B. 37685.1.[address] 3.430.2.7 Hospit a .3.092618 l .8 2021-01-22 2021-01-22 [facility], 1.2.840.1 [id number] 33593 Methodi 17:08:23 23:59:00 Encounter Robert Kee 98463.1.[address] 3.430.2.7 Hospit a .3.348552 l .8 2021-01-22 2021-01-22 Office [facility], 1.2.840.1 [id number] 918002 2461 Methodi 14:40:52 16:01:45 Visit Marissa Frank 01055.1.1 067 s t 3.430.2.7 Hospit a .3.990995 l .8 2021-01-22 2021-01-22 Travel 1.2.840.1 1.2.138.245 4672 768127 Methodi 00:00:00 00:00:[address] 3.430.2.7 0.2.7.3.698 Ho spita .3.089404 084.8 l .8 2021-01-20 2021-01-20 Emergency Bella, 1.2.840.1 [id number] 2 [id number] Methodi 16:16:00 16:58:[address] 3.430.2.7 Hospit a .3.204227 l .8 2021-01-20 2021-01-20 Travel 1.2.840.1 1.2.327.951 0179 750131 Methodi 00:00:00 00:00:[address] 3.430.2.7 0.2.7.3.698 Ho spita .3.687628 084.8 l .8 2021-01-20 2021-01-20 Documentat Provider, 1.2.840.1 [id number] 2 [id number] Methodi 00:00:00 00:00:00 ion Unknown 88044.1.[address] 3.430.2.7 Hospit a .3.548723 l .8 2021-01-16 2021-01-16 Travel 1.2.840.1 1.2.824.197 3486 [id number] Methodi 00:00:00 00:00:[address] 3.430.2.7 0.2.7.3.698 Ho spita .3.920736 084.8 l .8 2020-10-16 2020-10-16 Laboratory Lab, [facility] Fam Pob I [facility] 1.2. 840.114 [id number] Univers 16:55:10 17:15:10 Only Andrea [facility] 350.1.13.10 ity of [place] 4.2.7.2.686 Jairo as Professio [phone] Wi dical [address] Office Building [address] 2020-10-16 2020-10-16 Laboratory Lab, [facility] 1.2.840.114 80 [id number] 16:55:10 17:15:10 Only [facility] I Health 350.1.13.10 [place] 4.2.7.2.686 Professio [phone] [place] [address] Office [address] 2020-10-16 2020-10-16 Outpatient R ANDREA [facility] [id number] Univers 16:40:00 16:40:00 MAX ity of [facility] 2020-10-16 2020-10-16 Letter Doctor BENY 1.2.840.114 [id number] Univers 00:00:00 00:00:00 (Out) Unassigned, TERESA 350.1.13.10 ity of Veteran [facility] 4.2.7.2.686 Jairo as [phone] [address] 2020-10-16 2020-10-16 Letter Doctor BENY 1.2.840.114 [id number] 00:00:00 00:00:00 (Out) Unassigned, TERESA 350.1.13.10 Veteran [facility] [id number] [facility] 2020-09-25 2020-09-25 Appointmen FERNANDO MCKEON [facility] [id number] Univers 09:00:00 09:00:00 t; LUCAS MCKEON M.D. [place] - ity of Kristi ZAVALA M.D. Physici ans 2020-04-17 2020-04-17 Appointmen YESY, [facility] [id number] Univers 15:40:00 15:40:00 t; SUBHRATHA, ity of Son [place] SUBHRATHA, Physi ci M.DConrad ans 2020-04-14 2020-04-14 Appointmen YESY [facility] Women's [id number] 95 Univers 08:30:00 08:30:00 t; SUBHRATHA, [place] of [place] SUB[place]ATHA, Physi ci M.DConrad ans 2019-09-16 2019-09-16 Appointmen JACQUELINFERNANDO [facility] [id number] [id number] Univers 09:50:00 09:50:00 t; ELIOT ROPER gy [place] - it lorena MCCABE M.D. [place] duncan M.D. Physici ans 2019-09-15 2019-09-15 Appointmen JCAQUELIN [facility] [id number] Univers 11:20:00 11:20:00 t; ELIOT ROPER ity of [place], M.D. [place] M.D. Physici ans 2019-08-18 2019-08-18 Appointmen FERNANDO ROPER [facility] [id number] Univers 15:40:00 15:40:00 t; ELIOT ROPER gy [facility] it lorena MCCABE M.D. [place] duncan M.D. Physici ans 2019-08-09 2019-08-09 Appointmen MIKE [facility] [id number] Univers 10:30:00 10:30:00 t; LUCAS MCKEON M.D. [place] - ity Kristi ZAVALA M.D. Physici ans Results Test Description Test Time Test Comments Results Result [facility] e Comments - XR FLUORO NDL 2021-11-21 12:48:[address] [facility] : 1960 Sex: F Patient Name: YIN IBRAHIM Unit No: [id number] EXAMS: CPT CODE: [id number] XR FLUORO NDL 62816 Fluoroscopically guided right hip aspiration FINDINGS: After informed consent was obtained a 22-gauge needle is inserted into the right hip under fluoroscopic guidance using sterile technique. 1.5 mL of thin red fluid was aspirated. This is sent to the lab for analysis. The patient tolerated the procedure well. 40 seconds of fluoroscopy time was used on this exam. IMPRESSION: Fluoroscopically guided right hip aspiration. at 1244 Reported and signed by: Jeremy Kruse M.D. CC: Baldemar Epperson II, MD Technologist: RT Anthony.(R) Transcribed D/ (8096) AntonySLIgnacio [facility] NAME: YIN IBRAHIM [address] [place] [address] PHYS: Baldemar Britt II, MD : 1960 AGE: 61 SEX: F [place] [address] LOC: Y.RAD PHONE #: [phone] EXAM DATE: 11/20/2021 STATUS: DEP CLI FAX #: [phone] RAD #: D/C DT PAGE 1 Signed Report Patient Name: YIN IBRAHIM Unit No: [id number] EXAMS: CPT CODE: [id number] XR FLUORO NDL 50431 <Continued> Orig Print D/T: S: 11/21/2021 (3475) [facility] NAME: YIN IBRAHIM Arianna [facility] PHYS: SUNNYKATY Baldemar Jj II, MD : 1960 AGE: 61 SEX: F [place] [address] LOC: Y.RAD PHONE #: [phone] EXAM DATE: 11/20/2021 STATUS: ZANE CLI FAX #: [phone] RAD #: D/C DT PAGE 2 Signed Report - CT LOWER EXTRM 2021-11-21 W/O C RT 05:19:00 [facility] : 1960 Sex: F Patient Name: YIN IBRAHIM Unit No: [id number] EXAMS: CPT CODE: [id number] CT LOWER EXTRM W/[place] [address] TECHNIQUE: Volumetric CT data of the right femur was obtained without use of intravenous contrast. Images were then viewed in the axial, coronal and sagittal planes. CT radiation dose optimization is achieved for this examination by the use of a CT protocol in accordance with ACR practice standards and adherence to senior regulatory affairs specialist's recommendations. INDICATION: ASSESS HEALING COMPARISON: CT dated 06/22/2021 FINDINGS: Right total hip arthroplasty is demonstrated as well as plate and screw fixation of the lateral aspect of the femoral shaft. Hardware appears intact. An obliquely oriented fracture of the mid femoral shaft is present with incomplete healing. The mid to lateral aspect of the fracture demonstrates persistent lucency. The medial component of the fracture is less well demonstrated and possibly partially healed. Callus formation is seen about the proximal femoral shaft. No other fracture is identified. IMPRESSION: Incomplete healing of the right mid femoral shaft fracture. at 0519 Reported and signed by: Jeremy Kruse M.D. CC: Baldemar Epperson II, MD Technologist: Robert Samuel(R) CTDI: DLP: Trnscrpt: 11/21/2021 (0519) AntonySLJ [facility] NAME: YIN IBRAHIM [address] [place] [address] PHYS: KEYONA EppersonBaldemar Leiva II, MD : 1960 AGE: 61 SEX: F [place] [phone] LOC: Y.RAD PHONE #: [phone] EXAM DATE: 11/20/2021 STATUS: DEP CLI FAX #: [phone] RAD #: D/C DT PAGE 1 Signed Report Patient Name: YIN IBRAHIM Unit No: [id number] EXAMS: CPT CODE: [id number] CT LOWER EXTRM W/[place] [address] <Continued> Orig Print D/T: S: 11/21/2021 (0522) [facility] NAME: YIN IBRAHIM [address] [place] [address] PHYS: KEYONA EppersonBaldemar Leiva II, MD : 1960 AGE: 61 SEX: F [place] [address] LOC: Y.RAD PHONE #: [phone] EXAM DATE: 11/20/2021 STATUS: DEP CLI FAX #: [phone] RAD #: D/C DT PAGE 2 Signed Report SYNOVIAL FLD CELL CT/DIFF 2021-11-20 21:41:00 Test Item Value Reference Range Interpretation Comme nts SYNOVIAL FLD COLOR (test BLOODY LT. YELLOW A code = COLSY) SYNOVIAL FLD APPEARANCE CLOUDY CLEAR A (test code = APPSY) SYNOVIAL FLD VOLUME (test < 0.5 mL code = VOLSY) SYNOVIAL FLD WBC (test 188.000 /MM3 0-200 N code = WBCSY) SYNOVIAL FLD RBC (test 009579.000 /mm3 0-2 H NO TE: An automated method is code = RBCSY) now being used to determinesynovi al fluid WBC and RBC counts. The differential willstill be pe rformed manually. SYNOVIAL FLD POLY (test 58 % 0-25 H code = POLYSY) SYNOVIAL FLD LYMPHOCYTE 31 % 0-78 N (test code = LYMPHSY) SYNOVIAL FLD MONOCYTE 9 % 0-71 N (test code = MONOSY) SYNOVIAL FLD MACROPHAGE 2 % 0-3 N (test code = MACSY) SPECIMEN COMMENT: ASPIRATION RT HIP DONE BY DR KRUSE, SAVE ASP FOR 2 WKSAFB [id number] 06:13:25 Test Item Value Reference Range Interpretation Comments AFB culture No growth Specimen isolate (test after 6 weeks InformationSp ecimen code = 543-9) of Source: Tissue Specimen incubation. Site: Hip: Righ t hip deep tissue #4 [facility] [id number] 05:15:15 Test Item Value Reference Range Interpretation Comments Fungus culture No growth Specimen isolate (test after 4 weeks InformationSp ecimen code = 1441) of Source: TissueS pecimen incubation. Site: Hip: Righ t hip deep tissue #4 [facility] HospitalAnaerobic [id number] 13:21:21 Test Item Value Reference Range Interpretation Comments Anaerobic No anaerobic Specimen culture isolate organisms InformationS pecimen (test code = isolated. Source: TissueS pecimen 552) Site: Hip: Righ t hip deep tissue #4 [facility] HospitalAFB [id number] 02:09:34 Test Item Value Reference Range Interpretation Comments AFB stain No acid fast Specimen (test code = bacilli (AFB) InformationSpe cimen 676-7) seen. Source: TissueS pecimen Site: Hip: Righ t hip deep tissue #4 [facility] HospitalTissue [id number] 02:09:34 Test Item Value Reference Range Interpretation Comments Tissue culture No growth Specimen isolate (test after 3 days. InformationSp ecimen code = 87628-7) Source: Tiss ueSpecimen Site: Hip: Righ t hip deep tissue #4 [facility] HospitalFungus [id number] 02:09:34 Test Item Value Reference Range Interpretation Comments Fungus smear No fungi Specimen (test code = observed. InformationSpec imen Source: 1443) TissueSpecimen Site: Hip: Right hip deep tissue #4 [facility] HospitalGram [id number] 02:09:34Gram stain isolateRare WBC'sNo organisms seen Comment: Specimen InformationSpecimen Source: TissueSpecimen Site: Hip: Right hip deep tissue #4 [facility] Surgical pathology [id number] 01:45:48 Test Item Value Reference Range Interpretation Comments Case number (test code = [id number]) Surgical pathology See link below for report (test code = PDF Lab Report 8133) Result status (test code This is Final Report = [id number]) for [id number] [facility] RBC, 2 [id number] 20:45:00 Test Item Value Reference Range Interpretation Comments Product name (test code Apheresis -1 LR #2 = 25) Unit number (test code = [id number]) Product code (test code F7710E27 = 3092) Dispense status (test Returned to not code = 24) transfused Blood expiration date (test code = 302) Blood type code (test code = 308) Blood type (test code = O POSITIVE 1314) Compatibility (test code Compatible = 6400) [facility] [id number] 19:11:33 Test Item Value Reference Range Interpretation Comments POC glucose (test code 226 mg/dL 65-99 H Opera tor Name: = 40913-5) Ryan Escobar I D: [id number] able: No Action Neede d Lab Interpretation Abnormal (test code = 16359-5) [facility] CenterArterial blood gas, [id number] 15:16:19 Test Item Value Reference Range Interpretation Comments pH, arterial (test code 7.35-7.45 L = 2744-1) pCO2, arterial (test See_Comment H [Autom ated message] code = 2019-8) The system [facility] generated this result transmitted ref erence range: 35 - 45 mmHg. The reference r lyudmila was not used to interpret this result as normal/abnor mal. pO2, arterial (test code See_Comment H [A utomated message] = 2703-7) The system [employer] generated this result transmitted ref erence range: 80 - 90 mmHg. The reference r lyudmila was not used to interpret this result as normal/abnor mal. Temperature, Celsius Degrees C (test code = 8310-5) O2 saturation, arterial 99 % 95-100 (test code = 2708-6) pH, arterial corrected (test code = 31743-5) pCO2, arterial corrected mmHg (test code = 26039-5) pO2, arterial corrected mmHg (test code = 86822-8) Base excess, arterial See_Comment L [Auto mated message] (test code = 1924-7) The s tem which generated this result transmitted ref erence range: -2 - 2 m Eq/L. The reference r lyudmila was not used to interpret this result as normal/abnor mal. Lab Interpretation (test Abnormal code = 34253-7) [facility] CenterGlucose level, [id number] 15:16:19 Test Item Value Reference Range Interpretation Comments Glucose, syringe (test code = 284 mg/dL 65-99 H 2345-7) Lab Interpretation (test code = Abnormal 25553-9) [facility] CenterHemoglobin, [id number] 15:16:19 Test Item Value Reference Range Interpretation Comments Hemoglobin, syringe (test code = 9.9 g/dL 12.0-16.0 L 718-7) Lab Interpretation (test code = Abnormal 25771-3) [facility] CenterIonized calcium, [id number] 15:16:19 Test Item Value Reference Range Interpretation Comments Ionized calcium, arterial (test 1.19 mmol/L 1.11-1.32 code = 39078-3) [facility] CenterPotassium, [id number] 15:16:19 Test Item Value Reference Range Interpretation Comments Potassium, syringe See_Comment [Automat ed message] The (test code = 2007) system [facility] generated this result tra nsmitted reference range : 3.5 - 5.0 mEq/L. The refe rence range was not used to interpret this result as normal/abnormal . [facility] Servicesodium level, [id number] 15:16:19 Test Item Value Reference Range Interpretation Comments Sodium, syringe (test See_Comment L [Auto mated message] code = 2947-0) The system [employer] generated this result transmitted ref erence range: 135 - 14 8 mEq/L. The refe rence range was not u sed to interpret this result as normal/abnor mal. Lab Interpretation (test Abnormal code = 18957-0) [facility] HospitalType and [id number] 00:29:00 Test Item Value Reference Range Interpretation Comments ABO grouping (test code = 883-9) O Rh type (test code = 71349-1) POS Antibody screen (gel) (test code = NEG 890-4) [facility] HospitalECG 12 [id number] 21:11:17 Test Item Value Reference Range Interpretation Comments Ventricular rate (test code = 253) Atrial rate (test code = 255) DC interval (test code = 266) QRSD interval (test code = 260) QT interval (test code = 264) QTC interval (test code = 265) P axis 1 (test code = 267) QRS axis 1 (test code = 268) T wave axis (test code = 270) EKG impression (test Normal sinus code = 273) rhythm-Prolonged QT-Abnormal ECG-In automated comparison with ECG of 08-AUG-2021 08:40,-No significant change was found- [facility] [id number] 16:13:00 Test Item Value Reference Range Interpretation Comments SODIUM (test code = NA) 144 mEq/L 135-145 POTASSIUM (test code = 4.6 mEq/L 3.5-5.0 K) CHLORIDE (test code = 106 mEq/L 100-115 CL) CARBON DIOXIDE (test 29 mEq/L 22-31 code = CO2) GLUCOSE (test code = mg/dL 70-110 GLU) BLOOD UREA NITROGEN 21 mg/dL 7-18 H (test code = BUN) GLOMERULAR FILTRATION 32.8 >60 Unit o f measure: RATE (test code = GFR) mL/mi n/1.73 w1Buyzpcjrf Range:Healthy Adults >90 mL/min/1.73 m2 For Chronic Kidney Disease: St age II Mild Decrease in GFR 60-90 St age III Moderate Decrease in GFR 30-59 Stage IV Severe Decre ase in GFR 15- 29 Stage V Kidney Failure <15Uni t of measure: mL/min/1.73 a8Ugswbdlev Range:Healthy Adults >90 mL/min/1 .73 m2 For Chronic Kidney Disease: Stage II Mi ld Decrease in GFR 60-90 St age III Moderate Decrease in GFR 30-59 Stage IV Severe Decre ase in GFR 15- 29 Stage V Kidney Failure <15 CREATININE (test code = 1.6 mg/dL 0.5-1.0 H CREAT) TOTAL PROTEIN (test 5.5 gm/dL 6.3-8.2 L code = PROT) ALBUMIN (test code = 2.9 gm/dL 3.4-4.8 L ALB) GLOBULIN (test code = 2.6 g/dL 2.2-4.2 N GLOB) ALBUMIN/GLOBULIN RATIO 1.12 (test code = A/G) CALCIUM (test code = 8.1 mg/dL 8.4-10.2 L CA) BILIRUBIN TOTAL (test mg/dL 0.2-1.00 code = BILT) SGOT/AST (test code = 35 units/L 15-37 AST) SGPT/ALT (test code = 21 units/L 12-78 ALT) ALKALINE PHOSPHATASE 143 units/L 46-116 H TOTAL (test code = ALKP) PROTHROMBIN [id number] 16:12:00 Test Item Value Reference Range Interpretation Comments PROTHROMBIN TIME 14.1 secs 10.1-12.5 PATIENT (test code = PTP) INTERNATIONAL NORMAL 1.27 See_Comment The INR is to be used RATIO (test code = only for monitoring INR) oral anticoagulantth erapy. INDICATION INR VALUE 1. Prophylaxis inc luding high risk ren rgery 2 .0 - 2.52. Deep augustus ous thrombosis. Pu lmonary embolism. A trial fibrillation or bioprosthetic h eart valves 2.0 - 3.03. Mechanical hear t valves or recurrent syste pradip embolism. 3.0 - 3.5DUPLICATE [Automated mess age] The system [employer] generated this result transmitted ref erence range: (). The reference range was not used to int erpret this result as normal/abnormal . IS PATIENT ON ANTICOAGULANTS ? PAas Lab been notified if Patient is on Heparin Drip? YESAdd'l Lab Tests to be ordered if Y. NPROTHROMBIN [id number] 16:12:00 Test Item Value Reference Interpretation Comments Range PROTHROMBIN TIME PATIENT (test code = PTP) INTERNATIONAL TEST NOT DUPLICATEPrevi ously NORMAL RATIO (test PERFORMED reported result: 1.27 code = INR) Edited by: SYDNI OLVERA on 08/04/21:2232IN R prev. reported as:1.2 7 . . IS PATIENT ON ANTICOAGULANTS ? PAas Lab been notified if Patient is on Heparin Drip? YESAdd'l Lab Tests to be ordered if Y. [id number] 16:12:00 Test Item Value Reference Range Interpretation Comments SODIUM (test code = NA) 144 mEq/L 135-145 N [id number] 16:12:00 Test Item Value Reference Range Interpretation Comments POTASSIUM (test code = K) 4.6 mEq/L 3.5-5.0 N [id number] 16:12:00 Test Item Value Reference Range Interpretation Comments CHLORIDE (test code = CL) 106 mEq/L 100-115 N CARBON [id number] 16:12:00 Test Item Value Reference Range Interpretation Comments CARBON DIOXIDE (test code = CO2) 29 mEq/L 22-31 N BLOOD UREA [id number] 16:12:00 Test Item Value Reference Range Interpretation Comments BLOOD UREA NITROGEN (test code = 21 mg/dL 7-18 H BUN) GLOMERULAR FILTRATION [id number] 16:12:00 Test Item Value Reference Range Interpretation Comments GLOMERULAR FILTRATION RATE (test 33 ml/min >60 L code = GFR) [id number] 16:12:00 Test Item Value Reference Range Interpretation Comments CREATININE (test code = CREAT) 1.6 mg/dL 0.5-1.0 H TOTAL [id number] 16:12:00 Test Item Value Reference Range Interpretation Comments TOTAL PROTEIN (test code = PROT) 5.5 gm/dL 6.3-8.2 L [id number] 16:12:00 Test Item Value Reference Range Interpretation Comments ALBUMIN (test code = ALB) 2.9 gm/dL 3.4-4.8 L [id number] 16:12:00 Test Item Value Reference Range Interpretation Comments CALCIUM (test code = CA) 8.1 mg/dL 8.4-10.2 L [id number] 16:12:00 Test Item Value Reference Range Interpretation Comments SGOT/AST (test code = AST) 35 units/L 15-37 N [id number] 16:12:00 Test Item Value Reference Range Interpretation Comments SGPT/ALT (test code = ALT) 21 units/L 12-78 N ALKALINE PHOSPHATASE [id number] 16:12:00 Test Item Value Reference Range Interpretation Comments ALKALINE PHOSPHATASE TOTAL (test 143 units/L 46-116 H code = ALKP) ALBUMIN/GLOBULIN [id number] 16:12:00 Test Item Value Reference Range Interpretation Comments ALBUMIN/GLOBULIN RATIO TEST NOT PERFORMED (test code = A/G) THROMBOPLASTIN TIME [id number] 10:19:00 Test Item Value Reference Range Interpretation Comments PTT ACTIVATED (test code = APTT) 39.1 secs 24.9-37.0 IS PATIENT ON ANTICOAGULANTS ? PAas Lab been notified if Patient is on Heparin Drip? YESAdd'l Lab Tests to be ordered if Y. NTHYROID STIMULATING HORMONE 2021-08-06 07:22:00 Test Item Value Reference Range Interpretation Comments THYROID STIMULATING 2.69 0.36-3.74 Test Per formed in HORMONE (test code = MicroIn ternational Units/mL TSH) THYROID STIMULATING [id number] 07:21:00 Test Item Value Reference Range Interpretation Comments THYROID STIMULATING 2.69 0.36-3.74 N Test Per formed in HORMONE (test code = MicroIn ternational Units/mL TSH) B-TYPE NATRIURETIC [id number] 07:18:00 Test Item Value Reference Range Interpretation Comments B-TYPE NATRIURETIC PEPTIDE (test 344.28 pg/mL 0-100 H code = BNP) B-TYPE NATRIURETIC [id number] 07:18:00 Test Item Value Reference Range Interpretation Comments B-TYPE NATRIURETIC PEPTIDE (test 344.28 pg/mL 0-100 H code = BNP) CREATINE KINASE (CK)2021-08-06 07:17:00 Test Item Value Reference Range Interpretation Comments CREATINE KINASE (CK) (test code = 837 Units/L 26-192 H CK) CREATINE KINASE (CK)2021-08-06 07:16:00 Test Item Value Reference Range Interpretation Comments CREATINE KINASE (CK) (test code = 837 Units/L 26-192 H CK) BASIC METABOLIC [id number] 06:56:00 Test Item Value Reference Range Interpretation Comments SODIUM (test code = 145 mmol/L 136-145 N NA) POTASSIUM (test code = 4.3 mmol/L 3.5-5.1 N K) CHLORIDE (test code = 108.0 mmol/L 98-107 H CL) CARBON DIOXIDE (test 25.7 mmol/L 21-32 N code = CO2) GLUCOSE (test code = 83 mg/dL 70-110 N GLU) BLOOD UREA NITROGEN 18 mg/dL 7-18 N (test code = BUN) GLOMERULAR FILTRATION 49.0 >60 Unit o f measure: RATE (test code = GFR) mL/mi n/1.73 e4Curuffzty Range:Healthy Adults >90 mL/min/1.73 m2 For Chronic Kidney Disease: St age II Mild Decrease in GFR 60-90 St age III Moderate Decrease in GFR 30-59 Stage IV Severe Decre ase in GFR 15- 29 Stage V Kidney Failure <15 CREATININE (test code 1.13 mg/dL 0.55-1.30 N = CREAT) CALCIUM (test code = 8.0 mg/dL 8.2-10.1 L CA) CBC W/AUTO [id number] 06:31:00 Test Item Value Reference Range Interpretation Comments WHITE BLOOD CELL (test code = WBC) 7.2 K/mm3 5.8-11.0 N RED BLOOD CELL (test code = RBC) 2.67 M/mm3 4.2-5.4 L HEMOGLOBIN (test code = HGB) 7.5 g/dL 12-16 L HEMATOCRIT (test code = HCT) 23.8 % 37-47 L MEAN CELL VOLUME (test code = MCV) 89 fL 80-98 N MEAN CELL HGB (test code = MCH) 28.1 pg 27-34 N MEAN CELL HGB CONCENTRATION (test 31.5 g/dL 30.8-34.1 N code = MCHC) RED CELL DISTRIBUTION WIDTH (test 14.9 % 11-16 N code = RDW) PLT (test code = PLT) 199 K/mm3 130-400 N MEAN PLATELET VOLUME (test code = 9.4 fL 8.9-12.1 N MPV) NEUTROPHIL % (test code = NT%) 79.9 % 45-70 H LYMPHOCYTE % (test code = LY%) 12.5 % 20-40 L MONOCYTE % (test code = MO%) 4.4 % 3-10 N EOSINOPHIL % (test code = EO%) 1.5 % 1-5 N BASOPHIL % (test code = BA%) 0.3 % 0.0-1.1 N NEUTROPHIL # (test code = NT#) 5.76 K/mm3 2.00-7.50 N LYMPHOCYTE # (test code = LY#) 0.90 K/mm3 1.50-4.00 L MONOCYTE # (test code = MO#) 0.32 K/mm3 0.2-0.8 N EOSINOPHIL # (test code = EO#) 0.11 K/mm3 0.04-0.4 N BASOPHIL # (test code = BA#) 0.02 K/mm3 0.02-0.10 N MANUAL DIFF REQUIRED (test code = NO MANUAL DIFF MDIFF) NUCLEATED RED BLOOD CELL (test 0 % 0-0 N code = NRBC) HGB [id number] 23:44:00 Test Item Value Reference Range Interpretation Comments HEMOGLOBIN (test code = 6.5 g/dL 10.1-13.8 LL RESU LTS CALLED TO HGB) SRAVANIZULEIMA NARAYANAN AD BACK & CONFIRMED? YE CallMinerY F.LAB.IR1 08/04 2342Results jaylen ified by repeat maryjane sis HEMATOCRIT (test code = 21.2 % 32.5-41.8 L HCT) HGB [id number] 23:43:00 Test Item Value Reference Range Interpretation Comments HEMOGLOBIN (test code = 6.5 g/dL 10.1-13.8 LL RESU LTS CALLED TO HGB) SRAVANIZULEIMA NARAYANAN AD BACK & CONFIRMED? ELIZABETH CallMinerY F.LAB.IR1 08/04 2342Results jaylen ified by repeat maryjane sis HEMATOCRIT (test code = 21.2 % 32.5-41.8 L HCT) [id number] 23:24:00 Test Item Value Reference Range Interpretation Comments GLUCOSE (test code = GLU) BILIRUBIN [id number] 23:24:00 Test Item Value Reference Range Interpretation Comments BILIRUBIN TOTAL (test code = BILT) mg/dL 0.2-1.0 COVID 19 Asymptomatic IH [id number] 23:06:00 Test Item Value Reference Range Interpretation Comments COVID 19 Asymptomatic IH AG (test NEGATIVE NEGATIVE code = COVNONPUIAG) THROMBOPLASTIN TIME [id number] 22:32:00 Test Item Value Reference Range Interpretation Comments THROMBOPLASTIN TIME PARTIAL (test code = PTT) IS PATIENT ON ANTICOAGULANTS ? PAas Lab been notified if Patient is on Heparin Drip? YESAdd'l Lab Tests to be ordered if Y. NPROTHROMBIN [id number] 22:31:00 Test Item Value Reference Range Interpretation Comments PROTHROMBIN TIME 14.1 secs 10.1-12.3 H PATIENT (test code = PTP) INTERNATIONAL NORMAL 1.27 The INR is to be used RATIO (test code = only for monitoring INR) oral anticoagulantth erapy. INDICATION INR VALUE 1. Prophylaxis inc luding high risk ren rgery 2 .0 - 2.52. Deep augustus ous thrombosis. Pu lmonary embolism. A trial fibrillation or bioprosthetic h eart valves 2.0 - 3.03. Mechanical hear t valves or recurrent syste pradip embolism. 3.0 - 3.5 THROMBOPLASTIN TIME [id number] 22:31:00 Test Item Value Reference Range Interpretation Comments THROMBOPLASTIN TIME PARTIAL (test 39.1 secs 22-38 H code = PTT) CBC W/AUTO [id number] 22:27:00 Test Item Value Reference Range Interpretation Comments WHITE BLOOD CELL 4.6 K/mm3 6.5-12.3 L DONE AT: [facility] (test code = WBC) [facility] [address] [place] [address] RED BLOOD CELL (test 2.32 M/mm3 3.51-4.69 L code = RBC) HEMOGLOBIN (test code 6.5 g/dL 10.1-13.8 LL RESULT S VERIFIED BY = HGB) REPEAT ANALYSIS RESULTS CALLED TO YOUSIF MCGHEE/[facility] EREAD BACK & CONF IRMED? YBY F.LAB.RV 1730 HEMATOCRIT (test code 21.3 % 32.5-41.8 L = HCT) MEAN CELL VOLUME 91.8 fL 84.6-96.6 (test code = MCV) MEAN CELL HGB (test 28.0 pg 27.3-33.9 code = MCH) MEAN CELL HGB 30.5 gm/dL 32.0-34.2 L CONCENTRATION (test code = MCHC) RED CELL DISTRIBUTION 13.7 % 12.2-16.3 WIDTH (test code = RDW) PLT (test code = PLT) 192 K/mm3 134-363 MEAN PLATELET VOLUME 9.5 fL 9.2-12.7 (test code = MPV) NEUTROPHIL % (test 71.1 % 57.9-77.3 code = NT%) LYMPHOCYTE % (test 19.4 % 14.5-29.7 code = LY%) MONOCYTE % (test code 7.3 % 3.6-10.2 = MO%) EOSINOPHIL % (test 0.9 % 0.0-3.0 code = EO%) BASOPHIL % (test code 0.4 % 0.1-0.9 = BA%) NEUTROPHIL # (test 3.3 K/mm3 See_Comment [Automat ed message] code = NT#) The system [employer] generated this result transmitted ref erence range: (). The reference range was not used to int erpret this result as normal/abnormal . LYMPHOCYTE # (test 0.9 K/mm3 See_Comment [Automat ed message] code = LY#) The system [employer] generated this result transmitted ref erence range: (). The reference range was not used to int erpret this result as normal/abnormal . MONOCYTE # (test code 0.3 K/mm3 See_Comment [Auto mated message] = MO#) The system [employer] generated this result transmitted ref erence range: (). The reference range was not used to int erpret this result as normal/abnormal . EOSINOPHIL # (test 0.04 K/mm3 See_Comment [Automat ed message] code = EO#) The system [employer] generated this result transmitted ref erence range: (). The reference range was not used to int erpret this result as normal/abnormal . BASOPHIL # (test code 0 K/mm3 See_Comment [Auto mated message] = BA#) The system [employer] generated this result transmitted ref erence range: (). The reference range was not used to int erpret this result as normal/abnormal . PLATELET MORPHOLOGY NORMAL NORMAL REQUIRED (test code = PLTMR) CBC W/AUTO [id number] 22:26:00 Test Item Value Reference Range Interpretation Comments WHITE BLOOD CELL 4.6 K/mm3 6.5-12.3 L (test code = WBC) RED BLOOD CELL (test 2.32 M/mm3 3.51-4.69 L code = RBC) HEMOGLOBIN (test 6.5 g/dL 10.1-13.8 LL RESULTS JAYLNE IFIED BY code = HGB) REPEAT ANALYSIS RESULTS CALLED TO YOUSIF MCGHEE/[facility] NURSEREAD BACK & CONFIRMED? MAXINE DiazLAB.RV 08/04/21 9183 HEMATOCRIT (test 21.3 % 32.5-41.8 L code = HCT) MEAN CELL VOLUME 91.8 fL 84.6-96.6 N (test code = MCV) MEAN CELL HGB (test 28.0 pg 27.3-33.9 N code = MCH) MEAN CELL HGB 30.5 gm/dL 32.0-34.2 L CONCETRATION (test code = MCHC) RED CELL 13.7 % 12.2-16.3 N DISTRIBUTION WIDTH (test code = RDW) PLATELET COUNT (test 192 K/mm3 134-363 N code = PLT) MEAN PLATELET VOLUME 9.5 fL 9.2-12.7 N (test code = MPV) NEUTROPHIL % (test 71.1 % 57.9-77.3 N code = NT%) LYMPHOCYTE % (test 19.4 % 14.5-29.7 N code = LY%) MONOCYTE % (test 7.3 % 3.6-10.2 N code = MO%) EOSINOPHIL % (test 0.9 % 0.0-3.0 N code = EO%) BASOPHIL % (test 0.4 % 0.1-0.9 N code = BA%) NEUTROPHIL # (test 3.3 K/mm3 code = NT#) LYMPHOCYTE # (test 0.9 K/mm3 code = LY#) MONOCYTE # (test 0.3 K/mm3 code = MO#) EOSINOPHIL # (test 0.04 K/mm3 code = EO#) BASOPHIL # (test 0.0 K/mm3 code = BA#) RBC MORPHOLOGY NORMAL NORMAL REQUIRED (test code = RBCM) PLATELET MORPHOLOGY NORMAL NORMAL REQUIRED (test code = PLTMR) - XR CHEST 1 [id number] 17:44:00 [facility] 1960 Sex: F Patient Name: YIN IBRAHIM Unit No: [id number] EXAMS: CPT CODE: [id number] XR CHEST 1 V 37405 IMAGES PROVIDED: One frontal view of the chest is provided. COMPARISON:07/10/2021 FINDINGS: Left PICC line is in place with tip overlying the lower SVC. Right IJ catheter remains in place. Bilateral airspace opacities are increased, suggestive of pulmonary edema. The cardiac silhouette is enlarged. Pulmonary vasculature is mostly obscured IMPRESSION: 1. Probable pulmonary edema. Pneumonia is not excluded. 2. Left PICC line as above. Electronically Signedby Son Kruse on 08/04/2021 at 1744 Reported and signed by: Jeremy Kruse M.D. CC: Yahir Hendrix MD Technologist: RIVER HARTMANN, RT(R)Transcribed D/ (5655) tANGELJ [facility] NAME: YIN IBRAHIM [address] [place] [address] PHYS: Yahir Wilks : 1960 AGE: 61 SEX: F [place], [place] [address] LOC: Y.516 A PHONE #: [phone] EXAM DATE: 08/04/2021 STATUS: ADM IN FAX #: [phone] RAD #: D/C DT PAGE 1 Signed Report Patient Name: YIN IBRAHIM Unit No: [id number] EXAMS: CPT CODE: [id number] XR CHEST 1 V 94349 <Continued> Orig Print D/T: S: 08/04/2021 (6614) [facility] NAME: IYN IBRAHIM [address] [place] [address] PHYS: Arianna Yahir Sanz : 1960 AGE: 61 SEX: F [place], [place] [address] LOC: Y.516 A PHONE #: [phone] EXAM DATE: 08/04/2021 STATUS: ADM IN FAX #: [phone] RAD #: D/C DT PAGE 2 Signed ReportISTAT BLOOD GAS 2021-07-31 09:46:00 Test Item Value Reference Range Interpretation Comments POC PH ARTERIAL (test 7.369 7.35-7.45 N See CR ITICAL RESULTS code = PHAP) Form for documentation. POC PCO2 ARTERIAL 42.9 mmHg 35-45 N (test code = PCO2AP) POC-TCO2 ARTERIAL 26 mmol/L 23-27 N (test code = TCO2AP) POC-PO2 ARTERIAL (test 38 mmHg 80-105 LL code = PO2AP) POC-HCO3 ARTERIAL 24.7 mmol/L 22-26 N (test code = HCO3AP) POC-BASE EXCESS -1 mmol/L -2-3 N ARTERIAL (test code = BEAP) POC-SO2 ARTERIAL (test 70 % 95-98 L code = SO2AP) POC HEMOGLOBIN (test 6.5 g/dL 12-16 LL See CRI TICAL RESULTS code = HBP) Form for documentation. POC HEMATOCRIT (test 19 % 38-51 LL See CRI TICAL RESULTS code = HCTP) Form for documentation. SODIUM POC (test code 140 mmol/L 138-146 N = NAP) POTASSIUM POC (test 5.5 mmol/L 3.5-4.9 H code = KP) GLUCOSE POC (test code 178 mg/dL 70-105 H = GLUP) CALCIUM IONIZED (test 1.14 mmol/L 1.12-1.32 N code = SARITHA) CBC W/MANUAL [id number] 09:03:00 Test Item Value Reference Range Interpretation Comments WHITE BLOOD CELL 4.7 K/mm3 5.8-11.0 L (test code = WBC) RED BLOOD CELL (test 2.58 M/mm3 4.2-5.4 L code = RBC) HEMOGLOBIN (test 7.6 g/dL 12-16 L code = HGB) HEMATOCRIT (test 23.4 % 37-47 L code = HCT) MEAN CELL VOLUME 91 fL 80-98 N (test code = MCV) MEAN CELL HGB (test 29.5 pg 27-34 N code = MCH) MEAN CELL HGB 32.5 g/dL 30.8-34.1 N CONCENTRATION (test code = MCHC) RED CELL 14.1 % 11-16 N DISTRIBUTION WIDTH (test code = RDW) PLT (test code = 144 K/mm3 130-400 N PLT) MEAN PLATELET VOLUME 9.7 fL 8.9-12.1 N (test code = MPV) STAIN ACCEPTABILITY STAIN ACCEPTABLE (test code = STN ACCEPTABLE) CELLS COUNTED (test 100 See_Comment [Automa holley code = TCC) message] The system which generated this result transmitted reference range : 100. The reference range was not used to interpret this result as normal/abnormal . SEGMENTED 65 % 50-65 N NEUTROPHILS (test code = SEG) LYMPHOCYTE (test 28 % 20-40 N code = LYMPH) MONOCYTE (test code 2 % 2-9 N = MON) EOSINOPHIL (test 4 % 1-3 H code = EOS) BASOPHIL (test code 1 % 0.3-1.0 N = BASO) NUCLEATED RED BLOOD 0 % 0-0 N CELL (test code = NRBC) CBC W/MANUAL [id number] 05:56:00 Test Item Value Reference Range Interpretation Comments WHITE BLOOD CELL (test 4.7 K/mm3 5.8-11.0 L code = WBC) RED BLOOD CELL (test 2.58 M/mm3 4.2-5.4 L code = RBC) HEMOGLOBIN (test code = 7.6 g/dL 12-16 L HGB) HEMATOCRIT (test code = 23.4 % 37-47 L HCT) MEAN CELL VOLUME (test 91 fL 80-98 N code = MCV) MEAN CELL HGB (test 29.5 pg 27-34 N code = MCH) MEAN CELL HGB 32.5 g/dL 30.8-34.1 N CONCENTRATION (test code = MCHC) RED CELL DISTRIBUTION 14.1 % 11-16 N WIDTH (test code = RDW) PLT (test code = PLT) 144 K/mm3 130-400 N MEAN PLATELET VOLUME 9.7 fL 8.9-12.1 N (test code = MPV) STAIN ACCEPTABILITY (test code = STN ACCEPTABLE) CELLS COUNTED (test See_Comment [Automa holley message] code = TCC) The system whic h generated this result transmit holley reference range : 100. The refere nce range was not u sed to interpret th is result as normal/abnormal . SEGMENTED NEUTROPHILS % 50-65 (test code = SEG) LYMPHOCYTE (test code = % 20-40 LYMPH) NUCLEATED RED BLOOD 0 % 0-0 N CELL (test code = NRBC) CBC W/AUTO [id number] 05:56:00 Test Item Value Reference Range Interpretation Comments WHITE BLOOD CELL (test 4.7 K/mm3 5.8-11.0 L code = WBC) RED BLOOD CELL (test 2.58 M/mm3 4.2-5.4 L code = RBC) HEMOGLOBIN (test code = 7.6 g/dL 12-16 L HGB) HEMATOCRIT (test code = 23.4 % 37-47 L HCT) MEAN CELL VOLUME (test 91 fL 80-98 N code = MCV) MEAN CELL HGB (test code 29.5 pg 27-34 N = MCH) MEAN CELL HGB 32.5 g/dL 30.8-34.1 N CONCENTRATION (test code = MCHC) RED CELL DISTRIBUTION 14.1 % 11-16 N WIDTH (test code = RDW) PLT (test code = PLT) 144 K/mm3 130-400 N MEAN PLATELET VOLUME 9.7 fL 8.9-12.1 N (test code = MPV) NEUTROPHIL % (test code 57.9 % 45-70 N = NT%) LYMPHOCYTE % (test code 31.3 % 20-40 N = LY%) MONOCYTE % (test code = 6.6 % 3-10 N MO%) EOSINOPHIL % (test code 1.7 % 1-5 N = EO%) BASOPHIL % (test code = 0.4 % 0.0-1.1 N BA%) NEUTROPHIL # (test code 2.72 K/mm3 2.00-7.50 N = NT#) LYMPHOCYTE # (test code 1.47 K/mm3 1.50-4.00 L = LY#) MONOCYTE # (test code = 0.31 K/mm3 0.2-0.8 N MO#) EOSINOPHIL # (test code 0.08 K/mm3 0.04-0.4 N = EO#) BASOPHIL # (test code = 0.02 K/mm3 0.02-0.10 N BA#) MANUAL DIFF REQUIRED YES MANUAL DIFF MANUAL DIFF (test code = MDIFF) REQUIRED . NUCLEATED RED BLOOD CELL 0 % 0-0 N (test code = NRBC) CBC W/MANUAL [id number] 05:56:00 Test Item Value Reference Range Interpretation Comments STAIN ACCEPTABILITY (test code = STN ACCEPTABLE) CELLS COUNTED (test code See_Comment [A utomated message] = TCC) The system [employer] generated this result transmitted ref erence range: 100. The reference range was not used to interpr et this result as normal/abnormal . SEGMENTED NEUTROPHILS % 50-65 (test code = SEG) LYMPHOCYTE (test code = % 20-40 LYMPH) HGB [id number] 14:30:00 Test Item Value Reference Range Interpretation Comments HEMOGLOBIN (test code = 7.7 g/dL 12-16 L HGB) HEMATOCRIT (test code = 16.2 % 37-47 LL VERI FIED BY REPEAT HCT) ANALYSIS.CRITIC AL VALUE CALLED TO MARIAM RN/LILIBETH RN PCUREAD BACK & CONFIRMED? YESB Y [id number] CBC W/MANUAL [id number] 10:21:00 Test Item Value Reference Range Interpretation Comments WHITE BLOOD CELL 5.8 K/mm3 5.8-11.0 N (test code = WBC) RED BLOOD CELL (test 2.47 M/mm3 4.2-5.4 L code = RBC) HEMOGLOBIN (test 7.3 g/dL 12-16 L code = HGB) HEMATOCRIT (test 22.5 % 37-47 L code = HCT) MEAN CELL VOLUME 91 fL 80-98 N (test code = MCV) MEAN CELL HGB (test 29.6 pg 27-34 N code = MCH) MEAN CELL HGB 32.4 g/dL 30.8-34.1 N CONCENTRATION (test code = MCHC) RED CELL 14.3 % 11-16 N DISTRIBUTION WIDTH (test code = RDW) PLT (test code = 119 K/mm3 130-400 L PLT) MEAN PLATELET VOLUME 9.6 fL 8.9-12.1 N (test code = MPV) STAIN ACCEPTABILITY STAIN ACCEPTABLE (test code = STN ACCEPTABLE) CELLS COUNTED (test 100 See_Comment [Automa holley code = TCC) message] The system which generated this result transmitted reference range : 100. The reference range was not used to interpret this result as normal/abnormal . SEGMENTED 66 % 50-65 H NEUTROPHILS (test code = SEG) LYMPHOCYTE (test 31 % 20-40 N code = LYMPH) MONOCYTE (test code 2 % 2-9 N = MON) EOSINOPHIL (test 1 % 1-3 N code = EOS) NUCLEATED RED BLOOD 0 % 0-0 N CELL (test code = NRBC) BASIC METABOLIC [id number] 06:45:00 Test Item Value Reference Range Interpretation Comments SODIUM (test code = 145 mmol/L 136-145 N NA) POTASSIUM (test code = 3.8 mmol/L 3.5-5.1 N K) CHLORIDE (test code = 109.0 mmol/L 98-107 H CL) CARBON DIOXIDE (test 27.5 mmol/L 21-32 N code = CO2) GLUCOSE (test code = 95 mg/dL 70-110 N GLU) BLOOD UREA NITROGEN 13 mg/dL 7-18 N (test code = BUN) GLOMERULAR FILTRATION 64.5 >60 Unit o f measure: RATE (test code = GFR) mL/mi n/1.73 [id number] Range:Healthy Adults >90 mL/min/1.73 m2 For Chronic Kidney Disease: St age II Mild Decrease in GFR 60-90 St age III Moderate Decrease in GFR 30-59 Stage IV Severe Decre ase in GFR 15- 29 Stage V Kidney Failure <15 CREATININE (test code 0.89 mg/dL 0.55-1.30 N = CREAT) CALCIUM (test code = 7.6 mg/dL 8.2-10.1 L CA) CBC W/MANUAL [id number] 06:21:00 Test Item Value Reference Range Interpretation Comments WHITE BLOOD CELL (test 5.8 K/mm3 5.8-11.0 N code = WBC) RED BLOOD CELL (test 2.47 M/mm3 4.2-5.4 L code = RBC) HEMOGLOBIN (test code = 7.3 g/dL 12-16 L HGB) HEMATOCRIT (test code = 22.5 % 37-47 L HCT) MEAN CELL VOLUME (test 91 fL 80-98 N code = MCV) MEAN CELL HGB (test 29.6 pg 27-34 N code = MCH) MEAN CELL HGB 32.4 g/dL 30.8-34.1 N CONCENTRATION (test code = MCHC) RED CELL DISTRIBUTION 14.3 % 11-16 N WIDTH (test code = RDW) PLT (test code = PLT) 119 K/mm3 130-400 L MEAN PLATELET VOLUME 9.6 fL 8.9-12.1 N (test code = MPV) STAIN ACCEPTABILITY (test code = STN ACCEPTABLE) CELLS COUNTED (test See_Comment [Automa holley message] code = TCC) The system [employer] generated this result transmit holley reference range : 100. The refere nce range was not u sed to interpret th is result as normal/abnormal . SEGMENTED NEUTROPHILS % 50-65 (test code = SEG) LYMPHOCYTE (test code = % 20-40 LYMPH) NUCLEATED RED BLOOD 0 % 0-0 N CELL (test code = NRBC) CBC W/AUTO [id number] 06:21:00 Test Item Value Reference Range Interpretation Comments WHITE BLOOD CELL (test 5.8 K/mm3 5.8-11.0 N code = WBC) RED BLOOD CELL (test 2.47 M/mm3 4.2-5.4 L code = RBC) HEMOGLOBIN (test code = 7.3 g/dL 12-16 L HGB) HEMATOCRIT (test code = 22.5 % 37-47 L HCT) MEAN CELL VOLUME (test 91 fL 80-98 N code = MCV) MEAN CELL HGB (test code 29.6 pg 27-34 N = MCH) MEAN CELL HGB 32.4 g/dL 30.8-34.1 N CONCENTRATION (test code = MCHC) RED CELL DISTRIBUTION 14.3 % 11-16 N WIDTH (test code = RDW) PLT (test code = PLT) 119 K/mm3 130-400 L MEAN PLATELET VOLUME 9.6 fL 8.9-12.1 N (test code = MPV) NEUTROPHIL % (test code 61.2 % 45-70 N = NT%) LYMPHOCYTE % (test code 30.3 % 20-40 N = LY%) MONOCYTE % (test code = 6.1 % 3-10 N MO%) EOSINOPHIL % (test code 1.2 % 1-5 N = EO%) BASOPHIL % (test code = 0.3 % 0.0-1.1 N BA%) NEUTROPHIL # (test code 3.54 K/mm3 2.00-7.50 N = NT#) LYMPHOCYTE # (test code 1.75 K/mm3 1.50-4.00 N = LY#) MONOCYTE # (test code = 0.35 K/mm3 0.2-0.8 N MO#) EOSINOPHIL # (test code 0.07 K/mm3 0.04-0.4 N = EO#) BASOPHIL # (test code = 0.02 K/mm3 0.02-0.10 N BA#) MANUAL DIFF REQUIRED YES MANUAL DIFF MANUAL DIFF (test code = MDIFF) REQUIRED . NUCLEATED RED BLOOD CELL 0 % 0-0 N (test code = NRBC) CBC W/MANUAL [id number] 06:21:00 Test Item Value Reference Range Interpretation Comments STAIN ACCEPTABILITY (test code = STN ACCEPTABLE) CELLS COUNTED (test code See_Comment [A utomated message] = TCC) The system [employer] generated this result transmitted ref erence range: 100. The reference range was not used to interpr et this result as normal/abnormal . SEGMENTED NEUTROPHILS % 50-65 (test code = SEG) LYMPHOCYTE (test code = % 20-40 LYMPH) VANCOMYCIN [id number] 07:33:00 Test Item Value Reference Range Interpretation Comments VANCOMYCIN TROUGH 13.20 mcg/mL 10-20 N THERAPEUTI C RANGE: (test code = VANCT) PE AK: 30-40 mcg/mL TROUGH: 10-20 m cg/mL TOXIC RANGE: 80 -100 mcg/mL DATE OF LAST DOSE: 07/10/21TIME OF LAST DOSE: 0500HGB [id number] 06:08:00 Test Item Value Reference Range Interpretation Comments HEMOGLOBIN (test code = 6.0 g/dL 12-16 LL VERI FIED BY REPEAT HGB) ANALYSIS.CRITIC AL VALUE CALLED TO ROXI Duncan/PAULY LYONS BACK & CONFIRME D? [facility] Y.[facility] 07/11 0608 HEMATOCRIT (test code = 18.4 % 37-47 LL VERI FIED BY REPEAT HCT) ANALYSIS.CRITIC AL VALUE CALLED TO ROXI Duncan/PAULY LYONS BACK & CONFIRME D? [facility] Y.LAB.[facility] 07/11 0608 SPECIMEN COMMENT: POD #2- XR CHEST 1 [id number] 13:45:[address] [facility] : 1960 Sex: F Patient Name: YIN IBRAHIM Unit No: [id number] EXAMS: CPT CODE: [id number] XR CHEST 1 [id number] IMAGES PROVIDED: One frontal view of the chest is provided. COMPARISON: 07/10/2021 FINDINGS: The left PICC line has been adjusted with tip now overlying the SVC. No other significant interval change. IMPRESSION: Successful revision of left PICC line as above. at 1345 Reported and signed by: Jeremy Kruse M.D. CC: Yahir Hendrix MD; Shannan Escobar MD Technologist: KADY DIETZ RT(R) Transcribed D/ (8558) [facility]: [facility] [address] [facility] PHYS: Shannan Valera MD : 1960 AGE: 61 SEX: [place] [address] LOC: Y.521 A PHONE #: [phone] EXAM DATE: 07/10/2021 STATUS: ADM IN FAX #: [phone] RAD #: D/C DT PAGE 1 Signed Report Patient Name: YIN IBRAHIM Unit No: [id number] EXAMS: CPT CODE: [id number] XR CHEST 1 V 16969 <Continued> Orig Print D/T: S: 07/10/2021 (7207) [facility] NAME: YIN IBRAHIM [address] [facility] PHYS: Shannan Valera MD : 1960 AGE: 61 SEX: F [place], [place] [address] LOC: Y.521 A PHONE #: [phone] EXAM DATE: 07/10/2021 STATUS: ADM IN FAX #: [phone] RAD #: D/C DT PAGE 2 Signed Report- XR CHEST 1 [id number] 13:37:00 [facility] : 1960 Sex: F Patient Name: YIN IBRAHIM Unit No: [id number] EXAMS: CPT CODE: [id number] XR CHEST 1 [id number] IMAGES PROVIDED: One frontal view of the chest is provided. COMPARISON: None FINDINGS: Right-sided Port-A-Cath is in place with tip at the cavoatrial junction. A left PICC line is in place with tip terminating superiorly out of view. No focal consolidation. The cardiac silhouette is mildly enlarged. No pneumothorax or pleural effusion. IMPRESSION: Malpositioned left PICC line, as above. at 1337 Reported and signed by: Jeremy Kruse M.D. CC: Yahir Hendrix MD; Shannan Escobar MD Technologist: KADY DIETZ RT(R) Transcribed D/ (3627) AntonyIgnacio [facility] NAME: YIN IBRAHIM [address] [facility] PHYS: Shannan Valera MD : 1960 AGE: 61 SEX: F [place] [address] LOC: Y.521 A PHONE #: [phone] EXAM DATE: 07/10/2021 STATUS: ADM IN FAX #: [phone] RAD #: D/C DT PAGE 1 Signed Report Patient Name: YIN IBRAHIM Unit No: [id number] EXAMS: CPT CODE: [id number] XR CHEST 1 V 54564 <Continued> Orig Print D/T: S: 07/10/2021 (1340) [facility] NAME: YIN IBRAHIM [address] [facility] PHYS: Shannan Valera MD : 1960 AGE: 61 SEX: F [place] [address] LOC: Y.521 A PHONE #: [phone] EXAM DATE: 07/10/2021 STATUS: ADM IN FAX #: [phone] RAD #: D/C DT PAGE 2 Signed Report- XR PELVIS 1/2 [id number] 09:19:[address] [facility] : 1960 Sex: F Patient Name: YIN IBRAHIM Unit No: [id number] EXAMS: CPT CODE: [id number] XR PELVIS 1/2 [id number] INTRAOPERATIVE LEG LENGTH FILM COMMENT: COMPARIS ON: No prior exams available. In progress right hip replacement is noted. AP portable right hip COMMENT: The patient is status post joint replacement which is articulating normally. at 0919 Reported and signed by: Robert Cornelius MD CC: Yahir Hendrix MD Technologist: RIVER HARTMANN, RT(R) Transcribed D/ (0919) tYEFRIL [facility] NAME: YIN IBRAHIM [address] [facility] PHYS: MATVA.01 - Yahir Hendrix : 1960 AGE: 61 SEX: F [place], [place] [address] LOC: Y.521 A PHONE #: [phone] EXAM DATE:07/09/2021 STATUS: ADM IN FAX #: [phone] RAD #: D/C DT PAGE 1 Signed Report Patient Name: YIN IBRAHIM Unit No: [id number] EXAMS: CPT CODE: [id number] XR PELVIS 1/2 VIEWS 09619 <Cont inued> Orig Print D/T: S: 07/10/2021 (09) [facility] NAME: YNI IBRAHIM [address] [facility] PHYS: MATVA.01 - Yahir Hendrix : 1960 AGE: 61 SEX: F [place], [place] [address] LOC: Y.521 A PHONE #: [phone] EXAM DATE: 07/09/2021 STATUS: ADM IN FAX #: [phone] RAD #: D/C DT PAGE 2 Signed Report- XR PELVIS 1/2 VIEWS 2021-07-10 09:19:[address] [facility] : 1960 Sex: F Patient Name: YIN IBRAHIM Unit No: [id number] EXAMS: CPT CODE: [id number] XR PELVIS 1/2 [id number] INTRAOPERATIVE LEG LENGTH FILM COMMENT: COMPARIS ON: No prior exams available. In progress right hip replacement is noted. AP portable right hip COMMENT: The patient is status post joint replacement which is articulating normally. at 0919 Reported and signed by: Robert Cornelius MD CC: Yahir Hendrix MD Technologist: CONOR DALTON (RT.R) Transcribed D/ (918) Jesse [facility] NAME: YIN IBRAHIM [address] [facility] PHYS: MATZAK.01 - Yahir Hendrix : 1960 AGE: 61 SEX: F [place], [place] [address] LOC: Y.521 A PHONE #: [phone] EXAM DATE:07/09/2021 STATUS: ADM IN FAX #: [phone] RAD #: D/C DT PAGE 1 Signed Report Patient Name: YIN IBRAHIM Unit No: [id number] EXAMS: CPT CODE: [id number] XR PELVIS 1/2 VIEWS 64729 <Cont inued> Orig Print D/T: S: 07/10/2021 (0922) [facility] NAME: YIN IBRAHIM [address] [facility] PHYS: MATVA.01 - Yahir Hendrix : 1960 AGE: 61 SEX: F [place] [address] LOC: Y.521 A PHONE #: [phone] EXAM DATE: 07/09/2021 STATUS: ADM IN FAX #: [phone] RAD #: D/C DT PAGE 2 Signed ReportBASIC METABOLIC PANEL 2021-07-10 06:46:00 Test Item Value Reference Range Interpretation Comments SODIUM (test code = 140 mmol/L 136-145 N NA) POTASSIUM (test code = 4.8 mmol/L 3.5-5.1 N K) CHLORIDE (test code = 106.0 mmol/L 98-107 N CL) CARBON DIOXIDE (test 24.2 mmol/L 21-32 N code = CO2) GLUCOSE (test code = 158 mg/dL 70-110 H GLU) BLOOD UREA NITROGEN 16 mg/dL 7-18 N (test code = BUN) GLOMERULAR FILTRATION 46.6 >60 Unit o f measure: RATE (test code = GFR) mL/mi n/1.73 [id number] Range:Healthy Adults >90 mL/min/1.73 m2 For Chronic Kidney Disease: St age II Mild Decrease in GFR 60-90 St age III Moderate Decrease in GFR 30-59 Stage IV Severe Decre ase in GFR 15- 29 Stage V Kidney Failure <15 CREATININE (test code 1.18 mg/dL 0.55-1.30 N = CREAT) CALCIUM (test code = 7.7 mg/dL 8.2-10.1 L CA) SPECIMEN COMMENT: POD #1HGB [id number] 06:00:00 Test Item Value Reference Range Interpretation Comments HEMOGLOBIN (test code = HGB) 8.8 g/dL 12-16 L HEMATOCRIT (test code = HCT) 28.9 % 37-47 L SPECIMEN COMMENT: POD #1Novel Coronavirus 2019 [id number] 22:57:00 Test Item Value Reference Range Interpretation Comments [...] assa y in vitro. Novel Coronavirus 2018 [id number] 22:56:00 Test Item Value Reference Range Interpretation Comments [...] for the identification of SARS-CoV-2 RNA usingthe [employer] M2000 Sy stem under the FDA Emergen cy UseAuthorizatio n. The testing is perf ormed by carlos fraser in the procedures for the [employer] molecular diagnostic SARS-CoV-2 assa y in vitro. PROTHROMBIN [id number] 11:14:00 Test Item Value Reference Range Interpretation Comments PROTHROMBIN TIME 12.4 secs 10.1-12.5 N PATIENT (test code = PTP) INTERNATIONAL NORMAL 1.09 <2.0 RECOMME NDED THERAPEUTIC RATIO (test code [...] v dempsey IS PATIENT ON ANTICOAGULANTS ? PAas Lab been notified if Patient is on Heparin Drip? NOIf Yes, orderCBC, OCCULT BLOOD, PT every other day NTHROMBOPLASTIN TIME [id number] 11:14:00 Test Item Value Reference Range Interpretation Comments PTT ACTIVATED (test code = APTT) 33.3 secs 24.9-37.0 N IS PATIENT ON ANTICOAGULANTS ? PAas Lab been notified if Patient is on Heparin Drip? NOIf Yes, orderCBC, OCCULT BLOOD, PT every other day NCBC W/AUTO DIFF 2021-07-05 11:14:00 Test Item Value Reference Range Interpretation Comments WHITE BLOOD CELL (test code = WBC) 6.6 K/mm3 5.8-11.0 N RED BLOOD CELL (test code = RBC) 3.53 M/mm3 4.2-5.4 L HEMOGLOBIN (test code = HGB) 9.9 g/dL 12-16 L HEMATOCRIT (test code = HCT) 31.3 % 37-47 L MEAN CELL VOLUME (test code = MCV) 89 fL 80-98 N MEAN CELL HGB (test code = MCH) 28.0 pg 27-34 N MEAN CELL HGB CONCENTRATION (test 31.6 g/dL 30.8-34.1 N code = MCHC) RED CELL DISTRIBUTION WIDTH (test 12.9 % 11-16 N code = RDW) PLT (test code = PLT) 233 K/mm3 130-400 N MEAN PLATELET VOLUME (test code = 9.5 fL 8.9-12.1 N MPV) NEUTROPHIL % (test code = NT%) 68.1 % 45-70 N LYMPHOCYTE % (test code = LY%) 24.7 % 20-40 N MONOCYTE % (test code = MO%) 5.3 % 3-10 N EOSINOPHIL % (test code = EO%) 1.1 % 1-5 N BASOPHIL % (test code = BA%) 0.5 % 0.0-1.1 N NEUTROPHIL # (test code = NT#) 4.52 K/mm3 2.00-7.50 N LYMPHOCYTE # (test code = LY#) 1.64 K/mm3 1.50-4.00 N MONOCYTE # (test code = MO#) 0.35 K/mm3 0.2-0.8 N EOSINOPHIL # (test code = EO#) 0.07 K/mm3 0.04-0.4 N BASOPHIL # (test code = BA#) 0.03 K/mm3 0.02-0.10 N MANUAL DIFF REQUIRED (test code = NO MANUAL DIFF MDIFF) NUCLEATED RED BLOOD CELL (test 0 % 0-0 N code = NRBC) COMPREHENSIVE METABOLIC [id number] 11:13:00 Test Item Value Reference Range Interpretation Comments SODIUM (test code = 143 mmol/L 136-145 N NA) POTASSIUM (test code = 3.8 mmol/L 3.5-5.1 N K) CHLORIDE (test code = 104.0 mmol/L 98-107 N CL) CARBON DIOXIDE (test 30.7 mmol/L 21-32 N code = CO2) GLUCOSE (test code = 96 mg/dL 70-110 N GLU) BLOOD UREA NITROGEN 6 mg/dL 7-18 L (test code = BUN) GLOMERULAR FILTRATION 50.0 >60 Unit o f measure: RATE (test code = GFR) mL/mi n/1.73 [id number] Range:Healthy Adults >90 mL/min/1.73 m2 For Chronic Kidney Disease: St age II Mild Decrease in GFR 60-90 St age III Moderate Decrease in GFR 30-59 Stage IV Severe Decre ase in GFR 15- 29 Stage V Kidney Failure <15 CREATININE (test code 1.11 mg/dL 0.55-1.30 N = CREAT) TOTAL PROTEIN (test 6.7 g/dL 6.4-8.2 N code = PROT) ALBUMIN (test code = 3.7 g/dL 3.4-5.0 N ALB) GLOBULIN (test code = 3.0 g/dL 2.2-4.2 N GLOB) ALBUMIN/GLOBULIN RATIO 1.2 0.7-2.0 N (test code = A/G) CALCIUM (test code = 9.1 mg/dL 8.2-10.1 N CA) BILIRUBIN TOTAL (test 0.30 mg/dL 0.2-1.00 N code = BILT) SGOT/AST (test code = 16.0 U/L 15-37 N AST) SGPT/ALT (test code = 19.0 U/L 12-78 N Please note new ALT) normal range. ALKALINE PHOSPHATASE 187 U/L 46-116 H TOTAL (test code = ALKP) SYNOVIAL FLD CELL [id number] 18:42:00 Test Item Value Reference Range Interpretation Comments SYNOVIAL FLD XANTHOCHROMIC LT. YELLOW A COLOR (test code = COLSY) SYNOVIAL FLD OPAQUE CLEAR SLIGHT APPEARANCE (test code = APPSY) SYNOVIAL FLD 1.5 mL VOLUME (test code = VOLSY) SYNOVIAL FLD WBC 1048.000 /MM3 0-200 H (test code = WBCSY) SYNOVIAL FLD RBC 39424.000 /mm3 0-2 H NOTE: An automated (test code = method is now b eing RBCSY) used to determinesynovi al fluid WBC and RBC cou nts. The differential wi llstill be performed ma blake. SYNOVIAL FLD POLY 77 % 0-25 H (test code = POLYSY) SYNOVIAL FLD 11 % 0-78 N LYMPHOCYTE (test code = LYMPHSY) SYNOVIAL FLD 12 % 0-71 N MONOCYTE (test code = MONOSY) SPECIMEN COMMENT: ASP.RT.HIP- XR FLUORO [id number] 13:27:[address] [facility] 1960 Sex: F Patient Name: YIN IBRAHIM Unit No: [id number] EXAMS: CPT CODE: [id number] XR FLUORO [id number] FLUOROSCOPICALLY GUIDED ASPIRATION OF THE RIGHT HIP COMMENT: After informed consent was obtained a needle was placed in the hip joint with fluoroscopic guidance. Its position was confirmed with an AP radiograph. 0.2 minutes of fluoroscopy time was utilized. 3 mL of clear pink fluid was aspirated and sent for analysis. No immediate complications were encountered. at 1327 Reported and signed by: Robert Cornelius MD CC: Yahir Hendrix MD Technologist: Darshana Briceño RT.(R) Transcribed D/ (1327) t.[facility] NAME: YIN IBRAHIM [address] [facility] PHYS: MATVA.01 - Yahir Hendrix : 1960 AGE: 61 SEX: F [place], [place] [address] LOC: Y.RAD PHONE #: [phone] EXAM DATE: 06/22/2021 STATUS: REG CLI FAX #: [phone] RAD #: D/C DT PAGE 1 Signed Report PatientName: YIN IBRAHIM Unit No: [id number] EXAMS: CPT CODE: [id number] XR FLUORO NDL 14940 <Continued> Orig Print D/T: S: 06/22/2021 (1330) [facility] NAME: YIN IBRAHIM [address] [facility] PHYS: Yahir Nix : 1960 AGE: 61 SEX: F [place], [place] [address] LOC: Y.RAD PHONE #: [phone] EXAM DATE: 06/22/2021 STATUS: REG CLI FAX #: [phone] RAD #: D/C DT PAGE [id number] 13:11:00 Test Item Value Reference Range Interpretation Comments SYNOVIAL FLD COLOR (test code = XANTHOCHROMIC LT. YELLOW A COLSY) SYNOVIAL FLD APPEARANCE (test OPAQUE CLEAR SLIGHT code = APPSY) SYNOVIAL FLD VOLUME (test code 1.5 mL = VOLSY) SYNOVIAL FLD WBC (test code = /MM3 0-200 WBCSY) SYNOVIAL FLD RBC (test code = /mm3 0-2 RBCSY) SPECIMEN COMMENT: ASP.RT.HIP- CT LOWER EXTRM W/O C [id number] 11:26:00 [facility] : 1960 Sex: F Patient Name: YIN IBRAHIM Unit No: [id number] EXAMS: CPT CODE: [id number] CT LOWER EXTRM W/[place] [address] CT SCAN RIGHT HIP WITH RECONSTRUCTION DIAGNOSIS: 1. Patient status post total right hip arthroplasty. The prosthesis is articulating normally. There is no evidence of periprosthetic fracture. Bony lucency adjacent the acetabular component represents a screw tract. TECHNIQUE: Volumetric CT data of the right hip was obtained without use of intravenous contrast. Images were then viewed in the axial, coronal and sagittal planes. CT radiation dose optimization is achieved for this examination by the use of a CT protocol in accordance with ACR practice standards and adherence to senior regulatory affairs specialist's recommendations. INDICATION: RIGHT HIP R/O FRACTURE COMPARISON: None. FINDINGS: Findings are as described above. at 1126 Reported and signed by: Nabeel Matias MD CC: Yahir Hendrix MD Technologist: Baljeet Reddy,RT(R) CTDI: DLP: Trnscrpt: 06/22/2021 (1665) tANGELGVG [facility] NAME: YIN IBRAHIM [address] [place] [address] PHYS: ALBERTO.Arianna Randall Yahir Hendrix : 1960 AGE: 61 SEX: F [place] [address] LOC: Y.RAD PHONE #: [phone] EXAM DATE: 06/22/2021 STATUS: REG CLI FAX #: [phone] RAD #: D/C DT PAGE 1 Signed Report Patient Name: YIN IBRAHIM Unit No: [id number] EXAMS: CPT CODE: [id number] CT LOWER EXTRM W/[place] [address] <Continued> Orig Print D/T: S:06/22/2021 (1795) [facility] NAME: YIN IBRAHIM [address] [place] [address] PHYS: [place] Randall Yahir Hendrix Crystal : 1960 AGE: 61 SEX: F [place] [address] LOC: Y.RAD PHONE #: [phone] EXAM DATE: 06/22/2021 STATUS: REG CLI FAX #: [phone] RAD#: D/C DT PAGE 2 Signed Report- XR PELVIS 11/11 [id number] 08:44:00[facility] : 1960 Sex: F Patient Name: YIN IBRAHIM Unit No: [id number] EXAMS: CPT CODE: [id number] XR PELVIS 1/2 [id number] INTRAOPERATIVE LEG LENGTH FILM COMMENT: COMPARIS ON: No prior exams available. In progress right hip replacement is noted. AP portable right hip COMMENT: The patient is status post joint replacement which is articulating normally. at 0844 Reported and signed by: Robert Cornelius MD CC: Yahir Hendrix MD Technologist: FERNANDO ALEMAN RT(R) Transcribed D/ (0844) tMARIARConradL [facility] NAME: YIN IBRAHIM [address] [place] [address] PHYS: Yahir Nix : 1960 AGE: 60 SEX: F [place] [address] LOC: Y.502 A PHONE #: [phone] EXAM DATE:05/21/2021 STATUS: ADM IN FAX #: [phone] RAD #: D/C DT PAGE 1 Signed Report Patient Name: YIN IBRAHIM Unit No: [id number] EXAMS: CPT CODE: [id number] XR PELVIS 1/2 VIEWS 56649 <Cont inued> Orig Print D/T: S: 05/22/2021 (0847) [facility] NAME: YIN IBRAHIM [address] [place] [address] PHYS: Arianna Yahir Sanz Crystal : 1960 AGE: 60 SEX: F [place] [address] LOC: Y.502 A PHONE #: [phone] EXAM DATE: 05/21/2021 STATUS: ADM IN FAX #: [phone] RAD #: D/C DT PAGE 2 Signed Report- XR PELVIS 1/2 VIEWS 2021-05-22 08:44:[address] : 1960 Sex: F Patient Name: YIN IBRAHIM Unit No: [id number] EXAMS: CPT CODE: [id number] XR PELVIS 1/2 [id number] INTRAOPERATIVE LEG LENGTH FILM COMMENT: COMPARIS ON: No prior exams available. In progress right hip replacement is noted. AP portable right hip COMMENT: The patient is status post joint replacement which is articulating normally. at 0844 Reported and signed by: Robert Cornelius MD CC: Yahir Hendrix MD Technologist: CONOR DALTON (RT.R) Transcribed D/ (0844) tANGELJCL [facility] NAME: YIN IBRAHIM [address] [facility] PHYS: MATVA.01 - Yahir Hendrix : 1960 AGE: 60 SEX: F [place], [place] [address] LOC: Y.502 A PHONE #: [phone] EXAM DATE:05/21/2021 STATUS: ADM IN FAX #: [phone] RAD #: D/C DT PAGE 1 Signed Report Patient Name: YIN IBRAHIM Unit No: [id number] EXAMS: CPT CODE: [id number] XR PELVIS 1/2 VIEWS 70212 <Cont inued> Orig Print D/T: S: 05/22/2021 (0847) [facility] NAME: YIN IBRAHIM [address] [facility] PHYS: LASHONDAZAKBhavna Yahir Sanz : 1960 AGE: 60 SEX: F [place], [place] [address] LOC: YConrad502 A PHONE #: [phone] EXAM DATE: 05/21/2021 STATUS: ADM IN FAX #: [phone] RAD #: D/C DT PAGE 2 Signed ReportHGB [id number] 06:02:00 Test Item Value Reference Range Interpretation Comments HEMOGLOBIN (test code = HGB) 9.9 g/dL 12-16 L HEMATOCRIT (test code = HCT) 29.4 % 37-47 L SPECIMEN COMMENT: POD #1PROTHROMBIN [id number] 13:39:00 Test Item Value Reference Range Interpretation Comments PROTHROMBIN TIME 11.0 secs 10.1-12.5 N PATIENT (test code = PTP) INTERNATIONAL NORMAL 0.96 <2.0 RECOMME NDED THERAPEUTIC RATIO (test code [...] BLOOD, PT every other day NTHROMBOPLASTIN TIME [id number] 13:39:00 Test Item Value Reference Range Interpretation Comments PTT ACTIVATED (test code = APTT) 29.2 secs 24.9-37.0 N IS PATIENT ON ANTICOAGULANTS ? NHas Lab been notified if Patient is on Heparin Drip? NOIf Yes, orderCBC, OCCULT BLOOD, PT every other day NCOMPREHENSIVE METABOLIC [id number] 13:19:00 Test Item Value Reference Range Interpretation Comments SODIUM (test code = 141 mmol/L 136-145 N NA) POTASSIUM (test code = 4.2 mmol/L 3.5-5.1 N K) CHLORIDE (test code = 101.0 mmol/L 98-107 N CL) CARBON DIOXIDE (test 28.4 mmol/L 21-32 N code = CO2) GLUCOSE (test code = 113 mg/dL 70-110 H GLU) BLOOD UREA NITROGEN 16 mg/dL 7-18 N (test code = BUN) GLOMERULAR FILTRATION 48.1 >60 Unit o f measure: RATE (test code = GFR) mL/mi n/1.73 [id number] Range:Healthy Adults >90 mL/min/1.73 m2 For Chronic Kidney Disease: St age II Mild Decrease in GFR 60-90 St age III Moderate Decrease in GFR 30-59 Stage IV Severe Decre ase in GFR 15- 29 Stage V Kidney Failure <15 CREATININE (test code 1.15 mg/dL 0.55-1.30 N = CREAT) TOTAL PROTEIN (test 7.5 g/dL 6.4-8.2 N code = PROT) ALBUMIN (test code = 4.2 g/dL 3.4-5.0 N ALB) GLOBULIN (test code = 3.3 g/dL 2.2-4.2 N GLOB) ALBUMIN/GLOBULIN RATIO 1.3 0.7-2.0 N (test code = A/G) CALCIUM (test code = 8.7 mg/dL 8.2-10.1 N CA) BILIRUBIN TOTAL (test 0.30 mg/dL 0.2-1.00 N code = BILT) SGOT/AST (test code = 16.0 U/L 15-37 N AST) SGPT/ALT (test code = 24.0 U/L 12-78 N Please note new ALT) normal range. ALKALINE PHOSPHATASE 197 U/L 46-116 H TOTAL (test code = ALKP) CBC W/AUTO [id number] 12:40:00 Test Item Value Reference Range Interpretation Comments WHITE BLOOD CELL (test code = WBC) 5.1 K/mm3 5.8-11.0 L RED BLOOD CELL (test code = RBC) 4.03 M/mm3 4.2-5.4 L HEMOGLOBIN (test code = HGB) 12.3 g/dL 12-16 N HEMATOCRIT (test code = HCT) 37.9 % 37-47 N MEAN CELL VOLUME (test code = MCV) 94 fL 80-98 N MEAN CELL HGB (test code = MCH) 30.5 pg 27-34 N MEAN CELL HGB CONCENTRATION (test 32.5 g/dL 30.8-34.1 N code = MCHC) RED CELL DISTRIBUTION WIDTH (test 12.6 % 11-16 N code = RDW) PLT (test code = PLT) 209 K/mm3 130-400 N MEAN PLATELET VOLUME (test code = 9.8 fL 8.9-12.1 N MPV) NEUTROPHIL % (test code = NT%) 54.7 % 45-70 N LYMPHOCYTE % (test code = LY%) 33.1 % 20-40 N MONOCYTE % (test code = MO%) 4.5 % 3-10 N EOSINOPHIL % (test code = EO%) 5.9 % 1-5 H BASOPHIL % (test code = BA%) 1.2 % 0.0-1.1 H NEUTROPHIL # (test code = NT#) 2.79 K/mm3 2.00-7.50 N LYMPHOCYTE # (test code = LY#) 1.69 K/mm3 1.50-4.00 N MONOCYTE # (test code = MO#) 0.23 K/mm3 0.2-0.8 N EOSINOPHIL # (test code = EO#) 0.30 K/mm3 0.04-0.4 N BASOPHIL # (test code = BA#) 0.06 K/mm3 0.02-0.10 N MANUAL DIFF REQUIRED (test code = NO MANUAL DIFF MDIFF) NUCLEATED RED BLOOD CELL (test 0 % 0-0 N code = NRBC) - MRI LW JNT W/O CONT [id number] 12:32:[address] : 1960 Sex: F Patient Name: YIN IBRAHIM Unit No: [id number] EXAMS: CPT CODE: [id number] MRI LW JNT W/O CONT [id number] MRI OF THE PELVIS AND HIPS WITH SPECIAL ATTENTION TO THE RIGHT HIP DIAGNOSIS: 1. Avascular necrosis is seen involving the entire right femoral head without collapse. Mild bone marrow edema is present 2. The patient is status post lefthip arthroplasty and there is a joint effusion which communicates with the trochanteric bursa. Edema is present in the left adductor muscles consistent with recent prior surgery. COMMENT: COMPARISON: No prior exams available. Scans were performed in the sagittal, axial and coronal planes utilizing T1, spin density with fat saturation,inversion recovery and T2-weighted pulse sequences. Bony abnormalities are present as noted. No tendon tears are seen. No muscle tears are identified. at 1232 Reported and signed by: Robert Cornelius MD CC: Yahir Hendrix MD Technologist: Crissy Hopkins, RT(R) Transcribed D/ (6657) Jesse [facility] NAME: YIN IBRAHIM [address] [facility] PHYS: MATVA. - Yahir Hendrix : 1960 AGE: 60 SEX: F [place] [address] LOC: Y.MRI PHONE #: [phone] EXAM DATE: 04/19/2021 STATUS: REG CLI FAX #: [phone] RAD #: D/C DT PAGE 1 Signed Report Patient Name: YIN IBRAHIM Unit No: [id number] EXAMS: CPT CODE: [id number] MRI LW JNT W/[place] [address] <Continued> Orig Print D/T: S: 04/19/2021 (8464) [facility] NAME: YIN IBRAHIM [address] [facility] PHYS: MATVA.Arianna - Yahir Hendrix : 1960 AGE: 60 SEX: F [place] [address] LOC: Y.MRI PHONE #: [phone] EXAM DATE: 04/19/2021 STATUS: REG CLI FAX #: [phone] RAD #: D/C DT PAGE 2 Signed Report- XR PELVIS 1/2 [id number] 14:31[facility]00[facility] 1960 Sex: F Patient Name: YIN IBRAHIM Unit No: [id number] EXAMS: CPT CODE: [id number] XR PELVIS 1/2 [id number] AP VIEW OF THE PELVIS. COMMENT: In progr ess total left hip arthroplasty. AP view of the pelvis COMMENT: COMPARISON: No prior exams available. Completed total left hip arthroplasty. Prosthesis appears to be in good position. at 1431 Reported and signed by: Jeremy Kruse M.D. CC: Yahir Hendrix MD Technologist: Robert Aiken(R) Transcribed D/ (1431) [facility] NAME:YIN IBRAHIM [address] [facility] PHYS: MATVA.01 - Yahir Hendrix : 1960 AGE: 60 SEX: F [place], [place] [address] LOC: Y.307 A PHONE #: [phone] EXAM DATE: 03/15/2021 STATUS: DIS IN FAX #: [phone] RAD #: D/C DT 03/16/2021 PAGE 1 Signed Report Patient Name: YIN IBRAHIM Unit No: [id number] EXAMS: CPT CODE: [id number] XR PELVIS 1/2 VIEWS 44619 <Continued> Orig Print D/T: S: 03/16/2021 (8731) [facility] NAME: YIN IBRAHIM [address] [facility] PHYS: MATVA.Arianna - Yahir Hendrix Crystal : 1960 AGE: 60 SEX: F [place], [place] [address] : Y.307 A PHONE #: [phone] EXAM DATE: 03/15/2021 STATUS: DIS IN FAX #: [phone] RAD #: D/C DT 03/16/2021 PAGE 2 Signed Report- XR PELVIS 1/2 [id number] 14:31:[address] : 1960 Sex: F Patient Name: YIN IBRAHIM Unit No: [id number] EXAMS: CPT CODE: [id number] XR PELVIS 1/2 [id number] AP VIEW OF THE PELVIS. COMMENT: In progr ess total left hip arthroplasty. AP view of the pelvis COMMENT: COMPARISON: No prior exams available. Completed total left hip arthroplasty. Prosthesis appears to be in good position. at 1431 Reported and signed by: Jeremy Kruse M.D. CC: Yahir Hendrix MD Technologist: CONOR DALTON (RT.R) Transcribed D/ (8641) AntonyJ [facility] NAME:YIN IBRAHIM [address] [facility] PHYS: MATArianna - Yahir Hendrix : 1960 AGE: 60 SEX: F [place], [place] [address] LOC: Y.307 A PHONE #: [phone] EXAM DATE: 03/15/2021 STATUS: DIS IN FAX #: [phone] RAD #: D/C DT 03/16/2021 PAGE 1 Signed Report Patient Name: YIN IBRAHIM Unit No: [id number] EXAMS: CPT CODE: [id number] XR PELVIS 1/2 VIEWS 76809 <Continued> Orig Print D/T: S: 03/16/2021 (1434) [facility] NAME: YIN IBRAHIM [address] [facility] PHYS: MATVA.01 - Yahir Hendrix : 1960 AGE: 60 SEX: F [place] [id number] : Y.307 A PHONE #: [phone] EXAM DATE: 03/15/2021 STATUS: DIS IN FAX #: [phone] RAD #: D/C DT 03/16/2021 PAGE 2 Signed ReportBASI METABOLIC [id number] 06:32:00 Test Item Value Reference Range Interpretation Comments SODIUM (test code = 139 mmol/L 136-145 N NA) POTASSIUM (test code = 4.3 mmol/L 3.5-5.1 N K) CHLORIDE (test code = 102.0 mmol/L 98-107 N CL) CARBON DIOXIDE (test 26.0 mmol/L 21-32 N code = CO2) GLUCOSE (test code = 133 mg/dL 70-110 H GLU) BLOOD UREA NITROGEN 14 mg/dL 7-18 N (test code = BUN) GLOMERULAR FILTRATION 54.7 >60 Unit o f measure: RATE (test code = GFR) mL/mi n/1.73 g0Cggudcych Range:Healthy Adults >90 mL/min/1.73 m2 For Chronic Kidney Disease: St age II Mild Decrease in GFR 60-90 St age III Moderate Decrease in GFR 30-59 Stage IV Severe Decre ase in GFR 15- 29 Stage V Kidney Failure <15 CREATININE (test code 1.03 mg/dL 0.55-1.30 N = CREAT) CALCIUM (test code = 8.2 mg/dL 8.2-10.1 N CA) HGB [id number] 06:07:00 Test Item Value Reference Range Interpretation [...] code = 0.1 {K/CMM} 0.0-0.5 EOSINOPHILS #) [facility][QL] [id number] 14:49:00 Test Item Value Reference Range Interpretation Comments IMMUNOGLOBULIN A (test code = 137 mg/dl 47-310 N IMMUNOGLOBULIN A) IMMUNOGLOBULIN G (test code = 708 mg/dl 600-1640 N IMMUNOGLOBULIN G) IMMUNOGLOBULIN M (test code = 68 mg/dl 50-300 N IMMUNOGLOBULIN M) [facility][QL] PROTEIN, TOTAL AND PROTEIN ELECTROPHORESIS 2021-03-13 14:49:00 Test Item Value Reference Range Interpretation Comments PROTEIN, TOTAL (test 6.5 g/dl 6.1-8.1 N code = PROTEIN, TOTAL) ALBUMIN (test code = 3.9 g/dl 3.8-4.8 N ALBUMIN) EEOLZ-5-PRSBXNLKA 0.4 g/dl 0.2-0.3 (test code = PFITH-1-YLGJMOMKG) ZYBFA-1-UBJANLUEQ 0.9 g/dl 0.5-0.9 N (test code = FEMCF-0-UQACCETZF) BETA 1 GLOBULIN (test 0.4 g/dl 0.4-0.6 [...] diagnosis. Alp short-1 globulin increa se noted. [facility] Coronavirus 2019 [id number] 11:21:00 Test Item Value Reference Range Interpretation [...] usingthe [employer] M2000 Sy stem under the [facility] Emergen cy UseAuthorizatio n. The testing is perf ormed by personneltraine d in the procedures for the [employer] M2000 molecular diagnostic SARS-CoV-2 assa y in vitro. Novel Coronavirus 2018 [id number] 11:21:00 Test Item Value Reference Range Interpretation [...] SARS-CoV-2 assa y in vitro. AB HIV [id number] 16:09:00 Test Item Value Reference Range Interpretation Comments AB HIV 1 (test code NONREACTIVE NONREACTIVE DONE AT: [facility] = HIV1AB) [address] [place], [place] [address]Done by [employer] [facility] 4th Gen HIV Ag/Ab C ombo Screen AB HIV 1 16:09:00 Test Item Value Reference Range Interpretation Comments AB HIV 1 2 (test NONREACTIVE NONREACTIVE Done by Janis hector [facility] code = [id number]) 4th Gen HIV Ag/Ab Combo Screen COMPREHENSIVE METABOLIC [id number] 13:20:00 Test Item Value Reference Range Interpretation [...] RATE (test code = GFR) mL/mi n/1.73 g4Zjcuimfcf Range:Healthy Adults >90 mL/min/1.73 m2 For Chronic [...] H TOTAL (test code = ALKP) PROTHROMBIN [id number] 13:20:00 Test Item Value Reference Range Interpretation [...] v dempsey IS PATIENT ON ANTICOAGULANTS ? PAas Lab been notified if Patient is on Heparin Drip? NOIf Yes, orderCBC, OCCULT BLOOD, PT every other day NTHROMBOPLASTIN TIME [id number] 13:20:00 Test Item Value Reference Range Interpretation Comments PTT ACTIVATED (test code = APTT) 31.1 secs 24.9-37.0 N IS PATIENT ON ANTICOAGULANTS ? NHas Lab [...] = NRBC) - MRI JNT W/O CONT [id number] 08:45:[address] : 1960 Sex: F Patient Name: YIN IBRAHIM Unit No: [id number] EXAMS: CPT CODE: [id number] MRI [facility] W/O CONT [id number] TECHNIQUE: Multiplanar, multisequence MRI of the pelvis/left [...] collapse. at 0845 Reported and signed by:Jeremy Kruse M.D. CC: Felix Bliss MD Technologist: EVAN TIM.MRI,CT Transcribed D/ (0845) [facility] [address] [facility] PHYS: Felix Das : 1960 AGE: 60 SEX: F [place] [address] LOC: Y.MRI PHONE #: [phone] EXAM DATE: 03/06/2021 STATUS: DEP CLI FAX #: [phone] RAD #: D/C DT PAGE 1 Signed Report Patient Name: YIN IBRAHIM Unit No: [id number] EXAMS: CPT CODE: [id number] MRI LW JNT [place] [id number] <Continued> Orig Print D/T: S: 03/07/2021 (0848) [facility] NAME: YIN IBRAHIM [address] [place] [address] PHYS: RODY ZuñigauckeyFelix Crystal : 1960 AGE: 60 SEX: F [place] [address] LOC: Y.MRI PHONE #: [phone] EXAM DATE: 03/06/2021 STATUS: DEP CLI FAX #: [phone] RAD #: D/C DT PAGE 2 Signed Report SARS-COV2/RT-PCR ([facility])2020-05-04 18:46:00 Test Item Value Reference Range Interpretation Comments SARS-COV2/RT-PCR (test code = Detected Not Detected, Negative A A [id number]) SARS-COV-2 PERFORMING LAB [facility] (test code = 8186018) Results are for the detection of SARS-CoV-2 [...] copies/mL.This SARS CoV-2 test is a rapid, fkkb-jhttFE-YJZ test intended for the qualitative detection of [...] 564(g) of the Act.Fact Sheet for Healthcare Providers:https://www.Heatmaps.FookyZ/ Documents/Xpert%20Xpress%20SARS%20CoV-2/Fact%20Sheets/747-9012%48REDF-ZRW-8%20HE ALTHCARE%20PROVIDERS%20FACT%20SHEET.pdfFact Sheet for Healthcare Patients:https://www.Heatmaps.FookyZ/Documents/Xpert%20Xpress %20SARS%20CoV-2/Fact%20Sheets/302-5901%69RXCK-ECH-0%20PATIENT%20FACT%20SHEET.pdf Performing [place] [place], [place] [address] Pelvis with Pelvis Transvaginal [id number] 09:51:00STUDY: Pelvis w Pelvis Transvaginal USCOMPARISON: None.HISTORY: - Right lower quadrant abdominal tenderness.FINDINGS:Transvaginal and transabdominal ultrasound images of the pelvis were obtained.Uterus: Has been removed.Ovaries: Have been removed.Pelvic fluid: None.IMPRESSION:Status post hysterectomy and bilateral salpingooophorectomy.Otherwise no significant abnormality.--Read by: Kelvin Lewis MDDictated Date/time: 08/23/19 10:39Electronically Signed by: Dixie Lewis 08/23/1910:40FINAL REPORTUnSevier [facility] PhysiciansUS Breast [id number] 08:22:00COMPLETE ULTRASOUND OF LEFT BREAST AND AXILLA: 08/23/2019CLINICAL: /N63.0 Unspecified Lump In Unspecified Breast. COMPARISON:Comparison is made to exam dated: 08/23/2019 mammogram - [facility]. TECHNIQUE: Color flow and real- [...] Professional services are provided by the [facility].Bashir Esparza M.D. levi/:08/23/2019 09:14:30 [employer] Installer(s): Alyx Almaraz RDMS, [facility] Fallspatient Imagingletter sent: BI-RADS 1/2 Ultrasound BI-RADS: 2 Benign--Read by: Bashir Esparza MDDictated Date/time: 08/23/19 09:14Electronically Signed by: Bashir Esparza MD 08/23/1909:14FINAL REPORT [facility] Digital Mammo DX Elbert w ed [id number] 07:40:00BILATERAL DIGITAL DIAGNOSTIC MAMMOGRAM 3D/2D WITH CAD: [...] recommended. Professional services are provided by the [facility].Bashir Esparza M.D. levi/:08/23/2019 09:13:09 Electric Mil[employer] Installer(s): [facility]Lo[facility] Hospitalpatient ImagingMammogram BI-RADS: 0 Indeterminate--Read by: Bashir Esparza MDDictated Date/time: 08/23/19 09:13Electronically Signed by: Bashir Esparza MD08/23/1909:13FINAL [facility]PORT[facility]] CULTURE, URINE, [id number] 16:33:01 Test Item Value Reference Range Interpretation Comments FINAL REPORT (test code = FINAL No Growth REPORT) [facility][O] Urine Dipstick (In Office)2019-08-18 16:32:00 Test Item Value Reference Range Interpretation Comments Glucose (test code = Glucose) neg N LEUKOCYTES (test code = LEUKOCYTES) neg N NITRITE; Normal (test code = 17789-7) neg N UROBILINOGEN; Normal (test code = 0.2 N 14593-1) PROTEIN; Normal (test code = 40638-6) neg N pH (test code = pH) 7.5 N URINE BLOOD; Normal (test code = neg N 73339-9) SPECIFIC GRAVITY; Normal (test code = 1.020 N 2965-2) KETONES; Normal (test code = 16066-0) neg N BILIRUBIN; Normal (test code = 61535-7) neg N [facility]. [facility] - Affirm VPIII (BV Panel)2019-08-09 00:00:00 Test Item Value Reference Range Interpretation Comments Affirm VPIII (BV Panel) REPORT See Comment (test code = Affirm VPIII (BV Panel) REPORT) [facility]. [facility] - GC/[id number] 00:00:00 Test Item Value Reference Range Interpretation Comments GC REPORT (test code = GC REPORT) Negative Chlamydia REPORT (test code = Negative 60674-3) [facility]
[2022-02-09 16:26] LABS: Absolute Lymphocytes (CBC) 1.6 K/uL (0.7-4.9); Hematocrit 32.4 % (36.0-45.0); Lymphocytes % 29.5 % (15.3-44.8); MPV 6.8 fL (7.6-11.3); RBC Red Blood Cell Count 3.54 M/uL (3.86-4.86)
--- NOTE | 2022-02-09 17:11 | ER ---
Nurse's Notes [facility] Name: Lydia Hanson Age: 61 yrs Sex: Female : 1960 Arrival Date: 02/09/2022 Time: 15:35 Bed 7 Private MD: Joshua Garcia Diagnosis: Cellulitis of left upper limb Presentation: 02/09 15:37 Chief complaint: Patient states: I had an IV inserted this past - now I am ld1 having redness, swelling and pain to my left wrist/forearm. Coronavirus screen: At this time, the client does not indicate any symptoms associated with coronavirus-19. Ebola Screen: No symptoms or risks identified at this time. Initial Sepsis Screen: Does the patient meet any 2 criteria? No. Patient's initial sepsis screen is negative. Does the patient have a suspected source of infection? No. Patient's initial sepsis screen is negative. Risk Assessment: Do you want to hurt yourself or someone else? Patient reports no desire to harm self or others. Onset of symptoms was February 09, 2022. 15:37 Method Of Arrival: Ambulatory ld1 15:37 Acuity: RIA 3 ld1 Triage Assessment: 15:39 General: Appears in no apparent distress. comfortable, Behavior is calm, cooperative, ld1 appropriate for age. Pain: Complains of pain in dorsal aspect of left forearm and left wrist Pain does not radiate. Pain currently is 8 out of 10 on a pain scale. Quality of pain is described as throbbing, Pain began gradually, Is continuous. EENT: No signs and/or symptoms were reported regarding the EENT system. Neuro: Level of Consciousness is awake, alert, obeys commands, Oriented to person, place, time, situation. Respiratory: Airway is patent Respiratory effort is even, unlabored, Respiratory pattern is regular, symmetrical. Derm: redness, swelling to left wrist/forearm. Historical: - Allergies: 15:39 Adhesives; ld1 15:39 CEPHALOSPORINS; ld1 15:39 Codeine; ld1 15:39 Latex, Natural Rubber; ld1 15:39 PENICILLINS; ld1 15:39 TETRACYCLINES; ld1 - PMHx: 15:39 CKD; Hyperlipidemia; V-tach; Thyroid problem; Hypertension; Depression; Sleep Apnea; ld1 narcolepsy; L hip replacement; - PSHx: 15:39 hysterectomy; Cholecystectomy; ld1 - Immunization history:: Adult Immunizations up to date, Client reports receiving the 2nd dose of the Covid vaccine. - Social history:: Smoking status: Patient denies any tobacco usage or history of. Patient/guardian denies using alcohol. Screenin:46 Abuse screen: Denies threats or abuse. Denies injuries from another. Nutritional short screening: No deficits noted. Tuberculosis screening: No symptoms or risk factors identified. Fall Risk None identified. Assessment: 15:46 General: Appears in no apparent distress. Behavior is calm, cooperative. Pain: short Complains of pain in left arm. Derm: Skin is flushed. Vital Signs: 15:37 BP 179 / 85; Pulse 63; Resp 17; Temp 97.0; Pulse Ox 98% on R/A; Weight 89.81 kg; Height ld1 5 ft. 7 in. (170.18 cm); Pain 8/10; 15:37 Body Mass Index 31.01 (89.81 kg, 170.18 cm) ld1 ED Course: 15:35 Patient arrived in ED. am2 15:35 Naye Nieto FNP-C is [facility]. kb 15:35 Michi Diaz MD is Attending Physician. kb 15:35 Joshua Garcia MD is Private Physician. am2 15:39 Triage completed. ld1 15:39 Arm band placed on right wrist. ld1 15:46 Rolanda Godoy, RN is Primary Nurse. short 15:46 Patient has correct armband on for positive identification. Bed in low position. short 15:46 No provider procedures requiring assistance completed. short 16:08 Accessed [facility]. short 16:15 CBC with Diff Sent. mb7 16:15 Basic Metabolic Panel Sent. mb7 16:16 Lactate Sent. mb7 17:06 US Extremity Venous Unilateral Ltd In Process Unspecified. EDMS 17:11 Joshua Garcia MD is Referral Physician. kb 17:31 IV discontinued, intact. ss Administered Medications: 17:30 Drug: Bactrim (trimethoprim-sulfamethoxazole) (160 mg-800 mg (DS) 1 tablet Route: PO; ss 17:30 Follow up: Response: No adverse reaction ss Outcome: 17:11 Discharge ordered by . kb 17:31 Discharged to home ss 17:31 Condition: good 17:31 Discharge instructions given to Prescriptions given X 1. 17:32 Patient left the ED. Signatures: Dispatcher [employer] EDMS Naye Nieto, PENELOPE SILVERIO-Corinne Vieyra RN RN Emilie Victor Lauren, RN RN ld1 Lydia Ayala mb7 Rolanda Godoy RN RN short
--- NOTE | 2022-02-09 17:11 | EDPHYS ---
Physician Documentation [facility] Name: Lydia Hanson Age: 61 yrs Sex: Female : 1960 Arrival Date: 02/09/2022 Time: 15:35 Bed 7 Private MD: Joshua Garcia ED Physician Michi Diaz HPI: 02/09 16:34 This 61 yrs old Female presents to ER via Ambulatory with complaints of Arm Problem - kb swelling. 16:35 The patient presents with cellulitis of the left forearm. Description: erythematous, kb swollen. Onset: The symptoms/episode began/occurred yesterday. Possible cause(s): iv insertion. Associated signs and symptoms: Pertinent positives: erythema, swelling, Pertinent negatives: discharge, drainage, foreign body sensation, fever, headache, nausea, shortness of breath, vomiting. Modifying factors: the symptoms are alleviated by nothing, the symptoms are aggravated by nothing. Severity of symptoms: At their worst the symptoms were mild, in the emergency department the symptoms are unchanged. The patient has not experienced similar symptoms in the past. The patient has not recently seen a physician. Pt states she had an IV infusion of ketamine on . STates they had trouble with the IV insertion. Woke up Friday with redness, swelling and pain to left forearm where IV was inserted. States the redness has been moving up the forearm. . Historical: - Allergies: 15:39 Adhesives; ld1 15:39 CEPHALOSPORINS; ld1 15:39 Codeine; ld1 15:39 Latex, Natural Rubber; ld1 15:39 PENICILLINS; ld1 15:39 TETRACYCLINES; ld1 - PMHx: 15:39 CKD; Hyperlipidemia; V-tach; Thyroid problem; Hypertension; Depression; Sleep Apnea; ld1 narcolepsy; L hip replacement; - PSHx: 15:39 hysterectomy; Cholecystectomy; ld1 - Immunization history:: Adult Immunizations up to date, Client reports receiving the 2nd dose of the Covid vaccine. - Social history:: Smoking status: Patient denies any tobacco usage or history of. Patient/guardian denies using alcohol. ROS: 16:33 Constitutional: Negative for fever, chills, and weight loss. kb 16:33 MS/extremity: Positive for erythema, pain, swelling, tenderness, of the dorsal aspect of left forearm. 16:33 Skin: Positive for erythema, swelling, of the left forearm. 16:33 All other systems are negative. Exam: 16:34 Constitutional: This is a well developed, well nourished patient who is awake, alert, kb and in no acute distress. Head/Face: Normocephalic, atraumatic. ENT: Moist Mucous membranes Respiratory: Respirations even and unlabored. No increased work of breathing. Talking in full sentences MS/ Extremity: Pulses equal, no cyanosis. Neurovascular intact. Full, normal range of motion. Neuro: Awake and alert, GCS 15, oriented to person, place, time, and situation. Moves all extremities. Normal gait. Psych: Awake, alert, with orientation to person, place and time. Behavior, mood, and affect are within normal limits. 16:34 Skin: cellulitis, that is mild, on the left forearm. Vital Signs: 15:37 BP 179 / 85; Pulse 63; Resp 17; Temp 97.0; Pulse Ox 98% on R/A; Weight 89.81 kg; Height ld1 5 ft. 7 in. (170.18 cm); Pain 8/10; 15:37 Body Mass Index 31.01 (89.81 kg, 170.18 cm) ld1 MDM: 15:35 Patient medically screened. kb 16:34 Data reviewed: vital signs, nurses notes. Data interpreted: Pulse oximetry: on room air kb is 98 %. Interpretation: normal. 17:10 Counseling: I had a detailed discussion with the patient and/or guardian regarding: the kb historical points, exam findings, and any diagnostic results supporting the discharge/admit diagnosis, lab results, radiology results, the need for outpatient follow up, a family practitioner, to return to the emergency department if symptoms worsen or persist or if there are any questions or concerns that arise at home. Physician consultation: Joshua Garcia MD was contacted at 17:10, regarding consult, patient's condition, and will see patient in office. 02/09 15:40 Order name: CBC with Diff; Complete Time: 16:31 kb 02/09 15:40 Order name: Basic Metabolic Panel; Complete Time: 16:38 kb 02/09 15:40 Order name: Blood Culture Adult (2) kb 02/09 15:40 Order name: Procal; Complete Time: 17:00 kb 02/09 15:40 Order name: Lactate; Complete Time: 16:38 kb 02/09 15:40 Order name: US Extremity Venous Unilateral Ltd; Complete Time: 17:17 kb 02/09 15:40 Order name: IV Start; Complete Time: 16:56 kb Administered Medications: 17:30 Drug: Bactrim (trimethoprim-sulfamethoxazole) (160 mg-800 mg (DS) 1 tablet Route: PO; ss 17:30 Follow up: Response: No adverse reaction ss Disposition: 18:08 Co-signature as Attending Physician, Michi Diaz MD. rn Disposition Summary: 02/09/22 17:11 Discharge Ordered Location: Home kb Condition: Stable kb Diagnosis - Cellulitis of left upper limb kb Followup: kb - With: Emergency Department - When: As needed - Reason: Worsening of condition Followup: kb - With: Joshua Garcia MD - When: 2 - 3 days - Reason: Recheck today's complaints, Continuance of care, Re-evaluation by your physician Discharge Instructions: - Discharge Summary Sheet kb - Cellulitis, Adult, [id number] kb Forms: - Medication Reconciliation Form kb - Thank You Letter kb - Antibiotic Education kb - Prescription Opioid Use kb Prescriptions: - Bactrim DS 800-160 mg Oral Tablet - take 1 tablet by ORAL route every 12 hours for 7 days; 14 tablet; Refills: 0, kb Product Selection Permitted Signatures: Dispatcher [employer] Naye Martinez, HEAD ROSE GROWER-C HEAD ROSE GROWER-Ckb Michi Diaz MD MD rn Smirch, Shelby, RN RN ss Halie Olvera RN RN ld1
--- NOTE | 2022-02-09 17:15 | RAD REPORT ---
EXAM DESCRIPTION: US - Extremity Venous Uni Ltd - 02/09/2022 5:04 pm CLINICAL HISTORY: Left arm pain and swelling COMPARISON: None. TECHNIQUE: Real-time sonographic evaluation of the left upper extremity deep venous systems was perf ormed. FINDINGS: Normal compressibility, flow augmentation, phasic flow and spontaneous flow are identified in the left upper extremity deep venous system. No intraluminal filling defects seen. Internal jugul ar and subclavian veins are normal as well. IMPRESSION: No DVT in the left upper extremity.
[2022-02-09] MEDS ORDERED: SMZ./TMP. 800/160 MG TABLET ONE (17:22)
[2022-02-09 17:36] VITALS: BP 179/85; TEMP 97; O2SAT 98
== END 2022-02-09 17:32 | disposition home or self-care (01) ==
LOC: ER 15:30
DX: L03.114 Cellulitis of left upper limb (principal); I12.9 Hypertensive chronic kidney disease with stage 1 through stage 4 chronic kidney disease, or unspecified chronic kidney disease; N18.9 Chronic kidney disease, unspecified; Z88.0 Allergy status to penicillin; Z88.1 Allergy status to other antibiotic agents; Z88.3 Allergy status to other anti-infective agents; Z91.040 Latex allergy status; Z91.048 Other nonmedicinal substance allergy status
CPT/HCPCS: 36415; 80048; 83605; 84145; 85025; 87040; 93971; 99284

== ENCOUNTER 2022-10-01 14:28 | Inpatient (IN) | payer BC, OTHER ==
[2022-10-01 15:16] LABS: SARS-CoV-2 Antigen Rapid Res Negative (Negative)
--- OUTSIDE RECORDS SUMMARY | 2022-10-01 15:38 | XMS REPORT | Continuity of Care Document ---
:1960 Author Organization [facility] t Address [address] [place] [address] Care Team Providers Name Role Phone Joshua Garcia Primary Care Physician Felix Bliss Attending Clinician Unavailable JOAQUIM PARRISH Attending Clinician Unavailable Raphael Padilla RN Attending Clinician Unavailable MIKA SONI Attending Clinician Unavailable Mika Soni MD Attending Clinician Mary Ryan MA Attending Clinician Unavailable Briseida Lopez MD Attending Clinician Lolly Allen MA Attending Clinician Unavailable Todd Travis MD Attending Clinician [phone] Martha Attending Clinician Unavailable Chase Peters RN Attending Clinician Unavailable Remi Garcia MD Attending Clinician Doc Mccabe DO Attending Clinician [phone] Felix Bliss Attending Clinician [phone] Baldemar Epperson Attending Clinician [phone] Sebastián Attending Clinician Unavailable Baldemar Del Cid MD Attending Clinician Baldemar Epperson Attending Clinician Unavailable Akiko Luong MA Attending Clinician Unavailable Mayco Langford MD Attending Clinician Deny Oneal Attending Clinician Vitaliy SCHMIDT, Unique Partida Attending Clinician MD MAYCO LANGFORD Attending Clinician Unavailable Yahir Hendrix Attending Clinician Unavailable Carroll Avendano MA Attending Clinician Unavailable Shawn SCHMIDT, Royce Suazo Attending Clinician Steve Townsend MD Attending Clinician ADULT, THROMBOSIS Attending Clinician Unavailable Arpan SCHMIDT, Robert Kee Attending Clinician Marissa Gamboa Attending Clinician Deon Bella MD Attending Clinician Provider, Unknown Attending Clinician Unavailable Lab, Adc Fam Pob I Attending Clinician Unavailable Max Bowser Attending Clinician MAX MENDEZ Attending Clinician Unavailable Doctor Unassigned, [place] Attending Clinician Unavailable LUCAS MCKEON M.D. Attending Clinician Unavailable MD ROYCE GIBBONS Attending Clinician Unavailable SIL RAGLAND Attending Clinician Unavailable KARIN HAYWARD M.D. Attending Clinician Unavailable ELIOT ROPER M.D. Attending Clinician Unavailable Felix Bliss Admitting Clinician Unavailable MIKA SONI Admitting Clinician Unavailable Mika Soni MD Admitting Clinician MADISON_Zhou_Skylar Admitting Clinician Unavailable MADISON_Chani Admitting Clinician Unavailable Baldemar Epperson Admitting Clinician Unavailable Yahir Hendrix Admitting Clinician Unavailable MAYCO LANGFORD Admitting Clinician Unavailable MD MAYCO LANGFORD Admitting Clinician Unavailable UNDEFINED Admitting Clinician Unavailable ROYCE GIBBONS Admitting Clinician Unavailable MD ROYCE GIBBONS Admitting Clinician Unavailable Payers Payer Name Policy Type Policy Number Effective Date [facility]piration Date [id number] 2016 00:00:00 [place] [id number] 2016 [place] 00:[place]:00 [place] [id number] 2017 [place] [employer] 00:00:00 Problems Condition Condition Condition Status Onset Resolution Last Treating Co mments Source Name Details Category Date Date Treatment Clinician Date Coronary Coronary Disease Active 2021-11 Overview: Un raymundo artery artery 11-28 Formattin ity of disease disease 00:00: g of this [place] involving involving 00 note Medi nikos pokagon pokagon might be Branch coronary coronary different artery of artery of from the pokagon pokagon original. heart heart 2019:Sangeeta without without nary angina angina Findings pectoris pectoris Diagnosti c Dominance : LeftLeft Anterior Descendin g: Prox LAD lesion is 30% stenosed. CAP CAP Disease Active 2021-11 Univers (community (community -19 it y of acquired acquired 00:00: [place] pneumonia) pneumonia) 00 Me dical Branch SOB SOB Disease Active 2021-11 Univers (shortness (shortness -19 it y of of breath[place] breath[place] Mild Mild Disease Recurre 2021-11 Univers persistent persistent nce 19 it y of asthma asthma 00:00: [place] without without 00 Medical complicati complicati Br anch on on Pain in Pain in Problem Active 2021-11 Nathalie right hip Right Hip 0-25 Orth ope joint Joint 00:00: dic 00 Sports Medicin e Stenosis Stenosis Problem Active [facility] a of of 7-20 Orthope interverte Interverte 00:00: di c bral bral 00 Sports foramina Foramina Medici n e Lumbar Lumbar Problem Active Nathalie radiculopa Radiculopa 7-20 Or thope thy thy 00:00: dic 00 Sports Medicin e Lumbar Lumbar Problem Active Nathalie spondylosi Spondylosi 7-13 Or thope s s 00:00: dic 00 Sports Medicin e Low back Low Back Problem Active [facility] a pain Pain 7-13 Orthope 00:00: dic 00 Sports Medicin e Osteoarthr Osteoarthr Problem Active A zalea itis of itis of 5-03 Orthope right knee Right Knee 00:00: di c joint Joint 00 Sports Medicin e Localized, Localized, Problem Active A zalea primary Primary 2-14 Orthope osteoarthr Osteoarthr 00:00: di c itis itis 00 Sports Medicin e Prosthetic Prosthetic Problem Active 2020-11 A [facility]alea arthroplas Arthroplas 0-19 Or thope ty of the ty of the 00:00: dic hip Hip 00 Sports Medicin e Closed Closed Problem Active 2020-11 Nathalie fracture Fracture 0-04 Orthop e of shaft of Shaft 00:00: dic of right of Right 00 Sports femur Femur Medicin e Community- Community- Problem Active A [facility]alea acquired acquired 9-30 Orthop e methicilli Methicilli 00:00: di c n-resistan n-resistan 00 Sp orts t t Medicin Staphyloco Staphyloco e ccus ccus aureus Aureus infection Infection Infection Infection Problem Active Aza yeni associated Associated 9-30 Or thope with with 00:00: dic prosthesis Prosthesis 00 Sp orts of right of Right Medici n knee joint Knee Joint e Infected Infected Problem Active [facility] a prosthesis Prosthesis 9-30 Or thope of right of Right 00:00: dic hip Hip 00 Sports Medicin e Periprosth Periprosth Disease Active M ethodi etic etic 9-27 st fracture fracture 00:00: Hospit a of shaft of shaft 00 l of femur of femur Greater Greater Problem Active Nathalie trochanter Trochanter 8-30 Or thope ic pain ic Pain 00:00: dic syndrome Syndrome 00 Sports Medicin e Dehiscence Dehiscence Problem Active A zalea of of 8-30 Orthope internal Internal 00:00: dic surgical Surgical 00 Sports wound Wound Medicin e Hip pain Hip Pain Problem Active [facility] a 8-19 Orthope 00:00: dic 00 Sports Medicin e Situation Situation Problem Active Aza yeni with with 7-27 Orthope explicit Explicit 00:00: dic context Context 00 Sports Medicin e Osteoarthr Osteoarthr Problem Active A zalea itis of itis of 7-12 Orthope hip Hip 00:00: dic 00 Sports Medicin e CAD in CAD in Disease Active Methodi pokagon pokagon 6-15 st artery artery 00:00: Hospita 00 l Stenosis Stenosis Problem Active [facility] a of spinal of Spinal 6- Orth ope canal due Canal Due 00:00: dic to bone to Bone 00 Sports Medicin e Stenosis Stenosis Problem Active [facility] a of spinal of Spinal 04-10 Orth ope canal due Canal Due 00:00: dic to to 00 Sports connective Connective Me dicin tissue Tissue e 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 5-21 Orthop e of head of Head 00:00: dic AND/OR AND/OR 00 Sports neck of Neck of Medicin femur Femur e Implantati Implantati Problem Active A zalea on of on of 03-30 Orthope joint Joint 00:00: dic prosthesis Prosthesis 00 Sp orts Medicin e Situation Situation Problem Active Aza yeni with with 5-21 Orthope explicit Explicit 00:00: dic context Context 00 Sports Medicin e Hypertensi Hypertensi Problem Active A zalea ve ve 4-27 Orthope disorder Disorder 00:00: dic 00 Sports Medicin e Pain of Pain of Problem Active Nathalie right Right 4-20 Orthope shoulder Shoulder 00:00: dic joint Joint 00 Sports Medicin e Angina Angina Disease Active Overview: Method i pectoris pectoris 08-[address] 00:00: g of this Hospita 00 note l might be different from the original. 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 03-08 00:00: Hospita 00 l Major Major Disease Active Overview: Method i depressive depressive 03-08tin st disorder, disorder, 00:00: g of this [...] dism dism 03-02 00:00: Hospita 00 l Injury of Injury of Problem Active 2012-11 Aza yeni cutaneous Cutaneous 11-16 Orth ope sensory Sensory 00:00: dic nerve of Nerve of 00 Sports upper limb Upper Limb Me dicin e Carpal Carpal Problem Active Nathalie tunnel Tunnel 07-27 Orthope syndrome Syndrome 00:00: dic 00 Sports Medicin e Synovitis Synovitis Problem Active Aza yeni 07-27 Orthope 00:00: dic 00 Sports Medicin e Sprain of Sprain of Problem Active Aza yeni radiocarpa Radiocarpa 07-27 Or thope l ligament l Ligament 00:00: di c 00 Sports Medicin e GERD GERD Disease Active Methodi (gastroeso (gastroeso st phageal phageal Hospita reflux reflux l disease) disease) History of History of Problem Resolve [facility] depression depression d Ph ysici ans History of History of Problem Resolve [facility] asthma asthma d Physici ans History of History of Problem Resolve [facility] Benign Benign d Physici hypertensi hypertensi an s on with on with CKD CKD (chronic (chronic kidney kidney disease) disease) stage III stage III History of History of Problem Resolve UT Gastric Gastric d Physici reflux reflux ans History of History of Problem Resolve UT High High d Physici triglyceri triglyceri an s rebekah rebekah History of History of Problem Resolve UT hyperthyro hyperthyro d Ph ysici idism idism ans History of History of Problem Resolve UT hypertensi hypertensi d Ph ysici on on ans History of History of Problem Resolve UT kidney kidney d Physici problems problems ans History of History of Problem Resolve UT pneumonia pneumonia d Phys ici ans History of History of Problem Resolve UT psychiatri psychiatri d Ph ysici c c ans treatment treatment History of History of Problem Resolve UT Skin Skin d Physici cancer of cancer of ans face face History of History of Problem Resolve UT Mixed Mixed d Physici stress and stress and an s urge urge urinary urinary incontinen incontinen ce ce History of History of Problem Resolve UT Vaginal Vaginal d Physici atrophy atrophy ans Rheumatoid Rheumatoid Problem Active U T arthritis arthritis Phys ici ans CKD CKD Problem Active UT (chronic (chronic Physic i kidney kidney ans disease), disease), stage III stage III Recurrent Recurrent Problem Active UT bacterial bacterial Phys ici infection infection ans History of History of Problem Resolve UT breast breast d Physici lump lump ans History of History of Problem Active U T DVT of DVT of Physici lower lower ans extremity extremity History of History of Problem Resolve UT 3 3 d Phys ici para 3 para 3 ans History of History of Problem Resolve UT iron iron d Physici deficiency deficiency an s anemia anemia History of History of Problem Resolve UT Narcolepsy Narcolepsy d Ph ysici ans Avascular Avascular Problem Active UT necrosis necrosis Physic i of hip of hip ans Allergies, Adverse Reactions, Alerts Allergy Allergy Status Severity Reaction(s) Onset Inactive Treating Comm ents Source Name Type Date Date Clinician CEPHALOS Drug Active Unknown-Cmnt 2021-11 Un raymundo PORINS Class -19 ity of 00:00: [place] 00 Medical Branch CODEINE DRUG Active Unknown-Cmnt 2021-11 Uni vers INGREDI 11-28 ity of 00:00: 00 Medical Branch PENICILL DRUG Active Rash 2021-11 Univers IN INGREDI 11-28 ity of 00:00: [place] 00 Medical Branch TETRACYC DRUG Active Anaphylaxis 2021-11 Uni vers LINE INGREDI 11-28 ity of 00:00: 00 Medical Branch Cephalos Propensi Active Unknown - 2021-11 Anaphylac Univers porins ty to See comments 1-19 tic ity of adverse 00:00: Reaction [place] reaction 00 Medical s Branch Codeine Propensi Active Unknown - 2021-11 Univ ers ty to See comments -19 ity of adverse 00:00: [place] reaction 00 Medical s Branch Penicill Propensi Active Rash 2021-11 Univer s in ty to 11-28 ity of adverse 00:00: [place] reaction 00 Medical s Branch Tetracyc Propensi Active Anaphylaxis 2021-11 U nivers line ty to 11-28 ity of adverse 00:00: [place] reaction 00 Medical s Branch Penicill DA Active SV RASH [facility] ins 07-04 [place] 00:00: Orthope 00 dic Hospita l Cephalos DA Active SV ANAPHYLAXIS 2-0 [facility] porins 07-04 [place] 00:00: Orthope 00 dic Hospita l codeine DA Active SV ITCHING 2-0 [facility] 07-04 [place] 00:00: Orthope 00 dic Hospita l tetracyc DA Active SV ANAPHYLAXIS 2-0 [facility] line 07-04 [place] 00:00: Orthope 00 dic Hospita l adhesive DA Active SV RASH,BLISTER 2021-0 HC A tape S 07-04 [place] 00:00: Orthope 00 dic Hospita l latex DA Active MO BLISTERING; 2021-0 [facility] RASH 07-04 [place] 00:00: Orthope 00 dic Hospita l Penicill DA Active SV 2020-0 [facility] ins 8 [facility] 00:00: Hospita 00 l of [place] Cephalos DA Active SV 1-0 [facility] porins 07-09 [facility] 00:00: Hospita 00 l of [place] codeine DA Active SV 1-0 [facility] 07-09 [facility] 00:00: Hospita 00 l of [place] tetracyc DA Active SV 1-0 [facility] line 07-09 Woman's 00:00: Hospita 00 l of [place] adhesive DA Active SV 1-0 [facility] tape 07-09 Woman[facility] 00:00: Hospita 00 l of [place] latex DA Active MO 1-0 HCA 8- Woman's 00:00: Hospita 00 l of [place] Penicill DA Active SV RASH 1-0 [facility] ins 8 Woman's 00:00: Hospita 00 l of [place] Cephalos DA Active SV ANAPHYLAXIS 1-0 [facility] porins 07-09 Woman's 00:00: Hospita 00 l of [place] codeine DA Active SV ITCHING 1-0 H[facility] 8-30 Woman's 00:00: Hospita 00 l of [place] tetracyc DA Active SV ANAPHYLAXIS 1-0 H[facility] line 8 Woman's 00:00: Hospita 00 l of [place] adhesive DA Active SV RASH,BLISTER 1-0 HC A tape S 07-09 Woman's 00:00: Hospita 00 l of [place] latex DA Active MO BLISTERING; 2020-0 [facility] RASH 30 Woman's 00:00: Hospita 00 l of [place] STEROID DA Active SV DEPRESSION 1-0 [facility] 8- Woman's 00:00: Hospita 00 l of [place] Penicill DA Active SV 2020-0 [facility] ins 7-12 Clear 00:00: [facility] Cephalos DA Active SV 1-0 HCA porins 7-12 Clear 00:00: [facility] codeine DA Active SV 1-0 HCA 7-12 Clear 00:00: [facility] tetracyc DA Active SV 2020-0 [facility] line 7-12 Clear 00:00: [facility] adhesive DA Active SV 2020-0 HCA tape 7-12 Clear 00:00: [facility] Penicill DA Active SV RASH 2020-0 [facility] ins 7-12 Clear 00:00: [facility] Cephalos DA Active SV ANAPHYLAXIS 2020-0 H[facility] porins 7-12 Clear 00:00: [facility] codeine DA Active SV ITCHING 2020-0 H[facility] 7-12 Clear 00:00: [facility] tetracyc DA Active SV ANAPHYLAXIS 2020-0 [facility] line 7-12 Clear 00:00: [facility] adhesive DA Active SV RASH,BLISTER 2020-0 HC A tape S 7-12 Clear 00:00: [facility] adhesive DA Active SV 2020-0 HCA tape 6-18 Clear 00:00: [facility] STEROID DA Active SV MENTAL 2020-0 [facility] ISSUES 6-18 Clear 00:00: [facility] adhesive DA Active SV RASH,BLISTER 1-0 HC A tape S 6-18 Clear 00:00: [facility] Penicill DA Active SV 1-0 H[facility] ins 5-06 Clear 00:00: [facility] Cephalos DA Active SV 1-0 HCA porins 5-06 Clear 00:00: [facility] codeine DA Active SV 1-0 HCA 5-06 Clear 00:00: [facility] tetracyc DA Active SV 1-0 HCA line 5-06 Clear 00:00: [facility] latex DA Active MO 1-0 HCA 5-06 Clear 00:00: [facility] Penicill DA Active SV RASH 1-0 [facility] ins 5-06 Clear 00:00: [facility]rim 00 [facility] Cephalos DA Active SV ANAPHYLAXIS HCA porins 5-06 Clear 00:00: Saleem 00 [facility] codeine DA Active SV ITCHING 2020- [facility] 5-06 Clear 00:00: Saleem 00 [facility] tetracyc DA Active SV ANAPHYLAXIS 2020-0 [facility] line 5-06 Clear 00:00: [facility] latex DA Active MO BLISTERING; H[facility] RASH 5-06 Clear 00:00: Saleem 00 [facility] Cephalos DA Active SV 2020- H[facility] porins 4-30 Clear 00:00: [facility] Cephalos DA Active SV ANAPHYLAXIS HCA porins 4-30 Clear 00:00: [facility] tetracyc DA Active SV ANAPHYLAXIS HCA line 4-30 Clear 00:00: [facility] latex DA Active MO BLISTERING; H[facility] RASH 4-30 Clear 00:00: [facility] tetracyc DA Active SV 2020- [facility] line 4-30 Clear 00:00: [facility] latex DA Active MO 2020- HCA 4-30 Clear 00:00: [facility] Adhesive Propensi Active Rash 2019-11 Port site Met hodi ty to 0-[address] adverse 00:00: with Hospita reaction 00 Tegaderm l s to Film drug dressing, site red and irritated . Patient reports blister type formation had formed and since broken open. Film carefully removed and covered with telfa dressing. Redness diminishi ng patient states feels much improved after observing her for 10 min. CEPHALOS Allergy Active Nathalie PORINS to 07-29 Orthope substanc 00:00: dic e 00 Sports Medicin e Codeine Allergy Active Nathalie to 07-29 Orthope substanc 00:00: dic e 00 Sports Medicin e Penicill Allergy Active Nathalie in g to 07-29 Orthope substanc 00:00: dic e 00 Sports Medicin e Tetracyc Allergy Active Nathalie line to 07-29 Orthope substanc 00:00: dic e 00 Sports Medicin e Latex Propensi Active Other (See 2017-0 blisters Me thodi ty to Comments) 3-15 [...] Active Itching Method i ty to 03-02 adverse 00:00: Hospita reaction 00 l s to drug Penicill Propensi Active Rash Method i ins ty to 03-02 adverse 00:00: Hospita reaction 00 l s to drug Tetracyc Propensi Active Anaphylaxis 2015- M ethodi line ty to 03-02 adverse 00:00: Hospita reaction 00 l s to drug Cephalos Propensi Active Anaphylaxis 2015- Most M ethodi porins ty to 03-02 likely adverse 00:00: Keflex Hospita reaction 00 500mg per l s to patient. drug Facial rash, hives, admitted to ICU Penicill Propensi Active Rash Method i ins ty to 03-02 adverse 00:00: Hospita reaction 00 l s to drug Minocycl Allergy Active 2012-11 Nathalie ine to 11-17 Orthope substanc 00:00: dic e 00 Sports Medicin e Nucynta Allergy Active 2012-11 Nathalie to 11-17 Orthope substanc 00:00: dic e 00 Sports Medicin e Penicill DA Active SV [facility] ins 08-06 Clear 00:00: [facility] Penicill DA Active SV RASH [facility] ins 08-06 Clear 00:00: [facility] codeine DA Active SV ITCHING HCA 08-06 Clear 00:00: [facility] codeine DA Active SV HCA 08-06 Clear 00:00: [facility] PENICILL Allergy Active Nathalie IN to 07-27 Orthope substanc 00:00: dic e 00 Sports Medicin e Cephalos Allergy Active UT porins to drug Physici (finding ans ) Codeine Allergy Active UT Derivati to drug Physici ves (finding ans ) Penicill Allergy Active UT ins to drug Physici (finding ans ) Latex Allergy Active UT to Physici substanc ans e (finding ) tetracyc Allergy Active UT line to drug Physici (finding ans ) NO KNOWN Drug Active Univers ALLERGIE Class ity of S [place] [facility] Family History Family Member Diagnosis Comments Start Date Stop Date Source Mother Family history of [facility] Phys icians diabetes mellitus Father Family history of [facility] Phys icians Mesothelioma Brother Family history of [facility] Phys icians malignant melanoma Brother Family history of [facility] Phys icians hypertension Sister Family history of [facility] Phys icians hypertension Sister Family history of [facility] Phys icians systemic lupus erythematosus Sister Family history of [facility] Phys icians deep venous thrombosis Natural brother Drug abuse [facility] Natural father Cancer [facility] Natural mother Depression [facility] Paternal COPD [facility] Social History Social Habit Start Date Stop Date Quantity Comments Source Exposure to Not sure University of SARS-CoV-2 [facility] [place] [facility] (event) Branch History SDOH [facility] l [facility] Drinks History SDOH [facility] Alcohol intake 2022-09-17 2022-09-17 Current drinker [facility] dist 00:00:00 00:00:00 [facility] (finding) Tobacco use and 2022-08-14 2022-08-14 Smokeless tobacco [facility] exposure 00:00:[facility]:00 non-user Hospital Alcohol Comment 2021-08-06 2021-08-06 pt states about 4 [facility] 00:00:00 00:00:00 drinks a month Hospital Sex Assigned At [birth year] [facility] 00[facility] Smoking Status Start Date Stop Date Source Never smoked tobacco [facility] Medications Ordered Filled Start Stop Current Ordering Indication Dosage Frequency Signature Comments Components Source Medication Medication Date Date Medication? Clinician (SIG) Name Name predniSONE 2021-11 Yes [id number] 40mg Take 2 Univers 20 mg 1-21 tablets by ity of tablet 00:00: mouth in [place] 00 the Medical morning. Branch predniSONE 2021-11 Yes [id number] 40mg Take 2 Univers 20 mg 1-21 tablets by ity of tablet 00:00: mouth in [place] [address] the Medical morning. Branch fluticasone 2021-11 Yes 2{puff} 2 Puff, Univers propionate 1-20 Inhalation ity of (FLOVENT 15:30: , Q12H, [facility]) 220 00 First dose Medic al mcg/actuati on Sun Branch on inhaler 09/29/22 2 Puff at 0930, Until Discontinu ed, Routine
Is this order for a patient with suspected or confirmed COVID-19 infection? No
Does this order have Pulmonary/ Critical Care approval? Yes predniSONE 2021-11- Yes 40mg 40 mg, Univ ers (DELTASONE) 1-20 - Oral, ity of tablet 40 15:30: 14:59 DAILY, 3 Jairo as mg 00 :00 doses, Medical First dose Branch on 09/29/22 at 0930, Last dose on Fri10/01/22 at 0900, Routine montelukast 2021-11 Yes 10mg Take 10 mg Univers 10 mg 1-20 by mouth. ity of tablet 15:19: [place] [address] Medical Branch levothyroxi 2021-11 Yes 50ug Take 50 Uni vers ne (LEVO-T) 1-20 mcg by ity of 50 mcg 15:19: mouth [facility] 26 every Medical morning. Branch nebivoloL 2021-11 Yes 5mg Take 5 mg Uni vers (BYSTOLIC) 1-20 by mouth ity o f 5 mg tablet 15:19: in the [facility] morning. Medical Branch prazosin 1 2021-11 Yes 1mg Take 1 mg Un raymundo mg capsule 1-20 by mouth ity o f 15:19: every 8 [place] [address] (eight) Medical hours. Branch zolpidem 2021-11 Yes 10mg Take 10 mg Uni vers (AMBIEN) 10 1-20 by mouth ity of mg tablet 15:19: [place] needed Medical for Branch Insomnia. DULoxetine 2021-11 Yes 120mg Take 120 Un raymundo 60 mg CDRS 1-20 mg by ity of 15:19: mouth. [place] [address] Medical Branch ARIPIPRAZOL 2021-11 Yes 5mg Take 5 mg U nivers E ORAL 1-20 by mouth. ity of 15:19: [place] [address] Medical Branch BUPROPION 2021-11 Yes 150mg Take 150 Uni vers HCL ORAL 1-20 mg by ity of 15:19: mouth. [place] [address] Medical Branch omeprazole 2021-11 Yes 40mg Take 40 mg U nivers 20 mg 1-20 by mouth ity of capsule 15:19: in the [place] [address] morning. Medical Branch ondansetron 2021-11 Yes 4mg Take 4 mg U nivers (ZOFRAN) 4 1-20 by mouth ity o f mg tablet 15:19: every 8 [place] [address] (eight) Medical hours as Branch needed. rosuvastati 2021-11 Yes Take by Uni vers n (CRESTOR) 1-20 mouth ity of 5 mg tablet 15:19: daily. [place] [address] Medical Branch hydroxychlo 2021-11 Yes 200mg Take 200 U nivers roquine 1-20 mg by ity of sulfate 15:19: mouth 2 [place] ([place] [id number] (two) Medical OROQUINE times Branch ORAL) daily. ezetimibe 2021-11 Yes 10mg Take 10 mg Un raymundo 10 mg 1-20 by mouth ity of tablet 15:19: in the [place] [address] morning. Medical Branch montelukast 2021-11 Yes 10mg Take 10 mg Univers 10 mg 1-20 by mouth. ity of tablet 15:19: [place] [address] Medical Branch levothyroxi 2021-11 Yes 50ug Take 50 Uni vers ne (LEVO-T) 1-20 mcg by ity of 50 mcg 15:19: mouth [place] [id number] every Medical morning. Branch nebivoloL 2021-11 Yes 5mg Take 5 mg Uni vers (BYSTOLIC) 1-20 by mouth ity o f 5 mg tablet 15:19: in the [place] [address] morning. Medical Branch prazosin 1 2021-11 Yes 1mg Take 1 mg Un raymundo mg capsule 1-20 by mouth ity o f 15:19: every 8 [place] [address] (eight) Medical hours. Branch zolpidem 2021-11 Yes 10mg Take 10 mg Uni vers (AMBIEN) 10 1-20 by mouth ity of mg tablet 15:19: at bedtime [facility] as needed Medical for Branch Insomnia. DULoxetine 2021-11 Yes 120mg Take 120 Un raymundo 60 mg CDRS 1-20 mg by ity of 15:19: mouth. [address] Branch ARIPIPRAZOL 2021-11 Yes 5mg Take 5 mg U nivers E ORAL 1-20 by mouth. ity of 15:19: [address] Branch BUPROPION 2021-11 Yes 150mg Take 150 Uni vers HCL ORAL 1-20 mg by ity of 15:19: mouth. [address] Branch omeprazole 2021-11 Yes 40mg Take 40 mg U nivers 20 mg 1-20 by mouth ity of capsule 15:19: in the [place] [address] morning. Medical Branch ondansetron 2021-11 Yes 4mg Take 4 mg U nivers (ZOFRAN) 4 1-20 by mouth ity o f mg tablet 15:19: every 8 [place] [address] (eight) Medical hours as Branch needed. rosuvastati 2021-11 Yes Take by Uni vers n (CRESTOR) 1-20 mouth ity of 5 mg tablet 15:19: daily. [address] Branch hydroxychlo 2021-11 Yes 200mg Take 200 U nivers roquine 1-20 mg by ity of sulfate 15:19: mouth 2 [place] ([place] [id number] (two) Medical OROQUINE times Branch ORAL) daily. ezetimibe 2021-11 Yes 10mg Take 10 mg Un raymundo 10 mg 1-20 by mouth ity of tablet 15:19: in the [place] [address] morning. Medical Branch rosuvastati 2021-11 Yes 5mg 5 mg, Unive rs n (CRESTOR) 1-20 Oral, ity of tablet 5 mg 15:00: DAILY, [facility] First dose Medical on [facility] 09/29/22 at 0900, Until Discontinu ed, Routine omeprazole 2021-11 Yes 40mg 40 mg, Unive rs (PRILOSEC) 1-20 Oral, ity of capsule 40 15:00: DAILY, [place] mg 00 First dose Medical on [facility] 09/29/22 at 0900, Until Discontinu ed, Routine montelukast 2021-11 Yes 10mg 10 mg, Univ ers (SINGULAIR) 1-20 Oral, ity of tablet 10 15:00: DAILY, [place] mg 00 First dose Medical on [facility] 09/29/22 at 0900, Until Discontinu ed, Routine ezetimibe 2021-11 Yes 10mg 10 mg, Univer s (ZETIA) 1-20 Oral, ity of tablet 10 15:00: DAILY, [place] mg 00 First dose Medical on [place] [facility] 09/29/22 at 0900, Until Discontinu ed, Routine ARIPiprazol 2021-11 Yes 5mg 5 mg, Unive rs e (ABILIFY) 1-20 Oral, ity of tablet 5 mg 15:00: DAILY, [place] First dose Medical on [facility] 09/29/22 at 0900, Until Discontinu ed levothyroxi 2021-11 Yes 50ug 50 mcg, Uni vers ne 1-20 Oral, ity of (SYNTHROID) 12:00: QAM-0600, [place] tablet 50 00 First dose Medi nikos mcg on [facility] 09/29/22 at 0600, Until Discontinu ed, Routine levoFLOXaci 2021-11 Yes 750mg 750 mg, IV Univers n in D5W -20 Piggyback, ity o f (LEVAQUIN) 06:00: Q24H ABX[place] mg/150 00 First dose Med ical mL on [facility] Piggyback 09/29/22 750 mg at 0000, Until Discontinu ed, Administer over 90 Minutes, 150 mL
Reas on for Anti-Infec tive: Empiric Therapy for Suspected Infection< br>Empiric Therapy Site: Respirator y
Durat ion of therapy: 72 hours hydrOXYchlo 2021-11 Yes 200mg 200 mg, Un raymundo roQUINE 1-20 Oral, BID, ity of (PLAQUENIL) 02:00: First dose [place] tablet 200 00 on [facility] Medical mg 09/28/22 Branch at 2000, Until Discontinu ed
Gerri cation: Rheumatic disorder benzonatate 2021-11 Yes [id number] 100mg Take 1 Univers 100 mg 1-20 capsule by ity of capsule 00:00: mouth [place] 00 every 8 Medical (eight) Branch hours. guaiFENesin 2021-11 Yes [id number] 600mg Take 1 Univers (MUCINEX) 1-20 tablet by ity o f 600 mg 00:00: mouth [place] tablet 00 every 12 Medical (twelve) Branch hours. Fluticasone 2021-11 Yes [id number] 1{puff} Inhale 1 Univers -Salmeterol 1-20 Puff every it y of (ADVAIR 00:00: 12 [place] DISKUS) 00 (twelve) Medical 500-50 hours. Branch mcg/dose inhalation disk benzonatate 2021-11 Yes [id number] 100mg Take 1 Univers 100 mg 1-20 capsule by ity of capsule 00:00: mouth [place] 00 every 8 Medical (eight) Branch hours. guaiFENesin 2021-11 Yes [id number] 600mg Take 1 Univers (MUCINEX) 1-20 tablet by ity o f 600 mg 00:00: mouth [place] tablet 00 every 12 Medical (twelve) Branch hours. Fluticasone 2021-11 Yes [id number] 1{puff} Inhale 1 Univers -Salmeterol 1-20 Puff every it y of (ADVAIR 00:00: 12 [place] DISKUS) 00 (twelve) Medical 500-50 hours. Branch mcg/dose inhalation disk levoFLOXaci 2021-11- Yes [id number] 750mg Take 1.5 Univers n 500 mg 1-20 11-26 tablets by ity of tablet 00:00: 05:59 mouth [place] 00 :00 every 24 Medical (twenty-fo Branch ur) hours for 5 days. levoFLOXaci 2021-11- Yes [id number] 750mg Take 1.5 Univers n 500 mg 1-20 11-26 tablets by ity of tablet 00:00: 05:59 mouth [place] 00 :00 every 24 Medical (twenty-fo Branch ur) hours for 5 days. enoxaparin 2021-11 Yes 40mg 40 mg, Unive rs (LOVENOX) 11-28 Subcutaneo ity of injection 23:00: [place], DAILY, [place] 40 mg 00 First dose Medical on [facility] 09/28/22 at 1700, Until Discontinu ed, Routine lidocaine 2021-11- No 1{patch 1 Patch, Univers (LIDODERM) 11-28 } Topical, ity of 5 % (700 22:30: 11:12 Administer [place] mg/patch) 00 :00 over 12 Medical patch 1 Hours, Branch Patch ONCE, 1 dose, On [facility] 09/28/22 at 1630, Routine HYDROcodone 2021-11 Yes 1{tbl} 1 tablet, Univers -acetaminop 11-28 Oral, ity of hen (NORCO 22:18: Q6HPRN, [place] 5) 5-325 mg 59 Starting Medi nikos tablet 1 on [facility] tablet 09/28/22 at 1618, Until Discontinu ed, Routine, Pain (scale 7-10) buPROPion 2021-11 Yes 150mg 150 mg, Univ ers XL - Oral, ity of (WELLBUTRIN 21:45: DAILY, [place] XL) tablet 00 First dose Med ical 150 mg (after Branch last modificati on) on [facility] 09/28/22 at 1545, Until Discontinu ed DULoxetine 2021-11 Yes 60mg 60 mg, Unive rs (CYMBALTA) 11-28 Oral, ity of capsule 60 21:45: DAILY, [place] mg 00 First dose Medical on [facility] Branch 09/28/22 at 1545, Until Discontinu ed albuterol 2021-11 Yes 2{puff} 2 Puff, Un raymundo (VENTOLIN) 11-28 Inhalation ity of inhaler 2 21:43: , Q4HPRN, [place] as Puff 13 Starting Medical on [facility] Branch 09/28/22 at 1543, Until Discontinu ed, Routine, Wheezing, Shortness of Breath ipratropium 2021-11 Yes 3mL 3 mL, Unive rs -albuteroL 11-28 Inhalation ity of (DUONEB) 17:30: , Q4H, [place] 0.5 mg-3 00 First dose Medic al mg(2.5 mg on [facility] base)/3 mL 09/28/22 nebulizer at 1130, solution 3 Until mL Discontinu ed, Routine guaiFENesin 2021-11 Yes 200mg 200 mg, Un raymundo 100 mg/5 mL 11-28 Oral, ity of solution 17:27: Q6HPRN, [place] 200 mg 27 Starting Medical on [facility] Branch 09/28/22 at 1127, Until Discontinu ed, Routine, Cough acetaminoph 2021-11 Yes 650mg 650 mg, Un raymundo en - Oral, ity of (TYLENOL) 17:27: Q6HPRN, [place] tablet 650 27 Starting Medic al mg on [facility] Branch 09/28/22 at 1127, Until Discontinu ed, Routine, Pain (scale 1-3) ezetimibe 2021-11- Yes 10mg QD Take 1 Metho di (ZETIA) 10 1-11 11-12 tablet (10 st mg tablet 00:00: 05:59 mg total) Ho spita 00 :00 by mouth l daily. montelukast 2021-11 Yes 10mg QD Take 10 mg [facility] (SINGULAIR) 1-[address] 10 mg 09:08: every Hospita tablet 17 evening. l ARIPiprazol 2021-11 Yes 10mg Q.5D Take 10 mg Methodi e (ABILIFY) 1-[address] 15 MG 09:08: (two) Hospita tablet 17 times a l day. clonAZEPAM 2021-11 Yes 1mg Q.5D Take 1 mg [facility] (KlonoPIN) 1-[address] 1 MG tablet 09:08: (two) Hospi ta 17 times a l day as needed for anxiety. hydroxychlo 2021-11 Yes 200mg QD Take 1 Met hodi roquine 1-[address] (PLAQUENIL) 09:08: (200 mg [facility] [place] 200 mg 17 total) by l tablet mouth daily. omeprazole 2021-11 Yes 40mg QD Take 1 Metho di (PriLOSEC) 1-[address] 40 MG 09:08: (40 mg Hospita capsule 17 total) by l mouth daily. potassium 2021-11 Yes 8meq Q.5D Take 8 mEq [facility] chloride 1-[address] (KLOR-CON) 09:08: (two) Hospit a 10 MEQ CR 17 times a l tablet day. ondansetron 2021-11 Yes 4mg Q8H Take 4 mg M ethodi ODT 1-[address] (ZOFRAN-ODT 09:08: every 8 [facility] [place] ) 4 MG 17 (eight) l disintegrat hours as ing tablet needed for nausea or vomiting. albuterol 2021-11 Yes 2{puff} Q6H Inhale 2 M ethodi (PROAIR 1-[address] HFA) 90 09:08: every 6 Hospita mcg/actuati 17 (six) l on inhaler hours as needed for wheezing. armodafiniL 2021-11 Yes 50mg QD 50 mg Metho di 50 mg 1-[address] tablet 09:08: Hospita 17 l folic acid 2021-11 Yes 1mg QD 1 tablet Met hodi (FOLVITE) 1 1-08 ([address] MG tablet 09:08: total) Hospit a 17 daily. 2 l tabs daily sucralfate 2021-11 Yes 1g Q.5D Take 1 Metho di (CARAFATE) 1-08 tablet (1 st 1 gram 09:08: g total) Hospita tablet 17 by mouth 2 l (two) times a day. methocarbam 2021-11 Yes 750mg Q.25D Take 1 [facility] oL 1-[address] (ROBAXIN) 09:08: (750 mg Hospi ta 750 MG 17 total) by l tablet mouth 4 (four) times a day. HYDROCODONE 2021-11 Yes Take by Met hodi -ACETAMINOP 1-[address] HEN ORAL 09:08: Hospita 17 l aspirin 2021-11 Yes 81mg QD Take 1 [facility] (ECOTRIN) 1-08 tablet (81 st 81 MG 09:08: mg total) Hospita enteric 17 by mouth l coated daily. tablet telmisartan 2021-11- Yes 1{tbl} QD Take 1 M ethodi -hydrochlor 0-11 10-[address] othiazid 00:00: 04:59 mouth Hospita (Micardis 00 :00 daily. l HCT) 80-12.5 mg per tablet enalapril 2021-11- No 10mg QD Take 1 Metho di (VASOTEC) 0-11 11-11 tablet (10 st 10 MG 00:00: 05:59 mg total) Hospit a tablet 00 :00 by mouth l daily for 30 days. furosemide 2021-11- No 40mg Q.5D Take 1 Meth анна (LASIX) 40 0-11 10-26 tablet (40 st mg tablet 00:00: 00:00 mg total) Ho spita 00 :00 by mouth 2 l (two) times a day for 30 days. nebivoloL 2021-11 Yes 10mg QD Take 1 Method i (BYSTOLIC) 0-05 tablet (10 st 10 MG 00:00: mg total) Hospita tablet 00 by mouth l daily. atorvastati 2021-11- Yes 20mg QD Take 1 Met hodi n (LIPITOR) 0-05 10- tablet (20 s t 20 mg 00:00: 04:59 mg total) Hospit a tablet 00 :00 by mouth l daily. Default OP ins amLODIPine 2021-11 5mg QD Take 1 Meth анна (NORVASC) 5 - tablet (5 st mg tablet 00:00: 00:00 mg total) Ho spita 00 :00 by mouth l daily. famotidine No 40mg QD Take 1 Meth анна (PEPCID) 40 04-30 tablet (40 s t MG tablet 00:00: 04:59 mg total) Ho spita 00 :00 by mouth l nightly as needed for heartburn for up to 30 days. triamcinolo Q.5D Apply Meth анна ne 04-[address] (KENALOG) 00:00: 04:59 2 (two) Hosp symone 0.1 % cream 00 :00 times a l day for 10 days. zolpidem 2020-11 No 10mg QD Take 10 mg [facility] (AMBIEN) 10 0- 10-[address] mg tablet 15:08: 00:00 nightly. [facility] [place] 58 :00 zolpidem l 10 mg tablet dexmethylph 2020-11 No 40mg QD Take 40 mg [facility] enidate XR 0-07 10-[address] (FOCALIN 15:08: 00:00 every Hospita XR) 40 mg 58 :00 morning. l 24 hr capsule SODIUM 2020-11 Take by [facility] OXYBATE 0-07 10-[address] (XYREM 15:08: 00:00 grams at Hospit a ORAL) 58 :00 2100 and l 4.5 grams at 0100 zolpidem 2020-11 No 10mg QD Take 10 mg [facility] (AMBIEN) 10 0-07 10-[address] mg tablet 15:08: 00:00 nightly. [facility] [place] 58 :00 zolpidem l 10 mg tablet dexmethylph 2020-11 No 40mg QD Take 40 mg [facility]i enidate XR 0-07 10-[address] (FOCALIN 15:08: 00:00 every Hospita XR) 40 mg 58 :00 morning. l 24 hr capsule SODIUM 2020-11 Take by [facility] OXYBATE 0-07 10-07 mouth. [...] on inhaler hours as needed for wheezing. montelukast 2020-11 Yes 10mg QD Take 10 [...] l diskus day. inhaler ipratropium 2020-11 Yes [id number] .5mg Q.[id number] Take 2.5 Methodi (ATROVENT) 0-07 [id number] mL (0.[address] 0.02 % 00:00: 3D total) by Hospit a nebulizer 00 nebulizati l solution on 3 (three) times a day. salmeteroL 2020-11 Yes 1{puff} Q.5D Inhale 1 [facility] (Serevent 0-[address] Diskus) 50 00:00: (two) Hospit a mcg/dose 00 times a l diskus day. inhaler ipratropium 2020-11 Yes [id number] .5mg Q.[id number] Take 2.5 [facility] (ATROVENT) 0-07 [id number] mL (0.[address] 0.02 % 00:00: 3D total) by Hospit a nebulizer 00 nebulizati l solution on 3 (three) times a day. salmeteroL 2020-11 Yes 1{puff} Q.5D Inhale 1 [facility] (Serevent 0-[address] Diskus) 50 00:00: (two) Hospit a mcg/dose 00 times a l diskus day. inhaler ipratropium 2020-11 Yes [id number] .5mg Q.[id number] Take 2.5 [facility] (ATROVENT) 0-07 [id number] mL (0.[address] 0.02 % 00:00: 3D total) by Hospit a nebulizer 00 nebulizati l solution on 3 (three) times a day. budesonide 2020-11 No [id number] .5mg QD Take 2 mL [facility] (PULMICORT) 09-16 (0.[address] 0.5 mg/2 mL 00:00: 04:59 total) by Hospita nebulizer 00 :00 nebulizati l solution on once daily for 30 days. ondansetron 2020-11- No 4mg Q8H Take 1 Met hodi ODT 09-16 tablet (4 st (ZOFRAN-ODT 00:00: 04:59 mg total) [facility] ) 4 MG 00 :00 by mouth [...] 200mg QD Take 1 Meth анна (PROVIGIL) 09-[address] 200 MG 00:00: 04:59 (200 mg Hospita tablet 00 :00 total) by l mouth daily for 30 days. gabapentin 2020-11 No 100mg Q.5D Take 1 Met hodi (NEURONTIN) 09-[address] 100 mg 00:00: 04:59 (100 mg Hospita capsule 00 :00 total) by l mouth 2 (two) times a day for 30 days. fexofenadin 2020-11 No 60mg Q.5D Take 1 Met hodi e (MARTHA) 09-16 tablet (60 s t 60 MG 00:00: 04:59 mg total) Hospit a tablet 00 :00 by mouth 2 l (two) times a day as needed (itching) for up to 30 days. budesonide 2020-11 [id number] .5mg QD Take 2 mL [facility] (PULMICORT) [...] vomiting for up to 30 days. sennosides- 2020-11 No 1{tbl} Q.5D Take 1 M ethodi docusate 09-[address] sodium 00:00: 04:59 mouth 2 Hospita (SENOKOT-S) 00 :00 (two) l 8.6-50 mg times a per tablet day for 30 days. modafiniL 2021-1 2021- No 200mg QD Take 1 Meth анна [...] (itching) for up to 30 days. aztreonam 2020-11- No 500mg Q8H Infuse 500 [facility] 500 mg in 0- 10-[address] dextrose 5% 00:00: 04:59 venous [facility] [place] 50 mL IVPB 00 :00 catheter l every 8 (eight) hours for 40 doses. aztreonam 2020-11- No 500mg Q8H Infuse 500 [facility] 500 mg in 0-07 10-[address] dextrose 5% 00:00: 04:59 venous [facility] [place] 50 mL IVPB 00 :00 catheter l every 8 (eight) hours for 40 doses. zolpidem 2020-11 No 5mg QD Take 1 Method i (AMBIEN) 5 08-27 tablet (5 st MG tablet 00:00: 04:59 mg total) Ho spita 00 :00 by mouth l nightly as needed for sleep for up to 10 days. HYDROcodone 2020-11- No [id number] 1{tbl} Q4H Take 1 [facility]i -acetaminop 0-05 19-[address] hen (NORCO) 00:00: 04:59 mouth Hosp symone 10-325 mg 00 :00 every 4 l per tablet (four) hours as needed for severe pain for up to 10 days .acute pain. Max Daily Amount: 6 tablets clindamycin 2020-11- No 300mg Q.[id number] Take 1 [facility] (CLEOCIN) 0- 10-[id number] 300 MG 00:00: 04:59 3D (300 mg Hospita capsule 00 :00 total) by l mouth 3 (three) times a day for 10 days. zolpidem 2020-11- No 5mg QD Take 1 Method i (AMBIEN) 5 0-18 tablet (5 st MG tablet 00:00: 04:59 mg total) Ho spita 00 :00 by mouth l nightly as needed for sleep for up to 10 days. HYDROcodone 2020-11- No [id number] 1{tbl} Q4H Take 1 Methodi -acetaminop 0-05 19-[address] hen (NORCO) 00:00: 04:59 mouth Hosp symone 10-325 mg 00 :00 every 4 l per tablet (four) hours as needed for severe pain for up to 10 days .acute pain. Max Daily Amount: 6 tablets clindamycin 2020-11 No 300mg Q.[id number] Take 1 [facility] (CLEOCIN) 0-05 19-[id number] 300 MG 00:00: 04:59 3D (300 mg Hospita capsule 00 :00 total) by l mouth 3 (three) times a day for 10 days. vancomycin 2020-11- No 1000mg Q24H Infuse [facility] 1,000 mg in 0- 10-14 1,[address] sodium 00:00: 04:59 into a Hospita chloride 00 :00 venous l 0.9% 250 mL catheter IVPB daily for 6 days. vancomycin 2020-11- No 1000mg Q24H Infuse [facility] 1,000 mg in 0-07 10-14 1,[address] sodium 00:00: 04:59 into a Hospita chloride 00 :00 venous l 0.9% 250 mL catheter IVPB daily for 6 days. tiotropium 2020- No 1{capsu Q24H Place 1 [facility] (SPIRIVA) 6-15 06-15 le} capsule st 18 mcg per 09:01: 00:00 into Hospit a inhalation 43 :00 inhaler l capsule and inhale daily as needed. furosemide 2020- No 80mg Q.5D Take 80 mg [facility] (LASIX) 80 6-15 06-[address] mg tablet 09:01: 00:00 (two) Hospit a 43 :00 times a l day. tiotropium 2020- No 1{capsu Q24H Place 1 [facility]i (SPIRIVA) 6-15 06-15 le} capsule st 18 mcg per 09:01: 00:00 into Hospit a inhalation 43 :00 inhaler l capsule and inhale daily as needed. furosemide No 80mg Q.5D Take 80 mg [facility] (LASIX) 80 6-15 06-[address] mg tablet 09:01: 00:00 (two) Hospit a 43 :00 times a l day. clonazepam clonazepam No clonazepam Nathalie 0.5 mg 0.5 mg 6-10 0.5 mg [facility] tablet RX tablet RX 00:00: tablet RX dic by other MD by other MD 00 by other Sports Medicjoanna corbin levothyroxi levothyroxi No levothyrox Nathalie ne 50 mcg ne 50 mcg 6-10 ine 50 mcg [facility] tablet RX tablet RX 00:00: tablet RX dic by other MD by other MD 00 by other Sports MD Tamera corbin Multiple Multiple No Multiple A [place] Vitamin Vitamin 6-10 Vitamin Orthop e 00:00: dic 00 Sports Medicin e omeprazole omeprazole No omeprazole Nathalie 20 mg 20 mg 6-10 20 mg [facility] capsule,del capsule,del 00:00: capsule,de dic ayed ayed 00 layed Sports release release release Medici n e Restasis Restasis No Restasis A [place] MultiDose MultiDose 6-10 MultiDose Orthope 0.05 % eye 0.05 % eye 00:00: 0.05 % eye dic drops drops 00 drops Sports Medicin e ursodiol ursodiol No ursodiol A [place] 300 mg 300 mg 6-10 300 mg [facility] capsule RX capsule RX 00:00: capsule RX dic by other MD by other 00 by other Sports Medicin e Zofran 4 mg Zofran 4 mg No Zofran 4 Nathalie tablet RX tablet RX 6-10 mg tablet Orthope by other MD by other MD 00:00: RX by dic 00 other Sports Tamera e Abilify 5 Abilify 5 No Abilify 5 Nathalie mg tablet mg tablet 6-10 mg tablet Orthope 00:00: dic 00 Sports Medicin e bupropion bupropion No bupropion Nathalie HCl SR 150 HCl SR 150 6-10 HCl SR 150 Orthope mg mg 00:00: mg dic tablet,12 tablet,12 00 tablet,12 Sports hr hr hr Medicin sustained-r sustained-r sustained- e elease RX elease RX release RX by other by other MD by other clonazepam clonazepam No clonazepam Nath[place]ie 0.5 mg 0.5 mg 6-10 0.5 mg [facility] tablet RX tablet RX 00:00: tablet RX dic by other MD by other 00 by other Sports Medicjoanna e levothyroxi levothyroxi No levothyrox Nathalie ne 50 mcg ne 50 mcg 6-10 ine 50 mcg [facility] tablet RX tablet RX 00:00: tablet RX dic by other MD by other 00 by other Sports MD Tamera corbin Multiple Multiple No Multiple A [place] Vitamin Vitamin 6-10 Vitamin Orthop e 00:00: dic 00 Sports Medicin e omeprazole omeprazole No omeprazole Nathalie 20 mg 20 mg 6-10 20 mg [facility] capsule,del capsule,del 00:00: capsule,de dic ayed ayed 00 layed Sports release release release Medici n e Restasis Restasis No Restasis A [place] MultiDose MultiDose 6-10 MultiDose Orthope 0.05 % eye 0.05 % eye 00:00: 0.05 % eye dic drops drops 00 drops Sports Medicin e ursodiol ursodiol No ursodiol A z[place] 300 mg 300 mg 6-10 300 mg [facility] capsule RX capsule RX 00:00: capsule RX dic by other MD by other 00 by other Sports Medicjoanna e Zofran 4 mg Zofran 4 mg No Zofran 4 Nathalie tablet RX tablet RX 6-10 mg tablet Orthope by other MD by other MD 00:00: RX by dic 00 other Sports Medicin e Abilify 5 Abilify 5 No Abilify 5 Nathalie mg tablet mg tablet 6-10 mg tablet Orthope 00:00: dic 00 Sports Medicin e bupropion bupropion No bupropion Nath[place]ie HCl SR 150 HCl SR 150 6-10 HCl SR 150 Orthope mg mg 00:00: mg dic tablet,12 tablet,12 00 tablet,12 Sports hr hr hr Medicin sustained-r sustained-r sustained- e elease RX elease RX release RX by other by other MD by other Bystolic 5 Bystolic 5 No Bystolic 5 Nathalie mg tablet mg tablet 4-27 mg tablet [facility] RX by other RX by other 00:00: RX by dic MD SCHMIDT 00 dulce maria SCHMIDT Sports Medicin e Co Q-10 Co Q-10 No Co Q-10 Azal ea (with Vit (with Vit 4-27 (with Vit Orthope E) 100 mg-5 E) 100 mg-5 00:00: E) 100 dic unit unit 00 mg-5 unit Sports capsule RX capsule RX capsule RX Medicin by other MD by other by other e dexmedetomi dexmedetomi No dexmedetom Nathalie dine 400 dine 400 4-27 idine 400 Or thope mcg/100 mL mcg/100 mL 00:00: mcg/100 mL dic (4 mcg/mL) (4 mcg/mL) 00 (4 mcg/mL) Sports in 0.9 % in 0.9 % in 0.9 % Med icin sodium sodium sodium e chloride IV chloride IV chloride RX by other RX by other IV RX by MD MD dulce maria SCHMIDT duloxetine duloxetine No duloxetine Nathalie HCl (bulk) HCl (bulk) 4-27 HCl (bulk) Orthope 100 % 100 % 00:00: 100 % dic powder RX powder RX 00 powder RX Sports by other MD by other MD by other Medicin MD corbin omeprazole omeprazole No omeprazole Nathalie 40 mg 40 mg 4-27 40 mg [facility] capsule,del capsule,del 00:00: capsule,de dic ayed ayed 00 layed Sports release RX release RX release RX Medicin by other MD by other MD by other e Restasis Restasis No Restasis A zalea 0.05 % eye 0.05 % eye 4-27 0.05 % eye [facility] drops in a drops in a 00:00: drops in a dic dropperette dropperette 00 dropperett Sports RX by other RX by other e RX by Tamera corbin aripiprazol aripiprazol No aripiprazo Nathalie e 2 mg e 2 mg 4-27 le 2 mg [facility] tablet RX tablet RX 00:00: tablet RX dic by other MD by dulce maria SCHMIDT 00 by other Sports MD Tamera corbin Bystolic 5 Bystolic 5 No Bystolic 5 Nathalie mg tablet mg tablet 4-27 mg tablet Orthope RX by other RX by other 00:00: RX by nelly SCHMIDT MD 00 other MD Kim Medicin e Co Q-10 Co Q-10 No Co Q-10 Azal ea (with Vit (with Vit 4-27 (with Vit Orth[facility] E) 100 mg-5 E) 100 mg-5 00:00: E) 100 dic unit unit 00 mg-5 unit Sports capsule RX capsule RX capsule RX Medicin by other by other MD by other e dexmedetomi dexmedetomi No dexmedetom Nathalie dine 400 dine 400 4-27 idine 400 Or thope mcg/100 mL mcg/100 mL 00:00: mcg/100 mL dic (4 mcg/mL) (4 mcg/mL) 00 (4 mcg/mL) Sports in 0.9 % in 0.9 % in 0.9 % Med icin sodium sodium sodium e chloride IV chloride IV chloride RX by other RX by other IV RX by MD MD dulce maria SCHMIDT duloxetine duloxetine No duloxetine Nathalie HCl (bulk) HCl (bulk) 4-27 HCl (bulk) Orthope 100 % 100 % 00:00: 100 % dic powder RX powder RX 00 powder RX Sports by other MD by other MD by other Tamera corbin omeprazole omeprazole No omeprazole Nathalie 40 mg 40 mg 4-27 40 mg [facility] capsule,del capsule,del 00:00: capsule,de dic ayed ayed 00 layed Sports release RX release RX release RX Medicin by other by other MD by other e Restasis Restasis No Restasis A zalea 0.05 % eye 0.05 % eye 4-27 0.05 % eye [facility] drops in a drops in a 00:00: drops in a dic dropperette dropperette 00 dropperett Sports RX by other RX by other e RX by Tamera corbin aripiprazol aripiprazol No aripiprazo Nathalie e 2 mg e 2 mg 4-27 le 2 mg [facility] tablet RX tablet RX 00:00: tablet RX dic by other MD by other MD 00 by other Sports MD Tamera corbin bupropion bupropion No bupropion Nathalie HCl SR 150 HCl SR 150 4-27 HCl SR 150 Orthope mg mg 00:00: mg dic tablet,12 tablet,12 00 tablet,12 Sports hr hr hr Medicin sustained-r sustained-r sustained- e elease RX elease RX release RX by other MD by other MD by other MD Bystolic 5 Bystolic 5 No Bystolic 5 Nathalie mg tablet mg tablet 4-27 mg tablet [facility] RX by other RX by other 00:00: RX by dic MD SCHMIDT 00 other MD Kim Medicin e Co Q-10 Co Q-10 No Co Q-10 Azal ea (with Vit (with Vit 4-27 (with Vit [facility] E) 100 mg-5 E) 100 mg-5 00:00: E) 100 dic unit unit 00 mg-5 unit Sports capsule RX capsule RX capsule RX Medicin by other MD by other MD by other e dexmedetomi dexmedetomi No dexmedetom Nathalie dine 400 dine 400 4-27 idine 400 Or thope mcg/100 mL mcg/100 mL 00:00: mcg/100 mL dic (4 mcg/mL) (4 mcg/mL) 00 (4 mcg/mL) Sports in 0.9 % in 0.9 % in 0.9 % Med icin sodium sodium sodium e chloride IV chloride IV chloride RX by other RX by other IV RX by MD MD dulce maria SCHMIDT duloxetine duloxetine No duloxetine Nathalie HCl (bulk) HCl (bulk) 4-27 HCl (bulk) Orthope 100 % 100 % 00:00: 100 % dic powder RX powder RX 00 powder RX Sports by other MD by other MD by other Tamera corbin levothyroxi levothyroxi No levothyrox Nathalie ne 50 mcg ne 50 mcg 4-27 ine 50 mcg [facility] tablet RX tablet RX 00:00: tablet RX dic by other MD by other MD 00 by other Sports Medicjoanna corbin omeprazole omeprazole No omeprazole Nathalie 40 mg 40 mg 4-27 40 mg [facility] capsule,del capsule,del 00:00: capsule,de dic ayed ayed 00 layed Sports release RX release RX release RX Medicin by other MD by other MD by other e ondansetron ondansetron No ondansetro Nathalie HCl 4 mg HCl 4 mg 4-27 n HCl 4 mg O [facility] tablet RX tablet RX 00:00: tablet RX dic by other MD by other MD 00 by other Sports Medicin e Restasis Restasis No Restasis A zalea 0.05 % eye 0.05 % eye 4-27 0.05 % eye [facility] drops in a drops in a 00:00: drops in a dic dropperette dropperette 00 dropperett Sports RX by other RX by other e RX by Tamera corbin ursodiol ursodiol No ursodiol A zalea 300 mg 300 mg 4-27 300 mg [facility] capsule RX capsule RX 00:00: capsule RX dic by other MD by other MD 00 by other Sports Medicin e aripiprazol aripiprazol No aripiprazo Nathalie e 2 mg e 2 mg 4-27 le 2 mg [facility] tablet RX tablet RX 00:00: tablet RX dic by other MD by other MD 00 by other Sports MD Tamera corbin bupropion bupropion No bupropion Nathalie HCl SR 150 HCl SR 150 4-27 HCl SR 150 [facility] mg mg 00:00: mg dic tablet,12 tablet,12 00 tablet,12 Sports hr hr hr Medicin sustained-r sustained-r sustained- e elease RX elease RX release RX by other MD by other MD by other MD Bystolic 5 Bystolic 5 No Bystolic 5 Nathalie mg tablet mg tablet 4-27 mg tablet [facility] RX by other RX by other 00:00: RX by dic MD SCHMIDT 00 other MD Kim Medicin e Co Q-10 Co Q-10 No Co Q-10 Azal ea (with Vit (with Vit 4-27 (with Vit [facility] E) 100 mg-5 E) 100 mg-5 00:00: E) 100 dic unit unit 00 mg-5 unit Sports capsule RX capsule RX capsule RX Medicin by other MD by other MD by other e dexmedetomi dexmedetomi No dexmedetom Nathalie dine 400 dine 400 4-27 idine 400 Or [facility] mcg/100 mL mcg/100 mL 00:00: mcg/100 mL dic (4 mcg/mL) (4 mcg/mL) 00 (4 mcg/mL) Sports in 0.9 % in 0.9 % in 0.9 % Med icin sodium sodium sodium e chloride IV chloride IV chloride RX by other RX by other IV RX by MD MD dulce maria SCHMIDT duloxetine duloxetine No duloxetine Nathalie HCl (bulk) HCl (bulk) 4-27 HCl (bulk) [facility] 100 % 100 % 00:00: 100 % dic powder RX powder RX 00 powder RX Sports by other MD by other MD by other Medicin MD corbin levothyroxi levothyroxi No levothyrox Nathalie ne 50 mcg ne 50 mcg 4-27 ine 50 mcg [facility] tablet RX tablet RX 00:00: tablet RX dic by other MD by other MD 00 by other Sports MD Tamera corbin omeprazole omeprazole No omeprazole Nathalie 40 mg 40 mg 4-27 40 mg [facility] capsule,del capsule,del 00:00: capsule,de dic ayed ayed 00 layed Sports release RX release RX release RX Medicin by other MD by other MD by other e ondansetron ondansetron No ondansetro Nathalie HCl 4 mg HCl 4 mg 4-27 n HCl 4 mg [facility] tablet RX tablet RX 00:00: tablet RX dic by other MD by dulce maria SCHMIDT 00 by other Sports Medicin e Restasis Restasis No Restasis A zalea 0.05 % eye 0.05 % eye 4-27 0.05 % eye [facility] drops in a drops in a 00:00: drops in a dic dropperette dropperette 00 dropperett Sports RX by other RX by other e RX by Tamera corbin ursodiol ursodiol No ursodiol A zalea 300 mg 300 mg 4-27 300 mg [facility] capsule RX capsule RX 00:00: capsule RX dic by other MD by dulce maria SCHMIDT 00 by other Julio corbin aripiprazol aripiprazol No aripiprazo Nathalie e 2 mg e 2 mg 4-27 le 2 mg [facility] tablet RX tablet RX 00:00: tablet RX dic by other MD by dulce maria SCHMIDT 00 by other Julio corbin bupropion bupropion No bupropion Nathalie HCl SR 150 HCl SR 150 4-27 HCl SR 150 [facility] mg mg 00:00: mg dic tablet,12 tablet,12 00 tablet,12 Sports hr hr hr Medicin sustained-r sustained-r sustained- e elease RX elease RX release RX by other MD by other MD by other Bystolic 5 Bystolic 5 No Bystolic 5 Nathalie mg tablet mg tablet 4-27 mg tablet [facility] RX by other RX by other 00:00: RX by dic MD SCHMIDT 00 dulce maria Kim Medicin e Co Q-10 Co Q-10 No Co Q-10 Azal ea (with Vit (with Vit 4-27 (with Vit [facility] E) 100 mg-5 E) 100 mg-5 00:00: E) 100 dic unit unit 00 mg-5 unit Sports capsule RX capsule RX capsule RX Medicin by other MD by other MD by other e dexmedetomi dexmedetomi No dexmedetom Nathalie dine 400 dine 400 4-27 idine 400 Or [facility] mcg/100 mL mcg/100 mL 00:00: mcg/100 mL dic (4 mcg/mL) (4 mcg/mL) 00 (4 mcg/mL) Sports in 0.9 % in 0.9 % in 0.9 % Med icin sodium sodium sodium e chloride IV chloride IV chloride RX by other RX by other IV RX by MD MD dulce maria SCHMIDT duloxetine duloxetine No duloxetine Nathalie HCl (bulk) HCl (bulk) 4-27 HCl (bulk) [facility] 100 % 100 % 00:00: 100 % dic powder RX powder RX 00 powder RX Sports by other MD by other MD by other Tamera corbin levothyroxi levothyroxi No levothyrox Nathalie ne 50 mcg ne 50 mcg 4-27 ine 50 mcg [facility] tablet RX tablet RX 00:00: tablet RX dic by other MD by other MD 00 by other Sports MD Tamera corbin omeprazole omeprazole No omeprazole Nathalie 40 mg 40 mg 4-27 40 mg [facility] capsule,del capsule,del 00:00: capsule,de dic ayed ayed 00 layed Sports release RX release RX release RX Medicin by other MD by other MD by other e ondansetron ondansetron No ondansetro Nathalie HCl 4 mg HCl 4 mg 4-27 n HCl 4 mg [facility] tablet RX tablet RX 00:00: tablet RX dic by other MD by other MD 00 by other Sports MD Philip e Restasis Restasis No Restasis A zalea 0.05 % eye 0.05 % eye 4-27 0.05 % eye [facility] drops in a drops in a 00:00: drops in a dic dropperette dropperette 00 dropperett Sports RX by other RX by other e RX by Tamera corbin ursodiol ursodiol No ursodiol A zalea 300 mg 300 mg 4-27 300 mg [facility] capsule RX capsule RX 00:00: capsule RX dic by other MD by other MD 00 by other Sports MD Tamera corbin aripiprazol aripiprazol No aripiprazo Nathalie e 2 mg e 2 mg 4-27 le 2 mg [facility] tablet RX tablet RX 00:00: tablet RX dic by other MD by other 00 by other Sports MD Tamera corbin bupropion bupropion No bupropion Nathalie HCl SR 150 HCl SR 150 4-27 HCl SR 150 [facility] mg mg 00:00: mg dic tablet,12 tablet,12 00 tablet,12 Sports hr hr hr Medicin sustained-r sustained-r sustained- e elease RX elease RX release RX by other MD by other MD by other MD Bystolic 5 Bystolic 5 No Bystolic 5 Nathalie mg tablet mg tablet 4-27 mg tablet [facility] RX by other RX by other 00:00: RX by dic MD SCHMIDT 00 other MD Kim Medicin e Co Q-10 Co Q-10 No Co Q-10 Azal ea (with Vit (with Vit 4-27 (with Vit [facility] E) 100 mg-5 E) 100 mg-5 00:00: E) 100 dic unit unit 00 mg-5 unit Sports capsule RX capsule RX capsule RX Medicin by other MD by other MD by other e dexmedetomi dexmedetomi No dexmedetom Nathalie dine 400 dine 400 4-27 idine 400 Or [facility] mcg/100 mL mcg/100 mL 00:00: mcg/100 mL dic (4 mcg/mL) (4 mcg/mL) 00 (4 mcg/mL) Sports in 0.9 % in 0.9 % in 0.9 % Med icin sodium sodium sodium e chloride IV chloride IV chloride RX by other RX by other IV RX by MD MD dulce maria SCHMIDT duloxetine duloxetine No duloxetine Nathalie HCl (bulk) HCl (bulk) 4-27 HCl (bulk) [facility] 100 % 100 % 00:00: 100 % dic powder RX powder RX 00 powder RX Sports by other MD by other MD by other Tamera corbin levothyroxi levothyroxi No levothyrox Nathalie ne 50 mcg ne 50 mcg 4-27 ine 50 mcg [facility] tablet RX tablet RX 00:00: tablet RX dic by other MD by other 00 by other Sports MD Tamera corbin omeprazole omeprazole No omeprazole Nathalie 40 mg 40 mg 4-27 40 mg [facility] capsule,del capsule,del 00:00: capsule,de dic ayed ayed 00 layed Sports release RX release RX release RX Medicin by other MD by other MD by other shaquille SCHMIDT ondansetron ondansetron No ondansetro Nathalie HCl 4 mg HCl 4 mg 4-27 n HCl 4 mg [facility] tablet RX tablet RX 00:00: tablet RX dic by other MD by dulce maria SCHMIDT 00 by other Sports MD Tamera corbin Restasis Restasis No Restasis A zalea 0.05 % eye 0.05 % eye 4-27 0.05 % eye [facility] drops in a drops in a 00:00: drops in a dic dropperette dropperette 00 dropperett Sports RX by other RX by other e RX by Tamera corbin ursodiol ursodiol No ursodiol A zalea 300 mg 300 mg 4-27 300 mg [facility] capsule RX capsule RX 00:00: capsule RX dic by other MD by other MD 00 by other Sports MD Tamera corbin aripiprazol aripiprazol No aripiprazo Nathalie e 2 mg e 2 mg 4-27 le 2 mg [facility] tablet RX tablet RX 00:00: tablet RX dic by other MD by other 00 by other Sports MD Tamera corbin valACYclovi Yes 500mg QD 1 tablet M ethodi r (VALTREX) 3-29 ([address] 500 MG 00:00: total) [facility] tablet 00 daily. l gabapentin No [id number] 300mg Q.5D Take 1 [facility] (NEURONTIN) 19 -[address] 300 mg 00:00: 04:59 (300 mg [facility] capsule 00 :00 total) by l mouth 2 (two) times a day for 30 days. gabapentin 2020- No [id number] 300mg Q.5D Take 1 [facility] (NEURONTIN) 3-19 -[address] 300 mg 00:00: 04:59 (300 mg [facility] capsule 00 :00 total) by l mouth 2 (two) times a day for 30 days. meloxicam No 15mg QD Take 1 [facility] (MOBIC) 15 3-15 04-15 tablet (15 st mg tablet 00:00: 04:59 mg total) [facility] 00 :00 by mouth l daily for 30 days. Start after medrol dosepack. meloxicam No 15mg QD Take 1 [facility] (MOBIC) 15 3-15 04-15 tablet (15 st mg tablet 00:00: 04:59 mg total) [facility] 00 :00 by mouth l daily for 30 days. Start after medrol dosepack. traMADoL 2020- No [id number] 25mg Q6H Take 0.5 [facility] (ULTRAM) 50 -13 -[address] mg tablet 00:00: 04:59 (25 mg Hospi ta 00 :00 total) by l mouth every 6 (six) hours as needed for moderate pain for up to 5 days .acute pain. methylPREDN 2020- No follow [facility] ISolone 01-[address] (MEDROL 00:00: 04:59 directions Hos garrett DOSEPAK) 4 00 :00 l mg tablet traMADoL [id number] 25mg Q6H Take 0.5 [facility] (ULTRAM) [...] 00 :00 l mg tablet Nystatin-Tr Nystatin-Tr 2019-0 Yes SUBHRATHA APPLY UT iamcinolone iamcinolone 6-05 YESY SPARINGLY [facility] [id number] 00:00: M.D. TO a ns UNIT/GM-% UNIT/GM-% 00 AFFECTED External External AREA(S) Cream Cream TWICE DAILY X 10 DAYS duloxetine 2017-11 Yes 120mg QD Take 120 [facility] HCl 0-[address] (DULOXETINE 00:00: mouth Hospi ta ORAL) 00 daily. l duloxetine 2017-11 Yes 120mg QD Take 120 [facility] HCl 0-[address] (DULOXETINE 00:00: mouth Hospi ta ORAL) 00 daily. l duloxetine 2017-11 Yes 120mg QD Take 120 [facility] HCl 0-[address] (DULOXETINE 00:00: mouth Hospi ta ORAL) 00 daily. l zolpidem 2017-11 Yes 10mg QD 1 tablet [facility] (AMBIEN) 10 0-01 ([address] mg tablet 00:00: total) Hospit a 00 daily. l nebivoloL 2018-1 2022- No 5mg 1 tablet [facility] (BYSTOLIC) 0 10-05 ([address] 5 MG tablet 00:00: 00:00 total) as [facility]ospita 00 :00 needed. l bupropion bupropion No bupropion Nathalie HCl XL 300 HCl XL 300 9-19 HCl XL 300 [facility] mg 24 hr mg 24 hr 00:00: mg 24 hr d ic tablet, tablet, 00 tablet, Sports extended extended extended Med icin release release release e Bystolic Bystolic No Bystolic A zalea 2.5 mg 2.5 mg 9-19 2.5 mg [facility] tablet RX tablet RX 00:00: tablet RX dic by other MD by other MD 00 by other Sports MD Tamera corbin CoQ10 10 mg CoQ10 10 mg No CoQ10 10 Nathalie capsule capsule 9-19 mg capsule [facility] 00:00: dic 00 Sports Medicin e Crestor 10 Crestor 10 No Crestor 10 Nathalie mg tablet mg tablet 9-19 mg tablet [facility] RX by other RX by other 00:00: RX by dic MD SCHMIDT 00 other Sports Medicin e hydrochloro hydrochloro No hydrochlor Nathalie thiazide 25 thiazide 25 9-19 othiazide [facility] mg tablet mg tablet 00:00: 25 mg di c 00 tablet Sports Medicin e levothyroxi levothyroxi No levothyrox Nathalie ne 75 mcg ne 75 mcg 9-19 ine 75 mcg [facility] tablet tablet 00:00: tablet dic 00 Sports Medicin e Medrol 4 mg Medrol 4 mg No Medrol 4 Nathalie tablet tablet 9-19 mg tablet [facility] e 00:00: dic 00 Sports Medicin e Ambien 5 mg Ambien 5 mg No Ambien 5 Nathalie tablet tablet 9-19 mg tablet [facility] e 00:00: dic 00 Sports Medicin e bupropion bupropion No bupropion Nathalie HCl XL 300 HCl XL 300 9-19 HCl XL 300 [facility] mg 24 hr mg 24 hr 00:00: mg 24 hr d ic tablet, tablet, 00 tablet, Sports extended extended extended Med icin release release release e Bystolic Bystolic No Bystolic A zalea 2.5 mg 2.5 mg 9-19 2.5 mg [facility] tablet RX tablet RX 00:00: tablet RX dic by other MD by other MD 00 by other Sports MD Tamera corbin CoQ10 10 mg CoQ10 10 mg No CoQ10 10 Nathalie capsule capsule 9-19 mg capsule [facility] 00:00: dic 00 Sports Medicjoanna e Crestor 10 Crestor 10 No Crestor 10 Nathalie mg tablet mg tablet 9-19 mg tablet [facility] RX by other RX by other 00:00: RX by nelly SCHMIDT MD 00 other MD Julio corbin hydrochloro hydrochloro No hydrochlor Nathalie thiazide 25 thiazide 25 9-19 othiazide [facility] mg tablet mg tablet 00:00: 25 mg di c 00 [facility] levothyroxi No levothyrox Nathalie ne 75 mcg ne 75 mcg 9-19 ine 75 mcg [facility] tablet tablet 00:00: tablet dic 00 Sports Medicjoanna e Medrol 4 mg Medrol 4 mg No Medrol 4 Nathalie tablet tablet 9-19 mg tablet [facility] e 00:00: dic 00 Sports Tamera e Ambien 5 mg Ambien 5 mg No Ambien 5 Nathalie tablet tablet 9-19 mg tablet [facility] e 00:00: dic 00 Julio corbin CRESTOR 5 Yes 5mg QD Take 5 [...] 00 every l 24 hr morning. tablet CRESTOR 5 Yes 5mg QD Take 5 mg [facility] mg tablet 6-[address] 00:00: daily. [facility]osp[facility] 00 l levothyroxi 2018-0 Yes 50ug QD Take 50 [facility] ne 6-[address] (SYNTHROID, 00:00: mouth Hospi ta LEVOXYL) 50 00 daily. l mcg tablet RESTASIS 2018-0 Yes 1[drp] Q.5D Administer M ethodi MULTIDOSE 6-[address] 0.05 % 00:00: both eyes Hospit a drops 00 2 (two) l times a day. buPROPion 2018- Yes 150mg QD Take 150 [facility] XL 6-[address] (WELLBUTRIN 00:00: mouth Hospi ta XL) 150 MG 00 every l 24 hr morning. tablet levothyroxi 2018-0 Yes 25ug QD Take 25 [facility] ne 6-[address] (SYNTHROID, 00:00: mouth Hospi ta LEVOXYL) 50 00 daily. l mcg tablet RESTASIS 2018-0 Yes 1[drp] Q.5D Administer M ethodi MULTIDOSE 6-[address] 0.05 % 00:00: both eyes Hospit a drops 00 2 (two) l times a day. buPROPion 2018-0 Yes 150mg QD Take 150 [facility] XL 6-[address] (WELLBUTRIN 00:00: mouth Hospi ta XL) 150 MG 00 every l 24 hr morning. tablet CRESTOR 5 2021- No 5mg QD Take 5 mg [facility] mg tablet 05-[address] 00:00: 00:00 daily. [facility]osp[facility] 00 :00 l prazosin 2020- No 3mg QD Take 3 mg [facility] (MINIPRESS) 03-[address] 1 MG 00:00: 00:00 nightly. [facility] capsule 00 :00 3x nightly l prazosin 2020- No 3mg QD Take 3 mg [facility] (MINIPRESS) 03-[address] 1 MG 00:00: 00:00 nightly. [facility] capsule 00 :00 3x nightly l BYSTOLIC 10 2020- No 10mg QD Take 10 mg [facility] mg tablet 03-[address] 00:00: 00:00 daily. [facility]osp[facility] 00 :00 l BYSTOLIC 10 2020- No 10mg QD Take 10 mg [facility] mg tablet 5-02 06-[address] 00:00: 00:00 daily. [facility]osp[facility] 00 :00 l ursodiol 2015-0 Yes 300mg Q.5D Take 300 Meth анна (ACTIGALL) 4-[address] 300 mg 00:00: mouth 2 [facility] capsule 00 (two) l times a day. ursodiol 0 Yes 300mg Q.5D Take 300 Meth анна (ACTIGALL) 4-[address] 300 mg 00:00: mouth 2 [facility] capsule 00 (two) l times a day. ursodiol 2015-0 Yes 300mg Q.5D Take 300 Meth анна (ACTIGALL) 4-[address] 300 mg 00:00: mouth 2 [facility] capsule 00 (two) l times a day. promethazin promethazin No promethazi Nathalie e 12.5 mg e 12.5 mg 9-27 ne 12.5 mg [facility] tablet i tablet i 00:00: tablet i d ic p.o. Q 6H p.o. Q 6H 00 p.o. Q 6H Sports prn nausea prn nausea prn nausea Medicin e promethazin promethazin No promethazi Nathalie e 12.5 mg e 12.5 mg 9-27 ne 12.5 mg [facility] tablet i tablet i 00:00: tablet i d ic p.o. Q 6H p.o. Q 6H 00 p.o. Q 6H Sports prn nausea prn nausea prn nausea Medicin e promethazin promethazin No promethazi Nathalie e 12.5 mg e 12.5 mg 9-27 ne 12.5 mg [facility] tablet i tablet i 00:00: tablet i d ic p.o. Q 6H p.o. Q 6H 00 p.o. Q 6H Sports prn nausea prn nausea prn nausea Medicin e promethazin promethazin No promethazi Nathalie e 12.5 mg e 12.5 mg 9-27 ne 12.5 mg [facility] tablet i tablet i 00:00: tablet i d ic p.o. Q 6H p.o. Q 6H 00 p.o. Q 6H Sports prn nausea prn nausea prn nausea Medicin e promethazin promethazin No promethazi Nathalie e 12.5 mg e 12.5 mg 9-27 ne 12.5 mg [facility] tablet i tablet i 00:00: tablet i d ic p.o. Q 6H p.o. Q 6H 00 p.o. Q 6H Sports prn nausea prn nausea prn nausea Medicin e promethazin promethazin No promethazi Nathalie e 12.5 mg e 12.5 mg 9-27 ne 12.5 mg [facility] tablet i tablet i 00:00: tablet i d ic p.o. Q 6H p.o. Q 6H 00 p.o. Q 6H Sports prn nausea prn nausea prn nausea Medicin e Focalin 2.5 Focalin 2.5 No Focalin Nathalie mg tablet mg tablet 9-17 2.5 mg [facility] RX by other RX by other 00:00: tablet RX dic MD SCHMIDT 00 by other Sports MD Tamera corbin gemfibrozil gemfibrozil No gemfibrozi Nathalie 600 mg 600 mg 9-17 l 600 mg [facility] tablet RX tablet RX 00:00: tablet RX dic by other MD by other MD 00 by other Sports MD Tamera corbin Pristiq 50 Pristiq 50 No Pristiq 50 Nathalie mg mg 9-17 mg [facility] tablet,exte tablet,exte 00:00: tablet,ext dic nded nded 00 ended Sports release RX release RX release RX Medicin by other MD by other MD by other e Ritglenis HIGHTOWER Ritalin LA No Ritalin LA Nathalie 20 mg 20 mg 9-17 20 mg [facility] capsule,ext capsule,ext 00:00: capsule,ex dic ended ended 00 tended Sports release RX release RX release RX Medicin by other by other MD by other e MD Nguyen 20 Marisalify 20 No Abilify 20 Nathalie mg tablet mg tablet 9-17 mg tablet [facility] RX by other RX by other 00:00: RX by nelly SCHMIDT MD 00 dulce maria Bedollalify 30 Marisalify 30 No Abilify 30 Nathalie mg tablet mg tablet 9-17 mg tablet [facility] RX by other RX by other 00:00: RX by nelly SCHMIDT MD 00 other MD Julio corbin amlodipine amlodipine No amlodipine Nathalie 2.5 mg 2.5 mg 9-17 2.5 mg [facility] tablet RX tablet RX 00:00: tablet RX dic by other MD by other 00 by other Sports MD Tamera corbin Focalin 2.5 Focalin 2.5 No Focalin Nathalie mg tablet mg tablet 9-17 2.5 mg [facility] RX by other RX by other 00:00: tablet RX dic MD SCHMIDT 00 by other Sports MD Tamera corbin gemfibrozil gemfibrozil No gemfibrozi Nathalie 600 mg 600 mg 9-17 l 600 mg [facility] tablet RX tablet RX 00:00: tablet RX dic by other MD by other 00 by other Sports MD Tamera corbin Pristiq 50 Pristiq 50 No Pristiq 50 Nathalie mg mg 9-17 mg [facility] tablet,exte tablet,exte 00:00: tablet,ext dic nded nded 00 ended Sports release RX release RX release RX Medicin by other MD by other MD by other e Ritglenis LA Ritalin LA No Ritalin LA Nathalie 20 mg 20 mg 9-17 20 mg [facility] capsule,ext capsule,ext 00:00: capsule,ex dic ended ended 00 tended Sports release RX release RX release RX Medicin by other MD by other MD by other shaquille Nguyen 20 Abilify 20 No Abilify 20 Nathalie mg tablet mg tablet 9-17 mg tablet [facility] RX by other RX by other 00:00: RX by dic MD SCHMIDT 00 other MD Julio corbin Abilify 30 Abilify 30 No Abilify 30 Nathalie mg tablet mg tablet 9-17 mg tablet [facility] RX by other RX by other 00:00: RX by nelly SCHMIDT MD 00 other MD Julio corbin amlodipine amlodipine No amlodipine Nathalie 2.5 mg 2.5 mg 9-17 2.5 mg [facility] tablet RX tablet RX 00:00: tablet RX dic by other MD by dulce maria SCHMIDT 00 by other Sports MD Tamera corbin Bystolic Bystolic No Bystolic A zalea 2.5 mg 2.5 mg 9-17 2.5 mg [facility] tablet RX tablet RX 00:00: tablet RX dic by other MD by other 00 by other Sports MD Tamera corbin clonazepam clonazepam No clonazepam Nathalie 0.5 mg 0.5 mg 9-17 0.5 mg [facility] tablet RX tablet RX 00:00: tablet RX dic by other MD by other 00 by other Sports MD Tamera corbin Crestor 10 Crestor 10 No Crestor 10 Nathalie mg tablet mg tablet 9-17 mg tablet [facility] RX by other RX by other 00:00: RX by nelly SCHMIDT MD 00 other MD Julio corbin Focalin 2.5 Focalin 2.5 No Focalin Nathalie mg tablet mg tablet 9-17 2.5 mg [facility] RX by other RX by other 00:00: tablet RX dic MD SCHMIDT 00 by other Sports MD Tamera corbin gemfibrozil gemfibrozil No gemfibrozi Nathalie 600 mg 600 mg 9-17 l 600 mg [facility] tablet RX tablet RX 00:00: tablet RX dic by other MD by other 00 by other Sports MD Tamera corbin Pristiq 50 Pristiq 50 No Pristiq 50 Nathalie mg mg 9-17 mg [facility] tablet,exte tablet,exte 00:00: tablet,ext dic nded nded 00 ended Sports release RX release RX release RX Medicin by other MD by other MD by other e Ritglenis LA Ritalin LA No Ritalin LA Nathalie 20 mg 20 mg 9-17 20 mg [facility] capsule,ext capsule,ext 00:00: capsule,ex dic ended ended 00 tended Sports release RX release RX release RX Medicin by other MD by other MD by other shaquille Nguyen 20 Abilify 20 No Abilify 20 Nathalie mg tablet mg tablet 9-17 mg tablet [facility] RX by other RX by other 00:00: RX by nelly SCHMIDT MD 00 other MD Julio corbin Abilify 30 Abilify 30 No Abilify 30 Nathalie mg tablet mg tablet 9-17 mg tablet [facility] RX by other RX by other 00:00: RX by nelly SCHMIDT MD 00 other MD Julio corbin amlodipine amlodipine No amlodipine Nathalie 2.5 mg 2.5 mg 9-17 2.5 mg [facility] tablet RX tablet RX 00:00: tablet RX dic by other MD by other 00 by other Sports MD Tamera corbin Bystolic Bystolic No Bystolic A zalea 2.5 mg 2.5 mg 9-17 2.5 mg [facility] tablet RX tablet RX 00:00: tablet RX dic by other MD by other 00 by other Sports MD Tamera corbin clonazepam clonazepam No clonazepam Nathalie 0.5 mg 0.5 mg 9-17 0.5 mg [facility] tablet RX tablet RX 00:00: tablet RX dic by other MD by other 00 by other Sports MD Tamera corbin Crestor 10 Crestor 10 No Crestor 10 [place] mg tablet mg tablet 9-17 mg tablet [facility] RX by other RX by other 00:00: RX by dic MD SCHMIDT 00 other MD Julio corbin Focalin 2.5 Focalin 2.5 No Focalin Nathalie mg tablet mg tablet 9-17 2.5 mg [facility] RX by other RX by other 00:00: tablet RX dic MD SCHMIDT 00 by other Sports MD Tamera corbin gemfibrozil gemfibrozil No gemfibrozi Nathalie 600 mg 600 mg 9-17 l 600 mg [facility] tablet RX tablet RX 00:00: tablet RX dic by other MD by other 00 by other Sports MD Tamera corbin Pristiq 50 Pristiq 50 No Pristiq 50 Nathalie mg mg 9-17 mg [facility] tablet,exte tablet,exte 00:00: tablet,ext dic nded nded 00 ended Sports release RX release RX release RX Medicin by other MD by other MD by other e Ritglenis LA Ritalin LA No Ritalin LA Nathalie 20 mg 20 mg 9-17 20 mg [facility] capsule,ext capsule,ext 00:00: capsule,ex dic ended ended 00 tended Sports release RX release RX release RX Medicin by other MD by other MD by other e MD Nguyen 20 Patrick 20 No Abilify 20 Nathalie mg tablet mg tablet 9-17 mg tablet [facility] RX by other RX by other 00:00: RX by dic MD SCHMIDT 00 other MD [facility] Medicin e Abilify 30 Abilify 30 No Abilify 30 Nathalie mg tablet mg tablet 9-17 mg tablet [facility] RX by other RX by other 00:00: RX by dic MD SCHMIDT 00 other MD Julio corbin amlodipine amlodipine No amlodipine Nathalie 2.5 mg 2.5 mg 9-17 2.5 mg [facility] tablet RX tablet RX 00:00: tablet RX dic by other MD by other 00 by other Sports MD Tamera corbin Bystolic Bystolic No Bystolic A zalea 2.5 mg 2.5 mg 9-17 2.5 mg [facility] tablet RX tablet RX 00:00: tablet RX dic by other MD by other 00 by other Sports MD Tamera corbin clonazepam clonazepam No clonazepam Nathalie 0.5 mg 0.5 mg 9-17 0.5 mg [facility] tablet RX tablet RX 00:00: tablet RX dic by other MD by other 00 by other Sports MD Tamera corbin Crestor 10 Crestor 10 No Crestor 10 Nathalie mg tablet mg tablet 9-17 mg tablet [facility] RX by other RX by other 00:00: RX by dic MD SCHMIDT 00 other MD Julio corbin Focalin 2.5 Focalin 2.5 No Focalin Nathalie mg tablet mg tablet 9-17 2.5 mg [facility] RX by other RX by other 00:00: tablet RX dic MD SCHMIDT 00 by other Sports MD Tamera corbin gemfibrozil gemfibrozil No gemfibrozi Nathalie 600 mg 600 mg 9-17 l 600 mg [facility] tablet RX tablet RX 00:00: tablet RX dic by other MD by other 00 by other Sports MD Tamera corbin Pristiq 50 Pristiq 50 No Pristiq 50 Nathalie mg mg 9-17 mg [facility] tablet,exte tablet,exte 00:00: tablet,ext dic nded nded 00 ended Sports release RX release RX release RX Medicin by other MD by other MD by other e MD Lali HIGHTOWER Ritalin LA No Ritalin LA Nathalie 20 mg 20 mg 9-17 20 mg [facility] capsule,ext capsule,ext 00:00: capsule,ex dic ended ended 00 tended Sports release RX release RX release RX Medicin by other MD by other MD by other e MD Nguyen 20 Abilify 20 No Abilify 20 Nathalie mg tablet mg tablet 9-17 mg tablet [facility] RX by other RX by other 00:00: RX by dic MD SCHMIDT 00 other MD Julio corbin Abilify 30 Abilify 30 No Abilify 30 Nathalie mg tablet mg tablet 9-17 mg tablet [facility] RX by other RX by other 00:00: RX by dic MD SCHMIDT 00 other MD Julio corbin amlodipine amlodipine No amlodipine Nathalie 2.5 mg 2.5 mg 9-17 2.5 mg [facility] tablet RX tablet RX 00:00: tablet RX dic by other MD by other MD 00 by other Sports MD Tamera corbin Bystolic Bystolic No Bystolic A zalea 2.5 mg 2.5 mg 9-17 2.5 mg [facility] tablet RX tablet RX 00:00: tablet RX dic by other MD by other MD 00 by other Sports MD Tamera corbin clonazepam clonazepam No clonazepam Nathalie 0.5 mg 0.5 mg 9-17 0.5 mg [facility] tablet RX tablet RX 00:00: tablet RX dic by other MD by other 00 by other Sports MD Tamera corbin Crestor 10 Crestor 10 No Crestor 10 N[place]ie mg tablet mg tablet 9-17 mg tablet [facility] RX by other RX by other 00:00: RX by nelly SCHMIDT MD 00 other MD Julio corbin Focalin 2.5 Focalin 2.5 No Focalin Nathalie mg tablet mg tablet 9-17 2.5 mg [facility] RX by other RX by other 00:00: tablet RX dic MD SCHMIDT 00 by other Sports MD Tamera corbin gemfibrozil gemfibrozil No gemfibrozi Nathalie 600 mg 600 mg 9-17 l 600 mg [facility] tablet RX tablet RX 00:00: tablet RX dic by other MD by dulce maria SCHMIDT 00 by other Sports MD Tamera corbin Pristiq 50 Pristiq 50 No Pristiq 50 N[facility]ie mg mg 9-17 mg [facility] tablet,exte tablet,exte 00:00: tablet,ext dic nded nded 00 ended Sports release RX release RX release RX Medicin by other by other MD by other e Ritglensi LA Ritalin LA No Ritalin LA Nathalie 20 mg 20 mg 9-17 20 mg [facility] capsule,ext capsule,ext 00:00: capsule,ex dic ended ended 00 tended Sports release RX release RX release RX Medicin by other MD by other MD by other e MD Nguyen 20 Abilify 20 No Abilify 20 N[place]ie mg tablet mg tablet 9-17 mg tablet [facility] RX by other RX by other 00:00: RX by dic MD SCHMIDT other Sports Medicin e Abilify 30 Abilify 30 No Abilify 30 N[place]ie mg tablet mg tablet 9-17 mg tablet [facility] RX by other RX by other 00:00: RX by dic MD SCHMIDT other Sports Medicin [place] amlodipine amlodipine No amlodipine Nathalie 2.5 mg 2.5 mg 9-17 2.5 mg [facility] tablet RX tablet RX 00:00: tablet RX dic by other MD by other MD 00 by other Sports Medicin e metronidazo metronidazo No metronidaz Nathalie le 1 % le 1 % ole 1 % [facility] topical gel topical gel topical dic gel Sports Medicin e montelukast montelukast No montelukas Nathalie 10 mg 10 mg t 10 mg [facility] tablet TAKE tablet TAKE tablet dic 1 TABLET BY 1 TABLET BY TAKE 1 Sports MOUTH EVERY MOUTH EVERY TABLET BY Medicin DAY DAY MOUTH e EVERY DAY nebivolol nebivolol No nebivolol Nathalie 10 mg 10 mg 10 mg [facility] tablet tablet tablet dic Sports Medicin e nitrofurant nitrofurant No nitrofuran Nath[place]ie oin oin toin [facility] monohydrate monohydrate monohydrat dic /macrocryst /macrocryst e/macrocry Sports als 100 mg als 100 mg stals 100 Medicin capsule capsule mg capsule e TAKE ONE TAKE ONE TAKE ONE (1) (1) (1) CAPSULE(S) CAPSULE(S) CAPSULE(S) BY MOUTH BY MOUTH BY MOUTH EVERY EVERY EVERY TWELVE TWELVE TWELVE HOURS FOR HOURS FOR HOURS FOR SEVEN DAYS. SEVEN DAYS. SEVEN DAYS. nystatin nystatin No nystatin Aza yeni 100,000 100,000 100,000 [facility] e unit/gram unit/gram unit/gram dic topical topical topical Sports cream cream cream Medicin e ondansetron ondansetron No ondansetro Nathalie 4 mg 4 mg n 4 mg [facility] disintegrat disintegrat disintegra dic ing tablet ing tablet ting Spo rts tablet Medicin e pantoprazol pantoprazol No pantoprazo Nath[place]ie e 40 mg e 40 mg le 40 mg Orth[facility] pe tablet,tommie tablet,tommie tablet,del dic yed release yed release ayed S ports release Medicin e potassium potassium No potassium [place] chloride ER chloride ER chloride [facility] 8 mEq 8 mEq ER 8 mEq dic tablet,exte tablet,exte tablet,ext Sports nded nded ended Medicin release release release e TAKE 1 TAKE 1 TAKE 1 TABLET BY TABLET BY TABLET BY MOUTH TWICE MOUTH TWICE MOUTH DAILY DAILY TWICE DAILY prazosin 1 prazosin 1 No prazosin 1 [place]ie mg capsule mg capsule mg capsule [facility] TAKE 3 TAKE 3 TAKE 3 dic CAPSULES BY CAPSULES BY CAPSULES Sports MOUTH AT MOUTH AT BY MOUTH Med icin BEDTIME. BEDTIME. AT e BEDTIME. prednisone prednisone No prednisone Nath[place]ie 10 mg 10 mg 10 mg [facility] tablet tablet tablet dic Sports Medicin e Rasuvo (PF) Rasuvo (PF) No Rasuvo Nathalie 15 mg/0.3 15 mg/0.3 (PF) 15 Or [facility] mL mL mg/0.3 mL dic subcutaneou subcutaneou subcutaneo Sports s s us Medicin auto-inject auto-inject auto-injec e or or tor Serevent Serevent No Serevent Aza yeni Diskus 50 Diskus 50 Diskus 50 [facility] mcg/dose mcg/dose mcg/dose dic powder for powder for powder for Sports inhalation inhalation inhalation Medicin e sucralfate sucralfate No sucralfate Nathalie 1 gram 1 gram 1 gram [facility] tablet tablet tablet dic Sports Medicin e sulfamethox sulfamethox No sulfametho Nath[place]ie azole 800 azole 800 xazole 800 [facility] mg-trimetho mg-trimetho mg-trimeth dic prim 160 mg prim 160 mg oprim 160 Sports tablet TAKE tablet TAKE mg tablet Medicin 1 TABLET BY 1 TABLET BY TAKE 1 e MOUTH EVERY MOUTH EVERY TABLET BY 12 HOURS 12 HOURS MOUTH FOR 7 DAYS FOR 7 DAYS EVERY 12 HOURS FOR 7 DAYS telmisartan telmisartan No telmisarta Nathalie 80 80 n 80 [facility] mg-hydrochl mg-hydrochl mg-hydroch dic orothiazide orothiazide lorothiazi Sports 12.5 mg 12.5 mg de 12.5 mg Med icin tablet tablet tablet e tizanidine tizanidine No tizanidine Nathalie 4 mg tablet 4 mg tablet 4 mg [facility] TAKE 1 TAKE 1 tablet dic TABLET BY TABLET BY TAKE 1 Spo rts MOUTH TWICE MOUTH TWICE TABLET BY Medicin A DAY A DAY MOUTH e NEEDED NEEDED TWICE A DAY NEEDED tramadol 50 tramadol 50 No tramadol Nathalie mg tablet mg tablet 50 mg [facility] TAKE 1 TAKE 1 tablet dic TABLET BY TABLET BY TAKE 1 Spo rts MOUTH EVERY MOUTH EVERY TABLET BY Medicin SIX HOURS SIX HOURS MOUTH e NEEDED NEEDED EVERY SIX FOR PAIN FOR PAIN HOURS NEEDED FOR PAIN triamcinolo triamcinolo No triamcinol Nathalie ne ne one [facility] acetonide acetonide acetonide dic 0.1 % 0.1 % 0.1 % Sports topical topical topical Medici n cream cream cream e valacyclovi valacyclovi No valacyclov Nathalie r 500 mg r 500 mg ir 500 mg Or [facility]ope tablet TAKE tablet TAKE tablet dic 1 TABLET BY 1 TABLET BY TAKE 1 Sports MOUTH DAILY MOUTH DAILY TABLET BY Medicin MOUTH e DAILY voriconazol voriconazol No voriconazo Nathalie e 200 mg e 200 mg le 200 mg [facility] tablet tablet tablet dic Sports Medicin e Xarelto 10 Xarelto 10 No Xarelto 10 N[place]ie mg tablet mg tablet mg tablet [facility] dic Sports Medicin e Xyrem 500 Xyrem 500 No Xyrem 500 Nath[place]ie mg/mL oral mg/mL oral mg/mL oral [facility] solution RX solution RX solution dic by other MD by other MD RX by Sports other Medicin e zolpidem 10 zolpidem 10 No zolpidem Nathalie mg tablet mg tablet 10 mg [facility] TAKE 1 TAKE 1 tablet dic TABLET BY TABLET BY TAKE 1 Spo rts MOUTH AT MOUTH AT TABLET BY Wa dicin BEDTIME BEDTIME MOUTH AT e BEDTIME amlodipine amlodipine No amlodipine Nathalie 5 mg tablet 5 mg tablet 5 mg [facility] tablet dic Sports Medicin e aripiprazol aripiprazol No aripiprazo Nathalie e 10 mg e 10 mg le 10 mg [facility] pe tablet tablet tablet dic Sports Medicin e aripiprazol aripiprazol No aripiprazo Nathalie e 15 mg e 15 mg le 15 mg [facility] pe tablet TAKE tablet TAKE tablet dic 1 TABLET BY 1 TABLET BY TAKE 1 Sports MOUTH EVERY MOUTH EVERY TABLET BY Medicin DAY DAY MOUTH e EVERY DAY armodafinil armodafinil No armodafini Nathalie 200 mg 200 mg l 200 mg [facility] tablet tablet tablet dic Sports Medicin e armodafinil armodafinil No armodafini Nathalie 250 mg 250 mg l 250 mg [facility] tablet tablet tablet dic Sports Medicin e armodafinil armodafinil No armodafini Nathalie 50 mg 50 mg l 50 mg [facility] tablet tablet tablet dic Sports Medicin e aspirin 81 aspirin 81 No aspirin 81 [place]ie mg chewable mg chewable mg [facility] tablet tablet chewable dic tablet Sports Medicin e aspirin 81 aspirin 81 No aspirin 81 [place] mg mg mg [facility] tablet,tommie tablet,tommie tablet,del dic yed release yed release ayed S ports TAKE 1 TAKE 1 release Medicin TABLET BY TABLET BY TAKE 1 e MOUTH TWICE MOUTH TWICE TABLET BY A DAY A DAY MOUTH TWICE A DAY atorvastati atorvastati No atorvastat Nathalie n 20 mg n 20 mg in 20 mg [facility] pe tablet tablet tablet dic Sports Medicin e budesonide budesonide No budesonide Nathalie 0.5 mg/2 mL 0.5 mg/2 mL 0.5 mg/2 [facility] suspension suspension mL dic for for suspension Sports nebulizatio nebulizatio for M edicin n n nebulizati e on bupropion bupropion No bupropion Nath[place]ie HCl XL 150 HCl XL 150 HCl XL 150 [facility] mg 24 hr mg 24 hr mg 24 hr dic tablet, tablet, tablet, Sports extended extended extended Med icin release release release e TAKE 1 TAKE 1 TAKE 1 TABLET BY TABLET BY TABLET BY MOUTH EVERY MOUTH EVERY MOUTH MORNING MORNING EVERY MORNING ciprofloxac ciprofloxac No ciprofloxa Nathalie in 500 mg in 500 mg jimmy 500 mg [facility] tablet tablet tablet dic Sports Medicin e clonazepam clonazepam No clonazepam Nath[place]ie 1 mg tablet 1 mg tablet 1 mg [facility] TAKE 1 TAKE 1 tablet dic TABLET BY TABLET BY TAKE 1 Spo rts MOUTH TWICE MOUTH TWICE TABLET BY Medicin DAILY DAILY MOUTH e TWICE DAILY clotrimazol clotrimazol No clotrimazo Nath[place]ie e-betametha e-betametha le-betamet [facility] sone 1 sone 1 hasone 1 dic %-0.05 % %-0.05 % %-0.05 % Spo rts topical topical topical Medici n cream APPLY cream APPLY cream e TO AFFECTED TO AFFECTED APPLY TO AREA OF AREA OF AFFECTED SKIN TWO SKIN TWO AREA OF TIMES A DAY TIMES A DAY SKIN TWO TIMES A DAY Crestor 5 Crestor 5 No Crestor 5 Nathalie mg tablet mg tablet mg tablet [facility] TAKE 1 TAKE 1 TAKE 1 dic TABLET BY TABLET BY TABLET BY Sports MOUTH DAILY MOUTH DAILY MOUTH Medicin DAILY e dexmethylph dexmethylph No dexmethylp Nathalie enidate ER enidate ER henidate [facility] 40 mg 40 mg ER 40 mg dic capsule,ext capsule,ext capsule,ex Sports ended ended tended Medicin release release release e [id number] TAKE 1 50 TAKE 1 -50 TAKE 1 CAPSULE (40 CAPSULE (40 CAPSULE MG) BY MG) BY (40 MG) BY MOUTH DAILY MOUTH DAILY MOUTH IN THE IN THE DAILY IN MORNING MORNING THE MORNING dextroamphe dextroamphe No dextroamph Nathalie tamine-amph tamine-amph etamine-am [facility] etamine 10 etamine 10 phetamine dic mg tablet mg tablet 10 mg Spor ts tablet Medicin e dextroamphe dextroamphe No dextroamph Nathalie tamine-amph tamine-amph etamine-am [facility] etamine 15 etamine 15 phetamine dic mg tablet mg tablet 15 mg Spor ts tablet Medicin e duloxetine duloxetine No duloxetine Nathalie 60 mg 60 mg 60 mg [facility] capsule,del capsule,del capsule,de dic ayed ayed layed Sports release release release Medici n e famotidine famotidine No famotidine Nath[place]ie 40 mg 40 mg 40 mg [facility] tablet tablet tablet dic Sports Medicin e ferrous ferrous No ferrous Nath[place]ie fumarate fumarate fumarate [facility] 324 mg (106 324 mg (106 324 mg dic mg iron) mg iron) (106 mg Spor ts tablet TAKE tablet TAKE iron) Medicin 1 TABLET BY 1 TABLET BY tablet e MOUTH DAILY MOUTH DAILY TAKE 1 TABLET BY MOUTH DAILY Flowflex Flowflex No Flowflex Aza yeni COVID-19 COVID-19 COVID-19 [facility] Antigen Antigen Antigen dic Home Test Home Test Home Test Sports kit kit kit Medicin e fluconazole fluconazole No fluconazol Nathalie 150 mg 150 mg e 150 mg [facility] tablet TAKE tablet TAKE tablet dic 1 TABLET BY 1 TABLET BY TAKE 1 Sports MOUTH ONCE MOUTH ONCE TABLET BY Medicin A WEEK A WEEK MOUTH ONCE e A WEEK fluconazole fluconazole No fluconazol Nathalie 200 mg 200 mg e 200 mg [facility] tablet TAKE tablet TAKE tablet dic 1 TABLET BY 1 TABLET BY TAKE 1 Sports MOUTH EVERY MOUTH EVERY TABLET BY Medicin DAY DAY MOUTH e EVERY DAY folic acid folic acid No folic acid Nathalie 1 mg tablet 1 mg tablet 1 mg [facility] TAKE 2 TAKE 2 tablet dic TABLETS BY TABLETS BY TAKE 2 S ports MOUTH EVERY MOUTH EVERY TABLETS BY Medicin DAY DAY MOUTH e EVERY DAY furosemide furosemide No furosemide Nathalie 40 mg 40 mg 40 mg [facility] tablet TAKE tablet TAKE tablet dic 1 TABLET BY 1 TABLET BY TAKE 1 Sports MOUTH TWICE MOUTH TWICE TABLET BY Medicin DAILY DAILY MOUTH e TWICE DAILY gabapentin gabapentin No gabapentin Nathalie 100 mg 100 mg 100 mg [facility] capsule capsule capsule dic [facility] Medicin e glycopyrrol glycopyrrol No glycopyrro Nathalie ate 1 mg ate 1 mg late 1 mg [facility] tablet tablet tablet dic Sports Medicin e hydrocodone hydrocodone No hydrocodon Nathalie 10 10 e 10 [facility] mg-acetamin mg-acetamin mg-acetami dic ophen 325 ophen 325 nophen 325 Sports mg tablet mg tablet mg tablet Medicin Take 1 Take 1 Take 1 e tablet tablet tablet every 6 every 6 every 6 hours by hours by hours by oral route oral route oral route as needed. as needed. as needed. hydrocodone hydrocodone No hydrocodon Nathalie 5 5 e 5 [facility] mg-acetamin mg-acetamin mg-acetami dic ophen 325 ophen 325 nophen 325 Sports mg tablet mg tablet mg tablet Medicin Take 1 Take 1 Take 1 e tablet tablet tablet every 6 every 6 every 6 hours by hours by hours by oral route. oral route. oral route. hydrocodone hydrocodone No hydrocodon Nathalie 7.5 7.5 e 7.5 [facility] mg-acetamin mg-acetamin mg-acetami dic ophen 325 ophen 325 nophen 325 Sports mg tablet mg tablet mg tablet Medicin TAKE 1 TAKE 1 TAKE 1 e TABLET BY TABLET BY TABLET BY MOUTH EVERY MOUTH EVERY MOUTH 4 TO 6 4 TO 6 EVERY 4 TO HOURS HOURS 6 HOURS NEEDED FOR NEEDED FOR NEEDED FOR PAIN PAIN PAIN hydrocortis hydrocortis No hydrocorti Nathalie one 2.5 % one 2.5 % sone 2.5 % [facility] topical topical topical dic cream with cream with cream with Sports perineal perineal perineal Med icin applicator applicator applicator e APPLY TO APPLY TO APPLY TO AFFECTED AFFECTED AFFECTED AREA(S) AREA(S) AREA(S) TWICE DAILY TWICE DAILY TWICE DAILY hydroxychlo hydroxychlo No hydroxychl Nathalie roquine 200 roquine 200 oroquine [facility] mg tablet mg tablet 200 mg dic TAKE 1 TAKE 1 tablet Sports TABLET BY TABLET BY TAKE 1 Med icin ORAL ROUTE ORAL ROUTE TABLET BY e 2 TIMES 2 TIMES ORAL ROUTE EVERY DAY EVERY DAY 2 TIMES FOR RIGHT FOR RIGHT EVERY DAY ARM ARM FOR RIGHT ARM ID NOW ID NOW No ID NOW [place] COVID-19 COVID-19 COVID-19 [facility] [place] Test Kit Test Kit Test Kit dic TEST TEST TEST Sports DIRECTED DIRECTED DIRECTED Med icin TODAY TODAY TODAY e ipratropium ipratropium No ipratropiu Nathalie bromide bromide m bromide [facility] 0.02 % 0.02 % 0.02 % dic solution solution solution Spo rts for for for Medicin inhalation inhalation inhalation e leucovorin leucovorin No leucovorin Nath[place]ie calcium 5 calcium 5 calcium 5 [facility] mg tablet mg tablet mg tablet dic Sports Medicin e levofloxaci levofloxaci No levofloxac Nathalie n 500 mg n 500 mg in 500 mg [facility] tablet tablet tablet dic Sports Medicin e levothyroxi levothyroxi No levothyrox Nathalie ne 25 mcg ne 25 mcg ine 25 mcg [facility] tablet RX tablet RX tablet RX dic by other MD by other MD by other Sports MD Medicin e losartan 50 losartan 50 No losartan Nath[place]ie mg tablet mg tablet 50 mg [facility] tablet dic Sports Medicin e meclizine meclizine No meclizine Nathalie 25 mg 25 mg 25 mg [facility] tablet tablet tablet dic Sports Medicin e meloxicam meloxicam No meloxicam Nath[place]ie 15 mg 15 mg 15 mg [facility] tablet TAKE tablet TAKE tablet dic 1 TABLET BY 1 TABLET BY TAKE 1 Sports MOUTH ONCE MOUTH ONCE TABLET BY Medicin A DAY FOR A DAY FOR MOUTH ONCE e INFLAMMATIO INFLAMMATIO A DAY FOR N N INFLAMMATI ON methocarbam methocarbam No methocarba Nathalie ol 500 mg ol 500 mg mol 500 mg [facility] tablet TAKE tablet TAKE tablet dic 1 TABLET BY 1 TABLET BY TAKE 1 Sports MOUTH EVERY MOUTH EVERY TABLET BY Medicin 6-8 HOURS 6-8 HOURS MOUTH e NEEDED NEEDED EVERY 6-8 MUSCLE MUSCLE HOURS SPASMS SPASMS NEEDED MUSCLE SPASMS methocarbam methocarbam No methocarba Nathalie ol 750 mg ol 750 mg mol 750 mg [facility] tablet Take tablet Take tablet dic 1 tablet 3 1 tablet 3 Take 1 S ports times a day times a day tablet 3 Medicin by oral by oral times a e route. route. day by oral route. methotrexat methotrexat No methotrexa Nathalie e sodium e sodium te sodium [facility] 2.5 mg 2.5 mg 2.5 mg dic tablet tablet tablet Sports Medicin e metolazone metolazone No metolazone Nath[place]ie 2.5 mg 2.5 mg 2.5 mg [facility] tablet TAKE tablet TAKE tablet dic 1 TABLET BY 1 TABLET BY TAKE 1 Sports MOUTH ONCE MOUTH ONCE TABLET BY Medicin A WEEK A WEEK MOUTH ONCE e (TAKE 30 (TAKE 30 A WEEK MINUTES MINUTES (TAKE 30 BEORE BEORE MINUTES FUROSEMIDE) FUROSEMIDE) BEORE FUROSEMIDE ) metolazone metolazone No metolazone Nathalie 5 mg tablet 5 mg tablet 5 mg [facility] tablet dic Sports Medicin e metronidazo metronidazo No metronidaz Nathalie le 1 % le 1 % ole 1 % [facility] topical gel topical gel topical dic gel Sports Medicin e montelukast montelukast No montelukas Nathalie 10 mg 10 mg t 10 mg [facility] tablet TAKE tablet TAKE tablet dic 1 TABLET BY 1 TABLET BY TAKE 1 Sports MOUTH EVERY MOUTH EVERY TABLET BY Medicin DAY DAY MOUTH e EVERY DAY nebivolol nebivolol No nebivolol Nathalie 10 mg 10 mg 10 mg [facility] tablet tablet tablet dic Sports Medicin e nitrofurant nitrofurant No nitrofuran Nath[place]ie oin oin toin [facility] monohydrate monohydrate monohydrat dic /macrocryst /macrocryst e/macrocry Sports als 100 mg als 100 mg stals 100 Medicin capsule capsule mg capsule e TAKE ONE TAKE ONE TAKE ONE (1) (1) (1) CAPSULE(S) CAPSULE(S) CAPSULE(S) BY MOUTH BY MOUTH BY MOUTH EVERY EVERY EVERY TWELVE TWELVE TWELVE HOURS FOR HOURS FOR HOURS FOR SEVEN DAYS. SEVEN DAYS. SEVEN DAYS. nystatin nystatin No nystatin Aza yeni 100,000 100,000 100,000 [facility] e unit/gram unit/gram unit/gram dic topical topical topical Sports cream cream cream Medicin e ondansetron ondansetron No ondansetro Nathalie 4 mg 4 mg n 4 mg [facility] disintegrat disintegrat disintegra dic ing tablet ing tablet ting Spo rts tablet Medicin e pantoprazol pantoprazol No pantoprazo Nathalie e 40 mg e 40 mg le 40 mg [facility] pe tablet,tommie tablet,tommie tablet,del dic yed release yed release ayed S ports release Medicin e potassium potassium No potassium N[place] chloride ER chloride ER chloride [facility] 8 mEq 8 mEq ER 8 mEq dic tablet,exte tablet,exte tablet,ext Sports nded nded ended Medicin release release release e TAKE 1 TAKE 1 TAKE 1 TABLET BY TABLET BY TABLET BY MOUTH TWICE MOUTH TWICE MOUTH DAILY DAILY TWICE DAILY prazosin 1 prazosin 1 No prazosin 1 [place]ie mg capsule mg capsule mg capsule [facility] TAKE 3 TAKE 3 TAKE 3 dic CAPSULES BY CAPSULES BY CAPSULES Sports MOUTH AT MOUTH AT BY MOUTH Med icin BEDTIME. BEDTIME. AT e BEDTIME. prednisone prednisone No prednisone Nathalie 10 mg 10 mg 10 mg [facility] tablet tablet tablet dic Sports Medicin e Rasuvo (PF) Rasuvo (PF) No Rasuvo Nathalie 15 mg/0.3 15 mg/0.3 (PF) 15 [facility] mL mL mg/0.3 mL dic subcutaneou subcutaneou subcutaneo Sports s s us Medicin auto-inject auto-inject auto-injec e or or tor Serevent Serevent No Serevent Aza yeni Diskus 50 Diskus 50 Diskus 50 [facility] mcg/dose mcg/dose mcg/dose dic powder for powder for powder for Sports inhalation inhalation inhalation Medicin e sucralfate sucralfate No sucralfate Nathalie 1 gram 1 gram 1 gram [facility] tablet tablet tablet dic Sports Medicin e sulfamethox sulfamethox No sulfametho Nath[place]ie azole 800 azole 800 xazole 800 [facility] mg-trimetho mg-trimetho mg-trimeth dic prim 160 mg prim 160 mg oprim 160 Sports tablet TAKE tablet TAKE mg tablet Medicin 1 TABLET BY 1 TABLET BY TAKE 1 e MOUTH EVERY MOUTH EVERY TABLET BY 12 HOURS 12 HOURS MOUTH FOR 7 DAYS FOR 7 DAYS EVERY 12 HOURS FOR 7 DAYS telmisartan telmisartan No telmisarta Nathalie 80 80 n 80 [facility] mg-hydrochl mg-hydrochl mg-hydroch dic orothiazide orothiazide lorothiazi Sports 12.5 mg 12.5 mg de 12.5 mg Med icin tablet tablet tablet e tizanidine tizanidine No tizanidine Nathalie 4 mg tablet 4 mg tablet 4 mg [facility] TAKE 1 TAKE 1 tablet dic TABLET BY TABLET BY TAKE 1 Spo rts MOUTH TWICE MOUTH TWICE TABLET BY Medicin A DAY A DAY MOUTH e NEEDED NEEDED TWICE A DAY NEEDED tramadol 50 tramadol 50 No tramadol Nathalie mg tablet mg tablet 50 mg [facility] TAKE 1 TAKE 1 tablet dic TABLET BY TABLET BY TAKE 1 Spo rts MOUTH EVERY MOUTH EVERY TABLET BY Medicin SIX HOURS SIX HOURS MOUTH e NEEDED NEEDED EVERY SIX FOR PAIN FOR PAIN HOURS NEEDED FOR PAIN triamcinolo triamcinolo No triamcinol Nath[place]ie ne ne one [facility] acetonide acetonide acetonide dic 0.1 % 0.1 % 0.1 % Sports topical topical topical Medici n cream cream cream e valacyclovi valacyclovi No valacyclov Nathalie r 500 mg r 500 mg ir 500 mg [facility] tablet TAKE tablet TAKE tablet dic 1 TABLET BY 1 TABLET BY TAKE 1 Sports MOUTH DAILY MOUTH DAILY TABLET BY Medicin MOUTH e DAILY voriconazol voriconazol No voriconazo Nathalie e 200 mg e 200 mg le 200 mg [facility] tablet tablet tablet dic Sports Medicin e Xarelto 10 Xarelto 10 No Xarelto 10 [place] mg tablet mg tablet mg tablet [facility] dic Sports Medicin e Xyrem 500 Xyrem 500 No Xyrem 500 [place] mg/mL oral mg/mL oral mg/mL oral [facility] solution RX solution RX solution dic by other MD by other MD RX by Sports other Medicin e zolpidem 10 zolpidem 10 No zolpidem Nath[place]ie mg tablet mg tablet 10 mg [facility] TAKE 1 TAKE 1 tablet dic TABLET BY TABLET BY TAKE 1 Spo rts MOUTH AT MOUTH AT TABLET BY Wa dicin BEDTIME BEDTIME MOUTH AT e BEDTIME aripiprazol aripiprazol No aripiprazo Nathalie e 15 mg e 15 mg le 15 mg [facility] pe tablet TAKE tablet TAKE tablet dic 1 TABLET BY 1 TABLET BY TAKE 1 Sports MOUTH EVERY MOUTH EVERY TABLET BY Medicin DAY DAY MOUTH e EVERY DAY armodafinil armodafinil No armodafini Nathalie 200 mg 200 mg l 200 mg [facility] tablet tablet tablet dic Sports Medicin e armodafinil armodafinil No armodafini Nath[place]ie 250 mg 250 mg l 250 mg [facility] tablet tablet tablet dic Sports Medicin e armodafinil armodafinil No armodafini Nath[place]ie 50 mg 50 mg l 50 mg [facility] tablet tablet tablet dic Sports Medicin e aspirin 81 aspirin 81 No aspirin 81 [place] mg chewable mg chewable mg [facility] tablet tablet chewable dic tablet Sports Medicin e aspirin 81 aspirin 81 No aspirin 81 [place] mg mg mg [facility] tablet,tommie tablet,tommie tablet,del dic yed release yed release ayed S ports TAKE 1 TAKE 1 release Medicin TABLET BY TABLET BY TAKE 1 e MOUTH TWICE MOUTH TWICE TABLET BY A DAY A DAY MOUTH TWICE A DAY budesonide budesonide No budesonide Nath[facility]ie 0.5 mg/2 mL 0.5 mg/2 mL 0.5 mg/2 [facility] suspension suspension mL dic for for suspension Sports nebulizatio nebulizatio for M edicin n n nebulizati e on bupropion bupropion No bupropion N[place]ie HCl XL 150 HCl XL 150 HCl XL 150 [facility] mg 24 hr mg 24 hr mg 24 hr dic tablet, tablet, tablet, Sports extended extended extended Med icin release release release e TAKE 1 TAKE 1 TAKE 1 TABLET BY TABLET BY TABLET BY MOUTH EVERY MOUTH EVERY MOUTH MORNING MORNING EVERY MORNING ciprofloxac ciprofloxac No ciprofloxa Nath[place]ie in 500 mg in 500 mg jimmy 500 mg [facility] tablet tablet tablet dic Sports Medicin e clonazepam clonazepam No clonazepam [place]ie 1 mg tablet 1 mg tablet 1 mg [facility] TAKE 1 TAKE 1 tablet dic TABLET BY TABLET BY TAKE 1 Spo rts MOUTH TWICE MOUTH TWICE TABLET BY Medicin DAILY DAILY MOUTH e TWICE DAILY clotrimazol clotrimazol No clotrimazo [place]ie e-betametha e-betametha le-betamet [facility] sone 1 sone 1 hasone 1 dic %-0.05 % %-0.05 % %-0.05 % Spo rts topical topical topical Medici n cream APPLY cream APPLY cream e TO AFFECTED TO AFFECTED APPLY TO AREA OF AREA OF AFFECTED SKIN TWO SKIN TWO AREA OF TIMES A DAY TIMES A DAY SKIN TWO TIMES A DAY Crestor 5 Crestor 5 No Crestor 5 Nath[place]ie mg tablet mg tablet mg tablet [facility] TAKE 1 TAKE 1 TAKE 1 dic TABLET BY TABLET BY TABLET BY Sports MOUTH DAILY MOUTH DAILY MOUTH Medicin DAILY e dexmethylph dexmethylph No dexmethylp [place]ie enidate ER enidate ER henidate [facility] 40 mg 40 mg ER 40 mg dic capsule,ext capsule,ext capsule,ex Sports ended ended tended Medicin release release release e [id number] 50 TAKE 1 50 TAKE 1 -50 TAKE 1 CAPSULE (40 CAPSULE (40 CAPSULE MG) BY MG) BY (40 MG) BY MOUTH DAILY MOUTH DAILY MOUTH IN THE IN THE DAILY IN MORNING MORNING THE MORNING dextroamphe dextroamphe No dextroamph Nath[place]ie tamine-amph tamine-amph etamine-am [facility] etamine 10 etamine 10 phetamine dic mg tablet mg tablet 10 mg Spor ts tablet Medicin e dextroamphe dextroamphe No dextroamph Nath[place]ie tamine-amph tamine-amph etamine-am [facility] etamine 15 etamine 15 phetamine dic mg tablet mg tablet 15 mg Spor ts tablet Medicin e duloxetine duloxetine No duloxetine Nath[place]ie 60 mg 60 mg 60 mg [facility] capsule,del capsule,del capsule,de dic ayed ayed layed Sports release release release Medici n e famotidine famotidine No famotidine [place] 40 mg 40 mg 40 mg [facility] tablet tablet tablet dic Sports Medicin e ferrous ferrous No ferrous [place] fumarate fumarate fumarate [facility] 324 mg (106 324 mg (106 324 mg dic mg iron) mg iron) (106 mg [facility] ts tablet TAKE tablet TAKE iron) Medicin 1 TABLET BY 1 TABLET BY tablet e MOUTH DAILY MOUTH DAILY TAKE 1 TABLET BY MOUTH DAILY fluconazole fluconazole No fluconazol [place] 150 mg 150 mg e 150 mg [facility] tablet TAKE tablet TAKE tablet dic 1 TABLET BY 1 TABLET BY TAKE 1 Sports MOUTH ONCE MOUTH ONCE TABLET BY Medicin A WEEK A WEEK MOUTH ONCE e A WEEK fluconazole fluconazole No fluconazol [facility] 200 mg 200 mg e 200 mg [facility] tablet TAKE tablet TAKE tablet dic 1 TABLET BY 1 TABLET BY TAKE 1 Sports MOUTH EVERY MOUTH EVERY TABLET BY Medicin DAY DAY MOUTH e EVERY DAY folic acid folic acid No folic acid [place] 1 mg tablet 1 mg tablet 1 mg [facility] TAKE 2 TAKE 2 tablet dic TABLETS BY TABLETS BY TAKE 2 S ports MOUTH EVERY MOUTH EVERY TABLETS BY Medicin DAY DAY MOUTH e EVERY DAY furosemide furosemide No furosemide [place] 40 mg 40 mg 40 mg [facility] tablet TAKE tablet TAKE tablet dic 1 TABLET BY 1 TABLET BY TAKE 1 Sports MOUTH TWICE MOUTH TWICE TABLET BY Medicin DAILY DAILY MOUTH e TWICE DAILY gabapentin gabapentin No gabapentin [place] 100 mg 100 mg 100 mg [facility] capsule capsule capsule dic [facility] e glycopyrrol glycopyrrol No glycopyrro N[place] ate 1 mg ate 1 mg late 1 mg [facility] tablet tablet tablet dic [facility] Medicin e hydrocodone hydrocodone No hydrocodon [facility] 10 10 e 10 [facility] mg-acetamin mg-acetamin mg-acetami dic ophen 325 ophen 325 nophen 325 Sports mg tablet mg tablet mg tablet Medicin Take 1 Take 1 Take 1 e tablet tablet tablet every 6 every 6 every 6 hours by hours by hours by oral route oral route oral route as needed. as needed. as needed. hydrocodone hydrocodone No hydrocodon [facility] 7.5 7.5 e 7.5 [facility] mg-acetamin mg-acetamin mg-acetami dic ophen 325 ophen 325 nophen 325 Sports mg tablet mg tablet mg tablet Medicin TAKE 1 TAKE 1 TAKE 1 e TABLET BY TABLET BY TABLET BY MOUTH EVERY MOUTH EVERY MOUTH 4 TO 6 4 TO 6 EVERY 4 TO HOURS HOURS 6 HOURS NEEDED FOR NEEDED FOR NEEDED FOR PAIN PAIN PAIN hydrocortis hydrocortis No hydrocorti [place] one 2.5 % one 2.5 % sone 2.5 % [facility] topical topical topical dic cream with cream with cream with Sports perineal perineal perineal Med icin applicator applicator applicator e APPLY TO APPLY TO APPLY TO AFFECTED AFFECTED AFFECTED AREA(S) AREA(S) AREA(S) TWICE DAILY TWICE DAILY TWICE DAILY hydroxychlo hydroxychlo No hydroxychl [place] roquine 200 roquine 200 oroquine [facility] mg tablet mg tablet 200 mg dic TAKE 1 TAKE 1 tablet Sports TABLET BY TABLET BY TAKE 1 Med icin ORAL ROUTE ORAL ROUTE TABLET BY e 2 TIMES 2 TIMES ORAL ROUTE EVERY DAY EVERY DAY 2 TIMES FOR RIGHT FOR RIGHT EVERY DAY ARM ARM FOR RIGHT ARM ID NOW ID NOW No ID NOW [facility] COVID-19 COVID-19 COVID-19 [facility] Test Kit Test Kit Test Kit dic TEST TEST TEST Sports DIRECTED DIRECTED DIRECTED Med icin TODAY TODAY TODAY e ipratropium ipratropium No ipratropiu [place] bromide bromide m bromide [facility] 0.02 % 0.02 % 0.02 % dic solution solution solution Spo rts for for for Medicin inhalation inhalation inhalation e leucovorin leucovorin No leucovorin N[place] calcium 5 calcium 5 calcium 5 [facility] mg tablet mg tablet mg tablet dic Sports Medicin e levofloxaci levofloxaci No levofloxac [place] n 500 mg n 500 mg in 500 mg [facility] tablet tablet tablet dic Sports Medicin e levothyroxi levothyroxi No levothyrox N[place] ne 25 mcg ne 25 mcg ine 25 mcg [facility] tablet RX tablet RX tablet RX dic by other MD by other MD by other Sports MD Medicin e losartan 50 losartan 50 No losartan [place] mg tablet mg tablet 50 mg [facility] tablet dic Sports Medicin e meloxicam meloxicam No meloxicam N[place] 15 mg 15 mg 15 mg [facility] tablet TAKE tablet TAKE tablet dic 1 TABLET BY 1 TABLET BY TAKE 1 Sports MOUTH ONCE MOUTH ONCE TABLET BY Medicin A DAY FOR A DAY FOR MOUTH ONCE e INFLAMMATIO INFLAMMATIO A DAY FOR N N INFLAMMATI ON methocarbam methocarbam No methocarba [place] ol 500 mg ol 500 mg mol 500 mg [facility] tablet TAKE tablet TAKE tablet dic 1 TABLET BY 1 TABLET BY TAKE 1 Sports MOUTH EVERY MOUTH EVERY TABLET BY Medicin 6-8 HOURS 6-8 HOURS MOUTH e NEEDED NEEDED EVERY 6-8 MUSCLE MUSCLE HOURS SPASMS SPASMS NEEDED MUSCLE SPASMS methotrexat methotrexat No methotrexa [place] e sodium e sodium te sodium [facility] 2.5 mg 2.5 mg 2.5 mg dic tablet tablet tablet Sports Medicin e metolazone metolazone No metolazone [place] 2.5 mg 2.5 mg 2.5 mg [facility] tablet TAKE tablet TAKE tablet dic 1 TABLET BY 1 TABLET BY TAKE 1 Sports MOUTH ONCE MOUTH ONCE TABLET BY Medicin A WEEK A WEEK MOUTH ONCE e (TAKE 30 (TAKE 30 A WEEK MINUTES MINUTES (TAKE 30 BEORE BEORE MINUTES FUROSEMIDE) FUROSEMIDE) BEORE FUROSEMIDE ) metolazone metolazone No metolazone [place] 5 mg tablet 5 mg tablet 5 mg [facility] tablet dic Sports Medicin e metronidazo metronidazo No metronidaz [place] le 1 % le 1 % ole 1 % [facility] topical gel topical gel topical dic gel Sports Medicin e montelukast montelukast No montelukas [place] 10 mg 10 mg t 10 mg [facility] tablet TAKE tablet TAKE tablet dic 1 TABLET BY 1 TABLET BY TAKE 1 Sports MOUTH EVERY MOUTH EVERY TABLET BY Medicin DAY DAY MOUTH e EVERY DAY nebivolol nebivolol No nebivolol N[place] 10 mg 10 mg 10 mg [facility] tablet tablet tablet dic Sports Medicin e nitrofurant nitrofurant No nitrofuran [place] oin oin toin [facility] monohydrate monohydrate monohydrat dic /macrocryst /macrocryst e/macrocry Sports als 100 mg als 100 mg stals 100 [facility] capsule capsule mg capsule e TAKE ONE TAKE ONE TAKE ONE (1) (1) (1) CAPSULE(S) CAPSULE(S) CAPSULE(S) BY MOUTH BY MOUTH BY MOUTH EVERY EVERY EVERY TWELVE TWELVE TWELVE HOURS FOR HOURS FOR HOURS FOR SEVEN DAYS. SEVEN DAYS. SEVEN DAYS. nystatin nystatin No nystatin Aza yeni 100,000 100,000 100,000 [facility] e unit/gram unit/gram unit/gram dic topical topical topical Sports cream cream cream Medicin e ondansetron ondansetron No ondansetro [place] 4 mg 4 mg n 4 mg [facility] disintegrat disintegrat disintegra dic ing tablet ing tablet ting Spo rts tablet Medicin e pantoprazol pantoprazol No pantoprazo [place] e 40 mg e 40 mg le 40 mg [facility] pe tablet,tommie tablet,tommie tablet,del dic yed release yed release ayed S ports release Medicin e potassium potassium No potassium [place] chloride ER chloride ER chloride [facility] 8 mEq 8 mEq ER 8 mEq dic tablet,exte tablet,exte tablet,ext Sports nded nded ended Medicin release release release e TAKE 1 TAKE 1 TAKE 1 TABLET BY TABLET BY TABLET BY MOUTH TWICE MOUTH TWICE MOUTH DAILY DAILY TWICE DAILY prazosin 1 prazosin 1 No prazosin 1 [facility] mg capsule mg capsule mg capsule [facility] TAKE 3 TAKE 3 TAKE 3 dic CAPSULES BY CAPSULES BY CAPSULES Sports MOUTH AT MOUTH AT BY MOUTH Med icin BEDTIME. BEDTIME. AT e BEDTIME. prednisone prednisone No prednisone [facility] 10 mg 10 mg 10 mg [facility] tablet tablet tablet dic Sports Medicin e Rasuvo (PF) Rasuvo (PF) No Rasuvo [facility] 15 mg/0.3 15 mg/0.3 (PF) 15 [facility] mL mL mg/0.3 mL dic subcutaneou subcutaneou subcutaneo Sports s s Medicin auto-inject auto-inject auto-injec e or or tor Serevent Serevent No Serevent Aza yeni Diskus 50 Diskus 50 Diskus 50 [facility] mcg/dose mcg/dose mcg/dose dic powder for powder for powder for Sports inhalation inhalation inhalation Medicin e sucralfate sucralfate No sucralfate [place] 1 gram 1 gram 1 gram [facility] tablet tablet tablet dic Sports Medicin e sulfamethox sulfamethox No sulfametho [place] azole 800 azole 800 xazole 800 [facility] mg-trimetho mg-trimetho mg-trimeth dic prim 160 mg prim 160 mg oprim 160 Sports tablet TAKE tablet TAKE mg tablet Medicin 1 TABLET BY 1 TABLET BY TAKE 1 e MOUTH EVERY MOUTH EVERY TABLET BY 12 HOURS 12 HOURS MOUTH FOR 7 DAYS FOR 7 DAYS EVERY 12 HOURS FOR 7 DAYS tizanidine tizanidine No tizanidine [place] 4 mg tablet 4 mg tablet 4 mg [facility] TAKE 1 TAKE 1 tablet dic TABLET BY TABLET BY TAKE 1 Spo rts MOUTH TWICE MOUTH TWICE TABLET BY Medicin A DAY A DAY MOUTH e NEEDED NEEDED TWICE A DAY NEEDED tramadol 50 tramadol 50 No tramadol [place] mg tablet mg tablet 50 mg [facility] TAKE 1 TAKE 1 tablet dic TABLET BY TABLET BY TAKE 1 Spo rts MOUTH EVERY MOUTH EVERY TABLET BY Medicin SIX HOURS SIX HOURS MOUTH e NEEDED NEEDED EVERY SIX FOR PAIN FOR PAIN HOURS NEEDED FOR PAIN triamcinolo triamcinolo No triamcinol [facility] ne ne one [facility] acetonide acetonide acetonide dic 0.1 % 0.1 % 0.1 % Sports topical topical topical Medici n cream cream cream e valacyclovi valacyclovi No valacyclov [place] r 500 mg r 500 mg ir 500 mg [facility] tablet TAKE tablet TAKE tablet dic 1 TABLET BY 1 TABLET BY TAKE 1 Sports MOUTH DAILY MOUTH DAILY TABLET BY Medicin MOUTH e DAILY voriconazol voriconazol No voriconazo N[place] e 200 mg e 200 mg le 200 mg [facility] tablet tablet tablet dic Sports Medicin e Xarelto 10 Xarelto 10 No Xarelto 10 [place] mg tablet mg tablet mg tablet [facility] dic Sports Medicin e Xyrem 500 Xyrem 500 No Xyrem 500 [facility] mg/mL oral mg/mL oral mg/mL oral [facility] solution RX solution RX solution dic by other MD by other MD RX by Sports other MD Medicin e zolpidem 10 zolpidem 10 No zolpidem [place] mg tablet mg tablet 10 mg [facility] TAKE 1 TAKE 1 tablet dic TABLET BY TABLET BY TAKE 1 Spo rts MOUTH AT MOUTH AT TABLET BY Wa dicin BEDTIME BEDTIME MOUTH AT e BEDTIME aripiprazol aripiprazol No aripiprazo [place] e 15 mg e 15 mg le 15 mg [facility] pe tablet TAKE tablet TAKE tablet dic 1 TABLET BY 1 TABLET BY TAKE 1 Sports MOUTH EVERY MOUTH EVERY TABLET BY Medicin DAY DAY MOUTH e EVERY DAY armodafinil armodafinil No armodafini N[place] 200 mg 200 mg l 200 mg [facility] tablet tablet tablet dic Sports Medicin e armodafinil armodafinil No armodafini N[place] 250 mg 250 mg l 250 mg [facility] tablet tablet tablet dic Sports Medicin e armodafinil armodafinil No armodafini N[place] 50 mg 50 mg l 50 mg [facility] tablet tablet tablet dic Sports Medicin e aspirin 81 aspirin 81 No aspirin 81 [place] mg chewable mg chewable mg [facility] tablet tablet chewable dic tablet Sports Medicin e aspirin 81 aspirin 81 No aspirin 81 [place] mg mg mg [facility] tablet,tommie tablet,tommie tablet,del dic yed release yed release ayed S ports TAKE 1 TAKE 1 release Medicin TABLET BY TABLET BY TAKE 1 e MOUTH TWICE MOUTH TWICE TABLET BY A DAY A DAY MOUTH TWICE A DAY budesonide budesonide No budesonide [facility] 0.5 mg/2 mL 0.5 mg/2 mL 0.5 mg/2 [facility] suspension suspension mL dic for for suspension Sports nebulizatio nebulizatio for M edicin n n nebulizati e on bupropion bupropion No bupropion [place] HCl XL 150 HCl XL 150 HCl XL 150 [facility] mg 24 hr mg 24 hr mg 24 hr dic tablet, tablet, tablet, Sports extended extended extended Med icin release release release e TAKE 1 TAKE 1 TAKE 1 TABLET BY TABLET BY TABLET BY MOUTH EVERY MOUTH EVERY MOUTH MORNING MORNING EVERY MORNING ciprofloxac ciprofloxac No ciprofloxa [place] in 500 mg in 500 mg jimmy 500 mg [facility] tablet tablet tablet dic Sports Medicin e clonazepam clonazepam No clonazepam [place] 1 mg tablet 1 mg tablet 1 mg [facility] TAKE 1 TAKE 1 tablet dic TABLET BY TABLET BY TAKE 1 Spo rts MOUTH TWICE MOUTH TWICE TABLET BY Medicin DAILY DAILY MOUTH e TWICE DAILY clotrimazol clotrimazol No clotrimazo [facility] e-betametha e-betametha le-betamet [facility] sone 1 sone 1 hasone 1 dic %-0.05 % %-0.05 % %-0.05 % Spo rts topical topical topical Medici n cream APPLY cream APPLY cream e TO AFFECTED TO AFFECTED APPLY TO AREA OF AREA OF AFFECTED SKIN TWO SKIN TWO AREA OF TIMES A DAY TIMES A DAY SKIN TWO TIMES A DAY Crestor 5 Crestor 5 No Crestor 5 [facility] mg tablet mg tablet mg tablet [facility] TAKE 1 TAKE 1 TAKE 1 dic TABLET BY TABLET BY TABLET BY Sports MOUTH DAILY MOUTH DAILY MOUTH Medicin DAILY e dexmethylph dexmethylph No dexmethylp [place] enidate ER enidate ER henidate [facility] 40 mg 40 mg ER 40 mg dic capsule,ext capsule,ext capsule,ex Sports ended ended tended Medicin release release release e [id number] 50 TAKE 1 50 TAKE 1 -50 TAKE 1 CAPSULE (40 CAPSULE (40 CAPSULE MG) BY MG) BY (40 MG) BY MOUTH DAILY MOUTH DAILY MOUTH IN THE IN THE DAILY IN MORNING MORNING THE MORNING dextroamphe dextroamphe No dextroamph [facility] tamine-amph tamine-amph etamine-am [facility] etamine 10 etamine 10 phetamine dic mg tablet mg tablet 10 mg Spor ts tablet Medicin e dextroamphe dextroamphe No dextroamph [place] tamine-amph tamine-amph etamine-am [facility] etamine 15 etamine 15 phetamine dic mg tablet mg tablet 15 mg Spor ts tablet Medicin e duloxetine duloxetine No duloxetine [facility] 60 mg 60 mg 60 mg [facility] capsule,del capsule,del capsule,de dic ayed ayed layed Sports release release release Medici n e famotidine famotidine No famotidine [place] 40 mg 40 mg 40 mg [facility] tablet tablet tablet dic Sports Medicin e ferrous ferrous No ferrous [place] fumarate fumarate fumarate [facility] 324 mg (106 324 mg (106 324 mg dic mg iron) mg iron) (106 mg [facility] ts tablet TAKE tablet TAKE iron) Medicin 1 TABLET BY 1 TABLET BY tablet e MOUTH DAILY MOUTH DAILY TAKE 1 TABLET BY MOUTH DAILY fluconazole fluconazole No fluconazol [place] 150 mg 150 mg e 150 mg [facility] tablet TAKE tablet TAKE tablet dic 1 TABLET BY 1 TABLET BY TAKE 1 Sports MOUTH ONCE MOUTH ONCE TABLET BY Medicin A WEEK A WEEK MOUTH ONCE e A WEEK fluconazole fluconazole No fluconazol N[place] 200 mg 200 mg e 200 mg [facility] tablet TAKE tablet TAKE tablet dic 1 TABLET BY 1 TABLET BY TAKE 1 Sports MOUTH EVERY MOUTH EVERY TABLET BY Medicin DAY DAY MOUTH e EVERY DAY folic acid folic acid No folic acid N[place] 1 mg tablet 1 mg tablet 1 mg [facility] TAKE 2 TAKE 2 tablet dic TABLETS BY TABLETS BY TAKE 2 S ports MOUTH EVERY MOUTH EVERY TABLETS BY Medicin DAY DAY MOUTH e EVERY DAY furosemide furosemide No furosemide [place] 40 mg 40 mg 40 mg [facility] tablet TAKE tablet TAKE tablet dic 1 TABLET BY 1 TABLET BY TAKE 1 Sports MOUTH TWICE MOUTH TWICE TABLET BY Medicin DAILY DAILY MOUTH e TWICE DAILY gabapentin gabapentin No gabapentin N[place] 100 mg 100 mg 100 mg [facility] capsule capsule capsule dic Sports Medicin e glycopyrrol glycopyrrol No glycopyrro [place] ate 1 mg ate 1 mg late 1 mg [facility] tablet tablet tablet dic Sports Medicin e hydrocodone hydrocodone No hydrocodon [facility] 10 10 e 10 [facility] mg-acetamin mg-acetamin mg-acetami dic ophen 325 ophen 325 nophen 325 Sports mg tablet mg tablet mg tablet Medicin Take 1 Take 1 Take 1 e tablet tablet tablet every 6 every 6 every 6 hours by hours by hours by oral route oral route oral route as needed. as needed. as needed. hydrocodone hydrocodone No hydrocodon [facility] 7.5 7.5 e 7.5 [facility] mg-acetamin mg-acetamin mg-acetami dic ophen 325 ophen 325 nophen 325 Sports mg tablet mg tablet mg tablet Medicin TAKE 1 TAKE 1 TAKE 1 e TABLET BY TABLET BY TABLET BY MOUTH EVERY MOUTH EVERY MOUTH 4 TO 6 4 TO 6 EVERY 4 TO HOURS HOURS 6 HOURS NEEDED FOR NEEDED FOR NEEDED FOR PAIN PAIN PAIN hydrocortis hydrocortis No hydrocorti [facility] one 2.5 % one 2.5 % sone 2.5 % [facility] topical topical topical dic cream with cream with cream with Sports perineal perineal perineal Med icin applicator applicator applicator e APPLY TO APPLY TO APPLY TO AFFECTED AFFECTED AFFECTED AREA(S) AREA(S) AREA(S) TWICE DAILY TWICE DAILY TWICE DAILY hydroxychlo hydroxychlo No hydroxychl [facility] roquine 200 roquine 200 oroquine [facility] mg tablet mg tablet 200 mg dic TAKE 1 TAKE 1 tablet Sports TABLET BY TABLET BY TAKE 1 Med icin ORAL ROUTE ORAL ROUTE TABLET BY e 2 TIMES 2 TIMES ORAL ROUTE EVERY DAY EVERY DAY 2 TIMES FOR RIGHT FOR RIGHT EVERY DAY ARM ARM FOR RIGHT ARM ID NOW ID NOW No ID NOW [facility] COVID-19 COVID-19 COVID-19 [facility] Test Kit Test Kit Test Kit dic TEST TEST TEST Sports DIRECTED DIRECTED DIRECTED Med icin TODAY TODAY TODAY e ipratropium ipratropium No ipratropiu [place] bromide bromide m bromide [facility] 0.02 % 0.02 % 0.02 % dic solution solution solution Spo rts for for for Medicin inhalation inhalation inhalation e leucovorin leucovorin No leucovorin N[place] calcium 5 calcium 5 calcium 5 [facility] mg tablet mg tablet mg tablet dic Sports Medicin e levofloxaci levofloxaci No levofloxac [place] n 500 mg n 500 mg in 500 mg [facility] tablet tablet tablet dic Sports Medicin e levothyroxi levothyroxi No levothyrox N[place] ne 25 mcg ne 25 mcg ine 25 mcg [facility] tablet RX tablet RX tablet RX dic by other MD by other MD by other Sports MD Medicin e losartan 50 losartan 50 No losartan [facility] mg tablet mg tablet 50 mg [facility] tablet dic Sports Medicin e meloxicam meloxicam No meloxicam N[facility] 15 mg 15 mg 15 mg [facility] tablet TAKE tablet TAKE tablet dic 1 TABLET BY 1 TABLET BY TAKE 1 Sports MOUTH ONCE MOUTH ONCE TABLET BY Medicin A DAY FOR A DAY FOR MOUTH ONCE e INFLAMMATIO INFLAMMATIO A DAY FOR N N INFLAMMATI ON methocarbam methocarbam No methocarba N[facility] ol 500 mg ol 500 mg mol 500 mg [facility] tablet TAKE tablet TAKE tablet dic 1 TABLET BY 1 TABLET BY TAKE 1 Sports MOUTH EVERY MOUTH EVERY TABLET BY Medicin 6-8 HOURS 6-8 HOURS MOUTH e NEEDED NEEDED EVERY 6-8 MUSCLE MUSCLE HOURS SPASMS SPASMS NEEDED MUSCLE SPASMS methotrexat methotrexat No methotrexa [facility] e sodium e sodium te sodium [facility] 2.5 mg 2.5 mg 2.5 mg dic tablet tablet tablet Sports Medicin e metolazone metolazone No metolazone [facility] 2.5 mg 2.5 mg 2.5 mg [facility] tablet TAKE tablet TAKE tablet dic 1 TABLET BY 1 TABLET BY TAKE 1 Sports MOUTH ONCE MOUTH ONCE TABLET BY Medicin A WEEK A WEEK MOUTH ONCE e (TAKE 30 (TAKE 30 A WEEK MINUTES MINUTES (TAKE 30 BEORE BEORE MINUTES FUROSEMIDE) FUROSEMIDE) BEORE FUROSEMIDE ) metolazone metolazone No metolazone [place] 5 mg tablet 5 mg tablet 5 mg [facility] tablet dic Sports Medicin e metronidazo metronidazo No metronidaz [place] le 1 % le 1 % ole 1 % [facility] topical gel topical gel topical dic gel Sports Medicin e montelukast montelukast No montelukas [place] 10 mg 10 mg t 10 mg [facility] tablet TAKE tablet TAKE tablet dic 1 TABLET BY 1 TABLET BY TAKE 1 Sports MOUTH EVERY MOUTH EVERY TABLET BY Medicin DAY DAY MOUTH e EVERY DAY nebivolol nebivolol No nebivolol N[place] 10 mg 10 mg 10 mg [facility] tablet tablet tablet dic Sports Medicin e nitrofurant nitrofurant No nitrofuran [place] oin oin toin [facility] monohydrate monohydrate monohydrat dic /macrocryst /macrocryst e/macrocry Sports als 100 mg als 100 mg stals 100 [facility] capsule capsule mg capsule e TAKE ONE TAKE ONE TAKE ONE (1) (1) (1) CAPSULE(S) CAPSULE(S) CAPSULE(S) BY MOUTH BY MOUTH BY MOUTH EVERY EVERY EVERY TWELVE TWELVE TWELVE HOURS FOR HOURS FOR HOURS FOR SEVEN DAYS. SEVEN DAYS. SEVEN DAYS. nystatin nystatin No nystatin Aza yeni 100,000 100,000 100,000 [facility] e unit/gram unit/gram unit/gram dic topical topical topical Sports cream cream cream Medicin e ondansetron ondansetron No ondansetro [facility] 4 mg 4 mg n 4 mg [facility] disintegrat disintegrat disintegra dic ing tablet ing tablet ting Spo rts tablet Medicin e pantoprazol pantoprazol No pantoprazo [place] e 40 mg e 40 mg le 40 mg [facility] pe tablet,tommie tablet,tommie tablet,del dic yed release yed release ayed S ports release Medicin e potassium potassium No potassium [place] chloride ER chloride ER chloride [facility] 8 mEq 8 mEq ER 8 mEq dic tablet,exte tablet,exte tablet,ext Sports nded nded ended Medicin release release release e TAKE 1 TAKE 1 TAKE 1 TABLET BY TABLET BY TABLET BY MOUTH TWICE MOUTH TWICE MOUTH DAILY DAILY TWICE DAILY prazosin 1 prazosin 1 No prazosin 1 [facility] mg capsule mg capsule mg capsule [facility] TAKE 3 TAKE 3 TAKE 3 dic CAPSULES BY CAPSULES BY CAPSULES Sports MOUTH AT MOUTH AT BY MOUTH Med icin BEDTIME. BEDTIME. AT e BEDTIME. prednisone prednisone No prednisone [facility] 10 mg 10 mg 10 mg [facility] tablet tablet tablet dic Sports Medicin e Rasuvo (PF) Rasuvo (PF) No Rasuvo [facility] 15 mg/0.3 15 mg/0.3 (PF) 15 [facility] mL mL mg/0.3 mL dic subcutaneou subcutaneou subcutaneo Sports s s Medicin auto-inject auto-inject auto-injec e or or tor Serevent Serevent No Serevent Aza yeni Diskus 50 Diskus 50 Diskus 50 [facility] mcg/dose mcg/dose mcg/dose dic powder for powder for powder for Sports inhalation inhalation inhalation Medicin e sucralfate sucralfate No sucralfate [place] 1 gram 1 gram 1 gram [facility] tablet tablet tablet dic Sports Medicin e sulfamethox sulfamethox No sulfametho [place] azole 800 azole 800 xazole 800 [facility] mg-trimetho mg-trimetho mg-trimeth dic prim 160 mg prim 160 mg oprim 160 Sports tablet TAKE tablet TAKE mg tablet Medicin 1 TABLET BY 1 TABLET BY TAKE 1 e MOUTH EVERY MOUTH EVERY TABLET BY 12 HOURS 12 HOURS MOUTH FOR 7 DAYS FOR 7 DAYS EVERY 12 HOURS FOR 7 DAYS tizanidine tizanidine No tizanidine [facility] 4 mg tablet 4 mg tablet 4 mg [facility] TAKE 1 TAKE 1 tablet dic TABLET BY TABLET BY TAKE 1 Spo rts MOUTH TWICE MOUTH TWICE TABLET BY Medicin A DAY A DAY MOUTH e NEEDED NEEDED TWICE A DAY NEEDED tramadol 50 tramadol 50 No tramadol [facility] mg tablet mg tablet 50 mg [facility] TAKE 1 TAKE 1 tablet dic TABLET BY TABLET BY TAKE 1 Spo rts MOUTH EVERY MOUTH EVERY TABLET BY Medicin SIX HOURS SIX HOURS MOUTH e NEEDED NEEDED EVERY SIX FOR PAIN FOR PAIN HOURS NEEDED FOR PAIN triamcinolo triamcinolo No triamcinol [facility] ne ne one [facility] acetonide acetonide acetonide dic 0.1 % 0.1 % 0.1 % Sports topical topical topical Medici n cream cream cream e valacyclovi valacyclovi No valacyclov [place] r 500 mg r 500 mg ir 500 mg [facility] tablet TAKE tablet TAKE tablet dic 1 TABLET BY 1 TABLET BY TAKE 1 Sports MOUTH DAILY MOUTH DAILY TABLET BY Medicin MOUTH e DAILY voriconazol voriconazol No voriconazo N[place] e 200 mg e 200 mg le 200 mg [facility] tablet tablet tablet dic Sports Medicin e Xarelto 10 Xarelto 10 No Xarelto 10 [place] mg tablet mg tablet mg tablet [facility] dic Sports Medicin e Xyrem 500 Xyrem 500 No Xyrem 500 [facility] mg/mL oral mg/mL oral mg/mL oral [facility] solution RX solution RX solution dic by other MD by other RX by Sports other MD Medicin e zolpidem 10 zolpidem 10 No zolpidem [facility] mg tablet mg tablet 10 mg [facility] TAKE 1 TAKE 1 tablet dic TABLET BY TABLET BY TAKE 1 Spo rts MOUTH AT MOUTH AT TABLET BY Wa dicin BEDTIME BEDTIME MOUTH AT e BEDTIME aripiprazol aripiprazol No aripiprazo [place] e 15 mg e 15 mg le 15 mg [facility] pe tablet TAKE tablet TAKE tablet dic 1 TABLET BY 1 TABLET BY TAKE 1 Sports MOUTH EVERY MOUTH EVERY TABLET BY Medicin DAY DAY MOUTH e EVERY DAY armodafinil armodafinil No armodafini N[place] 200 mg 200 mg l 200 mg [facility] tablet tablet tablet dic Sports Medicin e armodafinil armodafinil No armodafini N[place] 250 mg 250 mg l 250 mg [facility] tablet tablet tablet dic Sports Medicin e armodafinil armodafinil No armodafini N[place] 50 mg 50 mg l 50 mg [facility] tablet tablet tablet dic Sports Medicin e aspirin 81 aspirin 81 No aspirin 81 [place] mg chewable mg chewable mg [facility] tablet tablet chewable dic tablet Sports Medicin e aspirin 81 aspirin 81 No aspirin 81 [place] mg mg mg [facility] tablet,tommie tablet,tommie tablet,del dic yed release yed release ayed S ports TAKE 1 TAKE 1 release Medicin TABLET BY TABLET BY TAKE 1 e MOUTH TWICE MOUTH TWICE TABLET BY A DAY A DAY MOUTH TWICE A DAY budesonide budesonide No budesonide [facility] 0.5 mg/2 mL 0.5 mg/2 mL 0.5 mg/2 [facility] suspension suspension mL dic for for suspension Sports nebulizatio nebulizatio for M edicin n n nebulizati e on bupropion bupropion No bupropion [place] HCl XL 150 HCl XL 150 HCl XL 150 [facility] mg 24 hr mg 24 hr mg 24 hr dic tablet, tablet, tablet, Sports extended extended extended Med icin release release release e TAKE 1 TAKE 1 TAKE 1 TABLET BY TABLET BY TABLET BY MOUTH EVERY MOUTH EVERY MOUTH MORNING MORNING EVERY MORNING ciprofloxac ciprofloxac No ciprofloxa [facility] in 500 mg in 500 mg jimmy 500 mg [facility] tablet tablet tablet dic Sports Medicin e clonazepam clonazepam No clonazepam [place] 1 mg tablet 1 mg tablet 1 mg [facility] TAKE 1 TAKE 1 tablet dic TABLET BY TABLET BY TAKE 1 Spo rts MOUTH TWICE MOUTH TWICE TABLET BY Medicin DAILY DAILY MOUTH e TWICE DAILY clotrimazol clotrimazol No clotrimazo N[place] e-betametha e-betametha le-betamet [facility] sone 1 sone 1 hasone 1 dic %-0.05 % %-0.05 % %-0.05 % Spo rts topical topical topical Medici n cream APPLY cream APPLY cream e TO AFFECTED TO AFFECTED APPLY TO AREA OF AREA OF AFFECTED SKIN TWO SKIN TWO AREA OF TIMES A DAY TIMES A DAY SKIN TWO TIMES A DAY Crestor 5 Crestor 5 No Crestor 5 [facility] mg tablet mg tablet mg tablet [facility] TAKE 1 TAKE 1 TAKE 1 dic TABLET BY TABLET BY TABLET BY Sports MOUTH DAILY MOUTH DAILY MOUTH Medicin DAILY e dexmethylph dexmethylph No dexmethylp [place] enidate ER enidate ER henidate [facility] 40 mg 40 mg ER 40 mg dic capsule,ext capsule,ext capsule,ex Sports ended ended tended Medicin release release release e [id number] 50 TAKE 1 50 TAKE 1 -50 TAKE 1 CAPSULE (40 CAPSULE (40 CAPSULE MG) BY MG) BY (40 MG) BY MOUTH DAILY MOUTH DAILY MOUTH IN THE IN THE DAILY IN MORNING MORNING THE MORNING dextroamphe dextroamphe No dextroamph [facility] tamine-amph tamine-amph etamine-am [facility] etamine 10 etamine 10 phetamine dic mg tablet mg tablet 10 mg Spor ts tablet Medicin e dextroamphe dextroamphe No dextroamph [facility] tamine-amph tamine-amph etamine-am [facility] etamine 15 etamine 15 phetamine dic mg tablet mg tablet 15 mg Spor ts tablet Medicin e duloxetine duloxetine No duloxetine [facility] 60 mg 60 mg 60 mg [facility] capsule,del capsule,del capsule,de dic ayed ayed layed Sports release release release Medici n e famotidine famotidine No famotidine [facility] 40 mg 40 mg 40 mg [facility] tablet tablet tablet dic Sports Medicin e ferrous ferrous No ferrous [place] fumarate fumarate fumarate [facility] 324 mg (106 324 mg (106 324 mg dic mg iron) mg iron) (106 mg Spor ts tablet TAKE tablet TAKE iron) Medicin 1 TABLET BY 1 TABLET BY tablet e MOUTH DAILY MOUTH DAILY TAKE 1 TABLET BY MOUTH DAILY fluconazole fluconazole No fluconazol [facility] 150 mg 150 mg e 150 mg [facility] tablet TAKE tablet TAKE tablet dic 1 TABLET BY 1 TABLET BY TAKE 1 Sports MOUTH ONCE MOUTH ONCE TABLET BY Medicin A WEEK A WEEK MOUTH ONCE e A WEEK fluconazole fluconazole No fluconazol [facility] 200 mg 200 mg e 200 mg [facility] tablet TAKE tablet TAKE tablet dic 1 TABLET BY 1 TABLET BY TAKE 1 Sports MOUTH EVERY MOUTH EVERY TABLET BY Medicin DAY DAY MOUTH e EVERY DAY folic acid folic acid No folic acid [facility] 1 mg tablet 1 mg tablet 1 mg [facility] TAKE 2 TAKE 2 tablet dic TABLETS BY TABLETS BY TAKE 2 S ports MOUTH EVERY MOUTH EVERY TABLETS BY Medicin DAY DAY MOUTH e EVERY DAY furosemide furosemide No furosemide [facility] 40 mg 40 mg 40 mg [facility] tablet TAKE tablet TAKE tablet dic 1 TABLET BY 1 TABLET BY TAKE 1 Sports MOUTH TWICE MOUTH TWICE TABLET BY Medicin DAILY DAILY MOUTH e TWICE DAILY gabapentin gabapentin No gabapentin N[facility] 100 mg 100 mg 100 mg [facility] capsule capsule capsule dic Sports Medicin e glycopyrrol glycopyrrol No glycopyrro [facility] ate 1 mg ate 1 mg late 1 mg Or [facility]ope tablet tablet tablet dic Sports Medicin e hydrocodone hydrocodone No hydrocodon [facility] 10 10 e 10 [facility] mg-acetamin mg-acetamin mg-acetami dic ophen 325 ophen 325 nophen 325 Sports mg tablet mg tablet mg tablet Medicin Take 1 Take 1 Take 1 e tablet tablet tablet every 6 every 6 every 6 hours by hours by hours by oral route oral route oral route as needed. as needed. as needed. hydrocodone hydrocodone No hydrocodon [facility] 7.5 7.5 e 7.5 [facility] mg-acetamin mg-acetamin mg-acetami dic ophen 325 ophen 325 nophen 325 Sports mg tablet mg tablet mg tablet Medicin TAKE 1 TAKE 1 TAKE 1 e TABLET BY TABLET BY TABLET BY MOUTH EVERY MOUTH EVERY MOUTH 4 TO 6 4 TO 6 EVERY 4 TO HOURS HOURS 6 HOURS NEEDED FOR NEEDED FOR NEEDED FOR PAIN PAIN PAIN hydrocortis hydrocortis No hydrocorti [facility] one 2.5 % one 2.5 % sone 2.5 % [facility] topical topical topical dic cream with cream with cream with Sports perineal perineal perineal Med icin applicator applicator applicator e APPLY TO APPLY TO APPLY TO AFFECTED AFFECTED AFFECTED AREA(S) AREA(S) AREA(S) TWICE DAILY TWICE DAILY TWICE DAILY hydroxychlo hydroxychlo No hydroxychl [facility] roquine 200 roquine 200 oroquine [facility] mg tablet mg tablet 200 mg dic TAKE 1 TAKE 1 tablet Sports TABLET BY TABLET BY TAKE 1 Med icin ORAL ROUTE ORAL ROUTE TABLET BY e 2 TIMES 2 TIMES ORAL ROUTE EVERY DAY EVERY DAY 2 TIMES FOR RIGHT FOR RIGHT EVERY DAY ARM ARM FOR RIGHT ARM ID NOW ID NOW No ID NOW [facility] COVID-19 COVID-19 COVID-19 [facility] Test Kit Test Kit Test Kit dic TEST TEST TEST Sports DIRECTED DIRECTED DIRECTED Med icin TODAY TODAY TODAY e ipratropium ipratropium No ipratropiu [facility] bromide bromide m bromide [facility] 0.02 % 0.02 % 0.02 % dic solution solution solution Spo rts for for for Medicin inhalation inhalation inhalation e leucovorin leucovorin No leucovorin N[facility] calcium 5 calcium 5 calcium 5 [facility] mg tablet mg tablet mg tablet dic Sports Medicin e levofloxaci levofloxaci No levofloxac [facility] n 500 mg n 500 mg in 500 mg Or thope tablet tablet tablet dic Sports Medicin e levothyroxi levothyroxi No levothyrox N[facility] ne 25 mcg ne 25 mcg ine 25 mcg [facility] tablet RX tablet RX tablet RX dic by other MD by other MD by other Sports MD Medicin e losartan 50 losartan 50 No losartan [facility] mg tablet mg tablet 50 mg [facility] tablet dic Sports Medicin e meloxicam meloxicam No meloxicam N[facility] 15 mg 15 mg 15 mg [facility] tablet TAKE tablet TAKE tablet dic 1 TABLET BY 1 TABLET BY TAKE 1 Sports MOUTH ONCE MOUTH ONCE TABLET BY Medicin A DAY FOR A DAY FOR MOUTH ONCE e INFLAMMATIO INFLAMMATIO A DAY FOR N N INFLAMMATI ON methocarbam methocarbam No methocarba [facility] ol 500 mg ol 500 mg mol 500 mg [facility] tablet TAKE tablet TAKE tablet dic 1 TABLET BY 1 TABLET BY TAKE 1 Sports MOUTH EVERY MOUTH EVERY TABLET BY Medicin 6-8 HOURS 6-8 HOURS MOUTH e NEEDED NEEDED EVERY 6-8 MUSCLE MUSCLE HOURS SPASMS SPASMS NEEDED MUSCLE SPASMS methotrexat methotrexat No methotrexa [facility] e sodium e sodium te sodium Or [facility]ope 2.5 mg 2.5 mg 2.5 mg dic tablet tablet tablet Sports Medicin e metolazone metolazone No metolazone [facility] 2.5 mg 2.5 mg 2.5 mg [facility] tablet TAKE tablet TAKE tablet dic 1 TABLET BY 1 TABLET BY TAKE 1 Sports MOUTH ONCE MOUTH ONCE TABLET BY Medicin A WEEK A WEEK MOUTH ONCE e (TAKE 30 (TAKE 30 A WEEK MINUTES MINUTES (TAKE 30 BEORE BEORE MINUTES FUROSEMIDE) FUROSEMIDE) BEORE FUROSEMIDE ) metolazone metolazone No metolazone [place] 5 mg tablet 5 mg tablet 5 mg [facility] tablet dic Sports Medicin e metronidazo metronidazo No metronidaz [facility] le 1 % le 1 % ole 1 % [facility] topical gel topical gel topical dic gel Sports Medicin e montelukast montelukast No montelukas [facility] 10 mg 10 mg t 10 mg [facility] tablet TAKE tablet TAKE tablet dic 1 TABLET BY 1 TABLET BY TAKE 1 Sports MOUTH EVERY MOUTH EVERY TABLET BY Medicin DAY DAY MOUTH e EVERY DAY nebivolol nebivolol No nebivolol N[facility] 10 mg 10 mg 10 mg [facility] tablet tablet tablet dic Sports Medicin e nitrofurant nitrofurant No nitrofuran [facility] oin oin toin [facility] monohydrate monohydrate monohydrat dic /macrocryst /macrocryst e/macrocry Sports als 100 mg als 100 mg stals 100 Medicin capsule capsule mg capsule e TAKE ONE TAKE ONE TAKE ONE (1) (1) (1) CAPSULE(S) CAPSULE(S) CAPSULE(S) BY MOUTH BY MOUTH BY MOUTH EVERY EVERY EVERY TWELVE TWELVE TWELVE HOURS FOR HOURS FOR HOURS FOR SEVEN DAYS. SEVEN DAYS. SEVEN DAYS. nystatin nystatin No nystatin Aza yeni 100,000 100,000 100,000 [facility] e unit/gram unit/gram unit/gram dic topical topical topical Sports cream cream cream Medicin e ondansetron ondansetron No ondansetro [facility] 4 mg 4 mg n 4 mg [facility] disintegrat disintegrat disintegra dic ing tablet ing tablet ting Spo rts tablet Medicin e pantoprazol pantoprazol No pantoprazo [facility] e 40 mg e 40 mg le 40 mg [facility] pe tablet,tommie tablet,tommie tablet,del dic yed release yed release ayed S ports release Medicin e potassium potassium No potassium [place] chloride ER chloride ER chloride [facility] 8 mEq 8 mEq ER 8 mEq dic tablet,exte tablet,exte tablet,ext Sports nded nded ended Medicin release release release e TAKE 1 TAKE 1 TAKE 1 TABLET BY TABLET BY TABLET BY MOUTH TWICE MOUTH TWICE MOUTH DAILY DAILY TWICE DAILY prazosin 1 prazosin 1 No prazosin 1 [facility] mg capsule mg capsule mg capsule [facility] TAKE 3 TAKE 3 TAKE 3 dic CAPSULES BY CAPSULES BY CAPSULES Sports MOUTH AT MOUTH AT BY MOUTH Med icin BEDTIME. BEDTIME. AT e BEDTIME. prednisone prednisone No prednisone [facility] 10 mg 10 mg 10 mg [facility] tablet tablet tablet dic Sports Medicin e Rasuvo (PF) Rasuvo (PF) No Rasuvo [facility] 15 mg/0.3 15 mg/0.3 (PF) 15 Or [facility] mL mL mg/0.3 mL dic subcutaneou subcutaneou subcutaneo Sports s s us Medicin auto-inject auto-inject auto-injec e or or tor Serevent Serevent No Serevent Aza yeni Diskus 50 Diskus 50 Diskus 50 [facility] mcg/dose mcg/dose mcg/dose dic powder for powder for powder for Sports inhalation inhalation inhalation Medicin e sucralfate sucralfate No sucralfate [facility] 1 gram 1 gram 1 gram [facility] tablet tablet tablet dic Sports Medicin e sulfamethox sulfamethox No sulfametho [facility] azole 800 azole 800 xazole 800 [facility] mg-trimetho mg-trimetho mg-trimeth dic prim 160 mg prim 160 mg oprim 160 Sports tablet TAKE tablet TAKE mg tablet Medicin 1 TABLET BY 1 TABLET BY TAKE 1 e MOUTH EVERY MOUTH EVERY TABLET BY 12 HOURS 12 HOURS MOUTH FOR 7 DAYS FOR 7 DAYS EVERY 12 HOURS FOR 7 DAYS tizanidine tizanidine No tizanidine [facility] 4 mg tablet 4 mg tablet 4 mg [facility] TAKE 1 TAKE 1 tablet dic TABLET BY TABLET BY TAKE 1 Spo rts MOUTH TWICE MOUTH TWICE TABLET BY Medicin A DAY A DAY MOUTH e NEEDED NEEDED TWICE A DAY NEEDED tramadol 50 tramadol 50 No tramadol [facility] mg tablet mg tablet 50 mg [facility] TAKE 1 TAKE 1 tablet dic TABLET BY TABLET BY TAKE 1 Spo rts MOUTH EVERY MOUTH EVERY TABLET BY Medicin SIX HOURS SIX HOURS MOUTH e NEEDED NEEDED EVERY SIX FOR PAIN FOR PAIN HOURS NEEDED FOR PAIN triamcinolo triamcinolo No triamcinol [facility] ne ne one [facility] acetonide acetonide acetonide dic 0.1 % 0.1 % 0.1 % Sports topical topical topical Medici n cream cream cream e valacyclovi valacyclovi No valacyclov [facility] r 500 mg r 500 mg ir 500 mg [facility] tablet TAKE tablet TAKE tablet dic 1 TABLET BY 1 TABLET BY TAKE 1 Sports MOUTH DAILY MOUTH DAILY TABLET BY Medicin MOUTH e DAILY voriconazol voriconazol No voriconazo N[facility] e 200 mg e 200 mg le 200 mg [facility] tablet tablet tablet dic Sports Medicin e Xarelto 10 Xarelto 10 No Xarelto 10 [facility] mg tablet mg tablet mg tablet [facility] dic Sports Medicin e Xyrem 500 Xyrem 500 No Xyrem 500 [facility] mg/mL oral mg/mL oral mg/mL oral [facility] solution RX solution RX solution dic by other MD by other MD RX by Sports other MD Medicin e zolpidem 10 zolpidem 10 No zolpidem [facility] mg tablet mg tablet 10 mg [facility] TAKE 1 TAKE 1 tablet dic TABLET BY TABLET BY TAKE 1 Spo rts MOUTH AT MOUTH AT TABLET BY Wa dicin BEDTIME BEDTIME MOUTH AT e BEDTIME aripiprazol aripiprazol No aripiprazo [facility] e 15 mg e 15 mg le 15 mg [facility] pe tablet TAKE tablet TAKE tablet dic 1 TABLET BY 1 TABLET BY TAKE 1 Sports MOUTH EVERY MOUTH EVERY TABLET BY Medicin DAY DAY MOUTH e EVERY DAY armodafinil armodafinil No armodafini [place] 200 mg 200 mg l 200 mg [facility] tablet tablet tablet dic Sports Medicin e armodafinil armodafinil No armodafini N[place] 250 mg 250 mg l 250 mg [facility] tablet tablet tablet dic Sports Medicin e armodafinil armodafinil No armodafini N[place] 50 mg 50 mg l 50 mg [facility] tablet tablet tablet dic [facility] Medicin e aspirin 81 aspirin 81 No aspirin 81 [place] mg chewable mg chewable mg [facility] tablet tablet chewable dic tablet Sports Medicin e aspirin 81 aspirin 81 No aspirin 81 [place] mg mg mg [facility] tablet,tommie tablet,tommie tablet,del dic yed release yed release ayed S ports TAKE 1 TAKE 1 release Medicin TABLET BY TABLET BY TAKE 1 e MOUTH TWICE MOUTH TWICE TABLET BY A DAY A DAY MOUTH TWICE A DAY budesonide budesonide No budesonide [facility] 0.5 mg/2 mL 0.5 mg/2 mL 0.5 mg/2 [facility] suspension suspension mL dic for for suspension Sports nebulizatio nebulizatio for M edicin n n nebulizati e on bupropion bupropion No bupropion [facility] HCl XL 150 HCl XL 150 HCl XL 150 [facility] mg 24 hr mg 24 hr mg 24 hr dic tablet, tablet, tablet, Sports extended extended extended Med icin release release release e TAKE 1 TAKE 1 TAKE 1 TABLET BY TABLET BY TABLET BY MOUTH EVERY MOUTH EVERY MOUTH MORNING MORNING EVERY MORNING ciprofloxac ciprofloxac No ciprofloxa [facility] in 500 mg in 500 mg jimmy 500 mg [facility] tablet tablet tablet dic Sports Medicin e clonazepam clonazepam No clonazepam [facility] 1 mg tablet 1 mg tablet 1 mg [facility] TAKE 1 TAKE 1 tablet dic TABLET BY TABLET BY TAKE 1 Spo rts MOUTH TWICE MOUTH TWICE TABLET BY Medicin DAILY DAILY MOUTH e TWICE DAILY clotrimazol clotrimazol No clotrimazo [facility] e-betametha e-betametha le-betamet [facility] sone 1 sone 1 hasone 1 dic %-0.05 % %-0.05 % %-0.05 % Spo rts topical topical topical Medici n cream APPLY cream APPLY cream e TO AFFECTED TO AFFECTED APPLY TO AREA OF AREA OF AFFECTED SKIN TWO SKIN TWO AREA OF TIMES A DAY TIMES A DAY SKIN TWO TIMES A DAY Crestor 5 Crestor 5 No Crestor 5 [facility] mg tablet mg tablet mg tablet [facility] TAKE 1 TAKE 1 TAKE 1 dic TABLET BY TABLET BY TABLET BY Sports MOUTH DAILY MOUTH DAILY MOUTH Medicin DAILY e dexmethylph dexmethylph No dexmethylp [place] enidate ER enidate ER henidate [facility] 40 mg 40 mg ER 40 mg dic capsule,ext capsule,ext capsule,ex Sports ended ended tended Medicin release release release e [id number] 50 TAKE 1 50 TAKE 1 -50 TAKE 1 CAPSULE (40 CAPSULE (40 CAPSULE MG) BY MG) BY (40 MG) BY MOUTH DAILY MOUTH DAILY MOUTH IN THE IN THE DAILY IN MORNING MORNING THE MORNING dextroamphe dextroamphe No dextroamph [facility] tamine-amph tamine-amph etamine-am [facility] etamine 10 etamine 10 phetamine dic mg tablet mg tablet 10 mg Spor ts tablet Medicin e dextroamphe dextroamphe No dextroamph [facility] tamine-amph tamine-amph etamine-am [facility] etamine 15 etamine 15 phetamine dic mg tablet mg tablet 15 mg Spor ts tablet Medicin e duloxetine duloxetine No duloxetine [facility] 60 mg 60 mg 60 mg [facility] capsule,del capsule,del capsule,de dic ayed ayed layed Sports release release release Medici n e famotidine famotidine No famotidine [facility] 40 mg 40 mg 40 mg [facility] tablet tablet tablet dic Sports Medicin e ferrous ferrous No ferrous [place] fumarate fumarate fumarate [facility] 324 mg (106 324 mg (106 324 mg dic mg iron) mg iron) (106 mg Spor ts tablet TAKE tablet TAKE iron) Medicin 1 TABLET BY 1 TABLET BY tablet e MOUTH DAILY MOUTH DAILY TAKE 1 TABLET BY MOUTH DAILY fluconazole fluconazole No fluconazol [facility] 150 mg 150 mg e 150 mg [facility] tablet TAKE tablet TAKE tablet dic 1 TABLET BY 1 TABLET BY TAKE 1 Sports MOUTH ONCE MOUTH ONCE TABLET BY Medicin A WEEK A WEEK MOUTH ONCE e A WEEK fluconazole fluconazole No fluconazol [facility] 200 mg 200 mg e 200 mg [facility] tablet TAKE tablet TAKE tablet dic 1 TABLET BY 1 TABLET BY TAKE 1 Sports MOUTH EVERY MOUTH EVERY TABLET BY Medicin DAY DAY MOUTH e EVERY DAY folic acid folic acid No folic acid [facility] 1 mg tablet 1 mg tablet 1 mg [facility] TAKE 2 TAKE 2 tablet dic TABLETS BY TABLETS BY TAKE 2 S ports MOUTH EVERY MOUTH EVERY TABLETS BY Medicin DAY DAY MOUTH e EVERY DAY furosemide furosemide No furosemide [facility] 40 mg 40 mg 40 mg [facility] tablet TAKE tablet TAKE tablet dic 1 TABLET BY 1 TABLET BY TAKE 1 Sports MOUTH TWICE MOUTH TWICE TABLET BY Medicin DAILY DAILY MOUTH e TWICE DAILY gabapentin gabapentin No gabapentin N[facility] 100 mg 100 mg 100 mg [facility] capsule capsule capsule dic Sports Medicin e glycopyrrol glycopyrrol No glycopyrro [facility] ate 1 mg ate 1 mg late 1 mg [facility] tablet tablet tablet dic Sports Medicin e hydrocodone hydrocodone No hydrocodon [facility] 10 10 e 10 [facility] mg-acetamin mg-acetamin mg-acetami dic ophen 325 ophen 325 nophen 325 Sports mg tablet mg tablet mg tablet Medicin Take 1 Take 1 Take 1 e tablet tablet tablet every 6 every 6 every 6 hours by hours by hours by oral route oral route oral route as needed. as needed. as needed. hydrocodone hydrocodone No hydrocodon [facility] 5 5 e 5 [facility] mg-acetamin mg-acetamin mg-acetami dic ophen 325 ophen 325 nophen 325 Sports mg tablet mg tablet mg tablet Medicin Take 1 Take 1 Take 1 e tablet tablet tablet every 6 every 6 every 6 hours by hours by hours by oral route. oral route. oral route. hydrocodone hydrocodone No hydrocodon [facility] 7.5 7.5 e 7.5 [facility] mg-acetamin mg-acetamin mg-acetami dic ophen 325 ophen 325 nophen 325 Sports mg tablet mg tablet mg tablet Medicin TAKE 1 TAKE 1 TAKE 1 e TABLET BY TABLET BY TABLET BY MOUTH EVERY MOUTH EVERY MOUTH 4 TO 6 4 TO 6 EVERY 4 TO HOURS HOURS 6 HOURS NEEDED FOR NEEDED FOR NEEDED FOR PAIN PAIN PAIN hydrocortis hydrocortis No hydrocorti [facility] one 2.5 % one 2.5 % sone 2.5 % [facility] topical topical topical dic cream with cream with cream with Sports perineal perineal perineal Med icin applicator applicator applicator e APPLY TO APPLY TO APPLY TO AFFECTED AFFECTED AFFECTED AREA(S) AREA(S) AREA(S) TWICE DAILY TWICE DAILY TWICE DAILY hydroxychlo hydroxychlo No hydroxychl [facility] roquine 200 roquine 200 oroquine [facility] mg tablet mg tablet 200 mg dic TAKE 1 TAKE 1 tablet Sports TABLET BY TABLET BY TAKE 1 Med icin ORAL ROUTE ORAL ROUTE TABLET BY e 2 TIMES 2 TIMES ORAL ROUTE EVERY DAY EVERY DAY 2 TIMES FOR RIGHT FOR RIGHT EVERY DAY ARM ARM FOR RIGHT ARM ID NOW ID NOW No ID NOW [facility] COVID-19 COVID-19 COVID-19 [facility] Test Kit Test Kit Test Kit dic TEST TEST TEST Sports DIRECTED DIRECTED DIRECTED Med icin TODAY TODAY TODAY e ipratropium ipratropium No ipratropiu [facility] bromide bromide m bromide [facility] 0.02 % 0.02 % 0.02 % dic solution solution solution Spo rts for for for Medicin inhalation inhalation inhalation e leucovorin leucovorin No leucovorin N[facility] calcium 5 calcium 5 calcium 5 [facility] mg tablet mg tablet mg tablet dic Sports Medicin e levofloxaci levofloxaci No levofloxac [facility] n 500 mg n 500 mg in 500 mg [facility] tablet tablet tablet dic Sports Medicin e levothyroxi levothyroxi No levothyrox N[facility] ne 25 mcg ne 25 mcg ine 25 mcg [facility] tablet RX tablet RX tablet RX dic by other MD by other MD by other Sports MD Medicin e losartan 50 losartan 50 No losartan [facility] mg tablet mg tablet 50 mg [facility] tablet dic Sports Medicin e meclizine meclizine No meclizine N[facility] 25 mg 25 mg 25 mg [facility] tablet tablet tablet dic Sports Medicin e meloxicam meloxicam No meloxicam [facility] 15 mg 15 mg 15 mg [facility] tablet TAKE tablet TAKE tablet dic 1 TABLET BY 1 TABLET BY TAKE 1 Sports MOUTH ONCE MOUTH ONCE TABLET BY Medicin A DAY FOR A DAY FOR MOUTH ONCE e INFLAMMATIO INFLAMMATIO A DAY FOR N N INFLAMMATI ON methocarbam methocarbam No methocarba [facility] ol 500 mg ol 500 mg mol 500 mg [facility] tablet TAKE tablet TAKE tablet dic 1 TABLET BY 1 TABLET BY TAKE 1 Sports MOUTH EVERY MOUTH EVERY TABLET BY Medicin 6-8 HOURS 6-8 HOURS MOUTH e NEEDED NEEDED EVERY 6-8 MUSCLE MUSCLE HOURS SPASMS SPASMS NEEDED MUSCLE SPASMS methocarbam methocarbam No methocarba N[facility]ie ol 750 mg ol 750 mg mol 750 mg [facility] tablet Take tablet Take tablet dic 1 tablet 3 1 tablet 3 Take 1 S ports times a day times a day tablet 3 Medicin by oral by oral times a e route. route. day by oral route. methotrexat methotrexat No methotrexa [facility] e sodium e sodium te sodium [facility] 2.5 mg 2.5 mg 2.5 mg dic tablet tablet tablet Sports Medicin e metolazone metolazone No metolazone [facility] 2.5 mg 2.5 mg 2.5 mg [facility] tablet TAKE tablet TAKE tablet dic 1 TABLET BY 1 TABLET BY TAKE 1 Sports MOUTH ONCE MOUTH ONCE TABLET BY Medicin A WEEK A WEEK MOUTH ONCE e (TAKE 30 (TAKE 30 A WEEK MINUTES MINUTES (TAKE 30 BEORE BEORE MINUTES FUROSEMIDE) FUROSEMIDE) BEORE FUROSEMIDE ) metolazone metolazone No metolazone [facility] 5 mg tablet 5 mg tablet 5 mg [facility] tablet dic Sports Medicin e metronidazo metronidazo No metronidaz [facility] le 1 % le 1 % ole 1 % [facility] topical gel topical gel topical dic gel Sports Medicin e montelukast montelukast No montelukas [facility] 10 mg 10 mg t 10 mg [facility] tablet TAKE tablet TAKE tablet dic 1 TABLET BY 1 TABLET BY TAKE 1 Sports MOUTH EVERY MOUTH EVERY TABLET BY Medicin DAY DAY MOUTH e EVERY DAY nebivolol nebivolol No nebivolol N[facility] 10 mg 10 mg 10 mg [facility] tablet tablet tablet dic Sports Medicin e nitrofurant nitrofurant No nitrofuran [facility] oin oin toin [facility] monohydrate monohydrate monohydrat dic /macrocryst /macrocryst e/macrocry Sports als 100 mg als 100 mg stals 100 Medicin capsule capsule mg capsule e TAKE ONE TAKE ONE TAKE ONE (1) (1) (1) CAPSULE(S) CAPSULE(S) CAPSULE(S) BY MOUTH BY MOUTH BY MOUTH EVERY EVERY EVERY TWELVE TWELVE TWELVE HOURS FOR HOURS FOR HOURS FOR SEVEN DAYS. SEVEN DAYS. SEVEN DAYS. nystatin nystatin No nystatin Aza yeni 100,000 100,000 100,000 [facility] e unit/gram unit/gram unit/gram dic topical topical topical Sports cream cream cream Medicin e ondansetron ondansetron No ondansetro [facility] 4 mg 4 mg n 4 mg [facility] disintegrat disintegrat disintegra dic ing tablet ing tablet ting Spo rts tablet Medicin e pantoprazol pantoprazol No pantoprazo [facility] e 40 mg e 40 mg le 40 mg [facility] pe tablet,tommie tablet,tommie tablet,del dic yed release yed release ayed S ports release Medicin e potassium potassium No potassium [place] chloride ER chloride ER chloride [facility] 8 mEq 8 mEq ER 8 mEq dic tablet,exte tablet,exte tablet,ext Sports nded nded ended Medicin release release release e TAKE 1 TAKE 1 TAKE 1 TABLET BY TABLET BY TABLET BY MOUTH TWICE MOUTH TWICE MOUTH DAILY DAILY TWICE DAILY prazosin 1 prazosin 1 No prazosin 1 [facility] mg capsule mg capsule mg capsule [facility] TAKE 3 TAKE 3 TAKE 3 dic CAPSULES BY CAPSULES BY CAPSULES Sports MOUTH AT MOUTH AT BY MOUTH Med icin BEDTIME. BEDTIME. AT e BEDTIME. prednisone prednisone No prednisone [facility] 10 mg 10 mg 10 mg [facility] tablet tablet tablet dic Sports Medicin e Rasuvo (PF) Rasuvo (PF) No Rasuvo [facility] 15 mg/0.3 15 mg/0.3 (PF) 15 [facility] mL mL mg/0.3 mL dic subcutaneou subcutaneou subcutaneo Sports s s Medicin auto-inject auto-inject auto-injec e or or tor Serevent Serevent No Serevent Aza yeni Diskus 50 Diskus 50 Diskus 50 [facility] mcg/dose mcg/dose mcg/dose dic powder for powder for powder for Sports inhalation inhalation inhalation Medicin e sucralfate sucralfate No sucralfate [facility]ie 1 gram 1 gram 1 gram [facility] tablet tablet tablet dic Sports Medicin e sulfamethox sulfamethox No sulfametho [facility] azole 800 azole 800 xazole 800 [facility] mg-trimetho mg-trimetho mg-trimeth dic prim 160 mg prim 160 mg oprim 160 Sports tablet TAKE tablet TAKE mg tablet Medicin 1 TABLET BY 1 TABLET BY TAKE 1 e MOUTH EVERY MOUTH EVERY TABLET BY 12 HOURS 12 HOURS MOUTH FOR 7 DAYS FOR 7 DAYS EVERY 12 HOURS FOR 7 DAYS tizanidine tizanidine No tizanidine [facility] 4 mg tablet 4 mg tablet 4 mg [facility] TAKE 1 TAKE 1 tablet dic TABLET BY TABLET BY TAKE 1 Spo rts MOUTH TWICE MOUTH TWICE TABLET BY Medicin A DAY A DAY MOUTH e NEEDED NEEDED TWICE A DAY NEEDED tramadol 50 tramadol 50 No tramadol [facility] mg tablet mg tablet 50 mg [facility] TAKE 1 TAKE 1 tablet dic TABLET BY TABLET BY TAKE 1 Spo rts MOUTH EVERY MOUTH EVERY TABLET BY Medicin SIX HOURS SIX HOURS MOUTH e NEEDED NEEDED EVERY SIX FOR PAIN FOR PAIN HOURS NEEDED FOR PAIN triamcinolo triamcinolo No triamcinol [facility] ne ne one [facility] acetonide acetonide acetonide dic 0.1 % 0.1 % 0.1 % Sports topical topical topical Medici n cream cream cream e valacyclovi valacyclovi No valacyclov [facility] r 500 mg r 500 mg ir 500 mg Or [facility] tablet TAKE tablet TAKE tablet dic 1 TABLET BY 1 TABLET BY TAKE 1 Sports MOUTH DAILY MOUTH DAILY TABLET BY Medicin MOUTH e DAILY voriconazol voriconazol No voriconazo Nath[facility]ie e 200 mg e 200 mg le 200 mg [facility] tablet tablet tablet dic Sports Medicin e Xarelto 10 Xarelto 10 No Xarelto 10 [facility] mg tablet mg tablet mg tablet [facility] dic Sports Medicin e Xyrem 500 Xyrem 500 No Xyrem 500 [facility] mg/mL oral mg/mL oral mg/mL oral [facility] solution RX solution RX solution dic by other MD by other MD RX by Sports other MD Medicin e zolpidem 10 zolpidem 10 No zolpidem [facility] mg tablet mg tablet 10 mg [facility] TAKE 1 TAKE 1 tablet dic TABLET BY TABLET BY TAKE 1 Spo rts MOUTH AT MOUTH AT TABLET BY Me dicin BEDTIME BEDTIME MOUTH AT e BEDTIME amlodipine amlodipine No amlodipine Nathalie 5 mg tablet 5 mg tablet 5 mg O rthope tablet dic Sports Medicin e aripiprazol aripiprazol No aripiprazo Nathalie e 10 mg e 10 mg le 10 mg Ortho pe tablet tablet tablet dic Sports Medicin e aripiprazol aripiprazol No aripiprazo Nathalie e 15 mg e 15 mg le 15 mg Ortho pe tablet TAKE tablet TAKE tablet dic 1 TABLET BY 1 TABLET BY TAKE 1 Sports MOUTH EVERY MOUTH EVERY TABLET BY Medicin DAY DAY MOUTH e EVERY DAY armodafinil armodafinil No armodafini Nathalie 200 mg 200 mg l 200 mg Orthope tablet tablet tablet dic Sports Medicin e armodafinil armodafinil No armodafini Nathalie 250 mg 250 mg l 250 mg Orth[facility] tablet tablet tablet dic Sports Medicin e armodafinil armodafinil No armodafini Nathalie 50 mg 50 mg l 50 mg [facility] tablet tablet tablet dic Sports Medicin e aspirin 81 aspirin 81 No aspirin 81 Nathalie mg chewable mg chewable mg O rthope tablet tablet chewable dic tablet Sports Medicin e aspirin 81 aspirin 81 No aspirin 81 Nathalie mg mg mg Orth[facility] tablet,tommie tablet,tommie tablet,del dic yed release yed release ayed S ports TAKE 1 TAKE 1 release Medicin TABLET BY TABLET BY TAKE 1 e MOUTH TWICE MOUTH TWICE TABLET BY A DAY A DAY MOUTH TWICE A DAY atorvastati atorvastati No atorvastat Nathalie n 20 mg n 20 mg in 20 mg Ortho pe tablet tablet tablet dic Sports Medicin e budesonide budesonide No budesonide Nathalie 0.5 mg/2 mL 0.5 mg/2 mL 0.5 mg/2 [facility] suspension suspension mL dic for for suspension Sports nebulizatio nebulizatio for M edicin n n nebulizati e on bupropion bupropion No bupropion Nathalie HCl XL 150 HCl XL 150 HCl XL 150 [facility] mg 24 hr mg 24 hr mg 24 hr dic tablet, tablet, tablet, Sports extended extended extended Med icin release release release e TAKE 1 TAKE 1 TAKE 1 TABLET BY TABLET BY TABLET BY MOUTH EVERY MOUTH EVERY MOUTH MORNING MORNING EVERY MORNING Prazosin Prazosin Yes UT HCl - 1 MG HCl - 1 MG Phy sici Oral Oral ans Capsule Capsule Montelukast Montelukast Yes U T Sodium 10 Sodium 10 Physi ci MG Oral MG Oral ans Tablet Tablet DULoxetine DULoxetine Yes UT HCl - 60 MG HCl - 60 MG P hysici Oral Oral ans Capsule Capsule Delayed Delayed Release Release Particles Particles ARIPiprazol ARIPiprazol Yes U T e 10 MG e 10 MG Physici Oral Tablet Oral Tablet a ns Disintegrat Disintegrat ing ing Wellbutrin Wellbutrin Yes UT TABS TABS Physici ans Co Q 10 Co Q 10 Yes UT CAPS CAPS Physici ans Restasis Restasis Yes UT EMUL EMUL Physici ans Crestor 5 Crestor 5 Yes UT MG Oral MG Oral Physici Tablet Tablet ans Bystolic 10 Bystolic 10 Yes U T MG Oral MG Oral Physici Tablet Tablet ans Levothyroxi Levothyroxi Yes U T ne Sodium ne Sodium Physi ci 50 MCG Oral 50 MCG Oral a ns Tablet Tablet Ambien 10 Ambien 10 Yes UT MG Oral MG Oral Physici Tablet Tablet ans Dexmethylph Dexmethylph Yes U T enidate HCl enidate HCl P hysici ER 40 MG ER 40 MG ans Oral Oral Capsule Capsule Extended Extended Release 24 Release 24 Hour Hour clonazePAM clonazePAM Yes UT 1 MG Oral 1 MG Oral Physi ci Tablet Tablet ans Hydroxychlo Hydroxychlo Yes U T roquine roquine Physici Sulfate 200 Sulfate 200 a ns MG Oral MG Oral Tablet Tablet Ondansetron Ondansetron Yes U T HCl - 4 MG HCl - 4 MG Phy sici Oral Tablet Oral Tablet a ns Urodol TABS Urodol TABS Yes U T Physici ans Xyrem SOLN Xyrem SOLN Yes UT Physici ans ciprofloxac ciprofloxac No ciprofloxa Nathalie in 500 mg in 500 mg jimmy 500 mg Orthope tablet tablet tablet dic Sports Medicin e clonazepam clonazepam No clonazepam Nathalie 1 mg tablet 1 mg tablet 1 mg O rthope TAKE 1 TAKE 1 tablet dic TABLET BY TABLET BY TAKE 1 Spo rts MOUTH TWICE MOUTH TWICE TABLET BY Medicin DAILY DAILY MOUTH e TWICE DAILY clotrimazol clotrimazol No clotrimazo Nathalie e-betametha e-betametha le-betamet Orth[facility] sone 1 sone 1 hasone 1 dic %-0.05 % %-0.05 % %-0.05 % Spo rts topical topical topical Medici n cream APPLY cream APPLY cream e TO AFFECTED TO AFFECTED APPLY TO AREA OF AREA OF AFFECTED SKIN TWO SKIN TWO AREA OF TIMES A DAY TIMES A DAY SKIN TWO TIMES A DAY Crestor 5 Crestor 5 No Crestor 5 Nathalie mg tablet mg tablet mg tablet Orthope TAKE 1 TAKE 1 TAKE 1 dic TABLET BY TABLET BY TABLET BY Sports MOUTH DAILY MOUTH DAILY MOUTH Medicin DAILY e dexmethylph dexmethylph No dexmethylp Nathalie enidate ER enidate ER henidate [facility] 40 mg 40 mg ER 40 mg dic capsule,ext capsule,ext capsule,ex Sports ended ended tended Medicin release release release e [id number] 50 TAKE 1 50 TAKE 1 -50 TAKE 1 CAPSULE (40 CAPSULE (40 CAPSULE MG) BY MG) BY (40 MG) BY MOUTH DAILY MOUTH DAILY MOUTH IN THE IN THE DAILY IN MORNING MORNING THE MORNING dextroamphe dextroamphe No dextroamph Nathalie tamine-amph tamine-amph etamine-am [facility] etamine 10 etamine 10 phetamine dic mg tablet mg tablet 10 mg Spor ts tablet Medicin e dextroamphe dextroamphe No dextroamph Nathalie tamine-amph tamine-amph etamine-am [facility] etamine 15 etamine 15 phetamine dic mg tablet mg tablet 15 mg Spor ts tablet Medicin e duloxetine duloxetine No duloxetine Nathalie 60 mg 60 mg 60 mg [facility] capsule,del capsule,del capsule,de dic ayed ayed layed Sports release release release Medici n e famotidine famotidine No famotidine Nathalie 40 mg 40 mg 40 mg [facility] tablet tablet tablet dic Sports Medicin e ferrous ferrous No ferrous Nahtalie fumarate fumarate fumarate [facility] hope 324 mg (106 324 mg (106 324 mg dic mg iron) mg iron) (106 mg Spor ts tablet TAKE tablet TAKE iron) Medicin 1 TABLET BY 1 TABLET BY tablet e MOUTH DAILY MOUTH DAILY TAKE 1 TABLET BY MOUTH DAILY Flowflex Flowflex No Flowflex Aza yeni COVID-19 COVID-19 COVID-19 Ort hope Antigen Antigen Antigen dic Home Test Home Test Home Test Sports kit kit kit Medicin e fluconazole fluconazole No fluconazol Nathalie 150 mg 150 mg e 150 mg [facility] tablet TAKE tablet TAKE tablet dic 1 TABLET BY 1 TABLET BY TAKE 1 Sports MOUTH ONCE MOUTH ONCE TABLET BY Medicin A WEEK A WEEK MOUTH ONCE e A WEEK fluconazole fluconazole No fluconazol Nathalie 200 mg 200 mg e 200 mg [facility] tablet TAKE tablet TAKE tablet dic 1 TABLET BY 1 TABLET BY TAKE 1 Sports MOUTH EVERY MOUTH EVERY TABLET BY Medicin DAY DAY MOUTH e EVERY DAY folic acid folic acid No folic acid Nathalie 1 mg tablet 1 mg tablet 1 mg O rthope TAKE 2 TAKE 2 tablet dic TABLETS BY TABLETS BY TAKE 2 S ports MOUTH EVERY MOUTH EVERY TABLETS BY Medicin DAY DAY MOUTH e EVERY DAY furosemide furosemide No furosemide Nathalie 40 mg 40 mg 40 mg [facility] tablet TAKE tablet TAKE tablet dic 1 TABLET BY 1 TABLET BY TAKE 1 Sports MOUTH TWICE MOUTH TWICE TABLET BY Medicin DAILY DAILY MOUTH e TWICE DAILY gabapentin gabapentin No gabapentin Nathalie 100 mg 100 mg 100 mg [facility] capsule capsule capsule dic Sports Medicin e glycopyrrol glycopyrrol No glycopyrro Nathalie ate 1 mg ate 1 mg late 1 mg Or thope tablet tablet tablet dic Sports Medicin e hydrocodone hydrocodone No hydrocodon Nathalie 10 10 e 10 [facility] mg-acetamin mg-acetamin mg-acetami dic ophen 325 ophen 325 nophen 325 Sports mg tablet mg tablet mg tablet Medicin Take 1 Take 1 Take 1 e tablet tablet tablet every 6 every 6 every 6 hours by hours by hours by oral route oral route oral route as needed. as needed. as needed. hydrocodone hydrocodone No hydrocodon Nathalie 5 5 e 5 [facility] mg-acetamin mg-acetamin mg-acetami dic ophen 325 ophen 325 nophen 325 Sports mg tablet mg tablet mg tablet Medicin Take 1 Take 1 Take 1 e tablet tablet tablet every 6 every 6 every 6 hours by hours by hours by oral route. oral route. oral route. hydrocodone hydrocodone No hydrocodon Nathalie 7.5 7.5 e 7.5 [facility] mg-acetamin mg-acetamin mg-acetami dic ophen 325 ophen 325 nophen 325 Sports mg tablet mg tablet mg tablet Medicin TAKE 1 TAKE 1 TAKE 1 e TABLET BY TABLET BY TABLET BY MOUTH EVERY MOUTH EVERY MOUTH 4 TO 6 4 TO 6 EVERY 4 TO HOURS HOURS 6 HOURS NEEDED FOR NEEDED FOR NEEDED FOR PAIN PAIN PAIN hydrocortis hydrocortis No hydrocorti Nathalie one 2.5 % one 2.5 % sone 2.5 % [facility] topical topical topical dic cream with cream with cream with Sports perineal perineal perineal Med icin applicator applicator applicator e APPLY TO APPLY TO APPLY TO AFFECTED AFFECTED AFFECTED AREA(S) AREA(S) AREA(S) TWICE DAILY TWICE DAILY TWICE DAILY hydroxychlo hydroxychlo No hydroxychl Nathalie roquine 200 roquine 200 oroquine [facility] mg tablet mg tablet 200 mg dic TAKE 1 TAKE 1 tablet Sports TABLET BY TABLET BY TAKE 1 Med icin ORAL ROUTE ORAL ROUTE TABLET BY e 2 TIMES 2 TIMES ORAL ROUTE EVERY DAY EVERY DAY 2 TIMES FOR RIGHT FOR RIGHT EVERY DAY ARM ARM FOR RIGHT ARM ID NOW ID NOW No ID NOW Nathalie COVID-19 COVID-19 COVID-19 [facility] Test Kit Test Kit Test Kit dic TEST TEST TEST Sports DIRECTED DIRECTED DIRECTED Med icin TODAY TODAY TODAY e ipratropium ipratropium No ipratropiu Nathalie bromide bromide m bromide Orth ope 0.02 % 0.02 % 0.02 % dic solution solution solution Spo rts for for for Medicin inhalation inhalation inhalation e leucovorin leucovorin No leucovorin Nathalie calcium 5 calcium 5 calcium 5 [facility] mg tablet mg tablet mg tablet dic Sports Medicin e levofloxaci levofloxaci No levofloxac Nathalie n 500 mg n 500 mg in 500 mg Or thope tablet tablet tablet dic Sports Medicin e levothyroxi levothyroxi No levothyrox Nathalie ne 25 mcg ne 25 mcg ine 25 mcg [facility] tablet RX tablet RX tablet RX dic by other MD by other MD by other Sports MD Medicin e losartan 50 losartan 50 No losartan Nathalie mg tablet mg tablet 50 mg Orth ope tablet dic Sports Medicin e meclizine meclizine No meclizine Nathalie 25 mg 25 mg 25 mg [facility] tablet tablet tablet dic [facility] Medicin e meloxicam meloxicam No meloxicam Nathalie 15 mg 15 mg 15 mg [facility] tablet TAKE tablet TAKE tablet dic 1 TABLET BY 1 TABLET BY TAKE 1 Sports MOUTH ONCE MOUTH ONCE TABLET BY Medicin A DAY FOR A DAY FOR MOUTH ONCE e INFLAMMATIO INFLAMMATIO A DAY FOR N N INFLAMMATI ON methocarbam methocarbam No methocarba Nathalie ol 500 mg ol 500 mg mol 500 mg [facility] tablet TAKE tablet TAKE tablet dic 1 TABLET BY 1 TABLET BY TAKE 1 Sports MOUTH EVERY MOUTH EVERY TABLET BY Medicin 6-8 HOURS 6-8 HOURS MOUTH e NEEDED NEEDED EVERY 6-8 MUSCLE MUSCLE HOURS SPASMS SPASMS NEEDED MUSCLE SPASMS methocarbam methocarbam No methocarba Nathalie ol 750 mg ol 750 mg mol 750 mg [facility] tablet Take tablet Take tablet dic 1 tablet 3 1 tablet 3 Take 1 S ports times a day times a day tablet 3 Medicin by oral by oral times a e route. route. day by oral route. methotrexat methotrexat No methotrexa Nathalie e sodium e sodium te sodium Or thope 2.5 mg 2.5 mg 2.5 mg dic tablet tablet tablet Sports Medicin e metolazone metolazone No metolazone Nathalie 2.5 mg 2.5 mg 2.5 mg [facility] tablet TAKE tablet TAKE tablet dic 1 TABLET BY 1 TABLET BY TAKE 1 Sports MOUTH ONCE MOUTH ONCE TABLET BY Medicin A WEEK A WEEK MOUTH ONCE e (TAKE 30 (TAKE 30 A WEEK MINUTES MINUTES (TAKE 30 BEORE BEORE MINUTES FUROSEMIDE) FUROSEMIDE) BEORE FUROSEMIDE ) metolazone metolazone No metolazone Nathalie 5 mg tablet 5 mg tablet 5 mg O rthope tablet dic Sports Medicin e Immunizations Ordered Immunization Filled Immunization Date Status Commen ts Source Name Name KRISTY ZAYAS 2021-11-23 Completed [facility] KRISTY HALLRebekah 2021-01-31 Completed [facility] 00:00:00 [facility] KRISTY HALLRebekah 2021-01-02 Completed [facility] 00:00:00 [facility] Flubl[place] Quadrivalent 2020-07-11 Completed [facility] 0.5 ML Intramuscular 00:00:00 Solution Prefilled Syringe Vital Signs Vital Name Observation Time Observation Value Comments Source Heart rate 2022-09-29 88 /min [facility] 19:00:00 [facility] Oxygen saturation 2022-09-29 94 /min [facility] Arterial blood 19:00:00 [facility] by Pulse oximetry Branch Systolic blood 2022-09-29 127 mm[Hg] [facility] 18:27:00 [facility] Diastolic blood 2022-09-29 65 mm[Hg] [facility] 18:27:00 [facility] Body temperature 2022-09-29 37.33 Kaylynn [facility] 18:27:00 [facility] Respiratory rate 2022-09-29 18 /min [facility] 18:27:00 [facility] Body weight 2022-09-28 95.851 kg [facility] 16:57:00 [facility] Height 2022-09-03 67 [in_i] Nathalie 00:00:00 [facility] BMI (Body Mass 2022-09-03 30.7 kg/m2 [facility] Index) 00:00:00 [facility] Body Weight 2022-09-03 196 [lb_av] Nathalie 00:00:00 [facility] Height 2022-08-27 67 [in_i] Nathalie 00:00:00 [facility] Height 2022-07-19 67 [in_i] Nathalie 00:00:00 [facility] Systolic blood 2022-09-17 127 mm[Hg] [facility] 15:07:00 [facility] Diastolic blood 2022-09-17 66 mm[Hg] [facility] 15:07:00 [facility] Heart rate 2022-09-17 74 /min [facility] 15:07:00 [facility] Body height 2022-09-17 165.1 cm [facility] 15:07:00 [facility] Body weight 2022-09-17 101.334 kg [facility] 15:07:00 [facility] BMI 2022-09-17 37.18 kg/m2 [facility] 15:07:00 [facility] Oxygen saturation 2022-09-17 100 /min [facility] Arterial blood 15:07:00 [facility] by Pulse oximetry Respiratory rate 2022-08-23 18 /min [facility] 14:58:00 [facility] Body temperature 2022-08-20 37.11 Kaylynn [facility] 03:59:20 [facility] Heart rate 2021-08-16 89 /min [facility] 18:49:00 [facility] Respiratory rate 2021-08-16 18 /min [facility] 18:49:00 [facility] Oxygen saturation 2021-08-16 93 /min [facility] Arterial blood 18:39:00 [facility] by Pulse oximetry Systolic blood 2021-08-16 132 mm[Hg] [facility] 17:02:17 [facility] Diastolic blood 2021-08-16 63 mm[Hg] [facility] 17:02:17 Hospital Body temperature 2021-08-16 36.06 Kaylynn [facility] 17:02:17 [facility] Body weight 2021-08-15 91 kg [facility] 11:00:00 [facility] BMI 2021-08-15 31.42 kg/m2 [facility] 11:00:00 [facility] Body height 2021-04-24 170.2 cm [facility] 14:01:00 [facility] Systolic blood 2021-03-13 118 mm[Hg] [facility] 13:26:00 Diastolic blood 2021-03-13 75 mm[Hg] [facility] 13:26:00 Body height 2021-03-13 67 [in_us] [facility] 13:26:00 Weight 2021-03-13 92.08 kg [facility] 13:26:00 Body mass index 2021-03-13 31.79 kg/m2 [facility] (BMI) [Ratio] 13:26:00 Body temperature 2021-03-13 97.7 [degF] [facility] 13:26:00 Heart Rate 2021-03-13 82 /min [facility] 13:26:00 Respiratory rate 2021-03-13 18 /min [facility] 13:26:00 Systolic blood 2020-09-25 127 mm[Hg] Location: LUE; [facility] 09:23:00 Position: Sitting Diastolic blood 2020-09-25 80 mm[Hg] Location: [facility]; [facility] 09:23:00 Position: Sitting Body height 2020-09-25 67 [in_us] [facility] 09:23:00 Weight 2020-09-25 218.375 [lb_av] [facility] 09:23:00 Body mass index 2020-09-25 34.2 kg/m2 [facility] (BMI) [Ratio] 09:23:00 Body temperature 2020-09-25 96.3 [degF] Method: [facility] 09:23:00 Temporal Systolic blood 2020-04-14 138 mm[Hg] Location: LUE; [facility] 08:32:00 Position: Sitting Diastolic blood 2020-04-14 77 mm[Hg] Location: LUE; [facility] 08:32:00 Position: Sitting Body height 2020-04-14 67 [in_us] [facility] 08:32:00 Weight 2020-04-14 200 [lb_av] [facility] 08:32:00 Body mass index 2020-04-14 31.32 kg/m2 [facility] (BMI) [Ratio] 08:32:00 Body temperature 2020-04-14 97.8 [degF] Method: [facility] 08:32:00 Temporal Heart Rate 2020-04-14 70 /min [facility] 08:32:00 BP Systolic 2019-08-18 136 mm[Hg] Location: L[facility]; [facility] 15:52:00 Position: Sitting BP Diastolic 2019-08-18 80 mm[Hg] Location: LUE; [facility] 15:52:00 Position: Sitting Height 2019-08-18 67 [in_us] [facility] 15:52:00 Weight 2019-08-18 216.375 [lb_av] [facility] 15:52:00 Body Mass Index 2019-08-18 33.89 kg/m2 [facility] Calculated 15:52:00 Temperature 2019-08-18 98.7 [degF] [facility] 15:52:00 BP Systolic 2019-08-09 119 mm[Hg] Location: LUE; [facility] 10:10:00 Position: Sitting BP Diastolic 2019-08-09 74 mm[Hg] Location: LUE; [facility] 10:10:00 Position: Sitting Height 2019-08-09 67 [in_us] [facility] 10:10:00 Weight 2019-08-09 214.375 [lb_av] [facility] 10:10:00 Body Mass Index 2019-08-09 33.58 kg/m2 [facility] Calculated 10:10:00 Procedures Procedure Date / Time Performing Clinician Source Performed CT THORAX WO CONTRAST 2022-09-29 14:48:32 Emmy Montoya [facility] MAGNESIUM 2022-09-29 10:40:00 Jan [facility] BASIC METABOLIC PANEL (NA, 2022-09-29 10:40:00 Emmy Montoya [facility] K, CL, CO2, GLUCOSE, BUN, Medica l Branch CREATININE, CA) CBC WITH DIFF 2022-09-29 10:40:00 Jan [facility] SPUTUM CULTURE 2022-09-29 01:22:00 Jan [facility] PNEUMOCOCCAL ANTIGEN 2022-09-29 01:22:00 Mark Montoyaoja [facility] MRSA / MSSA SCREEN BY PCR, 2022-09-29 00:12:00 Emmy Montoya [facility] BLOOD CULTURE SCREEN 2022-09-29 00:05:00 Mark Montoyaoja [facility] TROPONIN I 2022-09-29 00:04:00 Jan [facility] HEPATIC FUNCTION PANEL 2022-09-29 00:04:00 Emmy Montoya [facility] ([id number]) (ALB,T.PRO,BILI Medical Branch T,BU/BC,ALT,AST,ALK PHOS) BASIC METABOLIC PANEL (NA, 2022-09-29 00:04:00 Mark Montoyaoja [facility] K, CL, CO2, GLUCOSE, BUN, Medica l Branch CREATININE, CA) CBC WITH DIFF 2022-09-29 00:04:00 Jan [facility] PROTHROMBIN TIME / INR 2022-09-29 00:04:00 [facility] 2022-09-29 00:04:00 Jan [facility] N-TERMINAL PRO-BNP 2022-09-29 00:04:00 Jan [facility] PROCALCITONIN 2022-09-29 00:04:00 Jan [facility] HIV 1/2 AG-AB WITH REFLEX 2022-09-29 00:04:00 [facility] 2022-09-29 00:04:00 Jan [facility] XR CHEST 2 VW 2022-09-28 20:10:00 Jan [facility] GALV ONLY - INFLUENZA A B 2022-09-28 18:32:00 Emmy Montoya Un [facility] RSV PCR Medical Branch COVID-19 (MOLECULAR 2022-09-28 18:32:00 Jan Emmy [facility] TESTING [facility] NUCLEIC ACID AMPLIFICATION) LAB ONLY COVID 2022-09-28 18:32:00 Jan Emmy [facility] COMPLETE BLD COUNT 2022-09-17 15:22:00 Briseida Lopez [facility] W/AUTO DIFF FERRITIN LEVEL 2022-09-17 15:22:00 Richard Briseida Conrad [facility] SERUM ELECTROPHORESIS 2022-09-17 15:22:00 Briseida Lopez [facility] BUN LEVEL 2022-09-17 15:22:00 [facility] CREATININE LEVEL 2022-09-17 15:22:00 Briseida Lopez [facility] LDH 2022-09-17 15:22:00 [facility] ESTIMATED GFR 2022-09-17 15:22:00 Briseida Lopez [facility] ECG 12-LEAD 2022-09-04 13:26:07 Todd Travis [facility] Deon XR, femur, 2 or more view 2022-09-03 00:00:00 Kush cagle [facility], lower extremity, w/o 2022-09-03 00:00:00 Mar jaime [facility] Medicine RADEX SPI LUMBOSAC MINIMUM 2022-08-27 00:00:00 Santosh garcia [facility] 4 VIEWS Sports Medicine CV CARDIAC PET STRESS TEST 2022-08-23 16:04:36 [facility] CV CARDIAC PET MYOCARDIAL 2022-08-23 16:04:36 [facility] PERFUSION IMAGING [place] TTE COMPLETE, W CONTRAST, 2022-08-23 14:10:00 [facility] W DOPPLER ([id number]) Deon HC COMPLETE BLD COUNT 2022-08-20 06:26:00 [facility] W/AUTO DIFF [facility] METABOLIC 2022-08-20 06:26:00 [facility] PANEL Peter TROPONIN T 2022-08-20 06:26:00 [facility] Peter B NATRIURETIC PEPTIDE 2022-08-20 06:26:00 [facility] Peter ESTIMATED GFR 2022-08-20 06:26:00 [facility] Peter XR CHEST 2 VW 2022-08-20 04:24:45 [facility] Peter ECG ED PRELIMINARY 2022-08-20 04:09:[address] [facility] INTERPRETATION Peter ECG 12-LEAD 2022-08-20 04:05:32 [facility] Peter LIPID PANEL 2022-08-14 14:37:00 [facility] COMPREHENSIVE METABOLIC 2022-08-14 14:37:00 [facility] PANEL [place] THYROID STIMULATING 2022-08-14 14:37:00 [facility] HORMONE [place] T3 2022-08-14 14:37:00 [facility] T4, FREE 2022-08-14 14:37:00 [facility] NT-PROBNP 2022-08-14 14:37:00 [facility] Deon CBC WITH PLATELET AND 2022-08-14 14:37:[address] [facility] DIFFERENTIAL [place] ECG 12-LEAD 2022-08-14 13:43:21 [facility] Deon RADEX SPI LUMBOSAC MINIMUM 2022-07-19 00:00:00 Santosh garcia Orthopedic 4 VIEWS Sports Medicine [id number] 2022-07-04 00:00:00 [facility] [id number] 2022-07-04 00:00:00 [facility] [id number] 2022-07-04 00:00:00 [facility] [id number] 2022-07-04 00:00:00 [facility] [id number] 2022-07-04 00:00:00 [facility] [id number] 2022-07-04 00:00:00 [facility] XR, knee, 4 or more view 2022-06-04 00:00:00 Mar jaime [facility] RADEX SPI LUMBOSAC MINIMUM 2022-05-22 00:00:00 Santosh garcia [facility]opedic 4 VIEWS Sports Medicine MRI, lumbar spine, w/o 2022-05-22 00:00:00 Odette frost [facility] Medicine LACTIC ACID LEVEL, SEPSIS 2022-04-30 23:08:00 Baldemar Del Cid [facility] - NOW AND REPEAT 2X EVERY 3 HOURS AMMONIA LEVEL 2022-04-30 23:08:00 Baldemar Del Cid [facility] PROTHROMBIN TIME WITH INR 2022-04-30 23:08:00 Baldemar Del Cid [facility] PARTIAL THROMBOPLASTIN 2022-04-30 23:08:00 Baldemar Del Cid [facility] TIME (PTT) CBC WITH PLATELET AND 2022-04-30 21:11:00 Baldemar Del Cid [facility] DIFFERENTIAL COMPREHENSIVE METABOLIC 2022-04-30 21:11:00 Baldemar Del Cid [facility] PANEL ESTIMATED GFR 2022-04-30 21:11:00 Baldemar Del Cid [facility] MANUAL DIFFERENTIAL 2022-04-30 21:11:00 JohnathansonaevelioBaldemar Lydia [facility] CBC WITH PLATELET AND 2021-08-16 10:40:00 Adam Blake [facility] DIFFERENTIAL COMPREHENSIVE METABOLIC 2021-08-16 10:40:00 [facility]NESIUM LEVEL 2021-08-16 10:40:00 Adam Blake [facility] PHOSPHORUS LEVEL 2021-08-16 10:40:00 Adam Blake [facility] B NATRIURETIC PEPTIDE 2021-08-16 10:40:00 Mayco Langford [facility] ESTIMATED GFR 2021-08-16 10:40:00 Adam Blake [facility] MANUAL DIFFERENTIAL 2021-08-16 10:40:00 Adam Blake [facility] CBC WITH PLATELET AND 2021-08-15 11:36:00 Adam Blake [facility] DIFFERENTIAL COMPREHENSIVE METABOLIC 2021-08-15 11:36:00 Adam Blake [facility] PANEL MAGNESIUM LEVEL 2021-08-15 11:36:00 Adam Blake [facility] PHOSPHORUS LEVEL 2021-08-15 11:36:00 Adam Blake [facility] ESTIMATED GFR 2021-08-15 11:36:00 Adam Blake [facility] MANUAL DIFFERENTIAL 2021-08-15 11:36:00 Adam Blake [facility] COMPREHENSIVE METABOLIC 2021-08-14 14:58:00 Adam Blake [facility] PANEL ESTIMATED GFR 2021-08-14 14:58:00 Adam Blake [facility] CBC WITH PLATELET AND 2021-08-14 09:59:00 Mayco Langford [facility] DIFFERENTIAL B NATRIURETIC PEPTIDE 2021-08-14 09:59:00 Mayco Langford [facility] BASIC METABOLIC PANEL 2021-08-14 09:59:00 Mayco Langford [facility] ESTIMATED GFR 2021-08-14 09:59:00 OMayco Schroeder [facility] MANUAL DIFFERENTIAL 2021-08-14 09:59:[address] [facility] XR CHEST 1 VW PORTABLE 2021-08-13 19:39:00 [facility] R POC GLUCOSE 2021-08-13 19:08:00 OMayco Schroeder Conrad [facility] ARTERIAL BLOOD GAS 2021-08-13 18:38:00 [facility] R HEMOGLOBIN & HEMATOCRIT 2021-08-13 18:38:00 Jeremy Bills [facility] Maximino POC GLUCOSE 2021-08-13 18:08:00 [facility] FEMUR 2 VW RIGHT 2021-08-13 17:55:00 [facility] XR PELVIS 1 OR 2 VW 2021-08-13 17:40:00 [facility] SURGICAL PATHOLOGY REQUEST 2021-08-13 17:14:00 O'Mayco Arriaga [facility] POC GLUCOSE 2021-08-13 17:13:00 O'Mayco Arriaga [facility] OR [place] > 1 HOUR 2021-08-13 16:07:00 [facility] X[facility] PELVIS 1 OR 2 VW 2021-08-13 16:01:00 [facility] [employer] CULTURE 2021-08-13 15:03:00 [facility] SODIUM LEVEL, SYRINGE 2021-08-13 15:03:00 OMayco Schroeder [facility] ARTERIAL BLOOD GAS, 2021-08-13 15:03:[address] [facility] CORRECTED HEMOGLOBIN, SYRINGE 2021-08-13 15:03:00 [facility] POTASSIUM, SYRINGE 2021-08-13 15:03:00 OMayco Schroeder [facility] IONIZED CALCIUM, ARTERIAL 2021-08-13 15:03:00 OMayco Schroeder [facility] GLUCOSE LEVEL, SYRINGE 2021-08-13 15:03:00 OMayco Schroeder [facility] MAGNESIUM LEVEL 2021-08-13 15:03:00 O'Arriaga, [facility] TRANSFUSE RED BLOOD CELLS 2021-08-13 15:03:00 Chip Oneal [facility] R AF[employer] CULTURE 2021-08-13 14:50:00 Zhou [facility] XR PELVIS 1 OR 2 VW 2021-08-13 14:50[facility] 2021-08-13 14:41:00 Brakimo, [facility] [employer] CULTURE 2021-08-13 14:35:00 Braly, [facility] [employer] CULTURE 2021-08-13 14:30:00 [facility]LOOD [facility], 2021-08-13 14:07:00 Anastasiya [facility] CORRECTED SODIUM LEVEL, SYRINGE 2021-08-13 14:07:00 Mayco Langford [facility] HEMOGLOBIN, SYRINGE 2021-08-13 14:07:00 Anastasiya [facility] POTASSIUM, SYRINGE 2021-08-13 14:07:00 Anastasiya [facility] IONIZED CALCIUM, ARTERIAL 2021-08-13 14:07:00 Corina [facility] GLUCOSE LEVEL, SYRINGE 2021-08-13 14:07:00 Mayco Langford [facility] MAGNESIUM LEVEL 2021-08-13 14:07:00 RaúlCorina [facility] ANAEROBIC CULTURE 2021-08-13 14:03:00 [facility] 2021-08-13 14:03:00 [facility]AIN 2021-08-13 14:03:00 [facility] ST[facility] 2021-08-13 14:03:00 [facility] TISSUE CULTURE 2021-08-13 14:03:00 [facility] ANAEROBIC CULTURE 2021-08-13 13:50:00 [facility] 2021-08-13 13:50:00 [facility] FUNGUS SMEAR 2021-08-13 13:50:00 Braly, [facility] [employer] STAIN 2021-08-13 13:50:00 Braly, [facility] TISSUE CULTURE 2021-08-13 13:50:00 Braly, [facility] ANAEROBIC CULTURE 2021-08-13 13:41:00 Braly, [facility] FUNGUS CULTURE 2021-08-13 13:41:00 Braly, [facility] GRAM STAIN 2021-08-13 13:41:00 Braly, [facility] [employer] STAIN 2021-08-13 13:41:00 Braly, [facility] TISSUE CULTURE 2021-08-13 13:41:00 Braly, [facility] ANAEROBIC CULTURE 2021-08-13 13:35:00 Braly, [facility] FUNGUS CULTURE 2021-08-13 13:35:00 Braly, [facility] GRAM STAIN 2021-08-13 13:35:00 Braly, [facility] [employer] STAIN 2021-08-13 13:35:00 Braly, [facility] TISSUE CULTURE 2021-08-13 13:35:00 Braly, [facility] ANAEROBIC CULTURE 2021-08-13 13:30:00 Braly, [facility] FUNGUS CULTURE 2021-08-13 13:30:00 Braly, [facility] GRAM STAIN 2021-08-13 13:30:00 Braly, [facility] [employer] STAIN 2021-08-13 13:30:00 Braly, [facility] TISSUE CULTURE 2021-08-13 13:30:00 Zhou, [facility] ARTERIAL BLOOD GAS, 2021-08-13 13:21:00 Mayco Langford [facility] CORRECTED POTASSIUM, SYRINGE 2021-08-13 13:21:00 Anastasiya [facility] SODIUM LEVEL, SYRINGE 2021-08-13 13:21:00 [facility] IONIZED CALCIUM, ARTERIAL 2021-08-13 13:21:00 Corina [facility] HEMOGLOBIN, SYRINGE 2021-08-13 13:21:00 Mayco Arriaga [facility] GLUCOSE LEVEL, SYRINGE 2021-08-13 13:21:00 Mayco Langford [facility] ARTERIAL LINE 2021-08-13 13:05:10 [facility] R MT AN ELECTIVE 2021-08-13 13:04:21 [facility] ENDOTRACHEAL AIRWAY R REVISION, ARTHROPLASTY, 2021-08-13 12:19:00 [facility] H[facility] CLOSURE, WOUND, LOWER 2021-08-13 12:19:00 [facility] EXTREMITY, USING ROTATION FLAP POC GLUCOSE 2021-08-13 11:40:00 Anastasiya [facility] HC COMPLETE BLD COUNT 2021-08-13 08:03:00 Mayco Langford [facility] W/AUTO DIFF XR FEMUR 2 VW RIGHT 2021-08-13 05:48:17 [facility] XR HIPS BILATERAL AP 2021-08-13 05:47:01 [facility] PELVIS TYPE AND SCREEN 2021-08-12 21:57:00 Anastasiya [facility] PREPARE RBC 2021-08-12 18:37:00 Jeremy Bills [facility] Maximino BASIC METABOLIC PANEL 2021-08-12 12:59:00 [facility] ESTIMATED GFR 2021-08-12 12:59:00 Anastasiya [facility] B NATRIURETIC PEPTIDE 2021-08-12 10:19:00 [facility] Muyiwa HC COMPLETE BLD COUNT 2021-08-12 10:19:00 [facility] W/AUTO DIFF Muwa BASIC METABOLIC PANEL 2021-08-12 01:21:00 [facility] ESTIMATED GFR 2021-08-12 01:21:00 CharityArriaga, [facility] CBC WITH PLATELET AND 2021-08-11 09:08:00 [facility] DIFFERENTIAL [facility] BASIC METABOLIC PANEL 2021-08-11 09:08:00 RaúlMayco Arriaga [facility] B NATRIURETIC PEPTIDE 2021-08-11 09:08:00 [facility] ESTIMATED GFR 2021-08-11 09:08:00 [facility], [facility] MAGNESIUM LEVEL 2021-08-11 01:16:00 Jonathan Meng [facility] spital BASIC METABOLIC PANEL 2021-08-11 01:16:00 Ysura [facility] ESTIMATED GFR 2021-08-11 01:16:00 Corina [facility] CBC WITH PLATELET AND 2021-08-10 09:31:00 [facility]co buck Conrad [facility] DIFFERENTIAL BASIC METABOLIC PANEL 2021-08-10 09:31:00 [facility]agaMayco buck Conrad [facility] HEPATIC FUNCTION PANEL 2021-08-10 09:31:00 [facility] ESTIMATED GFR 2021-08-10 09:31:00 [facility], [facility] MAGNESIUM LEVEL 2021-08-10 04:07:00 Jonathan Meng [facility] spital BASIC METABOLIC PANEL 2021-08-10 04:07:00 [facility] ESTIMATED GFR 2021-08-10 04:07:00 [facility], [facility] XR CHEST 1 VW PORTABLE 2021-08-09 17:42:43 RaúlMayco Arrigaa [facility] BASIC METABOLIC PANEL 2021-08-09 15:29:00 [facility] MAGNESIUM LEVEL 2021-08-09 15:29:00 Yusra [facility] spital ESTIMATED GFR 2021-08-09 15:29:00 [facility] CBC WITH PLATELET AND 2021-08-09 08:56:00 [facility] DIFFERENTIAL [facility] CREATINE KINASE, TOTAL 2021-08-09 08:56:00 Kelly Mcghee [facility] (K) Poly COMPREHENSIVE METABOLIC 2021-08-09 08:56:00 Mayco Langford [facility] PANEL B NATRIURETIC PEPTIDE 2021-08-09 08:56:00 aMyco Langford [facility] ESTIMATED GFR 2021-08-09 08:56:00 Mayco Langford [facility] TROPONIN 2021-08-09 05:22:00 [facility] ANTI-NEUTROPHILIC 2021-08-09 05:22:00 Mcghee Kelly [facility] CYTOPLASMIC ABS PANEL Poly RHEUMATOID FACTOR 2021-08-09 05:22:00 [facility] BASIC METABOLIC PANEL 2021-08-09 01:55:00 [facility] MAGNESIUM LEVEL 2021-08-09 01:55:00 Jonathan Meng Ho spital ESTIMATED GFR 2021-08-09 01:55:00 Mayco Langford [facility] BASIC METABOLIC PANEL 2021-08-08 23:41:00 [facility] MAGNESIUM LEVEL 2021-08-08 23:41:00 Jonathan Meng spital TROPONIN 2021-08-08 23:41:00 [facility] HIV AG/AB COMBINATION 2021-08-08 23:41:00 [facility] Poly ESTIMATED GFR 2021-08-08 23:41:00 Mayco Langford [facility] US CAROTID DUPLEX 2021-08-08 21:10:00 [facility] BILATERAL RESPIRATORY PATHOGEN PANEL 2021-08-08 19:41:00 ScandreialaSelma [facility] WITH COVID-19 RT-PCR [facility] VANCOMYCIN LEVEL, TROUGH 2021-08-08 19:36:00 Shannan Gibbons [facility] TROPONIN 2021-08-08 19:36:00 [facility] LACTIC ACID LEVEL 2021-08-08 19:36:00 [facility] ECG 12-LEAD 2021-08-08 18:54:16 Jose Grigsby [facility] XR CHEST 1 VW PORTABLE 2021-08-08 16:55:00 Jose Grigsby [facility] ARTERIAL BLOOD GAS 2021-08-08 13:50:00 Anyi Ruby [facility] ECG 12-LEAD 2021-08-08 13:40:55 Jose Grigsby [facility] RHEUMATOID FACTOR 2021-08-08 13:40:00 Jose Grigsby [facility] ALY 2021-08-08 13:40:00 Calista [facility] CYCLIC CITRULLINATED 2021-08-08 13:40:00 Jose Grigsby [facility] PEPTIDE AB, IGG [facility] LACTIC ACID LEVEL 2021-08-08 13:37:[address] [facility] HEPATIC FUNCTION PANEL 2021-08-08 13:37:00 Jose Grigsby [facility] TROPONIN 2021-08-08 13:37:00 Jose Grigsby [facility] T4, FREE 2021-08-08 13:37:00 Calista [facility] T3 2021-08-08 13:37:00 Calista [facility] POC GLUCOSE 2021-08-08 13:30:00 Mayco Langford [facility] B NATRIURETIC PEPTIDE 2021-08-08 09:28:00 Mayco Langford [facility] FOLATE LEVEL 2021-08-08 09:28:00 [facility] HEMOGLOBIN A1C 2021-08-08 09:28:00 [facility] VITAMIN B12 LEVEL 2021-08-08 09:28:00 [facility] VITAMIN D 25 HYDROXY LEVEL 2021-08-08 09:28:00 [facility] BASIC METABOLIC PANEL 2021-08-08 09:28:00 [facility] HC COMPLETE BLD COUNT 2021-08-08 09:28:00 [facility] W/AUTO DIFF [facility] MAGNESIUM LEVEL 2021-08-08 09:28:00 [facility] ESTIMATED GFR 2021-08-08 09:28:00 Mayco Langford [facility] POC GLUCOSE 2021-08-08 05:02:00 Mayco Langford Conrad [facility] CT LOWER EXTREMITY WO 2021-08-08 01:40:14 Cecilia Robison [facility] CONTRAST RIGHT MAGNESIUM LEVEL 2021-08-08 01:00:00 [facility] BASIC METABOLIC PANEL 2021-08-08 01:00:00 [facility] ESTIMATED GFR 2021-08-08 01:00:00 Mayco Langford [facility] US DUPLEX VENOUS LOWER 2021-08-07 19:45:00 Jose Luis Verenice, [facility] EXTREMITY LEFT Amber TTE COMPLETE, W CONTRAST, 2021-08-07 19:19:00 Mayco Langford [facility] W DOPPLER ([id number]) COVID-19 QUALITATIVE 2021-08-07 19:04:00 Unique Burks [facility] RT-PCR Helga CT ANGIOGRAM PE CHEST 2021-08-07 17:34:00 Geetha Ratliff [facility] HC COMPLETE BLD COUNT 2021-08-07 10:35:00 Mayco Langford [facility] W/AUTO DIFF BASIC METABOLIC PANEL 2021-08-07 10:35:00 Mayco Langford [facility] B NATRIURETIC PEPTIDE 2021-08-07 10:35:00 Mayco Langford [facility] THYROID STIMULATING 2021-08-07 10:35:00 [facility] HORMONE TYPE AND SCREEN 2021-08-07 10:35:00 Mayco Langford [facility] ESTIMATED GFR 2021-08-07 10:35:00 Mayco Langford [facility] XR CHEST 1 VW PORTABLE 2021-08-07 06:40:28 Mayco Langford [facility] COVID-19 ANTI-SPIKE IGG 2021-08-07 06:14:00 Mayco Langford [facility] ANTIBODY TITER COVID-19 SEROLOGY PATIENT 2021-08-07 06:14:00 Mayco Langford [facility] SURVEILLANCE CBC WITH PLATELET AND 2021-08-07 06:14:00 Mayco Langford [facility] DIFFERENTIAL PROTHROMBIN TIME WITH INR 2021-08-07 06:14:00 Mayco Langford [facility] BASIC METABOLIC PANEL 2021-08-07 06:14:00 Mayco Langford [facility] MAGNESIUM LEVEL 2021-08-07 06:14:00 Mayco Langford [facility] TROPONIN 2021-08-07 06:14:00 Brennon Tate spital Jose PHOSPHORUS LEVEL 2021-08-07 06:14:00 Brennon Tate ospital Jose ESTIMATED GFR 2021-08-07 06:14:00 Mayco Langford [facility] ECG 12-LEAD 2021-08-07 05:43:53 Mayco Langford [facility] [id number] 2021-07-10 00:00:00 JONST.02 [facility] [id number] 2021-07-09 00:00:00 MATVA.01 [facility] [id number] 2021-07-09 00:00:00 MATVA.01 [facility] [id number] 2021-07-09 00:00:00 MATVA.01 [facility] [id number] 2021-07-09 00:00:00 AGUSTINA [facility] [id number] 2021-07-09 00:00:00 AGUSTINA [facility] [id number] 2021-05-21 00:00:00 MATVA.01 [facility] US DUPLEX ARTERIAL LOWER 2021-05-15 21:18:49 Royce Gibbons [facility] EXTREMITY BILATERAL [id number] 2021-03-15 00:00:00 MATVA.01 [facility] [QL] CBC (INCLUDES 2021-03-13 00:00:00 [facility] DIFF/PLT) [Q] PATHOLOGIST REVIEW OF 2021-03-13 00:00:00 [facility] PERIPHERAL SMEAR [QL] PROTEIN, TOTAL AND 2021-03-13 00:00:00 [facility] PROTEIN ELECTROPHORESIS [QL] IMMUNOGLOBULINS 2021-03-13 00:00:00 [facility] [QL] BETA 2 GLYCOPROTEIN I 2021-03-13 00:00:00 [facility] AB (IGG,IGA,IGM) [QL] CARDIOLIPIN AB 2021-03-13 00:00:00 [facility] (IGA,IGG,IGM) [Q] MISCELLANEOUS REFERRAL 2021-03-13 00:00:00 [facility] [QL] FACTOR V (LEIDEN) 2021-03-13 00:00:00 [facility] MUTATION ANALYSIS [QL] PROTHROMBIN (FACTOR 2021-03-13 00:00:00 [facility] II) [id number] MUTATION ANALYSIS MRI SPINE EXTERNAL STUDY 2021-01-08 23:18:00 Robert Antony [facility] MA Digital Mammo Screening 2020-09-25 00:00:00 [facility] Elbert [id number] [QL] TSH, 3RD GENERATION 2020-04-14 00:00:00 [facility] W/REFLEX TO FT4 [QL] PROLACTIN 2020-04-14 00:00:00 [facility] MA Digital Mammo DX Elbert w 2020-04-14 00:00:00 [facility] [place] [id number] [place] [id number] 2019-08-23 00:00:00 [facility] [QLH] CULTURE, URINE, 2019-08-18 00:00:00 [facility] ROUTINE MA Digital Mammo DX Elbert 2019-08-13 00:00:00 [facility] G0204 US Breast Bilat [id number] 2019-08-13 00:00:00 [facility] MA Digital Mammo Screening 2019-08-09 00:00:00 [facility] Elbert G0202 US Pelvis with Pelvis 2019-08-09 00:00:00 [facility] Transvaginal [id number] . [facility] - Affirm VPIII 2019-08-09 00:00:00 [facility] (BV Panel) . [facility] - GC/Chlamydia 2019-08-09 00:00:00 [facility] History of Total Abdominal [facility] Hysterectomy History of Breast [facility] augmentation History of Ostectomy of [facility] calcaneus for spur History [facility] Tonsillectomy [facility] History of Adenoidectomy [facility] History of Cholecystectomy [facility] History of Shoulder [facility] Surgery History of Complete [facility] Colonoscopy History of Colonic [facility] polypectomy Plan of Care Planned Activity Planned Date Details Comments Source Future Scheduled Test 2022-10-01 Pneumococcal Vaccine: [facility] 03:44:26 Pediatrics (0 to 5 Years) and At-Risk Patients (6 to 64 Years) (1 - PCV) [code = Pneumococcal Vaccine: Pediatrics (0 to 5 Years) and At-Risk Patients (6 to 64 Years) (1 - PCV)] Future Scheduled Test 2022-10-01 Hepatitis C screening [facility] 03:44:26 (procedure) [code = 130680188] Future Scheduled Test 2022-10-01 SHINGLES VACCINES (1 [facility] 03:44:26 of 2) [code = SHINGLES VACCINES (1 of 2)] Future Scheduled Test 2022-10-01 COLONOSCOPY SCREENING [facility] 03:44:26 [code = COLONOSCOPY SCREENING] Future Scheduled Test 2022-10-[address] [facility] 03:44:26 SCREENING [code = BREAST CANCER SCREENING] Future Scheduled Test 2022-10-[address] [facility] 03:44:26 malignant neoplasm of cervix (procedure) [code = 733056431] Future Scheduled Test 2022-10-01 HEPATITIS B VACCINES [facility] 03:44:26 (1 of 3 - Risk 3-dose series) [code = HEPATITIS B VACCINES (1 of 3 - Risk 3-dose series)] Future Scheduled Test 2022-10-01 COVID-19 VACCINE (4 - [facility] 03:44:26 Booster for Moderna series) [code = COVID-19 VACCINE (4 - Booster for Moderna series)] Future Scheduled Test 2022-10-01 INFLUENZA VACCINE [facility] 03:44:26 [code = INFLUENZA VACCINE] Future Scheduled Test 2021-12-12 Hepatitis C screening [facility] 09:07:24 (procedure) [code = 646436439] Future Scheduled Test 2021-12-12 COLONOSCOPY SCREENING [facility] 09:07:24 [code = COLONOSCOPY SCREENING] Future Scheduled Test 2021-12-12 SHINGLES VACCINES [facility] 09:07:24 (#1) [code = SHINGLES VACCINES (#1)] Future Scheduled Test 2021-12-[address] [facility] 09:07:24 SCREENING [code = BREAST CANCER SCREENING] Future Scheduled Test 2021-12-12 INFLUENZA VACCINE [facility] 09:07:24 [code = INFLUENZA VACCINE] Future Scheduled Test 2021-12-12 COVID-19 VACCINE ([address] [place] [address] 09:07:24 Booster for Moderna series) [code = COVID-19 VACCINE (3 - Booster for Moderna series)] Future Scheduled Test 2021-12-[address] [facility] 09:07:24 malignant neoplasm of cervix (procedure) [code = [id number]] Future Scheduled Test 2021-12-04 Hepatitis C screening [facility] 08:56:23 (procedure) [code = [id number]] Future Scheduled Test 2021-12-04 COLONOSCOPY SCREENING [facility] 08:56:23 [code = COLONOSCOPY SCREENING] Future Scheduled Test 2021-12-04 SHINGLES VACCINES [facility] 08:56:23 (#1) [code = SHINGLES VACCINES (#1)] Future Scheduled Test 2021-12-[address] [facility] 08:56:23 SCREENING [code = BREAST CANCER SCREENING] Future Scheduled Test 2021-12-04 INFLUENZA VACCINE [facility] 08:56:23 [code = INFLUENZA VACCINE] Future Scheduled Test 2021-12-04 COVID-19 VACCINE ([address] [place] [address] 08:56:23 Booster for Moderna series) [code = COVID-19 VACCINE (3 - Booster for Moderna series)] Future Scheduled Test 2021-12-[address] [facility] 08:56:23 malignant neoplasm of cervix (procedure) [code = [id number]] Instructions [facility] Encounters Start End Encounter Admission Attending Care Care Encounter Source Date/Time Date/Time Type Type Clinicians Facility Department ID 2022-07-04 Inpatient NADINE PenaTO SURG [id number] [facility] 07:30:00 Felix [id number] [facility] 2021-11-16 Outpatient FRANCOIS [facility] [id number] [place] 15:45:02 [facility] 2022-10-01 2022-10-01 Transition KEN Padilla [id number] [facility] 00:00:00 00:00:00 of Care Raphael Frost LEYVA [id number] ity [facility] [id number] [place] [id number] [facility] [address] 2022-09-28 2022-09-29 Inpatient U [facility] [id number] Univers 10:56:00 15:19:00 MIKA ity of [facility] 2022-09-28 2022-09-29 [facility] ASIA SoniNIE [id number] Univers 10:56:00 15:19:00 Encounter Mika TERESA [id number] [facility] [id number] Jairo as [id number] [facility] [address] 2022-09-20 2022-09-20 Telephone Ryan 1.2.840.1 [id number] Methodi 00:00:00 00:00:00 , Mary [id number] 3.430.2.7 Hospit a .3.904687 l .8 2022-09-18 2022-09-18 Telephone Ryan 1.2.840.1 [id number] Methodi 00:00:00 00:00:00 , Mary [id number] 3.430.2.7 Hospit a .3.733387 l .8 2022-09-17 2022-09-17 Office Richard 1.2.840.1 [id number] Methodi 09:30:00 10:30:00 Visit Briseida A. [id number] 3.430.2.7 Hospit a .3.527151 l .8 2022-09-17 2022-09-17 Lab Richard, 1.2.840.1 [id number] Methodi 09:30:00 09:35:00 Briseida Frost[address] 3.430.2.7 Hospit a .3.658731 l .8 2022-09-17 2022-09-17 Ramos Allen, 1.2.840.1 [id number] Methodi 00:00:00 00:00:00 Only Lolly 53263.1.[address] 3.430.2.7 Hospit a .3.486726 l .8 2022-09-17 2022-09-17 Travel 1.2.840.1 [id number] Methodi 00:00:00 00:00:[id number] 3.430.2.7 0.2.7.3.698 Ho spita .3.536073 084.8 l .8 2022-09-17 2022-09-17 Outpatient RICHARD, [facility] [id number] [place] 00:00:00 00:00:[address] 2022-09-17 2022-09-17 Outpatient RICHARD, [facility] [id number] [place] 00:00:00 00:00:00 BR[address] 2022-09-13 2022-09-13 Ramos Allen, 1.2.840.1 [id number] Methodi 00:00:00 00:00:00 Only Lolly [address]08.1.[address] 3.430.2.7 Hospit a .3.560112 l .8 2022-09-04 2022-09-04 Office Thaddeus, 1.2.840.1 [id number] 21 [id number] Methodi 08:30:00 09:03:37 Visit Todd 89691.1.[address] Deon 3.430.2.7 Hospit a .3.999789 l .8 2022-09-04 2022-09-04 Travel 1.2.840.1 1.2.875.966 1559 874827 Methodi 00:00:00 00:00:[address] 3.430.2.7 0.2.7.3.698 Ho spita .3.790109 084.8 l .8 2022-09-04 2022-09-04 Outpatient EL-SHERYL, [facility] 656 [id number] [place] 00:00:00 00:00:00 TODD [address] 2022-09-03 2022-09-03 Outpatient FOG_Braly_H AOSM AOSM 567 4941-20 Nathalie 00:00:00 00:00:00 Sharath 343372 Orth ope dic [facility] 2022-09-03 2022-09-03 [place] AOSM [place] - Ortho [id number] 5 Nathalie 00:00:00 00:00:00 EDUARD E[facility]erson [facility] MD: [id number] FOG_Ofc dic [place] [address], [place] [address] , Ph. [phone] 2022-09-02 2022-09-02 Outpatient FOG_Braly_H AOSM AOSM 567 4941-20 Nathalie 00:00:00 00:00:00 Sharath 032390 Orth ope dic Sports Medicin e 2022-09-01 2022-09-01 Outpatient FOG_Braly_H AOSM AOSM 567 4941-20 Nath[place]ie 00:00:00 00:00:00 Sharath 008005 Orth ope dic Sports Medicin e 2022-08-27 2022-08-27 Outpatient FOG_Braly_H AOSM AOSM 567 4941-20 Nathalie 00:00:00 00:00:00 Sharath 641294 Orth ope dic Sports Medicin e 2022-08-27 2022-08-27 Felix Rojas AOSM [place] - Ortho [id number] [place]ie 00:00:00 00:00:00 Cathy Bliss MD: 7401 FOG_Ofc dic [facility] [place] [address] , Ph. [phone] 2022-08-27 2022-08-27 Oncology Peters, 1.2.840.1 [id number] 2100 457461 Methodi 00:00:00 00:00:00 [facility] Chase 32781.1.1 986 s t ip 3.430.2.7 Hospit a .3.105903 l .8 2022-08-26 2022-08-26 Telephone Remi Garcia 1.2.840.1 [id number] Methodi 00:00:00 00:00:[address] 3.430.2.7 Hospit a .3.307053 l .8 2022-08-23 2022-08-23 [facility], 1.2.840.1 [id number] 2 [id number] Methodi 09:32:17 23:59:00 Encounter Todd 36186.1.[address] Deon 3.430.2.7 Hospit a .3.982936 l .8 2022-08-23 2022-08-23 Travel 1.2.840.1 1.2.249.676 9495 302746 Methodi 00:00:00 00:00:[address] 3.430.2.7 0.2.7.3.698 spita .3.378100 084.8 l .8 2022-08-23 2022-08-23 Outpatient [facility] 613 [id number] [place] 00:00:00 00:00:00 TODD 308 Method i 2022-08-23 2022-08-23 Outpatient [facility] 631 [id number] [place] 00:00:00 00:00:00 TODD 713 Method i 2022-08-19 2022-08-20 Emergency Eliot, 1.2.840.1 [id number] Methodi 23:02:00 05:10:[address] Peter 3.430.2.7 Hospit a .3.949444 l .8 2022-08-20 2022-08-20 Telephone Allen, 1.2.840.1 [id number] 2 [id number] Methodi 00:00:00 00:00:[address] 3.430.2.7 Hospit a .3.177503 l .8 2022-08-20 2022-08-20 Travel 1.2.840.1 1.2.288.585 0216 483148 Methodi 00:00:00 00:00:[address] 3.430.2.7 0.2.7.3.698 Ho spita .3.741425 084.8 l .8 2022-08-20 2022-08-20 Telephone Ryan 1.2.840.1 [id number] Methodi 00:00:00 00:00:00 , Mary 35119.1.[address] 3.430.2.7 Hospit a .3.028251 l .8 2022-08-20 2022-08-20 Telephone [facility], 1.2.840.1 [id number] Methodi 00:00:00 00:00:[address] Deon 3.430.2.7 Hospit a .3.343724 l .8 2022-08-19 2022-08-20 Emergency [place] [address] [id number] 250 [place] 00:00:00 00:00:[address] DOC [address] 2022-08-19 2022-08-19 Orders Ryan 1.2.840.1 [id number] 21 [id number] Methodi 00:00:00 00:00:00 Only , Mary 48915.1.[address] 3.430.2.7 Hospit a .3.929441 l .8 2022-08-14 2022-08-14 Office [facility], 1.2.840.1 [id number] 21 [id number] Methodi 08:30:00 09:00:00 Visit Todd 22464.1.[address] Deon 3.430.2.7 Hospit a .3.006218 l .8 2022-08-14 2022-08-14 Telephone Ryan 1.2.840.1 [id number] Methodi 00:00:00 00:00:00 , Mary 94701.1.[address] 3.430.2.7 Hospit a .3.292960 l .8 2022-08-14 2022-08-14 Orders Ryan 1.2.840.1 [id number] Methodi 00:00:00 00:00:00 Only , Mary 75790.1.[address] 3.430.2.7 Hospit a .3.304902 l .8 2022-08-14 2022-08-14 Travel 1.2.840.1 1.2.044.435 9654 642886 Methodi 00:00:00 00:00:[address] 3.430.2.7 0.2.7.3.698 Ho spita .3.328137 084.8 l .8 2022-08-14 2022-08-14 Outpatient [facility], [facility] 951 [id number] [place] 00:00:00 00:00:00 TODD [address] 2022-08-12 2022-08-12 Travel 1.2.840.1 1.2.828.189 5594 984050 Methodi 00:00:00 00:00:[address] 3.430.2.7 0.2.7.3.698 Ho spita .3.678043 084.8 l .8 2022-08-11 2022-08-11 Outpatient FOG_Braly_H AOSM AOSM 567 4941-20 Nath[place]ie 00:00:00 00:00:00 Sharath 345975 Orth ope dic Sports Medicin e 2022-08-01 2022-08-01 Travel 1.2.840.1 1.2.991.933 9772 724857 Methodi 00:00:00 00:00:[address] 3.430.2.7 0.2.7.3.698 Ho spita .3.354439 084.8 l .8 2022-07-19 2022-07-19 Outpatient FOG_Braly_H AOSM AOSM 567 4941-20 Nathalie 00:00:00 00:00:00 Sharath 960897 Orth ope dic Sports Medicin e 2022-07-19 2022-07-19 Outpatient TRITSIAN Bliss AOSM 3bbcdc c6-3 00:00:00 00:00:00 Felix Rojas 04a-11ed-b [id number] 2022-07-19 2022-07-19 Felix Rojas AOSM [place] - Ortho [id number] Nath[place]ie 00:00:00 00:00:00 Cathy Bliss MD: 7401 FOG_Ofc dic [facility], [place] [address] , Ph. [phone] 2022-07-16 2022-07-16 Outpatient FOG_Braly_H AOSM AOSM 567 4941-20 Nathalie 00:00:00 00:00:00 Sharath 607039 Orth ope dic Sports Medicin e 2022-07-08 2022-07-08 Outpatient FOG_Braly_H AOSM AOSM 567 4941-20 Nath[place]ie 00:00:00 00:00:00 Sharath 937903 Orth ope dic Sports Medicin e 2022-07-04 2022-07-05 Inpatient [facility] [id number] [facility] 05:59:00 20:15:00 Felix Pulido Orthope dic Hospita l 2022-07-01 2022-07-01 Outpatient FOG_Braly_H AOSM AOSM 567 4941-20 N[place]ie 00:00:00 00:00:00 Sharath 684619 Orth ope dic Sports Medicin e 2022-06-14 2022-06-14 Outpatient FOG_Braly_H AOSM AOSM 567 4941-20 N[place]ie 00:00:00 00:00:00 Sharath 601145 Orth ope dic Sports Medicin e 2022-06-11 2022-06-11 Outpatient FOG_Braly_H AOSM AOSM 567 4941-20 Nath[place]ie 00:00:00 00:00:00 Sharath 470163 Orth ope dic Sports Medicin e 2022-06-10 2022-06-10 Outpatient FOG_Braly_H AOSM AOSM 567 4941-20 N[place]ie 00:00:00 00:00:00 Sharath 080937 Orth ope dic Sports Medicin e 2022-06-04 2022-06-04 [facility] [id number] [facility] 16:17:00 16:17:00 Felix Lang [facility] 2022-06-04 2022-06-04 Outpatient FOG_Braly_H AOSM AOSM 567 4941-20 Nath[place]ie 03:42:00 03:42:00 Sharath 840541 Orth ope dic Sports Medicin e 2022-06-04 2022-06-04 Outpatient Zhou TRISTIAN AOSM xzk1n4l 4-0 00:00:00 00:00:00 [place] dc2-11ed-b [id number] 1no610 2022-06-04 2022-06-04 [place] AOSM [place] - Ortho [id number] 6 Nathalie 00:00:00 00:00:00 EDUARD [facility] MD: 74822 FOG[facility]Ofc dic [place] [facility] [address] [place] [address] , Ph. [phone] 2022-05-29 2022-05-29 Outpatient FOG_Braly_H AOSM AOSM 567 4941-20 Nath[place]ie 06:47:00 06:47:00 Sharath 169311 Orth ope dic Sports Medicin e 2022-05-29 2022-05-29 Outpatient RuthyTRISTIAN guillermo AOSM 2c6fcc 38-0 00:00:00 00:00:00 Felix Rojas 881-11ed-b [id number] 2022-05-29 2022-05-29 Felix Rojas AOSM [place] - Orth[place] [id number] 0 N[place]ie 00:00:00 00:00:00 Cathy Bliss MD: 7401 FOG_Ofc dic [facility] [place] [address] , Ph. [phone] 2022-05-28 2022-05-28 Outpatient FOG_Braly_H AOSM AOSM 567 4941-20 Nathalie 05:09:00 05:09:00 Sharath 137781 Orth ope dic Sports Medicin e 2022-05-24 2022-05-24 Outpatient FOG_Braly_H AOSM AOSM 567 4941-20 [place]ie 03:57:00 03:57:00 Sharath 894056 Orth ope dic Sports Medicin e 2022-05-22 2022-05-22 Outpatient FOG_Mathews AOSM AOSM 567 4941-20 Nath[place]ie 05:14:00 05:14:00 _Raji 860001 Orth ope dic Sports Medicin e 2022-05-22 2022-05-22 Outpatient TRISTIAN Bliss AOMONICA rj1972 12-0 00:00:00 00:00:00 Felix Rojas 875-11ed-b [id number] 2022-05-22 2022-05-22 Felix Rojas AOSM [place] - Orth[place] [id number] [place]ie 00:00:00 00:00:00 Cathy Bliss MD: 7401 FOG_Ofc dic [facility] [place] [facility] [place] [address] , Ph. [phone] 2022-05-20 2022-05-20 Outpatient FOG_Mathews AOSM AOSM 567 4941-20 Nath[place]ie 01:59:00 01:59:00 _Raji 830951 Orth ope dic Sports Medicin e 2022-05-10 2022-05-10 Outpatient FOG_Mathews AOSM AOSM 567 4941-20 N[place]ie 04:07:00 04:07:00 _Raji 983419 Orth ope dic Sports Medicin e 2022-04-30 2022-04-30 Emergency Mowaevelio, 1.2.840.1 [id number] 2100 864462 Methodi 15:49:00 19:36:[address] Lydia 3.430.2.7 Hospit a .3.806198 l .8 2022-04-30 2022-04-30 Travel 1.2.840.1 1.2.781.468 5649 826070 Methodi 00:00:00 00:00:[address] 3.430.2.7 0.2.7.3.698 Ho spita .3.133215 084.8 l .8 2022-04-30 2022-04-30 Emergency MOWAD, [facility] 064 [id number] 93 [place] 00:00:00 00:00:00 BALDEMAR [address] 2021-11-20 2021-11-20 Outpatient Zhou HCACL LABO [id number] [facility] 18:40:00 18:40:[address] 2021-11-20 2021-11-20 Outpatient NADINE AbreuTO RADI [id number] [facility] 13:14:00 13:14:[address] Orthope dic Hospita l 2021-08-21 2021-08-21 Telephone Akiko Luong [facility] 6410 1.2.840. 114 [id number] [place] 00:00:00 00:00:[address] 350.1.13.58 Health 9.2.7.2.686 [id number] 7 2021-08-06 2021-08-16 [facility] Anastasiya, 1.2.840.1 [id number] 2100 536126 Methodi 20:50:00 15:08:00 Ld Keenan 74122.1.[address] 3.430.2.7 Hospit a .3.224139 l .8 2021-08-13 2021-08-13 Surgery Zhou, 1.2.840.1 [id number] 705809 7921 Methodi 07:15:00 12:35:00 Baldem[address] Oconnor [address] 3.430.2.7 Hospit a .3.682928 l .8 2021-08-13 2021-08-13 Anesthesia Deny Oneal 1.2.840. 1 [id number] Methodi 07:20:00 12:14:00 Unique Beltre [address]40.1.[address] 3.430.2.7 Hospit a .3.236098 l .8 2021-08-04 2021-08-06 Inpatient NADINE ZhengTO ADMI [id number] [facility] 14:51:00 20:45:00 Yahir 52 [place] [facility] 2021-08-04 2021-08-04 [facility] [id number] [facility] 22:10:00 22:10:00 Yahir 80 [facility] 2021-07-09 2021-07-13 Inpatient NADINE ZhengTO SURG [id number] [facility] 09:31:00 19:36:00 Yahir 66 [place] [facility] 2021-07-05 2021-07-05 Outpatient NADNIE ZhengCL LABO [id number] [facility] 18:29:00 18:29:00 Yahir 89 [facility] 2021-06-27 2021-06-27 Telephone Carroll Avendano 1.2.840.1 [id number] 21 [id number] Methodi 00:00:00 00:00:[address] 3.430.2.7 Hospit a .3.190553 l .8 2021-06-22 2021-06-22 Outpatient YANIRA Zheng LABO [id number] [facility] 18:09:00 18:09:00 Yahir 07 [facility] 2021-06-22 2021-06-22 Outpatient NADINE ZhengTO RADI [id number] [facility] 10:16:00 10:16:00 Yahir 84 [place] [facility] 2021-05-21 2021-05-22 Inpatient LIA Zheng ADMI [id number] [facility] 10:04:00 13:24:00 Yahir 68 [place] [facility] 2021-05-17 2021-05-17 Telephone Shawn 1.2.840.1 [id number] 2100 935262 Methodi 00:00:00 00:00:00 [address] 3.430.2.7 Hospit a .3.940465 l .8 2021-05-15 2021-05-15 Travel 1.2.840.1 1.2.671.209 2129 896802 Methodi 00:00:00 00:00:[address] 3.430.2.7 0.2.7.3.698 Ho spita .3.645335 084.8 l .8 2021-05-15 2021-05-15 Outpatient GIBBONS [facility] [id number] [place] 00:00:00 00:00:00 ROYCE [address] 2021-04-27 2021-04-27 Outpatient NADINE Hendrix LABO [id number] [facility] 18:17:00 18:17:00 Yahir 38 [facility] 2021-04-24 2021-04-24 Office Shawn 1.2.840.1 [id number] 0768 Methodi 08:55:49 11:43:07 Visit Royce Suazo 78812.1.[address] 3.430.2.7 Hospit a .3.103240 l .8 2021-04-24 2021-04-24 Travel 1.2.840.1 1.2.572.401 2277 189089 Methodi 00:00:00 00:00:[address] 3.430.2.7 0.2.7.3.698 Ho spita .3.131895 084.8 l .8 2021-04-19 2021-04-19 Outpatient LIA Zheng RADI [id number] [facility] 10:32:00 10:32:00 Yahir 54 [place] [facility] 2021-04-03 2021-04-03 Telephone Kristian [facility] 4 1.2.840.114 1 [id number] 00:00:00 00:00:00 Steve 350.1.13.58 9.2.7.2.686 [id number] 4 2021-04-03 2021-04-03 Telephone Kristian [facility] 4 1.2.840.114 1 [id number] [place] 00:00:00 00:00:00 Steve 350.1.13.58 He alth 9.2.7.2.686 [id number] 4 2021-03-30 2021-03-30 Travel 1.2.840.1 1.2.455.760 0794 452177 Methodi 00:00:00 00:00:[address] 3.430.2.7 0.2.7.3.698 Ho spita .3.143041 084.8 l .8 2021-03-17 2021-03-17 Inpatient EL Simeon LIA MCCOYTO [id number] [facility] 19:18:01 19:18:01 Yahir 28 [place] [facility] 2021-03-13 2021-03-13 Appointmen ADULT, [facility] 743 [id number] [place] 13:00:00 13:00:00 t; ADULT, THROMBOSIS Hemophilia Physici THROMBOSIS and ans Thrombophil or Center [facility] 2021-03-09 2021-03-09 Outpatient NADINE Hendrix LABO [id number] [facility] 17:53:00 17:53:00 Yahir 92 [facility] 2021-03-09 2021-03-09 [facility] [id number] [facility] 13:36:00 13:36:00 [facility]ahir [facility] 2021-03-06 2021-03-06 Outpatient Ruthy LIA MCCOYTO [id number] [facility] 13:56:26 13:56:26 Felix 05 [place] [facility] 2021-01-26 2021-01-26 Ramos Antony, 1.2.840.1 [id number] 8035 Methodi 00:00:00 00:00:00 Only Robert Kee 53486.1.1 082 s t 3.430.2.7 Hospit a .3.793622 l .8 2021-01-22 2021-01-22 [facility], 1.2.840.1 [id number] 91904 28973 Methodi 17:08:49 23:59:00 Encounter Robert Kee 43684.1.[address] 3.430.2.7 Hospit a .3.166976 l .8 2021-01-22 2021-01-22 [facility], 1.2.840.1 [id number] 94402 45119 Methodi 17:08:23 23:59:00 Encounter Robert Kee 33167.1.[address] 3.430.2.7 Hospit a .3.048150 l .8 2021-01-22 2021-01-22 Office Mernoe, 1.2.840.1 [id number] 816194 8444 Methodi 14:40:52 16:01:45 Visit Marissa Frank 83181.1.1 067 s t 3.430.2.7 Hospit a .3.834194 l .8 2021-01-22 2021-01-22 Travel 1.2.840.1 1.2.426.748 5646 017182 Methodi 00:00:00 00:00:[address] 3.430.2.7 0.2.7.3.698 Ho spita .3.399090 084.8 l .8 2021-01-20 2021-01-20 Emergency Bella, 1.2.840.1 [id number] 2 [id number] Methodi 16:16:00 16:58:[address] 3.430.2.7 Hospit a .3.734268 l .8 2021-01-20 2021-01-20 Travel 1.2.840.1 1.2.588.909 3655 163260 Methodi 00:00:00 00:00:[address] 3.430.2.7 0.2.7.3.698 Ho spita .3.099040 084.8 l .8 2021-01-20 2021-01-20 Documentat Provider, 1.2.840.1 [id number] 2 [id number] Methodi 00:00:00 00:00:00 ion Unknown 02440.1.[address] 3.430.2.7 Hospit a .3.078763 l .8 2021-01-16 2021-01-16 Travel 1.2.840.1 1.2.960.874 3773 730626 Methodi 00:00:00 00:00:[address] 3.430.2.7 0.2.7.3.698 Ho spita .3.962354 084.8 l .8 2020-10-16 2020-10-16 Laboratory Lab, [facility] 1.2.840.114 80 [id number] 16:55:10 17:15:10 Only Fam Pob I Health 350.1.13.10 [place] 4.2.7.2.686 Professio [id number] [place] [address] [address] One 2020-10-16 2020-10-16 Laboratory Lab, [facility] Fam Pob I [facility] 1.2. 840.114 [id number] Univers 16:55:10 17:15:10 Only Max Mendez [facility] 350.1.13.10 ity [facility] 4.2.7.2.686 Jairo as Professio [id number] Wa dical [address] Office Building One 2020-10-16 2020-10-16 Outpatient R TORI [facility] [id number] Univers 16:40:00 16:40:00 MAX ity [facility] 2020-10-16 2020-10-16 Letter Doctor BENY 1.2.840.114 [id number] 00:00:00 00:00:00 (Out) Unassigned, TERESA 350.1.13.10 [facility] 4.2.7.2.686 [id number] 044 2020-10-16 2020-10-16 Letter Doctor BENY 1.2.840.114 [id number] Univers 00:00:00 00:00:00 (Out) Unassigned, TERESA 350.1.13.10 ity of [facility] 4.2.7.2.686 Jairo as [id number] [facility] 044 [address] 2020-09-25 2020-09-25 Appointmen FERNANDO MCKEON [facility] [id number] [place] 09:00:00 09:00:00 t; LUCAS MCKEON M.D. [facility] Kristi ZAVALA M.D. 2020-08-03 2020-08-03 Outpatient GIBBONS, [facility] 668 [id number] 364 [place] 00:00:00 00:00:00 ROYCE 912 Method i 2020-08-02 2020-08-02 Outpatient GIBBONS, [facility] [id number] 369 [place] 00:00:00 00:00:00 ROYCE 863 Method i 2020-08-01 2020-08-01 Outpatient GIBBONS, [facility] [id number] 364 [place] 00:00:00 00:00:00 ROYCE 442 Method i 2020-08-01 2020-08-01 Outpatient GIBBONS, [facility] [id number] [place] 00:00:00 00:00:00 ROYCE 703 Method i 2020-07-31 2020-07-31 Outpatient GIBBONS, [facility] [id number] 108 [place] 00:00:00 00:00:00 ROYCE 438 Method i 2020-07-25 2020-07-25 [facility] [id number] [place] 00:00:00 00:00:00 ROYCE 149 Method i 2020-06-28 2020-06-28 Outpatient COH COH PDPFEBW YEG COH 00:00:00 00:00:00 CIGT-05298 123 2020-06-22 2020-06-22 Outpatient STAYVONNE, [facility] [id number] [place] 00:00:00 00:00:00 SIL [address] 2020-04-17 2020-04-17 Appointmen FERNANDO HAYWARD UTP [id number] 60 [place] 15:40:00 15:40:00 t; Lamont FRAZIER M.D. ans SUBHRATHA, M.D. 2020-04-14 2020-04-14 [facility] [id number] 95 [place] 08:30:00 08:30:00 t; Sonia FRAZIER [facility] Son Paiz M.D. 2019-09-16 2019-09-16 Appointmen JACQUELIN [facility] Urogynecolo 583 60003 [place] 09:50:00 09:50:00 t; ELIOT ROPER gy [facility] Son Candelario M.D. 2019-09-15 2019-09-15 Appointmen JACQUELIN [facility] [id number] 3 [place] 11:20:00 11:20:00 t; ELIOT ROPER Phys ici BRANDON, M.D. ans M.D. 2019-08-18 2019-08-18 Appointmen JACQUELIN, [facility] Urogynecolo 574 18142 [place] 15:40:00 15:40:00 t; ELIOT ROPER gy [facility] Son Candelario M.D. 2019-08-09 2019-08-09 [facility] [id number] 5 [place] 10:30:00 10:30:00 t; LUCAS MCKEON M.D. [facility] Kristi ZAVALA M.D. Results Test Description Test Time Test Comments Results Result Comments Source Sputum Culture 2022-09-29 05:33:34 Test Item Value Reference Range Interpretation Comme nts SPUTUM CULTURE (test code = 622-1) Specimen cellular elements do not represent lower respiratory tract. Specimen rejected for routine bacterial culture. Suggest reorder and recollection. Gram stain (test code = 664-3) Numerous Epithelial cells present [facility] 12 [id number] 04:17:29 Test Item Value Reference Range Interpretation Comments Ventricular rate (test code = 253) Atrial rate (test code = 255) MT interval (test code = 266) QRSD interval (test code = 260) QT interval (test code = 264) QTC interval (test code = 265) P axis 1 (test code = 267) QRS axis 1 (test code = 268) T wave axis (test code = 270) EKG impression (test Normal sinus code = 273) rhythm-Normal ECG-In automated comparison with ECG of 19-AUG-2022 23:05,-No significant change was found- [facility] [id number] 16:08:55 Test Item Value Reference Range Interpretation Comments Resting HR (test code = 7606043286) Resting BP (test code 111&56 = 3112224985) Peak MET Achieved (test code = 2926854265) Protocol Name (test Lexiscan code = 3133621825) Time in Exercise 00:01:00 Phase (test code = 6358686515) Max Systolic BP (test code = 3769822017) Max Diastolic BP (test code = 4440779421) Max Heart Rate (test code = 4445834055) Max Predicted Heart Rate (test code = 1225024730) Target HR Formula (220 - Age)*100% (test code = 1790483342) Test Indication (test chest pain code = 9120654372) Arrhy During Ex (test code = 2640975562) ECG Interp Before EX (test code = 7895609247) ECG Interp During Ex (test code = 2300410289) Ex Summary Comment (test code = 4917920727) Overall HR Response to Exercise (test code = 2751952598) Overall BP Response To Exercise (test code = 1787736359) Reason for Protocol Complete Termination (test code = 0141320097) Stress Test -Waveform interpreted in Impression (test code report associated with = 2086911630) image study. No interpretation is provided as part of this Stress ECG report.-Electronically Signed By Rasheeda Garcia MD ([id number]), editorial writer Belgica Pizano ([id number]) on 08/23/2022 11:08:53 AM-Also [facility] Worth[facility] [id number] 20:06:00 Test Item Value Reference Range Interpretation Comments Cholesterol, total 222 mg/dL See_Comment H [Automat ed (test code = 2093-3) message ] The system which generated this result transmitted reference range : <=200. The reference range was not used to interpret this result as normal/abnormal . HDL cholesterol 57 mg/dL See_Comment [Automated (test code = 2085-9) message ] The system which generated this result transmitted reference range : > OR = 50. The reference range was not used to interpret this result as normal/abnormal . Triglycerides (test 162 mg/dL See_Comment H [Automa holley code = 2571-8) message] The system which generated this result transmitted reference range : <=150. The reference range was not used to interpret this result as normal/abnormal . LDL cholesterol mg/dL (calc) H Reference ra nge: calculated (test <100 Desira ble code = 86520-4) range <100 m g/dL for primary prevention; <70 mg/dL for patients with C HD or diabetic patients with > or = 2 CHD risk factors. LDL-C is now calculated using the Krysten calculation, which is a validated novel method providin g better accuracy than the Friedewald equation in the estimation of LDL-C. Guilherme S S et al. KATHLEEN. 2013;310(19): 4065-0748 (http://educati on .[employer] .com/faq/BYC959 ) Cholesterol/HDL See_Comment [Automated ratio (test code = message] The 9830-1) system which generated this result transmitted reference range : <5.0 (calc). Th e reference range was not used to interpret this result as normal/abnormal . Non-HDL cholesterol See_Comment H For osvaldo ents with (test code = diabetes plus 1 17548-6) major ASCVD ris k factor, treatin g to a non-HDL-C goal of <100 mg/dL (LDL-C of <70 mg/dL) is considered a therapeutic option. [Automated message] The system which generated this result transmitted reference range : <130 mg/dL (calc). The reference range was not used to interpret this result as normal/abnormal . MIKAYLA (test code = FASTING:UNKNOWN MIKAYLA) FASTING: UNKNOWN RAC (test code = Performing RAC) Organization Information: Site ID: [facility] Name: [facility] Address: [address] [place] [id number] Director: Peter [facility] Interpretation Abnormal (test code = 30415-6) [facility] WorthTHamilton, [id number] 20:06:00 Test Item Value Reference Range Interpretation Comments T4, free (test code 1.1 ng/dL 0.8-1.8 = 3024-7) MIKAYLA (test code = FASTING:UNKNOWN FASTING: MIKAYLA) UNKNOWN RAC (test code = Performing Organization RAC) Information: Site ID: [facility] Name: [facility] Address: [address] [place] [address] Director: [facility] CenterThyroid stimulating [id number] 20:06:00 Test Item Value Reference Range Interpretation Comments TSH (test See_Comment [Automated mes luz] code = The system whic h 3016-3) generated this result transmit holley reference range : 0.40 - 4.50 mIU /L. The reference r lyudmila was not used to interpret this result as normal/abnormal . MIKAYLA (test FASTING:UNKNOWN code = MIKAYLA) FASTING: UNKNOWN RAC (test Performing code = RAC) Organization Information: Site ID: [facility] Name: [facility] Address: [address] [place] [address] Director: [facility] [id number] 20:06:00 Test Item Value Reference Range Interpretation Comments T3 (test code = 114 ng/dL 76-181 3053-6) MIKAYLA (test code = FASTING:UNKNOWN FASTING: MIKAYLA) UNKNOWN RAC (test code = Performing Organization RAC) Information: [facility] ID: [facility] Name: [facility] Address: [address] [place] [address] Director: [facility] CenterNT-[id number] 20:06:00 Test Item Value Reference Range Interpretation Comments NT-proBNP 35 pg/mL Female Risk: O ptimal (test code = < 372 pg/mL [place] [address]-2) = 372 pg/mL For Heart Failure (HF) diagnosis, referenceranges in patients with d yspnea are based onJan nelson SHAVER, Et al. J Am Nghia Cardiol.2018;71 :1191-1 200. 18-49 year s: <= 300 pg/mL Kaykay l, HF unlikely >= 450 pg/mL High probabilit y of HF50-75 years: <= 300 pg/mL Normal, H F unlikely >= 900 pg/mL High probabilit y of HF>75 years: <= 300 pg/mL Normal, H F unlikely >= 180 0 pg/mL High probabilit y of HF For patients wi th coronary heart disease, theopt imal risk category c ut points for inci dent HFor CVD (<253 pg/mL men, <372 pg/mL women) arebased on Rafita T, et al . J Am Nghia Cardiol.2007:50 :205-14 . For patients with existing HF, th e optimal riskcat egory cut point for H F progression (<3 00 pg/mL)is based on Shawn KB, et al. Clin Biochem.2010;43 :1405-1 0. For addition al information, pl ease refer tohttp://educat ion.[facility] stdiagnostics.c om/faq/ HSH745(This austyn k is being provided for informational/e ducatio nalpurposes onl y.) MIKAYLA (test FASTING:UNKNOWN code = MIKAYLA) FASTING: UNKNOWN RAC (test Performing code = RAC) Organization Information: Site ID: EZ Name: [facility], Address: [address] [place] [id number] Director: Sussy Love MD,PhD,GARRICK [facility] [id number] 06:01:00 Test Item Value Reference Range Interpretation Comments HEMOGLOBIN (test code = HGB) 10.8 g/dL 12-16 L HEMATOCRIT (test code = HCT) 32.3 % 37-47 L Hemoglobin and Hematocrit panel - [id number] 05:00:00 Test Item Value Reference Range Interpretation Comments hemoglobin (test code = hemoglobin) 10.8 g/dL 12-16 L hematocrit (test code = hematocrit) 32.3 % 37-47 L performing lab: (test code = performing lab:) [facility]- XR CHEST 1 [id number] 11:33:00 [facility] 1960 Sex: F Patient Name: YIN IBRAHIM Unit No: [id number] EXAMS: CPT CODE: [id number] XR CHEST 1 V 33264 PORTABLE CHEST July 04, 2022 6:48 AM COMMENT: COMPARISON: August 04, 2021 A right-sided Port-A-Cath is present with the tip atrium. There is no evidence for pneumothorax. at 1133 Reported and signed by: Robert Cornelius MD CC: Felix Bliss MD Technologist: CONOR DALTON (RT.R) Transcribed D/ (1136) t[facility]IARConradL [facility] NAME: YIN IBRAHIM [address] [facility] PHYS: Felix Das MD : 1960 AGE: 62 SEX: F [place] [address] LOC: Y.998 5 PHONE #: [phone] EXAM DATE: 07/04/2022 STATUS: ADM IN FAX #: [phone] RAD #: D/C DT PAGE 1 Signed Report Patient Name: YIN IBRAHIM Unit No: [id number] EXAMS: CPT CODE: [id number] XR CHEST 1 V 23778 (Continued) Orig Print D/T: S: 07/04/2022 (1135) [facility] NAME: YIN IBRAHIM [address] [facility] PHYS:Felix Das MD : 1960 AGE: 62 SEX: F [place], [place] [address] LOC: Y.998 5 PHONE #: [phone] EXAM DATE: 07/04/2022 STATUS: ADM IN FAX #: [phone] RAD #: D/C DT PAGE 2 Signed ReportCBC W/AUTO [id number] 12:43:00 Test Item Value Reference Range Interpretation Comments WHITE BLOOD CELL (test code = WBC) 5.3 K/mm3 5.8-11.0 L RED BLOOD CELL (test code = RBC) 4.21 M/mm3 4.2-5.4 N HEMOGLOBIN (test code = HGB) 12.7 g/dL 12-16 N HEMATOCRIT (test code = HCT) 37.7 % 37-47 N MEAN CELL VOLUME (test code = MCV) 90 fL 80-98 N MEAN CELL HGB (test code = MCH) 30.2 pg 27-34 N MEAN CELL HGB CONCENTRATION (test 33.7 g/dL 30.8-34.1 N code = MCHC) RED CELL DISTRIBUTION WIDTH (test 13.3 % 11-16 N code = RDW) PLT (test code = PLT) 196 K/mm3 130-400 N MEAN PLATELET VOLUME (test code = 8.8 fL 8.9-12.1 L MPV) NEUTROPHIL % (test code = NT%) 61.4 % 45-70 N LYMPHOCYTE % (test code = LY%) 30.1 % 20-40 N MONOCYTE % (test code = MO%) 5.1 % 3-10 N EOSINOPHIL % (test code = EO%) 1.3 % 1-5 N BASOPHIL % (test code = BA%) 0.8 % 0.0-1.1 N NEUTROPHIL # (test code = NT#) 3.27 K/mm3 2.00-7.50 N LYMPHOCYTE # (test code = LY#) 1.60 K/mm3 1.50-4.00 N MONOCYTE # (test code = MO#) 0.27 K/mm3 0.2-0.8 N EOSINOPHIL # (test code = EO#) 0.07 K/mm3 0.04-0.4 N BASOPHIL # (test code = BA#) 0.04 K/mm3 0.02-0.10 N MANUAL DIFF REQUIRED (test code = NO MANUAL DIFF MDIFF) NUCLEATED RED BLOOD CELL (test 0 % 0-0 N code = NRBC) PROTHROMBIN [id number] 12:43:00 Test Item Value Reference Range Interpretation Comments PROTHROMBIN TIME 10.6 secs 9.7-12.5 N Please note new normal PATIENT (test code = range. PTP) INTERNATIONAL NORMAL 0.96 <2.0 RECOMME NDED THERAPEUTIC RATIO (test code = RANGE FOR ORAL INR) ANTICOAGULANTTR EATMENT: CONDITION INRPr ophylaxis of venous throm bosis in 2.0 - 3.0 high- risk medical or surg ical patientsTreatme nt of venous thrombos is 2.0 - 3.0Prevention o f embolism 2.0 - 3.0Prevention o f recurrent embol ism, or 3.0 - 4.5 patie nts with mechanical pros thetic intravascular v dempsey IS PATIENT ON ANTICOAGULANTS ? NHas Lab been notified if Patient is on Heparin Drip? NOTHROMBOPLASTIN TIME [id number] 12:43:00 Test Item Value Reference Range Interpretation Comments PTT ACTIVATED (test 26.0 secs 26.6-34.6 L Please n ote new code = APTT) normal range. IS PATIENT ON ANTICOAGULANTS ? NHas Lab been notified if Patient is on Heparin Drip? NOBASIC METABOLIC [id number] 12:23:00 Test Item Value Reference Range Interpretation Comments SODIUM (test code = 137 mmol/L 136-145 N NA) POTASSIUM (test code = 4.2 mmol/L 3.5-5.1 N K) CHLORIDE (test code = 98.0 mmol/L 98-107 N CL) CARBON DIOXIDE (test 29.4 mmol/L 21-32 N code = CO2) GLUCOSE (test code = 109 mg/dL 70-110 N GLU) BLOOD UREA NITROGEN 12 mg/dL 7-18 N (test code = BUN) GLOMERULAR FILTRATION 54.5 >60 Unit o f measure: RATE (test code = GFR) mL/mi n/1.73 q5Krotjivwn Range:Healthy A dults >90 mL/min/1.73 m2 For Chronic Kid fior Disease: Stage II Mild Decrease i n GFR 60-90 Stage III Moderate Decrea se in GFR 30-59 Stage IV Severe Decrease in GFR 15-29 Stage V Kidney Failure <15 CREATININE (test code 1.03 mg/dL 0.55-1.30 N = CREAT) CALCIUM (test code = 9.1 mg/dL 8.2-10.1 N CA) CBC W Auto Differential panel - [id number] 12:00:00 Test Item Value Reference Range Interpretation Comments white blood cell (test code = 5.3 K/mm3 5.8-11.0 L white blood cell) red blood cell (test code = red 4.21 M/mm3 4.2-5.4 blood cell) hemoglobin (test code = 12.7 g/dL 12-16 hemoglobin) hematocrit (test code = 37.7 % 37-47 hematocrit) mean cell volume (test code = mean 90 fL 80-98 cell volume) mean cell HGB (test code = mean 30.2 pg 27-34 cell HGB) mean cell HGB concentration (test 33.7 g/dL 30.8-34.1 code = mean cell HGB concentration) red cell distribution width (test 13.3 % 11-16 code = red cell distribution width) plt (test code = plt) 196 K/mm3 130-400 mean platelet volume (test code = 8.8 fL 8.9-12.1 L mean platelet volume) neutrophil % (test code = 61.4 % 45-70 neutrophil %) lymphocyte % (test code = 30.1 % 20-40 lymphocyte %) monocyte % (test code = monocyte 5.1 % 3-10 %) eosinophil % (test code = 1.3 % 1-5 eosinophil %) basophil % (test code = basophil 0.8 % 0.0-1.1 %) neutrophil # (test code = 3.27 K/mm3 2.00-7.50 neutrophil #) lymphocyte # (test code = 1.60 K/mm3 1.50-4.00 lymphocyte #) monocyte # (test code = monocyte 0.27 K/mm3 0.2-0.8 #) eosinophil # (test code = 0.07 K/mm3 0.04-0.4 eosinophil #) basophil # (test code = basophil 0.04 K/mm3 0.02-0.10 #) manual diff required (test code = no manual diff manual diff required) nucleated red blood cell (test 0 % 0-0 code = nucleated red blood cell) performing lab: (test code = performing lab:) [facility] MedicineProthrombin time (PT)2022-06-04 12:00:00 Test Item Value Reference Range Interpretation Comments prothrombin time patient (test code 10.6 secs 9.7-12.5 = prothrombin time patient) international normal ratio (test 0.96 <2.0 code = international normal ratio) performing lab: (test code = performing lab:) [facility] [id number] 12:00:00 Test Item Value Reference Range Interpretation Comments PTT activated (test code = PTT 26.0 secs 26.6-34.6 L activated) performing lab: (test code = performing lab:) [facility] Centerbasic metabolic [id number] 11:05:00 Test Item Value Reference Range Interpretation Comments sodium (test code = sodium) 137 mmol/L 136-145 potassium (test code = potassium) 4.2 mmol/L 3.5-5.1 chloride (test code = chloride) 98.0 mmol/L 98-107 carbon dioxide (test code = 29.4 mmol/L 21-32 carbon dioxide) glucose (test code = glucose) 109 mg/dL 70-110 blood urea nitrogen (test code = 12 mg/dL 7-18 blood urea nitrogen) glomerular filtration rate (test 54.5 >60 code = glomerular filtration rate) creatinine (test code = 1.03 mg/dL 0.55-1.30 creatinine) calcium (test code = calcium) 9.1 mg/dL 8.2-10.1 performing lab: (test code = performing lab:) [facility] CenterMethicillin resistant Staphylococcus aureus [Presence] in Specimen by Organism specific [id number] 11:05:00 Test Item Value Reference Range Interpretation Comments MRSA surveillance screen (test code see below = MRSA surveillance screen) performing lab: (test code = performing lab:) [facility] Centermssa PCR surveillance [id number] 11:05:00 Test Item Value Reference Range Interpretation Comments mssa PCR surveillance screen (test see below code = mssa PCR surveillance screen) performing lab: (test code = performing lab:) [facility] CenterISTAT BLOOD [id number] 15:04:00 Test Item Value Reference Range Interpretation Comments POC PH ARTERIAL TEST NOT 7.35-7.45 N See CRITICAL (test code = PHAP) PERFORMED RESULTS F orm for documentation.P rev iously reported result: 7.369 Edited by: Yordan on 02/21/22:850762 / 1504: PHAP previously reported as: 7. 369 See CRITICAL RESULTS Form fo r documentation. POC PCO2 ARTERIAL TEST NOT 35-45 N Previously (test code = PERFORMED mmHg reported resu lt: PCO2AP) 42.9 mmHgEdited by: BarbraAEG o n 02/21/22:984505 1504: PCO2A P previously reported as: 42 .9 mmHg POC-TCO2 ARTERIAL TEST NOT 23-27 N Previously (test code = PERFORMED mmol/L reported re sult: TCO2AP) 26 mmol/LEdited by: BarbraAEG o n 02/21/22:497104 1504: TCO2A P previously reported as: 26 mmol/L POC-PO2 ARTERIAL TEST NOT 80-105 LL Previously (test code = PO2AP) PERFORMED mmHg report ed result: 38 mmHgEdited b y: BarbraAEG on 02/21/22:451753 1504: PO2AP previously reported as: 38 *L mmHg POC-HCO3 ARTERIAL TEST NOT 22-26 N Previously (test code = PERFORMED mmol/L reported re sult: HCO3AP) 24.7 mmol/LEdit ed by: BarbraAEG o n 02/21/22:332847 1504: HCO3A P previously reported as: 24 .7 mmol/L POC-BASE EXCESS TEST NOT -2-3 N Previously ARTERIAL (test code PERFORMED mmol/L repo rted result: = BEAP) -1 mmol/LEdited by: BarbraAEG o n 02/21/22:645516 1504: BEAP previously reported as: -1 mmol/L POC-SO2 ARTERIAL TEST NOT 95-98 L Previously (test code = SO2AP) PERFORMED % reported result: 70 %Edited by: BarbraAEG on 02/21/22:586263 1504: SO2AP previously reported as: 70 L % POC HEMOGLOBIN 6.5 g/dL 12-16 LL See CRITICAL (test code = HBP) RESULTS Fo rm for documentation. POC HEMATOCRIT 19 % 38-51 LL See CRITICAL (test code = HCTP) RESULTS F orm for documentation. SODIUM POC (test 140 mmol/L 138-146 N code = NAP) POTASSIUM POC (test 5.5 mmol/L 3.5-4.9 H code = KP) GLUCOSE POC (test 178 mg/dL 70-105 H code = GLUP) CALCIUM IONIZED 1.14 mmol/L 1.12-1.32 N (test code = SARITHA) - XR FLUORO [id number] 12:48:00 [facility] 1960 Sex: F Patient Name: YIN IBRAHIM Unit No: [id number] EXAMS: CPT CODE: [id number] XR FLUORO NDL [address]174 Fluoroscopicallyguided right hip aspiration FINDINGS: After informed consent was obtained a 22-gauge needle is inserted into the right hip under fluoroscopic guidance using sterile technique. 1.5 mL of thin red fluid was aspirated. This is sent to the lab for analysis. The patient tolerated the procedure well. 40 seconds of fluoroscopy time was used on this exam. IMPRESSION: Fluoroscopically guided right hip aspiration. at 1248 Reported and signed by: Jeremy Kruse M.D. CC: Baldemar Epperson II, MD Technologist: RT. Anthony(R) Transcribed D/ (1248) [facility] NAME: YIN IBRAHIM [address] [facility] [address] PHYS: Baldemar Britt II, MD : 1960 AGE: 61 SEX: F [place] [address] LOC: Y.RAD PHONE #: [phone] EXAM DATE: 11/20/2021 STATUS: DEP CLI FAX #: [phone] RAD #: D/C DT PAGE 1 Signed Report Patient Name: YIN IBRAHIM Unit No: [id number] EXAMS: CPT CODE: [id number] XR FLUORO NDL 96445 (Continued) Orig Print D/T: S: 11/21/2021 (1251) [facility] NAME: YIN IBRAHIM [address] [facility] PHYS: Baldemar Britt Abbie CHAPA MD : 1960 AGE: 61 SEX: F [place], [place] [address] LOC: Y.RAD PHONE #: [phone] EXAM DATE: 11/20/2021 STATUS: DEP CLI FAX #: [phone] RAD #: D/C DT PAGE 2 Signed Report- CT LOWER EXTRM W/O C [id number] 05:19:00 [facility] : 1960 Sex: F Patient Name: YIN IBRAHIM Unit No: [id number] EXAMS: CPT CODE: [id number] CT LOWER EXTRM W/[place] [address] TECHNIQUE: Volumetric CT data of the right femur was obtained without use of intravenous contrast. Images were then viewed in the axial, coronal and sagittal planes. CT radiation dose optimization is achievedfor this examination by the use of a CT protocol in accordance with ACR practice standards and adhere nce to quality assistant's recommendations. INDICATION: ASSESS HEALING COMPARISON: CT dated 06/22/2021 FINDINGS: Right total hip arthroplasty is demonstrated as well as plate and screw fixation of the lateral aspect of the femoral shaft. Hardware appears intact. An obliquely oriented fracture of the mid femoral shaft is present with incomplete healing. The mid to lateral aspect of the fracture demonstratespersistent lucency. The medial component of the fracture is less well demonstrated and possibly partially healed. Callus formation is seen about the proximal femoral shaft. No other fracture is identified. IMPRESSION: Incomplete healing of the right mid femoral shaft fracture. Electronically Signedby Son Kruse on 11/21/2021 at 0519 Reported and signed by: Jeremy Kruse M.D.CC: Baldemar Epperson II, MD Technologist: Robert Samuel(R) CTDI: DLP: Trnscrpt: 11/21/2021 (05) [facility] NAME: YIN IBRAHIM [address] [place] [address] PHYS: Cristina Britt II, MD : 1960 AGE: 61 SEX: F [place] [address] LOC: Y.RAD PHONE #: [phone] EXAM DATE: 11/20/2021 STATUS: DEP CLI FAX #: [phone] RAD #: D/C DT PAGE 1 Signed Report Patient Name: YIN IBRAHIM Unit No: [id number] EXAMS: CPT CODE: [id number] CT LOWER EXTRM W/[place] [address] (Continued) Orig Print D/T: S: 11/21/2021 (05) [facility] NAME: YIN IBRAHIM [address] [place] [address] PHYS: Baldemar Britt II, MD : 1960 AGE: 61 SEX: F [place] [address] LOC: Y.RAD PHONE #: [phone] EXAM DATE: 11/20/2021 STATUS: DEP CLI FAX #: [phone] RAD #: D/C DT PAGE [address] F[address] CE[address]/DIFF 2021-11-20 21:41:00 Test Item Value Reference Range Interpretation Comments SYNOVIAL FLD BLOODY LT. YELLOW A COLOR (test code = COLSY) SYNOVIAL FLD CLOUDY CLEAR A APPEARANCE (test code = APPSY) SYNOVIAL FLD < 0.5 mL VOLUME (test code = VOLSY) SYNOVIAL FLD WBC 188.000 /MM3 0-200 N (test code = WBCSY) SYNOVIAL FLD RBC 476842.000 0-2 H NOTE: An au tomated (test code = /mm3 method is now b eing used RBCSY) to determinesyn ovial fluid WBC and R BC counts. The dif ferential willstill be pe rformed manually. SYNOVIAL FLD POLY 58 % 0-25 H (test code = POLYSY) SYNOVIAL FLD 31 % 0-78 N LYMPHOCYTE (test code = LYMPHSY) SYNOVIAL FLD 9 % 0-71 N MONOCYTE (test code = MONOSY) SYNOVIAL FLD 2 % 0-3 N MACROPHAGE (test code = MACSY) SPECIMEN COMMENT: ASPIRATION RT HIP DONE BY DR KRUSE, SAVE ASP FOR 2 WKSAFB [id number] 06:13:25 Test Item Value Reference Range Interpretation Comments AFB culture No growth Specimen isolate (test after 6 weeks InformationSp ecimen code = 543-9) of Source: Tissue Specimen incubation. Site: Hip: [facility] t hip deep tissue #4 [facility] [id number] 06:13:25 Test Item Value Reference Range Interpretation Comments AFB culture No growth Specimen isolate (test after 6 weeks InformationSp ecimen code = 543-9) of Source: Tissue Specimen incubation. Site: Hip: Rig t hip deep tissue #4 [facility] [id number] 05:15:15 Test Item Value Reference Range Interpretation Comments Fungus culture No growth Specimen isolate (test after 4 weeks InformationSp ecimen code = 1441) of Source: TissueS pecimen incubation. Site: Hip: Righ t hip deep tissue #4 [facility] [id number] 05:15:15 Test Item Value Reference Range Interpretation Comments Fungus culture No growth Specimen isolate (test after 4 weeks InformationSp ecimen code = 1441) of Source: TissueS pecimen incubation. Site: Hip: Righ t hip deep tissue #[address] [facility] [id number] 13:21:21 Test Item Value Reference Range Interpretation Comments Anaerobic No anaerobic Specimen culture isolate organisms InformationS pecimen (test code = isolated. Source: TissueS pecimen 552) Site: Hip: Righ t hip deep tissue #[address] [facility] [id number] 13:21:21 Test Item Value Reference Range Interpretation Comments Anaerobic No anaerobic Specimen culture isolate organisms InformationS pecimen (test code = isolated. Source: TissueS pecimen 552) Site: Hip: Righ t hip deep tissue #4 [facility] [id number] 02:09:34 Test Item Value Reference Range Interpretation Comments AFB stain No acid fast Specimen (test code = bacilli (AFB) InformationSpe cimen 676-7) seen. Source: TissueS pecimen Site: Hip: Righ t hip deep tissue #4 [facility] [id number] 02:09:34 Test Item Value Reference Range Interpretation Comments Tissue culture No growth Specimen isolate (test after 3 days. InformationSp ecimen code = 86880-6) Source: Tiss ueSpecimen Site: Hip: Righ t hip deep tissue #4 [facility] [id number] 02:09:34 Test Item Value Reference Range Interpretation Comments Fungus smear No fungi Specimen (test code = observed. InformationSpec imen Source: 1443) TissueSpecimen Site: Hip: Right hip deep tissue #4 [facility] [id number] 02:09:34 Test Item Value Reference Range Interpretation Comments AFB stain No acid fast Specimen (test code = bacilli (AFB) InformationSpe cimen 676-7) seen. Source: TissueS pecimen Site: Hip: Righ t hip deep tissue #4 [facility] [id number] 02:09:34 Test Item Value Reference Range Interpretation Comments Tissue culture No growth Specimen isolate (test after 3 days. InformationSp ecimen code = 11117-5) Source: Tiss ueSpecimen Site: Hip: Righ t hip deep tissue #4 [facility] [id number] 02:09:34 Test Item Value Reference Range Interpretation Comments Fungus smear No fungi Specimen (test code = observed. InformationSpec imen Source: 1443) TissueSpecimen Site: Hip: Right hip deep tissue #4 [facility] WorthGram [id number] 02:09:34Gram stain isolateRare WBC'sNo organisms seen Comment: Specimen InformationSpecimen Source: TissueSpecimen Site: Hip: Right hip deep tissue #4 [facility] Gram [id number] 02:09:34Gram stain isolateRare WBC'sNo organisms seen Comment: Specimen InformationSpecimen Source: TissueSpecimen Site: Hip: Right hip deep tissue #4 [facility] [id number] 01:45:48 Test Item Value Reference Range Interpretation Comments Case number (test code = [id number]) Surgical pathology See link below for report (test code = PDF Lab Report 2255) Result status (test code This is Final Report = [id number]) [id number] [facility] [id number] 01:45:48 Test Item Value Reference Range Interpretation Comments Case number (test code = [id number]) Surgical pathology See link below for report (test code = PDF Lab Report 2255) Result status (test code This is Final Report = [id number]) for [id number] [facility] WorthPrepare RBC, 2 [id number] 20:45:00 Test Item Value Reference Range Interpretation Comments Product name (test code Apheresis -1 LR #2 = 25) Unit number (test code = [id number]) Product code (test code C2739O54 = 3092) Dispense status (test Returned to BB not code = 24) transfused Blood expiration date (test code = 302) Blood type code (test code = 308) Blood type (test code = O POSITIVE 1314) Compatibility (test code Compatible = 6400) [facility] RBC, 2 [id number] 20:45:00 Test Item Value Reference Range Interpretation Comments Product name (test code Apheresis -1 LR #2 = 25) Unit number (test code = [id number]) Product code (test code I0042J52 = 3092) Dispense status (test Returned to BB not code = 24) transfused Blood expiration date (test code = 302) Blood type code (test code = 308) Blood type (test code = O POSITIVE 1314) Compatibility (test code Compatible = 6400) [facility] [id number] 19:11:33 Test Item Value Reference Range Interpretation Comments POC glucose (test code 226 mg/dL 65-99 H Opera tor Name: = 37207-6) Ryan Escobar I D: [id number] able: No Action Neede d Lab Interpretation Abnormal (test code = 47194-7) [facility] [id number] 19:11:33 Test Item Value Reference Range Interpretation Comments POC glucose (test code 226 mg/dL 65-99 H Opera tor Name: = 58138-6) Ryan Escobar I D: [id number] able: No Action Neede d Lab Interpretation Abnormal (test code = 65001-8) [facility] WorthArterial blood gas, [id number] 15:16:19 Test Item Value Reference Range Interpretation Comments pH, arterial (test code 7.35-7.45 L = 2744-1) pCO2, arterial (test See_Comment H [Autom ated message] code = 2019-) The system [employer] generated this result transmitted ref erence range: 35 - 45 mmHg. The reference r lyudmila was not used to interpret this result as normal/abnor mal. pO2, arterial (test code See_Comment H [A utomated message] = 2703-7) The system [employer] generated this result transmitted ref erence range: 80 - 90 mmHg. The reference r lyudmila was not used to interpret this result as normal/abnor mal. Temperature, Celsius Degrees C (test code = 8310-5) O2 saturation, arterial 99 % 95-100 (test code = 2708-6) pH, arterial corrected (test code = 71489-8) pCO2, arterial corrected mmHg (test code = 40318-3) pO2, arterial corrected mmHg (test code = 43876-4) Base excess, arterial See_Comment L [Auto mated message] (test code = 1925-7) The s tem which generated this result transmitted ref erence range: -2 - 2 m Eq/L. The reference r lyudmila was not used to interpret this result as normal/abnor mal. Lab Interpretation (test Abnormal code = 38944-2) [facility] WorthGlucose level, [id number] 15:16:19 Test Item Value Reference Range Interpretation Comments Glucose, syringe (test code = 284 mg/dL 65-99 H 2345-7) Lab Interpretation (test code = Abnormal 33095-7) [facility] WorthHemoglobin, [id number] 15:16:19 Test Item Value Reference Range Interpretation Comments Hemoglobin, syringe (test code = 9.9 g/dL 12.0-16.0 L 718-7) Lab Interpretation (test code = Abnormal 70375-9) [facility]on[facility] calcium, [id number] 15:16:19 Test Item Value Reference Range Interpretation Comments Ionized calcium, arterial (test 1.19 mmol/L 1.11-1.32 code = 00022-5) [facility] [id number] 15:16:19 Test Item Value Reference Range Interpretation Comments Potassium, syringe See_Comment [Automat ed message] The (test code = 2007) system [facility] generated this result tra nsmitted reference range : 3.5 - 5.0 mEq/L. The refe rence range was not used to interpret this result as normal/abnormal . [facility], [id number] 15:16:19 Test Item Value Reference Range Interpretation Comments Sodium, syringe (test See_Comment L [Auto mated message] code = 2947-0) The system [facility] generated this result transmitted ref erence range: 135 - 14 8 mEq/L. The refe rence range was not u sed to interpret this result as normal/abnor mal. Lab Interpretation (test Abnormal code = 52837-6) [facility] Worth[facility]ter[facility] blood gas, [id number] 15:16:19 Test Item Value Reference Range Interpretation Comments pH, arterial (test code 7.35-7.45 L = 2744-1) pCO2, arterial (test See_Comment H [Autom ated message] code = 2019-8) The system [facility] generated this result transmitted ref erence range: 35 - 45 mmHg. The reference r lyudmila was not used to interpret this result as normal/abnor mal. pO2, arterial (test code See_Comment H [A utomated message] = 4893-7) The system [facility] generated this result transmitted ref erence range: 80 - 90 mmHg. The reference r lyudmila was not used to interpret this result as normal/abnor mal. Temperature, Celsius Degrees C (test code = 8310-5) O2 saturation, arterial 99 % 95-100 (test code = 2708-6) pH, arterial corrected (test code = 36364-8) pCO2, arterial corrected mmHg (test code = 58995-0) pO2, arterial corrected mmHg (test code = 69390-7) Base excess, arterial See_Comment L [Auto mated message] (test code = 1925-7) The [facility] tem which generated this result transmitted ref erence range: -2 - 2 m Eq/L. The reference r lyudmila was not used to interpret this result as normal/abnor mal. Lab Interpretation (test Abnormal code = 52646-1) [facility] Worth[facility] level, [id number] 15:16:19 Test Item Value Reference Range Interpretation Comments Glucose, syringe (test code = 284 mg/dL 65-99 H 2345-7) Lab Interpretation (test code = Abnormal 62900-3) [facility]em[facility], [id number] 15:16:19 Test Item Value Reference Range Interpretation Comments Hemoglobin, syringe (test code = 9.9 g/dL 12.0-16.0 L 718-7) Lab Interpretation (test code = Abnormal 04056-5) [facility] WorthIon[facility] calcium, [id number] 15:16:19 Test Item Value Reference Range Interpretation Comments Ionized calcium, arterial (test 1.19 mmol/L 1.11-1.32 code = 30282-6) [facility] Worth[facility]assium, [id number] 15:16:19 Test Item Value Reference Range Interpretation Comments Potassium, syringe See_Comment [Automat ed message] The (test code = 2007) system [facility] generated this result tra nsmitted reference range : 3.5 - 5.0 mEq/L. The refe rence range was not used to interpret this result as normal/abnormal . [facility], [id number] 15:16:19 Test Item Value Reference Range Interpretation Comments Sodium, syringe (test See_Comment L [Auto mated message] code = 2947-0) The system [facility] generated this result transmitted ref erence range: 135 - 14 8 mEq/L. The refe rence range was not u sed to interpret this result as normal/abnor mal. Lab Interpretation (test Abnormal code = 70452-1) [facility] WorthType and [id number] 00:29:00 Test Item Value Reference Range Interpretation Comments ABO grouping (test code = 883-9) O Rh type (test code = 45041-0) POS Antibody screen (gel) (test code = NEG 890-4) [facility] WorthType and [id number] 00:29:00 Test Item Value Reference Range Interpretation Comments ABO grouping (test code = 883-9) O Rh type (test code = 02291-0) POS Antibody screen (gel) (test code = NEG 890-4) [place] [address] htoz9098-35-17 21:11:17 Test Item Value Reference Range Interpretation Comments Ventricular rate (test code = 253) Atrial rate (test code = 255) MT interval (test code = 266) QRSD interval [...] of 08-AUG-2021 08:40,-No significant change was found- [address]2021-09-30 21:11:17 Test Item Value Reference Range Interpretation Comments Ventricular rate (test code = 253) Atrial rate (test code = 255) MT interval (test code = 266) QRSD interval [...] of 08-AUG-2021 08:40,-No significant change was found- [facility] ([facility]OVID-19) RNA [Presence] in Respiratory specimen by [facility] with probe [id number] 17:59:27 Test Item Value Reference Range Interpretation Comments SARS-CoV-2 (COVID-19) RNA Not detected Not-Detected [Presence] in Respiratory specimen by [facility] with probe detection (test code = 34462-2) Whether patient is employed in a healthcare setting (test code = 83231-8) Whether the patient has symptoms related to condition of interest (test code = 40168-4) Patient was hospitalized because of this condition (test code = 82811-4) Whether the patient was admitted to intensive care unit (ICU) for condition of interest (test code = 63678-4) Whether patient resides in a congregate care setting (test code = 46890-0) [facility] METABOLIC [id number] 16:13:00 Test Item Value Reference Range Interpretation [...] RATE (test code = GFR) mL/mi n/1.73 y4Ilwlokzpi Range:Healthy Adults >90 mL/min/1.73 m2 For Chronic Kidney Disease: Stage II Mild Decrease i n GFR 60-90 Stage III Moderate Decrea se in GFR 30-59 St age IV Severe Decre ase in GFR 15-29 S tage V Kidney Failur e <15Unit of norma ure: mL/min/1.73 a0Svyylwtrg Range:Healthy Adults >90 mL/min/1.73 m2 For Chronic Kidney Disease: Stage II Mild Decrease i n GFR 60-90 Stage III Moderate Decrea se in GFR 30-59 St age IV Severe Decre ase in GFR 15-29 St age V Kidney Failur e <15 CREATININE (test code = 1.6 mg/dL [...] H TOTAL (test code = ALKP) PROTHROMBIN [id number] 16:12:00 Test Item Value Reference Range Interpretation Comments PROTHROMBIN TIME 14.1 secs 10.1-12.5 PATIENT (test code = PTP) INTERNATIONAL NORMAL 1.27 See_Comment The INR is to be used RATIO (test code = only for monitoring INR) oral anticoagulantth erapy. INDICATION INR VALUE 1. Prophylaxis including high risk surgery 2.0 - 2 .52. Deep venous thrombosis. Pul monary embolism. Atria l fibrillation or bioprosthetic h eart valves 2.0 - 3. 03. Mechanical hear t valves or recur rent systemic emboli sm. 3.0 - 3.5DUPLICATE [Automated mess age] The system [employer] generated this result transmitted ref erence range: (). The reference range was not used to int erpret this result as normal/abnormal . IS PATIENT ON ANTICOAGULANTS ? [facility] been notified if Patient is on Heparin Drip? YESAdd'l Lab Tests to be ordered if Y. NPROTHROMBIN [id number] 16:12:00 Test Item Value Reference Interpretation Comments Range PROTHROMBIN TIME PATIENT (test code = PTP) INTERNATIONAL TEST NOT DUPLICATEPrevi ously NORMAL RATIO (test PERFORMED reported result: 1.27 code = INR) Edited by: SYDNI OLVERA on 08/04/21:2232IN R prev. reported as:1.2 7 . . IS PATIENT ON ANTICOAGULANTS ? [facility] been notified if Patient is on Heparin Drip? YESAdd'l Lab Tests to be ordered if Y. [id number] 16:12:00 Test Item Value Reference Range Interpretation Comments SODIUM (test code = NA) 144 mEq/L 135-145 N [id number] 16:12:00 Test Item Value Reference Range Interpretation Comments POTASSIUM (test code = K) 4.6 mEq/L 3.5-5.0 N [id number] 16:12:00 Test Item Value Reference Range Interpretation Comments CHLORIDE (test code = CL) 106 mEq/L 100-115 N CARBON [id number] 16:12:00 Test Item Value Reference Range Interpretation Comments CARBON DIOXIDE (test code = CO2) 29 mEq/L 22-31 N BLOOD UREA [id number] 16:12:00 Test Item Value Reference Range Interpretation Comments BLOOD UREA NITROGEN (test code = 21 mg/dL 7-18 H BUN) GLOMERULAR FILTRATION [id number] 16:12:00 Test Item Value Reference Range Interpretation Comments GLOMERULAR FILTRATION RATE (test 33 ml/min >60 L code = GFR) [id number] 16:12:00 Test Item Value Reference Range Interpretation Comments CREATININE (test code = CREAT) 1.6 mg/dL 0.5-1.0 H TOTAL [id number] 16:12:00 Test Item Value Reference Range Interpretation Comments TOTAL PROTEIN (test code = PROT) 5.5 gm/dL 6.3-8.2 L [id number] 16:12:00 Test Item Value Reference Range Interpretation Comments ALBUMIN (test code = ALB) 2.9 gm/dL 3.4-4.8 L [id number] 16:12:00 Test Item Value Reference Range Interpretation Comments CALCIUM (test code = CA) 8.1 mg/dL 8.4-10.2 L [id number] 16:12:00 Test Item Value Reference Range Interpretation Comments SGOT/AST (test code = AST) 35 units/L 15-37 N [id number] 16:12:00 Test Item Value Reference Range Interpretation Comments SGPT/ALT (test code = ALT) 21 units/L 12-78 N ALKALINE PHOSPHATASE [id number] 16:12:00 Test Item Value Reference Range Interpretation Comments ALKALINE PHOSPHATASE TOTAL (test 143 units/L 46-116 H code = ALKP) ALBUMIN/GLOBULIN [id number] 16:12:00 Test Item Value Reference Range Interpretation Comments ALBUMIN/GLOBULIN RATIO TEST NOT PERFORMED (test code = A/G) THROMBOPLASTIN TIME [id number] 10:19:00 Test Item Value Reference Range Interpretation Comments PTT ACTIVATED (test code = APTT) 39.1 secs 24.9-37.0 IS PATIENT ON ANTICOAGULANTS ? [facility] been notified if Patient is on Heparin Drip? YESAdd'l Lab Tests to be ordered if Y. NTHYROID STIMULATING HORMONE 2021-08-06 07:22:00 Test Item Value Reference Range Interpretation Comments THYROID STIMULATING 2.69 0.36-3.74 Test Per formed in HORMONE (test code = MicroIn ternational Units/mL TSH) THYROID STIMULATING [id number] 07:21:00 Test Item Value Reference Range Interpretation Comments THYROID STIMULATING 2.69 0.36-3.74 N Test Per formed in HORMONE (test code = MicroIn ternational Units/mL TSH) B-TYPE NATRIURETIC [id number] 07:18:00 Test Item Value Reference Range Interpretation Comments B-TYPE NATRIURETIC PEPTIDE (test 344.28 pg/mL 0-100 H code = BNP) B-TYPE NATRIURETIC [id number] 07:18:00 Test Item Value Reference Range Interpretation [...] 837 Units/L 26-192 H CK) BASIC METABOLIC [id number] 06:56:00 Test Item Value Reference Range Interpretation [...] RATE (test code = GFR) mL/mi n/1.73 j3Orkrbpuib Range:Healthy Adults >90 mL/min/1.73 m2 For Chronic Kidney Disease: Stage II Mild Decrease i n GFR 60-90 Stage III Moderate Decrea se in GFR 30-59 St age IV Severe Decre ase in GFR 15-29 St age V Kidney Failur e <15 CREATININE (test code 1.13 mg/dL 0.55-1.30 N = CREAT) CALCIUM (test code = 8.0 mg/dL 8.2-10.1 L CA) CBC W/AUTO [id number] 06:31:00 Test Item Value Reference Range Interpretation [...] % 0-0 N code = NRBC) HGB [id number] 23:44:00 Test Item Value Reference Range Interpretation Comments HEMOGLOBIN (test code = 6.5 g/dL 10.1-13.8 LL RESU LTS CALLED TO HGB) SRAVANIZULEIMA NARAYANAN AD BACK & CONFIRMED? [facility] 08/04 2342Results jaylen ified by repeat maryjane sis HEMATOCRIT (test code = 21.2 % 32.5-41.8 L HCT) HGB [id number] 23:43:00 Test Item Value Reference Range Interpretation Comments HEMOGLOBIN (test code = 6.5 g/dL 10.1-13.8 LL RESU LTS CALLED TO HGB) SRAVANI NARAYANAN AD BACK & CONFIRMED? ELIZABETH BOATENG [facility] 08/04 2342Results jaylen ified by repeat maryjane sis HEMATOCRIT (test code = 21.2 % 32.5-41.8 L HCT) [id number] 23:24:00 Test Item Value Reference Range Interpretation Comments GLUCOSE (test code = GLU) BILIRUBIN [id number] 23:24:00 Test Item Value Reference Range Interpretation Comments BILIRUBIN TOTAL (test code = BILT) mg/dL 0.2-1.0 COVID 19 Asymptomatic IH [id number] 23:06:00 Test Item Value Reference Range Interpretation Comments COVID 19 Asymptomatic IH AG (test NEGATIVE NEGATIVE code = COVNONPUIAG) THROMBOPLASTIN TIME [id number] 22:32:00 Test Item Value Reference Range Interpretation Comments THROMBOPLASTIN TIME PARTIAL (test code = PTT) IS PATIENT ON ANTICOAGULANTS ? [facility] been notified if Patient is on Heparin Drip? YESAdd'l Lab Tests to be ordered if Y. NPROTHROMBIN [id number] 22:31:00 Test Item Value Reference Range Interpretation Comments PROTHROMBIN TIME 14.1 secs 10.1-12.3 H PATIENT (test code = PTP) INTERNATIONAL NORMAL 1.27 The INR is to be used RATIO (test code = only for monitoring INR) oral anticoagulantth erapy. INDICATION INR VALUE 1. Prophylaxis including high risk surgery 2.0 - 2 .52. Deep venous thrombosis. Pul monary embolism. Atria l fibrillation or bioprosthetic h eart valves 2.0 - 3. 03. Mechanical hear t valves or recur rent systemic emboli sm. 3.0 - 3.5 THROMBOPLASTIN TIME [id number] 22:31:00 Test Item Value Reference Range Interpretation Comments THROMBOPLASTIN TIME PARTIAL (test 39.1 secs 22-38 H code = PTT) CBC W/AUTO [id number] 22:27:00 Test Item Value Reference Range Interpretation Comments WHITE BLOOD CELL 4.6 K/mm3 6.5-12.3 L DONE AT: [facility] (test code = WBC) [facility] [address] [place], [place] [address] RED BLOOD CELL (test 2.32 M/mm3 3.51-4.69 L code = RBC) HEMOGLOBIN (test code 6.5 g/dL 10.1-13.8 LL RESULT S VERIFIED BY = HGB) REPEAT ANALYSIS RESULTS CALLED TO YOUSIF MCGHEE/[facility] EREAD BACK & CONF IRMED? YBY F.LAB.RV 9428 HEMATOCRIT (test code 21.3 % 32.5-41.8 L [...] ed message] code = NT#) The system [employer] generated this result transmitted ref erence range: (). The reference range was not used to int erpret this result as normal/abnormal . LYMPHOCYTE # (test 0.9 K/mm3 See_Comment [Automat ed message] code = LY#) The system [employer] generated this result transmitted ref erence range: (). The reference range was not used to int erpret this result as normal/abnormal . MONOCYTE # (test code 0.3 K/mm3 See_Comment [Auto mated message] = MO#) The system [employer] generated this result transmitted ref erence range: (). The reference range was not used to int erpret this result as normal/abnormal . EOSINOPHIL # (test 0.04 K/mm3 See_Comment [Automat ed message] code = EO#) The system [employer] generated this result transmitted ref erence range: (). The reference range was not used to int erpret this result as normal/abnormal . BASOPHIL # (test code 0 K/mm3 See_Comment [Auto mated message] = BA#) The system [employer] generated this result transmitted ref erence range: (). The reference range was not used to int erpret this result as normal/abnormal . PLATELET MORPHOLOGY NORMAL NORMAL REQUIRED (test code = PLTMR) CBC W/AUTO [id number] 22:26:00 Test Item Value Reference Range Interpretation Comments WHITE BLOOD CELL 4.6 K/mm3 6.5-12.3 L (test code = WBC) RED BLOOD CELL (test 2.32 M/mm3 3.51-4.69 L code = RBC) HEMOGLOBIN (test 6.5 g/dL 10.1-13.8 LL RESULTS JAYLEN IFIED BY code = HGB) REPEAT ANALYSIS RESULTS CALLED TO YOUSIF MCGHEE/MEENA OR JOSHUA NURSEREAD BACK & CONFIRMED? MAXINE DiazLAB.RV 08/04/21 6996 HEMATOCRIT (test 21.3 % 32.5-41.8 L code [...] code = PLTMR) - XR CHEST 1 [id number] 17:44:00 [facility] 1960 Sex: F Patient Name: YIN IBRAHIM Unit No: [id number] EXAMS: CPT CODE: [id number] XR CHEST 1 V 56310 IMAGES PROVIDED:One frontal view of the chest is provided. COMPARISON: 07/10/2021 FINDINGS: Left PICC line is in place with tip overlying the lower SVC. Right IJ catheter remains in place. Bilateral airspace opacities are increased, suggestive of pulmonary edema. The cardiac silhouette is enlarged. Pulmonary vasculature is mostly obscured IMPRESSION: 1. Probable pulmonary edema. Pneumonia is not excluded. 2. Left PICC line as above. at 1744 Reported and signed by: Jeremy Kruse M.D. CC: Yahir Hendrix MD Technologist: RIVER HARTMANN, RT(R) Transcribed D/ (7175) [facility] NAME: YIN IBRAHIM [address] [place] [address] PHYS: LASHONDAZAKBhavna Randall Yahir Hendrix : 1960 AGE: 61 SEX: F [place] [address] LOC: Y.516 A PHONE #: [phone] EXAM DATE: 08/04/2021 STATUS: ADM IN FAX #: [phone] RAD #: D/C DT PAGE 1 Signed Report Patient Name: YIN IBRAHIM Unit No: [id number] EXAMS: CPT CODE: [id number] XR CHEST 1 V 42018 (Continued) Orig Print D/T: S: 08/04/2021 (7612) [facility] NAME: YIN IBRAHIM [address] [place] [address] PHYS: ALBERTOBhavna - Yahir Hendrix Crystal : 1960 AGE: 61 SEX: F [place] [address] LOC: Y.516 A PHONE #: [phone] EXAM DATE: 08/04/2021 STATUS: ADM IN FAX #: [phone] RAD #: D/C DT PAGE 2 Signed ReportCBC W/MANUAL [id number] 09:03:00 Test Item Value Reference Range Interpretation [...] CELL (test code = NRBC) CBC W/MANUAL [id number] 05:56:00 Test Item Value Reference Range Interpretation [...] holley message] code = TCC) The system [employer] generated this result transmit holley reference range : 100. The refere nce range was not u sed to interpret th is result as normal/abnormal . SEGMENTED NEUTROPHILS % 50-65 (test code = SEG) LYMPHOCYTE (test code = % 20-40 LYMPH) NUCLEATED RED BLOOD 0 % 0-0 N CELL (test code = NRBC) CBC W/AUTO [id number] 05:56:00 Test Item Value Reference Range Interpretation [...] N (test code = NRBC) CBC W/MANUAL [id number] 05:56:00 Test Item Value Reference Range Interpretation Comments STAIN ACCEPTABILITY (test code = STN ACCEPTABLE) CELLS COUNTED (test code See_Comment [A utomated message] = TCC) The system [employer] generated this result transmitted ref erence range: 100. The reference range was not used to interpr et this result as normal/abnormal . SEGMENTED NEUTROPHILS % 50-65 (test code = SEG) LYMPHOCYTE (test code = % 20-40 LYMPH) HGB [id number] 14:30:00 Test Item Value Reference Range Interpretation Comments HEMOGLOBIN (test code = 7.7 g/dL 12-16 L HGB) HEMATOCRIT (test code = 16.2 % 37-47 LL VERI FIED BY REPEAT HCT) ANALYSIS.CRITIC AL VALUE CALLED TO MARIAM RN/LILIBETH RN PCUREAD BACK & CONFIRMED? YESB Y [id number] 1429 CBC W/MANUAL [id number] 10:21:00 Test Item Value Reference Range Interpretation [...] CELL (test code = NRBC) BASIC METABOLIC [id number] 06:45:00 Test Item Value Reference Range Interpretation [...] RATE (test code = GFR) mL/mi n/1.73 i7Pzdpacvjx Range:Healthy Adults >90 mL/min/1.73 m2 For Chronic Kidney Disease: Stage II Mild Decrease i n GFR 60-90 Stag e III Moderate Decrease in GFR 30-59 Stage IV Severe Decrease in GFR 15-29 Stage V Kidney Failure <15 CREATININE (test code 0.89 mg/dL 0.55-1.30 N = CREAT) CALCIUM (test code = 7.6 mg/dL 8.2-10.1 L CA) CBC W/MANUAL [id number] 06:21:00 Test Item Value Reference Range Interpretation [...] holley message] code = TCC) The system [employer] generated this result transmit holley reference range : 100. The refere nce range was not u sed to interpret th is result as normal/abnormal . SEGMENTED NEUTROPHILS % 50-65 (test code = SEG) LYMPHOCYTE (test code = % 20-40 LYMPH) NUCLEATED RED BLOOD 0 % 0-0 N CELL (test code = NRBC) CBC W/AUTO [id number] 06:21:00 Test Item Value Reference Range Interpretation [...] N (test code = NRBC) CBC W/MANUAL [id number] 06:21:00 Test Item Value Reference Range Interpretation Comments STAIN ACCEPTABILITY (test code = STN ACCEPTABLE) CELLS COUNTED (test code See_Comment [A utomated message] = TCC) The system [employer] generated this result transmitted ref erence range: 100. The reference range was not used to interpr et this result as normal/abnormal . SEGMENTED NEUTROPHILS % 50-65 (test code = SEG) LYMPHOCYTE (test code = % 20-40 LYMPH) VANCOMYCIN [id number] 07:33:00 Test Item Value Reference Range Interpretation Comments VANCOMYCIN TROUGH 13.20 mcg/mL 10-20 N THERAPEUTI C RANGE: (test code = VANCT) PEAK: 30 -40 mcg/mL TROUGH: 10-20 m cg/mL TOXIC RANGE: 80 -100 mcg/mL DATE OF LAST DOSE: 07/10/21TIME OF LAST DOSE: 0500HGB [id number] 06:08:00 Test Item Value Reference Range Interpretation Comments HEMOGLOBIN (test code = 6.0 g/dL 12-16 LL VERI FIED BY REPEAT HGB) ANALYSIS.CRITIC AL VALUE CALLED TO ROXI S/PAULY ALEGRIA AREAD BACK & CONFIRME D? YBY Y.LAB.[facility] 07/11 06 HEMATOCRIT (test code = 18.4 % 37-47 LL VERI FIED BY REPEAT HCT) ANALYSIS.CRITIC AL VALUE CALLED TO ROXI S/PAULY ALEGRIA AREAD BACK & CONFIRME D? YBY Y.LAB.[facility] 07/11 0608 SPECIMEN COMMENT: POD #2- XR CHEST 1 [id number] 13:45:00 [facility] : 1960 Sex: F Patient Name: YIN IBRAHIM Unit No: [id number] EXAMS: CPT CODE: [id number] XR CHEST 1 V 07537 IMAGES PROVIDED: One frontal view of the chest is provided. COMPARISON: 07/10/2021 FINDINGS: The left PICC line has been adjusted with tip now overlying the SVC. No other significant interval change. IMPRESSION:Successful revision of left PICC line as above. at 1345 Reported and signed by: Jeremy Kruse M.D. CC: Yahir Hendrix MD; Shannan Gibbons MD Technologist: KADY DIETZ(R) Transcribed D/ (7976) t.[facility] NAME: YIN IBRAHIM [address] PHYS: Shannan Valera MD : 1960 AGE: 61 SEX: F [place], [place] [address] LOC: Y.521 A PHONE #: [phone] EXAM DATE: 07/10/2021 STATUS: ADM IN FAX #: [phone] RAD #: D/C DT PAGE 1 Signed Report Patient Name: YIN IBRAHIM Unit No: [id number] EXAMS: CPT CODE: [id number] XR CHEST 1 V 78733 (Continued) Orig Print D/T: S: 07/10/2021 (9863) [facility] NAME: YIN IBRAHIM [address] PHYS: Shannan Valera MD : 1960 AGE: 61 SEX: F [place] [address] LOC: Y.521 A PHONE #: [phone] EXAM DATE: 07/10/2021 STATUS: ADM IN FAX #: [phone] RAD #:D/C DT PAGE 2 Signed Report - XR CHEST 1 [id number] 13:37:00 [facility] : 1960 Sex: F Patient Name: YIN IBRAHIM Unit No: [id number] EXAMS: CPT CODE: [id number] XR CHEST 1 V 08099 IMAGES PROVIDED: One frontal view of the chest is provided. COMPARISON: None FINDINGS: Right-sided Port-A-Cath is in place with tip at the cavoatrial junction. A left PICC line is in place with tip terminatingsuperiorly out of view. No focal consolidation. The cardiac silhouette is mildly enlarged. No pneumothorax or pleural effusion. IMPRESSION: Malpositioned left PICC line, as above. at 1337 Reported and signed by: Jeremy Kruse M.D. CC: Yahir Hendrix MD; Shannan Gibbons MD Technologist: KADY DIETZ(R) Transcribed D/ (3658) [facility]: [facility] [address] [facility] [address] PHYS: Shannan Winchester MD : 1960 AGE: 61 SEX: F [place] [address] LOC: Y.521A PHONE #: [phone] EXAM DATE: 07/10/2021 STATUS: ADM IN FAX #: [phone] RAD #: D/C DT PAGE 1 Signed Report Patient Name: YIN IBRAHIM Unit No: [id number] EXAMS: CPT CODE: [id number] XR CHEST 1 V 32388 (Continued) Orig Print D/T: S: 07/10/2021 (1340) [facility] NAME: YIN IBRAHIM [address] [facility] [address] PHYS: Shannan Valera MD : 1960 AGE: 61 SEX: F [place], [place] [address] LOC: Y.521 A PHONE #: [phone] EXAM DATE: 07/10/2021 STATUS: ADM IN FAX #: [phone] RAD #: D/C DT PAGE 2 Signed Report- XR PELVIS 1/2 [id number] 09:19:00 [facility] : 1960 Sex: F Patient Name: YIN IBRAHIM Unit No: [id number] EXAMS: CPT CODE: [id number] XR PELVIS 1/2 VIEWS 43900 INTRAOPERATIVE LEG LENGTH FILM COMMENT: COMPARISON: No prior exams available. In progress right hip replacement is noted. AP portable right hip COMMENT: The patient is status post joint replacement which is articulating normally. at 0919 Reported and signed by: Robert Cornelius MD CC: Yahir Hendrix MD Technologist: RIVER HARTMANN, RT(R) Transcribed D/ (09) [facility] NAME: YIN IBRAHIM [address] [facility] PHYS: MATZAK.Arianna - Yahir Hendrix : 1960 AGE: 61 SEX: F [place], [place] LOC: Y.521 A PHONE #: [phone] EXAM DATE: 07/09/2021 STATUS: ADM INFAX #: [phone] RAD #: D/C DT PAGE 1 Signed Report Patient Name: YIN IBRAHIM Unit No: [id number] EXAMS: CPT CODE: [id number] XR PELVIS 1/2 VIEWS 66150 (Continued) Orig Print D/T: S: 07/10/2021 (09) [facility] NAME: YIN IBRAHIM [address] [facility] PHYS: ALBERTO.Arianna - SimeonRoxannYahir M : 1960 AGE: 61 SEX: F [place], [place] [address] LOC: Y.521 A PHONE #: [phone] EXAM DATE: 07/09/2021 STATUS: ADM IN FAX #: [phone] RAD #: D/C DT PAGE 2 Signed Report- XR PELVIS 1/2 [id number] 09:19:00 [facility] 1960 Sex: F Patient Name: YIN IBRAHIM Unit No: [id number] EXAMS: CPT CODE: [id number] XR PELVIS 1/2 VIEWS 29481 INTRAOPERATIVE LEG LENGTH FILM COMMENT: COMPARISON: No prior exams available. In progress right hip replacement is noted. AP portable right hip COMMENT: The patient is status post joint replacement which is articulating normally. at 0919 Reported and signed by: Robert Cornelius MD CC: Yahir Hendrix MD Technologist: CONOR DALTON (RT.R) Transcribed D/ (918) [facility] NAME: YIN IBRAHIM[address] [place] [address] PHYS: Yahir Nix : 1960 AGE: 61 SEX: F [place] [address] LOC: Y.521 A PHONE #: [phone] EXAM DATE: 07/09/2021 STATUS: ADM IN FAX #: [phone] RAD #: D/C DT PAGE 1 Signed Report Patient Name: YIN IBRAHIM Unit No: [id number] EXAMS: CPT CODE: [id number] XR PELVIS 1/2 VIEWS 66586 (Continued) Orig Print D/T: S: 07/10/2021 (921) [facility] NAME: YIN IBRAHIM [address] [place] [address] PHYS: Yahir Nix : 1960 AGE: 61 SEX: F [place] [address] LOC: Y.521 A PHONE #: [phone] EXAM DATE: 07/09/2021 STATUS: ADM IN FAX #: [phone] RAD #: D/C DT PAGE 2 Signed ReportBASIC METABOLIC [id number] 06:46:00 Test Item Value Reference Range Interpretation [...] RATE (test code = GFR) mL/mi n/1.73 [id number] Range:Healthy Adults >90 mL/min/1.73 m2 For Chronic Kidney Disease: Stage II Mild Decrease i n GFR 60-90 Stage III Moderate Decrea se in GFR 30-59 St age IV Severe Decre ase in GFR 15-29 St age V Kidney Failur e <15 CREATININE (test code 1.18 mg/dL 0.55-1.30 N = CREAT) CALCIUM (test code = 7.7 mg/dL 8.2-10.1 L CA) SPECIMEN COMMENT: POD #1HGB [id number] 06:00:00 Test Item Value Reference Range Interpretation Comments HEMOGLOBIN (test code = HGB) 8.8 g/dL 12-16 L HEMATOCRIT (test code = HCT) 28.9 % 37-47 L SPECIMEN COMMENT: POD #1Novel Coronavirus 2019 [id number] 22:57:00 Test Item Value Reference Range Interpretation [...] for the identification of SARS-CoV-2 RNA usingthe VoiceGem M2000 Sy stem under the FDA Emergen cy UseAuthorizatio n. The testing is perf ormed by personneltraine d in the procedures for the Fajardo M2000 molecular diagnostic SARS-CoV-2 assa y in vitro. Novel Coronavirus 2018 [id number] 22:56:00 Test Item Value Reference Range Interpretation [...] personneltraine d in the procedures for the VoiceGem M2000 molecular diagnostic SARS-CoV-2 assa y in vitro. PROTHROMBIN [id number] 11:14:00 Test Item Value Reference Range Interpretation Comments PROTHROMBIN TIME 12.4 secs 10.1-12.5 N PATIENT (test code = PTP) INTERNATIONAL NORMAL 1.09 <2.0 RECOMME NDED THERAPEUTIC RATIO (test code = RANGE FOR ORAL INR) ANTICOAGULANTTR EATMENT: CONDITION INRPr ophylaxis of venous throm bosis in 2.0 - 3.0 high- risk medical or surg ical patientsTreatme nt of venous thrombos is 2.0 - 3.0Prevention o f embolism 2.0 - 3.0Prevention o f recurrent embol ism, or 3.0 - 4.5 patie nts with mechanical pros thetic intravascular v dempsey IS PATIENT ON ANTICOAGULANTS ? NHas Lab been notified if Patient is on Heparin Drip? NOIf Yes, orderCBC, OCCULT BLOOD, PT every other day NTHROMBOPLASTIN TIME [id number] 11:14:00 Test Item Value Reference Range Interpretation Comments PTT ACTIVATED (test code = APTT) 33.3 secs 24.9-37.0 N IS PATIENT ON ANTICOAGULANTS ? [facility] been notified if Patient is on [...] 0-0 N code = NRBC) COMPREHENSIVE METABOLIC [id number] 11:13:00 Test Item Value Reference Range Interpretation [...] RATE (test code = GFR) mL/mi n/1.73 r8Hydighfiw Range:Healthy Adults >90 mL/min/1.73 m2 For Chronic Kidney Disease: Stage II Mild Decrease i n GFR 60-90 Stage III Moderate Decrea se in GFR 30-59 St age IV Severe Decre ase in GFR 15-29 St age V Kidney Failur e <15 CREATININE (test code 1.11 mg/dL 0.55-1.30 [...] (test code = ALKP) SYNOVIAL FLD CELL [id number] 18:42:00 Test Item Value Reference Range Interpretation Comments SYNOVIAL FLD XANTHOCHROMIC LT. YELLOW A COLOR (test code = COLSY) SYNOVIAL FLD [place] CLEAR SLIGHT APPEARANCE (test code = APPSY) SYNOVIAL FLD 1.5 mL VOLUME (test code = VOLSY) SYNOVIAL FLD WBC 1048.000 /MM3 0-200 H (test code = WBCSY) SYNOVIAL FLD RBC 27765.000 /mm3 0-2 H NOTE: An automated (test code = method is now b eing RBCSY) used to determinesynovi al fluid WBC and RBC cou nts. The differential wi llstill be performed ma nually. SYNOVIAL FLD POLY 77 % 0-25 H (test code = POLYSY) SYNOVIAL FLD 11 % 0-78 N LYMPHOCYTE (test code = LYMPHSY) SYNOVIAL FLD 12 % 0-71 N MONOCYTE (test code = MONOSY) SPECIMEN COMMENT: ASP.RT.HIP- XR FLUORO [id number] 13:27:00 [facility] 1960 Sex: F Patient Name: YIN IBRAHIM Unit No: [id number] EXAMS: CPT CODE: [id number] XR FLUORO NDL 55283 FLUOROSCOPICALLY GUIDED ASPIRATION OF THE RIGHT HIP [...] MD Technologist: Darshana Briceño RT.(R) Transcribed D/ (7677) [facility] NAME: YIN IBRAHIM [address] [place] [address] PHYS: Yhair Nix : 1960 AGE: 61 SEX: F [place] [id number] LOC: Y.RAD PHONE #: [phone] EXAM DATE: 06/22/2021 STATUS: REG CLI FAX #: [phone] RAD #: D/C DT PAGE 1 Signed Report Patient Name: YIN IBRAHIM Unit No: [id number] EXAMS: CPT CODE: [id number] XR FLUORO NDL 01004 (Continued) Orig PrintD/T: S: 06/22/2021 (3320) [facility] NAME: YIN IBRAHIM [address] [place] [address] PHYS: Yahir Nix : 1960 AGE: 61 SEX: F [place] [address] : Y.RAD PHONE #: [phone] EXAM DATE: 06/22/2021 STATUS: REG CLI FAX #: [phone] RAD #: D/C DT PAGE [id number] 13:11:00 Test Item Value Reference Range Interpretation [...] COMMENT: ASP.RT.HIP- CT LOWER EXTRM W/O C [id number] 11:26:00 [facility] 1960 Sex: F Patient Name: YIN IBRAHIM Unit No: [id number] EXAMS: CPT CODE: [id number] [place] L[place]TRM W/[place] [address] [place] SCAN RIGHT HIP WITH RECONSTRUCTION DIAGNOSIS: 1. Patient status post total right hip arthroplasty. The prosthesis is articulating normally. There is no evidence of periprosthetic fracture. Bony lucency adjacent the acetabular component represents a screw tract. TECHNIQUE: Volumetric CT data of theright hip was obtained without use of intravenous contrast. Images were then viewed in the axial, coronal and sagittal planes. CT radiation dose optimization is achieved for this examination by the useof a CT protocol in accordance with ACR practice standards and adherence to quality assistant's recommendations. INDICATION: RIGHT HIP R/O FRACTURE COMPARISON: None. FINDINGS: Findings are as described above. at 1126 Reported and signed by: Nabeel Matias MD CC: Yahir Hendrix MD Technologist: RT Germaine(R) CTDI: DLP: Trnscrpt: 06/22/2021 (1126) t.SDR.GVG [facility] NAME: YIN IBRAHIM [address] [facility] PHYS: MATVA.01 - Yahir Hendrix : 1960 AGE: 61 SEX: F [place], [place] [address] LOC: Y.RAD PHONE #: [phone] EXAM DATE: 06/22/2021 STATUS: REG CLI FAX #: [phone] RAD #: D/C DT PAGE 1 Signed Report Patient Name: YIN IBRAHIM Unit No: [id number] EXAMS: CPT CODE: [id number] LOWER EXTRM W/[place] [address] (Continued) Orig Print D/T: S: 06/22/2021 (1129) [facility] NAME: YIN IBRAHIM [address] PHYS: MATVA.Arianna - Grzegorz Hendrixos Crystal : 1960 AGE: 61 SEX: F [place], [place] [address] LOC: Y.RAD PHONE #: [phone] EXAM DATE: 06/22 STATUS: REG CLI FAX #: [phone] RAD #: D/C DT PAGE 2 Signed Report- XR PELVIS 1/2 [id number] 08:44:00 [facility] 1960 Sex: F Patient Name: YIN IBRAHIM Unit No: [id number] EXAMS: CPT CODE: [id number] XR PELVIS 1/2 VIEWS 83676 INTRAOPERATIVE LEG LENGTH FILM COMMENT: COMPARISON: No prior exams available. In progress right hip replacement is noted. AP portable right hip COMMENT: The patient is status post joint replacement whichis articulating normally. at 0844 Reported and signed by: Robert Cornelius MD CC: Yahir Hendrix MD Technologist: FERNANDO ALEMAN RT(R) Transcribed D/ (0844) tYEFRIL [facility] NAME: YIN IBRAHIM [address] [facility] PHYS: MATZAK.Arianna - Grzegorz Hendrixos Crystal : 1960 AGE: 60 SEX: F [place], [place] [address] LOC: Y.502 A PHONE #: [phone] EXAM DATE: 05/21/2021 STATUS: ADM IN FAX#: [phone] RAD #: D/C DT PAGE 1 Signed Report Patient Name: YIN IBRAHIM Unit No: [id number] EXAMS: CPT CODE: [id number] XR PELVIS 1/2 VIEWS 52218 (Continued) Orig Print D/T: S: 05/22/2021 (0847) [facility] NAME: YIN IBRAHIM [address] [facility] PHYS: MATVA.01 - Yahir Hendrix : 1960 AGE: 60 SEX: F [place], [place] [address] LOC: Y.502 A PHONE #: [phone] EXAM DATE: 05/21/2021 STATUS: ADM IN FAX #: [phone] RAD #: D/C DT PAGE 2 Signed Report- XR PELVIS 1/2 [id number] 08:44:00 [facility] : 1960 Sex: F Patient Name: YIN IBRAHIM Unit No: [id number] EXAMS: CPT CODE: [id number] XR PELVIS 1/2 VIEWS 29164 INTRAOPERATIVE LEG LENGTH FILM COMMENT: COMPARISON: No prior exams available. In progress right hip replacement is noted. AP portable right hip COMMENT: The patient is status post joint replacement whichis articulating normally. at 0844 Reported and signed by: Robert Cornelius MD CC: Yahir Hendrix MD Technologist: CONOR DALTON(RT.R) Transcribed D/ (0844) [facility] NAME: YIN IBRAHIM [address] [facility] PHYS: Yahir Nix : 1960 AGE: 60 SEX: F [place], [place] [address] LOC: Y.502 A PHONE #: [phone] EXAM DATE: 05/21/2021 STATUS: ADM IN FAX #: [phone] RAD #: D/C DT PAGE 1 Signed Report Patient Name: YIN IBARHIM Unit No: [id number] EXAMS: CPT CODE: [id number] XR PELVIS 1/2 VIEWS 33562 (Continued) Orig Print D/T: S: 05/22/2021 (0847) [facility] NAME: YIN IBRAHIM [address] [facility] PHYS: Yahir Nix : 1960 AGE: 60 SEX: F [place] [address] LOC: Y.502 A PHONE#: [phone] EXAM DATE: 05/21/2021 STATUS: ADM IN FAX #: [phone] RAD #: D/C DT PAGE 2 SignedReportHGB [id number] 06:02:00 Test Item Value Reference Range Interpretation Comments HEMOGLOBIN (test code = HGB) 9.9 g/dL 12-16 L HEMATOCRIT (test code = HCT) 29.4 % 37-47 L SPECIMEN COMMENT: POD #1PROTHROMBIN [id number] 13:39:00 Test Item Value Reference Range Interpretation Comments PROTHROMBIN TIME 11.0 secs 10.1-12.5 N PATIENT (test code = PTP) INTERNATIONAL NORMAL 0.96 <2.0 RECOMME NDED THERAPEUTIC RATIO (test code = RANGE FOR ORAL INR) ANTICOAGULANTTR EATMENT: CONDITION INRProphylaxis of venous thrombosis in 2 .0 - 3.0 high-risk medic al or surgical patientsTreatme nt of venous thrombos is 2.0 - 3.0Prevention o f embolism 2.0 - 3.0Prevention o f recurrent embol ism, or 3.0 - 4.5 patie nts with mechanical pros thetic intravascular v dempsey IS PATIENT ON ANTICOAGULANTS ? NHas Lab been notified if Patient is on Heparin Drip? NOIf Yes, orderCBC, OCCULT BLOOD, PT every other day NTHROMBOPLASTIN TIME [id number] 13:39:00 Test Item Value Reference Range Interpretation Comments PTT ACTIVATED (test code = APTT) 29.2 secs 24.9-37.0 N IS PATIENT ON ANTICOAGULANTS ? NHas Lab been notified if Patient is on Heparin Drip? NOIf Yes, orderCBC, OCCULT BLOOD, PT every other day NCOMPREHENSIVE METABOLIC [id number] 13:19:00 Test Item Value Reference Range Interpretation [...] RATE (test code = GFR) mL/mi n/1.73 e9Afvyrcktt Range:Healthy Adults >90 mL/min/1.73 m2 For Chronic Kidney Disease: Stage II Mild Decrease i n GFR 60-90 Stage III Moderate Decrea se in GFR 30-59 St age IV Severe Decre ase in GFR 15-29 S tage V Kidney Failur e <15 CREATININE (test code 1.15 mg/dL 0.55-1.30 [...] TOTAL (test code = ALKP) CBC W/AUTO [id number] 12:40:00 Test Item Value Reference Range Interpretation [...] NRBC) - MRI LW JNT W/O CONT [id number] 12:32:00 [facility] : 1960 Sex: F Patient Name: YIN IBRAHIM Unit No: [id number] EXAMS: CPT CODE: [id number] [place] JNT W/[place] [address] MRI OF THE PELVIS AND HIPS WITH SPECIAL ATTENTION TO THE RIGHT HIP DIAGNOSIS: 1. 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 Mild bone marrow edema is present2. The patient is status post left hip arthroplasty and there is a joint effusion which communicateswith the trochanteric bursa. Edema is present in the left adductor muscles consistent with recent prior surgery. COMMENT: COMPARISON: No prior exams available. Scans were performed in the sagittal, axial and coronal planes utilizing T1, spin density with fat saturation, inversion recovery and T2-weighted pulse sequences. Bony abnormalities are present as noted. No tendon tears are seen. No muscle tears are identified. at 1232 Reported and signed by: Robert Cornelius MD CC: Yahir Hendrix MD Technologist: Crissy Hopkins, RT(R) Transcribed D/ (1232) t.BEBETO.L [facility] NAME: YIN IBRAHIM [address] PHYS: MATVA.01 - Yahir Hendrix : 1960 AGE: 60 SEX: F [place], [place] [address] LOC: Y.MRI PHONE #: [phone] EXAM DATE: 04/19/2021 STATUS: REG CLI FAX #: [phone] RAD #: D/C DT PAGE 1 Signed Report Patient Name: YIN IBRAHIM Unit No: [id number] EXAMS: CPT CODE: [id number] MRI LW JNT W/[place] [address] (Continued) Orig Print D/T: S: 04/19/2021 (1235) [facility] NAME: YIN IBRAHIM [address] [facility] PHYS: MATZAK.Yahir Du : 1960 AGE: 60 SEX: F [place], [place] [address] LOC: Y.MRI PHONE #: [phone] EXAM DATE: 04/19/2021 STATUS: REG CLI FAX #: [phone] RAD #: D/C DT PAGE 2 Signed Report- XR PELVIS 1/2 [id number] 14:31:00 [facility] : 1960 Sex: F Patient Name: YIN IBRAHIM Unit No: [id number] EXAMS: CPT CODE: [id number] XR PELVIS 1/2 VIEWS 61530 AP VIEW OF THE PELVIS. COMMENT: In progress total left hip arthroplasty. AP view of the pelvis COMMENT: COMPARISON: No prior exams available. Completed total left hip arthroplasty. Prosthesis appears to be in good position. at 1431 Reported and signed by: Jeremy Kruse M.D. CC: Yahir Hendrix MD Technologist: Robert Aiken(R) Transcribed D/ (1431) [facility] NAME: YIN IBRAHIM [address] [facility] PHYS: Yahir Nix : 1960 AGE: 60 SEX: F [place], [place] [address] LOC: Y.307 A PHONE #: [phone] EXAM DATE: 03/15/2021 STATUS: DIS IN FAX #: [phone] RAD #: D/C DT 03/16/2021 PAGE 1 Signed Report Patient Name: YIN IBRAHIM Unit No: [id number] EXAMS: CPT CODE: [id number] XR PELVIS 1/2 VIEWS 36018 (Continued) Orig Print D/T: S: 05/2021 (1434) [facility] NAME: YIN IBRAHIM [address] [facility] PHYS: Yahir Nix : 1960 AGE: 60 SEX: F [place], [place] [address] LOC: Y.307A PHONE #: [phone] EXAM DATE: 03/15/2021 STATUS: DIS IN FAX #: [phone] RAD #: D/C DT 03/16/2021 PAGE 2 Signed Report- XR PELVIS 1/2 [id number] 14:31:00 [facility] : 1960 Sex: F Patient Name: YIN IBRAHIM Unit No: [id number] EXAMS: CPT CODE: [id number] XR PELVIS 1/2 VIEWS 97040 APVIEW OF THE PELVIS. COMMENT: In progress total left hip arthroplasty. AP view of the pelvis COMMENT:COMPARISON: No prior exams available. Completed total left hip arthroplasty. Prosthesis appears to be in good position. at 1431 Reported and signed by: Jeremy Kruse M.D. CC: Yahir Hendrix MD Technologist: CONOR DALTON (RT.R) Transcribed D/ (1431) [facility]unR.SLJ [facility] NAME: YIN IBRAHIM [address] [facility] PHYS: INDAINA Randall SimeonGrzegorzYahir Crystal : 1960 AGE: 60 SEX: F [place] [address] LOC: Y.307 A PHONE #: [phone] EXAM DATE: 03/15/2021 STATUS: DIS IN FAX #: [phone] RAD #: D/C DT 03/16/2021 PAGE 1 Signed Report Patient Name: YIN IBRAHIM Unit No: [id number] EXAMS: CPT CODE: [id number] XR PELVIS 1/2 VIEWS 66144 (Continued) Orig Print D/T: S: 03/16/2021 (1434) [facility] NAME: YIN IBRAHIM [address] [facility] PHYS: [place] Randall SimeonGrzegorzYahir Crystal : 1960 AGE: 60 SEX: F [place] [address] LOC: Y.307 A PHONE #: [phone] EXAM DATE: 03/15/2021 STATUS: DIS IN FAX #: [phone] RAD #: D/C DT 03/16/2021 PAGE 2 Signed ReportBASIC METABOLIC [id number] 06:32:00 Test Item Value Reference Range Interpretation [...] RATE (test code = GFR) mL/mi n/1.73 p8Lmnnkpmid Range:Healthy Adults >90 mL/min/1.73 m2 For Chronic Kidney Disease: Stage II Mild Decrease i n GFR 60-90 Stage III Moderate Decrea se in GFR 30-59 St age IV Severe Decre ase in GFR 15-29 St age V Kidney Failur e <15 CREATININE (test code 1.03 mg/dL 0.55-1.30 N = CREAT) CALCIUM (test code = 8.2 mg/dL 8.2-10.1 N CA) HGB [id number] 06:07:00 Test Item Value Reference Range Interpretation [...] code = 0.1 {K/CMM} 0.0-0.5 EOSINOPHILS #) [facility][QL] [id number] 14:49:00 Test Item Value Reference Range Interpretation Comments IMMUNOGLOBULIN A (test code = 137 mg/dl 47-310 N IMMUNOGLOBULIN A) IMMUNOGLOBULIN G (test code = 708 mg/dl 600-1640 N IMMUNOGLOBULIN G) IMMUNOGLOBULIN M (test code = 68 mg/dl 50-300 N IMMUNOGLOBULIN M) [facility][QL] PROTEIN, TOTAL AND PROTEIN [id number] 14:49:00 Test Item Value Reference Range Interpretation Comments PROTEIN, TOTAL (test 6.5 g/dl 6.1-8.1 N code = PROTEIN, TOTAL) ALBUMIN (test code = 3.9 g/dl 3.8-4.8 N ALBUMIN) WLSVI-1-YZJARQGEA 0.4 g/dl 0.2-0.3 (test code = WDWHE-7-RXXFOUKDZ) ANALL-0-TCYYXBXSQ 0.9 g/dl 0.5-0.9 N (test code = LLVJG-1-YIOCNDBGL) BETA 1 GLOBULIN (test 0.4 g/dl 0.4-0.6 [...] dyscrasias are a possible clinic al diagnosis. Alph a-1 globulin increa se noted. [facility] PhysiciansNovel Coronavirus 2019 [id number] 11:21:00 Test Item Value Reference Range Interpretation [...] for the identification of SARS-CoV-2 RNA usingthe VoiceGem M2000 Sy stem under the FDA Emergen cy UseAuthorizatio n. The testing is perf ormed by personneltrachucky d in the procedures for the Fajardo M2000 molecular diagnostic SARS-CoV-2 assa y in vitro. Novel Coronavirus 2018 [id number] 11:21:00 Test Item Value Reference Range Interpretation [...] carlos fraser in the procedures for the Fajardo M2000 molecular diagnostic SARS-CoV-2 assa y in vitro. AB HIV 16:09:00 Test Item Value Reference Range Interpretation Comments AB HIV 1 (test code NONREACTIVE NONREACTIVE DONE AT: [facility] = HIV1AB) [facility] [address] [place], [place] [address]Done by [employer] 4th Gen HIV Ag/Ab C ombo Screen AB HIV 1 16:09:00 Test Item Value Reference Range Interpretation Comments AB HIV 1 2 (test NONREACTIVE NONREACTIVE Done by [employer] code = CRE03SZ) 4th Gen HIV Ag/Ab Combo Screen COMPREHENSIVE METABOLIC [id number] 13:20:00 Test Item Value Reference Range Interpretation [...] RATE (test code = GFR) mL/mi n/1.73 f9Ppuwuthit Range:Healthy Adults >90 mL/min/1.73 m2 For Chronic Kidney Disease: Stage II Mild Decrease i n GFR 60-90 Stage III Moderate Decrea se in GFR 30-59 St age IV Severe Decre ase in GFR 15-29 St age V Kidney Failur e <15 CREATININE (test code 1.18 mg/dL 0.55-1.30 [...] H TOTAL (test code = ALKP) PROTHROMBIN [id number] 13:20:00 Test Item Value Reference Range Interpretation Comments PROTHROMBIN TIME 10.8 secs 10.1-12.5 N PATIENT (test code = PTP) INTERNATIONAL NORMAL 0.95 <2.0 RECOMME NDED THERAPEUTIC RATIO (test code = RANGE FOR ORAL INR) ANTICOAGULANTTR EATMENT: CONDITION INRPr ophylaxis of venous throm bosis in 2.0 - 3.0 high- risk medical or surg ical patientsTreatme nt of venous thrombos is 2.0 - 3.0Prevention o f embolism 2.0 - 3.0Prevention o f recurrent embol ism, or 3.0 - 4.5 patie nts with mechanical pros thetic intravascular v dempsey IS PATIENT ON ANTICOAGULANTS ? NHas Lab been notified if Patient is on Heparin Drip? NOIf Yes, orderCBC, OCCULT BLOOD, PT every other day NTHROMBOPLASTIN TIME [id number] 13:20:00 Test Item Value Reference Range Interpretation [...] NRBC) - MRI LW JNT W/O CONT [id number] 08:45:00 [facility] 1960 Sex: F Patient Name: YIN IBRAHIM Unit No: [id number] EXAMS: CPT CODE: [id number] MRI LW JNT W/O CONT [place] [address]USRWLZQBG: Multiplanar, multisequence MRI of the pelvis/left hip without contrast. COMPARISON: None available. 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 There is collapse of the articular surface by approximately 2 mm with severe bone marrow edema extending throughout [...] surface collapse. at 0845 Reported and signed by: Jeremy Kruse M.D. CC: Felix Bliss MD Technologist: EVAN TIM.MRI,CT Transcribed D/ (0845) [facility] NAME: YIN IBRAHIM[address] [facility] PHYS: Felix Das : 1960 AGE: 60 SEX: F [place], [place] [address] LOC: Y.MRI PHONE #: [phone] EXAM DATE: 03/06/2021 STATUS: DEP CLI FAX#: [phone] RAD #: D/C DT PAGE 1 Signed Report Patient Name: YIN IBRAHIM Unit No: [id number] EXAMS: CPT CODE: [id number] [place] LW JNT W/[place] [address] (Continued) Orig Print D/T: S: 03/07/2021 (0848) [facility] NAME: YIN IBRAHIM [address] [facility] PHYS: Felix Das : 1960 AGE: 60 SEX: F [place], [place] [address] LOC: LONG PHONE #:[phone] EXAM DATE: 03/06/2021 STATUS: DEP CLI FAX #: [phone] RAD #: D/C DT PAGE 2 Signed VitlhbUIPY-BvB-6 (COVID-19) RNA [Presence] in Respiratory specimen by [facility] with probe [id number] 19:23:13 Test Item Value Reference Range Interpretation Comments SARS-CoV-2 (COVID-19) RNA Not detected Not-Detected [Presence] in Respiratory specimen by [facility] with probe detection (test code = 37437-0) [facility] ([facility]) 2020-05-04 18:46:00 Test Item Value Reference Range Interpretation Comments SARS-COV2/RT-PCR (test code = Detected Not Detected, Negative A A [id number]) SARS-COV-2 PERFORMING LAB [facility] (test code = 1023248) Results are for the detection of SARS-CoV-2 [...] copies/mL.This SARS CoV-2 test is a rapid, qxzc-azvyCW-NXW test intended for the qualitative detection of [...] 564(g) of the Act.Fact Sheet for Healthcare Providers:https://www.[employer]/ Documents/Xpert%20Xpress%20SARS%20CoV-2/Fact%20Sheets/302-3802%70RHLH-GVU-0%20HE ALTHCARE%20PROVIDERS%20FACT%20SHEET.pdfFact Sheet for Healthcare Patients:https://www.[employer]/Documents/Xpert%20Xpress %20SARS%20CoV-2/Fact%20Sheets/302-3801%19SFTJ-BXO-3%20PATIENT%20FACT%20SHEET.pdf Performing Laboratory:[id number], [place] [address]YB Pelvis with Pelvis Transvaginal [id number] 09:51:00STUDY: Pelvis w Pelvis Transvaginal USCOMPARISON: None.HISTORY: - Right lower quadrant abdominal tenderness.FINDINGS:Transvaginal and transabdominal ultrasound images of the pelvis were obtained.Uterus: Has been removed.Ovaries: Have been removed.Pelvic fluid: None.IMPRESSION:Status post hysterectomy and bilateral salpingooophorectomy.Otherwise no significant abnormality.--Read by: Dixie Lewis MDDictated Date/time: 08/23/19 10:39Electronically Signed by: Dixie Lewis MD 08/23/1910:40FINAL REPORTUT [facility] [id number] 08:22:00COMPLETE ULTRASOUND OF LEFT BREAST AND AXILLA: 08/23/2019CLINICAL: /N63.0 Unspecified Lump In Unspecified Breast. COMPARISON:Comparison is made to exam dated: 08/23/2019 mammogram - [facility]. TECHNIQUE: Color flow and real- [...] were personally discussed with the patient. Professional servicesare provided by the [facility].Bashir Esparza M.D. levi/:08/23/2019 09:14:30 Physician In Private Practice(s): Alyx Almaraz RDMS, [facility] Imaging[facility] sent: BI-RADS 1/2 Ultrasound BI-RADS: 2 Benign--Read by: Bashir Esparza MDDictated Date/time: 08/23/19 09:14Electronically Signed by: Bashir Esparza MD 08/23/1909:14FINAL REPORTUT [facility] Digital Mammo DX Elbert w ed [id number] 07:40:00BILATERAL DIGITAL DIAGNOSTIC MAMMOGRAM 3D/2D WITH CAD: 08/23/2019CLINICAL: N63.0 Unspecified Lump InUnspecified Breast/N63.0. Current study was evaluated with a Computer Aided Detection (CAD) system. COMPARISON:No previous mammograms available for comparison at time of imageinterpretation. These havebeen requested. TECHNIQUE: Digital Breast Tomosynthesis was performed and utilized forInterpretation. Current study was also evaluated with a Computer AidedDetection (CAD) system.FINDINGS:There are scattered fibroglandular densities in both breasts. Bilateral prepectoral saline implants are present. Th e area of palpableconcern was dimpling in the left breast detected by the patient's caregiver,which the patient could not specifically point to at the technologist at thetime of the mammogram. No significant masses, calcifications, or other findings are seen in eitherbreast. IMPRESSION: INCOMPLETE: NEEDS ADDITIONAL IMAGING EVALUATIONRECOMMENDATION:There is no abnormality seen in the left breast to correspond with the paincentral to the nipple, however, clinical correlation, clinical followup, andultrasound are recommended. The area of palpable concern was dimpling in the left breast detected by thepatient's caregiver, which the patient could not specifically point to thetechnologist at the time ofthe mammogram. There is no gross abnormality seenin the left breast to correspond with the palpable abnormality, however,clinical correlation, clinical followup, and ultrasound are recommended. Professional services are provided by the [facility].Bashir Esparza M.D. levi/:08/23/2019 09:13:09 Physician In Private Practice(s): Viky Paige [facility] ImagingMammogram BI-RADS: 0 Indeterminate--Read by: Bashir Esparzaictated Date/time: 08/23/19 09:13Electronically Signed by: Bashir Esparza MD 08/23/1909:13FINAL [facility]PORT[facility]] CULTURE, URINE, [id number] 16:33:01 Test Item Value Reference Range Interpretation Comments FINAL REPORT (test code = FINAL No Growth REPORT) [facility][O] Urine Dipstick (In Office)2019-08-18 16:32:00 Test Item Value Reference Range Interpretation Comments Glucose (test code = Glucose) neg N LEUKOCYTES (test code = LEUKOCYTES) neg N NITRITE; Normal (test code = 42040-8) neg N UROBILINOGEN; Normal (test code = 0.2 N 38123-0) PROTEIN; Normal (test code = 86968-2) neg N pH (test code = pH) 7.5 N URINE BLOOD; Normal (test code = neg N 58539-7) SPECIFIC GRAVITY; Normal (test code = 1.020 N 2965-2) KETONES; Normal (test code = 74384-1) neg N BILIRUBIN; Normal (test code = 72314-9) neg N [facility]. [facility] - Affirm VPIII (BV Panel)2019-08-09 00:00:00 Test Item Value Reference Range Interpretation Comments Affirm VPIII (BV Panel) REPORT See Comment (test code = Affirm VPIII (BV Panel) REPORT) [facility] - GC/[id number] 00:00:00 Test Item Value Reference Range Interpretation Comments GC REPORT (test code = GC REPORT) Negative Chlamydia REPORT (test code = Negative 45456-5) [facility]
[2022-10-01] MEDS ORDERED: Levofloxacin500mg IV 500 MG/100 ML BAG IV SCH (16:00)
[2022-10-01] MEDS: ALBUTEROL 2.5 MG/3 ML NEB SOL NEB SCH ×3 (16:00→20:00)
[2022-10-01] MEDS: IPRATROPIUM BROM 0.5MG/2.5ML NEB SCH ×3 (16:00→20:00)
--- NOTE | 2022-10-01 16:30 | RAD REPORT ---
EXAM DESCRIPTION: RAD - Chest Pa And Lat (2 Views) - 10/01/2022 4:24 pm CLINICAL HISTORY: pneumonia COMPARISON: Chest Single View dated 08/03/2021; Chest Single View dated 04/06/2021; Chest Pa And Lat ( 2 Views) dated 09/21/2020; Chest Single View dated 05/15/2020 FINDINGS: Lines: Right IJ approach Port-A-Cath with tip overlying the superior cavoatrial junction. Lungs: Developing patchy airspace disease at the right lung base. Background of interstitial prominen ce and coarsening. Pleural: No significant pleural effusions or pneumothorax. Cardiac: Similar size configuration. Mediastinum: Within normal limits. Bones: No acute fractures. Other: None IMPRESSION: Patchy airspace disease at the right lung base which is concerning for pneumonia. Backgr ound coarsening of the interstitial markings that may indicate coexisting edema.
[2022-10-01 16:45] LABS: Absolute Lymphocytes (CBC) 0.5 K/uL (0.7-4.9); Hematocrit 29.1 % (36.0-45.0); MCV 83.3 fL (80-100); MPV 6.7 fL (7.6-11.3)
[2022-10-01 17:00] LABS: Albumin 3.2 g/dL (3.4-5.0); Bilirubin Total 0.6 mg/dL (0.2-1.0); Potassium 3.7 mmol/L (3.5-5.1); Protein, Total 7.5 g/dL (6.4-8.2)
[2022-10-01 17:08] VITALS: BMI 32.7
[2022-10-01 17:35] LABS: Arterial Blood Carboxyhemoglob 1.4 % (0-1.5); Blood Gas Oxyhemoglobin 93.9 % (94-97)
[2022-10-01] MEDS: ENOXAPARIN 40 MG/0.4 ML SQ SCH (17:46)
[2022-10-01] MEDS: Levofloxacin 750mg IV 750 MG/150 ML BAG IV SCH (17:46)
[2022-10-01] MEDS: METHYLPREDNISOLONE 40 MG INJ IV SCH (18:15)
[2022-10-01] MEDS ORDERED: INFLUENZA VACCINE (for 6+ mo) 0.5 ML DOSE IMVAC ONE (18:30)
[2022-10-01] MEDS ORDERED: PNEUMOCOCCAL VACCINE 0.5 ML IMVAC ONE (18:30)
[2022-10-01] MEDS: DULERA 200/5 (MOMETASONE/FORMOTEROL) INHALER IH SCH (20:00)
[2022-10-02] MEDS: METHYLPREDNISOLONE 40 MG INJ IV SCH ×3 (00:01→17:18)
[2022-10-02] MEDS: BENZONATATE 100 MG CAP PO PRN ×2 (00:01→09:28)
[2022-10-02] MEDS: HYDROCODONE/APAP 5/325 MG TAB PO PRN ×2 (00:01→09:27)
[2022-10-02] MEDS: IPRATROPIUM BROM 0.5MG/2.5ML NEB SCH ×5 (01:50→20:45)
[2022-10-02] MEDS: ALBUTEROL 2.5 MG/3 ML NEB SOL NEB SCH ×5 (01:50→20:45)
[2022-10-02] MEDS: DULERA 200/5 (MOMETASONE/FORMOTEROL) INHALER IH SCH ×2 (09:23→21:40)
[2022-10-02] MEDS ORDERED: NEBIVOLOL HCL 5 MG TAB PO PRN (10:54)
[2022-10-02] MEDS ORDERED: [UNRECOGNIZED DRUG - OTHER] PO SCH (12:00)
[2022-10-02] MEDS ORDERED: HOME MED 1 EA UNK (Bupropion Hcl [Wellbutrin Xl] 300 MG Tab.Er.24h) PO SCH (12:00)
[2022-10-02] MEDS ORDERED: DEXMETHYLPHENIDATE HCL 40 MG PO SCH (12:00)
[2022-10-02] MEDS: ARIPiprazole 5 MG TAB PO SCH (12:40)
[2022-10-02] MEDS: hydroCHLOROthiazide 12.5 MG CAP PO SCH (12:40)
[2022-10-02] MEDS: DULOXETINE 30 MG CAP PO SCH (12:41)
[2022-10-02] MEDS: BUPROPION HCL XL 150 MG TAB PO SCH (12:41)
[2022-10-02] MEDS: VALSARTAN 160 MG TAB PO SCH (12:41)
[2022-10-02] MEDS: DEXMETHYLPHENIDATE HCL 40 MG PO SCH (13:00)
[2022-10-02] MEDS: ENOXAPARIN 40 MG/0.4 ML SQ SCH (17:18)
[2022-10-02] MEDS: Levofloxacin 750mg IV 750 MG/150 ML BAG IV SCH (17:18)
--- NOTE | 2022-10-02 18:15 | PN ---
Date of Progress Note: 10/02/2022 Subjective: Patient was seen this morning for followup. No new complaints or problems reported by h er. Overall, the patient reports that she feels a little better today than yesterday. Objective: Vital Signs: Reviewed. HEENT: Examination unremarkable. Lungs: Bilateral good equal air entry, not in any respiratory distr ess at rest. The patient does have bilateral wheezing present, scattered all over the lung draper an d some rales noted in lower lung draper. Heart: Heart sounds normal. Abdomen: Soft, bowel sounds normal. No guarding, rigidity, tenderness, distention. Extremities: No leg edema. Impression: 1.Pneumonia. 2.Acute exacerbation of asthma. 3.Hypertension. Plan: We will go ahead and continue current antibiotic which is Levaquin. We will continue oxygen r eplacement therapy, IV steroids, inhaler per order, and continue current DVT prophylaxis using Loveno x. Home medications will be continued per order. We will see her tomorrow for followup. INDER/MODL Voice ID: [id number] Report ID: [id number]
[2022-10-02] MEDS ORDERED: POTASSIUM CL 8 MEQ PO SCH (21:00)
[2022-10-02] MEDS: POTASSIUM CL 8 MEQ PO SCH (21:38)
[2022-10-02] MEDS: ATORVASTATIN 20 MG TAB PO SCH (21:39)
[2022-10-02] MEDS: ZOLPIDEM TARTRATE 10 MG TABLET PO SCH (21:40)
[2022-10-03] MEDS: METHYLPREDNISOLONE 40 MG INJ IV SCH ×3 (00:46→17:18)
[2022-10-03] MEDS: ALBUTEROL 2.5 MG/3 ML NEB SOL NEB SCH ×4 (01:30→19:55)
[2022-10-03] MEDS: IPRATROPIUM BROM 0.5MG/2.5ML NEB SCH ×4 (01:30→19:55)
[2022-10-03] MEDS: LEVOTHYROXINE SOD 0.025 MG TAB PO SCH (05:57)
[2022-10-03 06:21] LABS: Potassium 3.1 mmol/L (3.5-5.1)
[2022-10-03] MEDS ORDERED: GLUCAGON 1 MG/VIAL IM PRN (07:27)
[2022-10-03] MEDS: INSULIN -REGULAR HUMAN 50 UNIT/0.5 ML ML SQ SCH ×4 (07:30→21:46)
[2022-10-03] MEDS ORDERED: D10W 250 ML BAG IV PRN (07:46)
[2022-10-03] MEDS ORDERED: HOME MED 1 EA UNK (Levothyroxine Sodium [Levothyroxine] 25 MCG Capsule) PO SCH (09:00)
[2022-10-03] MEDS ORDERED: POTASSIUM CL SA 10 MEQ TAB PO ONE (09:00)
[2022-10-03] MEDS: DULERA 200/5 (MOMETASONE/FORMOTEROL) INHALER IH SCH ×2 (09:40→21:48)
[2022-10-03] MEDS: POTASSIUM CL 8 MEQ PO SCH ×2 (09:58→21:47)
[2022-10-03] MEDS: DEXMETHYLPHENIDATE HCL 40 MG PO SCH (09:59)
[2022-10-03] MEDS: VALSARTAN 160 MG TAB PO SCH (10:00)
[2022-10-03] MEDS: BENZONATATE 100 MG CAP PO PRN ×2 (10:00→17:17)
[2022-10-03] MEDS: PANTOPRAZOLE 40MG TABLET PO SCH (10:00)
[2022-10-03] MEDS: hydroCHLOROthiazide 12.5 MG CAP PO SCH (10:01)
[2022-10-03] MEDS: DULOXETINE 30 MG CAP PO SCH (10:01)
[2022-10-03] MEDS: ARIPiprazole 5 MG TAB PO SCH (10:01)
[2022-10-03] MEDS: FOLIC ACID 1 MG TABLET PO SCH (10:01)
[2022-10-03] MEDS: MONTELUKAST 10 MG TAB PO SCH (10:02)
[2022-10-03] MEDS: EZETIMIBE 10 MG TAB PO SCH (10:02)
[2022-10-03] MEDS: BUPROPION HCL XL 150 MG TAB PO SCH (10:03)
--- NOTE | 2022-10-03 15:30 | PN ---
Date of Progress Note: 10/03/2022 Subjective: The patient was seen this morning for followup. No new complaints problems reported by patient. Lying in bed, not in distress. Overall, she feels better than yesterday and she looks a lo t better today than yesterday. Objective: Vital Signs: Reviewed. HEENT: Unremarkable. Lungs: Clear to auscultation. No wheezing. No rales. Not in any respiratory distress. Heart: Sounds normal. Abdomen: Soft. Bowel sounds normal. No guarding, rigidity, tenderness, distention. Extremities: No leg edema. Laboratory Data: Sodium 136, potassium 3.1, chloride 103, bicarb 23, BUN 15, creatinine 1.29, glucos e 442. Impression: 1.Pneumonia. 2.Acute exacerbation of asthma. 3.Hypokalemia. 4.Hypertension. 5.Impaired fasting glucose. Plan: The patient's overall respiratory condition is much better today than yesterday. She appears lot more comfortable, more energetic today. We will continue current oxygen replacement therapy. Co ntinue current antibiotic and we will go ahead and also continue her IV steroid. Nebulizer treatment and inhaler will be continued as well. Continue current DVT prophylaxis. She does not have type 2 diabetes mellitus, but she has impaired fasting glucose, and her elevated blood glucose is due to IV steroid that we are giving it to her. We will manage it with sliding scale insulin. Ambulation was encouraged and I will see her tomorrow for followup. Replace potassium per protocol. Depending on h er condition tomorrow, we will decide about possible discharge. We will repeat blood work tomorrow morning and a chest x-ray also tomorrow morning. Details and plan of treatment discussed with the yesenia joseph and her . INDER/MODL Voice ID: [id number] Report ID: [id number]
[2022-10-03] MEDS: Levofloxacin 750mg IV 750 MG/150 ML BAG IV SCH (17:13)
[2022-10-03] MEDS: ENOXAPARIN 40 MG/0.4 ML SQ SCH (17:18)
[2022-10-03] MEDS: ATORVASTATIN 20 MG TAB PO SCH (21:45)
[2022-10-03] MEDS: ZOLPIDEM TARTRATE 10 MG TABLET PO SCH (21:45)
[2022-10-04] MEDS: METHYLPREDNISOLONE 40 MG INJ IV SCH ×2 (00:46→08:44)
[2022-10-04] MEDS: ALBUTEROL 2.5 MG/3 ML NEB SOL NEB SCH ×2 (02:00→08:00)
[2022-10-04] MEDS: IPRATROPIUM BROM 0.5MG/2.5ML NEB SCH ×2 (02:00→08:00)
[2022-10-04 06:12] LABS: Magnesium 2.3 mg/dL (1.8-2.4)
[2022-10-04] MEDS: LEVOTHYROXINE SOD 0.025 MG TAB PO SCH (06:28)
[2022-10-04] MEDS: INSULIN -REGULAR HUMAN 50 UNIT/0.5 ML ML SQ SCH ×2 (08:39→11:59)
[2022-10-04] MEDS: DULOXETINE 30 MG CAP PO SCH (08:40)
[2022-10-04] MEDS: DULERA 200/5 (MOMETASONE/FORMOTEROL) INHALER IH SCH (08:40)
[2022-10-04] MEDS: ARIPiprazole 5 MG TAB PO SCH (08:40)
[2022-10-04] MEDS: DEXMETHYLPHENIDATE HCL 40 MG PO SCH (08:41)
[2022-10-04] MEDS: FOLIC ACID 1 MG TABLET PO SCH (08:43)
[2022-10-04] MEDS: VALSARTAN 160 MG TAB PO SCH (08:43)
[2022-10-04] MEDS: POTASSIUM CL 8 MEQ PO SCH (08:43)
[2022-10-04] MEDS: hydroCHLOROthiazide 12.5 MG CAP PO SCH (08:43)
[2022-10-04] MEDS: BUPROPION HCL XL 150 MG TAB PO SCH (08:44)
[2022-10-04] MEDS: MONTELUKAST 10 MG TAB PO SCH (08:44)
[2022-10-04] MEDS: PANTOPRAZOLE 40MG TABLET PO SCH (08:44)
[2022-10-04] MEDS: EZETIMIBE 10 MG TAB PO SCH (08:44)
--- NOTE | 2022-10-04 08:50 | RAD REPORT ---
EXAM DESCRIPTION: RADChest Pa And Lat (2 Views)10/04/2022 8:08 am CLINICAL HISTORY: Cough COMPARISON: October 01, 2022 FINDINGS: Partial resolution in the bilateral pulmonary opacities. Heart is mildly enlarged. Central venous catheter distal superior vena cava/atrial junction
[2022-10-04 11:09] VITALS: O2SAT 97
[2022-10-04 12:10] VITALS: BP 172/74; TEMP 98.6
--- NOTE | 2022-10-27 18:40 | HP ---
Date of Admission: 10/01/2022 Chief Complaint: Cough, congestion, shortness of breath. History Of Present Illness: This is a 62-year-old female patient, who came into office today with he r and reported that she went to [facility] on 09/26/2022 where she was kept overnig ht and was sent to [facility] via ambulance for further management of pneumonia. She came home o n 09/29/2022. The patient says that ever since she came home, she has been taking her antibiotic, bu t she is not feeling any better. She continues to have cough, congestion, shortness of breath with a ny activity. Denies any fever. She feels very weak and tired. After I evaluated her, decision was made to admit to our hospital for further management of this ongoing problem with pneumonia. Allergies: TO PENICILLIN CAUSING RASH, TETRACYCLINE CAUSING, CODEINE CAUSING ITCHING, CEPHALEXIN CAU SING RASH AND ITCHING, BACTRIM CAUSING NAUSEA AND VOMITING, AND NUCYNTA CAUSING RASH AND ITCHING. Medications: List reviewed. Review of Systems: Respiratory: As mentioned above. Constitutional: As mentioned above. All other systems reviewed and negative. Past Medical History: Significant for hypothyroidism, impaired fasting glucose, asthma, obstructive sleep apnea, narcolepsy, hypertension, hyperlipidemia, chronic kidney disease, leg edema, rheumatoid arthritis, thrombocytopenia, and depression. Past Surgical History: Tonsillectomy, cholecystectomy, hysterectomy, hip surgery for avascular necro sis on left hip 03/15/2021 and right hip surgery 04/21/2021. 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 Family History: Father , had mesothelioma. Brother has hyperlipidemia. Sister with high choles terol and lupus. Social History: Negative for smoking and alcohol use. Physical Examination: Vital Signs: At office; blood pressure 138/82, pulse 105, temperature 97.5, respiratory rate 20, nabil ght 212 pounds, height 67 inches. Her oxygen saturation at rest at office was 95% to 97%, but walkin g just about 19 seconds, her oxygen saturation dropped down to 85% and the patient was having shortne ss of breath. General: Awake, alert, oriented, not in distress. HEENT: Head atraumatic, normocephalic. Conjunctivae nonerythematous. Sclerae white. Mouth, no thr ush or edema noted. Ears/Nose, no mass, lesion, discharge noted. Neck: Supple. No JVD, lymph nodes, bruit, thyromegaly noted. Lungs: Presence of crackles noted with some bronchial breath sounds. Not using any accessory muscle s of respiration at rest. Heart: Normal heart sounds, no murmur or gallop. Abdomen: Soft, bowel sounds normal. No guarding, rigidity, tenderness, mass, hepatosplenomegaly, dis tention, or bruit noted. Extremities: No leg edema. No calf tenderness. Skin: No rash, ulcer, cellulitis. Lymphatics: No lymph node enlargement in neck, supraclavicular, infraclavicular region. Neuro: No focal neurological deficit. Chest: Unremarkable. External Genitalia: Deferred. Rectal: Deferred. Laboratory Data: Chest x-ray shows patchy airspace disease. White count 7.2, hemoglobin 9.5, platel ets 371. Sodium 139, potassium 3.7, chloride 108, bicarb 27, BUN 10, creatinine 1.05, glucose 136. Liver function tests unremarkable. COVID-19 test negative. Impression: 1.Pneumonia. 2.Mild persistent asthma, with acute exacerbation. 3.Anemia, unspecified. 4.Hypothyroidism. 5.Impaired fasting glucose. 6.Obstructive sleep apnea. 7.Hypertension. 8.Hyperlipidemia. 9.Depression. Plan: We will admit the patient to hospital for further evaluation and management of this problem. The patient is appropriate for inpatient and is expected to spend 2 midnights in hospital. For hyper tension, we will continue her antihypertensive medication. For asthma, we will go ahead and give her nebulizer treatment and also we will start her on some steroid. For pneumonia, we will start her on antibiotics per order, follow up on culture results. DVT prophylaxis will be given per order. For hyperlipidemia, continue statin therapy per order. Other home medications will be continued as per o rder. We will monitor her blood work, replace electrolyte per protocol, and I will see her tomorrow for followup. Details and plan of treatment discussed with her. INDER/MODL Voice ID: [id number]
--- NOTE | 2022-10-27 20:10 | DS ---
Date of Discharge: 10/04/2022 Discharge Medications And Instructions: 1. Continue all prior home medication. 2. Use Dulera inhaler 2 puffs by mouth 2 times a day until you run out and then start Advair 1 puff by mouth 2 times a day, rinse mouth with water after using the inhaler. 3. Use levofloxacin 1 tablet by mouth daily as prescribed from [facility] prior to this admission. 4. Take prednisone 10 mg. The patient to take 2 tablets by mouth 2 times a day for 4 days, then 2 tablets daily for 4 days, then 1 tablet daily for 4 days, then half tablet daily for 4 days, then stop, take it with food. 5. Benzonatate 100 mg, take 1 capsule by mouth 4 times a day as needed for cough. 6. Follow up at my office next week. Physical Examination: HEENT: Unremarkable. Lungs: Clear to auscultation. Heart: Sounds normal. Abdomen: Soft. Bowel sounds normal. No guarding, rigidity, tenderness, distention. Extremities: No leg edema. Laboratory Data: Initial white count 7.2, hemoglobin 9.5, platelets 371. Sodium 139, potassium 3.7, chloride 108, bicarb 27, BUN 10, creatinine 1.05, glucose 136. On 10/03; sodium 136, potassium 3.1, BUN 15, creatinine 1.29, glucose 442. Today on day of discharge; sodium 138, potassium 4, chloride 108, bicarb 28, BUN 20, creatinine 0.99, glucose 223. Repeat chest x-ray done today shows improvement in bilateral lung opacities. Hospital Course: This is a 62-year-old pleasant female patient, who was admitted to the hospital with cough, congestion, shortness of breath. Please see dictated H and P for more information. After the patient was evaluated at office, she was admitted to the hospital with pneumonia and acute exacerbation of asthma. The patient was given IV antibiotic, oxygen nebulizer treatment, IV steroid, and her home medications were continued. Overall, her condition improved and we were able to discharge her to go home in stable condition with above-mentioned medications and instructions. Final Diagnoses: 1. Pneumonia. 2. Acute exacerbation of mild persistent asthma. 3. Anemia. 4. Hypertension. 5. Hyperlipidemia. 6. Impaired fasting glucose. 7. Hypothyroidism. 8. Depression. INDER/MODL Voice ID: [id number] Report ID: [id number] [facility]ITALMolly
== END 2022-10-04 12:53 | disposition home or self-care (01) | DRG 194 ==
LOC: 4TH 15:25
PROVIDERS: ADMIT Internal Medicine; ATTEND Internal Medicine
DX: J18.9 Pneumonia, unspecified organism (principal); J45.31 Mild persistent asthma with (acute) exacerbation; E03.9 Hypothyroidism, unspecified; I12.9 Hypertensive chronic kidney disease with stage 1 through stage 4 chronic kidney disease, or unspecified chronic kidney disease; N18.9 Chronic kidney disease, unspecified; M06.9 Rheumatoid arthritis, unspecified; E78.5 Hyperlipidemia, unspecified; D64.9 Anemia, unspecified; F32.A Depression, unspecified; G47.33 Obstructive sleep apnea (adult) (pediatric); R73.01 Impaired fasting glucose; Z88.0 Allergy status to penicillin; Z88.5 Allergy status to narcotic agent; Z88.1 Allergy status to other antibiotic agents; Z88.8 Allergy status to other drugs, medicaments and biological substances; Z90.49 Acquired absence of other specified parts of digestive tract; Z90.710 Acquired absence of both cervix and uterus; Z20.822 Contact with and (suspected) exposure to COVID-19
CPT/HCPCS: 36415; 71046; 80048; 80053; 82805; 82947; 83735; 85025; 87811; J1650; J1815; J2920; J3535; J7613; J7644

== ENCOUNTER 2022-11-13 13:53 | Emergency (ER) | payer BC, OTHER ==
--- OUTSIDE RECORDS SUMMARY | 2022-11-13 14:08 | XMS REPORT | Continuity of Care Document ---
:1960 Author Organization [facility] t Address [address] [place] [address] Care Team Providers Name Role Phone Joshua Garcia Primary Care Physician Felix Bliss Attending Clinician Unavailable JOAQUIM PARRISH Attending Clinician Unavailable Mary Ryan MA Attending Clinician Unavailable MADISON_Zhou_Baldemar_ Attending Clinician Unavailable Cortney Cerda MA Attending Clinician Unavailable Doctor Unassigned, [place] Attending Clinician Unavailable Raphael Padilla RN Attending Clinician Unavailable MIKA SONI Attending Clinician Unavailable Mika Soni MD Attending Clinician Deuce Lopez MD Attending Clinician Lolly Allen MA Attending Clinician Unavailable Carlos Travis MD Attending Clinician [phone] Chase Peters RN Attending Clinician Unavailable Remi Garcia MD Attending Clinician Doc Mccabe DO Attending Clinician [phone] Felix Bliss Attending Clinician [phone] Baldemar Epperson Attending Clinician [phone] MADISON_Chani Attending Clinician Unavailable Ninfa Del Cid MD Attending Clinician Baldemar Epperson Attending Clinician Unavailable Akiko Luong MA Attending Clinician Unavailable Mayco Langford MD Attending Clinician Deny Oneal Attending Clinician Unique Burks MD Attending Clinician MD MAYCO LANGFORD Attending Clinician Unavailable Yahir Hendrix Attending Clinician Unavailable Carroll Avendano MA Attending Clinician Unavailable Edwige SCHMIDT, Royce Suazo Attending Clinician Steve Townsend MD Attending Clinician ADULT, THROMBOSIS Attending Clinician Unavailable Robert Antony MD Attending Clinician Marissa Gamboa Attending Clinician Deon Bella MD Attending Clinician Provider, Unknown Attending Clinician Unavailable Lab, Adc Fam Pob I Attending Clinician Unavailable Max Bowser Attending Clinician MAX MENDEZ Attending Clinician Unavailable LUCAS MCKEON M.D. Attending Clinician Unavailable MD ROYCE GIBBONS Attending Clinician Unavailable SIL RAGLAND Attending Clinician Unavailable KARIN HAYWARD M.D. Attending Clinician Unavailable ELIOT ROPER M.D. Attending Clinician Unavailable Felix Bliss Admitting Clinician Unavailable Martha Admitting Clinician Unavailable MIKA SONI Admitting Clinician Unavailable Mika Soni MD Admitting Clinician MADISON_Chani Admitting Clinician Unavailable Baldemar Epperson Admitting Clinician Unavailable Yahir Hendrix Admitting Clinician Unavailable MAYCO LANGFORD Admitting Clinician Unavailable MD MAYCO LANGFORD Admitting Clinician Unavailable UNDEFINED Admitting Clinician Unavailable ROYCE GIBBONS Admitting Clinician Unavailable MD ROYCE GIBBONS Admitting Clinician Unavailable Payers Payer Name Policy Type Policy Number Effective Date Expiration Date S ource BCBSTX PPO [id number] 2016 00:00:00 [place] [id number] 2016 [place]:00 [place] [id number] 2017 [employer] 00:00:00 Problems Condition Condition Condition Status Onset Resolution Last Treating Co mments Source Name Details Category Date Date Treatment Clinician Date Arthrofibr Arthrofibr Problem Active 2021-11 A zalea osis osis 1-30 Orthope 00:00: dic 00 Sports Medicin e Coronary Coronary Disease Active 2021-11 Overview: Un raymundo artery artery 11-28 Formattin ity of disease disease 00:00: g of this [place] involving involving 00 note Medi [place] might be Branch coronary coronary different artery of artery of from [place] original. heart heart 2019:S[place] without without nary angina angina Findings pectoris pectoris Diagnosti c Dominance : LeftLeft Anterior Descendin g: Prox LAD lesion is 30% stenosed. CAP CAP Disease Active 2021-11 Univers (community (community - it y of acquired acquired 00:00: [place] pneumonia) pneumonia) 00 Me dical Branch SOB [...] Medicin e Osteoarthr Osteoarthr Problem Active A zalesantosh itis of itis of 7-12 Orthope hip Hip 00:00: dic 00 Sports Medicin e CAD in CAD in Disease Active Methodi [place] 6-15 st artery artery 00:00: Hospita 00 l Stenosis Stenosis Problem Active Azale a of spinal of Spinal 6-01 Orth ope canal due Canal Due 00:00: dic to bone to Bone 00 Sports Medicin e Stenosis Stenosis Problem Active [place]ale a of spinal of Spinal 6-01 Orth ope canal due Canal Due 00:00: dic to to 00 Sports connective Connective Me dicin tissue Tissue e 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 5-21 Orthop e of head of Head 00:00: dic AND/OR AND/OR 00 Sports neck of Neck of Medicin femur Femur e Implantati Implantati Problem Active A jose on of on of -21 Orthope joint Joint 00:00: dic prosthesis Prosthesis 00 Sp orts Medicin e Situation Situation Problem Active Aza yeni with with 5-21 Orthope explicit Explicit 00:00: dic context Context 00 Sports Medicin e Hypertensi Hypertensi Problem Active A jose ve ve 4-27 Orthope disorder Disorder 00:00: [...] Added automatic ally from request for surgery [id number] Fatty Fatty Disease Active Univers liver liver [...] 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 9 Orthope 00:00: dic 00 Sports Medicin e Palpitatio Palpitatio Disease Active M ethodi ns ns 07-28 st 00:00: Hospita 00 l SOB SOB Disease Active Methodi (shortness (shortness 4 st of breath) of breath) 00:00: Ho [...] Active Overview: Methodi of anus of anus 03-08tin 00:00: g of this Hospita 00 note [...] Active Overview: Method i depressive depressive 03-08 st disorder, disorder, 00:00: g of this [...] Carpal Carpal Problem Active Nathalie tunnel Tunnel 9 Orthope syndrome Syndrome 00:00: dic 00 Sports Medicin e Synovitis Synovitis Problem Active Aza yeni 9-17 Orthope 00:00: dic 00 Sports Medicin e [...] Uni vers INGREDI 11-28 ity of 00:00: [place] 00 Medical Branch PENICILL DRUG Active Rash 2021-11 Univers IN INGREDI 11-28 ity of 00:00: [place] 00 Medical Branch TETRACYC DRUG Active Anaphylaxis 2021-11 Uni vers LINE INGREDI 11-28 ity of 00:00: [place] 00 Medical Branch Cephalos Propensi Active Unknown - 2021-11 Anaphylac Univers porins ty to See comments - tic ity of adverse 00:00: Reaction [place] reaction 00 Medical s Branch Codeine Propensi Active Unknown - 2021-11 Univ ers ty to See comments 11-28 ity of adverse 00:00: [place] reaction 00 Medical s Branch Penicill Propensi Active Rash 2021-11 Univer s in ty to 11-28 ity of adverse 00:00: [place] reaction 00 Medical s Branch Tetracyc Propensi Active Anaphylaxis 2022-1 U nivers line ty to 1-19 ity of adverse 00:00: [place] reaction 00 Medical s Branch Penicill DA Active SV RASH 2021-0 [facility] ins 07-04 [place] 00:00: Orthope 00 dic Hospita l Cephalos DA Active SV ANAPHYLAXIS 2021-0 [facility] porins 07-04 [place] 00:00: Orthope 00 dic Hospita l codeine DA Active SV ITCHING 2021-0 [facility] 07-04 [place] 00:00: Orthope 00 dic Hospita l tetracyc DA Active SV ANAPHYLAXIS 2021-0 [facility] line 07-04 [place] 00:00: Orthope 00 dic Hospita l adhesive DA Active SV RASH,BLISTER 2021-0 HC A tape S 07-04 [place] 00:00: Orthope 00 dic Hospita l latex DA Active MO BLISTERING; [facility] RASH 07-04 [place] 00:00: Orthope 00 dic Hospita l Cephalos DA Active SV ANAPHYLAXIS 2020-0 [facility] porins 07-09 [facility] 00:[facility]: Hospita 00 l of [place] codeine DA Active SV ITCHING 2020-0 [facility] 07-09 [facility] 00:[facility]: Hospita 00 l of [place] tetracyc DA Active SV ANAPHYLAXIS 2020-0 [facility] line 07-09 [facility] 00:00: Hospita 00 l of [place] adhesive DA Active SV RASH,BLISTER 2020-0 HC A tape S 07-09 [facility] 00:00: Hospita 00 l of [place] latex DA Active MO BLISTERING; 2020-0 [facility] RASH 07-09 [facility] 00:00: Hospita 00 l of [place] Penicill DA Active SV 2020-0 [facility] ins 07-09 [facility] 00:00: Hospita 00 l of [place] Cephalos DA Active SV 2020-0 [facility] porins 830 [facility] 00:00: Hospita 00 l of [place] codeine DA Active SV 1-0 [facility] 8-30 [facility] 00:00: Hospita 00 l of [place] tetracyc DA Active SV 1-0 [facility] line 830 Woman[facility] 00:00: Hospita 00 l of [place] adhesive DA Active SV 2020-0 [facility] tape 830 [facility] 00:00: Hospita 00 l of [place] latex DA Active MO 1-0 [facility] 8-30 [facility] 00:00: Hospita 00 l of [place] Penicill DA Active SV RASH 2020-0 [facility] ins 8-30 [facility] 00:00: Hospita 00 [facility] STEROID DA Active SV DEPRESSION 2020-0 [facility] 8-26 Woman's 00:00: Hospita 00 [facility] Penicill DA Active SV 1-0 [facility] ins 7-12 Clear 00:00: [place] Cephalos DA Active SV 1-0 [facility] porins 7-12 Clear 00:00: [place] [facility] codeine DA Active SV 1-0 [facility] 7-12 Clear 00:00: [place] [facility] tetracyc DA Active SV 2020-0 [facility] line 7-12 Clear 00:00: [place] [facility] adhesive DA Active SV 2020-0 [facility] tape 7-12 Clear 00:00: [place] [facility] Penicill DA Active SV RASH 2020-0 [facility] ins 7-12 Clear 00:00: [place] [facility] Cephalos DA Active SV ANAPHYLAXIS 2020-0 [facility] porins 7-12 Clear 00:00: [place] [facility] codeine DA Active SV ITCHING 2020-0 [facility] 7-12 Clear 00:00: [place] [facility] tetracyc DA Active SV ANAPHYLAXIS 2020-0 [facility] line 7-12 Clear 00:00: [place] [facility] adhesive DA Active SV RASH,BLISTER 2020-0 HC A tape S 7-12 Clear 00:00: [place] [facility] adhesive DA Active SV 1-0 [facility] tape 6-18 Clear 00:00: [place] [facility] STEROID DA Active SV MENTAL 2020-0 [facility] ISSUES 6-18 Clear 00:00: [place] [facility] adhesive DA Active SV RASH,BLISTER 2020-0 HC A tape S 6-18 Clear 00:00: [place] [facility] Penicill DA Active SV 1-0 [facility] ins 5-06 Clear 00:00: [place] [facility] Cephalos DA Active SV 1-0 [facility] porins 5-06 Clear 00:00: [place] [facility] codeine DA Active SV 2021-0 [facility] 5-06 Clear 00:00: [place] [facility] tetracyc DA Active SV 1-0 [facility] line 5-06 Clear 00:00: [place] latex DA Active MO 2020-0 [facility] 5-06 Clear 00:00: [place] Penicill DA Active SV RASH 2020-0 [facility] ins 5-06 Clear 00:00: [place] [facility] Cephalos DA Active SV ANAPHYLAXIS 2020-0 [facility] porins 5-06 Clear 00:00: [place] [facility] codeine DA Active SV ITCHING 2020-0 [facility] 5-06 Clear 00:00: [place] [facility] tetracyc DA Active SV ANAPHYLAXIS 2020-0 [facility] line 5-06 Clear 00:00: [place] [facility] latex DA Active MO BLISTERING; 2020- [facility] RASH 5-06 Clear 00:00: [place] [facility] Cephalos DA Active SV 2020-0 [facility] porins 4-30 Clear 00:00: [place] [facility] Cephalos DA Active SV ANAPHYLAXIS 2020-0 [facility] porins 4-30 Clear 00:00: [place] [facility] tetracyc DA Active SV ANAPHYLAXIS 2020-0 [facility] line 4-30 Clear 00:00: [place] [facility] latex DA Active MO BLISTERING; [facility] RASH 4-30 Clear 00:00: [place] [facility] tetracyc DA Active SV 2020-0 [facility] line 4-30 Clear 00:00: [place] [facility] latex DA Active MO 2020-0 H[facility] 4-30 Clear 00:00: [place] [facility] Adhesive Propensi Active Rash 2019- Port site Met hodi ty to 0-16 [...] 00 Sports Medicin e Codeine Allergy Active 2017- Nathalie to 07-29 Orthope substanc 00:00: dic [...] to drug Eszopicl Propensi Active Other (See 0 Metallic Methodi one ty to Comments) 3-15 [...] 2015- M ethodi line ty to 03-02 st adverse 00:00: Hospita reaction 00 l s to drug Cephalos Propensi Active Anaphylaxis 2015-0 Most M ethodi porins ty to 03-02 [...] SV [facility] ins 08-06 Clear 00:00: [place] 00 [facility] Penicill DA Active SV RASH [facility] ins 08-06 Clear 00:00: [place] 00 [facility] codeine DA Active SV ITCHING [facility] 08-06 Clear 00:00: [place] [facility] codeine DA Active SV [facility] 9-27 Clear 00:00: [place] 00 [facility] PENICILL Allergy Active Nathalie IN to 17 Orthope substanc 00:00: dic e 00 Sports [...] Active Univers ALLERGIE Class ity of S [place] [facility] Family History Family Member Diagnosis [...] deep venous thrombosis Natural brother Drug abuse [facility] Natural father Cancer [facility] Natural mother Depression [facility] Paternal COPD [facility] Hy[facility] Social History Social Habit Start Date Stop Date Quantity Comments Source Exposure to Not sure University of SARS-CoV-2 [facility] (event) Branch History SDOH Christianity Alcohol Frequency Hospita l History SDOH [facility] Alcohol Std Hospital Drinks History SDOH [facility] Alcohol Binge Hospital Alcohol intake 2022-09-17 2022-09-17 Current drinker [facility] 00:00:00 00:00:00 of alcohol Hospital (finding) Tobacco use and 2022-08-14 2022-08-14 Smokeless tobacco [facility] exposure 00:00:00 00:00:00 non-user Hospital Alcohol Comment 2021-08-06 2021-08-06 pt states about 4 [facility] 00:00:00 00:00:00 drinks a month Hospital Sex Assigned At [birth year] [facility] 00:00:00 00:00:00 Hospital Smoking Status Start Date Stop Date Source Never Smoker [facility] Medications Ordered Filled Start Stop Current Ordering Indication Dosage Frequency Signature Comments Components Source Medication Medication Date Date Medication? Clinician (SIG) Name Name bisoprolol 2021-11- Yes 5mg QD Take 1 Meth анна (ZEBETA) 5 2-27 12-28 tablet (5 st MG tablet 00:00: 05:59 mg total) Ho spita 00 :00 by mouth l daily. predniSONE 2021-11 Yes [id number] 40mg Take 2 Univers 20 mg 1-21 tablets by ity of tablet 00:00: mouth in [place] the Medical morning. Branch predniSONE 2021-11 Yes [id number] 40mg Take 2 Univers 20 mg 1-21 tablets by ity of tablet 00:00: mouth in [place] the Medical morning. Branch predniSONE 2021-11 Yes [id number] 40mg Take 2 Univers 20 mg 1-21 tablets by ity of tablet 00:00: mouth in [place] the Medical morning. Branch fluticasone 2021-11 Yes 2{puff} 2 Puff, Univers propionate 1-20 Inhalation ity of (FLOVENT 15:30: , Q12H, [facility]) 220 00 First dose Medic al mcg/actuati on Fri Branch on inhaler 09/29/22 2 Puff at 0930, Until Discontinu ed, Routine
Is this order for a patient with suspected or confirmed COVID-19 infection? No
Does this order have Pulmonary/ Critical Care approval? Yes predniSONE 2021-11- Yes 40mg 40 mg, Univ ers (DELTASONE) -10-02 Oral, ity of tablet 40 15:30: 14:59 DAILY, 3 [place] as mg 00 :00 doses, Medical First dose Branch on Fri09/29/22 at 0930, Last dose on Fri10/01/22 at 0900, Routine ezetimibe 2021-11 Yes 10mg Take 10 mg Un raymundo 10 mg 1-20 by mouth ity of tablet 15:19: in the [place] morning. Medical Branch montelukast 2021-11 Yes 10mg Take 10 mg Univers 10 mg 1-20 by mouth. ity of tablet 15:19: [place] Medical [facility] levothyroxi 2021-11 Yes 50ug Take 50 Uni vers ne (LEVO-T) 1-20 mcg by ity of 50 mcg 15:19: mouth [place] tablet 26 every Medical morning. Branch nebivoloL 2021-11 Yes 5mg Take 5 mg Uni vers (BYSTOLIC) 1-20 by mouth ity o f 5 mg tablet 15:19: in the [place] [address] morning. Medical Branch prazosin 1 2021-11 Yes 1mg Take 1 mg Un raymundo mg capsule 1-20 by mouth ity o f 15:19: every 8 [place] [address] (eight) Medical hours. Branch zolpidem 2021-11 Yes 10mg Take 10 mg Uni vers (AMBIEN) 10 1-20 by mouth ity of mg tablet 15:19: at bedtime [facility] Medical for Branch Insomnia. DULoxetine 2021-11 Yes 120mg Take 120 Un raymundo 60 mg CDRS 1-20 mg by ity of 15:19: mouth. [place] [address] Medical Branch ARIPIPRAZOL 2021-11 Yes 5mg Take 5 mg U nivers E ORAL 1-20 by mouth. ity of 15:19: [place] [address] Medical Branch BUPROPION 2021-11 Yes 150mg Take 150 Uni vers HCL ORAL 1-20 mg by ity of 15:19: mouth. [place] [address] Medical Branch omeprazole 2021-11 Yes 40mg Take 40 mg U nivers 20 mg 1-20 by mouth ity of capsule 15:19: in the [place] [address] morning. Medical Branch ondansetron 2021-11 Yes 4mg Take 4 mg U nivers (ZOFRAN) 4 1-20 by mouth ity o f mg tablet 15:19: every 8 [place] [address] (eight) Medical hours as Branch needed. rosuvastati 2021-11 Yes Take by Uni vers n (CRESTOR) 1-20 mouth ity of 5 mg tablet 15:19: daily. [address] Branch hydroxychlo 2021-11 Yes 200mg Take 200 U nivers roquine 1-20 mg by ity of sulfate 15:19: mouth 2 [place] [facility] Medical OROQUINE times Branch ORAL) daily. ezetimibe 2021-11 Yes 10mg Take 10 mg Un raymundo 10 mg 1-20 by mouth ity of tablet 15:19: in the [place] [address] morning. Medical Branch montelukast 2021-11 Yes 10mg Take 10 mg Univers 10 mg 1-20 by mouth. ity of tablet 15:19: [place] [address] Medical Branch levothyroxi 2021-11 Yes 50ug Take 50 Uni vers ne (LEVO-T) 1-20 mcg by ity of 50 mcg 15:19: mouth [facility] 26 every Medical morning. Branch nebivoloL 2021-11 Yes 5mg Take 5 mg Uni vers (BYSTOLIC) 1-20 by mouth ity o f 5 mg tablet 15:19: in the [facility] morning. Medical Branch prazosin 1 2021-11 Yes 1mg Take 1 mg Un raymundo mg capsule 1-20 by mouth ity o f 15:19: every 8 [place] [address] (eight) Medical hours. Branch zolpidem 2021-11 Yes 10mg Take 10 mg Uni vers (AMBIEN) 10 1-20 by mouth ity of mg tablet 15:19: [place] needed Medical for Branch Insomnia. DULoxetine 2021-11 Yes 120mg Take 120 Un raymundo 60 mg CDRS 1-20 mg by ity of 15:19: mouth. [place] [address] Medical Branch ARIPIPRAZOL 2021-11 Yes 5mg Take 5 mg U nivers E ORAL 1-20 by mouth. ity of 15:19: [place] [address] Medical Branch BUPROPION 2021-11 Yes 150mg Take 150 Uni vers HCL ORAL 1-20 mg by ity of 15:19: mouth. [place] [address] Medical Branch omeprazole 2021-11 Yes 40mg Take 40 mg U nivers 20 mg 1-20 by mouth ity of capsule 15:19: in the [place] [address] morning. Medical Branch ondansetron 2021-11 Yes 4mg Take 4 mg U nivers (ZOFRAN) 4 1-20 by mouth ity o f mg tablet 15:19: every 8 [place] [address] (eight) Medical hours as Branch needed. rosuvastati 2021-11 Yes Take by Uni vers n (CRESTOR) 1-20 mouth ity of 5 mg tablet 15:19: daily. [place] [address] Medical Branch hydroxychlo 2021-11 Yes 200mg Take 200 U nivers roquine 1-20 mg by ity of sulfate 15:19: mouth 2 [place] (HYDROXYCHL (two) Medical OROQUINE times Branch ORAL) daily. ezetimibe 2021-11 Yes 10mg Take 10 mg Un arymundo 10 mg 1-20 by mouth ity of tablet 15:19: in the [place] [address] morning. Medical Branch montelukast 2022-1 Yes 10mg Take 10 mg Univers 10 mg 1-20 by mouth. ity of tablet 15:19: [place] [address] Medical Branch levothyroxi 2021-11 Yes 50ug Take 50 Uni vers ne (LEVO-T) 1-20 mcg by ity of 50 mcg 15:19: mouth [place] tablet 26 every Medical morning. Branch nebivoloL 2021-11 Yes 5mg Take 5 mg Uni vers (BYSTOLIC) 1-20 by mouth ity o f 5 mg tablet 15:19: in the [facility] morning. Medical Branch prazosin 1 2021-11 Yes 1mg Take 1 mg Un raymundo mg capsule 1-20 by mouth ity o f 15:19: every 8 [place] [address] (eight) Medical hours. Branch zolpidem 2021-11 Yes 10mg Take 10 mg Uni vers (AMBIEN) 10 1-20 by mouth ity of mg tablet 15:19: at bedtime [facility] 26 as needed Medical for Branch Insomnia. DULoxetine 2021-11 Yes 120mg Take 120 Un raymundo 60 mg CDRS 1-20 mg by ity of 15:19: mouth. [place] [address] Medical Branch ARIPIPRAZOL 2021-11 Yes 5mg Take 5 mg U nivers E ORAL 1-20 by mouth. ity of 15:19: [place] [address] Medical Branch BUPROPION 2021-11 Yes 150mg Take 150 Uni vers HCL ORAL 1-20 mg by ity of 15:19: mouth. [place] [address] Medical Branch omeprazole 2021-11 Yes 40mg Take 40 mg U nivers 20 mg 1-20 by mouth ity of capsule 15:19: in the [place] [address] morning. Medical Branch ondansetron 2021-11 Yes 4mg Take 4 mg U nivers (ZOFRAN) 4 1-20 by mouth ity o f mg tablet 15:19: every 8 [place] [address] (eight) Medical hours as Branch needed. rosuvastati 2021-11 Yes Take by Uni vers n (CRESTOR) 1-20 mouth ity of 5 mg tablet 15:19: daily. [address] Branch hydroxychlo 2021-11 Yes 200mg Take 200 U nivers roquine 1-20 mg by ity of sulfate 15:19: mouth 2 [place] (HYDROXYCHL (two) Medical OROQUINE times Branch ORAL) daily. rosuvastati 2022-1 Yes 5mg 5 mg, Unive rs n (CRESTOR) 1-20 Oral, ity of tablet 5 mg 15:00: [place] First [place] Medical on [facility] 09/29/22 at 0900, Until Discontinu ed, Routine omeprazole 2021-11 Yes 40mg 40 mg, Unive rs (PRILOSEC) 1-20 Oral, ity of capsule 40 15:00: DAILY, [place] mg 00 First dose Medical on [facility] 09/29/22 at 0900, Until Discontinu ed, Routine montelukast 2021-11 Yes 10mg 10 mg, Univ ers (SINGULAIR) 1-20 Oral, ity of tablet 10 15:00: DAILY, [place] mg 00 First dose Medical on [facility] 09/29/22 at 0900, Until Discontinu ed, Routine ezetimibe 2021-11 Yes 10mg 10 mg, Univer s (ZETIA) 1-20 Oral, ity of tablet 10 15:00: DAILY, [place] mg 00 First dose Medical on [facility] 09/29/22 at 0900, Until Discontinu ed, Routine ARIPiprazol 2021-11 Yes 5mg 5 mg, Unive rs e (ABILIFY) 1-20 Oral, ity of tablet 5 mg 15:00: DAILY, [place] First dose Medical on [facility] 09/29/22 at 0900, Until Discontinu ed levothyroxi 2021-11 Yes 50ug 50 mcg, Uni vers ne 1-20 Oral, ity of (SYNTHROID) 12:00: QAM-0600, [place] tablet 50 00 First dose Medi nikos mcg on [facility] 09/29/22 at 0600, Until Discontinu ed, Routine levoFLOXaci 2021-11 Yes 750mg 750 mg, IV Univers n in D5W -20 Piggyback, ity o f (LEVAQUIN) 06:00: Q24H ABX, [place] mg/150 00 First dose Med ical mL on [facility] Piggyback 09/29/22 750 mg at 0000, Until Discontinu ed, Administer over 90 Minutes, 150 mL
Reas on for Anti-Infec tive: Empiric Therapy for Suspected Infection< br>Empiric Therapy Site: Respirator y
Durat ion of therapy: 72 hours hydrOXYchlo 2021-11 Yes 200mg 200 mg, Un raymundo roQUINE 1-20 Oral, BID, ity of (PLAQUENIL) 02:00: First dose [place] tablet 200 00 on Sat Medical mg 09/28/22 Branch at 1999, Until Discontinu ed
Gerri cation: Rheumatic disorder Fluticasone 2021-11 Yes [id number] 1{puff} Inhale 1 Univers -Salmeterol 1-20 Puff every it y of (ADVAIR 00:00: 12 [place] DISKUS) 00 (twelve) Medical 500-50 hours. Branch mcg/dose inhalation disk benzonatate 2021-11 Yes [id number] 100mg Take 1 Univers 100 mg 1-20 capsule by ity of capsule 00:00: mouth [place] 00 every 8 Medical (eight) Branch hours. guaiFENesin 2021-11 Yes [id number] 600mg Take 1 Univers (MUCINEX) 1-20 tablet by ity o f 600 mg 00:00: mouth [place] tablet 00 every 12 Medical (twelve) Branch hours. Fluticasone 2021-11 Yes [id number] 1{puff} Inhale 1 Univers -Salmeterol 1-20 Puff every it y of (ADVAIR 00:00: 12 [place] DISKUS) 00 (twelve) Medical 500-50 hours. Branch mcg/dose inhalation disk benzonatate 2021-11 Yes [id number] 100mg Take 1 Univers 100 mg 1-20 capsule by ity of capsule 00:00: mouth [place] 00 every 8 Medical (eight) Branch hours. guaiFENesin 2021-11 Yes [id number] 600mg Take 1 Univers (MUCINEX) 1-20 tablet by ity o f 600 mg 00:00: mouth [place] tablet 00 every 12 Medical (twelve) Branch hours. Fluticasone 2021-11 Yes [id number] 1{puff} Inhale 1 Univers -Salmeterol 1-20 Puff every it y of (ADVAIR 00:00: 12 [place] DISKUS) 00 (twelve) Medical 500-50 hours. Branch mcg/dose inhalation disk benzonatate 2021-11 Yes [id number] 100mg Take 1 Univers 100 mg 1-20 capsule by ity of capsule 00:00: mouth [place] 00 every 8 Medical (eight) Branch hours. guaiFENesin 2021-11 Yes [id number] 600mg Take 1 Univers (MUCINEX) -20 tablet by ity o f 600 mg 00:00: mouth [place] tablet 00 every 12 Medical (twelve) Branch hours. levoFLOXaci 2021-11- Yes [id number] 750mg Take 1.5 Univers n 500 mg -20 - tablets by ity of tablet 00:00: 05:59 mouth [place] 00 :00 every 24 Medical (twenty-fo Branch ur) hours for 5 days. levoFLOXaci 2021-11- Yes [id number] 750mg Take 1.5 Univers n 500 mg -10-05 tablets by ity of tablet 00:00: 05:59 mouth [place] 00 :00 every 24 Medical (twenty-fo Branch ur) hours for 5 days. enoxaparin 2021-11 Yes 40mg 40 mg, Unive rs (LOVENOX) 11-28 Subcutaneo ity of injection 23:00: [place], [place] 40 mg 00 First dose Medical on [facility] Branch 09/28/22 at 1700, Until Discontinu ed, Routine lidocaine 2021-11- No 1{patch 1 Patch, Univers (LIDODERM) 11-28 } Topical, ity of 5 % (700 22:30: 11:12 Administer [place] mg/patch) 00 :00 over 12 Medical patch 1 Hours, Branch Patch ONCE, 1 dose, On [facility] 09/28/22 at 1630, Routine HYDROcodone 2021-11 Yes 1{tbl} 1 tablet, Univers -acetaminop 11-28 Oral, ity of hen (NORCO 22:18: Q6HPRN, [place] 5) 5-325 mg 59 Starting Medi nikos tablet 1 on [facility] Branch tablet 09/28/22 at 1618, Until Discontinu ed, Routine, Pain (scale 7-10) buPROPion 2021-11 Yes 150mg 150 mg, Univ ers XL 11-28 Oral, ity of (WELLBUTRIN 21:45: DAILY, [place] XL[place] tablet 00 First dose Med ical 150 mg (after Branch last modificati on) on 09/28/22 at 1545, Until Discontinu ed DULoxetine 2021-11 Yes 60mg 60 mg, Unive rs (CYMBALTA) 11-28 Oral, ity of capsule 60 21:45: DAILY, [place] mg 00 First dose Medical on [facility] 09/28/22 at 1545, Until Discontinu ed albuterol 2021-11 Yes 2{puff} 2 Puff, Un raymundo (VENTOLIN) 11-28 Inhalation ity of inhaler 2 21:43: , Q4HPRN, [place] as Puff 13 Starting Medical on [facility] 09/28/22 at 1543, Until Discontinu ed, Routine, Wheezing, Shortness of Breath ipratropium 2021-11 Yes 3mL 3 mL, Unive rs -albuteroL 11-28 Inhalation ity of (DUONEB) 17:30: , Q4H, [place] 0.5 mg-3 00 First dose Medic al mg(2.[address] [facility] base)/3 mL 09/28/22 nebulizer at 1130, solution 3 Until mL Discontinu ed, Routine guaiFENesin 2021-11 Yes 200mg 200 mg, Un raymundo 100 mg/5 mL 11-28 Oral, ity of solution 17:27: Q6HPRN, [place] 200 mg 27 Starting Medical on [facility] 09/28/22 at 1127, Until Discontinu ed, Routine, Cough acetaminoph 2021-11 Yes 650mg 650 mg, Un raymundo en 11-28 Oral, ity of (TYLENOL) 17:27: Q6HPRN, [place] tablet 650 27 Starting Medic al mg on [facility] 09/28/22 at 1127, Until Discontinu ed, Routine, Pain (scale 1-3) ezetimibe 2021-11- Yes 10mg QD Take 1 Metho di (ZETIA) 10 11-20 11-12 tablet (10 st mg tablet 00:00: 05:59 mg total) Ho spita 00 :00 by mouth l daily. ezetimibe 2021-11- Yes 10mg QD Take 1 Metho di (ZETIA) 10 - 11-12 tablet (10 st mg tablet 00:00: [...] 17 by mouth l coated daily. tablet montelukast 2021-11 Yes 10mg QD Take 10 [...] M ethodi -hydrochlor 0-11 10-12 tablet by otidazid 00:00: 04:59 mouth Hospita (Micardis 00 :00 daily. l HCT) 80-12.5 mg per tablet telmisartan 2021-11- Yes 1{tbl} QD Take 1 M ethodi -hydrochlor 0-11 10-12 tablet by otidazid 00:00: 04:59 mouth Hospita (Micardis 00 :00 daily. l HCT) 80-12.5 mg per tablet enalapril 2021-11- No 10mg QD Take 1 Metho di (VASOTEC) 0-11 11-11 tablet (10 st 10 MG 00:00: 05:59 mg total) Hospit a tablet 00 :00 by mouth l daily for 30 days. enalapril 2021-11 No 10mg QD Take 1 Metho di (VASOTEC) 0-11 11-11 tablet (10 st 10 MG 00:00: 05:59 mg total) Hospit a tablet 00 :00 by mouth l daily for 30 days. furosemide 2021-11 No 40mg Q.5D Take 1 Meth анна (LASIX) 40 0-11 10-26 tablet (40 st mg tablet 00:00: 00:00 mg total) Ho spita 00 :00 by mouth 2 l (two) times a day for 30 days. furosemide 2021-11 No 40mg Q.5D Take 1 Meth анна (LASIX) 40 0-11 10-26 tablet (40 st mg tablet 00:00: 00:00 mg total) Ho spita 00 :00 by mouth 2 l (two) times a day for 30 days. nebivoloL 2021-11 Yes 10mg QD Take 1 Method i (BYSTOLIC) 0-05 tablet (10 st 10 MG 00:00: mg total) Hospita tablet 00 by mouth l daily. nebivoloL 2021-11 Yes 10mg QD Take 1 Method i (BYSTOLIC) 0-05 tablet (10 st 10 MG 00:00: mg total) Hospita tablet 00 by mouth l daily. atorvastati 2021-11 No 20mg QD Take 1 Met hodi n (LIPITOR) 0-05 10-06 tablet (20 s t 20 mg 00:00: 04:59 mg total) Hospit a tablet 00 :00 by mouth l daily. Default OP ins atorvastati 2021-11 No 20mg QD Take 1 Met hodi n (LIPITOR) 0-05 10-06 tablet (20 s t 20 mg 00:00: 04:59 mg total) Hospit a tablet 00 :00 by mouth l daily. Default OP ins amLODIPine 2021-11 No 5mg QD Take 1 Meth анна (NORVASC) 5 0-05 10-11 tablet (5 st mg tablet 00:00: 00:00 mg total) Ho spita 00 :00 by mouth l daily. amLODIPine 2022-1 2022- No 5mg QD Take 1 Meth анна (NORVASC) 5 0-05 10-11 tablet (5 st mg tablet 00:00: 00:00 mg total) Ho spita 00 :00 by mouth l daily. famotidine No 40mg QD Take 1 Meth анна (PEPCID) 40 04-30-22 tablet (40 s t MG tablet 00:00: 04:59 mg total) Ho spita 00 :00 by mouth l nightly as needed for heartburn for up to 30 days. famotidine No 40mg QD Take 1 Meth анна (PEPCID) 40 04-30 tablet (40 s t MG tablet 00:00: 04:59 mg total) Ho spita 00 :00 by mouth l nightly as needed for heartburn for up to 30 days. triamcinolo 2021- No Q.5D Apply Meth анна ne 04-[address] (KENALOG) 00:00: 04:59 2 (two) Hosp symone 0.1 % cream 00 :00 times a l day for 10 days. triamcinolo 2021- No Q.5D Apply Meth анна ne 04-[address] (KENALOG) 00:00: 04:59 2 (two) Hosp symone 0.1 % cream 00 :00 times a l day for 10 days. zolpidem 2020-11 No 10mg QD Take 10 mg Me [facility]odi (AMBIEN) 10 008-[address] mg tablet 15:08: 00:00 nightly. [facility] [place] 58 :00 zolpidem l 10 mg tablet dexmethylph 2020-11 40mg QD Take 40 mg Methodi enidate XR 008-[address] (FOCALIN 15:08: 00:00 every Hospita XR) 40 mg 58 :00 morning. l 24 hr capsule SODIUM 2020-11 No Take by Methodi OXYBATE 008-[address] (XYREM 15:08: 00:00 grams at Hospit a ORAL) 58 :00 2100 and l 4.5 grams at 0100 zolpidem 2020-11 No 10mg QD Take 10 mg Me [facility] (AMBIEN) 10 0-07 10-[address] mg tablet 15:08: 00:00 nightly. [facility] [place] 58 :00 zolpidem l 10 mg tablet dexmethylph 2020-11 40mg QD Take 40 mg Methodi enidate [...] l diskus day. inhaler ipratropium 2020-11 Yes [id number] .5mg Q.[id number] Take 2.5 Methodi (ATROVENT) 0-07 [id number] mL (0.[address] 0.02 % 00:00: 3D total) by Hospit a nebulizer 00 nebulizati l solution on 3 (three) times a day. salmeteroL 2020-11 Yes 1{puff} Q.5D Inhale 1 [facility]i (Serevent 0-[address] Diskus) 50 00:00: (two) Hospit a mcg/dose 00 times a l diskus day. inhaler ipratropium 2020-11 Yes [id number] .5mg Q.[id number] Take 2.5 [facility] (ATROVENT) 0-07 [id number] mL (0.[address] 0.02 % 00:00: 3D total) by Hospit a nebulizer 00 nebulizati l solution on 3 (three) times a day. salmeteroL 2020-11 Yes 1{puff} Q.5D Inhale 1 [facility]i (Serevent 0-[address] Diskus) 50 00:00: (two) Hospit a mcg/dose 00 times a l diskus day. inhaler ipratropium 2020-11 Yes [id number] .5mg Q.[id number] Take 2.5 [facility] (ATROVENT) 0-07 [id number] mL (0.[address] 0.02 % 00:00: 3D total) by Hospit a nebulizer 00 nebulizati l solution on 3 (three) times a day. salmeteroL 2020-11 Yes 1{puff} Q.5D Inhale 1 [facility]i (Serevent 0-[address] Diskus) 50 00:00: (two) Hospit a mcg/dose 00 times a l diskus day. inhaler ipratropium 2020-11 Yes [id number] .5mg Q.[id number] Take 2.5 [facility]i (ATROVENT) 0-07 [id number] mL (0.[address] 0.02 % 00:00: 3D total) by Hospit a nebulizer 00 nebulizati l solution on 3 (three) times a day. budesonide 2020-11 No [id number] .5mg QD Take 2 mL Methodi (PULMICORT) [...] for up to 30 days. budesonide 2020-11 No [id number] .5mg QD Take 2 mL [facility] (PULMICORT) [...] Q8H Infuse 500 [facility] 500 mg in 10-[address] dextrose 5% [...] QD Take 1 Method i (AMBIEN) 5 0-07 10-18 tablet (5 st MG tablet 00:00: 04:59 mg total) Ho spita 00 :00 by mouth l nightly as needed for sleep for up to 10 days. HYDROcodone 2020-1128 1{tbl} Q4H Take 1 Methodi -acetaminop 0-07 10-[address] hen ([employer]) 00:00: 04:59 mouth Hosp symone 10-325 mg 00 :00 every 4 l per tablet (four) hours as needed for severe pain for up to 10 days .acute pain. Max Daily Amount: 6 tablets clindamycin 2020-11 No 300mg Q.[id number] Take 1 [facility]i (CLEOCIN) 0-07 10-[id number] 300 MG 00:00: 04:59 3D (300 mg Hospita capsule 00 :00 total) by l mouth 3 (three) times a day for 10 days. zolpidem 2020-11 No 5mg QD Take 1 Method i (AMBIEN) 5 0-07 10-18 tablet (5 st MG tablet 00:00: 04:59 mg total) Ho spita 00 :00 by mouth l nightly as needed for sleep for up to 10 days. HYDROcodone 2020-1128 1{tbl} Q4H Take 1 Methodi -acetaminop 0-07 10-[address] hen (NORCO) 00:00: 04:59 mouth Hosp symone 10-325 mg 00 :00 every 4 l per tablet (four) hours as needed for severe pain for up to 10 days .acute pain. Max Daily Amount: 6 tablets clindamycin 2020-11 No 300mg Q.[id number] Take 1 [facility] (CLEOCIN) 0-07 10-[id number] 300 MG 00:00: 04:59 3D [...] a 43 :00 times a l day. Restasis Restasis No Restasis A zalea MultiDose MultiDose 6-10 MultiDose Orthope 0.05 % eye 0.05 % eye 00:00: 0.05 % eye dic drops drops 00 drops Sports Tamera corbin ursodiol ursodiol No ursodiol A zalea 300 mg 300 mg 6-10 300 mg [facility] capsule RX capsule RX 00:00: capsule RX dic by other MD by other MD 00 by other Sports MD Medicin e Abilify 5 Abilify 5 No Abilify 5 [place] mg tablet mg tablet 6-10 mg tablet Orthope 00:00: dic 00 Sports Medicin e Abilify 5 Abilify 5 No Abilify 5 [place] mg tablet mg tablet 6-10 mg tablet Orthope 00:00: dic 00 Sports Medicin e bupropion bupropion No bupropion Anthalie HCl SR 150 HCl SR 150 6-10 HCl SR 150 Orthope mg mg 00:00: mg dic tablet,12 tablet,12 00 tablet,12 Sports hr hr hr Medicin sustained-r sustained-r sustained- e elease RX elease RX release RX by other by other MD by other MD clonazepam clonazepam No clonazepam [place] 0.5 mg 0.5 mg 6-10 0.5 mg Orthope tablet RX tablet RX 00:00: tablet RX dic by other MD by other 00 by other Sports MD Philip e levothyroxi levothyroxi No levothyrox [place]ie ne 50 mcg ne 50 mcg 6-10 ine 50 mcg Orthope tablet RX tablet RX 00:00: tablet RX dic by other MD by other 00 by other Sports MD Philip e Multiple Multiple No Multiple A zalea Vitamin [...] by other 00 by other Sports MD Philip e bupropion bupropion No bupropion [place] HCl SR 150 HCl SR 150 6-10 HCl SR 150 Orthope mg mg 00:00: mg dic tablet,12 tablet,12 00 tablet,12 Sports hr hr hr Medicin sustained-r sustained-r sustained- e elease RX elease RX release RX by other MD by other MD by other MD clonazepam clonazepam No clonazepam N[place]ie 0.5 mg [...] Vitamin Orthop e 00:00: dic 00 Sports Medicjoanna e omeprazole omeprazole No omeprazole [place] 20 mg 20 mg 6-10 20 mg [facility] capsule,del capsule,del 00:00: capsule,de dic ayed ayed 00 layed Sports release release release Medici n e Restasis Restasis No Restasis A z[place] MultiDose MultiDose 6-10 MultiDose Orthope 0.05 % eye 0.05 % eye 00:00: 0.05 % eye dic drops drops 00 drops Sports Medicjoanna e ursodiol ursodiol No ursodiol A zalea 300 mg 300 mg 6-10 300 mg [facility] capsule RX capsule RX 00:00: capsule RX dic by other MD by other 00 by other Sports MD Tamera corbin Zofran 4 mg Zofran 4 mg No Zofran 4 [place] tablet RX tablet RX 6-10 mg tablet Orthope by other MD by other MD 00:00: RX by dic 00 other MD Julio corbin Abilify 5 Abilify 5 No Abilify 5 [place] mg tablet mg tablet 6-10 mg tablet Orthope 00:00: dic 00 Sports Tamera corbin bupropion bupropion No bupropion [place] HCl SR 150 HCl SR 150 6-10 HCl SR 150 Orthope mg mg 00:00: mg dic tablet,12 tablet,12 00 tablet,12 Sports hr hr hr Medicin sustained-r sustained-r sustained- e elease RX elease RX release RX by other MD by other MD by other MD clonazepam clonazepam No clonazepam Nath[place]ie 0.5 mg [...] by other 00 by other Sports MD Philip e Zofran 4 mg Zofran 4 mg No Zofran 4 [place] tablet RX tablet RX 6-10 mg tablet Orthope by other MD by other MD 00:00: RX by dic 00 other MD Julio corbin Abilify 5 Abilify 5 No Abilify 5 [place] mg tablet mg tablet 6-10 mg tablet Orthope 00:00: dic 00 Sports Medicjoanna e bupropion bupropion No bupropion [place] HCl SR 150 HCl SR 150 6-10 HCl SR 150 Orthope mg mg 00:00: mg dic tablet,12 tablet,12 00 tablet,12 Sports hr hr hr Medicin sustained-r sustained-r sustained- e elease RX elease RX release RX by other MD by other MD by other clonazepam clonazepam [...] Sports release release release Medici n e Bystolic 5 Bystolic 5 No Bystolic 5 [place] mg tablet mg tablet 4-27 mg tablet [facility]ope RX by other RX by other 00:00: RX by dic MD SCHMIDT 00 other Sports Medicin e Co Q-10 Co Q-10 [...] other MD by other MD by other Medicjoanna corbin omeprazole omeprazole No omeprazole Nathalie [...] other MD 00 by other Sports Medicjoanna e Bystolic 5 Bystolic 5 No Bystolic 5 [...] RX release RX release RX Medicin by dulce maria MD by other MD by other shaquille [...] dic by other MD by dulce maria MD 00 by other Sports MD Tamera [...] dic MD SCHMIDT 00 other MD Julio Philip e Co Q-10 Co Q-10 No Co [...] MD SCHMIDT 00 other MD Julio corbin Co Q-10 Co Q-10 No Co Q-10 [...] by other MD by other MD by dulce maria corbin levothyroxi levothyroxi No levothyrox [place]ie ne [...] RX release RX release RX Medicin by dulce maria MD by dulce maria MD by other shaquille SCHMIDT ondansetron ondansetron [...] RX by other by other MD by dulce maria SCHMIDT Bystolic 5 Bystolic 5 No Bystolic 5 [place] mg tablet mg tablet 4-27 mg tablet Orthope RX by other RX by other 00:00: RX by nelly SCHMIDT MD 00 other MD Julio Philip e Co Q-10 Co Q-10 No Co [...] other by other MD by other e ondansetron ondansetron No ondansetro [place] HCl 4 mg HCl 4 mg 4-27 n HCl 4 mg O rthope tablet RX tablet RX 00:00: tablet RX dic by other MD by other 00 by other Sports Medicjoanna corbin Restasis Restasis No Restasis A zalea [...] MD 00 by other Sports Medicjoanna corbin aripiprazol aripiprazol No aripiprazo [place]ie e [...] by other MD by other Tamera corbin aripiprazol aripiprazol No aripiprazo Nathalie [...] by other e RX by Tamera corbin valACYclovi Yes 500mg QD 1 tablet M ethodi r (VALTREX) 3-29 ([address] 500 MG 00:00: total) Hospita tablet 00 daily. l valACYclovi Yes 500mg QD 1 tablet M ethodi r (VALTREX) 3-29 ([address] 500 MG 00:00: total) Hospita tablet 00 daily. l gabapentin 2020- No [id number] 300mg Q.5D Take 1 [facility] (NEURONTIN) 01-[address] 300 mg 00:00: 04:59 (300 mg Hospita capsule 00 :00 total) by l mouth 2 (two) times a day for 30 days. gabapentin 2020- No [id number] 300mg Q.5D Take 1 [facility] (NEURONTIN) 01-26 [...] 30 days. Start after medrol dosepack. meloxicam 2020- No 15mg QD Take 1 Metho di (MOBIC) 15 3-15 04-15 tablet (15 st mg tablet 00:00: 04:59 mg total) Ho spita 00 :00 by mouth l daily for 30 days. [place] [id number] 25mg Q6H Take 0.5 Met hodi (ULTRAM) 50 3-13 03-[address] mg tablet 00:00: 04:59 (25 mg Hospi ta 00 :00 total) by l mouth every 6 (six) hours as needed for moderate pain for up to 5 days .acute pain. methylPREDN 2020- No follow Met hodi ISolone 13 -[address] (MEDROL 00:00: 04:59 directions [facility] [place] DOSEPAK) 4 00 :00 l mg tablet traMADoL 2020- No [id number] 25mg Q6H Take 0.5 Met hodi (ULTRAM) 50 3-13 03-[address] mg tablet 00:00: 04:59 (25 mg Hospi ta 00 :00 total) by l mouth every 6 (six) hours as needed for moderate pain for up to 5 days .acute pain. methylPREDN 2020- No follow Met hodi ISolone 13 -[address] (MEDROL 00:00: 04:59 directions [facility] [place] DOSEPAK) 4 00 :00 l mg tablet Nystatin-Tr Nystatin-Tr 2019-0 Yes SUBHRATHA APPLY UT iamcinolone iamcinolone 6-05 YESY SPARINGLY [facility] [id number] 00:00: M.D. TO a ns UNIT/GM-% UNIT/GM-% [...] 00:00: total) Hospit a 00 daily. l duloxetine 2017-11 Yes 120mg QD Take 120 [facility] HCl 0-[address] (DULOXETINE 00:00: mouth Hospi ta ORAL) 00 daily. l zolpidem 2017-11 Yes 10mg QD 1 tablet Metho di (AMBIEN) 10 0-01 ([address] mg tablet 00:00: total) Hospit a 00 daily. l nebivoloL 2017-11- No 5mg 1 tablet Met hodi (BYSTOLIC) 0-05 ([address] 5 MG tablet 00:00: 00:00 total) as Hospita 00 :00 needed. l nebivoloL 2017-11- No 5mg 1 tablet Met hodi (BYSTOLIC) [...] 00 by other Sports MD Philip e CoQ10 10 mg CoQ10 10 mg No [...] mcg Orthope tablet tablet 00:00: tablet dic Sports Medicin e Medrol 4 mg Medrol 4 mg No Medrol 4 Nathalie tablet tablet 9-19 mg tablet Orthop e 00:00: dic Sports Medicin e Ambien 5 mg Ambien 5 mg No Ambien 5 [place]ie tablet tablet 9-19 mg tablet Orthop e 00:00: dic Sports Medicin e bupropion bupropion No bupropion [...] other 00 by other Sports Medicjoanna e CoQ10 10 mg CoQ10 10 mg No CoQ10 10 [place]ie capsule capsule 9-19 mg capsule Ort hope 00:00: dic Sports Medicin e Crestor 10 Crestor 10 No Crestor 10 [place]ie mg tablet mg tablet 9-19 mg tablet [facility]ope RX by other RX by other 00:00: RX by nelly SCHMIDT MD 00 other MD Kim Medicjoanna e hydrochloro hydrochloro No hydrochlor Nathalie thiazide [...] e Ambien 5 mg Ambien 5 mg 2017- No Ambien 5 [place]ie tablet tablet 9-19 mg tablet Orthop e 00:00: dic 00 Sports Medicin e Bystolic Bystolic No Bystolic A zalea [...] SCHMIDT 00 other MD Kim Medicin e hydrochloro hydrochloro No hydrochlor Nathalie [...] e Ambien 5 mg Ambien 5 mg 2017- No Ambien 5 [place] tablet tablet 9-19 mg tablet Orthop e 00:00: dic Sports Medicin e Ambien 5 mg Ambien 5 mg No Ambien 5 [place]ie tablet tablet 9-19 mg tablet Orthop e 00:00: dic 00 Sports Medicin e Bystolic Bystolic No Bystolic A zalea [...] RX by nelly SCHMIDT MD 00 other Sports Medicin e hydrochloro hydrochloro [...] e 00:00: dic 00 Sports Medicin e CRESTOR 5 Yes 5mg QD Take 5 mg Met hodi mg tablet 6-[address] 00:00: daily. Hospita 00 l levothyroxi Yes 50ug QD Take 50 Met hodi ne 6-[address] (SYNTHROID, 00:00: mouth Hospi ta LEVOXYL) 50 00 daily. l mcg tablet RESTASIS 0 Yes 1[drp] Q.5D Administer M ethodi MULTIDOSE [...] st 00:00: daily. Hospita 00 l levothyroxi 2017-0 Yes 50ug QD Take 50 Met hodi ne 6-[address] (SYNTHROID, 00:00: mouth Hospi ta LEVOXYL) 50 00 daily. l mcg tablet RESTASIS 2018-0 Yes 1[drp] Q.5D Administer M ethodi MULTIDOSE 6-[address] 0.05 % 00:00: both eyes Hospit a drops 00 2 (two) l times a day. buPROPion 2017-0 Yes 150mg QD Take 150 Met hodi [...] 5 mg [facility] mg tablet 05-07 10-[address] 00:00: 00:00 daily. Hospita 00 :00 l CRESTOR 5 2021- No 5mg QD Take 5 mg [facility] mg tablet 05-07 10-[address] 00:00: 00:00 daily. Hospita [...] 00:00 daily. Hospita 00 :00 l ursodiol 2015- Yes 300mg Q.5D Take 300 Meth анна (ACTIGALL) 4-[address] 300 mg 00:00: mouth 2 Hospita capsule 00 (two) l times a day. ursodiol Yes 300mg Q.5D Take 300 Meth анна (ACTIGALL) 4-[address] 300 mg 00:00: mouth 2 Hospita capsule 00 (two) l times a day. ursodiol 2015-0 Yes 300mg Q.5D Take 300 Meth анна (ACTIGALL) 4-[address] 300 mg 00:00: mouth 2 Hospita capsule 00 (two) l times a day. ursodiol Yes 300mg Q.5D Take 300 Meth [...] Nathalie e 12.5 mg e 12.5 mg 08-06 ne 12.5 mg [facility] tablet i tablet i 00:00: tablet i d ic p.o. Q 6H p.o. Q 6H 00 p.o. Q 6H Sports prn nausea prn nausea prn nausea Medicin e promethazin promethazin No promethazi Nathalie e 12.5 mg e 12.5 mg 08-06 ne 12.5 mg [facility] tablet i tablet i 00:00: tablet i d ic p.o. Q 6H p.o. Q 6H 00 p.o. Q 6H Sports prn nausea prn nausea prn nausea Medicin e promethazin promethazin No promethazi Nathalie e 12.5 mg e 12.5 mg 08-06 ne 12.5 mg [facility] tablet i tablet i 00:00: tablet i d ic p.o. Q 6H p.o. Q 6H 00 p.o. Q 6H Sports prn nausea prn nausea prn nausea Medicin e promethazin promethazin No promethazi Nathalie e 12.5 mg e 12.5 mg 08-06 ne 12.5 mg [facility] tablet i tablet i 00:00: tablet i d ic p.o. Q 6H p.o. Q 6H 00 p.o. Q 6H Sports prn nausea prn nausea prn nausea Medicin e promethazin promethazin No promethazi Nathalie e 12.5 mg e 12.5 mg 08-06 ne 12.5 mg [facility] tablet i tablet i 00:00: tablet i d ic p.o. Q 6H p.o. Q 6H 00 p.o. Q 6H Sports prn nausea prn nausea prn nausea Medicin e Focalin 2.5 Focalin 2.5 No Focalin Nathalie mg tablet mg tablet 07-27 2.5 mg Ort hope RX by other RX by other 00:00: tablet RX dic MD SCHMIDT 00 by other Sports Medicin e gemfibrozil gemfibrozil No gemfibrozi Nathalie 600 mg [...] 00:00: RX by dic MD SCHMIDT other MD Julio corbin Abilify 30 Abilify 30 No Abilify 30 [place]ie mg tablet mg tablet 9-17 mg tablet [facility] RX by other RX by other 00:00: RX by dic MD SCHMIDT other MD Julio corbin amlodipine amlodipine No [...] other RX by other 00:00: tablet RX nelly SCHMIDT MD 00 by other Sports MD Tamera [...] by dic MD SCHMIDT 00 dulce maria Burks Focalin 2.5 Focalin 2.5 No Focalin Nathalie [...] 00:00: RX by dic MD SCHMIDT other MD Julio corbin Focalin 2.5 Focalin [...] other MD by other shaquille Nguyen 20 Marisalify 20 No Abilify 20 Nathalie mg tablet mg tablet 9-17 mg tablet [facility] RX by other RX by other 00:00: RX by dic MD SCHMIDT 00 other MD Julio corbin Abianitra 30 Abilify 30 No Abilify 30 Nathalie [...] 00:00: RX by dic MD SCHMIDT other MD Julio corbin Focalin 2.5 Focalin [...] by other by other MD by other shaquille Nguyen [...] other MD by other shaquille Nguyen 20 Marisalify 20 No Abilify 20 Nathalie mg tablet mg tablet 9-17 mg tablet [facility] RX by other RX by other 00:00: RX by nelly SCHMIDT MD 00 other MD Julio corbin Abilify 20 Abilify 20 No Abilify 20 Nathalie [...] 00 by other Sports MD Tamera corbin amlodipine amlodipine No amlodipine Nathalie 2.5 [...] MD by other MD by other e ciprofloxac ciprofloxac No ciprofloxa Nathalie in 500 [...] ended tended Medicin release release release e [id number] 50 TAKE 1 50 TAKE 1 -50 [...] mg [facility] capsule capsule capsule dic Sports INWEBTURE Limitedin e glycopyrrol glycopyrrol No glycopyrro Nathalie ate [...] Xarelto 10 Xarelto 10 No Xarelto 10 [place] mg tablet mg tablet mg tablet Orthope [...] rts MOUTH AT MOUTH AT TABLET BY Mn dicin BEDTIME BEDTIME MOUTH AT e BEDTIME [...] ended tended Medicin release release release e [id number] 50 TAKE 1 50 TAKE 1 -50 [...] NEEDED MUSCLE SPASMS methocarbam methocarbam No methocarba Nahtalie ol 750 mg ol 750 mg mol [...] rts MOUTH AT MOUTH AT TABLET BY Mn dicin BEDTIME BEDTIME MOUTH AT e BEDTIME [...] ended tended Medicin release release release e [id number] 50 TAKE 1 50 TAKE 1 -50 [...] 100 mg [facility] capsule capsule capsule dic Tueborain e glycopyrrol glycopyrrol No glycopyrro Nathalie ate 1 mg ate 1 mg late 1 mg Or thope tablet tablet tablet dic [email or web address] Medicin e hydrocodone hydrocodone No hydrocodon Nathalie [...] rts MOUTH AT MOUTH AT TABLET BY Mn dicin BEDTIME BEDTIME MOUTH AT e BEDTIME [...] ended tended Medicin release release release e [id number]- [id number] 50 TAKE 1 50 TAKE 1 -50 [...] NEEDED MUSCLE SPASMS methotrexat methotrexat No methotrexa [place] e sodium e sodium te sodium Or [...] rts MOUTH AT MOUTH AT TABLET BY Mn dicin BEDTIME BEDTIME MOUTH AT e BEDTIME [...] ended tended Medicin release release release e [id number] 50 TAKE 1 50 TAKE 1 -50 [...] 100 mg [facility] capsule capsule capsule dic Tueborain e glycopyrrol glycopyrrol No glycopyrro Nathalie ate 1 mg ate 1 mg late 1 mg Or thope tablet tablet tablet dic [email or web address] Medicin e hydrocodone hydrocodone No hydrocodon Nathalie [...] rts MOUTH AT MOUTH AT TABLET BY Mn dicin BEDTIME BEDTIME MOUTH AT e BEDTIME [...] ended tended Medicin release release release e [id number] 50 TAKE 1 50 TAKE 1 -50 [...] tablet Medicin e dextroamphe dextroamphe No dextroamph [place] tamine-amph tamine-amph etamine-am Orthope etamine 15 etamine [...] dicin BEDTIME BEDTIME MOUTH AT e BEDTIME Advair Advair No Advair Nathalie Diskus 500 Diskus 500 Diskus 500 Orthope mcg-50 mcg-50 mcg-50 dic mcg/dose mcg/dose mcg/dose Spo rts powder for powder for powder for Medicin inhalation inhalation inhalation e albuterol albuterol No albuterol Nathalie sulfate 2.5 sulfate 2.5 sulfate Orthope mg/3 mL mg/3 mL 2.5 mg/3 dic (0.083 %) (0.083 %) mL (0.083 Sports solution solution %) Medicin for for solution e nebulizatio nebulizatio for n n nebulizati on albuterol albuterol No albuterol Nathalie sulfate HFA sulfate HFA sulfate Orthope 90 90 HFA 90 dic mcg/actuati mcg/actuati mcg/actuat Sports on aerosol on aerosol ion Med icin inhaler inhaler aerosol e inhaler amlodipine amlodipine No amlodipine Nathalie 5 mg [...] tablet tablet tablet dic Sports Medicin e azithromyci azithromyci No azithromyc Nathalie n 250 mg n 250 mg in 250 mg Or thope tablet tablet tablet dic Sports Medicin e benzonatate benzonatate No benzonatat Nathalie 100 mg 100 mg e 100 mg [facility] capsule capsule capsule dic TAKE 1 TAKE 1 TAKE 1 Sports CAPSULE BY CAPSULE BY CAPSULE BY Medicin MOUTH FOUR MOUTH FOUR MOUTH FOUR e TIMES DAILY TIMES DAILY TIMES NEEDED NEEDED DAILY FOR COUGH FOR COUGH NEEDED FOR COUGH budesonide budesonide No budesonide Nathalie 0.5 mg/2 [...] MOUTH EVERY MOUTH MORNING MORNING EVERY MORNING bupropion bupropion No bupropion Nathalie HCl XL 300 HCl XL 300 HCl XL 300 [facility] mg 24 hr mg 24 hr mg 24 hr dic tablet, tablet, tablet, Sports extended extended extended Med icin release release release e ciprofloxac ciprofloxac No ciprofloxa Nathalie in 250 mg in 250 mg jimmy 250 mg [facility] tablet tablet tablet dic Sports Medicin e ciprofloxac ciprofloxac No ciprofloxa Nathalie in 500 [...] TWICE DAILY clotrimazol clotrimazol No clotrimazo Nathalie e 10 mg e 10 mg le 10 mg Ortho pe emiliano emiliano emiliano dic Sports Medicin e clotrimazol clotrimazol No clotrimazo Nathalie e-betametha e-betametha [...] ended tended Medicin release release release e [id number] 50 TAKE 1 50 TAKE 1 -50 [...] Sports release release release Medici n e ezetimibe ezetimibe No ezetimibe Nathalie 10 mg 10 mg 10 mg [facility] tablet tablet tablet dic Sports Medicin e famotidine famotidine No famotidine Nathalie 40 [...] tablet ting Spo rts tablet Medicin e ondansetron ondansetron No ondansetro Nathalie HCl 4 mg HCl 4 mg n HCl 4 mg O rthope tablet RX tablet RX tablet RX dic by other MD by other MD by other Sports Medicin e pantoprazol pantoprazol No pantoprazo Nathalie [...] tablet tablet tablet dic Sports Medicin e prednisone prednisone No prednisone Nathalie 20 mg 20 mg 20 mg Orth[facility] tablet tablet tablet dic Sports [...] DAILY TABLET BY Medicin MOUTH e DAILY Vios Vios No Vios Nathalie Aerosol Aerosol Aerosol Orthop e Delivery Delivery Delivery dic System USE System USE System USE Sports DIRECTED DIRECTED M edicin DIRECTED e voriconazol voriconazol No voriconazo Nathalie e 200 [...] rts MOUTH AT MOUTH AT TABLET BY Mn dicin BEDTIME BEDTIME MOUTH AT e BEDTIME Advair Advair No Advair Nathalie Diskus 500 Diskus 500 Diskus 500 [facility] mcg-50 mcg-50 mcg-50 dic mcg/dose mcg/dose mcg/dose Spo rts powder for powder for powder for Medicin inhalation inhalation inhalation e albuterol albuterol No albuterol Nathalie sulfate 2.5 sulfate 2.5 sulfate [facility] mg/3 mL mg/3 mL 2.5 mg/3 dic (0.083 %) (0.083 %) mL (0.083 Sports solution solution %) Medicin for for solution e nebulizatio nebulizatio for n n nebulizati on albuterol albuterol No albuterol Nathalie sulfate HFA sulfate HFA sulfate [facility] 90 90 HFA 90 dic mcg/actuati mcg/actuati mcg/actuat Sports on aerosol on aerosol ion Med icin inhaler inhaler aerosol e inhaler amlodipine amlodipine No amlodipine Nathalie 5 mg [...] aspirin 81 Nathalie mg mg mg [facility] tablet,otmmie tablet,tommie tablet,del dic yed release yed release ayed S ports TAKE 1 TAKE 1 release Medicin TABLET BY TABLET BY TAKE 1 e MOUTH TWICE MOUTH TWICE TABLET BY A DAY A DAY MOUTH TWICE A DAY atorvastati atorvastati No atorvastat Nathalie n 20 mg n 20 mg in 20 mg Ortho pe tablet tablet tablet dic Sports Medicin e azithromyci azithromyci No azithromyc Nathalie n 250 mg n 250 mg in 250 mg Or thope tablet tablet tablet dic [email or web address] Medicin e benzonatate benzonatate No benzonatat Nathalie 100 mg 100 mg e 100 mg [facility] capsule capsule capsule dic TAKE 1 TAKE 1 TAKE 1 Sports CAPSULE BY CAPSULE BY CAPSULE BY Medicin MOUTH FOUR MOUTH FOUR MOUTH FOUR e TIMES DAILY TIMES DAILY TIMES NEEDED NEEDED DAILY FOR COUGH FOR COUGH NEEDED FOR COUGH budesonide budesonide No budesonide Nathalie 0.5 mg/2 [...] MOUTH EVERY MOUTH MORNING MORNING EVERY MORNING bupropion bupropion No bupropion Nathalie HCl XL 300 HCl XL 300 HCl XL 300 [facility] mg 24 hr mg 24 hr mg 24 hr dic tablet, tablet, tablet, Sports extended extended extended Med icin release release release e ciprofloxac ciprofloxac No ciprofloxa Nathalie in 250 mg in 250 mg jimmy 250 mg [facility] tablet tablet tablet dic [email or web address] Medicin e ciprofloxac ciprofloxac No ciprofloxa Nathalie in 500 mg in 500 mg jimmy 500 mg [facility] tablet tablet tablet dic [email or web address] Medicin e clonazepam clonazepam No clonazepam Nathalie 1 mg tablet 1 mg tablet 1 mg O rthope TAKE 1 TAKE 1 tablet dic TABLET BY TABLET BY TAKE 1 Spo rts MOUTH TWICE MOUTH TWICE TABLET BY Medicin DAILY DAILY MOUTH e TWICE DAILY clotrimazol clotrimazol No clotrimazo Nathalie e 10 mg e 10 mg le 10 mg Ortho pe emiliano emiliano emiliano dic [employer] Medicin e clotrimazol clotrimazol No clotrimazo Nathalie e-betametha e-betametha [...] ended tended Medicin release release release e [id number] 50 TAKE 1 50 TAKE 1 -50 [...] Sports release release release Medici n e ezetimibe ezetimibe No ezetimibe Nathalie 10 mg 10 mg 10 mg [facility] tablet tablet tablet dic Sports Medicin e famotidine famotidine No famotidine Nathalie 40 mg 40 mg 40 mg [facility] tablet tablet tablet dic Sports Medicin e amlodipine amlodipine No amlodipine Nathlaie 5 mg tablet 5 mg tablet 5 mg O rthope tablet dic Sports Medicin e ferrous ferrous [...] No ID NOW Nathalie COVID-19 COVID-19 COVID-19 Dct inchelium Test Kit Test Kit Test Kit dic [...] Medicin DAY DAY MOUTH e EVERY DAY levothyroxi levothyroxi No levothyrox Nathalie ne 25 [...] topical Sports cream cream cream Medicin e armodafinil armodafinil No armodafini Nathalie 200 mg 200 mg l 200 mg [facility] tablet tablet tablet dic Sports Medicin e ondansetron ondansetron No ondansetro Nathalie 4 mg 4 mg n 4 mg [facility] disintegrat disintegrat disintegra dic ing tablet ing tablet ting Spo rts tablet Medicin e ondansetron ondansetron No ondansetro Nathalie HCl 4 mg HCl 4 mg n HCl 4 mg O rthope tablet RX tablet RX tablet RX dic by other MD by other MD by other Sports MD Medicin e pantoprazol pantoprazol No pantoprazo Nathalie [...] tablet tablet tablet dic Sports Medicin e prednisone prednisone No prednisone Nathalie 20 mg 20 mg 20 mg [facility] tablet tablet tablet dic Sports Medicin e Rasuvo (PF) Rasuvo (PF) No Rasuvo Nathalie 15 mg/0.3 15 mg/0.3 (PF) 15 Or thope mL mL mg/0.3 mL dic subcutaneou subcutaneou subcutaneo Sports s s us Medicin auto-inject auto-inject auto-injec e or or tor armodafinil armodafinil No armodafini Nathalie 250 mg 250 mg l 250 mg [facility] tablet tablet tablet dic Sports Medicin e Serevent Serevent No Serevent Aza yeni Diskus [...] topical Medici n cream cream cream e armodafinil armodafinil No armodafini Nathalie 50 mg 50 mg l 50 mg [facility] tablet tablet tablet dic Sports Medicin e valacyclovi valacyclovi No valacyclov Nathalie r 500 mg r 500 mg ir 500 mg Or thope tablet TAKE tablet TAKE tablet dic 1 TABLET BY 1 TABLET BY TAKE 1 Sports MOUTH DAILY MOUTH DAILY TABLET BY Medicin MOUTH e DAILY Vios Vios No Vios Nathalie Aerosol Aerosol Aerosol Orthop e Delivery Delivery Delivery dic System USE System USE System USE Sports DIRECTED DIRECTED M edicin DIRECTED e voriconazol voriconazol No voriconazo Nathalie e 200 [...] rts MOUTH AT MOUTH AT TABLET BY dicin BEDTIME BEDTIME MOUTH AT e BEDTIME aspirin 81 aspirin 81 No aspirin 81 [...] TWICE A DAY atorvastati atorvastati No atorvastat Nathlaie n 20 mg n 20 mg in [...] SOLN X[facility]rem [facility]N [facility] Ordered Immunization Filled Immunization Date Status Commen ts Source Name Name KRISTY ZAYAS 2021-11-23 Completed [facility]00 [facility] JODIE ISABELRebekah 2021-11-23 Completed [facility]:00:00 [facility] ISABELRebekah 2021-01-31 Completed [facility]ACC[facility] 00:00:00 [facility] ISABELRebekah 2021-01-31 Completed [facility] 00:00:00 [facility] ISABELRebekah 2021-01-02 Com[facility] 00:00:00 [facility]ublok Quadrivalent 2020-07-11 Completed [facility] 0.5 ML Intramuscular 00:00:00 Solution Prefilled Syringe Vital Signs Vital Name Observation Time Observation Value Comments Source Height 2022-10-09 67 [in_i] Nathalie 00:00:00 [facility] BMI (Body Mass 2022-10-09 30.7 kg/m2 Nathalie Index) 00:00:00 [facility] Body Weight 2022-10-09 196 [lb_av] Nathalie 00:00:00 [facility] Heart rate 2022-09-29 88 /min [facility] 19:00:00 [facility] Oxygen saturation 2022-09-29 94 /min [facility] Arterial blood 19:00:00 [facility] Pulse oximetry [place] Systolic blood 2022-09-29 127 mm[Hg] [facility] pressure 18:27:00 [facility] Diastolic blood 2022-09-29 65 mm[Hg] [place] o f pressure 18:27:00 [facility] Body temperature 2022-09-29 37.33 Kaylynn [facility] 18:27:00 [facility] Respiratory rate 2022-09-29 18 /min [facility] 18:27:00 [facility] Body weight 2022-09-28 95.851 kg [facility] 16:57:00 [facility] Height 2022-09-03 67 [in_i] Nathalie 00:00:00 [facility] BMI (Body Mass 2022-09-03 30.7 kg/m2 Nathalie Index) 00:00:00 [facility] Body Weight 2022-09-03 196 [lb_av] Nathalie 00:00:00 [facility] Height 2022-08-27 67 [in_i] Nathalie 00:00:00 [facility] Height 2022-07-19 67 [in_i] Nathalie 00:00:00 [facility] Systolic blood 2022-09-17 127 mm[Hg] [facility] 15:07:00 Hospital Diastolic blood 2022-09-17 66 mm[Hg] [facility] 15:07:00 [facility] Heart rate 2022-09-17 74 /min [facility] 15:07:00 [facility] Body height 2022-09-17 165.1 cm [facility] 15:07:00 [facility] Body weight 2022-09-17 101.334 kg [facility] 15:07:00 [facility] BMI 2022-09-17 37.18 kg/m2 [facility] 15:07:00 [facility] Oxygen saturation 2022-09-17 100 /min [facility] in Arterial blood 15:07:00 Hospital by Pulse oximetry Respiratory rate 2022-08-23 18 /min [facility] 14:58:00 Hospital Body temperature 2022-08-20 37.11 Kaylynn [facility] 03:59:20 Hospital Heart rate 2021-08-16 89 /min [facility] 18:49:00 Hospital Respiratory rate 2021-08-16 18 /min [facility] 18:49:00 Hospital Oxygen saturation 2021-08-16 93 /min [facility] in Arterial blood 18:39:00 Hospital by Pulse oximetry Systolic blood 2021-08-16 132 mm[Hg] [facility] pressure 17:02:17 Hospital Diastolic blood 2021-08-16 63 mm[Hg] [facility] pressure 17:02:17 Hospital Body temperature 2021-08-16 36.06 Kaylynn [facility] 17:02:17 Hospital Body weight 2021-08-15 91 kg [facility] 11:00:00 [facility] BMI 2021-08-15 31.42 kg/m2 [facility] 11:00:00 Hospital Body height 2021-04-24 170.2 cm [facility] 14:01:00 Hospital Systolic blood 2021-03-13 118 mm[Hg] [facility] [...] Systolic blood 2020-09-25 127 mm[Hg] [facility] 09:23:00 Position: Sitting Diastolic blood 2020-09-25 80 mm[Hg] [place] pressure 09:23:00 Position: Sitting Body height 2020-09-25 67 [in_us] [facility] 09:23:00 Weight 2020-09-25 218.375 [lb_av] [facility] 09:23:00 Body mass index 2020-09-25 34.2 kg/m2 [facility] (BMI) [Ratio] 09:23:00 Body temperature 2020-09-25 96.3 [degF] Method: [facility] 09:23:00 Temporal Systolic blood 2020-04-14 138 mm[Hg] Location[place] [place] [facility] pressure 08:32:00 Position: Sitting Diastolic blood 2020-04-14 77 mm[Hg] Location[facility] [place] pressure 08:32:00 Position: Sitting Body height 2020-04-14 67 [in_us] [facility] 08:32:00 Weight 2020-04-14 200 [lb_av] [facility] 08:32:00 Body mass index 2020-04-14 31.32 kg/m2 [facility] (BMI) [Ratio] 08:32:00 Body temperature 2020-04-14 97.8 [degF] Method: [facility] 08:32:00 Temporal Heart Rate 2020-04-14 70 /min [facility] 08:32:00 BP Systolic 2019-08-18 136 mm[Hg] Location: [place] 15:52:00 Position: Sitting BP Diastolic 2019-08-18 80 mm[Hg] [facility] 15:52:00 Position: Sitting Height 2019-08-18 67 [in_us] [facility] 15:52:00 Weight 2019-08-18 216.375 [lb_av] [facility] 15:52:00 Body Mass Index 2019-08-18 33.89 kg/m2 [facility] Calculated 15:52:00 Temperature 2019-08-18 98.7 [degF] [facility] 15:52:00 BP Systolic 2019-08-09 119 mm[Hg] [facility] 10:10:00 Position: Sitting BP Diastolic 2019-08-09 74 mm[Hg] [facility] 10:10:00 Position: Sitting Height 2019-08-09 67 [in_us] [facility] 10:10:00 Weight 2019-08-09 214.375 [lb_av] [facility] 10:10:00 Body Mass Index 2019-08-09 33.58 kg/m2 [facility] Calculated 10:10:00 Procedures Procedure Date / Time Performing Clinician Source Performed RADEX SPI LUMBOSAC MINIMUM 2022-10-22 00:00:00 A jose [facility] 4 VIEWS Sports Medicine EXTERNAL PROVIDER RECORDS 2022-10-07 06:01:00 Doctor Unassigned, [facility] CT THORAX WO CONTRAST 2022-09-29 14:48:32 Emmy Montoya [facility] MAGNESIUM 2022-09-29 10:40:00 Mark Montoyaoja [facility] BASIC METABOLIC PANEL (NA, 2022-09-29 10:40:00 Emmy Montoya [facility] K, CL, CO2, GLUCOSE, BUN, Medica l Branch CREATININE, CA) CBC WITH DIFF 2022-09-29 10:40:00 Emmy Montoya [facility] SPUTUM CULTURE 2022-09-29 01:22:00 Emmy Montoya [facility] PNEUMOCOCCAL ANTIGEN 2022-09-29 01:22:00 Emmy Montoya [facility] MRSA / MSSA SCREEN BY PCR, 2022-09-29 00:12:00 Emmy Montoya [facility] BLOOD CULTURE SCREEN 2022-09-29 00:05:00 Emmy Montoya [facility] TROPONIN I 2022-09-29 00:04:00 Jan Emmy [facility] HEPATIC FUNCTION PANEL 2022-09-29 00:04:00 Emmy Montoya [facility] ([id number]) (ALB,T.PRO,BILI Medical Branch T,BU/BC,ALT,AST,ALK PHOS) BASIC METABOLIC PANEL (NA, 2022-09-29 00:04:00 Emmy Montoya [facility] K, CL, CO2, GLUCOSE, BUN, Medica l Branch CREATININE, CA) CBC WITH DIFF 2022-09-29 00:04:00 Jan Emmy [facility] PROTHROMBIN TIME / INR 2022-09-29 00:04:00 Mark Montoyaoja [facility] D-DIMER 2022-09-29 00:04:00 Jan Emmy [facility] N-TERMINAL PRO-BNP 2022-09-29 00:04:00 Jan [facility] PROCALCITONIN 2022-09-29 00:04:00 Jan [facility] HIV 1/2 AG-AB WITH REFLEX 2022-09-29 00:04:00 [facility] 2022-09-29 00:04:00 Mark Montoyaoja [facility] XR CHEST 2 VW 2022-09-28 20:10:00 Jan [facility] GALV ONLY - INFLUENZA A B 2022-09-28 18:32:00 Emmy Montoya Un [facility] RSV PCR Medical Branch COVID-19 (MOLECULAR 2022-09-28 18:32:00 Mark Montoyaoja [facility] TESTING [facility] NUCLEIC ACID AMPLIFICATION) LAB ONLY COVID 2022-09-28 18:32:00 Mark Montoyaoja [facility] INTERPRETATION [facility] HC COMPLETE BLD COUNT 2022-09-17 15:22:00 Deuce Lopez [facility] W/AUTO DIFF FERRITIN LEVEL 2022-09-17 15:22:00 [facility] SERUM ELECTROPHORESIS 2022-09-17 15:22:00 Deuce Lopez [facility] BUN LEVEL 2022-09-17 15:22:00 [facility] CREATININE LEVEL 2022-09-17 15:22:00 Deuce Lopez [facility] LDH 2022-09-17 15:22:00 [facility] ESTIMATED GFR 2022-09-17 15:22:00 [facility] ECG 12-LEAD 2022-09-04 13:26:07 [facility] XR, femur, 2 or more view 2022-09-03 00:00:00 Kush gurjit [facility], lower extremity, w/o 2022-09-03 00:00:00 Mar jaime [facility] contrast Sports Medicine RADEX SPI LUMBOSAC MINIMUM 2022-08-27 00:00:00 Santosh garcia [facility] 4 VIEWS Sports Medicine CV CARDIAC PET STRESS TEST 2022-08-23 16:04:36 [facility] CV CARDIAC PET MYOCARDIAL 2022-08-23 16:04:36 [facility] PERFUSION IMAGING Deon TTE COMPLETE, W CONTRAST, 2022-08-23 14:10:00 [facility] W DOPPLER ([id number]) Deon HC COMPLETE BLD COUNT 2022-08-20 06:26:00 [facility] W/AUTO DIFF Peter COMPREHENSIVE METABOLIC 2022-08-20 06:26:00 [facility] Doc [facility] PANEL Peter TROPONIN T 2022-08-20 06:26:00 [facility] Peter B NATRIURETIC PEPTIDE 2022-08-20 06:26:00 [facility] Peter ESTIMATED GFR 2022-08-20 06:26:00 [facility] Peter XR CHEST 2 VW 2022-08-20 [facility] 2022-08-20 [facility]:09[facility] ECG 12-LEAD 2022-08-20 [facility]:05[facility] LIPID PANEL 2022-08-14 14:37:00 [facility] COMPREHENSIVE METABOLIC 2022-08-14 14:37:00 [facility] PANEL [place] THYROID STIMULATING 2022-08-14 14:37:00 [facility] HORMONE [place] T3 2022-08-14 14:37:00 [facility] T4, FREE 2022-08-14 14:37:00 [facility] NT-PROBNP 2022-08-14 14:37:00 [facility] CBC WITH PLATELET AND 2022-08-14 14:37:00 [facility] ECG 12-LEAD 2022-08-14 13:43:21 [facility] RADEX SPI LUMBOSAC MINIMUM 2022-07-19 00:00:00 Santosh garcia Orthopedic 4 VIEWS Sports Medicine [id number] 2022-07-04 00:00:[address] [facility] [id number] 2022-07-04 00:00:[address] [facility] [id number] 2022-07-04 00:00:[address] [facility] [id number] 2022-07-04 00:00:[address] [facility] [id number] 2022-07-04 00:00:[address] [facility] [id number] 2022-07-04 00:00:[address] [facility] XR, knee, 4 or more view 2022-06-04 00:00:00 Mar jaime [facility] RADEX SPI LUMBOSAC MINIMUM 2022-05-22 00:00:00 A zalea Orthopedic 4 VIEWS Sports Medicine MRI, lumbar spine, w/o 2022-05-22 00:00:00 Odette cam [facility] contrast Sports Medicine LACTIC ACID LEVEL, SEPSIS 2022-04-30 23:08[facility]00 [facility] - NOW AND REPEAT 2X EVERY 3 HOURS AMMONIA LEVEL 2022-04-30 23:08:00 [facility] PROTHROMBIN TIME WITH INR 2022-04-30 23:08:00 [facility] PARTIAL THROMBOPLASTIN 2022-04-30 23:08:00 [facility] TIME (PTT) CBC WITH PLATELET AND 2022-04-30 21:11:00 [facility] DIFFERENTIAL COMPREHENSIVE METABOLIC 2022-04-30 21:11:00 [facility] PANEL ESTIMATED GFR 2022-04-30 21:11:00 [facility] MANUAL DIFFERENTIAL 2022-04-30 21:11:00 [facility] CBC WITH PLATELET AND 2021-08-16 10:40:[facility]HENSIVE METABOLIC 2021-08-16 10:40:00 [facility] Adam [facility] PANEL MAGNESIUM LEVEL 2021-08-16 10:40:00 [facility] PHOSPHORUS LEVEL 2021-08-16 10:40:00 CharlotteAdam [facility] B NATRIURETIC PEPTIDE 2021-08-16 10:40:00 Mayco Langford [facility] ESTIMATED GFR 2021-08-16 10:40:00 [facility] 2021-08-16 10:40:00 Adam Blake [facility] CBC WITH PLATELET AND 2021-08-15 11:36:00 [facility]FFER[facility] COMPREHENSIVE METABOLIC 2021-08-15 11:36:00 BlakeAdam [facility] PANEL MAGNESIUM LEVEL 2021-08-15 11:36:00 CharlotteAdam [facility] PHOSPHORUS LEVEL 2021-08-15 11:36:00 [facility] 2021-08-15 11:36:00 Adam Blake [facility] MANUAL DIFFERENTIAL 2021-08-15 11:36:00 Adam Blake [facility] COMPREHENSIVE METABOLIC 2021-08-14 14:58:00 CharlotteAdam [facility] PANEL ESTIMATED GFR 2021-08-14 14:58:00 Adam Blake [facility] CBC WITH PLATELET AND 2021-08-14 09:59:00 [facility] DIFFERENTIAL B NATRIURETIC PEPTIDE 2021-08-14 09:59:00 O'Mayco Arriaga Conrad [facility] BASIC METABOLIC PANEL 2021-08-14 09:59:00 [facility] ESTIMATED GFR 2021-08-14 09:59:00 [facility], [facility] MANUAL DIFFERENTIAL 2021-08-14 09:59:00 O'Arriaga, [facility] XR CHEST 1 VW PORTABLE 2021-08-13 19:39:00 [facility] R POC GLUCOSE 2021-08-13 19:08:00 [facility] ARTERIAL BLOOD GAS 2021-08-13 18:38:00 [facility] R HEMOGLOBIN & HEMATOCRIT 2021-08-13 18:38:00 Jeremy Bills [facility] Maximino POC GLUCOSE 2021-08-13 18:08:00 '[facility] XR FEMUR 2 VW RIGHT 2021-08-13 17:55:00 [facility] PELVIS 1 OR 2 VW 2021-08-13 17:40:00 [facility] SURGICAL PATHOLOGY REQUEST 2021-08-13 17:14:00 [facility] POC GLUCOSE 2021-08-13 17:13:00 [facility] OR FL > 1 HOUR 2021-08-13 16:07:00 Jonathan Meng [facility] XR PELVIS 1 OR 2 VW 2021-08-13 16:01:00 [facility] CULTURE 2021-08-13 15:03:00 [facility] SODIUM LEVEL, SYRINGE 2021-08-13 15:03:00 O'Mayco Arriaga [facility] ARTERIAL BLOOD GAS, 2021-08-13 15:03:00 OMayco Schroeder [facility] CORRECTED HEMOGLOBIN, SYRINGE 2021-08-13 15:03:00 OMayco Schroeder [facility] POTASSIUM, SYRINGE 2021-08-13 15:03:00 O'Mayco Arriaga [facility] IONIZED CALCIUM, ARTERIAL 2021-08-13 15:03:00 O'Mayco Arriaga [facility] GLUCOSE LEVEL, SYRINGE 2021-08-13 15:03:00 O'Mayco Arriaga [facility] MAGNESIUM LEVEL 2021-08-13 15:03:00 O'Corina [facility] TRANSFUSE RED BLOOD CELLS 2021-08-13 15:03:00 Chip Oneal [facility] R [employer] CULTURE 2021-08-13 14:50:00 [facility] XR PELVIS 1 OR 2 VW 2021-08-13 14:50[facility] 2021-08-13 14:41:00 B[facility]yK[facility] AFB CULTURE 2021-08-13 14:35:00 [facility] 2021-08-13 14:30:00 [facility] ARTERIAL BLOOD GAS, 2021-08-13 14:07:00 O'Mayco Arriaga [facility] CORRECTED SODIUM LEVEL, SYRINGE 2021-08-13 14:07:00 O'Mayco Arriaga [facility] HEMOGLOBIN, SYRINGE 2021-08-13 14:07:00 O'Mayco Arriaga [facility] POTASSIUM, SYRINGE 2021-08-13 14:07:00 OMayco Schroeder [facility] IONIZED CALCIUM, ARTERIAL 2021-08-13 14:07:00 OMayco Schroeder [facility] GLUCOSE LEVEL, SYRINGE 2021-08-13 14:07:00 [facility] MAGNESIUM [facility]EL 2021-08-13 14:07:00 [facility] A[facility]OBIC CULTURE 2021-08-13 14:03:00 [facility] 2021-08-13 14:03:00 [facility] GRAM STAIN 2021-08-13 14:03:00 Braly, [facility] [employer] STAIN 2021-08-13 14:03:00 [facility] TISSUE CULTURE 2021-08-13 14:03:00 [facility] ANAEROBIC CULTURE 2021-08-13 13:50:00 [facility] 2021-08-13 13:50:00 [facility] FUNGUS SMEAR 2021-08-13 13:50:00 [facility] STAIN 2021-08-13 13:50:00 [facility] TISSUE CULTURE 2021-08-13 13:50:00 [facility] ANAEROBIC CULTURE 2021-08-13 13:41:00 Braly, [facility] FUNGUS CULTURE 2021-08-13 13:41:00 Braly, [facility] GRAM STAIN 2021-08-13 13:41:00 Braly, [facility] [employer] STAIN 2021-08-13 13:41:00 [facility] TISSUE CULTURE 2021-08-13 13:41:00 Braly, [facility] ANAEROBIC CULTURE 2021-08-13 13:35:00 Braly, [facility] FUNGUS CULTURE 2021-08-13 13:35:00 Braly, [facility] GRAM STAIN 2021-08-13 13:35:00 Braly, [facility] [employer] STAIN 2021-08-13 13:35:00 Braly, [facility] TISSUE CULTURE 2021-08-13 13:35:00 [facility] ANAEROBIC CULTURE 2021-08-13 13:30:00 [facility] FUNGUS CULTURE 2021-08-13 13:30:00 [facility] GRAM STAIN 2021-08-13 13:30:00 Zhou [facility] [employer] STAIN 2021-08-13 13:30:00 Zhou [facility] TISSUE CULTURE 2021-08-13 13:30:00 [facility] ARTERIAL BLOOD GAS, 2021-08-13 13:21:00 [facility] CORRECTED POTASSIUM, SYRINGE 2021-08-13 13:21:00 Mayco Langford [facility] SODIUM LEVEL, SYRINGE 2021-08-13 13:21:00 [facility] IONIZED CALCIUM, ARTERIAL 2021-08-13 13:21:00 Mayco Langford [facility] HEMOGLOBIN, SYRINGE 2021-08-13 13:21:00 Mayco Langford [facility] GLUCOSE LEVEL, SYRINGE 2021-08-13 13:21:00 Mayco Langford [facility] ARTERIAL LINE 2021-08-13 13:05:10 [facility] R CO AN ELECTIVE 2021-08-13 13:04:21 [facility] ENDOTRACHEAL AIRWAY R REVISION, ARTHROPLASTY, 2021-08-13 12:19:00 Zhou [facility] HIP CLOSURE, WOUND, LOWER 2021-08-13 12:19:00 Jonathan Meng [facility] EXTREMITY, USING ROTATION FLAP POC GLUCOSE 2021-08-13 11:40:00 Anastasiya [facility] HC COMPLETE BLD COUNT 2021-08-13 08:03:00 Mayco Langford [facility] W/AUTO DIFF XR FEMUR 2 VW RIGHT 2021-08-13 05:48:17 [facility] HIPS BILATERAL AP 2021-08-13 05:47:01 [facility] LATERAL W AP PELVIS TYPE AND SCREEN 2021-08-12 21:57:00 Anastasiya [facility] PREPARE RBC 2021-08-12 18:37:00 Jeremy Bills [facility] Maximino BASIC METABOLIC PANEL 2021-08-12 12:59:00 Yusra [facility] ESTIMATED GFR 2021-08-12 12:59:00 Mayco Langford [facility] B NATRIURETIC PEPTIDE 2021-08-12 10:19:[address] [facility] [place] HC COMPLETE BLD COUNT 2021-08-12 10:19:00 [facility] W/AUTO DIFF [facility] BASIC METABOLIC PANEL 2021-08-12 01:21:00 Yusra [facility] ESTIMATED GFR 2021-08-12 01:21:00 Mayco Langford [facility] CBC WITH PLATELET AND 2021-08-11 09:08:00 [facility] DIFFERENTIAL [facility] BASIC METABOLIC PANEL 2021-08-11 09:08:00 Mayco Langford [facility] B NATRIURETIC PEPTIDE 2021-08-11 09:08:00 Mayco Langford [facility] ESTIMATED GFR 2021-08-11 09:08:00 Mayco Arriaga [facility] MAGNESIUM LEVEL 2021-08-11 01:16:00 [facility] BASIC METABOLIC PANEL 2021-08-11 01:16:00 [facility] ESTIMATED GFR 2021-08-11 01:16:00 RaúlMayco Arriaga [facility] CBC WITH PLATELET AND 2021-08-10 09:31:00 Mayco Langford [facility] DIFFERENTIAL BASIC METABOLIC PANEL 2021-08-10 09:31:00 Mayco Langford [facility] HEPATIC FUNCTION PANEL 2021-08-10 09:31:00 [facility] ESTIMATED GFR 2021-08-10 09:31:00 Mayco Arriaga [facility] MAGNESIUM LEVEL 2021-08-10 04:07:00 Jonathan Meng spital BASIC METABOLIC PANEL 2021-08-10 04:07:00 [facility] ESTIMATED GFR 2021-08-10 04:07:00 [facility] XR CHEST 1 VW PORTABLE 2021-08-09 17:42:43 [facility] BASIC METABOLIC PANEL 2021-08-09 15:29:00 [facility] LEVEL 2021-08-09 15:29:00 Jonathan Meng spital ESTIMATED GFR 2021-08-09 15:29:00 Mayco Langford [facility] CBC WITH PLATELET AND 2021-08-09 08:56:00 [facility] DIFFERENTIAL [facility] CREATINE KINASE, TOTAL 2021-08-09 08:56:00 [facility] ([facility] Poly COMPREHENSIVE METABOLIC 2021-08-09 08:56:00 [facility] HospitalArriagaMayco buck [facility] PANEL B NATRIURETIC PEPTIDE 2021-08-09 08:56:00 [facility] ESTIMATED GFR 2021-08-09 08:56:00 [facility] TROPONIN 2021-08-09 05:22:00 [facility] ANTI-NEUTROPHILIC 2021-08-09 05:22:00 [facility] CYTOPLASMIC ABS PANEL [facility] RHEUMATOID FACTOR 2021-08-09 05:22:00 [facility] Poly BASIC METABOLIC PANEL 2021-08-09 01:55:[address] [facility] [place] MAGNESIUM LEVEL 2021-08-09 01:55:00 Jonathan Meng spital ESTIMATED GFR 2021-08-09 01:55:00 [facility] BASIC METABOLIC PANEL 2021-08-08 23:41:[address] [facility] [place] MAGNESIUM LEVEL 2021-08-08 23:41:00 Jonathan Meng spital TROPONIN 2021-08-08 23:41:00 Okunrintemi, [facility] HIV AG/AB COMBINATION 2021-08-08 23:41:00 Kelly Mcghee [facility] Poly ESTIMATED GFR 2021-08-08 23:41:00 Mayco Langford [facility] US CAROTID DUPLEX 2021-08-08 21:10:00 Gerardo Rivas [facility] BILATERAL RESPIRATORY PATHOGEN PANEL 2021-08-08 19:41:00 Selma Grigsby or [facility] WITH COVID-19 RT-PCR [facility] VANCOMYCIN LEVEL, TROUGH 2021-08-08 19:36:[address] [facility] TROPONIN 2021-08-08 19:36:00 Calista [facility] LACTIC ACID LEVEL 2021-08-08 19:36:00 Jose Grigsby [facility] ECG 12-LEAD 2021-08-08 18:54:16 Calista [facility] XR CHEST 1 VW PORTABLE 2021-08-08 16:55:00 Jose Grigsby [facility] ARTERIAL BLOOD GAS 2021-08-08 13:50:00 Anyi Ruby [facility] ECG 12-LEAD 2021-08-08 13:40:55 Calista [facility] RHEUMATOID FACTOR 2021-08-08 13:40:00 Jose Grigsby [facility] ALY 2021-08-08 13:40:00 Calista [facility] CYCLIC CITRULLINATED 2021-08-08 13:40:00 Jose Grigsby [facility] PEPTIDE AB, IGG [facility] LACTIC ACID LEVEL 2021-08-08 13:37:[address] [facility] HEPATIC FUNCTION PANEL 2021-08-08 13:37:00 Jose Grigsby [facility] TROPONIN 2021-08-08 13:37:00 Calista [facility] T4, FREE 2021-08-08 13:37:00 [facility] T3 2021-08-08 13:37:00 [facility] POC GLUCOSE 2021-08-08 13:30:00 Mayco Langford [facility] B NATRIURETIC PEPTIDE 2021-08-08 09:28:00 Mayco Langford [facility] FOLATE LEVEL 2021-08-08 09:28:00 [facility] HEMOGLOBIN A1C 2021-08-08 09:28:00 [facility] VITAMIN B12 LEVEL 2021-08-08 09:28:00 [facility] VITAMIN D 25 HYDROXY LEVEL 2021-08-08 09:28:00 [facility] BASIC METABOLIC PANEL 2021-08-08 09:28:[address] [facility] [place] HC COMPLETE BLD COUNT 2021-08-08 09:28:00 [facility] W/AUTO DIFF [facility] MAGNESIUM LEVEL 2021-08-08 09:28:00 [facility] ESTIMATED GFR 2021-08-08 09:28:00 Anastasiya [facility] POC GLUCOSE 2021-08-08 05:02:00 Anastasiya [facility] CT LOWER EXTREMITY WO 2021-08-08 01:40:14 Cecilia Robison [facility] CONTRAST RIGHT MAGNESIUM LEVEL 2021-08-08 01:00:00 [facility] BASIC METABOLIC PANEL 2021-08-08 01:00:[address] [facility] [place] ESTIMATED GFR 2021-08-08 01:00:00 Anastasiya [facility] US DUPLEX VENOUS LOWER 2021-08-07 19:45:00 Patti Ratliff [facility] EXTREMITY LEFT Amber TTE COMPLETE, W CONTRAST, 2021-08-07 19:19:00 Anastasiya [facility] W DOPPLER ([id number]) COVID-19 QUALITATIVE 2021-08-07 19:04:00 Unique Burks [facility] RT-PCR Helga CT ANGIOGRAM PE CHEST 2021-08-07 17:34:00 Geetha Ratliff [facility] HC COMPLETE BLD COUNT 2021-08-07 10:35:00 Mayco Langford [facility] W/AUTO DIFF BASIC METABOLIC PANEL 2021-08-07 10:35:00 OMayco Schroeder [facility] B NATRIURETIC PEPTIDE 2021-08-07 10:35:00 OMayco Schroeder [facility] THYROID STIMULATING 2021-08-07 10:35:00 Mayco Langford [facility] HORMONE TYPE AND SCREEN 2021-08-07 10:35:00 OMayco Schroeder [facility] ESTIMATED GFR 2021-08-07 10:35:00 [facility] XR CHEST 1 VW PORTABLE 2021-08-07 06:40:28 Mayco Langford [facility] COVID-19 ANTI-SPIKE IGG 2021-08-07 06:14:00 [facility] ANTIBODY TITER COVID-19 SEROLOGY PATIENT 2021-08-07 06:14:00 Elda [facility] SURVEILLANCE CBC WITH PLATELET AND 2021-08-07 06:14:00 Mayco Langford [facility] DIFFERENTIAL PROTHROMBIN TIME WITH INR 2021-08-07 06:14:00 Elda [facility] BASIC METABOLIC PANEL 2021-08-07 06:14:00 Mayco Langford [facility] MAGNESIUM LEVEL 2021-08-07 06:14:00 [facility] TROPONIN 2021-08-07 06:14:00 Brennon Tate spibernadette Hammer A PHOSPHORUS LEVEL 2021-08-07 06:14:00 Brennon Tate ospital Jose ESTIMATED GFR 2021-08-07 06:14:00 Elda [facility] ECG 12-LEAD 2021-08-07 05:43:53 Mayco Langford [facility] [id number] 2021-07-10 00:00:00 JONST.02 [facility] [id number] 2021-07-09 00:00:00 MATVA.01 [facility] [id number] 2021-07-09 00:00:00 MATVA.01 [facility] [id number] 2021-07-09 00:00:00 MATVA.01 [facility] [id number] 2021-07-09 00:00:00 AGUSTINA [facility] [id number] 2021-07-09 00:00:00 AGUSTINA [facility] [id number] 2021-05-21 00:00:00 MATVA.01 [facility] US DUPLEX ARTERIAL LOWER 2021-05-15 21:18:49 Royce Gibbons [facility] EXTREMITY BILATERAL [id number] 2021-03-15 00:00:00 MATVA.01 [facility] [QL] CBC (INCLUDES 2021-03-13 00:00:00 [facility] [...] PROTHROMBIN (FACTOR 2021-03-13 00:00:00 [facility] II) [id number] MUTATION ANALYSIS MRI SPINE EXTERNAL STUDY 2021-01-08 23:18:00 Robert Antony [facility] MA Digital Mammo Screening 2020-09-25 00:00:00 [facility] Elbert [id number] [QL] TSH, 3RD GENERATION 2020-04-14 00:00:00 [facility] W/REFLEX TO FT4 [QL] PROLACTIN 2020-04-14 00:00:00 [facility] MA Digital Mammo DX Elbert w 2020-04-14 00:00:00 [facility] [place] G0204 [place] [id number] 2019-08-23 00:00:00 [facility] [QLH] CULTURE, URINE, 2019-08-18 00:00:00 [facility] ROUTINE MA Digital Mammo DX Elbert 2019-08-13 00:00:00 [facility] G0204 US Breast Bilat [id number] 2019-08-13 00:00:00 [facility] MA Digital Mammo Screening 2019-08-09 00:00:00 [facility] [place]bert G0202 US Pelvis with Pelvis 2019-08-09 00:00:00 [facility] Transvaginal [id number] . [facility] - Affirm VPIII 2019-08-09 00:00:00 [...] Date Details Comments Source Future Scheduled Test 2022-11-05 Pneumococcal Vaccine: [facility] 15:15:39 Pediatrics (0 to 5 Years) and At-Risk Patients (6 to 64 Years) (1 - PCV) [code = Pneumococcal Vaccine: Pediatrics (0 to 5 Years) and At-Risk Patients (6 to 64 Years) (1 - PCV)] Future Scheduled Test 2022-11-05 Hepatitis C screening [facility] 15:15:39 (procedure) [code = 579612306] Future Scheduled Test 2022-11-05 SHINGLES VACCINES (1 [facility] 15:15:39 of 2) [code = SHINGLES VACCINES (1 of 2)] Future Scheduled Test 2022-11-05 COLONOSCOPY SCREENING [facility] 15:15:39 [code = COLONOSCOPY SCREENING] Future Scheduled Test 2022-11-05 [facility] 15:15:39 SCREENING [code = BREAST CANCER SCREENING] Future Scheduled Test 2022-11-05 [facility] 15:15:39 malignant neoplasm of cervix (procedure) [code = 375588979] Future Scheduled Test 2022-11-05 HEPATITIS B VACCINES [facility] 15:15:39 (1 of 3 - Risk 3-dose series) [code = HEPATITIS B VACCINES (1 of 3 - Risk 3-dose series)] Future Scheduled Test 2022-11-05 COVID-19 VACCINE (4 - [facility] 15:15:39 Booster for Moderna series) [code = COVID-19 VACCINE (4 - Booster for Moderna series)] Future Scheduled Test 2022-11-05 INFLUENZA VACCINE [facility] 15:15:39 [code = INFLUENZA VACCINE] Future Scheduled Test 2022-10-01 Pneumococcal Vaccine: [facility] 03:44:26 Pediatrics (0 to 5 Years) and At-Risk Patients (6 to 64 Years) (1 - PCV) [code = Pneumococcal Vaccine: Pediatrics (0 to 5 Years) and At-Risk Patients (6 to 64 Years) (1 - PCV)] Future Scheduled Test 2022-10-01 Hepatitis C screening [facility] 03:44:26 (procedure) [code = [id number]] Future Scheduled Test 2022-10-01 SHINGLES VACCINES (1 [facility] 03:44:26 of 2) [code = SHINGLES VACCINES (1 of 2)] Future Scheduled Test 2022-10-01 COLONOSCOPY SCREENING [facility] 03:44:26 [code = COLONOSCOPY SCREENING] Future Scheduled Test 2022-10-01 [facility] 03:44:26 SCREENING [code = BREAST CANCER SCREENING] Future Scheduled Test 2022-10-01 [facility] 03:44:26 malignant neoplasm of cervix (procedure) [code = [id number]] Future Scheduled Test 2022-10-01 HEPATITIS B VACCINES [facility] 03:44:26 (1 of 3 - Risk 3-dose series) [code = HEPATITIS B VACCINES (1 of 3 - Risk 3-dose series)] Future Scheduled Test 2022-10-01 COVID-19 [facility]ACCINE ([facility] 03:44:26 Booster for Moderna series) [code = COVID-19 VACCINE (4 - Booster for Moderna series)] Future Scheduled Test 2022-10-01 INFLUENZA VACCINE [facility] 03:44:26 [code = INFLUENZA VACCINE] Future Scheduled Test 2021-12-12 Hepatitis C screening [facility] 09:07:24 (procedure) [code = 214615002] Future Scheduled Test 2021-12-12 COLONOSCOPY SCREENING [facility] 09:07:24 [code = COLONOSCOPY SCREENING] Future Scheduled Test 2021-12-12 SHINGLES VACCINES [facility] 09:07:24 (#1) [code = SHINGLES VACCINES (#1)] Future Scheduled Test 2021-12-12 BREAST CANCER [facility] 09:07:24 SCREENING [code = BREAST CANCER SCREENING] Future Scheduled Test 2021-12-12 INFLUENZA VACCINE [facility] 09:07:24 [code = INFLUENZA VACCINE] Future Scheduled Test 2021-12-12 COVID-19 VACCINE ([address] [place] [address] 09:07:24 Booster for Moderna series) [code = COVID-19 VACCINE (3 - Booster for Moderna series)] Future Scheduled Test 2021-12-12 Screening for [facility] 09:07:24 malignant neoplasm of cervix (procedure) [code = 456989979] Future Scheduled Test 2021-12-04 Hepatitis C screening [facility] 08:56:23 (procedure) [code = 373325129] Future Scheduled Test 2021-12-04 COLONOSCOPY SCREENING [facility] 08:56:23 [code = COLONOSCOPY SCREENING] Future Scheduled Test 2021-12-04 SHINGLES VACCINES [facility] 08:56:23 (#1) [code = SHINGLES VACCINES (#1)] Future Scheduled Test 2021-12-04 BREAST CANCER [facility] 08:56:23 SCREENING [code = BREAST CANCER SCREENING] Future Scheduled Test 2021-12-04 INFLUENZA VACCINE [facility] 08:56:23 [code = INFLUENZA VACCINE] Future Scheduled Test 2021-12-04 COVID-19 VACCINE ([address] [place] [address] 08:56:23 Booster for Moderna series) [code = COVID-19 VACCINE (3 - Booster for Moderna series)] Future Scheduled Test 2021-12-04 Screening for Metho [facility] 08:56:23 malignant neoplasm of cervix (procedure) [code = 050907945] Instructions [facility] Encounters Start End Encounter Admission Attending Care Care Encounter Source Date/Time Date/Time Type Type Clinicians Facility Department ID 2022-07-04 [id number] 07:30:00 Felix [id number] [facility] 2021-11-16 Outpatient PARRISH, [facility] [id number] [place] 15:45:02 [facility] 2022-11-05 2022-11-05 Telephone Connor 1.2.840.1 [id number] Methodi 00:00:00 00:00:00 , Mary [address]65.1.[address] 3.430.2.7 Hospit a .3.862337 l .8 2022-10-22 2022-10-22 Outpatient FOG_Braly_H AOSM AOSM [id number] Nathalie 00:00:00 00:00:00 Sharath [id number] Orth ope dic Sports Medicin e 2022-10-22 2022-10-22 Felix Rojas AOS[facility] [place] - Ortho [id number] Nathalie 00:00:00 00:00:00 Cathy Bliss MD: [id number] FOG_Ofc dic [facility] [place] [address] , Ph. [phone] 2022-10-15 2022-10-15 Outpatient FOG_Braly_H AOSM AOSM [id number] Nathalie 00:00:00 00:00:00 Sharath [id number] Orth ope dic Sports Medicin e 2022-10-14 2022-10-14 Telephone Prashant .2.840.1 [id number] Methodi 00:00:00 00:00:[address] 3.430.2.7 Hospit a .3.571520 l .8 2022-10-09 2022-10-09 Outpatient FOG_Braly_H AOSM AOSM [id number] Nathalie 00:00:00 00:00:00 Sharath [id number] Orth ope dic Sports Medicin e 2022-10-09 2022-10-09 Yahir [place] [place] - Orth[place] [id number] Nathalie 00:00:00 00:00:00 Cathy Hendrix MD: [id number] FOG_Ofc dic [facility] Sp[facility] [place] [address] , Ph. [phone] 2022-10-07 2022-10-07 Orders Doctor BENY 1.2.840.114 [id number] Univers 00:00:00 00:00:00 Only Unassigned, TERESA 350.1.13.10 ity of [place] [facility] 4.2.7.2.[phone] [facility] [address] 2022-10-01 2022-10-01 Transition KEN Padilla 1.2.840.114 [id number] Univers 00:00:00 00:00:00 of Care Raphael Santosh LEYVA 350.1.13.10 ity of [place] [place] [id number] [facility] [address] 2022-09-28 2022-09-29 Inpatient U NAE [facility] [id number] Univers 10:56:00 15:19:00 MIKA ity of [facility] 2022-09-28 2022-09-29 Hospital NaeJAYSHREE dailey 1.2.840.114 [id number] Univers 10:56:00 15:19:00 Encounter Mika TERESA 350.1.13.10 ity of [facility] 4.2.7.2.[id number] [facility] [address] 2022-09-20 2022-09-20 Telephone Connor 1.2.840.1 [id number] Methodi 00:00:00 00:00:00 , Mary 58153.1.[address] 3.430.2.7 Hospit a .3.848345 l .8 2022-09-20 2022-09-20 Telephone Ryan 1.2.840.1 [id number] Methodi 00:00:00 00:00:00 , Mary [address]301.1.[address] 3.430.2.7 Hospit a .3.584909 l .8 2022-09-18 2022-09-18 Telephone Ryan 1.2.840.1 [id number] Methodi 00:00:00 00:00:00 , Mary 87519.1.[address] 3.430.2.7 Hospit a .3.946587 l .8 2022-09-18 2022-09-18 Telephone Ryan 1.2.840.1 [id number] Methodi 00:00:00 00:00:00 , Mary 79617.1.[address] 3.430.2.7 Hospit a .3.604348 l .8 2022-09-17 2022-09-17 Office Natelson, 1.2.840.1 [id number] [id number] Methodi 09:30:00 10:30:00 Visit Deuce A. 07398.1.[address] 3.430.2.7 Hospit a .3.006587 l .8 2022-09-17 2022-09-17 Office Natelson, 1.2.840.1 [id number] [id number] Methodi 09:30:00 10:30:00 Visit Deuce A. 59705.1.[address] 3.430.2.7 Hospit a .3.091424 l .8 2022-09-17 2022-09-17 Lab Natelson, 1.2.840.1 [id number] [id number] Methodi 09:30:00 09:35:[address] Deuce [address]12.1.[address] 3.430.2.7 Hospit a .3.971609 l .8 2022-09-17 2022-09-17 Lab Natelson, 1.2.840.1 [id number] 2099 [id number] Methodi 09:30:00 09:35:[address] 3.430.2.7 Hospit a .3.651227 l .8 2022-09-17 2022-09-17 Orders Lalen, 1.2.840.1 [id number] Methodi 00:00:00 00:00:00 Only Lolly 67390.1.[address] 3.430.2.7 Hospit a .3.424880 l .8 2022-09-17 2022-09-17 Travel 1.2.840.1 1.2.465.719 [id number] Methodi 00:00:00 00:00:[address] 3.430.2.7 0.2.7.3.698 Ho spita .3.189845 084.8 l .8 2022-09-17 2022-09-17 Orders Allen, 1.2.840.1 [id number] Methodi 00:00:00 00:00:00 Only Lolly 55770.1.[address] 3.430.2.7 Hospit a .3.901245 l .8 2022-09-17 2022-09-17 Travel 1.2.840.1 1.2.810.652 3085 [id number] Methodi 00:00:00 00:00:[address] 3.430.2.7 0.2.7.3.698 Ho spita .3.386479 084.8 l .8 2022-09-13 2022-09-13 Orders Allen, 1.2.840.1 [id number] Methodi 00:00:00 00:00:00 Only Lolly 32952.1.[address] 3.430.2.7 Hospit a .3.243131 l .8 2022-09-13 2022-09-13 Orders Allen, 1.2.840.1 [id number] Methodi 00:00:00 00:00:00 Only Lolly 24688.1.[address] 3.430.2.7 Hospit a .3.514794 l .8 2022-09-04 2022-09-04 Office [facility], 1.2.840.1 [id number] Methodi 08:30:00 09:03:37 Visit Carlos 30034.1.[address] Deon 3.430.2.7 Hospit a .3.099750 l .8 2022-09-04 2022-09-04 Office [facility], 1.2.840.1 [id number] 21 [id number] Methodi 08:30:00 09:03:37 Visit Carlos [address]304.1.[address] [place] 3.430.2.7 Hospit a .3.654859 l .8 2022-09-04 2022-09-04 Travel 1.2.840.1 1.2.843.092 [id number] Methodi 00:00:00 00:00:[address] 3.430.2.7 0.2.7.3.698 Ho spita .3.089415 084.8 l .8 2022-09-04 2022-09-04 Travel 1.2.840.1 1.2.332.285 1641 [id number] Methodi 00:00:00 00:00:[address] 3.430.2.7 0.2.7.3.698 Ho spita .3.947675 084.8 l .8 2022-09-03 2022-09-03 Outpatient FOG_Braly_H AO AO 567 4941-20 Nathalie 00:00:00 00:00:00 Sharath [id number] Orth ope dic Sports Medicin e 2022-09-03 2022-09-03 [place] - Ortho [id number] Nathalie 00:00:00 00:00:00 EDUARD Epperson, Cathy Isabel - Laila SCHMIDT: [address] F[address] [facility] [address] [address], Sugar [place] [facility] [address] , Ph. [phone] 2022-09-02 2022-09-02 Outpatient FOG_Braly_H AOSM AOSM 567 4941-20 Nathalie 00:00:00 00:00:00 Sharath 093412 Orth ope dic Sports Medicin e 2022-09-01 2022-09-01 Outpatient FOG_Braly_H AOSM AOSM 567 4941-20 Nathalie 00:00:00 00:00:00 Sharath 596727 Orth ope dic Sports Medicin e 2022-08-27 2022-08-27 Outpatient FOG_Braly_H AOSM AOSM 567 4941-20 Nathalie 00:00:00 00:00:00 Sharath 751036 Orth ope dic Sports Medicin e 2022-08-27 2022-08-27 Oncology Peters, 1.2.840.1 [id number] 2099 347961 Methodi 00:00:00 00:00:00 Survivorsh Chase 23254.1.1 986 s t ip 3.430.2.7 Hospit a .3.967180 l .8 2022-08-27 2022-08-27 Oncology Peters, 1.2.840.1 [id number] 2099 309485 Methodi 00:00:00 00:00:00 Survivorsh Chase 75910.1.1 986 s t ip 3.430.2.7 Hospit a .3.088706 l .8 2022-08-27 2022-08-27 Felix Rojas [place] - Ortho [id number] 8 Nathalie 00:00:00 00:00:00 Cathy Bliss MD: 7401 FOG_Ofc dic [facility] [place] [address] , Ph. [phone] 2022-08-26 2022-08-26 Telephone Remi Garcia 1.2.840.1 [id number] Methodi 00:00:00 00:00:[address] 3.430.2.7 Hospit a .3.729504 l .8 2022-08-262022-08-26 Telephone Remi Garcia 1.2.840.1 [id number] Methodi 00:00:00 00:00:[address] 3.430.2.7 Hospit a .3.236702 l .8 2022-08-23 2022-08-23 [facility], 1.2.840.1 [id number] 2 [id number] Methodi 09:32:17 23:59:00 Encounter Kinmarcos 17117.1.[address] Deon 3.430.2.7 Hospit a .3.857227 l .8 2022-08-23 2022-08-23 [facility], 1.2.840.1 [id number] 2 [id number] Methodi 09:32:17 23:59:00 Encounter Kinmarcos 85019.1.[address] Deon 3.430.2.7 Hospit a .3.418767 l .8 2022-08-23 2022-08-23 Travel 1.2.840.1 1.2.324.836 5581 737992 Methodi 00:00:00 00:00:[address] 3.430.2.7 0.2.7.3.698 Ho spita .3.215423 084.8 l .8 2022-08-23 2022-08-23 [facility] 706 [id number] [place] 00:00:00 00:00:[address] 2022-08-23 2022-08-23 Travel 1.2.840.1 1.2.072.833 8882 878769 Methodi 00:00:00 00:00:[address] 3.430.2.7 0.2.7.3.698 Ho spita .3.335909 084.8 l .8 2022-08-19 2022-08-20 Emergency Mccabe, 1.2.840.1 [id number] 252 [id number] Methodi 23:02:00 05:10:[address] Peter 3.430.2.7 Hospit a .3.893686 l .8 2022-08-19 2022-08-20 Emergency Mccabe, 1.2.840.1 [id number] 360 [id number] Methodi 23:02:00 05:10:[address] Peter 3.430.2.7 Hospit a .3.766042 l .8 2022-08-20 2022-08-20 Telephone Allen, 1.2.840.1 [id number] 2 [id number] Methodi 00:00:00 00:00:[address] 3.430.2.7 Hospit a .3.548104 l .8 2022-08-20 2022-08-20 Travel 1.2.840.1 1.2.656.736 1998 542435 Methodi 00:00:00 00:00:[address] 3.430.2.7 0.2.7.3.698 Ho spita .3.279274 084.8 l .8 2022-08-20 2022-08-20 Telephone Ryan 1.2.840.1 [id number] Methodi 00:00:00 00:00:00 , Mary 19752.1.[address] 3.430.2.7 Hospit a .3.766106 l .8 2022-08-20 2022-08-20 Telephone [facility], 1.2.840.1 [id number] Methodi 00:00:00 00:00:[address] Deon 3.430.2.7 Hospit a .3.948104 l .8 2022-08-20 2022-08-20 Telephone Allen, 1.2.840.1 [id number] 2 [id number] Methodi 00:00:00 00:00:[address] 3.430.2.7 Hospit a .3.945460 l .8 2022-08-20 2022-08-20 Travel 1.2.840.1 1.2.997.948 7948 574932 Methodi 00:00:00 00:00:[address] 3.430.2.7 0.2.7.3.698 Ho spita .3.855723 084.8 l .8 2022-08-20 2022-08-20 Telephone Ryan 1.2.840.1 [id number] Methodi 00:00:00 00:00:00 , Mary 80024.1.[address] 3.430.2.7 Hospit a .3.640202 l .8 2022-08-20 2022-08-20 Telephone [place], 1.2.840.1 [id number] Methodi 00:00:00 00:00:[address] Deon 3.430.2.7 Hospit a .3.062051 l .8 2022-08-19 2022-08-19 Orders Ryan 1.2.840.1 [id number] 21 [id number] Methodi 00:00:00 00:00:00 Only , Mary 26189.1.[address] 3.430.2.7 Hospit a .3.581865 l .8 2022-08-19 2022-08-19 Orders Ryan 1.2.840.1 [id number] 21 [id number] Methodi 00:00:00 00:00:00 Only , Mary 61201.1.[address] 3.430.2.7 Hospit a .3.565571 l .8 2022-08-14 2022-08-14 Office [facility], 1.2.840.1 [id number] Methodi 08:30:00 09:00:00 Visit Carlos 94226.1.[address] Deon 3.430.2.7 Hospit a .3.722876 l .8 2022-08-14 2022-08-14 [facility] 1.2.840.1 [id number] Methodi 08:30:00 09:00:00 Visit Carlos 55650.1.[address] Deon 3.430.2.7 Hospit a .3.660964 l .8 2022-08-14 2022-08-14 Telephone Ryan 1.2.840.1 [id number] Methodi 00:00:00 00:00:00 , Mary 82592.1.[address] 3.430.2.7 Hospit a .3.003104 l .8 2022-08-14 2022-08-14 Orders Ryan 1.2.840.1 [id number] 77928979 Methodi 00:00:00 00:00:00 Only , Mary 77317.1.[address] 3.430.2.7 Hospit a .3.224500 l .8 2022-08-14 2022-08-14 Travel 1.2.840.1 1.2.183.421 3730 670580 Methodi 00:00:00 00:00:[address] 3.430.2.7 0.2.7.3.698 Ho spita .3.776479 084.8 l .8 2022-08-14 2022-08-14 Telephone Ryan 1.2.840.1 [id number] Methodi 00:00:00 00:00:00 , Mary 57081.1.[address] 3.430.2.7 Hospit a .3.981985 l .8 2022-08-14 2022-08-14 Orders Ryan 1.2.840.1 [id number] 57821099 Methodi 00:00:00 00:00:00 Only , Mary 64851.1.[address] 3.430.2.7 Hospit a .3.340551 l .8 2022-08-14 2022-08-14 Travel 1.2.840.1 1.2.666.187 4083 475896 Methodi 00:00:00 00:00:[address] 3.430.2.7 0.2.7.3.698 Ho spita .3.675238 084.8 l .8 2022-08-12 2022-08-12 Travel 1.2.840.1 1.2.969.387 9083 220991 Methodi 00:00:00 00:00:[address] 3.430.2.7 0.2.7.3.698 Ho spita .3.814182 084.8 l .8 2022-08-12 2022-08-12 Travel 1.2.840.1 1.2.812.162 6115 007399 Methodi 00:00:00 00:00:[address] 3.430.2.7 0.2.7.3.698 Ho spita .3.653347 084.8 l .8 2022-08-11 2022-08-11 Outpatient FOG_Braly_H AOSM AOSM 567 4941-20 Nathalie 00:00:00 00:00:00 Sharath 105172 [facility] ope dic Sports Medicin e 2022-08-01 2022-08-01 Travel 1.2.840.1 1.2.394.850 0298 271668 Methodi 00:00:00 00:00:[address] 3.430.2.7 0.2.7.3.698 Ho spita .3.982385 084.8 l .8 2022-08-01 2022-08-01 Travel 1.2.840.1 1.2.575.217 5614 896946 Methodi 00:00:00 00:00:[address] 3.430.2.7 0.2.7.3.698 Ho spita .3.855667 084.8 l .8 2022-07-19 2022-07-19 Outpatient FOG_Braly_H AOSM AOSM 567 4941-20 Nathalie 00:00:00 00:00:00 Sharath 583628 Orth ope dic Sports Medicin e 2022-07-19 2022-07-19 Outpatient TRISTIAN Bliss 3bbcdc c6-3 00:00:00 00:00:00 Felix Rojas 04a-11ed-b [id number] 2022-07-19 2022-07-19 Felix Rojas AOSM [place] - Orth[place] [id number] 9 Nathalie 00:00:00 00:00:00 Cathy Bliss Chalo rueda MD: 7401 FOG_Ofc dic [facility] [place], [place] [address] , Ph. [phone] 2022-07-16 2022-07-16 Outpatient FOG_Braly_H AOSM AOSM 567 4941-20 Nathalie 00:00:00 00:00:00 Sharath 302549 Orth ope dic Sports Medicin e 2022-07-08 2022-07-08 Outpatient FOG_Braly_H AOSM AOSM 567 4941-20 Nathalie 00:00:00 00:00:00 Sharath 364245 Orth ope dic Sports Medicin e 2022-07-04 2022-07-05 Inpatient Ruthy [facility] [id number] [facility] 05:59:00 20:15:00 Felix [facility] 2022-07-01 2022-07-01 Outpatient FOG_Braly_H AOSM AOSM 567 4941-20 Nathalie 00:00:00 00:00:00 Sharath 025154 Orth ope dic Sports Medicin e 2022-06-14 2022-06-14 Outpatient FOG_Braly_H AOSM AOSM 567 4941-20 Nathalie 00:00:00 00:00:00 Sharath 138514 Orth ope dic Sports Medicin e 2022-06-11 2022-06-11 Outpatient FOG_Braly_H AOSM AOSM 567 4941-20 Nathalie 00:00:00 00:00:00 Sharath 077719 Orth ope dic Sports Medicin e 2022-06-10 2022-06-10 Outpatient FOG_Braly_H AOSM AOSM 567 4941-20 Nathalie 00:00:00 00:00:00 Sharath 593897 Orth ope dic Sports Medicin e 2022-06-04 2022-06-04 Outpatient YANIRA Bliss LABO [id number] [facility] 16:17:00 16:17:[address] [place] [address] 2022-06-04 2022-06-04 Outpatient FOG_Braly_H AOSM AOSM 567 4941-20 Nathalie 03:42:00 03:42:00 Sharath 424279 Orth ope dic Sports Medicin e 2022-06-04 2022-06-04 Outpatient Zhou, AOSM AOSM [id number] 4-0 00:00:00 00:00:00 [place] dc2-11ed-b [id number] 2022-06-04 2022-06-04 [place]OSM [place] - [place] [id number] Nathalie 00:00:00 00:00:00 EDUARD Epperson [facility]ope MD: 10771 FOG_Ofc dic [place] [address], [place] [address] , Ph. [phone] 2022-05-29 2022-05-29 Outpatient FOG_Braly_H AOSM AOSM 567 4941-20 Nathalie 06:47:00 06:47:00 Sharath 049635 Orth ope dic Sports Medicin e 2022-05-29 2022-05-29 Outpatient Ruthy AOMONICA AOSM 2c6fcc 38-0 00:00:00 00:00:00 Felix Roajs 881-11ed-b [id number] 2022-05-29 2022-05-29 Felix Crystal [place] - [place] [id number] 0 Nathalie 00:00:00 00:00:00 Cathy Bliss MD: 7401 FOG_Ofc dic [facility] [address] , Ph. [phone] 2022-05-28 2022-05-28 Outpatient FOG_Braly_H AOSM AOSM 567 4941-20 Nathalie 05:09:00 05:09:00 Sharath 736265 Orth ope dic Sports Medicin e 2022-05-24 2022-05-24 Outpatient FOG_Braly_H AOSM AOSM 567 4941-20 Nathalie 03:57:00 03:57:00 Sharath 883591 Orth ope dic Sports Medicin e 2022-05-22 2022-05-22 Outpatient FOG_Mathews AOSM AOSM 567 4941-20 Nathalie 05:14:00 05:14:00 _Raji 755729 Orth ope dic Sports Medicin e 2022-05-22 2022-05-22 Outpatient TRISTIAN Bliss AOSM [id number] 12-0 00:00:00 00:00:00 Felix Rojas 875-11ed-b [id number] 2022-05-22 2022-05-22 Felix Rojas [place]OS[place] - Orth[place] [id number] 3 Nathalie 00:00:00 00:00:00 Cathy Bliss MD: 7401 FOG_Ofc dic [facility], [place] [address] , Ph. [phone] 2022-05-20 2022-05-20 Outpatient FOG_Mathews AOSM AOSM 567 4941-20 Nathalie 01:59:00 01:59:00 _Raji 566871 Orth ope dic Sports Medicin e 2022-05-10 2022-05-10 Outpatient FOG_Mathews AOSM AOSM 567 4941-20 Nathalie 04:07:00 04:07:00 _Raji 375010 Orth ope dic Sports Medicin e 2022-04-30 2022-04-30 Emergency [place], 1.2.840.1 [id number] 2100 304910 Methodi 15:49:00 19:36:[address] [facility] 3.430.2.7 Hospit a .3.333027 l .8 2022-04-302022-04-30 Emergency [place], 1.2.840.1 [id number] 2099 140205 Methodi 15:49:00 19:36:[address] Lydia 3.430.2.7 Hospit a .3.984046 l .8 2022-04-30 2022-04-30 Travel 1.2.840.1 1.2.034.208 8529 552743 Methodi 00:00:00 00:00:[address] 3.430.2.7 0.2.7.3.698 Ho spita .3.713334 084.8 l .8 2022-04-30 2022-04-30 Travel 1.2.840.1 1.2.552.777 6418 387420 Methodi 00:00:00 00:00:[address] 3.430.2.7 0.2.7.3.698 Ho spita .3.811076 084.8 l .8 2021-11-20 2021-11-20 Outpatient NADINE EppersonCL LABO [id number] [facility] 18:40:00 18:40:[address] 2021-11-20 2021-11-20 Outpatient NADINE AbreuTO RADI [id number] [facility] 13:14:00 13:14:[address] Orthope dic Hospita 2021-08-21 2021-08-21 Telephone Akiko Luong [facility] 6410 1.2.840. 114 [id number] [place] 00:00:00 00:00:[address] 350.1.13.58 Health 9.2.7.2.686 [id number] 7 2021-08-06 2021[facility] [id number] 2099 177461 Methodi 20:50:00 15:08:00 Ld Keenan 99291.1.[address] 3.430.2.7 Hospit a .3.470738 l .8 2021-08-13 2021-08-13 Surgery Zhou, 1.2.840.1 [id number] 271873 9777 Methodi 07:15:00 12:35:00 [address] Oconnor [address] 3.430.2.7 Hospit a .3.094975 l .8 2021-08-13 2021-08-13 Anesthesia Deny Oneal 1.2.840. 1 [id number] Methodi 07:20:00 12:14:00 Event Unique Burks 81380.1.[address] 3.430.2.7 Hospit a .3.292216 l .8 2021-08-04 2021-08-06 Inpatient LIA Zheng ADMI [id number] [facility] 14:51:00 20:45:00 Yahir 52 [facility] 2021-08-04 2021-08-04 [id number] [facility] 22:10:00 22:10:00 Yahir 80 [facility] 2021-07-09 2021-07-13 Inpatient NADINE ZhengTO SURG [id number] [facility] 09:31:00 19:36:00 Yahir 66 [facility] 2021-07-05 2021-07-05 Outpatient NADINE ZhengCL LABO [id number] [facility] 18:29:00 18:29:00 Yahir 89 [facility] 2021-06-27 2021-06-27 Telephone Carroll Avendano 1.2.840.1 [id number] 21 [id number] Methodi 00:00:00 00:00:[address] 3.430.2.7 Hospit a .3.429090 l .8 2021-06-22 2021-06-22 Outpatient YANIRA Zheng LABO [id number] [facility] 18:09:00 18:09:00 Yahir 07 [facility] 2021-06-22 2021-06-22 Outpatient NADINE ZhengTO RADI [id number] [facility] 10:16:00 10:16:00 Yahir 84 [place] [facility] 2021-05-21 2021-05-22 Inpatient EL LIA Hendrix ADMI [id number] [facility] 10:04:00 13:24:00 Yahir 68 [place] [facility] 2021-05-17 2021-05-17 Telephone Edwige, 1.2.840.1 [id number] 2100 008692 Methodi 00:00:00 00:00:[address] 3.430.2.7 Hospit a .3.888688 l .8 2021-05-15 2021-05-15 Travel 1.2.840.1 1.2.072.331 3236 173244 Methodi 00:00:00 00:00:[address] 3.430.2.7 0.2.7.3.698 Ho spita .3.676493 084.8 l .8 2021-05-15 2021-05-15 Outpatient EDWIGE [facility] [id number] 638 [place] 00:00:00 00:00:00 ROYCE [address] 2021-04-27 2021-04-27 Outpatient NADINE Hendrix LABO [id number] [facility] 18:17:00 18:17:00 Yahir 38 [facility] 2021-04-24 2021-04-24 Office Gibbons, 1.2.840.1 [id number] 608614 0315 Methodi 08:55:49 11:43:07 Visit Royce Suazo 56068.1.[address] 3.430.2.7 Hospit a .3.699519 l .8 2021-04-24 2021-04-24 Travel 1.2.840.1 1.2.907.837 0514 643337 Methodi 00:00:00 00:00:[address] 3.430.2.7 0.2.7.3.698 Ho spita .3.215140 084.8 l .8 2021-04-19 2021-04-19 Outpatient LIA Zheng [facility] [id number] [facility] 10:32:00 10:32:00 Yahir 54 [facility] 2021-04-03 2021-04-03 Telephone FERNANDO Townsend [facility] 4 1.2.840.114 1 [id number] 00:00:00 00:00:00 Steve 350.1.13.58 9.2.7.2.686 [id number] 4 2021-04-03 2021-04-03 Telephone FERNANDO Townsend [facility] 4 1.2.840.114 1 [id number] [place] 00:00:00 00:00:00 Steve 350.1.13.58 He alth 9.2.7.2.686 [id number] 4 2021-03-30 2021-03-30 Travel 1.2.840.1 1.2.595.967 5953 857639 Methodi 00:00:00 00:00:[address] 3.430.2.7 0.2.7.3.698 Ho spita .3.679795 084.8 l .8 2021-03-17 2021-03-17 Inpatient LIA Zheng LIA [id number] [facility] 19:18:01 19:18:01 Yahir 28 [facility] 2021-03-13 2021-03-13 Appointmen ADULT, [facility] [id number] [place] 13:00:00 13:00:00 t; ADULT, THROMBOSIS Hemophilia Physici THROMBOSIS and ans Thrombophil ia Center - [facility] 2021-03-09 2021-03-09 Outpatient Simeon YANIRA LABO [id number] [facility] 17:53:00 17:53:00 Yahir 92 [facility] 2021-03-09 2021-03-09 Outpatient Simeon [facility]Ë [facility] [id number] [facility] 13:36:00 13:36:00 [facility]ahir [facility] 2021-03-06 2021-03-06 Outpatient NADINE BlissJENNIE FITZGERALD [id number] [facility] 13:56:26 13:56:26 Felix 05 [facility] 2021-01-26 2021-01-26 [facility], 1.2.840.1 [id number] 061231 5126 Methodi 00:00:00 00:00:00 Only Robert Kee 53230.1.1 082 s t 3.430.2.7 Hospit a .3.193141 l .8 2021-01-22 2021-01-22 [facility], 1.2.840.1 [id number] 61276 96028 Methodi 17:08:49 23:59:00 Encounter Robert Kee 65772.1.[address] 3.430.2.7 Hospit a .3.038628 l .8 2021-01-22 2021-01-22 [facility], 1.2.840.1 [id number] 01110 14156 Methodi 17:08:23 23:59:00 Encounter Robert Kee 96842.1.[address] 3.430.2.7 Hospit a .3.800933 l .8 2021-01-22 2021-01-22 Office Mernoe, 1.2.840.1 [id number] 098522 5564 Methodi 14:40:52 16:01:45 Visit Marissa Frank 55284.1.1 067 s t 3.430.2.7 Hospit a .3.070659 l .8 2021-01-22 2021-01-22 Travel 1.2.840.1 1.2.454.230 3289 095653 Methodi 00:00:00 00:00:[address] 3.430.2.7 0.2.7.3.698 Ho spita .3.142611 084.8 l .8 2021-01-20 2021-01-20 Emergency Bella, 1.2.840.1 [id number] 2 [id number] Methodi 16:16:00 16:58:[address] 3.430.2.7 Hospit a .3.712571 l .8 2021-01-20 2021-01-20 Travel 1.2.840.1 1.2.957.953 2724 378330 Methodi 00:00:00 00:00:[address] 3.430.2.7 0.2.7.3.698 Ho spita .3.884557 084.8 l .8 2021-01-20 2021-01-20 Documentat Provider, 1.2.840.1 [id number] 2 [id number] Methodi 00:00:00 00:00:00 ion Unknown 05991.1.[address] 3.430.2.7 Hospit a .3.823185 l .8 2021-01-16 2021-01-16 Travel 1.2.840.1 1.2.796.346 5435 936720 Methodi 00:00:00 00:00:[address] 3.430.2.7 0.2.7.3.698 Ho spita .3.336450 084.8 l .8 2020-10-16 2020-10-16 Laboratory Lab, [facility] Fam Pob I [facility] 1.2. 840.114 [id number] Univers 16:55:10 17:15:10 Only Max Mendez [facility] 350.1.13.10 ity of [place] 4.2.7.2.686 Jairo as Professio [phone] Mn dical [address] Office Building [employer] 2020-10-16 2020-10-16 Laboratory Lab, [facility] 1.2.840.114 [id number] 16:55:10 17:15:10 Only Fam Pob I Health 350.1.13.10 [place] 4.2.7.2.686 Professio [phone] [place] [address] [address] [employer] 2020-10-16 2020-10-16 Outpatient R TORI [facility] [id number] Univers 16:40:00 16:40:00 MAX ity of [facility] 2020-10-16 2020-10-16 Letter Doctor BENY 1.2.840.114 [id number] Univers 00:00:00 00:00:00 (Out) Unassigned, TERESA 350.1.13.10 ity of [place] [facility] 4.2.7.2.[phone] [facility] [address] 2020-10-16 2020-10-16 Letter Doctor BENY 1.2.840.114 [id number] 64 00:00:00 00:00:00 (Out) Unassigned, TERESA 350.1.13.10 [facility] 4.2.7.2.686 [id number] 044 2020-09-25 2020-09-25 Appointmen FERNANDO MCKEON [facility] [id number] [place] 09:00:00 09:00:00 t; LUCAS MCKEON M.D. [facility] Kristi ZAVALA M.D. 2020-08-03 2020-08-03 Outpatient GIBBONS, [facility] [id number] [place] 00:00:00 00:00:00 ROYCE [address] 2020-08-02 2020-08-02 Outpatient G[facility], [facility] [id number] [place] 00:00:00 00:00:00 ROYCE 863 Method i 2020-08-01 2020-08-01 Outpatient [facility], [facility] [id number] [place] 00:00:00 00:00:00 ROYCE [address] 2020-08-01 2020-08-01 Outpatient [facility], [facility] [id number] [place] 00:00:00 00:00:00 ROYCE [address] 2020-07-31 2020-07-31 Outpatient G[facility], [facility] [id number] [place] 00:00:00 00:00:00 ROYCE [address] 2020-07-25 2020-07-25 Outpatient G[facility], [facility] [id number] [place] 00:00:00 00:00:00 ROYCE [address] 2020-06-28 2020-06-28 Outpatient COH COH PDPFEBW YEG COH 00:00:00 00:00:00 [id number] 2020-06-22 2020-06-22 Outpatient STAYVONNE, [facility] [id number] [place] 00:00:00 00:00:00 SIL [address] 2020-04-17 2020-04-17 Appointmen FERNANDO HAYWARD UTP [id number] [place] 15:40:00 15:40:00 t; Lamont FRAZIER M.D. ans SUBHRATHA, M.D. 2020-04-14 2020-04-14 Appointmen YESY [facility] [id number] [place] 08:30:00 08:30:00 t; Sonia FRAZIER Son Rabago M.D. 2019-09-16 2019-09-16 [facility] Uro[facility]ne[facility] [id number] [place] 09:50:00 09:50:00 t; ELIOT ROPER [facility] Center Son Candelario M.D. 2019-09-15 2019-09-15 Appointmen JACQUELIN [facility] [id number] [place] 11:20:00 11:20:00 t; ELIOT ROPER Phys ici BRANDON, M.D. ans M.D. 2019-08-18 2019-08-18 [facility] U[facility]ne[facility] [id number] [place] 15:40:00 15:40:00 t; ELIOT ROPER gy Center Son Candelario M.D. 2019-08-09 2019-08-09 Appointmen CARRINGTONLOUANN [facility] [id number] [place] 10:30:00 10:30:00 t; LUCAS MCKEON M.D. Center Kristi Palacios M.D. Results Test Description Test Time Test Comments Results Result Comments Source Sputum Culture 2022-09-29 05:33:34 Test Item Value Reference Range Interpretation Comme nts SPUTUM CULTURE (test code = 622-1) Specimen cellular elements do not represent lower respiratory tract. Specimen rejected for routine bacterial culture. Suggest reorder and recollection. Gram stain (test code = 664-3) Numerous Epithelial cells present [facility] 12 [id number] 04:17:29 Test Item Value Reference Range Interpretation Comments Ventricular rate (test code = 253) Atrial rate (test code = 255) CO interval (test code = 266) QRSD interval [...] of 19-AUG-2022 23:05,-No significant change was found[facility] [id number] 04:17:29 Test Item Value Reference Range Interpretation Comments Ventricular rate (test code = 253) Atrial rate (test code = 255) CO interval (test code = 266) QRSD interval [...] of 19-AUG-2022 23:05,-No significant change was found- [facility] [id number] 16:08:55 Test Item Value Reference Range Interpretation Comments Resting HR (test code = 8773406355) Resting BP (test code 111&56 = 3806365840) Peak MET Achieved (test code = 9714607819) Protocol Name (test Lexiscan code = 6602694455) Time in Exercise 00:01:00 Phase (test code = 0922090449) Max Systolic BP (test code = 7613329585) Max Diastolic BP (test code = 6284072658) Max Heart Rate (test code = 6921555772) Max Predicted Heart Rate (test code = 3454541831) Target HR Formula (220 - Age)*100% (test code = 2218182635) Test Indication (test chest pain code = 9556745868) Arrhy During Ex (test code = 6496024005) ECG Interp Before EX (test code = 1536372864) ECG Interp During Ex (test code = 4426302439) Ex Summary Comment (test code = 0153032389) Overall HR Response to Exercise (test code = 9646828694) Overall BP Response To Exercise (test code = 6431901112) Reason for Protocol Complete Termination (test code = 5943246486) Stress Test -Waveform interpreted in Impression (test code report associated with = 9482834399) image study. No interpretation is provided as part of this Stress ECG report.-Electronically Signed By Rasheeda Garcia MD ([id number]), medical transcription editor Belgica Pizano ([id number]) on 08/23/2022 11:08:53 AM-Also [facility] stress [id number] 16:08:55 Test Item Value Reference Range Interpretation Comments Resting HR (test code = 2021000327) Resting BP (test code 111&56 = 6271198055) Peak MET Achieved (test code = 2002356837) Protocol Name (test Lexiscan code = 8234188840) Time in Exercise 00:01:00 Phase (test code = 6637766422) Max Systolic BP (test code = 2453930397) Max Diastolic BP (test code = 8265068733) Max Heart Rate (test code = 8177927121) Max Predicted Heart Rate (test code = 3826794971) Target HR Formula (220 - Age)*100% (test code = 0554702006) Test Indication (test chest pain code = 4300713720) Arrhy During Ex (test code = 0203265813) ECG Interp Before EX (test code = 2584017738) ECG Interp During Ex (test code = 3447276927) Ex Summary Comment (test code = 7320238675) Overall HR Response to Exercise (test code = 0461556870) Overall BP Response To Exercise (test code = 7495566056) Reason for Protocol Complete Termination (test code = 7896699579) Stress Test -Waveform interpreted in Impression (test code report associated with = 7141140074) image study. No interpretation is provided as part of this Stress ECG report.-Electronically Signed By Rasheeda Garcia MD ([id number]), medical transcription editor [place] Pizano ([id number]) on 08/23/2022 11:08:53 AM-Also [facility] [facility] CenterLipid [id number] 20:06:00 Test Item Value Reference Range Interpretation [...] calculated (test <100 Desira ble code = 63038-6) range <100 m g/dL for primary prevention; <70 mg/dL for patients with C HD or diabetic patients with > or = 2 CHD risk factors. LDL-C is now calculated using the Guilherme-Domenica calculation, which is a validated novel method providin g better accuracy than the Friedewald equation in the estimation of LDL-C. Guilherme S S et al. KATHLEEN. 2013;310(19): 2774-7514 (http://educati on .OrCam TechnologiesDiagnostPowerVision .com/faq/BNC786 ) Cholesterol/HDL See_Comment [Automated ratio (test code = message] The 9830-1) system which generated this result transmitted reference range : <5.0 (calc). Th e reference range was not used to interpret this result as normal/abnormal . Non-HDL cholesterol See_Comment H For osvaldo ents with (test code = diabetes plus 1 62932-3) major ASCVD ris k factor, treatin g [...] RAC) Organization Information: Site ID: RGA Name: [facility] Address: [address] [place] [address] Director: Peter Valencia Lab Interpretation Abnormal (test code = 31058-3) [facility] CenterT, [id number] 20:06:00 Test Item Value Reference Range Interpretation Comments T4, free (test code 1.1 ng/dL 0.8-1.8 = 3024-7) MIKAYLA (test code = FASTING:UNKNOWN FASTING: MIKAYLA) UNKNOWN RAC (test code = Performing Organization RAC) Information: Site ID: RGA Name: [facility] Address: [address] [place] [address] Director: Peter CornellHCA Houston Healthcare KingwoodThyroid stimulating jxnrnvo6693-18-81 20:06:00 Test Item Value Reference Range Interpretation Comments TSH (test See_Comment [Automated mes luz] code = The system ic h 3016-3) generated this result transmit holley reference range : 0.40 - 4.50 mIU /L. The reference r lyudmila was not used to interpret this result as normal/abnormal . MIKAYLA (test FASTING:UNKNOWN code = MIKAYLA) FASTING: UNKNOWN RAC (test Performing code = RAC) Organization Information: Site ID: MITCHELL Name: [facility] Address: [address] [place] [address] Director: Peter OrdonezLouis Stokes Cleveland VA Medical CenterT32022-10-08 20:06:00 Test Item Value Reference Range Interpretation Comments T3 (test code = 114 ng/dL 76-181 3053-6) MIKAYLA (test code = FASTING:UNKNOWN FASTING: MIKAYLA) UNKNOWN RAC (test code = Performing Organization RAC) Information: Site ID: RGA Name: [facility] Address: [address] [place] [phone] Director: Peter CornellHCA Houston Healthcare KingwoodKtecubzvCC-zteHNL0612-85-08 20:06:00 Test Item Value Reference Range Interpretation Comments NT-proBNP 35 pg/mL Female Risk: O ptimal (test code = < 372 pg/mL [place] > [place] [address]-3) = 372 pg/mL For Heart Failure (HF) diagnosis, referenceranges in patients with d yspnea are based onRylan SHAVER, Et al. J Am Nghia Cardiol.2018;71 [...] F progression (<3 00 pg/mL)is based on Edwige KB, et al. Clin Biochem.2010;43 :1405-1 0. For addition al information, pl ease refer tohttp://educat ion.[employer] stdiagnostics.c om/faq/ HFY301(This austyn k is being provided for informational/e ducatio nalpurposes onl y.) MIKAYLA (test FASTING:UNKNOWN code = MIKAYLA) FASTING: UNKNOWN RAC (test Performing code = RAC) Organization Information: Site ID: EZ Name: [facility], Address: [address] [place] [phone] Director: Sussy Love MD,PhD,GARRICK [facility] CenterLipid [id number] 20:06:00 Test Item Value Reference Range Interpretation Comments Cholesterol, total 222 mg/dL See_Comment H [Automat ed (test code = 2092-3) message ] The system which generated this result transmitted reference range : <=200. The reference range was not used to interpret this result as normal/abnormal . HDL cholesterol 57 mg/dL See_Comment [Automated (test code = 5-9) message ] The system which generated this [...] calculated (test <100 Desira ble code = 70760-3) range <100 m g/dL for primary prevention; <70 mg/dL for patients with C HD or diabetic patients with > or = 2 CHD risk factors. LDL-C is now calculated using the Guilherme-Domenica calculation, which is a validated novel method providin g better accuracy than the Friedewald equation in the estimation of LDL-C. Guilherme S S et al. KATHLEEN. 2013;310(19): 2463-7865 (http://educati on .WalletKit .com/faq/NIF641 ) Cholesterol/HDL See_Comment [Automated ratio (test code = message] The 9830-1) system which generated this result transmitted reference range : <5.0 (calc). Th e reference range was not used to interpret this result as normal/abnormal . Non-HDL cholesterol See_Comment H For osvaldo ents with (test code = diabetes plus 1 26520-9) major ASCVD ris k factor, treatin g [...] RAC) Organization Information: Site ID: RGA Name: [facility] Lab Address: [address] [place] [phone] Director: Peter Valencia Lab Interpretation Abnormal (test code = 59810-6) barbra Hugo2022-10-08 20:06:00 Test Item Value Reference Range Interpretation Comments T4, free (test code 1.1 ng/dL 0.8-1.8 = 3024-7) MIKAYLA (test code = FASTING:UNKNOWN FASTING: MIKAYLA) UNKNOWN RAC (test code = Performing Organization RAC) Information: Site ID: [facility] Name: [facility] Address: [address] [place] [address] Director: [facility] HospitalThyroid stimulating wiziqxn0107-53-19 20:06:00 Test Item Value Reference Range Interpretation [...] code = RAC) Organization Information: Site ID: [facility] Name: [facility] Address: [address] [place] [address] Director: [facility] HospitalT32022-10-08 20:06:00 Test Item Value Reference Range Interpretation Comments T3 (test code = 114 ng/dL 76-181 3053-6) MIKAYLA (test code = FASTING:UNKNOWN FASTING: MIKAYLA) UNKNOWN RAC (test code = Performing Organization RAC) Information: Site ID: [facility] Name: [facility] Address: [address] [place] [address] Director: [facility] HospitalNT-lwcIUZ8039-45-53 20:06:00 Test Item Value Reference Range Interpretation Comments NT-proBNP 35 pg/mL Female Risk: O ptimal (test code = < 372 pg/mL [place] > [place] [address]-5) = 372 pg/mL For Heart Failure (HF) [...] F progression (<3 00 pg/mL)is based on Edwige KB, et al. Clin Biochem.2010;43 :1405-1 0. For addition al information, pl ease refer tohttp://educat ion.[employer] stdiagnostics.c om/faq/ YHC383(This austyn k is being provided for informational/e ducatio nalpurposes onl y.) MIKAYLA (test FASTING:UNKNOWN code = MIKAYLA) FASTING: UNKNOWN RAC (test Performing code = RAC) Organization Information: Site ID: EZ Name: [facility], Address: [address] [place] [phone] Director: Sussy Love MD,PhD,[facility]2022-08-26 06:01:00 Test Item Value Reference Range Interpretation Comments HEMOGLOBIN (test code = HGB) 10.8 g/dL 12-16 L HEMATOCRIT (test code = HCT) 32.3 % 37-47 L Hemoglobin and Hematocrit panel - Utuvy1725-63-22 05:00:00 Test Item Value Reference Range Interpretation Comments hemoglobin (test code = hemoglobin) 10.8 g/dL 12-16 L hematocrit (test code = hematocrit) 32.3 % 37-47 L performing lab: (test code = performing lab:) [facility]- XR CHEST 1 [id number] 11:33:00 [facility] : 1960 Sex: F Patient Name: YIN IBRAHIM Unit No: [id number] EXAMS: CPT CODE: [id number] XR CHEST 1 V 47104 PORTABLE CHEST July 04, 2022 6:48 AM COMMENT: COMPARISON: August 04, 2021 A right-sided Port-A-Cath is present with the tip atrium. There is no evidence for pneumothorax. at 1133 Reported and signed by: Robert Cornelius MD CC: Felix Bliss MD Technologist: CONOR DALTON (RT.R) Transcribed D/ (1137) [facility] NAME: YIN IBRAHIM [address] [place] [address] PHYS: Felix Das MD : 1960 AGE: 62 SEX: F [place] [address] LOC: Y.998 5 PHONE #: [phone] EXAM DATE: 07/04/2022 STATUS: ADM IN FAX #: [phone] RAD #: D/C DT PAGE 1 Signed Report Patient Name: YIN IBRAHIM Unit No: [id number] EXAMS: CPT CODE: [id number] XR CHEST 1 V 12837 (Continued) Orig Print D/T: S: 07/04/2022 (1137) [facility] NAME: YIN IBRAHIM [address] [place] [address] PHYS: Felix Das MD : 1960 AGE: 62 SEX: F [place] [address] LOC: Y.998 5 PHONE #: [phone] EXAM DATE: 07/04/2022 STATUS: ADM IN FAX #: [phone] RAD #: D/C DT PAGE 2 Signed ReportCBC W/AUTO [id number] 12:43:00 Test Item Value Reference Range Interpretation [...] % 0-0 N code = NRBC) PROTHROMBIN [id number] 12:43:00 Test Item Value Reference Range Interpretation [...] Patient is on Heparin Drip? NOTHROMBOPLASTIN TIME [id number] 12:43:00 Test Item Value Reference Range Interpretation Comments PTT ACTIVATED (test 26.0 secs 26.6-34.6 L Please n ote new code = APTT) normal range. IS PATIENT ON ANTICOAGULANTS ? NHas Lab been notified if Patient is on Heparin Drip? NOBASIC METABOLIC [id number] 12:23:00 Test Item Value Reference Range Interpretation [...] RATE (test code = GFR) mL/mi n/1.73 e1Xevvquohv Range:Healthy A dults >90 mL/min/1.73 m2 For Chronic Kid fior Disease: Stage II Mild Decrease i n GFR 60-90 Stage III Moderate Decrea se in GFR 30-59 Stage IV Severe Decrease in GFR 15-29 Stage V Kidney Failure <15 CREATININE (test code 1.03 mg/dL 0.55-1.30 N = CREAT) CALCIUM (test code = 9.1 mg/dL 8.2-10.1 N CA) CBC W Auto Differential panel - Ewmmc9740-44-30 12:00:00 Test Item Value Reference Range Interpretation [...] performing lab: (test code = performing lab:) [facility] (PT)2022-06-04 12:00:00 Test Item Value Reference Range Interpretation Comments prothrombin time patient (test code 10.6 secs 9.7-12.5 = prothrombin time patient) international normal ratio (test 0.96 <2.0 code = international normal ratio) performing lab: (test code = performing lab:) [facility]althromboplastin time qbwkdsj9656-25-15 12:00:00 Test Item Value Reference Range Interpretation Comments PTT activated (test code = PTT 26.0 secs 26.6-34.6 L activated) performing lab: (test code = performing lab:) [facility] qoadh2399-25-43 11:05:00 Test Item Value Reference Range Interpretation [...] performing lab: (test code = performing lab:) [facility] HospitalMethicillin resistant Staphylococcus aureus [Presence] in Specimen by Organism specific zvfmtka7636-22-29 11:05:00 Test Item Value Reference Range Interpretation Comments MRSA surveillance screen (test code see below = MRSA surveillance screen) performing lab: (test code = performing lab:) [facility] Hospitalmssa PCR surveillance [id number] 11:05:00 Test Item Value Reference Range Interpretation Comments mssa PCR surveillance screen (test see below code = mssa PCR surveillance screen) performing lab: (test code = performing lab:) [facility] HospitalISTAT BLOOD [id number] 15:04:00 Test Item Value Reference Range Interpretation Comments POC PH ARTERIAL TEST NOT 7.35-7.45 N See CRITICAL (test code = PHAP) PERFORMED RESULTS F orm for documentation.P rev iously reported result: 7.369 Edited by: Yordan on 02/21/22: 1504: PHAP previously reported as: 7. 369 See CRITICAL RESULTS Form fo r documentation. POC PCO2 ARTERIAL TEST NOT 35-45 N Previously (test code = PERFORMED mmHg reported resu lt: PCO2AP) 42.9 mmHgEdited by: Yordan o n 02/21/22:455337 1504: PCO2A P previously reported as: 42 .9 mmHg POC-TCO2 ARTERIAL TEST NOT 23-27 N Previously (test code = PERFORMED mmol/L reported re sult: TCO2AP) 26 mmol/LEdited by: BarbraAEG o n 02/21/22:241771 1504: TCO2A P previously reported as: 26 mmol/L POC-PO2 ARTERIAL TEST NOT 80-105 LL Previously (test code = PO2AP) PERFORMED mmHg report ed result: 38 mmHgEdited b y: BarbraAEG on 02/21/22:997048 1504: PO2AP previously reported as: 38 *L mmHg POC-HCO3 ARTERIAL TEST NOT 22-26 N Previously (test code = PERFORMED mmol/L reported re sult: HCO3AP) 24.7 mmol/LEdit ed by: BarbraAEG o n 02/21/22:558317 1504: HCO3A P previously reported as: 24 .7 mmol/L POC-BASE EXCESS TEST NOT -2-3 N Previously ARTERIAL (test code PERFORMED mmol/L repo rted result: = BEAP) -1 mmol/LEdited by: BarbraAEG o n 02/21/22:981689 1504: BEAP previously reported as: -1 mmol/L POC-SO2 ARTERIAL TEST NOT 95-98 L Previously (test code = SO2AP) PERFORMED % reported result: 70 %Edited by: BarbraAEG on 02/21/22:455268 1504: SO2AP previously reported as: 70 L [...] (test code = SARITHA) - XR FLUORO [id number] 12:48:00 [facility] : 1960 Sex: F Patient Name: YIN IBRAHIM Unit No: [id number] EXAMS: CPT CODE: [id number] XR FLUORO NDL 68108 Fluoroscopicallyguided right hip aspiration FINDINGS: After informed [...] Baldemar Epperson II, MD Technologist: RT. Anthony(R) TranscribedD/ (8169) AntonySLJ [facility] NAME: YIN IBRAHIM [address] PHYS: Baldemar Britt II, MD : 1960 AGE: 61 SEX: F [place], [place] [address] LOC: Y.RAD PHONE #: [phone] EXAM DATE: 11/20/2021 STATUS: ZANE CLI FAX #: [phone] RAD #: D/C DT PAGE 1 Signed Report Patient Name: YIN IBRAHIM Unit No: [id number] EXAMS: CPT CODE: [id number] XR FLUORO NDL 98545 (Continued) Orig Print D/T: S: 11/21/2021 (1250) [facility] NAME: YIN IBRAHIM [facility] PHYS: KEYONA EppersonBaldemar Abbie CHAPA MD : 1960 AGE: 61 SEX: F [place] [address] LOC: ARASH PHONE #: [phone] EXAM DATE: 11/20/2021 STATUS: DEP CLI FAX #: [phone] RAD #: D/C DT PAGE 2 Signed Report- CT LOWER EXTRM W/O C [id number] 05:19:00 [facility] : 1960 Sex: F Patient Name: YIN IBRAHMI Unit No: [id number] EXAMS: CPT CODE: [id number] CT LOWER EXTRM W/[place] [address] TECHNIQUE: Volumetric CT data of the right femur was obtained without use of intravenous contrast. Images were then viewed in the axial, coronal and sagittal planes. CT radiation dose optimization is achieved for this examination by the use of a CT protocol in accordance with ACR practice standards and adher ence to continuous process tanner rotary drum's recommendations. INDICATION: ASSESS HEALING COMPARISON: CT dated [...] Samuel(R) CTDI: DLP: Trnscrpt: 11/21/2021 (0519) [facility]SL[facility] NAME: YIN IBRAHIM [address] [place] [address] PHYS: Tom Britt II, MD : 1960 AGE: 61 SEX: F [place] [address] LOC: Y.RAD PHONE #: [phone] EXAM DATE: 11/20/2021 STATUS: DEP CLI FAX #: [phone] RAD #: D/C DT PAGE 1Signed Report Patient Name: YIN IBRAHIM Unit No: [id number] EXAMS: CPT CODE: [id number] CT L[place]TRM W/[place] [address] (Continued) Orig Print D/T: S: 11/21/2021 (0522) [facility] NAME: [facility] PHYS: SUNNYKATY Baldemar Jj II, MD : 1960 AGE: 61 SEX: F [place] [address] LOC: Y.RAD PHONE #: [phone] EXAM DATE: 11/20/2021 STATUS: DEP CLI FAX #: [phone] RAD #: D/C DT PAGE 2 Signed [...] (test code = WBCSY) SYNOVIAL FLD RBC 614739.000 0-2 H NOTE: An au tomated (test [...] DR KRUSE, SAVE ASP FOR 2 WKSAFB cndsmbb8754-72-14 06:13:25 Test Item Value Reference Range Interpretation Comments AFB culture No growth Specimen isolate (test after 6 weeks InformationSp ecimen code = 543-9) of Source: Tissue Specimen incubation. Site: Hip: Rig t hip deep tissue #4 [facility] HospitalAFB qymowuq0609-12-79 06:13:25 Test Item Value Reference Range Interpretation Comments AFB culture No growth Specimen isolate (test after 6 weeks InformationSp ecimen code = 543-9) of Source: Tissue Specimen incubation. Site: Hip: Rig t hip deep tissue #4 [facility] HospitalFungus tvhboyz0722-04-54 05:15:15 Test Item Value Reference Range Interpretation Comments Fungus culture No growth Specimen isolate (test after 4 weeks InformationSp ecimen code = 1441) of Source: TissueS pecimen incubation. Site: Hip: Rig t hip deep tissue #4 [facility] HospitalFungus fotkrlw4741-51-28 05:15:15 Test Item Value Reference Range Interpretation Comments Fungus culture No growth Specimen isolate (test after 4 weeks InformationSp ecimen code = 1441) of Source: TissueS pecimen incubation. Site: Hip: Rig t hip deep tissue #4 [facility] HospitalAnaerobic kytwspx8724-79-91 13:21:21 Test Item Value Reference Range Interpretation Comments Anaerobic No anaerobic Specimen culture isolate organisms InformationS pecimen (test code = isolated. Source: TissueS pecimen 552) Site: Hip: Righ t hip deep tissue #4 [facility] HospitalAnaerobic nrnmwof9824-01-26 13:21:21 Test Item Value Reference Range Interpretation Comments Anaerobic No anaerobic Specimen culture isolate organisms InformationS pecimen (test code = isolated. Source: TissueS pecimen 552) Site: Hip: Righ t hip deep tissue #4 [facility] HospitalAFB [id number] 02:09:34 Test Item Value Reference Range Interpretation Comments AFB stain No acid fast Specimen (test code = bacilli (AFB) InformationSpe cimen 676-7) seen. Source: TissueS pecimen Site: Hip: Righ t hip deep tissue #4 [facility] HospitalTissue rchmedr3836-17-87 02:09:34 Test Item Value Reference Range Interpretation Comments Tissue culture No growth Specimen isolate (test after 3 days. InformationSp ecimen code = 10267-8) Source: Tiss ueSpecimen Site: Hip: Righ t hip deep tissue #4 [facility] HospitalFungus [id number] 02:09:34 Test Item Value Reference Range Interpretation Comments Fungus smear No fungi Specimen (test code = observed. InformationSpec imen Source: 1443) TissueSpecimen Site: Hip: Right hip deep tissue #4 [facility] HospitalAFB [id number] 02:09:34 Test Item Value Reference Range Interpretation Comments AFB stain No acid fast Specimen (test code = bacilli (AFB) InformationSpe cimen 676-7) seen. Source: TissueS pecimen Site: Hip: Righ t hip deep tissue #4 [facility] HospitalTissue bwmtftv1305-70-58 02:09:34 Test Item Value Reference Range Interpretation Comments Tissue culture No growth Specimen isolate (test after 3 days. InformationSp ecimen code = 91072-6) Source: Tiss ueSpecimen Site: Hip: Righ t hip deep tissue #4 [facility] HospitalFungus [id number] 02:09:34 Test Item Value Reference Range Interpretation Comments Fungus smear No fungi Specimen (test code = observed. InformationSpec imen Source: 1443) TissueSpecimen Site: Hip: Right hip deep tissue #4 [facility] HospitalGram unfbh7998-32-10 02:09:34Gram stain isolateRare WBC'sNo organisms seen Comment: Specimen InformationSpecimen Source: TissueSpecimen Site: Hip: Right hip deep tissue #4 [facility] Gram pfrwi1485-72-01 02:09:34Gram stain isolateRare WBC'sNo organisms seen Comment: Specimen InformationSpecimen Source: TissueSpecimen Site: Hip: Right hip deep tissue #4 [facility] [id number] 01:45:48 Test Item Value Reference Range Interpretation Comments Case number (test code = [id number]) Surgical pathology See link below for report (test code = PDF Lab Report 2255) Result status (test code This is Final Report = [id number]) for [id number] [facility] lzclwms2916-77-43 01:45:48 Test Item Value Reference Range Interpretation Comments Case number (test code = [id number]) Surgical pathology See link below for report (test code = PDF Lab Report 2255) Result status (test code This is Final Report = [id number]) for [id number] [facility] HospitalPrepare RBC, 2 Jzdtx8218-04-44 20:45:00 Test Item Value Reference Range Interpretation Comments Product name (test code Apheresis -1 LR #2 = 25) Unit number (test code = [id number]) Product code (test code P0175S42 = 3092) Dispense status (test Returned to BB not code = 24) transfused Blood expiration date (test code = 302) Blood type code (test code = 308) Blood type (test code = O POSITIVE 1314) Compatibility (test code Compatible = 6400) [facility] CenterPrep[facility] RBC, 2 Sqgor9229-89-07 20:45:00 Test Item Value Reference Range Interpretation Comments Product name (test code Apheresis -1 LR #2 = 25) Unit number (test code = [id number]) Product code (test code T5088X42 = 3092) Dispense status (test Returned to BB not code = 24) transfused Blood expiration date (test code = 302) Blood type code (test code = 308) Blood type (test code = O POSITIVE 1314) Compatibility (test code Compatible = 6400) [facility] pvifppg9635-10-71 19:11:33 Test Item Value Reference Range Interpretation Comments POC glucose (test code 226 mg/dL 65-99 H Opera tor Name: = 02958-0) Ryan Escobar I D: [id number] able: No Action Neede d Lab Interpretation Abnormal (test code = 91595-1) [facility] qzgipwn8667-09-44 19:11:33 Test Item Value Reference Range Interpretation Comments POC glucose (test code 226 mg/dL 65-99 H Opera tor Name: = 88847-1) Ryan Escobar Ariana D: [id number] able: No Action Neede d Lab Interpretation Abnormal (test code = 38147-1) [facility] HospitalArterial blood gas, oybjxoibb4953-42-87 15:16:19 Test Item Value Reference Range Interpretation Comments pH, arterial (test code 7.35-7.45 L = 2744-1) pCO2, arterial (test See_Comment H [Autom ated message] code = 2019-8) The system ich generated this result transmitted ref erence range: 35 - 45 mmHg. The reference r lyudmila was not used to interpret this result as normal/abnor mal. pO2, arterial (test code See_Comment H [A utomated message] = 2703-7) The system [employer] h generated this result transmitted ref erence range: 80 - 90 mmHg. The reference r lyudmila was not used to interpret this result as normal/abnor mal. Temperature, Celsius Degrees C (test code = 8310-5) O2 saturation, arterial 99 % 95-100 (test code = 2708-6) pH, arterial corrected (test code = 55444-4) pCO2, arterial corrected mmHg (test code = 53084-4) pO2, arterial corrected mmHg (test code = 85462-2) Base excess, arterial See_Comment L [Auto mated message] (test code = 1925-7) The sys tem which generated this result transmitted ref erence range: -2 - 2 m Eq/L. The reference r lyudmila was not used to interpret this result as normal/abnor mal. Lab Interpretation (test Abnormal code = 27302-2) [facility] CenterGlucose level, tkimwue2520-08-19 15:16:19 Test Item Value Reference Range Interpretation Comments Glucose, syringe (test code = 284 mg/dL 65-99 H 2345-7) Lab Interpretation (test code = Abnormal 35835-8) [facility] HospitalHemoglobin, zjunwtw0692-01-31 15:16:19 Test Item Value Reference Range Interpretation Comments Hemoglobin, syringe (test code = 9.9 g/dL 12.0-16.0 L 718-7) Lab Interpretation (test code = Abnormal 95890-5) [facility] HospitalIonized calcium, bjjbrebw6605-69-77 15:16:19 Test Item Value Reference Range Interpretation Comments Ionized calcium, arterial (test 1.19 mmol/L 1.11-1.32 code = 97503-3) [facility] CenterPotassium, jozppqk6383-15-68 15:16:19 Test Item Value Reference Range Interpretation Comments Potassium, syringe See_Comment [Automat ed message] The (test code = 2007) system [facility] generated this result tra nsmitted reference range : 3.5 - 5.0 mEq/L. The refe rence range was not used to interpret this result as normal/abnormal . [facility] Hospitalodium level, kerxeia9988-85-46 15:16:19 Test Item Value Reference Range Interpretation Comments Sodium, syringe (test See_Comment L [Auto mated message] code = 2947-0) The system [facility] generated this result transmitted ref erence range: 135 - 14 8 mEq/L. The refe rence range was not u sed to interpret this result as normal/abnor mal. Lab Interpretation (test Abnormal code = 37478-7) [facility] CenterArterial blood gas, [id number] 15:16:19 Test Item Value Reference Range Interpretation Comments pH, arterial (test code 7.35-7.45 L = 2744-1) pCO2, arterial (test See_Comment H [Autom ated message] code = 2019-8) The system [facility] generated this result transmitted ref erence range: 35 - 45 mmHg. The reference r lyudmila was not used to interpret this result as normal/abnor mal. pO2, arterial (test code See_Comment H [A utomated message] = 2703-7) The system [facility] generated this result transmitted ref erence range: 80 - 90 mmHg. The reference r lyudmila was not used to interpret this result as normal/abnor mal. Temperature, Celsius Degrees C (test code = 8310-5) O2 saturation, arterial 99 % 95-100 (test code = 2708-6) pH, arterial corrected (test code = 16120-0) pCO2, arterial corrected mmHg (test code = 55278-1) pO2, arterial corrected mmHg (test code = 37137-8) Base excess, arterial See_Comment L [Auto mated message] (test code = 1925-7) The [facility] tem which generated this result transmitted ref erence range: -2 - 2 m Eq/L. The reference r lyudmila was not used to interpret this result as normal/abnor mal. Lab Interpretation (test Abnormal code = 00264-7) [facility] CenterGlucose level, nvqigjc3455-50-34 15:16:19 Test Item Value Reference Range Interpretation Comments Glucose, syringe (test code = 284 mg/dL 65-99 H 2345-7) Lab Interpretation (test code = Abnormal 34871-1) [facility] CenterHemoglobin, [id number] 15:16:19 Test Item Value Reference Range Interpretation Comments Hemoglobin, syringe (test code = 9.9 g/dL 12.0-16.0 L 718-7) Lab Interpretation (test code = Abnormal 96077-4) [facility] CenterIonized calcium, [id number] 15:16:19 Test Item Value Reference Range Interpretation Comments Ionized calcium, arterial (test 1.19 mmol/L 1.11-1.32 code = 84481-0) [facility] CenterPotassium, [id number] 15:16:19 Test Item Value Reference Range Interpretation Comments Potassium, syringe See_Comment [Automat ed message] The (test code = 2007) system [employer] generated this result tra nsmitted reference range : 3.5 - 5.0 mEq/L. The refe rence range was not used to interpret this result as normal/abnormal . [facility], wcgohco1703-33-75 15:16:19 Test Item Value Reference Range Interpretation Comments Sodium, syringe (test See_Comment L [Auto mated message] code = 2947-0) The system [employer] generated this result transmitted ref erence range: 135 - 14 8 mEq/L. The refe rence range was not u sed to interpret this result as normal/abnor mal. Lab Interpretation (test Abnormal code = 98823-3) [facility] CenterType and [id number] 00:29:00 Test Item Value Reference Range Interpretation Comments ABO grouping (test code = 883-9) O Rh type (test code = 72236-0) POS Antibody screen (gel) (test code = NEG 890-4) [facility] CenterType and [id number] 00:29:00 Test Item Value Reference Range Interpretation Comments ABO grouping (test code = 883-9) O Rh type (test code = 77678-1) POS Antibody screen (gel) (test code = NEG 890-4) [address]2021-09-30 21:11:17 Test Item Value Reference Range Interpretation Comments Ventricular rate (test code = 253) Atrial rate (test code = 255) CO interval (test code = 266) QRSD interval [...] of 08-AUG-2021 08:40,-No significant change was found- [address]2021-09-30 21:11:17 Test Item Value Reference Range Interpretation Comments Ventricular rate (test code = 253) Atrial rate (test code = 255) CO interval (test code = 266) QRSD interval [...] of 08-AUG-2021 08:40,-No significant change was found- [facility]OVID[facility]19) RNA [Presence] in Respiratory specimen by [facility] with probe [id number] 17:59:27 Test Item Value Reference Range Interpretation Comments SARS-CoV-2 (COVID-19) RNA Not detected Not-Detected [Presence] in Respiratory specimen by [facility] with probe detection (test code = 02156-5) Whether patient is employed in a healthcare setting (test code = 99129-2) Whether the patient has symptoms related to condition of interest (test code = 96863-9) Patient was hospitalized because of this condition (test code = 66029-2) Whether the patient was admitted to intensive care unit (ICU) for condition of interest (test code = 84216-0) Whether patient resides in a congregate care setting (test code = 51739-0) [facility] METABOLIC [id number] 16:13:00 Test Item Value Reference Range Interpretation [...] RATE (test code = GFR) mL/mi n/1.73 p5Sclpegwvx Range:Healthy Adults >90 mL/min/1.73 m2 For Chronic Kidney Disease: Stage II Mild Decrease i n GFR 60-90 Stage III Moderate Decrea se in GFR 30-59 St age IV Severe Decre ase in GFR 15-29 St age V Kidney Failur e <15Unit of norma ure: mL/min/1.73 s0Ooyqoffly Range:Healthy Adults >90 mL/min/1.73 m2 For Chronic [...] H TOTAL (test code = ALKP) PROTHROMBIN [id number] 16:12:00 Test Item Value Reference Interpretation Comments [...] Lab Tests to be ordered if Y. [id number] 16:12:00 Test Item Value Reference Range Interpretation Comments SODIUM (test code = NA) 144 mEq/L 135-145 N [id number] 16:12:00 Test Item Value Reference Range Interpretation Comments POTASSIUM (test code = K) 4.6 mEq/L 3.5-5.0 N [id number] 16:12:00 Test Item Value Reference Range Interpretation Comments CHLORIDE (test code = CL) 106 mEq/L 100-115 N CARBON [id number] 16:12:00 Test Item Value Reference Range Interpretation Comments CARBON DIOXIDE (test code = CO2) 29 mEq/L 22-31 N BLOOD UREA [id number] 16:12:00 Test Item Value Reference Range Interpretation Comments BLOOD UREA NITROGEN (test code = 21 mg/dL 7-18 H BUN) GLOMERULAR FILTRATION [id number] 16:12:00 Test Item Value Reference Range Interpretation Comments GLOMERULAR FILTRATION RATE (test 33 ml/min >60 L code = GFR) [id number] 16:12:00 Test Item Value Reference Range Interpretation Comments CREATININE (test code = CREAT) 1.6 mg/dL 0.5-1.0 H TOTAL [id number] 16:12:00 Test Item Value Reference Range Interpretation Comments TOTAL PROTEIN (test code = PROT) 5.5 gm/dL 6.3-8.2 L [id number] 16:12:00 Test Item Value Reference Range Interpretation Comments ALBUMIN (test code = ALB) 2.9 gm/dL 3.4-4.8 L [id number] 16:12:00 Test Item Value Reference Range Interpretation Comments CALCIUM (test code = CA) 8.1 mg/dL 8.4-10.2 L [id number] 16:12:00 Test Item Value Reference Range Interpretation Comments SGOT/AST (test code = AST) 35 units/L 15-37 N PROTHROMBIN [id number] 16:12:00 Test Item Value Reference Range Interpretation Comments PROTHROMBIN TIME 14.1 secs 10.1-12.5 PATIENT (test code = PTP) INTERNATIONAL NORMAL 1.27 See_Comment The INR is to be used RATIO (test code = only for monitoring INR) oral anticoagulantth erapy. INDICATION INR VALUE 1. Prophylaxis including high risk surgery 2.0 - 2.52. Deep venous thrombosis. Pul monary embolism. Atria l fibrillation or bioprosthetic h eart valves 2.0 - 3. 03. Mechanical hear t valves or recu rrent systemic emboli sm. 3.0 - 3.5DUPLICATE [Automated mess age] The system [employer] generated this result transmitted ref erence range: (). The reference range was not used to int erpret this result as normal/abnormal . IS PATIENT ON ANTICOAGULANTS ? [facility] been notified if Patient is on Heparin Drip? YESAdd'l Lab Tests to be ordered if Y. [id number] 16:12:00 Test Item Value Reference Range Interpretation Comments SGPT/ALT (test code = ALT) 21 units/L 12-78 N ALKALINE PHOSPHATASE [id number] 16:12:00 Test Item Value Reference Range Interpretation Comments ALKALINE PHOSPHATASE TOTAL (test 143 units/L 46-116 H code = ALKP) ALBUMIN/GLOBULIN [id number] 16:12:00 Test Item Value Reference Range Interpretation Comments ALBUMIN/GLOBULIN RATIO TEST NOT PERFORMED (test code = A/G) THROMBOPLASTIN TIME [id number] 10:19:00 Test Item Value Reference Range Interpretation Comments PTT ACTIVATED (test code = APTT) 39.1 secs 24.9-37.0 IS PATIENT ON ANTICOAGULANTS ? [facility] been notified if Patient is on Heparin Drip? YESAdd'l Lab Tests to be ordered if Y. NTHYROID STIMULATING HORMONE 2021-08-06 07:22:00 Test Item Value Reference Range Interpretation Comments THYROID STIMULATING 2.69 0.36-3.74 Test Per formed in HORMONE (test code = MicroIn ternational Units/mL TSH) THYROID STIMULATING [id number] 07:21:00 Test Item Value Reference Range Interpretation Comments THYROID STIMULATING 2.69 0.36-3.74 N Test Per formed in HORMONE (test code = MicroIn ternational Units/mL TSH) B-TYPE NATRIURETIC [id number] 07:18:00 Test Item Value Reference Range Interpretation Comments B-TYPE NATRIURETIC PEPTIDE (test 344.28 pg/mL 0-100 H code = BNP) B-TYPE NATRIURETIC [id number] 07:18:00 Test Item Value Reference Range Interpretation [...] 837 Units/L 26-192 H CK) BASIC METABOLIC [id number] 06:56:00 Test Item Value Reference Range Interpretation [...] RATE (test code = GFR) mL/mi n/1.73 n7Faoyrpkzj Range:Healthy Adults >90 mL/min/1.73 m2 For Chronic Kidney Disease: Stage II Mild Decrease i n GFR 60-90 Stage III Moderate Decrea se in GFR 30-59 St age IV Severe Decre ase in GFR 15-29 St age V Kidney Failur e <15 CREATININE (test code 1.13 mg/dL 0.55-1.30 N = CREAT) CALCIUM (test code = 8.0 mg/dL 8.2-10.1 L CA) CBC W/AUTO [id number] 06:31:00 Test Item Value Reference Range Interpretation [...] % 0-0 N code = NRBC) HGB [id number] 23:44:00 Test Item Value Reference Range Interpretation Comments HEMOGLOBIN (test code = 6.5 g/dL 10.1-13.8 LL RESU LTS CALLED TO HGB) SRAVANI NARAYANAN AD BACK & CONFIRMED? ELIZABETH BOATENG F.LAB.IR1 08/04 2342Results jaylen ified by repeat maryjane sis HEMATOCRIT (test code = 21.2 % 32.5-41.8 L HCT) HGB [id number] 23:43:00 Test Item Value Reference Range Interpretation Comments HEMOGLOBIN (test code = 6.5 g/dL 10.1-13.8 LL RESU LTS CALLED TO HGB) SRAVANIZULEIMA NARAYANAN AD BACK & CONFIRMED? YE SBY F.LAB.IR1 08/04 2342Results jaylen ified by repeat maryjane sis HEMATOCRIT (test code = 21.2 % 32.5-41.8 L HCT) [id number] 23:24:00 Test Item Value Reference Range Interpretation Comments GLUCOSE (test code = GLU) BILIRUBIN [id number] 23:24:00 Test Item Value Reference Range Interpretation Comments BILIRUBIN TOTAL (test code = BILT) mg/dL 0.2-1.0 COVID 19 Asymptomatic IH [id number] 23:06:00 Test Item Value Reference Range Interpretation Comments COVID 19 Asymptomatic IH AG (test NEGATIVE NEGATIVE code = COVNONPUIAG) THROMBOPLASTIN TIME [id number] 22:32:00 Test Item Value Reference Range Interpretation Comments THROMBOPLASTIN TIME PARTIAL (test code = PTT) IS PATIENT ON ANTICOAGULANTS ? [facility] Lab been notified if Patient is on Heparin Drip? YESAdd'l Lab Tests to be ordered if Y. NPROTHROMBIN [id number] 22:31:00 Test Item Value Reference Range Interpretation Comments PROTHROMBIN TIME 14.1 secs 10.1-12.3 H PATIENT (test code = PTP) INTERNATIONAL NORMAL 1.27 The INR is to be used RATIO (test code = only for monitoring INR) oral anticoagulantth erapy. INDICATION INR VALUE 1. Prophylaxis including high risk surgery 2.0 - 2.52. Deep venous thrombosis. Pul monary embolism. Atria l fibrillation or bioprosthetic h eart valves 2.0 - 3. 03. Mechanical hear t valves or recur rent systemic emboli sm. 3.0 - 3.5 THROMBOPLASTIN TIME [id number] 22:31:00 Test Item Value Reference Range Interpretation Comments THROMBOPLASTIN TIME PARTIAL (test 39.1 secs 22-38 H code = PTT) CBC W/AUTO [id number] 22:27:00 Test Item Value Reference Range Interpretation Comments WHITE BLOOD CELL 4.6 K/mm3 6.5-12.3 L DONE AT: [facility] (test code = WBC) [facility] [address] [place], [place] [address] RED BLOOD CELL (test 2.32 M/mm3 3.51-4.69 L code = RBC) HEMOGLOBIN (test code 6.5 g/dL 10.1-13.8 LL RESULT S VERIFIED BY = HGB) REPEAT ANALYSIS RESULTS CALLED TO YOUSIF MCGHEE/[facility] EREAD BACK & CONF IRMED? YBY F.LAB.RV 5412 HEMATOCRIT (test code 21.3 % 32.5-41.8 L [...] ed message] code = NT#) The system [employer] generated this result transmitted ref erence range: (). The reference range was not used to int erpret this result as normal/abnormal . LYMPHOCYTE # (test 0.9 K/mm3 See_Comment [Automat ed message] code = LY#) The system [employer] generated this result transmitted ref erence range: (). The reference range was not used to int erpret this result as normal/abnormal . MONOCYTE # (test code 0.3 K/mm3 See_Comment [Auto mated message] = MO#) The system [employer] generated this result transmitted ref erence range: (). The reference range was not used to int erpret this result as normal/abnormal . EOSINOPHIL # (test 0.04 K/mm3 See_Comment [Automat ed message] code = EO#) The system [employer] generated this result transmitted ref erence range: (). The reference range was not used to int erpret this result as normal/abnormal . BASOPHIL # (test code 0 K/mm3 See_Comment [Auto mated message] = BA#) The system [employer] generated this result transmitted ref erence range: (). The reference range was not used to int erpret this result as normal/abnormal . PLATELET MORPHOLOGY NORMAL NORMAL REQUIRED (test code = PLTMR) CBC W/AUTO [id number] 22:26:00 Test Item Value Reference Range Interpretation Comments WHITE BLOOD CELL 4.6 K/mm3 6.5-12.3 L (test code = WBC) RED BLOOD CELL (test 2.32 M/mm3 3.51-4.69 L code = RBC) HEMOGLOBIN (test 6.5 g/dL 10.1-13.8 LL RESULTS JAYLEN IFIED BY code = HGB) REPEAT ANALYSIS RESULTS CALLED TO YOUSIF MCGHEE/[facility] NURSEREAD BACK & CONFIRMED? MAXINE DiazLAB.RV 08/04/21 3760 HEMATOCRIT (test 21.3 % 32.5-41.8 L code [...] code = PLTMR) - XR CHEST 1 [id number] 17:44:00 [facility] : 1960 Sex: F Patient Name: YIN IBRAHIM Unit No: [id number] EXAMS: CPT CODE: [id number] XR CHEST 1 V 54740 IMAGES PROVIDED: One frontal view of the chest is provided. COMPARISON: 07/10/2021 FINDINGS: Left PICC line is in placewith tip overlying the lower SVC. Right IJ catheter remains in place. Bilateral airspace opacities are increased, suggestive of pulmonary edema. The cardiac silhouette is enlarged. Pulmonary vasculature is mostly obscured IMPRESSION: 1. Probable pulmonary edema. Pneumonia is not excluded. 2. Left PICCline as above. at 1744 Reported and signed by: Jeremy Kruse M.D. CC: Yahir Hendrix MD Technologist: RIVER HARTMANN, RT(R) Transcribed D/ (1744) [facility] NAME: YIN IBRAHIM [address] [place] [address] PHYS: [place] - Yahir Hendrix : 1960 AGE: 61 SEX: F [place] [address] LOC: Y.516 A PHONE #: [phone] EXAM DATE: 08/04/2021 STATUS: ADM IN FAX #: [phone] RAD #: D/C DT PAGE 1 Signed Report Patient Name: YIN IBRAHIM Unit No: [id number] EXAMS: CPT CODE: [id number] XR CHEST 1 V 32430 (Continued) Orig Print D/T: S: 08/04/2021 (1747) [facility] NAME: [facility] PHYS: ALBERTO.Arianna - Yahir Hendrix : 1960 AGE: 61 SEX: F [place] [address] LOC: Y.516 A PHONE #: [phone] EXAM DATE: 08/04/2021 STATUS: ADM IN FAX #: [phone] RAD #: D/C DT PAGE 2 Signed ReportCBC W/MANUAL [id number] 09:03:00 Test Item Value Reference Range Interpretation [...] CELL (test code = NRBC) CBC W/MANUAL [id number] 05:56:00 Test Item Value Reference Range Interpretation [...] holley message] code = TCC) The system [facility] h generated this result transmit holley reference range : 100. The refere nce range was not u sed to interpret th is result as normal/abnormal . SEGMENTED NEUTROPHILS % 50-65 (test code = SEG) LYMPHOCYTE (test code = % 20-40 LYMPH) NUCLEATED RED BLOOD 0 % 0-0 N CELL (test code = NRBC) CBC W/AUTO [id number] 05:56:00 Test Item Value Reference Range Interpretation [...] N (test code = NRBC) CBC W/MANUAL [id number] 05:56:00 Test Item Value Reference Range Interpretation Comments STAIN ACCEPTABILITY (test code = STN ACCEPTABLE) CELLS COUNTED (test code See_Comment [A utomated message] = TCC) The system whic h generated this result transmitted ref erence range: 100. The reference range was not used to interpr et this result as normal/abnormal . SEGMENTED NEUTROPHILS % 50-65 (test code = SEG) LYMPHOCYTE (test code = % 20-40 LYMPH) HGB [id number] 14:30:00 Test Item Value Reference Range Interpretation Comments HEMOGLOBIN (test code = 7.7 g/dL 12-16 L HGB) HEMATOCRIT (test code = 16.2 % 37-47 LL VERI FIED BY REPEAT HCT) ANALYSIS.CRITIC AL VALUE CALLED TO MARIAM KIRKLAND/LILIBETH RN PCUREAD BACK & CONFIRMED? YESB Y [id number] 1429 CBC W/MANUAL [id number] 10:21:00 Test Item Value Reference Range Interpretation [...] CELL (test code = NRBC) BASIC METABOLIC [id number] 06:45:00 Test Item Value Reference Range Interpretation [...] RATE (test code = GFR) mL/mi n/1.73 h4Sckskyxlh Range:Healthy Adults >90 mL/min/1.73 m2 For Chronic Kidney Disease: Stage II Mild Decrease i n GFR 60-90 Stage III Moderate Decrea se in GFR 30-59 St age IV Severe Decre ase in GFR 15-29 S tage V Kidney Failur e <15 CREATININE (test code 0.89 mg/dL 0.55-1.30 N = CREAT) CALCIUM (test code = 7.6 mg/dL 8.2-10.1 L CA) CBC W/MANUAL [id number] 06:21:00 Test Item Value Reference Range Interpretation [...] holley message] code = TCC) The system [employer] generated this result transmit holley reference range : 100. The refere nce range was not u sed to interpret th is result as normal/abnormal . SEGMENTED NEUTROPHILS % 50-65 (test code = SEG) LYMPHOCYTE (test code = % 20-40 LYMPH) NUCLEATED RED BLOOD 0 % 0-0 N CELL (test code = NRBC) CBC W/AUTO [id number] 06:21:00 Test Item Value Reference Range Interpretation [...] N (test code = NRBC) CBC W/MANUAL [id number] 06:21:00 Test Item Value Reference Range Interpretation Comments STAIN ACCEPTABILITY (test code = STN ACCEPTABLE) CELLS COUNTED (test code See_Comment [A utomated message] = TCC) The system [employer] generated this result transmitted ref erence range: 100. The reference range was not used to interpr et this result as normal/abnormal . SEGMENTED NEUTROPHILS % 50-65 (test code = SEG) LYMPHOCYTE (test code = % 20-40 LYMPH) VANCOMYCIN [id number] 07:33:00 Test Item Value Reference Range Interpretation Comments VANCOMYCIN TROUGH 13.20 mcg/mL 10-20 N THERAPEUTI C RANGE: (test code = VANCT) PEAK: 30 -40 mcg/mL TROUGH: 10-20 m cg/mL TOXIC RANGE: 80 -100 mcg/mL DATE OF LAST DOSE: 07/10/21TIME OF LAST DOSE: 0500HGB [id number] 06:08:00 Test Item Value Reference Range Interpretation Comments HEMOGLOBIN (test code = 6.0 g/dL 12-16 LL VERI FIED BY REPEAT HGB) ANALYSIS.CRITIC AL VALUE CALLED TO ROXI S/PAULY ALEGRIA AREAD BACK & CONFIRME D? HEALBEDa Y.LAB.[facility] 07/11 06 HEMATOCRIT (test code = 18.4 % 37-47 LL VERI FIED BY REPEAT HCT) ANALYSIS.CRITIC AL VALUE CALLED TO ROXI S/PAULY KAREFRAÍN AREAD BACK & CONFIRME D? HEALBEY Y.LAB.[facility] 07/11 SPECIMEN COMMENT: POD #2- XR CHEST 1 [id number] 13:45:00 [facility] : 1960 Sex: F Patient Name: YIN IBRAHIM Unit No: [id number] EXAMS: CPT CODE: [id number] XR CHEST 1 V 05252 IMAGES PROVIDED: One frontal view of the chest is provided. COMPARISON: 07/10/2021 FINDINGS: The left PICC line has been adjusted with tip now overlying the SVC. No other significant interval change. IMPRESSION:Successful revision of left PICC line as above. at 1345 Reported and signed by: Jeremy Kruse M.D. CC: Yahir Hendrix MD; Shannan Gibbons MD Technologist: KADY DIETZ(R) Transcribed D/ (8786) [facility]: YIN IBRAHIM [address] [facility] [address] PHYS: Shannan Valera MD : 1960 AGE: 61 SEX: F [place] [address] LOC: Y.521 A PHONE #: [phone] EXAM DATE: 07/10/2021 STATUS: ADM IN FAX #: [phone] RAD #: D/C DT PAGE 1 Signed Report Patient Name: YIN IBRAHIM Unit No: [id number] EXAMS: CPT CODE: [id number] XR CHEST 1 V 38004 (Continued) Orig Print D/T: S: 07/10/2021 (1370) [facility] NAME: YIN IBRAHIM [address] [facility] [address] PHYS: Shannan Valera MD : 1960 AGE: 61 SEX: F [place] [address] LOC: Y.521 A PHONE #: [phone] EXAM DATE: 07/10/2021 STATUS: ADM IN FAX #: [phone] RAD #: D/C DT PAGE 2 Signed Report - XR CHEST 1 [id number] 13:37:00 [facility] : 1960 Sex: F Patient Name: YIN IBRAHIM Unit No: [id number] EXAMS: CPT CODE: [id number] XR CHEST 1 V 29036 IMAGES PROVIDED: One frontal view of the [...] Hendrix MD; Shannan Gibbons MD Technologist: KADY DIETZ RT(R) Transcribed D/ (2997) [facility].SDR.[facility] NAME: YIN IBRAHIM [address] PHYS: Shannan Valera MD : 1960 AGE: 61 SEX: F [place], [place] [address] LOC: Y.521 A PHONE #: [phone] EXAM DATE: 07/10/2021 STATUS: ADM IN FAX #: [phone] RAD #: D/C DT PAGE 1Signed Report Patient Name: YIN IBRAHIM Unit No: [id number] EXAMS: CPT CODE: [id number] XR CHEST 1 V 63839 (Continued) Orig Print D/T: S: 07/10/2021 (1340) [facility] NAME: YIN IBRAHIM [address] [facility] PHYS: Shannan Valera MD : 1960 AGE: 61 SEX: F [place], [place] [address] LOC: Y.521 A PHONE #: [phone] EXAM DATE: 07/10/2021 STATUS: ADM IN FAX #: [phone] RAD #: D/C DT PAGE 2 Signed Report- XR PELVIS 1/2 [id number] 09:19:00 [facility] : 1960 Sex: F Patient Name: YIN IBRAHIM Unit No: [id number] EXAMS: CPT CODE: [id number] XR PELVIS 1/2 VIEWS 08311 INTRAOPERATIVE LEG LENGTH FILM COMMENT: COMPARISON: No prior exams available. In progress right hip replacement is noted. AP portable right hip COMMENT: The patient is status post joint replacement which is articulating normally. at 0919 Reported and signed by: Robert Cornelius MD CC: Yahir Hendrix MD Technologist: RIVER HARTMANN, RT(R) Transcribed D/ (0919) [facility] NAME: YIN IBRAHIM [address] [facility] PHYS: [place] - Yahir Hendrix : 1960 AGE: 61 SEX: [place] [address] LOC: Y.521 A PHONE #: [phone] EXAM DATE: 07/09/2021 STATUS: ADM IN FAX #: [phone] RAD #: D/C DT PAGE 1 Signed Report Patient Name: YIN IBRAHIM Unit No: [id number] EXAMS: CPT CODE: [id number] XR PELVIS 1/2 VIEWS 01669 (Continued) Orig Print D/T: S: 07/10/2021 (09) [facility] NAME: YIN IBRAHIM [address] [facility] PHYS: MATVA.01 - Yahir Hendrix M : 1960 AGE: 61 SEX: F [place] [address] LOC: Y.521 A PHONE #: [phone] EXAM DATE: 07/09/2021 STATUS: ADM IN FAX #: [phone] RAD #: D/C DT PAGE 2 Signed Report- XR PELVIS 1/2 [id number] 09:19:00 [facility] : 1960 Sex: F Patient Name: YIN IBRAHIM Unit No: [id number] EXAMS: CPT CODE: [id number] XR PELVIS 1/2 VIEWS 76191 INTRAOPERATIVE LEG LENGTH FILM COMMENT: COMPARISON: No prior exams available. In progress right hip replacement is noted. AP portable right hip COMMENT: The patient is status post joint replacement whichis articulating normally. at 0919 Reported and signed by: Robert Cornelius MD CC: Yahir Hendrix MD Technologist: CONOR DALTON (RT.R) Transcribed D/ (918) [facility] NAME: YIN IBRAHIM [address] [facility] PHYS: [place] Randall Hendrix,Yahir Crystal : 1960 AGE: 61 SEX: F [place] [address] LOC: Y.521 A PHONE #: [phone] EXAM DATE: 07/09/2021 STATUS: ADM IN FAX #: [phone] RAD #: D/C DT PAGE 1 Signed Report Patient Name: YIN IBRAHIM Unit No: [id number] EXAMS: CPT CODE: [id number] XR PELVIS 1/2 VIEWS 77835 (Continued) Orig Print D/T: S: 07/10/2021 (921) [facility] NAME: YIN IBRAHIM [address] [place] [address] PHYS: ALBERTO.Arianna - HendrixGrzegorzYahir Crystal : 1960 AGE: 61 SEX: F [place] [address] LOC: Y.521 A PHONE#: [phone] EXAM DATE: 07/09/2021 STATUS: ADM IN FAX #: [phone] RAD #: D/C DT PAGE 2 SignedReportBASIC METABOLIC [id number] 06:46:00 Test Item Value Reference Range Interpretation [...] RATE (test code = GFR) mL/mi n/1.73 h6Kaqepwyof Range:Healthy Adults >90 mL/min/1.73 m2 For Chronic Kidney Disease: Stage II Mild Decrease i n GFR 60-90 Stage III Moderate Decrea se in GFR 30-59 St age IV Severe Decre ase in GFR 15-29 St age V Kidney Failur e <15 CREATININE (test code 1.18 mg/dL 0.55-1.30 N = CREAT) CALCIUM (test code = 7.7 mg/dL 8.2-10.1 L CA) SPECIMEN COMMENT: POD #1HGB [id number] 06:00:00 Test Item Value Reference Range Interpretation Comments HEMOGLOBIN (test code = HGB) 8.8 g/dL 12-16 L HEMATOCRIT (test code = HCT) 28.9 % 37-47 L SPECIMEN COMMENT: POD #1Novel Coronavirus 2019 [id number] 22:57:00 Test Item Value Reference Range Interpretation [...] assa y in vitro. Novel Coronavirus 2018 [id number] 22:56:00 Test Item Value Reference Range Interpretation [...] for the identification of SARS-CoV-2 RNA usingthe Unica M2000 Sy stem under the FDA Emergen cy UseAuthorizatio n. The testing is perf ormed by personneltraine d in the procedures for the Unica M2000 molecular diagnostic SARS-CoV-2 assa y in vitro. PROTHROMBIN [id number] 11:14:00 Test Item Value Reference Range Interpretation [...] BLOOD, PT every other day NTHROMBOPLASTIN TIME [id number] 11:14:00 Test Item Value Reference Range Interpretation Comments PTT ACTIVATED (test code = APTT) 33.3 secs 24.9-37.0 N IS PATIENT ON ANTICOAGULANTS ? [facility] been notified if Patient is on [...] 0-0 N code = NRBC) COMPREHENSIVE METABOLIC [id number] 11:13:00 Test Item Value Reference Range Interpretation [...] RATE (test code = GFR) mL/mi n/1.73 g0Ifwxdmxvw Range:Healthy Adults >90 mL/min/1.73 m2 For Chronic [...] (test code = ALKP) SYNOVIAL FLD CELL [id number] 18:42:00 Test Item Value Reference Range Interpretation Comments SYNOVIAL FLD XANTHOCHROMIC LT. YELLOW A COLOR (test code = COLSY) SYNOVIAL FLD [place] CLEAR SLIGHT APPEARANCE (test code = APPSY) SYNOVIAL FLD 1.5 mL VOLUME (test code = VOLSY) SYNOVIAL FLD WBC 1048.000 /MM3 0-200 H (test code = WBCSY) SYNOVIAL FLD RBC 09831.000 /mm3 0-2 H NOTE: An automated (test [...] = MONOSY) SPECIMEN COMMENT: ASP.RT.HIP- XR FLUORO [id number] 13:27:00 [facility] 1960 Sex: F Patient Name: YIN IBRAHIM Unit No: [id number] EXAMS: CPT CODE: [id number] XR FLUORO NDL 11985 FLUOROSCOPICALLY GUIDED ASPIRATION OF THE RIGHT HIP [...] CC: Yahir Hendrix MD Technologist: Darshana Briceño RTConrad(R) Transcribed D/ (5986) t.BERTHAR.L [facility] NAME: YIN IBRAHIM [address] [facility] [address] PHYS: MATVA.01 - Yahir Hendrix : 1960 AGE:61 SEX: F [place], [place] [address] LOC: Y.RAD PHONE #: [phone] EXAM DATE: 06/22/2021 STATUS: REG CLI FAX #: [phone] RAD #: D/C DT PAGE 1 Signed Report Patient Name: YIN IBRAHIM Unit No: [id number] EXAMS: CPT CODE: [id number] XR FLUORO NDL 41627 (Continued) Orig Print D/T: S: 06/22/2021 (1330) [facility] NAME: YIN IBRAHIM [address] [facility] PHYS: MATVABhavna - SimeonYahir Crystal : 1960 AGE: 61 SEX: F [place], [place] [address] LOC: Y.RAD PHONE #: [phone] EXAM DATE: 06/22/2021 STATUS: REG CLI FAX #: [phone] RAD #: D/C DT PAGE [id number] 13:11:00 Test Item Value Reference Range Interpretation [...] COMMENT: ASP.RT.HIP- CT LOWER EXTRM W/O C [id number] 11:26:00 [facility] 1960 Sex: F Patient Name: YIN IBRAHIM Unit No: [id number] EXAMS: CPT CODE: [id number] CT LOWER EXTRM W/[place] [address] [place] SCAN RIGHT HIP WITH RECONSTRUCTION DIAGNOSIS: [...] with ACR practice standards and adherence to continuous process tanner rotary drum's recommen dations. INDICATION: RIGHT HIP R/O FRACTURE COMPARISON: None. FINDINGS: Findings are as described above. at 1126 Reported and signed by: Yovany Matias MD CC: Yahir Hendrix MD Technologist: RT Germaine(R) CTDI: DLP: Trnscrpt: 06/22/2021 (1126) t.SDR.GVG [facility] NAME: YIN IBRAHIM [address] [facility] PHYS: MATZAK. - Yahir Hendrix : 1960 AGE: 61 SEX: F [place] [address] LOC: Y.RAD PHONE #: [phone] EXAM DATE: 06/22/2021 STATUS: REG CLI FAX #: [phone] RAD #: D/C DT PAGE 1 Signed Report Patient Name: YIN IBRAHIM Unit No: [id number] EXAMS: CPT CODE: [id number] CT LOWER EXTRM W/[place] [address] (Continued) Orig Print D/T: S: 06/22/2021 (1129) [facility] NAME: YIN IBRAHIM [address] [facility] PHYS: ALBERTO.Arianna Yahir Sanz : 1960 AGE: 61 SEX: F [place] [address] LOC: Y.RAD PHONE #: [phone] EXAM DATE: 06/22/2021 STATUS: REG CLI FAX #: [phone] RAD #: D/C DT PAGE 2 Signed Report- XR PELVIS 1/2 [id number] 08:44:00 [facility] : 1960 Sex: F Patient Name: YIN IBRAHIM Unit No: [id number] EXAMS: CPT CODE: [id number] XR PELVIS 1/2 VIEWS 15198 INTRAOPERATIVE LEG LENGTH FILM COMMENT: COMPARISON: No prior exams available. In progress right hip replacement is noted. AP portable right hip COMMENT: The patient is status post joint replacement whichis articulating normally. at 0844 Reported and signed by: Robert Cornelius MD CC: Yahir Hendrix MD Technologist: FERNANDO HEDRICK(R) Transcribed D/ (0844) AntonyJCL [facility] NAME: YIN IBRA[address]IM[address] [facility] PHYS: MATVA.01 - Yahir Hendrix : 1960 AGE: 60 SEX: F [place], [place] [address] LOC: Y.502 A PHONE #: [phone] EXAM DATE: 05/21/2021 STATUS: ADM IN FAX #: [phone] RAD #: D/C DT PAGE 1 Signed Report Patient Name: YIN IBRAHIM Unit No: [id number] EXAMS: CPT CODE: [id number] XR PELVIS 1/2 VIEWS 03524 (Continued) Orig Print D/T: S: 05/22/2021 (0847) [facility] NAME: YIN IBRAHIM [address] [facility] PHYS: MATVA. - Grzegorz Hendrix M : 1960 AGE: 60 SEX: F [place], [place] [address] LOC: Y.502 A PHONE #: [phone] EXAM DATE: 05/21/2021 STATUS: ADM IN FAX #: [phone] RAD #: D/C DT PAGE 2 Signed Report- XR PELVIS 1/2 [id number] 08:44:00[facility] : 1960 Sex: F Patient Name: YIN IBRAHIM Unit No: [id number] EXAMS: CPT CODE: [id number] XR PELVIS 1/2 VIEWS 76265 INTRAOPERATIVE LEG LENGTH FILM COMMENT: COMPARISON: No prior exams available. In progress right hip replacement is noted. AP portable right hip COMMENT: The patient is status post joint replacement which is articulating normally. at 0844 Reported and signed by: Robert Cornelius MD CC: Yahir Hendrix MD Technologist: CONOR DALTON (RT.R) Transcribed D/ (0844) [facility] NAME: YIN IBRA[address] [facility] PHYS: MATZAK. - Yahir Hendrix M : 1960 AGE: 60 SEX: F [place], [place] [address] LOC: Y.502 A PHONE #: [phone] EXAM DATE: 05/21/2021 STATUS: ADM IN FAX#: [phone] RAD #: D/C DT PAGE 1 Signed Report Patient Name: YIN IBRAHIM Unit No: [id number] EXAMS: CPT CODE: [id number] XR PELVIS 1/2 VIEWS 86206 (Continued) Orig Print D/T: S: 05/22/2021 (0847) [facility] NAME: YIN IBRAHIM [address] [facility] PHYS: MATZAK.01 - Yahir Hendrix : 1960 AGE: 60 SEX: F [place], [place] [address] LOC: Y.502 A PHONE #: [phone] EXAM DATE: 05/21/2021 STATUS: ADM IN FAX #: [phone] RAD #: D/C DT PAGE 2 Signed ReportHGB [id number] 06:02:00 Test Item Value Reference Range Interpretation Comments HEMOGLOBIN (test code = HGB) 9.9 g/dL 12-16 L HEMATOCRIT (test code = HCT) 29.4 % 37-47 L SPECIMEN COMMENT: POD #1PROTHROMBIN [id number] 13:39:00 Test Item Value Reference Range Interpretation [...] BLOOD, PT every other day NTHROMBOPLASTIN TIME [id number] 13:39:00 Test Item Value Reference Range Interpretation Comments PTT ACTIVATED (test code = APTT) 29.2 secs 24.9-37.0 N IS PATIENT ON ANTICOAGULANTS ? NHas Lab been notified if Patient is on Heparin Drip? NOIf Yes, orderCBC, OCCULT BLOOD, PT every other day NCOMPREHENSIVE METABOLIC [id number] 13:19:00 Test Item Value Reference Range Interpretation [...] RATE (test code = GFR) mL/mi n/1.73 f0Amltvjvgu Range:Healthy Adults >90 mL/min/1.73 m2 For Chronic [...] TOTAL (test code = ALKP) CBC W/AUTO [id number] 12:40:00 Test Item Value Reference Range Interpretation [...] NRBC) - MRI LW JNT W/O CONT [id number] 12:32:00 [facility]B: 1960 Sex: F Patient Name: YIN IBRAHIM Unit No: [id number] EXAMS: CPT CODE: [id number] MRI LW JNT W/[place] [address] MRI OF THE PELVIS AND HIPS WITH SPECIAL ATTENTION TO THE RIGHT HIP DIAGNOSIS: 1. Avascular necrosis is seen involving the entire right femoral head without collapse. Mild bone marrow edema is present 2. The patient is status post left hip arthroplasty and there is a joint effusion which communicates with the trochanteric bursa. Edema is present in the left adductor muscles consistent with recent prior surgery. COMMENT: COMPARISON: No prior exams available. Scans were performed in the sagittal, axial and coronal planes utilizing T1, spin density with fat saturation, inversion recovery and T2-weig hted pulse sequences. Bony abnormalities are present as noted. No tendon tears are seen. No muscle tears are identified. at 1232 Reported and signed by: Robert Cornelius MD CC: Yahir Hendrix MD Technologist: Crissy Hopkins, RT(R) Transcribed D/ (1232) tANGELJCL [facility] NAME: YIN IBRAHIM [address] PHYS: MATVA.01 - Yahir Hendrix : 1960 AGE: 60 SEX: F [place], [place] [address] LOC: Y.MRI PHONE #: [phone] EXAM DATE: 04/19/2021 STATUS: REG CLI FAX #: [phone] RAD #: D/C DT PAGE 1 Signed Report Patient Name: YIN IBRAHIM Unit No: [id number] EXAMS: CPT CODE: [id number] MRI LW JNT W/[place] [address] (Continued) Orig Print D/T: S: 04/19/2021 (1235) [facility] NAME: YIN IBRAHIM [address] [facility] PHYS: MATVA. - Yahir Hendrix : 1960 AGE: 60 SEX: F [place], [place] [address] LOC: Y.MRI PHONE #: [phone] EXAM DATE: 04/19/2021 STATUS: REG CLI FAX #: [phone] RAD #: D/C DT PAGE 2 Signed Report- XR PELVIS 1/2 [id number] 14:31:00 [facility] : 1960 Sex: F Patient Name: YIN IBRAHIM Unit No: [id number] EXAMS: CPT CODE: [id number] XR PELVIS 1/2 VIEWS 64057 AP VIEW OF THE PELVIS. COMMENT: In progress total left hip arthroplasty. AP view of the pelvis COMMENT: COMPARISON: No prior exams available. Completed total left hip arthroplasty. Prosthesis appears to be in good position. at 1431 Reported and signed by: Jeremy Kruse M.D. CC: Yahir Hendrix MD Technologist: Robert Aiken(R) Transcribed D/ (1431) [facility]: Y[facility] IBRAHIM [address] [facility] PHYS: MATVA. - Yahir Hendrix : 1960 AGE: 60 SEX: F [place], [place] [address] LOC: Y.307 A PHONE #: [phone] EXAM DATE: 03/15/2021 STATUS: DIS IN FAX #: [phone] RAD #: D/C DT 03/16/2021 PAGE 1 Signed Report Patient Name: YIN IBRAHIM UnitNo: [id number] EXAMS: CPT CODE: [id number] XR PELVIS 1/2 VIEWS 88525 (Continued) Orig Print D/T: S: 0 03/16/2021 (1434) [facility] NAME: YIN IBRAHIM [address] [facility] PHYS: MATVA.01 - Yahir Hendrix : 1960 AGE: 60 SEX: F [place], [place] [address] LOC: Y.307 A PHONE #: [phone] EXAM DATE: 03/15/2021 STATUS: DIS IN FAX #: [phone] RAD #: D/C DT 03/16/2021 PAGE 2 Signed Report- XR PELVIS 1/2 [id number] 14:31:00 [facility] : 1960 Sex: F Patient Name: YIN IBRAHIM Unit No: [id number] EXAMS: CPT CODE: [id number] XR PELVIS 1/2 VIEWS 32346 AP VIEW OF THE PELVIS. COMMENT: In progress total left hip arthroplasty. AP view of the pelvis COMMENT: COMPARISON: No prior exams available. Completed total left hip arthroplasty. Prosthesis appears marta in good position. at 1431 Reported and signed by: Jeremy Kruse M.D. CC: Yahir Hendrix MD Technologist: CONOR DALTON (RT.R) Transcribed D/ (1431) AntonySLJ [facility] NAME: YIN IBRAHIM [address] [facility] PHYS: Yahir Nix : 1960 AGE: 60 SEX: F [place] [address] LOC: Y.307 A PHONE #: [phone] EXAM DATE: 03/15/2021 STATUS: DIS IN FAX #: [phone] RAD #: D/C DT 03/16/2021 PAGE 1 Signed Report Patient Name: YIN IBRAHIM Unit No: [id number] EXAMS: CPT CODE: [id number] XR PELVIS 1/2 VIEWS 44270 (Continued) Orig Print D/T: S: 03/16/2021 (1434) [facility] NAME: YIN IBRAHIM [address] [facility] PHYS: Yahir Nix : 1960 AGE: 60 SEX: F [place] [address] LOC: Y.307 APHONE #: [phone] EXAM DATE: 03/15/2021 STATUS: DIS IN FAX #: [phone] RAD #: D/C DT 03/16/2021 PAGE 2 Signed ReportBASIC METABOLIC [id number] 06:32:00 Test Item Value Reference Range Interpretation [...] RATE (test code = GFR) mL/mi n/1.73 i9Bbrtjopnw Range:Healthy Adults >90 mL/min/1.73 m2 For Chronic Kidney Disease: Stage II Mild Decrease i n GFR 60-90 Stag e III Moderate Decrease in GFR 30-59 Stage IV Severe Decrease in GFR 15-29 Stage V Kidney Failure <15 CREATININE (test code 1.03 mg/dL 0.55-1.30 N = CREAT) CALCIUM (test code = 8.2 mg/dL 8.2-10.1 N CA) HGB [id number] 06:07:00 Test Item Value Reference Range Interpretation [...] code = 0.1 {K/CMM} 0.0-0.5 EOSINOPHILS #) [facility][QL] [id number] 14:49:00 Test Item Value Reference Range Interpretation Comments IMMUNOGLOBULIN A (test code = 137 mg/dl 47-310 N IMMUNOGLOBULIN A) IMMUNOGLOBULIN G (test code = 708 mg/dl 600-1640 N IMMUNOGLOBULIN G) IMMUNOGLOBULIN M (test code = 68 mg/dl 50-300 N IMMUNOGLOBULIN M) [facility][QL] PROTEIN, TOTAL AND PROTEIN [id number] 14:49:00 Test Item Value Reference Range Interpretation Comments PROTEIN, TOTAL (test 6.5 g/dl 6.1-8.1 N code = PROTEIN, TOTAL) ALBUMIN (test code = 3.9 g/dl 3.8-4.8 N ALBUMIN) PSWXY-7-JMHQVPMOM 0.4 g/dl 0.2-0.3 (test code = YPPUQ-4-TNCORLDTZ) WLLKD-3-SOWAVBRNO 0.9 g/dl 0.5-0.9 N (test code = JIZNG-1-YCLUPCHAR) BETA 1 GLOBULIN (test 0.4 g/dl 0.4-0.6 [...] diagnosis. Alph a-1 globulin increa se noted. [facility]icians[facility]vel Coronavirus 2019 [id number] 11:21:00 Test Item Value Reference Range Interpretation [...] for the identification of SARS-CoV-2 RNA usingthe Unica M2000 Sy stem under the [facility] Emergen cy UseAuthorizatio n. The testing is perf ormed by personneltraine d in the procedures for the [employer] molecular diagnostic SARS-CoV-2 assa y in vitro. Novel Coronavirus 2018 [id number] 11:21:00 Test Item Value Reference Range Interpretation [...] NONREACTIVE NONREACTIVE DONE AT: [facility] = HIV1AB) [facility] [address] [facility], [place] [address]Done by [employer] aur 4th Gen HIV Ag/Ab C ombo Screen AB HIV 1 16:09:00 Test Item Value Reference Range Interpretation Comments AB HIV 1 2 (test NONREACTIVE NONREACTIVE Done by Sie [employer] code = [id number]) 4th Gen HIV Ag/Ab Combo Screen COMPREHENSIVE METABOLIC [id number] 13:20:00 Test Item Value Reference Range Interpretation [...] RATE (test code = GFR) mL/mi n/1.73 c6Hybjptvbb Range:Healthy Adults >90 mL/min/1.73 m2 For Chronic Kidney Disease: Stage II Mild Decrease i n GFR 60-90 Stage III Moderate Decrea se in GFR 30-59 St age IV Severe Decre ase in GFR 15-29 St age V Kidney Failu re <15 CREATININE (test code 1.18 mg/dL 0.55-1.30 [...] H TOTAL (test code = ALKP) PROTHROMBIN [id number] 13:20:00 Test Item Value Reference Range Interpretation [...] v dempsey IS PATIENT ON ANTICOAGULANTS ? IAas Lab been notified if Patient is on Heparin Drip? NOIf Yes, orderCBC, OCCULT BLOOD, PT every other day NTHROMBOPLASTIN TIME [id number] 13:20:00 Test Item Value Reference Range Interpretation Comments PTT ACTIVATED (test code = APTT) 31.1 secs 24.9-37.0 N IS PATIENT ON ANTICOAGULANTS ? [facility] Lab been notified if Patient is on [...] 0-0 N code = NRBC) - MRI [facility] W/O CONT [id number] 08:45:00 [facility] : 1960 Sex: F Patient Name: YIN IBRAHIM Unit No: [id number] EXAMS: CPT CODE: [id number] MRI [facility] W/[place] [address] TECHNIQUE: Multiplanar, multisequence MRI of the pelvis/left hip without contrast. COMPARISON: Noneavailable. 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 There is collapse of the articular surface byapproximately 2 mm with severe bone marrow edema extending throughout the femoral head and neck. A left hip joint effusion is present. Avascular necrosis is also visualized throughout the right femoralhead. No definite articular surface collapse is visualized. [...] Bliss MD Technologist: EVAN TIM.MRI,CT Transcribed D/ (8939) [facility] NAME: YIN IBRAHIM [address] [facility] PHYS: Felix Das : 1960 AGE: 60 SEX: F [place], [place] LOC: Y.MRI PHONE #: [phone] EXAM DATE: 03/06/2021 STATUS: DEP CLI FAX #: [phone] RAD #: D/C DT PAGE 1 Signed Report Patient Name: YIN IBRAHIM Unit No: [id number] EXAMS: CPT CODE: [id number] MRI LW JNT W/[place] [address] (Continued) Orig Print D/T: S: 03/07/2021 (1448) [facility] NAME: YIN IBRAHIM [address] [facility] PHYS: RODY Randall RuthyJohn powell : 1960 AGE: 60 SEX: F [place], [place] [address] LOC: Y.MRI PHONE#: [phone] EXAM DATE: 03/06/2021 STATUS: ZANE CLI FAX #: [phone] RAD #: D/C DT PAGE 2 Signed TfdfpvHQHX-WfF-8 (COVID-19) RNA [Presence] in Respiratory specimen by [facility] with probe [id number] 19:23:13 Test Item Value Reference Range Interpretation Comments SARS-CoV-2 (COVID-19) RNA Not detected Not-Detected [Presence] in Respiratory specimen by [facility] with probe detection (test code = 79208-5) [facility]OV[facility] ([facility]) 2020-05-04 18:46:00 Test Item Value Reference Range Interpretation Comments SARS-COV2/RT-PCR (test code = Detected Not Detected, Negative A A [id number]) SARS-COV-2 PERFORMING LAB [facility] (test code = 5704193) Results are for the detection of SARS-CoV-2 [...] copies/mL.This SARS CoV-2 test is a rapid, igeh-mojlMV-QRY test intended for the qualitative detection of [...] 564(g) of the Act.Fact Sheet for Healthcare Providers:https://www.EatWith.[employer]/ Documents/Xpert%20Xpress%20SARS%20CoV-2/Fact%20Sheets/302-3802%56QUEC-CSQ-2%20HE ALTHCARE%20PROVIDERS%20FACT%20SHEET.pdfFact Sheet for Healthcare Patients:https://www.[employer]/Documents/Xpert%20Xpress %20SARS%20CoV-2/Fact%20Sheets/302-3801%92WQXB-WGV-0%20PATIENT%20FACT%20SHEET.pdf Performing Laboratory:[facility], [place] [address]BD Pelvis with Pelvis Transvaginal [id number] 09:51:00STUDY: Pelvis w Pelvis Transvaginal USCOMPARISON: None.HISTORY: - Right lower quadrant abdominal tenderness.FINDINGS:Transvaginal and transabdominal ultrasound images of the pelvis were obtained.Uterus: Has been removed.Ovaries: Have been removed.Pelvic fluid: None.IMPRESSION:Status post hysterectomy and bilateral salpingooophorectomy.Otherwise no significant abnormality.--Read by: Dixie Lewisictated Date/time: 08/23/19 10:39Electronically Signed by: Dixie Lewis MD 08/23/1910:40FINAL REPORTUT PhysiciansUS Breast [id number] 08:22:00COMPLETE ULTRASOUND OF LEFT BREAST AND AXILLA: 08/23/2019CLINICAL: /N63.0 Unspecified Lump In Unspecified Breast. COMPARISON:Comparison is made to exam dated: 08/23/2019 mammogram - [facility]. TECHNIQUE: Color flow and real- [...] the patient. Professional servicesare provided by the [facility].Bashir Esparza M.D. levi/:08/23/2019 09:14:30 Capacity Planning Analyst(s): Alyx Almaraz RDMS, [facility] Centerpatient Imagingletter sent: BI-RADS 1/2 Ultrasound BI-RADS: 2 Benign--Read by: Bashir Esparzaictated Date/time: 08/23/19 09:14Electronically Signed by: Basihr Esparza MD 08/23/1909:14FINAL REPORTUT [facility] Digital Mammo DX Elbert w ed [id number] 07:40:00BILATERAL DIGITAL DIAGNOSTIC MAMMOGRAM 3D/2D WITH CAD: [...] are provided by the [facility].D. AndersonDivision of Diagnostic Imaging.Bashir Esparza M.D. levi/:08/23/2019 09:13:09 Capacity Planning Analyst(s): Radha [facility]patient ImagingMammogram BI-RADS: 0 Indeterminate--Read by: Bashir Esparzaictated Date/time: 08/23/19 09:13Electronically Signed by: Bashir Esparza MD 08/23/1909:13FINAL REPORTUT Physicians[[facility]] CULTURE, URINE, [id number] 16:33:01 Test Item Value Reference Range Interpretation Comments FINAL REPORT (test code = FINAL No Growth REPORT) [facility][O] Urine Dipstick (In Office)2019-08-18 16:32:00 Test Item Value Reference Range Interpretation Comments Glucose (test code = Glucose) neg N LEUKOCYTES (test code = LEUKOCYTES) neg N NITRITE; Normal (test code = 33553-1) neg N UROBILINOGEN; Normal (test code = 0.2 N 74242-3) PROTEIN; Normal (test code = 10017-4) neg N pH (test code = pH) 7.5 N URINE BLOOD; Normal (test code = neg N 25098-5) SPECIFIC GRAVITY; Normal (test code = 1.020 N 2965-2) KETONES; Normal (test code = 94088-0) neg N BILIRUBIN; Normal (test code = 45111-0) neg N [facility] - Affirm VPIII (BV Panel)2019-08-09 00:00:00 Test Item Value Reference Range Interpretation Comments Affirm VPIII (BV Panel) REPORT See Comment (test code = Affirm VPIII (BV Panel) REPORT) [facility] - GC/[id number] 00:00:00 Test Item Value Reference Range Interpretation Comments GC REPORT (test code = GC REPORT) Negative Chlamydia REPORT (test code = Negative 94818-1) [facility]
--- NOTE | 2022-11-13 14:59 | RAD REPORT ---
EXAM DESCRIPTION: CT - Head Brain Wo Cont - 11/13/2022 2:38 pm CLINICAL HISTORY: Syncope COMPARISON: None. TECHNIQUE: Computed axial tomography of the head was obtained. IV contrast was not requested. All CT scans are performed using dose optimization technique as appropriate and may include automated exposure control or mA/KV adjustment according to patient size. FINDINGS: An intracranial bleed is not seen . The ventricles are normal in caliber. No significant hypodense areas within the brain visualized No extra-axial fluid collection is noted. Fluid within the sinuses/ mastoids is not seen. IMPRESSION: No acute intracranial abnormality is seen. If patient's symptoms persist MRI of the bra in would be recommended.
[2022-11-13 15:17] LABS: Urine Blood Negative (Negative); Urine Glucose Negative (Negative); Urine Protein Negative (Negative); Urine Specific Gravity 1.015 (1.005-1.030); Urine pH 7.5 (5.0-7.0)
[2022-11-13 15:22] LABS: Absolute Lymphocytes (CBC) 1.6 K/uL (0.7-4.9); Hematocrit 31.8 % (36.0-45.0); Lymphocytes % 27.2 % (15.3-44.8); MCV 82.7 fL (80-100); MPV 6.6 fL (7.6-11.3); Protime INR 1.05; RBC Red Blood Cell Count 3.85 M/uL (3.86-4.86)
[2022-11-13] MEDS ORDERED: Ringers Lactate 1,000 ML IV ONE (15:27)
[2022-11-13 15:45] LABS: ALT/SGPT 30 U/L (13-56); AST/SGOT 21 U/L (15-37); Albumin 3.6 g/dL (3.4-5.0); Alkaline Phosphatase 158 U/L (45-117); BUN Blood Urea Nitrogen 16 mg/dL (7-18); Bicarbonate 27 mmol/L (21-32); Bilirubin Total 0.4 mg/dL (0.2-1.0); Glomerular Filtration Rate 54 ml/min (=/>90); Glucose Level 111 mg/dL (74-106); Magnesium 2.1 mg/dL (1.6-2.4); NT PRO-BNP 37 pg/mL (<125); Potassium 4.5 mmol/L (3.5-5.1); Protein, Total 6.7 g/dL (6.4-8.2); Sodium Level 137 mmol/L (136-145); Troponin High Sensitivity 5.5 pg/mL (<58.9)
[2022-11-13 15:46] LABS: Bilirubin Direct < 0.1 mg/dL (0-0.2)
[2022-11-13 15:58] LABS: SARS-COV-2 RT PCR NEGATIVE (NEGATIVE)
--- NOTE | 2022-11-13 16:10 | RAD REPORT ---
EXAM DESCRIPTION: Tracy Single View11/13/2022 3:31 pm CLINICAL HISTORY: Shortness of breath COMPARISON: September 2022 FINDINGS: The lungs appear clear of acute infiltrate. The heart is normal size. A central venous li ne in place IMPRESSION: No acute abnormalities displayed
[2022-11-13] MEDS ORDERED: MECLIZINE HCL 12.5 MG TAB ONE (16:54)
--- NOTE | 2022-11-13 17:56 | ER ---
Nurse's Notes [facility] Name: Lydia Hanson Age: 62 yrs Sex: Female : 1960 Arrival Date: 11/13/2022 Time: 13:58 Bed 20 Private MD: Joshua Garcia Diagnosis: Syncope Presentation: 11/13 14:08 Chief complaint: Patient states: she passed out at home after standing up from the bed ap3 at approx 1300 today. Patient states she has vertigo, but has never has never passed out before. Coronavirus screen: At this time, the client does not indicate any symptoms associated with coronavirus-19. Ebola Screen: No symptoms or risks identified at this time. Initial Sepsis Screen: Does the patient meet any 2 criteria? No. Patient's initial sepsis screen is negative. Does the patient have a suspected source of infection? No. Patient's initial sepsis screen is negative. Risk Assessment: Do you want to hurt yourself or someone else? Patient reports no desire to harm self or others. Onset of symptoms was November 13, 2022 at 13:00. 14:08 Method Of Arrival: Ambulatory ap3 14:08 Acuity: RIA 3 ap3 Triage Assessment: 14:11 General: Appears in no apparent distress. Behavior is cooperative. Pain: Denies pain. ap3 Neuro: Level of Consciousness is awake, alert, obeys commands, Oriented to person, place, time, situation, Reports a syncopal episode. Cardiovascular: Patient's skin is warm and dry. Respiratory: Airway is patent Respiratory effort is even, unlabored, Respiratory pattern is regular, symmetrical. Historical: - Allergies: 14:10 Adhesives; ap3 14:10 CEPHALOSPORINS; ap3 14:10 Codeine; ap3 14:10 Latex, Natural Rubber; ap3 14:10 PENICILLINS; ap3 14:10 TETRACYCLINES; ap3 - PMHx: 14:10 CKD; Depression; Hyperlipidemia; Hypertension; L hip replacement; narcolepsy; Sleep ap3 Apnea; Thyroid problem; V-tach; - PSHx: 14:10 Cholecystectomy; hysterectomy; ap3 - Immunization history:: Client reports receiving the 2nd dose of the Covid vaccine, Flu vaccine is up to date. - Social history:: Smoking status: Patient denies any tobacco usage or history of. Patient uses alcohol, occasionally. Screenin:11 Abuse screen: Denies threats or abuse. Nutritional screening: No deficits noted. ap3 Tuberculosis screening: No symptoms or risk factors identified. 15:27 [facility] ED Fall Risk Assessment (Adult) History of falling in the last 3 months, bp including since admission Yes- physiologic fall (2 pts) Confusion or Disorientation No (0 pts) Intoxicated or Sedated No (0 pts) Impaired Gait No (0 pts) Mobility Assist Device Used No (0 pt) Altered Elimination No (0 pt) Score/Fall Risk Level 0 - 2 = Low Risk Oriented to surroundings, Maintained a safe environment, Educated pt \T\ family on fall prevention, incl call for assistance when getting out of bed, Hourly rounding (assess needs \T\ fall precautionary measures) done. Assessment: 14:15 General: SEE TRIAGE NOTE. bp 15:27 Reassessment: No changes from previously documented assessment. Patient and/or family bp updated on plan of care and expected duration. Pain level reassessed. CT PENDING. NO OBJECTIVE NEURO FINDINGS. 17:30 Reassessment: No changes from previously documented assessment. Patient and/or family bp updated on plan of care and expected duration. Pain level reassessed. 18:30 Reassessment: PT DC HOME AMBULATORY WITH FAMILY. bp Vital Signs: 14:08 BP 158 / 77; Pulse 68; Resp 17; Temp 98.1; Pulse Ox 100% ; Weight 83.91 kg; Height 5 ap3 ft. 7 in. (170.18 cm); 15:26 BP 120 / 64; Pulse 66; Resp 16; Pulse Ox 99% ; bp 16:36 BP 110 / 53; Pulse 66; Resp 21; Pulse Ox 100% ; bp 18:00 BP 121 / 62; Pulse 70; Resp 18; Pulse Ox 99% ; bp 14:08 Body Mass Index 28.97 (83.91 kg, 170.18 cm) ap3 ED Course: 13:58 Patient arrived in ED. mr 13:58 Joshua Garcia MD is Private Physician. mr 14:05 Erik Segundo PA is PHCP. jmm 14:05 Cipriano Resendez MD is Attending Physician. jmm 14:10 Triage completed. ap3 14:11 Arm band placed on left wrist. ap3 14:39 CT Head Brain wo Cont In Process Unspecified. EDMS 14:46 Ziyad Zamora, RN is Primary Nurse. bp 15:10 Accessed Port-a-Cath. using accessed w/ #19 Mckee needle, ,sterile technique, per hospital protocol. Clean \T\ dry. Dressing intact. No blood return. Flushes easily. 15:28 Patient has correct armband on for positive identification. Bed in low position. Call bp light in reach. Side rails up X2. Client placed on continuous cardiac and pulse oximetry monitoring. NIBP monitoring applied. 15:32 XRAY Chest (1 view) In Process Unspecified. EDMS 18:30 No provider procedures requiring assistance completed. IV discontinued, intact, bp bleeding controlled, No redness/swelling at site. Pressure dressing applied. Administered Medications: 15:26 Drug: Lactated Ringers Solution 1000 ml Route: IV; Rate: 1000 bolus; Site: Port-a-cath; bp 18:31 Follow up: IV Status: Completed infusion; IV Intake: 1000ml bp 16:45 Drug: Meclizine 50 mg Route: PO; bp 18:01 Follow up: Response: No adverse reaction bp Intake: 18:31 IV: 1000ml; Total: 1000ml. bp Outcome: 17:55 Discharge ordered by MD. zarate 18:30 Discharged to home ambulatory, with family. bp 18:30 Condition: stable 18:30 Discharge instructions given to patient, Instructed on discharge instructions, follow up and referral plans. Demonstrated understanding of instructions, follow-up care. 18:45 Patient left the ED. bp Signatures: Dispatcher [employer] EDMS Erik Segundo PA PA jm Lydia Raines mr Ziyad Zamora, RN RN bp Emilie Mota RN RN ap3
--- NOTE | 2022-11-13 17:56 | EDPHYS ---
Physician Documentation [facility] Name: Lydia Hanson Age: 62 yrs Sex: Female : 1960 Arrival Date: 11/13/2022 Time: 13:58 Bed 20 Private MD: Joshua Garcia ED Physician Cipriano Resendez HPI: 11/13 14:14 This 62 yrs old Female presents to ER via Ambulatory with complaints of Passed Out jmm Prior To Arrival. 14:14 This is a 62-year-old female with history of chronic kidney disease, depression, jmm hyperlipidemia, hypertension, vertigo that presents emerged department with complaint of a syncopal episode which occurred just prior to arrival. Patient states that she had a syncopal episode while after having extension eyelashes placed. Patient states that her symptoms initially felt vertiginous but she completely lost consciousness. Patient stating she still feels some dizziness. Denies chest pain.. Historical: - Allergies: 14:10 Adhesives; ap3 14:10 CEPHALOSPORINS; ap3 14:10 Codeine; ap3 14:10 Latex, Natural Rubber; ap3 14:10 PENICILLINS; ap3 14:10 TETRACYCLINES; ap3 - PMHx: 14:10 CKD; Depression; Hyperlipidemia; Hypertension; L hip replacement; narcolepsy; Sleep ap3 Apnea; Thyroid problem; V-tach; - PSHx: 14:10 Cholecystectomy; hysterectomy; ap3 - Immunization history:: Client reports receiving the 2nd dose of the Covid vaccine, Flu vaccine is up to date. - Social history:: Smoking status: Patient denies any tobacco usage or history of. Patient uses alcohol, occasionally. ROS: 14:14 Constitutional: Negative for fever, chills, and weight loss, Cardiovascular: Negative jmm for chest pain, palpitations, and edema. 14:14 Neuro: Positive for dizziness. 14:14 All other systems are negative. Exam: 14:14 Constitutional: This is a well developed, well nourished patient who is awake, alert, jmm and in no acute distress. Head/Face: atraumatic. Eyes: EOMI, no conjunctival erythema appreciated ENT: Moist Mucus Membranes 14:14 Chest/axilla: Normal chest wall appearance and motion. Cardiovascular: Regular rate and rhythm. No edema appreciated Respiratory: Normal respirations, no respiratory distress appreciated Abdomen/GI: Non distended Back: Normal ROM Skin: General appearance color normal MS/ Extremity: Moves all extremities, no obvious deformities appreciated, no edema noted to the lower extremities 14:14 Eyes: Extraocular movements: intact throughout, Nystagmus: nystagmus with fast component noted, bilaterally. 14:14 Neuro: Orientation: is normal, Mentation: is normal, Memory: is normal, Cerebellar function: normal finger to nose testing, heel to rondon testing is normal. 14:14 Psych: Behavior/mood is pleasant, cooperative. Vital Signs: 14:08 BP 158 / 77; Pulse 68; Resp 17; Temp 98.1; Pulse Ox 100% ; Weight 83.91 kg; Height 5 ap3 ft. 7 in. (170.18 cm); 15:26 BP 120 / 64; Pulse 66; Resp 16; Pulse Ox 99% ; bp 16:36 BP 110 / 53; Pulse 66; Resp 21; Pulse Ox 100% ; bp 18:00 BP 121 / 62; Pulse 70; Resp 18; Pulse Ox 99% ; bp 14:08 Body Mass Index 28.97 (83.91 kg, 170.18 cm) ap3 MDM: 14:14 Patient medically screened. danilo 17:54 Data reviewed: vital signs, nurses notes. Counseling: I had a detailed discussion with elliot the patient and/or guardian regarding: the historical points, exam findings, and any diagnostic results supporting the discharge/admit diagnosis, lab results, radiology results, the need for outpatient follow up, to return to the emergency department if symptoms worsen or persist or if there are any questions or concerns that arise at home. 19:55 ED course: Patient states feeling much better in the ED. Patient is normotensive, blood [facility] counts are within normal limits, I do not suspect PE, ACS, CT was negative. Cerebellar exam was normal, did not suspect VBI patient patient advised to follow-up with her metal furniture panel coverer for further evaluation otherwise given strict return precautions. Patient understands plan of care.. 11/13 14:28 Order name: Basic Metabolic Panel; Complete Time: 15:55 [facility] 11/13 14:28 Order name: CBC with Diff; Complete Time: 15:26 [facility] 11/13 14:28 Order name: LFT's; Complete Time: 15:55 [facility] 11/13 14:28 Order name: Magnesium; Complete Time: 15:55 [facility] 11/13 14:28 Order name: NT PRO-BNP; Complete Time: 15:55 [facility] 11/13 14:28 Order name: PT-INR; Complete Time: 15:23 [facility] 11/13 14:28 Order name: Troponin HS; Complete Time: 15:55 [facility] 11/13 14:28 Order name: XRAY Chest (1 view); Complete Time: 16:16 [facility] 11/13 14:28 Order name: EKG; Complete Time: 14:29 [facility] 11/13 14:28 Order name: CT Head Brain wo Cont; Complete Time: 15:00 [facility] 11/13 14:28 Order name: COVID-19/FLU A+B; Complete Time: 16:00 [facility] 11/13 15:18 Order name: Urine Dipstick-Ancillary; Complete Time: 15:23 [facility] 11/13 14:28 Order name: Cardiac monitoring; Complete Time: 15:26 [facility] 11/13 14:28 Order name: EKG - Nurse/Tech; Complete Time: 15:26 [facility] 11/13 14:28 Order name: IV Saline Lock; Complete Time: 15:10 [facility] 11/13 14:28 Order name: Labs collected and sent; Complete Time: 15:10 [facility] 11/13 14:28 Order name: O2 Per Protocol; Complete Time: 15:10 [facility] 11/13 14:28 Order name: O2 Sat Monitoring; Complete Time: 15:10 [facility] 11/13 14:34 Order name: Urine Dipstick-Ancillary (obtain specimen); Complete Time: 15:26 [facility] Administered Medications: 15:26 Drug: Lactated Ringers Solution 1000 ml Route: IV; Rate: 1000 bolus; Site: Port-a-cath; bp 18:31 Follow up: IV Status: Completed infusion; IV Intake: 1000ml bp 16:45 Drug: Meclizine 50 mg Route: PO; bp 18:01 Follow up: Response: No adverse reaction bp Disposition Summary: 11/13/22 17:55 Discharge Ordered Location: Home [facility] Condition: Stable [facility] Diagnosis - Syncope [facility] Followup: [facility] - With: Private Physician - When: 2 - 3 days - Reason: Recheck today's complaints, Continuance of care, Re-evaluation by your physician Discharge Instructions: - Discharge Summary Sheet [facility] - Syncope [facility] Forms: - Medication Reconciliation Form jmm - Thank You Letter jmm - Antibiotic Education jmm - Prescription Opioid Use [facility] Signatures: Dispatcher [employer] Cipriano Katz MD MD cha Mickail, Joel, PA PA jmm Peltier, Brian, RN RN bp Emilie Mota RN RN ap3
[2022-11-13 18:54] VITALS: TEMP 98.1
[2022-11-13 18:57] VITALS: BP 121/62; O2SAT 99
--- NOTE | 2022-11-14 15:23 | EKG ---
Test Date: 2022-11-13 Test Time: 15:20:28 Mold Closer: BP MEASUREMENT RESULTS: Intervals: Rate: 63 WA: 172 QRSD: 80 QT: 402 QTc: 411 Ridge: P: 51 WA: 172 QRS: 23 T: 32 INTERPRETIVE STATEMENTS: Normal sinus rhythm Normal ECG Compared to ECG 08/04/2021 08:49:04 T-wave abnormality no longer present Electronically Signed On 11-14-22 15:21:12 BUSINESS AREA MANAGER by Real Blas
== END 2022-11-13 18:45 | disposition home or self-care (01) ==
LOC: ER 13:53
DX: R55 Syncope and collapse (principal); I12.9 Hypertensive chronic kidney disease with stage 1 through stage 4 chronic kidney disease, or unspecified chronic kidney disease; N18.9 Chronic kidney disease, unspecified; Z20.822 Contact with and (suspected) exposure to COVID-19; Z96.642 Presence of left artificial hip joint; Z88.0 Allergy status to penicillin; Z88.1 Allergy status to other antibiotic agents; Z88.5 Allergy status to narcotic agent; Z91.040 Latex allergy status; Z91.048 Other nonmedicinal substance allergy status
CPT/HCPCS: 96361; 93005; 85025; 80048; 36415; 83735; 85610; 80076; 81003; 84484; 83880; 0240U; 70450; 71045; 96360; 99284; J8597; J7120

== ENCOUNTER 2023-09-26 12:58 | Emergency (ER) | payer BC, OTHER ==
--- OUTSIDE RECORDS SUMMARY | 2023-09-26 13:17 | XMS REPORT | Continuity of Care Document ---
:[address] [facility] t Address [address] [facility] [address] [place] [address] Care Team Providers Name Role Phone Joshua Garcia Primary Care Physician Felix Bliss Attending Clinician Unavailable JOAQUIM PARRISH Attending Clinician Unavailable Anselmo Khan MD, Carlos Chavarria Attending Clinician [phone] Oern Gibbs MD Attending Clinician Doctor Unassigned, [place] Attending Clinician Unavailable Paco Lance MA Attending Clinician Unavailable SMITH_GCBZW_Lavell_Janis Attending Clinician Unavailable Steve Lam MD, V. Attending Clinician [phone] Krish KIRKLAND, Di Attending Clinician Unavailable Duane Serna RN Attending Clinician Unavailable Mary Ryan MA Attending Clinician Unavailable Rell Trevino MD Attending Clinician Martha Attending Clinician Unavailable Kathy Cuadra MA Attending Clinician Unavailable Deuce Lopez MD Attending Clinician Lolly Allen MA Attending Clinician Unavailable Cortney Cerda MA Attending Clinician Unavailable Randy KIRKLAND, Raphael Frost Attending Clinician Unavailable MIKA SONI Attending Clinician Unavailable Nae SCHMIDT, Mika Attending Clinician Chase Peters RN Attending Clinician Unavailable Remi Garcia MD Attending Clinician Doc Mccabe DO Attending Clinician [phone] Felix Bliss Attending Clinician [phone] Baldemar Epperson Attending Clinician [phone] MADISON_Simeon_Anju_ Attending Clinician Unavailable Ninfa Del Cid MD [...] Clinician Unavailable Felix Bliss Admitting Clinician Unavailable [email or web address]_Kadireed_S Admitting Clinician Unavailable OREN GIBBS Admitting Clinician Unavailable MADISON_Zhou_Baldemar_ Admitting Clinician Unavailable MIKA SONI Admitting Clinician Unavailable Mika Soni MD Admitting Clinician FOG_Simeon_Anju_ Admitting Clinician Unavailable Baldemar Epperson Admitting Clinician Unavailable Yahir Hendrix Admitting Clinician Unavailable MAYCO LANGFORD Admitting Clinician Unavailable MD MAYCO LANGFORD Admitting Clinician Unavailable UNDEFINED Admitting Clinician Unavailable ROYCE GIBBONS Admitting Clinician Unavailable MD ROYCE GIBBONS Admitting Clinician Unavailable Payers Payer Name Policy Type Policy Number Effective Date Expiration Date S ree BCBSTX PPO [id number] 2016 00:00:00 [place] [id number] 2016 [place] [id number] 2017 [place] 00:00:00 Problems Condition Condition Condition Status Onset Resolution Last Treating Co mments Source Name Details Category Date Date Treatment Clinician Date Syncope Syncope Disease Active Methodi and and 03-10 st collapse collapse 00:00: Hospit a 00 l Arthrofibr Arthrofibr Problem Active 2021-11 A zalea osis osis 1-30 Orthope 00:00: dic 00 Sports Medicin e Coronary Coronary Disease Active 2021-11 Overview: Un raymundo artery artery 11-28 Formattin ity of disease disease 00:00: g of this [place] involving involving 00 note Medi nikos [place] might be Branch coronary coronary different artery of artery of from the [place] original. heart heart 2019:Sange[place] without without nary angina angina Findings pectoris pectoris Diagnosti c Dominance : LeftLeft Anterior Descendin g: Prox LAD lesion is 30% stenosed. Coronary Coronary Disease Active 2021-11 Overview: Un raymundo artery artery -19 Formattin ity of disease disease 00:00: g of this [place] involving involving 00 note Medi nikos [place] might be Branch coronary coronary different artery of artery of from the [place] original. heart heart 2019:[place] without without nary angina angina Findings pectoris pectoris Diagnosti c Dominance : LeftLeft Anterior Descendin g: Prox LAD lesion is 30% stenosed. 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 persistent nce -19 it y of asthma asthma 00:00: [place] [...] CAD in CAD in Disease Active Methodi [place] 6-15 st artery artery 00:00: Hospita 00 [...] Active A zalea on of on of 5-21 Orthope joint Joint 00:00: dic prosthesis Prosthesis 00 Sp orts Medicin e Situation Situation Problem Active Aza yeni with with 5-21 Orthope explicit Explicit 00:00: dic context Context 00 Sports Medicin e Hypertensi Hypertensi Problem Active A zalesantosh ve ve 4-27 Orthope disorder Disorder 00:00: [...] Added automatic ally from request for surgery [id number] Fatty Fatty Disease Active Univers liver liver 07-16 ity of 00:00: [place] 00 Medical Branch Inflammati Inflammati Problem Active A nicolasyeni on of on of 07-29 Orthope rotator [...] SOB SOB Disease Active Methodi (shortness (shortness 4-07 st of breath) of breath) 00:00: Ho spita 00 l Tachycardi Tachycardi Disease Active M ethodi a a 01-22 st 00:00: Hospita 00 l Disorder Disorder Disease Active Metho di of liver of liver 01-22 st 00:00: Hospita 00 l Internal Internal Disease [...] Hospita 00 l 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 03-08 00:00: Hospita 00 [...] Carpal Carpal Problem Active Nathalie tunnel Tunnel 9- Orthope syndrome Syndrome 00:00: dic 00 Sports [...] ents Source Name Type Date Date Clinician Sulfa Propensi Active GI Methodi (Sulfona ty [facility] Hospita Antibiot reaction 00 l ics) s to drug CEPHALOS Drug Active Unknown-Cmnt 2021-11 Un raymundo PORINS Class 1- ity of 00:00: [place] 00 Medical Branch CODEINE DRUG Active Unknown-Cmnt 2021-11 Uni vers INGREDI - ity of 00:00: [place] 00 Medical Branch [...] 2021-11 Univ ers ty to See comments 1-19 ity of adverse 00:00: [place] reaction 00 Medical s Branch Penicill Propensi Active Rash 2021-11 Univer s in ty to - ity of adverse 00:00: [place] reaction 00 Medical s Branch Tetracyc Propensi Active Anaphylaxis 2021-11 U nivers line ty to 11-28 ity of adverse 00:00: [place] reaction 00 Medical s Branch Penicill DA Active SV RASH [facility] ins 07-04 00:00: Orthope 00 dic Hospita l Cephalos DA Active SV ANAPHYLAXIS [facility] porins 07-04 00:00: Orthope 00 dic Hospita l codeine DA Active SV ITCHING [facility] 07-04 00:00: Orthope 00 dic Hospita l tetracyc DA Active SV ANAPHYLAXIS H[facility] line 07-04 00:00: Orthope 00 dic Hospita l adhesive DA Active SV RASH,BLISTER HC A tape S 8-25 [place] 00:00: Orthope 00 dic Hospita l latex DA Active MO BLISTERING; 2021-0 [facility] RASH 07-04 [place] 00:00: Orthope 00 dic Hospita l Penicill DA Active SV 1-0 [facility] ins 8-30 [facility] 00:[facility]: Hospita 00 l of [place] Cephalos DA Active SV 1-0 [facility] porins 830 [facility] 00:00: Hospita 00 l of [place] codeine DA Active SV 1-0 HCA 8-30 Woman[facility] 00:00: Hospita 00 l of [place] tetracyc DA Active SV 1-0 H[facility] line 830 Woman's 00:00: Hospita 00 l of [place] adhesive DA Active SV 1-0 HCA tape 07-09 Woman's 00:00: Hospita 00 l of [place] latex DA Active MO 1-0 HCA 830 Woman[facility] 00:00: Hospita 00 l [facility] [place] Penicill DA Active SV RASH 1-0 H[facility] ins 07-09 [facility] 00:00: Hospita 00 l of [place] Cephalos DA Active SV ANAPHYLAXIS 2020-0 [facility]CA porins 07-09 Woman[facility] 00:00: Hospita 00 l of [place] codeine DA Active SV ITCHING 1-0 HCA 30 [facility] 00:00: Hospita 00 l of [place] tetracyc DA Active SV ANAPHYLAXIS 1-0 HCA line 30 Woman's 00:00: Hospita 00 l of [...] HCA ins 7-12 Clear 00:00: [place] 00 [facility] Cephalos DA Active SV 1-0 HCA porins 7-12 Clear 00:00: [place] 00 [facility] codeine DA Active SV 2021-0 HCA 7-12 Clear 00:00: [place] 00 [facility] tetracyc DA Active SV 1-0 HCA line 7-12 Clear 00:00: [place] 00 [facility] adhesive DA Active SV 2020-0 HCA tape 7-12 Clear 00:00: [place] [facility] Penicill DA Active SV RASH 2020-0 HCA ins 7-12 Clear 00:00: [place] [facility] Cephalos DA Active SV ANAPHYLAXIS 2020-0 HCA porins 7-12 Clear 00:00: [place] [facility] codeine DA Active SV ITCHING 2020-0 HCA 7-12 Clear 00:00: [place] [facility] tetracyc DA Active SV ANAPHYLAXIS 2020-0 HCA line 7-12 Clear 00:00: [place] [facility] adhesive DA Active SV RASH,BLISTER 2020-0 HC A tape S 7-12 Clear 00:00: [place] [facility] adhesive DA Active SV 2020-0 HCA tape 6-18 Clear 00:00: [place] [facility] STEROID DA Active SV MENTAL 2020-0 H[facility] ISSUES 6-18 Clear 00:00: [place] [facility] adhesive DA Active SV RASH,BLISTER 2020-0 HC A tape S 6-18 Clear 00:00: [place] [facility] Penicill DA Active SV 2020-0 HCA ins 5-06 Clear 00:00: [place] [facility] Cephalos DA Active SV 2020-0 HCA porins 5-06 Clear 00:00: [place] [facility] codeine DA Active SV 2020-0 HCA 5-06 Clear 00:00: [place] [facility] tetracyc DA Active SV 2020-0 HCA line 5-06 Clear 00:00: [place] [facility] latex DA Active MO 2020-0 HCA 5-06 Clear 00:00: [place] [facility] Penicill DA Active SV RASH 2020-0 HCA ins 5-06 Clear 00:00: [place] [facility] Cephalos DA Active SV ANAPHYLAXIS 2020-0 HCA porins 5-06 Clear 00:00: [place] [facility] codeine DA Active SV ITCHING 2020-0 HCA 5-06 Clear 00:00: [place] [facility] tetracyc DA Active SV ANAPHYLAXIS 2020-0 HCA line 5-06 Clear 00:00: [place] [facility] latex DA Active MO BLISTERING; 2021-0 HCA RASH 5-06 Clear 00:00: [place] 00 [facility] Cephalos DA Active SV HCA porins 4-30 Clear 00:00: [place] [facility] Cephalos DA Active SV ANAPHYLAXIS HCA porins 4-30 Clear 00:00: [place] [facility] tetracyc DA Active SV ANAPHYLAXIS HCA line 4-30 Clear 00:00: [place] [facility] latex DA Active MO BLISTERING; HCA RASH 4-30 Clear 00:00: [place] [facility] tetracyc DA Active SV HCA line 4-30 Clear 00:00: [place] [facility] latex DA Active MO HCA 4-30 Clear 00:00: [place] [facility] Adhesive Propensi Active Rash 2019-11 Port [...] min. CEPHALOS Allergy Active Nathalie PORINS to 19 Orthope substanc 00:00: dic e 00 Sports Medicin e Codeine Allergy Active 0 Nathalie to 19 Orthope substanc 00:00: dic e 00 Sports Medicin e Penicill Allergy Active Nathalie in g to 07-29 Orthope substanc 00:00: dic e 00 Sports Medicin e Tetracyc Allergy Active 0 Nathalie line to 919 Orthope substanc 00:00: dic e 00 Sports Medicin e Eszopicl Propensi Active Other (See 2017-0 Metallic Methodi one ty to Comments) 3-[address] adverse 00:00: mouth, Hospita reaction 00 tachycard l s to ia drug Latex Propensi Active Other (See 2017-0 blisters Me thodi ty to Comments) 3-15 st adverse 00:00: Hospita reaction 00 l s to drug Cephalos Propensi Active Anaphylaxis 2016-0 Most M ethodi porins ty to 4-[address] adverse 00:00: Keflex Hospita reaction 00 500mg per l s to patient. drug Facial rash, hives, admitted to ICU Penicill Propensi Active Rash Method i ins ty to 03-02 st adverse 00:00: Hospita reaction 00 l s to drug Cephalos Propensi Active Anaphylaxis Most M ethodi porins ty to 03-[address] adverse 00:00: Keflex Hospita reaction 00 500mg per l s to patient. drug Facial rash, hives, admitted to ICU Codeine Propensi Active Itching Method i ty to 03-02 st adverse 00:00: Hospita reaction 00 l s to drug Penicill Propensi Active Rash PEN FAST Meth анна ins ty to 03-[address] adverse 00:00: ( Hospit a reaction 00 3) l s to drug Tetracyc Propensi Active Anaphylaxis M ethodi line ty to 03-02 adverse 00:00: Hospita reaction 00 l s to drug Minocycl Allergy Active 2012-11 Nathalie ine to 11-17 Orthope substanc 00:00: dic e 00 Sports Medicin e Nucynta Allergy Active 2012-11 Nathalie to 11-17 Orthope substanc 00:00: dic e 00 Sports Medicin e Minocycl Propensi Active Other (See 2012-11 Me thodi ine ty to Comments) 11-16 adverse 00:00: Hospita reaction 00 l s to drug Tapentad Propensi Active Other (See 2012-11 Me thodi ol ty to Comments) 11-16 adverse 00:00: Hospita reaction 00 l s to drug Penicill DA Active SV [facility] ins 08-06 Clear 00:00: [place] 00 [facility] Penicill DA Active SV RASH H[facility] ins 08-06 Clear 00:00: [place] [facility] codeine DA Active SV ITCHING HCA 08-06 Clear 00:00: [place] [facility] codeine DA Active SV HCA 08-06 Clear 00:00: [place] 00 [facility] PENICILL Allergy Active Nathalie IN to 07-27 Orthope substanc 00:00: dic e 00 Sports Medicin e Cephalos Propensi Active Other (See 2002-0 Most Me thodi porins ty to Comments) 6-[address] adverse 00:00: Keflex Hospita reaction 00 500mg per l s to patient. drug Facial rash, hives, admitted to ICUAnaphy lactic Reaction Cephalos Allergy Active [place] porins to drug [...] Active Univers ALLERGIE Class ity of S [facility] Family History Family Member Diagnosis Comments Start [...] deep venous thrombosis Natural brother Drug abuse [facility] Natural father Cancer [facility] Natural mother Depression [facility] Paternal COPD [facility] Social History Social Habit Start Date Stop Date Quantity Comments Source History SDOH Scientologist Alcohol Frequency Hospita l History [facility] Scientologist Alcohol Std Drinks Hospit al History [facility] Scientologist Alcohol Binge [facility] Sexual orientation [facility] Exposure to Not sure University of SARS-CoV-2 (event) [facility] Alcohol intake 2023-09-10 2023-09-10 Current drinker [facility] dist 00:00:00 00:00:00 of alcohol Hospital (finding) History of Social 2023-09-10 2023-09-[address] function 00:00:00 00:00:00 Hospital History SDOH Food 2023-01-21 2023-01-[address] Worry 00:00:00 00:00:00 Hospital History SDOH Food 2023-01-21 2023-01-[address] Scarcity 00:00:00 00:00:00 Hospital History SDOH 2023-01-21 2023-01-21 2 Scientologist Transport Med 00:00:00 00:00:00 Hospital History SDOH 2023-01-21 2023-01-21 2 Scientologist Transport Non-Med 00:00:00 00:00:00 Hospita l Tobacco use and 2022-08-14 2022-08-14 Smokeless Scientologist exposure 00:00:00 00:00:00 tobacco non-user Hospital Alcohol Comment 2021-08-06 2021-08-06 pt states about Meth odist 00:00:00 00:00:00 4 drinks a month Hospital Sex Assigned At [birth year] ROLY [facility] 00:00:00 00:00:00 [facility] Center Smoking Status Start Date Stop Date Source Never smoked tobacco [facility] Tobacco smoking consumption unknown [facility] Medications Ordered Filled Start Stop Current Ordering Indication Dosage Frequency Signature Comments Components Source Medication Medication Date Date Medication? Clinician (SIG) Name Name enalapril 2022-11 Yes 10mg Q.5D Take 1 Method i (VASOTEC) 1- tablet (10 st 10 MG 08:54: mg total) Hospita tablet 19 by mouth 2 l (two) times a day. montelukast 2022-11 Yes 10mg QD Take 1 Meth анна (SINGULAIR) 11-10 tablet (10 st 10 mg 08:26: mg total) Hospita tablet 23 by mouth l every evening. ARIPiprazol 2022-11 Yes 10mg Q.5D Take 10 mg Methodi e (ABILIFY) - by mouth 2 st 15 MG 08:26: (two) Hospita tablet 23 times a l day. clonAZEPAM 2022-11 Yes 1mg Q.5D Take 1 Metho di (KlonoPIN) - tablet (1 st 1 MG tablet 08:26: mg total) H ospita 23 by mouth 2 l (two) times a day as needed for anxiety. hydroxychlo 2022-11 Yes 200mg QD Take 1 Met hodi roquine 1-[address] (PLAQUENIL) 08:26: (200 mg Hos [place] 200 mg 23 total) by l tablet mouth daily. omeprazole 2022-11 Yes 40mg QD Take 1 Metho di (PriLOSEC) 11-[address] 40 MG 08:26: (40 mg Hospita capsule 23 total) by l mouth daily. potassium 2022-11 Yes 8meq Q.5D Take 8 mEq Me thodi chloride -[address] (KLOR-CON) 08:26: (two) Hospit a 10 MEQ CR 23 times a l tablet day. ondansetron 2022-11 Yes 4mg Q8H Dissolve 1 Methodi ODT 1-01 tablet (4 st (ZOFRAN-ODT 08:26: mg total) H ospita ) 4 MG 23 on the l disintegrat tongue ing tablet every 8 (eight) hours as needed for nausea or vomiting. albuterol 2022-11 Yes 2{puff} Q6H Inhale 2 M ethodi (PROAIR 1-[address] HFA) 90 08:26: every 6 Hospita mcg/actuati 23 (six) l on inhaler hours as needed for wheezing. armodafiniL 2022-11 Yes 50mg QD 50 mg Metho di 50 mg -[address] tablet 08:26: Hospita 23 l folic acid 2022-11 Yes 1mg QD 1 tablet Met hodi (FOLVITE) 1 11-10 ([address] MG tablet 08:26: total) Hospit a 23 daily. 2 l tabs daily sucralfate 2022-11 Yes 1g Q.5D Take 1 Metho di (CARAFATE) 11-10 tablet (1 st 1 gram 08:26: g total) Hospita tablet 23 by mouth 2 l (two) times a day. methocarbam 2022-11 Yes 750mg Q.25D Take 1 Me thodi oL -[address] (ROBAXIN) 08:26: (750 mg Hospi ta 750 MG 23 total) by l tablet mouth 4 (four) times a day. HYDROcodone 2022-11 Yes 1{tbl} Take 1 Me thodi -acetaminop 1-[address] hen (NORCO) 08:26: mouth as Ho spita 10-325 mg 23 needed. l per tablet fluticasone 2022-11 Yes as needed. Methodi -umeclidin- 1- st vilanter 08:26: Hospita (TRELEGY 23 l ELLIPTA) 200-62.5-25 mcg blister with device atorvastati Yes 20mg QD Take 1 Meth анна n (LIPITOR) 9-08 tablet (20 st 20 mg 00:00: mg total) Hospita tablet 00 by mouth l nightly. aspirin 3-0 2023- No 81mg QD Take 1 Methodi (ECOTRIN) 8-18 08-18 tablet (81 st 81 MG 11:36: 00:00 mg total) Hospit a enteric 58 :00 by mouth l coated daily. tablet estradioL 2022-0 Yes (0.5 gm) Meth анна (ESTRACE) 5-[address] 0.01 % (0.1 00:00: directed Ho spita mg/gram) 00 with l vaginal applicator cream montelukast 3-0 Yes 10mg QD Take 1 Meth анна (SINGULAIR) 3-21 tablet (10 st 10 mg 10:45: mg total) Hospita tablet 56 by mouth l every evening. ARIPiprazol 3-0 Yes 10mg Q.5D Take 10 mg Methodi e (ABILIFY) 3-[address] 15 MG 10:45: (two) Hospita tablet 56 times a l day. clonAZEPAM 3-0 Yes 1mg Q.5D Take 1 Metho di (KlonoPIN) 3-21 tablet (1 st 1 MG tablet 10:45: mg total) H ospita 56 by mouth 2 l (two) times a day as needed for anxiety. hydroxychlo 2023-0 Yes 200mg QD Take 1 Met hodi roquine 3-[address] (PLAQUENIL) 10:45: (200 mg [facility] [place] 200 mg 56 total) by l tablet mouth daily. omeprazole 3-0 Yes 40mg QD Take 1 Metho di (PriLOSEC) 3-[address] 40 MG 10:45: (40 mg Hospita capsule 56 total) by l mouth daily. potassium 2023-0 Yes 8meq Q.5D Take 8 mEq Me thodi chloride 3-[address] (KLOR-CON) 10:45: (two) Hospit a 10 MEQ CR 56 times a l tablet day. ondansetron 3-0 Yes 4mg Q8H Take 1 Meth анна ODT 3-21 tablet (4 st (ZOFRAN-ODT 10:45: mg total) H ospita ) 4 MG 56 by mouth l disintegrat every 8 ing tablet (eight) hours as needed for nausea or vomiting. albuterol 2022-0 Yes 2{puff} Q6H Inhale 2 M ethodi (PROAIR 3-[address] HFA) 90 10:45: every 6 Hospita mcg/actuati 56 (six) l on inhaler hours as needed for wheezing. armodafiniL 2022-0 Yes 50mg QD 50 mg Metho di 50 mg 3-[address] tablet 10:45: Hospita 56 l folic acid 2022-0 Yes 1mg QD 1 tablet Met hodi (FOLVITE) 1 3-21 ([address] MG tablet 10:45: total) Hospit a 56 daily. 2 l tabs daily sucralfate 2022-0 Yes 1g Q.5D Take 1 Metho di (CARAFATE) 3-21 tablet (1 st 1 gram 10:45: g total) Hospita tablet 56 by mouth 2 l (two) times a day. methocarbam 0 Yes 750mg Q.25D Take 1 Me thodi oL 3-[address] (ROBAXIN) 10:45: (750 mg Hospi ta 750 MG 56 total) by l tablet mouth 4 (four) times a day. HYDROCODONE 0 Yes Take by Met hodi -ACETAMINOP 3-[address] HEN ORAL 10:45: Hospita 56 l aspirin 2022-0 Yes 81mg QD Take 1 Methodi (ECOTRIN) 3-21 tablet (81 st 81 MG 10:45: mg total) Hospita enteric 56 by mouth l coated daily. tablet bisoprolol 2021-11- No 5mg QD Take 1 Meth анна (ZEBETA) 5 - 12-28 tablet (5 st MG tablet 00:00: 05:59 mg total) Ho spita 00 :00 by mouth l daily. bisoprolol 2021-11- No 5mg QD Take 1 Meth анна (ZEBETA) 5 2- 12-28 tablet (5 st MG tablet 00:00: 05:59 mg total) Ho spita 00 :00 by mouth l daily. bisoprolol 2021-11- No 5mg QD Take 1 Meth анна (ZEBETA) 5 2-27 12-28 tablet (5 st MG tablet 00:00: 05:59 mg total) Ho spita 00 :00 by mouth l daily. predniSONE 2021-11 Yes [id number] 40mg Take 2 Univers 20 mg 1-21 tablets by ity of tablet 00:00: mouth in [place] 00 the Medical morning. Branch predniSONE 2021-11 Yes [id number] 40mg Take 2 Univers 20 mg 1-21 tablets by ity of tablet 00:00: mouth in [place] 00 the Medical morning. Branch predniSONE 2021-11 Yes [id number] 40mg Take 2 Univers 20 mg 1-21 tablets by ity of tablet 00:00: mouth in [place] 00 the Medical morning. Branch predniSONE 2021-11 Yes [id number] 40mg Take 2 Univers 20 mg 1-21 tablets by ity of tablet 00:00: mouth in [place] 00 the Medical morning. Branch fluticasone 2021-11 Yes 2{puff} 2 Puff, Univers propionate 1-20 Inhalation ity of (FLOVENT 15:30: , Q12H, [facility]) 220 00 First dose Medic al mcg/actuati on Sun Branch on inhaler 09/29/22 2 Puff at 0930, Until Discontinu ed, Routine
Is this order for a patient with suspected or confirmed COVID-19 infection? No
Does this order have Pulmonary/ Critical Care approval? Yes predniSONE 2021-11 40mg 40 mg, Univ ers (DELTASONE) 1-10-02 Oral, ity of tablet 40 15:30: 14:59 DAILY, 3 [place] as mg 00 :00 doses, Medical First dose Branch on 09/29/22 at 0930, Last dose on Fri10/01/22 at 0900, Routine nebivoloL 2021-11 Yes 5mg Take 5 mg Uni vers (BYSTOLIC) 1-20 by mouth ity o f 5 mg tablet 15:19: in the [facility] [place] [facility] morning. Medical Branch prazosin 1 2021-11 Yes 1mg Take 1 mg Un raymundo mg capsule 1-20 by mouth ity o f 15:19: every 8 [place] [address] (eight) Medical hours. Branch zolpidem 2021-11 Yes 10mg Take 10 mg Uni vers (AMBIEN) 10 1-20 by mouth ity of mg tablet 15:19: [place]time [place] as needed Medical for Branch Insomnia. DULoxetine 2021-11 Yes 120mg Take 120 Un raymundo 60 mg CDRS 1-20 mg by ity of 15:19: mouth. [place] [address] Medical Branch ARIPIPRAZOL 2021-11 Yes 5mg Take 5 mg U nivers E ORAL 1-20 by mouth. ity of 15:19: [place] [address] Medical Branch BUPROPION 2021-11 Yes 150mg Take 150 Uni vers HCL ORAL 1-20 mg by ity of 15:19: mouth. [place] [address] Medical Branch omeprazole 2021-11 Yes 40mg Take 40 mg U nivers 20 mg 1-20 by mouth ity of capsule 15:19: in the [place] [address] morning. Medical Branch ondansetron 2021-11 Yes 4mg Take 4 mg U nivers (ZOFRAN) 4 1-20 by mouth ity o f mg tablet 15:19: every 8 [place] [address] (eight) Medical hours as Branch needed. rosuvastati 2021-11 Yes Take by Uni vers n (CRESTOR) 1-20 mouth ity of 5 mg tablet 15:19: daily. [address] Branch hydroxychlo 2021-11 Yes 200mg Take 200 U nivers roquine 1-20 mg by ity of sulfate 15:19: mouth 2 [place] ([place] [id number] (two) Medical OROQUINE times Branch ORAL) daily. ezetimibe 2021-11 Yes 10mg Take 10 mg Un raymundo 10 mg 1-20 by mouth ity of tablet 15:19: in the [place] [address] morning. Medical Branch montelukast 2021-11 Yes 10mg Take 10 mg Univers 10 mg 1-20 by mouth. ity of tablet 15:19: [place] [address] Medical Branch levothyroxi 2021-11 Yes 50ug Take 50 Uni vers ne (LEVO-T) 1-20 mcg by ity of 50 mcg 15:19: mouth [place] [id number] every Medical morning. Branch nebivoloL 2021-11 Yes 5mg Take 5 mg Uni vers (BYSTOLIC) 1-20 by mouth ity o f 5 mg tablet 15:19: in the [place] [address] morning. Medical Branch prazosin 1 2021-11 Yes 1mg Take 1 mg Un raymundo mg capsule 1-20 by mouth ity o f 15:19: every 8 [place] [address] (eight) Medical hours. Branch zolpidem 2021-11 Yes 10mg Take 10 mg Uni vers (AMBIEN) 10 1-20 by mouth ity of mg tablet 15:19: at bedtime [place] 26 as needed Medical for Branch Insomnia. DULoxetine 2021-11 Yes 120mg Take 120 Un raymundo 60 mg CDRS 1-20 mg by ity of 15:19: mouth. [place] [address] Medical Branch ARIPIPRAZOL 2021-11 Yes 5mg Take 5 mg U nivers E ORAL 1-20 by mouth. ity of 15:19: [place] [address] Medical Branch BUPROPION 2021-11 Yes 150mg Take 150 Uni vers HCL ORAL 1-20 mg by ity of 15:19: mouth. [place] [address] Medical Branch omeprazole 2021-11 Yes 40mg Take 40 mg U nivers 20 mg 1-20 by mouth ity of capsule 15:19: in the [place] [address] morning. Medical Branch ondansetron 2021-11 Yes 4mg Take 4 mg U nivers (ZOFRAN) 4 1-20 by mouth ity o f mg tablet 15:19: every 8 [place] [address] (eight) Medical hours as Branch needed. rosuvastati 2021-11 Yes Take by Uni vers n (CRESTOR) 1-20 mouth ity of 5 mg tablet 15:19: daily. [address] Branch hydroxychlo 2021-11 Yes 200mg Take 200 U nivers roquine 1-20 mg by ity of sulfate 15:19: mouth 2 [place] [facility] (two[facility] Medical OROQUINE times Branch ORAL) daily. ezetimibe 2021-11 Yes 10mg Take 10 mg Un raymundo 10 mg 1-20 by mouth ity of tablet 15:19: in the [place] [address] morning. Medical Branch montelukast 2021-11 Yes 10mg Take 10 mg [facility] 10 mg 1-20 by mouth. ity of tablet 15:19: [place] [address] Medical Branch levothyroxi 2021-11 Yes 50ug Take 50 Uni vers ne (LEVO-T) 1-20 mcg by ity of 50 mcg 15:19: mouth [place] tablet every Medical morning. Branch nebivoloL 2021-11 Yes 5mg Take 5 mg Uni vers (BYSTOLIC) 1-20 by mouth ity o f 5 mg tablet 15:19: in the [place] [address] morning. Medical Branch prazosin 1 2021-11 Yes 1mg Take 1 mg Un raymundo mg capsule 1-20 by mouth ity o f 15:19: every 8 [place] [address] (eight) Medical hours. Branch zolpidem 2021-11 Yes 10mg Take 10 mg Uni vers (AMBIEN) 10 1-20 by mouth ity of mg tablet 15:19: at bedtime [place] 26 as needed Medical for Branch Insomnia. DULoxetine 2021-11 Yes 120mg Take 120 Un raymundo 60 mg CDRS 1-20 mg by ity of 15:19: mouth. [place] [address] Medical Branch ARIPIPRAZOL 2021-11 Yes 5mg Take 5 mg U nivers E ORAL 1-20 by mouth. ity of 15:19: [place] [address] Medical Branch BUPROPION 2021-11 Yes 150mg Take 150 Uni vers HCL ORAL 1-20 mg by ity of 15:19: mouth. [place] [address] Medical Branch omeprazole 2021-11 Yes 40mg Take 40 mg U nivers 20 mg 1-20 by mouth ity of capsule 15:19: in the [place] [address] morning. Medical Branch ondansetron 2021-11 Yes 4mg Take 4 mg U nivers (ZOFRAN) 4 1-20 by mouth ity o f mg tablet 15:19: every 8 [place] [address] (eight) Medical hours as Branch needed. rosuvastati 2021-11 Yes Take by Uni vers n (CRESTOR) 1-20 mouth ity of 5 mg tablet 15:19: daily. [place] [address] Medical Branch hydroxychlo 2021-11 Yes 200mg Take 200 U nivers roquine 1-20 mg by ity of sulfate 15:19: mouth 2 [place] ([facility] (two) Medical OROQUINE times Branch ORAL) daily. ezetimibe 2021-11 Yes 10mg Take 10 mg Un raymundo 10 mg 1-20 by mouth ity of tablet 15:19: in the [place] [address] morning. Medical Branch montelukast 2021-11 Yes 10mg Take 10 mg Univers 10 mg 1-20 by mouth. ity of tablet 15:19: [place] [address] Medical Branch levothyroxi 2021-11 Yes 50ug Take 50 Uni vers ne (LEVO-T) 1-20 mcg by ity of 50 mcg 15:19: mouth [place] [id number] every Medical morning. Branch nebivoloL 2021-11 Yes 5mg Take 5 mg Uni vers (BYSTOLIC) 1-20 by mouth ity o f 5 mg tablet 15:19: in the [place] [address] morning. Medical Branch prazosin 1 2021-11 Yes 1mg Take 1 mg Un raymundo mg capsule 1-20 by mouth ity o f 15:19: every 8 [place] [address] (eight) Medical hours. Branch zolpidem 2021-11 Yes 10mg Take 10 mg Uni vers (AMBIEN) 10 1-20 by mouth ity of mg tablet 15:19: at [place]time [place] 26 as needed Medical for Branch Insomnia. DULoxetine 2021-11 Yes 120mg Take 120 Un raymundo 60 mg CDRS 1-20 mg by ity of 15:19: mouth. [place] [address] Medical Branch ARIPIPRAZOL 2021-11 Yes 5mg Take 5 mg U nivers E ORAL 1-20 by mouth. ity of 15:19: [place] [address] Medical Branch BUPROPION 2021-11 Yes 150mg Take 150 Uni vers HCL ORAL 1-20 mg by ity of 15:19: mouth. [place] [address] Medical Branch omeprazole 2021-11 Yes 40mg Take 40 mg U nivers 20 mg 1-20 by mouth ity of capsule 15:19: in the [place] [address] morning. Medical Branch ondansetron 2021-11 Yes 4mg Take 4 mg U nivers (ZOFRAN) 4 1-20 by mouth ity o f mg tablet 15:19: every 8 [place] [address] (eight) Medical hours as Branch needed. rosuvastati 2021-11 Yes Take by Uni vers n (CRESTOR) 1-20 mouth ity of 5 mg tablet 15:19: daily. [place] [address] Medical Branch hydroxychlo 2021-11 Yes 200mg Take 200 U nivers roquine 1-20 mg by ity of sulfate 15:19: mouth 2 [place] (HYDROXYCHL (two) Medical OROQUINE times Branch ORAL) daily. ezetimibe 2021-11 Yes 10mg Take 10 mg Un raymundo 10 mg 1-20 by mouth ity of tablet 15:19: in the [place] [address] morning. Medical Branch montelukast 2021-11 Yes 10mg Take 10 mg Univers 10 mg 1-20 by mouth. ity of tablet 15:19: [place] [address] Medical Branch levothyroxi 2021-11 Yes 50ug Take 50 Uni vers ne (LEVO-T) 1-20 mcg by ity of 50 mcg 15:19: mouth [place] tablet 26 every Medical morning. Branch rosuvastati 2021-11 Yes 5mg 5 mg, Unive rs n (CRESTOR) 1-20 Oral, ity of tablet 5 mg 15:00: [place] Medical on [facility] 09/29/22 at 0900, Until Discontinu ed, Routine omeprazole 2021-11 Yes 40mg 40 mg, Unive rs (PRILOSEC) 1-20 Oral, ity of capsule 40 15:00: DAILY, [place] mg 00 First dose Medical on [facility] 09/29/22 at 0900, Until Discontinu ed, Routine montelukast 2021-11 Yes 10mg 10 mg, Univ ers (SINGULAIR) 1-20 Oral, ity of tablet 10 15:00: DAILY, [place] mg 00 First dose Medical on [facility] 09/29/22 at 0900, Until Discontinu ed, Routine ezetimibe 2021-11 Yes 10mg 10 mg, Univer s (ZETIA) 1-20 Oral, ity of tablet 10 15:00: DAILY, [place] mg 00 First dose Medical on [facility] 09/29/22 at 0900, Until Discontinu ed, Routine ARIPiprazol 2021-11 Yes 5mg 5 mg, Unive rs e (ABILIFY) 1-20 Oral, ity of tablet 5 mg 15:00: [place] 00 First dose Medical on [facility] 09/29/22 at 0900, Until Discontinu ed levothyroxi 2021-11 Yes 50ug 50 mcg, Uni vers ne 1-20 Oral, ity of (SYNTHROID) 12:00: QAM-0600, [place] tablet 50 00 First dose Medi nikos mcg on [facility] 09/29/22 at 0600, Until Discontinu ed, Routine levoFLOXaci 2021-11 Yes 750mg 750 mg, IV Univers n in D5W -20 Piggyback, ity o f (LEVAQUIN) 06:00: Q24H ABX, [place] 750 mg/150 00 First dose Med ical mL on [facility] Piggyback 09/29/22 750 mg at 0000, Until [...]
Gerri cation: Rheumatic disorder Fluticasone 2021-11 Yes [id number] 1{puff} Inhale 1 Univers -Salmeterol 1-20 Puff every it y of (ADVAIR 00:00: 12 [place] DISKUS) 00 (twelve) Medical 500-50 hours. Branch mcg/dose inhalation disk benzonatate 2021-11 Yes [id number] 100mg Take 1 Univers 100 mg 1-20 capsule by ity of capsule 00:00: mouth [place] 00 every 8 Medical (eight) Branch hours. guaiFENesin 2021-11 Yes [id number] 600mg Take 1 Univers (MUCINEX) 1-20 tablet by ity o f 600 mg 00:00: mouth [place] tablet 00 every 12 Medical (twelve) Branch hours. Fluticasone 2021-11 Yes [id number] 1{puff} Inhale 1 Univers -Salmeterol 1-20 Puff every it y of (ADVAIR 00:00: 12 [place] DISKUS) 00 (twelve) Medical 500-50 hours. Branch mcg/dose inhalation disk benzonatate 2021-11 Yes [id number] 100mg Take 1 Univers 100 mg 1-20 capsule by ity of capsule 00:00: mouth [place] 00 every 8 Medical (eight) Branch hours. guaiFENesin 2021-11 Yes [id number] 600mg Take 1 Univers (MUCINEX) 1-20 tablet by ity o f 600 mg 00:00: mouth [place] tablet 00 every 12 Medical (twelve) Branch hours. Fluticasone 2021-11 Yes [id number] 1{puff} Inhale 1 Univers -Salmeterol 1-20 Puff every it y of (ADVAIR 00:00: 12 [place] DISKUS) 00 (twelve) Medical 500-50 hours. Branch mcg/dose inhalation disk benzonatate 2021-11 Yes [id number] 100mg Take 1 Univers 100 mg 1-20 capsule by ity of capsule 00:00: mouth [place] 00 every 8 Medical (eight) Branch hours. guaiFENesin 2021-11 Yes [id number] 600mg Take 1 Univers (MUCINEX) 1-20 tablet by ity o f 600 mg 00:00: mouth [place] tablet 00 every 12 Medical (twelve) Branch hours. Fluticasone 2021-11 Yes [id number] 1{puff} Inhale 1 Univers -Salmeterol 1-20 Puff every it y of (ADVAIR 00:00: 12 [place] DISKUS) 00 (twelve) Medical 500-50 hours. Branch mcg/dose inhalation disk benzonatate 2021-11 Yes [id number] 100mg Take 1 Univers 100 mg 1-20 capsule by ity of capsule 00:00: mouth [place] 00 every 8 Medical (eight) Branch hours. guaiFENesin 2021-11 Yes [id number] 600mg Take 1 Univers (MUCINEX) 1-20 tablet by ity o f 600 mg 00:00: mouth [place] tablet 00 every 12 Medical (twelve) Branch hours. levoFLOXaci 2021-11- No [id number] 750mg Take 1.5 Univers n 500 mg 1-20 11-26 tablets by ity of tablet 00:00: 05:59 mouth [place] 00 :00 every 24 Medical (twenty-fo Branch ur) hours for 5 days. levoFLOXaci 2021-11- No [id number] 750mg Take 1.5 Univers n 500 mg 1-20 11-26 tablets by ity of tablet 00:00: 05:59 mouth [place] 00 :00 every 24 Medical (twenty-fo Branch ur) hours for 5 days. enoxaparin 2021-11 Yes 40mg 40 mg, Unive rs (LOVENOX) 11-28 Subcutaneo ity of injection 23:00: [place], DAILY, [place] 40 mg 00 First dose Medical on [facility] 09/28/22 at 1700, Until Discontinu ed, Routine lidocaine 2021-11- No 1{patch 1 Patch, Univers (LIDODERM) 11-28 } Topical, ity of 5 % (700 22:30: 11:12 Administer [place] mg/patch) 00 :00 over 12 Medical patch 1 Hours, Branch Patch ONCE, 1 dose, On [facility] 09/28/22 at 1630, Routine HYDROcodone 2021-11 Yes 1{tbl} 1 tablet, Univers -acetaminop 1-19 Oral, ity of hen (NORCO 22:18: Q6HPRN, [place] 5) 5-325 mg 59 Starting Medi nikos tablet 1 on [facility] tablet 09/28/22 at 1618, Until Discontinu ed, Routine, Pain (scale 7-10) buPROPion 2021-11 Yes 150mg 150 mg, Univ ers XL -19 Oral, ity of (WELLBUTRIN 21:45: DAILY, [place] XL) tablet 00 First dose Med ical 150 mg (after Branch last modificati on) on [facility] 09/28/22 at 1545, Until Discontinu ed DULoxetine 2021-11 Yes 60mg 60 mg, Unive rs (CYMBALTA) 11-28 Oral, ity of capsule 60 21:45: DAILY, [place] mg 00 First dose Medical on [facility] 09/28/22 at 1545, Until Discontinu ed albuterol 2021-11 Yes 2{puff} 2 Puff, Un raymundo (VENTOLIN) 11-28 Inhalation ity of inhaler 2 21:43: , Q4HPRN, [place] as Puff 13 Starting Medical on [facility] Branch 09/28/22 at 1543, Until Discontinu ed, Routine, Wheezing, Shortness of Breath ipratropium 2021-11 Yes 3mL 3 mL, Unive rs -albuteroL 11-28 Inhalation ity of (DUONEB) 17:30: , Q4H, [place] 0.5 mg-3 00 First dose Medic al mg(2.5 mg on [facility] base)/3 mL 09/28/22 nebulizer at 1130, solution 3 Until mL Discontinu ed, Routine guaiFENesin 2021-11 Yes 200mg 200 mg, Un raymundo 100 mg/5 mL 11-28 Oral, ity of solution 17:27: Q6HPRN, [place] 200 mg 27 Starting Medical on [facility] Branch 09/28/22 at 1127, Until Discontinu ed, Routine, Cough acetaminoph 2021-11 Yes 650mg 650 mg, Un raymundo en -19 Oral, ity of (TYLENOL) 17:27: Q6HPRN, [place] tablet 650 27 Starting Medic al mg on [facility] Branch 09/28/22 at 1127, Until Discontinu ed, Routine, Pain (scale 1-3) ezetimibe 2021-11- No 10mg QD Take 1 Metho di (ZETIA) 10 - 11-12 tablet (10 st mg tablet 00:00: 05:59 mg total) [facility] 00 :00 by mouth l daily. ezetimibe 2021-11- No 10mg QD Take 1 Metho di (ZETIA) 10 - 11-12 tablet (10 st mg tablet 00:00: 05:59 mg total) [facility] 00 :00 by mouth l daily. ezetimibe 2021-11- No 10mg QD Take 1 Metho di (ZETIA) 10 - 11-12 tablet (10 st mg tablet 00:00: 05:59 mg total) Ho spita 00 :00 by mouth l daily. ezetimibe 2021-11 No 10mg QD Take 1 Metho di (ZETIA) 10 11-20 11-12 tablet (10 st mg tablet 00:00: 05:59 mg total) Ho spita 00 :00 by mouth l daily. montelukast 2021-11 Yes 10mg QD Take 10 mg [facility] (SINGULAIR) -[address] 10 mg 09:08: every Hospita tablet 17 evening. l ARIPiprazol 2021-11 Yes 10mg Q.5D Take 10 mg Methodi e (ABILIFY) -[address] 15 MG 09:08: (two) Hospita tablet 17 times a l day. clonAZEPAM 2021-11 Yes 1mg Q.5D Take 1 mg [facility] (KlonoPIN) -[address] 1 MG tablet [...] Q.5D Take 8 mEq [facility] chloride -[address] (KLOR-CON) 09:08: (two) [...] QD 1 tablet Met hodi (FOLVITE) 1 08 ([address] MG tablet 09:08: total) Hospit a 17 daily. 2 l tabs daily sucralfate 2021-11 Yes 1g Q.5D Take 1 Metho di (CARAFATE) 1-08 tablet (1 st 1 gram 09:08: g total) Hospita tablet 17 by mouth 2 l (two) times a day. methocarbam 2021-11 Yes 750mg Q.25D Take 1 [facility] oL -[address] (ROBAXIN) 09:08: (750 mg Hospi ta 750 MG 17 total) by l tablet mouth 4 (four) times a day. HYDROCODONE 2021-11 Yes Take by Met hodi -ACETAMINOP -[address] HEN ORAL 09:08: Hospita 17 l aspirin 2021-11 Yes 81mg QD Take 1 [facility] (ECOTRIN) 1-08 tablet (81 st 81 MG 09:08: mg total) Hospita enteric 17 by mouth l coated daily. tablet montelukast 2021-11 Yes 10mg QD Take 10 mg [facility] (SINGULAIR) -[address] 10 mg 09:08: every Hospita tablet 17 evening. l ARIPiprazol 2021-11 Yes 10mg Q.5D Take 10 mg Methodi e (ABILIFY) -[address] 15 MG 09:08: [...] 40mg QD Take 1 Metho di (PriLOSEC) -[address] 40 MG 09:08: (40 mg Hospita capsule 17 total) by l mouth daily. potassium 2021-11 Yes 8meq Q.5D Take 8 mEq [facility] chloride -[address] (KLOR-CON) 09:08: (two) [...] QD 1 tablet Met [facility]odi (FOLVITE) 1 -08 ([address] MG tablet 09:08: total) [...] by mouth l coated daily. tablet telmisartan 2021-11 No 1{tbl} QD Take 1 M ethodi -hydrochlor 0-11 10-12 tablet by otazaztx 00:00: 04:59 mouth Hospita (Micardis 00 :00 daily. l HCT) 80-12.5 mg per tablet telmisartan 2021-11- No 1{tbl} QD Take 1 M ethodi -hydrochlor 0-11 10-12 tablet by otazaztx 00:00: 04:59 mouth Hospita (Micardis 00 :00 daily. l HCT) 80-12.5 mg per tablet telmisartan 2021-11- No 1{tbl} QD Take 1 M ethodi -hydrochlor 0-11 10-12 tablet by othiazid 00:00: 04:59 mouth Hospita (Micardis 00 :00 daily. l HCT) 80-12.5 mg per tablet telmisartan 2021-11- No 1{tbl} QD Take 1 M ethodi -hydrochlor 0-11 10-12 tablet by othiazid 00:00: 04:59 mouth Hospita (Micardis 00 :00 daily. l HCT) 80-12.5 mg per tablet enalapril 2021-11- No 10mg QD Take 1 Metho di (VASOTEC) 0-11 11-11 tablet (10 st 10 MG 00:00: 05:59 mg total) Hospit a tablet 00 :00 by mouth l daily for 30 days. enalapril 2021-11- No 10mg QD Take 1 [...] times a day for 30 days. furosemide 2021-11- No 40mg [...] mouth l daily. Default OP ins atorvastati 2021-11- No 20mg QD Take 1 Met hodi n (LIPITOR) 0-05 10-06 tablet (20 s t 20 mg 00:00: 04:59 mg total) Hospit a tablet 00 :00 by mouth l daily. Default OP ins atorvastati 2021-11- No 20mg QD Take 1 Met hodi n (LIPITOR) 0-05 10-06 tablet (20 s t 20 mg 00:00: 04:59 mg total) Hospit a tablet 00 :00 by mouth l daily. Default OP ins atorvastati 2021-11 No 20mg QD Take 1 Met hodi n (LIPITOR) 0-05 09-08 tablet (20 s t 20 mg 00:00: 00:00 mg total) Hospit a tablet 00 :00 by mouth l daily. Default OP ins nebivoloL 2021-11 No 10mg QD Take 1 Metho di (BYSTOLIC) 0-05 -28 tablet (10 st 10 MG 00:00: 00:00 mg total) Hospit a tablet 00 :00 by mouth l daily. amLODIPine 2021-11 No 5mg QD Take 1 Meth анна (NORVASC) 5 0-05 10-11 tablet (5 st mg tablet 00:00: 00:00 mg total) Ho spita 00 :00 by mouth l daily. amLODIPine 2021-11 No 5mg QD Take 1 Meth анна (NORVASC) 5 0-05 10-11 tablet (5 st mg tablet 00:00: 00:00 mg total) Ho spita 00 :00 by mouth l daily. amLODIPine 2021-11 No 5mg QD Take 1 Meth анна (NORVASC) 5 0-05 10-11 tablet (5 st mg tablet 00:00: 00:00 mg total) Ho spita 00 :00 by mouth l daily. famotidine No 40mg QD Take 1 Meth анна (PEPCID) 40 6-30 05-22 tablet (40 s t MG tablet 00:00: 04:59 mg total) Ho spita 00 :00 by mouth l nightly as needed for heartburn for up to 30 days. famotidine No 40mg QD Take 1 Meth анна (PEPCID) 40 6- 07-22 tablet (40 s t MG tablet 00:00: 04:59 mg total) Ho spita 00 :00 by mouth l nightly as needed for heartburn for up to 30 days. famotidine No 40mg QD Take 1 Meth анна (PEPCID) 40 04-30- tablet (40 s t MG tablet 00:00: [...] and l 4.5 grams at 0100 zolpidem 2020-11- No 10mg QD Take 10 mg [facility] (AMBIEN) 10 0-07 10-[address] mg tablet 15:08: 00:00 nightly. Hos [place] 58 :00 zolpidem l 10 mg tablet dexmethylph 2020-11- No 40mg QD Take 40 mg Methodi [...] times a l diskus day. inhaler ipratropium 2021-1 Yes [id number] .5mg Q.[id number] Take 2.5 [facility] (ATROVENT) 0-07 [id number] mL (0.[address] 0.02 % 00:00: 3D total) by Hospit a nebulizer 00 nebulizati l solution on 3 (three) times a day. salmeteroL 2020-11 Yes 1{puff} Q.5D Inhale 1 [facility] (Serevent 0-[address] Diskus) 50 00:00: (two) Hospit a mcg/dose 00 times a l diskus day. inhaler ipratropium 2020-11 Yes [id number] .5mg Q.[id number] Take 2.5 [facility] (ATROVENT) 0-07 [id number] mL (0.[address] 0.02 % 00:00: 3D total) by Hospit a nebulizer 00 nebulizati l solution on 3 (three) times a day. salmeteroL 2020-11 Yes 1{puff} Q.5D Inhale 1 [facility] (Serevent 0-[address] Diskus) 50 00:00: (two) Hospit a mcg/dose 00 times a l diskus day. inhaler ipratropium 2020-11 Yes [id number] .5mg Q.[id number] Take 2.5 [facility] (ATROVENT) 0-07 [id number] mL (0.[address] 0.02 % 00:00: 3D total) by Hospit a nebulizer 00 nebulizati l solution on 3 (three) times a day. salmeteroL 2020-11 Yes 1{puff} Q.5D Inhale 1 [facility] (Serevent 0-[address] Diskus) 50 00:00: (two) Hospit a mcg/dose 00 times a l diskus day. inhaler ipratropium 2020-11 Yes [id number] .5mg Q.[id number] Take 2.5 [facility] (ATROVENT) 0-07 [id number] mL (0.[address] 0.02 % 00:00: 3D total) by Hospit a nebulizer 00 nebulizati l solution on 3 (three) times a day. salmeteroL 2021-1 Yes 1{puff} Q.5D Inhale 1 [facility] (Serevent 0-[address] Diskus) 50 00:00: (two) Hospit a mcg/dose 00 times a l diskus day. inhaler ipratropium 2020-11 Yes [id number] .5mg Q.[id number] Take 2.5 [facility] (ATROVENT) 0-07 [id number] mL (0.[address] 0.02 % 00:00: 3D total) by Hospit a nebulizer 00 nebulizati l solution on 3 (three) times a day. salmeteroL 2020-11 Yes 1{puff} Q.5D Inhale 1 [facility] (Serevent 0-[address] Diskus) 50 00:00: (two) Hospit a mcg/dose 00 times a l diskus day. inhaler ipratropium 2020-11 Yes [id number] .5mg Q.[id number] Take 2.5 [facility] (ATROVENT) 0-07 [id number] mL (0.[address] 0.02 % 00:00: 3D total) by Hospit a nebulizer 00 nebulizati l solution on 3 (three) times a day. budesonide 2020-11 No [id number] .5mg QD Take 2 mL [facility] (PULMICORT) [...] up to 30 days. budesonide 2020-11 No [id number] .5mg QD Take 2 mL [facility] (PULMICORT) [...] 1{tbl} Q.5D Take 1 M ethodi docusate 009-[address] sodium 00:00: 04:59 mouth [...] up to 10 days. HYDROcodone 2020-11- No [id number] 1{tbl} Q4H Take 1 [facility] -acetaminop 0-05 19-[address] hen (NORCO) 00:00: 04:59 mouth Hosp symone 10-325 mg 00 :00 every 4 l per tablet (four) hours as needed for severe pain for up to 10 days .acute pain. Max Daily Amount: 6 tablets clindamycin 2020-11- No 300mg Q.[id number] Take 1 [facility] (CLEOCIN) 0-05 19-[id number] 300 MG 00:00: 04:59 3D [...] up to 10 days. HYDROcodone 2020-11- No [id number] 1{tbl} Q4H Take 1 [facility] -acetaminop 008-[address] hen (NORCO) 00:00: 04:59 mouth Hosp symone 10-325 mg 00 :00 every 4 l per tablet (four) hours as needed for severe pain for up to 10 days .acute pain. Max Daily Amount: 6 tablets clindamycin 2020-11 No 300mg Q.[id number] Take 1 [facility] (CLEOCIN) 008-[id number] 300 MG 00:00: 04:59 3D (300 mg Hospita capsule 00 :00 total) by l mouth 3 (three) times a day for 10 days. vancomycin 2020-11- No 1000mg Q24H Infuse [facility] 1,000 mg in 0-14 1,[address] sodium 00:00: 04:59 into a Hospita chloride 00 :00 venous l 0.9% 250 mL catheter IVPB daily for 6 days. vancomycin 2020-11- No 1000mg Q24H Infuse [facility] 1,000 mg in 0-14 1,[address] sodium 00:00: 04:59 into a Hospita chloride 00 :00 venous l 0.9% 250 mL catheter IVPB daily for 6 days. tiotropium 2020- No 1{capsu Q24H Place 1 [facility] (SPIRIVA) 04-24-15 le} capsule st 18 mcg per 09:01: 00:00 into Hospit a inhalation 43 :00 inhaler l capsule and inhale daily as needed. furosemide 2020- No 80mg Q.5D Take 80 mg [facility] (LASIX) 80 04-24-[address] mg tablet 09:01: 00:00 (two) Hospit a 43 :00 times a l day. tiotropium 2020- No 1{capsu Q24H Place 1 [facility] (SPIRIVA) 6-15 -15 le} capsule st 18 mcg per 09:01: 00:00 into Hospit a inhalation 43 :00 inhaler l capsule and inhale daily as needed. furosemide 2020- No 80mg Q.5D Take 80 mg [facility] (LASIX) 80 615 -[address] mg tablet 09:01: 00:00 (two) Hospit a 43 :00 times a l day. clonazepam clonazepam No clonazepam Nathalie 0.5 mg 0.5 mg 6-10 0.5 mg [facility] tablet RX tablet RX 00:00: tablet RX dic by other MD by other 00 by other Sports MD Tamera corbin levothyroxi levothyroxi No levothyrox Nathalie [...] corbin Zofran 4 mg Zofran 4 mg 0 No Zofran 4 Nathalie tablet RX tablet RX 6-10 mg tablet [facility] by other MD by other 00:00: RX by dic 00 other MD Julio Nguyen 5 No Abilify 5 Nathalie mg tablet [...] 00 by other Sports MD Tamera corbin levothyroxi levothyroxi No levothyrox Nathalie [...] tablet [facility] by other MD by other 00:00: RX by dic 00 other MD [...] 00 by other Sports MD Philip e Abilify 5 Abilify 5 No Abilify [...] 00 by other Sports MD Tamera corbin levothyroxi levothyroxi No levothyrox Nathalie ne 50 mcg ne 50 mcg 6-10 ine 50 mcg [facility] tablet RX tablet RX 00:00: tablet RX dic by other MD by other 00 by other Sports MD Tamera corbin Multiple Multiple No Multiple A zalea Vitamin Vitamin 6-10 Vitamin Orthop e 00:00: dic 00 Sports Tamera e omeprazole omeprazole No omeprazole Nathalie 20 [...] by other MD by other Medicjoanna corbin levothyroxi levothyroxi No levothyrox Nathalie [...] tablet RX dic by other MD by dulc emaria MD 00 by other Sports MD Tamera [...] maria MD by other MD by other e [...] other Sports MD Tamera corbin bupropion bupropion 2021-0 No bupropion Nathalie HCl SR 150 HCl [...] maria SCHMIDT 00 by other Julio corbin Bystolic 5 Bystolic 5 No Bystolic 5 Nathalie mg tablet mg tablet 4-27 mg tablet [facility] RX by other RX by other 00:00: RX by nelly SCHMIDT MD 00 other MD Julio corbin Co Q-10 Co Q-10 No Co Q-10 Azal ea (with Vit (with Vit 4-27 (with Vit [facility] E) 100 mg-5 E) 100 mg-5 00:00: E) 100 dic unit unit 00 mg-5 unit Sports capsule RX capsule RX capsule RX Medicin by dulce maria SCHMIDT by other MD by other e dexmedetomi [...] powder RX Sports by other MD by dulce maria MD by dulce maria corbin omeprazole omeprazole No omeprazole Nathalie 40 mg 40 mg 4-27 40 mg [facility] capsule,del capsule,del 00:00: capsule,de dic ayed ayed 00 layed Sports release RX release RX release RX Medicin by dulce maria SCHMIDT by other MD by other e Restasis [...] tablet RX 00:00: tablet RX dic by dulce maria SCHMIDT by dulce maria SCHMIDT 00 by other Julio Lundbergolic 5 Bystolic 5 No Bystolic 5 Nathalie mg tablet mg tablet 4-27 mg tablet [facility] RX by other RX by other 00:00: RX by nelly SCHMIDT MD 00 other MD Julio corbin Co Q-10 [...] total) Hospita tablet 00 daily. l valACYclovi 2020-0 Yes 500mg QD 1 tablet M ethodi r (VALTREX) 3-29 ([address] 500 MG 00:00: total) [facility] tablet 00 daily. l valACYclovi 2020-0 Yes 500mg QD 1 tablet M ethodi r (VALTREX) 3-29 ([address] 500 MG 00:00: total) [facility] tablet 00 daily. l valACYclovi 2020-0 Yes 500mg QD 1 tablet M ethodi r (VALTREX) 3-29 ([address] 500 MG 00:00: total) [facility]ospita tablet 00 daily. l gabapentin 2020- No [id number] 300mg Q.5D Take 1 Methodi (NEURONTIN) -19 -19 capsule st 300 mg 00:00: 04:59 (300 mg [facility]ospita capsule 00 :00 total) by l mouth 2 (two) times a day for 30 days. gabapentin 2020- No [id number] 300mg Q.5D Take 1 [facility] (NEURONTIN) -19 -[address] 300 mg 00:00: 04:59 [...] Start after medrol dosepack. traMADoL 2020- [place] [id number] 25mg Q6H Take 0.5 [facility] (ULTRAM) [...] :00 l mg tablet traMADoL 2020- [place] [id number] 25mg Q6H Take 0.5 [facility] (ULTRAM) [...] mg tablet Nystatin-Tr Nystatin-Tr Yes SUBHRATHA APPLY UT iamcinolone iamcinolone 05 YESY SPARINGLY [facility] [id number] 00:00: M.D. TO a ns UNIT/GM-% UNIT/GM-% [...] daily. l zolpidem 2017-11 Yes 10mg QD Take 1 [facility] (AMBIEN) 10 0-01 tablet (10 st mg tablet 00:00: mg total) [facility] 00 by mouth l nightly as needed. nebivoloL 2017-11- No 5mg 1 tablet [facility] (BYSTOLIC) 0- 10-05 ([address] 5 MG tablet 00:00: 00:00 total) as [facility]ospita 00 :00 needed. l nebivoloL 2017-11- No 5mg 1 tablet [facility] (BYSTOLIC) 0-01 10-05 ([address] 5 MG tablet 00:00: 00:00 total) as [facility]osp[facility] 00 :00 needed. l nebivoloL 2017-11- No 5mg 1 tablet [facility] (BYSTOLIC) 0-01 10-05 ([address] 5 MG tablet [...] by nelly SCHMIDT MD 00 other Sports Medicjoanna e hydrochloro hydrochloro No hydrochlor Nathalie [...] e Medrol 4 mg Medrol 4 mg 2017- No Medrol 4 Nathalie tablet tablet 9-19 [...] Nathalie ne 75 mcg ne 75 mcg -19 ine 75 mcg [facility] tablet tablet 00:00: [...] 6-[address] 00:00: daily. Hospita l levothyroxi Yes 50ug QD Take 50 [...] day. buPROPion 2018-0 Yes 150mg QD Take 1 Metho di XL 6-[address] (WELLBUTRIN 00:00: (150 mg [facility] XL) 150 MG 00 total) by l 24 hr mouth tablet every morning. levothyroxi 2018-0 Yes 25ug QD Take 25 Met [facility]odi ne 6-[address] (SYNTHROID, 00:00: mouth Hospi ta LEVOXYL) 50 00 daily. l mcg tablet RESTASIS Yes 1[drp] Q.5D Administer M ethodi MULTIDOSE 05-[address] 0.05 % 00:00: both eyes Hospit a drops 00 2 (two) l times a day. buPROPion Yes 150mg QD Take 1 Metho di XL 05-[address] (WELLBUTRIN 00:00: (150 mg [facility] XL) 150 MG 00 total) by l 24 hr mouth tablet every morning. CRESTOR 5 2021- No 5mg QD Take 5 mg Me [facility] mg tablet 05-07-[address] 00:00: 00:00 daily. [facility]ospita 00 :00 l CRESTOR 5 2021- No 5mg QD Take 5 mg Me thodi mg tablet 05-07 10-[address] 00:00: 00:00 daily. [facility]ospita 00 :00 l CRESTOR 5 2021- No 5mg QD Take 5 mg Me thodi mg tablet 05-[address] 00:00: 00:00 daily. [facility]ospita [...] day. ursodiol 2015-0 Yes 300mg Q.5D Take 1 [facility] (ACTIGALL) 4-[address] 300 mg 00:00: (300 mg [facility] capsule 00 total) by l mouth 2 (two) times a day. ursodiol 2015-0 Yes 300mg Q.5D Take 1 [facility] (ACTIGALL) 4-[address] 300 mg 00:00: (300 mg [facility] capsule 00 total) by l mouth 2 (two) times a day. promethazin promethazin No promethazi [...] Nathalie e 12.5 mg e 12.5 mg - ne 12.5 mg [facility] tablet i tablet [...] No gemfibrozi Nathalie 600 mg 600 mg 07-27 l 600 mg [facility] tablet RX tablet [...] dic MD SCHMIDT other MD Julio corbin Abilifjoselin 30 Abilify 30 No Abilify 30 Nathalie [...] tablet,exte tablet,exte 00:00: tablet,ext dic nded nded ended Sports release RX release RX release RX Medicin by other MD by other MD by other e MD Minayaalin LA Ritalin LA No Ritalin LA Nathalie [...] other MD by other shaquille Nguyen 20 Patrick 20 No Jaspreetfjoselin 20 Nathalie mg tablet mg tablet 9-17 mg tablet [facility] RX by other RX by other 00:00: RX by dic MD SCHMIDT other MD Julio Bedollalifjoselin 30 Abilify 30 No Abilify 30 Nathalie [...] MD by other MD by other e Ritalin LA Ritalin LA No Ritalin LA Nathalie [...] ended tended Medicin release release release e [id number]- [id number]- [id number] 50 TAKE 1 50 TAKE 1 -50 [...] rts MOUTH AT MOUTH AT TABLET BY Va dicin BEDTIME BEDTIME MOUTH AT e BEDTIME [...] mg Ortho pe tablet tablet tablet dic Bubbl Medicin e budesonide budesonide No budesonide Nathalie [...] ended tended Medicin release release release e [id number]- [id number]- [id number] 50 TAKE 1 50 TAKE 1 -50 [...] 100 mg [facility] capsule capsule capsule dic Bubbl Medicin e glycopyrrol glycopyrrol No glycopyrro Nathalie ate 1 mg ate 1 mg late 1 mg Or thope tablet tablet tablet dic Bubbl Medicin e hydrocodone hydrocodone No hydrocodon Nathalie [...] 25 mg [facility] tablet tablet tablet dic Bubbl Medicin e meloxicam meloxicam No meloxicam Nathalie [...] topical gel topical gel topical dic gel Bubbl Medicin e montelukast montelukast No montelukas Nathalie [...] rts MOUTH AT MOUTH AT TABLET BY Va dicin BEDTIME BEDTIME MOUTH AT e BEDTIME [...] ended tended Medicin release release release e [id number]- kwfspbja89- elnhemxb31 50 TAKE 1 50 TAKE 1 -50 [...] 100 mg [facility] capsule capsule capsule dic Keepstreamin e glycopyrrol glycopyrrol No glycopyrro Nathalie ate 1 mg ate 1 mg late 1 mg Or thope tablet tablet tablet dic Bubbl Medicin e hydrocodone hydrocodone No hydrocodon Nathalie [...] ended tended Medicin release release release e utxqiyzd83- ochhvjxz14- wtbwlisq80 50 TAKE 1 50 TAKE 1 -50 [...] e zolpidem 10 zolpidem 10 No zolpidem [place]lie mg tablet mg tablet 10 mg Orth ope TAKE 1 TAKE 1 tablet dic TABLET BY TABLET BY TAKE 1 Spo rts MOUTH AT MOUTH AT TABLET BY Va dicin BEDTIME BEDTIME MOUTH AT e BEDTIME [...] ended tended Medicin release release release e - - [id number] 50 TAKE 1 50 TAKE 1 -50 [...] rts MOUTH AT MOUTH AT TABLET BY Va dicin BEDTIME BEDTIME MOUTH AT e BEDTIME [...] ended tended Medicin release release release e [id number]- rljpltzy67- uznmalkt42 50 TAKE 1 50 TAKE 1 -50 [...] for for Medicin inhalation inhalation inhalation e Prazosin Prazosin Yes UT HCl - 1 MG HCl - 1 MG Phy sici Oral Oral ans Capsule Capsule leucovorin leucovorin No leucovorin Nathalie calcium 5 [...] BEORE MINUTES FUROSEMIDE) FUROSEMIDE) BEORE FUROSEMIDE ) Montelukast Montelukast Yes U T Sodium 10 Sodium 10 Physi ci MG Oral MG Oral ans Tablet Tablet metolazone metolazone No metolazone Nathalie 5 mg [...] tablet tablet tablet dic Sports Medicin e DULoxetine DULoxetine Yes UT HCl - 60 MG HCl - 60 MG P hysici Oral Oral ans Capsule Capsule Delayed Delayed Release Release Particles Particles Rasuvo (PF) Rasuvo (PF) No Rasuvo Nathalie [...] RX by Sports other MD Medicin e ARIPiprazol ARIPiprazol Yes U T e 10 MG e 10 MG Physici Oral Tablet Oral Tablet a ns Disintegrat Disintegrat ing ing zolpidem 10 zolpidem 10 No zolpidem Nathalie mg tablet mg tablet 10 mg Orth ope TAKE 1 TAKE 1 tablet dic TABLET BY TABLET BY TAKE 1 Spo rts MOUTH AT MOUTH AT TABLET BY Va dicin BEDTIME BEDTIME MOUTH AT e BEDTIME [...] tablet tablet tablet dic Sports Medicin e Wellbutrin Wellbutrin Yes UT TABS TABS Physici ans aspirin 81 aspirin 81 No aspirin 81 [...] FOR COUGH FOR COUGH NEEDED FOR COUGH Co Q 10 Co Q 10 Yes UT CAPS CAPS Physici ans budesonide budesonide No budesonide Nathalie 0.5 mg/2 [...] ended tended Medicin release release release e [id number]- padnquhd19- ksnonyfz68 50 TAKE 1 50 TAKE 1 -50 TAKE 1 CAPSULE (40 CAPSULE (40 CAPSULE MG) BY MG) BY (40 MG) BY MOUTH DAILY MOUTH DAILY MOUTH IN THE IN THE DAILY IN MORNING MORNING THE MORNING Restasis Restasis Yes UT EMUL EMUL Physici ans dextroamphe dextroamphe No dextroamph Nathalie tamine-amph tamine-amph [...] Medicin DAILY DAILY MOUTH e TWICE DAILY Crestor 5 Crestor 5 Yes UT MG Oral MG Oral Physici Tablet Tablet ans gabapentin gabapentin No gabapentin Nathalie 100 mg [...] tablet mg tablet dic Sports Medicin e Bystolic 10 Bystolic 10 Yes U T MG Oral MG Oral Physici Tablet Tablet ans levofloxaci levofloxaci No levofloxac Nathalie n 500 [...] tablet ting Spo rts tablet Medicin e Levothyroxi Levothyroxi Yes U T ne Sodium ne Sodium Physi ci 50 MCG Oral 50 MCG Oral a ns Tablet Tablet ondansetron ondansetron No ondansetro Nathalie HCl 4 [...] DAYS EVERY 12 HOURS FOR 7 DAYS Ambien 10 Ambien 10 Yes UT MG Oral MG Oral Physici Tablet Tablet ans telmisartan telmisartan No telmisarta Nathalie 80 80 [...] e zolpidem 10 zolpidem 10 No zolpidem Natahlie mg tablet mg tablet 10 mg Orth ope TAKE 1 TAKE 1 tablet dic TABLET BY TABLET BY TAKE 1 Spo rts MOUTH AT MOUTH AT TABLET BY Me dicin BEDTIME BEDTIME MOUTH AT e BEDTIME Dexmethylph Dexmethylph Yes U T enidate HCl enidate HCl P hysici ER 40 MG ER 40 MG ans Oral Oral Capsule Capsule Extended Extended Release 24 Release 24 Hour Hour Advair Advair No Advair Nathalie Diskus 500 [...] DAY A DAY MOUTH TWICE A DAY clonazePAM clonazePAM Yes UT 1 MG Oral 1 MG Oral Physi ci Tablet Tablet ans atorvastati atorvastati No atorvastat Nathalie n 20 [...] emiliano emiliano emiliano dic Sports Medicin e Hydroxychlo Hydroxychlo Yes U T roquine roquine Physici Sulfate 200 Sulfate 200 a ns MG Oral MG Oral Tablet Tablet clotrimazol clotrimazol No clotrimazo Nathalie e-betametha e-betametha [...] ended tended Medicin release release release e [id number]- mjvommmh93 50 TAKE 1 50 TAKE 1 -50 [...] Sports Medicin e amlodipine amlodipine No amlodipine Nathalie 5 mg [...] Test Sports kit kit kit Medicin e Ondansetron Ondansetron Yes U T HCl - 4 MG HCl - 4 MG Phy sici Oral Tablet Oral Tablet a ns fluconazole fluconazole No fluconazol Nathalie 150 mg [...] 100 mg [facility] capsule capsule capsule dic Bubbl Medicin e glycopyrrol glycopyrrol No glycopyrro Nathalie ate 1 mg ate 1 mg late 1 mg Or thope tablet tablet tablet dic Sports Medicin e aripiprazol aripiprazol No aripiprazo Nathalie e 10 mg e 10 mg le 10 mg Ortho pe tablet tablet tablet dic Bubbl Medicin e hydrocodone hydrocodone No hydrocodon Nathalie [...] NEEDED FOR NEEDED FOR PAIN PAIN PAIN Urodol TABS Urodol TABS Yes U T Physici ans hydrocortis hydrocortis No hydrocorti Nathalie one 2.5 [...] Orth ope tablet dic Sports Medicin e Xyrem SOLN Xyrem SOLN Yes UT Physici ans meclizine meclizine No meclizine Nathalie 25 mg [...] rts MOUTH AT MOUTH AT TABLET BY Va dicin BEDTIME BEDTIME MOUTH AT e BEDTIME [...] MOUTH EVERY MOUTH MORNING MORNING EVERY MORNING Immunizations Ordered Filled Date Status Comments Source Immunization Name Immunization Name [facility] ISABELRebekah 2021-11-23 Completed [facility] VACCINATION 00:00:00 [facility] ISABELRebekah 2021-11-23 Completed [facility] 00:00[facility]00 [facility]23 Completed [facility] VACC[facility] 00:00:00 [facility] 2021-01-31 Completed [facility] MRNA VACCINATION 00:00:00 [facility] ISABELRebekah 2021-01-31 Completed [facility] MRNA VACCINATION 00:00:00 [facility] 2021-01-31 Completed [facility] MRNA VACCINATION 00:00:00 [facility] ISABELRebekah 2021-01-02 Completed [facility] Com[facility] 2021-01-02 Completed [facility] t MRNA VACCINATION 00:00:00 [facility] 2020-07-11 Completed [facility] Quadrivalent 0.5 ML 00:00:00 Intramuscular Solution Prefilled Syringe [place] [id number] Unknown Completed [facility] t MRNA VACCINATION [place] [id number] Unknown Completed [facility] MRNA VACCINATION [place] [id number] Unknown Completed [facility] MRNA VACCINATION [facility] Vital Signs Vital Name Observation Time Observation Value Comments Source Height 2022-10-09 67 [in_i] Nathalie 00:00:00 [facility] BMI (Body Mass 2022-10-09 30.7 kg/m2 [place] Index) 00:00:00 [facility] Body Weight 2022-10-09 196 [lb_av] Nathalie 00:00:00 [facility] Heart rate 2022-09-29 88 /min [facility] 19:00:00 [facility] Oxygen saturation 2022-09-29 94 /min [facility] Arterial blood 19:00:00 [facility] by Pulse oximetry Branch Systolic blood 2022-09-29 127 mm[Hg] [facility] pressure 18:27:00 [facility] Diastolic blood 2022-09-29 65 mm[Hg] [facility] o f pressure 18:27:00 [facility] Body temperature 2022-09-29 37.33 Kaylynn [facility] 18:27:00 [facility] Respiratory rate 2022-09-29 18 /min University 18:27:00 [facility] Body weight 2022-09-28 95.851 kg [facility] 16:57:00 [facility] Height 2022-09-03 67 [in_i] Nathalie 00:00:00 [facility] BMI (Body Mass 2022-09-03 30.7 kg/m2 Nathalie Index) 00:00:00 [facility] Body Weight 2022-09-03 196 [lb_av] Nathalie 00:00:00 [facility] Height 2022-08-27 67 [in_i] Nathalie 00:00:00 [facility] Height 2022-07-19 67 [in_i] Nathalie 00:00:00 [facility] Systolic blood 2023-09-10 151 mm[Hg] [facility] pressure 13:24:00 Hospital Diastolic blood 2023-09-10 94 mm[Hg] [facility] pressure 13:24:00 Hospital Heart rate 2023-09-10 68 /min [facility] 13:24:00 Hospital Body height 2023-09-10 170.2 cm [facility] 13:24:00 Hospital Body weight 2023-09-10 92.987 kg [facility] 13:24:00 Hospital BMI 2023-09-10 32.11 kg/m2 [facility] 13:24:00 Hospital Oxygen saturation 2023-09-10 100 /min [facility] in Arterial blood 13:24:00 Hospital by Pulse oximetry Respiratory rate 2023-07-23 18 /min [facility] 14:30:00 Hospital Body temperature 2023-07-23 35.67 Kaylynn [facility] 11:31:00 Hospital Systolic blood 2023-01-28 162 mm[Hg] [facility] pressure 15:45:00 Hospital Diastolic blood 2023-01-28 77 mm[Hg] [facility] pressure 15:45:00 Hospital Heart rate 2023-01-28 74 /min [facility] 15:45:00 Hospital Body height 2023-01-28 170.2 cm [facility] 15:45:00 Hospital Body weight 2023-01-28 97.977 kg [facility] 15:45:00 Hospital BMI 2023-01-28 33.83 kg/m2 [facility] 15:45:00 Hospital Oxygen saturation 2023-01-28 95 /min [facility] in Arterial blood 15:45:00 Hospital by Pulse oximetry Systolic blood 2022-09-17 127 mm[Hg] [facility] pressure 15:07:00 Hospital Diastolic blood 2022-09-17 66 mm[Hg] [facility] pressure 15:07:00 Hospital Heart rate 2022-09-17 74 /min [facility] 15:07:00 Hospital Body height 2022-09-17 165.1 cm [facility] 15:07:00 Hospital Body weight 2022-09-17 101.334 kg [facility] 15:07:00 Hospital BMI 2022-09-17 37.18 kg/m2 [facility] 15:07:00 Hospital Oxygen saturation 2022-09-17 100 /min [facility] in Arterial blood 15:07:00 Hospital by Pulse oximetry Respiratory rate 2022-08-23 18 /min [facility] 14:58:00 Hospital Body temperature 2022-08-20 37.11 Kaylynn [facility] 03:59:20 Hospital Heart rate 2021-08-16 89 /min [facility] 18:49:00 Hospital Respiratory rate 2021-08-16 18 /min [facility] 18:49:00 Hospital Oxygen saturation 2021-08-16 93 /min [facility] in Arterial blood 18:39:00 Hospital by Pulse oximetry Systolic blood 2021-08-16 132 mm[Hg] [facility] pressure 17:02:17 [facility] Diastolic blood 2021-08-16 63 mm[Hg] [facility] pressure 17:02:17 Hospital Body temperature 2021-08-16 36.06 Kaylynn [facility] 17:02:17 Hospital Body weight 2021-08-15 91 kg [facility] 11:00:00 Hospital BMI 2021-08-15 31.42 kg/m2 [facility] 11:00:00 Hospital Body height 2021-04-24 170.2 cm [facility] 14:01:00 Hospital Systolic blood 2021-03-13 118 mm[Hg] [...] Systolic blood 2020-09-25 127 mm[Hg] [facility]: LUE; [facility] pressure 09:23:00 Position: Sitting Diastolic blood 2020-09-25 80 mm[Hg] [facility] LUE[facility] pressure 09:23:00 Position: Sitting Body height 2020-09-25 67 [in_us] [facility] 09:23:00 Weight 2020-09-25 218.375 [lb_av] [facility] 09:23:00 Body mass index 2020-09-25 34.2 kg/m2 [facility] (BMI) [Ratio] 09:23:00 Body temperature 2020-09-25 96.3 [degF] Method: [facility] 09:23:00 Temporal Systolic blood 2020-04-14 138 mm[Hg] Location[place] LUE; [facility] pressure 08:32:00 Position: Sitting Diastolic blood 2020-04-14 77 mm[Hg] Location: LUE; [facility] pressure 08:32:00 Position: Sitting Body height 2020-04-14 67 [in_us] [facility] 08:32:00 Weight 2020-04-14 200 [lb_av] [facility] 08:32:00 Body mass index 2020-04-14 31.32 kg/m2 [facility] (BMI) [Ratio] 08:32:00 Body temperature 2020-04-14 97.8 [degF] Method: [facility] 08:32:00 Temporal Heart Rate 2020-04-14 70 /min [facility] 08:32:00 BP Systolic 2019-08-18 136 mm[Hg] Location: LUE; [facility] 15:52:00 Position: Sitting BP Diastolic 2019-08-18 80 mm[Hg] Location: LUE; [facility] 15:52:00 Position: Sitting Height 2019-08-18 67 [in_us] [facility] 15:52:00 Weight 2019-08-18 216.375 [lb_av] [facility] 15:52:00 Body Mass Index 2019-08-18 33.89 kg/m2 [facility] Calculated 15:52:00 Temperature 2019-08-18 98.7 [degF] [facility] 15:52:00 BP Systolic 2019-08-09 119 mm[Hg] Location: E; [facility] 10:10:00 Position: Sitting BP Diastolic 2019-08-09 74 mm[Hg] Location: LUE; [facility] 10:10:00 Position: Sitting Height 2019-08-09 67 [in_us] [facility] 10:10:00 Weight 2019-08-09 214.375 [lb_av] [facility] 10:10:00 Body Mass Index 2019-08-09 33.58 kg/m2 [facility] Calculated 10:10:00 Procedures Procedure Date / Time Performing Clinician Source Performed ECG 12-LEAD 2023-09-10 13:32:40 [facility] INSURANCE CORRESPONDENCE 2023-09-04 05:01:00 Doctor Unassigned, [facility] EP SUBCUTANEOUS CARDAIC 2023-07-23 12:40:10 Aracelyny Oren [facility] RHYTHM MONITOR INSERT W PROG ECG 12-LEAD 2023-06-27 16:31:29 [facility] spital ECG 12-LEAD 2023 18:13:38 [facility] V. CT CHEST WO CONTRAST 2023-06-02 18:29:53 Rell [facility] ECG 12-LEAD 2023-03-10 18:58:12 [facility] V. COMPREHENSIVE METABOLIC 2023-02-28 17:54:00 [facility] PANEL [place] NT-PROBNP 2023-02-28 17:54:00 [facility] TTE COMPLETE, W CONTRAST, 2023-02-24 19:21:00 [facility] W DOPPLER ([id number]) [place] CBC WITH PLATELET AND 2023-01-28 15:50:[address] [facility] DIFFERENTIAL FERRITIN LEVEL 2023-01-28 15:50[facility]00 [facility] BUN LEVEL 2023-01-28 15:50:00 [facility] CREATININE LEVEL 2023-01-28 15:50:00 [facility] ESTIMATED GFR 2023-01-28 15:50:00 [facility] [place] ESOPHAGRAM SINGLE 2022-12-18 18:31:[facility] CHEST WO CONTRAST 2022-11-29 20:17:[facility] RADEX SPI LUMBOSAC MINIMUM 2022-10-22 00:00:00 Santosh garcia [facility]opedic 4 VIEWS Sports Medicine EXTERNAL PROVIDER RECORDS 2022-10-07 06:01:00 Doctor Unassigned, [facility] THORAX WO CONTRAST 2022-09-29 14:48:32 Emmy Montoya [facility] MAGNESIUM 2022-09-29 10:40:00 Jan [facility] BASIC METABOLIC PANEL (NA, 2022-09-29 10:40:00 Emmy Montoya [facility] K, CL, CO2, GLUCOSE, BUN, Medica l Branch CREATININE, CA) CBC WITH DIFF 2022-09-29 10:40:00 Jan [facility] SPUTUM CULTURE 2022-09-29 01:22:00 Montoya [facility] PNEUMOCOCCAL ANTIGEN 2022-09-29 01:22:00 Jan Emmy [facility] MRSA / MSSA SCREEN BY PCR, 2022-09-29 00:12:00 Mark Montoyaoja [facility] BLOOD CULTURE SCREEN 2022-09-29 00:05:00 Jan [facility] TROPONIN I 2022-09-29 00:04:00 Jan [facility] HEPATIC FUNCTION PANEL 2022-09-29 00:04:00 Emmy Montoya [facility] ([id number]) (ALB,T.PRO,BILI Medical Branch T,BU/BC,ALT,AST,ALK PHOS) BASIC METABOLIC PANEL (NA, 2022-09-29 00:04:00 Emmy Montoya [facility] K, CL, CO2, GLUCOSE, BUN, Medica l Branch CREATININE, CA) CBC WITH DIFF 2022-09-29 00:04:00 Jan [facility] PROTHROMBIN TIME / INR 2022-09-29 00:04:00 Emmy Montoya [facility] D-DIMER 2022-09-29 00:04:00 Jan [facility] N-TERMINAL PRO-BNP 2022-09-29 00:04:00 Jan Emmy [facility] PROCALCITONIN 2022-09-29 00:04:00 Jan [facility] HIV 1/2 AG-AB WITH REFLEX 2022-09-29 00:04:00 [facility] 2022-09-29 00:04:00 Jan [facility] XR CHEST 2 VW 2022-09-28 20:10:00 Jan [facility] GALV ONLY - INFLUENZA A B 2022-09-28 18:32:00 Emmy Montoya [facility] RSV PCR [facility] COVID-19 (MOLECULAR 2022-09-28 18:32:00 Mark Montoyaoja [facility] TESTING [facility] NUCLEIC ACID AMPLIFICATION) LAB ONLY COVID 2022-09-28 18:32:00 Jan [facility] INTERPRETATION [facility] CBC WITH PLATELET AND 2022-09-17 15:22:[address] [facility] DIFFERENTIAL FERRITIN LEVEL 2022-09-17 15:22:00 Deuce Lopez [facility] SERUM ELECTROPHORESIS 2022-09-17 15:22:00 Deuce Lopez [facility] BUN LEVEL 2022-09-17 15:22:00 [facility] CREATININE LEVEL 2022-09-17 15:22:00 [facility] LDH 2022-09-17 15:22:00 [facility] ESTIMATED GFR 2022-09-17 15:22:00 [facility] ECG 12-LEAD 2022-09-04 13:26:07 [facility] XR, femur, 2 or more view 2022-09-03 00:00:00 Kush gurjit [facility] CT, lower extremity, w/o 2022-09-03 00:00:00 Mar ajime [facility] contrast Sports Medicine RADEX SPI LUMBOSAC MINIMUM 2022-08-27 00:00:00 Santosh garcia [facility]opedic 4 VIEWS Sports Medicine CV CARDIAC PET STRESS TEST 2022-08-23 16:04:36 [facility] CV CARDIAC PET MYOCARDIAL 2022-08-23 16:04:36 [facility] PERFUSION IMAGING Deon TTE COMPLETE, W CONTRAST, 2022-08-23 14:10:00 [facility] W DOPPLER ([id number]) Deon CBC WITH PLATELET AND 2022-08-20 06:26:00 [facility] DIFFERENTIAL Peter [facility] METABOLIC 2022-08-20 06:26:00 [facility] PANEL Peter TROPONIN T 2022-08-20 06:26:00 [facility] Peter B NATRIURETIC PEPTIDE 2022-08-20 06:26:00 [facility] Peter ESTIMATED GFR 2022-08-20 06:26:00 [facility] Peter XR CHEST 2 VW 2022-08-20 04:24:45 [facility] Peetr ECG ED PRELIMINARY 2022-08-20 04:09:14 [facility] INTERPRETATION Peter ECG 12-LEAD 2022-08-20 04:05:32 [facility] Peter LIPID PANEL 2022-08-14 14:37:00 [facility] COMPREHENSIVE METABOLIC 2022-08-14 14:37:00 [facility] PANEL Deon THYROID STIMULATING 2022-08-14 14:37:00 [facility] HORMONE [place] T3 2022-08-14 14:37:00 [facility] T4, FREE 2022-08-14 14:37:00 [facility] NT-PROBNP 2022-08-14 14:37:00 [facility] CBC WITH PLATELET AND 2022-08-14 14:37:00 [facility] ECG 12-LEAD 2022-08-14 13:43:21 [facility] RADEX SPI LUMBOSAC MINIMUM 2022-07-19 00:00:00 Santosh garcia Orthopedic 4 VIEWS Sports Medicine [id number] 2022-07-04 00:00:00 [facility] [id number] 2022-07-04 00:00:00 [facility] [id number] 2022-07-04 00:00:00 [facility] [id number] 2022-07-04 00:00:00 [facility] [id number] 2022-07-04 00:00:00 [facility] [id number] 2022-07-04 00:00:00 [facility] XR, knee, 4 or more view 2022-06-04 00:00:00 Mar jaime [facility] RADEX SPI LUMBOSAC MINIMUM 2022-05-22 00:00:00 Santosh [facility] 4 VIEWS Sports Medicine MRI, lumbar spine, w/o 2022-05-22 00:00:00 Odette frost [facility] contrast Sports Medicine LACTIC ACID LEVEL, SEPSIS 2022-04-30 23:08:00 Ninfa Del Cid [facility] - NOW AND REPEAT 2X EVERY 3 HOURS AMMONIA LEVEL 2022-04-30 23:08:00 Ninfa Del Cid [facility] PROTHROMBIN TIME WITH INR 2022-04-30 23:08:00 Ninfa Del Cid [facility] PARTIAL THROMBOPLASTIN 2022-04-30 23:08:00 [facility] TIME (PTT) CBC WITH PLATELET AND 2022-04-30 21:11:[address] [facility] DIFFERENTIAL COMPREHENSIVE METABOLIC 2022-04-30 21:11:00 JohnathanmsevelioNinfa [facility] PANEL ESTIMATED GFR 2022-04-30 21:11:00 NehemiasNinfa [facility] MANUAL DIFFERENTIAL 2022-04-30 21:11:00 Johnathanmsevelio Ninfa Freeman [facility] CBC WITH PLATELET AND 2021-08-16 10:40:00 Adam Blake [facility] DIFFERENTIAL COMPREHENSIVE METABOLIC 2021-08-16 10:40:00 Adam Blake [facility] PANEL MAGNESIUM LEVEL 2021-08-16 10:40:00 Adam Blake [facility] PHOSPHORUS LEVEL 2021-08-16 10:40:00 Adam Blake [facility] B NATRIURETIC PEPTIDE 2021-08-16 10:40:[address] [facility] ESTIMATED GFR 2021-08-16 10:40:00 Adam Blake [facility] MANUAL DIFFERENTIAL 2021-08-16 10:40:00 Adam Blake [facility] CBC WITH PLATELET AND 2021-08-15 11:36:00 Adam Blake [facility] DIFFERENTIAL COMPREHENSIVE METABOLIC 2021-08-15 11:36:00 Adam Blake [facility] PANEL MAGNESIUM LEVEL 2021-08-15 11:36:00 Adam Blake [facility] PHOSPHORUS LEVEL 2021-08-15 11:36:00 Adam Blake [facility] ESTIMATED GFR 2021-08-15 11:36:00 Adam Blake [facility] MANUAL DIFFERENTIAL 2021-08-15 11:36:[address] [facility] COMPREHENSIVE METABOLIC 2021-08-14 14:58:00 Adam Blake [facility] PANEL ESTIMATED GFR 2021-08-14 14:58:00 Adam Blake [facility] CBC WITH PLATELET AND 2021-08-14 09:59:[address] [facility] DIFFERENTIAL B NATRIURETIC PEPTIDE 2021-08-14 09:59:00 RaúlMayco Arriaga [facility] BASIC METABOLIC PANEL 2021-08-14 09:59:[address] [facility] ESTIMATED GFR 2021-08-14 09:59:00 Mayco Arriaga Conrad [facility] MANUAL DIFFERENTIAL 2021-08-14 09:59:00 [facility] 1 VW PORTABLE 2021-08-13 19:39:00 [facility] R POC GLUCOSE 2021-08-13 19:08:00 [facility] ARTERIAL BLOOD GAS 2021-08-13 18:38:00 [facility] R HEMOGLOBIN & HEMATOCRIT 2021-08-13 18:38:[address] [facility] Maximino POC GLUCOSE 2021-08-13 18:08:00 Corina [facility] XR FEMUR 2 VW RIGHT 2021-08-13 17:55:00 [facility] XR PELVIS 1 OR 2 VW 2021-08-13 17:40:00 [facility] SURGICAL PATHOLOGY REQUEST 2021-08-13 17:14:00 [facility] POC GLUCOSE 2021-08-13 17:13:00 [facility], [facility] OR [place] > 1 HOUR 2021-08-13 16:07:00 Jonathan Meng Ho spital XR PELVIS 1 OR 2 VW 2021-08-13 16:01:00 [facility] [employer] CULTURE 2021-08-13 15:03:00 [facility] SODIUM LEVEL, SYRINGE 2021-08-13 15:03:[address] [facility] ARTERIAL BLOOD GAS, 2021-08-13 15:03:00 OMayco Schroeder [facility] CORRECTED HEMOGLOBIN, SYRINGE 2021-08-13 15:03:00 [facility], [facility] POTASSIUM, SYRINGE 2021-08-13 15:03:00 Mayco Langford [facility] IONIZED CALCIUM, ARTERIAL 2021-08-13 15:03:00 Mayco Arriaga [facility] GLUCOSE LEVEL, SYRINGE 2021-08-13 15:03:[address] [facility] MAGNESIUM LEVEL 2021-08-13 15:03:00 Mayco Arriaga [facility] TRANSFUSE RED BLOOD CELLS 2021-08-13 15:03:00 Chip Oneal [facility] R [employer] CULTURE 2021-08-13 14:50:00 [facility] PELVIS 1 OR 2 VW 2021-08-13 14:50:00 [facility] C[facility] 2021-08-13 14:41:00 [facility] CULT[facility] 2021-08-13 14:35:00 [facility] C[facility] 2021-08-13 14:30:00 [facility] ARTERIAL BLOOD GAS, 2021-08-13 14:07:00 Raúl'Mayco Arriaga [facility] CORRECTED SODIUM LEVEL, SYRINGE 2021-08-13 14:07:[address] [facility] HEMOGLOBIN, SYRINGE 2021-08-13 14:07:00 OMayco Arriaga [facility] POTASSIUM, SYRINGE 2021-08-13 14:07:00 Mayco Arriaga [facility] IONIZED CALCIUM, ARTERIAL 2021-08-13 14:07:00 Mayco Arriaga [facility] GLUCOSE LEVEL, SYRINGE 2021-08-13 14:07:00 [facility] MAGNESIUM LEVEL 2021-08-13 14:07:00 Corina [facility] ANAEROBIC CULTURE 2021-08-13 14:03:00 [facility] 2021-08-13 14:03:00 [facility]ouThe [facility] GRAM STAIN 2021-08-13 14:03:00 [facility] STAIN 2021-08-13 14:03:00 Braly, [facility] TISSUE CULTURE 2021-08-13 14:03:00 Braly, [facility] ANAEROBIC CULTURE 2021-08-13 13:50:00 Braly, [facility] FUNGUS CULTURE 2021-08-13 13:50:00 Braly, [facility] FUNGUS SMEAR 2021-08-13 13:50:00 Braly, [facility] AF[employer] STAIN 2021-08-13 13:50:00 Braly, [facility] TISSUE CULTURE 2021-08-13 13:50:00 Braly, [facility] ANAEROBIC CULTURE 2021-08-13 13:41:00 Braly, [facility] FUNGUS CULTURE 2021-08-13 13:41:00 Braly, [facility] GRAM STAIN 2021-08-13 13:41:00 [facility] STAIN 2021-08-13 13:41:00 Braly, [facility] TISSUE CULTURE 2021-08-13 13:41:00 Braly, [facility] ANAEROBIC CULTURE 2021-08-13 13:35:00 Braly, [facility] FUNGUS CULTURE 2021-08-13 13:35:00 Braly, [facility] GRAM STAIN 2021-08-13 13:35:00 Braly, [facility] AF[employer] STAIN 2021-08-13 13:35:00 Braly, [facility] TISSUE CULTURE 2021-08-13 13:35:00 Braly, [facility] ANAEROBIC CULTURE 2021-08-13 13:30:00 Braly, [facility] FUNGUS CULTURE 2021-08-13 13:30:00 Braly, [facility] GRAM STAIN 2021-08-13 13:30:00 Braly, [facility] AF[employer] STAIN 2021-08-13 13:30:00 Braly, [facility] TISSUE CULTURE 2021-08-13 13:30:00 [facility] ARTERIAL BLOOD GAS, 2021-08-13 13:21:00 Mayco Langford [facility] CORRECTED POTASSIUM, SYRINGE 2021-08-13 13:21:00 Mayco Langford [facility] SODIUM LEVEL, SYRINGE 2021-08-13 13:21:[address] [facility] IONIZED CALCIUM, ARTERIAL 2021-08-13 13:21:00 Mayco Langford [facility] HEMOGLOBIN, SYRINGE 2021-08-13 13:21:00 Mayco Langford [facility] GLUCOSE LEVEL, SYRINGE 2021-08-13 13:21:[address] [facility] ARTERIAL LINE 2021-08-13 13:05:10 [facility] R MI AN ELECTIVE 2021-08-13 13:04:21 [facility] ENDOTRACHEAL AIRWAY R REVISION, ARTHROPLASTY, 2021-08-13 12:19:00 Zhou [facility] HIP CLOSURE, WOUND, LOWER 2021-08-13 12:19:00 Atif [facility] EXTREMITY, USING ROTATION FLAP POC GLUCOSE 2021-08-13 11:40:00 Mayco Langford [facility] HC COMPLETE BLD COUNT 2021-08-13 08:03:[address] [facility] W/AUTO DIFF XR FEMUR 2 VW RIGHT 2021-08-13 05:48:17 Zhou [facility] XR HIPS BILATERAL AP 2021-08-13 05:47:01 [facility] AP PELVIS TYPE AND SCREEN 2021-08-12 21:57:00 Mayco Langford Conrad [facility] PREPARE RBC 2021-08-12 18:37:00 Jeremy Bills ospital Maximino BASIC METABOLIC PANEL 2021-08-12 12:59:00 Yusra jenny [facility] ESTIMATED GFR 2021-08-12 12:59:00 Mayco Langford [facility] B NATRIURETIC PEPTIDE 2021-08-12 10:19:00 [facility] HC COMPLETE BLD COUNT 2021-08-12 10:19:00 [facility] W/AUTO DIFF [facility] BASIC METABOLIC PANEL 2021-08-12 01:21:00 Jonathan Meng [facility] ESTIMATED GFR 2021-08-12 01:21:00 Mayco Langford [facility] CBC WITH PLATELET AND 2021-08-11 09:08:00 [facility] DIFFERENTIAL [facility] BASIC METABOLIC PANEL 2021-08-11 09:08:[address] [facility] B NATRIURETIC PEPTIDE 2021-08-11 09:08:[address] [facility] ESTIMATED GFR 2021-08-11 09:08:00 Mayco Langford [facility] MAGNESIUM LEVEL 2021-08-11 01:16:00 Jonathan Meng spital BASIC METABOLIC PANEL 2021-08-11 01:16:00 Yusra [facility] ESTIMATED GFR 2021-08-11 01:16:00 Mayco Langford [facility] CBC WITH PLATELET AND 2021-08-10 09:31:[address] [facility] DIFFERENTIAL BASIC METABOLIC PANEL 2021-08-10 09:31:[address] [facility] HEPATIC FUNCTION PANEL 2021-08-10 09:31:00 [facility] ESTIMATED GFR 2021-08-10 09:31:00 Mayco Langford [facility] MAGNESIUM LEVEL 2021-08-10 04:07:00 Jonathan Meng spital BASIC METABOLIC PANEL 2021-08-10 04:07:00 Yusra [facility] ESTIMATED GFR 2021-08-10 04:07:00 Mayco Langford [facility] XR CHEST 1 VW PORTABLE 2021-08-09 17:42:[address] [facility] BASIC METABOLIC PANEL 2021-08-09 15:29:00 [facility] MAGNESIUM LEVEL 2021-08-09 15:29:00 Jonathan Meng spital ESTIMATED GFR 2021-08-09 15:29:00 [facility] WITH PLATELET AND 2021-08-09 08:56:00 [facility] DIFFERENTIAL [facility] CREATINE KINASE, TOTAL 2021-08-09 08:56:00 Mcghee [facility] [place] [facility] Poly COMPREHENSIVE METABOLIC 2021-08-09 08:56:00 [facility] PANEL B NATRIURETIC PEPTIDE 2021-08-09 08:56:00 RaúlMayco Arriaga [facility] ESTIMATED GFR 2021-08-09 08:56:00 [facility] TROPONIN 2021-08-09 05:22:00 [facility] ANTI-NEUTROPHILIC 2021-08-09 05:22:00 Mcghee [facility] CYTOPLASMIC ABS PANEL Poly RHEUMATOID FACTOR 2021-08-09 05:22:00 [facility] Poly BASIC METABOLIC PANEL 2021-08-09 01:55:00 [facility] MAGNESIUM LEVEL 2021-08-09 01:55:00 Jonathan Meng spital ESTIMATED GFR 2021-08-09 01:55:00 [facility] BASIC METABOLIC PANEL 2021-08-08 23:41:00 [facility] MAGNESIUM LEVEL 2021-08-08 23:41:00 Jonathan Meng spital TROPONIN 2021-08-08 23:41:00 [facility] HIV AG/AB COMBINATION 2021-08-08 23:41:00 [facility] Poly ESTIMATED GFR 2021-08-08 23:41:00 [facility] US CAROTID DUPLEX 2021-08-08 21:10:00 [facility] BIL[facility] RESPIRATORY PATHOGEN PANEL 2021-08-08 19:41:00 Selma Grigsby [facility] WITH COVID-19 RT-PCR [facility] VANCOMYCIN LEVEL, TROUGH 2021-08-08 19:36:00 Shannan Gibbons [facility] TROPONIN 2021-08-08 19:36:00 [facility] LACTIC ACID LEVEL 2021-08-08 19:36:00 Chidiid [facility] ECG 12-LEAD 2021-08-08 18:54:16 Chidiid [facility] XR CHEST 1 VW PORTABLE 2021-08-08 16:55:00 Jose Grigsby [facility] ARTERIAL BLOOD GAS 2021-08-08 13:50:00 Anyi Ruby [facility] ECG 12-LEAD 2021-08-08 13:40:55 Calista [facility] RHEUMATOID FACTOR 2021-08-08 13:40:00 Calista [facility] ALY 2021-08-08 13:40:00 Calista [facility] CYCLIC CITRULLINATED 2021-08-08 13:40:[address] [facility] PEPTIDE AB, IGG [facility] LACTIC ACID LEVEL 2021-08-08 13:37:00 Calista [facility] HEPATIC FUNCTION PANEL 2021-08-08 13:37:00 Jose Grigs[facility] TROPONIN 2021-08-08 13:37:00 Calista [facility] T4, FREE 2021-08-08 13:37:00 Calista [facility] T3 2021-08-08 13:37:00 Calista [facility] POC GLUCOSE 2021-08-08 13:30:00 [facility] B NATRIURETIC PEPTIDE 2021-08-08 09:28:[address] [facility] FOLATE LEVEL 2021-08-08 09:28:00 Evelyn, [facility] HEMOGLOBIN A1C 2021-08-08 09:28:00 [facility] VITAMIN B12 LEVEL 2021-08-08 09:28:00 [facility] VITAMIN D 25 HYDROXY LEVEL 2021-08-08 09:28:00 [facility] BASIC METABOLIC PANEL 2021-08-08 09:28:00 [facility] HC COMPLETE BLD COUNT 2021-08-08 09:28:00 [facility] W/AUTO DIFF [facility] MAGNESIUM LEVEL 2021-08-08 09:28:00 [facility] ESTIMATED GFR 2021-08-08 09:28:00 Mayco Langford [facility] POC GLUCOSE 2021-08-08 05:02:00 Mayco Langford [facility] CT LOWER EXTREMITY WO 2021-08-08 01:40:14 Cecilia [facility] CONTRAST RIGHT MAGNESIUM LEVEL 2021-08-08 01:00:00 [facility] BASIC METABOLIC PANEL 2021-08-08 01:00:00 [facility] ESTIMATED GFR 2021-08-08 01:00:00 Mayco Langford [facility] US DUPLEX VENOUS LOWER 2021-08-07 19:45:[address] [facility] EXTREMITY LEFT Amber TTE COMPLETE, W CONTRAST, 2021-08-07 19:19:00 Mayco Langford [facility] W DOPPLER ([id number]) COVID-19 QUALITATIVE 2021-08-07 19:04:00 Unique Burks [facility] RT-PCR Helga CT ANGIOGRAM PE CHEST 2021-08-07 17:34:00 Jose Luis Caldera [facility] Amber HC COMPLETE BLD COUNT 2021-08-07 10:35:[address] [facility] W/AUTO DIFF BASIC METABOLIC PANEL 2021-08-07 10:35:00 Mayco Langford [facility] B NATRIURETIC PEPTIDE 2021-08-07 10:35:00 RaúlMayco Arriaga [facility] THYROID STIMULATING 2021-08-07 10:35:00 [facility] HORMONE TYPE AND SCREEN 2021-08-07 10:35:00 Mayco Langford [facility] ESTIMATED GFR 2021-08-07 10:35:00 Elda [facility] XR CHEST 1 VW PORTABLE 2021-08-07 06:40:[address] [facility] COVID-19 ANTI-SPIKE IGG 2021-08-07 06:14:00 Mayco Langford [facility] ANTIBODY TITER COVID-19 SEROLOGY PATIENT 2021-08-07 06:14:00 Mayco Schroeder [facility] SURVEILLANCE CBC WITH PLATELET AND 2021-08-07 06:14:00 Mayco Arriaga [facility] DIFFERENTIAL PROTHROMBIN TIME WITH INR 2021-08-07 06:14:00 [facility] BASIC METABOLIC PANEL 2021-08-07 06:14:00 Mayco Arriaga [facility] MAGNESIUM LEVEL 2021-08-07 06:14:00 [facility], [facility] TROPONIN 2021-08-07 06:14:00 Brennon Tate Ho spital Jose PHOSPHORUS LEVEL 2021-08-07 06:14:00 Brennon Tate ospital Jose ESTIMATED GFR 2021-08-07 06:14:00 [facility] ECG 12-LEAD 2021-08-07 05:43:53 CarleeArriaga, [facility] [id number] 2021-07-10 00:00:00 JONST.02 [facility] [id number] 2021-07-09 00:00:00 MATVA.01 [facility] [id number] 2021-07-09 00:00:00 MATVA.01 [facility] [id number] 2021-07-09 00:00:00 MATVA.01 [facility] [id number] 2021-07-09 00:00:00 AGUSTINA [facility] [id number] 2021-07-09 00:00:00 AGUSTINA [facility] [id number] 2021-05-21 00:00:00 MATVA.01 [facility] US DUPLEX ARTERIAL LOWER 2021-05-15 21:18:[address] [facility] EXTREMITY BILATERAL [id number] 2021-03-15 00:00:00 MATVA.01 [facility] [QL] CBC (INCLUDES 2021-03-13 00:00:00 [facility] [...] PROTHROMBIN (FACTOR 2021-03-13 00:00:00 [facility] II) [id number] MUTATION ANALYSIS MRI SPINE EXTERNAL STUDY 2021-01-08 23:18:[address] [facility] GLORIA Digital Mammo Screening 2020-09-25 00:00:00 [facility] Elbert [id number] [QL] TSH, 3RD GENERATION 2020-04-14 00:00:00 [facility] W/REFLEX TO FT4 [QL] PROLACTIN 2020-04-14 00:00:00 [facility] GLORIA Digital Mammo DX Elbert w 2020-04-14 00:00:00 [facility] [place] [id number] [place] [id number] 2019-08-23 00:00:00 [facility]] CULTURE, URINE, 2019-08-18 00:00:00 [facility] ROUTINE MA Digital Mammo DX Elbert 2019-08-13 00:00:00 [facility] G0204 US Breast Bilat [id number] 2019-08-13 00:00:00 [facility] MA Digital Mammo Screening 2019-08-09 00:00:00 [facility] [id number] US Pelvis with Pelvis 2019-08-09 00:00:00 [facility] Transvaginal [id number] . [facility] - Affirm VPIII 2019-08-09 00:00:00 [...] Date Details Comments Source Future Scheduled Test 2023-09-24 Screening for [facility] 10:57:25 malignant neoplasm of colon (procedure) [code = 890689998] Future Scheduled Test 2023-09-24 Screening for [facility] 10:57:25 malignant neoplasm of colon (procedure) [code = 279857621] Future Scheduled Test 2023-09-24 Screening for [facility] 10:57:25 malignant neoplasm of colon (procedure) [code = [id number]] Future Scheduled Test 2023-09-24 Pneumococcal Vaccine: [facility] 10:57:25 Pediatrics (0 to 5 Years) and At-Risk Patients (6 to 64 Years) (1 - PCV) [code = Pneumococcal Vaccine: Pediatrics (0 to 5 Years) and At-Risk Patients (6 to 64 Years) (1 - PCV)] Future Scheduled Test 2023-09-24 Hepatitis C screening [facility] 10:57:25 (procedure) [code = [id number]] Future Scheduled Test 2023-09-24 Screening for [facility] 10:57:25 malignant neoplasm of colon (procedure) [code = 823267488] Future Scheduled Test 2023-09-24 Screening for [facility] 10:57:25 malignant neoplasm of colon (procedure) [code = 384777470] Future Scheduled Test 2023-09-24 SHINGLES VACCINES (1 [facility] 10:57:25 of 2) [code = SHINGLES VACCINES (1 of 2)] Future Scheduled Test 2023-09-24 Screening for [facility] 10:57:25 malignant neoplasm of cervix (procedure) [code = 514786826] Future Scheduled Test 2023-09-24 HEPATITIS B VACCINES [facility] 10:57:25 (1 of 3 - Risk 3-dose series) [code = HEPATITIS B VACCINES (1 of 3 - Risk 3-dose series)] Future Scheduled Test 2023-09-24 BREAST CANCER [facility] 10:57:25 SCREENING [code = BREAST CANCER SCREENING] Future Scheduled Test 2023-09-24 COVID-19 VACCINE (4 - [facility] 10:57:25 season) [code = COVID-19 VACCINE (4 - season)] Future Scheduled Test 2023-09-24 INFLUENZA VACCINE [facility] 10:57:25 (#1) [code = INFLUENZA VACCINE (#1)] Future Scheduled Test 2023-02-03 Pneumococcal Vaccine: [facility] 08:08:52 Pediatrics (0 to 5 Years) and At-Risk Patients (6 to 64 Years) (1 - PCV) [code = Pneumococcal Vaccine: Pediatrics (0 to 5 Years) and At-Risk Patients (6 to 64 Years) (1 - PCV)] Future Scheduled Test 2023-02-03 Hepatitis C screening [facility] 08:08:52 (procedure) [code = [id number]] Future Scheduled Test 2023-02-03 SHINGLES VACCINES (1 [facility] 08:08:52 of 2) [code = SHINGLES VACCINES (1 of 2)] Future Scheduled Test 2023-02-03 COLONOSCOPY SCREENING [facility] 08:08:52 [code = COLONOSCOPY SCREENING] Future Scheduled Test 2023-02-03 Screening for [facility] 08:08:52 malignant neoplasm of cervix (procedure) [code = [id number]] Future Scheduled Test 2023-02-03 HEPATITIS B VACCINES [facility] 08:08:52 (1 of 3 - Risk 3-dose series) [code = HEPATITIS B VACCINES (1 of 3 - Risk 3-dose series)] Future Scheduled Test 2023-02-03 BREAST CANCER [facility] 08:08:52 SCREENING [code = BREAST CANCER SCREENING] Future Scheduled Test 2023-02-03 COVID-19 VACCINE ([address] [place] [address] 08:08:52 Booster for Moderna series) [code = COVID-19 VACCINE (4 - Booster for Moderna series)] Future Scheduled Test 2022-11-05 Pneumococcal Vaccine: [facility] 15:15:39 Pediatrics (0 to 5 Years) and At-Risk Patients (6 to 64 Years) (1 - PCV) [code = Pneumococcal Vaccine: Pediatrics (0 to 5 Years) and At-Risk Patients (6 to 64 Years) (1 - PCV)] Future Scheduled Test 2022-11-05 Hepatitis C screening [facility] 15:15:39 (procedure) [code = 601102485] Future Scheduled Test 2022-11-05 SHINGLES VACCINES (1 [facility] 15:15:39 of 2) [code = SHINGLES VACCINES (1 of 2)] Future Scheduled Test 2022-11-05 COLONOSCOPY SCREENING [facility] 15:15:39 [code = COLONOSCOPY SCREENING] Future Scheduled Test 2022-11-05 BREAST CANCER [facility] 15:15:39 SCREENING [code = BREAST CANCER SCREENING] Future Scheduled Test 2022-11-05 Screening for [facility] 15:15:39 malignant neoplasm of cervix (procedure) [code = [id number]] Future Scheduled Test 2022-11-05 HEPATITIS B VACCINES [facility] 15:15:39 (1 of 3 - Risk 3-dose series) [code = HEPATITIS B VACCINES (1 of 3 - Risk 3-dose series)] Future Scheduled Test 2022-11-05 COVID-19 VACCINE (4 [facility] 15:15:39 Booster for Moderna series) [code = COVID-19 VACCINE (4 - Booster for Moderna series)] Future Scheduled Test 2022-11-05 INFLUENZA VACCINE [facility] 15:15:39 [code = INFLUENZA VACCINE] Future Scheduled Test 2022-10-01 Pneumococcal Vaccine: [facility] 03:44:26 Pediatrics (0 to 5 Years) and At-Risk Patients (6 to 64 Years) (1 - PCV) [code = Pneumococcal Vaccine: Pediatrics (0 to 5 Years) and At-Risk Patients (6 to 64 Years) (1 - PCV)] Future Scheduled Test 2022-10-01 Hepatitis C screening [facility] 03:44:26 (procedure) [code = 382030504] Future Scheduled Test 2022-10-01 SHINGLES VACCINES (1 [facility] 03:44:26 of 2) [code = SHINGLES VACCINES (1 of 2)] Future Scheduled Test 2022-10-01 COLONOSCOPY SCREENING [facility] 03:44:26 [code = COLONOSCOPY SCREENING] Future Scheduled Test 2022-10-01 BREAST CANCER [facility] 03:44:26 SCREENING [code = BREAST CANCER SCREENING] Future Scheduled Test 2022-10-01 Screening for [facility] 03:44:26 malignant neoplasm of cervix (procedure) [code = 307765965] Future Scheduled Test 2022-10-01 HEPATITIS B VACCINES [facility] 03:44:26 (1 of 3 - Risk 3-dose series) [code = HEPATITIS B VACCINES (1 of 3 - Risk 3-dose series)] Future Scheduled Test 2022-10-01 COVID-19 VACCINE (4 - [facility] 03:44:26 Booster for Moderna series) [code = COVID-19 VACCINE (4 - Booster for Moderna series)] Future Scheduled Test 2022-10-01 INFLUENZA VACCINE [facility] 03:44:26 [code = INFLUENZA VACCINE] Future Scheduled Test 2021-12-12 Hepatitis C screening [facility] 09:07:24 (procedure) [code = 743971657] Future Scheduled Test 2021-12-12 COLONOSCOPY SCREENING [facility] 09:07:24 [code = COLONOSCOPY SCREENING] Future Scheduled Test 2021-12-12 SHINGLES VACCINES [facility] 09:07:24 (#1) [code = SHINGLES VACCINES (#1)] Future Scheduled Test 2021-12-12 BREAST CANCER [facility] 09:07:24 SCREENING [code = BREAST CANCER SCREENING] Future Scheduled Test 2021-12-12 INFLUENZA VACCINE [facility] 09:07:24 [code = INFLUENZA VACCINE] Future Scheduled Test 2021-12-12 COVID-19 VACCINE (3 - [facility] 09:07:24 Booster for Moderna series) [code = COVID-19 VACCINE (3 - Booster for Moderna series)] Future Scheduled Test 2021-12-12 Screening for [facility] 09:07:24 malignant neoplasm of cervix (procedure) [code = 787477853] Future Scheduled Test 2021-12-04 Hepatitis C screening [facility] 08:56:23 (procedure) [code = 185804923] Future Scheduled Test 2021-12-04 COLONOSCOPY SCREENING [facility] 08:56:23 [code = COLONOSCOPY SCREENING] Future Scheduled Test 2021-12-04 SHINGLES VACCINES [facility] 08:56:23 (#1) [code = SHINGLES VACCINES (#1)] Future Scheduled Test 2021-12-04 BREAST CANCER [facility] 08:56:23 SCREENING [code = BREAST CANCER SCREENING] Future Scheduled Test 2021-12-04 INFLUENZA VACCINE [facility] 08:56:23 [code = INFLUENZA VACCINE] Future Scheduled Test 2021-12-04 COVID-19 [facility]INE [facility] Booster for Moderna series) [code = COVID-19 VACCINE (3 - Booster for Moderna series)] Future Scheduled Test 2021-12-04 Screening for [facility] 08:56:23 malignant neoplasm of cervix (procedure) [code = 616172135] Instructions [facility] Encounters Start End Encounter Admission Attending Care Care Encounter Source Date/Time Date/Time Type Type Clinicians Facility Department ID 2022-07-04 [id number] 07:30:00 Felix [id number] [facility] 2021-11-16 Outpatient FRANCOIS [facility] [id number] [place] 15:45:02 [facility] 2023-09-10 2023-09-10 Office Anselmo Khan, 1.2.840.1 [id number] 21 [id number] Methodi 08:30:00 10:02:39 Visit Carlos 03928.1.1 Pam [facility] 3.430.2.7 Hospit a .3.088370 l .8 2023-09-10 2023-09-10 Outpatient ANSELMO KHAN [facility] [id number] [place] 00:00:00 00:00:00 CARLOS [address] 2023-09-08 2023-09-08 Telephone Ree, Oern 1.2.840.1 [id number] 2 [id number] Methodi 00:00:00 00:00:[address] 3.430.2.7 Hospit a .3.961543 l .8 2023-09-04 2023-09-04 Orders Doctor BENY 1.2.840.114 [id number] Univers 00:00:00 00:00:00 Only Unassigned, TERESA 350.1.13.10 ity of [place] [facility] 4.2.7.2.686 Jairo as [phone] [place] [address] [place] 2023-08-04 2023-08-04 Telephone Natalio, 1.2.840.1 [id number] 2100 [id number] Methodi 00:00:00 00:00:[address] Daniela 3.430.2.7 Hospit a .3.669231 l .8 2023-07-28 2023-07-28 Outpatient GC_GCBZW_Ka PRIV PRIV 164 [id number] [facility] 00:00:00 00:00:00 diyala_S [id number] Medic al 2023-07-28 2023-07-28 Outpatient GC_GCBZW_Ka PRIV PRIV 164 [id number] [facility] 00:00:00 00:00:00 diyala_S [id number] Medic al 2023-07-28 2023-07-28 Outpatient GC_GCBZW_Ka PRIV PRIV 164 [id number] [facility] 00:00:00 00:00:00 diyala_S [id number] Medic al 2023-07-28 2023-07-28 Outpatient GC_GCBZW_Ka PRIV PRIV 164 [id number] [facility] 00:00:00 00:00:00 diyala_S [id number] Medic al 2023-07-23 2023-07-23 Hospital Ree, Oren 1.2.840.1 [id number] 21 [id number] Methodi 06:13:00 10:17:[address] 3.430.2.7 Hospit a .3.881394 l .8 2023-07-23 2023-07-23 Surgery Lador, Oren 1.2.840.1 [id number] 471 [id number] Methodi 07:50:00 08:41:[address] 3.430.2.7 Hospit a .3.707628 l .8 2023-07-23 2023-07-23 Outpatient LADOR, OREN [facility] 021 2100 [id number] [place] 00:00:00 00:00:[address] 2023-07-17 2023-07-17 Orders Lance, 1.2.840.1 [id number] 1153 Methodi 00:00:00 00:00:00 Only Paco 73281.1.[address] Daniela 3.430.2.7 Hospit a .3.834400 l .8 2023-07-17 2023-07-17 Refill El Erin, 1.2.840.1 [id number] 21 [id number] Methodi 00:00:00 00:00:[address] Deon 3.430.2.7 Hospit a .3.214415 l .8 2023-07-16 2023-07-16 Telephone Lance, 1.2.840.1 [id number] 2100 [id number] Methodi 00:00:00 00:00:[address] Daniela 3.430.2.7 Hospit a .3.770154 l .8 2023-07-01 2023-07-01 Outpatient GC_GCBZW_Ka PRIV PRIV 164 04423-9 [facility] 00:00:00 00:00:00 diyala_S [id number] Medic al 2023-07-01 2023-07-01 Outpatient GC_GCBZW_Ka PRIV PRIV 164 [id number] [facility] 00:00:00 00:00:00 diyala_S [id number] Medic al 2023-06-30 2023-06-30 Orders Lance, 1.2.840.1 [id number] 3306 Methodi 00:00:00 00:00:00 Only Paco 26820.1.[address] Daniela 3.430.2.7 Hospit a .3.910899 l .8 2023-06-27 2023-06-27 Office Steve Lam VConrad 1.2.840.1 [id number] Methodi 11:30:00 17:24:39 Visit Ree Oren 79546.1.1 [address] t 3.430.2.7 Hospit a .3.351851 l .8 2023-06-27 2023-06-27 Outpatient ANABELLA [facility] 823 [id number] [place] 00:00:00 00:00:00 STEVE Olsen [address] 2023-06-26 2023-06-26 Outpatient GC_GCBZW_Ka PRIV PRIV 164 [id number] [facility] 00:00:00 00:00:00 diyala_S [id number] Medic al 2023-06-18 2023-06-18 Outpatient GC_GCBZW_Ka PRIV PRIV 164 [id number] [facility] 00:00:00 00:00:00 diyala_S [id number] Medic al 2023-06-16 2023-06-16 Telephone Krish, 1.2.840.1 [id number] 2100 974107 Methodi 00:00:00 00:00:[address] 3.430.2.7 Hospit a .3.201531 l .8 2023-06-16 2023-06-16 Telephone Krish, 1.2.840.1 [id number] 2100 [id number] Methodi 00:00:00 00:00:[address] 3.430.2.7 Hospit a .3.149286 l .8 2023-06-13 2023-06-13 Telephone Anselmo Khan, 1.2.840.1 [id number] Methodi 00:00:00 00:00:[address] Deon 3.430.2.7 Hospit a .3.792901 l .8 2023-06-10 2023-06-10 Refnga Serna, 1.2.840.1 [id number] 78189 90993 Methodi 00:00:00 00:00:[address] 3.430.2.7 Hospit a .3.217439 l .8 2023 2023 Office Anabella 1.2.840.1 [id number] 21 [id number] Methodi 13:00:00 14:20:01 Visit o Steve 42327.1.[address] V. 3.430.2.7 Hospit a .3.848085 l .8 2023 2023 [facility] [id number] [place] 00:00:00 00:00:00 OSTEVE [address] 2023 2023 Telephone Ryan 1.2.840.1 [id number] Methodi 00:00:00 00:00:00 , Mary 96540.1.[address] 3.430.2.7 Hospit a .3.452666 l .8 2023-06-03 2023-06-03 Telephone Pauly, 1.2.840.1 [id number] 662 [id number] Methodi 00:00:00 00:00:[address] 3.430.2.7 Hospit a .3.865448 l .8 2023-06-03 2023-06-03 Telephone Ryan 1.2.840.1 [id number] Methodi 00:00:00 00:00:00 , Mary 50785.1.[address] 3.430.2.7 Hospit a .3.045676 l .8 2023-06-02 2023-06-02 [facility] Rell Trevino 1.2.840.1 [id number] 2 [id number] Methodi 12:53:54 23:59:00 Encounter Jaimie 27225.1.[address] 3.430.2.7 Hospit a .3.172185 l .8 2023-06-02 2023-06-02 Outpatient RELL TREVINO [facility] 807 [id number] [place] 00:00:00 00:00:[address] 2023-05-27 2023-05-27 Telephone Krish, 1.2.840.1 [id number] 2100 [id number] Methodi 00:00:00 00:00:[address] 3.430.2.7 Hospit a .3.143628 l .8 2023-05-21 2023-05-21 Telephone Valderraban 1.2.840.1 [id number] Methodi 00:00:00 00:00:[address] V[address] 3.430.2.7 Hospit a .3.996597 l .8 2023-05-19 2023-05-19 [facility] Lopezalbert Rell 1.2.840.1 [id number] Methodi 00:00:00 00:00:00 Orders Jaimie 61960.1.[address] 3.430.2.7 Hospit a .3.304196 l .8 2023-04-25 2023-04-25 Telephone Krish, 1.2.840.1 [id number] 2100 [id number] Methodi 00:00:00 00:00:[address] 3.430.2.7 Hospit a .3.111485 l .8 2023-04-22 2023-04-22 Telephone Krish, 1.2.840.1 [id number] 2100 [id number] Methodi 00:00:00 00:00:[address] 3.430.2.7 Hospit a .3.808539 l .8 2023-04-17 2023-04-17 Telephone Valderraban 1.2.840.1 [id number] Methodi 00:00:00 00:00:[address] V[address] 3.430.2.7 Hospit a .3.931987 l .8 2023-04-08 2023-04-08 Outpatient FOG_Braly_H AOSM AOSM 567 4941-20 [place] 00:00:00 00:00:00 Sharath 324940 Orth ope dic Sports Medicin e 2023-04-08 2023-04-08 Telephone Valderraban 1.2.840.1 [id number] Methodi 00:00:00 00:00:00 o, Steve 04151.1.[address] V. 3.430.2.7 Hospit a .3.306594 l .8 2023-04-03 2023-04-03 Telephone Valderraban 1.2.840.1 [id number] Methodi 00:00:00 00:00:00 o, Steve 93782.1.[address] V. 3.430.2.7 Hospit a .3.123184 l .8 2023-04-01 2023-04-01 Telephone Valderraban 1.2.840.1 [id number] Methodi 00:00:00 00:00:00 o, Steve 80601.1.[address] V. 3.430.2.7 Hospit a .3.423482 l .8 2023-03-17 2023-03-17 Telephone Valderraban 1.2.840.1 [id number] Methodi 00:00:00 00:00:00 o, Steve 32429.1.[address] V. 3.430.2.7 Hospit a .3.022742 l .8 2023-03-13 2023-03-13 Telephone Valderraban 1.2.840.1 [id number] Methodi 00:00:00 00:00:00 o, Steve 63665.1.[address] V. 3.430.2.7 Hospit a .3.010848 l .8 2023-03-10 2023-03-11 Office Carlos Toure 1.2.840.1 [id number] Methodi 14:00:00 08:03:44 Visit Steve Lam.1.[address] 3.430.2.7 Hospit a .3.846564 l .8 2023-03-11 2023-03-11 Telephone Walker, 1.2.840.1 [id number] 2099 [id number] Methodi 00:00:00 00:00:[address] 3.430.2.7 Hospit a .3.747372 l .8 2023-03-10 2023-03-11 Outpatient [facility] 150 [id number] [place] 00:00:00 00:00:00 CARLOS [address] 2023-03-10 2023-03-10 Orders Lance, 1.2.840.1 [id number] 739259 2424 Methodi 00:00:00 00:00:00 Only Paco 16834.1.[address] Daniela 3.430.2.7 Hospit a .3.587067 l .8 2023-03-10 2023-03-10 Travel 1.2.840.1 1.2.877.237 7405 513572 Methodi 00:00:00 00:00:[address] 3.430.2.7 0.2.7.3.698 Ho spita .3.980481 084.8 l .8 2023-02-26 2023-02-26 Travel 1.2.840.1 1.2.017.420 6374 664241 Methodi 00:00:00 00:00:[address] 3.430.2.7 0.2.7.3.698 Ho spita .3.515471 084.8 l .8 2023-02-24 2023-02-24 Outpatient [facility] 896 [id number] [place] 00:00:00 00:00:00 CARLOS [address] 2023-02-24 2023-02-24 Travel 1.2.840.1 1.2.650.042 0388 274675 Methodi 00:00:00 00:00:[address] 3.430.2.7 0.2.7.3.698 Ho spita .3.648943 084.8 l .8 2023-02-20 2023-02-20 Telephone Ryan 1.2.840.1 [id number] Methodi 00:00:00 00:00:00 , Mary 03005.1.[address] 3.430.2.7 Hospit a .3.266259 l .8 2023-02-20 2023-02-20 Orders Ryan 1.2.840.1 [id number] 21 [id number] Methodi 00:00:00 00:00:00 Only , Mary 64228.1.[address] 3.430.2.7 Hospit a .3.633045 l .8 2023-02-20 2023-02-20 Telephone [place], 1.2.840.1 [id number] Methodi 00:00:00 00:00:[address] Deon 3.430.2.7 Hospit a .3.036986 l .8 2023-02-17 2023-02-17 Travel 1.2.840.1 1.2.132.848 0193 863149 Methodi 00:00:00 00:00:[address] 3.430.2.7 0.2.7.3.698 Ho spita .3.287721 084.8 l .8 2023-01-28 2023-01-28 Clinical [place], 1.2.840.1 [id number] 2 [id number] Methodi 12:30:00 12:45:00 Support Kinan 87996.1.[address] Deon 3.430.2.7 Hospit a .3.340930 l .8 2023-01-28 2023-01-28 Clinical [place], 1.2.840.1 [id number] 2 [id number] Methodi 12:30:00 12:45:00 Support Kinan 57539.1.[address] Deon 3.430.2.7 Hospit a .3.302159 l .8 2023-01-28 2023-01-28 Office Natelson, 1.2.840.1 [id number] 2099 481073 Methodi 11:30:00 12:00:00 Visit Deuce Jernigan 85674.1.[address] 3.430.2.7 Hospit a .3.749145 l .8 2023-01-28 2023-01-28 Office Natelson, 1.2.840.1 [id number] 2099581 Methodi 11:30:00 12:00:00 Visit Deuce Frost. 82086.1.[address] 3.430.2.7 Hospit a .3.533596 l .8 2023-01-28 2023-01-28 Lab Natelson, 1.2.840.1 [id number] 2099 546271 Methodi 11:30:00 11:35:[address]uce [address]223.1.[address] 3.430.2.7 Hospit a .3.000190 l .8 2023-01-28 2023-01-28 Lab Natelson, 1.2.840.1 789351960 2099461 Methodi 11:30:00 11:35:[address] 3.430.2.7 Hospit a .3.300945 l .8 2023-01-28 2023-01-28 Travel 1.2.840.1 1.2.398.385 4512 491310 Methodi 00:00:00 00:00:[address] 3.430.2.7 0.2.7.3.698 Ho spita .3.596318 084.8 l .8 2023-01-28 2023-01-28 Travel 1.2.840.1 1.2.334.427 8153 749126 Methodi 00:00:00 00:00:[address] 3.430.2.7 0.2.7.3.698 Ho spita .3.561424 084.8 l .8 2023-01-27 2023-01-27 Orders Allen, 1.2.840.1 [id number] 788 [id number] Methodi 00:00:00 00:00:00 Only Lloly 68647.1.[address] 3.430.2.7 Hospit a .3.954009 l .8 2023-01-27 2023-01-27 Telephone Ryan 1.2.840.1 [id number] Methodi 00:00:00 00:00:00 , Mary 33445.1.[address] 3.430.2.7 Hospit a .3.981655 l .8 2023-01-27 2023-01-27 Orders Allen, 1.2.840.1 [id number] 548 [id number] Methodi 00:00:00 00:00:00 Only Lolly 54980.1.[address] 3.430.2.7 Hospit a .3.678318 l .8 2023-01-27 2023-01-27 Telephone Ryan 1.2.840.1 [id number] Methodi 00:00:00 00:00:00 , Mary 48298.1.[address] 3.430.2.7 Hospit a .3.299161 l .8 2023-01-24 2023-01-[address] [facility], 1.2.840.1 [id number] Methodi 00:00:00 00:00:[address] Deon 3.430.2.7 Hospit a .3.553946 l .8 2023-01-24 2023-01-24 Telephone [facility], 1.2.840.1 [id number] Methodi 00:00:00 00:00:[address] Edon 3.430.2.7 Hospit a .3.299698 l .8 2023-01-14 2023-01-14 Travel 1.2.840.1 1.2.689.734 3779 968600 Methodi 00:00:00 00:00:[address] 3.430.2.7 0.2.7.3.698 Ho spita .3.755643 084.8 l .8 2023-01-14 2023-01-14 Travel 1.2.840.1 1.2.205.732 1383 962870 Methodi 00:00:00 00:00:[address] 3.430.2.7 0.2.7.3.698 Ho spita .3.365973 084.8 l .8 2022-12-18 2022-12-18 [facility] 1.2.840.1 [id number] 2 [id number] Methodi 11:25:30 23:59:00 Encounter Jaimie 48397.1.[address] 3.430.2.7 Hospit a .3.784916 l .8 2022-12-18 2022-12-18 [facility] 1.2.840.1 [id number] 2 [id number] Methodi 11:25:30 23:59:00 Encounter Jaimie 57060.1.[address] 3.430.2.7 Hospit a .3.219245 l .8 2022-12-18 2022-12-18 Travel 1.2.840.1 1.2.227.870 5566 340148 Methodi 00:00:00 00:00:[address] 3.430.2.7 0.2.7.3.698 Ho spita .3.647940 084.8 l .8 2022-12-18 2022-12-18 Travel 1.2.840.1 1.2.857.401 7392 655278 Methodi 00:00:00 00:00:[address] 3.430.2.7 0.2.7.3.698 Ho spita .3.715062 084.8 l .8 2022-11-29 2022-11-29 [facility] 1.2.840.1 [id number] 2 [id number] Methodi 13:00:00 23:59:00 Encounter Jaimie [address]197.1.[address] 3.430.2.7 Hospit a .3.120483 l .8 2022-11-29 2022-11-29 [facility] Rell Trevino 1.2.840.1 [id number] 2 [id number] Methodi 13:00:00 23:59:00 Encounter Jaimie 37858.1.[address] 3.430.2.7 Hospit a .3.066303 l .8 2022-11-28 2022-11-28 Travel 1.2.840.1 1.2.090.204 1368 919918 Methodi 00:00:00 00:00:[address] 3.430.2.7 0.2.7.3.698 Ho spita .3.558642 084.8 l .8 2022-11-28 2022-11-28 Travel 1.2.840.1 1.2.573.856 9383 650697 Methodi 00:00:00 00:00:[address] 3.430.2.7 0.2.7.3.698 Ho spita .3.793994 084.8 l .8 2022-11-21 2022-11-21 Transcribe LopezRell price 1.2.840.1 291402250 [id number] Methodi 00:00:00 00:00:00 Orders Jaimie 74778.1.[address] 3.430.2.7 Hospit a .3.635103 l .8 2022-11-21 2022-11-21 Transcribe LopezRell price 1.2.840.1 604978417 [id number] Methodi 00:00:00 00:00:00 Orders Jaimie 80103.1.[address] 3.430.2.7 Hospit a .3.497434 l .8 2022-11-05 2022-11-05 Telephone Connor 1.2.840.1 [id number] Methodi 00:00:00 00:00:00 , Mary 00733.1.[address] 3.430.2.7 Hospit a .3.506429 l .8 2022-11-05 2022-11-05 Telephone Ryan 1.2.840.1 [id number] Methodi 00:00:00 00:00:00 , Mary 36716.1.[address] 3.430.2.7 Hospit a .3.044701 l .8 2022-10-22 2022-10-22 Outpatient FOG_Braly_H AOSM AOSM 567 4941-20 Nathalie 00:00:00 00:00:00 Sharath 522194 Orth ope dic Sports Medicin e 2022-10-22 2022-10-22 Felix Rojas AOS[facility] [place] - Ortho [id number] 3 Nathalie 00:00:00 00:00:00 Cathy Bliss MD: [id number] FOG_Ofc dic [facility], [place] [address] , Ph. [phone] 2022-10-15 2022-10-15 Outpatient FOG_Braly_H AOSM AOSM 567 4941-20 Nathalie 00:00:00 00:00:00 Sharath 334117 Orth ope dic Sports Medicin e 2022-10-14 2022-10-14 Telephone Prashant, 1.2.840.1 [id number] 2099 144014 Methodi 00:00:00 00:00:[address] 3.430.2.7 Hospit a .3.994391 l .8 2022-10-14 2022-10-14 Telephone Prashant, 1.2.840.1 [id number] 2099 015344 Methodi 00:00:00 00:00:[address] 3.430.2.7 Hospit a .3.795937 l .8 2022-10-09 2022-10-09 Outpatient FOG_Braly_H AOSM AOSM 567 4941-20 Nathalie 00:00:00 00:00:00 Sharath 551891 Orth ope dic Sports Medicin e 2022-10-09 2022-10-09 Yahir AOSM [place] - Ortho 20211110 Nathalie 00:00:00 00:00:00 Cathy Hendrix MD: [id number] FOG_Ofc dic [facility] [place], [place] [address] , Ph. [phone] 2022-10-07 2022-10-07 Orders Doctor BENY 1.2.840.114 686127 05 Univers 00:00:00 00:00:00 Only Unassigned, TERESA 350.1.13.10 ity of [place] [facility] 4.2.7.2.686 Jairo as [phone] [facility] [address] 2022-10-01 2022-10-01 Transition KEN Padilla 1.2.840.114 985 16795 Univers 00:00:00 00:00:00 of Care Raphael Santosh LEYVA 350.1.13.10 ity of [place] [phone] [facility] 403 Branch 2022-09-28 2022-09-29 Inpatient U NAE [facility] [id number] Univers 10:56:00 15:19:00 MIKA ity of [facility] 2022-09-28 2022-09-29 Hospital JAYSHREE Soni 1.2.840.114 [id number] Univers 10:56:00 15:19:00 Encounter Mika TERESA 350.1.13.10 ity of [facility] 4.2.7.2.686 Jairo as [phone] [facility] 099 Branch 2022-09-20 2022-09-20 Telephone Ryan 1.2.840.1 [id number] Methodi 00:00:00 00:00:00 , Mary 12750.1.[address] 3.430.2.7 Hospit a .3.338779 l .8 2022-09-18 2022-09-18 Telephone Ryan 1.2.840.1 [id number] Methodi 00:00:00 00:00:00 , Mary 35535.1.[address] 3.430.2.7 Hospit a .3.197130 l .8 2022-09-17 2022-09-17 Office Jessica, 1.2.840.1 [id number] 2099 [id number] Methodi 09:30:00 10:30:00 Visit Deuce FrostConrad 64110.1.[address] 3.430.2.7 Hospit a .3.491414 l .8 2022-09-17 2022-09-17 Lab [facility], 1.2.840.1 [id number] 2099 [id number] Methodi 09:30:00 09:35:[address]24.1.[address] 3.430.2.7 Hospit a .3.036171 l .8 2022-09-17 2022-09-17 Orders Alejandro, 1.2.840.1 [id number] 815 [id number] Methodi 00:00:00 00:00:00 Only Lolly 97771.1.[address] 3.430.2.7 Hospit a .3.314191 l .8 2022-09-17 2022-09-17 Travel 1.2.840.1 1.2.922.925 9750 [id number] Methodi 00:00:00 00:00:[address] 3.430.2.7 0.2.7.3.698 spita .3.364275 084.8 l .8 2022-09-13 2022-09-13 [facility] Alejandro, 1.2.840.1 [id number] 343 [id number] Methodi 00:00:00 00:00:00 Only Lolly 20784.1.[address] 3.430.2.7 Hospit a .3.422524 l .8 2022-09-04 2022-09-04 Office Thaddeus, 1.2.840.1 [id number] Methodi 08:30:00 09:03:37 Visit Raúlmarcos 41807.1.[address] Deon 3.430.2.7 Hospit a .3.944815 l .8 2022-09-04 2022-09-04 Travel 1.2.840.1 1.2.495.063 4416 [id number] Methodi 00:00:00 00:00:[address] 3.430.2.7 0.2.7.3.698 Ho spita .3.754104 084.8 l .8 2022-09-03 2022-09-03 Outpatient FOG_Braly_H AOSM AOSM 567 4941-20 Nathalie 00:00:00 00:00:00 Sharath 333880 Orth ope dic [facility] 2022-09-03 2022-09-03 [facility] [place] - Ortho [id number] Nathalie 00:00:00 00:00:00 EDUARD [facility] - Orthope MD: [id number] [facility] [place] [address] , Ph. [phone] 2022-09-02 2022-09-02 Outpatient FOG_Braly_H AOSM AOSM 567 4941-20 Nathalie 00:00:00 00:00:00 Sharath 999222 Orth ope dic Sports Medicin e 2022-09-01 2022-09-01 Outpatient FOG_Braly_H AOSM AOSM 567 4941-20 Nathalie 00:00:00 00:00:00 Sharath 120883 Orth ope dic Sports Medicin e 2022-08-27 2022-08-27 Outpatient FOG_Braly_H AOSM AOSM 567 4941-20 Nathalie 00:00:00 00:00:00 Sharath 983422 Orth ope dic Sports Medicin e 2022-08-27 2022-08-27 Felix Rojas AO [place] - Ortho [id number] Nathalie 00:00:00 00:00:00 Cathy Bliss MD: [id number] FOG_Ofc dic [facility] [address] , Ph. [phone] 2022-08-27 2022-08-27 Oncology Peters, 1.2.840.1 [id number] 2099 037209 Methodi 00:00:00 00:00:00 [facility] Chase 51425.1.1 986 s t ip 3.430.2.7 Hospit a .3.947905 l .8 2022-08-26 2022-08-26 Telephone Remi Garcia 1.2.840.1 [id number] Methodi 00:00:00 00:00:[address] 3.430.2.7 Hospit a .3.260720 l .8 2022-08-23 2022-08-23 [facility], 1.2.840.1 [id number] 2 [id number] Methodi 09:32:17 23:59:00 Encounter Carlos 14163.1.[address] Deon 3.430.2.7 Hospit a .3.291720 l .8 2022-08-23 2022-08-23 [facility] 965 [id number] [place] 00:00:00 00:00:[address] CARLOS [address] 2022-08-23 2022-08-23 Travel 1.2.840.1 1.2.856.756 8610 830029 Methodi 00:00:00 00:00:[address] 3.430.2.7 0.2.7.3.698 spita .3.226048 084.8 l .8 2022-08-19 2022-08-20 Emergency [place], 1.2.840.1 [id number] 110 [id number] Methodi 23:02:00 05:10:[address] Peter 3.430.2.7 Hospit a .3.279602 l .8 2022-08-20 2022-08-20 Telephone Alejandro, 1.2.840.1 [id number] 2 [id number] Methodi 00:00:00 00:00:[address] 3.430.2.7 Hospit a .3.728431 l .8 2022-08-20 2022-08-20 Travel 1.2.840.1 1.2.895.121 7550 [id number] Methodi 00:00:00 00:00:[address] 3.430.2.7 0.2.7.3.698 Ho spita .3.349347 084.8 l .8 2022-08-20 2022-08-20 Telephone Ryan 1.2.840.1 [id number] Methodi 00:00:00 00:00:00 , Mary 48691.1.[address] 3.430.2.7 Hospit a .3.423207 l .8 2022-08-20 2022-08-[address] [facility], 1.2.840.1 [id number] Methodi 00:00:00 00:00:[address] Deon 3.430.2.7 Hospit a .3.919991 l .8 2022-08-19 2022-08-19 Orders Ryan 1.2.840.1 [id number] Methodi 00:00:00 00:00:00 Only , Mary 88168.1.[address] 3.430.2.7 Hospit a .3.135295 l .8 2022-08-14 2022-08-[address] [facility], 1.2.840.1 [id number] 21 [id number] Methodi 08:30:00 09:00:00 Visit Carlos 80616.1.[address] Deon 3.430.2.7 Hospit a .3.744266 l .8 2022-08-14 2022-08-14 Telephone Ryan 1.2.840.1 [id number] Methodi 00:00:00 00:00:00 , Mary [address]20.1.[address] 3.430.2.7 Hospit a .3.651734 l .8 2022-08-14 2022-08-14 Orders Ryan 1.2.840.1 [id number] 21 [id number] Methodi 00:00:00 00:00:00 Only , Mary 14743.1.[address] 3.430.2.7 Hospit a .3.136323 l .8 2022-08-14 2022-08-14 Travel 1.2.840.1 1.2.093.375 6139 663809 Methodi 00:00:00 00:00:[address] 3.430.2.7 0.2.7.3.698 Ho spita .3.661868 084.8 l .8 2022-08-12 2022-08-12 Travel 1.2.840.1 1.2.953.660 7759 166866 Methodi 00:00:00 00:00:[address] 3.430.2.7 0.2.7.3.698 Ho spita .3.449544 084.8 l .8 2022-08-11 2022-08-11 Outpatient FOG_Braly_H AOSM AOSM 567 4941-20 Nathalie 00:00:00 00:00:00 Sharath 109468 [facility] 2022-08-01 2022-08-01 Travel 1.2.840.1 1.2.944.261 2216 616032 Methodi 00:00:00 00:00:[address] 3.430.2.7 0.2.7.3.698 Ho spita .3.638251 084.8 l .8 2022-07-19 2022-07-19 Outpatient FOG_Braly_H AOSM AOSM 567 4941-20 Nathalie 00:00:00 00:00:00 Sharath 193657 [facility] 2022-07-19 2022-07-19 Outpatient [place], AOSM AOSM 3bbcdc c6-3 00:00:00 00:00:00 Felix Rojas 04a-11ed-b [id number] 2022-07-19 2022-07-19 Felix Rojas AOSM [place] - Ortho [id number] Nathalie 00:00:00 00:00:00 Ruthy BathChalo rueda MD: [id number] FOG_Ofc dic [facility] Sp[facility] [place] [address] , Ph. [phone] 2022-07-16 2022-07-16 Outpatient FOG_Braly_H AOSM AOSM 567 4941-20 Nathalie 00:00:00 00:00:00 Sharath 489344 Orth ope dic [facility] Medicin e 2022-07-08 2022-07-08 Outpatient FOG_Braly_H AOSM AOSM 567 4941-20 Nathalie 00:00:00 00:00:00 Sharath 665960 Orth ope dic Sports Medicin e 2022-07-01 2022-07-01 Outpatient FOG_Braly_H AOSM AOSM 567 4941-20 Nathalie 00:00:00 00:00:00 Sharath 712388 Orth ope dic Sports Medicin e 2022-06-14 2022-06-14 Outpatient FOG_Braly_H AOSM AOSM 567 4941-20 Nathalie 00:00:00 00:00:00 Sharath 121775 Orth ope dic Sports Medicin e 2022-06-11 2022-06-11 Outpatient FOG_Braly_H AOSM AOSM 567 4941-20 Nathalie 00:00:00 00:00:00 Sharath 599135 Orth ope dic Sports Medicin e 2022-06-10 2022-06-10 Outpatient FOG_Braly_H AOSM AOSM 567 4941-20 Nath[place]ie 00:00:00 00:00:00 Sharath 117288 Orth ope dic Sports Medicin e 2022-06-04 2022-06-04 Outpatient Ruthy [facility] [id number] [facility] 16:17:00 16:17:00 Felix Lang [facility] 2022-06-04 2022-06-04 Outpatient FOG_Braly_H AOSM AOSM 567 4941-20 Nathalie 03:42:00 03:42:00 Sharath 573769 Orth ope dic [facility] Medicin e 2022-06-04 2022-06-04 Outpatient Zhou AOSM AOSM [id number] [id number] 00:00:00 00:00:00 [facility]-b [id number] 2022-06-04 2022-06-04 [place] - Ortho [id number] Nathalie 00:00:00 00:00:00 EDUARD Epperson [facility] Orthope MD: [id number] FOG_Ofc dic [address] [address] , Ph. [phone] 2022-05-29 2022-05-29 Outpatient FOG_Braly_H AOSM AOSM 567 4941-20 Nathalie 06:47:00 06:47:00 Sharath 459184 Orth ope dic Sports Medicin e 2022-05-29 2022-05-29 Outpatient Ruthy, AOMONICA AOSM 2c6fcc 38-0 00:00:00 00:00:00 Felix Rojas 881-11ed-b [id number] 2022-05-29 2022-05-29 Felix Rojas AOSM [place] - Orth[place] [id number] Nath[place]ie 00:00:00 00:00:00 Cathy Bliss MD: 7401 FOG_Ofc dic [facility] [address] , Ph. [phone] 2022-05-28 2022-05-28 Outpatient FOG_Braly_H AOSM AOSM 567 4941-20 Nathalie 05:09:00 05:09:00 Sharath 728585 Orth ope dic Sports Medicin e 2022-05-24 2022-05-24 Outpatient FOG_Braly_H AOSM AOSM 567 4941-20 Nath[place]ie 03:57:00 03:57:00 Sharath 221294 Orth ope dic Sports Medicin e 2022-05-22 2022-05-22 Outpatient FOG_Mathews AOSM AOSM 567 4941-20 Nathalie 05:14:00 05:14:00 _Raji 052678 Orth ope dic Sports Medicin e 2022-05-22 2022-05-22 Outpatient TRISTIAN Bliss sp1798 12-0 00:00:00 00:00:00 Felix Rojas 875-11ed-b [id number] 2022-05-22 2022-05-22 Felix Rojas AOSM [place] - [place] [id number] Nathalie 00:00:00 00:00:00 Cathy Bliss MD: 7401 FOG[facility]Ofc dic [facility] [place] [address] , Ph. [phone] 2022-05-20 2022-05-20 Outpatient FOG_Mathews AOSM AOSM 567 4941-20 Nathalie 01:59:00 01:59:00 _Raji 765971 Orth ope dic Sports Medicin e 2022-05-10 2022-05-10 Outpatient FOG_Mathews AOSM AOSM 567 4941-20 Nath[place]ie 04:07:00 04:07:00 _Raji 265973 Orth ope dic Sports Medicin e 2022-04-30 2022-04-30 Emergency [place], 1.2.840.1 [id number] [id number] Methodi 15:49:00 19:36:[address] Lydia 3.430.2.7 Hospit a .3.858504 l .8 2022-04-30 2022-04-30 Travel 1.2.840.1 1.2.089.910 6087 588950 Methodi 00:00:00 00:00:[address] 3.430.2.7 0.2.7.3.698 Ho spita .3.585062 084.8 l .8 2021-11-20 2021-11-20 Outpatient YANIRA Epperson LABO [id number] [facility] 18:40:00 18:40:[address] 2021-11-20 2021-11-20 Outpatient LIA Abreu RADI [id number] [facility] 13:14:00 13:14:[address] Orthope dic Hospita l 2021-08-21 2021-08-21 Telephone Akiko Luong FERNANDO 6410 1.2.840. 114 [id number] [place] 00:00:00 00:00:[address] 350.1.13.58 [facility] 9.2.7.2.686 [id number] 7 2021-08-06 2021-08-16 [facility] Anastasiya, 1.2.840.1 [id number] 2100 818361 Methodi 20:50:00 15:08:00 Encounter Mayco Keenan 09090.1.[address] 3.430.2.7 Hospit a .3.093175 l .8 2021-08-13 2021-08-13 Surgery Zhou 1.2.840.1 [id number] 1670 Methodi 07:15:00 12:35:00 [place] Elvin 15634.1.[address] 3.430.2.7 Hospit a .3.226247 l .8 2021-08-13 2021-08-13 Anesthesia Deny Oneal 1.2.840. 1 [id number] Methodi 07:20:00 12:14:00 Event Unique Burks 13958.1.[address] 3.430.2.7 Hospit a .3.072093 l .8 2021-08-04 2021-08-06 Inpatient NADINE ZhengJENNIE ADMI [id number] [facility] 14:51:00 20:45:00 Yahir 52 [place] [facility] 2021-08-04 2021-08-04 Outpatient SimeonZOË SIST [id number] [facility] 22:10:00 22:10:00 Yahir 80 [facility] 2021-07-09 2021-07-13 Inpatient ANSELMO NADINE HendrixTO SURG [id number] [facility] 09:31:00 19:36:00 Yahir 66 [place] [facility] 2021-07-05 2021-07-05 Outpatient YANIRA Zheng LABO [id number] [facility] 18:29:00 18:29:00 Yahir 89 [facility] 2021-06-27 2021-06-27 Telephone RomanaCarroll 1.2.840.1 [id number] 21 [id number] Methodi 00:00:00 00:00:[address] 3.430.2.7 Hospit a .3.857659 l .8 2021-06-22 2021-06-22 Outpatient YANIRA Zheng LABRaúl [id number] [facility] 18:09:00 18:09:00 Yahir 07 [facility] 2021-06-22 2021-06-22 Outpatient LIA Zheng RADI [id number] [facility] 10:16:00 10:16:00 Yahir 84 [place] [facility] 2021-05-21 2021-05-22 Inpatient LIA Zheng ADMI [id number] [facility] 10:04:00 13:24:00 Yahir 68 [place] [facility] 2021-05-17 2021-05-17 Telephone Edwige 1.2.840.1 [id number] 2100 [id number] Methodi 00:00:00 00:00:[address] 3.430.2.7 Hospit a .3.773276 l .8 2021-05-15 2021-05-15 Travel 1.2.840.1 1.2.025.868 2269 106156 Methodi 00:00:00 00:00:[address] 3.430.2.7 0.2.7.3.698 Ho spita .3.166753 084.8 l .8 2021-05-15 2021-05-15 Outpatient EDWIGE [facility] [id number] 638 [place] 00:00:00 00:00:00 ROYCE [address] 2021-04-27 2021-04-27 Outpatient NADINE HendrixCL LABO [id number] [facility] 18:17:00 18:17:00 Yahir 38 [facility] 2021-04-24 2021-04-24 Office Edwige 1.2.840.1 [id number] 0172 Methodi 08:55:49 11:43:07 Visit Royce Suazo 32420.1.[address] 3.430.2.7 Hospit a .3.659575 l .8 2021-04-24 2021-04-24 Travel 1.2.840.1 1.2.414.032 3269 983973 Methodi 00:00:00 00:00:[address] 3.430.2.7 0.2.7.3.698 Ho spita .3.829890 084.8 l .8 2021-04-19 2021-04-19 Outpatient NADINE ZhengTO RADI [id number] [facility] 10:32:00 10:32:00 Yahir 54 [place] [facility] 2021-04-03 2021-04-03 Telephone Kristian [facility] 4 1.2.840.114 1 [id number] [place] 00:00:00 00:00:00 Steve 350.1.13.58 He alth 9.2.7.2.686 [id number] 4 2021-04-03 2021-04-03 Telephone FERNANDO Townsend [facility] 4 1.2.840.114 1 [id number] 00:00:00 00:00:00 Steve 350.1.13.58 9.2.7.2.686 [id number] 4 2021-03-30 2021-03-30 Travel 1.2.840.1 1.2.544.089 1959 669723 Methodi 00:00:00 00:00:[address] 3.430.2.7 0.2.7.3.698 Ho spita .3.735063 084.8 l .8 2021-03-17 2021-03-17 Inpatient LIA Zheng HCATO [id number] [facility] 19:18:01 19:18:01 Yahir 28 [place] [facility] 2021-03-13 2021-03-13 Appointmen ADULT, UTP [facility] 743 [address] [place] 13:00:00 13:00:00 t; ADULT, THROMBOSIS Hemophilia Physici THROMBOSIS and ans Thrombophil ia Center - [facility] 2021-03-09 2021-03-09 Outpatient NADINE Hendrix LABO [id number] [facility] 17:53:00 17:53:00 Yahir 92 [facility] 2021-03-09 2021-03-09 [facility] [id number] [facility] 13:36:00 13:36:00 Yahir 09 [facility] 2021-03-06 2021-03-06 Outpatient LIA BlissTO [id number] [facility] 13:56:26 13:56:[address] Orthope dic Hospita 2021-01-26 2021-01-26 [facility], 1.2.840.1 [id number] 040616 7953 Methodi 00:00:00 00:00:00 Only Robert Hernandez.1.1 082 s t 3.430.2.7 Hospit a .3.583106 l .8 2021-01-22 2021-01-22 [facility], 1.2.840.1 [id number] 92985 25549 Methodi 17:08:49 23:59:00 Encounter Robert Kee 65044.1.[address] 3.430.2.7 Hospit a .3.247179 l .8 2021-01-22 2021-01-22 [facility], 1.2.840.1 [id number] 59006 28552 Methodi 17:08:23 23:59:00 Encounter Robert Kee 57842.1.[address] 3.430.2.7 Hospit a .3.620753 l .8 2021-01-22 2021-01-22 Office Mateus, 1.2.840.1 [id number] 203719 5345 Methodi 14:40:52 16:01:45 Visit Marissa Frank 44868.1.1 067 s t 3.430.2.7 Hospit a .3.090643 l .8 2021-01-22 2021-01-22 Travel 1.2.840.1 1.2.426.052 3627 914659 Methodi 00:00:00 00:00:[address] 3.430.2.7 0.2.7.3.698 Ho spita .3.972415 084.8 l .8 2021-01-20 2021-01-20 Emergency Bella, 1.2.840.1 [id number] 2 [id number] Methodi 16:16:00 16:58:[address] 3.430.2.7 Hospit a .3.193470 l .8 2021-01-20 2021-01-20 Travel 1.2.840.1 1.2.982.706 5412 882175 Methodi 00:00:00 00:00:[address] 3.430.2.7 0.2.7.3.698 Ho spita .3.933047 084.8 l .8 2021-01-20 2021-01-20 Documentat Provider, 1.2.840.1 [id number] 2 [id number] Methodi 00:00:00 00:00:00 ion Unknown 73604.1.[address] 3.430.2.7 Hospit a .3.985536 l .8 2021-01-16 2021-01-16 Travel 1.2.840.1 1.2.450.316 5273 648910 Methodi 00:00:00 00:00:[address] 3.430.2.7 0.2.7.3.698 Ho spita .3.743656 084.8 l .8 2020-10-16 2020-10-16 Laboratory Lab, [facility] 1.2.840.114 80 [id number] 16:55:10 17:15:10 Only Fam Pob I Health 350.1.13.10 [place] 4.2.7.2.686 Professio [phone] [place] [address] Office Building [facility] 2020-10-16 2020-10-16 Laboratory Lab, Adc Fam Pob I [facility] 1.2. 840.114 [id number] Univers 16:55:10 17:15:10 Only Max [facility] 350.1.13.10 ity of [place] 4.2.7.2.686 Jairo as Professio [phone] Va dical [address] Office Building [facility] 2020-10-16 2020-10-16 Outpatient R TORI [facility] [id number] Univers 16:40:00 16:40:00 MAX ity [facility] 2020-10-16 2020-10-16 Letter Doctor BENY 1.2.840.114 [id number] 00:00:00 00:00:00 (Out) Unassigned, TERESA 350.1.13.10 [place] [facility] 4.2.7.2.686 [id number] [facility] 2020-10-16 2020-10-16 Letter Doctor BENY 1.2.840.114 [id number] [facility] 00:00:00 00:00:00 (Out) Unassigned, TERESA 350.1.13.10 ity of [place] [facility] 4.2.7.2.686 Jairo as [phone] [address] 2020-09-25 2020-09-25 Appointmen FERNANDO MC[facility] [id number] [place] 09:00:00 09:00:00 t; LUCAS MCKEON M.D. Center - Physici Kristi ZAVALA M.D. 2020-08-03 2020-08-03 Outpatient [facility] [id number] 364 [place] 00:00:00 00:00:00 ROYCE 912 Method i 2020-08-02 2020-08-02 [facility] [id number] 369 [place] 00:00:00 00:00:00 ROYCE 863 Method i 2020-08-01 2020-08-01 [facility] [id number] 364 [place] 00:00:00 00:00:00 ROYCE 442 Method i 2020-08-01 2020-08-01 Outpatient EDWIGE, [facility] [id number] 065 [place] 00:00:00 00:00:00 ROYCE 703 Method i 2020-07-31 2020-07-31 Outpatient EDWIGE, [facility] [id number] 108 [place] 00:00:00 00:00:00 ROYCE 438 Method i 2020-07-25 2020-07-25 Outpatient EDWIGE, [facility] [id number] 596 [place] 00:00:00 00:00:00 ROYCE 149 Method i 2020-06-28 2020-06-28 Outpatient COH COH PDPFEBW YEG COH 00:00:00 00:00:00 [id number]-[id number] 123 2020-06-22 2020-06-22 Outpatient STADNYK, [facility] [id number] 1498 [place] 00:00:00 00:00:00 SIL 628 Meth анна 2020-04-17 2020-04-17 [facility] [id number] [place] 15:40:00 15:40:00 t; Lamont FRAZIER M.D. ans SUBHRATHA, M.D. 2020-04-14 2020-04-14 [facility] Women's [id number] 95 [place] 08:30:00 08:30:00 t; Sonia FRAZIER Ph, M.D. [place] ans SUBHRATHA, M.D. 2019-09-16 2019-09-16 Appointmen JACQUELIN [facility] Urogynecolo 583 [id number] [place] 09:50:00 09:50:00 t; ELIOT ROPER gy Center Son Candelario M.D. 2019-09-15 2019-09-15 Appointmen JACQUELIN [facility] [id number] 3 [place] 11:20:00 11:20:00 t; ELIOT ROPER Phys ici BRANDON, M.D. ans M.D. 2019-08-18 2019-08-18 Appointventura ROPER [facility] Urogynecolo [id number] [place] 15:40:00 15:40:00 t; ELIOT ROPER gy Center Son Candelario M.D. 2019-08-09 2019-08-09 Appointmen MIKE FERNANDO Women[facility] [id number] [place] 10:30:00 10:30:00 LUCAS Betancur M.D. Center - Physici Kristi ZAVALA M.D. Results Test Description Test Time Test Comments Results Result Comments Source ECG 12 lead 2023-09-11 01:21:30 Test Item Value Reference Range Interpretation Comme nts Ventricular rate (test code = 253) 62 Atrial rate (test code = 255) 62 MI interval (test code = 266) 176 QRSD interval (test code = 260) 78 QT interval (test code = 264) 400 QTC interval (test code = 265) 406 P axis 1 (test code = 267) 58 QRS axis 1 (test code = 268) 23 T wave axis (test code = 270) 40 EKG impression (test code = 273) Normal sinus rhythm-Normal ECG-In automated comparison with ECG of 27-JUN-2023 11:31,-No significant change was found- [facility] BLOOD [id number] 12:58:00 Test Item Value Reference Range Interpretation Comments POC PH ARTERIAL (test 7.403 7.35-7.45 N See CR ITICAL RESULTS code = PHAP) Form for documentation. POC PCO2 ARTERIAL 41.9 mmHg 35-45 N (test code = PCO2AP) POC-TCO2 ARTERIAL 27 mmol/L 23-27 N (test code = TCO2AP) POC-PO2 ARTERIAL (test 40 mmHg 80-105 LL code = PO2AP) POC-HCO3 ARTERIAL 26.1 mmol/L 22-26 H (test code = HCO3AP) POC-BASE EXCESS 1 mmol/L -2-3 N ARTERIAL (test code = BEAP) POC-SO2 ARTERIAL (test 75 % 95-98 L code = SO2AP) POC HEMOGLOBIN (test 10.5 g/dL 12-17 L code = HBP) POC HEMATOCRIT (test 31 % 38-51 L code = HCTP) SODIUM POC (test code 140 mmol/L 138-146 N = NAP) POTASSIUM POC (test 3.9 mmol/L 3.5-4.9 N code = KP) GLUCOSE POC (test code 91 mg/dL 70-105 N = GLUP) CALCIUM IONIZED (test 1.22 mmol/L 1.12-1.32 N code = SARITHA) Sputum [id number] 05:33:34 Test Item Value Reference Range Interpretation Comments SPUTUM CULTURE (test Specimen cellular code = 622-1) elements do not represent lower respiratory tract. Specimen rejected for routine bacterial culture. Suggest reorder and recollection. Gram stain (test code Numerous Epithelial = 664-3) cells present [address]2022-10-27 04:17:29 Test Item Value Reference Range Interpretation Comments Ventricular rate (test code = 253) Atrial rate (test code = 255) MI interval (test code = 266) QRSD interval [...] of 19-AUG-2022 23:05,-No significant change was found- [address]2022-10-27 04:17:29 Test Item Value Reference Range Interpretation Comments Ventricular rate (test code = 253) Atrial rate (test code = 255) MI interval (test code = 266) QRSD interval [...] of 19-AUG-2022 23:05,-No significant change was found- [address]2022-10-27 04:17:29 Test Item Value Reference Range Interpretation Comments Ventricular rate (test 79 code = 253) Atrial rate (test code 79 = 255) MI interval (test code 172 = 266) QRSD interval (test 86 code = 260) QT interval (test code 360 = 264) QTC interval (test code 412 = 265) P axis 1 (test code = 73 267) QRS axis 1 (test code = 66 268) T wave axis (test code 51 = 270) EKG impression (test Normal sinus code = 273) rhythm-Normal ECG-In automated comparison with ECG of 19-AUG-2022 23:05,-No significant change was found- [facility] stress [id number] 16:08:55 Test Item Value Reference Range Interpretation Comments Resting HR (test code = 7031294890) Resting BP (test code 111&56 = 7924439556) Peak MET Achieved (test code = 0878058126) Protocol Name (test Lexiscan code = 6436762279) Time in Exercise 00:01:00 Phase (test code = 6076508822) Max Systolic BP (test code = 1344778921) Max Diastolic BP (test code = 0979961514) Max Heart Rate (test code = 8383625044) Max Predicted Heart Rate (test code = 6376176896) Target HR Formula (220 - Age)*100% (test code = 9706342924) Test Indication (test chest pain code = 1426437380) Arrhy During Ex (test code = 7318588150) ECG Interp Before EX (test code = 9222341980) ECG Interp During Ex (test code = 9261054471) Ex Summary Comment (test code = 8308961117) Overall HR Response to Exercise (test code = 0422180907) Overall BP Response To Exercise (test code = 8293226154) Reason for Protocol Complete Termination (test code = 3696949189) Stress Test -Waveform interpreted in Impression (test code report associated with = 8400178474) image study. No interpretation is provided as part of this Stress ECG report.-Electronically Signed By Rasheeda Garcia MD ([id number]), editor greeting card Belgica Pizano ([id number]) on 08/23/2022 11:08:53 AM-Also [facility] stress [id number] 16:08:55 Test Item Value Reference Range Interpretation Comments Resting HR (test code 80 = 8573857646) Resting BP (test code 111&56 = 7573662261) Peak MET Achieved 1 (test code = 1999784005) Protocol Name (test Lexiscan code = 8137882762) Time in Exercise 00:01:00 Phase (test code = 1745665263) Max Systolic BP (test 128 code = 5696340706) Max Diastolic BP 50 (test code = 4118832616) Max Heart Rate (test 102 code = 3035625092) Max Predicted Heart 158 Rate (test code = 8165686662) Target HR Formula (220 - Age)*100% (test code = 7534946367) Test Indication (test chest pain code = 8536863240) Arrhy During Ex (test code = 8637806804) ECG Interp Before EX (test code = 8636305553) ECG Interp During Ex (test code = 4355546231) Ex Summary Comment (test code = 1758583692) Overall HR Response to Exercise (test code = 0644048807) Overall BP Response To Exercise (test code = 6213838567) Reason for Protocol Complete Termination (test code = 6008649812) Stress Test -Waveform interpreted in Impression (test code report associated with = 1616156906) image study. No interpretation is provided as part of this Stress ECG report.-Electronically Signed By Rasheeda Garcia MD ([id number]), editor greeting card [place] Pizano ([id number]) on 08/23/2022 11:08:53 AM-Also [id number] 20:06:00 Test Item Value Reference Range Interpretation [...] calculated (test <100 Desira ble code = 26547-6) range <100 m g/dL for primary prevention; <70 mg/dL for patients with C HD or diabetic patients with > or = 2 CHD risk factors. LDL-C is now calculated using the Krysten calculation, which is a validated novel method providin g better accuracy than the Friedewald equation in the estimation of LDL-C. Guilherme S S et al. KATHLEEN. 2013;310(42): 9096-0094 (http://educati on .Avvenu .com/faq/ZAD477 ) Cholesterol/HDL See_Comment [Automated ratio (test code = message] The 9830-1) system which generated this result transmitted reference range : <5.0 (calc). Th e reference range was not used to interpret this result as normal/abnormal . Non-HDL cholesterol See_Comment H For osvaldo ents with (test code = diabetes plus 1 90847-2) major ASCVD ris k factor, treatin g [...] RAC) Organization Information: Site ID: RGA Name: [facility] Address: [address] [place] [phone] Director: Peter Valencia Lab Interpretation Abnormal (test code = 43521-7) Brennon Myers, [id number] 20:06:00 Test Item Value Reference Range Interpretation Comments T4, free (test code 1.1 ng/dL 0.8-1.8 = 3024-7) MIKAYLA (test code = FASTING:UNKNOWN FASTING: MIKAYLA) UNKNOWN RAC (test code = Performing Organization RAC) Information: Site ID: [facility] Name: [facility] Address: [address] [place] [address] Director: [facility] HospitalThyroid stimulating [id number] 20:06:00 Test Item Value Reference Range Interpretation [...] code = RAC) Organization Information: Site ID: [facility] Name: [facility] Address: [address] [place] [address] Director: [id number] 20:06:00 Test Item Value Reference Range Interpretation Comments T3 (test code = 114 ng/dL 76-181 3053-6) MIKAYAL (test code = FASTING:UNKNOWN FASTING: MIKAYLA) UNKNOWN RAC (test code = Performing Organization RAC) Information: Site ID: [facility] Name: [facility] Address: [address] [place] [id number] Director: [facility] HospitalNT-[id number] 20:06:00 Test Item Value Reference Range Interpretation Comments NT-proBNP 35 pg/mL Female Risk: O ptimal (test code = < 372 pg/[place] [address]-7) = 372 pg/mL For Heart Failure (HF) [...] addition al information, pl ease refer tohttp://educat ion.[facility] st[facility].c om/faq/ DBG509(This austyn k is being provided for informational/e ducatio nalpurposes onl y.) MIKAYLA (test FASTING:UNKNOWN code = MIKAYLA) FASTING: UNKNOWN RAC (test Performing code = RAC) Organization Information: Site ID: EZ Name: [facility], Address: [address] [place] [phone] Director: Sussy Love MD,PhD,GARRICK [facility] [id number] 20:06:00 Test Item Value Reference Range Interpretation [...] calculated (test <100 Desira ble code = 31493-8) range <100 m g/dL for primary prevention; <70 mg/dL for patients with C HD or diabetic patients with > or = 2 CHD risk factors. LDL-C is now calculated using the Guilherme-Metzger calculation, which is a validated novel method providin g better accuracy than the Friedewald equation in the estimation of LDL-C. Guilherme S S et al. KATHLEEN. 2013;310(50): 9687-3260 (http://educati on .[employer] .com/faq/NFR310 ) Cholesterol/HDL See_Comment [Automated ratio (test code = message] The 9830-1) system which generated this result transmitted reference range : <5.0 (calc). Th e reference range was not used to interpret this result as normal/abnormal . Non-HDL cholesterol See_Comment H For osvaldo ents with (test code = diabetes plus 1 33132-9) major ASCVD ris k factor, treatin g [...] RAC) Organization Information: Site ID: RGA [facility] Address: [address] [place] [address] Director: [facility] Interpretation Abnormal (test code = 38277-7) [place] [address], [id number] 20:06:00 Test Item Value Reference Range Interpretation Comments T4, free (test code 1.1 ng/dL 0.8-1.8 = 3024-7) MIKAYLA (test code = FASTING:UNKNOWN FASTING: MIKAYLA) UNKNOWN RAC (test code = Performing Organization RAC) Information: Site ID: [facility]GA [facility] Address: [address] [place] [address] Director: Peter Valencia [facility] CenterThyroid stimulating [id number] 20:06:00 Test Item Value Reference Range Interpretation [...] RAC) Organization Information: Site ID: MITCHELL Name: [facility] Address: [address] [place] [id number] Director: [facility] HospitalT32022-10-08 20:06:00 Test Item Value Reference Range Interpretation Comments T3 (test code = 114 ng/dL 76-181 3053-6) MIKAYLA (test code = FASTING:UNKNOWN FASTING: MIKAYLA) UNKNOWN RAC (test code = Performing Organization RAC) Information: Site ID: MITCHELL Name: [facility] Address: [address] [place] [id number] Director: [facility] HospitalfpnANE6997-37-89 20:06:00 Test Item Value Reference Range Interpretation Comments NT-proBNP 35 pg/mL Female Risk: O ptimal (test code = < 372 pg/[place] > [place] [address]-1) = 372 pg/mL For Heart Failure (HF) diagnosis, referenceranges in patients with d yspnea are based onRylan SHAVER Et al. J Am Nghia Cardiol.2018;71 :1191-1 [...] addition al information, pl ease refer tohttp://educat ion.[facility] stdiagnostics.c om/faq/ YJP502(This austyn k is being provided for informational/e madelineatio patrickposes onl y.) MIKAYLA (test FASTING:UNKNOWN code = MIKAYLA) FASTING: UNKNOWN RAC (test Performing code = RAC) Organization Information: Site ID: EZ Name: [employer], Address: [address] [place] [id number] Director: Sussy Love MD,PhD,GARRICK [facility] CenterLipid qvqnn1484-97-18 20:06:00 Test Item Value Reference Range Interpretation Comments Cholesterol, total 222 mg/dL <=200 H (test code = 2093-3) HDL cholesterol 57 mg/dL See_Comment [Automated (test code = 2085-07) message ] The system which generated this result transmitted reference range : > OR = 50. The reference range was not used to interpret this result as normal/abnormal . Triglycerides (test 162 mg/dL <=150 H code = 2571-8) LDL cholesterol 135 mg/dL (calc) H Reference ra nge: calculated (test <100 Desira ble code = 70136-1) range <100 m g/dL for primary prevention; <70 mg/dL for patients with C HD or diabetic patients with > or = 2 CHD risk factors. LDL-C is now calculated using the Guilherme-Metzger calculation, which is a validated novel method providin g better accuracy than the Friedewald equation in the estimation of LDL-C. Guilherme S S et al. KATHLEEN. 2013;310(19): 1688-8366 (http://educati on .[employer] .com/faq/BYS294 ) Cholesterol/HDL 3.9 See_Comment [Automated ratio (test code = message] The 9830-1) system which generated this result transmitted reference range : <5.0 (calc). Th e reference range was not used to interpret this result as normal/abnormal . Non-HDL cholesterol 165 See_Comment H For osvaldo ents with (test code = diabetes plus 1 90874-6) major ASCVD ris k factor, treatin g [...] = Performing RAC) Organization Information: Site ID: [place]LL [facility] Address: [address] [place] [address] Director: Peter Valencia Lab Interpretation Abnormal (test code = 11995-8) [facility] CenterT4, ycti2800-19-85 20:06:00 Test Item Value Reference Range Interpretation Comments T4, free (test code 1.1 ng/dL 0.8-1.8 = 3024-7) MIKAYLA (test code = FASTING:UNKNOWN FASTING: MIKAYLA) UNKNOWN RAC (test code = Performing Organization RAC) Information: Site ID: MITCHELL Name: [facility] Address: [address] [place] [address] Director: Peter OrdonezTuscarawas HospitalThyroid stimulating ovdqxat5265-12-45 20:06:00 Test Item Value Reference Range Interpretation Comments TSH (test 0.99 See_Comment [Automated mes luz] code = The system whic h 3016-3) generated this result transmit holley reference range : 0.40 - 4.50 mIU /L. The reference r lyudmila was not used to interpret this result as normal/abnormal . MIKAYLA (test FASTING:UNKNOWN code = MIKAYLA) FASTING: UNKNOWN RAC (test Performing code = RAC) Organization Information: Site ID: [facility] Name: [facility] Address: [address] [place] [address] Director: Peter OrdonezTuscarawas HospitalT32022-10-08 20:06:00 Test Item Value Reference Range Interpretation Comments T3 (test code = 114 ng/dL 76-181 3053-6) MIKAYLA (test code = FASTING:UNKNOWN FASTING: MIKAYLA) UNKNOWN RAC (test code = Performing Organization RAC) Information: Site ID: KATELYN Name: [facility] Address: [address] [place] [address] Director: Peter OrdonezTuscarawas HospitalNT-hlvXSS3545-90-34 20:06:00 Test Item Value Reference Range Interpretation Comments NT-proBNP 35 pg/mL Female Risk: O ptimal (test code = < 372 pg/mL [place] > [place] [address]-0) = 372 pg/mL For Heart Failure (HF) diagnosis, referenceranges in patients with d yspnea are based onRylan SHAVER Et al. J Am Nghia Cardiol.2018;71 :1191-1 [...] addition al information, pl ease refer tohttp://educat ion.[facility] stdiagnostics.c om/faq/ ZVA995(This austyn k is being provided for informational/e ducatio nalpurposes onl y.) MIKAYLA (test FASTING:UNKNOWN code = MIKAYLA) FASTING: UNKNOWN RAC (test Performing code = RAC) Organization Information: Site ID: EZ Name: [employer], Address: [address] [place] [id number] Director: Sussy Love MD,PhD,GARRICK [facility]2022-08-26 06:01:00 Test Item Value Reference Range Interpretation Comments HEMOGLOBIN (test code = HGB) 10.8 g/dL 12-16 L HEMATOCRIT (test code = HCT) 32.3 % 37-47 L Hemoglobin and Hematocrit panel - Kyauf7657-24-21 05:00:00 Test Item Value Reference Range Interpretation Comments hemoglobin (test code = hemoglobin) 10.8 g/dL 12-16 L hematocrit (test code = hematocrit) 32.3 % 37-47 L performing lab: (test code = performing lab:) [facility]- XR CHEST 1 [id number] 11:33:00 [facility] : 1960 Sex: F Patient Name: YIN IBRAHIM Unit No: [id number] EXAMS: CPT CODE: [id number] XR CHEST 1 V 74338 PORTABLECHEST July 04, 2022 6:48 AM COMMENT: COMPARISON: August 04, 2021 A right-sided Port-A-Cath is present with the tip atrium. There is no evidence for pneumothorax. at 1133 Reported and signed by: Robert Cornelius MD CC: Anup Bliss MD Technologist: CONOR DALTON (RT.R) Transcribed D/ (1133) [email or web address] [facility] NAME: YIN IBRAHIM [address] PHYS: Felix Das MD : 1960 AGE: 62 SEX: F [place], [place] [address] LOC: Y.998 5 PHONE #: [phone] EXAM DATE: 07/04/2022 STATUS: ADM IN FAX #: [phone] RAD #: D/C DT PAGE 1 Signed Report Patient Name: YIN IBRAHIM Unit No: [id number] EXAMS: CPT CODE: [id number] XR CHEST 1 V 46385 (Continued) Orig Print D/T: S: 07/04/2022 (1136) [facility] NAME: YIN IBRAHIM [address] [facility] PHYS: Felix Das MD : 1960 AGE: 62 SEX: F [place], [place] [address] LOC: Y.998 5 PHONE #: [phone] EXAM DATE: 07/04/2022 STATUS: ADM IN FAX #: [phone] RAD #: D/C DT PAGE 2 Signed ReportCBC W/AUTO DIFF 2022-06-04 12:43:00 Test Item Value Reference Range Interpretation [...] % 0-0 N code = NRBC) PROTHROMBIN [id number] 12:43:00 Test Item Value Reference Range Interpretation [...] Patient is on Heparin Drip? NOTHROMBOPLASTIN TIME [id number] 12:43:00 Test Item Value Reference Range Interpretation Comments PTT ACTIVATED (test 26.0 secs 26.6-34.6 L Please n ote new code = APTT) normal range. IS PATIENT ON ANTICOAGULANTS ? PAas Lab been notified if Patient is on Heparin Drip? NOBASIC METABOLIC [id number] 12:23:00 Test Item Value Reference Range Interpretation [...] RATE (test code = GFR) mL/mi n/1.73 o7Swkcfrhiv Range:Healthy A dults >90 mL/min/1.73 m2 For Chronic Kid fior Disease: Stage II Mild Decrease i n GFR 60-90 Stage III Moderate Decrea se in GFR 30-59 Stage IV Severe Decrease in GFR 15-29 Stage V Kidney Failure <15 CREATININE (test code 1.03 mg/dL 0.55-1.30 N = CREAT) CALCIUM (test code = 9.1 mg/dL 8.2-10.1 N CA) CBC W Auto Differential panel - [id number] 12:00:00 Test Item Value Reference Range Interpretation [...] performing lab: (test code = performing lab:) [facility] (PT)2022-06-04 12:00:00 Test Item Value Reference Range Interpretation Comments prothrombin time patient (test code 10.6 secs 9.7-12.5 = prothrombin time patient) international normal ratio (test 0.96 <2.0 code = international normal ratio) performing lab: (test code = performing lab:) [facility] Centerthromboplastin time riueshb8768-44-24 12:00:00 Test Item Value Reference Range Interpretation Comments PTT activated (test code = PTT 26.0 secs 26.6-34.6 L activated) performing lab: (test code = performing lab:) [facility] Centerbasic metabolic lvggu8168-27-77 11:05:00 Test Item Value Reference Range Interpretation [...] performing lab: (test code = performing lab:) [facility] CenterMethicillin resistant Staphylococcus aureus [Presence] in Specimen by Organism specific [id number] 11:05:00 Test Item Value Reference Range Interpretation Comments MRSA surveillance screen (test code see below = MRSA surveillance screen) performing lab: (test code = performing lab:) [facility] Centermssa PCR surveillance [id number] 11:05:00 Test Item Value Reference Range Interpretation Comments mssa PCR surveillance screen (test see below code = mssa PCR surveillance screen) performing lab: (test code = performing lab:) [facility] [id number] 15:04:00 Test Item Value Reference Range Interpretation Comments POC PH ARTERIAL TEST NOT 7.35-7.45 N See CRITICAL (test code = PHAP) PERFORMED RESULTS F orm for documentation.P rev iously reported result: 7.369 Edited by: Yordan on 02/21/22:591933 1504: PHAP previously reported as: 7. 369 See CRITICAL RESULTS Form fo r documentation. POC PCO2 ARTERIAL TEST NOT 35-45 N Previously (test code = PERFORMED mmHg reported resu lt: PCO2AP) 42.9 mmHgEdited by: BarbraAEG o n 02/21/22:504523 1504: PCO2A P previously reported as: 42 .9 mmHg POC-TCO2 ARTERIAL TEST NOT 23-27 N Previously (test code = PERFORMED mmol/L reported re sult: TCO2AP) 26 mmol/LEdited by: Yordan o n 02/21/22:366251 1504: TCO2A P previously reported as: 26 mmol/L POC-PO2 ARTERIAL TEST NOT 80-105 LL Previously (test code = PO2AP) PERFORMED mmHg report ed result: 38 mmHgEdited b y: Yordan on 02/21/22: 1504: PO2AP previously reported as: 38 *L mmHg POC-HCO3 ARTERIAL TEST NOT 22-26 N Previously (test code = PERFORMED mmol/L reported re sult: HCO3AP) 24.7 mmol/LEdit ed by: Yordan o n 02/21/22:453965 1504: HCO3A P previously reported as: 24 .7 mmol/L POC-BASE EXCESS TEST NOT -2-3 N Previously ARTERIAL (test code PERFORMED mmol/L repo rted result: = BEAP) -1 mmol/LEdited by: BarbraAEG o n 02/21/22:529234 1504: BEAP previously reported as: -1 mmol/L POC-SO2 ARTERIAL TEST NOT 95-98 L Previously (test code = SO2AP) PERFORMED % reported result: 70 %Edited by: Yordan on 02/21/22:749607 1504: SO2AP previously reported as: 70 L [...] (test code = SARITHA) - XR FLUORO [id number] 12:48:00 [facility] 1960 Sex: F Patient Name: YIN IBRAHIM Unit No: [id number] EXAMS: CPT CODE: [id number] XR FLUORO NDL 16507 Fluoroscopically guided right hip aspiration FINDINGS: After informed consent was obtained a 22-gauge needle is inserted into the right hip under fluoroscopic guidance using sterile technique. 1.5 mL of thin red fluid was aspirated. This is sent to the lab for analysis. The patient tolerated the procedure well. 40 se conds of fluoroscopy time was used on this exam. IMPRESSION: Fluoroscopically guided right hip aspiration. at 7368 Reported and signed by: Jeremy Kruse M.D. CC: Baldemar Epperson II, MD Technologist: Darshana Briceño RT.(R) Transcribed D/ (5587) tJOE [facility] NAME: YIN IBRAHIM Arianna [facility] PHYS: Baldemar Britt Abbie CAHPA MD : 1960 AGE: 61 SEX: F [place] [address] LOC: Y.RAD PHONE #: [phone] EXAM DATE: 11/20/2021 STATUS: DEP CLI FAX #: [phone] RAD#: D/C DT PAGE 1 Signed Report Patient Name: YIN IBRAHIM Unit No: [id number] EXAMS: CPT CODE: [id number] XR FLUORO NDL 78682 (Continued) Orig Print D/T: S: 11/21/2021 (1251) [facility] NAME: YIN IBRAHIM Arianna [facility] PHYS: Baldemar Britt EDUARD SCHMIDT : 1960 AGE: 61 SEX: F [place], [place] [address] LOC: Y.RAD PHONE #: [phone] EXAM DATE: 11/20/2021 STATUS: [facility] CLI FAX #: [phone] RAD #: D/C DT PAGE 2 Signed Report- CT LOWER EXTRM W/O C [id number] 05:19:00 [facility] : 1960 Sex: F Patient Name: YIN IBRAHIM Unit No: [id number] EXAMS: CPT CODE: [id number] [place]TRM W/[place] [address] TECHNIQUE: Volumetric CT data of the right femur was obtained without use of intravenous contrast. Images were then viewed in the axial, coronal and sagittal planes. CT radiation dose optimization is achieved for this examination by the use of a CT protocol in accordance with ACR practice standards and adhe rence to relief driller's recommendations. INDICATION: ASSESS HEALING COMPARISON: CT dated 06/22/2021 FINDINGS: Right total hip arthroplasty is demonstrated as well as plate and screw fixation of the lateral aspect of the femoral shaft. Hardware appears intact. An obliquely oriented fracture of the midfemoral shaft is present with incomplete healing. The mid to lateral aspect of the fracture demonstrates persistent lucency. The medial component of the fracture is less well demonstrated and possibly partially healed. Callus formation is seen about the proximal femoral shaft. No other fracture is identified. IMPRESSION: Incomplete healing of the right mid femoral shaft fracture. Electronically Si gned by Son Kruse on 11/21/2021 at 0519 Reported and signed by: Jeremy Kruse M.D. CC: Baldemar Epperson II, MD Technologist: Robert Samuel(R) CTDI: DLP: Trnscrpt: 11/21/2021 (0519) Dinah [facility] NAME: YIN IBRAHIM [address] [place] [address] PHYS: Baldemar Garnica II, MD : 1960 AGE: 61 SEX: F [place] [address] LOC: Y.RAD PHONE #: [phone] EXAM DATE: 11/20/2021 STATUS: DEP CLI FAX #: [phone] RAD #: D/C DT PAGE 1 Signed Report Patient Name: YIN IBRAHIM Unit No: [id number] EXAMS: CPT CODE: [id number] CT LOWER EXTRM W/[place] [address] (Continued) Orig Print D/T: S: 11/21/2021 (0522) [facility] NAME:YIN IBRAHIM [address] [place] [address] PHYS: Baldemar Britt II, MD : 1960 AGE: 61 SEX: F [place] [address] LOC: Y.RAD PHONE #: [phone] EXAM DATE: 11/20/2021 STATUS:DEP CLI FAX #: [phone] RAD #: D/C DT PAGE 2 Signed [...] (test code = WBCSY) SYNOVIAL FLD RBC 390885.000 0-2 H NOTE: An au tomated (test [...] DR KRUSE, SAVE ASP FOR 2 WKSAFB tlemwlf6607-07-76 06:13:25 Test Item Value Reference Range Interpretation Comments AFB culture No growth Specimen isolate (test after 6 weeks InformationSp ecimen code = 543-9) of Source: Tissue Specimen incubation. Site: Hip: [facility] hip deep tissue #4 [facility] HospitalAFB [id number] 06:13:25 Test Item Value Reference Range Interpretation Comments AFB culture No growth Specimen isolate (test after 6 weeks InformationSp ecimen code = 543-9) of Source: Tissue Specimen incubation. Site: Hip: Rig t hip deep tissue #4 [facility] HospitalFungus bfuwwbf4485-28-21 05:15:15 Test Item Value Reference Range Interpretation Comments Fungus culture No growth Specimen isolate (test after 4 weeks InformationSp ecimen code = 1441) of Source: TissueS pecimen incubation. Site: Hip: Rig t hip deep tissue #4 [facility] HospitalFungus [id number] 05:15:15 Test Item Value Reference Range Interpretation Comments Fungus culture No growth Specimen isolate (test after 4 weeks InformationSp ecimen code = 1441) of Source: TissueS pecimen incubation. Site: Hip: Righ t hip deep tissue #4 [facility] HospitalAnaerobic [id number] 13:21:21 Test Item Value Reference Range Interpretation Comments Anaerobic No anaerobic Specimen culture isolate organisms InformationS pecimen (test code = isolated. Source: TissueS pecimen 552) Site: Hip: Righ t hip deep tissue #4 [facility] HospitalAnaerobic lehopkg3186-89-08 13:21:21 Test Item Value Reference Range Interpretation Comments Anaerobic No anaerobic Specimen culture isolate organisms InformationS pecimen (test code = isolated. Source: TissueS pecimen 552) Site: Hip: Righ t hip deep tissue #4 [facility] HospitalAFB [id number] 02:09:34 Test Item Value Reference Range Interpretation Comments AFB stain No acid fast Specimen (test code = bacilli (AFB) InformationSpe cimen 676-7) seen. Source: TissueS pecimen Site: Hip: Righ t hip deep tissue #4 [facility] HospitalTissue [id number] 02:09:34 Test Item Value Reference Range Interpretation Comments Tissue culture No growth Specimen isolate (test after 3 days. InformationSp ecimen code = 33771-0) Source: Tiss ueSpecimen Site: Hip: Righ t hip deep tissue #4 [facility] HospitalFungus [id number] 02:09:34 Test Item Value Reference Range Interpretation Comments Fungus smear No fungi Specimen (test code = observed. InformationSpec imen Source: 1443) TissueSpecimen Site: Hip: Right hip deep tissue #4 [facility] HospitalAFB [id number] 02:09:34 Test Item Value Reference Range Interpretation Comments AFB stain No acid fast Specimen (test code = bacilli (AFB) InformationSpe cimen 676-7) seen. Source: TissueS pecimen Site: Hip: Righ t hip deep tissue #4 [facility] HospitalTissue [id number] 02:09:34 Test Item Value Reference Range Interpretation Comments Tissue culture No growth Specimen isolate (test after 3 days. InformationSp ecimen code = 69434-2) Source: Tiss ueSpecimen Site: Hip: Righ t hip deep tissue #4 [facility] HospitalFungus [id number] 02:09:34 Test Item Value Reference Range Interpretation Comments Fungus smear No fungi Specimen (test code = observed. InformationSpec imen Source: 2833) TissueSpecimen Site: Hip: Right hip deep tissue #4 [facility] CenterGram [id number] 02:09:34Gram stain isolateRare WBC'sNo organisms seen Comment: Specimen InformationSpecimen Source: TissueSpecimen Site: Hip: Right hip deep tissue #4 [facility] Gram [id number] 02:09:34Gram stain isolateRare WBC'sNo organisms seen Comment: Specimen InformationSpecimen Source: TissueSpecimen Site: Hip: Right hip deep tissue #4 [facility] Centerurgical pathology [id number] 01:45:48 Test Item Value Reference Range Interpretation Comments Case number (test code = [id number]) Surgical pathology See link below for report (test code = PDF Lab Report 2255) Result status (test code This is Final Report = [id number]) for [id number] [facility] [id number] 01:45:48 Test Item Value Reference Range Interpretation Comments Case number (test code = [id number]) Surgical pathology See link below for report (test code = PDF Lab Report 2255) Result status (test code This is Final Report = [id number]) for [id number] [facility] CenterPrepare RBC, 2 [id number] 20:45:00 Test Item Value Reference Range Interpretation Comments Product name (test code Apheresis -1 LR #2 = 25) Unit number (test code = [id number]) Product code (test code C1429Z19 = 3092) Dispense status (test Returned to not code = 24) transfused Blood expiration date (test code = 302) Blood type code (test code = 308) Blood type (test code = O POSITIVE 1314) Compatibility (test code Compatible = 6400) [facility] CenterPrepare RBC, 2 [id number] 20:45:00 Test Item Value Reference Range Interpretation Comments Product name (test code Apheresis -1 LR #2 = 25) Unit number (test code = [id number] 7119573) Product code (test code A0862T96 = 3092) Dispense status (test Returned to not code = 24) transfused Blood expiration date (test code = 302) Blood type code (test code = 308) Blood type (test code = O POSITIVE 1314) Compatibility (test code Compatible = 6400) [facility] [id number] 19:11:33 Test Item Value Reference Range Interpretation Comments POC glucose (test code 226 mg/dL 65-99 H Opera tor Name: = 17647-9) Ryan Shawn I D: [id number] able: No Action Neede d Lab Interpretation Abnormal (test code = 09715-6) [facility] [id number] 19:11:33 Test Item Value Reference Range Interpretation Comments POC glucose (test code 226 mg/dL 65-99 H Opera tor Name: = 89981-6) Ryan Shawn I D: [id number] able: No Action Neede d Lab Interpretation Abnormal (test code = 36159-4) [facility] blood gas, lgzvutrbl1599-32-53 15:16:19 Test Item Value Reference Range Interpretation Comments pH, arterial (test code 7.35-7.45 L = 2744-1) pCO2, arterial (test See_Comment H [Autom ated message] code = 2019-06) The system [facility] generated this result transmitted ref erence range: 35 - 45 mmHg. The reference r lyudmila was not used to interpret this result as normal/abnor mal. pO2, arterial (test code See_Comment H [A utomated message] = 2703-7) The system [employer] generated this result transmitted ref erence range: 80 - 90 mmHg. The reference r lyudmila was not used to interpret this result as normal/abnor mal. Temperature, Celsius Degrees C (test code = 8310-5) O2 saturation, arterial 99 % 95-100 (test code = 2708-6) pH, arterial corrected (test code = 95583-9) pCO2, arterial corrected mmHg (test code = 70071-2) pO2, arterial corrected mmHg (test code = 69532-4) Base excess, arterial See_Comment L [Auto mated message] (test code = 1925-7) The [facility] tem which generated this result transmitted ref erence range: -2 - 2 m Eq/L. The reference r lyudmila was not used to interpret this result as normal/abnor mal. Lab Interpretation (test Abnormal code = 81832-8) [facility] CenterGlucose level, rvvznch0616-84-64 15:16:19 Test Item Value Reference Range Interpretation Comments Glucose, syringe (test code = 284 mg/dL 65-99 H 2345-7) Lab Interpretation (test code = Abnormal 59416-0) [facility] CenterHemoglobin, nvaeiix1690-56-25 15:16:19 Test Item Value Reference Range Interpretation Comments Hemoglobin, syringe (test code = 9.9 g/dL 12.0-16.0 L 718-7) Lab Interpretation (test code = Abnormal 44143-7) [facility] CenterIonized calcium, [id number] 15:16:19 Test Item Value Reference Range Interpretation Comments Ionized calcium, arterial (test 1.19 mmol/L 1.11-1.32 code = 21210-9) [facility] CenterPotassium, [id number] 15:16:19 Test Item Value Reference Range Interpretation Comments Potassium, syringe See_Comment [Automat ed message] The (test code = 2007) system [facility] generated this result tra nsmitted reference range : 3.5 - 5.0 mEq/L. The refe rence range was not used to interpret this result as normal/abnormal . [facility] Systemodium level, [id number] 15:16:19 Test Item Value Reference Range Interpretation Comments Sodium, syringe (test See_Comment L [Auto mated message] code = 2947-0) The system [facility] generated this result transmitted ref erence range: 135 - 14 8 mEq/L. The refe rence range was not u sed to interpret this result as normal/abnor mal. Lab Interpretation (test Abnormal code = 28990-5) [facility] CenterArterial blood gas, jdluawgff8515-82-18 15:16:19 Test Item Value Reference Range Interpretation Comments pH, arterial (test code 7.35-7.45 L = 2744-1) pCO2, arterial (test See_Comment H [Autom ated message] code = 2019-8) The system [facility] generated this result transmitted ref erence range: 35 - 45 mmHg. The reference r lyudmila was not used to interpret this result as normal/abnor mal. pO2, arterial (test code See_Comment H [A utomated message] = 2703-7) The system [employer] generated this result transmitted ref erence range: 80 - 90 mmHg. The reference r lyudmila was not used to interpret this result as normal/abnor mal. Temperature, Celsius Degrees C (test code = 8310-5) O2 saturation, arterial 99 % 95-100 (test code = 2708-6) pH, arterial corrected (test code = 22142-0) pCO2, arterial corrected mmHg (test code = 03659-2) pO2, arterial corrected mmHg (test code = 49126-1) Base excess, arterial See_Comment L [Auto mated message] (test code = 1925-7) The s tem which generated this result transmitted ref erence range: -2 - 2 m Eq/L. The reference r lyudmila was not used to interpret this result as normal/abnor mal. Lab Interpretation (test Abnormal code = 46601-5) [facility] [id number] 15:16:19 Test Item Value Reference Range Interpretation Comments Glucose, syringe (test code = 284 mg/dL 65-99 H 2345-7) Lab Interpretation (test code = Abnormal 32009-0) [facility]em[facility], [id number] 15:16:19 Test Item Value Reference Range Interpretation Comments Hemoglobin, syringe (test code = 9.9 g/dL 12.0-16.0 L 718-7) Lab Interpretation (test code = Abnormal 98562-6) [facility] CenterIonized calcium, [id number] 15:16:19 Test Item Value Reference Range Interpretation Comments Ionized calcium, arterial (test 1.19 mmol/L 1.11-1.32 code = 17754-2) [facility]Potassium, [id number] 15:16:19 Test Item Value Reference Range Interpretation Comments Potassium, syringe See_Comment [Automat ed message] The (test code = 2007) system ich generated this result tra nsmitted reference range : 3.5 - 5.0 mEq/L. The refe rence range was not used to interpret this result as normal/abnormal . [facility], thznnfz4903-35-54 15:16:19 Test Item Value Reference Range Interpretation Comments Sodium, syringe (test See_Comment L [Auto mated message] code = 2947-0) The system [employer] generated this result transmitted ref erence range: 135 - 14 8 mEq/L. The refe rence range was not u sed to interpret this result as normal/abnor mal. Lab Interpretation (test Abnormal code = 03933-9) [facility] [place] [facility] and [id number] 00:29:00 Test Item Value Reference Range Interpretation Comments ABO grouping (test code = 883-9) O Rh type (test code = 24220-1) POS Antibody screen (gel) (test code = NEG 890-4) [facility] and [id number] 00:29:00 Test Item Value Reference Range Interpretation Comments ABO grouping (test code = 883-9) O Rh type (test code = 43546-6) POS Antibody screen (gel) (test code = NEG 890-4) [address]2021-09-30 21:11:17 Test Item Value Reference Range Interpretation Comments Ventricular rate (test code = 253) Atrial rate (test code = 255) MI interval (test code = 266) QRSD interval [...] of 08-AUG-2021 08:40,-No significant change was found- [facility] 12 [id number] 21:11:17 Test Item Value Reference Range Interpretation Comments Ventricular rate (test code = 253) Atrial rate (test code = 255) MI interval (test code = 266) QRSD interval [...] of 08-AUG-2021 08:40,-No significant change was found- Brennon CaputoARS-CoV-2 (COVID-19) RNA [Presence] in Respiratory specimen by [facility] with probe jutasjtub9215-30-22 17:59:27 Test Item Value Reference Range Interpretation Comments SARS-CoV-2 (COVID-19) RNA Not detected Not-Detected [Presence] in Respiratory specimen by [facility] with probe detection (test code = 18713-7) Whether patient is employed in a healthcare setting (test code = 78166-9) Whether the patient has symptoms related to condition of interest (test code = 78387-8) Patient was hospitalized because of this condition (test code = 55830-0) Whether the patient was admitted to intensive care unit (ICU) for condition of interest (test code = 61048-8) Whether patient resides in a congregate care setting (test code = 63117-0) [facility] [id number] 16:13:00 Test Item Value Reference Range Interpretation [...] RATE (test code = GFR) mL/mi n/1.73 v8Drgameyny Range:Healthy Adults >90 mL/min/1.73 m2 For Chronic Kidney Disease: Stage II Mild Decrease i n GFR 60-90 Stage III Moderate Decre ase in GFR 30-59 St age IV Severe Decre ase in GFR 15-29 St age V Kidney Failur e <15Unit of norma ure: mL/min/1.73 l6Bostvgkxp Range:Healthy Adults >90 mL/min/1.73 m2 For Chronic [...] H TOTAL (test code = ALKP) PROTHROMBIN [id number] 16:12:00 Test Item Value Reference Range Interpretation [...] - 3.5DUPLICATE [Automated mess age] The system [employer] generated this result transmitted ref erence range: (). The reference range was not used to int erpret this result as normal/abnormal . IS PATIENT ON ANTICOAGULANTS ? PAas Lab been notified if Patient is on Heparin Drip? YESAdd'l Lab Tests to be ordered if Y. NPROTHROMBIN [id number] 16:12:00 Test Item Value Reference Interpretation Comments [...] Lab Tests to be ordered if Y. [id number] 16:12:00 Test Item Value Reference Range Interpretation Comments SODIUM (test code = NA) 144 mEq/L 135-145 N [id number] 16:12:00 Test Item Value Reference Range Interpretation Comments POTASSIUM (test code = K) 4.6 mEq/L 3.5-5.0 N [id number] 16:12:00 Test Item Value Reference Range Interpretation Comments CHLORIDE (test code = CL) 106 mEq/L 100-115 N CARBON [id number] 16:12:00 Test Item Value Reference Range Interpretation Comments CARBON DIOXIDE (test code = CO2) 29 mEq/L 22-31 N BLOOD UREA [id number] 16:12:00 Test Item Value Reference Range Interpretation Comments BLOOD UREA NITROGEN (test code = 21 mg/dL 7-18 H BUN) GLOMERULAR FILTRATION [id number] 16:12:00 Test Item Value Reference Range Interpretation Comments GLOMERULAR FILTRATION RATE (test 33 ml/min >60 L code = GFR) [id number] 16:12:00 Test Item Value Reference Range Interpretation Comments CREATININE (test code = CREAT) 1.6 mg/dL 0.5-1.0 H TOTAL [id number] 16:12:00 Test Item Value Reference Range Interpretation Comments TOTAL PROTEIN (test code = PROT) 5.5 gm/dL 6.3-8.2 L [id number] 16:12:00 Test Item Value Reference Range Interpretation Comments ALBUMIN (test code = ALB) 2.9 gm/dL 3.4-4.8 L [id number] 16:12:00 Test Item Value Reference Range Interpretation Comments CALCIUM (test code = CA) 8.1 mg/dL 8.4-10.2 L [id number] 16:12:00 Test Item Value Reference Range Interpretation Comments SGOT/AST (test code = AST) 35 units/L 15-37 N [id number] 16:12:00 Test Item Value Reference Range Interpretation Comments SGPT/ALT (test code = ALT) 21 units/L 12-78 N ALKALINE PHOSPHATASE [id number] 16:12:00 Test Item Value Reference Range Interpretation Comments ALKALINE PHOSPHATASE TOTAL (test 143 units/L 46-116 H code = ALKP) ALBUMIN/GLOBULIN [id number] 16:12:00 Test Item Value Reference Range Interpretation Comments ALBUMIN/GLOBULIN RATIO TEST NOT PERFORMED (test code = A/G) THROMBOPLASTIN TIME [id number] 10:19:00 Test Item Value Reference Range Interpretation [...] = MicroIn ternational Units/mL TSH) THYROID STIMULATING [id number] 07:21:00 Test Item Value Reference Range Interpretation Comments THYROID STIMULATING 2.69 0.36-3.74 N Test Per formed in HORMONE (test code = MicroIn ternational Units/mL TSH) B-TYPE NATRIURETIC [id number] 07:18:00 Test Item Value Reference Range Interpretation Comments B-TYPE NATRIURETIC PEPTIDE (test 344.28 pg/mL 0-100 H code = BNP) B-TYPE NATRIURETIC [id number] 07:18:00 Test Item Value Reference Range Interpretation [...] 837 Units/L 26-192 H CK) BASIC METABOLIC [id number] 06:56:00 Test Item Value Reference Range Interpretation [...] RATE (test code = GFR) mL/mi n/1.73 c6Vvvnfajyu Range:Healthy Adults >90 mL/min/1.73 m2 For Chronic Kidney Disease: Stage II Mild Decrease i n GFR 60-90 Stage III Moderate Decrea se in GFR 30-59 St age IV Severe Decre ase in GFR 15-29 St age V Kidney Failur e <15 CREATININE (test code 1.13 mg/dL 0.55-1.30 N = CREAT) CALCIUM (test code = 8.0 mg/dL 8.2-10.1 L CA) CBC W/AUTO [id number] 06:31:00 Test Item Value Reference Range Interpretation [...] % 0-0 N code = NRBC) HGB [id number] 23:44:00 Test Item Value Reference Range Interpretation Comments HEMOGLOBIN (test code = 6.5 g/dL 10.1-13.8 LL RESU LTS CALLED TO HGB) SRAVANIZULEIMA NARAYANAN AD BACK & CONFIRMED? ELIZABETH SBY F.LAB.[facility] 08/04 2342Results jessica ified by repeat maryjane sis HEMATOCRIT (test code = 21.2 % 32.5-41.8 L HCT) HGB [id number] 23:43:00 Test Item Value Reference Range Interpretation Comments HEMOGLOBIN (test code = 6.5 g/dL 10.1-13.8 LL RESU LTS CALLED TO HGB) SRAVANIZULEIMA NARAYANAN AD BACK & CONFIRMED? ELIZABETH SBY F.LAB.[facility] 08/04 2342Results jessica ified by repeat maryjane sis HEMATOCRIT (test code = 21.2 % 32.5-41.8 L HCT) [id number] 23:24:00 Test Item Value Reference Range Interpretation Comments GLUCOSE (test code = GLU) BILIRUBIN [id number] 23:24:00 Test Item Value Reference Range Interpretation Comments BILIRUBIN TOTAL (test code = BILT) mg/dL 0.2-1.0 COVID 19 Asymptomatic IH [id number] 23:06:00 Test Item Value Reference Range Interpretation Comments COVID 19 Asymptomatic IH AG (test NEGATIVE NEGATIVE code = COVNONPUIAG) THROMBOPLASTIN TIME [id number] 22:32:00 Test Item Value Reference Range Interpretation Comments THROMBOPLASTIN TIME PARTIAL (test code = PTT) IS PATIENT ON ANTICOAGULANTS ? [facility] been notified if Patient is on Heparin Drip? YESAdd'l Lab Tests to be ordered if Y. NPROTHROMBIN [id number] 22:31:00 Test Item Value Reference Range Interpretation [...] emboli sm. 3.0 - 3.5 THROMBOPLASTIN TIME [id number] 22:31:00 Test Item Value Reference Range Interpretation Comments THROMBOPLASTIN TIME PARTIAL (test 39.1 secs 22-38 H code = PTT) CBC W/AUTO [id number] 22:27:00 Test Item Value Reference Range Interpretation Comments WHITE BLOOD CELL 4.6 K/mm3 6.5-12.3 L DONE AT: [facility] (test code = WBC) [facility] [address] [place], [place] [address] RED BLOOD CELL (test 2.32 M/mm3 3.51-4.69 L code = RBC) HEMOGLOBIN (test code 6.5 g/dL 10.1-13.8 LL RESULT S VERIFIED BY = HGB) REPEAT ANALYSIS RESULTS CALLED TO YOUSIF MCGHEE/[facility] EREAD BACK & CONF IRMED? MAXINE F.LAB. 1389 HEMATOCRIT (test code 21.3 % 32.5-41.8 L [...] ed message] code = NT#) The system [employer] generated this result transmitted ref erence range: (). The reference range was not used to int erpret this result as normal/abnormal . LYMPHOCYTE # (test 0.9 K/mm3 See_Comment [Automat ed message] code = LY#) The system [employer] generated this result transmitted ref erence range: (). The reference range was not used to int erpret this result as normal/abnormal . MONOCYTE # (test code 0.3 K/mm3 See_Comment [Auto mated message] = MO#) The system [employer] generated this result transmitted ref erence range: (). The reference range was not used to int erpret this result as normal/abnormal . EOSINOPHIL # (test 0.04 K/mm3 See_Comment [Automat ed message] code = EO#) The system [employer] generated this result transmitted ref erence range: (). The reference range was not used to int erpret this result as normal/abnormal . BASOPHIL # (test code 0 K/mm3 See_Comment [Auto mated message] = BA#) The system [employer] generated this result transmitted ref erence range: (). The reference range was not used to int erpret this result as normal/abnormal . PLATELET MORPHOLOGY NORMAL NORMAL REQUIRED (test code = PLTMR) CBC W/AUTO [id number] 22:26:00 Test Item Value Reference Range Interpretation Comments WHITE BLOOD CELL 4.6 K/mm3 6.5-12.3 L (test code = WBC) RED BLOOD CELL (test 2.32 M/mm3 3.51-4.69 L code = RBC) HEMOGLOBIN (test 6.5 g/dL 10.1-13.8 LL RESULTS JESSICA IFIED BY code = HGB) REPEAT ANALYSIS RESULTS CALLED TO YOUSIF MCGHEE/MEENA OR JOSHUA NURSEREAD BACK & CONFIRMED? MAXINE DiazLAB. 08/04/21 2899 HEMATOCRIT (test 21.3 % 32.5-41.8 L code [...] code = PLTMR) - XR CHEST 1 [id number] 17:44:00 [facility] 1960 Sex: F Patient Name: YIN IBRAHIM Unit No: [id number] EXAMS: CPT CODE: [id number] XR CHEST 1 V 55927 IMAGES PROVIDED: One frontal view of the [...] excluded. 2. Left PICCline as above. at 6624 Reported and signed by: Jeremy Kruse M.D. CC: Yahir Hendrix MD Technologist: RIVER HARTMANN, RT(R) Transcribed D/ (5945) Dinah [facility] NAME: YIN IBRAHIM [address] [place] [address] PHYS: Yahir Nix : 1960 AGE: 61 SEX: F [place] [address] LOC: Y.516 A PHONE #: [phone] EXAM DATE: 08/04/2021 STATUS: ADM IN FAX #: [phone] RAD #: D/C DT PAGE 1 Signed Report Patient Name: YNI IBRAHIM Unit No: [id number] EXAMS: CPTCODE: [id number] XR CHEST 1 V 49490 (Continued) Orig Print D/T: S: 08/04/2021 (1743) [facility] NAME: YIN IBRAHIM [address] [place] [address] PHYS: Yahir Nix : 1960 AGE: 61 SEX: F [place] [address] LOC: Y.516 A PHONE #: [phone] EXAM DATE:08/04/2021 STATUS: ADM IN FAX #: [phone] RAD #: D/C DT PAGE 2 Signed ReportCBC W/MANUAL [id number] 09:03:00 Test Item Value Reference Range Interpretation [...] CELL (test code = NRBC) CBC W/MANUAL [id number] 05:56:00 Test Item Value Reference Range Interpretation [...] holley message] code = TCC) The system [employer] generated this result transmit holley reference range : 100. The refere nce range was not u sed to interpret th is result as normal/abnormal . SEGMENTED NEUTROPHILS % 50-65 (test code = SEG) LYMPHOCYTE (test code = % 20-40 LYMPH) NUCLEATED RED BLOOD 0 % 0-0 N CELL (test code = NRBC) CBC W/AUTO [id number] 05:56:00 Test Item Value Reference Range Interpretation [...] N (test code = NRBC) CBC W/MANUAL [id number] 05:56:00 Test Item Value Reference Range Interpretation Comments STAIN ACCEPTABILITY (test code = STN ACCEPTABLE) CELLS COUNTED (test code See_Comment [A utomated message] = TCC) The system [employer] generated this result transmitted ref erence range: 100. The reference range was not used to interpr et this result as normal/abnormal . SEGMENTED NEUTROPHILS % 50-65 (test code = SEG) LYMPHOCYTE (test code = % 20-40 LYMPH) HGB [id number] 14:30:00 Test Item Value Reference Range Interpretation Comments HEMOGLOBIN (test code = 7.7 g/dL 12-16 L HGB) HEMATOCRIT (test code = 16.2 % 37-47 LL VERI FIED BY REPEAT HCT) ANALYSIS.CRITIC AL VALUE CALLED TO MARIAM KIRKLAND/LILIBETH RN PCUREAD BACK & CONFIRMED? YESB Y [id number] 1429 CBC W/MANUAL [id number] 10:21:00 Test Item Value Reference Range Interpretation [...] CELL (test code = NRBC) BASIC METABOLIC [id number] 06:45:00 Test Item Value Reference Range Interpretation [...] RATE (test code = GFR) mL/mi n/1.73 m6Jrqtojirl Range:Healthy Adults >90 mL/min/1.73 m2 For Chronic Kidney Disease: Stage II Mild Decrease i n GFR 60-90 Stage III Moderate Decrea se in GFR 30-59 St age IV Severe Decre ase in GFR 15-29 St age V Kidney Failur e <15 CREATININE (test code 0.89 mg/dL 0.55-1.30 N = CREAT) CALCIUM (test code = 7.6 mg/dL 8.2-10.1 L CA) CBC W/MANUAL [id number] 06:21:00 Test Item Value Reference Range Interpretation [...] holley message] code = TCC) The system [employer] generated this result transmit holley reference range : 100. The refere nce range was not u sed to interpret th is result as normal/abnormal . SEGMENTED NEUTROPHILS % 50-65 (test code = SEG) LYMPHOCYTE (test code = % 20-40 LYMPH) NUCLEATED RED BLOOD 0 % 0-0 N CELL (test code = NRBC) CBC W/AUTO [id number] 06:21:00 Test Item Value Reference Range Interpretation [...] N (test code = NRBC) CBC W/MANUAL [id number] 06:21:00 Test Item Value Reference Range Interpretation Comments STAIN ACCEPTABILITY (test code = STN ACCEPTABLE) CELLS COUNTED (test code See_Comment [A utomated message] = TCC) The system [employer] generated this result transmitted ref erence range: 100. The reference range was not used to interpr et this result as normal/abnormal . SEGMENTED NEUTROPHILS % 50-65 (test code = SEG) LYMPHOCYTE (test code = % 20-40 LYMPH) VANCOMYCIN [id number] 07:33:00 Test Item Value Reference Range Interpretation Comments VANCOMYCIN TROUGH 13.20 mcg/mL 10-20 N THERAPEUTI C RANGE: (test code = VANCT) PEAK: 30 -40 mcg/mL TROUGH: 10-20 m cg/mL TOXIC RANGE: 80 -100 mcg/mL DATE OF LAST DOSE: 07/10/21TIME OF LAST DOSE: 0500HGB [id number] 06:08:00 Test Item Value Reference Range Interpretation Comments HEMOGLOBIN (test code = 6.0 g/dL 12-16 LL VERI FIED BY REPEAT HGB) ANALYSIS.CRITIC AL VALUE CALLED TO ROXI Bruce/PAULY ALEGRIA AREAD BACK & CONFIRME D? YBY Y.[facility] 07/11 0608 HEMATOCRIT (test code = 18.4 % 37-47 LL VERI FIED BY REPEAT HCT) ANALYSIS.CRITIC AL VALUE CALLED TO ROXI Bruce/PAULY ALEGRIA AREAD BACK & CONFIRME D? YBY Y.LAB.[facility] 07/11 0608 SPECIMEN COMMENT: POD #2- XR CHEST 1 [id number] 13:45:00 [facility] 1960 Sex: F Patient Name: YIN IBRAHIM Unit No: [id number] EXAMS: CPT CODE: [id number] XR CHEST 1 V 82865 IMAGES PROVIDED: One frontal view of the chest is provided. COMPARISON: 07/10/2021 FINDINGS: The left PICC line has been adjusted with tip now overlying the SVC. No other significant interval change. IMPRESSION:Successful revision of left PICC line as above. at 1345 Reported and signed by: Jeremy Kruse M.D. CC: Yahir Hendrix MD; Shannan Gibbons MD Technologist: KADY DIETZ(R) Transcribed D/ (9296) tPARISA.[facility] NAME: YIN IBRAHIM [address] [facility] [address] PHYS: Shannan Valera MD : 1960 AGE: 61 SEX: F [place], [place] [address] LOC: Y.521 A PHONE #: [phone] EXAM DATE: 07/10/2021 STATUS: ADM IN FAX #: [phone] RAD #: D/C DT PAGE 1 Signed Report Patient Name: YIN IBRAHIM Unit No: [id number] EXAMS: CPT CODE: [id number] XR CHEST 1 V 02052 (Continued) Orig Print D/T: S: 07/10/2021 (1349) [facility] NAME: YIN IBRAHIM [address] [facility] [address] PHYS: Shannan Valera MD : 1960 AGE: 61 SEX: F [place] [address] LOC: Y.521 A PHONE #: [phone] EXAM DATE: 07/10/2021 STATUS: ADM IN FAX #: [phone] RAD #: D/C DT PAGE 2 Signed Report - XR CHEST 1 [id number] 13:37:00 [facility] 1960 Sex: F Patient Name: YIN IBRAHIM Unit No: [id number] EXAMS: CPT CODE: [id number] XR CHEST 1 V 80703 IMAGES PROVIDED: One frontal view of the chest is provided. COMPARISON: None FINDINGS: Right-sided Imsf-A-Arhrpv in place with tip at the cavoatrial [...] Gibbons MD Technologist: KADY DIETZ(R) Transcribed D/ (5237) Dinah [facility] NAME: YIN IBRAHIM [address] [facility] PHYS: Shannan Valera MD : 1960 AGE: 61 SEX: F [place], [place] [address] LOC: Y.521 A PHONE #: [phone] EXAM DATE: 07/10/2021 STATUS: ADM IN FAX #: [phone] RAD #: D/C DT PAGE 1 Signed Report Patient Name: YIN IBRAHIM Unit No: [id number] EXAMS: CPT CODE: [id number] XR CHEST 1 V 94986 (Continued) Orig Print D/T: S: 07/10/2021 (1340) [facility] NAME: YIN IBRAHIM [address] [facility] PHYS: Shannan Valera MD : 1960 AGE: 61 SEX: F [place], [place] [address] LOC: Y.521 A PHONE #: [phone] EXAM DATE: 07/10/2021 STATUS: ADM IN FAX #: [phone] RAD #: D/C DT PAGE 2 Signed Report- XR PELVIS 1/2 [id number] 09:19:00 [facility] : 1960 Sex: F Patient Name: YIN IBRAHIM Unit No: [id number] EXAMS: CPT CODE: [id number] XR PELVIS 1/2 VIEWS 89412 INTRAOPERATIVE LEG LENGTH FILM COMMENT: COMPARISON: No prior exams available. In progress right hip replacement is noted. AP portable right hip COMMENT: The patient is status post joint replacement which is articulating normally. at 0919 Reported and signed by: Robert Cornelius MD CC: Yahir Hednrix MD Technologist: RIVER HARTMANN, RT(R) Transcribed D/ (918) Jesse [facility] NAME: YIN IBRAHIM [address] [place] [address] PHYS: ALBERTO.Arianna Randall Yahir Hendrix : 1960 AGE: 61 SEX: F [place] LOC: Y.521 A PHONE #: [phone] EXAM DATE: 07/09/2021 STATUS: ADM IN FAX #: [phone] RAD #: D/C DT PAGE 1 Signed Report Patient Name: YIN IBRAHIM Unit No: [id number] EXAMS: CPT CODE: [id number] XR PELVIS 1/2 VIEWS 12034 (Continued) Orig Print D/T: S: 07/10/2021 (921) [facility] NAME: YIN IBRAHIM [address] [place] [address] PHYS: ALBERTOBhavna Randall Yahir Hendrix Crystal : 1960 AGE: 61 SEX: F [place], [place] [address] LOC: Y.521 A PHONE #: [phone] EXAM DATE: 07/09/2021 STATUS: ADM IN FAX #: [phone] RAD #: D/C DT PAGE 2 Signed Report - XR PELVIS 1/2 [id number] 09:19:00 [facility] [place] [facility] 1960 Sex: F Patient Name: YIN IBRAHIM Unit No: [id number] EXAMS: CPT CODE: [id number] XR PELVIS 1/2 VIEWS 53195 INTRAOPERATIVE LEG LENGTH FILM COMMENT: COMPARISON: No prior exams available. In progress right hip replacement is noted. AP portable right hip COMMENT: The patient is status post joint replacement which is articulating normally. at 0919 Reported and signed by: Robert Cornelius MD CC: Yahir Hendrix MD Technologist: CONOR DALTON (RT.R) Transcribed D/ (918) GayleL [facility] NAME: YIN IBRAHIM [address] [facility] PHYS: MATZAK.Arianna - Yahir Hendrix Crystal : 1960 AGE: 61 SEX: F [place] [address] LOC: Y.521 A PHONE #: [phone] EXAM DATE: 07/09/2021 STATUS: ADM IN FAX #: [phone] RAD #: D/C DT PAGE 1 Signed Report Patient Name: YIN IBRAHIM Unit No: [id number] EXAMS: CPT CODE: [id number] XR PELVIS 1/2 VIEWS 96836 (Continued) Orig Print D/T: S: 07/10/2021 (09) [facility] NAME: YIN IBRAHIM [address] [facility] PHYS: MATZAK.Arianna - Yahir Hendrix Crystal : 1960 AGE: 61 SEX: F [place], [place] [address] LOC: Y.521 A PHONE #: [phone] EXAM DATE: 07/09/2021 STATUS: ADM IN FAX #: [phone] RAD #: D/C DT PAGE 2 Signed ReportBASIC METABOLIC [id number] 06:46:00 Test Item Value Reference Range Interpretation [...] RATE (test code = GFR) mL/mi n/1.73 t6Ypfchvvgz Range:Healthy Adults >90 mL/min/1.73 m2 For Chronic Kidney Disease: Stage II Mild Decrease i n GFR 60-90 Stage III Moderate Decrea se in GFR 30-59 St age IV Severe Decre ase in GFR 15-29 St age V Kidney Failu re <15 CREATININE (test code 1.18 mg/dL 0.55-1.30 N = CREAT) CALCIUM (test code = 7.7 mg/dL 8.2-10.1 L CA) SPECIMEN COMMENT: POD #1HGB [id number] 06:00:00 Test Item Value Reference Range Interpretation Comments HEMOGLOBIN (test code = HGB) 8.8 g/dL 12-16 L HEMATOCRIT (test code = HCT) 28.9 % 37-47 L SPECIMEN COMMENT: POD #1Novel Coronavirus 2019 [id number] 22:57:00 Test Item Value Reference Range Interpretation [...] of SARS-CoV-2 RNA may be affe cted bysameche hough tion methods, storag e conditions, and /or [...] assa y in vitro. Novel Coronavirus 2018 [id number] 22:56:00 Test Item Value Reference Range Interpretation [...] diagnostic SARS-CoV-2 assa y in vitro. PROTHROMBIN [id number] 11:14:00 Test Item Value Reference Range Interpretation [...] BLOOD, PT every other day NTHROMBOPLASTIN TIME [id number] 11:14:00 Test Item Value Reference Range Interpretation [...] 0-0 N code = NRBC) COMPREHENSIVE METABOLIC [id number] 11:13:00 Test Item Value Reference Range Interpretation [...] RATE (test code = GFR) mL/mi n/1.73 w0Zbvfsrvto Range:Healthy Adults >90 mL/min/1.73 m2 For Chronic [...] (test code = ALKP) SYNOVIAL FLD CELL [id number] 18:42:00 Test Item Value Reference Range Interpretation Comments SYNOVIAL FLD XANTHOCHROMIC LT. YELLOW A COLOR (test code = COLSY) SYNOVIAL FLD [place] CLEAR SLIGHT APPEARANCE (test code = APPSY) SYNOVIAL FLD 1.5 mL VOLUME (test code = VOLSY) SYNOVIAL FLD WBC 1048.000 /MM3 0-200 H (test code = WBCSY) SYNOVIAL FLD RBC 35023.000 /mm3 0-2 H NOTE: An automated (test [...] = MONOSY) SPECIMEN COMMENT: ASP.RT.HIP- XR FLUORO [id number] 13:27:00 [facility] 1960 Sex: F Patient Name: YIN IBRAHIM Unit No: [id number] EXAMS: CPT CODE: [id number] XR FLUORO NDL 53516 FLUOROSCOPICALLY GUIDED ASPIRATION OF THE RIGHT HIP COMMENT: After informed consent was obtained a needle wasplaced in the hip joint with fluoroscopic guidance. Its position was confirmed with an AP radiograph. 0.2 minutes of fluoroscopy time was utilized. 3 mL of clear pink fluid was aspirated and sent for analysis. No immediate complications were encountered. at 1327 Reported and signed by: Robert Cornelius MD CC: Yahir Hendrix MD Technologist: aDrshana Briceño RT.(R) Transcribed D/ (1327) GayleL [facility] NAME: YIN IBRAHIM [address] [place] [address] PHYS: [place] Yahir Hendrix Crystal : 1960 AGE: 61 SEX: F [place] [address] LOC: Y.RAD PHONE #: [phone] EXAM DATE: 06/22/2021 STATUS: REG CLI FAX #: [phone] RAD #: D/C DT PAGE 1 Signed Report Patient Name: YIN IBRAHIM Unit No: [id number] EXAMS: CPT CODE: [id number] XR FLUORO NDL 37272 (Continued) Orig Print D/T: S: 06/22/2021 (1330) [facility] NAME: YIN IBRAHIM [address] [place] [address] PHYS: [place] Yahir Hendrix Crystal : 1960 AGE: 61 SEX: F [place] [address] LOC: Y.RAD PHONE #: [phone] EXAM DATE: 06/22/2021 STATUS: REG CLI FAX #: [phone] RAD #: D/C DT PAGE [address]/[id number] 13:11:00 Test Item Value Reference Range Interpretation [...] COMMENT: ASP.RT.HIP- CT LOWER EXTRM W/O C [id number] 11:26:00 [facility] : 1960 Sex: F Patient Name: YIN IBRAHIM Unit No: [id number] EXAMS: CPT CODE: [id number] CT LOWER EXTRM W/[place] [address] [place] SCAN RIGHT HIP WITH RECONSTRUCTION DIAGNOSIS: [...] with ACR practice standards and adherence to relief driller's recommen dations. INDICATION: RIGHT HIP R/O FRACTURE COMPARISON: None. FINDINGS: Findings are as described above. at 1126 Reported and signed by: Nabeel Matias MD CC: Yahir Hendrix MD Technologist: Baljeet Reddy,RT(R) CTDI: DLP: Trnscrpt: 06/22/2021 (1126) AntonyGVG [facility] NAME: YIN IBRAHIM [address] [facility] PHYS: MATVA.01 - Yahir Hendrix : 1960 AGE: 61 SEX: F [place], [place] [address] LOC: Y.RAD PHONE #: [phone] EXAM DATE: 06/22/2021 STATUS: REG CLI FAX #: [phone] RAD #: D/C DT PAGE 1 Signed Report Patient Name: YIN IBRAHIM Unit No: [id number] EXAMS: CPT CODE: [id number] LOWER EXTRM W/[place] [address] (Continued) Orig Print D/T: S: 06/22/2021 (1129) [facility] NAME: YIN IBRAHIM [address] [facility] [address] PHYS: MATVA.Arianna - Yahir Hendrix : 1960 AGE:61 SEX: F [place], [place] [address] LOC: Y.RAD PHONE #: [phone] EXAM DATE: 06/22/2021 STATUS: REG CLI FAX #: [phone] RAD #: D/C DT PAGE 2 Signed Report- XR PELVIS 1/2 [id number] 08:44:00 [facility] 1960 Sex: F Patient Name: YIN IBRAHIM Unit No: [id number] EXAMS: CPT CODE: [id number] XR PELVIS 1/2 VIEWS 76614 INTRAOPERATIVE LEG LENGTH FILM COMMENT: COMPARISON: No prior exams available. In progress right hip replacement is noted. AP portable right hip COMMENT: The patient is status post joint replacement which is articulating normally. at 0844 Reported and signed by: Robert Cornelius MD CC: Yahir Hendrix MD Technologist: FERNANDO ALEMAN RT(R) Transcribed D/ (0844) AntonyJCL [facility] NAME: YIN IBRAHIM [address] [facility] PHYS: MATYahir Florence : 1960 AGE: 60 SEX: F [place], [place] [address] LOC: Y.502 A PHONE #: [phone] EXAM DATE: 05/21/2021 STATUS: ADM IN FAX #: [phone] RAD #: D/C DT PAGE 1 Signed Report Patient Name: YIN IBRAHIM Unit No: [id number] EXAMS: CPT CODE: [id number] XR PELVIS 1/2 VIEWS 65496 (Continued) Orig Print D/T: S: 05/22/2021 (0847) [facility] NAME: YIN IBRAHIM [address] [facility] PHYS: LASHONDAYahir Florence : 1960 AGE: 60 SEX: F [place], [place] [address] LOC: Y.502 A PHONE #: [phone] EXAM DATE: 05/21/2021 STATUS: ADM IN FAX #: [phone] RAD #: D/C DT PAGE 2 Signed Report- XR PELVIS 1/2 [id number] 08:44:00 [facility] : 1960 Sex: F Patient Name: YIN IBRAHIM Unit No: [id number] EXAMS: CPT CODE: [id number] XR PELVIS 1/2 VIEWS 86324 INTRAOPERATIVE LEG LENGTH FILM COMMENT: COMPARISON: No prior exams available. In progress right hip replacement is noted. AP portable right hip COMMENT: The patient is status post joint replacement which is articulating normally. at 0844 Reported and signed by: Robert Cornelius MD CC: Yahir Hendrix MD Technologist: CONOR DALTON (RT.R) Transcribed D/ (0844) GayleL [facility] NAME: YIN IRBAHIM [address] [place] [address] PHYS: [place] - HendrixGrzegorz richardsonos Crystal : 1960 AGE: 60 SEX: F [place] [address] LOC: Y.502 A PHONE #: [phone] EXAM DATE: 05/21/2021 STATUS: ADM IN FAX #: [phone] RAD #: D/C DT PAGE 1 Signed Report Patient Name: YIN IBRAHIM Unit No: [id number] EXAMS: CPT CODE: [id number] XR PELVIS 1/2 VIEWS 99499 (Continued) Orig Print D/T: S: 05/22/2021 (0847) [facility] NAME: YIN IBRAHIM [address] [place] [address] PHYS: [place] - HendrixYahir : 1960 AGE: 60 SEX: F [place] [address] LOC: Y.502 A PHONE #: [phone] EXAM DATE: 05/21/2021 STATUS: ADM IN FAX #: [phone] RAD #: D/C DT PAGE 2 Signed ReportHGB QRA1960 06:02:00 Test Item Value Reference Range Interpretation Comments HEMOGLOBIN (test code = HGB) 9.9 g/dL 12-16 L HEMATOCRIT (test code = HCT) 29.4 % 37-47 L SPECIMEN COMMENT: POD #1PROTHROMBIN [id number] 13:39:00 Test Item Value Reference Range Interpretation [...] BLOOD, PT every other day NTHROMBOPLASTIN TIME [id number] 13:39:00 Test Item Value Reference Range Interpretation Comments PTT ACTIVATED (test code = APTT) 29.2 secs 24.9-37.0 N IS PATIENT ON ANTICOAGULANTS ? NHas Lab been notified if Patient is on Heparin Drip? NOIf Yes, orderCBC, OCCULT BLOOD, PT every other day NCOMPREHENSIVE METABOLIC [id number] 13:19:00 Test Item Value Reference Range Interpretation [...] RATE (test code = GFR) mL/mi n/1.73 a9Srogfhada Range:Healthy Adults >90 mL/min/1.73 m2 For Chronic [...] TOTAL (test code = ALKP) CBC W/AUTO [id number] 12:40:00 Test Item Value Reference Range Interpretation [...] NRBC) - MRI LW JNT W/O CONT [id number] 12:32:00 [facility] : 1960 Sex: F Patient Name: YIN IBRAHIM Unit No: [id number] EXAMS: CPT CODE: [id number] MRI JNT W/[place] [address] MRI OF THE PELVIS AND HIPS WITH [...] MD CC: Yahir Hendrix MD Technologist: Crissy Hopkins RT(R) Tr anscribed D/ (1232) tBHANU [facility] NAME: YIN IBRAHIM [address] [facility] PHYS: MATSAMMY - Yahir Hendrix : 1960 AGE: 60 SEX: F [place], [place] [address] LOC: Y.MRI PHONE #: [phone] EXAM DATE: 04/19/2021 STATUS: REG CLI FAX #: [phone] RAD #: D/C DT PAGE 1 Signed Report Patient Name: YIN IBRAHIM Unit No: [id number] EXAMS:CPT CODE: [id number] MRI LW JNT W/[place] [address] (Continued) Orig Print D/T: S: 04/19/2021 (1235) [facility] NAME: YIN IBRAHIM [address] [facility] PHYS: Yahir Nix : 1960 AGE: 60 SEX: F [place], [place] [address] LOC: Y.MRI PHONE #: [phone] EXAM DATE: 04/19/2021 STATUS: REG CLI FAX #: [phone] RAD #: D/C DT PAGE 2 Signed Report- XR PELVIS 1/2 [id number] 14:31:00 [facility] : 1960 Sex: F Patient Name: YIN IBRAHIM Unit No: [id number] EXAMS: CPT CODE: [id number] XR PELVIS 1/2 VIEWS 04049 AP VIEW OF THE PELVIS. COMMENT: In progress total left hip arthroplasty. AP view of the pelvis COMMENT: COMPARISON: No prior exams available. Completed total left hip arthroplasty. Prosthesis appears to be in good position. at 1431 Reported and signed by: Jeremy Kruse M.D. CC: Yahir Hendrix MD Technologist: Robert Aiken(R) Transcribed D/ (1431) Dinah [facility] NAME: YIN IBRAHIM [address] [place] [address] PHYS: MATVABhavna - Yahir Hendrix : 1960 AGE: 60 SEX: F [place] [address] LOC: Y.307 A PHONE #: [phone] EXAM DATE: 03/15/2021 STATUS: DIS INFAX #: [phone] RAD #: D/C DT 03/16/2021 PAGE 1 Signed Report Patient Name: YIN IBRAHIM Unit No: [id number] EXAMS: CPT CODE: [id number] XR PELVIS 1/2 VIEWS 15283 (Continued) Orig Print D/T: S: 03/16/2021 (1434) [facility] NAME: YIN IBRAHIM [address] [place] [address] PHYS: MATVA.Arianna - Yahir Hendrix : 1960 AGE: 60 SEX: F [place] [address] LOC: Y.307 A PHONE #: [phone] EXAM DATE: 03/15/2021 STATUS: DIS IN FAX #: [phone] RAD #: D/C DT 03/16/2021 PAGE 2 Signed Report- XR PELVIS 1/2 [id number] 14:31:00 [facility] : 1960 Sex: F Patient Name: YIN IBRAHIM Unit No: [id number] EXAMS: CPT CODE: [id number] XR PELVIS 1/2 VIEWS 72754 APVIEW OF THE PELVIS. COMMENT: In progress total left hip arthroplasty. AP view of the pelvis COMMENT: COMPARISON: No prior exams available. Completed total left hip arthroplasty. Prosthesis appears to be in good position. at 1431 Reported and signed by: Jeremy Kruse M.D. CC: Yahir Hendrix MD Technologist: CONOR DALTON (RT.R) Transcribed D/ (1431) AntonyIgnacio [facility] NAME: YIN IBRAHIM [address] [place] [address] PHYS: ALBERTO.Arianna - Yahir Hendrix : 1960 AGE: 60 SEX: F [place], [place] [address]CQDN NO: [id number] LOC: Y.307 A PHONE #: [phone] EXAM DATE: 03/15/2021 STATUS: DIS IN FAX #:[phone] RAD #: D/C DT 03/16/2021 PAGE 1 Signed Report Patient Name: YIN IBRAHIM Unit No: [id number] EXAMS: CPT CODE: [id number] XR PELVIS 1/2 VIEWS 90607 (Continued) Orig Print D/T: S: 2020 (1434) [facility] NAME: YIN IBRAHIM [address] [place] [address] PHYS: MATZAK.Arianna - Yahir Hendrix : 1960 AGE: 60 SEX: F [place], [place] [address] LOC: Y.307 A PHONE #: [phone] EXAM DATE: 03/15/2021 STATUS: DIS IN FAX #: [phone] RAD #: D/C DT 03/16/2021 PAGE 2 Signed ReportBASIC METABOLIC [id number] 06:32:00 Test Item Value Reference Range Interpretation [...] RATE (test code = GFR) mL/mi n/1.73 [id number] Range:Healthy Adults >90 mL/min/1.73 m2 For Chronic Kidney Disease: Stage II Mild Decrease i n GFR 60-90 Stage III Moderate Decrea se in GFR 30-59 St age IV Severe Decre ase in GFR 15-29 St age V Kidney Failur e <15 CREATININE (test code 1.03 mg/dL 0.55-1.30 N = CREAT) CALCIUM (test code = 8.2 mg/dL 8.2-10.1 N CA) HGB [id number] 06:07:00 Test Item Value Reference Range Interpretation [...] code = 0.1 {K/CMM} 0.0-0.5 EOSINOPHILS #) [facility][QL] [id number] 14:49:00 Test Item Value Reference Range Interpretation Comments IMMUNOGLOBULIN A (test code = 137 mg/dl 47-310 N IMMUNOGLOBULIN A) IMMUNOGLOBULIN G (test code = 708 mg/dl 600-1640 N IMMUNOGLOBULIN G) IMMUNOGLOBULIN M (test code = 68 mg/dl 50-300 N IMMUNOGLOBULIN M) [facility][QL] PROTEIN, TOTAL AND PROTEIN [id number] 14:49:00 Test Item Value Reference Range Interpretation Comments PROTEIN, TOTAL (test 6.5 g/dl 6.1-8.1 N code = PROTEIN, TOTAL) ALBUMIN (test code = 3.9 g/dl 3.8-4.8 N ALBUMIN) TNOFY-8-KKYLKOMCT 0.4 g/dl 0.2-0.3 (test code = EDIYD-7-ZCDWWZVKO) DGYLM-8-GBGSHSBTD 0.9 g/dl 0.5-0.9 N (test code = SZHGQ-0-TLNQTCQZY) BETA 1 GLOBULIN (test 0.4 g/dl 0.4-0.6 [...] diagnosis. Alph a-1 globulin increa se noted. [facility] Coronavirus 2018 [id number] 11:21:00 Test Item Value Reference Range Interpretation Comments Novel Coronavirus Negative Negative Positive r esults are 2018 Inhouse (test indicativ e of the presence [...] assa y in vitro. Novel Coronavirus 2018 [id number] 11:21:00 Test Item Value Reference Range Interpretation [...] for the identification of SARS-CoV-2 RNA usingthe Lailaihui M2000 Sy stem under the FDA Emergen cy UseAuthorizatio n. The testing is perf ormed by carlos d in the procedures for the Lailaihui M2000 molecular diagnostic SARS-CoV-2 assa y in vitro. AB HIV 16:09:00 Test Item Value Reference Range Interpretation Comments AB HIV 1 (test code NONREACTIVE NONREACTIVE DONE AT: [facility] = HIV1AB) [facility] [address] [place], [place] [address]Done by [employer] 4th Gen HIV Ag/Ab C ombo Screen AB HIV 1 16:09:00 Test Item Value Reference Range Interpretation Comments AB HIV 1 2 (test NONREACTIVE NONREACTIVE Done by Sie TrustYouaur code = IKG09KF) 4th Gen HIV Ag/Ab Combo Screen COMPREHENSIVE METABOLIC [id number] 13:20:00 Test Item Value Reference Range Interpretation [...] RATE (test code = GFR) mL/mi n/1.73 v1Kilhgvfef Range:Healthy Adults >90 mL/min/1.73 m2 For Chronic [...] H TOTAL (test code = ALKP) PROTHROMBIN [id number] 13:20:00 Test Item Value Reference Range Interpretation [...] BLOOD, PT every other day NTHROMBOPLASTIN TIME [id number] 13:20:00 Test Item Value Reference Range Interpretation [...] NRBC) - MRI LW JNT W/O CONT [id number] 08:45:00 [facility] : 1960 Sex: F Patient Name: YIN IBRAHIM Unit No: [id number] EXAMS: CPT CODE: [id number] [place] LW JNT W/[place] [address] TECHNIQUE: Multiplanar, multisequence MRI of the pelvis/left [...] Technologist: EVAN TIM.MRI,CT Transcribed D/ (0845) Dinah [facility] NAME: YIN IBRAHIM[address] PHYS: Felix Das : 1960 AGE: 60 SEX: F [place], [place] [address] LOC: Y.MRI PHONE #: [phone] EXAM DATE: 03/06/2021 STATUS: DEP CLI FAX #: [phone] RAD #: D/C DT PAGE 1 Signed Report Patient Name: YIN IBRAHIM Unit No: [id number]: CPT CODE: [id number] MRI LW JNT W/[place] [address] (Continued) Orig Print D/T: S: 03/07/2021 (0848) [facility] NAME: YIN IBRHAIM [address] [facility] PHYS: Felix Das : 1960 AGE: 60 SEX: F [place], [place] [address] LOC: Y.MRI PHONE #:[phone] EXAM DATE: 03/06/2021 STATUS: DEP CLI FAX #: [phone] RAD #: D/C DT PAGE 2 Signed NzjhytVAPG-MkJ-1 (COVID-19) RNA [Presence] in Respiratory specimen by [facility] with probe [id number] 19:23:13 Test Item Value Reference Range Interpretation Comments SARS-CoV-2 (COVID-19) RNA Not detected Not-Detected [Presence] in Respiratory specimen by [facility] with probe detection (test code = 16656-1) [facility]) 2020-05-04 18:46:00 Test Item Value Reference Range Interpretation Comments SARS-COV2/RT-PCR (test code = Detected Not Detected, Negative A A 0841159) SARS-COV-[address] [facility] (test code = 1286360) Results are for the detection of SARS-CoV-2 [...] copies/mL.This SARS CoV-2 test is a rapid, wnrh-jlaoBZ-UNH test intended for the qualitative detection of [...] 564(g) of the Act.Fact Sheet for Healthcare Providers:https://www.[employer]ch/ Documents/Xpert%20Xpress%20SARS%20CoV-2/Fact%20Sheets/302-3802%06ZODL-UXT-8%20HE ALTHCARE%20PROVIDERS%20FACT%20SHEET.pdfFact Sheet for Healthcare Patients:https://www.[employer]/Documents/Xpert%20Xpress %20SARS%20CoV-2/Fact%20Sheets/302-3801%61LHYJ-QGC-9%20PATIENT%20FACT%20SHEET.pdf Performing Laboratory:[facility] [place], [place] [address]ashish Menendez.[place], [place] [address]CK Pelvis with Pelvis Transvaginal [id number] 09:51:00STUDY: Pelvis w Pelvis Transvaginal USCOMPARISON: None.HISTORY: - Right lower quadrant abdominal tenderness.FINDINGS:Transvaginal and transabdominal ultrasound images of the pelvis were obtained.Uterus: Has been removed.Ovaries: Have been removed.Pelvic fluid: None.IMPRESSION:Status post hysterectomy and bilateral salpingooophorectomy.Otherwise no significant abnormality.--Read by: Dixie Lewis MDDictated Date/time: 08/23/19 10:39Electronically Signed by: Dixie Lewis MD 08/23/1910:40FINAL REPORTUT PhysiciansUS Breast [id number] 08:22:00COMPLETE ULTRASOUND OF LEFT BREAST AND AXILLA: 08/23/2019CLINICAL: /N63.0 Unspecified Lump In Unspecified Breast. COMPARISON:Comparison is made to exam dated: 08/23/2019 mammogram - [facility]. TECHNIQUE: Color flow and real- [...] the patient. Professional servicesare provided by the [facility] MLenin KotlikDivision of Diagnostic Imaging.Bashir Esparza M.D. levi/:08/23/2019 09:14:30 Senior Operator(s): Alyx Almaraz RDMS, [facility]cosOutpatient Imagingletter sent: BI-RADS 1/2 Ultrasound BI-RADS: 2 Benign--Read by: Bashir Esparzaictated Date/time: 08/23/19 09:14Electronically Signed by: Bashir Espazra MD 08/23/1909:14FINAL REPORTUT [facility] Digital Mammo DX Elbert w ed [id number] 07:40:00BILATERAL DIGITAL DIAGNOSTIC MAMMOGRAM 3D/2D WITH CAD: [...] recommended. Professional services are provided by the [facility] Son [facility] Centerion [facility] Diagnostic Imaging.Bashir Esparza M.D. levi/:08/23/2019 09:13:09 Senior Operator(s): Viky Paige [facility] ImagingMammogram BI-RADS: 0 Indeterminate--Read by: Bashir Esparzaictated Date/time: 08/23/19 09:13Electronically Signed by: Bashir Esparza MD 08/23/1909:13FINAL REPORTUT Physicians[QL] CULTURE, URINE, [id number] 16:33:01 Test Item Value Reference Range Interpretation Comments FINAL REPORT (test code = FINAL No Growth REPORT) [facility][O] Urine Dipstick (In Office)2019-08-18 16:32:00 Test Item Value Reference Range Interpretation Comments Glucose (test code = Glucose) neg N LEUKOCYTES (test code = LEUKOCYTES) neg N NITRITE; Normal (test code = 19111-5) neg N UROBILINOGEN; Normal (test code = 0.2 N 64141-4) PROTEIN; Normal (test code = 28697-4) neg N pH (test code = pH) 7.5 N URINE BLOOD; Normal (test code = neg N 42195-9) SPECIFIC GRAVITY; Normal (test code = 1.020 N 2965-2) KETONES; Normal (test code = 88998-3) neg N BILIRUBIN; Normal (test code = 30794-5) neg N [facility] - Affirm VPIII (BV Panel)2019-08-09 00:00:00 Test Item Value Reference Range Interpretation Comments Affirm VPIII (BV Panel) REPORT See Comment (test code = Affirm VPIII (BV Panel) REPORT) [facility] - GC/[id number] 00:00:00 Test Item Value Reference Range Interpretation Comments GC REPORT (test code = GC REPORT) Negative Chlamydia REPORT (test code = Negative 94225-1) [facility]
[2023-09-26 14:01] LABS: Absolute Lymphocytes (CBC) 1.8 K/uL (0.7-4.9); Hematocrit 32.3 % (36.0-45.0); Lymphocytes % 34.9 % (15.3-44.8); MCV 93.2 fL (80-100); MPV 6.9 fL (7.6-11.3); Platelets 203 thou/uL (152-406); RBC Red Blood Cell Count 3.47 M/uL (3.86-4.86)
[2023-09-26 14:07] LABS: Protime INR 0.92
--- NOTE | 2023-09-26 14:08 | RAD REPORT ---
EXAM DESCRIPTION: CT - Spine Lumbar Wo Con - 09/26/2023 1:47 pm CLINICAL HISTORY: Radiculopathy. lumbar spinal procedure yesterday, blood in dressing today COMPARISON: No comparisons TECHNIQUE: Axial noncontrast CT imaging of the lumbar spine was performed with coronal and sagittal re-formatted images. All CT scans are performed using dose optimization technique as appropriate and may include automated exposure control or mA/KV adjustment according to patient size. FINDINGS: No acute lumbar spine fracture seen. No aggressive marrow pattern or malalignment. Calcifi ed adrenal glands noted. Postsurgical hardware is in place related to fusion at L4-5. Hardware is also present involving the p osterior aspects of both sacroiliac joints. Stimulator wiring is also present posteriorly. No acute process is demonstrated. Slight reticulation in the subcutaneous fat is seen the area of wir ing entry through the skin of lower back without evidence of a drainable fluid collection. IMPRESSION: Mild localized subcutaneous inflammation is seen lower back without definitive fluid col lection or hematoma. No acute lumbar spine abnormality detected.
[2023-09-26 14:17] LABS: Potassium 3.6 mEq/L (3.5-5.1)
--- NOTE | 2023-09-26 14:36 | EDPHYS ---
Physician Documentation [facility] Name: Lydia Hanson Age: 63 yrs Sex: Female : 1960 Arrival Date: 09/26/2023 Time: 12:58 Bed 16 Private MD: ED Physician Michi Diaz HPI: 09/26 14:30 This 63 yrs old Female presents to ER via Ambulatory with complaints of bleeding. rn 14:30 Patient reports that wires placed in back yesterday at Dr. Monte's office for rn bladder incontinence. Denies taking blood thinners. Reports doing well and procedure seems successful as she woke up dry for the first time in a long time. When she got up though noticed some blood in the dressing, went to go see Dr. Monte and told to come here for CAT scan to rule out spinal hematoma. Bleeding has stopped and dressing was changed at office and has no longer blood. Patient denies any lower extremity weakness or numbness.. Onset: The symptoms/episode began/occurred yesterday. Severity of symptoms: At their worst the symptoms were mild in the emergency department the symptoms have improved. The patient has not experienced similar symptoms in the past. The patient has been recently seen by a physician:. Historical: - Allergies: 13:19 Adhesives; nj1 13:19 CEPHALOSPORINS; nj1 13:19 Codeine; nj1 13:19 Latex; nj1 13:19 PENICILLINS; nj1 13:19 TETRACYCLINES; nj1 - PMHx: 13:19 CKD; Depression; Hyperlipidemia; Hypertension; L hip replacement; narcolepsy; Sleep nj1 Apnea; Thyroid problem; V-tach; - PSHx: 13:19 Cholecystectomy; hysterectomy; nj1 - Immunization history:: Client reports receiving the 2nd dose of the Covid vaccine. - Social history:: Smoking status: Patient denies any tobacco usage or history of. - Family history:: not pertinent. - Hospitalizations: : No recent hospitalization is reported. ROS: 14:30 Constitutional: Negative for fever, chills, and weight loss, Cardiovascular: Negative rn for chest pain, palpitations, and edema, Respiratory: Negative for shortness of breath, cough, wheezing, and pleuritic chest pain, Abdomen/GI: Negative for abdominal pain, nausea, vomiting, diarrhea, and constipation, Back: Positive for bleeding from surgical wound MS/Extremity: Negative for injury and deformity, Skin: Negative for injury, rash, and discoloration, Neuro: Negative for headache, weakness, numbness, tingling, and seizure, Exam: 14:30 Constitutional: This is a well developed, well nourished patient who is awake, alert, rn and in no acute distress. Cardiovascular: Regular rate and rhythm. No pulse deficits. Respiratory: No increased work of breathing, no retractions or nasal flaring. Back: No spinal tenderness. No active bleeding, dressing intact and dry. No external hematoma or discoloration. Vital Signs: 13:07 BP 164 / 91; Pulse 62; Resp 18; Temp 98.4(O); Pulse Ox 99% on R/A; Weight 92.99 kg; nj1 Height 5 ft. 7 in. ; 14:00 BP 151 / 55; Pulse 60; Resp 16; Pulse Ox 99% on R/A; me1 14:39 BP 133 / 69; Pulse 56; Resp 16; Pulse Ox 99% on R/A; me1 13:07 Body Mass Index 32.11 (92.99 kg, 170.18 cm) nj1 MDM: 13:03 Patient medically screened. rn 14:30 Differential Diagnosis Subcutaneous hematoma, postoperative bleeding, seroma, spinal rn hematoma. Data reviewed: vital signs, nurses notes, lab test result(s), radiologic studies, CT scan, and as a result, I will discharge patient. Counseling: I had a detailed discussion with the patient and/or guardian regarding the historical points, exam findings, and any diagnostic results supporting the discharge/admit diagnosis, lab results, radiology results, the need for outpatient follow up, to return to the emergency department if symptoms worsen or persist or if there are any questions or concerns that arise at home. Response to treatment: the patient's symptoms have resolved after treatment, and as a result, I will discharge patient. Special discussion: I discussed with the patient/guardian in detail that at this point there is no indication for admission to the hospital. It is understood, however, that if the symptoms persist or worsen the patient needs to return immediately for re-evaluation. Special discussion: Based on the history and exam findings, there is no indication for further emergent testing or inpatient evaluation. I discussed with the patient/guardian the need to see the OB Gyne specialist for further evaluation of the symptoms. ED course: No further bleeding noted. CT negative for acute findings. No spinal hematoma or perispinal hematoma noted. No fluid collections. No signs of infection, normal H\T\H WBC and hemoglobin 11. Patient states last tested her hemoglobin was 9.. 09/26 13:25 Order name: CBC with Diff; Complete Time: 14:06 rn 09/26 13:25 Order name: Basic Metabolic Panel; Complete Time: 14:25 rn 09/26 13:25 Order name: Protime (+inr); Complete Time: 14:13 rn 09/26 13:25 Order name: Ptt, Activated; Complete Time: 14:13 rn 09/26 13:25 Order name: CT Lumbar Spine Wo Con; Complete Time: 14:13 rn 09/26 13:25 Order name: IV Start; Complete Time: 13:40 rn Administered Medications: No medications were administered Disposition Summary: 09/26/23 14:36 Discharge Ordered Notes: Location: Home rn Problem: new rn Symptoms: have improved rn Condition: Stable rn Diagnosis - Postprocedural hemorrhage of skin and subcutaneous tissue following other rn lvn - Resolved Followup: rn - With: Private Physician - When: As needed - Reason: Recheck today's complaints, Re-evaluation by your physician Discharge Instructions: - Discharge Summary Sheet rn - Hematoma rn Forms: - Medication Reconciliation Form rn - Thank You Letter rn - Antibiotic turnaround engineer - Prescription Opioid Use rn - Patient Portal Instructions rn - Leadership Thank You Letter rn Signatures: Dispatcher [employer] Michi Eaton MD MD rn Jaco, Norma, RN RN nj1
--- NOTE | 2023-09-26 14:36 | ER ---
Nurse's Notes [facility] Name: Lydia Hanson Age: 63 yrs Sex: Female : 1960 Arrival Date: 09/26/2023 Time: 12:58 Bed 16 Private MD: Diagnosis: Postprocedural hemorrhage of skin and subcutaneous tissue following other procedure-Resolved Presentation: 09/26 13:07 Chief complaint: Patient states: Was at [facility] yesterday, had procedure done in [facility] to help with incontinence, has a device on her back, states she noted a lot of bleeding from the insertion site yesterday and this morning, went back to clinic this am, dressing changed and instructed to come to ED for further evaluation and treatment. 13:07 Coronavirus screen: Vaccine status: Patient reports receiving the 2nd dose of the covid nj1 vaccine. Ebola Screen: Patient denies travel to an Ebola-affected area in the 21 days before illness onset. Initial Sepsis Screen: Does the patient meet any 2 criteria? No. Patient's initial sepsis screen is negative. Does the patient have a suspected source of infection? No. Patient's initial sepsis screen is negative. Risk Assessment: Do you want to hurt yourself or someone else? Patient reports no desire to harm self or others. Onset of symptoms was September 25, 2023. 13:07 Method Of Arrival: Ambulatory [facility] 13:07 Acuity: RIA 3 nj1 Triage Assessment: 14:51 General: Appears comfortable, well groomed, well developed, well nourished, Behavior is me1 calm, cooperative, appropriate for age. Historical: - Allergies: 13:19 Adhesives; nj1 13:19 CEPHALOSPORINS; nj1 13:19 Codeine; nj1 13:19 Latex; nj1 13:19 PENICILLINS; nj1 13:19 TETRACYCLINES; nj1 - PMHx: 13:19 CKD; Depression; Hyperlipidemia; Hypertension; L hip replacement; narcolepsy; Sleep nj1 Apnea; Thyroid problem; V-tach; - PSHx: 13:19 Cholecystectomy; hysterectomy; nj1 - Immunization history:: Client reports receiving the 2nd dose of the Covid vaccine. - Social history:: Smoking status: Patient denies any tobacco usage or history of. - Family history:: not pertinent. - Hospitalizations: : No recent hospitalization is reported. Screenin:30 [facility] ED Fall Risk Assessment (Adult) History of falling in the last 3 months, me1 including since admission No falls in past 3 months (0 pts) Confusion or Disorientation No (0 pts) Intoxicated or Sedated No (0 pts) Impaired Gait No (0 pts) Mobility Assist Device Used No (0 pt) Altered Elimination No (0 pt) Score/Fall Risk Level 0 - 2 = Low Risk Oriented to surroundings, Provided non-skid footwear, Hourly rounding (assess needs \T\ fall precautionary measures) done. Abuse screen: Denies threats or abuse. Nutritional screening: No deficits noted. Tuberculosis screening: No symptoms or risk factors identified. Assessment: 14:30 General: Appears comfortable, well groomed, well developed, well nourished, Behavior is me1 calm, cooperative, appropriate for age, Reports Was at [facility] yesterday, had procedure done in spine to help with incontinence, has a device on her back, states she noted a lot of bleeding from the insertion site yesterday and this morning, went back to clinic this am, dressing changed and instructed to come to ED for further evaluation and treatment. Pain: Denies pain. Neuro: Level of Consciousness is awake, alert, obeys commands, Oriented to person, place, time, situation, Appropriate for age. Cardiovascular: Capillary refill < 3 seconds Patient's skin is warm and dry. Cardiovascular:. Respiratory: Airway is patent Respiratory effort is even, unlabored, Respiratory pattern is regular, symmetrical, Breath sounds are clear bilaterally. Derm: Wound noted back Wound is insertion site for a stimulator that was placed yesterday to assist with bladder incontinence. Dressing is clean and dry. Vital Signs: 13:07 BP 164 / 91; Pulse 62; Resp 18; Temp 98.4(O); Pulse Ox 99% on R/A; Weight 92.99 kg; nj1 Height 5 ft. 7 in. ; 14:00 BP 151 / 55; Pulse 60; Resp 16; Pulse Ox 99% on R/A; me1 14:39 BP 133 / 69; Pulse 56; Resp 16; Pulse Ox 99% on R/A; me1 13:07 Body Mass Index 32.11 (92.99 kg, 170.18 cm) nj1 ED Course: 13:01 Patient arrived in ED. rg4 13:03 Michi Diaz MD is Attending Physician. rn 13:19 Triage completed. nj1 13:19 Arm band placed on right wrist. nj1 13:29 Ninfa Dent, RN is Primary Nurse. me1 13:40 Inserted saline lock: 22 gauge in left antecubital area, using aseptic technique. me1 13:40 CBC with Diff Sent. me1 13:40 Basic Metabolic Panel Sent. me1 13:40 Ptt, Activated Sent. me1 13:40 Protime (+inr) Sent. me1 13:49 CT Lumbar Spine Wo Con In Process Unspecified. EDMS 14:30 Patient has correct armband on for positive identification. Bed in low position. Call me1 light in reach. Side rails up X 1. Provided Education on: POC. Verbalized understanding. . 14:30 No provider procedures requiring assistance completed. me1 14:51 IV discontinued, intact, bleeding controlled, No redness/swelling at site. Pressure me1 dressing applied. Administered Medications: No medications were administered Medication: 14:30 VIS not applicable for this client. me1 Outcome: 14:36 Discharge ordered by . rn 14:50 Discharged to home ambulatory, me1 14:50 Condition: stable 14:50 Discharge instructions given to patient, Instructed on discharge instructions, follow up and referral plans. Demonstrated understanding of instructions, follow-up care, 14:52 Patient left the ED. me1 Signatures: Dispatcher [employer] Michi Eaton MD MD rn Garcia, Rubi rg4 Kaykay Boucher RN RN nj1 Ninfa Dent, RN RN me1 Corrections: (The following items were deleted from the chart) 14:29 13:07 Chief complaint: Patient states: Was at [facility] yesterday, had procedure me1 done in spine to help with incontinence, has a device on her back, states she noted a lot of bleeding from the insertion site yesterday and this morning, went back to clinic this am, dressing changed and instructed to come to ED for further evaluation and treatment. nj1 14:38 14:37 Respiratory: me1 me1
[2023-09-26 15:10] VITALS: TEMP 98.4; O2SAT 99
[2023-09-26 15:16] VITALS: BP 133/69
== END 2023-09-26 14:52 | disposition home or self-care (01) ==
LOC: ER 12:58
DX: L76.22 Postprocedural hemorrhage of skin and subcutaneous tissue following other procedure (principal); I10 Essential (primary) hypertension; Z96.642 Presence of left artificial hip joint; Z88.0 Allergy status to penicillin; Z88.1 Allergy status to other antibiotic agents; Z88.3 Allergy status to other anti-infective agents; Z88.5 Allergy status to narcotic agent; Z91.040 Latex allergy status; Z91.048 Other nonmedicinal substance allergy status
CPT/HCPCS: 36415; 72131; 80048; 85025; 85610; 85730; 99284

== ENCOUNTER 2024-03-02 11:18 | Emergency (ER) | payer BC, OTHER ==
[2024-03-02 12:05] LABS: Absolute Eosinophils 0.1 K/uL (0-0.5); Absolute Lymphocytes (CBC) 1.1 K/uL (0.7-4.9); Absolute Monocytes 0.3 K/uL (0.1-1.3); Absolute Neutrophil 3.4 K/uL (1.8-8.0); Basophils % 0.6 % (0-1.3); Eosinophils % 1.1 % (0-4.4); Hematocrit 29.8 % (36.0-45.0); Hemoglobin 9.7 g/dL (12.0-15.0); Lymphocytes % 22.7 % (15.3-44.8); MCH 30.7 pg (27.0-35.0); MCHC 32.6 g/dL (32.0-36.0); MCV 94.2 fL (80-100); Monocytes % 5.5 % (3.3-12.3); Neutrophils % 70.1 % (41.7-73.7); Platelets 216 thou/uL (152-406); RBC Red Blood Cell Count 3.16 M/uL (3.86-4.86)
[2024-03-02 12:24] LABS: Anion Gap 9.7 mEq/L (5.0-15.0); Bilirubin Direct 0.2 mg/dL (0-0.2); Bilirubin Indirect, Calculated 0.3 mg/dL (0.2-0.8); Bilirubin Total 0.5 mg/dL (0.2-1.0); Globulin 3.1 g/dL (2.3-3.5); Magnesium 1.7 mg/dL (1.6-2.4); Potassium 3.7 mEq/L (3.5-5.1); Protein, Total 6.1 g/dL (6.4-8.2); Troponin High Sensitivity 9.3 pg/mL (<58.9)
--- NOTE | 2024-03-02 12:27 | RAD REPORT ---
EXAM DESCRIPTION: RADChest Single View03/02/2024 12:19 pm CLINICAL HISTORY: shortness of breath COMPARISON: Chest Single View dated 12/20/2023; Chest Single View dated 12/19/2023; Chest Pa And Lat (2 Views) dated 02/03/2023; Chest Single View dated 11/13/2022 TECHNIQUE: Portable AP view of the chest. FINDINGS: Right chest wall port catheter and left atrial appendage occlusion device in place. Slight ly decreased inspiratory effort limits evaluation. The lungs are clear. No pneumothorax or effusion. The cardiomediastinal contours are unremarkable. IMPRESSION: No acute cardiopulmonary process.
--- NOTE | 2024-03-02 12:54 | RAD REPORT ---
EXAM DESCRIPTION: CT - Chest For Pe Angio - 03/02/2024 12:41 pm CLINICAL HISTORY: sob COMPARISON: 2019 TECHNIQUE: Dynamically enhanced axial 3 mm thick images of the chest were obtained during administra tion of 100 mL Isovue 370 IV contrast. Coronal and oblique reconstruction images were generated and r eviewed. Exam utilizes a protocol for optimal evaluation of pulmonary arterial tree. Maximum intensity projections 3D imaging was utilized All CT scans are performed using dose optimization technique as appropriate and may include automated exposure control or mA/KV adjustment according to patient size. FINDINGS: A pulmonary embolus is not seen. A thoracic aortic aneurysm is not noted. A pleural effusion is not seen. A pericardial effusion is not seen. Mild bilateral peripheral ground-glass opacities The most inferior slices demonstrate calcification presumably the right adrenal gland probably relate d to prior infection or bleed IMPRESSION: Negative for a pulmonary embolism. Mild bilateral peripheral around grafts opacities bilaterally probably pneumonitis
--- NOTE | 2024-03-02 13:08 | RAD REPORT ---
EXAM DESCRIPTION: USExtrem Venous W Compress Bil03/02/2024 12:55 pm CLINICAL HISTORY: Leg pain COMPARISON: 2022 FINDINGS: The common femoral, superficial femoral, greater saphenous, popliteal and posterior tibial veins bilaterally are compressible and demonstrate augmentation. Doppler demonstrates good flow. Grayscale, color and spectral analysis performed on all vessels IMPRESSION: No evidence of deep venous thrombosis involving either lower extremity.
--- NOTE | 2024-03-02 13:49 | ER ---
Nurse's Notes [facility] Name: Lydia Hanson Age: 63 yrs Sex: Female : 1960 Arrival Date: 03/02/2024 Time: 11:18 Bed 6 Private MD: Diagnosis: Pain in left lower leg;Pain in right lower leg;Pain in left arm;Pain in right arm;Shortness of breath Presentation: 03/02 11:37 Chief complaint: Muscle cramping in both arms and SOB x 2-3 days. Coronavirus screen: hb Client presents with at least one sign or symptom that may indicate coronavirus-19. Provider contacted for isolation considerations. Ebola Screen: No symptoms or risks identified at this time. Initial Sepsis Screen: Does the patient meet any 2 criteria? No. Patient's initial sepsis screen is negative. Does the patient have a suspected source of infection? No. Patient's initial sepsis screen is negative. Risk Assessment: Do you want to hurt yourself or someone else? Patient reports no desire to harm self or others. Onset of symptoms was February 29, 2024. 11:37 Method Of Arrival: Ambulatory 11:37 Acuity: RIA 2 hb Triage Assessment: 11:38 General: Appears in no apparent distress. uncomfortable, Behavior is calm, cooperative. hb Pain: Pain currently is 6 out of 10 on a pain scale. Neuro: Level of Consciousness is awake, alert, obeys commands, Oriented to person, place, time, situation. Cardiovascular: Patient's skin is warm and dry. Respiratory: Reports shortness of breath at rest on exertion Onset: The symptoms/episode began/occurred 2-3 days, the patient has moderate shortness of breath. Musculoskeletal: Reports muscle cramping in both arms. Historical: - Allergies: 11:38 Adhesives; hb 11:38 CEPHALOSPORINS; hb 11:38 Codeine; hb 11:38 PENICILLINS; hb 11:38 TETRACYCLINES; hb - PMHx: 11:38 CKD; Depression; Hyperlipidemia; Hypertension; L hip replacement; narcolepsy; Sleep hb Apnea; Thyroid problem; V-tach; - PSHx: 11:38 Cholecystectomy; hysterectomy; hb - Immunization history:: Adult Immunizations up to date. - Infectious Disease History:: Denies. - Social history:: Smoking status: Patient denies any tobacco usage or history of. Screenin:01 [facility] ED Fall Risk Assessment (Adult) History of falling in the last 3 months, ld2 including since admission No falls in past 3 months (0 pts) Confusion or Disorientation No (0 pts) Intoxicated or Sedated No (0 pts) Impaired Gait Yes (1 pt) Mobility Assist Device Used Yes (1 pt) Altered Elimination No (0 pt) Score/Fall Risk Level 0 - 2 = Low Risk Oriented to surroundings, Maintained a safe environment, Educated pt \\T\\ family on fall prevention, incl call for assistance when getting out of bed, Assessed \\T\\ reinforced patient's understanding of fall precautions, Provided non-skid footwear, Hourly rounding (assess needs \\T\\ fall precautionary measures) done, Used ambulatory aids as needed (educated on \\T\\ assisted with). Abuse screen: Denies threats or abuse. Denies injuries from another. Nutritional screening: No deficits noted. Tuberculosis screening: No symptoms or risk factors identified. Assessment: 11:30 General: Appears in no apparent distress. uncomfortable, Behavior is calm, cooperative. rs5 Pain: Complains of pain in left lower leg Pain currently is 3 out of 10 on a pain scale. Quality of pain is described as aching, Is continuous. Neuro: Level of Consciousness is awake, alert, obeys commands, Oriented to person, place, time, situation. Cardiovascular: Rhythm is regular. Respiratory: Airway is patent Respiratory effort is even, unlabored, Respiratory pattern is regular, symmetrical, Respiratory: Reports shortness of breath on exertion. GI: : No signs and/or symptoms were reported regarding the genitourinary system. EENT: No signs and/or symptoms were reported regarding the EENT system. Derm: Skin is intact, Skin is pink, warm \\T\\ dry. 4 inch laceration noted on pt's left rondon. no redness, active bleeding or drainage noted. Pt states "I fell about ten days ago from a golf cart and I cut my leg". 11:30 Musculoskeletal: Range of motion: intact in all extremities, Pt states "my arms and rs5 legs have been cramping intermittently ". 12:35 Reassessment: Patient and/or family updated on plan of care and expected duration. Pain rs5 level reassessed. Patient is alert, oriented x 3, equal unlabored respirations, skin warm/dry/pink. 12:58 Pain: Complains of pain in left leg Pain currently is 5 out of 10 on a pain scale. ld2 Quality of pain is described as aching. Neuro: Level of Consciousness is awake, alert, obeys commands, Oriented to person, place, time, Cardiovascular: Reports shortness of breath, Heart tones S1 S2 present Capillary refill < 3 seconds in bilateral fingers. Respiratory: Reports shortness of breath at rest on exertion Airway is patent Trachea midline Respiratory effort is even, unlabored, Respiratory pattern is regular, symmetrical, Breath sounds are clear bilaterally. Pt states having SOB x2-3 days, states SOB is intermittent and worse with exertion. Denies CP, cough, or fever. GI: No deficits noted. No signs and/or symptoms were reported involving the gastrointestinal system. Derm: Skin is intact, pt has laceration to left lower leg with sutures in place x14 days. Pt denies drainage but states having pain to area with movement. Musculoskeletal: No deficits noted. No signs and/or symptoms reported regarding the musculoskeletal system. 13:01 Reassessment: No changes from previously documented assessment. rs5 13:32 Reassessment: No changes from previously documented assessment. rs5 Vital Signs: 11:37 BP 169 / 96; Pulse 119; Resp 22; Temp 97.6(TE); Pulse Ox 99% on R/A; Weight 97.52 kg; hb Height 5 ft. 7 in. ; Pain 6/10; 13:02 BP 143 / 88; Pulse 99; Resp 20; Pulse Ox 100% on R/A; Pain 0/10; ld2 13:19 BP 138 / 74; Pulse 85; Resp 18; Pulse Ox 97% on R/A; ph 13:58 BP 138 / 78; Pulse 79; Resp 18; Temp 98.4(O); Pulse Ox 98% on R/A; Pain 0/10; ld2 11:37 Body Mass Index 33.67 (97.52 kg, 170.18 cm) hb 11:37 Pain Scale: Adult hb 13:02 Pain Scale: Adult ld2 13:58 Pain Scale: Adult ld2 Arlet Coma Score: 13:02 Eye Response: spontaneous(4). Motor Response: obeys commands(6). Verbal Response: ld2 oriented(5). Total: 15. 13:58 Eye Response: spontaneous(4). Motor Response: obeys commands(6). Verbal Response: ld2 oriented(5). Total: 15. ED Course: 11:21 Patient arrived in ED. im 11:27 Carlos Rios DO is Attending Physician. ms3 11:28 Dustin Jin, RN is Primary Nurse. rs5 11:38 Triage completed. hb 11:38 Arm band placed on. hb 11:39 Client placed on continuous cardiac and pulse oximetry monitoring. NIBP monitoring hb applied. pilot boat deckhand on. Pulse ox on. NIBP on. 12:00 Note: US delayed due to pt getting stitches. lc6 12:00 Basic Metabolic Panel Sent. ld2 12:00 CBC with Diff Sent. ld2 12:00 D-Dimer Sent. ld2 12:00 LFT's Sent. ld2 12:00 Magnesium Sent. ld2 12:00 NT PRO-BNP Sent. ld2 12:00 Troponin HS Sent. ld2 12:01 No apparent distress. Resting quietly. Awaiting lab results. ld2 12:01 Inserted saline lock: 20 gauge in right antecubital area, using aseptic technique. ld2 Blood collected. 12:21 XRAY Chest (1 view) In Process Unspecified. EDMS 12:43 CT Chest For PE Angio In Process Unspecified. EDMS 12:57 US Extremity Venous W Compression Elbert In Process Unspecified. EDMS 13:01 No provider procedures requiring assistance completed. rs5 13:02 No apparent distress. Resting quietly. ld2 13:20 Patient has correct armband on for positive identification. Placed in gown. Bed in low ph position. Call light in reach. Side rails up X 1. 13:48 Joshua Garcia MD is Referral Physician. ms3 13:58 IV discontinued, intact, bleeding controlled, No redness/swelling at site. Pressure ld2 dressing applied. Administered Medications: No medications were administered Medication: 13:01 VIS not applicable for this client. rs5 Outcome: 13:49 Discharge ordered by . ms3 13:50 Discharged to home ambulatory, rs5 13:50 Condition: stable 13:50 Discharge instructions given to patient, family, Instructed on discharge instructions, follow up and referral plans. Demonstrated understanding of instructions, follow-up care, 13:59 Patient left the ED. ld2 Signatures: Dispatcher [employer] EDZhane Perez RN RN Rolanda Darden RN RN hb Riso, Carlos, DO DO ms3 Dustin Jin RN RN rs5 James Woodruff 6 Patsy Carranza Lupe, RN RN ld2 Corrections: (The following items were deleted from the chart) 11:43 11:37 BP 169 / 96; Pulse 119bpm; Resp 22bpm; Pulse Ox 99% RA; Temp 97.6F Temporal; Pain hb 04/19, Adult; hb
--- NOTE | 2024-03-02 13:49 | EDPHYS ---
Physician Documentation [facility] Name: Lydia Hanson Age: 63 yrs Sex: Female : 1960 Arrival Date: 03/02/2024 Time: 11:18 Bed 6 Private MD: ED Physician Carlos Rios HPI: 03/02 13:50 This 63 yrs old Female presents to ER via Ambulatory with complaints of Muscle ms3 Cramping, Shortness Of Breath. 13:50 63-year-old female with past medical history of CKD, depression, hyperlipidemia, ms3 hypertension, narcolepsy, sleep apnea presents to the emergency department 2 days of bilateral arm pain and lower extremity pain. Patient states her discomfort is 5/10. Patient endorses shortness of breath. Patient states 14 days ago she had a left lower extremity laceration repaired and sutures were partially removed at her primary care physician's office. Patient states she was instructed to come to the emergency department by her primary care physician's office today and while in the emergency department should have her sutures removed. Historical: - Allergies: 11:38 Adhesives; hb 11:38 CEPHALOSPORINS; hb 11:38 Codeine; hb 11:38 PENICILLINS; hb 11:38 TETRACYCLINES; hb - PMHx: 11:38 CKD; Depression; Hyperlipidemia; Hypertension; L hip replacement; narcolepsy; Sleep hb Apnea; Thyroid problem; V-tach; - PSHx: 11:38 Cholecystectomy; hysterectomy; hb - Immunization history:: Adult Immunizations up to date. - Infectious Disease History:: Denies. - Social history:: Smoking status: Patient denies any tobacco usage or history of. ROS: 13:50 Constitutional: Negative for fever, and chills. Cardiovascular: Negative for chest ms3 pain, and palpitations. Respiratory: Positive for shortness of breath Abdomen/GI: Negative for abdominal pain, nausea, vomiting, diarrhea, and constipation, Exam: 13:50 Constitutional: This is a well developed, well nourished patient who is awake, alert, ms3 and in no acute distress. Head/Face: Normocephalic, atraumatic. Neck: Trachea midline, no cervical lymphadenopathy. Supple, full range of motion without nuchal rigidity, or vertebral point tenderness. No Meningismus. Chest/axilla: Normal chest wall appearance and motion. Nontender with no deformity. Cardiovascular: Regular rate and rhythm with a normal S1 and S2. No gallops, murmurs, or rubs. Normal PMI, no JVD. No pulse deficits. Respiratory: Lungs have equal breath sounds bilaterally, clear to auscultation and percussion. No rales, rhonchi or wheezes noted. No increased work of breathing, no retractions or nasal flaring. Abdomen/GI: Soft, non-tender, with normal bowel sounds. No distension or tympany. No guarding or rebound. No evidence of tenderness throughout. Skin: U-shape laceration of left lower extremity with [address] MS/ Extremity: Pulses equal, no cyanosis. Neurovascular intact. Full, normal range of motion. 13:55 ECG was reviewed by the Attending Physician. ms3 Vital Signs: 11:37 BP 169 / 96; Pulse 119; Resp 22; Temp 97.6(TE); Pulse Ox 99% on R/A; Weight 97.52 kg; hb Height 5 ft. 7 in. ; Pain 6/10; 13:02 BP 143 / 88; Pulse 99; Resp 20; Pulse Ox 100% on R/A; Pain 0/10; ld2 13:19 BP 138 / 74; Pulse 85; Resp 18; Pulse Ox 97% on R/A; ph 13:58 BP 138 / 78; Pulse 79; Resp 18; Temp 98.4(O); Pulse Ox 98% on R/A; Pain 0/10; ld2 11:37 Body Mass Index 33.67 (97.52 kg, 170.18 cm) hb 11:37 Pain Scale: Adult hb 13:02 Pain Scale: Adult ld2 13:58 Pain Scale: Adult ld2 Arlet Coma Score: 13:02 Eye Response: spontaneous(4). Motor Response: obeys commands(6). Verbal Response: ld2 oriented(5). Total: 15. 13:58 Eye Response: spontaneous(4). Motor Response: obeys commands(6). Verbal Response: ld2 oriented(5). Total: 15. Procedures: 13:50 Suture/Staple removal: Removed 19 sutures, from left leg, site appears reddened, ms3 Patient tolerated well. MDM: 11:50 Patient medically screened. ms3 13:50 Differential diagnosis: Anemia pulmonary edema, Pulmonary Embolism. Data reviewed: ms3 vital signs, nurses notes, lab test result(s), and as a result, I will discharge patient. Independent interpretation of the following test(s) in the Emergency Department EKG: See my EKG interpretation above quality assurance monitor chassis: rate is 82 beats/min, Rhythm is normal sinus rhythm, with no ectopy, Interpretation: normal rate, normal rhythm. Care significantly affected by the following chronic conditions: Hypertension, Chronic Kidney Disease. Counseling: I had a detailed discussion with the patient and/or guardian regarding the historical points, exam findings, and any diagnostic results supporting the discharge/admit diagnosis, lab results, radiology results, the need for outpatient follow up, to return to the emergency department if symptoms worsen or persist or if there are any questions or concerns that arise at home. ED course: Discussed labs and imaging with patient. Patient to follow-up with Dr. Garcia and 2 to 3 days. Patient understands and agrees with plan. All questions were answered. Return precautions discussed include worsening symptoms, or any other concerns. On reevaluation patient is alert and oriented x 4, no apparent distress, nontoxic-appearing, ambulatory in emergency room, speaking full sentences. 03/02 11:50 Order name: Basic Metabolic Panel; Complete Time: 12:27 ms3 03/02 11:50 Order name: CBC with Diff; Complete Time: 12: ms3 03/02 11:50 Order name: D-Dimer; Complete Time: 12:27 ms3 03/02 11:50 Order name: LFT's; Complete Time: 12:27 ms3 03/02 11:50 Order name: Magnesium; Complete Time: 12:27 ms3 03/02 11:50 Order name: NT PRO-BNP; Complete Time: 12:27 ms3 03/02 11:50 Order name: Troponin HS; Complete Time: 12:27 ms3 03/02 11:50 Order name: XRAY Chest (1 view); Complete Time: 12:27 ms3 03/02 11:50 Order name: US Extremity Venous W Compression [place]bert; Complete Time: 13:23 ms3 03/02 12:29 Order name: CT Chest For PE Angio; Complete Time: 13:23 ms3 03/02 11:50 Order name: Cardiac monitoring; Complete Time: 12:00 3 03/02 11:50 Order name: EKG - Nurse/Tech; Complete Time: 12:52 ms3 03/02 11:50 Order name: IV Saline Lock; Complete Time: 12:00 ms3 03/02 11:50 Order name: Labs collected and sent; Complete Time: 12:00 ms3 03/02 11:50 Order name: O2 Per Protocol; Complete Time: 12:00 ms3 03/02 11:50 Order name: O2 Sat Monitoring; Complete Time: 12:00 ms3 EC:55 Rate is 104 beats/min. Rhythm is regular. QRS [place] is Normal. [place] interval is normal. ms3 QRS interval is normal. Clinical impression: Sinus tachycardia. Interpreted by me. Reviewed by me. Administered Medications: No medications were administered Disposition Summary: 03/02/24 13:49 Discharge Ordered Notes: Location: Home ms3 Condition: Stable ms3 Diagnosis - Pain in left lower leg ms3 - Pain in right lower leg ms3 - Pain in left arm ms3 - Pain in right arm ms3 - Shortness of breath ms3 Followup: ms3 - With: Joshua Garcia MD - When: 2 - 3 days - Reason: Recheck today's complaints Discharge Instructions: - Discharge Summary Sheet ms3 - Musculoskeletal Pain ms3 - Shortness of Breath, Adult ms3 Forms: - Medication Reconciliation Form ms3 - Antibiotic Education ms3 - Prescription Opioid Use ms3 - Patient Portal Instructions ms3 - Leadership Thank You Letter ms3 Signatures: Dispatcher [employer] EDRolanda Burns, RN RN Carlos Moore DO DO ms3 Corrections: (The following items were deleted from the chart) 11:50 11:50 BASIC METABOLIC PANEL+C.LAB.BRZ ordered. EDMS EDMS 11:50 11:50 CBC+H.LAB.BRZ ordered. EDMS EDMS 11:50 11:50 D-DIMER+COAG.LAB.BRZ ordered. EDMS EDMS 11:50 11:50 HEPATIC FUNCTION+C.LAB.BRZ ordered. EDMS EDMS 11:50 11:50 MAGNESIUM+C.LAB.BRZ ordered. EDMS EDMS 11:50 11:50 PROBNP+C.LAB.BRZ ordered. EDMS EDMS 11:50 11:50 Troponin High Sensitivity+C.LAB.BRZ ordered. EDMS EDMS 11:51 11:51 Chest Single View+RAD.RAD.BRZ ordered. EDMS EDMS 11:51 11:51 Extrem Venous W Compression Elbert+US.RAD.BRZ ordered. EDMS EDMS
[2024-03-02 14:36] VITALS: BP 138/78; TEMP 98.4; O2SAT 98
== END 2024-03-02 13:59 | disposition home or self-care (01) ==
LOC: ER 11:18
DX: M79.662 Pain in left lower leg (principal); M79.661 Pain in right lower leg; M79.602 Pain in left arm; M79.601 Pain in right arm; R06.02 Shortness of breath; Z88.0 Allergy status to penicillin; Z88.1 Allergy status to other antibiotic agents; Z88.3 Allergy status to other anti-infective agents; Z88.5 Allergy status to narcotic agent; Z91.048 Other nonmedicinal substance allergy status
CPT/HCPCS: 85025; 80048; 36415; 83735; 85379; 80076; 84484; 83880; 71275; 71045; 93970; Q9967; 93005

== ENCOUNTER 2024-04-19 01:54 | Inpatient (IN) | payer BC, OTHER ==
[2024-04-19 03:34] LABS: SARS-CoV-2 Antigen CONTROL BLUE LINE VIS/BG OK; SARS-CoV-2 Antigen Rapid Res Negative (Negative)
[2024-04-19] MEDS ORDERED: NA CHLORIDE 0.9% 1,000 ML ONE ×2 (04:22→05:40)
[2024-04-19 04:45] LABS: Albumin 3.5 g/dL (3.4-5.0); Albumin/Globulin Ratio 1.3 (1.1-1.8); Bilirubin Total 0.4 mg/dL (0.2-1.0); Globulin 2.7 g/dL (2.3-3.5); Protein, Total 6.2 g/dL (6.4-8.2)
[2024-04-19 05:35] LABS: Absolute Eosinophils 0.1 K/uL (0-0.5); Absolute Monocytes 0.6 K/uL (0.1-1.3); Absolute Neutrophil 3.3 K/uL (1.8-8.0); Basophils % 0.5 % (0-1.3); Eosinophils % 1.4 % (0-4.4); Hematocrit 30.2 % (36.0-45.0); Lymphocytes % 33.2 % (15.3-44.8); MCH 30.5 pg (27.0-35.0); MCV 92.4 fL (80-100); MPV 7.8 fL (7.6-11.3); Monocytes % 9.4 % (3.3-12.3); Neutrophils % 55.5 % (41.7-73.7); Platelets 156 thou/uL (152-406); RBC Red Blood Cell Count 3.27 M/uL (3.86-4.86); Red Cell Distribution Width 18.4 % (12.1-15.2)
[2024-04-19 05:44] LABS: Renal Epithelial <5 /HPF (None Seen); Specific Gravity 1.028 (1.005-1.030); Sqamous Epithelial <5 /HPF (None Seen); Urine Bacteria None Seen /HPF (<20); Urine Bilirubin NEGATIVE (Negative); Urine Blood 3+ (Negative); Urine Clarity Extremely Turbid (Clear); Urine Color Yellow (Yellow); Urine Culture Reflex Order REFLEXED; Urine Glucose NEGATIVE (Negative); Urine Ketones TRACE (Negative); Urine Microscopic Reflex YN ORDER UMIC; Urine Mucus Slight /HPF (None Seen); Urine Nitrite NEGATIVE (Negative); Urine Protein 1+ (Negative); Urine RBC >50 /HPF (None Seen); Urine Urobilinogen 1+ (Normal); Urine WBC >50 /HPF (<5); Urine WBC Clump Rare /HPF (None Seen); Urine pH 5.5 (5.0-7.0)
[2024-04-19 05:47] LABS: PT Prothrombin Time 11.5 SECONDS (9.5-12.5); Protime INR 1.05
[2024-04-19 05:48] LABS: PTT, Activated Partial Thromb 25.7 SECONDS (24.3-36.9)
[2024-04-19] MEDS ORDERED: Levofloxacin500mg IV 0 MG/0 ML BAG IV ONE (05:57)
[2024-04-19] MEDS ORDERED: VANCOMYCIN 1 GM/VIAL ONE (05:57)
[2024-04-19] MEDS ORDERED: NA CHLORIDE 0.9% 250 ML ONE (05:58)
[2024-04-19] MEDS ORDERED: Levofloxacin500mg IV 500 MG/100 ML BAG IV ONE (06:00)
--- NOTE | 2024-04-19 06:39 | EDPHYS ---
Physician Documentation [facility] Name: Lydia Hanson Age: 63 yrs Sex: Female : 1960 Arrival Date: 04/19/2024 Time: 01:54 Bed 5 Private MD: Joshua Garcia ED Physician Michi Diaz HPI: 04/19 02:44 This 63 yrs old Female presents to ER via Wheelchair with complaints of Shortness Of rn Breath. 02:44 The patient has shortness of breath with light activity. rn 02:46 Onset: The symptoms/episode began/occurred 2 day(s) ago. Duration: The symptoms are rn intermittent. The patient's shortness of breath is aggravated by exertion, light activity, is alleviated by rest. Severity of symptoms: At their worst the symptoms were moderate in the emergency department the symptoms are unchanged. The patient has not experienced similar symptoms in the past. The patient has not recently seen a physician. Historical: - Allergies: 02:16 Adhesives; kb3 02:16 CEPHALOSPORINS; kb3 02:16 Codeine; kb3 02:16 PENICILLINS; kb3 02:16 TETRACYCLINES; kb3 - PMHx: 02:16 CKD; Depression; Hyperlipidemia; Hypertension; L hip replacement; narcolepsy; Sleep kb3 Apnea; Thyroid problem; V-tach; Multiple Falls (hysterectomy); - PSHx: 02:16 Cholecystectomy; hysterectomy; kb3 - Immunization history:: Adult Immunizations up to date, Client reports receiving the 2nd dose of the Covid vaccine, Last tetanus immunization: up to date Pneumococcal vaccine is up to date, Flu vaccine is up to date. - Infectious Disease History:: Denies. - Social history:: Smoking status: Patient denies any tobacco usage or history of. - Family history:: not pertinent. - Hospitalizations: : No recent hospitalization is reported. ROS: 02:46 Constitutional: Negative for fever, chills, and weight loss, Eyes: Negative for injury, rn pain, redness, and discharge, Cardiovascular: Negative for chest pain Respiratory: Negative for cough, wheezing, and pleuritic chest pain Abdomen/GI: Negative for abdominal pain, nausea, vomiting, diarrhea, and constipation, Back: Negative for injury and pain, : Negative for injury, bleeding, discharge, and swelling, MS/Extremity: Positive for wounds to bilateral lower extremities with serosanguineous drainage. Neuro: Positive for generalized weakness Exam: 02:48 Constitutional: This is a well developed, well nourished patient who is awake, alert, rn and in no acute distress. ENT: Dry mucous membranes Cardiovascular: Tachycardic, regular. No pulse deficits. Respiratory: Speaking full sentences, unlabored. No increased work of breathing, no retractions or nasal flaring. Abdomen/GI: Soft, nontender Skin: Left pretibial region with purulent wound, mild surrounding erythema MS/ Extremity: Pulses equal, no cyanosis. Neuro: Awake and alert, GCS 15 03:29 ECG was reviewed by the Attending Physician. rn Vital Signs: 02:10 BP 87 / 53; Pulse 131; Resp 20; Temp 98; Pulse Ox 100% ; Weight 97.52 kg; Height 5 ft. kb3 7 in. ; Pain 8/10; 02:30 BP 95 / 42; Pulse 114; Resp 15 S; Pulse Ox 98% on R/A; jw7 03:30 BP 95 / 53; Pulse 111; Resp 19 S; Pulse Ox 98% on R/A; ha1 04:00 BP 92 / 54; Pulse 109; Resp 17 S; Pulse Ox 99% on R/A; ha1 04:50 BP 108 / 66; Pulse 112; Resp 17 S; Pulse Ox 97% on R/A; ha1 05:00 BP 85 / 49; Pulse 106; Resp 20 S; Pulse Ox 97% on R/A; jw7 05:03 BP 108 / 66; rn 06:00 BP 91 / 40; Pulse 100; Resp 17 S; Pulse Ox 96% on R/A; jw7 06:40 BP 88 / 60; Pulse 96; Resp 17 S; Pulse Ox 100% on R/A; ha1 07:18 BP 104 / 55; Pulse 93; Resp 18 S; Pulse Ox 100% on R/A; kc6 02:10 Body Mass Index 33.67 (97.52 kg, 170.18 cm) kb3 02:10 Pain Scale: Adult kb3 MDM: 02:04 Patient medically screened. rn 05:45 ED course: Patient with acute kidney damage identified. No source of infection rn identified at this time. Ordered broad-spectrum antibiotics given elevated lactate as well as borderline hypotension and tachycardia.. 06:35 Differential diagnosis: pneumonia, Pneumothorax Psychogenic pulmonary edema, UTI, rn cellulitis. Data reviewed: vital signs, nurses notes, lab test result(s), EKG, radiologic studies, plain films, and as a result, I will admit patient. Consideration of Admission/Observation Patient was admitted/placed on observation. Escalation of care including admission/observation considered. Management of patient was discussed with the following: Primary Care Provider: Discussed case with Dr. Garcia, is going to come see patient, wants patient admitted to ICU. Care significantly affected by the following chronic conditions: Hypertension, Chronic Kidney Disease. Counseling: I had a detailed discussion with the patient and/or guardian regarding the historical points, exam findings, and any diagnostic results supporting the discharge/admit diagnosis, lab results, radiology results, the need for further work-up and treatment in the hospital. Response to treatment: the patient's symptoms have mildly improved after treatment, and as a result, I will admit patient. 06:38 ED course: Ordered total of 2 L bolus, is not quite 30/kg bolus but patient has history rn of CKD and renal insufficiency at this time, there is concern for possible volume overload. Patient has a Port-A-Cath, after this final bolus if blood pressure does not improve we will start on pressor for blood pressure support. Has had 1 blood pressure in the 80s systolic. Does not currently qualify for septic shock at this time.. 06:39 ED course: I personally spent 35 minutes engaged in work directly related to the rn individual patient's care. This does not include any time spent performing procedures. The patient has been deemed critically ill because of severe sepsis, borderline hypotension, multiple infections, acute renal failure, and admission to ICU.. 07:06 ED course: Current blood pressure is 88/60. That makes 2 blood pressures under 90. rn Patient now meets shock criteria. Given 2 L bolus, will not give 30/kg bolus due to CKD and concern for possible volume overload. Levophed started. Sepsis reevaluation completed.. 07:16 ED course: Blood pressure actually responded to final bolus. Blood pressure currently rn 104/55. Will hold off on Levophed and defer to Dr. Garcia during hospitalization if pressure trends downward. Sepsis reevaluation complete. 04/19 02:13 Order name: Blood Culture Adult (2) rn 04/19 02:13 Order name: CBC with Diff; Complete Time: 05:45 rn 06/10 02:13 Order name: CMP; Complete Time: 05:02 rn 04/19 02:13 Order name: Lactate w/ 2H reflex if indic.; Complete Time: 05:02 rn 04/19 02:13 Order name: Protime (+inr); Complete Time: 05:57 rn 04/19 02:13 Order name: Ptt, Activated; Complete Time: 05:57 rn 04/19 02:13 Order name: Urinalysis w/ reflexes; Complete Time: 05:57 rn 04/19 02:13 Order name: SARS RAPID; Complete Time: 03:45 rn 04/19 02:13 Order name: Flu; Complete Time: 03:45 rn 04/19 05:49 Order name: Urine Culture EDCT 04/19 08:00 Order name: Lactate Sepsis 2 HR Follow-up EDCT 04/19 02:13 Order name: Chest Single View XRAY rn 04/19 02:13 Order name: Accucheck; Complete Time: 04:37 rn 04/19 02:13 Order name: Cardiac monitoring; Complete Time: 02:40 rn 04/19 02:13 Order name: EKG - Nurse/Tech; Complete Time: 02:40 rn 04/19 02:13 Order name: IV Saline Lock - Large Bore; Complete Time: 04:37 rn 04/19 02:13 Order name: Labs collected and sent; Complete Time: 04:37 rn 04/19 02:13 Order name: O2 Per Protocol; Complete Time: 02:40 rn 04/19 02:13 Order name: O2 Sat Monitoring; Complete Time: 02:40 rn 04/19 02:13 Order name: Vital Signs; Complete Time: 02:40 rn 04/19 04:40 Order name: Misc. Order: recollect labs; Complete Time: 05:39 kmf EC:29 Rate is 125 beats/min. Rhythm is regular. QRS [place] is Normal. [place] interval is normal. rn QRS interval is normal. QT interval is normal. No Q waves. T waves are Normal. No ST changes noted. Clinical impression: Sinus tachycardia. Interpreted by me. Reviewed by me. Administered Medications: 04:05 Drug: NS 0.9% IV 500 ml IV at bolus once Route: IV; Rate: bolus; Site: right forearm; ha1 07:00 Follow up: Response: No adverse reaction; IV Status: Completed infusion; IV Intake: jw7 500ml 04:05 Drug: NS 0.9% IV 500 ml IV at bolus once Route: IV; Rate: bolus; Site: right forearm; ha1 07:01 Follow up: Response: No adverse reaction; IV Status: Completed infusion; IV Intake: jw7 500ml 05:50 Drug: NS 0.9% IV 500 ml IV at bolus once Route: IV; Rate: bolus; Site: left forearm; ha1 06:00 Drug: levofloxacin IVPB 500 mg 100 ml IVPB once over 60 mins Volume: 100 ml; Route: ha1 IVPB; Infused Over: 60 mins; Site: left forearm; 07:01 Follow up: Response: No adverse reaction; IV Status: Completed infusion; IV Intake: jw7 100ml 06:40 Drug: NS 0.9% IV 500 ml IV at bolus once Route: IV; Rate: bolus; Site: left forearm; ha1 07:17 Not Given (Duplicate Order): norepinephrine0.1 mcg/kg/min IV at calculated rate See rn Administration Instructions; (Standard concentration 4 mg / 250 mL D5W); Recommended max rate 3 mcg/kg/min; Titrate 0.05 mcg/kg/min as often as every 5 minutes to achieve goal (see titration policy); Goal parameter MAP greater than 65 mmHg. 07:37 Drug: vancoMYCIN IVPB 1 grams IVPB once over 2 hrs Route: IVPB; Infused Over: 2 hrs; kc6 Site: right forearm; Disposition: 06:39 Critical Care:. rn Disposition Summary: 04/19/24 06:38 Hospitalization Ordered Notes: Hospitalization Status: Inpatient Admission rn Provider: Joshua Garcia rn Location: Intensive Care Unit rn Condition: Fair rn Problem: new rn Symptoms: have improved rn Bed/Room Type: Standard rn Room Assignment: 4-(04/19/24 06:53) km Diagnosis - UTI/ Urinary tract infection, site not specified rn - Cellulitis of left lower limb rn - Severe sepsis without septic shock rn Forms: - Medication Reconciliation Form rn - SBAR form rn - Leadership Thank You Letter international logistics analyst time excluding procedures: 06:39 Critical care time: Bedside Care: 30 minutes, Consultation: 5 minutes. Total time: 35 rn minutes Signatures: Dispatcher [employer] EDMichi Calhoun MD MD rn Ayala, Heidy, RN RN Noa Hackettlyn, RN RN kc6 Kerrie Waite, RN RN kb3 Maude Van f Paula Kaba RN jw7 Corrections: (The following items were deleted from the chart) 02:14 02:14 Chest Single View+RAD.RAD.BRZ ordered. EDMS EDMS 02:14 02:14 SARS-COV-2 Antigen Rapid+I.LAB.BRZ ordered. EDMS EDMS 02:14 02:14 Influenza Screen (A \T\ B)+BA.LAB.BRZ ordered. EDMS EDMS 05:58 02:48 Constitutional: This is a well developed, well nourished patient who is awake, rn alert, and in no acute distress. ENT: Dry mucous membranes Cardiovascular: Tachycardic, regular. No pulse deficits. Respiratory: Speaking full sentences, unlabored. No increased work of breathing, no retractions or nasal flaring. Abdomen/GI: Soft, nontender MS/ Extremity: Pulses equal, no cyanosis. Neuro: Awake and alert, GCS 15 rn 06:53 06:38 rn kmf
--- NOTE | 2024-04-19 06:39 | ER ---
Nurse's Notes [facility] Name: Lydia Hanson Age: 63 yrs Sex: Female : 1960 Arrival Date: 04/19/2024 Time: 01:54 Bed 5 Private MD: Joshua Garcia Diagnosis: UTI/ Urinary tract infection, site not specified;Cellulitis of left lower limb;Severe sepsis without septic shock Presentation: 04/19 02:10 Chief complaint: Patient states: Pt reports feeling SOB x2 days with posterior neck kb3 pain since last night. Pt reports that her HR has been very low and her BP has been very high. Pt also reports bilateral lower leg wounds that Dr Garcia has been monitoring are draining serosanguinous fluid. Coronavirus screen: Vaccine status: Patient reports receiving the 2nd dose of the covid vaccine. Client denies travel out of the [place] in the last 14 days. Ebola Screen: Patient negative for fever greater than or equal to 101.5 degrees Fahrenheit, and additional compatible Ebola Virus Disease symptoms Patient denies exposure to infectious person. Patient denies travel to an Ebola-affected area in the 21 days before illness onset. Initial Sepsis Screen: Does the patient meet any 2 criteria? Systolic BP < 90 mmHg. HR > 90 bpm. Yes Does the patient have a suspected source of infection? No. Patient's initial sepsis screen is negative. Risk Assessment: Do you want to hurt yourself or someone else? Patient reports no desire to harm self or others. Onset of symptoms was April 17, 2024. 02:10 Method Of Arrival: Wheelchair kb3 02:10 Acuity: RIA 2 kb3 Triage Assessment: 02:16 General: Appears in no apparent distress. Behavior is calm, cooperative. Pain: kb3 Complains of pain in base of the skull and back of neck. Respiratory: Reports shortness of breath Airway is patent Trachea midline Respiratory effort is even, unlabored, Respiratory pattern is regular, Onset: The symptoms/episode began/occurred 2 days, the patient has mild shortness of breath. Musculoskeletal: Reports pain in base of the skull and back of neck. Historical: - Allergies: 02:16 Adhesives; kb3 02:16 CEPHALOSPORINS; kb3 02:16 Codeine; kb3 02:16 PENICILLINS; kb3 02:16 TETRACYCLINES; kb3 - PMHx: 02:16 CKD; Depression; Hyperlipidemia; Hypertension; L hip replacement; narcolepsy; Sleep kb3 Apnea; Thyroid problem; V-tach; Multiple Falls (hysterectomy); - PSHx: 02:16 Cholecystectomy; hysterectomy; kb3 - Immunization history:: Adult Immunizations up to date, Client reports receiving the 2nd dose of the Covid vaccine, Last tetanus immunization: up to date Pneumococcal vaccine is up to date, Flu vaccine is up to date. - Infectious Disease History:: Denies. - Social history:: Smoking status: Patient denies any tobacco usage or history of. - Family history:: not pertinent. - Hospitalizations: : No recent hospitalization is reported. Screenin:09 Abuse screen: Denies threats or abuse. Denies injuries from another. Nutritional ha1 screening: No deficits noted. Tuberculosis screening: No symptoms or risk factors identified. 03:00 [facility] ED Fall Risk Assessment (Adult) History of falling in the last 3 months, jw7 including since admission No falls in past 3 months (0 pts) Confusion or Disorientation No (0 pts) Intoxicated or Sedated No (0 pts) Impaired Gait No (0 pts) Mobility Assist Device Used No (0 pt) Altered Elimination No (0 pt) Score/Fall Risk Level 0 - 2 = Low Risk Oriented to surroundings, Maintained a safe environment, Educated pt \T\ family on fall prevention, incl call for assistance when getting out of bed. Assessment: 02:09 General: Appears uncomfortable, Behavior is cooperative, anxious. Pain: Denies pain. ha1 Neuro: Level of Consciousness is awake, alert, obeys commands, Oriented to person, place, time, situation. Cardiovascular: Reports shortness of breath, Heart tones S1 S2 present Capillary refill < 3 seconds Patient's skin is warm and dry. Rhythm is sinus tachycardia. Respiratory: Airway is patent Respiratory effort is even, unlabored, Respiratory pattern is regular, symmetrical, Breath sounds are clear bilaterally. GI: No signs and/or symptoms were reported involving the gastrointestinal system. Abdomen is round non-distended, obese. : No signs and/or symptoms were reported regarding the genitourinary system. Derm: Wound noted lateral aspect of right calf, right rondon and left rondon of leg Reports wounds. Musculoskeletal: Circulation, motion, and sensation intact. Range of motion: intact in all extremities. 02:25 Reassessment: patient requesting a midline IV . Notified charge nurse. ha1 03:00 Reassessment: Patient and/or family updated on plan of care and expected duration. Pain ha1 level reassessed. Patient is alert, oriented x 3, equal unlabored respirations, skin warm/dry/pink. 04:00 Reassessment: Patient and/or family updated on plan of care and expected duration. Pain ha1 level reassessed. Patient is alert, oriented x 3, equal unlabored respirations, skin warm/dry/pink. Patient states symptoms have improved. 05:00 Reassessment: Patient and/or family updated on plan of care and expected duration. Pain ha1 level reassessed. Patient is alert, oriented x 3, equal unlabored respirations, skin warm/dry/pink. 06:00 Reassessment: Patient and/or family updated on plan of care and expected duration. Pain ha1 level reassessed. Patient is alert, oriented x 3, equal unlabored respirations, skin warm/dry/pink. 07:10 Reassessment: report given to MARITA Patel. ha1 Vital Signs: 02:10 BP 87 / 53; Pulse 131; Resp 20; Temp 98; Pulse Ox 100% ; Weight 97.52 kg; Height 5 ft. kb3 7 in. ; Pain 8/10; 02:30 BP 95 / 42; Pulse 114; Resp 15 S; Pulse Ox 98% on R/A; jw7 03:30 BP 95 / 53; Pulse 111; Resp 19 S; Pulse Ox 98% on R/A; ha1 04:00 BP 92 / 54; Pulse 109; Resp 17 S; Pulse Ox 99% on R/A; ha1 04:50 BP 108 / 66; Pulse 112; Resp 17 S; Pulse Ox 97% on R/A; ha1 05:00 BP 85 / 49; Pulse 106; Resp 20 S; Pulse Ox 97% on R/A; jw7 05:03 BP 108 / 66; rn 06:00 BP 91 / 40; Pulse 100; Resp 17 S; Pulse Ox 96% on R/A; jw7 06:40 BP 88 / 60; Pulse 96; Resp 17 S; Pulse Ox 100% on R/A; ha1 07:18 BP 104 / 55; Pulse 93; Resp 18 S; Pulse Ox 100% on R/A; kc6 02:10 Body Mass Index 33.67 (97.52 kg, 170.18 cm) kb3 02:10 Pain Scale: Adult kb3 ED Course: 02:00 Patient arrived in ED. gm2 02:00 Joshua Garcia MD is Private Physician. gm2 02:04 Michi Diaz MD is Attending Physician. rn 02:09 Patient has correct armband on for positive identification. Placed in gown. Bed in low ha1 position. Call light in reach. Side rails up X 1. 02:16 Triage completed. kb3 02:16 Arm band placed on right wrist. kb3 02:16 Missed attempt(s): 20 gauge in right antecubital area. Bleeding controlled, band aid ha1 applied, catheter tip intact. 02:25 Missed attempt(s): 22 gauge in right forearm. Bleeding controlled, band aid applied, ha1 catheter tip intact. 02:40 Missed attempt(s): 20 gauge in right antecubital area. Bleeding controlled, band aid jw7 applied, catheter tip intact. 02:51 Chest Single View XRAY In Process Unspecified. EDMS 03:00 Provided Education on: Use of Call Light. jw7 03:00 Missed attempt(s): 22 gauge in left antecubital area. Bleeding controlled, band aid jw7 applied, catheter tip intact. 04:00 Inserted saline lock: 24 gauge in right forearm, using aseptic technique. Blood ha1 collected. 04:20 Missed attempt(s): 24 gauge in left forearm. Bleeding controlled, band aid applied, jw7 catheter tip intact. 05:50 Urine Culture Sent. ha1 06:37 Joshua Garcia MD is Hospitalizing Provider. rn 06:58 No provider procedures requiring assistance completed. jw7 07:00 Report received from Ava Caballero RN. kc6 07:00 price clerk on. Pulse ox on. NIBP on. kc6 Administered Medications: 04:05 Drug: NS 0.9% IV 500 ml IV at bolus once Route: IV; Rate: bolus; Site: right forearm; ha1 07:00 Follow up: Response: No adverse reaction; IV Status: Completed infusion; IV Intake: jw7 500ml 04:05 Drug: NS 0.9% IV 500 ml IV at bolus once Route: IV; Rate: bolus; Site: right forearm; ha1 07:01 Follow up: Response: No adverse reaction; IV Status: Completed infusion; IV Intake: jw7 500ml 05:50 Drug: NS 0.9% IV 500 ml IV at bolus once Route: IV; Rate: bolus; Site: left forearm; ha1 06:00 Drug: levofloxacin IVPB 500 mg 100 ml IVPB once over 60 mins Volume: 100 ml; Route: ha1 IVPB; Infused Over: 60 mins; Site: left forearm; 07:01 Follow up: Response: No adverse reaction; IV Status: Completed infusion; IV Intake: jw7 100ml 06:40 Drug: NS 0.9% IV 500 ml IV at bolus once Route: IV; Rate: bolus; Site: left forearm; ha1 07:17 Not Given (Duplicate Order): norepinephrine0.1 mcg/kg/min IV at calculated rate See rn Administration Instructions; (Standard concentration 4 mg / 250 mL D5W); Recommended max rate 3 mcg/kg/min; Titrate 0.05 mcg/kg/min as often as every 5 minutes to achieve goal (see titration policy); Goal parameter MAP greater than 65 mmHg. 07:37 Drug: vancoMYCIN IVPB 1 grams IVPB once over 2 hrs Route: IVPB; Infused Over: 2 hrs; kc6 Site: right forearm; Medication: 07:00 VIS not applicable for this client. jw7 Intake: 07:00 IV: 500ml; Total: 500ml. jw7 07:01 IV: 500ml; Total: 1000ml. jw7 07:01 IV: 100ml; Total: 1100ml. jw7 Outcome: 06:38 Decision to Hospitalize by Provider. rn 08:03 Patient left the ED. ll1 Signatures: Dispatcher [employer] EDMS Michi Diaz MD MD rn Lewis, Lynsay RN RN ll1 Paula Kaba RN RN jw7 Ava Caballero RN RN deja1 Agatha Blake RN RN kc6 Kerrie Waite RN RN kb3 Mitchell, Ginger 2 Corrections: (The following items were deleted from the chart) 02:41 02:00 BP 90 / 57; Pulse 114bpm; Resp 15bpm; Spontaneous; Pulse Ox 98% RA; jw7 jw7 02:45 02:30 BP 90 / 57; Pulse 114bpm; Resp 15bpm; Spontaneous; Pulse Ox 98% RA; jw7 jw7
[2024-04-19] MEDS ORDERED: ACETAMINOPHEN 500 MG TAB PO PRN (08:02)
[2024-04-19] MEDS ORDERED: ONDANSETRON 4 MG/2 ML VIAL IV PRN (08:02)
[2024-04-19 08:23] VITALS: BMI 33.7
[2024-04-19] MEDS: NA CHLORIDE 0.9% 1,000 ML IV SCH (08:56)
[2024-04-19] MEDS: VANCOMYCIN 750 MG in NA CHLORIDE 0.9% 150 ML IVPB ONE (08:57)
[2024-04-19] MEDS: HEPARIN 5000 UNIT/ML 1 ML VIAL SQ SCH (09:11)
[2024-04-19] MEDS: SILVER SULFADIAZINE 1% 25 GM TOP SCH (10:23)
[2024-04-19] MEDS: HEPARIN 500 UNIT/5 ML SYR IV SCH (13:03)
--- NOTE | 2024-04-19 14:00 | RAD REPORT ---
EXAM DESCRIPTION: Chest Single View 04/19/2024 3:33 AM CDT CLINICAL HISTORY: 63 years, Female, DYSPNEA COMPARISON: None FINDINGS: 1 views of the chest was obtained. No prior films are available at this time for compari son. There is normal lung volume. Mediastinum: The cardiomediastinal silhouette appears normal in size and shape. There is a right IJ v enous Port-A-Cath in place. There is implantable loop recorder within the left chest. Lungs: No areas of consolidations or masses are identified. Heart: The heart is normal in size. Thoracic aorta: The thoracic aorta demonstrate to be normal. Pulmonary vasculature: The pulmonary vasculature is normal in distribution. Pleura: The costophrenic angles demonstrate to be sharp. Osseous structures: The bony structures demonstrate to be within normal limits. Other: External EKG leads within the [id number] limits diagnosis. IMPRESSION: No acute cardiopulmonary disease. Right IJ venous Port-A-Cath in place. Electronically signed by: Drew Lai MD 04/19/2024 03:33 AM CDT Due to temporary technical issues with the PACS/Fluency reporting system, reports are being signed by the in house radiologist without review as a courtesy to ensure prompt reporting. The interpreting r adiologist is fully responsible for the content of the report.
[2024-04-19] MEDS: SODIUM OXYBATE PO SCH (21:00)
[2024-04-19] MEDS: ZOLPIDEM TARTRATE 10 MG TABLET PO SCH (21:11)
[2024-04-19] MEDS: HYDROXYCHLOROQUINE 200MG TAB PO SCH (21:11)
[2024-04-19] MEDS: HYDROCODONE/APAP 10/325 TAB PO PRN (21:12)
--- NOTE | 2024-04-20 04:17 | HP ---
Date of Admission: 04/19/2024 Chief Complaint: Shortness of breath, burning on urination, chills, and diarrhea. History Of Present Illness: This is a 63-year-old female patient, who came into emergency room last night with 2 to 3 days' complaints of having shortness of breath, burning on urination, some diarrhea, and chills. She had open wound on the right lower anterior leg, which has healed completely, but lately she is having similar type of wound on the left lower anterior leg. After she was evaluated in the emergency room, the patient was diagnosed as having sepsis, acute kidney injury, and urinary tract infection and was admitted to the hospital. I saw her this morning and decision was made to admit her to intensive care unit. Allergies: TO PENICILLIN CAUSING RASH, TETRACYCLINE CAUSING RASH, CODEINE CAUSING ITCHING, CEPHALEXIN CAUSING RASH AND ITCHING, AND BACTRIM CAUSING NAUSEA AND VOMITING. Medications: List reviewed. Current medication list reviewed as well as reviewed home medications list available in the hospital as well as office record, Review of Systems: GI: As mentioned above. Respiratory: As mentioned above. Genitourinary: As mentioned above. Dermatology: As mentioned above. All other systems reviewed and negative. Past Medical History: Significant for hypothyroidism, impaired fasting glucose, mild persistent asthma, obstructive sleep apnea, narcolepsy, hypertension, hyperlipidemia, leg edema, rheumatoid arthritis, thrombocytopenia, depression, kidney disease stage IIIA. 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 Past surgical history also significant for squamous cell carcinoma removal in 2019 and breast augmentation surgery in the past. Family History: Father , had mesothelioma. Brother with hyperlipidemia. Sister with hyperlipidemia, lupus, and diabetes. Social History: Negative for smoking and alcohol use. Physical Examination: Vital Signs: Height 5 feet 7 inches, weight 215 pounds, temperature 98, blood pressure 87/53, pulse 131, respiratory rate 20, oxygen saturation 100%. General: Awake, alert, oriented, not in distress. HEENT: Head atraumatic, normocephalic. Conjunctivae nonerythematous. Sclerae white. Mouth, no thrush or edema noted. Ears/Nose, no mass, lesion, discharge noted. Neck: Supple. No JVD, lymph nodes, bruit, thyromegaly noted. Lungs: Bilateral good equal air entry. Clear to auscultation. No rhonchi. No rales. Heart: Normal heart sounds, no murmur or gallop. Abdomen: Soft, bowel sounds normal. No guarding, rigidity, tenderness, mass, hepatosplenomegaly, distention, or bruit noted. Extremities: Extremity exam shows bilateral trace leg edema. Right lower extremity wound has completely healed. Left lower extremity has small triangular-shaped superficial open wound in the lower anterior leg, measures approximately 2.5 to 3 cm in size, and at the base has some yellow colored necrotic tissue. No bleeding. Surrounding skin appears unremarkable. Skin: No rash, ulcer, cellulitis. Lymphatics: No lymph node enlargement in neck, supraclavicular, infraclavicular region. Neuro: No focal neurological deficit. Chest: Unremarkable. External Genitalia: Deferred. Rectal: Deferred. Laboratory Data: White count 6, hemoglobin 10, platelets 156. Sodium 138, potassium 4, chloride 106, bicarb 27, BUN 20, creatinine 3.09, glucose 121, lactic acid 2.1. Liver function tests unremarkable. Urinalysis: 3+ blood, 500 leukocyte esterase, more than 50 rbc, more than 50 wbc, bacteria not seen. Impression: 1. Sepsis. 2. Urinary tract infection. 3. Acute kidney injury. 4. Volume depletion. 5. Chronic kidney disease stage IIIA. 6. Hypothyroidism. 7. Hypertension. 8. Hyperlipidemia. Plan: We will go ahead and admit the patient to hospital for further evaluation and management of this problem. The patient is appropriate for inpatient and is expected to spend 2 midnights in the hospital. For her volume depletion and acute kidney injury, IV fluid was given to her. Initially, 2 L of IV fluid was given in the emergency room and now we will continue maintenance IV fluid at 100 cc/hour. For sepsis and urinary tract infection, we will go ahead and continue empiric antibiotics. Follow up on culture results and once final culture result becomes available, then we will decide about culture specific antibiotic. DVT prophylaxis will be given using heparin 5000 units subcutaneous injection every 12 hours. We will not give any antihypertensive medication for blood pressure and monitor blood pressure at appropriate time. We will consider to restart antihypertensive medications. For depression, we will continue her medication as she takes at home. For her asthma, we will continue her montelukast and inhaler as she takes it at home. Wound culture was ordered for left lower leg wound and daily dressing changes was ordered as well. I did call her and details were discussed with him as well. I will see her tomorrow for followup. Total time spent 85 minutes that includes communication with ER physician, review of prior office record and prior hospital record, review of current ER visit record and performing current hospital admission evaluation and management. INDER/MARIA Voice ID: [id number]
[2024-04-20 05:20] LABS: Anion Gap 6.3 mEq/L (5.0-15.0); Potassium 4.3 mEq/L (3.5-5.1)
[2024-04-20 05:22] LABS: Absolute Eosinophils 0.1 K/uL (0-0.5); Absolute Lymphocytes (CBC) 1.7 K/uL (0.7-4.9); Absolute Monocytes 0.3 K/uL (0.1-1.3); Absolute Neutrophil 1.3 K/uL (1.8-8.0); Basophils % 0.5 % (0-1.3); Eosinophils % 1.8 % (0-4.4); Hematocrit 25.2 % (36.0-45.0); Hemoglobin 8.2 g/dL (12.0-15.0); Lymphocytes % 49.6 % (15.3-44.8); MCH 30.4 pg (27.0-35.0); MCHC 32.4 g/dL (32.0-36.0); MCV 93.7 fL (80-100); MPV 7.4 fL (7.6-11.3); Neutrophils % 39.1 % (41.7-73.7); Nucleated Red Blood Cells % 0.1 % (0-0); Platelets 150 thou/uL (152-406); RBC Red Blood Cell Count 2.69 M/uL (3.86-4.86); Red Cell Distribution Width 18.7 % (12.1-15.2)
[2024-04-20] MEDS: LEVOTHYROXINE SOD 0.025 MG TAB PO SCH (06:34)
[2024-04-20 06:53] LABS: Differential Total Cells Count 100; Eosinophils 3 % (0-3); Lymphocytes 52 % (15-42); Monocytes 6 % (0-10); Segmented Neutrophils 39 % (40-80)
[2024-04-20 06:54] LABS: Blood Morphology Comment NOT SEEN (NOT SEEN); Platelet Estimate ADEQ
[2024-04-20] MEDS ORDERED: Levofloxacin500mg IV 500 MG/100 ML BAG IV SCH (07:00)
[2024-04-20] MEDS: EZETIMIBE 10 MG TAB PO SCH (08:06)
[2024-04-20] MEDS: PANTOPRAZOLE 40MG TABLET PO SCH (08:06)
[2024-04-20] MEDS: DULOXETINE 30 MG CAP PO SCH (08:06)
[2024-04-20] MEDS: MONTELUKAST 10 MG TAB PO SCH (08:06)
[2024-04-20] MEDS: ROSUVASTATIN 5 MG TAB PO SCH (08:07)
[2024-04-20] MEDS: BUPROPION HCL 300 MG PO SCH (08:07)
[2024-04-20] MEDS: Levofloxacin500mg IV 500 MG/100 ML BAG IV SCH (08:07)
[2024-04-20] MEDS: ARIPiprazole 5 MG TAB PO SCH (08:07)
[2024-04-20] MEDS: LOSARTAN POTASSIUM 50 MG TABLET PO SCH (08:08)
[2024-04-20] MEDS ORDERED: HOME MED 1 EA UNK (Duloxetine Hcl [Cymbalta] 60 MG Capsule.Dr) PO SCH (09:00)
[2024-04-20] MEDS ORDERED: HOME MED 1 EA UNK (Levothyroxine Sodium [Levothyroxine Sodium] 25 MCG Capsule) PO SCH (09:00)
[2024-04-20] MEDS: VANCOMYCIN 1.75 GM in NA CHLORIDE 0.9% 500 ML IVPB SCH (10:57)
--- NOTE | 2024-04-20 15:11 | EKG ---
Test Date: 2024-04-19 Test Time: 02:12:46 Packaging Operator: NADINE MEASUREMENT RESULTS: Intervals: Rate: 125 AL: 150 QRSD: 78 QT: 300 QTc: 433 [place]: P: 62 AL: 150 QRS: 37 T: 57 INTERPRETIVE STATEMENTS: Sinus tachycardia Cannot rule out Anterior infarct, age undetermined Abnormal ECG Compared to ECG 03/02/2024 12:03:42 Myocardial infarct finding now present Electronically Signed On 04-20-24 15:06:44 CDT by Real Blas
[2024-04-20] MEDS: clonazePAM 1 MG TAB PO PRN (23:57)
--- NOTE | 2024-04-21 00:47 | PN ---
Date of Progress Note: 04/20/2024 Subjective: The patient was seen this morning for followup, she was in ICU, feeling a lot better. D enies any new complaints. Objective: Vital signs reviewed. Blood pressure is under much better control and does not have any low blood pressure problem anymore and in fact today, we will start her on antihypertensive medicatio n. Objective: Vital Signs: Reviewed. HEENT: Unremarkable. Lungs: Clear to auscultation. Heart: Heart sounds normal. Abdomen: Soft, bowel sounds normal. No guarding, rigidity, tenderness, or distention. Extremities: No leg edema. Laboratory Data: White count 3.4, hemoglobin 8.2, platelets 150. Sodium 141, potassium 4.3, chlorid e 113, bicarb 26, BUN 14, creatinine 1.35, glucose 91. Impression: 1.Sepsis. 2.Urinary tract infection. 3.Anemia. 4.Hypertension. Plan: We will go ahead and continue current DVT prophylaxis. Continue current antibiotic, IV fluid will be discontinued. The patient is medically stable and does not need any ICU care and we will tra nsfer her to medical floor, see copy of transfer order for details. The patient was encouraged to co ntinue to work with Physical therapy. I will see her tomorrow for followup. Once we get final resul t on the culture, we will decide about discharging home with culture specific antibiotics. INDER/MODL Voice ID: [id number] Report ID: [id number]
[2024-04-21 04:24] VITALS: O2SAT 100
[2024-04-21] MEDS ORDERED: Levofloxacin 250mg IV 250 MG/50 ML BAG IV SCH (06:00)
[2024-04-21] MEDS ORDERED: VANCOMYCIN 1.75 GM in NA CHLORIDE 0.9% 500 ML IVPB SCH (06:00)
[2024-04-21 06:45] LABS: Absolute Eosinophils 0.1 K/uL (0-0.5); Absolute Lymphocytes (CBC) 1.3 K/uL (0.7-4.9); Absolute Monocytes 0.4 K/uL (0.1-1.3); Absolute Neutrophil 2.2 K/uL (1.8-8.0); Basophils % 0.4 % (0-1.3); Eosinophils % 1.9 % (0-4.4); Hematocrit 29.2 % (36.0-45.0); Hemoglobin 9.4 g/dL (12.0-15.0); Lymphocytes % 33.6 % (15.3-44.8); MCH 29.9 pg (27.0-35.0); MCHC 32.2 g/dL (32.0-36.0); MCV 92.8 fL (80-100); MPV 7.5 fL (7.6-11.3); Monocytes % 9.3 % (3.3-12.3); Neutrophils % 54.8 % (41.7-73.7); Nucleated Red Blood Cells % 0.1 % (0-0); Platelets 180 thou/uL (152-406); RBC Red Blood Cell Count 3.15 M/uL (3.86-4.86); Red Cell Distribution Width 17.7 % (12.1-15.2)
[2024-04-21 07:18] LABS: Anion Gap 7.8 mEq/L (5.0-15.0); Potassium 3.8 mEq/L (3.5-5.1)
[2024-04-21 07:19] LABS: Magnesium 1.8
[2024-04-21 08:46] VITALS: BP 133/96; TEMP 97.8
--- NOTE | 2024-04-21 22:28 | DS ---
Date of Discharge: 04/21/2024 Disposition: Discharged to go home. Physical Examination: HEENT: Unremarkable. Lungs: Clear to auscultation. Heart: Sounds normal. Abdomen: Soft. Bowel sounds normal. No guarding, rigidity, tenderness, distention. Extremities: No leg edema. Left lower anterior leg has a small superficial ulcer, unchanged in size . Normal surrounding skin. Laboratory Data: Upon admission, sodium 138, potassium 4, chloride 106, bicarb 27, BUN 20, creatinin e 3.09, glucose 121, lactic acid 2.1. Repeat lactic acid 1.2. Liver function tests unremarkable. T hector, sodium 141, potassium 3.8, chloride 111, bicarb 26, BUN 9, creatinine 1.01, glucose 115, magnes ium 1.8. Upon admission, white count 6, hemoglobin 10, platelets 156. Today, white count 4, hemoglo bin 9.4, platelets 180. Urine culture grew Klebsiella. Discharge Medications And Instructions: 1.Continue all prior home medications. 2.Take Levaquin 500 mg daily for 10 days. 3.Clean left leg wound with normal saline and then apply Silvadene cream daily and the patient was i nstructed to keep it covered. Follow up at my office next week. Hospital Course: A 63-year-old female patient, who was admitted to the hospital after she came into emergency room. Please see dictated H and P for more information. The patient came in with shortnes s of breath, burning on urination, chills, and diarrhea. After she was evaluated in the ER, she was admitted to hospital with sepsis and urinary tract infection. She was started on empiric antibiotics and she was given IV fluid per sepsis protocol. Overall, her condition improved. She was admitted to ICU and she did not require any vasopressor medication. Physical Therapy was consulted and the pa opal started ambulating well. She is tolerating diet very well. Overall, her condition has improve d and today she was discharged to go home in stable condition with above-mentioned medications and in structions. While in the hospital, she received IV Levaquin and vancomycin and her vancomycin was di scontinued as of yesterday. Final Diagnoses: 1.Sepsis. 2.Urinary tract infection. 3.Acute kidney injury. 4.Volume depletion. 5.Chronic kidney disease stage IIIA. 6.Hypothyroidism. 7.Hypertension. 8.Hyperlipidemia. Total time spent was 40 minutes. INDER/MODL Voice ID: [id number] Report ID: [id number]
== END 2024-04-21 09:30 | disposition home or self-care (01) | DRG 872 ==
LOC: ER 01:54 → ERHOLD 06:41 → 3RD-ICU 07:37
PROVIDERS: ADMIT Internal Medicine; ATTEND Internal Medicine
DX: A41.9 Sepsis, unspecified organism (principal); N39.0 Urinary tract infection, site not specified; L03.116 Cellulitis of left lower limb; N17.9 Acute kidney failure, unspecified; R65.20 Severe sepsis without septic shock; E78.5 Hyperlipidemia, unspecified; E03.9 Hypothyroidism, unspecified; F32.A Depression, unspecified; G47.33 Obstructive sleep apnea (adult) (pediatric); I12.9 Hypertensive chronic kidney disease with stage 1 through stage 4 chronic kidney disease, or unspecified chronic kidney disease; N18.31 Chronic kidney disease, stage 3a; D63.1 Anemia in chronic kidney disease; E86.9 Volume depletion, unspecified; B96.1 Klebsiella pneumoniae [K. pneumoniae] as the cause of diseases classified elsewhere; Z88.5 Allergy status to narcotic agent; Z88.0 Allergy status to penicillin; Z88.1 Allergy status to other antibiotic agents; Z88.8 Allergy status to other drugs, medicaments and biological substances; Z11.52 Encounter for screening for COVID-19; Z90.49 Acquired absence of other specified parts of digestive tract; Z96.642 Presence of left artificial hip joint; Z90.710 Acquired absence of both cervix and uterus
CPT/HCPCS: 36415; 71045; 80048; 80053; 81001; 83605; 83735; 85025; 85610; 85730; 87040; 87070; 87077; 87086; 87088; 87186; 87205; 87804; 87811; 93005; 96361; 96365; 96375; 97116; 97161; 99285; J1642; J1644; J7030; J7040; J7050

== ENCOUNTER 2024-04-23 16:24 | Inpatient (IN) | payer BC, OTHER ==
[2024-04-23] MEDS ORDERED: FAMOTIDINE 20 MG/2 ML VIAL IV ONE (16:56)
[2024-04-23] MEDS ORDERED: NA CHLORIDE 0.9% 2,000 ML ONE (16:56)
[2024-04-23 17:28] LABS: Absolute Monocytes 0.5 K/uL (0.1-1.3); Basophils % 0.9 % (0-1.3); Eosinophils % 0.9 % (0-4.4); Hematocrit 30.7 % (36.0-45.0); Lymphocytes % 21.3 % (15.3-44.8); MCH 30.1 pg (27.0-35.0); MCHC 32.5 g/dL (32.0-36.0); MCV 92.6 fL (80-100); MPV 7.2 fL (7.6-11.3); Monocytes % 10.2 % (3.3-12.3); Neutrophils % 66.7 % (41.7-73.7); Platelets 269 thou/uL (152-406); RBC Red Blood Cell Count 3.31 M/uL (3.86-4.86); Red Cell Distribution Width 18.6 % (12.1-15.2)
[2024-04-23 17:36] LABS: Protime INR 1.19
--- NOTE | 2024-04-23 17:47 | RAD REPORT ---
EXAM DESCRIPTION: RAD - Chest Single View - 04/23/2024 5:34 pm CLINICAL HISTORY: PALPITATIONS Chest pain. COMPARISON: Chest Single View dated 04/19/2024; Chest Single View dated 03/02/2024; Chest Single View dated 12/20/2023; Chest Single View dated 12/19/2023 FINDINGS: Portable technique limits examination quality. Mild interstitial pulmonary edema. The heart is mildly enlarged in size. No displaced fractures.The r ight port catheter has tip in the SVC. IMPRESSION: Mild CHF.
[2024-04-23 17:54] LABS: ALT/SGPT 34 U/L (13-56); AST/SGOT 23 U/L (15-37); Albumin 3.4 g/dL (3.4-5.0); Alkaline Phosphatase 156 U/L (45-117); Anion Gap 10.2 mEq/L (5.0-15.0); BUN Blood Urea Nitrogen 16 mg/dL (7-18); Bicarbonate 25 mEq/L (21-32); Bilirubin Total 0.5 mg/dL (0.2-1.0); Globulin 3.4 g/dL (2.3-3.5); Glomerular Filtration Rate 30 ml/min (=/>90); Glucose Level 100 mg/dL (74-106); Lipase 18 U/L (13-75); Magnesium 1.9 mg/dL (1.6-2.4); NT PRO-BNP 69 pg/mL (<125); Potassium 4.2 mEq/L (3.5-5.1); Protein, Total 6.8 g/dL (6.4-8.2); Sodium Level 138 mEq/L (136-145); Troponin High Sensitivity 12.2 pg/mL (<58.9)
[2024-04-23 18:00] LABS: Bilirubin Direct < 0.2 mg/dL (0-0.2); Bilirubin Indirect, Calculated 0.3 mg/dL (0.2-0.8)
--- NOTE | 2024-04-23 18:11 | RAD REPORT ---
EXAM DESCRIPTION: US - Extrem Venous W Compress Elbert - 04/23/2024 6:03 pm CLINICAL HISTORY: SWELLING Bilateral leg edema and swelling. COMPARISON: Extrem Venous W Compress Elbert dated 03/02/2024 TECHNIQUE: Real-time sonographic interrogation of the left and right lower extremity deep venous sys tems was performed. FINDINGS: Normal compressibility, flow augmentation, phasic flow and spontaneous flow is identified in both the left and right lower extremity deep venous systems. IMPRESSION: No sonographic evidence of left or right lower extremity deep venous thrombosis.
--- NOTE | 2024-04-23 18:21 | RAD REPORT ---
EXAM DESCRIPTION: CT - Chest Abd Pelvis Wo Con - 04/23/2024 6:11 pm CLINICAL HISTORY: Chest and abdomen pain. Congestion;Pain COMPARISON: Chest For Pe Angio dated 03/02/2024 TECHNIQUE: A limited noncontrast study was performed. All CT scans are performed using dose optimization technique as appropriate and may include automated exposure control or mA/KV adjustment according to patient size. FINDINGS: The lungs are emphysematous.No pleural or pericardial effusion.No intrathoracic adenopathy . The liver, spleen, pancreas, and kidneys are within normal limits. Calcified adrenal glands bilateral ly. Aortic atherosclerosis. No bowel obstruction, free air, free fluid or abscess. Normal appendix. No pathologic lymphadenopath y in the abdomen or pelvis. Postsurgical changes lumbar spine. IMPRESSION: No acute abnormality is detected.
--- NOTE | 2024-04-23 18:23 | ER ---
Nurse's Notes [facility] Name: Lydia Hanson Age: 63 yrs Sex: Female : 1960 Arrival Date: 04/23/2024 Time: 16:24 Bed 4 Private MD: Joshua Garcia Diagnosis: Tachycardia, unspecified;Weakness;Syncope Near;Chronic kidney disease, unspecified;Anemia, unspecified Presentation: 04/23 16:36 Chief complaint: Patient states: Weakness, SOB with exertion, fast HR (120), low BP ll1 (60's systolic) started yesterday. Just released from ICU Friday for sepsis. Coronavirus screen: Client denies travel out of the [place] in the last 14 days. At this time, the client does not indicate any symptoms associated with coronavirus-19. Ebola Screen: Patient denies travel to an Ebola-affected area in the 21 days before illness onset. Initial Sepsis Screen: Does the patient meet any 2 criteria? No. Patient's initial sepsis screen is negative. Does the patient have a suspected source of infection? No. Patient's initial sepsis screen is negative. Risk Assessment: Do you want to hurt yourself or someone else? Patient reports no desire to harm self or others. Onset of symptoms was April 22, 2024. 16:36 Method Of Arrival: Ambulatory ll1 16:36 Acuity: RIA 3 ll1 Triage Assessment: 16:38 General: Appears uncomfortable, Behavior is calm, cooperative, appropriate for age. ll1 Pain: Complains of pain in B hips and knees Pain currently is 9 out of 10 on a pain scale. Neuro: Reports weakness. Cardiovascular: Reports fatigue, palpitations, shortness of breath. Respiratory: Reports shortness of breath. Historical: - Allergies: 16:37 CEPHALOSPORINS; ll1 16:37 TETRACYCLINES; ll1 16:37 Adhesives; ll1 16:37 Codeine; ll1 16:37 PENICILLINS; ll1 - PMHx: 16:37 CKD; Depression; Hyperlipidemia; Hypertension; L hip replacement; multiple falls ll1 (hysterectomy); narcolepsy; Sleep Apnea; Thyroid problem; V-tach; - PSHx: 16:37 Cholecystectomy; hysterectomy; ll1 - Immunization history:: Adult Immunizations up to date. - Infectious Disease History:: Denies. - Social history:: Smoking status: Patient denies any tobacco usage or history of. Screenin:30 [facility] ED Fall Risk Assessment (Adult) History of falling in the last 3 months, rs5 including since admission No falls in past 3 months (0 pts) Confusion or Disorientation No (0 pts) Intoxicated or Sedated No (0 pts) Impaired Gait No (0 pts) Mobility Assist Device Used No (0 pt) Altered Elimination No (0 pt) Score/Fall Risk Level 0 - 2 = Low Risk Oriented to surroundings, Maintained a safe environment. Abuse screen: Denies threats or abuse. Nutritional screening: No deficits noted. Tuberculosis screening: No symptoms or risk factors identified. Assessment: 17:00 General: Appears comfortable, Behavior is calm, cooperative. Pain: Complains of pain in aa5 right flank Pain currently is 9 out of 10 on a pain scale. Quality of pain is described as sharp, Pain began "for a while on and off". Neuro: Level of Consciousness is awake, alert, obeys commands, Oriented to person, place, time, situation. Cardiovascular: Reports lightheadedness, nausea, palpitations, shortness of breath, Heart tones S1 S2 present Rhythm is sinus tachycardia. Respiratory: Reports shortness of breath Airway is patent Respiratory effort is even, unlabored, Respiratory pattern is regular, symmetrical, Breath sounds are clear bilaterally. GI: Abdomen is obese, Bowel sounds present X 4 quads. Abd is soft and non tender X 4 quads. Reports nausea. : Reports burning with urination, on and off for a while. EENT: No signs and/or symptoms were reported regarding the EENT system. Derm: Skin is pink, warm \\T\\ dry. Multiple dark purple bruising noted to casey arms. Musculoskeletal: Range of motion: intact in all extremities. 17:30 Reassessment: Lab at bedside collecting 2nd set of blood cultures. . aa5 18:00 Reassessment: Patient and/or family updated on plan of care and expected duration. Pain rs5 level reassessed. Patient is alert, oriented x 3, equal unlabored respirations, skin warm/dry/pink. 18:45 Reassessment: Casey lower extremity wounds cleaned with Hibiclens and saline, dressed aa5 with gauze and Kerlix, pt tolerated well. Right lower extremity wound is closed with multiple small scabs, no drainage noted. Left lower extremity is open, approximately quarter sized, with granulation tissue noted, yellowish drainage noted. . 18:45 Reassessment: Patient is alert, oriented x 3, equal unlabored respirations, skin aa5 warm/dry/pink. 19:08 Reassessment: Report faxed to 2nd floor . aa5 19:26 Reassessment: Patient appears in no apparent distress at this time. Patient and/or rg5 family updated on plan of care and expected duration. Pain level reassessed. Patient is alert, oriented x 3, equal unlabored respirations, skin warm/dry/pink. General: Appears in no apparent distress. comfortable, Behavior is calm, cooperative. Pain: Complains of pain in right flank Pain does not radiate. Pain currently is 7 out of 10 on a pain scale. Quality of pain is described as dull, pressure. Neuro: Level of Consciousness is awake, alert, obeys commands, Oriented to person, place, time, situation. Cardiovascular: Heart tones S1 S2 present Capillary refill < 3 seconds Patient's skin is warm and dry. Respiratory: Airway is patent Trachea midline Respiratory effort is even, unlabored, Respiratory pattern is regular, symmetrical, Breath sounds are clear bilaterally. GI: No signs and/or symptoms were reported involving the gastrointestinal system. : Reports right flank. provider notified and new orders recieved. EENT: No signs and/or symptoms were reported regarding the EENT system. Vital Signs: 16:36 BP 123 / 96; Pulse 108; Resp 17; Temp 97.4; Pulse Ox 100% on R/A; Weight 93.89 kg; ll1 Height 5 ft. 7 in. ; Pain 9/10; 17:00 BP 119 / 65; Pulse 100; Resp 19 S; Pulse Ox 100% on R/A; aa5 17:30 BP 116 / 65; Pulse 99; Resp 16 S; Pulse Ox 100% on R/A; aa5 18:50 BP 112 / 55; Pulse 93; Resp 16 S; Pulse Ox 100% on R/A; aa5 19:26 BP 123 / 65; Pulse 93; Resp 11; Temp 97.4; Pulse Ox 100% on R/A; Pain 7/10; rg5 16:36 Body Mass Index 32.42 (93.89 kg, 170.18 cm) ll1 16:36 Pain Scale: Adult ll1 19:26 Pain Scale: Adult rg5 Arlet Coma Score: 19:26 Eye Response: spontaneous(4). Motor Response: obeys commands(6). Verbal Response: rg5 oriented(5). Total: 15. ED Course: 16:26 Patient arrived in ED. rg4 16:26 Joshua Garcia MD is Private Physician. rg4 16:30 Patient has correct armband on for positive identification. Placed in gown. Bed in low rs5 position. Call light in reach. Side rails up X2. 16:30 No provider procedures requiring assistance completed. rs5 16:33 Cipriano Resendez MD is Attending Physician. [facility] 16:37 Triage completed. ll1 16:38 Arm band placed on Patient placed in an exam room, on a stretcher. ll1 16:50 Michelle Arauz, MARITA is Primary Nurse. aa5 17:10 Accessed Port-a-Cath. using accessed w/ # 20 Mckee needle, ,sterile technique, per [facility] protocol. Clean \\T\\ dry. Good blood return. Flushes easily. 17:10 Initial lab(s) drawn, by me, sent to lab. First set of blood cultures drawn by , elsa'evelio aa to be collected from port-a-cath per MD, pt is a hard stick. 17:36 XRAY Chest (1 view) In Process Unspecified. EDMS 18:04 US Extremity Venous W Compression Casey In Process Unspecified. EDMS 18:13 CT Chest Abdomen Pelvis W/O Contrast In Process Unspecified. EDMS 18:21 Joshua Garcia MD is Hospitalizing Provider. [facility] 19:00 Report given to MARITA Manning. aa5 19:26 Provided Education on: need for admission. Client placed on continuous cardiac and rg5 pulse oximetry monitoring. NIBP monitoring applied. cardiac monitor on. Pulse ox on. NIBP on. Door closed. Noise minimized. Warm blanket given. Verbal reassurance given. Head of bed elevated. 19:26 Patient admitted, IV remains in place. rg5 Administered Medications: 17:52 Discontinued: ns 0.9% 1000 ml IV at 1 bolus Per protocol; 1000 mL bolus [facility] 17:00 Drug: NS 0.9% IV 1000 ml IV at 1 bolus Per protocol; 1000 mL bolus Route: IV; Rate: 1 rs5 bolus; Site: Port-a-cath; 18:00 Follow up: IV Status: Order to discontinue infusion aa5 17:00 Drug: Famotidine IVP 20 mg IVP once; dilute with 10 mL 0.9% NaCl; give over 2 minutes rs5 Route: IVP; Site: Port-a-cath; 17:15 Follow up: Response: No adverse reaction aa5 17:00 Drug: NS 0.9% IV 1000 ml IV at 125 ml/hr continuous Route: IV; Rate: 125 ml/hr; Site: rs5 Port-a-cath; 19:30 Follow up: Response: No adverse reaction; IV Status: Infusion continued upon admission rg5 18:25 Drug: Lovenox Sub-Q 40 mg Sub-Q once Route: Sub-Q; Site: left lower abdomen; aa5 19:08 Follow up: Response: No adverse reaction aa5 19:25 Drug: Ondansetron IVP 4 mg IVP once; over 2 minutes Route: IVP; Site: Port-a-cath; rg5 19:30 Follow up: Response: No adverse reaction rg5 19:26 Drug: fentaNYL (PF) IVP 25 mcg IVP once Route: IVP; Site: Port-a-cath; rg5 19:30 Follow up: Response: No adverse reaction rg5 20:09 Drug: fentaNYL (PF) IVP 25 mcg IVP once Route: IVP; Site: Port-a-cath; rg5 20:09 Follow up: Response: Pain is decreased rg5 Medication: 18:00 VIS not applicable for this client. rs5 Outcome: 18:22 Decision to Hospitalize by Provider. danilo 20:09 Admitted to Med/surg accompanied by nurse, with chart, rg5 20:09 Condition: stable 20:09 Instructed on the need for admit, 20:10 Patient left the ED. rg5 Signatures: Dispatcher [employer] EDMS Cipriano Resendez MD MD cha Calderon, Audri, RN RN aa5 Gwen Markham rg4 Anastasiia Lagos, MARITA RN ll1 Dustin Jin RN RN rs5 Zach Lomax RN RN rg5 Corrections: (The following items were deleted from the chart) 16:40 16:36 BP 123 / 96; Pulse 60bpm; Resp 17bpm; Pulse Ox 100% RA; Temp 97.4F; 93.89 kg; ll1 Height 5 ft. 7 in.; BMI: 32.4; Pain 9/10, Adult; ll1 18:23 17:00 Cardiovascular: Heart tones S1 S2 present Rhythm is sinus tachycardia aa5 aa5 19:12 18:45 Reassessment: Casey lower extremity wounds cleaned with Hibiclens and saline, aa5 dressed with gauze and Kerlix, pt tolerated well. . aa5
--- NOTE | 2024-04-23 18:23 | EDPHYS ---
Physician Documentation [facility] Name: Lydia Hanson Age: 63 yrs Sex: Female : 1960 Arrival Date: 04/23/2024 Time: 16:24 Bed 4 Private MD: Joshua Garcia ED Physician Cipriano Resendez HPI: 04/23 17:38 This 63 yrs old Female presents to ER via Ambulatory with complaints of Low danilo BP, Palpitations. 17:38 The patient presents with a history of heart racing, heart skipping beats. Context: The danilo symptoms occur with light activity. Onset: The symptoms/episode began/occurred today. Duration: The patient or guardian reports multiple episodes, with no pattern. Modifying factors: The symptoms are aggravated by nothing. The symptoms are alleviated by nothing. Severity of symptoms: At their worst the symptoms were mild in the emergency department the symptoms are unchanged. The patient has experienced similar episodes in the past, a few times. Historical: - Allergies: 16:37 CEPHALOSPORINS; ll1 16:37 TETRACYCLINES; ll1 16:37 Adhesives; ll1 16:37 Codeine; ll1 16:37 PENICILLINS; ll1 - PMHx: 16:37 CKD; Depression; Hyperlipidemia; Hypertension; L hip replacement; multiple falls ll1 (hysterectomy); narcolepsy; Sleep Apnea; Thyroid problem; V-tach; - PSHx: 16:37 Cholecystectomy; hysterectomy; ll1 - Immunization history:: Adult Immunizations up to date. - Infectious Disease History:: Denies. - Social history:: Smoking status: Patient denies any tobacco usage or history of. ROS: 17:40 Constitutional: Negative for fever, chills, and weight loss, Eyes: Negative for injury, danilo pain, redness, and discharge, ENT: Negative for injury, pain, and discharge, Neck: Negative for injury, pain, and swelling, Respiratory: Negative for shortness of breath, cough, wheezing, and pleuritic chest pain, Abdomen/GI: Negative for abdominal pain, nausea, vomiting, diarrhea, and constipation, Back: Negative for injury and pain, : Negative for injury, bleeding, discharge, and swelling, MS/Extremity: Negative for injury and deformity, Skin: Negative for injury, rash, and discoloration, Psych: Negative for depression, anxiety, suicide ideation, homicidal ideation, and hallucinations, Allergy/Immunology: Negative for hives, rash, and allergies, Endocrine: Negative for neck swelling, polydipsia, polyuria, polyphagia, and marked weight changes, Hematologic/Lymphatic: Negative for swollen nodes, abnormal bleeding, and unusual bruising, 17:40 Cardiovascular: Positive for palpitations, 17:40 Neuro: Positive for near syncope, weakness, Exam: 17:40 Constitutional: This is a well developed, well nourished patient who is awake, alert, danilo and in no acute distress. Head/Face: Normocephalic, atraumatic. Eyes: Pupils equal round and reactive to light, extra-ocular motions intact. Lids and lashes normal. Conjunctiva and sclera are non-icteric and not injected. Cornea within normal limits. Periorbital areas with no swelling, redness, or edema. ENT: Nares patent. No nasal discharge, no septal abnormalities noted. Tympanic membranes are normal and external auditory canals are clear. Oropharynx with no redness, swelling, or masses, exudates, or evidence of obstruction, uvula midline. Mucous membranes moist. Neck: Trachea midline, no thyromegaly or masses palpated, and no cervical lymphadenopathy. Supple, full range of motion without nuchal rigidity, or vertebral point tenderness. No Meningismus. Chest/axilla: Normal chest wall appearance and motion. Nontender with no deformity. No lesions are appreciated. Respiratory: Lungs have equal breath sounds bilaterally, clear to auscultation and percussion. No rales, rhonchi or wheezes noted. No increased work of breathing, no retractions or nasal flaring. Abdomen/GI: Soft, non-tender, with normal bowel sounds. No distension or tympany. No guarding or rebound. No evidence of tenderness throughout. Back: No spinal tenderness. No costovertebral tenderness. Full range of motion. Female : Normal external genitalia. Skin: Warm, dry with normal turgor. Normal color with no rashes, no lesions, and no evidence of cellulitis. MS/ Extremity: Pulses equal, no cyanosis. Neurovascular intact. Full, normal range of motion. Neuro: Awake and alert, GCS 15, oriented to person, place, time, and situation. Cranial nerves II-XII grossly intact. Motor strength 5/5 in all extremities. Sensory grossly intact. Cerebellar exam normal. Normal gait. Psych: Awake, alert, with orientation to person, place and time. Behavior, mood, and affect are within normal limits. 17:40 Cardiovascular: Rate: tachycardic, actual rate is 108 bpm, Rhythm: regular, Pulses: Pulses are 4+ in bilateral radial, brachial, femoral, popliteal, posterior tibial and and dorsalis pedis arteries.. Heart sounds: normal, Edema: is not appreciated, JVD: is not appreciated, 17:40 Musculoskeletal/extremity: Circulation is intact in all extremities. Sensation intact. Compartment Syndrome exam of affected extremity: is normal. bilateral lower extremity wounds, some purulent drainage. 17:42 ECG was reviewed by the Attending Physician. danilo Vital Signs: 16:36 BP 123 / 96; Pulse 108; Resp 17; Temp 97.4; Pulse Ox 100% on R/A; Weight 93.89 kg; ll1 Height 5 ft. 7 in. ; Pain 9/10; 17:00 BP 119 / 65; Pulse 100; Resp 19 S; Pulse Ox 100% on R/A; aa5 17:30 BP 116 / 65; Pulse 99; Resp 16 S; Pulse Ox 100% on R/A; aa5 18:50 BP 112 / 55; Pulse 93; Resp 16 S; Pulse Ox 100% on R/A; aa5 19:26 BP 123 / 65; Pulse 93; Resp 11; Temp 97.4; Pulse Ox 100% on R/A; Pain 7/10; rg5 16:36 Body Mass Index 32.42 (93.89 kg, 170.18 cm) ll1 16:36 Pain Scale: Adult ll1 19:26 Pain Scale: Adult rg5 Arlet Coma Score: 19:26 Eye Response: spontaneous(4). Motor Response: obeys commands(6). Verbal Response: rg5 oriented(5). Total: 15. MDM: 16:33 Patient medically screened. danilo 17:43 Differential diagnosis: arrythmia, dehydration, stress disorder. Differential danilo Diagnosis: aortic aneurysm, cardiac arrhythmia, emotional response, GI bleed, sepsis, transient ischemic attack, vasovagal episode. Data reviewed: vital signs, nurses notes, lab test result(s), EKG, radiologic studies, CT scan, plain films. Consideration of Admission/Observation Patient was admitted/placed on observation. Escalation of care including admission/observation considered. I considered the following discharge prescriptions or medication management in the emergency department Medications were administered in the Emergency Department. See MAR. Independent interpretation of the following test(s) in the Emergency Department EKG: See my EKG interpretation above. Test considered but Not performed: Ultrasound no 2 d echo. 04/23 16:35 Order name: Basic Metabolic Panel; Complete Time: 18:01 04/23 16:35 Order name: CBC with Diff; Complete Time: 17:52 04/23 16:35 Order name: LFT's; Complete Time: 18:01 04/23 16:35 Order name: Magnesium; Complete Time: 18:01 04/23 16:35 Order name: NT PRO-BNP; Complete Time: 18:01 04/23 16:35 Order name: PT-INR; Complete Time: 17:52 04/23 16:35 Order name: Troponin HS; Complete Time: 18:01 04/23 16:35 Order name: Lipase; Complete Time: 18:01 04/23 16:35 Order name: Urinalysis w/ reflexes 04/23 16:35 Order name: TSH; Complete Time: 18:01 04/23 16:35 Order name: Blood Culture Adult (2) 04/23 16:35 Order name: Lactate w/ 2H reflex if indic.; Complete Time: 17:52 04/23 16:35 Order name: XRAY Chest (1 view); Complete Time: 17:52 04/23 17:38 Order name: US Extremity Venous W Compression Elbert; Complete Time: 18:17 04/23 17:38 Order name: CT Chest Abdomen Pelvis W/O Contrast; Complete Time: 18:34 04/23 16:35 Order name: Cardiac monitoring; Complete Time: 16:43 04/23 16:35 Order name: EKG - Nurse/Tech; Complete Time: 16:41 04/23 16:35 Order name: IV Saline Lock; Complete Time: 18:10 04/23 16:35 Order name: Labs collected and sent; Complete Time: 18:10 04/23 16:35 Order name: O2 Per Protocol; Complete Time: 16:43 04/23 16:35 Order name: O2 Sat Monitoring; Complete Time: 16:43 04/23 17:38 Order name: Misc. Order: clean and dress le wounds; Complete Time: 18:56 danilo EC:42 Rate is 106 beats/min. Rhythm is regular. QRS [place] is Normal. [place] interval is normal. danilo QRS interval is normal. QT interval is normal. No Q waves. T waves are Normal. No ST changes noted. Clinical impression: Sinus tachycardia and No evidence of ischemia. Interpreted by me. Reviewed by me. Administered Medications: 17:52 Discontinued: ns 0.9% 1000 ml IV at 1 bolus Per protocol; 1000 mL bolus danilo 17:00 Drug: NS 0.9% IV 1000 ml IV at 1 bolus Per protocol; 1000 mL bolus Route: IV; Rate: 1 rs5 bolus; Site: Port-a-cath; 18:00 Follow up: IV Status: Order to discontinue infusion aa5 17:00 Drug: Famotidine IVP 20 mg IVP once; dilute with 10 mL 0.9% NaCl; give over 2 minutes rs5 Route: IVP; Site: Port-a-cath; 17:15 Follow up: Response: No adverse reaction aa5 17:00 Drug: NS 0.9% IV 1000 ml IV at 125 ml/hr continuous Route: IV; Rate: 125 ml/hr; Site: rs5 Port-a-cath; 19:30 Follow up: Response: No adverse reaction; IV Status: Infusion continued upon admission rg5 18:25 Drug: Lovenox Sub-Q 40 mg Sub-Q once Route: Sub-Q; Site: left lower abdomen; aa5 19:08 Follow up: Response: No adverse reaction aa5 19:25 Drug: Ondansetron IVP 4 mg IVP once; over 2 minutes Route: IVP; Site: Port-a-cath; rg5 19:30 Follow up: Response: No adverse reaction rg5 19:26 Drug: fentaNYL (PF) IVP 25 mcg IVP once Route: IVP; Site: Port-a-cath; rg5 19:30 Follow up: Response: No adverse reaction rg5 20:09 Drug: fentaNYL (PF) IVP 25 mcg IVP once Route: IVP; Site: Port-a-cath; rg5 20:09 Follow up: Response: Pain is decreased rg5 Disposition Summary: 04/23/24 18:22 Hospitalization Ordered Notes: Hospitalization Status: Observation danilo Provider: Joshua Garcia cha Location: Telemetry/MedSurg (observation) danilo Condition: Fair danilo Problem: new danilo Symptoms: have improved danilo Bed/Room Type: Standard danilo Room Assignment: 221(04/23/24 18:43) eb Diagnosis - Tachycardia, unspecified danilo - Weakness danilo - Syncope Near danilo - Chronic kidney disease, unspecified danilo - Anemia, unspecified dnailo Forms: - Medication Reconciliation Form danilo - SBAR form danilo - Leadership Thank You Letter danilo Signatures: Dispatcher [employer] EDMS Cipriano Resendez MD MD cha Calderon, Audri RN RN aa5 Yudelka Vergara Lynsay, RN RN ll1 Dustin Jin RN RN rs5 Zach Lomax RN RN rg5 Corrections: (The following items were deleted from the chart) 16:35 16:35 BASIC METABOLIC PANEL+C.LAB.BRZ ordered. EDMS EDMS 16:35 16:35 CBC+H.LAB.BRZ ordered. EDMS EDMS 16:35 16:35 HEPATIC FUNCTION+C.LAB.BRZ ordered. EDMS EDMS 16:35 16:35 MAGNESIUM+C.LAB.BRZ ordered. EDMS EDMS 16:35 16:35 PROBNP+C.LAB.BRZ ordered. EDMS EDMS 16:35 16:35 PROTIME (+INR)+COAG.LAB.BRZ ordered. EDMS EDMS 16:35 16:35 Troponin High Sensitivity+C.LAB.BRZ ordered. EDMS EDMS 16:35 16:35 LIPASE+C.LAB.BRZ ordered. EDMS EDMS 16:35 16:35 Urinalysis+U.LAB.BRZ ordered. EDMS EDMS 16:35 16:35 THYROID STIMULAT HORMONE+C.LAB.BRZ ordered. EDMS EDMS 16:35 16:35 BLOOD CULTURE*+BA.LAB.BRZ ordered. EDMS EDMS 16:35 16:35 LACTATE+C.LAB.BRZ ordered. EDMS EDMS 17:38 17:38 Extrem Venous W Compression Elbert+US.RAD.BRZ ordered. EDMS EDMS 17:38 17:38 Chest Abdomen Pelvis Wo Con+CT.RAD.BRZ ordered. EDMS EDMS 18:43 18:22 danilo eb
[2024-04-23] MEDS ORDERED: NA CHLORIDE 0.9% 1,000 ML ONE (18:29)
[2024-04-23] MEDS ORDERED: ENOXAPARIN 40 MG/0.4 ML SQ ONE (18:29)
[2024-04-23] MEDS ORDERED: ONDANSETRON 4 MG/2 ML VIAL ONE (19:20)
[2024-04-23] MEDS ORDERED: FENTANYL CITR 100 MCG/2 ML ONE ×2 (19:20→19:59)
[2024-04-23] MEDS ORDERED: ALBUTEROL 2.5 MG/3 ML NEB SOL NEB PRN (21:45)
[2024-04-23] MEDS ORDERED: ACETAMINOPHEN 500 MG TAB PO PRN (21:45)
[2024-04-23] MEDS: NA CHLORIDE 0.9% 1,000 ML IV SCH (21:45)
[2024-04-23] MEDS ORDERED: IPRATROPIUM BROM 0.5MG/2.5ML NEB PRN (21:45)
[2024-04-23] MEDS: Levofloxacin500mg IV 500 MG/100 ML BAG IV ONE (22:26)
[2024-04-23] MEDS: FAMOTIDINE 20 MG/2 ML VIAL IV SCH (22:27)
[2024-04-23] MEDS: MORPHINE 4 MG/ML SYR IV PRN (23:00)
[2024-04-23 23:30] VITALS: BMI 32.4
[2024-04-24 00:46] LABS: Specific Gravity > 1.030 (1.005-1.030); Sqamous Epithelial <5 /HPF (None Seen); Urine Bacteria None Seen /HPF (<20); Urine Bilirubin NEGATIVE (Negative); Urine Blood Negative (Negative); Urine Clarity Extremely Turbid (Clear); Urine Color Yellow (Yellow); Urine Culture Reflex Order NOT NEEDED; Urine Glucose NEGATIVE (Negative); Urine Ketones NEGATIVE (Negative); Urine Microscopic Reflex YN ORDER UMIC; Urine Mucus 2+ /HPF (None Seen); Urine Nitrite NEGATIVE (Negative); Urine Protein 1+ (Negative); Urine RBC None Seen /HPF (None Seen); Urine Urobilinogen 1+ (Normal); Urine WBC <5 /HPF (<5); Urine pH 6.5 (5.0-7.0)
[2024-04-24] MEDS: ONDANSETRON 4 MG/2 ML VIAL IV PRN (05:07)
[2024-04-24 06:23] LABS: Absolute Eosinophils 0.1 K/uL (0-0.5); Absolute Lymphocytes (CBC) 1.1 K/uL (0.7-4.9); Absolute Monocytes 0.3 K/uL (0.1-1.3); Absolute Neutrophil 1.6 K/uL (1.8-8.0); Basophils % 0.6 % (0-1.3); Eosinophils % 1.8 % (0-4.4); Hematocrit 24.6 % (36.0-45.0); Hemoglobin 8.2 g/dL (12.0-15.0); Lymphocytes % 35.5 % (15.3-44.8); MCH 30.7 pg (27.0-35.0); MCHC 33.5 g/dL (32.0-36.0); MCV 91.8 fL (80-100); MPV 6.8 fL (7.6-11.3); Monocytes % 11.1 % (3.3-12.3); Nucleated Red Blood Cells % 0.1 % (0-0); Platelets 235 thou/uL (152-406); RBC Red Blood Cell Count 2.68 M/uL (3.86-4.86); Red Cell Distribution Width 17.4 % (12.1-15.2)
[2024-04-24 06:45] LABS: Anion Gap 8.8 mEq/L (5.0-15.0); Potassium 3.8 mEq/L (3.5-5.1)
--- NOTE | 2024-04-24 07:10 | RAD REPORT ---
EXAM DESCRIPTION: Tracy Single View04/24/2024 6:14 am CLINICAL HISTORY: Chest pain COMPARISON: April 23, 2024 FINDINGS: The lungs appear clear of acute infiltrate. The heart is mildly to moderately enlarged A central venous line in place IMPRESSION: No acute abnormalities displayed
[2024-04-24] MEDS: FUROSEMIDE 20 MG/ 2ML VIAL IV SCH (08:48)
[2024-04-24] MEDS ORDERED: HYDROCODONE/APAP 10/325 TAB PO PRN (11:06)
[2024-04-24] MEDS: NA CHLORIDE 0.9% 1,000 ML IV SCH (13:34)
[2024-04-24] MEDS: Levofloxacin 250mg IV 250 MG/50 ML BAG IV SCH (16:42)
[2024-04-24] MEDS: ENOXAPARIN 30 MG/0.3 ML SQ SCH (16:43)
[2024-04-24] MEDS: FOLIC ACID 1 MG TABLET PO SCH (20:20)
[2024-04-24] MEDS: LIOTHYRONINE SOD 25 MCG TAB PO SCH (20:20)
[2024-04-24] MEDS: ZOLPIDEM TARTRATE 10 MG TABLET PO SCH (20:20)
--- NOTE | 2024-04-25 04:52 | HP ---
Date of Admission: 04/24/2024 Chief Complaint: Low blood pressure, high pulse rate. History Of Present Illness: This is a 63-year-old very pleasant female patient who was recently admitted to the hospital with sepsis and acute kidney injury. The patient was admitted to hospital on 04/19/2024, with sepsis and urinary tract infection with acute kidney injury and after she was treated, she was stable for discharge and was discharged to go home just a couple of days ago beginning of this week with some oral Levaquin. She was discharged to go home on 04/21/2024, and she continued to take her antibiotic, which is Levaquin as per instruction. Yesterday evening, the patient came back to the emergency room, she contacted ICU nurse since she was in hospital ICU during her last hospital admission, she actually called ICU nurse yesterday and informed her that her pulse rate was high and blood pressure was low and she did not know what to do and at that time she was instructed to come to the emergency room. After she arrived in the emergency room, she was evaluated and admitted to the hospital. When I saw her this morning, she was feeling fine. The patient was on medical floor and her was with her at bedside. The patient reports that her lowest blood pressure at home was around 70/42 or so and she has been having some pain in her both hips and knees. Denies any fever, chills, nausea, vomiting, diarrhea. The patient's lowest blood pressure since she has been admitted to the hospital is 104/55. The patient denies any vomiting, diarrhea. Allergies: TO PENICILLIN CAUSING RASH, TETRACYCLINE CAUSING RASH, CODEINE CAUSING ITCHING, CEPHALEXIN CAUSING RASH AND ITCHING, AND BACTRIM CAUSING NAUSEA AND VOMITING. Medications: List reviewed. Current medication list reviewed as well as reviewed home medications list available in the hospital as well as office record, Review of Systems: Cardiovascular: As mentioned above. All other systems reviewed and negative. Past Medical History: Significant for hypothyroidism, impaired fasting glucose, mild persistent asthma, obstructive sleep apnea, narcolepsy, hypertension, hyperlipidemia, leg edema, rheumatoid arthritis, thrombocytopenia, depression, kidney disease stage IIIA. 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 Past surgical history also significant for squamous cell carcinoma removal in 2019 and breast augmentation surgery in the past. Family History: Father , had mesothelioma. Brother with hyperlipidemia. Sister with hyperlipidemia, lupus, and diabetes. Social History: Negative for smoking and alcohol use. Physical Examination: Last Vital Signs: This morning, temperature 96.8, pulse 92, respiratory rate 18, blood pressure 106/38, oxygen saturation 97%. Her initial blood pressure was 123/96 with pulse 108 when she first came to the emergency room. General: Awake, alert, oriented, not in distress. HEENT: Head atraumatic, normocephalic. Conjunctivae nonerythematous. Sclerae white. Mouth, no thrush or edema noted. Ears/Nose, no mass, lesion, discharge noted. Neck: Supple. No JVD, lymph nodes, bruit, thyromegaly noted. Lungs: Bilateral good equal air entry. Clear to auscultation. No rhonchi. No rales. Heart: Normal heart sounds, no murmur or gallop. Abdomen: Soft, bowel sounds normal. No guarding, rigidity, tenderness, mass, hepatosplenomegaly, distention, or bruit noted. Extremities: No leg edema. No calf tenderness. Skin: Left lower and anterior leg has a small superficial ulcer and this is significantly better compared to last hospital admission. There no discharge, bleeding, or redness of skin around it. Lymphatics: No lymph node enlargement in neck, supraclavicular, infraclavicular region. Neuro: No focal neurological deficit. Chest: Unremarkable. External Genitalia: Deferred. Rectal: Deferred. Laboratory Data: Yesterday upon admission, white count 4.5, hemoglobin 10, platelets 269. This morning, white count 3.10, hemoglobin 8.2, platelets 235. Chemistry yesterday, sodium 138, potassium 4.2, chloride 107, bicarb 25, BUN 16, creatinine 1.84, glucose 100. Lactic acid 1.3. Liver function tests unremarkable. Initial troponin 12.2, second troponin 10.1. TSH 1.19. This morning, sodium 138, potassium 3.8, chloride 109, bicarb 24, BUN 15, creatinine 1.63, glucose 107. Urinalysis; leukocyte esterase 25. Otherwise, urinalysis was unremarkable. Her last hospital admission, initial creatinine was 3.09 and on day of discharge on 04/21/2024, creatinine came down to 1.01. Her culture had grown Klebsiella. Her chest x-ray from yesterday shows changes of mild congestive heart failure. Obviously, clinically I disagree with that. The patient does not have any signs or symptoms of congestive heart failure. CAT scan of the abdomen and pelvis without contrast done in the emergency room yesterday was negative. Venous Doppler of lower extremity was negative for DVT and this morning her chest x-ray was negative for any acute changes. Impression: 1. Acute kidney injury. 2. Hypotension. 3. Urinary tract infection. 4. Sepsis. 5. Chronic kidney disease stage IIIA. 6. Hypothyroidism. 7. Hypertension. 8. Hyperlipidemia. Plan: We will go ahead and admit the patient to hospital for further evaluation and management of this problem. The patient is appropriate for inpatient and will continue her IV fluid per order. We will repeat blood work tomorrow. Continue her IV antibiotics, which is Levaquin per order. For her hypertension, she takes enalapril and Bystolic and we will not give those antihypertensive medication at this point. Her other usual home medications will be continued per order. IV fluid will be continued per order. I will see her tomorrow for followup. DVT prophylaxis was ordered using Lovenox. Repeat blood work tomorrow morning and depending on her condition and blood work results we will decide if we can possibly discharge her to go home tomorrow or not. Details and plan of treatment discussed with the patient and patient's who was at bedside. Total time spent 75 minutes including communication with ER physician, review of recent hospital admission record, performing evaluation and management for this hospital admission and communicatioin with ICU nurse prior to this admission regarding her symptoms. INDER/MODL Voice ID: [id number] JASVIR
[2024-04-25 06:01] LABS: Absolute Eosinophils 0.1 K/uL (0-0.5); Absolute Lymphocytes (CBC) 1.3 K/uL (0.7-4.9); Absolute Monocytes 0.3 K/uL (0.1-1.3); Absolute Neutrophil 1.4 K/uL (1.8-8.0); Basophils % 1.1 % (0-1.3); Eosinophils % 2.8 % (0-4.4); Hematocrit 25.4 % (36.0-45.0); Hemoglobin 8.3 g/dL (12.0-15.0); Lymphocytes % 42.6 % (15.3-44.8); MCH 30.2 pg (27.0-35.0); MCHC 32.7 g/dL (32.0-36.0); MCV 92.3 fL (80-100); MPV 6.8 fL (7.6-11.3); Monocytes % 10.7 % (3.3-12.3); Neutrophils % 42.8 % (41.7-73.7); Platelets 246 thou/uL (152-406); RBC Red Blood Cell Count 2.75 M/uL (3.86-4.86); Red Cell Distribution Width 18.5 % (12.1-15.2)
[2024-04-25 06:24] LABS: Anion Gap 5.5 mEq/L (5.0-15.0); Potassium 4.5 mEq/L (3.5-5.1)
[2024-04-25] MEDS: ARMODAFINIL 50 MG PO SCH (09:00)
[2024-04-25] MEDS: SOLRIAMFETOL HCL 150 MG PO SCH (09:00)
[2024-04-25] MEDS: MONTELUKAST 10 MG TAB PO SCH (09:02)
[2024-04-25] MEDS: buPROPion HCL 100 MG TAB PO SCH (09:02)
[2024-04-25] MEDS: BUSPIRONE HCL 5 MG TABLET PO SCH (09:03)
[2024-04-25] MEDS: ARIPiprazole 5 MG TAB PO SCH (09:03)
[2024-04-25] MEDS: VALACYCLOVIR 500 MG TAB PO SCH (09:03)
[2024-04-25] MEDS: EZETIMIBE 10 MG TAB PO SCH (09:04)
[2024-04-25] MEDS: ATORVASTATIN 20 MG TAB PO SCH (09:04)
[2024-04-25 12:38] VITALS: O2SAT 99
[2024-04-25 13:03] VITALS: BP 149/71; TEMP 96.5
[2024-04-25] MEDS ORDERED: Levofloxacin 250mg IV 250 MG/50 ML BAG IV SCH (22:00)
--- NOTE | 2024-04-26 15:01 | EKG ---
Test Date: 2024-04-23 Test Time: 16:35:32 Asp Web Developer: SHIRIN MEASUREMENT RESULTS: Intervals: Rate: 106 ME: 158 QRSD: 76 QT: 328 QTc: 435 [place]: P: 68 ME: 158 QRS: 55 T: 50 INTERPRETIVE STATEMENTS: Sinus tachycardia Cannot rule out Anterior infarct, age undetermined Abnormal ECG Compared to ECG 04/19/2024 02:12:46 No significant changes Electronically Signed On 04-26-24 14:53:35 CDT by Real Blas
--- NOTE | 2024-04-28 06:04 | DS ---
Date of Discharge: 04/25/2024 Disposition: Discharged to go home. Physical Examination: HEENT: Unremarkable. Lungs: Clear to auscultation. Heart: Sounds normal. Abdomen: Soft. Bowel sounds normal. No guarding, rigidity, tenderness. No distention. Extremities: No leg edema. Final Diagnoses: 1. Acute kidney injury. 2. Hypotension. 3. Urinary tract infection. 4. Sepsis. 5. Chronic kidney disease, stage IIIA. 6. Hypothyroidism. 7. Hypertension. 8. Hyperlipidemia. Discharge Medications And Instructions: Continue all prior home medication except following changes. 1. Do not take prazosin. 2. Stop Vasotec which is enalapril. 3. Stop potassium chloride. 4. Check your blood pressure daily and take bisoprolol 5 mg daily, only if your systolic blood pressure is higher than 140. 5. Apply [id number] lidocaine patch to shoulder and knee daily as needed for pain. 6. Take Tylenol 500 mg 4 times a day as needed for joint pain. 7. Do not take any Aleve, naproxen, Motrin, ibuprofen type of medication. 8. Continue Levaquin as prescribed at the time of last hospital discharge. 9. Follow up at my office on 04/28/2024 or 04/29/2024. Laboratory Data: Upon admission on 04/23/2024, white count was 4.5, hemoglobin 10, platelets 269. Today, white count 3.2, hemoglobin 8.3, platelets 246. For chemistry upon admission, sodium 138, potassium 4.2, chloride 107, bicarb 25, BUN 16, creatinine 1.84, glucose 100. Today, sodium 141, potassium 4.5, chloride 112, bicarb 28, BUN 9, creatinine 1.17, glucose 106. Hospital Course: This is a 63-year-old pleasant female patient, who was admitted to the hospital after she came into emergency room with low blood pressure and high pulse rate. Please see dictated H and P for more information. After the patient was evaluated in the ER, she was admitted to the hospital with acute kidney. She was continued on her antibiotic Levaquin which she was taking as outpatient and we gave her IV fluid hydration, which actually helped to improve her renal function. Her blood pressure medications were kept on hold. She started to ambulate very well, tolerating diet very well, and overall has felt much better and was discharged to go home in improved and stable condition with above-mentioned medications and instructions. Total time spent 40 minutes. INDER/MODL Voice ID: [id number] Report ID: [id number] MTDD
== END 2024-04-25 14:00 | disposition home or self-care (01) | DRG 682 ==
LOC: ER 16:24 → ERHOLD 18:24 → 2ND 20:20 → OBSVTOIN 04-24 19:44
PROVIDERS: ADMIT Internal Medicine; ATTEND Internal Medicine
DX: N17.9 Acute kidney failure, unspecified (principal); A41.9 Sepsis, unspecified organism; N39.0 Urinary tract infection, site not specified; E78.5 Hyperlipidemia, unspecified; I12.9 Hypertensive chronic kidney disease with stage 1 through stage 4 chronic kidney disease, or unspecified chronic kidney disease; N18.31 Chronic kidney disease, stage 3a; D63.1 Anemia in chronic kidney disease; E03.9 Hypothyroidism, unspecified; M06.9 Rheumatoid arthritis, unspecified; R00.0 Tachycardia, unspecified; R73.01 Impaired fasting glucose; R29.6 Repeated falls; Z91.81 History of falling; Z88.0 Allergy status to penicillin; Z88.5 Allergy status to narcotic agent; Z88.1 Allergy status to other antibiotic agents; Z90.49 Acquired absence of other specified parts of digestive tract; Z96.642 Presence of left artificial hip joint; Z79.899 Other long term (current) drug therapy; Z90.710 Acquired absence of both cervix and uterus; Z91.048 Other nonmedicinal substance allergy status
CPT/HCPCS: 36415; 71045; 71250; 74176; 80048; 80076; 81001; 83605; 83690; 83735; 83880; 84443; 84484; 85025; 85610; 87040; 93005; 93970; 96361; 96372; 96374; 96375; 99285; G0378; J1650; J1940; J2405; J3010; J7030

== ENCOUNTER 2024-05-10 09:53 | Emergency (ER) | payer BC, OTHER ==
[2024-05-10 10:58] LABS: Absolute Eosinophils 0.1 K/uL (0-0.5); Absolute Lymphocytes (CBC) 1.1 K/uL (0.7-4.9); Absolute Monocytes 0.3 K/uL (0.1-1.3); Basophils % 0.6 % (0-1.3); Eosinophils % 1.3 % (0-4.4); Hematocrit 28.6 % (36.0-45.0); Hemoglobin 9.4 g/dL (12.0-15.0); Lymphocytes % 24.1 % (15.3-44.8); MCH 28.9 pg (27.0-35.0); MCHC 32.8 g/dL (32.0-36.0); MCV 88.1 fL (80-100); MPV 7.2 fL (7.6-11.3); Monocytes % 7.2 % (3.3-12.3); Neutrophils % 66.8 % (41.7-73.7); Nucleated Red Blood Cells % 0.2 % (0-0); Platelets 234 thou/uL (152-406); RBC Red Blood Cell Count 3.24 M/uL (3.86-4.86); Red Cell Distribution Width 16.4 % (12.1-15.2)
[2024-05-10 11:04] LABS: PT Prothrombin Time 10.8 SECONDS (9.4-12.5); PTT, Activated Partial Thromb 28.4 SECONDS (24.3-36.9); Protime INR 0.98
[2024-05-10 11:07] LABS: Albumin 3.4 g/dL (3.4-5.0); Albumin/Globulin Ratio 1.2 (1.1-1.8); Bilirubin Total 0.3 mg/dL (0.2-1.0); Globulin 2.9 g/dL (2.3-3.5); Protein, Total 6.3 g/dL (6.4-8.2)
[2024-05-10 11:12] LABS: Specific Gravity 1.008 (1.005-1.030); Urine Bilirubin NEGATIVE (Negative); Urine Blood Negative (Negative); Urine Clarity Clear (Clear); Urine Color Colorless (Yellow); Urine Glucose NEGATIVE (Negative); Urine Ketones NEGATIVE (Negative); Urine Microscopic Reflex YN NO UMIC; Urine Nitrite NEGATIVE (Negative); Urine Protein NEGATIVE (Negative); Urine Urobilinogen Normal (Normal)
--- NOTE | 2024-05-10 11:35 | RAD REPORT ---
EXAM DESCRIPTION: CTAbdomen Pelvis W Contrast - 05/10/2024 11:23 am CLINICAL HISTORY: Abd pain;Flank pain;Hematuria;Pyelonephritis COMPARISON: CT ABD PELVIS W CONTRAST dated 01/19/2016 TECHNIQUE: CT of the abdomen and pelvis was performed with IV contrast. All CT scans are performed using dose optimization technique as appropriate and may include automated exposure control or mA/KV adjustment according to patient size. FINDINGS: Lower chest: Partially imaged left breast prosthesis. Liver: No acute abnormality or suspicious lesions. Biliary: Cholecystectomy. Stomach: No significant focal abnormality. Duodenum: No significant focal abnormality. Pancreas: No significant abnormality. Spleen: No significant abnormality. Adrenal: Bilateral adrenal calcifications are unchanged. Kidney/ureter: No hydronephrosis. No renal calculi. No ureteral calculi. Note that the distal ureters are obscured by streak artifact from the hip arthroplasties. Retroperitoneum: No retroperitoneal adenopathy. Vascular: No aneurysm. Bowel: No significant focal abnormality. Peritoneum: No ascites or free air. Bladder: Bladder stimulator. Reproductive: No adnexal masses. Bones: No acute fracture. L4-5 fusion. Interbody spacer. Grade 1 anterolisthesis of L4 on L5. Hip art hroplasties. SI joint spaces. Other: n/a IMPRESSION: Possible cystitis. No hydronephrosis. Note that the distal ureters are obscured by strea k artifact from the hip arthroplasties.
--- NOTE | 2024-05-10 12:19 | ER ---
Nurse's Notes [facility] Name: Lydia Hanson Age: 63 yrs Sex: Female : 1960 Arrival Date: 05/10/2024 Time: 09:53 Bed 18 Private MD: Diagnosis: Dysuria Presentation: 05/10 10:07 Chief complaint: Patient states: Back/pelvic pain, dysuria with spotting, not feeling ll1 well for 5 days. Coronavirus screen: Client denies travel out of the [place] in the last 14 days. At this time, the client does not indicate any symptoms associated with coronavirus-19. Ebola Screen: Patient denies travel to an Ebola-affected area in the 21 days before illness onset. Initial Sepsis Screen: Does the patient meet any 2 criteria? No. Patient's initial sepsis screen is negative. Does the patient have a suspected source of infection? No. Patient's initial sepsis screen is negative. Risk Assessment: Do you want to hurt yourself or someone else? Patient reports no desire to harm self or others. Onset of symptoms was May 05, 2024. 10:07 Method Of Arrival: Ambulatory ll1 10:07 Acuity: RIA 3 ll1 Triage Assessment: 10:09 General: Appears uncomfortable, Behavior is calm, cooperative, appropriate for age. ll1 Pain: Complains of pain in pelvis Pain currently is 8 out of 10 on a pain scale. Quality of pain is described as aching, Pain began 5 days. GI: Reports lower abdominal pain. : Reports burning with urination, cramping, pain with urination, urgency, oliguria. Historical: - Allergies: 10:07 Adhesives; ll1 10:07 CEPHALOSPORINS; ll1 10:07 Codeine; ll1 10:07 PENICILLINS; ll1 10:07 TETRACYCLINES; ll1 - PMHx: 10:07 CKD; Depression; Hyperlipidemia; Hypertension; L hip replacement; multiple falls ll1 (hysterectomy); narcolepsy; Sleep Apnea; Sleep Apnea; Thyroid problem; V-tach; - PSHx: 10:07 Cholecystectomy; hysterectomy; ll1 - Immunization history:: Adult Immunizations up to date. - Infectious Disease History:: Denies. - Social history:: Smoking status: Patient denies any tobacco usage or history of. Screenin:[facility] Fall Risk Assessment (Adult) History of falling in the last 3 months, mb9 including since admission No falls in past 3 months (0 pts) Confusion or Disorientation No (0 pts) Intoxicated or Sedated No (0 pts) Impaired Gait No (0 pts) Mobility Assist Device Used No (0 pt) Altered Elimination No (0 pt) Score/Fall Risk Level 0 - 2 = Low Risk Oriented to surroundings, Maintained a safe environment, Educated pt \T\ family on fall prevention, incl call for assistance when getting out of bed. Abuse screen: Denies threats or abuse. Nutritional screening: No deficits noted. Tuberculosis screening: No symptoms or risk factors identified. Assessment: 10:10 General: Appears in no apparent distress. Behavior is calm, cooperative. Pain: mb9 Complains of pain in back Quality of pain is described as throbbing. Neuro: Perez Agitation-Sedation Scale (RASS): 0 - Alert and Calm Level of Consciousness is awake, alert, obeys commands, Oriented to person, place, time, situation, Appropriate for age. Cardiovascular: Patient's skin is warm and dry. Respiratory: Airway is patent Respiratory effort is even, unlabored, Respiratory pattern is regular, symmetrical, Breath sounds are clear bilaterally. GI: Abdomen is round non-distended. : Reports burning with urination, urgency, urinary frequency. EENT: No signs and/or symptoms were reported regarding the EENT system. Derm: Skin is pink, warm \T\ dry. Musculoskeletal: Range of motion: intact in all extremities. 11:15 Reassessment: No changes from previously documented assessment. Patient and/or family mb9 updated on plan of care and expected duration. Pain level reassessed. Patient is alert, oriented x 3, equal unlabored respirations, skin warm/dry/pink. 12:37 Reassessment: Patient appears in no apparent distress at this time. No changes from mb9 previously documented assessment. Patient and/or family updated on plan of care and expected duration. Pain level reassessed. Patient is alert, oriented x 3, equal unlabored respirations, skin warm/dry/pink. Vital Signs: 10:07 BP 180 / 92; Pulse 79; Resp 17; Temp 98.6; Pulse Ox 98% ; Weight 97.98 kg; Height 5 ft. ll1 7 in. ; Pain 8/10; 10:15 BP 148 / 78; Pulse 78; Resp 18; Pulse Ox 100% on R/A; mb9 11:45 BP 162 / 78; Pulse 74; Resp 16; Pulse Ox 100% on R/A; mb9 12:37 BP 145 / 68; Pulse 70; Resp 18; Pulse Ox 100% on R/A; mb9 10:07 Body Mass Index 33.83 (97.98 kg, 170.18 cm) ll1 10:07 Pain Scale: Adult 1 ED Course: 10:01 Patient arrived in ED. mg5 10:01 Janett Hopkins PA-C is PHCP. sb4 10:01 Carlos Rios DO is Attending Physician. sb4 10:02 Arm band placed on Patient placed in an exam room, on a stretcher. ll1 10:04 Lydia Ayala, MARITA is Primary Nurse. mb9 10:09 Triage completed. ll1 10:10 Placed in gown. Bed in low position. Call light in reach. Side rails up X 1. Provided mb9 Education on: press call light if needing anything. Client placed on continuous cardiac and pulse oximetry monitoring. NIBP monitoring applied. ekg monitor on. Door closed. Noise minimized. Warm blanket given. Pillow given. 10:25 First set of blood cultures drawn by me. mb9 10:31 Second set of blood cultures drawn by me. mb9 10:36 Initial lab(s) drawn, by me, sent to lab. mb9 10:37 Missed attempt(s): 22 gauge in right antecubital area. Bleeding controlled, band aid mb9 applied, catheter tip intact. 10:53 Accessed Port-a-Cath. using accessed w/ # 20 Mckee needle, 20G Nexia IV catheter mb9 ,sterile technique, per hospital protocol. Clean \T\ dry. Dressing intact. Good blood return. Flushes easily. 10:53 No provider procedures requiring assistance completed. mb9 11:01 Urine collected: clean catch specimen, clear. mb9 11:25 CT Abd/Pelvis - IV Contrast Only In Process Unspecified. EDMS 12:10 Assisted to bathroom. mb9 12:18 Santosh Garcia MD is Referral Physician. sb4 12:38 IV discontinued, intact, bleeding controlled, No redness/swelling at site. Pressure mb9 dressing applied. Administered Medications: 12:29 Not Given (Other Intervention Used): heparin flush5 units IVP once sb4 12:29 Drug: HEParin Flush IVP 100 units IVP once Route: IVP; Site: Port-a-cath; mb9 12:37 Follow up: Response: No adverse reaction mb9 Medication: 10:11 VIS not applicable for this client. mb9 Outcome: 12:18 Discharge ordered by . sb4 12:38 Discharged to home ambulatory, mb9 12:38 Condition: stable 12:38 Discharge instructions given to patient, Instructed on discharge instructions, follow up and referral plans. Demonstrated understanding of instructions, follow-up care, 12:38 Patient left the ED. mb9 Signatures: Dispatcher [employer] EDAnastasiia Perez RN RN ll1 Janett Hopkins, SARAHI MCCLAIN sb4 Lydia Ayala RN RN mb9 Elen Tiwari mg5
--- NOTE | 2024-05-10 12:20 | EDPHYS ---
Physician Documentation [facility] Name: Lydia Hanson Age: 63 yrs Sex: Female : 1960 Arrival Date: 05/10/2024 Time: 09:53 Bed 18 Private MD: ED Physician Carlos Rios HPI: 05/10 10:29 This 63 yrs old Female presents to ER via Ambulatory with complaints of Urinary Problem.sb4 10:29 patient states that she has been dealing with a UTI for about 3 weeks now. she was sb4 initially hospitalized, discharged, and rehospitalized. states she was on levaquin first which made her feel terrible then either cipro or cephalexin. states she has been feeling poorly the last few days with right sided back pain, dysuria, hematuria. went to see Dr. Garcia today who sent her here for further evaluation. Historical: - Allergies: 10:07 Adhesives; ll1 10:07 CEPHALOSPORINS; ll1 10:07 Codeine; ll1 10:07 PENICILLINS; ll1 10:07 TETRACYCLINES; ll1 - PMHx: 10:07 CKD; Depression; Hyperlipidemia; Hypertension; L hip replacement; multiple falls ll1 (hysterectomy); narcolepsy; Sleep Apnea; Sleep Apnea; Thyroid problem; V-tach; - PSHx: 10:07 Cholecystectomy; hysterectomy; ll1 - Immunization history:: Adult Immunizations up to date. - Infectious Disease History:: Denies. - Social history:: Smoking status: Patient denies any tobacco usage or history of. ROS: 10:29 Respiratory: Negative for shortness of breath, cough, wheezing, and pleuritic chest sb4 pain, 10:29 Constitutional: Positive for malaise, 10:29 Abdomen/GI: Positive for abdominal pain, 10:29 : Positive for hematuria, burning with urination, 10:29 All other systems are negative, Exam: 10:29 Constitutional: This is a well developed, well nourished patient who is awake, alert, sb4 and in no acute distress. Head/Face: Normocephalic, atraumatic. Eyes: Extra-ocular motions intact. Periorbital areas with no swelling, redness, or edema. ENT: Mucous membranes moist. Cardiovascular: Regular rate and rhythm with a normal S1 and S2. Respiratory: Lungs have equal breath sounds bilaterally, clear to auscultation and percussion. No rales, rhonchi or wheezes noted. No increased work of breathing, no retractions or nasal flaring. Abdomen/GI: Soft, non-tender, no distension. Skin: Warm, dry with normal turgor. Normal color with no rashes, no lesions, and no evidence of cellulitis. MS/ Extremity: Pulses equal, no cyanosis. Neurovascular intact. Full, normal range of motion. Vital Signs: 10:07 BP 180 / 92; Pulse 79; Resp 17; Temp 98.6; Pulse Ox 98% ; Weight 97.98 kg; Height 5 ft. ll1 7 in. ; Pain 8/10; 10:15 BP 148 / 78; Pulse 78; Resp 18; Pulse Ox 100% on R/A; mb9 11:45 BP 162 / 78; Pulse 74; Resp 16; Pulse Ox 100% on R/A; mb9 12:37 BP 145 / 68; Pulse 70; Resp 18; Pulse Ox 100% on R/A; mb9 10:07 Body Mass Index 33.83 (97.98 kg, 170.18 cm) ll1 10:07 Pain Scale: Adult ll1 MDM: 10:02 Patient medically screened. sb4 11:01 External Records Reviewed: Inpatient record: urine culture from 04/19/24 grew klebsiella sb4 pneumonia with resistance to ampicillin and macrobid, otherwise pansensitive. blood cultures yielded no growth. 11:41 Data reviewed: vital signs, nurses notes, lab test result(s), radiologic studies, and sb4 as a result, I will discharge patient. Consideration of Admission/Observation Escalation of care including admission/observation considered. Management of patient was discussed with the following: Primary Care Provider: Dr. Garcia. Care significantly affected by the following chronic conditions: Hypertension, Obesity. Counseling: I had a detailed discussion with the patient and/or guardian regarding the historical points, exam findings, and any diagnostic results supporting the discharge/admit diagnosis, the presence of at least one elevated blood pressure reading (>120/80) during this emergency department visit, lab results, radiology results, to return to the emergency department if symptoms worsen or persist or if there are any questions or concerns that arise at home. 12:10 Awaiting: private physician, Dr. Dr. Garcia to call back. sb4 05/10 10:13 Order name: Blood Culture Adult (2) sb4 05/10 10:13 Order name: CBC with Diff; Complete Time: 11:00 sb4 05/10 10:13 Order name: CMP; Complete Time: 11:13 sb4 05/10 10:13 Order name: Lactate w/ 2H reflex if indic.; Complete Time: 11:13 sb4 05/10 10:13 Order name: Protime (+inr); Complete Time: 11:07 sb4 05/10 10:13 Order name: Ptt, Activated; Complete Time: 11:07 sb4 05/10 10:13 Order name: Urinalysis w/ reflexes; Complete Time: 11:13 sb4 05/10 10:57 Order name: CT Abd/Pelvis - IV Contrast Only; Complete Time: 11:37 sb4 05/10 10:13 Order name: Cardiac monitoring; Complete Time: 10:37 sb4 05/10 10:13 Order name: IV Saline Lock - Large Bore; Complete Time: 10:37 sb4 05/10 10:13 Order name: Labs collected and sent; Complete Time: 10:37 sb4 05/10 10:13 Order name: O2 Per Protocol; Complete Time: 10:37 sb4 05/10 10:13 Order name: O2 Sat Monitoring; Complete Time: 10:37 sb4 05/10 10:13 Order name: Vital Signs; Complete Time: 10:37 sb4 Administered Medications: 12:29 Not Given (Other Intervention Used): heparin flush5 units IVP once sb4 12:29 Drug: HEParin Flush IVP 100 units IVP once Route: IVP; Site: Port-a-cath; mb9 12:37 Follow up: Response: No adverse reaction mb9 Disposition: 11:12 I was immediately available on-site in the Emergency Department for consultation in the ms3 care of the patient. Disposition Summary: 05/10/24 12:18 Discharge Ordered Notes: Location: Home sb4 Problem: an ongoing problem sb4 Symptoms: are unchanged sb4 Condition: Stable sb4 Diagnosis - Dysuria sb4 Followup: sb4 - With: Santosh Garcia MD - When: As needed - Reason: Recheck today's complaints, Re-evaluation by your physician Discharge Instructions: - Discharge Summary Sheet sb4 - Dysuria sb4 Forms: - Patient Portal Instructions sb4 - Leadership Thank You Letter sb4 Signatures: Dispatcher [employer] EDMS Anastasiia Lagos, RN RN ll1 Rios, Acrlos, DO DO ms3 Janett Hopkins PAMitchel PAMitchel sb4 Lydia Ayala, RN RN mb9 Corrections: (The following items were deleted from the chart) 10:13 10:13 BLOOD CULTURE*+BA.LAB.BRZ ordered. EDMS EDMS 10:13 10:13 CBC+H.LAB.BRZ ordered. EDMS EDMS 10:13 10:13 COMPREHENSIVE METABOLIC PANEL+C.LAB.BRZ ordered. EDMS EDMS 10:13 10:13 LACTATE+C.LAB.BRZ ordered. EDMS EDMS 10:13 10:13 PROTIME (+INR)+COAG.LAB.BRZ ordered. EDMS EDMS 10:13 10:13 PTT, ACTIVATED+COAG.LAB.BRZ ordered. EDMS EDMS 10:13 10:13 Urinalysis+U.LAB.BRZ ordered. EDMS EDMS 11:02 11:01 External Records Reviewed: Inpatient record: urine culture from 04/19/24 grew sb4 klebsiella pneumonia with resistance to ampicillin and macrobid, otherwise pansensitive . sb4 11:04 10:28 Pelvis Complete+US.RAD.BRZ ordered. EDMS EDMS 11:44 11:44 Urine Culture+BA.LAB.BRZ ordered. EDMS EDMS
[2024-05-10] MEDS ORDERED: HEPARIN 500 UNIT/5 ML SYR IV ONE (12:23)
[2024-05-10 12:58] VITALS: BP 145/68; TEMP 98.6; O2SAT 100
== END 2024-05-10 12:38 | disposition home or self-care (01) ==
LOC: ER 09:53
DX: R30.0 Dysuria (principal); R31.9 Hematuria, unspecified; Z88.0 Allergy status to penicillin; Z88.1 Allergy status to other antibiotic agents; Z88.3 Allergy status to other anti-infective agents; Z88.5 Allergy status to narcotic agent; Z91.048 Other nonmedicinal substance allergy status
CPT/HCPCS: 87040 ×2; 85025; 36415; 85610; 83605; 85730; 81003; 80053; 74177; 96374; 99285; Q9967; J1642; J1644

== ENCOUNTER 2024-06-14 17:54 | Observation (INO) | payer BC ==
[2024-06-14] MEDS ORDERED: ACETAMINOPHEN 500 MG TAB ONE (18:26)
[2024-06-14] MEDS ORDERED: NA CHLORIDE 0.9% 1,000 ML ONE ×2 (18:53→21:47)
--- NOTE | 2024-06-14 18:53 | RAD REPORT ---
EXAM DESCRIPTION: Tracy Single View06/14/2024 6:48 pm CLINICAL HISTORY: fever COMPARISON: May 2024 FINDINGS: The lungs appear clear of acute infiltrate. The heart is borderline enlarged quality assurance monitor in place. Central venous line present IMPRESSION: No acute abnormalities displayed
[2024-06-14 19:02] LABS: Absolute Lymphocytes (CBC) 0.5 K/uL (0.7-4.9); Absolute Monocytes 0.4 K/uL (0.1-1.3); Absolute Neutrophil 2.6 K/uL (1.8-8.0); Basophils % 0.5 % (0-1.3); Eosinophils % 0.3 % (0-4.4); Hematocrit 30.9 % (36.0-45.0); Lymphocytes % 15.3 % (15.3-44.8); MCH 28.4 pg (27.0-35.0); MCHC 32.4 g/dL (32.0-36.0); MCV 87.5 fL (80-100); Monocytes % 11.2 % (3.3-12.3); Neutrophils % 72.7 % (41.7-73.7); Nucleated Red Blood Cells % 0.3 % (0-0); Platelets 191 thou/uL (152-406); RBC Red Blood Cell Count 3.53 M/uL (3.86-4.86); Red Cell Distribution Width 17.5 % (12.1-15.2)
[2024-06-14 19:08] LABS: PT Prothrombin Time 12.7 SECONDS (9.4-12.5); PTT, Activated Partial Thromb 25.2 SECONDS (24.3-36.9); Protime INR 1.14
[2024-06-14 19:13] LABS: Albumin 3.6 g/dL (3.4-5.0); Anion Gap 7.6 mEq/L (5.0-15.0); Bilirubin Total 0.5 mg/dL (0.2-1.0); Globulin 3.6 g/dL (2.3-3.5); Protein, Total 7.2 g/dL (6.4-8.2); SARS-CoV-2 Antigen CONTROL BLUE LINE VIS/BG OK
[2024-06-14 19:14] LABS: Potassium 3.6 mEq/L (3.5-5.1); SARS-CoV-2 Antigen Rapid Res Positive (Negative)
--- NOTE | 2024-06-14 19:43 | EDPHYS ---
Physician Documentation [facility] Name: Lydia Hanson Age: 64 yrs Sex: Female : 1960 Arrival Date: 06/14/2024 Time: 17:54 Bed 16 Private MD: ED Physician Lizzy Villanueva HPI: 06/14 18:38 This 64 yrs old Female presents to ER via Wheelchair with complaints of General kb Weakness. 18:38 Pt is a 64 year old female who presents for generalized weakness that started this kb morning, cough for 3 days. States she had diarrhea 3-4 days ago, but that has resolved. Denies nausea, vomiting, chest pain. No aggravating or alleviating factors. Historical: - Allergies: 18:10 Adhesives; hb 18:10 CEPHALOSPORINS; hb 18:10 TETRACYCLINES; hb 18:10 PENICILLINS; hb 18:10 Codeine; hb - PMHx: 18:10 multiple falls (hysterectomy); Hypertension; narcolepsy; Sleep Apnea; Hyperlipidemia; hb CKD; Depression; V-tach; L hip replacement; Thyroid problem; - PSHx: 18:10 Cholecystectomy; hysterectomy; hb - Immunization history:: Adult Immunizations up to date. - Infectious Disease History:: Denies. - Social history:: Smoking status: . ROS: 18:38 Constitutional: As per HPI kb Exam: 18:38 Constitutional: This is a well developed, well nourished patient who is awake, alert, kb and in no acute distress. Head/Face: Normocephalic, atraumatic. ENT: Moist Mucous membranes Cardiovascular: Regular rate Respiratory: Respirations even and unlabored. No increased work of breathing. Talking in full sentences Abdomen/GI: Soft, non-tender. No distention Skin: Warm, dry with normal turgor. Normal color. MS/ Extremity: Pulses equal, no cyanosis. Neurovascular intact. Full, normal range of motion. Neuro: Awake and alert, GCS 15, oriented to person, place, time, and situation. Moves all extremities. Normal gait. 19:20 ECG was reviewed by the Attending Physician. kb Vital Signs: 18:08 BP 154 / 78; Pulse 103; Resp 20; Temp 101.9(O); Pulse Ox 98% on R/A; Weight 95.25 kg; hb Height 5 ft. 7 in. ; Pain 10/10; 19:13 BP 135 / 70; Pulse 88; Resp 17; Temp 99.6; Pulse Ox 99% on R/A; Pain 0/10; rg5 18:08 Body Mass Index 32.89 (95.25 kg, 170.18 cm) hb 18:08 Pain Scale: Adult hb 19:13 Pain Scale: Adult rg5 MDM: 18:01 Patient medically screened. kb 18:38 Data reviewed: vital signs, nurses notes. kb 19:32 Differential diagnosis: flu, covid, uri. Management of patient was discussed with the kb following: Primary Care Provider: Dr Garcia. Pt ok for discharge if able to ambulate. Wants pt put on paxlovid 2pills BID (renal dosing). . Historians other than the Patient: Spouse/Significant Other: spouse. Counseling: I had a detailed discussion with the patient and/or guardian regarding the historical points, exam findings, and any diagnostic results supporting the discharge/admit diagnosis, lab results, radiology results. 19:37 External Records Reviewed: Inpatient record: reviewed home med list from recent admission. 19:41 Consideration of Admission/Observation Patient was admitted/placed on observation. Escalation of care including admission/observation considered. Management of patient was discussed with the following: Primary Care Provider: Dr Garcia agrees with observation admission. ED course: Pt states she cannot ambulate due to weakness. Pt and uncomfortable going home due to weakness and inability to perform ADLs. . 06/14 18:10 Order name: Blood Culture Adult (2) 06/14 18:10 Order name: CBC with Diff; Complete Time: 19:06 06/14 18:10 Order name: CMP; Complete Time: 19:18 06/14 18:10 Order name: Lactate w/ 2H reflex if indic.; Complete Time: 19:18 kb 06/14 18:10 Order name: Protime (+inr); Complete Time: 19:09 kb 06/14 18:10 Order name: Ptt, Activated; Complete Time: 19:09 kb 06/14 18:10 Order name: Urinalysis w/ reflexes kb 06/14 18:11 Order name: SARS-COV-2 Antigen Rapid; Complete Time: 19:18 kb 06/14 18:11 Order name: Flu; Complete Time: 19:18 kb 06/15 09:35 Order name: CBC with Automated Diff EDMS 06/15 09:41 Order name: Basic Metabolic Panel EDMS 06/15 11:16 Order name: CBC Smear Scan EDMS 06/14 18:10 Order name: Chest Single View XRAY; Complete Time: 19:01 kb 06/14 18:11 Order name: Accucheck; Complete Time: 18:42 kb 06/14 18:11 Order name: Cardiac monitoring; Complete Time: 18:42 kb 06/14 18:11 Order name: EKG - Nurse/Tech; Complete Time: 19:28 kb 06/14 18:11 Order name: IV Saline Lock - Large Bore; Complete Time: 18:42 kb 06/14 18:11 Order name: Labs collected and sent; Complete Time: 18:42 kb 06/14 18:11 Order name: O2 Per Protocol; Complete Time: 18:42 kb 06/14 18:11 Order name: O2 Sat Monitoring; Complete Time: 18:42 kb 06/14 18:11 Order name: Vital Signs; Complete Time: 18:42 kb 06/14 19:36 Order name: Misc. Order: ambulate pt; Complete Time: 20:03 kb EC:20 Rate is 90 beats/min. Rhythm is regular. QRS [place] is Normal. [place] interval is normal at kb 166 msec. QRS interval is normal at 80 msec. QT interval is normal at 408 msec. Administered Medications: 18:43 Drug: Acetaminophen PO 1000 mg PO once Route: PO; bp 19:30 Follow up: Response: No adverse reaction ha1 18:57 Drug: NS 0.9% IV 1000 ml IV at 1000 ml once Route: IV; Rate: 1000 ml; Site: right bp antecubital; 21:40 Follow up: Response: No adverse reaction; IV Status: Completed infusion; IV Intake: ha1 1000ml Disposition Summary: 06/14/24 19:42 Hospitalization Ordered Notes: Hospitalization Status: Observation kb Provider: Joshua Garcia Condition: Stable kb Problem: new kb Symptoms: are unchanged kb Bed/Room Type: Standard kb Location: [facility] ER HOLD(06/14/24 20:20) vc1 Room Assignment: ERHOLD-(06/14/24 20:20) vc1 Diagnosis - Weakness kb - SARS-associated coronavirus as the cause of diseases classified elsewhere kb Discharge Instructions: - Discharge Summary Sheet kb - COVID-19 kb - Viral Illness, Adult kb Forms: - Medication Reconciliation Form kb - SBAR form kb - Leadership Thank You Letter kb Prescriptions: - Paxlovid 300 mg (150 mg x 2)-100 mg Oral Tablet, Dose Pack - take 1 dose pack ORAL route as directed on dose pack take ONE 150 mg tablet of kb nirmatrelvir with ONE 100 mg tablet of ritonavir twice daily for 5 days; 10 tablet; Refills: 0, Product Selection Permitted Signatures: Dispatcher [employer] EDMS Naye Nieto, INSTRUMENT PERSON-C INSTRUMENT PERSON-CkRolanda Romero, RN RN hb Ziyad Zamora, RN RN bp Juliet Lucio, MARITA RN vc1 Ava Caballero RN ha1 Corrections: (The following items were deleted from the chart) 18:11 18:11 BLOOD CULTURE*+BA.LAB.BRZ ordered. EDMS EDMS 18:11 18:11 CBC+H.LAB.BRZ ordered. EDMS EDMS 18:11 18:11 COMPREHENSIVE METABOLIC PANEL+C.LAB.BRZ ordered. EDMS EDMS 18:11 18:11 LACTATE+C.LAB.BRZ ordered. EDMS EDMS 18:11 18:11 PROTIME (+INR)+COAG.LAB.BRZ ordered. EDMS EDMS 18:11 18:11 PTT, ACTIVATED+COAG.LAB.BRZ ordered. EDMS EDMS 18:11 18:11 Urinalysis+U.LAB.BRZ ordered. EDMS EDMS 18:11 18:11 SARS-COV-2 Antigen Rapid+I.LAB.BRZ ordered. EDMS EDMS 18:11 18:11 Influenza Screen (A \T\ B)+BA.LAB.BRZ ordered. EDMS EDMS 18:11 18:11 Chest Single View+RAD.RAD.BRZ ordered. EDMS EDMS 20:20 19:42 Telemetry/MedSurg (observation) vc1 20:20 19:42 kb vc1
--- NOTE | 2024-06-14 19:43 | ER ---
Nurse's Notes [facility] Name: Lydia Hanson Age: 64 yrs Sex: Female : 1960 Arrival Date: 06/14/2024 Time: 17:54 Bed 16 Private MD: Diagnosis: Weakness;SARS-associated coronavirus as the cause of diseases classified elsewhere Presentation: 06/14 18:08 Chief complaint: generalized weakness days. This morning she was so weak getting out of hb bed that her legs gave out and was on the hardwood floor x 2 hours, now c/o pain all over 08/19. Coronavirus screen: At this time, the client does not indicate any symptoms associated with coronavirus-19. Ebola Screen: No symptoms or risks identified at this time. Initial Sepsis Screen: Does the patient meet any 2 criteria? Temp <36.0*C (96.8*F)) or > 38.3*C (100.9*F). HR > 90 bpm. Yes Does the patient have a suspected source of infection? No. Patient's initial sepsis screen is negative. Risk Assessment: Do you want to hurt yourself or someone else? Patient reports no desire to harm self or others. Onset of symptoms was June 12, 2024. 18:08 Method Of Arrival: Wheelchair hb 18:08 Acuity: RIA 2 hb Historical: - Allergies: 18:10 Adhesives; hb 18:10 CEPHALOSPORINS; hb 18:10 TETRACYCLINES; hb 18:10 PENICILLINS; hb 18:10 Codeine; hb - PMHx: 18:10 multiple falls (hysterectomy); Hypertension; narcolepsy; Sleep Apnea; Hyperlipidemia; hb CKD; Depression; V-tach; L hip replacement; Thyroid problem; - PSHx: 18:10 Cholecystectomy; hysterectomy; hb - Immunization history:: Adult Immunizations up to date. - Infectious Disease History:: Denies. - Social history:: Smoking status: . Screenin:23 [facility] ED Fall Risk Assessment (Adult) History of falling in the last 3 months, rg5 including since admission No falls in past 3 months (0 pts) Confusion or Disorientation No (0 pts) Intoxicated or Sedated No (0 pts) Impaired Gait Yes (1 pt) Mobility Assist Device Used Yes (1 pt) Altered Elimination No (0 pt) Score/Fall Risk Level 0 - 2 = Low Risk Oriented to surroundings, Maintained a safe environment, Hourly rounding (assess needs \T\ fall precautionary measures) done. Abuse screen: Denies threats or abuse. Nutritional screening: No deficits noted. Tuberculosis screening: No symptoms or risk factors identified. Assessment: 19:20 General: Appears in no apparent distress. comfortable, Behavior is calm, cooperative. rg5 Pain: Denies pain. Neuro: Level of Consciousness is awake, alert, obeys commands, Oriented to person, place, time. Cardiovascular: Heart tones S1 S2 present Capillary refill < 3 seconds Patient's skin is warm and dry. Respiratory: Airway is patent Trachea midline Respiratory effort is even, unlabored, Respiratory pattern is regular, symmetrical, Breath sounds are clear bilaterally. GI: Abdomen is round non-distended, Abd is soft and non tender X 4 quads. : No signs and/or symptoms were reported regarding the genitourinary system. EENT: No deficits noted. Derm: Skin is intact, Skin is dry, Skin is normal, Skin temperature is warm. Musculoskeletal: Range of motion: intact in all extremities. 20:03 Reassessment: ASSISTED WITH AMBULATION PT. ABLE TO WALK FEW STEPS REPORTS FEELING DIZZY rg5 AND WEAK NOTIFIED CARE PROVIDER. Vital Signs: 18:08 BP 154 / 78; Pulse 103; Resp 20; Temp 101.9(O); Pulse Ox 98% on R/A; Weight 95.25 kg; hb Height 5 ft. 7 in. ; Pain 10/10; 19:13 BP 135 / 70; Pulse 88; Resp 17; Temp 99.6; Pulse Ox 99% on R/A; Pain 0/10; rg5 18:08 Body Mass Index 32.89 (95.25 kg, 170.18 cm) hb 18:08 Pain Scale: Adult hb 19:13 Pain Scale: Adult rg5 ED Course: 17:59 Patient arrived in ED. gm2 18:01 Ziyad Zamora, MARITA is Primary Nurse. bp 18:01 Naye Nieto FNP-C is PHCP. kb 18:01 Lizzy Villanueva MD is Attending Physician. kb 18:10 Triage completed. hb 18:12 Arm band placed on. hb 18:49 Chest Single View XRAY In Process Unspecified. EDMS 19:00 Inserted saline lock: 20 gauge in right antecubital area, using aseptic technique. rg5 Blood collected. Flushed with 10 mL NS intact. 19:10 EKG done, by ED staff. rg5 19:23 Patient has correct armband on for positive identification. Call light in reach. Side rg5 rails up X 1. Adult w/ patient. 19:27 No provider procedures requiring assistance completed. rg5 19:42 Joshua Garcia MD is Hospitalizing Provider. kb Administered Medications: 18:43 Drug: Acetaminophen PO 1000 mg PO once Route: PO; bp 19:30 Follow up: Response: No adverse reaction ha1 18:57 Drug: NS 0.9% IV 1000 ml IV at 1000 ml once Route: IV; Rate: 1000 ml; Site: right bp antecubital; 21:40 Follow up: Response: No adverse reaction; IV Status: Completed infusion; IV Intake: ha1 1000ml Medication: 19:23 VIS not applicable for this client. rg5 Intake: 21:40 IV: 1000ml; Total: 1000ml. ha1 Outcome: 19:42 Decision to Hospitalize by Provider. kb 06/15 13:57 Patient left the ED. ph Signatures: Dispatcher [employer] EDMS Naye Nieto, FARMWORKER POULTRY-C FARMWORKER POULTRY-CkZhane Rivera RN RN Rolanda Darden, RN RN Ziyad Zamora RN RN Ava Caballero, RN RN ha1 Lizzie Sanchez 2 Zach Lomax RN RN rg5 Corrections: (The following items were deleted from the chart) 06/14 19:20 19:13 BP 135 / 70; Pulse 88bpm; Resp 17bpm; Pulse Ox 99% RA; Temp 98F; rg5 rg5
[2024-06-14] MEDS ORDERED: ACETAMINOPHEN 500 MG TAB PO PRN (21:00)
[2024-06-14] MEDS: NIRMATRELVIR/RITONAVIR TABLET PO ONE (21:15)
[2024-06-14 21:36] VITALS: BMI 32.8
[2024-06-14] MEDS ORDERED: ENOXAPARIN 40 MG/0.4 ML SQ ONE (21:48)
[2024-06-14] MEDS: ENOXAPARIN 40 MG/0.4 ML SQ SCH (22:00)
[2024-06-14] MEDS: NA CHLORIDE 0.9% 1,000 ML IV SCH (22:00)
[2024-06-15] MEDS: NIRMATRELVIR/RITONAVIR TABLET PO SCH (08:05)
[2024-06-15] MEDS ORDERED: ENALAPRIL 10 MG TAB ONE (08:35)
[2024-06-15] MEDS ORDERED: DULOXETINE 30 MG CAP PO ONE (08:35)
[2024-06-15] MEDS: MONTELUKAST 10 MG TAB PO SCH (09:00)
[2024-06-15] MEDS: NEBIVOLOL HCL 5 MG TAB PO SCH (09:00)
[2024-06-15] MEDS: DULOXETINE 30 MG CAP PO SCH (09:00)
[2024-06-15] MEDS: ENALAPRIL 10 MG TAB PO SCH (09:00)
[2024-06-15 09:27] LABS: Absolute Lymphocytes (CBC) 0.6 K/uL (0.7-4.9); Absolute Monocytes 0.4 K/uL (0.1-1.3); Absolute Neutrophil 1.7 K/uL (1.8-8.0); Basophils % 0.6 % (0-1.3); Eosinophils % 0.2 % (0-4.4); Hematocrit 28.5 % (36.0-45.0); Lymphocytes % 21.6 % (15.3-44.8); MCH 27.9 pg (27.0-35.0); MCHC 31.7 g/dL (32.0-36.0); Monocytes % 14.3 % (3.3-12.3); Neutrophils % 63.3 % (41.7-73.7); Nucleated Red Blood Cells % 0.1 % (0-0); Platelets 159 thou/uL (152-406); RBC Red Blood Cell Count 3.23 M/uL (3.86-4.86); Red Cell Distribution Width 16.6 % (12.1-15.2)
[2024-06-15 09:41] LABS: Anion Gap 10.3 mEq/L (5.0-15.0); Potassium 3.3 mEq/L (3.5-5.1)
[2024-06-15 11:16] LABS: Blood Morphology Comment NOTED (NOT SEEN); Hypochromasia 2+; Platelet Estimate ADEQ; White Blood Cell Scan OK (OK)
[2024-06-15] MEDS ORDERED: LOPERAMIDE HCL 2 MG CAPSULE ONE (12:50)
[2024-06-15] MEDS: LOPERAMIDE HCL 2 MG CAPSULE PO ONE (12:53)
--- NOTE | 2024-06-15 17:06 | EKG ---
Test Date: 2024-06-14 Test Time: 19:16:02 Moss Picker: NADINE MEASUREMENT RESULTS: Intervals: Rate: 90 GA: 166 QRSD: 80 QT: 334 QTc: 408 [place]: P: 63 GA: 166 QRS: 42 T: 52 INTERPRETIVE STATEMENTS: Normal sinus rhythm Normal ECG Compared to ECG 05/20/2024 15:31:58 No significant changes Electronically Signed On 06-15-24 17:04:38 CDT by Real Blas
--- NOTE | 2024-06-16 02:17 | HP ---
Date of Admission: 06/14/2024 Chief Complaint: Weakness in legs and difficulty walking. History Of Present Illness: Ms. Hanson is a very pleasant female patient, who started to have vague complaints of not feeling good for a day or 2 days and yesterday she had difficulty ambulating becau se of generalized weakness and she was brought into emergency room. The patient was also having some low-grade fever and her COVID test was positive in emergency room. [facility]9. Because of her significant weakness and some volume depletion, the patient was given 1 L of IV fluid back and after that, she was able to get up and ambulate to the bathroom wi th difficulty, but felt somewhat better after IV fluid was given and the patient did not feel comfort able going home, which I understand because of weakness and risk of fall and injury, so she was admit holley to hospital for observation with maintenance IV fluid to be given and paxlovid was started last n ight. This morning when I saw her, she was lying in bed. Her was with her. No new complain ts or problems reported by her. Physical Examination: Vital Signs: Upon arrival to emergency room, blood pressure was 154/78, pulse 103, respiratory rate 20, temperature 101.9 degrees Fahrenheit, oxygen saturation 98%. Weight 95.25 kg, height 5 feet 7 in ches. General: Awake, alert, oriented, not in distress. HEENT: Head atraumatic, normocephalic. Conjunctivae nonerythematous. Sclerae white. Mouth, no thr ush or edema noted. Ears/Nose, no mass, lesion, discharge noted. Neck: Supple. No JVD, lymph nodes, bruit, thyromegaly noted. Lungs: Bilateral good equal air entry. Clear to auscultation. No rhonchi. No rales. Heart: Normal heart sounds, no murmur or gallop. Abdomen: Soft, bowel sounds normal. No guarding, rigidity, tenderness, mass, hepatosplenomegaly, dis tention, or bruit noted. Extremities: No leg edema. No calf tenderness. Skin: No rash, ulcer, cellulitis. Lymphatics: No lymph node enlargement in neck, supraclavicular, infraclavicular region. Neuro: No focal neurological deficit. Chest: Unremarkable. External Genitalia: Deferred. Rectal: Deferred. Laboratory Data: Her COVID-19 test was positive. White count yesterday was 3.5 with hemoglobin 10 a nd platelets 191. Sodium 138, potassium 3.6, chloride 107, bicarb 27, BUN 9, creatinine 1.31, glucos e 76. This morning, white count 2.7, hemoglobin 9, platelets 159. Sodium 140, potassium 3.3, chlori de 109, bicarb 24, BUN 11, creatinine 1.10, glucose 116. Chest x-ray was negative for any acute urena ges. Hospital Course: After the patient was evaluated in the emergency room, she was admitted to the hosp ital overnight. Maintenance IV fluid was ordered and paxlovid was ordered. The patient was given DV T prophylaxis with Lovenox. This morning after I saw her, we gave her some more IV fluid per order a nd the patient ambulated well with nursing staff and this afternoon, I communicated with nurse who in formed me that the patient is feeling much better and she feels comfortable going home, so she was di scharged to go home in improved and stable condition with following discharge medications. Discharge Medications And Instructions: 1.Continue all prior home medications. 2.Take paxlovid 2 tablets by mouth 2 times a day for 4 days as the patient has already taken 1 day o f paxlovid in the hospital. 3.After the patient was discharged from the hospital, she called office requesting some cough medica tion and benzonatate 100 mg 4 times a day as needed for cough was also called into her pharmacy. The patient to follow up at my office in 2 weeks. 4.The patient to take [id number] potassium 99 mg 1 tablet daily for 5 days. Final Diagnoses: 1.COVID-19 infection. 2.Volume depletion. 3.Generalized weakness. 4.Anemia. 5.Hypokalemia. Total time spent 90 minutes. INDER/MODL Voice ID: [id number]
[2024-06-16 02:45] VITALS: BP 135/70; TEMP 99.6; O2SAT 99
== END 2024-06-15 14:01 | disposition home or self-care (01) ==
LOC: ER 17:54 → ERHOLD 19:52
PROVIDERS: ADMIT Internal Medicine; ATTEND Internal Medicine
DX: U07.1 COVID-19 (principal); E86.9 Volume depletion, unspecified; R53.1 Weakness; D64.9 Anemia, unspecified; E87.6 Hypokalemia; E78.5 Hyperlipidemia, unspecified; I10 Essential (primary) hypertension; G47.30 Sleep apnea, unspecified; N18.9 Chronic kidney disease, unspecified; F32.A Depression, unspecified; Z91.81 History of falling; Z96.642 Presence of left artificial hip joint; Z88.0 Allergy status to penicillin; Z88.3 Allergy status to other anti-infective agents; Z88.5 Allergy status to narcotic agent
CPT/HCPCS: 93005; 87040 ×2; 85025 ×2; 80048; 36415; 85610; 83605; 85730; 80053; 87804 ×2; 71045; 87811; J1650; J8499; J7030 ×2; G0378

== ENCOUNTER 2025-01-21 17:06 | Emergency (ER) | payer BC ==
[2025-01-21 17:50] LABS: Absolute Eosinophils 0.1 K/uL (0-0.5); Absolute Lymphocytes (CBC) 1.8 K/uL (0.7-4.9); Absolute Monocytes 0.5 K/uL (0.1-1.3); Absolute Neutrophil 4.5 K/uL (1.8-8.0); Basophils % 0.3 % (0-1.3); Eosinophils % 0.8 % (0-4.4); Hematocrit 41.8 % (36.0-45.0); Hemoglobin 14.4 g/dL (12.0-15.0); Lymphocytes % 26.3 % (15.3-44.8); MCH 31.8 pg (27.0-35.0); MCHC 34.4 g/dL (32.0-36.0); MCV 92.3 fL (80-100); MPV 7.2 fL (7.6-11.3); Monocytes % 7.3 % (3.3-12.3); Neutrophils % 65.3 % (41.7-73.7); Platelets 349 thou/uL (152-406); RBC Red Blood Cell Count 4.53 M/uL (3.86-4.86)
[2025-01-21 18:09] LABS: Influenza A Ag Negative; Influenza B Ag Negative; SARS-CoV-2 Antigen Rapid Res Negative (Negative)
--- NOTE | 2025-01-21 18:22 | RAD REPORT ---
EXAMINATION: ONE VIEW CHEST XR CLINICAL INDICATION: Female, 64 years old.,CHEST PAIN TECHNIQUE: Frontal chest projection is submitted. Examination is limited by patient positioning and t echnique. COMPARISON: 06/14/2024 FINDINGS: Right Port-A-Cath and implantable rhythm monitoring device in place. The lungs are well inflated and clear apart from stable right basilar mild atelectasis and right more than left mid to lower lung chronic interstitial thickening. No pneumothorax or sizable effusion. The heart is normal in size. M ediastinal contours are unremarkable. IMPRESSION: No acute intrathoracic abnormalities. Stable findings as above.
[2025-01-21 19:06] LABS: Anion Gap 10.2 mEq/L (5.0-15.0); Potassium 4.2 mEq/L (3.5-5.1); Troponin High Sensitivity 6.7 pg/mL (<58.9)
[2025-01-21] MEDS ORDERED: NA CHLORIDE 0.9% 500 ML ONE (20:07)
[2025-01-21] MEDS ORDERED: METHYLPREDNISOLONE 125 MG INJ ONE (20:07)
[2025-01-21] MEDS ORDERED: LEVALBUTEROL 1.25 MG/3 ML NEB ONE (20:07)
[2025-01-21] MEDS ORDERED: FAMOTIDINE 20 MG/2 ML VIAL IV ONE (21:27)
[2025-01-21] MEDS ORDERED: PANTOPRAZOLE 40 MG INJ ONE (21:27)
--- NOTE | 2025-01-21 22:01 | RAD REPORT ---
EXAMINATION: US Extrem Venous W Compress Elbert CLINICAL INDICATION: [facility] MAIN PAIN Bed Name: 4 Y TECHNIQUE: Complete bilateral duplex sonography of the BILATERAL lower extremity veins was performed. The examination included compression for vein patency, color Doppler imaging and flow augmentation in response to distal compression of the distal external iliac, common femoral, femoral, popliteal, t ibial, and great and small saphenous veins. COMPARISON: No prior exam. FINDINGS: Duplex sonography testing of the veins of the BILATERAL lower extremity was performed. Color flow greg ging shows all veins to be compressible with [id number] color filling. Pulsatile and phasic flow is present within all lower extremity deep and superficial veins examined. IMPRESSION: There is no deep vein or superficial vein thrombosis.
--- NOTE | 2025-01-21 22:32 | RAD REPORT ---
EXAM: CT Chest For Pe Angio TECHNIQUE: CT angiogram of the chest was performed following intravenous contrast administration, inc luding sagittal and coronal as well as maximum intensity projection reformats. One or more of the following dose reduction techniques were used: Automated exposure control, adjustment of the mA and k V according to patient size, and iterative reconstruction. Unless otherwise specified, incidental findings do not require dedicated imaging follow-up. INDICATION: [facility] MAIN SOB COMPARISON: 04/23/2024. FINDINGS: LINES/TUBES: None. PULMONARY ARTERIES: Main pulmonary arteries are normal in caliber. No filling defects within the pul monary arteries to suggest pulmonary embolus. LUNGS AND AIRWAYS: The lungs and central airways are clear, except for stable peripheral reticular op acities and interstitial thickening throughout the lungs. PLEURA: No effusion or pneumothorax. HEART AND MEDIASTINUM: The visualized thyroid gland is normal. No mediastinal, hilar, or axillary lym phadenopathy. Heart is unremarkable. No pericardial effusion. SOFT TISSUES AND BONES: No acute osseous abnormality. No significant soft tissue finding. UPPER ABDOMEN: Calcifications of the right adrenal gland again seen. IMPRESSION: No evidence of acute central pulmonary emboli. No other acute findings. Stable peripheral pulmonary reticulation and fibrosis, could indicate sequel ae of COPD or interstitial lung disease..
--- NOTE | 2025-01-21 23:07 | ER ---
Nurse's Notes [facility] Name: Lydia Hanson Age: 64 yrs Sex: Female : 1960 Arrival Date: 01/21/2025 Time: 17:06 Bed 4 Private MD: Diagnosis: Shortness of breath;Chest pain, unspecified;Palpitations Presentation: 01/21 17:19 Chief complaint: Patient states: Intermittent chest pressure since yesterday with ld1 dizziness and shakiness. Coronavirus screen: At this time, the client does not indicate any symptoms associated with coronavirus-19. Ebola Screen: No symptoms or risks identified at this time. Initial Sepsis Screen: Does the patient meet any 2 criteria? No. Patient's initial sepsis screen is negative. Does the patient have a suspected source of infection? No. Patient's initial sepsis screen is negative. Risk Assessment: Do you want to hurt yourself or someone else? Patient reports no desire to harm self or others. Onset of symptoms was January 21, 2025. 17:19 Method Of Arrival: Wheelchair ld1 17:19 Acuity: RIA 2 ld1 Triage Assessment: 17:20 General: Appears in no apparent distress. comfortable, Behavior is calm, cooperative, ld1 appropriate for age. Pain: Denies pain. EENT: No signs and/or symptoms were reported regarding the EENT system. Neuro: Level of Consciousness is awake, alert, obeys commands, Oriented to person, place, time, situation, Appropriate for age. Cardiovascular: Capillary refill < 3 seconds Patient's skin is warm and dry. Rhythm is sinus tachycardia. Respiratory: Airway is patent Respiratory effort is even, unlabored. GI: Abdomen is round non-distended. : No signs and/or symptoms were reported regarding the genitourinary system. Derm: No signs and/or symptoms reported regarding the dermatologic system. Musculoskeletal: No signs and/or symptoms reported regarding the musculoskeletal system. Historical: - Allergies: 17:20 Codeine; ld1 17:20 CEPHALOSPORINS; ld1 17:20 PENICILLINS; ld1 17:20 TETRACYCLINES; ld1 17:20 Adhesives; ld1 - PMHx: 17:20 Thyroid problem; narcolepsy; V-tach; multiple falls (hysterectomy); Sleep Apnea; ld1 Hyperlipidemia; L hip replacement; CKD; Depression; Hypertension; - PSHx: 17:20 Cholecystectomy; hysterectomy; ld1 - Immunization history:: Adult Immunizations up to date. - Infectious Disease History:: Denies. - Social history:: Smoking status: Patient denies any tobacco usage or history of. Screenin:31 [facility] ED Fall Risk Assessment (Adult) History of falling in the last 3 months, bm8 including since admission Yes- single mechanical fall (1 pt) Confusion or Disorientation No (0 pts) Intoxicated or Sedated No (0 pts) Impaired Gait No (0 pts) Mobility Assist Device Used No (0 pt) Altered Elimination No (0 pt) Score/Fall Risk Level 0 - 2 = Low Risk Oriented to surroundings, Maintained a safe environment, Educated pt \T\ family on fall prevention, incl call for assistance when getting out of bed, Assessed \T\ reinforced patient's understanding of fall precautions, Hourly rounding (assess needs \T\ fall precautionary measures) done, Used ambulatory aids as needed (educated on \T\ assisted with), Used gait belt as appropriate. Abuse screen: Denies threats or abuse. Nutritional screening: No deficits noted. Tuberculosis screening: No symptoms or risk factors identified. Assessment: 19:30 Reassessment: Patient appears in no apparent distress at this time. Patient and/or bm8 family updated on plan of care and expected duration. Pain level reassessed. Patient is alert, oriented x 3, equal unlabored respirations, skin warm/dry/pink. General: Appears in no apparent distress. comfortable, Behavior is calm, cooperative, appropriate for age. 19:31 Pain: Denies pain. Neuro: No deficits noted. Level of Consciousness is awake, alert, bm8 obeys commands, Oriented to person, place, time, situation, Appropriate for age. Neuro: Reports dizziness, with increased activity. Cardiovascular: Denies chest pain, Heart tones S1 S2 present Capillary refill < 3 seconds in bilateral fingers Patient's skin is warm and dry. Rhythm is atrial fibrillation. Respiratory: Airway is patent Trachea midline Respiratory effort is even, unlabored, Respiratory pattern is regular, symmetrical, Breath sounds are clear bilaterally. GI: No signs and/or symptoms were reported involving the gastrointestinal system. : No signs and/or symptoms were reported regarding the genitourinary system. EENT: No signs and/or symptoms were reported regarding the EENT system. 21:22 Reassessment: Patient appears in no apparent distress at this time. Patient and/or bm8 family updated on plan of care and expected duration. Pain level reassessed. Patient is alert, oriented x 3, equal unlabored respirations, skin warm/dry/pink. reports heart burn and requesting something for that. provider informed and awaiting new orders Patient states feeling better. Patient states symptoms have improved. 21:47 Reassessment: pt assisted to restroom for elimination needs. bm8 22:51 Reassessment: Patient appears in no apparent distress at this time. Patient and/or bm8 family updated on plan of care and expected duration. Pain level reassessed. Patient is alert, oriented x 3, equal unlabored respirations, skin warm/dry/pink. pt reports after medication heart burn is gone Patient denies pain at this time. Patient states feeling better. Patient states symptoms have improved. Pain: Denies pain. 23:00 Reassessment: ambulated pt approx 100 ft. pt was able to maintain 95% or above O2 bm8 saturation during ambulation. Vital Signs: 17:19 BP 156 / 102; Pulse 120; Resp 18; Temp 98.1(TE); Pulse Ox 98% on R/A; Weight 92.99 kg; ld1 Height 5 ft. 7 in. ; Pain 0/10; 19:31 BP 108 / 64; Pulse 87; Resp 20; Temp 98.1; Pulse Ox 93% ; Pain 0/10; bm8 21:22 BP 116 / 67; Pulse 95; Resp 20; Temp 98.1; Pulse Ox 97% ; Pain 5/10; bm8 22:51 BP 121 / 66; Pulse 94; Resp 18; Temp 98.1; Pulse Ox 96% ; Pain 0/10; bm8 17:19 Body Mass Index 32.11 (92.99 kg, 170.18 cm) ld1 17:19 Pain Scale: Adult ld1 19:31 Pain Scale: Adult bm8 21:22 Pain Scale: Adult bm8 22:51 Pain Scale: Adult bm8 [place] Coma Score: 19:31 Eye Response: spontaneous(4). Motor Response: obeys commands(6). Verbal Response: bm8 oriented(5). Total: 15. 21:22 Eye Response: spontaneous(4). Motor Response: obeys commands(6). Verbal Response: bm8 oriented(5). Total: 15. 22:51 Eye Response: spontaneous(4). Motor Response: obeys commands(6). Verbal Response: bm8 oriented(5). Total: 15. ED Course: 17:08 Patient arrived in ED. mr 17:20 Cipriano Hernandez PA is PHCP. cp 17:20 Michi Diaz MD is Attending Physician. cp 17:20 Triage completed. ld1 17:20 Arm band placed on right wrist. ld1 17:46 Initial lab(s) drawn, by me, sent to lab. EKG done, by ED staff, reviewed by Cipriano leger4 PA. Inserted saline lock: 20 gauge in right antecubital area, using aseptic technique. Blood collected. Flushed with 10 mL NS. 18:13 XRAY Chest (1 view) In Process Unspecified. EDMS 19:30 Nigel Holt, RN is Primary Nurse. bm8 19:31 Patient has correct armband on for positive identification. Placed in gown. Bed in low bm8 position. Call light in reach. Side rails up X 1. Adult w/ patient. Client placed on continuous cardiac and pulse oximetry monitoring. NIBP monitoring applied. loaders on. Pulse ox on. NIBP on. Door closed. Noise minimized. Warm blanket given. Pillow given. Head of bed elevated. 19:31 No provider procedures requiring assistance completed. Patient maintains SpO2 bm8 saturation greater than 95% on room air. 20:07 D-Dimer Sent. vk 20:07 Initial lab(s) drawn, by me, sent to lab. vk 20:53 US Extremity Venous W Compression Elbert In Process Unspecified. EDMS 21:24 Troponin High Sensitivity Sent. vk 21:31 CT Chest For PE Angio In Process Unspecified. EDMS 21:47 EKG done, by ED staff, reviewed by Cipriano MARTINEZ. bm8 23:06 Joshua Garcia MD is Referral Physician. cp 23:26 Provided Education on: post er care, follow up with cardiology. bm8 23:26 IV discontinued, intact, bleeding controlled, No redness/swelling at site. Pressure bm8 dressing applied. Administered Medications: 20:13 Drug: MethylPrednisoLONE IVP 125 mg IVP once Route: IVP; Site: right antecubital; lg3 20:23 Follow up: Response: No adverse reaction bm8 20:14 Drug: Levalbuterol Inhalation 1.25 mg Inhalation once Route: Inhalation; lg3 22:53 Follow up: Response: No adverse reaction bm8 20:14 Drug: NS 0.9% IV 500 ml 500 ml IV at 1 bolus once; to be given as a bolus over 30 lg3 minutes Volume: 500 ml; Route: IV; Rate: 1 bolus; Site: right antecubital; 22:52 Follow up: Response: No adverse reaction; IV Status: Completed infusion bm8 21:47 Drug: Pantoprazole IVP 40 mg IVP once Route: IVP; Site: right antecubital; bm8 22:52 Follow up: Response: No adverse reaction bm8 21:47 Drug: Famotidine IVP 20 mg IVP once; dilute with 10 mL 0.9% NaCl; give over 2 minutes bm8 Route: IVP; Site: right antecubital; 22:52 Follow up: Response: No adverse reaction bm8 Medication: 19:31 VIS not applicable for this client. bm8 Outcome: 23:06 Discharge ordered by . la 23:26 Discharged to home ambulatory, with family, bm8 23:26 Condition: stable 23:26 Discharge instructions given to patient, family, Instructed on discharge instructions, follow up and referral plans. Demonstrated understanding of instructions, follow-up care, medications, 23:28 Prescriptions given X 3, bm8 23:33 Patient left the ED. bm8 Signatures: Dispatcher [employer] EDMS Lydia Raines, Reg Reg mr Cipriano Hernandez PA PA cp Able, Lacie, RN RN lg3 Halie Rios RN RN ld1 Nanci Franklin Brad, RN RN bm8 Tressa Moore [id number] Corrections: (The following items were deleted from the chart) 19:33 19:30 Pain: Denies pain. Pain does not radiate. Pain began bm8 bm8
--- NOTE | 2025-01-21 23:07 | EDPHYS ---
Physician Documentation [facility] Name: Lydia Hanson Age: 64 yrs Sex: Female : 1960 Arrival Date: 01/21/2025 Time: 17:06 Bed 4 Private MD: ED Physician Michi Diaz HPI: 01/21 17:30 This 64 yrs old Female presents to ER via Wheelchair with complaints of Chest Pressure, cp Shortness Of Breath. 17:30 The patient has shortness of breath with light activity. cp 17:30 The patient or guardian reports chest pain that is located primarily in the anterior cp chest wall. 17:30 Onset: The symptoms/episode began/occurred yesterday. cp 17:30 Associated signs and symptoms: Pertinent positives: dizziness, shakiness, Pertinent cp negatives: productive cough, diaphoresis, fever, hemoptysis, vomiting. The chest pain is described as a pressure. Historical: - Allergies: 17:20 Codeine; ld1 17:20 CEPHALOSPORINS; ld1 17:20 PENICILLINS; ld1 17:20 TETRACYCLINES; ld1 17:20 Adhesives; ld1 - PMHx: 17:20 Thyroid problem; narcolepsy; V-tach; multiple falls (hysterectomy); Sleep Apnea; ld1 Hyperlipidemia; L hip replacement; CKD; Depression; Hypertension; - PSHx: 17:20 Cholecystectomy; hysterectomy; ld1 - Immunization history:: Adult Immunizations up to date. - Infectious Disease History:: Denies. - Social history:: Smoking status: Patient denies any tobacco usage or history of. ROS: 17:35 Constitutional: Negative for body aches, chills, fever, poor PO intake, cp 17:35 Eyes: Negative for injury, pain, redness, and discharge, cp 17:35 ENT: Negative for drainage from ear(s), ear pain, sore throat, difficulty swallowing, difficulty handling secretions, 17:35 Cardiovascular: Positive for chest pain, Negative for edema, palpitations, 17:35 Respiratory: Positive for shortness of breath, on exertion. Negative for cough, wheezing, 17:35 Abdomen/GI: Negative for abdominal pain, vomiting, diarrhea, constipation, 17:35 Neuro: Negative for altered mental status, dizziness, headache, syncope, near syncope, weakness, 17:35 All other systems are negative, Exam: 17:30 ECG was reviewed by the Attending Physician. cp 17:38 Constitutional: The patient appears in no acute distress, alert, awake, cp non-diaphoretic, non-toxic, well developed, well nourished, 17:38 Head/Face: Normocephalic, atraumatic. cp 17:38 Eyes: Periorbital structures: appear normal, Conjunctiva: normal, no exudate, no injection, Sclera: no appreciated abnormality, Lids and lashes: appear normal, bilaterally, 17:38 ENT: External ear(s): are unremarkable, Nose: is normal, Mouth: Lips: moist, Oral mucosa: moist, Posterior pharynx: Airway: no evidence of obstruction, patent, 17:38 Neck: ROM/movement: is normal, is supple, without pain, no range of motions limitations, no nuchal rigidity, 17:38 Chest/axilla: Inspection: normal, 17:38 Cardiovascular: Rate: tachycardic, Rhythm: regular, Edema: is not appreciated, JVD: is not appreciated, 17:38 Respiratory: the patient does not display signs of respiratory distress, Respirations: labored breathing, is not present, shallow respirations, that is mild, Breath sounds: decreased breath sounds, that are mild, throughout, stridor, is not appreciated, wheezing: is not appreciated, 17:38 Abdomen/GI: Inspection: abdomen appears normal, Palpation: abdomen is soft and non-tender, in all quadrants, 17:38 Back: ROM is normal, 17:38 Neuro: Orientation: to person, place \T\ time. Mentation: is normal, Motor: moves all fours, strength is normal, Sensation: no obvious gross deficits, Gait: is steady, 21:47 ECG was reviewed by the Attending Physician. cp Vital Signs: 17:19 BP 156 / 102; Pulse 120; Resp 18; Temp 98.1(TE); Pulse Ox 98% on R/A; Weight 92.99 kg; ld1 Height 5 ft. 7 in. ; Pain 0/10; 19:31 BP 108 / 64; Pulse 87; Resp 20; Temp 98.1; Pulse Ox 93% ; Pain 0/10; bm8 21:22 BP 116 / 67; Pulse 95; Resp 20; Temp 98.1; Pulse Ox 97% ; Pain 5/10; bm8 22:51 BP 121 / 66; Pulse 94; Resp 18; Temp 98.1; Pulse Ox 96% ; Pain 0/10; bm8 17:19 Body Mass Index 32.11 (92.99 kg, 170.18 cm) ld1 17:19 Pain Scale: Adult ld1 19:31 Pain Scale: Adult bm8 21:22 Pain Scale: Adult bm8 22:51 Pain Scale: Adult bm8 [place] Coma Score: 19:31 Eye Response: spontaneous(4). Motor Response: obeys commands(6). Verbal Response: bm8 oriented(5). Total: 15. 21:22 Eye Response: spontaneous(4). Motor Response: obeys commands(6). Verbal Response: bm8 oriented(5). Total: 15. 22:51 Eye Response: spontaneous(4). Motor Response: obeys commands(6). Verbal Response: bm8 oriented(5). Total: 15. MDM: 17:31 Medical Screening Exam initiated 18:30 Differential diagnosis: Anemia asthma, Bronchitis CHF exacerbation, Chronic Obstructive cp Pulmonary Disease abnormal EKG, acute myocardial infarction, Myocardial Infarction pneumonia, Pneumothorax pulmonary edema, Pulmonary Embolism. 23:05 Data reviewed: vital signs, nurses notes, lab test result(s), EKG, radiologic studies, cp CT scan, plain films, and as a result, I will discharge patient. 23:05 I considered the following discharge prescriptions or medication management in the emergency department Medications were administered in the Emergency Department. See MAR. 23:05 Consideration of Admission/Observation Escalation of care including admission/observation considered. Independent interpretation of the following test(s) in the Emergency Department EKG: See my EKG interpretation above. Care significantly affected by the following chronic conditions: Hypertension. Counseling: I had a detailed discussion with the patient and/or guardian regarding the historical points, exam findings, and any diagnostic results supporting the discharge/admit diagnosis, lab results, radiology results, to return to the emergency department if symptoms worsen or persist or if there are any questions or concerns that arise at home. Response to treatment: the patient's symptoms have markedly improved after treatment, and as a result, I will discharge patient. Special discussion: Based on the patient's history, exam, and Dx evaluation, there is no indication for emergent intervention or inpatient Tx. It is understood by the patient/guardian that if the Sx's persist or worsen they need to return immediately for re-evaluation. 01/21 17:23 Order name: Basic Metabolic Panel; Complete Time: 19:51 ld01/21 19:51 Interpretation: Normal except: NA 133; GLUC 117; CRE 1.59; GFR 36. cp 01/21 17:23 Order name: CBC with Diff; Complete Time: 19:51 ld01/21 19:52 Interpretation: Normal except: RDW 18.0; MPV 7.2. cp 01/21 17:23 Order name: Troponin HS; Complete Time: 19:51 ld01/21 17:32 Order name: BNP; Complete Time: 19:51 cp 01/21 17:32 Order name: Magnesium; Complete Time: 19:51 cp 01/21 17:32 Order name: COVID-19 Ag + Flu A+B Ag; Complete Time: 19:51 cp 01/21 19:54 Order name: D-Dimer; Complete Time: 20:56 cp 01/21 20:56 Interpretation: Reviewed. cp 01/21 20:57 Order name: Troponin High Sensitivity; Complete Time: 21:51 cp 01/21 21:52 Interpretation: Reviewed. cp 01/21 17:23 Order name: XRAY Chest (1 view); Complete Time: 19:51 ld01/21 19:53 Order name: US Extremity Venous W Compression Elbert; Complete Time: 22:39 cp 01/21 22:39 Interpretation: Report reviewed. cp 01/21 20:57 Order name: CT Chest For PE Angio; Complete Time: 22:39 cp 01/21 22:40 Interpretation: Report reviewed. cp 01/21 17:23 Order name: EKG; Complete Time: 17:24 01/21 17:23 Order name: Cardiac monitoring; Complete Time: 19:30 ld01/21 17:23 Order name: EKG - Nurse/Tech; Complete Time: 17:24 ld01/21 17:23 Order name: IV Saline Lock; Complete Time: 17:46 01/21 17:23 Order name: Labs collected and sent; Complete Time: 17:46 01/21 17:23 Order name: O2 Per Protocol; Complete Time: 19:30 01/21 17:23 Order name: O2 Sat Monitoring; Complete Time: 19:30 ld01/21 20:57 Order name: EKG - Nurse/Tech; Complete Time: 21:46 cp EC:30 Rate is 113 beats/min. Rhythm is regular. NV interval is normal. QRS interval is cp normal. QT interval is normal. T waves are Inverted in lead aVR. Interpreted by me. Reviewed by me. 21:47 Rate is 93 beats/min. Rhythm is regular. NV interval is normal. QRS interval is normal. cp QT interval is normal. T waves are Inverted in leads aVR, V2. Interpreted by me. Reviewed by me. Administered Medications: 20:13 Drug: MethylPrednisoLONE IVP 125 mg IVP once Route: IVP; Site: right antecubital; lg3 20:23 Follow up: Response: No adverse reaction bm8 20:14 Drug: Levalbuterol Inhalation 1.25 mg Inhalation once Route: Inhalation; lg3 22:53 Follow up: Response: No adverse reaction bm8 20:14 Drug: NS 0.9% IV 500 ml 500 ml IV at 1 bolus once; to be given as a bolus over 30 lg3 minutes Volume: 500 ml; Route: IV; Rate: 1 bolus; Site: right antecubital; 22:52 Follow up: Response: No adverse reaction; IV Status: Completed infusion bm8 21:47 Drug: Pantoprazole IVP 40 mg IVP once Route: IVP; Site: right antecubital; bm8 22:52 Follow up: Response: No adverse reaction bm8 21:47 Drug: Famotidine IVP 20 mg IVP once; dilute with 10 mL 0.9% NaCl; give over 2 minutes bm8 Route: IVP; Site: right antecubital; 22:52 Follow up: Response: No adverse reaction bm8 Disposition Summary: 01/21/25 23:06 Discharge Ordered Notes: Location: Home cp Problem: new cp Symptoms: have improved cp Condition: Stable cp Diagnosis - Shortness of breath cp - Chest pain, unspecified cp - Palpitations cp Followup: cp - With: Joshua Garcia MD - When: 5 - 6 days - Reason: Recheck today's complaints Discharge Instructions: - Discharge Summary Sheet cp - Nonspecific Chest Pain, Adult cp - Palpitations cp - Shortness of Breath, Adult cp - Aspirin and Your Heart cp Forms: - Medication Reconciliation Form cp - Antibiotic Education cp - Prescription Opioid Use cp - Patient Portal Instructions cp - Leadership Thank You Letter cp Prescriptions: - NEBULIZER MACHINE - nebulize 1 ampule NEBULIZATION route every 6-8 hours; 1 unit; Refills: 0, cp Product Selection Permitted - Albuterol Sulfate 2.5 mg /3 mL (0.083 %) Inhalation Solution for Nebulization - inhale 1 unit NEBULIZATION route every 8 hours As needed; 1 unit; Refills: 0, cp Product Selection Permitted - Medrol (Jethro) 4 mg Oral Tablets, Dose Pack - take 1 tablet ORAL route as directed - follow package instructions; 1 packet; cp Refills: 0, Product Selection Permitted Signatures: Dispatcher [employer] EDMS Cipriano Hernandez PA PA cp Able, Lacie, RN RN lg3 Halie Rios, RN RN ld1 Nigel Holt, RN RN bm8 Corrections: (The following items were deleted from the chart) 17:24 17:24 BASIC METABOLIC PANEL+C.LAB.BRZ ordered. EDMS EDMS 17:24 17:24 CBC+H.LAB.BRZ ordered. EDMS EDMS 17:24 17:24 Troponin High Sensitivity+C.LAB.BRZ ordered. EDMS EDMS 20:58 20:58 Troponin High Sensitivity+C.LAB.BRZ ordered. EDMS EDMS
[2025-01-21 23:51] VITALS: TEMP 98.1
[2025-01-21 23:55] VITALS: BP 121/66; O2SAT 96
== END 2025-01-21 23:33 | disposition home or self-care (01) ==
LOC: ER 17:06
DX: R06.02 Shortness of breath (principal); R07.89 Other chest pain; R00.2 Palpitations; I10 Essential (primary) hypertension; Z11.52 Encounter for screening for COVID-19
CPT/HCPCS: 96361; 85025; 80048; 36415; 83735; 85379; 84484 ×2; 83880; 71275; 71045; 93970; 96375; 96374; 99285; 87428; Q9967; J7614; J2470; J2919; J7040; 93005